=== PATIENT | male | born 1935 | race Caucasian/White ===

== ENCOUNTER 2023-06-15 05:50 | Outpatient (REF) | payer MEDICARE, SELFPAY ==
[2023-06-15 09:29] LABS: Estimated Average Glucose 220 mg/dL; Glycohemoglobin A1C 9.3 % (4.5-6.2)
[2023-06-15 10:01] LABS: Anion Gap 10.9; BUN Creatinine Ratio 14.6; Calcium 9.6 mg/dL (8.5-10.1); Carbon Dioxide 29.6 mmol/L (21.0-32.0); Chloride 103 mmol/L (98-107); Chol HDL Ratio 3.6; Cholesterol 137 mg/dL (<=200); Estimated GFR (African America 49 (>=60); Estimated GFR (Non-African Ame 40 (>=60); Glucose 263 mg/dL (74-106); HDL Cholesterol 38 mg/dL (40-60); Potassium 3.5 mmol/L (3.5-5.1); Sodium 140 mmol/L (136-145); Thyroid Stimulating Hormone 6.897 uIU/mL (0.358-3.740); Triglycerides 157 mg/dL (<=150); VLDL CHOLESTEROL 31.4 mg/dL
== END 2023-06-15 05:51 | disposition home or self-care (01) ==
LOC: LAB 05:50
DX: I50.32 Chronic diastolic (congestive) heart failure (principal); E11.22 Type 2 diabetes mellitus with diabetic chronic kidney disease; I48.20 Chronic atrial fibrillation, unspecified; N18.30 Chronic kidney disease, stage 3 unspecified; D50.0 Iron deficiency anemia secondary to blood loss (chronic)
CPT/HCPCS: 36415; 80048; 80061; 82306; 83036; 84443

== ENCOUNTER 2023-07-29 01:52 | Outpatient (REF) | payer MEDICARE, SELFPAY ==
--- OUTSIDE RECORDS SUMMARY | 2023-07-29 01:57 | XMS_ITS | CCD ---
Author Name Unknown Address [address] [employer] division of [employer] [facility] [address] [place] [address] Organization [facility] Care Team Providers Care Italian Tutor Name Role Phone Pastor, Talia Stipe Primary Care Provider SHARIFA MENON Referring Unavailable PASTOR, TALIA STIPE Primary Care Unavailable PASTOR, TALIA STIPE Referring Unavailable PASTOR, TALIA STIPE Primary Care Unavailable SHARIFA MENON Referring Unavailable PASTOR, TALIA STIPE Primary Care Unavailable ALLYSSAGUSHARIFA HALE Referring Unavailable PASTOR, TALIA STIPE Primary Care Unavailable PASTOR, TALIA STIPE Referring Unavailable PASTOR, TALIA STIPE Primary Care Unavailable ELIZABETH HERNANDEZ Referring Unavailable PASTOR, TALIA STIPE Primary Care Unavailable ERICAUSELIZABETH CHAPA Referring Unavailable PASTOR, TALIA STIPE Primary Care Unavailable ELIZABETH HERNANDEZ Referring Unavailable PASTOR, TALIA STIPE Primary Care Unavailable ERICAUSELIZABETH CHAPA K Referring Unavailable PASTOR, TALIA STIPE Primary Care Unavailable PASTOR, TALIA STIPE Referring Unavailable PASTOR, TALIA STIPE Primary Care Unavailable DA BAINSLEOBARDO KENDALL Referring Unavaila ble PASTOR, TALIA STIPE Primary Care Unavailable DA BAINS-LEOBARDO STEVENS Attending Unavaila ble DA BAINS-LEOBARDO STEVENS Referring Unavaila ble PASTOR, TALIA STIPE Primary Care Unavailable REBECA ORELLANA Attending Unavailable REBECA ORELLANA Referring Unavailable PASTOR, TALIA STIPE Primary Care Unavailable PASTOR, TALIA STIPE Primary Care Unavailable PASTOR, TALIA STIPE Consulting Unavailable PASTOR, TALIA STIPE Admitting Unavailable PASTOR, TALIA STIPE Attending Unavailable ELIZABETH HERNANDEZ Consulting Unavailable PASTOR, TALIA STIPE Primary Care Unavailable PASTOR, TALIA STIPE Consulting Unavailable PASTOR, TALIA STIPE Admitting Unavailable TALIA PASTOR Attending Unavailable ANDREW DUNCAN Consulting Unavailable GURU ARRIAGA Consulting Unavailable JAVIER DEVRIES Attending Unavailable TALIA PASTOR Primary Care Unavailable TALIA PASTOR Primary Care Unavailable JOSH HESS Attending Unavailable TALIA PASTOR Consulting Unavailable Allergies Allergy Classification Reported Allergen(s) Allergy Type Date of Onset Reaction(s) Facility (3 sources) diphenhydrAMINE Drug Allergy 04-19-2012 [place], [place] Medications Current Medications Medication Drug Class(es) Dates Sig (Normalized) Sig (Original) acetaminophen 325 mg oral tablet (4 sources) Start: 03-07-2019 650 mg, Oral, EVERY 4 HOURS PRN, Pain Mild (1-3), Fever, For temp greater than 100.5 F (38 C), Starting Tue03/07/19 at 2122 Maximum dose of acetaminophen is 4000 mg from all sources in 24 hours. take 2 tablets by [facility] every four hours as needed for fever acetaminophen (TYLENOL) 325 MG tablet Ta ke 650 mg by mouth every 4 hours as needed for Fever 0 Active albuterol 0.83 mg/ml inhalant solution (1 source) beta2-Adrenergic Agonist Start: 03-08-2019 2.5 mg, Nebulization, EVERY 4 HOURS WHILE AWAKE, First dose on Jenn 03/08/19 at 0800 atorvastatin 40 mg oral tablet (5 sources) HMG-CoA Reductase Inhibitor Start: 10-31-2017 End: 03-07-2019 take 40 mg by mouth once daily 40 mg, Oral, DAILY, First dose on Jenn 03/08/19 at 0900 ciprofloxacin 250 mg oral tablet (3 sources) Quinolone Antimicrobial Start: 03-10-2019 End: 03-17-2019 take 1 tablet by mouth every twelve hours ciprofloxacin (CIPRO) 250 MG tablet Take 1 tablet by mouth every 12 hours for 7 days 14 tablet 0 03/10/2019 03/17/2019 Active Start: 03-10-2019 ciprofloxacin (CIPRO) tablet 250 mg 24 hr dilTIAZem hydrochloride 240 mg extended release oral capsule (5 sources) Calcium Channel Gregg Start: 05-12-2015 End: 03-07-2019 take 240 mg by mouth once daily 240 mg, Oral, DAILY, First dose on Jenn 03/08/19 at 0900 Do not crush or break. take 1 tablet by mouth four time s daily diltiazem (CARDIZEM) 60 MG tablet Take 60 mg by mouth 4 times daily 0 Active doxazosin 2 mg oral tablet (3 sources) alpha-Adrenergic Gregg take 1 tablet by mouth once daily doxazosin (CARDURA) 2 MG tablet Take 2 mg by mouth nightly 0 Active finasteride 5 mg oral tablet (4 sources) 5-alpha Reductase Inhibitor Start: 10-20-19 take 1 tablet by mouth once daily finasteride (PROSCAR) 5 MG tablet Take 5 mg by mouth daily 10/19/2018 Active furosemide 40 mg oral tablet (5 sources) Loop Diuretic Start: 12-14-19 End: 03-07-20 take 40 mg by mouth once daily 40 mg, Oral, DAILY, First dose on Jenn 03/08/19 at 0900 take 1 tablet by mouth twice rica ly furosemide (LASIX) 40 MG tablet Take 40 mg by mouth 2 times daily 0 Active take 1 tablet by mouth three marcos es daily furosemide (LASIX) 40 MG tablet Take 40 mg by mouth 3 times daily 0 Active glucagon (rdna) 1 mg injection (1 source) Antihypoglycemic Agent Start: 03-07-2019 take 1 mL intravenous route every hour 1 mg, Intramuscular, PRN, Low blood sugar, Blood glucose less than 70 mg/dL and patient NOT ALERT or NPO and does not have IV access., Starting Tue03/07/19 at 2122 After administration, attempt intravenous access and start D5W at 100 mL/hr. Repeat blood glucose in 15 minutes x2 and notify provider. 150 ml glucose 50 mg/ml injection (3 sources) Start: 03-07-2019 15 g, Oral, PRN, Low blood sugar, Starting Tue03/07/19 at 2122 If blood glucose less than 50 mg/dL and patient ALERT and TOLERATING PO, give 2 tubes glucose gel. If blood glucose less than 70 mg/dL and patient ALERT and TOLERATING PO, give 1 tube glucose gel. Repeat blood glucose in 15 minutes. If blood glucose is less than 70 mg/dL, repeat treatment and recheck blood glucose in 15 minutes x2 and notify provider. Start: 03-07-2019 12.5 g, Intrav enous, PRN, Low blood sugar, Blood glucose less than 70 mg/dL and patient NOT ALERT or NPO., Starting Tue03/07/19 at 2122 If patient does not respond within 5 minutes, repeat dose x1. Start D5W at 100 mL/hour until ordering provider can be reached. Repeat blood glucose in 15 minutes. If blood glucose is less than 70 mg/dL, repeat treatment and recheck blood glucose in 15 minutes x2. If using Glucostabilizer, dose as instructed per system. Start: 03-07-2019 100 mL/hr, Int ravenous, at 100 mL/hr, PRN, Low blood sugar, Starting Tue03/07/19 at 2122 Start infusion following administration of dextrose 50% or glucagon. 12 hr guaiFENesin 600 mg extended release oral tablet (3 sources) take 1 tablet by mouth once daily guaiFENesin (MUCINEX) 600 MG extended release tablet Take 600 mg by mouth daily 0 Active insulin glargine 100 unt/ml injectable solution (9 sources) Insulin Analog Start: 9 inject 10 [IU] by subcutaneous injection once daily in the morning 10 Units, Subcutaneous, EVERY MORNING, First dose on Tue03/08/19 at 0900 Substituted for Insulin glargine U-300 (TOUJEO SOLOSTAR). Start: 03-07-2019 inject 8 [IU] by sub cutaneous injection once daily 8 Units, Subcutaneous, NIGHTLY, First dose on Tue03/07/19 at 2145 Start: 01-20-2018 End: 03-07-2019 insulin glargine (TOUJEO KB OSTAR) 300 UNIT/ML injection pen 10 units am, 8 units bedtime 3 pen 11 01/20/2018 03/07/2019 Discontinued (DOSE ADJUSTMENT) insulin glargine (TOUJEO MAX SOLOSTAR) 300 UNIT/ML injection pen Inject 13 Units into the skin nightly 0 Active insulin glargine (TOUJEO SOLOSTAR) 300 UNIT/ML injection pen Inject 18 Units into the skin every morning 0 Active insulin lispro 100 unt/ml injectable solution (2 sources) Insulin Analog Start: 03-08-2019 0-6 Units, Sub cutaneous, 3 TIMES DAILY WITH MEALS, First dose on Tue03/08/19 at 0800 Low Dose Correction Algorithm Glucose: Dose: 70-139 No Insulin 140-199 1 Unit 200-249 2 Units 250-299 3 Units 300-349 4 Units 350-399 5 Units 400 and above 6 Units Start: 03-07-2019 0-3 Units, Subcutaneous, NIG HTLY, First dose on Tue03/07/19 at 2145 If continuous tube feedings/TPN/NPO, give correction dose based on result, no reduction in dose. If eating or bolus tube feeding: Low Dose Bedtime Correction Algorithm Glucose: Dose: 70- 139 No Insulin 140-249 1 Unit 250-349 2 Units 350 and above 3 Units linagliptin 5 mg oral tablet (1 source) Dipeptidyl Peptidase 4 Inhibitor Start: 03-08-2019 take 5 mg by mouth once daily 5 mg, Oral, DAILY, First dose on Tue03/08/19 at 0900 Substituted for SITagliptin (JANUVIA). lisinopril 20 mg oral tablet (5 sources) Angiotensin Converting Enzyme Inhibitor Start: 03-08-2019 take 40 mg by mouth once daily 40 mg, Oral, DAILY, First dose on Tue03/08/19 at 0900 Start: 04-25-2017 End: 03-07-2019 take 1 tablet by mouth once daily lisinopril (PRINIVIL;ZESTRIL) 40 MG tablet TAKE 1 TABLET BY MOUTH DAILY 90 tablet 3 04/25/2017 03/07/2019 Discontinued (DOSE ADJUSTMENT) take 1 tablet by bette th once daily lisinopril (PRINIVIL;ZESTRIL) 30 MG tablet Indications: hold for SBP Take 30 mg by mouth daily Indications: hold for SBP 0 Active magnesium hydroxide 80 mg/ml oral suspension (1 source) Start: 03-07-2019 take 30 mL by mouth once daily as needed for constipation 30 mL, Oral, DAILY PRN, Constipation, Starting Tue03/07/19 at 2122 First line therapy for constipation. magnesium oxide 400 mg oral tablet (4 sources) Start: 03-08-2019 take 400 mg by mouth once daily 400 mg, Oral, DAILY, First dose on Jenn 03/08/19 at 0900 Start: 02-15-2018 take 1 tablet by bette th once daily MAGNESIUM-OXIDE 400 (241.3 Mg) MG TABS tablet Indications: Hypomagnesemia TAKE 1 TABLET BY MOUTH DAILY 30 tablet 11 02/15/2018 Active 24 hr metoprolol succinate 100 mg extended release oral tablet (4 sources) beta-Adrenergic Gregg Start: 07-27-2017 take 1 tablet by mouth once daily metoprolol succinate (TOPROL XL) 100 MG extended release tablet TAKE 1 TABLET BY MOUTH DAILY 90 tablet 3 07/27/2017 Active mirtazapine 30 mg oral tablet (3 sources) take 1 tablet by mouth once daily mirtazapine (REMERON) 30 MG tablet Take 30 mg by mouth nightly 0 Active 2 ml ondansetron 2 mg/ml injection (1 source) Serotonin-3 Receptor Antagonist Start: 03-07-2019 4 mg, Intravenous, EVERY 6 HOURS PRN, Nausea, Starting Tue03/07/19 at 2121 microencapsulated potassium chloride 20 meq extended release oral tablet (4 sources) take 1 tablet by mouth once daily, then take 1 tablet by mouth potassium chloride (KLOR-CON M) 20 MEQ extended release tablet Take 20 mEq by mouth daily 0 Active End: 03-27-2019 take 20 mEq by mouth once daily potassium chloride (KLOR-CON) 20 MEQ packet Take 20 mEq by mouth daily 0 03/27/2019 Discontinued (Alternate therapy) SITagliptin 50 mg oral tablet (3 sources) Dipeptidyl Peptidase 4 Inhibitor Start: 10-26-2018 take 1 tablet by mouth once daily SITagliptin (JANUVIA) 50 MG tablet Take 1 tablet by mouth daily 90 tablet 3 10/26/2018 Active 3 ml sodium chloride 9 mg/ml injection (2 sources) Start: 03-07-2019 10 mL, Intravenous, EVERY 12 HOURS SCHEDULED (2 times per day), First dose on Tue03/07/19 at 2145 Start: 03-07-2019 take 10 mL intraveno us route once as needed 10 mL, Intravenous, PRN, Line Care, After every IV line use, Starting Tue03/07/19 at 2 tamsulosin hydrochloride 0.4 mg oral capsule (5 sources) alpha-Adrenergic Gregg Start: 03-09-2019 take 2 capsules by mouth once daily tamsulosin (FLOMAX) 0.4 MG capsule Take 2 capsules by mouth daily 30 capsule 3 03/09/2019 Active Start: 03-08-2019 take 0.8 mg by mouth once andreea y 0.8 mg, Oral, DAILY, First dose on Jenn 03/08/19 at 0900 Do not crush or break. Start: 12-21-2018 End: 03-07-2019 take 2 capsules by mouth once daily tamsulosin (FLOMAX) 0.4 MG capsule TAKE 2 CAPSULES BY MOUTH DAILY 60 capsule 0 12/21/2018 03/07/2019 Discontinued (LIST CLEANUP) vitamin e d-alpha 400 unt oral capsule (4 sources) Start: 03-08-2019 take 400 [IU] by mouth once daily 400 Units, Oral, DAILY, First dose on Jenn 03/08/19 at 0900 ziprasidone 20 mg oral capsule (1 source) Atypical Antipsychotic Start: 03-08-2019 take 20 mg by mouth twice daily at mealtime 20 mg, Oral, 2 TIMES DAILY WITH MEALS, First dose on Jenn 03/08/19 at 0800 May cause prolongation of QT interval. &nb sp;Take with food. Completed/Discontinued Medications Medication Drug Class(es) Dates Sig (Normalized) Sig (Original) azithromycin (ZITHROMAX) 500 mg in D5W 250ml addavial (1 source) Start: 03-07-2019 End: 03-07-2019 azithromycin (ZITHROMAX) 500 mg in D5W 250ml addavial cefTRIAXone (ROCEPHIN) 1 g IVPB in 50 mL D5W minibag (1 source) Start: 03-07-2019 End: 03-07-2019 cefTRIAXone (ROCEPHIN) 1 g IVPB in 50 mL D5W minibag digoxin 0.125 mg oral tablet (2 sources) Cardiac Glycoside Start: 05-18-2015 End: 03-10-2019 take 125 ug by mouth once daily 125 mcg, Oral, DAILY, First dose on Jenn 03/08/19 at 0900 fenofibrate 145 mg oral tablet (6 sources) Peroxisome Proliferator Receptor alpha Agonist Start: 03-12-2019 End: 03-27-2019 take 1 tablet by mouth once daily fenofibrate (TRICOR) 145 MG tablet TAKE 1 TABLET BY MOUTH EVERY DAY 90 tablet 3 03/12/2019 03/27/2019 Discontinued (DOSE ADJUSTMENT) Start: 03-08-2019 take 160 mg by mouth once daily 160 mg, Oral, DAILY, First dose on Jenn 03/08/19 at 0900 Substituted for Fenofibrate (Non-Formulary Dose). Start: 06-22-2017 End: 03-07-2019 take 1 tablet by mouth once daily fenofibrate (TRICOR) 145 MG tablet TAKE 1 TABLET BY MOUTH EVERY DAY 90 tablet 3 06/22/2017 03/07/2019 Discontinued (LIST CLEANUP) 1 ml haloperidol 5 mg/ml injection (1 source) Typical Antipsychotic Start: 03-07-2019 End: 03-07-2019 take 5 mg intravenous route once as needed 5 mg, Intravenous, ONCE PRN, Agitation, agitation, Starting 03/07/19 at 2122, For 1 dose IM route of administration preferred. Because of the risk of TdP and QT prolongation, ECG monitoring is recommended if haloperidol is given IV. 3 ml insulin, aspart, human 100 unt/ml pen injector (10 sources) Insulin Analog Start: 01-20-2018 End: 03-07-2019 insulin aspart (NOVOLOG FLEXPEN) 100 UNIT/ML injection pen 5 units breakfast, 3 units dinner. 5 pen 3 01/20/2018 03/07/2019 Discontinued (DOSE ADJUSTMENT) insulin aspart ( NOVOLOG) 100 UNIT/ML injection vial Inject 6 Units into the skin daily (with breakfast) 0 Active insulin aspart ( NOVOLOG) 100 UNIT/ML injection vial Inject 8 Units into the skin Daily with lunch 0 Active insulin aspart ( NOVOLOG) 100 UNIT/ML injection vial Inject 4 Units into the skin Daily with supper 0 Active lidocaine hydrochloride 0.02 mg/mg topical gel (1 source) Antiarrhythmic, Amide Local Anesthetic Start: 03-16-2019 End: 03-16-2019 lidocaine (XYLOCAINE) 2 % jelly Problems Active Problems Problem Classification Problem Date Documented Date Episodic/Chronic Acute and unspecified renal failure (5 sources) Acute injury of kidney; Translations: [VANESA (acute kidney injury) (HCC)] Onset: 01-06-2015 03-11-2019 Cardiac dysrhythmias (8 sources) Supraventricular tachycardia; Translations: [Atrial fibrillation] Onset: 01-06-2015 03-08-2019 Chronic Chronic kidney disease (4 sources) Chronic kidney disease stage 3; Translations: [CKD (chronic kidney disease) stage 3, GFR 30-59 ml/min] Onset: 07-03-2018 03-08-2019 Chronic Congestive heart failure; nonhypertensive (11 sources) Chronic diastolic heart failure; Translations: [Congestive heart failure] Onset: 12-06-2018 03-08-2019 Chronic Deficiency and other anemia (4 sources) Anemia due to chronic blood loss; Translations: [Chronic blood loss anemia] Onset: 12-11-2018 03-08-2019 Chronic Diabetes mellitus without complication (4 sources) Type 2 diabetes mellitus without complication; Translations: [Uncontrolled type 2 diabetes mellitus without complication, with long-term current use of insulin] Onset: 01-06-2015 03-08-2019 Chronic Disorders of lipid metabolism (3 sources) Hypercholesterolemia; Translations: [Hypercholesteremia] Onset: 06-05-2018 12-11-2018 Chronic Diverticulosis and diverticulitis (3 sources) Diverticular disease; Translations: [Diverticulosis] Onset: 07-11-2018 07-11-2018 Chronic Essential hypertension (4 sources) Benign essential hypertension; Translations: [Benign essential hypertension] 03-08-2019 Chronic Heart valve disorders (3 sources) Tricuspid valve regurgitation; 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] Onset: 07-03-2018 12-11-2018 Chronic Other and ill-defined heart disease (3 sources) Bilateral enlargement of atria; 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] Onset: 07-03-2018 12-11-2018 Chronic Other diseases of kidney and ureters (3 sources) Cyst of kidney; Translations: [Renal cyst] Onset: 08-18-2012 08-18-2012 Other nutritional; endocrine; and metabolic disorders (3 sources) Hypomagnesemia; Translations: [Hypomagnesemia] Onset: 02-14-2017 02-14-2017 Chronic Pulmonary heart disease (4 sources) Pulmonary hypertension; Translations: [Mild pulmonary hypertension] Onset: 07-03-2018 03-08-2019 Chronic Residual codes; unclassified (4 sources) Device in situ; 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] Onset: 09-21-2018 03-08-2019 Unclassified (3 sources) Body mass index 20-24 - normal; Translations: [Body mass index (BMI) of 23.0-23.9 in adult] Onset: 02-21-2015 02-21-2015 Urinary tract infections (1 source) Acute cystitis; Translations: [Acute cystitis without hematuria] Episodic Past or Other Problems Problem Classification Problem Date Documented Date Episodic/Chronic Acute posthemorrhagic anemia (3 sources) Acute posthemorrhagic anemia; Translations: [Acute blood loss anemia] Onset: 07-21-2018 07-21-2018 Episodic Fluid and electrolyte disorders (3 sources) Hypokalemia; Translations: [Hypokalemia] Onset: 02-14-2017 Resolved: 12-11-2018 12-11-2018 Episodic Genitourinary symptoms and ill-defined conditions (8 sources) H/O: kidney disease; Translations: [Retention of urine] Onset: 01-08-2015 01-08-2015 Episodic Pneumonia (except that caused by tuberculosis or sexually transmitted disease) (5 sources) Pneumonia; Translations: [Infective pneumonia] Onset: 03-07-2019 03-08-2019 Episodic Results Test Name Value Interpretation Reference Range Facil [facility] Basic Metabolic Panelon 10-0 Anion gap [Moles/Vol] 13 mmol/L 9 - 17 mmol/L [place] Bun/Cre Ratio NOT REPORTED [place], [place] Calcium [Mass/Vol] 9.3 mg/dL 8.6 - 10. 4 mg/dL [place] Chloride [Moles/Vol] 99 mmol/L 98 - 107 mmol/L [place] CO2 [Moles/Vol] 24 mmol/L 20 - 31 mmol/L [place] Creatinine [Mass/Vol] 2.75 mg/dL High 0.7 - 1.2 mg/dL [place] GFR 27 mL/min Low >60 [place], [place] GFR Non- 22 mL/min Low >60 [place] GFR/1.73 sq M predicted among non-blacks MDRD (S/P/Bld) [Vol rate/Area] NOT REPORTED [place] GFR/1.73 sq M predicted among non-blacks MDRD (S/P/Bld) [Vol rate/Area] [place], [place] Comment on above: Average GFR for 70 o r more years old: 75 mL/min/1.73sq m Chronic Kidney Disease: <60 mL/min/1.73sq m Kidney failure: <15 mL/min/1.73sq m eGFR calculated using average adult body mass. Additional eGFR calculator available at: http://www.[employer]/multiple_crcl_2012.htm Glucose [Mass/Vol] 92 mg/dL 70 - 99 mg/dL [place], [place] Interpretation and review of laboratory results Abnormal [place] Potassium [Moles/Vol] 5.2 mmol/L 3.7 - 5.3 mmol/L [place] Sodium [Moles/Vol] 136 mmol/L 135 - 144 mmol/L [place] Urea nitrogen [Mass/Vol] 61 mg/dL High 8 - 23 mg/dL [place] Basic Metabolic Profon 03-27 (cont.) Normal [facility] Comment on above: Result Comment: Aver age GFR for 70 or more years old: 75 mL/min/1.73sq m Chronic Kidney Disease: <60 mL/min/1.73sq m Kidney failure: <15 mL/min/1.73sq m eGFR calculated using average adult body mass. Additional eGFR calculator available at: http://www.[employer]/multiple_crcl_2012.htm Performed By: #### H H, BMP #### [facility] [address] [facility] [facility]. [place], [place] [id number] Clinical Quality Assurance Specialist: Con Oseguera MD Anion gap [Moles/Vol] 13 mmol/L Normal 9-17 [facility] Comment on above: Performed By: #### H H, BMP #### [facility] [address] [facility] [place], [place] [id number] Clinical Quality Assurance Specialist: Con Oseguera MD Calcium [Mass/Vol] 9.3 mg/dL Normal 8.6-10.4 [facility] Comment on above: Performed By: #### H H, BMP #### [facility] [address] [facility] [place] [address] Clinical Quality Assurance Specialist: Con Oseguera MD Chloride [Moles/Vol] 99 mmol/L Normal 98-107 [facility] Comment on above: Performed By: #### H H, BMP #### [facility] [address] [place] [address] Clinical Quality Assurance Specialist: Con Oseguera MD CO2 [Moles/Vol] 24 mmol/L Normal 20-31 [facility] Comment on above: Performed By: #### H H, BMP #### [facility] [address] [place] [address] Clinical Quality Assurance Specialist: Con Oseguera MD Creatinine [Mass/Vol] 2.75 mg/dL High 0.70-1.20 [facility] Comment on above: Performed By: #### H H, BMP #### [facility] [address] [place] [address] Clinical Quality Assurance Specialist: Con Oseguera MD GFR, Amer 27 mL/min Low >60 [facility] Comment on above: Performed By: #### H H, BMP #### [facility] [address] [place] [address] Clinical Quality Assurance Specialist: Con Oseguera MD GFR,non Amer 22 mL/min Low >60 [facility] Comment on above: Performed By: #### H H, BMP #### [facility] [address] [place] [address] Clinical Quality Assurance Specialist: Con Oseguera MD Glucose [Mass/Vol] 92 mg/dL Normal 70-99 [facility] Comment on above: Performed By: #### H H, BMP #### [facility] [address] [place] [address] Clinical Quality Assurance Specialist: Con Oseguera MD Potassium [Moles/Vol] 5.2 mmol/L Normal 3.7-5.3 [facility] Comment on above: Performed By: #### H H, BMP #### [facility] [address] [place] [address] Clinical Quality Assurance Specialist: Con Oseguera MD Sodium [Moles/Vol] 136 mmol/L Normal 135-144 [facility] Comment on above: Performed By: #### H H, BMP #### [facility] [address] [place] [address] Clinical Quality Assurance Specialist: Con Oseguera MD Urea nitrogen [Mass/Vol] 61 mg/dL High 8-23 [facility] Comment on above: Performed By: #### H H, BMP #### [facility] [address] [place] [address] Clinical Quality Assurance Specialist: Con Oseguera MD BUN/CRE Ratio NOT REPORTED Normal 9-20 [facility] Comment on above: Performed By: #### H H, BMP #### [facility] [address] [place] [address] Clinical Quality Assurance Specialist: Con Oseguera MD Staging: NOT REPORTED Normal [facility] Comment on above: Performed By: #### H H, BMP #### [facility] [address] [place] [address] Clinical Quality Assurance Specialist: Con Oseguera MD CBC Auto Differentialon 10-0 Basophils (Bld) [#/Vol] 0.08 10*3/uL [facility] [place], [place] Basophils/100 WBC (Bld) 1 % 0 - 2 % [place] Differential Type NOT REPORTED [place] Eosinophils (Bld) [#/Vol] 0.39 10*3/uL [facility] [place], [place] Eosinophils/100 WBC (Bld) 5 % High 0 - 4 % [place] Erythrocyte distribution width (RBC) [Ratio] 28.8 % High 11.5 - 14.9 % [place] Hematocrit (Bld) [Volume fraction] 33.5 % Low 41 - 53 % [place] Hemoglobin (Bld) [Mass/Vol] 10.5 g/dL Low 13.5 - 17.5 g/dL [place] Interpretation and review of laboratory results Abnormal [place] Lymphocytes (Bld) [#/Vol] 2.00 10*3/uL [place] Lymphocytes/100 WBC (Bld) 26 % 24 - 44 % [place] MCH (RBC) [Entitic mass] 23.6 pg Low 26 - 34 pg [place] MCHC (RBC) [Mass/Vol] 31.3 g/dL 31 - 37 g/dL [place] MCV (RBC) [Entitic vol] 75.4 fL Low 80 - 100 fL [place] Monocytes (Bld) [#/Vol] 0.69 10*3/uL [place] Monocytes/100 WBC (Bld) 9 % High 1 - 7 % [place] Morphology Theo (Bld) [Interp] 1+ [place]IPTOCYTES [place] Morphology Theo (Bld) [Interp] 1+ ECHINOCYTES [place] Morphology Theo (Bld) [Interp] ANISOCYTOSIS PRESENT [place] Platelet mean volume (Bld) [Entitic vol] 8.9 fL 6 - 12 fL [place] Platelets (Bld) [#/Vol] NOT REPORTED [place] Platelets (Bld) [#/Vol] 305 10*3/uL [place] RBC (Bld) [#/Vol] 4.44 10*6/uL Low 4.5 - 5.9 m/uL [place] RBC morphology finding Nom (Bld) NOT REPORTED [place] Segmented neutrophils/100 WBC (Bld) 59 % 36 - 66 % [place] Segs Absolute 4.54 [place] WBC (Bld) [#/Vol] NOT REPORTED per 100 WBC [place] WBC (Bld) [#/Vol] 7.7 10*3/uL [place] WBC Morphology NOT REPORTED [facility] [place] CBC with Diffon 03-27-2019 Abs. Basophil 0.08 k/uL Normal 0.0-0.2 [facility] Comment on above: Performed By: #### H H, BMP #### [facility] [place] [address] Clinical Quality Assurance Specialist: Con Oseguera MD Abs.Neutrophil (Seg) 4.54 k/uL Normal 1.3-9.1 [facility] Comment on above: Performed By: #### H H, BMP #### [facility] [place] [address] Clinical Quality Assurance Specialist: Con Oseguera MD Basophils/100 WBC (Bld) 1 % Normal 0-2 [facility] Comment on above: Performed By: #### H H, BMP #### [facility] [place] [address] Clinical Quality Assurance Specialist: Con Oseguera MD Eosinophils (Bld) [#/Vol] 0.39 10*3/uL Normal 0.0-0.4 [facility] Comment on above: Performed By: #### H H, BMP #### [facility] [address] [place] [address]. [place] [address] Clinical Quality Assurance Specialist: Con Oseguera MD Eosinophils/100 WBC (Bld) 5 % High 0-4 [facility] Comment on above: Performed By: #### H H, BMP #### [facility] [place] [address] Clinical Quality Assurance Specialist: Con Oseguera MD Lymphocytes (Bld) [#/Vol] 2.00 10*3/uL Normal 1.0-4.8 [facility] Comment on above: Performed By: #### H H, BMP #### [facility] [address] [place] [address] Clinical Quality Assurance Specialist: Con Oseguera MD Lymphocytes/100 WBC (Bld) 26 % Normal 24-44 [facility] Comment on above: Performed By: #### H H, BMP #### [facility] [address] [place] [address] Clinical Quality Assurance Specialist: Con Oseguera MD Monocytes (Bld) [#/Vol] 0.69 10*3/uL Normal 0.1-1.3 [facility] Comment on above: Performed By: #### H H, BMP #### [facility] [place] [address] Clinical Quality Assurance Specialist: Con Oseguera MD Monocytes/100 WBC (Bld) 9 % High 1-7 [facility] Comment on above: Performed By: #### H H, BMP #### [facility] [address] [facility] [address] Clinical Quality Assurance Specialist: Con Oseguera MD Morphology Theo (Bld) [Interp] ANISOCYTOSIS PRESENT Normal [facility] Comment on above: Result Comment: 1+ ELLIPTOCYTES 1+ ECHINOCYTES Performed By: #### H H, BMP #### [facility] [place] [address] Clinical Quality Assurance Specialist: Con Oseguera MD Neutrophil (Seg) 59 % Normal 36-66 [facility] Comment on above: Performed By: #### H H, BMP #### [facility] [address] [facility] [address] Clinical Quality Assurance Specialist: Con Oseguera MD Erythrocyte distribution width (RBC) [Ratio] 28.8 % High 11.5-14.9 [facility] Comment on above: Performed By: #### H H, BMP #### [facility] [address] [facility] [address] Clinical Quality Assurance Specialist: Con Oseguera MD Hematocrit (Bld) [Volume fraction] 33.5 % Low 41-53 [facility] Comment on above: Performed By: #### H H, BMP #### [facility] [address] [place] [address] Clinical Quality Assurance Specialist: Con Oseguera MD Hemoglobin (Bld) [Mass/Vol] 10.5 g/dL Low 13.5-17.5 [facility] Comment on above: Performed By: #### H H, BMP #### [facility] [address] [facility] [place] [address] Clinical Quality Assurance Specialist: Con Oseguera MD MCH (RBC) [Entitic mass] 23.6 pg Low 26-34 [facility] Comment on above: Performed By: #### H H, BMP #### [facility] [address] [facility] [place] [address] Clinical Quality Assurance Specialist: Con Oseguera MD MCHC (RBC) [Mass/Vol] 31.3 g/dL Normal 31-37 [facility] Comment on above: Performed By: #### H H, BMP #### [facility] [address] [facility] [place] [address] Clinical Quality Assurance Specialist: Con Oseguera MD MCV (RBC) [Entitic vol] 75.4 fL Low 80-100 [facility] Comment on above: Performed By: #### H H, BMP #### [facility] [address] [facility] [place] [address] Clinical Quality Assurance Specialist: Con Oseguera MD Platelet mean volume (Bld) [Entitic vol] 8.9 fL Normal 6.0-12.0 [facility] Comment on above: Performed By: #### H H, BMP #### [facility] [address] [facility] [address] Clinical Quality Assurance Specialist: Con Oseguera MD Platelets (Bld) [#/Vol] 305 10*3/uL Normal 150-450 [facility] Comment on above: Performed By: #### H H, BMP #### [facility] [address] [facility] [place] [address] Clinical Quality Assurance Specialist: Con Oseguera MD RBC (Bld) [#/Vol] 4.44 10*6/uL Low 4.5-5.9 [facility] Comment on above: Performed By: #### H H, BMP #### [facility] [place] [address] Clinical Quality Assurance Specialist: Con Oseguera MD WBC (Bld) [#/Vol] 7.7 10*3/uL Normal 3.5-11.0 [facility] Comment on above: Performed By: #### H H, BMP #### [facility] [address] [place] [address]. [place] [address] Clinical Quality Assurance Specialist: Con Oseguera MD Abs.Imm.Granulocyte NOT REPORTED Normal 0.00-0.30 [facility] Comment on above: Performed By: #### H H, BMP #### [facility] [place] [address] Clinical Quality Assurance Specialist: Con Oseguera MD Auto Diff Performed NOT REPORTED Normal [facility] Comment on above: Performed By: #### H H, BMP #### [facility] [place] [address] Clinical Quality Assurance Specialist: Con Oseguera MD Immature granulocytes (Bld) [#/Vol] NOT REPORTED Normal 0 [facility] Comment on above: Performed By: #### H H, BMP #### [facility] [place] [address] Clinical Quality Assurance Specialist: Con Oseguera MD NRBC Automated NOT REPORTED Normal [facility] Comment on above: Performed By: #### H H, BMP #### [facility] [address] [facility] [place] [address] Clinical Quality Assurance Specialist: Con Oseguera MD Platelets (Bld) [#/Vol] NOT REPORTED Normal [facility] Comment on above: Performed By: #### H H, BMP #### [facility] [address] [facility] [place] [address] Clinical Quality Assurance Specialist: Con Oseguera MD RBC morphology finding Nom (Bld) NOT REPORTED Normal [facility] Comment on above: Performed By: #### H H, BMP #### [facility] [address] [facility] [place] [address] Clinical Quality Assurance Specialist: Con Oseguera MD WBC Morphology NOT REPORTED Normal [facility] Comment on above: Performed By: #### H H, BMP #### [facility] [address] [facility] [place] [address] Clinical Quality Assurance Specialist: Con Oseguera MD Otheron 03-27-2019 Immature granulocytes (Bld) [#/Vol] NOT REPORTED [facility] [place] Microscopic Urinalysison Amorphous, UA NOT REPORTED None [facility] [place] Bacteria, UA NOT REPORTED None [facility] [place] Crystals UA NOT REPORTED None /HPF [facility] [place] Epithelial Cells UA 0 TO 2 /HPF [facility] [place] Mucus, UA NOT REPORTED None [facility] [place] Other Observations UA NOT REPORTED NOT REQ. [facility] [place] RBC (U) [#/Vol] 20 TO 50 /HPF [facility] [place] Renal Epithelial, Urine NOT REPORTED 0 /HPF [facility] [place] Trichomonas, UA NOT REPORTED None [facility] [place] WBC, UA 0 TO 2 /HPF [facility] [place] Yeast, UA NOT REPORTED None [facility] [place] - [facility] [place] Otheron 09-20-2019 Casts UA /LPF [facility] [place] UA w/Reflex Cultureon 2018 Acetoacetic Acid,Ur Negative Normal NEG [facility] Comment on above: Performed By: #### H H, BMP #### [facility] [address] [place] [address] Clinical Quality Assurance Specialist: Con Oseguera MD Bilirubin, SemiQt,Ur Negative Normal NEG [facility] Comment on above: Performed By: #### H H, BMP #### [facility] [address] [place] [address] Clinical Quality Assurance Specialist: Con Oseguera MD Color (U) YELLOW Normal YEL [facility] Comment on above: Performed By: #### H H, BMP #### [facility] [address] [place] [address] Clinical Quality Assurance Specialist: Con Oseguera MD Glucose Ql (U) Negative Normal NEG [facility] Comment on above: Performed By: #### H H, BMP #### [facility] [address] [place] [address] Clinical Quality Assurance Specialist: Con Oseguera MD Hemoglobin, Ur SMALL Abnormal NEG [facility] Comment on above: Performed By: #### H H, BMP #### [facility] [address] [place] [address] Clinical Quality Assurance Specialist: Con Oseguera MD Leukocyte esterase Test strip Ql (U) Negative Normal NEG [facility] Comment on above: Performed By: #### H H, BMP #### [facility] [address] [place] [address] Clinical Quality Assurance Specialist: Con Oseguera MD Nitrite,Ur Negative Normal NEG [facility] Comment on above: Performed By: #### H H, BMP #### [facility] [address] [place] [address] Clinical Quality Assurance Specialist: Con Oseguera MD pH (U) 6.5 [pH] Normal 5.0-8.0 [facility] Comment on above: Performed By: #### H H, BMP #### [facility] [address] [place] [address] Clinical Quality Assurance Specialist: Con Oseguera MD Protein Ql (U) Negative Normal NEG [facility] Comment on above: Performed By: #### H H, BMP #### [facility] [address] [place] [address] Clinical Quality Assurance Specialist: Con Oseguera MD Specific gravity (U) [Rel density] 1.008 Normal 1.000-1.030 [facility] Comment on above: Performed By: #### H H, BMP #### [facility] [address] [place] [address] Clinical Quality Assurance Specialist: Con Oseguera MD Turbidity CLEAR Normal CLEAR [facility] Comment on above: Performed By: #### H H, BMP #### [facility] [address] [facility] [place] [address] Clinical Quality Assurance Specialist: Con Oseguera MD Urobilinogen,Ur Normal Normal NORM [facility] Comment on above: Performed By: #### H H, BMP #### [facility] [address] [place] [address]. [place] [address] Clinical Quality Assurance Specialist: Con Oseguera MD Comment NOT REPORTED Normal [facility] Comment on above: Performed By: #### H H, BMP #### [facility] [place] [address] Clinical Quality Assurance Specialist: Con Oseguera MD Urinalysis Reflex to Culture on 03-16-2019 Bilirubin Urine Negative NEGATIVE [facility] [place] Color, UA YELLOW YELLOW [facility] [place] Glucose, Ur Negative NEGATIVE [facility] [place] Interpretation and review of laboratory results Abnormal [place], [place] Ketones Ql (U) Negative NEGATIVE [place] Leukocyte esterase Test strip Ql (U) Negative NEGATIVE [place] Nitrite, Urine Negative NEGATIVE [facility], [place] pH, UA 6.5 [place] Protein (U) [Mass/Vol] Negative NEGATIVE [place] Specific [place], UA 1.008 [place], [place] Turbidity UA CLEAR CLEAR [place] Urinalysis Comments NOT REPORTED [place], [place] Urine Hgb SMALL Abnormal NEGATIVE [place] Urobilinogen, Urine Normal Normal [place] Urinalysis,Microon 9 ----- Normal [facility] Comment on above: Performed By: #### H H, BMP #### [facility] [address] [place] [address] Clinical Quality Assurance Specialist: Con Oseguera MD Epithelial cells LM.HPF (Urine sed) [#/Area] 0 TO 2 Normal [facility] Comment on above: Performed By: #### H H, BMP #### [facility] [address] [place] [address] Clinical Quality Assurance Specialist: Con Oseguera MD RBC (U) [#/Vol] 20 TO 50 Normal [facility] Comment on above: Performed By: #### H H, BMP #### [facility] [address] [place] [address] Clinical Quality Assurance Specialist: Con Oseguera MD WBC (U) [#/Vol] 0 TO 2 Normal [facility] Comment on above: Performed By: #### H H, BMP #### [facility] [address] [place] [address] Clinical Quality Assurance Specialist: Con Oseguera MD Amorphous sediment LM Ql (Urine sed) NOT REPORTED Normal NONE [facility] Comment on above: Performed By: #### H H, BMP #### [facility] [address] [facility] [address] Clinical Quality Assurance Specialist: Con Oseguera MD Bacteria LM.HPF (Urine sed) [#/Area] NOT REPORTED Normal NONE [facility] Comment on above: Performed By: #### H H, BMP #### [facility] [address] [facility] [place] [address] Clinical Quality Assurance Specialist: Con Oseguera MD Casts LM.LPF (Urine sed) [#/Area] NOT REPORTED Normal [facility] Comment on above: Performed By: #### H H, BMP #### [facility] [address] [facility] [place] [address] Clinical Quality Assurance Specialist: Con Oseguera MD Crystals LM Nom (Urine sed) NOT REPORTED Normal NONE [facility] Comment on above: Performed By: #### H H, BMP #### [facility] [address] [facility] [place] [address] Clinical Quality Assurance Specialist: Con Oseguera MD Epithelial, Renal NOT REPORTED Normal 0 [facility] Comment on above: Performed By: #### H H, BMP #### [facility] [address] [facility] [place] [address] Clinical Quality Assurance Specialist: Con Oseguera MD Mucus Strands NOT REPORTED Normal NONE [facility] Comment on above: Performed By: #### H H, BMP #### [facility] [address] [facility] [place] [address] Clinical Quality Assurance Specialist: Con Oseguera MD Other Observations NOT REPORTED Normal NREQ [facility] Comment on above: Performed By: #### H H, BMP #### [facility] [address] [facility] [place] [address] Clinical Quality Assurance Specialist: Con Oseguera MD Trichomonas NOT REPORTED Normal NONE [facility] Comment on above: Performed By: #### H H, BMP #### [facility] [address] [place] [address] Clinical Quality Assurance Specialist: Con Oseguera MD Yeast LM Ql (Urine sed) NOT REPORTED Normal NONE [facility] Comment on above: Performed By: #### H H, BMP #### [facility] [address] [place] [address] Clinical Quality Assurance Specialist: Con Oseguera MD Basic Metab w/rfx MGon 03-13 (cont.) Normal [facility] Comment on above: Result Comment: Aver age GFR for 70 or more years old: 75 mL/min/1.73sq m Chronic Kidney Disease: <60 mL/min/1.73sq m Kidney failure: <15 mL/min/1.73sq m eGFR calculated using average adult body mass. Additional eGFR calculator available at: http://www.[employer]ageSocial/multiple_crcl_2012.htm Performed By: #### H H, BMP #### [facility] [address] [place] [address] Clinical Quality Assurance Specialist: Con Oseguera MD Anion gap [Moles/Vol] 12 mmol/L Normal -17 [facility] Comment on above: Performed By: #### H H, BMP #### [facility] [address] [place] [address] Clinical Quality Assurance Specialist: Con Oseguera MD Calcium [Mass/Vol] 9.2 mg/dL Normal 8.6-10.4 [facility] Comment on above: Performed By: #### H H, BMP #### [facility] [address] [place] [address] Clinical Quality Assurance Specialist: Con Oseguera MD Chloride [Moles/Vol] 105 mmol/L Normal 98-107 [facility] Comment on above: Performed By: #### H H, BMP #### [facility] [address] [place] [address] Clinical Quality Assurance Specialist: Con Oseguera MD CO2 [Moles/Vol] 26 mmol/L Normal 20-31 [facility] Comment on above: Performed By: #### H H, BMP #### [facility] [address] [place] [address] Clinical Quality Assurance Specialist: Con Oseguera MD Creatinine [Mass/Vol] 1.41 mg/dL High 0.70-1.20 [facility] Comment on above: Performed By: #### H H, BMP #### [facility] [address] [place] [address] Clinical Quality Assurance Specialist: Con Oseguera MD GFR, Amer 58 mL/min Low >60 [facility] Comment on above: Performed By: #### H H, BMP #### [facility] [address] [place] [address] Clinical Quality Assurance Specialist: Con Oseguera MD GFR,non Amer 48 mL/min Low >60 [facility] Comment on above: Performed By: #### H H, BMP #### [facility] [address] [place] [address] Clinical Quality Assurance Specialist: Con Oseguera MD Glucose [Mass/Vol] 90 mg/dL Normal 70-99 [facility] Comment on above: Performed By: #### H H, BMP #### [facility] [address] [place] [address] Clinical Quality Assurance Specialist: Con Oseguera MD Potassium [Moles/Vol] 4.1 mmol/L Normal 3.7-5.3 [facility] Comment on above: Performed By: #### H H, BMP #### [facility] [address] [place] [address] Clinical Quality Assurance Specialist: Con Oseguera MD Sodium [Moles/Vol] 143 mmol/L Normal 135-144 [facility] Comment on above: Performed By: #### H H, BMP #### [facility] [address] [facility] [place] [address] Clinical Quality Assurance Specialist: Con Oseguera MD Urea nitrogen [Mass/Vol] 19 mg/dL Normal 8-23 [facility] Comment on above: Performed By: #### H H, BMP #### [facility] [address] [facility] [place] [address] Clinical Quality Assurance Specialist: Con Oseguera MD BUN/CRE Ratio NOT REPORTED Normal 9-20 [facility] Comment on above: Performed By: #### H H, BMP #### [facility] [address] [facility] [place] [address] Clinical Quality Assurance Specialist: Con Oseguera MD Staging: NOT REPORTED Normal [facility] Comment on above: Performed By: #### H H, BMP #### [facility] [address] [facility] [place] [address] Clinical Quality Assurance Specialist: Con Oseguera MD Basic Metabolic Panel w/ Ref milagros to MGon 03-13-2019 Anion gap [Moles/Vol] 12 mmol/L 9 - 17 mmol/L [place] Bun/Cre Ratio NOT REPORTED [place], [place] Calcium [Mass/Vol] 9.2 mg/dL 8.6 - 10. 4 mg/dL [place] Chloride [Moles/Vol] 105 mmol/L 98 - 107 mmol/L [place] CO2 [Moles/Vol] 26 mmol/L 20 - 31 mmol/L [place] Creatinine [Mass/Vol] 1.41 mg/dL High 0.7 - 1.2 mg/dL [facility], [place] GFR 58 mL/min Low >60 [facility], [place] GFR Non- 48 mL/min Low >60 [place] GFR/1.73 sq M predicted among non-blacks MDRD (S/P/Bld) [Vol rate/Area] [place] Comment on above: Average GFR for 70 o r more years old: 75 mL/min/1.73sq m Chronic Kidney Disease: <60 mL/min/1.73sq m Kidney failure: <15 mL/min/1.73sq m eGFR calculated using average adult body mass. Additional eGFR calculator available at: http://www.[employer]Social/[employer]_crcl_2011.htm GFR/1.73 sq M predicted among non-blacks MDRD (S/P/Bld) [Vol rate/Area] NOT REPORTED [place] Glucose [Mass/Vol] 90 mg/dL 70 - 99 mg/dL [place], [place] Interpretation and review of laboratory results Abnormal [place] Potassium [Moles/Vol] 4.1 mmol/L 3.7 - 5.3 mmol/L [place] Sodium [Moles/Vol] 143 mmol/L 135 - 144 mmol/L [place] Urea nitrogen [Mass/Vol] 19 mg/dL 8 - 23 mg/dL [place] POC Glucose Fingerstickon Glucose [Mass/Vol] 195 mg/dL High 75 - 110 mg/dL [place] Interpretation and review of laboratory results Abnormal [place] Glucose [Mass/Vol] 79 mg/dL 75 - 110 mg/dL [place] Basic Metab w/rfx MGon 03-12 (cont.) Normal [facility] Comment on above: Result Comment: Aver age GFR for 70 or more years old: 75 mL/min/1.73sq m Chronic Kidney Disease: <60 mL/min/1.73sq m Kidney failure: <15 mL/min/1.73sq m eGFR calculated using average adult body mass. Additional eGFR calculator available at: http://www.[employer]_crcl_2011.htm Performed By: #### H Howie, BMP #### [facility] [address] [place] [address] Clinical Quality Assurance Specialist: Con Oumar, MD Anion gap [Moles/Vol] 11 mmol/L Normal 9-17 [facility] Comment on above: Performed By: #### H H, BMP #### [facility] [address] [place] [address] Clinical Quality Assurance Specialist: Con Oseguera MD Calcium [Mass/Vol] 9.2 mg/dL Normal 8.6-10.4 [facility] Comment on above: Performed By: #### H H, BMP #### [facility] [address] [place] [address] Clinical Quality Assurance Specialist: Con Oseguera MD Chloride [Moles/Vol] 108 mmol/L High 98-107 [facility] Comment on above: Performed By: #### H H, BMP #### [facility] [place] [address] Clinical Quality Assurance Specialist: Con Oseguera MD CO2 [Moles/Vol] 26 mmol/L Normal 20-31 [facility] Comment on above: Performed By: #### H H, BMP #### [facility] [address] [place] [address] Clinical Quality Assurance Specialist: Con Oseguera MD Creatinine [Mass/Vol] 1.41 mg/dL High 0.70-1.20 [facility] Comment on above: Performed By: #### H H, BMP #### [facility] [address] [place] [address] Clinical Quality Assurance Specialist: Con Oseguera MD GFR, Amer 58 mL/min Low >60 [facility] Comment on above: Performed By: #### H H, BMP #### [facility] [address] [place] [address] Clinical Quality Assurance Specialist: Con Oseguera MD GFR,non Amer 48 mL/min Low >60 [facility] Comment on above: Performed By: #### H H, BMP #### [facility] [address] [place] [address] Clinical Quality Assurance Specialist: Con Oseguera MD Glucose [Mass/Vol] 81 mg/dL Normal 70-99 [facility] Comment on above: Performed By: #### H H, BMP #### [facility] [address] [place] [address] Clinical Quality Assurance Specialist: Con Oseguera MD Potassium [Moles/Vol] 4.1 mmol/L Normal 3.7-5.3 [facility] Comment on above: Performed By: #### H H, BMP #### [facility] [address] [place] [address] Clinical Quality Assurance Specialist: Con Oseguera MD Sodium [Moles/Vol] 145 mmol/L High 135-144 [facility] Comment on above: Performed By: #### H H, BMP #### [facility] [address] [place] [address] Clinical Quality Assurance Specialist: Con Oseguera MD Urea nitrogen [Mass/Vol] 20 mg/dL Normal 8-23 [facility] Comment on above: Performed By: #### H H, BMP #### [facility] [address] [place] [address] Clinical Quality Assurance Specialist: Con Oseguera MD BUN/CRE Ratio NOT REPORTED Normal 9-20 [facility] Comment on above: Performed By: #### H H, BMP #### [facility] [address] [place] [address] Clinical Quality Assurance Specialist: Con Oseguera MD Staging: NOT REPORTED Normal [facility] Comment on above: Performed By: #### H H, BMP #### [facility] [address] [place] [address] Clinical Quality Assurance Specialist: Con Oseguera MD Basic Metabolic Panel w/ Ref milagros to MGon 03-12-2019 Anion gap [Moles/Vol] 11 mmol/L 9 - 17 mmol/L [place] Bun/Cre Ratio NOT REPORTED [place], [place] Calcium [Mass/Vol] 9.2 mg/dL 8.6 - 10. 4 mg/dL [place] Chloride [Moles/Vol] 108 mmol/L High 98 - 107 mmol/L [place] CO2 [Moles/Vol] 26 mmol/L 20 - 31 mmol/L [place] Creatinine [Mass/Vol] 1.41 mg/dL High 0.7 - 1.2 mg/dL [place] GFR 58 mL/min Low >60 [place] GFR Non- 48 mL/min Low >60 [place] GFR/1.73 sq M predicted among non-blacks MDRD (S/P/Bld) [Vol rate/Area] NOT REPORTED [place] GFR/1.73 sq M predicted among non-blacks MDRD (S/P/Bld) [Vol rate/Area] [place] Comment on above: Average GFR for 70 o r more years old: 75 mL/min/1.73sq m Chronic Kidney Disease: <60 mL/min/1.73sq m Kidney failure: <15 mL/min/1.73sq m eGFR calculated using average adult body mass. Additional eGFR calculator available at: http://www.[employer]/multiple_crcl_2012.htm Glucose [Mass/Vol] 81 mg/dL 70 - 99 mg/dL [place] Interpretation and review of laboratory results Abnormal [place] Potassium [Moles/Vol] 4.1 mmol/L 3.7 - 5.3 mmol/L [place] Sodium [Moles/Vol] 145 mmol/L High 135 - 144 mmol/L [place] Urea nitrogen [Mass/Vol] 20 mg/dL 8 - 23 mg/dL [place] POC Glucose Fingerstickon Glucose [Mass/Vol] 285 mg/dL High 75 - 110 mg/dL [place] Interpretation and review of laboratory results Abnormal [place] Glucose [Mass/Vol] 286 mg/dL High 75 - 110 mg/dL [place] Interpretation and review of laboratory results Abnormal [place] Glucose [Mass/Vol] 264 mg/dL High 75 - 110 mg/dL [place] Interpretation and review of laboratory results Abnormal [place] Glucose [Mass/Vol] 72 mg/dL Low 75 - 110 mg/dL [place] Interpretation and review of laboratory results Abnormal [place] Basic Metab w/rfx MGon 03-11 (cont.) Normal [facility] Comment on above: Result Comment: Aver age GFR for 70 or more years old: 75 mL/min/1.73sq m Chronic Kidney Disease: <60 mL/min/1.73sq m Kidney failure: <15 mL/min/1.73sq m eGFR calculated using average adult body mass. Additional eGFR calculator available at: http://www.[employer]/multiple_crcl_2012.htm Performed By: #### H H, BMP #### [facility] [address] [facility]. [place], [place] [id number] Clinical Quality Assurance Specialist: Con Oseguera MD Anion gap [Moles/Vol] 10 mmol/L Normal 9-17 [facility] Comment on above: Performed By: #### H H, BMP #### [facility] [address] [facility] [place] [address] Clinical Quality Assurance Specialist: Con Oseguera MD Calcium [Mass/Vol] 9.3 mg/dL Normal 8.6-10.4 [facility] Comment on above: Performed By: #### H H, BMP #### [facility] [address] [facility] [place] [address] Clinical Quality Assurance Specialist: Con Oseguera MD Chloride [Moles/Vol] 104 mmol/L Normal 98-107 [facility] Comment on above: Performed By: #### H H, BMP #### [facility] [address] [place] [address] Clinical Quality Assurance Specialist: Con Oseguera MD CO2 [Moles/Vol] 26 mmol/L Normal 20-31 [facility] Comment on above: Performed By: #### H H, BMP #### [facility] [address] [place] [address] Clinical Quality Assurance Specialist: Con Oseguera MD Creatinine [Mass/Vol] 1.49 mg/dL High 0.70-1.20 [facility] Comment on above: Performed By: #### H H, BMP #### [facility] [address] [place] [address] Clinical Quality Assurance Specialist: Con Oseguera MD GFR, Amer 55 mL/min Low >60 [facility] Comment on above: Performed By: #### H H, BMP #### [facility] [address] [place] [address] Clinical Quality Assurance Specialist: Con Oseguera MD GFR,non Amer 45 mL/min Low >60 [facility] Comment on above: Performed By: #### H H, BMP #### [facility] [place] [address] Clinical Quality Assurance Specialist: Con Oseguera MD Glucose [Mass/Vol] 78 mg/dL Normal 70-99 [facility] Comment on above: Performed By: #### H H, BMP #### [facility] [address] [place] [address] Clinical Quality Assurance Specialist: Con Oseguera MD Potassium [Moles/Vol] 4.0 mmol/L Normal 3.7-5.3 [facility] Comment on above: Performed By: #### H H, BMP #### [facility] [address] [place] [address] Clinical Quality Assurance Specialist: Con Oseguera MD Sodium [Moles/Vol] 140 mmol/L Normal 135-144 [facility] Comment on above: Performed By: #### H H, BMP #### [facility] [address] [place] [address] Clinical Quality Assurance Specialist: Con Oseguera MD Urea nitrogen [Mass/Vol] 22 mg/dL Normal 8-23 [facility] Comment on above: Performed By: #### H H, BMP #### [facility] [address] [place] [address] Clinical Quality Assurance Specialist: Con Oseguera MD BUN/CRE Ratio NOT REPORTED Normal 9-20 [facility] Comment on above: Performed By: #### H H, BMP #### [facility] [address] [place] [address] Clinical Quality Assurance Specialist: Con Oseguera MD Staging: NOT REPORTED Normal [facility] Comment on above: Performed By: #### H H, BMP #### [facility] [address] [place] [address] Clinical Quality Assurance Specialist: Con Oseguera MD Basic Metabolic Panel w/ Ref milagros to MGon 03-11-2019 Anion gap [Moles/Vol] 10 mmol/L 9 - 17 mmol/L [place] Bun/Cre Ratio NOT REPORTED [place] Calcium [Mass/Vol] 9.3 mg/dL 8.6 - 10. 4 mg/dL [place] Chloride [Moles/Vol] 104 mmol/L 98 - 107 mmol/L [place] CO2 [Moles/Vol] 26 mmol/L 20 - 31 mmol/L [place] Creatinine [Mass/Vol] 1.49 mg/dL High 0.7 - 1.2 mg/dL [place] GFR 55 mL/min Low >60 [place] GFR Non- 45 mL/min Low >60 [place] GFR/1.73 sq M predicted among non-blacks MDRD (S/P/Bld) [Vol rate/Area] [place] Comment on above: Average GFR for 70 o r more years old: 75 mL/min/1.73sq m Chronic Kidney Disease: <60 mL/min/1.73sq m Kidney failure: <15 mL/min/1.73sq m eGFR calculated using average adult body mass. Additional eGFR calculator available at: http://www.[employer]/multiple_crcl_2012.htm GFR/1.73 sq M predicted among non-blacks MDRD (S/P/Bld) [Vol rate/Area] NOT REPORTED [place] Glucose [Mass/Vol] 78 mg/dL 70 - 99 mg/dL [place] Interpretation and review of laboratory results Abnormal [place] Potassium [Moles/Vol] 4.0 mmol/L 3.7 - 5.3 mmol/L [place] Sodium [Moles/Vol] 140 mmol/L 135 - 144 mmol/L [place] Urea nitrogen [Mass/Vol] 22 mg/dL 8 - 23 mg/dL [place] POC Glucose Fingerstickon Glucose [Mass/Vol] 213 mg/dL High 75 - 110 mg/dL [place] Interpretation and review of laboratory results Abnormal [place] Glucose [Mass/Vol] 139 mg/dL High 75 - 110 mg/dL [place] Interpretation and review of laboratory results Abnormal [place] Glucose [Mass/Vol] 195 mg/dL High 75 - 110 mg/dL [place] Interpretation and review of laboratory results Abnormal [place] Glucose [Mass/Vol] 73 mg/dL Low 75 - 110 mg/dL [place] Interpretation and review of laboratory results Abnormal [place] XR CHEST (2 VW)on 03-11-2019 XR CHEST (2 VW) EXAMINATION: TWO XRAY VIEWS OF THE CHEST 03/11/2019 11:06 am COMPARISON: None. HISTORY: ORDERING SYSTEM PROVIDED HISTORY: shortness of breath TECHNOLOGIST PROVIDED HISTORY: shortness of breath Reason for Exam: sob Acuity: Unknown Type of Exam: Unknown FINDINGS: Bibasilar consolidative opacities are not substantially changed. There is a small left pleural effusion. No pneumothorax or right pleural effusion is evident. Cardiac and mediastinal contours are stable. No acute osseous abnormality is seen. IMPRESSION: 1. Stable bibasilar pulmonary opacities that may reflect atelectasis or pneumonia. 2. Stable small left pleural effusion. Interpreted by: Maxwell Chaudhry MD Signed by: Maxwell Chaudhry MD 03/11/19 Final result Normal [facility] XR CHEST STANDARD (2 VW)on 0 03-11-2019 EXAMINATION: TWO XRA Y VIEWS OF THE CHEST 03/11/2019 11:06 am COMPARISON: None. HISTORY: ORDERING SYSTEM PROVIDED HISTORY: shortness of breath TECHNOLOGIST PROVIDED HISTORY: shortness of breath Reason for Exam: sob Acuity: Unknown Type of Exam: Unknown FINDINGS: Bibasilar consolidative opacities are not substantially changed. There is a small left pleural effusion. No pneumothorax or right pleural effusion is evident. Cardiac and mediastinal contours are stable. No acute osseous abnormality is seen. [facility] [place] 1. Stable bibasilar pulmonary opacities that may reflect atelectasis or pneumonia. 2. Stable small left pleural effusion. [facility] [place] Stan, Mhpn Incoming Radiant Results From [employer] - 03/11/2019 2:19 PM EDT EXAMINATION: TWO XRAY VIEWS OF THE CHEST 03/11/2019 11:06 am COMPARISON: None. HISTORY: ORDERING SYSTEM PROVIDED HISTORY: shortness of breath TECHNOLOGIST PROVIDED HISTORY: shortness of breath Reason for Exam: sob Acuity: Unknown Type of Exam: Unknown FINDINGS: Bibasilar consolidative opacities are not substantially changed. There is a small left pleural effusion. No pneumothorax or right pleural effusion is evident. Cardiac and mediastinal contours are stable. No acute osseous abnormality is seen. IMPRESSION: 1. Stable bibasilar pulmonary opacities that may reflect atelectasis or pneumonia. 2. Stable small left pleural effusion. [facility] [place] Basic Metab w/rfx MGon 03-10 (cont.) Normal [facility] Comment on above: Result Comment: Aver age GFR for 70 or more years old: 75 mL/min/1.73sq m Chronic Kidney Disease: <60 mL/min/1.73sq m Kidney failure: <15 mL/min/1.73sq m eGFR calculated using average adult body mass. Additional eGFR calculator available at: http://www.[employer]/multiple_crcl_2012.htm Performed By: #### B MP #### [facility] [address] [place] [address] Clinical Quality Assurance Specialist: Con Oseguera MD Anion gap [Moles/Vol] 12 mmol/L Normal 9-17 [facility] Comment on above: Performed By: #### B MP #### [facility] [place] [address] Clinical Quality Assurance Specialist: Con Oseguera MD Calcium [Mass/Vol] 9.3 mg/dL Normal 8.6-10.4 [facility] Comment on above: Performed By: #### B MP #### [facility] [address] [place] [address] Clinical Quality Assurance Specialist: Con Oseguera MD Chloride [Moles/Vol] 102 mmol/L Normal 98-107 [facility] Comment on above: Performed By: #### B MP #### [facility] [place] [address] Clinical Quality Assurance Specialist: Con Oseguera MD CO2 [Moles/Vol] 27 mmol/L Normal 20-31 [facility] Comment on above: Performed By: #### B MP #### [facility] [address] [place] [address] Clinical Quality Assurance Specialist: Con Oseguera MD Creatinine [Mass/Vol] 1.69 mg/dL High 0.70-1.20 [facility] Comment on above: Performed By: #### B MP #### [facility] [place] [address] Clinical Quality Assurance Specialist: Con Oseguear MD GFR, Amer 47 mL/min Low >60 [facility] Comment on above: Performed By: #### B MP #### [facility] [address] [place] [address] Clinical Quality Assurance Specialist: Con Oseguera MD GFR,non Amer 39 mL/min Low >60 [facility] Comment on above: Performed By: #### B MP #### [facility] [address] [place] [address] Clinical Quality Assurance Specialist: Con Oseguera MD Glucose [Mass/Vol] 87 mg/dL Normal 70-99 [facility] Comment on above: Performed By: #### B MP #### [facility] [address] [place] [address] Clinical Quality Assurance Specialist: Con Oseguera MD Potassium [Moles/Vol] 4.2 mmol/L Normal 3.7-5.3 [facility] Comment on above: Performed By: #### B MP #### [facility] [address] [place] [address] Clinical Quality Assurance Specialist: Con Oseguera MD Sodium [Moles/Vol] 141 mmol/L Normal 135-144 [facility] Comment on above: Performed By: #### B MP #### [facility] [address] [place] [address] Clinical Quality Assurance Specialist: Con Oseguera MD Urea nitrogen [Mass/Vol] 24 mg/dL High 8-23 [facility] Comment on above: Performed By: #### B MP #### [facility] [address] [place] [address] Clinical Quality Assurance Specialist: Con Oseguera MD BUN/CRE Ratio NOT REPORTED Normal 9-20 [facility] Comment on above: Performed By: #### B MP #### [facility] [address] [place] [address] Clinical Quality Assurance Specialist: Con Oseguera MD Staging: NOT REPORTED Normal [facility] Comment on above: Performed By: #### B MP #### [facility] [address] [place] [address] Clinical Quality Assurance Specialist: Con Oseguera MD Basic Metabolic Panel w/ Ref milagros to MGon 03-10-2019 Anion gap [Moles/Vol] 12 mmol/L 9 - 17 mmol/L [place] Bun/Cre Ratio NOT REPORTED [place] Calcium [Mass/Vol] 9.3 mg/dL 8.6 - 10. 4 mg/dL [place] Chloride [Moles/Vol] 102 mmol/L 98 - 107 mmol/L [place] CO2 [Moles/Vol] 27 mmol/L 20 - 31 mmol/L [place] Creatinine [Mass/Vol] 1.69 mg/dL High 0.7 - 1.2 mg/dL [place] GFR 47 mL/min Low >60 [place], [place] GFR Non- 39 mL/min Low >60 [place] GFR/1.73 sq M predicted among non-blacks MDRD (S/P/Bld) [Vol rate/Area] NOT REPORTED [place] GFR/1.73 sq M predicted among non-blacks MDRD (S/P/Bld) [Vol rate/Area] [place] Comment on above: Average GFR for 70 o r more years old: 75 mL/min/1.73sq m Chronic Kidney Disease: <60 mL/min/1.73sq m Kidney failure: <15 mL/min/1.73sq m eGFR calculated using average adult body mass. Additional eGFR calculator available at: http://www.[employer]/multiple_crcl_2012.htm Glucose [Mass/Vol] 87 mg/dL 70 - 99 mg/dL [place] Interpretation and review of laboratory results Abnormal [place] Potassium [Moles/Vol] 4.2 mmol/L 3.7 - 5.3 mmol/L [place] Sodium [Moles/Vol] 141 mmol/L 135 - 144 mmol/L [place] Urea nitrogen [Mass/Vol] 24 mg/dL High 8 - 23 mg/dL [place] Digoxinon 03-10-2019 Digoxin [Mass/Vol] 0.6 ng/mL Normal 0.5-2.0 [facility] Comment on above: Result Comment: Digoxin Reference Range: Heart Failure 0.5-0.9 Atrial Fibrillation 0.8-2.0 Performed By: #### B MP #### [facility] [address] [facility] [place] [address] Clinical Quality Assurance Specialist: Con Oseguera MD Digoxin [Mass/Vol] 915 ng/mL Normal [facility] Comment on above: Performed By: #### B MP #### [facility] [address] [facility] [place] [address] Clinical Quality Assurance Specialist: Con Oseguera MD Digoxin [Mass/Vol] [id number] ng/mL Normal [facility] Comment on above: Performed By: #### B MP #### [facility] [address] [facility] [place] [address] Clinical Quality Assurance Specialist: Con Oseguera MD Digoxin [Mass/Vol] 125mct Normal [facility] Comment on above: Performed By: #### B MP #### [facility] [address] [facility] [place] [address] Clinical Quality Assurance Specialist: Con Oseguera MD Digoxin Levelon 03-10-2019 Digoxin Date Last Dose [id number] [place] Digoxin Dose Amount 125mct [place] Digoxin Dose Time 915 [place], [place] INR Coag (Bld) [Relative time] 0.6 ng/mL 0.5 - 2 ng/mL [place] Comment on above: Digoxin Reference Range: Heart Failure 0.5-0.9 Atrial Fibrillation 0.8-2.0 Magnesiumon 03-10-2019 Magnesium [Mass/Vol] 2.1 mg/dL Normal 1.6-2.6 [facility] Comment on above: Performed By: #### B MP #### [facility] [address] [place] [address] Clinical Quality Assurance Specialist: Con Oseguera MD Magnesium [Mass/Vol] 2.1 mg/dL 1.6 - 2.6 mg/dL [place] POC Glucose Fingerstickon Glucose [Mass/Vol] 298 mg/dL High 75 - 110 mg/dL [place] Interpretation and review of laboratory results Abnormal [place] Glucose [Mass/Vol] 88 mg/dL 75 - 110 mg/dL [place] Glucose [Mass/Vol] 120 mg/dL High 75 - 110 mg/dL [place] Interpretation and review of laboratory results Abnormal [place] Glucose [Mass/Vol] 87 mg/dL 75 - 110 mg/dL [place] Basic Metab w/rfx MGon 03-09 (cont.) Normal [facility] Comment on above: Result Comment: Aver age GFR for 70 or more years old: 75 mL/min/1.73sq m Chronic Kidney Disease: <60 mL/min/1.73sq m Kidney failure: <15 mL/min/1.73sq m eGFR calculated using average adult body mass. Additional eGFR calculator available at: http://www.[employer]/multiple_crcl_2012.htm Performed By: #### B MP #### [facility] [address] [place] [address] Clinical Quality Assurance Specialist: Con Oseguera MD Anion gap [Moles/Vol] 15 mmol/L Normal 9-17 [facility] Comment on above: Performed By: #### B MP #### [facility] [address] [place] [address] Clinical Quality Assurance Specialist: Con Oseguera MD Calcium [Mass/Vol] 10.0 mg/dL Normal 8.6-10.4 [facility] Comment on above: Performed By: #### B MP #### [facility] [address] [place] [address] Clinical Quality Assurance Specialist: Con Oseguera MD Chloride [Moles/Vol] 98 mmol/L Normal 98-107 [facility] Comment on above: Performed By: #### B MP #### [facility] [address] [place] [address] Clinical Quality Assurance Specialist: Con Oseguera MD CO2 [Moles/Vol] 24 mmol/L Normal 20-31 [facility] Comment on above: Performed By: #### B MP #### [facility] [address] [place] [address] Clinical Quality Assurance Specialist: Con Oseguera MD Creatinine [Mass/Vol] 1.54 mg/dL High 0.70-1.20 [facility] Comment on above: Performed By: #### B MP #### [facility] [address] [place] [address] Clinical Quality Assurance Specialist: Con Oseguera MD GFR, Amer 53 mL/min Low >60 [facility] Comment on above: Performed By: #### B MP #### [facility] [address] [place] [address] Clinical Quality Assurance Specialist: Con Oseguera MD GFR,non Amer 44 mL/min Low >60 [facility] Comment on above: Performed By: #### B MP #### [facility] [address] [place] [address] Clinical Quality Assurance Specialist: Con Oseguera MD Glucose [Mass/Vol] 119 mg/dL High 70-99 [facility] Comment on above: Performed By: #### B MP #### [facility] [address] [place] [address] Clinical Quality Assurance Specialist: Con Oseguera MD Potassium [Moles/Vol] 4.4 mmol/L Normal 3.7-5.3 [facility] Comment on above: Performed By: #### B MP #### [facility] [address] [place] [address] Clinical Quality Assurance Specialist: Con Oseguera MD Sodium [Moles/Vol] 137 mmol/L Normal 135-144 [facility] Comment on above: Performed By: #### B MP #### [facility] [address] [place] [address] Clinical Quality Assurance Specialist: Con Oseguera MD Urea nitrogen [Mass/Vol] 22 mg/dL Normal 8-23 [facility] Comment on above: Performed By: #### B MP #### [facility] [address] [place] [address] Clinical Quality Assurance Specialist: Con Oseguera MD BUN/CRE Ratio NOT REPORTED Normal 9-20 [facility] Comment on above: Performed By: #### B MP #### [facility] [address] [place] [address] Clinical Quality Assurance Specialist: Con Oseguera MD Staging: NOT REPORTED Normal [facility] Comment on above: Performed By: #### B MP #### [facility] [address] [place] [address] Clinical Quality Assurance Specialist: Con Osgeuera MD Basic Metabolic Panel w/ Ref milagros to MGon 03-09-2019 Anion gap [Moles/Vol] 15 mmol/L 9 - 17 mmol/L [facility] [place], [place] Bun/Cre Ratio NOT REPORTED [facility], [place] Calcium [Mass/Vol] 10.0 mg/dL 8.6 - 10. 4 mg/dL [facility] [place], [place] Chloride [Moles/Vol] 98 mmol/L 98 - 107 mmol/L [place] CO2 [Moles/Vol] 24 mmol/L 20 - 31 mmol/L [place] Creatinine [Mass/Vol] 1.54 mg/dL High 0.7 - 1.2 mg/dL [place] GFR 53 mL/min Low >60 [place] GFR Non- 44 mL/min Low >60 [place] GFR/1.73 sq M predicted among non-blacks MDRD (S/P/Bld) [Vol rate/Area] [place] Comment on above: Average GFR for 70 o r more years old: 75 mL/min/1.73sq m Chronic Kidney Disease: <60 mL/min/1.73sq m Kidney failure: <15 mL/min/1.73sq m eGFR calculated using average adult body mass. Additional eGFR calculator available at: http://www.[employer]/multiple_crcl_2012.htm GFR/1.73 sq M predicted among non-blacks MDRD (S/P/Bld) [Vol rate/Area] NOT REPORTED [place] Glucose [Mass/Vol] 119 mg/dL High 70 - 99 mg/dL [place], [place] Interpretation and review of laboratory results Abnormal [place] Potassium [Moles/Vol] 4.4 mmol/L 3.7 - 5.3 mmol/L [place] Sodium [Moles/Vol] 137 mmol/L 135 - 144 mmol/L [place] Urea nitrogen [Mass/Vol] 22 mg/dL 8 - 23 mg/dL [place] Cult,Urine,Cathon 03-09-2019 Cult,Urine,Cath Specimen Description .CATHETERIZED URINE Special Requests NOT REPORTED Culture KLEBSIELLA PNEUMONIAE >[id number] CFU/ML Report Status FINAL 03/09/2019 SUSCEPTIBILITY Organism KLEBSIELLA PNEUMONIAE Method RAFAT Amikacin NOT REPORTED Ampicillin >=32 RESISTANT Ampicillin/Sulbactam NOT REPORTED Aztreonam <=1 SUSCEPTIBLE Cefazolin <=4 SUSCEPTIBLE Cefazolin sensitivity results can be used to predict the effectiveness of oral cephalosporins (eg. Cephalexin) in uncomplicated Urinary Tract Infections due to E. coli, K. pneumoniae, and P. mirabilis Cefepime NOT REPORTED Ceftriaxone <=1 SUSCEPTIBLE Ciprofloxacin <=0.25 SUSCEPTIBLE Ertapenem NOT REPORTED ESBL NEGATIVE Gentamicin <=1 SUSCEPTIBLE Meropenem NOT REPORTED Nitrofurantoin 64 INTERMEDIATE Tigecycline NOT REPORTED Tobramycin <=1 SUSCEPTIBLE Trimethoprim/Sulfa <=20 SUSCEPTIBLE Piperacillin/Tazobact am <=4 SUSCEPTIBLE Normal [facility] Comment on above: Performed By: #### B MP #### [facility] [address] [place] [address] Clinical Quality Assurance Specialist: Con Oseguera MD POC Glucose Fingerstickon Glucose [Mass/Vol] 199 mg/dL High 75 - 110 mg/dL [place] Interpretation and review of laboratory results Abnormal [place] Glucose [Mass/Vol] 296 mg/dL High 75 - 110 mg/dL [place] Interpretation and review of laboratory results Abnormal [place] Glucose [Mass/Vol] 299 mg/dL High 75 - 110 mg/dL [place] Interpretation and review of laboratory results Abnormal [place] Glucose [Mass/Vol] 124 mg/dL High 75 - 110 mg/dL [place] Interpretation and review of laboratory results Abnormal [place] Urine culture via catheteron 03-09-2019 Culture KLEBSIELLA PNEUMONIA E >[id number] CFU/ML Abnormal [place] Interpretation and review of laboratory results Abnormal [place] Special Requests NOT REPORTED [place] Specimen Description .CATHETERIZED URINE [place] Basic Metab w/rfx MGon 03-08 (cont.) Normal [facility] Comment on above: Result Comment: Aver age GFR for 70 or more years old: 75 mL/min/1.73sq m Chronic Kidney Disease: <60 mL/min/1.73sq m Kidney failure: <15 mL/min/1.73sq m eGFR calculated using average adult body mass. Additional eGFR calculator available at: http://www.[employer]/multiple_crcl_2012.htm Performed By: #### B MP #### [facility] [address] [place] [address] Clinical Quality Assurance Specialist: Con Oseguera MD Anion gap [Moles/Vol] 11 mmol/L Normal 9-17 [facility] Comment on above: Performed By: #### B MP #### [facility] [address] [place] [address] Clinical Quality Assurance Specialist: Con Oseguera MD Calcium [Mass/Vol] 9.3 mg/dL Normal 8.6-10.4 [facility] Comment on above: Performed By: #### B MP #### [facility] [address] [place] [address] Clinical Quality Assurance Specialist: Con Oseguera MD Chloride [Moles/Vol] 100 mmol/L Normal 98-107 [facility] Comment on above: Performed By: #### B MP #### [facility] [address] [place] [address] Clinical Quality Assurance Specialist: Con Oseguera MD CO2 [Moles/Vol] 28 mmol/L Normal 20-31 [facility] Comment on above: Performed By: #### B MP #### [facility] [address] [place] [address] Clinical Quality Assurance Specialist: Con Oseguera MD Creatinine [Mass/Vol] 1.57 mg/dL High 0.70-1.20 [facility] Comment on above: Performed By: #### B MP #### [facility] [address] [place] [address] Clinical Quality Assurance Specialist: Con Oseguera MD GFR, Amer 52 mL/min Low >60 [facility] Comment on above: Performed By: #### B MP #### [facility] [address] [place] [address] Clinical Quality Assurance Specialist: Con Oseguera MD GFR,non Amer 43 mL/min Low >60 [facility] Comment on above: Performed By: #### B MP #### [facility] [address] [place] [address] Clinical Quality Assurance Specialist: Con Oseguera MD Glucose [Mass/Vol] 75 mg/dL Normal 70-99 [facility] Comment on above: Performed By: #### B MP #### [facility] [address] [place] [address] Clinical Quality Assurance Specialist: Con Oseguera MD Potassium [Moles/Vol] 4.6 mmol/L Normal 3.7-5.3 [facility] Comment on above: Performed By: #### B MP #### [facility] [address] [place] [address] Clinical Quality Assurance Specialist: Con Oseguera MD Sodium [Moles/Vol] 139 mmol/L Normal 135-144 [facility] Comment on above: Performed By: #### B MP #### [facility] [address] [place] [address] Clinical Quality Assurance Specialist: Con Oseguera MD Urea nitrogen [Mass/Vol] 27 mg/dL High 8-23 [facility] Comment on above: Performed By: #### B MP #### [facility] [address] [place] [address] Clinical Quality Assurance Specialist: Con Oseguera MD BUN/CRE Ratio NOT REPORTED Normal 9-20 [facility] Comment on above: Performed By: #### B MP #### [facility] [address] [place] [address] Clinical Quality Assurance Specialist: Con Oseguera MD Staging: NOT REPORTED Normal [facility] Comment on above: Performed By: #### B MP #### [facility] [address] [place] [address] Clinical Quality Assurance Specialist: Con Oseguera MD Basic Metabolic Panel w/ Ref milagros to MGon 03-08-2019 Anion gap [Moles/Vol] 11 mmol/L 9 - 17 mmol/L [place] Bun/Cre Ratio NOT REPORTED [place] Calcium [Mass/Vol] 9.3 mg/dL 8.6 - 10. 4 mg/dL [place] Chloride [Moles/Vol] 100 mmol/L 98 - 107 mmol/L [place] CO2 [Moles/Vol] 28 mmol/L 20 - 31 mmol/L [place] Creatinine [Mass/Vol] 1.57 mg/dL High 0.7 - 1.2 mg/dL [place] GFR 52 mL/min Low >60 [place] GFR Non- 43 mL/min Low >60 [place] GFR/1.73 sq M predicted among non-blacks MDRD (S/P/Bld) [Vol rate/Area] [place] Comment on above: Average GFR for 70 o r more years old: 75 mL/min/1.73sq m Chronic Kidney Disease: <60 mL/min/1.73sq m Kidney failure: <15 mL/min/1.73sq m eGFR calculated using average adult body mass. Additional eGFR calculator available at: http://www.[employer]/multiple_crcl_2012.htm GFR/1.73 sq M predicted among non-blacks MDRD (S/P/Bld) [Vol rate/Area] NOT REPORTED [place] Glucose [Mass/Vol] 75 mg/dL 70 - 99 mg/dL [place] Interpretation and review of laboratory results Abnormal [place] Potassium [Moles/Vol] 4.6 mmol/L 3.7 - 5.3 mmol/L [place] Sodium [Moles/Vol] 139 mmol/L 135 - 144 mmol/L [place] Urea nitrogen [Mass/Vol] 27 mg/dL High 8 - 23 mg/dL [place] EKG 12 Leadon 03-08-2019 Atrial Rate 49 BPM [place] Q-T Interval 406 ms [place] QRS Duration 80 ms [place] QTc Calculation (Bazett) 465 ms [place] R [place] -13 degrees [place] T [place] 40 degrees [place] Ventricular Rate 79 BPM [place], [place] Stan, Mhpn Incoming Ekg Results From [facility] - 03/08/2019 10:18 AM EDT Atrial fibrillation Abnormal ECG When compared with ECG of 07-MAR-2019 17:56, (unconfirmed) No significant change was found [place] Atrial fibrillation Abnormal ECG When compared with ECG of 07-MAR-2019 17:56, (unconfirmed) No significant change was found [place] Hemoglobin A1Con 03-08-2019 HbA1c (Bld) [Mass fraction] 157 mg/dL Normal [facility] Comment on above: Result Comment: The ADA and AACC recommend providing the estimated average glucose result to permit better patient understanding of their HBA1c result. Performed By: #### B MP #### [facility] [address] [place], [place] [id number] Clinical Quality Assurance Specialist: Con Oseguera MD HbA1c (Bld) [Mass fraction] 7.1 % High 4.0-6.0 [facility] Comment on above: Performed By: #### B MP #### [facility] [address] [facility] [place] [address] Clinical Quality Assurance Specialist: Con Oseguera MD Glucose [Mass/Vol] 157 mg/dL [place] Comment on above: The ADA and AACC rec ommend providing the estimated average glucose result to permit better patient understanding of their HBA1c result. HbA1c (Bld) [Mass fraction] 7.1 % High 4 - 6 % [place] Interpretation and review of laboratory results Abnormal [place] POC Glucose Fingerstickon Glucose [Mass/Vol] 220 mg/dL High 75 - 110 mg/dL [place] Interpretation and review of laboratory results Abnormal [place] Glucose [Mass/Vol] 144 mg/dL High 75 - 110 mg/dL [place] Interpretation and review of laboratory results Abnormal [place] Glucose [Mass/Vol] 325 mg/dL High 75 - 110 mg/dL [place] Interpretation and review of laboratory results Abnormal [place] Glucose [Mass/Vol] 138 mg/dL High 75 - 110 mg/dL [place] Interpretation and review of laboratory results Abnormal [place] Glucose [Mass/Vol] 63 mg/dL Low 75 - 110 mg/dL [place] Interpretation and review of laboratory results Abnormal [place] Brain Natri. Peptideon 03-07 Natriuretic peptide B (Bld) [Mass/Vol] Pro-BNP Reference Range: Normal [facility] Comment on above: Result Comment: Rule Out: <300 Miranda Zone: Age <50 300-450 Age 50-75 300-900 Age >75 300-1800 Usually represents mild to moderate HF but other cardiopulmonary causes cannot be ruled out. Rule In: Age <50 >450 Age 50-75 >900 Age >75 >1800 Performed By: #### B MP #### [facility] [address] [facility] [place], [place] [id number] Clinical Quality Assurance Specialist: Con Oseguera MD Natriuretic peptide B (Bld) [Mass/Vol] 946 pg/mL High <300 [facility] Comment on above: Result Comment: Pro- BNP results cannot be compared to BNP results. Performed By: #### B MP #### [facility] [address] [facility] [place] [address] Clinical Quality Assurance Specialist: Con Oseguera MD Brain Natriuretic Peptideon 03-07-2019 Interpretation and review of laboratory results Abnormal [place] Natriuretic peptide B (Bld) [Mass/Vol] Pro-BNP Reference Range: [place] Comment on above: Rule Out: <300 Miranda Zone: Age <50 300-450 Age 50-75 300-900 Age >75 300-1800 Usually represents mild to moderate HF but other cardiopulmonary causes cannot be ruled out. Rule In: Age <50 >450 Age 50-75 >900 Age >75 >1800 Natriuretic peptide B (Bld) [Mass/Vol] 946 pg/mL High <300 [place] Comment on above: Pro-BNP results darrius ot be compared to BNP results. CBC Auto Differentialon 02-25 Basophils (Bld) [#/Vol] 0.10 10*3/uL [place] Basophils/100 WBC (Bld) 1 % 0 - 2 % [place] Differential Type NOT REPORTED [place] Eosinophils (Bld) [#/Vol] 0.10 10*3/uL [place] Eosinophils/100 WBC (Bld) 1 % 0 - 4 % [place] Erythrocyte distribution width (RBC) [Ratio] 29.0 % High 11.5 - 14.9 % [place] Hematocrit (Bld) [Volume fraction] 33.5 % Low 41 - 53 % [place] Hemoglobin (Bld) [Mass/Vol] 10.5 g/dL Low 13.5 - 17.5 g/dL [place] Interpretation and review of laboratory results Abnormal [place] Lymphocytes (Bld) [#/Vol] 0.72 10*3/uL Low [place] Lymphocytes/100 WBC (Bld) 7 % Low 24 - 44 % [place] MCH (RBC) [Entitic mass] 22.4 pg Low 26 - 34 pg [place] MCHC (RBC) [Mass/Vol] 31.2 g/dL 31 - 37 g/dL [place] MCV (RBC) [Entitic vol] 71.7 fL Low 80 - 100 fL [place] Monocytes (Bld) [#/Vol] 0.72 10*3/uL [place] Monocytes/100 WBC (Bld) 7 % 1 - 7 % [place] Morphology Theo (Bld) [Interp] ANISOCYTOSIS PRESENT [place] Morphology Theo (Bld) [Interp] HYPOCHROMIA PRESENT [place] Morphology Theo (Bld) [Interp] MICROCYTOSIS PRESENT [place] Platelet mean volume (Bld) [Entitic vol] 8.6 fL 6 - 12 fL [place] Platelets (Bld) [#/Vol] NOT REPORTED [place] Platelets (Bld) [#/Vol] 273 10*3/uL [place] RBC (Bld) [#/Vol] 4.68 10*6/uL 4.5 - 5.9 m/uL [place] RBC morphology finding Nom (Bld) NOT REPORTED [place] Segmented neutrophils/100 WBC (Bld) 84 % High 36 - 66 % [place] Segs Absolute 8.66 [place] WBC (Bld) [#/Vol] NOT REPORTED per 100 WBC [place] WBC (Bld) [#/Vol] 10.3 10*3/uL [place] WBC Morphology NOT REPORTED [place] CBC with Diffon 03-07-2019 Abs. Basophil 0.10 k/uL Normal 0.0-0.2 [facility] Comment on above: Performed By: #### B MP #### [facility] [place] [address] Clinical Quality Assurance Specialist: Con Oseguera MD Abs.Neutrophil (Seg) 8.66 k/uL Normal 1.3-9.1 [facility] Comment on above: Performed By: #### B MP #### [facility] [place] [address] Clinical Quality Assurance Specialist: Con Oseguera MD Basophils/100 WBC (Bld) 1 % Normal 0-2 [facility] Comment on above: Performed By: #### B MP #### [facility] [place] [address] Clinical Quality Assurance Specialist: Con Oseguera MD Eosinophils (Bld) [#/Vol] 0.10 10*3/uL Normal 0.0-0.4 [facility] Comment on above: Performed By: #### B MP #### [facility] [address] [place] [address] Clinical Quality Assurance Specialist: Con Oseguera MD Eosinophils/100 WBC (Bld) 1 % Normal 0-4 [facility] Comment on above: Performed By: #### B MP #### [facility] [address] [place] [address] Clinical Quality Assurance Specialist: Con Oseguera MD Lymphocytes (Bld) [#/Vol] 0.72 10*3/uL Low 1.0-4.8 [facility] Comment on above: Performed By: #### B MP #### [facility] [address] [facility] [address] Clinical Quality Assurance Specialist: Con Oseguera MD Lymphocytes/100 WBC (Bld) 7 % Low 24-44 [facility] Comment on above: Performed By: #### B MP #### [facility] [address] [facility] [address] Clinical Quality Assurance Specialist: Con Oseguera MD Monocytes (Bld) [#/Vol] 0.72 10*3/uL Normal 0.1-1.3 [facility] Comment on above: Performed By: #### B MP #### [facility] [address] [place] [address] Clinical Quality Assurance Specialist: Con Oseguera MD Monocytes/100 WBC (Bld) 7 % Normal 1-7 [facility] Comment on above: Performed By: #### B MP #### [facility] [address] [place] [address] Clinical Quality Assurance Specialist: Con Oseguera MD Morphology Theo (Bld) [Interp] ANISOCYTOSIS PRESENT Normal [facility] Comment on above: Result Comment: MICR OCYTOSIS PRESENT HYPOCHROMIA PRESENT Performed By: #### B MP #### [facility] [address] [facility] [place] [address] Clinical Quality Assurance Specialist: Con Oseguera MD Neutrophil (Seg) 84 % High 36-66 [facility] Comment on above: Performed By: #### B MP #### [facility] [address] [facility] [place] [address] Clinical Quality Assurance Specialist: Con Oseguera MD Erythrocyte distribution width (RBC) [Ratio] 29.0 % High 11.5-14.9 [facility] Comment on above: Performed By: #### B MP #### [facility] [place] [address] Clinical Quality Assurance Specialist: Con Oseguera MD Hematocrit (Bld) [Volume fraction] 33.5 % Low 41-53 [facility] Comment on above: Performed By: #### B MP #### [facility] [address] [facility] [place] [address] Clinical Quality Assurance Specialist: Con Oseguera MD Hemoglobin (Bld) [Mass/Vol] 10.5 g/dL Low 13.5-17.5 [facility] Comment on above: Performed By: #### B MP #### [facility] [place] [address] Clinical Quality Assurance Specialist: Con Oseguera MD MCH (RBC) [Entitic mass] 22.4 pg Low 26-34 [facility] Comment on above: Performed By: #### B MP #### [facility] [address] [facility] [place] [address] Clinical Quality Assurance Specialist: Con Oseguera MD MCHC (RBC) [Mass/Vol] 31.2 g/dL Normal 31-37 [facility] Comment on above: Performed By: #### B MP #### [facility] [place] [address] Clinical Quality Assurance Specialist: Con Oseguera MD MCV (RBC) [Entitic vol] 71.7 fL Low 80-100 [facility] Comment on above: Performed By: #### B MP #### [facility] [address] [place] [address] Clinical Quality Assurance Specialist: Con Oseguera MD Platelet mean volume (Bld) [Entitic vol] 8.6 fL Normal 6.0-12.0 [facility] Comment on above: Performed By: #### B MP #### [facility] [place] [address] Clinical Quality Assurance Specialist: Con Oseguera MD Platelets (Bld) [#/Vol] 273 10*3/uL Normal 150-450 [facility] Comment on above: Performed By: #### B MP #### [facility] [place] [address] Clinical Quality Assurance Specialist: Con Oseguera MD RBC (Bld) [#/Vol] 4.68 10*6/uL Normal 4.5-5.9 [facility] Comment on above: Performed By: #### B MP #### [facility] [place] [address] Clinical Quality Assurance Specialist: Con Oseguera MD WBC (Bld) [#/Vol] 10.3 10*3/uL Normal 3.5-11.0 [facility] Comment on above: Performed By: #### B MP #### [facility] [place] [address] Clinical Quality Assurance Specialist: Con Oseguera MD Abs.Imm.Granulocyte NOT REPORTED Normal 0.00-0.30 [facility] Comment on above: Performed By: #### B MP #### [facility] [place] [address] Clinical Quality Assurance Specialist: Con Oseguera MD Auto Diff Performed NOT REPORTED Normal [facility] Comment on above: Performed By: #### B MP #### [facility] [address] [place] [address] Clinical Quality Assurance Specialist: Con Oseguera MD Immature granulocytes (Bld) [#/Vol] NOT REPORTED Normal 0 [facility] Comment on above: Performed By: #### B MP #### [facility] [address] [place] [address] Clinical Quality Assurance Specialist: Con Oseguera MD NRBC Automated NOT REPORTED Normal [facility] Comment on above: Performed By: #### B MP #### [facility] [address] [place] [address] Clinical Quality Assurance Specialist: Con Oseguera MD Platelets (Bld) [#/Vol] NOT REPORTED Normal [facility] Comment on above: Performed By: #### B MP #### [facility] [address] [place] [address] Clinical Quality Assurance Specialist: Con Oseguera MD RBC morphology finding Nom (Bld) NOT REPORTED Normal [facility] Comment on above: Performed By: #### B MP #### [facility] [address] [place] [address] Clinical Quality Assurance Specialist: Con Oseguera MD WBC Morphology NOT REPORTED Normal [facility] Comment on above: Performed By: #### B MP #### [facility] [address] [place] [address] Clinical Quality Assurance Specialist: Con Oseguera MD CT ABDOMEN PELVIS WO CONTRAS Ton 03-07-2019 CT ABDOMEN PELVIS WO CONTRAST EXAMINATION: CT OF THE ABDOMEN AND PELVIS WITHOUT CONTRAST 03/07/2019 6:20 pm TECHNIQUE: CT of the abdomen and pelvis was performed without the administration of intravenous contrast. Multiplanar reformatted images are provided for review. Dose modulation, iterative reconstruction, and/or weight based adjustment of the mA/kV was utilized to reduce the radiation dose to as low as reasonably achievable. COMPARISON: 12/10/2017 HISTORY: ORDERING SYSTEM PROVIDED HISTORY: abdominal distention, PMH cholecystectomy, hernia repair TECHNOLOGIST PROVIDED HISTORY: Reason for Exam: abdominal distention, PMH cholecystectomy, hernia repair FINDINGS: Lower Chest: There are infiltrates in the right middle lobe and consolidative changes in both lung bases. There is also partial atelectasis of the left lower lobe and mild left pleural effusion. The heart size is top normal. Organs: The liver, pancreas, and spleen are grossly within normal limits for a noncontrast study. The gallbladder is absent. No adrenal masses are identified and there is no hydronephrosis. A large cyst is present within the left kidney. No renal stones are visualized and there is no hydronephrosis. GI/Bowel: There is no small bowel obstruction, free-air, or free-fluid. There is diverticulosis coli, without evidence of diverticulitis or colitis. The appendix is normal in caliber. Duodenal diverticula are present measuring up to 3.6 cm in diameter. Pelvis: There is moderate to severe prostatomegaly. Peritoneum/Retroperit oneum: Vascular calcifications are noted. No pathologically enlarged lymph nodes are visualized. Bones/Soft Tissues: Degenerative changes of the spine are present. IMPRESSION: Bibasilar consolidative changes and right middle lobe pulmonary infiltrates, consistent with pneumonia in the appropriate clinical setting. Mild left pleural effusion. Diverticulosis coli, without evidence of diverticulitis or colitis. Prostatomegaly. Interpreted by: Doug Del Angel MD Signed by: Doug Del Angel MD 03/07/19 Final result Normal [facility] EXAMINATION: CT OF THE ABDOMEN AND PELVIS WITHOUT CONTRAST 03/07/2019 6:20 pm TECHNIQUE: CT of the abdomen and pelvis was performed without the administration of intravenous contrast. Multiplanar reformatted images are provided for review. Dose modulation, iterative reconstruction, and/or weight based adjustment of the mA/kV was utilized to reduce the radiation dose to as low as reasonably achievable. COMPARISON: 12/10/2017 HISTORY: ORDERING SYSTEM PROVIDED HISTORY: abdominal distention, PMH cholecystectomy, hernia repair TECHNOLOGIST PROVIDED HISTORY: Reason for Exam: abdominal distention, PMH cholecystectomy, hernia repair FINDINGS: Lower Chest: There are infiltrates in the right middle lobe and consolidative changes in both lung bases. There is also partial atelectasis of the left lower lobe and mild left pleural effusion. The heart size is top normal. Organs: The liver, pancreas, and spleen are grossly within normal limits for a noncontrast study. The gallbladder is absent. No adrenal masses are identified and there is no hydronephrosis. A large cyst is present within the left kidney. No renal stones are visualized and there is no hydronephrosis. GI/Bowel: There is no small bowel obstruction, free-air, or free-fluid. There is diverticulosis coli, without evidence of diverticulitis or colitis. The appendix is normal in caliber. Duodenal diverticula are present measuring up to 3.6 cm in diameter. Pelvis: There is moderate to severe prostatomegaly. Peritoneum/Retroperit oneum: Vascular calcifications are noted. No pathologically enlarged lymph nodes are visualized. Bones/Soft Tissues: Degenerative changes of the spine are present. [place] Bibasilar consolidative changes and right middle lobe pulmonary infiltrates, consistent with pneumonia in the appropriate clinical setting. Mild left pleural effusion. Diverticulosis coli, without evidence of diverticulitis or colitis. Prostatomegaly. [place] [place], [employer] Incoming Radiant Results From [employer]/Front Row - 03/07/2019 7:00 PM EDT EXAMINATION: CT OF THE ABDOMEN AND PELVIS WITHOUT CONTRAST 03/07/2019 6:20 pm TECHNIQUE: CT of the abdomen and pelvis was performed without the administration of intravenous contrast. Multiplanar reformatted images are provided for review. Dose modulation, iterative reconstruction, and/or weight based adjustment of the mA/kV was utilized to reduce the radiation dose to as low as reasonably achievable. COMPARISON: 12/10/2017 HISTORY: ORDERING SYSTEM PROVIDED HISTORY: abdominal distention, PMH cholecystectomy, hernia repair TECHNOLOGIST PROVIDED HISTORY: Reason for Exam: abdominal distention, PMH cholecystectomy, hernia repair FINDINGS: Lower Chest: There are infiltrates in the right middle lobe and consolidative changes in both lung bases. There is also partial atelectasis of the left lower lobe and mild left pleural effusion. The heart size is top normal. Organs: The liver, pancreas, and spleen are grossly within normal limits for a noncontrast study. The gallbladder is absent. No adrenal masses are identified and there is no hydronephrosis. A large cyst is present within the left kidney. No renal stones are visualized and there is no hydronephrosis. GI/Bowel: There is no small bowel obstruction, free-air, or free-fluid. There is diverticulosis coli, without evidence of diverticulitis or colitis. The appendix is normal in caliber. Duodenal diverticula are present measuring up to 3.6 cm in diameter. Pelvis: There is moderate to severe prostatomegaly. Peritoneum/Retroperit oneum: Vascular calcifications are noted. No pathologically enlarged lymph nodes are visualized. Bones/Soft Tissues: Degenerative changes of the spine are present. IMPRESSION: Bibasilar consolidative changes and right middle lobe pulmonary infiltrates, consistent with pneumonia in the appropriate clinical setting. Mild left pleural effusion. Diverticulosis coli, without evidence of diverticulitis or colitis. Prostatomegaly. [place] Comp Metabolic Profon 2018 (cont.) Normal [facility] Comment on above: Result Comment: Aver age GFR for 70 or more years old: 75 mL/min/1.73sq m Chronic Kidney Disease: <60 mL/min/1.73sq m Kidney failure: <15 mL/min/1.73sq m eGFR calculated using average adult body mass. Additional eGFR calculator available at: http://www.[employer]/multiple_crcl_2012.htm Performed By: #### B MP #### [facility] [address] [facility] [place], [place] [id number] Clinical Quality Assurance Specialist: Con Oseguera MD Albumin [Mass/Vol] 3.8 g/dL Normal 3.5-5.2 [facility] Comment on above: Performed By: #### B MP #### [facility] [address] [facility] [place], [place] [id number] Clinical Quality Assurance Specialist: Con Oseguera MD Alkaline Phos 166 U/L High 40-129 [facility] Comment on above: Performed By: #### B MP #### [facility] [address] [facility] [place], [place] [id number] Clinical Quality Assurance Specialist: Con Oseguera MD ALT [Catalytic activity/Vol] 28 U/L Normal 5-41 [facility] Comment on above: Performed By: #### B MP #### [facility] [address] [place] [address] Clinical Quality Assurance Specialist: Con Oseguera MD Anion gap [Moles/Vol] 12 mmol/L Normal 9-17 [facility] Comment on above: Performed By: #### B MP #### [facility] [address] [place] [address] Clinical Quality Assurance Specialist: Con Oseguera MD AST [Catalytic activity/Vol] 26 U/L Normal <40 [facility] Comment on above: Performed By: #### B MP #### [facility] [place] [address] Clinical Quality Assurance Specialist: Con Oseguera MD Bilirubin Ql (U) 0.20 mg/dL Low 0.3-1.2 [facility] Comment on above: Performed By: #### B MP #### [facility] [address] [place] [address] Clinical Quality Assurance Specialist: Con Oseguera MD Calcium [Mass/Vol] 9.5 mg/dL Normal 8.6-10.4 [facility] Comment on above: Performed By: #### B MP #### [facility] [place] [address] Clinical Quality Assurance Specialist: Con Oseguera MD Chloride [Moles/Vol] 98 mmol/L Normal 98-107 [facility] Comment on above: Performed By: #### B MP #### [facility] [place] [address] Clinical Quality Assurance Specialist: Con Oseguera MD CO2 [Moles/Vol] 28 mmol/L Normal 20-31 [facility] Comment on above: Performed By: #### B MP #### [facility] [address] [place] [address] Clinical Quality Assurance Specialist: Con Oseguera MD Creatinine [Mass/Vol] 1.70 mg/dL High 0.70-1.20 [facility] Comment on above: Performed By: #### B MP #### [facility] [address] [place] [address] Clinical Quality Assurance Specialist: Con Oseguera MD GFR, Amer 47 mL/min Low >60 [facility] Comment on above: Performed By: #### B MP #### [facility] [address] [place] [address] Clinical Quality Assurance Specialist: Con Oseguera MD GFR,non Amer 39 mL/min Low >60 [facility] Comment on above: Performed By: #### B MP #### [facility] [address] [place] [address] Clinical Quality Assurance Specialist: Con Oseguera MD Glucose [Mass/Vol] 63 mg/dL Low 70-99 [facility] Comment on above: Performed By: #### B MP #### [facility] [address] [place] [address] Clinical Quality Assurance Specialist: Con Oseguera MD Potassium [Moles/Vol] 4.6 mmol/L Normal 3.7-5.3 [facility] Comment on above: Performed By: #### B MP #### [facility] [address] [place] [address] Clinical Quality Assurance Specialist: Con Oseguera MD Protein [Mass/Vol] 6.8 g/dL Normal 6.4-8.3 [facility] Comment on above: Performed By: #### B MP #### [facility] [address] [place] [address] Clinical Quality Assurance Specialist: Con Oseguera MD Sodium [Moles/Vol] 138 mmol/L Normal 135-144 [facility] Comment on above: Performed By: #### B MP #### [facility] [address] [place] [address] Clinical Quality Assurance Specialist: Con Oseguera MD Urea nitrogen [Mass/Vol] 30 mg/dL High 8-23 [facility] Comment on above: Performed By: #### B MP #### [facility] [address] [place] [address] Clinical Quality Assurance Specialist: Con Oseguera MD Albumin/Globulin [Mass ratio] NOT REPORTED Normal 1.0-2.5 [facility] Comment on above: Performed By: #### B MP #### [facility] [address] [place] [address] Clinical Quality Assurance Specialist: Con Oseguera MD BUN/CRE Ratio NOT REPORTED Normal 9-20 [facility] Comment on above: Performed By: #### B MP #### [facility] [address] [place] [address] Clinical Quality Assurance Specialist: Con Oseguera MD Staging: NOT REPORTED Normal [facility] Comment on above: Performed By: #### B MP #### [facility] [address] [place] [address] Clinical Quality Assurance Specialist: Con Oseguera MD Comprehensive Metabolic Pane [facility] 03-07-2019 Albumin [Mass/Vol] 3.8 g/dL 3.5 - 5.2 g/dL [place] Albumin/Globulin [Mass ratio] NOT REPORTED [place] ALP [Catalytic activity/Vol] 166 U/L High 40 - 129 U/L [place] ALT [Catalytic activity/Vol] 28 U/L 5 - 41 U/L [place] Anion gap [Moles/Vol] 12 mmol/L 9 - 17 mmol/L [place] AST [Catalytic activity/Vol] 26 U/L <40 [place] Bilirubin Ql (U) 0.20 mg/dL Low 0.3 - 1.2 mg/dL [place], [place] Bun/Cre Ratio NOT REPORTED [place], [place] Calcium [Mass/Vol] 9.5 mg/dL 8.6 - 10. 4 mg/dL [place] Chloride [Moles/Vol] 98 mmol/L 98 - 107 mmol/L [place] CO2 [Moles/Vol] 28 mmol/L 20 - 31 mmol/L [place] Creatinine [Mass/Vol] 1.7 mg/dL High 0.7 - 1.2 mg/dL [place] GFR 47 mL/min Low >60 [place], [place] GFR Non- 39 mL/min Low >60 [place] GFR/1.73 sq M predicted among non-blacks MDRD (S/P/Bld) [Vol rate/Area] NOT REPORTED [place] GFR/1.73 sq M predicted among non-blacks MDRD (S/P/Bld) [Vol rate/Area] [place] Comment on above: Average GFR for 70 o r more years old: 75 mL/min/1.73sq m Chronic Kidney Disease: <60 mL/min/1.73sq m Kidney failure: <15 mL/min/1.73sq m eGFR calculated using average adult body mass. Additional eGFR calculator available at: http://www.[employer]/multiple_crcl_2011.htm Glucose [Mass/Vol] 63 mg/dL Low 70 - 99 mg/dL [place], [place] Potassium [Moles/Vol] 4.6 mmol/L 3.7 - 5.3 mmol/L [place] Protein [Mass/Vol] 6.8 g/dL 6.4 - 8.3 g/dL [place] Sodium [Moles/Vol] 138 mmol/L 135 - 144 mmol/L [place] Urea nitrogen [Mass/Vol] 30 mg/dL High 8 - 23 mg/dL [place] Lipaseon 03-07-2019 Lipase [Catalytic activity/Vol] 83 U/L High 13-60 [facility] Comment on above: Performed By: #### B MP #### [facility] [address] [place] [address] Clinical Quality Assurance Specialist: Con Oseguera MD Lipase [Catalytic activity/Vol] 83 U/L High 13 - 60 U/L [place] Microscopic Urinalysison Amorphous, UA NOT REPORTED None [place], [place] Bacteria, UA MODERATE Abnormal None [place] Casts UA NOT REPORTED /LPF [place] Crystals UA NOT REPORTED None /HPF [place] Epithelial Cells UA 0 TO 2 /HPF [place] Interpretation and review of laboratory results Abnormal [place] Mucus, UA NOT REPORTED None [place] Other Observations UA NOT REPORTED NOT REQ. [place] RBC (U) [#/Vol] 10 TO 20 /HPF [place] Renal Epithelial, Urine NOT REPORTED 0 /HPF [place] Trichomonas, UA NOT REPORTED None [facility] [place] WBC, UA 20 TO 50 /HPF [place] Yeast, UA NOT REPORTED None [place], [place] - [place] Otheron 03-07-2019 Immature granulocytes (Bld) [#/Vol] NOT REPORTED [place] Interpretation and review of laboratory results Abnormal [place] POC Glucose Fingerstickon Glucose [Mass/Vol] 167 mg/dL High 75 - 110 mg/dL [place] Interpretation and review of laboratory results Abnormal [place] Glucose [Mass/Vol] 124 mg/dL High 75 - 110 mg/dL [place] Interpretation and review of laboratory results Abnormal [place] POCT Glucoseon 03-07-2019 Glucose [Mass/Vol] 124 mg/dL [place] Interpretation and review of laboratory results Normal [place] QC OK? y [place] Troponinon 03-07-2019 Troponin I.cardiac [Mass/Vol] 27 ng/L High 0-22 [facility] Comment on above: Result Comment: High Sensitivity Troponin values cannot be compared with other Troponin methodologies. Patients with high levels of Biotin oral intake (i.e >5mg/day) may have falsely decreased Troponin levels. Samples collected within 8 hours of biotin intake may require additional information for diagnosis. Performed By: #### B MP #### [facility] [address] [facility] [place] [address] Clinical Quality Assurance Specialist: Con Oseguera MD Troponin I.cardiac [Mass/Vol] 29 ng/L High 0-22 [facility] Comment on above: Result Comment: High Sensitivity Troponin values cannot be compared with other Troponin methodologies. Patients with high levels of Biotin oral intake (i.e >5mg/day) may have falsely decreased Troponin levels. Samples collected within 8 hours of biotin intake may require additional information for diagnosis. Performed By: #### B MP #### [facility] [address] [facility] [place], [place] [id number] Clinical Quality Assurance Specialist: Con Oseguera MD Interpretation and review of laboratory results Abnormal [place] Troponin I.cardiac [Mass/Vol] NOT REPORTED [place] Troponin T.cardiac [Mass/Vol] NOT REPORTED <0.03 ng/mL [place] Troponin, High Sensitivity 27 ng/L High 0 - 22 ng/L [place] Comment on above: High Sensitivity Troponin values cannot be compared with other Troponin methodologies. Patients with high levels of Biotin oral intake (i.e >5mg/day) may have falsely decreased Troponin levels. Samples collected within 8 hours of biotin intake may require additional information for diagnosis. Troponin I.cardiac [Mass/Vol] NOT REPORTED Normal [facility] Comment on above: Performed By: #### B MP #### [facility] [address] [facility] [place], [place] [id number] Clinical Quality Assurance Specialist: Con Oseguera MD Troponin I.cardiac [Mass/Vol] NOT REPORTED Normal <0.03 [place] Comment on above: Performed By: #### B MP #### [facility] [place] [address] Clinical Quality Assurance Specialist: Con Oseguera MD Interpretation and review of laboratory results Abnormal [place] Troponin T.cardiac [Mass/Vol] NOT REPORTED <0.03 ng/mL [place] Troponin, High Sensitivity 29 ng/L High 0 - 22 ng/L [place] Comment on above: High Sensitivity Troponin values cannot be compared with other Troponin methodologies. Patients with high levels of Biotin oral intake (i.e >5mg/day) may have falsely decreased Troponin levels. Samples collected within 8 hours of biotin intake may require additional information for diagnosis. UA w/Reflex Cultureon 2018 Acetoacetic Acid,Ur Negative Normal NEG [facility] Comment on above: Performed By: #### B MP #### [facility] [address] [place] [address]. [place] [address] Clinical Quality Assurance Specialist: Con Oseguera MD Bilirubin, SemiQt,Ur Negative Normal NEG [facility] Comment on above: Performed By: #### B MP #### [facility] [address] [place] [address]. [place] [address] Clinical Quality Assurance Specialist: Con Oseguera MD Color (U) YELLOW Normal YEL [facility] Comment on above: Performed By: #### B MP #### [facility] [address] [place] [address]. [place] [address] Clinical Quality Assurance Specialist: Con Oseguera MD Glucose Ql (U) Negative Normal NEG [facility] Comment on above: Performed By: #### B MP #### [facility] [address] [place] [address]. [place] [address] Clinical Quality Assurance Specialist: Con Oseguera MD Hemoglobin, Ur MOD Abnormal NEG [facility] Comment on above: Performed By: #### B MP #### [facility] [address] [place] [address]. [place] [address] Clinical Quality Assurance Specialist: Con Oseguera MD Leukocyte esterase Test strip Ql (U) LARGE Abnormal NEG [facility] Comment on above: Performed By: #### B MP #### [facility] [address] [place] [address] Clinical Quality Assurance Specialist: Con Oseguera MD Nitrite,Ur Negative Normal NEG [facility] Comment on above: Performed By: #### B MP #### [facility] [address] [facility] [address] Clinical Quality Assurance Specialist: Con Oseguera MD pH (U) 6.5 [pH] Normal 5.0-8.0 [facility] Comment on above: Performed By: #### B MP #### [facility] [place] [address] Clinical Quality Assurance Specialist: Con Oseguera MD Protein Ql (U) 2+ Abnormal NEG [facility] Comment on above: Performed By: #### B MP #### [facility] [place] [address] Clinical Quality Assurance Specialist: Con Oseguera MD Specific gravity (U) [Rel density] 1.017 Normal 1.000-1.030 [facility] Comment on above: Performed By: #### B MP #### [facility] [place] [address] Clinical Quality Assurance Specialist: Con Oseguera MD Turbidity CLOUDY Abnormal CLEAR [facility] Comment on above: Performed By: #### B MP #### [facility] [place] [address] Clinical Quality Assurance Specialist: Con Oseguera MD Urobilinogen,Ur Normal Normal NORM [facility] Comment on above: Performed By: #### B MP #### [facility] [address] [facility] [address] Clinical Quality Assurance Specialist: Con Oseguera MD Comment NOT REPORTED Normal [facility] Comment on above: Performed By: #### B MP #### [facility] [address] [place] [address] Clinical Quality Assurance Specialist: Con Oseguera MD Urinalysis Reflex to Culture on 03-07-2019 Bilirubin Urine Negative NEGATIVE [facility] Color, UA YELLOW YELLOW [facility] Glucose, Ur Negative NEGATIVE [facility] Interpretation and review of laboratory results Abnormal [facility] Ketones Ql (U) Negative NEGATIVE [facility] [place] Leukocyte esterase Test strip Ql (U) LARGE Abnormal NEGATIVE [facility] Nitrite, Urine Negative NEGATIVE [facility] [place] pH, UA 6.5 [facility] Protein (U) [Mass/Vol] 2+ Abnormal NEGATIVE [facility] [place] Specific [place], UA 1.017 [facility] Turbidity UA CLOUDY Abnormal CLEAR [facility] [place] Urinalysis Comments NOT REPORTED [facility] Urine Hgb MOD Abnormal NEGATIVE [facility] Urobilinogen, Urine Normal Normal [facility] Urinalysis,Microon 9 ----- Normal [facility] Comment on above: Performed By: #### B MP #### [facility] [address] [facility] [place] [address] Clinical Quality Assurance Specialist: Con Oseguera MD Bacteria LM.HPF (Urine sed) [#/Area] MODERATE Abnormal NONE [facility] Comment on above: Performed By: #### B MP #### [facility] [address] [place] [address]. [place] [address] Clinical Quality Assurance Specialist: Con Oseguera MD Epithelial cells LM.HPF (Urine sed) [#/Area] 0 TO 2 Normal [facility] Comment on above: Performed By: #### B MP #### [facility] [address] [place] [address] Clinical Quality Assurance Specialist: Con Oseguera MD RBC (U) [#/Vol] 10 TO 20 Normal [facility] Comment on above: Performed By: #### B MP #### [facility] [address] [place] [address] Clinical Quality Assurance Specialist: Con Oseguera MD WBC (U) [#/Vol] 20 TO 50 Normal [facility] Comment on above: Performed By: #### B MP #### [facility] [address] [place] [address] Clinical Quality Assurance Specialist: Con Oseguera MD Amorphous sediment LM Ql (Urine sed) NOT REPORTED Normal [facility] Comment on above: Performed By: #### B MP #### [facility] [address] [place] [address] Clinical Quality Assurance Specialist: Con Oseguera MD Casts LM.LPF (Urine sed) [#/Area] NOT REPORTED Normal [facility] Comment on above: Performed By: #### B MP #### [facility] [address] [place] [address] Clinical Quality Assurance Specialist: Con Oseguera MD Crystals LM Nom (Urine sed) NOT REPORTED Normal NONE [facility] Comment on above: Performed By: #### B MP #### [facility] [address] [place] [address] Clinical Quality Assurance Specialist: Con Oseguera MD Epithelial, Renal NOT REPORTED Normal 0 [facility] Comment on above: Performed By: #### B MP #### [facility] [address] [place] [address] Clinical Quality Assurance Specialist: Con Oseguera MD Mucus Strands NOT REPORTED Normal NONE [facility] Comment on above: Performed By: #### B MP #### [facility] [address] [place] [address] [place] [address] Clinical Quality Assurance Specialist: Con Oseguera MD Other Observations NOT REPORTED Normal NREQ [facility] Comment on above: Performed By: #### B MP #### [facility] [address] [facility] [place] [address] Clinical Quality Assurance Specialist: Con Oseguera MD Trichomonas NOT REPORTED Normal NONE [facility] Comment on above: Performed By: #### B MP #### [facility] [address] [facility] [place] [address] Clinical Quality Assurance Specialist: Con Oseguera MD Yeast LM Ql (Urine sed) NOT REPORTED Normal NONE [facility] Comment on above: Performed By: #### B MP #### [facility] [place] [address] Clinical Quality Assurance Specialist: Con Oseguera MD XR CHEST (2 VW)on 03-07-2019 XR CHEST (2 VW) EXAMINATION: TWO XRAY VIEWS OF THE CHEST 03/07/2019 4:28 pm COMPARISON: December 10 HISTORY: ORDERING SYSTEM PROVIDED HISTORY: history of pleural effusion TECHNOLOGIST PROVIDED HISTORY: history of pleural effusion Reason for Exam: history of pleural effusion Acuity: Unknown Type of Exam: Unknown FINDINGS: Left retrocardiac consolidation is noted. There is partial silhouetting of the hemidiaphragm. Ill-defined density along the right hemidiaphragm and in the lateral aspect of the right lower lobe is also noted. Apical pleural thickening is noted. Small effusions are suggested bilaterally IMPRESSION: Multifocal airspace disease bilaterally. Pneumonia is favored over atypical edema Interpreted by: Yoni Faye MD Signed by: Yoni Faye MD 03/07/19 Final result Normal [facility] XR CHEST STANDARD (2 VW)on 0 03-07-2019 Stan, [facility] Incoming Radiant Results From [employer]/Front Row - 03/07/2019 5:45 PM EDT EXAMINATION: TWO XRAY VIEWS OF THE CHEST 03/07/2019 4:28 pm COMPARISON: December 10 HISTORY: ORDERING SYSTEM PROVIDED HISTORY: history of pleural effusion TECHNOLOGIST PROVIDED HISTORY: history of pleural effusion Reason for Exam: history of pleural effusion Acuity: Unknown Type of Exam: Unknown FINDINGS: Left retrocardiac consolidation is noted. There is partial silhouetting of the hemidiaphragm. Ill-defined density along the right hemidiaphragm and in the lateral aspect of the right lower lobe is also noted. Apical pleural thickening is noted. Small effusions are suggested bilaterally IMPRESSION: Multifocal airspace disease bilaterally. Pneumonia is favored over atypical edema [place], [place] Multifocal airspace disease bilaterally. Pneumonia is favored over atypical edema [place] EXAMINATION: TWO XRA Y VIEWS OF THE CHEST 03/07/2019 4:28 pm COMPARISON: December 10 HISTORY: ORDERING SYSTEM PROVIDED HISTORY: history of pleural effusion TECHNOLOGIST PROVIDED HISTORY: history of pleural effusion Reason for Exam: history of pleural effusion Acuity: Unknown Type of Exam: Unknown FINDINGS: Left retrocardiac consolidation is noted. There is partial silhouetting of the hemidiaphragm. Ill-defined density along the right hemidiaphragm and in the lateral aspect of the right lower lobe is also noted. Apical pleural thickening is noted. Small effusions are suggested bilaterally [place], [place] Magnesiumon 12-13-2018 Magnesium [Mass/Vol] 2.1 mg/dL Normal 1.6-2.6 [facility] Comment on above: Performed By: #### B MP #### [facility] [address] [facility] [place], [place] [id number] Clinical Quality Assurance Specialist: Con Oseguera MD Basic Metabolic Profon 12-11 (cont.) Normal [facility] Comment on above: Result Comment: Aver age GFR for 70 or more years old: 75 mL/min/1.73sq m Chronic Kidney Disease: <60 mL/min/1.73sq m Kidney failure: <15 mL/min/1.73sq m eGFR calculated using average adult body mass. Additional eGFR calculator available at: http://www.[employer].com/multiple_crcl_2012.htm Performed By: #### B MP #### [facility] [address] [facility] [place], [place] [id number] Clinical Quality Assurance Specialist: Con Oseguera MD Anion gap [Moles/Vol] 13 mmol/L Normal 9-17 [facility] Comment on above: Performed By: #### B MP #### [facility] [address] [place] [address] Clinical Quality Assurance Specialist: Con Oseguera MD Calcium [Mass/Vol] 8.6 mg/dL Normal 8.6-10.4 [facility] Comment on above: Performed By: #### B MP #### [facility] [address] [place] [address] Clinical Quality Assurance Specialist: Con Oseguera MD Chloride [Moles/Vol] 100 mmol/L Normal 98-107 [facility] Comment on above: Performed By: #### B MP #### [facility] [address] [place] [address] Clinical Quality Assurance Specialist: Con Oseguera MD CO2 [Moles/Vol] 22 mmol/L Normal 20-31 [facility] Comment on above: Performed By: #### B MP #### [facility] [address] [place] [address] Clinical Quality Assurance Specialist: Con Oseguera MD Creatinine [Mass/Vol] 1.02 mg/dL Normal 0.70-1.20 [facility] Comment on above: Performed By: #### B MP #### [facility] [address] [place] [address] Clinical Quality Assurance Specialist: Con Oseguera MD GFR, Amer >60 Normal >60 [facility] Comment on above: Performed By: #### B MP #### [facility] [address] [place] [address] Clinical Quality Assurance Specialist: Con Oseguera MD GFR,non Amer >60 Normal >60 [facility] Comment on above: Performed By: #### B MP #### [facility] [address] [place] [address] Clinical Quality Assurance Specialist: Con Oseguera MD Glucose [Mass/Vol] 151 mg/dL High 70-99 [facility] Comment on above: Performed By: #### B MP #### [facility] [address] [place] [address] Clinical Quality Assurance Specialist: Con Oseguera MD Potassium [Moles/Vol] 4.0 mmol/L Normal 3.7-5.3 [facility] Comment on above: Performed By: #### B MP #### [facility] [address] [place] [address] Clinical Quality Assurance Specialist: Con Oseguera MD Sodium [Moles/Vol] 135 mmol/L Normal 135-144 [facility] Comment on above: Performed By: #### B MP #### [facility] [address] [facility] [address] Clinical Quality Assurance Specialist: Con Oseguera MD Urea nitrogen [Mass/Vol] 22 mg/dL Normal 8-23 [facility] Comment on above: Performed By: #### B MP #### [facility] [place] [address] Clinical Quality Assurance Specialist: Con Oseguera MD BUN/CRE Ratio NOT REPORTED Normal 9-20 [facility] Comment on above: Performed By: #### B MP #### [facility] [address] [facility] [address] Clinical Quality Assurance Specialist: Con Oseguera MD Staging: NOT REPORTED Normal [facility] Comment on above: Performed By: #### B MP #### [facility] [place] [address] Clinical Quality Assurance Specialist: Con Oseguera MD CBC with Diffon 12-11-2018 Abs. Basophil 0.00 k/uL Normal 0.0-0.2 [facility] Comment on above: Performed By: #### B MP #### [facility] [address] [place] [address] Clinical Quality Assurance Specialist: Con Oseguera MD Abs.Neutrophil (Seg) 9.27 k/uL High 1.3-9.1 [facility] Comment on above: Performed By: #### B MP #### [facility] [address] [place] [address] Clinical Quality Assurance Specialist: Con Oseguera MD Basophils/100 WBC (Bld) 0 % Normal 0-2 [facility] Comment on above: Performed By: #### B MP #### [facility] [place] [address] Clinical Quality Assurance Specialist: Con Oseguera MD Eosinophils (Bld) [#/Vol] 0.12 10*3/uL Normal 0.0-0.4 [facility] Comment on above: Performed By: #### B MP #### [facility] [address] [place] [address] Clinical Quality Assurance Specialist: Con Oseguera MD Eosinophils/100 WBC (Bld) 1 % Normal 0-4 [facility] Comment on above: Performed By: #### B MP #### [facility] [address] [place] [address] Clinical Quality Assurance Specialist: Con Oseguera MD Lymphocytes (Bld) [#/Vol] 1.22 10*3/uL Normal 1.0-4.8 [facility] Comment on above: Performed By: #### B MP #### [facility] [address] [place] [address] Clinical Quality Assurance Specialist: Con Oseguera MD Lymphocytes/100 WBC (Bld) 10 % Low 24-44 [facility] Comment on above: Performed By: #### B MP #### [facility] [address] [place] [address] Clinical Quality Assurance Specialist: Con Oseguera MD Monocytes (Bld) [#/Vol] 1.59 10*3/uL High 0.1-1.3 [facility] Comment on above: Performed By: #### B MP #### [facility] [address] [place] [address] Clinical Quality Assurance Specialist: Con Oseguera MD Monocytes/100 WBC (Bld) 13 % High 1-7 [facility] Comment on above: Performed By: #### B MP #### [facility] [address] [place] [address] Clinical Quality Assurance Specialist: Con Oseguera MD Morphology Theo (Bld) [Interp] ANISOCYTOSIS PRESENT Normal [facility] Comment on above: Result Comment: MICR OCYTOSIS PRESENT HYPOCHROMIA PRESENT 1+ POLYCHROMASIA 1+ ECHINOCYTES 1+ ELLIPTOCYTES Performed By: #### B MP #### [facility] [address] [place] [address] Clinical Quality Assurance Specialist: Con Oseguera MD Neutrophil (Seg) 76 % High 36-66 [facility] Comment on above: Performed By: #### B MP #### [facility] [address] [place] [address] Clinical Quality Assurance Specialist: Con Oseguera MD Erythrocyte distribution width (RBC) [Ratio] 18.7 % High 11.5-14.9 [facility] Comment on above: Performed By: #### B MP #### [facility] [address] [place] [address] Clinical Quality Assurance Specialist: Con Oseguera MD Hematocrit (Bld) [Volume fraction] 26.2 % Low 41-53 [facility] Comment on above: Performed By: #### B MP #### [facility] [address] [place] [address] Clinical Quality Assurance Specialist: Con Oseguera MD Hemoglobin (Bld) [Mass/Vol] 8.1 g/dL Low 13.5-17.5 [facility] Comment on above: Performed By: #### B MP #### [facility] [address] [place] [address] Clinical Quality Assurance Specialist: Con Oseguera MD MCH (RBC) [Entitic mass] 20.5 pg Low 26-34 [facility] Comment on above: Performed By: #### B MP #### [facility] [address] [place] [address] Clinical Quality Assurance Specialist: Con Oseguera MD MCHC (RBC) [Mass/Vol] 30.9 g/dL Low 31-37 [facility] Comment on above: Performed By: #### B MP #### [facility] [place] [address] Clinical Quality Assurance Specialist: Con Oseguera MD MCV (RBC) [Entitic vol] 66.4 fL Low 80-100 [facility] Comment on above: Performed By: #### B MP #### [facility] [place] [address] Clinical Quality Assurance Specialist: Con Oseguera MD Platelet mean volume (Bld) [Entitic vol] 9.3 fL Normal 6.0-12.0 [facility] Comment on above: Performed By: #### B MP #### [facility] [place] [address] Clinical Quality Assurance Specialist: Con Oseguera MD Platelets (Bld) [#/Vol] 234 10*3/uL Normal 150-450 [facility] Comment on above: Performed By: #### B MP #### [facility] [place] [address] Clinical Quality Assurance Specialist: Con Oseguera MD RBC (Bld) [#/Vol] 3.94 10*6/uL Low 4.5-5.9 [facility] Comment on above: Performed By: #### B MP #### [facility] [address] [facility] [address] Clinical Quality Assurance Specialist: Con Oseguera MD WBC (Bld) [#/Vol] 12.2 10*3/uL High 3.5-11.0 [facility] Comment on above: Performed By: #### B MP #### [facility] [address] [facility] [address] Clinical Quality Assurance Specialist: Con Oseguera MD Abs.Imm.Granulocyte NOT REPORTED Normal 0.00-0.30 [facility] Comment on above: Performed By: #### B MP #### [facility] [place] [address] Clinical Quality Assurance Specialist: Con Oseguera MD Auto Diff Performed NOT REPORTED Normal [facility] Comment on above: Performed By: #### B MP #### [facility] [place] [address] Clinical Quality Assurance Specialist: Con Oseguera MD Immature granulocytes (Bld) [#/Vol] NOT REPORTED Normal 0 [facility] Comment on above: Performed By: #### B MP #### [facility] [address] Clinical Quality Assurance Specialist: Con Oseguera MD NRBC Automated NOT REPORTED Normal [facility] Comment on above: Performed By: #### B MP #### [facility] [address] [facility] [address] Clinical Quality Assurance Specialist: Con Oseguera MD Platelets (Bld) [#/Vol] NOT REPORTED Normal [facility] Comment on above: Performed By: #### B MP #### [facility] [address] [facility] [address] Clinical Quality Assurance Specialist: Con Oseguera MD RBC morphology finding Nom (Bld) NOT REPORTED Normal [facility] Comment on above: Performed By: #### B MP #### [facility] [address] [facility] [place] [address] Clinical Quality Assurance Specialist: Con Oseguera MD WBC Morphology NOT REPORTED Normal [facility] Comment on above: Performed By: #### B MP #### [facility] [address] [facility] [place] [address] Clinical Quality Assurance Specialist: Con Oseguera MD Brain Natri. Peptideon 12-10 Natriuretic peptide B (Bld) [Mass/Vol] 1543 pg/mL High <300 [facility] Comment on above: Result Comment: Pro- BNP results cannot be compared to BNP results. Performed By: #### R EJEC, LIP, TROPI, CP, DIGC, BNP ####[facility] [address] [facility], [place] [phone] Director: Con Oseguera MD Natriuretic peptide B (Bld) [Mass/Vol] Pro-BNP Reference Range: Normal [facility] Comment on above: Result Comment: Rule Out: <300 Miranda Zone: Age <50 300-450 Age 50-75 300-900 Age >75 300-1800 Usually represents mild to moderate HF but other cardiopulmonary causes cannot be ruled out. Rule In: Age <50 >450 Age 50-75 >900 Age >75 >1800 Performed By: #### R EJEC, LIP, TROPI, CP, DIGC, BNP ####[facility] [id number] [facility] [place] [address] Lab Director: Con Oseguera MD CBC with Diffon 12-10-2018 Abs. Basophil 0.00 k/uL Normal 0.0-0.2 [facility] Comment on above: Performed By: #### P T, CDP ####[facility] [address] [facility] [place] [address] Lab Director: Con Oseguera MD Abs.Neutrophil (Seg) 10.73 k/uL High 1.3-9.1 [facility] Comment on above: Performed By: #### P T, CDP ####[facility] [address], [place] [phone] Director: Con Oseguera MD Basophils/100 WBC (Bld) 0 % Normal 0-2 [facility] Comment on above: Performed By: #### P T, CDP ####[facility] [address] [place] [address] Lab Director: Con Oseguera MD Eosinophils (Bld) [#/Vol] 0.13 10*3/uL Normal 0.0-0.4 [facility] Comment on above: Performed By: #### P T, CDP ####[facility] [address], [place] [phone] Director: Con Oseguera MD Eosinophils/100 WBC (Bld) 1 % Normal 0-4 [facility] Comment on above: Performed By: #### P T, CDP ####[facility] [address], [place] [phone] Director: Con Oseguera MD Lymphocytes (Bld) [#/Vol] 1.07 10*3/uL Normal 1.0-4.8 [facility] Comment on above: Performed By: #### P T, CDP ####[facility] [address], [place] [phone] Director: Con Oseguera MD Lymphocytes/100 WBC (Bld) 8 % Low 24-44 [facility] Comment on above: Performed By: #### P T, CDP ####[facility] [address], [place] [phone] Director: Con Oseguera MD Monocytes (Bld) [#/Vol] 1.47 10*3/uL High 0.1-1.3 [facility] Comment on above: Performed By: #### P T, CDP ####[facility] [address], [place] [phone] Director: Con Oseguera MD Monocytes/100 WBC (Bld) 11 % High 1-7 [facility] Comment on above: Performed By: #### P T, CDP ####[facility] [address], [place] [phone] Director: Con Oseguera MD Morphology Theo (Bld) [Interp] ANISOCYTOSIS PRESENT Normal [facility] Comment on above: Result Comment: HYPO CHROMIA PRESENT MICROCYTOSIS PRESENT 1+ ELLIPTOCYTES FEW ECHINOCYTES Performed By: #### P T, CDP ####[facility] [address], [place] [phone] Director: Con Oseguera MD Neutrophil (Seg) 80 % High 36-66 [facility] Comment on above: Performed By: #### P T, CDP ####[facility] [address], [place] [phone] Director: Con Oseguera MD Erythrocyte distribution width (RBC) [Ratio] 19.0 % High 11.5-14.9 [facility] Comment on above: Performed By: #### P T, CDP ####[facility] [address], [place] [phone] Director: Con Oseguera MD Hematocrit (Bld) [Volume fraction] 28.3 % Low 41-53 [facility] Comment on above: Performed By: #### P T, CDP ####[facility] [address], [place] [phone] Director: Con Oseguera MD Hemoglobin (Bld) [Mass/Vol] 8.7 g/dL Low 13.5-17.5 [facility] Comment on above: Performed By: #### P T, CDP ####[facility] [address] [facility], [place] [phone] Director: Con Oseguera MD MCH (RBC) [Entitic mass] 20.6 pg Low 26-34 [facility] Comment on above: Performed By: #### P T, CDP ####[facility] [address] [facility], [place] [phone] Director: Con Oseguera MD MCHC (RBC) [Mass/Vol] 30.7 g/dL Low 31-37 [facility] Comment on above: Performed By: #### P T, CDP ####[facility] [address] [facility], [place] [phone] Director: Con Oseguera MD MCV (RBC) [Entitic vol] 67.1 fL Low 80-100 [facility] Comment on above: Performed By: #### P T, CDP ####[facility] [address] [facility] [place] [address] Lab Director: Con Oseguera MD Platelet mean volume (Bld) [Entitic vol] 9.0 fL Normal 6.0-12.0 [facility] Comment on above: Performed By: #### P T, CDP ####[facility] [address] [facility], [place] [phone] Director: Con Oseguera MD Platelets (Bld) [#/Vol] 249 10*3/uL Normal 150-450 [facility] Comment on above: Performed By: #### P T, CDP ####[facility] [id number] [facility], [place] [phone] Director: Con Oseguera MD RBC (Bld) [#/Vol] 4.22 10*6/uL Low 4.5-5.9 [facility] Comment on above: Performed By: #### P T, CDP ####[facility] [address] [place] [address] Lab Director: Con Oseguera MD WBC (Bld) [#/Vol] 13.4 10*3/uL High 3.5-11.0 [facility] Comment on above: Performed By: #### P T, CDP ####[facility] [address], [place] [phone] Director: Con Oseguera MD Abs.Imm.Granulocyte NOT REPORTED Normal 0.00-0.30 [facility] Comment on above: Performed By: #### P T, CDP ####[facility] [id number] [facility], [place] [address])[phone] Director: Con Oseguera MD Auto Diff Performed NOT REPORTED Normal [facility] Comment on above: Performed By: #### P T, CDP ####[facility] [address] [facility], [place] [address])[phone] Director: Con Oseguera MD Immature granulocytes (Bld) [#/Vol] NOT REPORTED Normal 0 [facility] Comment on above: Performed By: #### P T, CDP ####[facility] [id number] [facility], [place] [address])[phone] Director: Con Oseguera MD NRBC Automated NOT REPORTED Normal [facility] Comment on above: Performed By: #### P T, CDP ####[facility] [facility] [id number] [facility].[place], [place] [address])[phone] Director: Con Oseguera MD Platelets (Bld) [#/Vol] NOT REPORTED Normal [facility] Comment on above: Performed By: #### P T, CDP ####[facility] [address] [facility] [place] [address] Lab Director: Con Oseguera MD RBC morphology finding Nom (Bld) NOT REPORTED Normal [facility] Comment on above: Performed By: #### P T, CDP ####[facility] [address] [place] [address] Lab Director: Con Oseguera MD WBC Morphology NOT REPORTED Normal [facility] Comment on above: Performed By: #### P T, CDP ####[facility] [id number] [place] [address] lab Director: Con Oseguera MD CT ABDOMEN PELVIS WO CONTRAS Ton 12-10-2018 CT ABDOMEN PELVIS WO CONTRAST EXAMINATION: CT OF THE ABDOMEN AND PELVIS WITHOUT CONTRAST 12/10/2018 4:29 pm TECHNIQUE: CT of the abdomen and pelvis was performed without the administration of intravenous contrast. Multiplanar reformatted images are provided for review. Dose modulation, iterative reconstruction, and/or weight based adjustment of the mA/kV was utilized to reduce the radiation dose to as low as reasonably achievable. COMPARISON: None. HISTORY: ORDERING SYSTEM PROVIDED HISTORY: abd pain TECHNOLOGIST PROVIDED HISTORY: Ordering Physician Provided Reason for Exam: Abdominal pain with diarrhea. Acuity: Acute Type of Exam: Initial Relevant Medical/Surgical History: Surgical hx - samantha, appy and hernia repair. Hx - VANESA, Diverticulosis, HBP, Diabetes (Type II) and renal cyst. FINDINGS: Lower Chest: Cardiomegaly with smooth septal thickening involving the lung bases with areas of atelectasis/scarring. Trace pleural effusions. No pericardial effusion. Organs: Suboptimal evaluation due to lack of IV contrast. Diffuse hepatic steatosis is noted. Gallbladder has been removed. Pancreas, spleen and adrenal glands all appear unremarkable. Large left renal cyst measuring 8.5 cm. No hydronephrosis or stone involving either kidney. Abdominal aorta demonstrates severe calcification without aneurysm. GI/Bowel: Small hiatal hernia. Distal stomach appears unremarkable. Duodenal diverticulum is noted involving the 2nd portion the duodenum. Small bowel appears nondilated. Appendix is normal. Sigmoid and descending colon diverticulosis. Pelvis: Prostatomegaly measuring 6 cm. There is pressure upon the inferior aspect the urinary bladder. Diverticulosis of the urinary bladder wall. Peritoneum/Retroperit oneum: No free air. No free fluid. No lymphadenopathy. Bones/Soft Tissues: Abdominal wall demonstrates no acute findings. Osseous structures demonstrate mild degenerative change. No aggressive bony lesions. IMPRESSION: *No acute intra-abdominal process. *Cardiomegaly with smooth septal thickening involving the lung bases and trace bilateral pleural effusions suggestive of CHF/pulmonary edema. *Hepatic steatosis. *Small hiatal hernia. *Duodenal diverticulum. *Prostatomegaly with impression upon inferior aspect the urinary bladder with urinary bladder diverticulosis. Findings suggest bladder outlet obstruction. Interpreted by: Hawk Sawyer Jr., DO Signed by: Hawk Sawyer Jr., DO 12/10/18 Final result Normal [facility] Comp Metabolic Profon 2018 (cont.) Normal [facility] Comment on above: Result Comment: Aver age GFR for 70 or more years old: 75 mL/min/1.73sq m Chronic Kidney Disease: <60 mL/min/1.73sq m Kidney failure: <15 mL/min/1.73sq m eGFR calculated using average adult body mass. Additional eGFR calculator available at: http://www.[employer]/multiple_crcl_2012.htm Performed By: #### R EJEC, LIP, TROPI, CP, DIGC, BNP ####[facility] [id number] [facility] [place] [address] Lab Director: Con Oseguera MD Alkaline Phos 125 U/L Normal 40-129 [facility] Comment on above: Result Comment: SPEC IMEN SLIGHTLY HEMOLYZED, RESULTS MAY BE ADVERSELY AFFECTED. Performed By: #### R EJEC, LIP, TROPI, CP, DIGC, BNP ####[facility] [id number] [facility] [place] [address] Lab Director: Con Oseguera MD ALT [Catalytic activity/Vol] 15 U/L Normal 5-41 [facility] Comment on above: Result Comment: SPEC IMEN SLIGHTLY HEMOLYZED, RESULTS MAY BE ADVERSELY AFFECTED. Performed By: #### R EJEC, LIP, TROPI, CP, DIGC, BNP ####[facility] [id number] [place] [address] Lab Director: Con Oseguera MD Anion gap [Moles/Vol] 17 mmol/L Normal 9-17 [facility] Comment on above: Performed By: #### R EJEC, LIP, TROPI, CP, DIGC, BNP ####[facility] [address] [place] [address] Lab Director: Con Oseguera MD AST [Catalytic activity/Vol] 28 U/L Normal <40 [facility] Comment on above: Result Comment: SPEC IMEN SLIGHTLY HEMOLYZED, RESULTS MAY BE ADVERSELY AFFECTED. Performed By: #### R EJEC, LIP, TROPI, CP, DIGC, BNP ####[facility] [id number] [facility] [place] [address] Lab Director: Con Oseguera MD Bilirubin Ql (U) 0.51 mg/dL Normal 0.3-1.2 [facility] Comment on above: Result Comment: SPEC IMEN SLIGHTLY HEMOLYZED, RESULTS MAY BE ADVERSELY AFFECTED. Performed By: #### R EJEC, LIP, TROPI, CP, DIGC, BNP ####[facility] [address] [facility] [address] Lab Director: Con Oseguera MD Calcium [Mass/Vol] 9.1 mg/dL Normal 8.6-10.4 [facility] Comment on above: Result Comment: SPEC IMEN SLIGHTLY HEMOLYZED, RESULTS MAY BE ADVERSELY AFFECTED. Performed By: #### R EJEC, LIP, TROPI, CP, DIGC, BNP ####[facility] [id number] [facility] [place] [address] Lab Director: Con Oseguera MD GFR, Amer >60 Normal >60 [facility] Comment on above: Performed By: #### R EJEC, LIP, TROPI, CP, DIGC, BNP ####[facility] [address] [place] [address] Lab Director: Con Oseguera MD GFR,non Amer >60 Normal >60 [facility] Comment on above: Performed By: #### R EJEC, LIP, TROPI, CP, DIGC, BNP ####[facility] [address] [place] [address] Lab Director: Con Oseguera MD Potassium [Moles/Vol] 4.8 mmol/L Normal 3.7-5.3 [facility] Comment on above: Result Comment: SPEC IMEN SLIGHTLY HEMOLYZED, RESULTS MAY BE ADVERSELY AFFECTED. Performed By: #### R EJEC, LIP, TROPI, CP, DIGC, BNP ####[facility] [address] [place] [address] Lab Director: Con Oseguera MD Protein [Mass/Vol] 6.9 g/dL Normal 6.4-8.3 [facility] Comment on above: Result Comment: SPEC IMEN SLIGHTLY HEMOLYZED, RESULTS MAY BE ADVERSELY AFFECTED. Performed By: #### R EJEC, LIP, TROPI, CP, DIGC, BNP ####[facility] [address] [place] [address] Lab Director: Con Oseguera MD Sodium [Moles/Vol] 134 mmol/L Low 135-144 [facility] Comment on above: Result Comment: SPEC IMEN SLIGHTLY HEMOLYZED, RESULTS MAY BE ADVERSELY AFFECTED. Performed By: #### R EJEC, LIP, TROPI, CP, DIGC, BNP ####[facility] [address] [place] [address] Lab Director: Con Oseguera MD Albumin [Mass/Vol] 4.1 g/dL Normal 3.5-5.2 [facility] Comment on above: Performed By: #### R EJEC, LIP, TROPI, CP, DIGC, BNP ####[facility] [address] [place] [address] Lab Director: Con Oseguera MD Chloride [Moles/Vol] 99 mmol/L Normal 98-107 [facility] Comment on above: Performed By: #### R EJEC, LIP, TROPI, CP, DIGC, BNP ####[facility] [address] [place] [address] Lab Director: Con Oseguera MD CO2 [Moles/Vol] 18 mmol/L Low 20-31 [facility] Comment on above: Performed By: #### R EJEC, LIP, TROPI, CP, DIGC, BNP ####[facility] [address] [place] [address] Lab Director: Con Oseguera MD Creatinine [Mass/Vol] 0.98 mg/dL Normal 0.70-1.20 [facility] Comment on above: Performed By: #### R EJEC, LIP, TROPI, CP, DIGC, BNP ####[facility] [address] [place] [address] Lab Director: Con Oseguera MD Glucose [Mass/Vol] 148 mg/dL High 70-99 [facility] Comment on above: Performed By: #### R EJEC, LIP, TROPI, CP, DIGC, BNP ####[facility] [address] [place] [address] Lab Director: Con Oseguera MD Urea nitrogen [Mass/Vol] 24 mg/dL High 8-23 [facility] Comment on above: Performed By: #### R EJEC, LIP, TROPI, CP, DIGC, BNP ####[facility] [address] [place] [address] Lab Director: Con Oseguera MD Albumin/Globulin [Mass ratio] NOT REPORTED Normal 1.0-2.5 [facility] Comment on above: Performed By: #### R EJEC, LIP, TROPI, CP, DIGC, BNP ####[facility] [address], [place] [phone] Director: Con Oseguera MD BUN/CRE Ratio NOT REPORTED Normal 9-20 [facility] Comment on above: Performed By: #### R EJEC, LIP, TROPI, CP, DIGC, BNP ####[facility] [address], [place] [phone] Director: Con Oseguear MD Staging: NOT REPORTED Normal [facility] Comment on above: Performed By: #### R EJEC, LIP, TROPI, CP, DIGC, BNP ####[facility] [id number] [facility], [place] [address])[phone] Director: Con Oseguera MD Digoxinon 12-10-2018 Digoxin [Mass/Vol] ng/mL Low 0.5-2.0 [facility] Comment on above: Result Comment: Digoxin Reference Range: Heart Failure 0.5-0.9 Atrial Fibrillation 0.8-2.0 Performed By: #### R EJEC, LIP, TROPI, CP, DIGC, BNP ####[facility] [address] [facility], [place] [address])[phone] Director: Con Oseguera MD Digoxin [Mass/Vol] UNKNOWN Normal [facility] Comment on above: Performed By: #### R EJEC, LIP, TROPI, CP, DIGC, BNP ####[facility] [address] [facility].[place], [place] [phone] Director: Con Oseguera MD Lipaseon 12-10-2018 Lipase [Catalytic activity/Vol] 48 U/L Normal 13-60 [facility] Comment on above: Result Comment: SPEC IMEN SLIGHTLY HEMOLYZED, RESULTS MAY BE ADVERSELY AFFECTED. Performed By: #### B MP #### [facility] [address] [place] [address] Clinical Quality Assurance Specialist: Con Oseguera MD PTon 12-10-2018 INR Coag (PPP) [Relative time] 1.3 {INR} Normal [facility] Comment on above: Result Comment: Non-therapeutic Range: INR = 0.9-1.2 Therapeutic Range: Moderate Anticoagulant Intensity: INR = 2.0-3.0 High Anticoagulant Intensity: INR = 2.5-3.5 Performed By: #### P T, CDP ####[facility] [address] [place] [address] Lab Director: Con Oseguera MD PT Coag (PPP) [Time] 16.5 s High 11.8-14.6 [facility] Comment on above: Performed By: #### P T, CDP ####[facility] [id number] [place] [address] Lab Director: Con Oseguera MD Specimen Rejectionon 019 Reason for rejection Unable to perform testing: Specimen clotted. Normal [facility] Comment on above: Performed By: #### B MP #### [facility] [address] [place] [address] Clinical Quality Assurance Specialist: Con Oseguera MD Source of sample .BLOOD Normal [facility] Comment on above: Performed By: #### B MP #### [facility] [address] [place] [address] Clinical Quality Assurance Specialist: Con Oseguera MD Test ordered CDP Normal [facility] Comment on above: Performed By: #### B MP #### [facility] [address] [place] [address] Clinical Quality Assurance Specialist: Con Oseguera MD ----- NOT REPORTED Normal [facility] Comment on above: Performed By: #### B MP #### [facility] [address] [facility] [address] Clinical Quality Assurance Specialist: Con Oseguera MD Troponinon 12-10-2018 Troponin I.cardiac [Mass/Vol] 28 ng/L High 0-22 [facility] Comment on above: Result Comment: High Sensitivity Troponin values cannot be compared with other Troponin methodologies. Patients with high levels of Biotin oral intake (i.e >5mg/day) may have falsely decreased Troponin levels. Samples collected within 8 hours of biotin intake may require additional information for diagnosis. Performed By: #### T TARAI ####[facility] [id number] [facility], [place] [phone] Director: Con Oseguera MD Troponin I.cardiac [Mass/Vol] NOT REPORTED Normal [facility] Comment on above: Performed By: #### T ROPI ####[facility] [id number] [facility], [place] [phone] Director: Con Oseguera MD Troponin I.cardiac [Mass/Vol] 30 ng/L [facility] 0-22 [facility] Comment on above: Result Comment: High Sensitivity Troponin values cannot be compared with other Troponin methodologies. Patients with high levels of Biotin oral intake (i.e >5mg/day) may have falsely decreased Troponin levels. Samples collected within 8 hours of biotin intake may require additional information for diagnosis. SPECIMEN SLIGHTLY HEMOLYZED, RESULTS MAY BE ADVERSELY AFFECTED. Performed By: #### R EJEC, LIP, TROPI, CP, DIGC, BNP ####[facility] [id number] [facility] [place] [address] Lab Director: Con Oseguera MD Troponin I.cardiac [Mass/Vol] NOT REPORTED Normal [facility] Comment on above: Performed By: #### R EJEC, LIP, TROPI, CP, DIGC, BNP ####[facility] [id number] [facility] [place] [address] Lab Director: Con Oseguera MD Urinalysis, Routineon 2018 Acetoacetic Acid,Ur Negative Normal NEG [facility] Comment on above: Performed By: #### U A ####[facility] [address] [place] [address] Lab Director: Con Oseguera MD Bilirubin, SemiQt,Ur Negative Normal NEG [facility] Comment on above: Performed By: #### U A ####[facility] [address] [place] [address] Lab Director: Con Oseguera MD Color (U) YELLOW Normal YEL [facility] Comment on above: Performed By: #### U A ####[facility] [address] [place] [address] Lab Director: Con Oseguera MD Comment Microscopic exam not performed based on chemical results unless requested in Normal [facility] Comment on above: Result Comment: orig inal order. Performed By: #### U A ####[facility] [address] [place] [address] Lab Director: Con Oseguera MD Glucose Ql (U) Negative Normal NEG [facility] Comment on above: Performed By: #### U A ####[facility] [address] [place] [address] Lab Director: Con Oseguera MD Hemoglobin, Ur Negative Normal NEG [facility] Comment on above: Performed By: #### U A ####[facility] [address] [address] Lab Director: Con Oseguera MD Leukocyte esterase Test strip Ql (U) Negative Normal NEG [facility] Comment on above: Performed By: #### U A ####[facility] [address] [place] [address] Lab Director: Con Oseguera MD Nitrite,Ur Negative Normal NEG [facility] Comment on above: Performed By: #### U A ####[facility] [address] [place] [address] lab Director: Con Oseguera MD pH (U) 5.0 [pH] Normal 5.0-8.0 [facility] Comment on above: Performed By: #### U A ####[facility] [address] [facility], [place] [phone] Director: Con Oseguera MD Protein Ql (U) Negative Normal NEG [facility] Comment on above: Performed By: #### U A ####[facility] [address] [facility] [address] lab Director: Con Oseguera MD Specific gravity (U) [Rel density] 1.013 Normal 1.000-1.030 [facility] Comment on above: Performed By: #### U A ####[facility] [address] [facility] [address] lab Director: Con Oseguera MD Turbidity CLEAR Normal CLEAR [facility] Comment on above: Performed By: #### U A ####[facility] [address] [facility] [place] [address] lab Director: Con Oseguera MD Urobilinogen,Ur Normal Normal NORM [facility] Comment on above: Performed By: #### U A ####[facility] [id number] [facility] [place] [address] lab Director: Con Oseguera MD XR CHEST (2 VW)on 12-10-2018 XR CHEST (2 VW) EXAMINATION: TWO XRAY VIEWS OF THE CHEST 12/10/2018 4:06 pm COMPARISON: Chest January 06, 2015. HISTORY: ORDERING SYSTEM PROVIDED HISTORY: cough, pneumonia TECHNOLOGIST PROVIDED HISTORY: cough, pneumonia Ordering Physician Provided Reason for Exam: cough, pneumonia Acuity: Unknown Type of Exam: Unknown FINDINGS: Cardiomegaly with mild vascular congestion. No focal consolidation, pneumothorax, pleural effusion or free air. Osseous structures appear grossly intact. IMPRESSION: Cardiomegaly with mild vascular congestion. Findings suggest CHF. No focal consolidation to suggest pneumonia Interpreted by: Hawk Sawyer Jr., DO Signed by: Hawk Sawyer Jr., DO 12/10/18 Final result Normal [facility] Basic Metabolic Profon 11-03 (cont.) Normal [facility] Comment on above: Result Comment: Aver age GFR for 70 or more years old: 75 mL/min/1.73sq m Chronic Kidney Disease: <60 mL/min/1.73sq m Kidney failure: <15 mL/min/1.73sq m eGFR calculated using average adult body mass. Additional eGFR calculator available at: http://www.[employer]/multiple_crcl_2012.htm Performed By: #### B MP #### [facility] [address] [facility] [place] [address] Clinical Quality Assurance Specialist: Con Oseguera MD Anion gap [Moles/Vol] 15 mmol/L Normal 9-17 [facility] Comment on above: Performed By: #### B MP #### [facility] [address] [facility] [place] [address] Clinical Quality Assurance Specialist: Con Oseguera MD Calcium [Mass/Vol] 8.9 mg/dL Normal 8.6-10.4 [facility] Comment on above: Performed By: #### B MP #### [facility] [address] [facility] [place] [address] Clinical Quality Assurance Specialist: Con Oseguera MD Chloride [Moles/Vol] 100 mmol/L Normal 98-107 [facility] Comment on above: Performed By: #### B MP #### [facility] [address] [facility] [place] [address] Clinical Quality Assurance Specialist: Con Oseguera MD CO2 [Moles/Vol] 21 mmol/L Normal 20-31 [facility] Comment on above: Performed By: #### B MP #### [facility] [address] [place] [address] Clinical Quality Assurance Specialist: Con Oseguera MD Creatinine [Mass/Vol] 1.17 mg/dL Normal 0.70-1.20 [facility] Comment on above: Performed By: #### B MP #### [facility] [address] [place] [address] Clinical Quality Assurance Specialist: Con Oseguera MD GFR, Amer >60 Normal >60 [facility] Comment on above: Performed By: #### B MP #### [facility] [address] [place] [address] Clinical Quality Assurance Specialist: Con Oseguera MD GFR,non Amer 60 mL/min Low >60 [facility] Comment on above: Performed By: #### B MP #### [facility] [address] [place] [address] Clinical Quality Assurance Specialist: Con Oseguera MD Glucose [Mass/Vol] 231 mg/dL High 70-99 [facility] Comment on above: Performed By: #### B MP #### [facility] [address] [place] [address] Clinical Quality Assurance Specialist: Con Oseguera MD Potassium [Moles/Vol] 4.0 mmol/L Normal 3.7-5.3 [facility] Comment on above: Performed By: #### B MP #### [facility] [address] [place] [address] Clinical Quality Assurance Specialist: Con Oseguera MD Sodium [Moles/Vol] 136 mmol/L Normal 135-144 [facility] Comment on above: Performed By: #### B MP #### [facility] [address] [place] [address] Clinical Quality Assurance Specialist: Con Oseguera MD Urea nitrogen [Mass/Vol] 27 mg/dL High 8-23 [facility] Comment on above: Performed By: #### B MP #### [facility] [address] [place] [address] Clinical Quality Assurance Specialist: Con Oseguera MD BUN/CRE Ratio NOT REPORTED Normal 9-20 [facility] Comment on above: Performed By: #### B MP #### [facility] [address] [place] [address] Clinical Quality Assurance Specialist: Con Oseguera MD Staging: NOT REPORTED Normal [facility] Comment on above: Performed By: #### B MP #### [facility] [address] [place] [address] Clinical Quality Assurance Specialist: Con Oseguera MD T3, Freeon 11-03-2018 Free T3 [Mass/Vol] 2.64 pg/mL Normal 2.02-4.43 [facility] Comment on above: Performed By: #### B MP #### [facility] Lab [facility] [place] [address] Clinical Quality Assurance Specialist: Con Oseguera MD Thyroid Stim. Horm.on 2018 TSH Qn 5.66 m[IU]/L High 0.30-5.00 [facility] Comment on above: Performed By: #### B MP #### [facility] [address] [place] [address] Clinical Quality Assurance Specialist: Con Oseguera MD Thyroxine, Freeon 11-03-2018 Thyroxine, Free 0.92 ng/dL Low 0.93-1.70 [facility] Comment on above: Performed By: #### B MP #### [facility] [address] [place] [address] Clinical Quality Assurance Specialist: Con Oseguera MD Basic Metabolic Profon 10-23 (cont.) Normal [facility] Comment on above: Result Comment: Aver age GFR for 70 or more years old: 75 mL/min/1.73sq m Chronic Kidney Disease: <60 mL/min/1.73sq m Kidney failure: <15 mL/min/1.73sq m eGFR calculated using average adult body mass. Additional eGFR calculator available at: http://www.[employer]/multiple_crcl_2011.htm Performed By: #### B MP #### [facility] [address] [place] [address] Clinical Quality Assurance Specialist: Con Oseguera MD Anion gap [Moles/Vol] 14 mmol/L Normal 9-17 [facility] Comment on above: Performed By: #### B MP #### [facility] [address] [place] [address] Clinical Quality Assurance Specialist: Con Oseguera MD Calcium [Mass/Vol] 9.3 mg/dL Normal 8.6-10.4 [facility] Comment on above: Performed By: #### B MP #### [facility] [address] [place] [address] Clinical Quality Assurance Specialist: Con Oseguera MD Chloride [Moles/Vol] 100 mmol/L Normal 98-107 [facility] Comment on above: Performed By: #### B MP #### [facility] [address] [place] [address] Clinical Quality Assurance Specialist: Con Oseguera MD CO2 [Moles/Vol] 22 mmol/L Normal 20-31 [facility] Comment on above: Performed By: #### B MP #### [facility] [place] [address] Clinical Quality Assurance Specialist: Con Oseguera MD Creatinine [Mass/Vol] 2.03 mg/dL High 0.70-1.20 [facility] Comment on above: Performed By: #### B MP #### [facility] [address] [place] [address] Clinical Quality Assurance Specialist: Con Oseguera MD GFR, Amer 38 mL/min Low >60 [facility] Comment on above: Performed By: #### B MP #### [facility] [address] [place] [address] Clinical Quality Assurance Specialist: Con Oseguera MD GFR,non Amer 32 mL/min Low >60 [facility] Comment on above: Performed By: #### B MP #### [facility] [address] [place] [address] Clinical Quality Assurance Specialist: Con Oseguera MD Glucose [Mass/Vol] 286 mg/dL High 70-99 [facility] Comment on above: Performed By: #### B MP #### [facility] [address] [place] [address] Clinical Quality Assurance Specialist: Con Oseguera MD Potassium [Moles/Vol] 5.2 mmol/L Normal 3.7-5.3 [facility] Comment on above: Performed By: #### B MP #### [facility] [address] [place] [address] Clinical Quality Assurance Specialist: Con Oseguera MD Sodium [Moles/Vol] 136 mmol/L Normal 135-144 [facility] Comment on above: Performed By: #### B MP #### [facility] [address] [place] [address] Clinical Quality Assurance Specialist: Con Oseguera MD Urea nitrogen [Mass/Vol] 51 mg/dL High 8-23 [facility] Comment on above: Performed By: #### B MP #### [facility] [address] [place] [address] Clinical Quality Assurance Specialist: Con Oseguera MD BUN/CRE Ratio NOT REPORTED Normal 9-20 [facility] Comment on above: Performed By: #### B MP #### [facility] [address] [facility] [address] Clinical Quality Assurance Specialist: Con Oseguera MD Staging: NOT REPORTED Normal [facility] Comment on above: Performed By: #### B MP #### [facility] [address] [facility] [place] [address] Clinical Quality Assurance Specialist: Con Oseguera MD CBC with Diffon 10-23-2018 Abs. Basophil 0.09 k/uL Normal 0.0-0.2 [facility] Comment on above: Performed By: #### B MP #### [facility] [place] [address] Clinical Quality Assurance Specialist: Con Oseguera MD Abs.Neutrophil (Seg) 6.45 k/uL Normal 1.3-9.1 [facility] Comment on above: Performed By: #### B MP #### [facility] [place] [address] Clinical Quality Assurance Specialist: Con Oseguera MD Basophils/100 WBC (Bld) 1 % Normal 0-2 [facility] Comment on above: Performed By: #### B MP #### [facility] [place] [address] Clinical Quality Assurance Specialist: Con Oseguera MD Eosinophils (Bld) [#/Vol] 0.17 10*3/uL Normal 0.0-0.4 [facility] Comment on above: Performed By: #### B MP #### [facility] [place] [address] Clinical Quality Assurance Specialist: Con Oseguera MD Eosinophils/100 WBC (Bld) 2 % Normal 0-4 [facility] Comment on above: Performed By: #### B MP #### [facility] [address] [facility] [place] [address] Clinical Quality Assurance Specialist: Con Oseguera MD Lymphocytes (Bld) [#/Vol] 1.19 10*3/uL Normal 1.0-4.8 [facility] Comment on above: Performed By: #### B MP #### [facility] [address] [place] [address] Clinical Quality Assurance Specialist: Con Oseguera MD Lymphocytes/100 WBC (Bld) 14 % Low 24-44 [facility] Comment on above: Performed By: #### B MP #### [facility] [address] [place] [address] Clinical Quality Assurance Specialist: Con Oseguera MD Monocytes (Bld) [#/Vol] 0.60 10*3/uL Normal 0.1-1.3 [facility] Comment on above: Performed By: #### B MP #### [facility] [address] [place] [address] Clinical Quality Assurance Specialist: Con Oseguera MD Monocytes/100 WBC (Bld) 7 % Normal 1-7 [facility] Comment on above: Performed By: #### B MP #### [facility] [place] [address] Clinical Quality Assurance Specialist: Con Oseguera MD Morphology Theo (Bld) [Interp] ANISOCYTOSIS PRESENT Normal [facility] Comment on above: Result Comment: HYPO CHROMIA PRESENT MICROCYTOSIS PRESENT 1+ ELLIPTOCYTES 1+ ECHINOCYTES Performed By: #### B MP #### [facility] [address] [place] [address] Clinical Quality Assurance Specialist: Con Oseguera MD Neutrophil (Seg) 76 % High 36-66 [facility] Comment on above: Performed By: #### B MP #### [facility] [address] [place] [address] Clinical Quality Assurance Specialist: Con Oseguera MD Erythrocyte distribution width (RBC) [Ratio] 21.6 % High 11.5-14.9 [facility] Comment on above: Performed By: #### B MP #### [facility] [address] [place] [address] Clinical Quality Assurance Specialist: Con Oseguera MD Hematocrit (Bld) [Volume fraction] 27.3 % Low 41-53 [facility] Comment on above: Performed By: #### B MP #### [facility] [address] [place] [address] Clinical Quality Assurance Specialist: Con Oseguera MD Hemoglobin (Bld) [Mass/Vol] 8.5 g/dL Low 13.5-17.5 [facility] Comment on above: Performed By: #### B MP #### [facility] [place] [address] Clinical Quality Assurance Specialist: Con Oseguera MD MCH (RBC) [Entitic mass] 21.1 pg Low 26-34 [facility] Comment on above: Performed By: #### B MP #### [facility] [facility] [address] Clinical Quality Assurance Specialist: Con Oseguera MD MCHC (RBC) [Mass/Vol] 30.9 g/dL Low 31-37 [facility] Comment on above: Performed By: #### B MP #### [facility] [place] [address] Clinical Quality Assurance Specialist: Con Oseguera MD MCV (RBC) [Entitic vol] 68.3 fL Low 80-100 [facility] Comment on above: Performed By: #### B MP #### [facility] [place] [address] Clinical Quality Assurance Specialist: Con Oseguera MD Platelet mean volume (Bld) [Entitic vol] 9.5 fL Normal 6.0-12.0 [facility] Comment on above: Performed By: #### B MP #### [facility] [place] [address] Clinical Quality Assurance Specialist: Con Oseguera MD Platelets (Bld) [#/Vol] 300 10*3/uL Normal 150-450 [facility] Comment on above: Performed By: #### B MP #### [facility] [address] [place] [address] Clinical Quality Assurance Specialist: Con Oseguera MD RBC (Bld) [#/Vol] 4.00 10*6/uL Low 4.5-5.9 [facility] Comment on above: Performed By: #### B MP #### [facility] [address] [place] [address] Clinical Quality Assurance Specialist: Con Oseguera MD WBC (Bld) [#/Vol] 8.5 10*3/uL Normal 3.5-11.0 [facility] Comment on above: Performed By: #### B MP #### [facility] [place] [address] Clinical Quality Assurance Specialist: Con Oseguera MD Abs.Imm.Granulocyte NOT REPORTED Normal 0.00-0.30 [facility] Comment on above: Performed By: #### B MP #### [facility] [place] [address] Clinical Quality Assurance Specialist: Con Oseguera MD Auto Diff Performed NOT REPORTED Normal [facility] Comment on above: Performed By: #### B MP #### [facility] [place] [address] Clinical Quality Assurance Specialist: Con Oseguera MD Immature granulocytes (Bld) [#/Vol] NOT REPORTED Normal 0 [facility] Comment on above: Performed By: #### B MP #### [facility] [address] [place] [address] Clinical Quality Assurance Specialist: Con Oseguera MD NRBC Automated NOT REPORTED Normal [facility] Comment on above: Performed By: #### B MP #### [facility] [address] [place] [address] Clinical Quality Assurance Specialist: Con Oseguera MD Platelets (Bld) [#/Vol] NOT REPORTED Normal [facility] Comment on above: Performed By: #### B MP #### [facility] [address] [place] [address] Clinical Quality Assurance Specialist: Con Oseguera MD RBC morphology finding Nom (Bld) NOT REPORTED Normal [facility] Comment on above: Performed By: #### B MP #### [facility] [address] [facility] [address] Clinical Quality Assurance Specialist: Con Oseguera MD WBC Morphology NOT REPORTED Normal [facility] Comment on above: Performed By: #### B MP #### [facility] [address] [facility] [address] Clinical Quality Assurance Specialist: Con Oseguera MD Comp Metabolic Profon 2018 (cont.) Normal [facility] Comment on above: Result Comment: Aver age GFR for 70 or more years old: 75 mL/min/1.73sq m Chronic Kidney Disease: <60 mL/min/1.73sq m Kidney failure: <15 mL/min/1.73sq m eGFR calculated using average adult body mass. Additional eGFR calculator available at: http://www.[employer].com/multiple_crcl_2012.htm Performed By: #### C P, MG, CB, CDP #### [facility] [address] [place] [address] Clinical Quality Assurance Specialist: Con Oseguera MD Albumin [Mass/Vol] 3.9 g/dL Normal 3.5-5.2 [facility] Comment on above: Performed By: #### C P, MG, CB, CDP #### [facility] [address] [place] [address] Clinical Quality Assurance Specialist: Con Oseguera MD Alkaline Phos 90 U/L Normal 40-129 [facility] Comment on above: Performed By: #### C P, MG, CB, CDP #### [facility] [address] [place] [address] Clinical Quality Assurance Specialist: Con Oseguera MD ALT [Catalytic activity/Vol] 18 U/L Normal 5-41 [facility] Comment on above: Performed By: #### C P, MG, CB, CDP #### [facility] [address] [place] [address] Clinical Quality Assurance Specialist: Con Oseguera MD Anion gap [Moles/Vol] 14 mmol/L Normal 9-17 [facility] Comment on above: Performed By: #### C P, MG, CB, CDP #### [facility] [address] [facility] [address] Clinical Quality Assurance Specialist: Con Oseguera MD AST [Catalytic activity/Vol] 21 U/L Normal <40 [facility] Comment on above: Performed By: #### C P, MG, CB, CDP #### [facility] [address] [facility] [address] Clinical Quality Assurance Specialist: Con Oseguera MD Bilirubin Ql (U) 0.34 mg/dL Normal 0.3-1.2 [facility] Comment on above: Performed By: #### C P, MG, CB, CDP #### [facility] [address] [place] [address] Clinical Quality Assurance Specialist: Con Oseguera MD Calcium [Mass/Vol] 9.3 mg/dL Normal 8.6-10.4 [facility] Comment on above: Performed By: #### C P, MG, CB, CDP #### [facility] [address] [place] [address] Clinical Quality Assurance Specialist: Con Oseguera MD Chloride [Moles/Vol] 100 mmol/L Normal 98-107 [facility] Comment on above: Performed By: #### C P, MG, CB, CDP #### [facility] [address] [facility] [address] Clinical Quality Assurance Specialist: Con Oseguera MD CO2 [Moles/Vol] 22 mmol/L Normal 20-31 [facility] Comment on above: Performed By: #### C P, MG, CB, CDP #### [facility] [address] [facility] [place] [address] Clinical Quality Assurance Specialist: Con Oseguera MD Creatinine [Mass/Vol] 2.03 mg/dL High 0.70-1.20 [facility] Comment on above: Performed By: #### C P, MG, CB, CDP #### [facility] [address] [facility] [address] Clinical Quality Assurance Specialist: Con Oseguera MD GFR, Amer 38 mL/min Low >60 [facility] Comment on above: Performed By: #### C P, MG, CB, CDP #### [facility] [address] [facility] [place] [address] Clinical Quality Assurance Specialist: Con Oseguera MD GFR,non Amer 32 mL/min Low >60 [facility] Comment on above: Performed By: #### C P, MG, CB, CDP #### [facility] [address] [place] [address] Clinical Quality Assurance Specialist: Con Oseguera MD Glucose [Mass/Vol] 286 mg/dL High 70-99 [facility] Comment on above: Performed By: #### C P, MG, CB, CDP #### [facility] [address] [place] [address] Clinical Quality Assurance Specialist: Con Oseguera MD Potassium [Moles/Vol] 5.2 mmol/L Normal 3.7-5.3 [facility] Comment on above: Performed By: #### C P, MG, CB, CDP #### [facility] [address] [facility] [address] Clinical Quality Assurance Specialist: Con Oseguera MD Protein [Mass/Vol] 6.6 g/dL Normal 6.4-8.3 [facility] Comment on above: Performed By: #### C P, MG, CB, CDP #### [facility] [address] [facility] [address] Clinical Quality Assurance Specialist: Con Oseguera MD Sodium [Moles/Vol] 136 mmol/L Normal 135-144 [facility] Comment on above: Performed By: #### C P, MG, CB, CDP #### [facility] [address] [facility] [place] [address] Clinical Quality Assurance Specialist: Con Oseguera MD Urea nitrogen [Mass/Vol] 51 mg/dL High 8-23 [facility] Comment on above: Performed By: #### C P, MG, CB, CDP #### [facility] [place] [address] Clinical Quality Assurance Specialist: Con Oseguera MD Albumin/Globulin [Mass ratio] NOT REPORTED Normal 1.0-2.5 [facility] Comment on above: Performed By: #### C P, MG, CB, CDP #### [facility] [address] [facility] [address] Clinical Quality Assurance Specialist: Con Oseguera MD BUN/CRE Ratio NOT REPORTED Normal 9-20 [facility] Comment on above: Performed By: #### C P, MG, CB, CDP #### [facility] [address] [place] [address] Clinical Quality Assurance Specialist: Con Oseguera MD Staging: NOT REPORTED Normal [facility] Comment on above: Performed By: #### C P, MG, CB, CDP #### [facility] [address] [place] [address] Clinical Quality Assurance Specialist: Con Oseguera MD Magnesiumon 10-23-2018 Magnesium [Mass/Vol] 2.3 mg/dL Normal 1.6-2.6 [facility] Comment on above: Performed By: #### B MP #### [facility] [address] [place] [address] Clinical Quality Assurance Specialist: Con Oseguera MD Phosphorus, Inorg.on 019 Phosphorus, Inorg. 4.8 mg/dL High 2.5-4.5 [facility] Comment on above: Performed By: #### B MP #### [facility] [address] [place] [address] Clinical Quality Assurance Specialist: Con Oseguera MD Basic Metabolic Profon 10-12 (cont.) Normal [facility] Comment on above: Result Comment: Aver age GFR for 70 or more years old: 75 mL/min/1.73sq m Chronic Kidney Disease: <60 mL/min/1.73sq m Kidney failure: <15 mL/min/1.73sq m eGFR calculated using average adult body mass. Additional eGFR calculator available at: http://www.[employer].com/multiple_crcl_2012.htm Performed By: #### B MP #### [facility] [address] [place] [address] Clinical Quality Assurance Specialist: Con Oseguera MD Anion gap [Moles/Vol] 14 mmol/L Normal 9-17 [facility] Comment on above: Performed By: #### B MP #### [facility] [address] [place] [address] Clinical Quality Assurance Specialist: Con Oseguera MD Calcium [Mass/Vol] 9.6 mg/dL Normal 8.6-10.4 [facility] Comment on above: Performed By: #### B MP #### [facility] [address] [place] [address] Clinical Quality Assurance Specialist: Con Oseguera MD Chloride [Moles/Vol] 103 mmol/L Normal 98-107 [facility] Comment on above: Performed By: #### B MP #### [facility] [address] [place] [address] Clinical Quality Assurance Specialist: Con Oseguera MD CO2 [Moles/Vol] 21 mmol/L Normal 20-31 [facility] Comment on above: Performed By: #### B MP #### [facility] [address] [place] [address] Clinical Quality Assurance Specialist: Con Oseguera MD Creatinine [Mass/Vol] 1.52 mg/dL High 0.70-1.20 [facility] Comment on above: Performed By: #### B MP #### [facility] [address] [place] [address] Clinical Quality Assurance Specialist: Con Oseguera MD GFR, Amer 54 mL/min Low >60 [facility] Comment on above: Performed By: #### B MP #### [facility] [address] [place] [address] Clinical Quality Assurance Specialist: Con Oseguera MD GFR,non Amer 44 mL/min Low >60 [facility] Comment on above: Performed By: #### B MP #### [facility] [address] [place] [address] Clinical Quality Assurance Specialist: Con Oseguera MD Glucose [Mass/Vol] 219 mg/dL High 70-99 [facility] Comment on above: Performed By: #### B MP #### [facility] [address] [place] [address] Clinical Quality Assurance Specialist: Con Oseguera MD Potassium [Moles/Vol] 4.8 mmol/L Normal 3.7-5.3 [facility] Comment on above: Performed By: #### B MP #### [facility] [address] [place] [address] Clinical Quality Assurance Specialist: Con Oseguera MD Sodium [Moles/Vol] 138 mmol/L Normal 135-144 [facility] Comment on above: Performed By: #### B MP #### [facility] [address] [place] [address] Clinical Quality Assurance Specialist: Con Oseguera MD Urea nitrogen [Mass/Vol] 48 mg/dL High 8-23 [facility] Comment on above: Performed By: #### B MP #### [facility] [address] [place] [address] Clinical Quality Assurance Specialist: Con Oseguera MD BUN/CRE Ratio NOT REPORTED Normal 9-20 [facility] Comment on above: Performed By: #### B MP #### [facility] [address] [place] [address] Clinical Quality Assurance Specialist: Con Oseguera MD Staging: NOT REPORTED Normal [facility] Comment on above: Performed By: #### B MP #### [facility] [address] [place] [address] Clinical Quality Assurance Specialist: Con Oseguera MD Basic Metabolic Profon 09-28 (cont.) Normal [facility] Comment on above: Result Comment: Aver age GFR for 70 or more years old: 75 mL/min/1.73sq m Chronic Kidney Disease: <60 mL/min/1.73sq m Kidney failure: <15 mL/min/1.73sq m eGFR calculated using average adult body mass. Additional eGFR calculator available at: http://www.[employer]/multiple_crcl_2012.htm Performed By: #### B MP #### [facility] [address] [place] [address] Clinical Quality Assurance Specialist: Con Oseguera MD Anion gap [Moles/Vol] 13 mmol/L Normal 9-17 [facility] Comment on above: Performed By: #### B MP #### [facility] [address] [place] [address] Clinical Quality Assurance Specialist: Con Oseguera MD Calcium [Mass/Vol] 9.2 mg/dL Normal 8.6-10.4 [facility] Comment on above: Performed By: #### B MP #### [facility] [place] [address] Clinical Quality Assurance Specialist: Con Oseguera MD Chloride [Moles/Vol] 100 mmol/L Normal 98-107 [facility] Comment on above: Performed By: #### B MP #### [facility] [place] [address] Clinical Quality Assurance Specialist: Con Oseguera MD CO2 [Moles/Vol] 24 mmol/L Normal 20-31 [facility] Comment on above: Performed By: #### B MP #### [facility] [address] [place] [address] Clinical Quality Assurance Specialist: Con Oseguera MD Creatinine [Mass/Vol] 1.46 mg/dL High 0.70-1.20 [facility] Comment on above: Performed By: #### B MP #### [facility] [address] [place] [address] Clinical Quality Assurance Specialist: Con Oseguera MD GFR, Amer 56 mL/min Low >60 [facility] Comment on above: Performed By: #### B MP #### [facility] [address] [place] [address] Clinical Quality Assurance Specialist: Con Oseguera MD GFR,non Amer 46 mL/min Low >60 [facility] Comment on above: Performed By: #### B MP #### [facility] [address] [place] [address] Clinical Quality Assurance Specialist: Con Oseguera MD Glucose [Mass/Vol] 269 mg/dL High 70-99 [facility] Comment on above: Performed By: #### B MP #### [facility] [address] [place] [address] Clinical Quality Assurance Specialist: Con Oseguera MD Potassium [Moles/Vol] 4.7 mmol/L Normal 3.7-5.3 [facility] Comment on above: Performed By: #### B MP #### [facility] [address] [place] [address] Clinical Quality Assurance Specialist: Con Oseguera MD Sodium [Moles/Vol] 137 mmol/L Normal 135-144 [facility] Comment on above: Performed By: #### B MP #### [facility] [address] [place] [address] Clinical Quality Assurance Specialist: Con Oseguera MD Urea nitrogen [Mass/Vol] 41 mg/dL High 8-23 [facility] Comment on above: Performed By: #### B MP #### [facility] [address] [place] [address] Clinical Quality Assurance Specialist: Con Oseguera MD BUN/CRE Ratio NOT REPORTED Normal 9-20 [facility] Comment on above: Performed By: #### B MP #### [facility] [address] [place] [address] Clinical Quality Assurance Specialist: Con Oseguera MD Staging: NOT REPORTED Normal [facility] Comment on above: Performed By: #### B MP #### [facility] [address] [place] [address] Clinical Quality Assurance Specialist: Con Oseguera MD Basic Metabolic Profon 09-20 (cont.) Normal [facility] Comment on above: Result Comment: Aver age GFR for 70 or more years old: 75 mL/min/1.73sq m Chronic Kidney Disease: <60 mL/min/1.73sq m Kidney failure: <15 mL/min/1.73sq m eGFR calculated using average adult body mass. Additional eGFR calculator available at: http://www.ManageSocial/multiple_crcl_2011.htm Performed By: #### H H, BMP #### [facility] [address] [facility] [address] Clinical Quality Assurance Specialist: Con Oseguera MD Anion gap [Moles/Vol] 14 mmol/L Normal 9-17 [facility] Comment on above: Performed By: #### H H, BMP #### [facility] [address] [facility] [place] [address] Clinical Quality Assurance Specialist: Con Oseguera MD Calcium [Mass/Vol] 9.1 mg/dL Normal 8.6-10.4 [facility] Comment on above: Performed By: #### H H, BMP #### [facility] [address] [facility] [place] [address] Clinical Quality Assurance Specialist: Con Oseguera MD Chloride [Moles/Vol] 98 mmol/L Normal 98-107 [facility] Comment on above: Performed By: #### H H, BMP #### [facility] [address] [facility] [address] Clinical Quality Assurance Specialist: Con Oseguera MD CO2 [Moles/Vol] 24 mmol/L Normal 20-31 [facility] Comment on above: Performed By: #### H H, BMP #### [facility] [address] [place] [address] Clinical Quality Assurance Specialist: Con Oseguera MD Creatinine [Mass/Vol] 1.48 mg/dL High 0.70-1.20 [facility] Comment on above: Performed By: #### H H, BMP #### [facility] [address] [place] [address] Clinical Quality Assurance Specialist: Con Oseguera MD GFR, Amer 55 mL/min Low >60 [facility] Comment on above: Performed By: #### H H, BMP #### [facility] [address] [place] [address] Clinical Quality Assurance Specialist: Con Oseguera MD GFR,non Amer 46 mL/min Low >60 [facility] Comment on above: Performed By: #### H H, BMP #### [facility] [address] [place] [address] Clinical Quality Assurance Specialist: Con Oseguera MD Glucose [Mass/Vol] 168 mg/dL High 70-99 [facility] Comment on above: Performed By: #### H H, BMP #### [facility] [address] [place] [address] Clinical Quality Assurance Specialist: Con Oseguera MD Potassium [Moles/Vol] 4.6 mmol/L Normal 3.7-5.3 [facility] Comment on above: Performed By: #### H H, BMP #### [facility] [address] [place] [address] Clinical Quality Assurance Specialist: Con Oseguera MD Sodium [Moles/Vol] 136 mmol/L Normal 135-144 [facility] Comment on above: Performed By: #### H H, BMP #### [facility] [address] [place] [address] Clinical Quality Assurance Specialist: Con Oseguera MD Urea nitrogen [Mass/Vol] 34 mg/dL High 8-23 [facility] Comment on above: Performed By: #### H H, BMP #### [facility] [address] [place] [address] Clinical Quality Assurance Specialist: Con Oseguera MD BUN/CRE Ratio NOT REPORTED Normal 9-20 [facility] Comment on above: Performed By: #### H H, BMP #### [facility] [address] [facility] [place] [address] Clinical Quality Assurance Specialist: Con Oseguera MD Staging: NOT REPORTED Normal [facility] Comment on above: Performed By: #### H H, BMP #### [facility] [address] [facility] [place] [address] Clinical Quality Assurance Specialist: Con Oseguera MD Hgb/Hcton 09-20-2018 Hematocrit (Bld) [Volume fraction] 26.8 % Low 41-53 [facility] Comment on above: Performed By: #### H H, BMP #### [facility] [address] [facility] [place] [address] Clinical Quality Assurance Specialist: Con Oseguera MD Hemoglobin (Bld) [Mass/Vol] 8.3 g/dL Low 13.5-17.5 [facility] Comment on above: Performed By: #### H H, BMP #### [facility] [address] [facility] [place] [address] Clinical Quality Assurance Specialist: Con Oseguera MD Basic Metabolic Profon 09-07 (cont.) Normal [facility] Comment on above: Result Comment: Aver age GFR for 70 or more years old: 75 mL/min/1.73sq m Chronic Kidney Disease: <60 mL/min/1.73sq m Kidney failure: <15 mL/min/1.73sq m eGFR calculated using average adult body mass. Additional eGFR calculator available at: http://www.[employer].com/multiple_crcl_2012.htm Performed By: #### B MP #### [facility] [address] [place] [address] Clinical Quality Assurance Specialist: Con Oseguera MD Anion gap [Moles/Vol] 10 mmol/L Normal 9-17 [facility] Comment on above: Performed By: #### B MP #### [facility] [address] [place] [address] Clinical Quality Assurance Specialist: Con Oseguera MD Calcium [Mass/Vol] 9.1 mg/dL Normal 8.6-10.4 [facility] Comment on above: Performed By: #### B MP #### [facility] [address] [place] [address] Clinical Quality Assurance Specialist: Con Oseguera MD Chloride [Moles/Vol] 103 mmol/L Normal 98-107 [facility] Comment on above: Performed By: #### B MP #### [facility] [address] [place] [address] Clinical Quality Assurance Specialist: Con Oseguera MD CO2 [Moles/Vol] 25 mmol/L Normal 20-31 [facility] Comment on above: Performed By: #### B MP #### [facility] [place] [address] Clinical Quality Assurance Specialist: oCn Oseguera MD Creatinine [Mass/Vol] 1.25 mg/dL High 0.70-1.20 [facility] Comment on above: Performed By: #### B MP #### [facility] [address] [place] [address] Clinical Quality Assurance Specialist: Con Oseguera MD GFR, Amer >60 Normal >60 [facility] Comment on above: Performed By: #### B MP #### [facility] [address] [place] [address] Clinical Quality Assurance Specialist: Con Oseguera MD GFR,non Amer 55 mL/min Low >60 [facility] Comment on above: Performed By: #### B MP #### [facility] [address] [place] [address] Clinical Quality Assurance Specialist: Con Oseguera MD Glucose [Mass/Vol] 123 mg/dL High 70-99 [facility] Comment on above: Performed By: #### B MP #### [facility] [address] [place] [address] Clinical Quality Assurance Specialist: Con Oseguera MD Potassium [Moles/Vol] 4.7 mmol/L Normal 3.7-5.3 [facility] Comment on above: Performed By: #### B MP #### [facility] [address] [place] [address] Clinical Quality Assurance Specialist: Con Oseguera MD Sodium [Moles/Vol] 138 mmol/L Normal 135-144 [facility] Comment on above: Performed By: #### B MP #### [facility] [address] [place] [address] Clinical Quality Assurance Specialist: Con Oseguera MD Urea nitrogen [Mass/Vol] 28 mg/dL High 8-23 [facility] Comment on above: Performed By: #### B MP #### [facility] [address] [place] [address] Clinical Quality Assurance Specialist: Con Oseguera MD BUN/CRE Ratio NOT REPORTED Normal 9-20 [facility] Comment on above: Performed By: #### B MP #### [facility] [address] [place] [address] Clinical Quality Assurance Specialist: Con Oseguera MD Staging: NOT REPORTED Normal [facility] Comment on above: Performed By: #### B MP #### [facility] [address] [place] [address] Clinical Quality Assurance Specialist: Con Oseguera MD Basic Metabolic Profon 08-31 (cont.) Normal [facility] Comment on above: Result Comment: Aver age GFR for 70 or more years old: 75 mL/min/1.73sq m Chronic Kidney Disease: <60 mL/min/1.73sq m Kidney failure: <15 mL/min/1.73sq m eGFR calculated using average adult body mass. Additional eGFR calculator available at: http://www.ManageSocial/multiple_crcl_2012.htm Performed By: #### B MP #### [facility] [place] [address] Clinical Quality Assurance Specialist: Con Oseguera MD Anion gap [Moles/Vol] 11 mmol/L Normal 9-17 [facility] Comment on above: Performed By: #### B MP #### [facility] [address] [place] [address] Clinical Quality Assurance Specialist: Con Oseguera MD Calcium [Mass/Vol] 9.4 mg/dL Normal 8.6-10.4 [facility] Comment on above: Performed By: #### B MP #### [facility] [address] [place] [address] Clinical Quality Assurance Specialist: Con Oseguera MD Chloride [Moles/Vol] 100 mmol/L Normal 98-107 [facility] Comment on above: Performed By: #### B MP #### [facility] [address] [place] [address] Clinical Quality Assurance Specialist: Con Oseguera MD CO2 [Moles/Vol] 24 mmol/L Normal 20-31 [facility] Comment on above: Performed By: #### B MP #### [facility] [address] [place] [address] Clinical Quality Assurance Specialist: Con Oseguera MD Creatinine [Mass/Vol] 1.35 mg/dL High 0.70-1.20 [facility] Comment on above: Performed By: #### B MP #### [facility] [address] [place] [address] Clinical Quality Assurance Specialist: Con Oseguera MD GFR, Amer >60 Normal >60 [facility] Comment on above: Performed By: #### B MP #### [facility] [address] [place] [address] Clinical Quality Assurance Specialist: Con Oseguera MD GFR,non Amer 51 mL/min Low >60 [facility] Comment on above: Performed By: #### B MP #### [facility] [address] [place] [address] Clinical Quality Assurance Specialist: Con Oseguera MD Glucose [Mass/Vol] 133 mg/dL High 70-99 [facility] Comment on above: Performed By: #### B MP #### [facility] [address] [place] [address] Clinical Quality Assurance Specialist: Con Oseguera MD Potassium [Moles/Vol] 4.8 mmol/L Normal 3.7-5.3 [facility] Comment on above: Performed By: #### B MP #### [facility] [address] [place] [address] Clinical Quality Assurance Specialist: Con Oseguera MD Sodium [Moles/Vol] 135 mmol/L Normal 135-144 [facility] Comment on above: Performed By: #### B MP #### [facility] [address] [place] [address] Clinical Quality Assurance Specialist: Con Oseguera MD Urea nitrogen [Mass/Vol] 35 mg/dL High 8-23 [facility] Comment on above: Performed By: #### B MP #### [facility] [address] [place] [address] Clinical Quality Assurance Specialist: Con Oseguera MD BUN/CRE Ratio NOT REPORTED Normal 03-16 [facility] Comment on above: Performed By: #### B MP #### [facility] [address] [place] [address] Clinical Quality Assurance Specialist: Con Oseguera MD Staging: NOT REPORTED Normal [facility] Comment on above: Performed By: #### B MP #### [facility] [address] [place] [address] Clinical Quality Assurance Specialist: Con Oseguera MD XR ABDOMEN (KUB) (SINGLE AP VIEW)on 08-21-2018 XR ABDOMEN (KUB) (SINGLE AP VIEW) EXAMINATION: SINGLE SUPINE XRAY VIEW(S) OF THE ABDOMEN 08/21/2018 9:52 am COMPARISON: None. HISTORY: ORDERING SYSTEM PROVIDED HISTORY: Acute blood loss anemia TECHNOLOGIST PROVIDED HISTORY: Return in 5 days, sits leeanne study check for retained capsule Ordering Physician Provided Reason for Exam: 5 day sitz marker study Acuity: Acute Type of Exam: Subsequent/Follow-up FINDINGS: Reason for study states Sitz marker study. No radiopaque bowel markers are identified. There is moderate stool in the ascending colon. Moderate stool in the transverse colon. And moderate stool in the descending colon. Small amount of stool in the rectosigmoid colon. No pathologic bowel dilatation. Cholecystectomy clips. Vascular calcifications of the splenic artery are present. Lumbar spondylosis. IMPRESSION: 1. No radiopaque markers are apparent on current study. 2. Stool volumes as above. Interpreted by: Crow Wright MD Signed by: Crow Wright MD 08/21/18 Final result Normal [facility] Basic Metabolic Profon 08-16 (cont.) Normal [facility] Comment on above: Result Comment: Aver age GFR for 70 or more years old: 75 mL/min/1.73sq m Chronic Kidney Disease: <60 mL/min/1.73sq m Kidney failure: <15 mL/min/1.73sq m eGFR calculated using average adult body mass. Additional eGFR calculator available at: http://www.globalrph.[employer]/multiple_crcl_2012.htm Performed By: #### B MP #### [facility] [address] [place] [address] Clinical Quality Assurance Specialist: Con Oseguera MD Anion gap [Moles/Vol] 11 mmol/L Normal 9-17 [facility] Comment on above: Performed By: #### B MP #### [facility] [address] [place] [address] Clinical Quality Assurance Specialist: Con Oseguera MD Calcium [Mass/Vol] 9.0 mg/dL Normal 8.6-10.4 [facility] Comment on above: Performed By: #### B MP #### [facility] [place] [address] Clinical Quality Assurance Specialist: Con Oseguera MD Chloride [Moles/Vol] 99 mmol/L Normal 98-107 [facility] Comment on above: Performed By: #### B MP #### [facility] [place] [address] Clinical Quality Assurance Specialist: Con Oseguera MD CO2 [Moles/Vol] 26 mmol/L Normal 20-31 [facility] Comment on above: Performed By: #### B MP #### [facility] [place] [address] Clinical Quality Assurance Specialist: Con Oseguera MD Creatinine [Mass/Vol] 1.46 mg/dL High 0.70-1.20 [facility] Comment on above: Performed By: #### B MP #### [facility] [place] [address] Clinical Quality Assurance Specialist: Con Oseguera MD GFR, Amer 56 mL/min Low >60 [facility] Comment on above: Performed By: #### B MP #### [facility] [address] [place] [address] Clinical Quality Assurance Specialist: Con Oseguera MD GFR,non Amer 46 mL/min Low >60 [facility] Comment on above: Performed By: #### B MP #### [facility] [address] [place] [address] Clinical Quality Assurance Specialist: Con Oseguera MD Glucose [Mass/Vol] 160 mg/dL High 70-99 [facility] Comment on above: Performed By: #### B MP #### [facility] [address] [place] [address] Clinical Quality Assurance Specialist: Con Oseguera MD Potassium [Moles/Vol] 4.4 mmol/L Normal 3.7-5.3 [facility] Comment on above: Performed By: #### B MP #### [facility] [address] [place] [address] Clinical Quality Assurance Specialist: Con Oseguera MD Sodium [Moles/Vol] 136 mmol/L Normal 135-144 [facility] Comment on above: Performed By: #### B MP #### [facility] [address] [place] [address] Clinical Quality Assurance Specialist: Con Oseguera MD Urea nitrogen [Mass/Vol] 42 mg/dL High 8-23 [facility] Comment on above: Performed By: #### B MP #### [facility] [address] [place] [address] Clinical Quality Assurance Specialist: Con Oseguera MD BUN/CRE Ratio NOT REPORTED Normal 9-20 [facility] Comment on above: Performed By: #### B MP #### [facility] [address] [place] [address] Clinical Quality Assurance Specialist: Con Oseguera MD Staging: NOT REPORTED Normal [facility] Comment on above: Performed By: #### B MP #### [facility] [address] [place] [address] Clinical Quality Assurance Specialist: Con Oseguera MD CBCon 07-11-2018 Erythrocyte distribution width (RBC) [Ratio] 18.8 % High 11.5-14.9 [facility] Comment on above: Performed By: #### C BC #### [facility] [address] [place] [address] Clinical Quality Assurance Specialist: Con Oseguera MD Hematocrit (Bld) [Volume fraction] 23.1 % Low 41-53 [facility] Comment on above: Performed By: #### C BC #### [facility] [place] [address] Clinical Quality Assurance Specialist: Con Oseguera MD Hemoglobin (Bld) [Mass/Vol] 7.0 g/dL Critically low 13.5-17.5 [facility] Comment on above: Performed By: #### C BC #### [facility] [address] [place] [address] Clinical Quality Assurance Specialist: Con Oseguera MD MCH (RBC) [Entitic mass] 21.3 pg Low 26-34 [facility] Comment on above: Performed By: #### C BC #### [facility] [facility] [address] Clinical Quality Assurance Specialist: Con Oseguera MD MCHC (RBC) [Mass/Vol] 30.1 g/dL Low 31-37 [facility] Comment on above: Performed By: #### C BC #### [facility] [address] [place] [address] Clinical Quality Assurance Specialist: Con Oseguera MD MCV (RBC) [Entitic vol] 70.8 fL Low 80-100 [facility] Comment on above: Performed By: #### C BC #### [facility] [place] [address] Clinical Quality Assurance Specialist: Con Oseguera MD Platelet mean volume (Bld) [Entitic vol] 8.8 fL Normal 6.0-12.0 [facility] Comment on above: Performed By: #### C BC #### [facility] [address] [place] [address] Clinical Quality Assurance Specialist: Con Oseguera MD Platelets (Bld) [#/Vol] 484 10*3/uL High 150-450 [facility] Comment on above: Performed By: #### C BC #### [facility] [address] [place] [address] Clinical Quality Assurance Specialist: Con Oseguera MD RBC (Bld) [#/Vol] 3.26 10*6/uL Low 4.5-5.9 [facility] Comment on above: Performed By: #### C BC #### [facility] [address] [place] [address] Clinical Quality Assurance Specialist: Con Oseguera MD WBC (Bld) [#/Vol] 10.6 10*3/uL Normal 3.5-11.0 [facility] Comment on above: Performed By: #### C BC #### [facility] [address] [place] [address] Clinical Quality Assurance Specialist: Con Oseguera MD NRBC Automated NOT REPORTED Normal [facility] Comment on above: Performed By: #### C BC #### [facility] [address] [place] [address] Clinical Quality Assurance Specialist: Con Oseguera MD Vital Signs Date Time Vital Sign Value Performing Clinician Megan chauhan 03-27-2019 17:01-0400 BMI (Body Mass Index) 27.46 kg/m2 Josh Hess [facility] [place], [place] 03-27-2019 17:01-0400 Body Temperature 97.7 [degF] Josh [facility], [place] 03-27-2019 17:01-0400 Body weight 72.58 kg Joshaye Hess [facility] , [place] 03-27-2019 17:01-0400 BP Diastolic 58 mm[Hg] [facility] , [place] 03-27-2019 17:01-0400 BP Systolic 142 mm[Hg] Josh [facility] , [place] 03-27-2019 17:01-0400 Height 162.6 cm [facility] , [place] 03-27-2019 17:01-0400 Pulse (Heart Rate) 51 /min [facility], [place] 03-27-2019 17:01-0400 Pulse Oximetry 100 % Josh [facility] , [place] 03-27-2019 17:01-0400 Respiratory Rate 14 /min [facility], [place] 03-16-2019 01:33-0400 BMI (Body Mass Index) 23.68 kg/m2 Javier [facility], [place] 03-16-2019 01:33-0400 Body Temperature 98.01 [degF] Javier [facility], [place] 03-16-2019 01:33-0400 Body weight 74.84 kg Javier [facility] , [place] 03-16-2019 01:33-0400 BP Diastolic 70 mm[Hg] J[facility] , [place] 03-16-2019 01:33-0400 BP Systolic 145 mm[Hg] [facility] , [place] 03-16-2019 01:33-0400 Height 177.8 cm [facility] [place] 03-16-2019 01:33-0400 Pulse (Heart Rate) 100 /min [facility] 03-16-2019 01:33-0400 Pulse Oximetry 97 % [facility] [place] 03-16-2019 01:33-0400 Respiratory Rate 16 /min Javier [facility], [place] 03-13-2019 15:00-0400 Pulse Oximetry 95 % Wolfgang [facility] [place], [place] 03-13-2019 15:00-0400 Respiratory Rate 16 /min [facility] [place] 03-13-2019 12:07-0400 Body Temperature 97.3 [degF] [facility] [place] 03-13-2019 12:07-0400 BP Diastolic 54 mm[place]Hg] [place] 03-13-2019 12:07-0400 BP Systolic 119 mm[facility]Hg[facility] [place] 03-[facility]-2019 12:07-0400 Pulse (Heart Rate) 73 /min [facility] [place] [place] 03-12-2019 06:00-0400 BMI (Body Mass Index) 22.24 kg/m2 [facility] [place] 03-12-2019 06:00-0400 Body weight 70.3 kg [place] 03-08-2019 07:02-0400 Height 177.8 cm [place], [place] Encounters Encounter Date Encounter Type Care Provider Facility Start: 03-27-2019 End: 03-27-2019 Emergency department patient visit [facility] Start: 03-27-2019 End: 03-27-2019 Emergency department patient visit Josh Hess Work Phone: [facility] ED Comment on above: Acute kidney injury (HCC) (Primary Dx) Start: 03-16-2019 End: 03-16-2019 Emergency department patient visit JAVIER DEVRIES [facility] Start: 03-16-2019 End: 03-16-2019 Emergency department patient visit Javier Devries Work Phone: [facility] ED Comment on above: Acute urinary retent ion (Primary Dx) Start: 03-07-2019 End: 03-13-2019 Evaluation and management of inpatient [facility] Start: 03-07-2019 End: 03-13-2019 Evaluation and management of [facility]: [facility] Med Surg Comment on above: VANESA (acute kidney in jury) (HCC) (Primary Dx); Pneumonia due to organism; Acute cystitis without hematuria Start: 12-10-2018 End: 12-13-2018 [facility] Start: 11-03-2018 End: 11-04-2018 Patient encounter procedure REBECA ORELLANA [facility] Start: 10-23-2018 End: 10-24-2018 Patient encounter procedure LEOBARDO BRADLEYAИринаHILDA [facility] Start: 10-12-2018 End: 10-13-2018 Patient encounter procedure ELIZABETH Alonso [facility] Start: 09-28-2018 End: 09-29-2018 Patient encounter procedure ELIZABETH Alonso [facility] Start: 09-20-2018 End: 09-21-2018 Patient encounter procedure ELIZABETH Alonso [facility] Start: 09-07-2018 End: 09-08-2018 Patient encounter procedure ELIZABETH Alonso [facility] Start: 08-31-2018 End: 09-01-2018 Patient encounter procedure TALIA MULLIGAN [facility] Start: 08-21-2018 End: 08-24-2018 Patient encounter procedure SHARIFA MEJÍALUR [facility] Start: 08-16-2018 End: 08-17-2018 [facility] Start: 07-11-2018 End: 07-12-2018 Patient encounter procedure SHARIFA Lianres PANGULUR [facility] Procedures Date Procedure Procedure Detail Performing Clinician Start: 03-27-2019 IP CONSULT TO FAMILY MEDICINE SHARIFA PANGULUR Start: 03-27-2019 Basic metabolic panel calcium total SHARIFA PANGULUR Start: 03-27-2019 Blood count complete auto&auto difrntl wbc SHARIFA PANGULUR Start: 03-27-2019 Basic metabolic panel calcium total Josh Hess Work Phone: Start: 03-27-2019 Blood count complete auto&auto difrntl wbc Josh Hess Work Phone: Start: 03-16-2019 Urinalysis microscopic only SHARIFA SPIVEY GULUR Start: 03-16-2019 Urnls dip stick/tablet rgnt auto w/o microscopy SHARIFA PANGULUR Start: 03-16-2019 CATHETER REMOVAL SHARIFA PANGULUR Start: 03-16-2019 INSERT PEDROZA CATHETER SHARIFA PANGULUR Start: 03-16-2019 Urinalysis microscopic only Javier jacobo Work Phone: Start: 03-16-2019 Urnls dip stick/tablet rgnt auto w/o microscopy Javier Devries Work Phone: Start: 03-13-2019 NEBULIZER TX INTERMITTENT SHARIFA PANGU LUR Start: 03-13-2019 Gluc bld gluc mntr dev cleared fda spec home use SHARIFA PANGULUR Start: 03-13-2019 NEBULIZER TX INTERMITTENT SHARIFA PANGU LUR Start: 03-13-2019 Glucose blood reagent strip SHARIFA SPIVEY GULUR Start: 03-13-2019 Glucose blood reagent strip Talia hansen Work Phone: Start: 03-13-2019 Gluc bld gluc mntr dev cleared fda spec home use SHARIFA PANGULUR Start: 03-13-2019 INITIATE OXYGEN THERAPY PROTOCOL SHARIFA PANGULUR Start: 03-13-2019 NEBULIZER TX INTERMITTENT SHARIFA PANGU LUR Start: 03-13-2019 Glucose blood reagent strip SHARIFA SPIVEY GULUR Start: 03-13-2019 Comprehensive metabolic panel SHARIFA PANGULUR Start: 03-13-2019 Glucose blood reagent strip Talia hansen Work Phone: Start: 03-13-2019 BASIC METABOLIC PANEL W/ REFLEX TO MG FOR LOW K Talia Pastor Work Phone: Start: 03-13-2019 Gluc bld gluc mntr dev cleared fda spec home use SHARIFA PANGULUR Start: 03-13-2019 INTAKE AND OUTPUT SHARIFA PANGULUR Start: 03-12-2019 Gluc bld gluc mntr dev cleared fda spec home use SHARIFA PANGULUR Start: 03-12-2019 NEBULIZER TX INTERMITTENT SHARIFA PANGU LUR Start: 03-12-2019 Glucose blood reagent strip SHARIFA SPIVEY GULUR Start: 03-12-2019 Glucose blood reagent strip Talia Stipe R obinson Work Phone: Start: 03-12-2019 NEBULIZER TX INTERMITTENT SHARIFA PANGU LUR Start: 03-12-2019 Glucose blood reagent strip SHARIFA SPIVEY GULUR Start: 03-12-2019 Glucose blood reagent strip Talia Koreye R obinson Work Phone: Start: 03-12-2019 Gluc bld gluc mntr dev cleared fda spec home use SHARIFA PANGULUR Start: 03-12-2019 NEBULIZER TX INTERMITTENT SHARIFA PANGU LUR Start: 03-12-2019 Glucose blood reagent strip SHARIFA SPIVEY GULUR Start: 03-12-2019 Glucose blood reagent strip Talia Stipe R obinson Work Phone: Start: 03-12-2019 DISCHARGE PATIENT SHARIFA PANGULUR Start: 03-12-2019 Gluc bld gluc mntr dev cleared fda spec home use SHARIFA PANGULUR Start: 03-12-2019 INITIATE OXYGEN THERAPY PROTOCOL SHARIFA PANGULUR Start: 03-12-2019 NEBULIZER TX INTERMITTENT SHARIFA PANGU LUR Start: 03-12-2019 Glucose blood reagent strip SHARIFA SPIVEY GULUR Start: 03-12-2019 Comprehensive metabolic panel SHARIFA PANGULUR Start: 03-12-2019 Glucose blood reagent strip Talia Stipe R obinson Work Phone: Start: 03-12-2019 Gluc bld gluc mntr dev cleared fda spec home use SHARIFA PANGULUR Start: 03-12-2019 BASIC METABOLIC PANEL W/ REFLEX TO MG FOR LOW K Talia Pastor Work Phone: Start: 03-12-2019 INTAKE AND OUTPUT SHARIFA PANGULUR Start: 03-11-2019 Gluc bld gluc mntr dev cleared fda spec home use SHARIFA PANGULUR Start: 03-11-2019 NEBULIZER TX INTERMITTENT SHARIFA PANGU LUR Start: 03-11-2019 Glucose blood reagent strip SHARIFA SPIVEY GULUR Start: 03-11-2019 Glucose blood reagent strip Talia Stipe R obinson Work Phone: Start: 03-11-2019 NEBULIZER TX INTERMITTENT SHARIFA PANGU LUR Start: 03-11-2019 Glucose blood reagent strip SHARIFA SPIVEY GULUR Start: 03-11-2019 Glucose blood reagent strip Talia Stipe R obinson Work Phone: Start: 03-11-2019 Gluc bld gluc mntr dev cleared fda spec home use SHARIFA PANGULUR Start: 03-11-2019 NEBULIZER TX INTERMITTENT SHARIFA PANGU LUR Start: 03-11-2019 Radiologic exam chest 2 views SHARIFA PANGULUR Start: 03-11-2019 Glucose blood reagent strip SHARIFA SPIVEY GULUR Start: 03-11-2019 Radiologic exam chest 2 views Abby Huerta Work Phone: Start: 03-11-2019 Glucose blood reagent strip Talia Stipe R obinson Work Phone: Start: 03-11-2019 Gluc bld gluc mntr dev cleared fda spec home use SHARIFA PANGULUR Start: 03-11-2019 INITIATE OXYGEN THERAPY PROTOCOL SHARIFA PANGULUR Start: 03-11-2019 NEBULIZER TX INTERMITTENT SHARIFA PANGU LUR Start: 03-11-2019 Comprehensive metabolic panel SHARIFA PANGULUR Start: 03-11-2019 Glucose blood reagent strip SHARIFA SPIVEY GULUR Start: 03-11-2019 BASIC METABOLIC PANEL W/ REFLEX TO MG FOR LOW K Talia Pastor Work Phone: Start: 03-11-2019 Gluc bld gluc mntr dev cleared fda spec home use SHARIFA PANGULUR Start: 03-11-2019 Glucose blood reagent strip Talia Stipe R obinson Work Phone: Start: 03-11-2019 INTAKE AND OUTPUT SHARIFA PANGULUR Start: 03-10-2019 Gluc bld gluc mntr dev cleared fda spec home use SHARIFA PANGULUR Start: 03-10-2019 NEBULIZER TX INTERMITTENT SHARIFA PANGU LUR Start: 03-10-2019 Glucose blood reagent strip SHARIFA SPIVEY GULUR Start: 03-10-2019 Glucose blood reagent strip Talia Stipe R obinson Work Phone: Start: 03-10-2019 Glucose blood reagent strip SHARIFA SPIVEY GULUR Start: 03-10-2019 NEBULIZER TX INTERMITTENT SHARIFA PANGU LUR Start: 03-10-2019 Glucose blood reagent strip Talia Jacobo obinson Work Phone: Start: 03-10-2019 Gluc bld gluc mntr dev cleared fda spec home use SHARIFA PANGULUR Start: 03-10-2019 NEBULIZER TX INTERMITTENT SHARIFA PANGU LUR Start: 03-10-2019 Glucose blood reagent strip SHARIFA SPIVEY GULUR Start: 03-10-2019 Glucose blood reagent strip Talia Jacobo obinson Work Phone: Start: 03-10-2019 Gluc bld gluc mntr dev cleared fda spec home use SHARIFA PANGULUR Start: 03-10-2019 INITIATE OXYGEN THERAPY PROTOCOL SHARIFA PANGULUR Start: 03-10-2019 NEBULIZER TX INTERMITTENT SHARIFA PANGU LUR Start: 03-10-2019 Assay of magnesium SHARIFA PANGULUR Start: 03-10-2019 Comprehensive metabolic panel SHARIFA PANGULUR Start: 03-10-2019 Drug screen quantitative digoxin total SHARIFA PANGULUR Start: 03-10-2019 Glucose blood reagent strip SHARIFA SPIVEY GULUR Start: 03-10-2019 Assay of magnesium Talia Rk Pastor Work Phone: Start: 03-10-2019 BASIC METABOLIC PANEL W/ REFLEX TO MG FOR LOW K Talia Koreye Pastor Work Phone: Start: 03-10-2019 Drug screen quantitative digoxin total Talia Stipe Pastor Work Phone: Start: 03-10-2019 Gluc bld gluc mntr dev cleared fda spec home use SHARIFA PANGULUR Start: 03-10-2019 Glucose blood reagent strip Talia Rk Jacobo obinson Work Phone: Start: 03-10-2019 INTAKE AND OUTPUT SHARIFA PANGULUR Start: 03-09-2019 Glucose blood reagent strip SHARIFA SPIVEY GULUR Start: 03-09-2019 Gluc bld gluc mntr dev cleared fda spec home use SHARIFA PANGULUR Start: 03-09-2019 NEBULIZER TX INTERMITTENT SHARIFA PANGU LUR Start: 03-09-2019 Glucose blood reagent strip Talia hansen Work Phone: Start: 03-09-2019 Glucose blood reagent strip SHARIFA SPIVEY GULUR Start: 03-09-2019 NEBULIZER TX INTERMITTENT SHARIFA PANGU LUR Start: 03-09-2019 Glucose blood reagent strip Taliasiddharth Jacobo oblucia Work Phone: Start: 03-09-2019 Gluc bld gluc mntr dev cleared fda spec home use SHARIFA PANGULUR Start: 03-09-2019 NEBULIZER TX INTERMITTENT SHARIFA PANGU LUR Start: 03-09-2019 Glucose blood reagent strip SHARIFA SPIVEY GULUR Start: 03-09-2019 Glucose blood reagent strip Talia Rk Jacobo oblucia Work Phone: Start: 03-09-2019 ELEVATE HEELS OFF OF BED SHARIFA MEJÍAL UR Start: 03-09-2019 HEAD OF BED 60 DEGREES OR LESS SHARIFA PANGULUR Start: 03-09-2019 NURSING COMMUNICATION SHARIFA PANGULUR Start: 03-09-2019 TURN PATIENT SHARIFA PANGULUR Start: 03-09-2019 Gluc bld gluc mntr dev cleared fda spec home use SHARIFA PANGULUR Start: 03-09-2019 INITIATE OXYGEN THERAPY PROTOCOL SHARIFA PANGULUR Start: 03-09-2019 NEBULIZER TX INTERMITTENT SHARIFA PANGU LUR Start: 03-09-2019 Comprehensive metabolic panel SHARIFA PANGULUR Start: 03-09-2019 Glucose blood reagent strip SHARIFA SPIVEY GULUR Start: 03-09-2019 BASIC METABOLIC PANEL W/ REFLEX TO MG FOR LOW K Talia Pastor Work Phone: Start: 03-09-2019 Glucose blood reagent strip Talia hansen Work Phone: Start: 03-09-2019 Gluc bld gluc mntr dev cleared fda spec home use SHARIFA PANGULUR Start: 03-09-2019 INTAKE AND OUTPUT SHARIFA PANGULUR Start: 03-08-2019 Glucose blood reagent strip SHARIFA SPIVEY GULUR Start: 03-08-2019 Gluc bld gluc mntr dev cleared fda spec home use SHARIFA PANGULUR Start: 03-08-2019 NEBULIZER TX INTERMITTENT SHARIFA PANGU LUR Start: 03-08-2019 Glucose blood reagent strip Talia Koreye R [employer] Work Phone: Start: 03-08-2019 TELEMETRY MONITORING SHARIFA PANGULUR Start: 03-08-2019 Glucose blood reagent strip SHARIFA SPIVEY GULUR Start: 03-08-2019 NEBULIZER TX INTERMITTENT SHARIAF PANGU LUR Start: 03-08-2019 Glucose blood reagent strip Talia Stipe R [employer] Work Phone: Start: 03-08-2019 Gluc bld gluc mntr dev cleared fda spec home use SHARIFA PANGULUR Start: 03-08-2019 NEBULIZER TX INTERMITTENT SHARIFA PANGU LUR Start: 03-08-2019 Glucose blood reagent strip SHARIFA SPIVEY GULUR Start: 03-08-2019 Glucose blood reagent strip Talia Koreye R [employer] Work Phone: Start: 03-08-2019 Gluc bld gluc mntr dev cleared fda spec home use SHARIFA PANGULUR Start: 03-08-2019 INITIATE OXYGEN THERAPY PROTOCOL SHARIFA PANGULUR Start: 03-08-2019 NEBULIZER TX INTERMITTENT SHARIFA PANGU LUR Start: 03-08-2019 Glucose blood reagent strip SHARIFA SPIVEY GULUR Start: 03-08-2019 Comprehensive metabolic panel SHARIFA PANGULUR Start: 03-08-2019 End: 03-08-2019 Glucose blood reagent strip Talia Koreye R [employer] Work Phone: Start: 03-08-2019 BASIC METABOLIC PANEL W/ REFLEX TO MG FOR LOW K Talia Pastor Work Phone: Start: 03-08-2019 Gluc bld gluc mntr dev cleared fda spec home use SHARIFA PANGULUR Start: 03-08-2019 DAILY WEIGHTS SHARIFA PANGULUR Start: 03-08-2019 INTAKE AND OUTPUT SHARIFA PANGULUR Start: 03-08-2019 Glucose blood reagent strip SHARIFA SPIVEY GULUR Start: 03-07-2019 DIET CARB CONTROL SHARIFA MEJÍALUR Start: 03-07-2019 DNR COMFORT CARE SHARIFA MEJÍALUR Start: 03-07-2019 INITIATE OXYGEN THERAPY PROTOCOL SHARIFA MEJÍALUR Start: 03-07-2019 INTAKE AND OUTPUT SHARIFA MEJÍALUR Start: 03-07-2019 IP CONSULT TO CARDIOLOGY SHARIFA MEJÍAL UR Start: 03-07-2019 IP CONSULT TO PULMONOLOGY SHARIFA MEJÍA LUR Start: 03-07-2019 NEBULIZER TX INTERMITTENT SHARIFA MEJÍA LUR Start: 03-07-2019 NOTIFY PHYSICIAN (SPECIFY) SHARIFA BEAN ULUR Start: 03-07-2019 OT EVAL AND TREAT SHARIFA MEJÍALUR Start: 03-07-2019 PLACE INTERMITTENT PNEUMATIC COMPRESSION DEVICE SHARIFA MEJÍALUR Start: 03-07-2019 PT EVAL AND TREAT SHARIFA MEJÍALUR Start: 03-07-2019 REASON FOR NO CHEMICAL VTE PROPHYLAXIS SHARIFA MEJÍALUR Start: 03-07-2019 REASON FOR NOT SELECTING BASAL INSULIN SHARIFA MEJÍALUR Start: 03-07-2019 TOBACCO CESSATION EDUCATION SHARIFA CHILDERSLUR Start: 03-07-2019 VITAL SIGNS SHARIFA ABURTOR Start: 03-07-2019 Glucose blood reagent strip Talia hansen Work Phone: Start: 03-07-2019 PATIENT STATUS (FROM ED OR OR/PROCEDURAL) SHARIFA MEJÍALUR Start: 03-07-2019 IP CONSULT TO FAMILY MEDICINE SHARIFA MEJÍALUR Start: 03-07-2019 Gluc bld gluc mntr dev cleared fda spec home use SHARIFA MEJÍALUR Start: 03-07-2019 Glucose blood reagent strip SHARIFA CHILDERSLUR Start: 03-07-2019 Culture bacterial quanttative colony count urine SHARIFA MEJÍALUR Start: 03-07-2019 Ct abdomen & pelvis w/o contrast material SHARIFA MEJÍALUR Start: 03-07-2019 Ecg routine ecg w/least 12 lds w/i&r SHARIFA MEJÍALUR Start: 03-07-2019 EKG REPORT SHARIFA ABURTOR Start: 03-07-2019 Radiologic exam chest 2 views SHARIFA MENON Start: 03-07-2019 Assay of lipase SHARIFA MENON Start: 03-07-2019 Assay of troponin quantitative SHARIFA MENON Start: 03-07-2019 Blood count complete auto&auto difrntl wbc SHARIFA MENON Start: 03-07-2019 BRAIN NATRIURETIC PEPTIDE SHARIFA MEJÍA LUR Start: 03-07-2019 Comprehensive metabolic panel SHARIFA MENON Start: 03-07-2019 Hemoglobin glycosylated a1c SHARIFA GALARZA Start: 03-07-2019 Gluc bld gluc mntr dev cleared fda spec home use Mikaela Pfeiffer Work Phone: Start: 03-07-2019 Glucose blood reagent strip Wolfgang Moe Snipdangella bubl Work Phone: Start: 03-07-2019 Culture bacterial quanttative colony count urine Wolfgang Moe [employer] Work Phone: Start: 03-07-2019 Ct abdomen & pelvis w/o contrast material Mikaela Pfeiffer Work Phone: Start: 03-07-2019 Urinalysis microscopic only SHARIFA GALARZA Start: 03-07-2019 Urnls dip stick/tablet rgnt auto w/o microscopy SHARIFA MENON Start: 03-07-2019 Ecg routine ecg w/least 12 lds i&r only Mikaela Pfeiffer Work Phone: Start: 03-07-2019 EKG REPORT Hpf Scanning Start: 03-07-2019 Radiologic exam chest 2 views Mikaela Pfeifefr Work Phone: Start: 03-07-2019 Assay of lipase Mikaela Pfeiffer Work Phone: Start: 03-07-2019 End: 03-07-2019 Assay of troponin quantitative Mikaela Pfeiffer Work Phone: Start: 03-07-2019 Blood count complete auto&auto difrntl wbc Mikaela Pfeiffer Work Phone: Start: 03-07-2019 Comprehensive metabolic panel Mikaela Pfeiffer Work Phone: Start: 03-07-2019 Hemoglobin glycosylated a1c Mikaela linares Work Phone: Start: 03-07-2019 Natriuretic peptide Mikaela Pfeiffer Work Phone: Start: 03-07-2019 Urinalysis microscopic only Mikaela linares Work Phone: Start: 03-07-2019 Urnls dip stick/tablet rgnt auto w/o microscopy Mikaela Pfeiffer Work Phone: Start: 12-13-2018 Gluc bld gluc mntr dev cleared fda spec home use SHARIFA PANGULUR Start: 12-13-2018 Assay of magnesium SHARIFA MEJÍALUR Start: 12-13-2018 Glucose blood reagent strip SHARIFA SPIVEY GULUR Start: 12-13-2018 DISCHARGE PATIENT SHARIFA MEJÍALUR Start: 12-13-2018 Gluc bld gluc mntr dev cleared fda spec home use SHARIFA PANGULUR Start: 12-13-2018 INITIATE OXYGEN THERAPY PROTOCOL SHARIFA MEJÍALUR Start: 12-13-2018 RESPIRATORY CARE EVALUATION AND TREAT SHARIFA MEJÍALUR Start: 12-13-2018 Glucose blood reagent strip SHARIFA SPIVEY GULUR Start: 12-13-2018 Gluc bld gluc mntr dev cleared fda spec home use SHARIFA PANGULUR Start: 12-12-2018 Gluc bld gluc mntr dev cleared fda spec home use SHARIFA PANGULUR Start: 12-12-2018 Glucose blood reagent strip SHARIFA SPIVEY GULUR Start: 12-12-2018 Glucose blood reagent strip SHARIFA SPIVEY GULUR Start: 12-12-2018 Gluc bld gluc mntr dev cleared fda spec home use SHARIFA PANGULUR Start: 12-12-2018 Glucose blood reagent strip SHARIFA SPIVEY GULUR Start: 12-12-2018 Gluc bld gluc mntr dev cleared fda spec home use SHARIFA PANGULUR Start: 12-12-2018 INITIATE OXYGEN THERAPY PROTOCOL SHARIFA SPIVEYGULUR Start: 12-12-2018 RESPIRATORY CARE EVALUATION AND TREAT SHARIFA MEJÍALUR Start: 12-12-2018 Glucose blood reagent strip SHARIFA SPIVEY GULUR Start: 12-12-2018 Gluc bld gluc mntr dev cleared fda spec home use SHARIFA PANGULUR Start: 12-11-2018 Glucose blood reagent strip SHARIFA SPIVEY GULUR Start: 12-11-2018 Gluc bld gluc mntr dev cleared fda spec home use SHARIFA PANGULUR Start: 12-11-2018 DIETARY NUTRITION SUPPLEMENTS SHARIFA MEJÍALUR Start: 12-11-2018 Gluc bld gluc mntr dev cleared fda spec home use SHARIFA PANGULUR Start: 12-11-2018 Glucose blood reagent strip SHARIFA SPIVEY GULUR Start: 12-11-2018 Gluc bld gluc mntr dev cleared fda spec home use SHARIFA PANGULUR Start: 12-11-2018 INITIATE OXYGEN THERAPY PROTOCOL SHARIFA MEJÍALUR Start: 12-11-2018 RESPIRATORY CARE EVALUATION AND TREAT SHARIFA MEJÍALUR Start: 12-11-2018 Glucose blood reagent strip SHARIFA CHILDERSLUR Start: 12-11-2018 PLACE INTERMITTENT PNEUMATIC COMPRESSION DEVICE SHARIFA MEJÍALUR Start: 12-11-2018 Gluc bld gluc mntr dev cleared fda spec home use SHARIFA MEJÍALUR Start: 12-11-2018 Basic metabolic panel calcium total SHARIFA MEJÍALUR Start: 12-11-2018 Blood count complete auto&auto difrntl wbc SHARIFA MEJÍALUR Start: 12-11-2018 RESPIRATORY CARE EVALUATION AND TREAT SHARIFA MEJÍALUR Start: 12-10-2018 Gluc bld gluc mntr dev cleared fda spec home use SHARIFA MEJÍALUR Start: 12-10-2018 Glucose blood reagent strip SHARIFA CHILDERSLUR Start: 12-10-2018 DIET LOW SODIUM 2 GM SHARIFA MEJÍALUR Start: 12-10-2018 FULL CODE SHARIFA MEJÍALUR Start: 12-10-2018 IP CONSULT TO CARDIOLOGY SHARIFASUSAN MEJÍARodrigo UR Start: 12-10-2018 NOTIFY PHYSICIAN (SPECIFY) SHARIFA IVY Start: 12-10-2018 REASON FOR NO MECHANICAL VTE PROPHYLAXIS SHARIFA MEJÍALUR Start: 12-10-2018 VITAL SIGNS SHARIFA MEJÍALUR Start: 12-10-2018 Urnls dip stick/tablet rgnt auto w/o microscopy SHARIFA MEJÍALUR Start: 12-10-2018 PATIENT STATUS (FROM ED OR OR/PROCEDURAL) SHARIFA MEJÍALUR Start: 12-10-2018 Assay of troponin quantitative SHARIFA PANGULUR Start: 12-10-2018 IP CONSULT TO FAMILY MEDICINE SHARIFA MEJÍALUR Start: 12-10-2018 INITIATE OXYGEN THERAPY PROTOCOL SHARIFA SPIVEYGULUR Start: 12-10-2018 Ct abdomen & pelvis w/o contrast material SHARIFA SPIVEYGULUR Start: 12-10-2018 Radiologic exam chest 2 views SHARIFA PANGULUR Start: 12-10-2018 Blood count complete auto&auto difrntl wbc SHARIFA PANGULUR Start: 12-10-2018 Prothrombin time SHARIFA PANGULUR Start: 12-10-2018 Assay of lipase SHARIFA PANGULUR Start: 12-10-2018 Assay of troponin quantitative SHARIFA PANGULUR Start: 12-10-2018 BRAIN NATRIURETIC PEPTIDE SHARIFA PANGU LUR Start: 12-10-2018 Comprehensive metabolic panel SHARIFA PANGULUR Start: 12-10-2018 Drug screen quantitative digoxin total SHARIFA PANGULUR Start: 12-10-2018 Drug tst prsmv instrmnt chem analyzers pr date SHARIFA PANGULUR Start: 12-10-2018 Ecg routine ecg w/least 12 lds w/i&r SHARIFA PANGULUR Start: 12-10-2018 EKG REPORT SHARIFA MEJÍALUR Start: 12-10-2018 TELEMETRY MONITORING SHARIFA PANGULUR Start: 12-10-2018 INSERT PERIPHERAL IV SHARIFA PANGULUR Start: 11-03-2018 Assay of free thyroxine SHARIFA PANGULU R Start: 11-03-2018 Assay of thyroid stimulating hormone tsh SHARIFA PANGULUR Start: 11-03-2018 Assay of triiodothyronine t3 free SHARIFA PANGULUR Start: 11-03-2018 Basic metabolic panel calcium total SHARIFA PANGULUR Start: 10-23-2018 Assay of magnesium SHARIFA PANGULUR Start: 10-23-2018 Assay of phosphorus inorganic SHARIFA PANGULUR Start: 10-23-2018 Blood count complete auto&auto difrntl wbc SHARIFA PANGULUR Start: 10-23-2018 Comprehensive metabolic panel SHARIFA PANGULUR Start: 10-23-2018 Basic metabolic panel calcium total SHARIFA PANGULUR Start: 10-12-2018 Basic metabolic panel calcium total SHARIFA PANGULUR Start: 09-28-2018 Basic metabolic panel calcium total SHARIFA PANGULUR Start: 09-20-2018 Basic metabolic panel calcium total SHARIFA PANGULUR Start: 09-20-2018 HEMOGLOBIN AND HEMATOCRIT, BLOOD SHARIFA PANGULUR Start: 09-07-2018 Basic metabolic panel calcium total SHARIFA PANGULUR Start: 08-31-2018 Basic metabolic panel calcium total SHARIFA PANGULUR Start: 08-21-2018 Radiologic exam abdomen 1 view SHARIFA PANGULUR Start: 08-16-2018 Basic metabolic panel calcium total SHARIFA PANGULUR Start: 07-11-2018 Blood count complete automated SHARIFA PANGULUR Plan of Treatment Date Care Activity Detail Author Start: 03-13-2020 Creatinine monitoring Creatinine mon itoring [place], [place] Start: 03-13-2020 Potassium monitoring Potassium monit [place]ing [place] Start: 09-05-2019 A1C test (Diabetic o r Prediabetic) A1C test (Diabetic or Prediabetic) [place], [place] Start: 06-27-2019 DTaP/Tdap/Td vaccine (1 - Tdap) DTaP/Tdap/Td vaccine (1 - Tdap) [place], [place] Comment on above: Postponed from 03/25 (Insurance / Financial) Start: 04-20-2019 End: 04-20-2019 Office Visit 04/20/2019 Office Visit Urology Bryant Eller MD [facility] [address] [place], [place] [id number] [facility] [place] Start: 02-25-2019 Influenza vaccination Flu vaccine (# 1) [place], [place] Start: 11-22-2018 Annual Wellness Visi t (AWV) Annual Wellness Visit (AWV) [place], [place] Start: 11-30-2017 [object Object] Diabetic foot exam [place], [place] Start: 05-28-2017 Lipid screen Lipid screen [place], [place] Start: 05-26-2016 Diabetic retinal exam Diabetic retin al exam [place], [place] Start: 03-22-2016 Shingles Vaccine (2 of 3) Shingles Vaccine (2 of 3) [place], [place] Basic Metabolic Pane l w/ Reflex to MG Basic Metabolic Panel w/ Reflex to MG Lab Routine Daily until discontinued starting 03/08/2019, 6 completed [place] Comment on above: Daily until disconti nued starting 03/08/2019, 6 completed HHN Treatment HHN Treatment Respiratory Care Routine Every 4hr while awake until discontinued starting 03/08/2019 [place], [place] Comment on above: Every 4hr while awak e until discontinued starting 03/08/2019 Initiate Oxygen Ther apy Protocol Initiate Oxygen Therapy Protocol Respiratory Care Routine Daily until discontinued starting 03/07/2019 [place], [place] Comment on above: Daily until disconti nued starting 03/07/2019 POCT glucose [place], [place] Comment on above: 4X Daily (AC & HS) u ntil discontinued starting 03/08/2019 As Needed until disc ontinued starting 03/07/2019 Immunizations Immunization Date Immunization Notes Care Provider Richar crawley 03-10-2018 influenza, injectabl e, quadrivalent, preservative free [facility] 02-22-2017 influenza, injectabl e, quadrivalent, contains preservative [facility] 10-01-2016 pneumococcal conjuga te vaccine, 13 valent [facility] 04-01-2016 influenza, injectabl e, quadrivalent, contains preservative [facility] 01-26-2016 zoster vaccine, live [facility] [place] 01-02-2016 zoster vaccine, live Wolf[facility], [place] 05-26-2015 influenza virus vacc ine, unspecified formulation [facility] , [place] 05-27-2014 pneumococcal polysaccharide vaccine, 23 valent [facility] 05-10-2013 influenza virus vacc ine, unspecified formulation [facility] [place] 05-11-2012 influenza virus vacc ine, unspecified formulation [facility] [place] 06-10-2011 influenza virus vacc ine, unspecified [facility] [place] 05-19-2010 influenza virus vacc ine, unspecified formulation Wolfgang [place], [place] Payers Date Payer Category Payer Medicare BCBS MEDICARE AN THEM MEDIBLUE ESSENTIAL/PLUS xxxxxxxxxxxx 2015-Present [address] [address] [place] [address] xxxxxxxxxxxx [id number] 2015 Medicare [id number] 1935 Unknown [id number] 1935 Unknown [id number] [id number] 1935 Unknown [id number] [id number] 1935 Unknown [id number] 2.16.840.1.333208.3.579.2.176 1935 Unknown [id number] 2.16.840.1.428490.3.579.2.176 1935 Unknown [id number] 2.16.840.1.739812.3.579.2.176 1935 Unknown [id number] 2.16.840.1.313592.3.579.2.176 1935 Unknown [id number] 2.16.840.1.825499.3.579.2.176 1935 Unknown [id number] 2.16.840.1.774727.3.579.2.176 1935 Unknown [id number] 2.16.840.1.469755.3.579.2.176 1935 Unknown [id number] 2.16.840.1.193526.3.579.2.176 1935 Unknown [id number] 2.16.840.1.380991.3.579.2.176 1935 Unknown [id number] 2.16.840.1.322717.3.579.2.176 1935 Unknown [id number] 2.16.840.1.895686.3.579.2.176 1935 Unknown [id number] 2.16.840.1.301560.3.579.2.176 1935 Unknown [id number] 2.16.840.1.542007.3.579.2.176 1935 Unknown [id number] Social History Date Type Detail Facility Start: 03-07-2019 End: 03-16-2019 Tobacco smoking status PRIS Former smoker [place], [place] End: 06-27-1967 History of tobacco use Current [place]oker [place] Start: 03-07-2019 End: 03-16-2019 Cigarettes smoked current (pack per day) - Reported [place] Start: 03-07-2019 End: 03-16-2019 Alcohol intake No [place] Start: 01-06-2015 Tobacco Comment quit over 50 y ears ago [place], [place] Sex Assigned At Not on file [place] Discharge Instructions * Discharge Instr - JEWELL* Renee Fernandez RN - 03/09/2019 12:34 PM EDT Continuity of Care Form Patient Name: Juan Ramon Neville : 1935 Admit date: 03/07/2019 Discharge date: 03/13/2019 Code Status Order: DNR-CC Advance Directives: Advance Care Flowsheet Documentation Date/Time Healthcare Directive Type of Healthcare Directive Copy in Chart Healthcare Agent Appointed Healthcare Agent's Name Healthcare Agent's Phone Number 03/07/196 Yes, patient has an advance directive for healthcare treatment Admitting Physician: Talia Pastor MD PCP: Talia Pastor MD Discharging Nurse: Anca HOFFMANN Discharging Hospital Unit/Room#: 2043/2043-01 Discharging Unit Emergency Contact: Extended Emergency Contact Information Primary Emergency Contact: Alvin Neville Relation: Child Secondary Emergency Contact: Aleksandra Neville [facility] Mobile Relation: None Past Surgical History: Past Surgical History: Procedure Laterality Date APPENDECTOMY CHOLECYSTECTOMY COLONOSCOPY 06/13/2018 diverticulosis, large amounts old blood and clots, may need repeat colon COLONOSCOPY 07/17/2018 HERNIA REPAIR TONSILLECTOMY Immunization History: Immunization History Administered Date(s) Administered Influenza Virus Vaccine 05/19/2010, 06/10/2011, 05/11/2012, 05/10/2013, 05/26/2015 Influenza, Quadv, IM, (6 mo and older Fluzone, Flulaval, Fluarix and 3 yrs and older Afluria) 04/01/2016, 02/22/2017 Influenza, Quadv, IM, PF (6 mo and older Fluzone, Flulaval, Fluarix, and 3 yrs and older Afluria) 03/10/2018 Pneumococcal Conjugate 13-valent ([id number]) 10/01/2016 Pneumococcal Polysaccharide ([id number]) 05/27/2014 Zoster Live (Zostavax) 01/02/2016, 01/26/2016 Active Problems: Patient Active Problem List Diagnosis Code Benign essential hypertension I10 Renal cyst N28.1 SVT (supraventricular tachycardia) (HCC) I47.1 Uncontrolled type 2 diabetes mellitus without complication, with long-term current use of insulin (HCC) E11.65, Z79.4 Atrial fibrillation (HCC) I48.91 Hx of simple renal cyst Z87.448 Body mass index (BMI) of 23.0-23.9 in adult Z68.23 Hypomagnesemia E83.42 Diverticulosis K57.90 Acute blood loss anemia D62 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, I42.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 Chronic diastolic heart failure, NYHA class 2 (HCC) I50.32 CKD (chronic kidney disease) stage 3, GFR 30-59 ml/min ([facility]) N18.3 Hypercholesteremia E78.00 Mild pulmonary hypertension ([facility]) I27.20 Moderate tricuspid regurgitation I07.1 Presence of Watchman left atrial appendage closure device Z95.818 Urinary retention due to benign prostatic hyperplasia N40.1, R33.8 Chronic blood loss anemia D50.0 Acute on chronic systolic congestive heart failure (HCC) I50.23 Pneumonia J18.9 Isolation/Infection: Isolation No Isolation Nurse Assessment: Last Vital Signs: BP (!) 142/68 Pulse 102 Comment: after seated ex; remained in 100s throughout tx. Temp 97.3 F (36.3 C) (Oral) Resp 16 Ht 5' 10 (1.778 m) Wt 150 lb 9.2 oz (68.3 kg) KkV780% BMI 21.61 kg/m Last documented pain score (0-10 scale): Pain Level: 3 Last Weight: Wt Readings from Last 1 Encounters: 03/09/19 150 lb 9.2 oz (68.3 kg) Mental Status: oriented and alert IV Access: - None Nursing Mobility/ADLs: Walking Assisted Transfer Assisted Bathing Assisted Dressing Assisted Toileting Assisted Feeding Assisted Labor Crew Supervisor Assisted Med Delivery whole Wound Care Documentation and Therapy: Elimination: Continence: Bowel: Yes Bladder: Yes Urinary Catheter: None Colostomy/Ileostomy/Ileal Conduit: No Date of Last BM: Intake/Output Summary (Last 24 hours) at 03/09/2019 1232 Last data filed at 03/09/2019 0800 Gross per 24 hour Intake 100 ml Output 2550 ml Net -2450 ml I/O last 3 completed shifts: In: 100 [I.V.:100] Out: 1675 [Urine:1675] Safety Concerns: At Risk for Falls Impairments/Disabilities: None Nutrition Therapy: Current Nutrition Therapy: - Oral Diet: General Routes of Feeding: Oral Liquids: No Restrictions Daily Fluid Restriction: no Last Modified Barium Swallow with Video (Video Swallowing Test): not done Treatments at the Time of Hospital Discharge: Respiratory Treatments: Oxygen Therapy: is not on home oxygen therapy. Ventilator: - No ventilator support Rehab Therapies: Physical Therapy and Occupational Therapy Weight Bearing Status/Restrictions: No weight bearing restirctions Other Medical Equipment (for information only, NOT a DME order): Other Treatments: senior care assessment, medication education and monitoring, resume previous orders Patient's personal belongings (please select all that are sent with patient): None RN SIGNATURE: MANAGEMENT/SOCIAL WORK SECTION Inpatient Status Date: 03/07/2019 Readmission Risk Assessment Score: Readmission Risk Risk of Unplanned Readmission: 19 Discharging to Facility/ Agency Name: [facility] ([facility] Address: [address] [facility] [address] network coordinator crystal [phone] Fax: Signalman/Project Associate signature: ICIAN SECTION Prognosis: Guarded Condition at Discharge: Stable Rehab Potential (if transferring to Rehab): Guarded Recommended Labs or Other Treatments After Discharge: Physician Certification: I certify the above information and transfer of Juan Ramon Neville is necessary for the continuing treatment of the diagnosis listed and that he requires Snf Facility for less 30 days. Update Admission H&P: No change in H&P PHYSICIAN SIGNATURE: documented in this encounter* Instructions* Josh Hess MD - 03/27/2019 Blood tests today showed that your creatinine is higher than normal, this can be a sign of injury to the kidney or dehydration. The medication Lasix can cause this as well. DO NOT ADMINISTER LASIX TOMORROW (March 28). Please have Dr Clark order a recheck of kidney function in the next day or 2. Please come back to the Emergency Department if you develop chest pain or difficulty breathing. documented in this encounter* Instructions* Javier Devries MD - 03/16/2019 --- --- Current Diagnosis -acute urinary retention --- Results -no urinary tract infection --- Treatment -follow-up with urology --- Return to ED for -worse or concerning symptoms --- Follow up - Your Primary Care Physician in 2 days if no better or worse, --- --- You have been seen, evaluated, treated, and reevaluated in the emergency department. Your test results and diagnoses have been explained to you . You have expressed understanding of the results, yourdiagnosis, and its implications. All of your questions have been answered. Please read your discharge instructions carefully and follow them as directed. You have been provided access to your imagingand lab results and had any abnormalities explained, please take them to your doctor as they may require follow up as we discussed. --- It is important to remember that your care does not end here and you must continue to monitor your condition closely. Please return to the emergency department for any worsening or concerning signs or symptoms as directed by our conversations and the discharge instructions. Otherwise please follow up with your doctor in 2 days if no better or worse. If you do not have a doctor please contact the hospital of your choice. Please contact any physician specialists provided in your discharge notes as it is very important to follow up with them regarding your condition. If you are unable to reach the physicians provided, please come back to the Emergency Department at any time. --- As always, please take medications as directed. If you have any questions at all regarding your medications, please contact the pharmacist, the emergency department, or your doctor. Before taking anymedication prescribed in the Emergency Department, please review the medication side effects and drug interactions (http://www.rxlist.com/script/main/hp.asp) as they may interact with your home medications. --- Having trouble affording medications? Try [facility]! (This is not a hospital endorsed website, merely a recommendation based on my own personal experiences with [facility]) --- Questions? Contact me anytime. Javier Devries MD, JAYSON --- --- * Attachments The following attachments cannot be sent through Care Everywhere. * Urinary Retention (Setswana) documented in this encounter History of Present Illness * Talia Pastor MD - 03/13/2019 8:19 AM EDT Awaiting disposition - SNF vs. Home care Talia Pastor MD 03/13/2019 0819 * Talia Pastor MD - 03/12/2019 12:17 PM EDT Called for Peer to Peer - physician is going to further review the case and fax result to Case management team. * Tra Donald OTA - 03/12/2019 10:40 AM EDT [facility] OCCUPATIONAL THERAPY MISSED TREATMENT NOTE INPATIENT Date: 03/12/19 Patient Name: Juan Ramon Neville Room: : 1935 (83 y.o.) Gender: male Referring Practitioner: Dr. Pastor Diagnosis: Pneumonia REASON FOR MISSED TREATMENT: Patient with another ancillary department - 10:40 respiratory in room with pt. will attempt again time permitting EDU Elliott * Guru Arriaga MD - 03/12/2019 9:53 AM EDT PULMONARY PROGRESS NOTE: Interval History: Pneumonia Shortness of Breath: denies Cough: no Sputum: no Hemoptysis: no Chest Pain: no Fever: no Swelling Feet: no Headache: no Nausea, Emesis, Abdominal Pain: no Diarrhea: no Constipation: no Events since last visit: none PAST MEDICAL HISTORY: Smoking: PHYSICAL EXAMINATION: afebrile General : Awake, alert and oriented with appropriate affect Neck supple, no lymphadenopathy, JVD not raised Heart regular rhythm, S1 and S2 normal; no additional sounds heard Lungs Air Entry- fair bilaterally; breath sounds : clear, 96% on RA Abdomen soft, no tenderness Upper Extremities - no cyanosis, mottling; edema : absent Lower Extremities: no cyanosis, mottling; edema : trace BLE edema Current Laboratory, Radiologic, Microbiologic, and Diagnostic studies reviewed ASSESSMENT / PLAN: CHF - stable - per cardiology Klebsiella UTI susceptible to current ABx therapy Hx pl effusion - thoracentesis x 2 in last 3 months Confusion / encephalopathy / dementia - close to baseline CXR reviewed that was ordered this morning - no significant pleural fluid Stable from pulmonary standpoint - okay for ECF Plan of care discussed with Dr Arriaga REASON FOR VISIT: pneumonia, UTI I examined the patient myself The assessment and Plan in the note per my discussion with CYTOTECHNOLOGIST SUPERVISOR * Talia Pastor MD - 03/11/2019 1:42 PM EDT Juan Ramon Neville is a 83 y.o. male patient. Current Facility-Administered Medications Medication Dose Route Frequency Provider Last Rate Last Dose ciprofloxacin (CIPRO) tablet 250 mg 250 mg Oral 2 times per day Talia Pastor MD 250 mg at 03/11/19 0939 atorvastatin (LIPITOR) tablet 40 mg 40 mg Oral Daily Talia Pastor MD 40 mg at 03/11/19 0938 diltiazem (CARDIZEM CD) extended release capsule 240 mg 240 mg Oral Daily Talia Pastor MD 240 mg at 03/11/19 0939 fenofibrate tablet 160 mg 160 mg Oral Daily Talia Pastor MD 160 mg at 03/11/19 0939 finasteride (PROSCAR) tablet 5 mg 5 mg Oral Daily Talia Pastor MD 5 mg at 03/11/19 0939 furosemide (LASIX) tablet 40 mg 40 mg Oral Daily Talia Pastor MD 40 mg at 03/11/19 0940 insulin glargine (LANTUS) injection vial 10 Units 10 Units Subcutaneous QAM Talia Pastor MD10 Units at 03/11/19 0900 lisinopril (PRINIVIL;ZESTRIL) tablet 40 mg 40 mg Oral Daily Talia Pastor MD 40 mg at 03/11/19 0941 magnesium oxide (MAG-OX) tablet 400 mg 400 mg Oral Daily Talia Pastor MD 400 mg at 942 metoprolol succinate (TOPROL XL) extended release tablet 100 mg 100 mg Oral Daily Talia Pastor MD 100 mg at 03/11/19 0942 linagliptin (TRADJENTA) tablet 5 mg 5 mg Oral Daily Talia Pastor MD 5 mg at 03/11/19 0941 tamsulosin (FLOMAX) capsule 0.8 mg 0.8 mg Oral Daily Talia Pastor MD 0.8 mg at 03/11/19 0943 vitamin E capsule 400 Units 400 Units Oral Daily Talia Pastor MD 400 Units at 03/11/19 0944 insulin glargine (LANTUS) injection vial 8 Units 8 Units Subcutaneous Nightly Talia Pastor MD 8 Units at 03/10/192004 glucose (GLUTOSE) 40 % oral gel 15 g 15 g Oral PRN Talia Pastor MD dextrose 50 % IV solution 12.5 g Intravenous PRN Talia Pastor MD glucagon (rDNA) injection 1 mg 1 mg Intramuscular PRN Talia Pastor MD dextrose 5 % solution 100 mL/hr Intravenous PRN Talia Pastor MD insulin lispro (HUMALOG) injection vial 0-6 Units 0-6 Units Subcutaneous TID Talia Pastor MD 1 Units at 03/11/19 1235 insulin lispro (HUMALOG) injection vial 0-3 Units 0-3 Units Subcutaneous Nightly Talia Pastor MD 2 Units at 03/10/192004 albuterol (PROVENTIL) nebulizer solution 2.5 mg 2.[address] Talia Pastor MD 2.5 mg at 03/11/19 1052 sodium chloride flush 0.9 % injection 10 mL 10 mL Intravenous 2 times per day Talia Pastor MD 10 mL at 03/11/19 0942 sodium chloride flush 0.9 % injection 10 mL 10 mL Intravenous PRN Talia Pastor MD magnesium hydroxide (MILK OF MAGNESIA) 400 MG/5ML suspension 30 mL 30 mL Oral Daily PRN Talia Pastor MD ondansetron (ZOFRAN) injection 4 mg 4 mg Intravenous Q6H PRN Talia Pastor MD 4 mg at 03/08/19 1338 acetaminophen (TYLENOL) tablet 650 mg 650 mg Oral Q4H PRN Talia Pastor MD 650 mg at 03/08/19 1227 ziprasidone (GEODON) capsule 20 mg 20 mg Oral BID Talia Pastor MD 20 mg at 03/11/19 0943 Allergies Allergen Reactions Diphenhydramine Hcl Principal Problem: Pneumonia Active Problems: SVT (supraventricular tachycardia) (HCC) Benign essential hypertension Uncontrolled type 2 diabetes mellitus without complication, with long-term current use of insulin (HCC) Atrial fibrillation (HCC) CHF with cardiomyopathy (HCC) Chronic diastolic heart failure, NYHA class 2 (HCC) CKD (chronic kidney disease) stage 3, GFR 30-59 ml/min (HCC) Mild pulmonary hypertension (HCC) Presence of Watchman left atrial appendage closure device Urinary retention due to benign prostatic hyperplasia Chronic blood loss anemia Resolved Problems: * No resolved hospital problems. * Blood pressure (!) 120/51, pulse 72, temperature 97.3 F (36.3 C), temperature source Oral, resp. rate 20, height 5' 10 (1.778 m), weight 151 lb 3.8 oz (68.6 kg), SpO2 100 %. Subjective: Symptoms: Stable. Diet: Adequate intake. Activity level: Impaired due to weakness. Pain: He reports no pain. Objective: General Appearance: Comfortable. Vital signs: (most recent): Blood pressure (!) 120/51, pulse 72, temperature 97.3 F (36.3 C), temperature source Oral, resp. rate 20, height 5' 10 (1.778 m), weight 151 lb 3.8 oz (68.6 kg), SpO2 100%. Vital signs are normal. Lungs: Normal effort and normal respiratory rate. There are decreased breath sounds. Heart: Normal rate. Irregular rhythm. S1 normal and S2 normal. Assessment & Plan UTI - Cipro D/c planning Late entry on patient seen 0600 Talia Pastor MD 03/11/2019 * Guru Arriaga MD - 03/11/2019 12:59 PM EDT PULMONARY PROGRESS NOTE: Interval History: Pneumonia Shortness of Breath: denies Cough: no Sputum: no Hemoptysis: no Chest Pain: no Fever: no Swelling Feet: no Headache: no Nausea, Emesis, Abdominal Pain: no Diarrhea: no Constipation: no Events since last visit: none PAST MEDICAL HISTORY: Smoking: PHYSICAL EXAMINATION: afebrile General : Awake, alert, oriented to time, place, and person Neck supple, no lymphadenopathy, JVD not raised Heart regular rhythm, S1 and S2 normal; no additional sounds heard Lungs Air Entry- fair bilaterally; breath sounds : decreased AE rt base, late inspiratory rales right base, 95% on RA Abdomen soft, no tenderness Upper Extremities - no cyanosis, mottling; edema : absent Lower Extremities: no cyanosis, mottling; edema : trace ankle edema Current Laboratory, Radiologic, Microbiologic, and Diagnostic studies reviewed ASSESSMENT / PLAN: CHF - stable - per cardiology Klebsiella UTI susceptible to current ABx therapy Hx pl effusion - thoracentesis x 2 in last 3 months Confusion / encephalopathy / dementia - close to baseline CXR reviewed that was ordered this morning - no significant pleural fluid Plan of care discussed with Dr Arriaga REASON FOR VISIT: pneumonia I examined the patient myself The assessment and Plan in the note per my discussion with CYTOTECHNOLOGIST SUPERVISOR * Andrew Duncan MD - 03/11/2019 11:25 AM EDT [facility] Progress Note 03/11/2019 11:25 AM Subjective: Mr. Neville has no chest pain, shortness of breath, or palpitations LABS: CBC: No results for input(s): WBC, HGB, HCT, MCV, PLT in the last 72 hours. BMP: Recent Labs 03/09/19 0741 03/10/19 0641 03/11/19 0657 NA 137 141 140 K 4.4 4.2 4.0 CL 98 102 104 CO2 24 27 26 BUN 22 24* 22 CREATININE 1.54* 1.69* 1.49* PT/INR: No results for input(s): PROTIME, INR in the last 72 hours. APTT: No results for input(s): APTT in the last 72 hours. MAG: Recent Labs 03/10/19 0641 MG 2.1 D Dimer: No results for input(s): DDIMER in the last 72 hours. Troponin: No results for input(s): TROPONINT, TROPONINI in the last 72 hours. PROBNP No results for input(s): PROBNP in the last 72 hours. Pulse Ox: SpO2 Av.4 % Min: 95 % Max: 100 % Supplemental O2: O2 Flow Rate (L/min): 3 L/min Current Meds: ciprofloxacin 250 mg Oral 2 times per day atorvastatin 40 mg Oral Daily diltiazem 240 mg Oral Daily fenofibrate 160 mg Oral Daily finasteride 5 mg Oral Daily furosemide 40 mg Oral Daily insulin glargine 10 Units Subcutaneous QAM lisinopril 40 mg Oral Daily magnesium oxide 400 mg Oral Daily metoprolol succinate 100 mg Oral Daily linagliptin 5 mg Oral Daily tamsulosin 0.8 mg Oral Daily vitamin E 400 Units Oral Daily insulin glargine 8 Units Subcutaneous Nightly insulin lispro 0-6 Units Subcutaneous TID WC insulin lispro 0-3 Units Subcutaneous Nightly albuterol 2.[address] sodium chloride flush 10 mL Intravenous 2 times per day ziprasidone 20 mg Oral BID WC Continuous Infusions: dextrose VITAL SIGNS: BP (!) 112/51 Pulse 53 Temp 97.6 F (36.4 C) (Oral) Resp 16 Ht 5' 10 (1.778 m) Wt 151 lb 3.8 oz (68.6 kg) SpO2 99% BMI 21.70 kg/m 3 L/min Admit Weight: 162 lb (73.5 kg) Last 3 weights: Wt Readings from Last 3 Encounters: 03/10/19 151 lb 3.8 oz (68.6 kg) 01/09/19 167 lb 4 oz (75.9 kg) 12/18/18 170 lb 2 oz (77.2 kg) BMI: Body mass index is 21.7 kg/m . INPUT/OUTPUT: Intake/Output Summary (Last 24 hours) at 03/11/2019 1125 Last data filed at 03/10/2019 1745 Gross per 24 hour Intake 250 ml Output 650 ml Net -400 ml EXAM: General appearance: awake and alert moves all ext Lungs: no rhonchi, no wheezes, no rales Heart: Irregularly irregular heart rhythm S1 and S2 no murmur Abdomen: positive bowel sounds, no bruits, no masses Extremities: warm and dry, no cyanosis, no clubbing Principal Problem: Pneumonia Active Problems: SVT (supraventricular tachycardia) (HCC) Benign essential hypertension Uncontrolled type 2 diabetes mellitus without complication, with long-term current use of insulin (HCC) Atrial fibrillation (HCC) CHF with cardiomyopathy (HCC) Chronic diastolic heart failure, NYHA class 2 (HCC) CKD (chronic kidney disease) stage 3, GFR 30-59 ml/min (HCC) Mild pulmonary hypertension (HCC) Presence of Watchman left atrial appendage closure device Urinary retention due to benign prostatic hyperplasia Chronic blood loss anemia Resolved Problems: * No resolved hospital problems. * Assessment: 1 atrial fibrillation with periods of slow ventricular response, patient status post watchman device. 2 mild lung congestion Recommendations: Digoxin was discontinued rate still bradycardic at times. Continue Cardizem and Lopressor This note was created with the assistance of a speech-recognition program. Although the intention is to generate a document that actually reflects the content of the visit, no guarantees can be provided that every mistake has been identified and corrected by editing. ANDREW DUNCAN MD FACC * Candy Johnston, SHUN - 03/10/2019 9:00 PM EDT Patient states the waffle mattress is making him more uncomfortable. Offered to de-inflate it for awhile, patient refused and wanted it removed from his bed. Waffle mattress removed per patient request. Offered pillow support to offload pressure from coccyx, patient refused this also. Encouraged frequent shifting of weight to prevent further redness on coccyx. Will continue to monitor. * Davonte Paz PT - 03/10/2019 11:46 AM EDT Physical Therapy Facility/Department: [facility] MED SURG Daily Treatment Note NAME: Juan Ramon Neville : 1935 Date of Service: 03/10/2019 Discharge Recommendations: ECF with PT PT Equipment Recommendations Equipment Needed: No Assessment Assessment: progressing well in Gait REQUIRES PT FOLLOW UP: Yes Activity Tolerance Activity Tolerance: Patient Tolerated treatment well Patient Diagnosis(es): The primary encounter diagnosis was VANESA (acute kidney injury) (HCC). Diagnoses of Pneumonia due to organism and Acute cystitis without hematuria were also pertinent to this visit. has a past medical history of Benign essential hypertension, Body mass index (BMI) 23 or greater, Diabetes mellitus type II, uncontrolled (HCC), Gallbladder disease, Hearing loss, Hyperlipidemia, Hypertension, Liver disease, Otitis externa, Renal insufficiency, and Type II or unspecified type diabetes mellitus without mention of complication, not stated as uncontrolled. has a past surgical history that includes Appendectomy; Cholecystectomy; hernia repair; Tonsillectomy; Colonoscopy (06/13/2018); and Colonoscopy (07/17/2018). Restrictions Restrictions/Precautions Restrictions/Precautions: Fall Risk Required Braces or Orthoses?: No Subjective Subjective Subjective: no complains of pain today Pain Screening Patient Currently in Pain: No Vital Signs Patient Currently in Pain: No Orientation Orientation Overall Orientation Status: Within Functional Limits Cognition WFL Objective Bed mobility Rolling to Left: Contact guard assistance Rolling to Right: Contact guard assistance Supine to Sit: Contact guard assistance Sit to Supine: Contact guard assistance Transfers Sit to Stand: Contact guard assistance Stand to sit: Contact guard assistance Bed to Chair: Contact guard assistance Stand Pivot Transfers: Contact guard assistance Ambulation 1 Surface: level tile Device: Rolling Walker Assistance: Contact guard assistance Gait Deviations: None Distance: 160ft Stairs/Curb Stairs?: No Exercises Hip Flexion: BLE sitting 10x Knee Long Arc Quad: BLE 10x Goals Short term goals Time Frame for Short term goals: 3-5 treatments/ week- REVISED GOALS Short term goal 1: pt to tolerate 1/2 hour of therapuetic exercise and activity Short term goal 2: pt to complete LE ROM and strengthening exercises w/ cuing Short term goal 3: pt to follow directions accurately 50% to complete exercises and treatment Short term goal 4: pt to demonstrate rolling in bed w/ rail MOD I for position change Short term goal 5: pt to demonstrate transfers supine <> sit, sit <> stand and bed <> chair w/ SBA x 1 Short term goal 6: pt to demonstrate standing balance using w walker to fair + or better using w walker w/ SBA x 1 Short term goal 7: pt to demonstrate gait w/ w walker 50-80' w/ CGA x 1 Patient Goals Patient goals : return home Plan Plan Times per week: 3-5 treatments/ week Times per day: (3-5 treatments/ week) Specific instructions for Next Treatment: 03-08-19 ECF w/ PT- rolling either direction w/ supervision using rail, nurse Cavazos deferred OOB due to confusion & yelling, further assess mobility when ready Current Treatment Recommendations: Strengthening, Transfer Training, Gait Training Plan Comment: to continue PT per POC Safety Devices Type of devices: Left in chair, Call light within reach Restraints Initially in place: No Therapy Time Individual Concurrent Group Co-treatment Time In 1030 Time Out 1100 Minutes 30 Timed Code Treatment Minutes: 30 Minutes * Andrew Duncan MD - 03/10/2019 10:48 AM EDT [facility] Progress Note 03/10/2019 10:48 AM Subjective: Mr. Neville has no chest pain, shortness of breath, or palpitations Asked to see patient again for periods of bradycardia while sleeping LABS: CBC: Recent Labs 03/07/19 1705 WBC 10.3 HGB 10.5* HCT 33.5* MCV 71.7* PLT 273 BMP: Recent Labs 03/08/19 0626 03/09/19 0741 03/10/19 0641 NA 139 137 141 K 4.6 4.4 4.2 CL 100 98 102 CO2 28 24 27 BUN 27* 22 24* CREATININE 1.57* 1.54* 1.69* PT/INR: No results for input(s): PROTIME, INR in the last 72 hours. APTT: No results for input(s): APTT in the last 72 hours. MAG: Recent Labs 03/10/19 0641 MG 2.1 D Dimer: No results for input(s): DDIMER in the last 72 hours. Troponin: Recent Labs 03/07/19 1705 03/07/19 1900 TROPONINT NOT REPORTED NOT REPORTED PROBNP Recent Labs 03/07/19 1705 PROBNP 946* Pulse Ox: SpO2 Av.6 % Min: 96 % Max: 100 % Supplemental O2: O2 Flow Rate (L/min): 3 L/min Current Meds: ciprofloxacin 250 mg Oral 2 times per day atorvastatin 40 mg Oral Daily diltiazem 240 mg Oral Daily fenofibrate 160 mg Oral Daily finasteride 5 mg Oral Daily furosemide 40 mg Oral Daily insulin glargine 10 Units Subcutaneous QAM lisinopril 40 mg Oral Daily magnesium oxide 400 mg Oral Daily metoprolol succinate 100 mg Oral Daily linagliptin 5 mg Oral Daily tamsulosin 0.8 mg Oral Daily vitamin E 400 Units Oral Daily insulin glargine 8 Units Subcutaneous Nightly insulin lispro 0-6 Units Subcutaneous TID WC insulin lispro 0-3 Units Subcutaneous Nightly albuterol 2.[address] sodium chloride flush 10 mL Intravenous 2 times per day ziprasidone 20 mg Oral BID WC Continuous Infusions: dextrose VITAL SIGNS: BP 123/69 Pulse 73 Temp 97.2 F (36.2 C) (Oral) Resp 16 Ht 5' 10 (1.778 m) Wt 151 lb 3.8 oz (68.6 kg) SpO2 96% BMI 21.70 kg/m 3 L/min Admit Weight: 162 lb (73.5 kg) Last 3 weights: Wt Readings from Last 3 Encounters: 03/10/19 151 lb 3.8 oz (68.6 kg) 01/09/19 167 lb 4 oz (75.9 kg) 12/18/18 170 lb 2 oz (77.2 kg) BMI: Body mass index is 21.7 kg/m . INPUT/OUTPUT: Intake/Output Summary (Last 24 hours) at 03/10/2019 1048 Last data filed at 03/10/2019 0539 Gross per 24 hour Intake 360 ml Output 650 ml Net -290 ml TELEMETRY Atrial fib EXAM: General appearance: awake and alert moves all ext Lungs: no rhonchi, no wheezes, no rales Heart: S1 and S2 no murmur Abdomen: positive bowel sounds, no bruits, no masses Extremities: warm and dry, no cyanosis, no clubbing Principal Problem: Pneumonia Active Problems: SVT (supraventricular tachycardia) (HCC) Benign essential hypertension Uncontrolled type 2 diabetes mellitus without complication, with long-term current use of insulin (HCC) Atrial fibrillation (HCC) CHF with cardiomyopathy (HCC) Chronic diastolic heart failure, NYHA class 2 (HCC) CKD (chronic kidney disease) stage 3, GFR 30-59 ml/min (HCC) Mild pulmonary hypertension (HCC) Presence of Watchman left atrial appendage closure device Urinary retention due to benign prostatic hyperplasia Chronic blood loss anemia Resolved Problems: * No resolved hospital problems. * Assessment: 1. Atrial fibrillation, status post watchman device not on anticoagulation. periods of bradycardia, while he is sleeping with pauses 2. Admitted with confusion, was found to have pneumonia possible UTI Recommendations: Will check digoxin level and will D/C digoxin Continue Cardizem and Lopressor This note was created with the assistance of a speech-recognition program. Although the intention is to generate a document that actually reflects the content of the visit, no guarantees can be provided that every mistake has been identified and corrected by editing. ANDREW DUNCAN MD [facility] * Talia Pastor MD - 03/10/2019 10:31 AM EDT Juan Ramon Neville is a 83 y.o. male patient. Current Facility-Administered Medications Medication Dose Route Frequency Provider Last Rate Last Dose ciprofloxacin (CIPRO) tablet 250 mg 250 mg Oral 2 times per day Talia Pastor MD atorvastatin (LIPITOR) tablet 40 mg 40 mg Oral Daily Talia Pastor MD 40 mg at 03/09/19914 diltiazem (CARDIZEM CD) extended release capsule 240 mg 240 mg Oral Daily Talia Pastor MD 240 mg at 03/09/19914 fenofibrate tablet 160 mg 160 mg Oral Daily Talia Pastor MD 160 mg at 03/09/19914 finasteride (PROSCAR) tablet 5 mg 5 mg Oral Daily Talia Pastor MD 5 mg at 03/09/19914 furosemide (LASIX) tablet 40 mg 40 mg Oral Daily Talia Pastor MD 40 mg at 03/09/19914 insulin glargine (LANTUS) injection vial 10 Units 10 Units Subcutaneous QAM Talia Pastor MD10 Units at 03/09/19916 lisinopril (PRINIVIL;ZESTRIL) tablet 40 mg 40 mg Oral Daily Talia Pastor MD 40 mg at 03/09/19914 magnesium oxide (MAG-OX) tablet 400 mg 400 mg Oral Daily Talia Pastor MD 400 mg at metoprolol succinate (TOPROL XL) extended release tablet 100 mg 100 mg Oral Daily Talia Pastor MD 100 mg at 03/09/19914 linagliptin (TRADJENTA) tablet 5 mg 5 mg Oral Daily Talia Pastor MD 5 mg at 03/09/19914 tamsulosin (FLOMAX) capsule 0.8 mg 0.8 mg Oral Daily Talia Pastor MD 0.8 mg at 03/09/19914 vitamin E capsule 400 Units 400 Units Oral Daily Talia Pastor MD 400 Units at 03/09/19918 insulin glargine (LANTUS) injection vial 8 Units 8 Units Subcutaneous Nightly Talia Pastor MD 8 Units at 03/09/192114 glucose (GLUTOSE) 40 % oral gel 15 g 15 g Oral PRN Talia Pastor MD dextrose 50 % IV solution 12.5 g Intravenous PRN Talia Pastor MD glucagon (rDNA) injection 1 mg 1 mg Intramuscular PRN Talia Pastor MD dextrose 5 % solution 100 mL/hr Intravenous PRN Talia Pastor MD insulin lispro (HUMALOG) injection vial 0-6 Units 0-6 Units Subcutaneous TID Talia Pastor MD 3 Units at 03/09/19 170 insulin lispro (HUMALOG) injection vial 0-3 Units 0-3 Units Subcutaneous Nightly Talia Pastor MD 1 Units at 03/09/192113 albuterol (PROVENTIL) nebulizer solution 2.5 mg 2.[address] Talia Pastor MD 2.5 mg at 03/10/19 0657 sodium chloride flush 0.9 % injection 10 mL 10 mL Intravenous 2 times per day Talia Pastor MD 10 mL at 03/09/192117 sodium chloride flush 0.9 % injection 10 mL 10 mL Intravenous PRN Talia Pastor MD magnesium hydroxide (MILK OF MAGNESIA) 400 MG/5ML suspension 30 mL 30 mL Oral Daily PRN Talia Pastor MD ondansetron (ZOFRAN) injection 4 mg 4 mg Intravenous Q6H PRN Talia Pastor MD 4 mg at 03/08/19 1338 acetaminophen (TYLENOL) tablet 650 mg 650 mg Oral Q4H PRN Talia Pastor MD 650 mg at 03/08/19 1227 ziprasidone (GEODON) capsule 20 mg 20 mg Oral BID Talia Pastor MD 20 mg at 03/09/19 1659 Allergies Allergen Reactions Diphenhydramine Hcl Principal Problem: Pneumonia Active Problems: SVT (supraventricular tachycardia) (HCC) Benign essential hypertension Uncontrolled type 2 diabetes mellitus without complication, with long-term current use of insulin (HCC) Atrial fibrillation (HCC) CHF with cardiomyopathy (HCC) Chronic diastolic heart failure, NYHA class 2 (HCC) CKD (chronic kidney disease) stage 3, GFR 30-59 ml/min (HCC) Mild pulmonary hypertension (HCC) Presence of Watchman left atrial appendage closure device Urinary retention due to benign prostatic hyperplasia Chronic blood loss anemia Resolved Problems: * No resolved hospital problems. * Blood pressure 123/69, pulse 73, temperature 97.2 F (36.2 C), temperature source Oral, resp. rate 16, height 5' 10 (1.778 m), weight 151 lb 3.8 oz (68.6 kg), SpO2 96 %. Subjective: Symptoms: Resolved. Diet: Adequate intake. Activity level: Impaired due to weakness. Pain: He reports no pain. Objective: General Appearance: Comfortable. Vital signs: (most recent): Blood pressure 123/69, pulse 73, temperature 97.2 F (36.2 C), temperature source Oral, resp. rate 16, height 5' 10 (1.778 m), weight 151 lb 3.8 oz (68.6 kg), SpO2 96 %. Vital signs are normal. Assessment & Plan Klebsiella uti - change to PO Cipro, d/c to SNF when Precert obtained. Associated with indwelling pedroza No pneumonia Dementia with delirium d/t UTI - resolved. Talia Pastor MD 03/10/2019 1033 Talia Pastor MD 03/10/2019 * Guru Arriaga MD - 03/10/2019 9:11 AM EDT PULMONARY PROGRESS NOTE: Interval History: Pneumonia Shortness of Breath: denies Cough: no Sputum: no Hemoptysis: no Chest Pain: no Fever: no Swelling Feet: no Headache: no Nausea, Emesis, Abdominal Pain: no Diarrhea: no Constipation: no Events since last visit: none PAST MEDICAL HISTORY: Smoking: PHYSICAL EXAMINATION: afebrile General : Awake, alert, oriented to time, place, and person Neck supple, no lymphadenopathy, JVD not raised Heart regular rhythm, S1 and S2 normal; no additional sounds heard Lungs Air Entry- fair bilaterally; breath sounds : vesicular, 96% on RA Abdomen soft, no tenderness Upper Extremities - no cyanosis, mottling; edema : absent Lower Extremities: no cyanosis, mottling; edema : absent Current Laboratory, Radiologic, Microbiologic, and Diagnostic studies reviewed ASSESSMENT / PLAN: CHF - stable - per cardiology Klebsiella UTI susceptible to current ABx therapy ? Pneumonia - atelectasis on CXR Hx pl effusion - thoracentesis x 2 in last 3 months Confusion / encephalopathy / dementia - close to baseline Plan of care discussed with Dr Bart HUERTA, SOFTBALL PLAYER - [employer]ASS PRESSER REASON FOR VISIT: Pl effusion, dyspnea I examined the patient myself The assessment and Plan in the note per my discussion with CYTOTECHNOLOGIST SUPERVISOR * Andrew Duncan MD - 03/09/2019 5:32 PM EDT [facility] Progress Note 03/09/2019 5:32 PM Subjective: Mr. Neville has no chest pain, shortness of breath, or palpitations LABS: CBC: Recent Labs 03/07/19 1705 WBC 10.3 HGB 10.5* HCT 33.5* MCV 71.7* PLT 273 BMP: Recent Labs 03/07/19 1705 03/08/19 0626 03/09/19 0741 NA 138 139 137 K 4.6 4.6 4.4 CL 98 100 98 CO2 28 28 24 BUN 30* 27* 22 CREATININE 1.70* 1.57* 1.54* PT/INR: No results for input(s): PROTIME, INR in the last 72 hours. APTT: No results for input(s): APTT in the last 72 hours. MAG: No results for input(s): MG in the last 72 hours. D Dimer: No results for input(s): DDIMER in the last 72 hours. Troponin: Recent Labs 03/07/19 1705 03/07/19 1900 TROPONINT NOT REPORTED NOT REPORTED PROBNP Recent Labs 03/07/19 170 PROBNP 946* Pulse Ox: SpO2 Av.3 % Min: 96 % Max: 100 % Supplemental O2: O2 Flow Rate (L/min): 3 L/min Current Meds: atorvastatin 40 mg Oral Daily diltiazem 240 mg Oral Daily digoxin 125 mcg Oral Daily fenofibrate 160 mg Oral Daily finasteride 5 mg Oral Daily furosemide 40 mg Oral Daily insulin glargine 10 Units Subcutaneous QAM lisinopril 40 mg Oral Daily magnesium oxide 400 mg Oral Daily metoprolol succinate 100 mg Oral Daily linagliptin 5 mg Oral Daily tamsulosin 0.8 mg Oral Daily vitamin E 400 Units Oral Daily insulin glargine 8 Units Subcutaneous Nightly insulin lispro 0-6 Units Subcutaneous TID WC insulin lispro 0-3 Units Subcutaneous Nightly albuterol 2.5 mg Nebulization Q4H [place] sodium chloride flush 10 mL Intravenous 2 times per day ziprasidone 20 mg Oral BID WC levofloxacin 750 mg Intravenous Q48H And piperacillin-tazobactam 3.375 g Intravenous Q8H Continuous Infusions: dextrose VITAL SIGNS: BP (!) 107/58 Pulse 77 Temp 97.9 F (36.6 C) (Oral) Resp 20 Ht 5' 10 (1.778 m) Wt 150 lb 9.2 oz (68.3 kg) SpO2 97% BMI 21.61 kg/m 3 L/min Admit Weight: 162 lb (73.5 kg) Last 3 weights: Wt Readings from Last 3 Encounters: 03/09/19 150 lb 9.2 oz (68.3 kg) 01/09/19 167 lb 4 oz (75.9 kg) 12/18/18 170 lb 2 oz (77.2 kg) BMI: Body mass index is 21.61 kg/m . INPUT/OUTPUT: Intake/Output Summary (Last 24 hours) at 03/09/2019 1732 Last data filed at 03/09/2019 1723 Gross per 24 hour Intake 100 ml Output 2100 ml Net -2000 ml EXAM: General appearance: awake and alert moves all ext Lungs: Wheezing Heart: S1 and S2 no murmur Abdomen: positive bowel sounds, no bruits, no masses Extremities: warm and dry, no cyanosis, no clubbing Principal Problem: Pneumonia Active Problems: SVT (supraventricular tachycardia) (HCC) Benign essential hypertension Uncontrolled type 2 diabetes mellitus without complication, with long-term current use of insulin (HCC) Atrial fibrillation (HCC) CHF with cardiomyopathy (HCC) Chronic diastolic heart failure, NYHA class 2 (HCC) CKD (chronic kidney disease) stage 3, GFR 30-59 ml/min (HCC) Mild pulmonary hypertension (HCC) Presence of Watchman left atrial appendage closure device Urinary retention due to benign prostatic hyperplasia Chronic blood loss anemia Resolved Problems: * No resolved hospital problems. * Assessment: 1. Atrial fibrillation, status post watchman device not on anticoagulation. 2. Admitted with confusion, was found to have pneumonia possible UTI Recommendations: Continue present therapy no need for antibiotic coagulation because of watchman device. I will sign off patient can be discharged from cardiac point of view This note was created with the assistance of a speech-recognition program. Although the intention is to generate a document that actually reflects the content of the visit, no guarantees can be provided that every mistake has been identified and corrected by editing. ANDREW DUNCAN MD [facility] * Dayan Ledbetter, PT - 03/09/2019 3:33 PM EDT Physical Therapy REVISED GOALS [facility] Date: 03/09/19 Patient Name: Juan Ramon Neville Room: Account: [id number] : 1935 (83 y.o.) Gender: male 03/09/19 1530 Short term goals Time Frame for Short term goals 3-5 treatments/ week- REVISED GOALS Short term goal 1 pt to tolerate 1/2 hour of therapuetic exercise and activity Short term goal 2 pt to complete LE ROM and strengthening exercises w/ cuing Short term goal 3 pt to follow directions accurately 50% to complete exercises and treatment Short term goal 4 pt to demonstrate rolling in bed w/ rail MOD I for position change Short term goal 5 pt to demonstrate transfers supine <> sit, sit <> stand and bed <> chair w/ SBA x 1 Short term goal 6 pt to demonstrate standing balance using w walker to fair + or better using w walker w/ SBA x 1 Short term goal 7 pt to demonstrate gait w/ w walker 50-80' w/ CGA x 1 * Megan Jackson, LUNCHROOM MOTHER - 03/09/2019 12:31 PM EDT Physical Therapy [facility] Physical Therapy Progress Note Date: 03/09/19 Patient Name: Juan Ramon Neville Room: Account: [id number] : 1935 (83 y.o.) Gender: male Discharge Recommendations ECF with PT Equipment Needed: (TBD? ) Referring Practitioner: Dr. Pastor Diagnosis: Pneumonia Restrictions/Precautions: Fall Risk(peripheral IV left wrist) Past Medical History: has a past medical history of Benign essential hypertension, Body mass index (BMI) 23 or greater, Diabetes mellitus type II, uncontrolled (HCC), Gallbladder disease, Hearing loss, Hyperlipidemia, Hypertension, Liver disease, Otitis externa, Renal insufficiency, and Type II or unspecified type diabetes mellitus without mention of complication, not stated as uncontrolled. Past Surgical History: has a past surgical history that includes Appendectomy; Cholecystectomy; hernia repair; Tonsillectomy; Colonoscopy (06/13/2018); and Colonoscopy (07/17/2018). Restrictions/Precautions Restrictions/Precautions: Fall Risk(peripheral IV left wrist) Required Braces or Orthoses?: No Subjective: Pt agreeable to PT at this time, denies pain, states he slept well and ate (ordered) too much for breakfast. Daughter states pt had been using O2 at [facility], walking with RW (had Rollator at home for 1 wk before pt developed PNA, admitted to [facility]); CHF is at point where fluid around lungs is normal/expected, better controlled since admission, with Lasix; blood sugars have been running high. Daughter states pt was Dx'd with UTI, which exacerbated his dementia. Pt states everything was (felt) screwed up yesterday. Comments: RN Anca OK'd tx, reports pt is more oriented today. O2, HR remained WNL throughout tx. Treated w/ LANA Knowles. Vital Signs Pulse: 102(after seated ex; remained in 100s throughout tx. ) Heart Rate Source: Monitor Patient Currently in Pain: Denies Oxygen Therapy SpO2: 98 % O2 Device: None (Room air) Patient Observation Observations: Pt sitting in bedside chair on entry, asked to remain there after for lunch. Pedroza, IV L forearm Bed Mobility: Bed Mobility Comment: Did not assess today; pt in bedside chair. Transfers: Sit to Stand: Contact guard assistance(RW; VCs/pt demo's good hand placement) Stand to sit: Contact guard assistance(RW; pt demo's good hand placement without cues) Stand Pivot transfer: CGA w/ RW Ambulation 1 Surface: level tile Device: Rolling Walker Other Apparatus: (IV) Assistance: Contact guard assistance Quality of Gait: Straight path, no LOB, steady. Moderate LONNY, good posture. Absent heel strike. Gait Deviations: Slow Tiffanie;Decreased step length Distance: 30' Comments: SpO2, HR WNL before, after amb. Stairs/Curb Stairs?: No Posture: Good Sitting - Static: Fair(EOC, UE support, no back support) Sitting - Dynamic: Fair(EOC, UE support, no back support) Standing - Static: Good(standing without UE support) Standing - Dynamic: Good;-;Fair;+(Able to withstand purturbations without UEs; single UE OOBOS) Exercises Comments: completed AROM bilateral LEs w/ cuing for technique Other exercises?: Yes Other exercises 1: Seated B LE ther ex, AROM/[place] resistance band, 15x each Other exercises 2: Standing tolerance, 3 min. w/RW Assessment Activity Tolerance: Patient Tolerated treatment well Body structures, Functions, Activity limitations: Decreased functional mobility ;Decreased endurance;Decreased cognition;Decreased safe awareness Discharge Recommendations: ECF with PT Type of devices: All fall risk precautions in place;Call light within reach;Patient at risk for falls;Nurse notified;Left in chair(SHUN March; daughter present on exit) Plan Times per week: 3-5 treatments/ week Times per day: (3-5 treatments/ week) Current Treatment Recommendations: Strengthening, Gait Training, Patient/Caregiver Education & Training, ROM, Balance Training, Functional Mobility Training, Transfer Training, Safety Education & Training Goals Short term goals Time Frame for Short term goals: 3-5 treatments/ week Short term goal 1: pt to tolerate 1/2 hour of therapuetic exercise and activity Short term goal 2: pt to complete LE ROM and strengthening exercises w/ cuing Short term goal 3: pt to follow directions accurately 50% to complete exercises and bed mobility Short term goal 4: pt to demonstrate rolling in bed w/ rail MOD I for position change Short term goal 5: pt to advance to transfers supine <> sit, sit <> stand and bed <> chair w/ min x 1- further assess mobility when ready Short term goal 6: pt to advance to standing balance using w walker to fair + or better using w walker w/ min x 1- further assess mobility when ready Short term goal 7: pt to advance to gait w/ w walker 20-30' w/ min x 1- further assess mobility when ready PT Individual Minutes Time In: 1059 Time Out: 1130 Minutes: 31 * Stephany Lagunas, OT - 03/09/2019 10:56 AM EDT [facility] Occupational Therapy Evaluation Date: 03/09/19 Patient Name: Juan Ramon Neville Room: Account: [id number] : 1935 (83 y.o.) Gender: male Discharge Recommendations: ECF with OT Referring Practitioner: Dr. Pastor Diagnosis: Pneumonia Treatment Diagnosis: Impaired self-care status. Past Medical History: has a past medical history of Benign essential hypertension, Body mass index (BMI) 23 or greater, Diabetes mellitus type II, uncontrolled (HCC), Gallbladder disease, Hearing loss, Hyperlipidemia, Hypertension, Liver disease, Otitis externa, Renal insufficiency, and Type II or unspecified type diabetes mellitus without mention of complication, not stated as uncontrolled. Past Surgical History: has a past surgical history that includes Appendectomy; Cholecystectomy; hernia repair; Tonsillectomy; Colonoscopy (06/13/2018); and Colonoscopy (07/17/2018). Restrictions Restrictions/Precautions: Fall Risk Required Braces or Orthoses?: No Vitals Temp: 97.3 F (36.3 C) Pulse: 91 Resp: 16 BP: (!) 142/68 Height: 5' 10 (177.8 cm) Weight: 150 lb 9.2 oz (68.3 kg) BMI (Calculated): 21.7 Oxygen Therapy SpO2: 97 % Pulse Oximeter Device Mode: Continuous O2 Device: None (Room air) O2 Flow Rate (L/min): 3 L/min Level of Consciousness: Alert Subjective Subjective: That's when it all went down Pt reports in mid-December he was admitted to SNF for therapy. Overall Orientation Status: Within Functional Limits Vision Vision: Impaired Vision Exceptions: Wears glasses for reading Hearing Hearing: Exceptions to WFL Hearing Exceptions: Hard of hearing/hearing concerns, Bilateral hearing aid(Pt's daughter brought in hearing aids) Social/Functional History Lives With: Family(states son and dtr) Type of Home: House Home Layout: One level Home Access: Ramped entrance Home Equipment: Rolling walker, Quad cane, Wheelchair-manual Receives Help From: Family ADL Assistance: Needs assistance(pt & dtr report SBA/SUP) Homemaking Assistance: Needs assistance(daughter is primary) Homemaking Responsibilities: Yes(states dtr is primary) Ambulation Assistance: Independent(uses RW) Transfer Assistance: Independent Active Manufacturing Helper: Yes Mode of Transportation: Car Occupation: Retired Additional Comments: Pt and Pt's daughter report that he has been at [facility] since Mid-December. Pt has been receiving PT/OT with emphasis on Pt's endurance. Pt's daughter reports the plan is to return to SNF for continued therapy. Objective Vision - Basic Assessment Prior Vision: Wears glasses only for reading Cognition Overall Cognitive Status: Impaired Following Directions: Follows one step commands Attention Span: Attends with cues to redirect Memory: Decreased short term memory, Decreased recall of recent events Following Commands: Follows one step commands with repetition Safety Judgement: Decreased awareness of need for assistance Awareness of Errors: Assistance required to identify errors made Insights: Decreased awareness of deficits Sequencing and Organization: Assistance required to identify errors made Perception Overall Perceptual Status: WFL Sensation Overall Sensation Status: WFL ADL Feeding: Setup Grooming: Supervision, Setup, Increased time to complete UE Bathing: Setup, Increased time to complete, Verbal cueing LE Bathing: Contact guard assistance, Setup, Verbal cueing, Increased time to complete UE Dressing: Supervision, Setup, Verbal cueing, Increased time to complete LE Dressing: Contact guard assistance, Setup, Verbal cueing, Increased time to complete Toileting: Contact guard assistance, Setup, Increased time to complete Additional Comments: VCs required due to Pt's cognition. CGA for all dynamic standing balance tasks. ADL scores based on skilled observations and clinical reasoning unless otherwise noted. UE Function LUE Strength Gross LUE Strength: WF L Hand General: 4+/5 LUE Strength Comment: Shoulder 4+/5, elbow 4+/5 LUE Tone: Normotonic LUE AROM (degrees) LUE AROM : WFL Left Hand AROM (degrees) Left Hand AROM: WFL RUE Strength Gross RUE Strength: WF R Hand General: 4+/5 RUE Strength Comment: Shoulder 4+/5, elbow 4+/5 RUE Tone: Normotonic RUE AROM (degrees) RUE AROM : WFL Right Hand AROM (degrees) Right Hand AROM: WFL Fine Motor Skills Coordination Movements Are Fluid And Coordinated: No Coordination and Movement description: Left UE, Right UE, Decreased speed, Decreased accuracy, Finemotor impairments Mobility Supine to Sit: Supervision Balance Sitting Balance: Supervision Standing Balance: Contact guard assistance Standing Balance Time: 2-3 minutes Activity: mobility in room and hallway Comment: no LOB noted; VCs for safety Functional Mobility Functional - Mobility Device: Rolling Walker Activity: Other(short distance in room) Assist Level: Contact guard assistance Functional Mobility Comments: VCs for pacing and safety w/ line management Bed mobility Rolling to Left: Supervision Rolling to Right: Supervision Supine to Sit: Supervision Scooting: Supervision Comment: Pt seated in chair at end of session. RN notified and Pt's daughter present. Transfers Sit to stand: Contact guard assistance Stand to sit: Contact guard assistance Functional Activity Tolerance Functional Activity Tolerance: Tolerates 10 - 20 min exercise with multiple rests Assessment Performance deficits / Impairments: Decreased functional mobility , Decreased ADL status, Decreasedsafe awareness, Decreased cognition, Decreased endurance, Decreased balance Treatment Diagnosis: Impaired self-care status. Prognosis: Good Decision Making: Medium Complexity History: moderate chart review Exam: 6 performance deficits Assistance / Modification: min assist REQUIRES OT FOLLOW UP: Yes Discharge Recommendations: ECF with OT Activity Tolerance: Patient Tolerated treatment well Functional Outcome Measures AM-PAC Daily Activity Inpatient How much help for putting on and taking off regular lower body clothing?: A Little How much help for Bathing?: A Little How much help for Toileting?: A Little How much help for putting on and taking off regular upper body clothing?: A Little How much help for taking care of personal grooming?: A Little How much help for eating meals?: A Little AM-PAC Inpatient Daily Activity Raw Score: 18 AM-PAC Inpatient ADL T-Scale Score : 38.66 ADL Inpatient CMS 0-100% Score: 46.65 ADL Inpatient [facility] G-Code Modifier : CK Goals Patient Goals Patient goals : To d/c to SNF for continued therapy Short term goals Time Frame for Short term goals: By discharge Short term goal 1: Pt will actively participate in 15+ minutes of self-care with 1-2 VCs for initiation, pacing, and safety. Short term goal 2: Pt will actively participate in 15-20 minutes of therapeutic exercise/functionalactivities to promote increased IND with self-care and mobility. Short term goal 3: Pt will stand for 4+ minutes with 0-1 UE support, CGA, and no LOB while engagingfunctional activity of choice. Short term goal 4: Pt will V/D Good understanding of AE/DME/modified techniques for increased IND with self-care and mobility. Plan Safety Devices Safety Devices in place: Yes Type of devices: Call light within reach, Gait belt, Patient at risk for falls, Left in chair, Nurse notified(daughter present in room) Plan Times per week: 3-5 Times per day: Daily Current Treatment Recommendations: Self-Care / ADL, Strengthening, Balance Training, Functional Mobility Training, Safety Education & Training, Patient/Caregiver Education & Training, Equipment Evaluation, Education, & procurement, Positioning OT Individual Minutes Time In: 1007 Time Out: 1026 Minutes: 19 * Guru Arriaga MD - 03/09/2019 8:54 AM EDT PULMONARY PROGRESS NOTE: REASON FOR VISIT: pneumonia Interval History: Shortness of Breath: no Cough: no Sputum: no Hemoptysis: no Chest Pain: no Fever: no Swelling Feet: no Headache: no Nausea, Emesis, Abdominal Pain: no Diarrhea: no Constipation: no Events since last visit: none PAST MEDICAL HISTORY: Scheduled Meds: atorvastatin 40 mg Oral Daily diltiazem 240 mg Oral Daily digoxin 125 mcg Oral Daily fenofibrate 160 mg Oral Daily finasteride 5 mg Oral Daily furosemide 40 mg Oral Daily insulin glargine 10 Units Subcutaneous QAM lisinopril 40 mg Oral Daily magnesium oxide 400 mg Oral Daily metoprolol succinate 100 mg Oral Daily linagliptin 5 mg Oral Daily tamsulosin 0.8 mg Oral Daily vitamin E 400 Units Oral Daily insulin glargine 8 Units Subcutaneous Nightly insulin lispro 0-6 Units Subcutaneous TID insulin lispro 0-3 Units Subcutaneous Nightly albuterol 2.[address] sodium chloride flush 10 mL Intravenous 2 times per day ziprasidone 20 mg Oral BID WC levofloxacin 750 mg Intravenous Q48H And piperacillin-tazobactam 3.375 g Intravenous Q8H Continuous Infusions: dextrose PRN Meds:glucose, dextrose, glucagon (rDNA), dextrose, sodium chloride flush, magnesium hydroxide, ondansetron, acetaminophen PHYSICAL EXAMINATION: BP (!) 142/68 Pulse 91 Temp 97.3 F (36.3 C) (Oral) Resp 16 Ht 5' 10 (1.778 m) Wt 150 lb 9.2 oz (68.3 kg) SpO2 97% BMI 21.61 kg/m General : Awake, alert, Neck supple, no lymphadenopathy, JVD not raised Heart regular rhythm, S1 and S2 normal; no additional sounds heard Lungs Air Entry- fair bilaterally; breath sounds : vesicular; rales/crackles - absent Abdomen soft, no tenderness Upper Extremities - no cyanosis, mottling; edema : absent Lower Extremities: no cyanosis, mottling; edema : absent Current Laboratory, Radiologic, Microbiologic, and Diagnostic studies reviewed Data ReviewCBC: Recent Labs 03/07/19 1705 WBC 10.3 RBC 4.68 HGB 10.5* HCT 33.5* PLT 273 BMP: Recent Labs 03/07/19 1705 03/07/19 1851 03/08/19 0626 03/09/19 0741 GLUCOSE 63* 124 75 119* NA 138 -- 139 137 K 4.6 -- 4.6 4.4 BUN 30* -- 27* 22 CREATININE 1.70* -- 1.57* 1.54* CALCIUM 9.5 -- 9.3 10.0 ABGs: No results for input(s): PHART, PO2ART, OPE8IAT, KLU0NJW, BEART, T5MKLECD, TMJ7QGL in the last 72 hours. PT/INR: No results found for: PTINR ASSESSMENT / PLAN: CHF - stable - per cardiology Suspected UTI - ABx - GM - rods; ID/susceptibility pending ? Pneumonia - atelectasis on CXR Hx pl effusion - thoracentesis x 2 in last 3 months Confusion/ encephalopathy/ dementia - close to baseline * Talia Pastor MD - 03/09/2019 8:27 AM EDT Juan Ramon Neville is a 83 y.o. male patient. Current Facility-Administered Medications Medication Dose Route Frequency Provider Last Rate Last Dose atorvastatin (LIPITOR) tablet 40 mg 40 mg Oral Daily Talia Pastor MD 40 mg at 03/08/19 0825 diltiazem (CARDIZEM CD) extended release capsule 240 mg 240 mg Oral Daily Talia Pastor MD 240 mg at 03/08/19 08 digoxin (LANOXIN) tablet 125 mcg 125 mcg Oral Daily Talia Pastor MD 125 mcg at 03/08/19 0825 fenofibrate tablet 160 mg 160 mg Oral Daily Talia Pastor MD 160 mg at 03/08/19 0825 finasteride (PROSCAR) tablet 5 mg 5 mg Oral Daily Talia Pastor MD 5 mg at 03/08/19 08 furosemide (LASIX) tablet 40 mg 40 mg Oral Daily Talia Pastor MD 40 mg at 03/08/19 0825 insulin glargine (LANTUS) injection vial 10 Units 10 Units Subcutaneous QAM Talia Pastor MD10 Units at 03/08/19 08 lisinopril (PRINIVIL;ZESTRIL) tablet 40 mg 40 mg Oral Daily Talia Patsor MD 40 mg at 03/08/19 0825 magnesium oxide (MAG-OX) tablet 400 mg 400 mg Oral Daily Talia Pastor MD 400 mg at 825 metoprolol succinate (TOPROL XL) extended release tablet 100 mg 100 mg Oral Daily Talia Pastor MD 100 mg at 03/08/19 1126 linagliptin (TRADJENTA) tablet 5 mg 5 mg Oral Daily Talia Pastor MD 5 mg at 03/08/19 0825 tamsulosin (FLOMAX) capsule 0.8 mg 0.8 mg Oral Daily Talia Pastor MD 0.8 mg at 03/08/19 0825 vitamin E capsule 400 Units 400 Units Oral Daily Talia Pastor MD 400 Units at 03/08/19 1126 insulin glargine (LANTUS) injection vial 8 Units 8 Units Subcutaneous Nightly Talia Pastor MD 8 Units at 03/08/19 2144 glucose (GLUTOSE) 40 % oral gel 15 g 15 g Oral PRN Talia Pastor MD dextrose 50 % IV solution 12.5 g Intravenous PRN Talia Pastor MD glucagon (rDNA) injection 1 mg 1 mg Intramuscular PRN Talia Pastor MD dextrose 5 % solution 100 mL/hr Intravenous PRN Talia Pastor MD insulin lispro (HUMALOG) injection vial 0-6 Units 0-6 Units Subcutaneous TID Talia Pastor MD 4 Units at 03/08/19 1128 insulin lispro (HUMALOG) injection vial 0-3 Units 0-3 Units Subcutaneous Nightly Talia Pastor MD 1 Units at 03/08/19 2145 albuterol (PROVENTIL) nebulizer solution 2.5 mg 2.[address] Talia Pastor MD 2.5 mg at 03/09/19 0713 sodium chloride flush 0.9 % injection 10 mL 10 mL Intravenous 2 times per day Talia Pastor MD sodium chloride flush 0.9 % injection 10 mL 10 mL Intravenous PRN Talia Pastor MD magnesium hydroxide (MILK OF MAGNESIA) 400 MG/5ML suspension 30 mL 30 mL Oral Daily PRN Talia Pastor MD ondansetron (ZOFRAN) injection 4 mg 4 mg Intravenous Q6H PRN Talia Pastor MD 4 mg at 03/08/19 1338 acetaminophen (TYLENOL) tablet 650 mg 650 mg Oral Q4H PRN Talia Pastor MD 650 mg at 03/08/19 1227 ziprasidone (GEODON) capsule 20 mg 20 mg Oral BID Talia Pastor MD 20 mg at 03/08/19 1822 levofloxacin (LEVAQUIN) 750 MG/150ML infusion 750 mg 750 mg Intravenous Q48H Talia Pastor MD Stopped at 03/08/19 0059 And piperacillin-tazobactam (ZOSYN) 3.375 g in dextrose 5 % 50 mL IVPB extended infusion (mini-bag) 3.375 g Intravenous Q8H Talia Pastor MD 12.5 mL/hr at 03/09/19 0556 3.375 g at 03/09/19 0556 Allergies Allergen Reactions Diphenhydramine Hcl Principal Problem: Pneumonia Active Problems: SVT (supraventricular tachycardia) (HCC) Benign essential hypertension Uncontrolled type 2 diabetes mellitus without complication, with long-term current use of insulin (HCC) Atrial fibrillation (HCC) CHF with cardiomyopathy (HCC) Chronic diastolic heart failure, NYHA class 2 (HCC) CKD (chronic kidney disease) stage 3, GFR 30-59 ml/min (HCC) Mild pulmonary hypertension (HCC) Presence of Watchman left atrial appendage closure device Urinary retention due to benign prostatic hyperplasia Chronic blood loss anemia Resolved Problems: * No resolved hospital problems. * Blood pressure (!) 142/68, pulse 91, temperature 97.3 F (36.3 C), temperature source Oral, resp. rate 16, height 5' 10 (1.778 m), weight 150 lb 9.2 oz (68.3 kg), SpO2 97 %. Subjective: Symptoms: (Urinary retention pain this morning; pedroza flushed and manipulated and return obtained. Mental status at baseline. ). Diet: Adequate intake. Activity level: Impaired due to weakness. Pain: He reports no pain. Objective: General Appearance: Comfortable. Vital signs: (most recent): Blood pressure (!) 142/68, pulse 91, temperature 97.3 F (36.3 C), temperature source Oral, resp. rate 16, height 5' 10 (1.778 m), weight 150 lb 9.2 oz (68.3 kg), SpO2 97 %. Vital signs are normal. Lungs: Normal effort and normal respiratory rate. Breath sounds clear to auscultation. Heart: Normal rate. Regular rhythm. S1 normal and S2 normal. Assessment & Plan UTI - Zosyn/Levaquin ?Pnemonia - per pulmonology Change abx per urine culture results D/c tomorrow if other services agree. Talia Pastor MD 03/09/2019 * Chelsy El LSW - 03/08/2019 2:48 PM EDT SW spoke to Crystal from [facility] She will start the pre-cert for pt's return to facility. * Dayan Ledbetter, PT - 03/08/2019 9:39 AM EDT Physical Therapy Facility/Department: [facility] MED SURG Initial Assessment NAME: Juan Ramon Neville : 1935 Date of Service: 03/08/2019 Discharge Recommendations: ECF with PT PT Equipment Recommendations Equipment Needed: (TBD? ) Assessment Body structures, Functions, Activity limitations: Decreased functional mobility ;Decreased endurance;Decreased cognition;Decreased safe awareness Assessment: continue per POC to maxmize potential, will need transfers and gait assessed when pt ismore cooperative- currently confused and agitated Treatment Diagnosis: impaired mobility Specific instructions for Next Treatment: 03-08-19 ECF w/ PT- rolling either direction w/ supervision using rail, nurse Cavazos deferred OOB due to confusion & yelling, further assess mobility when ready Prognosis: Fair Decision Making: Medium Complexity History: admitted due abdominal bloating, distention and confusion Exam: ROM, MMT, bed mobility Clinical Presentation: rolling either direction w/ supervision using rail, nurse Cavazos deferred OOB due to confusion & yelling, further assess mobility when ready PT Education: Goals;PT Role;Plan of Care Barriers to Learning: confusion REQUIRES PT FOLLOW UP: Yes Activity Tolerance Activity Tolerance: Patient limited by cognitive status;Treatment limited secondary to agitation Patient Diagnosis(es): The primary encounter diagnosis was VANESA (acute kidney injury) (HCC). Diagnoses of Pneumonia due to organism and Acute cystitis without hematuria were also pertinent to this visit. has a past medical history of Benign essential hypertension, Body mass index (BMI) 23 or greater, Diabetes mellitus type II, uncontrolled (HCC), Gallbladder disease, Hearing loss, Hyperlipidemia, Hypertension, Liver disease, Otitis externa, Renal insufficiency, and Type II or unspecified type diabetes mellitus without mention of complication, not stated as uncontrolled. has a past surgical history that includes Appendectomy; Cholecystectomy; hernia repair; Tonsillectomy; Colonoscopy (06/13/2018); and Colonoscopy (07/17/2018). Restrictions Restrictions/Precautions Restrictions/Precautions: Fall Risk(O2 at 3 L, peripheral IV right wrist, troponins 29 on 03-07-19) Required Braces or Orthoses?: No Vision/Hearing Vision: Impaired Vision Exceptions: Wears glasses for reading Hearing: Exceptions to WFL Hearing Exceptions: Hard of hearing/hearing concerns;Bilateral hearing aid(hearing aid batteries are - dtr to bring in more) Subjective General Patient assessed for rehabilitation services?: Yes Response To Previous Treatment: Not applicable Family / Caregiver Present: No Referring Practitioner: Dr. Keith Pastor Referral Date : 03/07/19 Diagnosis: pneumonia, VANESA, acute cystitis w/o hematuria Follows Commands: Impaired(hx dementia) Other (Comment): OK per nurse Cavazos for bedside evaluation only- pt is very confused this a.m. General Comment Comments: per chart, pt was admitted due to C/O abdominal distention, SOB and increased confusion. Subjective Subjective: Pt very anxious, screaming and focused on asking if dtr was called and if she is bringing hearing aid batteries- asked this question to therapist at least 20 times throughout PT evaluation. Therapist spoke to nurse Cavazos who has notified dtr who will bring hearing aid batteries. Pain Screening Patient Currently in Pain: Denies Vital Signs Patient Currently in Pain: Denies Orientation Orientation Overall Orientation Status: Impaired(hx dementia) Orientation Level: Disoriented to person;Disoriented to situation;Disoriented to time;Disoriented to place Social/Functional History Social/Functional History Lives With: Family(states son and dtr) Type of Home: House Home Layout: One level Home Access: Ramped entrance Home Equipment: Rolling walker, Quad cane, Wheelchair-manual ADL Assistance: Needs assistance(needs assist dressing) Homemaking Assistance: Needs assistance(states dtr is primary) Homemaking Responsibilities: Yes(states dtr is primary) Ambulation Assistance: Independent(states he uses w walker- up independently) Transfer Assistance: Independent Active Manufacturing Helper: Yes Mode of Transportation: Car Occupation: Retired Additional Comments: pt is a poor historian- ? reliability of above information- no family present to verify information, nurse Cavazos reports that the patient is from a facility Cognition Objective Observation/Palpation Observation: O2 at 3 L, peripheral IV right wrist AROM RLE (degrees) RLE AROM: WFL AROM LLE (degrees) LLE AROM : WFL AROM RUE (degrees) RUE General AROM: see OT for UE assessment AROM LUE (degrees) LUE General AROM: see OT for UE assessment Strength RLE Comment: grossly 3+/5 Strength LLE Comment: grossly 3+/5 Strength RUE Comment: see OT for UE assessment Strength LUE Comment: see OT for UE assessment Sensation Overall Sensation Status: WFL(denies) Bed mobility Bridging: Supervision Rolling to Left: Supervision(used rail, HOB slightly elevated) Rolling to Right: Supervision(used rail, HOB slightly elevated) Comment: deferred dangling at the EOB due to confusion, OK for bedside evaluation only Transfers Comment: deferred dangling at the OOB due to confusion, OK for bedside evaluation only Ambulation Ambulation?: No(deferred dangling at the OOB due to confusion, OK for bedside evaluation only) Stairs/Curb Stairs?: No Exercises Comments: completed AROM bilateral LEs w/ cuing for technique Plan Plan Times per week: 3-5 treatments/ week Times per day: (3-5 treatments/ week) Specific instructions for Next Treatment: 03-08-19 ECF w/ PT- rolling either direction w/ supervision using rail, nurse Cavazos deferred OOB due to confusion & yelling, further assess mobility when ready Current Treatment Recommendations: Strengthening, Gait Training, Patient/Caregiver Education & Training, ROM, Balance Training, Functional Mobility Training, Transfer Training, Safety Education & Training Safety Devices Type of devices: All fall risk precautions in place, Bed alarm in place, Call light within reach, Patient at risk for falls, Left in bed, Nurse notified(nurse Cavazos) G-Code OutComes Score AM-PAC Score AM-PAC Inpatient Mobility Raw Score : 8 (03/08/19849) AM-PAC Inpatient T-Scale Score : 28.52 (03/08/19849) Mobility Inpatient CMS 0-100% Score: 86.62 (03/08/19849) Mobility Inpatient [facility] G-Code Modifier : CM (03/08/19849) Goals Short term goals Time Frame for Short term goals: 3-5 treatments/ week Short term goal 1: pt to tolerate 1/2 hour of therapuetic exercise and activity Short term goal 2: pt to complete LE ROM and strengthening exercises w/ cuing Short term goal 3: pt to follow directions accurately 50% to complete exercises and bed mobility Short term goal 4: pt to demonstrate rolling in bed w/ rail MOD I for position change Short term goal 5: pt to advance to transfers supine <> sit, sit <> stand and bed <> chair w/ min x 1- further assess mobility when ready Short term goal 6: pt to advance to standing balance using w walker to fair + or better using w walker w/ min x 1- further assess mobility when ready Short term goal 7: pt to advance to gait w/ w walker 20-30' w/ min x 1- further assess mobility when ready Patient Goals Patient goals : return home Therapy Time Individual Concurrent Group Co-treatment Time In 0850 Time Out 09 Minutes 32 Timed Code Treatment Minutes: 12 Minutes Dayan Ledbetter, PT * Xu Grimes RCP - 03/08/2019 7:17 AM EDT Found patient on Room Air. Pulse Ox reading of 98% Patient complained of SOB. Placed on Cannula at 3.0 lpm RN informed. * Bradford Lagunas RN - 03/07/2019 11:35 PM EDT Spoke with Dr. Rosado, plan to see in the morning no new orders at this time. * Bradford Lagunas, SHUN - 03/07/2019 9:25 PM EDT Patient arived to room 3 from ER, bed left in lowest, locked positing with call light with in reach, no distress noted at this time * [facility] - 03/07/2019 8:49 PM EDT Medication History completed: New medications: acetaminophen, doxazosin, guaifenesin Er, potassium chloride packets Medications discontinued: digoxin, fenofibrate, tamsulosin Changes to dosing: Atorvastatin changed to nightly Diltiazem changed to 60 mg 4 times daily Furosemide changed to 40 mg 3 times daily Novolog changed to 6 units with breakfast, 8 units with lunch, and 4 units with dinner Toujeo changed to 18 units in the morning and 13 units at night Lisinopril changed to 30 mg daily - hold for SBP <110 Stated allergies: As listed Other pertinent information: Medications confirmed with facility list. Thank you, Michelle Mei PharmD, [facility] [phone] documented in this encounter* Michelle Mei RPH - 03/27/2019 6:32 PM EDT Medication History completed: New medications: none Medications discontinued: none Changes to dosing: Fenofibrate changed to nightly Furosemide changed to twice daily Potassium chloride changed to ER tablet formulation Stated allergies: As listed Other pertinent information: Medications confirmed with facility list. Thank you, Michelle Mei PharmD, [facility] [phone] documented in this encounter Assessments Diagnosis Pneumonia- Primary Pneumonia, organism unspecified VANESA (acute kidney injury) ([facility]) Acute kidney failure, unspecified Pneumonia due to organism Pneumonia due to other specified organism Acute cystitis without hematuria Acute cystitis Atrial fibrillation (HCC) Atrial fibrillation Benign essential hypertension Essential hypertension, benign Chronic diastolic heart failure, NYHA class 2 (HCC) Chronic diastolic heart failure CKD (chronic kidney disease) stage 3, GFR 30-59 ml/min ([facility]) Chronic kidney disease, Stage III (moderate) CHF with cardiomyopathy (HCC) Congestive heart failure, unspecified 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 Mild pulmonary hypertension (HCC) Other chronic pulmonary heart diseases SVT (supraventricular tachycardia) (HCC) Other specified cardiac dysrhythmias Uncontrolled type 2 diabetes mellitus without complication, with long-term current use of insulin (HCC) Urinary retention due to benign prostatic hyperplasia Diagnosis Acute kidney injury (HCC)- Primary Acute kidney failure, unspecified Diagnosis Acute urinary retention- Primary Other specified retention of urine Advance Directives Documents on File Type Date Recorded Patient Communication Analyst Expl anation Advance Directives and Livin g Will 03/07/2018 9:31 AM [facility] Advance Directives and Livin g Will 01/09/2015 10:42 AM Power of A/C Tech Power of A/C Tech 01/09/2015 10:42 AM Latest Code Status on File Code Status Date Activated Date Inactivated Comments DNR-CC 03/07/2019 9:22 PM DNR-CC 03/07/2019 8:19 PM 03/07/2019 9:22 PM Full Code 12/10/2018 6:54 PM 12/13/2018 3:28 PM Full Code 01/06/2015 4:30 PM 01/08/2015 6:57 PM Latest Code Status on File Code Status Date Activated Date Inactivated Comments DNR-CC 03/07/2019 9:22 PM 03/13/2019 6:42 PM Summary Purpose Family History No Family History Records Found Additional Source Comments Reason for Visit (unrecogniz ed section and content) Reason Comments Bloated Status Reason Specialty Diagnoses / Procedures Referre d By Contact Referred To Contact Diagnoses Pneumonia Talia Pastor MD [address] [phone] [facility] Reason Comments Abnormal Lab Creatinine: 2.83 Reason Comments Urinary Retention (unrecognized sect ion and content) No Status Records Found INFORMATION SOURCE (unrecogn ized section and content) DATE CREATED AUTHOR 03/28/2019 [facility] FOR RECORDS PERTAINING TO PATIENTS WHO ARE OR HAVE BEEN ENROLLED IN A CHEMICAL DEPENDENCY/SUBSTANCEABUSE PROGRAM, SOME INFORMATION MAY BE OMITTED. This clinical summary was aggregated from multiple sources. Caution should be exercised in using it in the provision of clinical care. This summary normalizes information from multiple sources, and as a consequence, information in this document may materially change the coding, format and clinical context of patient data. In addition, data may be omitted in some cases. CLINICAL DECISIONS SHOULD BE BASED ON THE PRIMARY CLINICAL RECORDS. [facility] [employer] [facility]. provides no warranty or guarantee of the accuracy or completeness of information in this document.
== END 2023-07-29 01:53 | disposition home or self-care (01) ==
LOC: LAB 01:52
PROVIDERS: Visit Provider Family Medicine
DX: I50.32 Chronic diastolic (congestive) heart failure (principal)
CPT/HCPCS: 36415; 83880

== ENCOUNTER 2023-08-01 01:51 | Outpatient (REF) | payer MEDICARE, SELFPAY ==
--- OUTSIDE RECORDS SUMMARY | 2023-08-01 01:56 | XMS_ITS | CCD ---
Author Name Unknown Address [address] [place] [address] Organization [facility] Care Team Providers Care Supervisor [facility] Name Role Phone Dawit Talia Stipe Primary Care Provider SHARIFA MENON [...] STIPE Primary Care Unavailable DA BAINS-LEOBARDO STEVENS Referring Unavaila ble PASTOR, TALIA STIPE Primary Care Unavailable DA HERSON-LEOBARDO STEVENS Attending Unavaila ble DA BAINS-LEOBARDO STEVENS [...] Care Unavailable PASTOR, TALIA STIPE Consulting Unavailable TALIA PASTOR Admitting Unavailable TALIA PASTOR Attending Unavailable ANDREW DUNCAN Consulting Unavailable GURU ARRIAGA Consulting Unavailable JAVIER DEVRIES Attending Unavailable TALIA PASTOR Primary Care Unavailable TALIA PASTOR Primary Care Unavailable JOSH HESS Attending Unavailable TALIA PASTOR Consulting Unavailable Allergies Allergy Classification Reported Allergen(s) Allergy Type Date of Onset Reaction(s) Facility (3 sources) diphenhydrAMINE Drug Allergy 04-19-2012 [facility], [place] Medications Current Medications Medication Drug Class(es) Dates Sig (Normalized) Sig (Original) acetaminophen 325 mg oral tablet (4 sources) Start: 03-07-2019 650 mg, Oral, EVERY 4 HOURS PRN, Pain Mild (1-3), Fever, For temp greater than 100.5 F (38 C), Starting 03/07/19 at 2122 Maximum dose of acetaminophen is 4000 mg from all sources in 24 hours. take [address] [facility] every four hours as needed for fever [...] mg, Oral, DAILY, First dose on Jenn 19 at 0900 Do not crush or break. [...] units am, 8 units bedtime 3 pen 01/20/2018 03/07/2019 Discontinued (DOSE ADJUSTMENT) insulin glargine [...] Care, After every IV line use, Starting 9/11/19 at 2122 tamsulosin hydrochloride 0.4 mg oral capsule (5 [...] Results Test Name Value Interpretation Reference Range [facility] Basic Metabolic Panelon 10-0 Anion gap [Moles/Vol] 13 mmol/L 9 - 17 mmol/L [place] Bun/Cre Ratio NOT REPORTED [place] Calcium [Mass/Vol] 9.3 mg/dL 8.6 - 10. 4 mg/dL [place] Chloride [Moles/Vol] 99 mmol/L 98 - 107 mmol/L [place] CO2 [Moles/Vol] 24 mmol/L 20 - 31 mmol/L [place] Creatinine [Mass/Vol] 2.75 mg/dL High 0.7 - 1.2 mg/dL [place] GFR 27 mL/min Low >60 [place] GFR Non- 22 mL/min Low >60 [place] GFR/1.73 sq M predicted among non-blacks MDRD (S/P/Bld) [Vol rate/Area] NOT REPORTED [place] GFR/1.73 sq M predicted among non-blacks MDRD (S/P/Bld) [Vol rate/Area] [place] Comment on above: Average GFR for 70 o r more years old: 75 mL/min/1.73sq m Chronic Kidney Disease: <60 mL/min/1.73sq m Kidney failure: <15 mL/min/1.73sq m eGFR calculated using average adult body mass. Additional eGFR calculator available at: http://www.Limeade/multiple_crcl_2012.htm Glucose [Mass/Vol] 92 mg/dL 70 - 99 mg/dL [place] Interpretation and review of laboratory results Abnormal [place] Potassium [Moles/Vol] 5.2 mmol/L 3.7 - 5.3 mmol/L [place] Sodium [Moles/Vol] 136 mmol/L 135 - 144 mmol/L [place] Urea nitrogen [Mass/Vol] 61 mg/dL High 8 - 23 mg/dL [place] Basic Metabolic Profon 03-27 (cont.) Normal [facility] Comment on above: Result Comment: Aver age GFR for 70 or more years old: 75 mL/min/1.73sq m Chronic Kidney Disease: <60 mL/min/1.73sq m Kidney failure: <15 mL/min/1.73sq m eGFR calculated using average adult body mass. Additional eGFR calculator available at: http://www.Limeade/multiple_crcl_2012.htm Performed By: #### H H, BMP #### [facility] [address] [place] [address] Seam Checker: Con Oseguera MD Anion gap [Moles/Vol] 13 mmol/L Normal 9-17 [facility] Comment on above: Performed By: #### H H, BMP #### [facility] [address] [place] [address] Seam Checker: Con Oseguera MD Calcium [Mass/Vol] 9.3 mg/dL Normal 8.6-10.4 [facility] Comment on above: Performed By: #### H H, BMP #### [facility] [address] [place] [address] Seam Checker: Con Oseguera MD Chloride [Moles/Vol] 99 mmol/L Normal 98-107 [facility] Comment on above: Performed By: #### H H, BMP #### [facility] [address] [place] [address] Seam Checker: Con Oseguera MD CO2 [Moles/Vol] 24 mmol/L Normal 20-31 [facility] Comment on above: Performed By: #### H H, BMP #### [facility] [address] [place] [address] Seam Checker: Con Oseguera MD Creatinine [Mass/Vol] 2.75 mg/dL High 0.70-1.20 [facility] Comment on above: Performed By: #### H H, BMP #### [facility] [address] [place] [address] Seam Checker: Con Oseguera MD GFR, Amer 27 mL/min Low >60 [facility] Comment on above: Performed By: #### H H, BMP #### [facility] [address] [place] [address] Seam Checker: Con Oseguera MD GFR,non Amer 22 mL/min Low >60 [facility] Comment on above: Performed By: #### H H, BMP #### [facility] [address] [place] [address] Seam Checker: Con Oseguera MD Glucose [Mass/Vol] 92 mg/dL Normal 70-99 [facility] Comment on above: Performed By: #### H H, BMP #### [facility] [address] [place] [address] Seam Checker: Con Oseguera MD Potassium [Moles/Vol] 5.2 mmol/L Normal 3.7-5.3 [facility] Comment on above: Performed By: #### H H, BMP #### [facility] [address] [place] [address] Seam Checker: Con Oseguera MD Sodium [Moles/Vol] 136 mmol/L Normal 135-144 [facility] Comment on above: Performed By: #### H H, BMP #### [facility] [address] [place] [address] Seam Checker: Con Oseguera MD Urea nitrogen [Mass/Vol] 61 mg/dL High 8-23 [facility] Comment on above: Performed By: #### H H, BMP #### [facility] [address] [place] [address] Seam Checker: Con Oseguera MD BUN/CRE Ratio NOT REPORTED Normal 9-20 [facility] Comment on above: Performed By: #### H H, BMP #### [facility] [address] [place] [address] Seam Checker: Con Oseguera MD Staging: NOT REPORTED Normal [facility] Comment on above: Performed By: #### H H, BMP #### [facility] [address] [place] [address] Seam Checker: Con Oseguera MD CBC Auto Differentialon 10-0 Basophils (Bld) [#/Vol] 0.08 10*3/uL [facility], [place] Basophils/100 WBC (Bld) 1 % 0 - 2 % [facility], [place] Differential Type NOT REPORTED [facility] Eosinophils (Bld) [#/Vol] 0.39 10*3/uL [facility], [place] Eosinophils/100 WBC (Bld) 5 % High 0 - 4 % [facility] [place], [place] Erythrocyte distribution width (RBC) [Ratio] 28.8 % High 11.5 - 14.9 % [place] Hematocrit (Bld) [Volume fraction] 33.5 % Low 41 - 53 % [place] Hemoglobin (Bld) [Mass/Vol] 10.5 g/dL Low 13.5 - 17.5 g/dL [place] Interpretation and review of laboratory results Abnormal [place] Lymphocytes (Bld) [#/Vol] 2.00 10*3/uL [place] Lymphocytes/100 WBC (Bld) 26 % 24 - 44 % [place] MCH (RBC) [Entitic mass] 23.6 pg Low 26 - 34 pg [place] MCHC (RBC) [Mass/Vol] 31.3 g/dL 31 - 37 g/dL [place] MCV (RBC) [Entitic vol] 75.4 fL Low 80 - 100 fL [place] Monocytes (Bld) [#/Vol] 0.69 10*3/uL [place] Monocytes/100 WBC (Bld) 9 % High 1 - 7 % [place] Morphology Theo (Bld) [Interp] 1+ ELLIPTOCYTES [place] Morphology Theo (Bld) [Interp] 1+ ECHINOCYTES [place] Morphology Theo (Bld) [Interp] ANISOCYTOSIS PRESENT [place] Platelet mean volume (Bld) [Entitic vol] 8.9 fL 6 - 12 fL [place] Platelets (Bld) [#/Vol] NOT REPORTED [place] Platelets (Bld) [#/Vol] 305 10*3/uL [place] RBC (Bld) [#/Vol] 4.44 10*6/uL Low 4.5 - 5.9 m/uL [place] RBC morphology finding Nom (Bld) NOT REPORTED [place] Segmented neutrophils/100 WBC (Bld) 59 % 36 - 66 % [place] Segs Absolute 4.54 [place] WBC (Bld) [#/Vol] NOT REPORTED per 100 WBC [place] WBC (Bld) [#/Vol] 7.7 10*3/uL [place] WBC Morphology NOT REPORTED [place], [place] CBC with Diffon 03-27-2019 Abs. Basophil 0.08 k/uL Normal 0.0-0.2 [facility] Comment on above: Performed By: #### H H, BMP #### [facility] [address] [place] [address] Seam Checker: Con Oseguera MD Abs.Neutrophil (Seg) 4.54 k/uL Normal 1.3-9.1 [facility] Comment on above: Performed By: #### H H, BMP #### [facility] [address] [place] [address] Seam Checker: Con Oseguera MD Basophils/100 WBC (Bld) 1 % Normal 0-2 [facility] Comment on above: Performed By: #### H H, BMP #### [facility] [address] [place] [address] Seam Checker: Con Oseguera MD Eosinophils (Bld) [#/Vol] 0.39 10*3/uL Normal 0.0-0.4 [facility] Comment on above: Performed By: #### H H, BMP #### [facility] [place] [address] Seam Checker: oCn Oseguera MD Eosinophils/100 WBC (Bld) 5 % High 0-4 [facility] Comment on above: Performed By: #### H H, BMP #### [facility] [place] [address] Seam Checker: Con Oseguera MD Lymphocytes (Bld) [#/Vol] 2.00 10*3/uL Normal 1.0-4.8 [facility] Comment on above: Performed By: #### H H, BMP #### [facility] [address] [place] [address] Seam Checker: Con Oseguera MD Lymphocytes/100 WBC (Bld) 26 % Normal 24-44 [facility] Comment on above: Performed By: #### H H, BMP #### [facility] [address] [place] [address] Seam Checker: Con Oseguera MD Monocytes (Bld) [#/Vol] 0.69 10*3/uL Normal 0.1-1.3 [facility] Comment on above: Performed By: #### H H, BMP #### [facility] [place] [address] Seam Checker: Con Oseguera MD Monocytes/100 WBC (Bld) 9 % High 1-7 [facility] Comment on above: Performed By: #### H H, BMP #### [facility] [address] [place] [address] Seam Checker: Con Oseguera MD Morphology Theo (Bld) [Interp] ANISOCYTOSIS PRESENT Normal [facility] Comment on above: Result Comment: 1+ ELLIPTOCYTES 1+ ECHINOCYTES Performed By: #### H H, BMP #### [facility] [place] [address] Seam Checker: Con Oseguera MD Neutrophil (Seg) 59 % Normal 36-66 [facility] Comment on above: Performed By: #### H H, BMP #### [facility] [place] [address] Seam Checker: Con Oseguera MD Erythrocyte distribution width (RBC) [Ratio] 28.8 % High 11.5-14.9 [facility] Comment on above: Performed By: #### H H, BMP #### [facility] [address] [place] [address] Seam Checker: Con Oseguera MD Hematocrit (Bld) [Volume fraction] 33.5 % Low 41-53 [facility] Comment on above: Performed By: #### H H, BMP #### [facility] [place] [address] Seam Checker: Con Oseguera MD Hemoglobin (Bld) [Mass/Vol] 10.5 g/dL Low 13.5-17.5 [facility] Comment on above: Performed By: #### H H, BMP #### [facility] [address] [place] [address]. [place] [address] Seam Checker: Con Oseguera MD MCH (RBC) [Entitic mass] 23.6 pg Low 26-34 [facility] Comment on above: Performed By: #### H H, BMP #### [facility] [address] [place] [address]. [place] [address] Seam Checker: Con Oseguera MD MCHC (RBC) [Mass/Vol] 31.3 g/dL Normal 31-37 [facility] Comment on above: Performed By: #### H H, BMP #### [facility] [address] [place] [address]. [place] [address] Seam Checker: Con Oseguera MD MCV (RBC) [Entitic vol] 75.4 fL Low 80-100 [facility] Comment on above: Performed By: #### H H, BMP #### [facility] [place] [address] Seam Checker: Con Oseguera MD Platelet mean volume (Bld) [Entitic vol] 8.9 fL Normal 6.0-12.0 [facility] Comment on above: Performed By: #### H H, BMP #### [facility] [place] [address] Seam Checker: Con Oseguera MD Platelets (Bld) [#/Vol] 305 10*3/uL Normal 150-450 [facility] Comment on above: Performed By: #### H H, BMP #### [facility] [address] [place] [address] Seam Checker: Con Oseguera MD RBC (Bld) [#/Vol] 4.44 10*6/uL Low 4.5-5.9 [facility] Comment on above: Performed By: #### H H, BMP #### [facility] [place] [address] Seam Checker: Con Oseguera MD WBC (Bld) [#/Vol] 7.7 10*3/uL Normal 3.5-11.0 [facility] Comment on above: Performed By: #### H H, BMP #### [facility] [address] [place] [address] Seam Checker: Con Oseguera MD Abs.Imm.Granulocyte NOT REPORTED Normal 0.00-0.30 [facility] Comment on above: Performed By: #### H H, BMP #### [facility] [address] [place] [address] Seam Checker: Con Oseguera MD Auto Diff Performed NOT REPORTED Normal [facility] Comment on above: Performed By: #### H H, BMP #### [facility] [address] [place] [address] Seam Checker: Con Oseguera MD Immature granulocytes (Bld) [#/Vol] NOT REPORTED Normal 0 [facility] Comment on above: Performed By: #### H H, BMP #### [facility] [address] [place] [address] Seam Checker: Con Oseguera MD NRBC Automated NOT REPORTED Normal [facility] Comment on above: Performed By: #### H H, BMP #### [facility] [address] [place] [address] Seam Checker: Con Oseguera MD Platelets (Bld) [#/Vol] NOT REPORTED Normal [facility] Comment on above: Performed By: #### H H, BMP #### [facility] [address] [place] [address] Seam Checker: Con Oseguera MD RBC morphology finding Nom (Bld) NOT REPORTED Normal [facility] Comment on above: Performed By: #### H H, BMP #### [facility] [address] [place] [address] Seam Checker: Con Oseguera MD WBC Morphology NOT REPORTED Normal [facility] Comment on above: Performed By: #### H H, BMP #### [facility] [address] [place] [address] Seam Checker: Con Oseguera MD Otheron 03-27-2019 Immature granulocytes (Bld) [#/Vol] NOT REPORTED [facility] [place] Microscopic Urinalysison Amorphous, UA NOT REPORTED None [facility] [place] Bacteria, UA NOT REPORTED None [facility] [place] Crystals UA NOT REPORTED None /HPF [facility] [place] Epithelial Cells UA 0 TO 2 /HPF [facility] [place] Mucus, UA NOT REPORTED None [facility] [place] Other Observations UA NOT REPORTED NOT REQ. [facility] [place] RBC (U) [#/Vol] 20 TO 50 /HPF [facility] [place] Renal Epithelial, Urine NOT REPORTED 0 /HPF [facility] [place] Trichomonas, UA NOT REPORTED None [facility] [place] WBC, UA 0 TO 2 /HPF [facility] [place] Yeast, UA NOT REPORTED None [facility] [place] - [facility] [place] Otheron 03-16-2019 Casts UA /LPF [facility], [place] UA w/Reflex Cultureon 2018 Acetoacetic Acid,Ur Negative Normal NEG [facility] Comment on above: Performed By: #### H H, BMP #### [facility] [address] [place] [address] Seam Checker: Con Oseguera MD Bilirubin, SemiQt,Ur Negative Normal NEG [facility] Comment on above: Performed By: #### H H, BMP #### [facility] [address] [place] [address] Seam Checker: Con Oseguera MD Color (U) YELLOW Normal YEL [facility] Comment on above: Performed By: #### H H, BMP #### [facility] [address] [place] [address] Seam Checker: Con Oseguera MD Glucose Ql (U) Negative Normal NEG [facility] Comment on above: Performed By: #### H H, BMP #### [facility] [address] [place] [address] Seam Checker: Con Oseguera MD Hemoglobin, Ur SMALL Abnormal NEG [facility] Comment on above: Performed By: #### H H, BMP #### [facility] [address] [place] [address] Seam Checker: Con Oseguera MD Leukocyte esterase Test strip Ql (U) Negative Normal NEG [facility] Comment on above: Performed By: #### H H, BMP #### [facility] [address] [place] [address] Seam Checker: Con Oseguera MD Nitrite,Ur Negative Normal NEG [facility] Comment on above: Performed By: #### H H, BMP #### [facility] [address] [place] [address] Seam Checker: Con Oseguera MD pH (U) 6.5 [pH] Normal 5.0-8.0 [facility] Comment on above: Performed By: #### H H, BMP #### [facility] [place] [address] Seam Checker: Con Oseguera MD Protein Ql (U) Negative Normal NEG [facility] Comment on above: Performed By: #### H H, BMP #### [facility] [address] [place] [address] Seam Checker: Con Oseguera MD Specific gravity (U) [Rel density] 1.008 Normal 1.000-1.030 [facility] Comment on above: Performed By: #### H H, BMP #### [facility] [address] [place] [address] Seam Checker: Con Oseguera MD Turbidity CLEAR Normal CLEAR [facility] Comment on above: Performed By: #### H H, BMP #### [facility] [address] [place] [address] Seam Checker: Con Oseguera MD Urobilinogen,Ur Normal Normal NORM [facility] Comment on above: Performed By: #### H H, BMP #### [facility] [address] [place] [address] Seam Checker: Con Oseguera MD Comment NOT REPORTED Normal [facility] Comment on above: Performed By: #### H H, BMP #### [facility] [address] [place] [address] Seam Checker: Con Oseguera MD Urinalysis Reflex to Culture on 03-16-2019 Bilirubin Urine Negative NEGATIVE [facility] Color, UA YELLOW YELLOW [facility] [place], [place] Glucose, Ur Negative NEGATIVE [facility], [place] Interpretation and review of laboratory results Abnormal [place], [place] Ketones Ql (U) Negative NEGATIVE [facility], [place] Leukocyte esterase Test strip Ql (U) Negative NEGATIVE [facility], [place] Nitrite, Urine Negative NEGATIVE [facility], [place] pH, UA 6.5 [place], [place] Protein (U) [Mass/Vol] Negative NEGATIVE [facility], [place] Specific [place], UA 1.008 [facility], [place] Turbidity UA CLEAR CLEAR [place], [place] Urinalysis Comments NOT REPORTED [place], [place] Urine Hgb SMALL Abnormal NEGATIVE [place] Urobilinogen, Urine Normal Normal [place] Urinalysis,Microon 9 ----- Normal [facility] Comment on above: Performed By: #### H H, BMP #### [facility] [address] [place] [address] Seam Checker: Con Oseguera MD Epithelial cells LM.HPF (Urine sed) [#/Area] 0 TO 2 Normal [facility] Comment on above: Performed By: #### H H, BMP #### [facility] [address] [place] [address] Seam Checker: Con Oseguera MD RBC (U) [#/Vol] 20 TO 50 Normal [facility] Comment on above: Performed By: #### H H, BMP #### [facility] [address] [place] [address] Seam Checker: Con Oseguera MD WBC (U) [#/Vol] 0 TO 2 Normal [facility] Comment on above: Performed By: #### H H, BMP #### [facility] [address] [place] [address] Seam Checker: Con Oseguera MD Amorphous sediment LM Ql (Urine sed) NOT REPORTED Normal NONE [facility] Comment on above: Performed By: #### H H, BMP #### [facility] [address] [place] [address] Seam Checker: Con Oseguera MD Bacteria LM.HPF (Urine sed) [#/Area] NOT REPORTED Normal NONE [facility] Comment on above: Performed By: #### H H, BMP #### [facility] [address] [place] [address] Seam Checker: Con Oseguera MD Casts LM.LPF (Urine sed) [#/Area] NOT REPORTED Normal [facility] Comment on above: Performed By: #### H H, BMP #### [facility] [address] [place] [address] Seam Checker: Con Oseguera MD Crystals LM Nom (Urine sed) NOT REPORTED Normal NONE [facility] Comment on above: Performed By: #### H H, BMP #### [facility] [address] [place] [address] Seam Checker: Con Oseguera MD Epithelial, Renal NOT REPORTED Normal 0 [facility] Comment on above: Performed By: #### H H, BMP #### [facility] [address] [place] [address] Seam Checker: Con Oseguera MD Mucus Strands NOT REPORTED Normal NONE [facility] Comment on above: Performed By: #### H H, BMP #### [facility] [facility] [address] [place] [address] Seam Checker: Con Oseguera MD Other Observations NOT REPORTED Normal NREQ [facility] Comment on above: Performed By: #### H H, BMP #### [facility] [address] [place] [address] Seam Checker: Con Oseguera MD Trichomonas NOT REPORTED Normal NONE [facility] Comment on above: Performed By: #### H H, BMP #### [facility] [address] [place] [address] Seam Checker: Con Oseguera MD Yeast LM Ql (Urine sed) NOT REPORTED Normal NONE [facility] Comment on above: Performed By: #### H H, BMP #### [facility] [place] [address] Seam Checker: Con Oseguera MD Basic Metab w/rfx MGon 03-13 (cont.) Normal [facility] Comment on above: Result Comment: Aver age GFR for 70 or more years old: 75 mL/min/1.73sq m Chronic Kidney Disease: <60 mL/min/1.73sq m Kidney failure: <15 mL/min/1.73sq m eGFR calculated using average adult body mass. Additional eGFR calculator available at: http://www.[employer]/multiple_crcl_2012.htm Performed By: #### H H, BMP #### [facility] [place] [address] Seam Checker: Con Oseguera MD Anion gap [Moles/Vol] 12 mmol/L Normal 9-17 [facility] Comment on above: Performed By: #### H H, BMP #### [facility] [place] [address] Seam Checker: Con Oseguera MD Calcium [Mass/Vol] 9.2 mg/dL Normal 8.6-10.4 [facility] Comment on above: Performed By: #### H H, BMP #### [facility] [address] [place] [address] Seam Checker: Con Oseguera MD Chloride [Moles/Vol] 105 mmol/L Normal 98-107 [facility] Comment on above: Performed By: #### H H, BMP #### [facility] [address] [place] [address] Seam Checker: Con Oseguera MD CO2 [Moles/Vol] 26 mmol/L Normal 20-31 [facility] Comment on above: Performed By: #### H H, BMP #### [facility] [address] [place] [address] Seam Checker: Con Oseguera MD Creatinine [Mass/Vol] 1.41 mg/dL High 0.70-1.20 [facility] Comment on above: Performed By: #### H H, BMP #### [facility] [address] [place] [address] Seam Checker: Con Oseguera MD GFR, Amer 58 mL/min Low >60 [facility] Comment on above: Performed By: #### H H, BMP #### [facility] [address] [place] [address] Seam Checker: Con Oseguera MD GFR,non Amer 48 mL/min Low >60 [facility] Comment on above: Performed By: #### H H, BMP #### [facility] [address] [place] [address] Seam Checker: Con Oseguera MD Glucose [Mass/Vol] 90 mg/dL Normal 70-99 [facility] Comment on above: Performed By: #### H H, BMP #### [facility] [address] [place] [address] Seam Checker: Con Oseguera MD Potassium [Moles/Vol] 4.1 mmol/L Normal 3.7-5.3 [facility] Comment on above: Performed By: #### H H, BMP #### [facility] [address] [place] [address] Seam Checker: Con Oseguera MD Sodium [Moles/Vol] 143 mmol/L Normal 135-144 [facility] Comment on above: Performed By: #### H H, BMP #### [facility] [address] [place] [address] Seam Checker: oCn Oseugera MD Urea nitrogen [Mass/Vol] 19 mg/dL Normal 8-23 [facility] Comment on above: Performed By: #### H H, BMP #### [facility] [address] [place] [address] Seam Checker: Cno Oseguera MD BUN/CRE Ratio NOT REPORTED Normal 9-20 [facility] Comment on above: Performed By: #### H H, BMP #### [facility] [address] [place] [address] Seam Checker: Con Oseguera MD Staging: NOT REPORTED Normal [facility] Comment on above: Performed By: #### H H, BMP #### [facility] [address] [place] [address] Seam Checker: Con Oseguera MD Basic Metabolic Panel w/ Ref milagros to MGon 03-13-2019 Anion gap [Moles/Vol] 12 mmol/L 9 - 17 mmol/L [place] Bun/Cre Ratio NOT REPORTED [place] Calcium [Mass/Vol] 9.2 mg/dL 8.6 - 10. 4 mg/dL [place] Chloride [Moles/Vol] 105 mmol/L 98 - 107 mmol/L [place] CO2 [Moles/Vol] 26 mmol/L 20 - 31 mmol/L [place] Creatinine [Mass/Vol] 1.41 mg/dL High 0.7 - 1.2 mg/dL [place] GFR 58 mL/min Low >60 [place] GFR Non- 48 mL/min Low >60 [place] GFR/1.73 sq M predicted among non-blacks MDRD (S/P/Bld) [Vol rate/Area] [place] Comment on above: Average GFR for 70 o r more years old: 75 mL/min/1.73sq m Chronic Kidney Disease: <60 mL/min/1.73sq m Kidney failure: <15 mL/min/1.73sq m eGFR calculated using average adult body mass. Additional eGFR calculator available at: http://www.[employer]Minder_crcl_2011.htm GFR/1.73 sq M predicted among non-blacks MDRD (S/P/Bld) [Vol rate/Area] NOT REPORTED [place] Glucose [Mass/Vol] 90 mg/dL 70 - 99 mg/dL [place], [place] Interpretation and review of laboratory results Abnormal [place] Potassium [Moles/Vol] 4.1 mmol/L 3.7 - 5.3 mmol/L [place] Sodium [Moles/Vol] 143 mmol/L 135 - 144 mmol/L [place] Urea nitrogen [Mass/Vol] 19 mg/dL 8 - 23 mg/dL [place] POC Glucose Fingerstick[place] Glucose [Mass/Vol] 195 mg/dL High 75 - 110 mg/dL [place] Interpretation and review of laboratory results Abnormal [place] Glucose [Mass/Vol] 79 mg/dL 75 - 110 mg/dL [place] Basic Metab w/rfx MGon 03-12 (cont.) Normal [facility] Comment on above: Result Comment: Aver age GFR for 70 or more years old: 75 mL/min/1.73sq m Chronic Kidney Disease: <60 mL/min/1.73sq m Kidney failure: <15 mL/min/1.73sq m eGFR calculated using average adult body mass. Additional eGFR calculator available at: http://www.[employer]/multiple_crcl_2011.htm Performed By: #### H Howie, BMP #### [facility] [address] [place] [address] Seam Checker: Con Oseguera MD Anion gap [Moles/Vol] 11 mmol/L Normal 9-17 [facility] Comment on above: Performed By: #### H H, BMP #### [facility] [address] [place] [address] Seam Checker: Con Oseguera MD Calcium [Mass/Vol] 9.2 mg/dL Normal 8.6-10.4 [facility] Comment on above: Performed By: #### H H, BMP #### [facility] [address] [place] [address] Seam Checker: Con Oseguera MD Chloride [Moles/Vol] 108 mmol/L High 98-107 [facility] Comment on above: Performed By: #### H H, BMP #### [facility] [address] [place] [address] Seam Checker: Con Oseguera MD CO2 [Moles/Vol] 26 mmol/L Normal 20-31 [facility] Comment on above: Performed By: #### H H, BMP #### [facility] [address] [place] [address] Seam Checker: Con Oseguera MD Creatinine [Mass/Vol] 1.41 mg/dL High 0.70-1.20 [facility] Comment on above: Performed By: #### H H, BMP #### [facility] [address] [place] [address] Seam Checker: Con Oseguera MD GFR, Amer 58 mL/min Low >60 [facility] Comment on above: Performed By: #### H H, BMP #### [facility] [address] [place] [address] Seam Checker: Con Oseguera MD GFR,non Amer 48 mL/min Low >60 [facility] Comment on above: Performed By: #### H H, BMP #### [facility] [address] [place] [address] Seam Checker: Con Oseguera MD Glucose [Mass/Vol] 81 mg/dL Normal 70-99 [facility] Comment on above: Performed By: #### H H, BMP #### [facility] [address] [place] [address] Seam Checker: Con Oseguera MD Potassium [Moles/Vol] 4.1 mmol/L Normal 3.7-5.3 [facility] Comment on above: Performed By: #### H H, BMP #### [facility] [address] [place] [address] Seam Checker: Con Oseguera MD Sodium [Moles/Vol] 145 mmol/L High 135-144 [facility] Comment on above: Performed By: #### H H, BMP #### [facility] [address] [place] [address] Seam Checker: Con Oseguera MD Urea nitrogen [Mass/Vol] 20 mg/dL Normal 8-23 [facility] Comment on above: Performed By: #### H H, BMP #### [facility] [address] [place] [address] Seam Checker: Con Oseguera MD BUN/CRE Ratio NOT REPORTED Normal 9-20 [facility] Comment on above: Performed By: #### H H, BMP #### [facility] [address] [place] [address] Seam Checker: Con Oseguera MD Staging: NOT REPORTED Normal [facility] Comment on above: Performed By: #### H H, BMP #### [facility] [address] [place] [address] Seam Checker: Con Oseguera MD Basic Metabolic Panel w/ Ref milagros to MGon 03-12-2019 Anion gap [Moles/Vol] 11 mmol/L 9 - 17 mmol/L [place] Bun/Cre Ratio NOT REPORTED [place] Calcium [Mass/Vol] 9.2 mg/dL 8.6 - 10. 4 mg/dL [place] Chloride [Moles/Vol] 108 mmol/L High 98 - 107 mmol/L [place] CO2 [Moles/Vol] 26 mmol/L 20 - 31 mmol/L [place] Creatinine [Mass/Vol] 1.41 mg/dL High 0.7 - 1.2 mg/dL [place] GFR 58 mL/min Low >60 [place] GFR Non- 48 mL/min Low >60 [place] GFR/1.73 sq M predicted among non-blacks MDRD (S/P/Bld) [Vol rate/Area] NOT REPORTED [place] GFR/1.73 sq M predicted among non-blacks MDRD (S/P/Bld) [Vol rate/Area] [place] Comment on above: Average GFR for 70 o r more years old: 75 mL/min/1.73sq m Chronic Kidney Disease: <60 mL/min/1.73sq m Kidney failure: <15 mL/min/1.73sq m eGFR calculated using average adult body mass. Additional eGFR calculator available at: http://www.[employer]/multiple_crcl_2012.htm Glucose [Mass/Vol] 81 mg/dL 70 - 99 mg/dL [place] Interpretation and review of laboratory results Abnormal [place] Potassium [Moles/Vol] 4.1 mmol/L 3.7 - 5.3 mmol/L [place] Sodium [Moles/Vol] 145 mmol/L High 135 - 144 mmol/L [place] Urea nitrogen [Mass/Vol] 20 mg/dL 8 - 23 mg/dL [place] POC Glucose [place] Glucose [Mass/Vol] 285 mg/dL High 75 - 110 mg/dL [place] Interpretation and review of laboratory results Abnormal [place] Glucose [Mass/Vol] 286 mg/dL High 75 - 110 mg/dL [place] Interpretation and review of laboratory results Abnormal [place] Glucose [Mass/Vol] 264 mg/dL High 75 - 110 mg/dL [place] Interpretation and review of laboratory results Abnormal [place] Glucose [Mass/Vol] 72 mg/dL Low 75 - 110 mg/dL [place] Interpretation and review of laboratory results Abnormal [place] Basic Metab w/rfx MGon 03-11 (cont.) Normal [facility] Comment on above: Result Comment: Aver age GFR for 70 or more years old: 75 mL/min/1.73sq m Chronic Kidney Disease: <60 mL/min/1.73sq m Kidney failure: <15 mL/min/1.73sq m eGFR calculated using average adult body mass. Additional eGFR calculator available at: http://www.[employer]/multiple_crcl_2012.htm Performed By: #### H H, BMP #### [facility] [address] [facility]. [place], [place] [id number] Seam Checker: Con Oseguera MD Anion gap [Moles/Vol] 10 mmol/L Normal 9-17 [facility] Comment on above: Performed By: #### H H, BMP #### [facility] [address] [facility]. [place], [place] [address] Seam Checker: Con Oseguera MD Calcium [Mass/Vol] 9.3 mg/dL Normal 8.6-10.4 [facility] Comment on above: Performed By: #### H H, BMP #### [facility] [address] [place] [address] Seam Checker: Con Oseguera MD Chloride [Moles/Vol] 104 mmol/L Normal 98-107 [facility] Comment on above: Performed By: #### H H, BMP #### [facility] [address] [place] [address] Seam Checker: Con Oseguera MD CO2 [Moles/Vol] 26 mmol/L Normal 20-31 [facility] Comment on above: Performed By: #### H H, BMP #### [facility] [address] [place] [address] Seam Checker: Con Oseguera MD Creatinine [Mass/Vol] 1.49 mg/dL High 0.70-1.20 [facility] Comment on above: Performed By: #### H H, BMP #### [facility] [place] [address] Seam Checker: Con Oseguera MD GFR, Amer 55 mL/min Low >60 [facility] Comment on above: Performed By: #### H H, BMP #### [facility] [place] [address] Seam Checker: Con Oseguera MD GFR,non Amer 45 mL/min Low >60 [facility] Comment on above: Performed By: #### H H, BMP #### [facility] [place] [address] Seam Checker: Con Oseguera MD Glucose [Mass/Vol] 78 mg/dL Normal 70-99 [facility] Comment on above: Performed By: #### H H, BMP #### [facility] [place] [address] Seam Checker: Con Oseguera MD Potassium [Moles/Vol] 4.0 mmol/L Normal 3.7-5.3 [facility] Comment on above: Performed By: #### H H, BMP #### [facility] [address] [place] [address] Seam Checker: Con Oseguera MD Sodium [Moles/Vol] 140 mmol/L Normal 135-144 [facility] Comment on above: Performed By: #### H H, BMP #### [facility] [address] [place] [address] Seam Checker: Con Oseguera MD Urea nitrogen [Mass/Vol] 22 mg/dL Normal 8-23 [facility] Comment on above: Performed By: #### H H, BMP #### [facility] [address] [place] [address] Seam Checker: Con Oseguera MD BUN/CRE Ratio NOT REPORTED Normal 9-20 [facility] Comment on above: Performed By: #### H H, BMP #### [facility] [address] [place] [address] Seam Checker: Con Oseguera MD Staging: NOT REPORTED Normal [facility] Comment on above: Performed By: #### H H, BMP #### [facility] [address] [place] [address] Seam Checker: Con Oseguera MD Basic Metabolic Panel w/ Ref milagros to MGon 03-11-2019 Anion gap [Moles/Vol] 10 mmol/L 9 - 17 mmol/L [facility], [place] Bun/Cre Ratio NOT REPORTED [facility], [place] Calcium [Mass/Vol] 9.3 mg/dL 8.6 - 10. 4 mg/dL [facility], [place] Chloride [Moles/Vol] 104 mmol/L 98 - 107 mmol/L [facility] CO2 [Moles/Vol] 26 mmol/L 20 - 31 mmol/L [facility] [place] Creatinine [Mass/Vol] 1.49 mg/dL High 0.7 - 1.2 mg/dL [facility], [place] GFR 55 mL/min Low >60 [place] GFR Non- 45 mL/min Low >60 [place] GFR/1.73 sq M predicted among non-blacks MDRD (S/P/Bld) [Vol rate/Area] [place] Comment on above: Average GFR for 70 o r more years old: 75 mL/min/1.73sq m Chronic Kidney Disease: <60 mL/min/1.73sq m Kidney failure: <15 mL/min/1.73sq m eGFR calculated using average adult body mass. Additional eGFR calculator available at: http://www.[employer]/multiple_crcl_2012.htm GFR/1.73 sq M predicted among non-blacks MDRD (S/P/Bld) [Vol rate/Area] NOT REPORTED [place] Glucose [Mass/Vol] 78 mg/dL 70 - 99 mg/dL [place] Interpretation and review of laboratory results Abnormal [place] Potassium [Moles/Vol] 4.0 mmol/L 3.7 - 5.3 mmol/L [place] Sodium [Moles/Vol] 140 mmol/L 135 - 144 mmol/L [place] Urea nitrogen [Mass/Vol] 22 mg/dL 8 - 23 mg/dL [place] POC Glucose Fingerstick[place] Glucose [Mass/Vol] 213 mg/dL High 75 - 110 mg/dL [place] Interpretation and review of laboratory results Abnormal [place] Glucose [Mass/Vol] 139 mg/dL High 75 - 110 mg/dL [place] Interpretation and review of laboratory results Abnormal [place] Glucose [Mass/Vol] 195 mg/dL High 75 - 110 mg/dL [place] Interpretation and review of laboratory results Abnormal [place] Glucose [Mass/Vol] 73 mg/dL Low 75 - 110 mg/dL [place] Interpretation and review of laboratory results Abnormal [place] XR CHEST (2 VW)on 03-11-2019 XR [...] Maxwell Chaudhry MD 03/11/19 Final result Normal [facility] XR CHEST STANDARD (2 VW)on 0 03-11-2019 [...] stable. No acute osseous abnormality is seen. [place] 1. Stable bibasilar pulmonary opacities that may reflect atelectasis or pneumonia. 2. Stable small left pleural effusion. [place], [place] Stan, [facility] Incoming Radiant Results From [employer] - 03/11/2019 2:19 PM EDT EXAMINATION: TWO [...] pneumonia. 2. Stable small left pleural effusion. [place] Basic Metab w/rfx MGon 03-10 (cont.) Normal [facility] Comment on above: Result Comment: Aver age GFR for 70 or more years old: 75 mL/min/1.73sq m Chronic Kidney Disease: <60 mL/min/1.73sq m Kidney failure: <15 mL/min/1.73sq m eGFR calculated using average adult body mass. Additional eGFR calculator available at: http://www.[employer]/multiple_crcl_2012.htm Performed By: #### B MP #### [facility] [address] [place] [address] Seam Checker: Con Oseguera MD Anion gap [Moles/Vol] 12 mmol/L Normal 9-17 [facility] Comment on above: Performed By: #### B MP #### [facility] [address] [place] [address] Seam Checker: Con Oseguera MD Calcium [Mass/Vol] 9.3 mg/dL Normal 8.6-10.4 [facility] Comment on above: Performed By: #### B MP #### [facility] [address] [place] [address] Seam Checker: Con Oseguera MD Chloride [Moles/Vol] 102 mmol/L Normal 98-107 [facility] Comment on above: Performed By: #### B MP #### [facility] [address] [place] [address] Seam Checker: Con Oseguera MD CO2 [Moles/Vol] 27 mmol/L Normal 20-31 [facility] Comment on above: Performed By: #### B MP #### [facility] [address] [place] [address] Seam Checker: Con Oseguera MD Creatinine [Mass/Vol] 1.69 mg/dL High 0.70-1.20 [facility] Comment on above: Performed By: #### B MP #### [facility] [address] [place] [address] Seam Checker: Con Oseguera MD GFR, Amer 47 mL/min Low >60 [facility] Comment on above: Performed By: #### B MP #### [facility] [address] [place] [address] Seam Checker: Con Oseguera MD GFR,non Amer 39 mL/min Low >60 [facility] Comment on above: Performed By: #### B MP #### [facility] [address] [place] [address] Seam Checker: Con Oseguera MD Glucose [Mass/Vol] 87 mg/dL Normal 70-99 [facility] Comment on above: Performed By: #### B MP #### [facility] [address] [place] [address] Seam Checker: Con Oseguera MD Potassium [Moles/Vol] 4.2 mmol/L Normal 3.7-5.3 [facility] Comment on above: Performed By: #### B MP #### [facility] [address] [place] [address] Seam Checker: Con Oseguera MD Sodium [Moles/Vol] 141 mmol/L Normal 135-144 [facility] Comment on above: Performed By: #### B MP #### [facility] [address] [place] [address] Seam Checker: Con Oseguera MD Urea nitrogen [Mass/Vol] 24 mg/dL High 8-23 [facility] Comment on above: Performed By: #### B MP #### [facility] [address] [place] [address] Seam Checker: Con Oseguera MD BUN/CRE Ratio NOT REPORTED Normal 9-20 [facility] Comment on above: Performed By: #### B MP #### [facility] [address] [place] [address] Seam Checker: Con Oseguera MD Staging: NOT REPORTED Normal [facility] Comment on above: Performed By: #### B MP #### [facility] [address] [place], [place] [id number] Seam Checker: Con Oseguera MD Basic Metabolic Panel w/ Ref milagros to MGon 03-10-2019 Anion gap [Moles/Vol] 12 mmol/L 9 - 17 mmol/L [place] Bun/Cre Ratio NOT REPORTED [place] Calcium [Mass/Vol] 9.3 mg/dL 8.6 - 10. 4 mg/dL [place] Chloride [Moles/Vol] 102 mmol/L 98 - 107 mmol/L [place] CO2 [Moles/Vol] 27 mmol/L 20 - 31 mmol/L [place] Creatinine [Mass/Vol] 1.69 mg/dL High 0.7 - 1.2 mg/dL [place] GFR 47 mL/min Low >60 [place] GFR Non- 39 mL/min Low >60 [place] GFR/1.73 sq M predicted among non-blacks MDRD (S/P/Bld) [Vol rate/Area] NOT REPORTED [place] GFR/1.73 sq M predicted among non-blacks MDRD (S/P/Bld) [Vol rate/Area] [place] Comment on above: Average GFR for 70 o r more years old: 75 mL/min/1.73sq m Chronic Kidney Disease: <60 mL/min/1.73sq m Kidney failure: <15 mL/min/1.73sq m eGFR calculated using average adult body mass. Additional eGFR calculator available at: http://www.[employer]/multiple_crcl_2012.htm Glucose [Mass/Vol] 87 mg/dL 70 - 99 mg/dL [place] Interpretation and review of laboratory results Abnormal [place] Potassium [Moles/Vol] 4.2 mmol/L 3.7 - 5.3 mmol/L [place] Sodium [Moles/Vol] 141 mmol/L 135 - 144 mmol/L [place] Urea nitrogen [Mass/Vol] 24 mg/dL High 8 - 23 mg/dL [place] Digoxinon 03-10-2019 Digoxin [Mass/Vol] 0.6 ng/mL Normal 0.5-2.0 [facility] Comment on above: Result Comment: Digoxin Reference Range: Heart Failure 0.5-0.9 Atrial Fibrillation 0.8-2.0 Performed By: #### B MP #### [facility] [address] [place] [address] Seam Checker: Con Oseguera MD Digoxin [Mass/Vol] 915 ng/mL Normal [facility] Comment on above: Performed By: #### B MP #### [facility] [address] [facility]. [place], [place] [id number] Seam Checker: Con Oseguera MD Digoxin [Mass/Vol] 6857832 ng/mL Normal [facility] Comment on above: Performed By: #### B MP #### [facility] [address] [place] [address] Seam Checker: Con Oseguera MD Digoxin [Mass/Vol] 125mct Normal [facility] Comment on above: Performed By: #### B MP #### [facility] [address] [place] [address] Seam Checker: Con Oseguera MD Digoxin Levelon 03-10-2019 Digoxin Date Last Dose [id number] [place], [place] Digoxin Dose Amount 125mct [place] Digoxin Dose Time 915 [place], [place] INR Coag (Bld) [Relative time] 0.6 ng/mL 0.5 - 2 ng/mL [place] Comment on above: Digoxin Reference Range: Heart Failure 0.5-0.9 Atrial Fibrillation 0.8-2.0 Magnesiumon 03-10-2019 Magnesium [Mass/Vol] 2.1 mg/dL Normal 1.6-2.6 [facility] Comment on above: Performed By: #### B MP #### [facility] [address] [place] [address] Seam Checker: Con Oseguera MD Magnesium [Mass/Vol] 2.1 mg/dL 1.6 - 2.6 mg/dL [place] POC Glucose Fingerstickon Glucose [Mass/Vol] 298 mg/dL High 75 - 110 mg/dL [place], [place] Interpretation and review of laboratory results Abnormal [place] Glucose [Mass/Vol] 88 mg/dL 75 - 110 mg/dL [place] Glucose [Mass/Vol] 120 mg/dL High 75 - 110 mg/dL [place] Interpretation and review of laboratory results Abnormal [place] Glucose [Mass/Vol] 87 mg/dL 75 - 110 mg/dL [place] Basic Metab w/rfx MGon 03-09 (cont.) Normal [facility] Comment on above: Result Comment: Aver age GFR for 70 or more years old: 75 mL/min/1.73sq m Chronic Kidney Disease: <60 mL/min/1.73sq m Kidney failure: <15 mL/min/1.73sq m eGFR calculated using average adult body mass. Additional eGFR calculator available at: http://www.[employer]/multiple_crcl_2012.htm Performed By: #### B MP #### [facility] [address] [facility]. [place], [place] [id number] Seam Checker: Con Oseguera MD Anion gap [Moles/Vol] 15 mmol/L Normal 9-17 [facility] Comment on above: Performed By: #### B MP #### [facility] [address] [place] [address] Seam Checker: Con Oseguera MD Calcium [Mass/Vol] 10.0 mg/dL Normal 8.6-10.4 [facility] Comment on above: Performed By: #### B MP #### [facility] [address] [place] [address] Seam Checker: Con Oseguera MD Chloride [Moles/Vol] 98 mmol/L Normal 98-107 [facility] Comment on above: Performed By: #### B MP #### [facility] [address] [place] [address] Seam Checker: Con Oseguera MD CO2 [Moles/Vol] 24 mmol/L Normal 20-31 [facility] Comment on above: Performed By: #### B MP #### [facility] [address] [place] [address] Seam Checker: Con Oseguera MD Creatinine [Mass/Vol] 1.54 mg/dL High 0.70-1.20 [facility] Comment on above: Performed By: #### B MP #### [facility] [address] [place] [address] Seam Checker: Con Oseguera MD GFR, Amer 53 mL/min Low >60 [facility] Comment on above: Performed By: #### B MP #### [facility] [address] [place] [address] Seam Checker: Con Oseguera MD GFR,non Amer 44 mL/min Low >60 [facility] Comment on above: Performed By: #### B MP #### [facility] [address] [place] [address] Seam Checker: Con Oseguera MD Glucose [Mass/Vol] 119 mg/dL High 70-99 [facility] Comment on above: Performed By: #### B MP #### [facility] [address] [place] [address] Seam Checker: Con Oseguera MD Potassium [Moles/Vol] 4.4 mmol/L Normal 3.7-5.3 [facility] Comment on above: Performed By: #### B MP #### [facility] [address] [place] [address] Seam Checker: Con Oseguera MD Sodium [Moles/Vol] 137 mmol/L Normal 135-144 [facility] Comment on above: Performed By: #### B MP #### [facility] [address] [place] [address] Seam Checker: Con Oseguera MD Urea nitrogen [Mass/Vol] 22 mg/dL Normal 8-23 [facility] Comment on above: Performed By: #### B MP #### [facility] [address] [place] [address] Seam Checker: Con Oseguera MD BUN/CRE Ratio NOT REPORTED Normal 9-20 [facility] Comment on above: Performed By: #### B MP #### [facility] [address] [place] [address] Seam Checker: Con Oseguera MD Staging: NOT REPORTED Normal [facility] Comment on above: Performed By: #### B MP #### [facility] [address] [place] [address] Seam Checker: Con Oseguera MD Basic Metabolic Panel w/ Ref milagros to MGon 03-09-2019 Anion gap [Moles/Vol] 15 mmol/L 9 - 17 mmol/L [facility], [place] Bun/Cre Ratio NOT REPORTED [facility], [place] Calcium [Mass/Vol] 10.0 mg/dL 8.6 - 10. 4 mg/dL [place] Chloride [Moles/Vol] 98 mmol/L 98 - 107 mmol/L [place] CO2 [Moles/Vol] 24 mmol/L 20 - 31 mmol/L [place] Creatinine [Mass/Vol] 1.54 mg/dL High 0.7 - 1.2 mg/dL [place] GFR 53 mL/min Low >60 [place] GFR Non- 44 mL/min Low >60 [place] GFR/1.73 sq M predicted among non-blacks MDRD (S/P/Bld) [Vol rate/Area] [place] Comment on above: Average GFR for 70 o r more years old: 75 mL/min/1.73sq m Chronic Kidney Disease: <60 mL/min/1.73sq m Kidney failure: <15 mL/min/1.73sq m eGFR calculated using average adult body mass. Additional eGFR calculator available at: http://www.[employer]/multiple_crcl_2012.htm GFR/1.73 sq M predicted among non-blacks MDRD (S/P/Bld) [Vol rate/Area] NOT REPORTED [place] Glucose [Mass/Vol] 119 mg/dL High 70 - 99 mg/dL [place], [place] Interpretation and review of laboratory results Abnormal [place] Potassium [Moles/Vol] 4.4 mmol/L 3.7 - 5.3 mmol/L [place] Sodium [Moles/Vol] 137 mmol/L 135 - 144 mmol/L [place] Urea nitrogen [Mass/Vol] 22 mg/dL 8 - 23 mg/dL [place] Cult,Urine,Cathon 03-09-2019 Cult,Urine,Cath Specimen Description .CATHETERIZED URINE Special Requests NOT REPORTED Culture KLEBSIELLA PNEUMONIAE >[id number] CFU/ML Report Status FINAL 03/09/2019 SUSCEPTIBILITY Organism [...] <=20 SUSCEPTIBLE Piperacillin/Tazobact am <=4 SUSCEPTIBLE Normal [facility] Comment on above: Performed By: #### B MP #### [facility] [address] [place] [address] Seam Checker: Con Oseguera MD POC Glucose Fingerstickon Glucose [Mass/Vol] 199 mg/dL High 75 - 110 mg/dL [place] Interpretation and review of laboratory results Abnormal [place] Glucose [Mass/Vol] 296 mg/dL High 75 - 110 mg/dL [place] Interpretation and review of laboratory results Abnormal [place] Glucose [Mass/Vol] 299 mg/dL High 75 - 110 mg/dL [place] Interpretation and review of laboratory results Abnormal [place] Glucose [Mass/Vol] 124 mg/dL High 75 - 110 mg/dL [place] Interpretation and review of laboratory results Abnormal [place] Urine culture via catheteron 03-09-2019 Culture KLEBSIELLA PNEUMONIA E >[id number] CFU/ML Abnormal [place] Interpretation and review of laboratory results Abnormal [place] Special Requests NOT REPORTED [place] Specimen Description .CATHETERIZED URINE [place] Basic Metab w/rfx MGon 03-08 (cont.) Normal [facility] Comment on above: Result Comment: Aver age GFR for 70 or more years old: 75 mL/min/1.73sq m Chronic Kidney Disease: <60 mL/min/1.73sq m Kidney failure: <15 mL/min/1.73sq m eGFR calculated using average adult body mass. Additional eGFR calculator available at: http://www.[employer]/multiple_crcl_2012.htm Performed By: #### B MP #### [facility] [address] [place] [address] Seam Checker: Con Oseguera MD Anion gap [Moles/Vol] 11 mmol/L Normal 9-17 [facility] Comment on above: Performed By: #### B MP #### [facility] [address] [place] [address] Seam Checker: Con Oseguera MD Calcium [Mass/Vol] 9.3 mg/dL Normal 8.6-10.4 [facility] Comment on above: Performed By: #### B MP #### [facility] [place] [address] Seam Checker: Con Oseguera MD Chloride [Moles/Vol] 100 mmol/L Normal 98-107 [facility] Comment on above: Performed By: #### B MP #### [facility] [address] [place] [address] Seam Checker: Con Oseguera MD CO2 [Moles/Vol] 28 mmol/L Normal 20-31 [facility] Comment on above: Performed By: #### B MP #### [facility] [place] [address] Seam Checker: Con Oseguera MD Creatinine [Mass/Vol] 1.57 mg/dL High 0.70-1.20 [facility] Comment on above: Performed By: #### B MP #### [facility] [place] [address] Seam Checker: Con Oseguera MD GFR, Amer 52 mL/min Low >60 [facility] Comment on above: Performed By: #### B MP #### [facility] [address] [place] [address] Seam Checker: Con Oseguera MD GFR,non Amer 43 mL/min Low >60 [facility] Comment on above: Performed By: #### B MP #### [facility] [address] [place] [address] Seam Checker: Con Oseguera MD Glucose [Mass/Vol] 75 mg/dL Normal 70-99 [facility] Comment on above: Performed By: #### B MP #### [facility] [address] [place] [address] Seam Checker: Con Oseguera MD Potassium [Moles/Vol] 4.6 mmol/L Normal 3.7-5.3 [facility] Comment on above: Performed By: #### B MP #### [facility] [address] [place] [address] Seam Checker: Con Oseguera MD Sodium [Moles/Vol] 139 mmol/L Normal 135-144 [facility] Comment on above: Performed By: #### B MP #### [facility] [address] [place] [address] Seam Checker: Con Oseguera MD Urea nitrogen [Mass/Vol] 27 mg/dL High 8-23 [facility] Comment on above: Performed By: #### B MP #### [facility] [address] [place] [address] Seam Checker: Con Oseguera MD BUN/CRE Ratio NOT REPORTED Normal 9-20 [facility] Comment on above: Performed By: #### B MP #### [facility] [address] [place] [address] Seam Checker: Con Oseguera MD Staging: NOT REPORTED Normal [facility] Comment on above: Performed By: #### B MP #### [facility] [address] [place] [address] Seam Checker: Con Oseguera MD Basic Metabolic Panel w/ Ref milagros to MGon 03-08-2019 Anion gap [Moles/Vol] 11 mmol/L 9 - 17 mmol/L [place] Bun/Cre Ratio NOT REPORTED [place] Calcium [Mass/Vol] 9.3 mg/dL 8.6 - 10. 4 mg/dL [place] Chloride [Moles/Vol] 100 mmol/L 98 - 107 mmol/L [place] CO2 [Moles/Vol] 28 mmol/L 20 - 31 mmol/L [place] Creatinine [Mass/Vol] 1.57 mg/dL High 0.7 - 1.2 mg/dL [place] GFR 52 mL/min Low >60 [place] GFR Non- 43 mL/min Low >60 [place] GFR/1.73 sq M predicted among non-blacks MDRD (S/P/Bld) [Vol rate/Area] [place] Comment on above: Average GFR for 70 o r more years old: 75 mL/min/1.73sq m Chronic Kidney Disease: <60 mL/min/1.73sq m Kidney failure: <15 mL/min/1.73sq m eGFR calculated using average adult body mass. Additional eGFR calculator available at: http://www.[employer]/multiple_crcl_2012.htm GFR/1.73 sq M predicted among non-blacks MDRD (S/P/Bld) [Vol rate/Area] NOT REPORTED [place] Glucose [Mass/Vol] 75 mg/dL 70 - 99 mg/dL [place] Interpretation and review of laboratory results Abnormal [place] Potassium [Moles/Vol] 4.6 mmol/L 3.7 - 5.3 mmol/L [place] Sodium [Moles/Vol] 139 mmol/L 135 - 144 mmol/L [place] Urea nitrogen [Mass/Vol] 27 mg/dL High 8 - 23 mg/dL [place] EKG 12 [place] 03-08-2019 Atrial Rate 49 BPM [place] Q-T Interval 406 ms [place] QRS Duration 80 ms [place] QTc Calculation (Bazett) 465 ms [place] R [place] -13 degrees [place], [place] T [place] 40 degrees [place] Ventricular Rate 79 BPM [place], [place] Stan, Mhpn Incoming Ekg Results From [facility] [place] [place] - 03/08/2019 10:18 AM EDT Atrial fibrillation Abnormal ECG When compared with ECG of 07-MAR-2019 17:56, (unconfirmed) No significant change was found [place] Atrial fibrillation Abnormal ECG When compared with ECG of 07-MAR-2019 17:56, (unconfirmed) No significant change was found [place] Hemoglobin A1Con 03-08-2019 HbA1c (Bld) [Mass fraction] 157 mg/dL Normal [facility] Comment on above: Result Comment: The ADA and AACC recommend providing the estimated average glucose result to permit better patient understanding of their HBA1c result. Performed By: #### B MP #### [facility] [address] [place], [place] [id number] Seam Checker: Con Oseguera MD HbA1c (Bld) [Mass fraction] 7.1 % High 4.0-6.0 [facility] Comment on above: Performed By: #### B MP #### [facility] [address] [place] [address] Seam Checker: Con Oseguera MD Glucose [Mass/Vol] 157 mg/dL [place] Comment on above: The ADA and AACC rec ommend providing the estimated average glucose result to permit better patient understanding of their HBA1c result. HbA1c (Bld) [Mass fraction] 7.1 % High 4 - 6 % [place] Interpretation and review of laboratory results Abnormal [place] POC Glucose Fingerstickon Glucose [Mass/Vol] 220 mg/dL High 75 - 110 mg/dL [place] Interpretation and review of laboratory results Abnormal [place] Glucose [Mass/Vol] 144 mg/dL High 75 - 110 mg/dL [place] Interpretation and review of laboratory results Abnormal [place] Glucose [Mass/Vol] 325 mg/dL High 75 - 110 mg/dL [place] Interpretation and review of laboratory results Abnormal [place] Glucose [Mass/Vol] 138 mg/dL High 75 - 110 mg/dL [place] Interpretation and review of laboratory results Abnormal [place] Glucose [Mass/Vol] 63 mg/dL Low 75 - 110 mg/dL [place] Interpretation and review of laboratory results Abnormal [place] Brain Natri. Peptideon 03-07 Natriuretic peptide B (Bld) [Mass/Vol] Pro-BNP Reference Range: Normal [facility] Comment on above: Result Comment: Rule Out: <300 Miranda Zone: Age <50 300-450 Age 50-75 300-900 Age >75 300-1800 Usually represents mild to moderate HF but other cardiopulmonary causes cannot be ruled out. Rule In: Age <50 >450 Age 50-75 >900 Age >75 >1800 Performed By: #### B MP #### [facility] [address] [place] [address] Seam Checker: Con Oseguera MD Natriuretic peptide B (Bld) [Mass/Vol] 946 pg/mL High <300 [facility] Comment on above: Result Comment: Pro- BNP results cannot be compared to BNP results. Performed By: #### B MP #### [facility] [address] [place] [address] Seam Checker: Con Oseguera MD Brain Natriuretic Peptideon 03-07-2019 Interpretation and review of laboratory results Abnormal [place] Natriuretic peptide B (Bld) [Mass/Vol] Pro-BNP Reference Range: [place] Comment on above: Rule Out: <300 Miranda Zone: Age <50 300-450 Age 50-75 300-900 Age >75 300-1800 Usually represents mild to moderate HF but other cardiopulmonary causes cannot be ruled out. Rule In: Age <50 >450 Age 50-75 >900 Age >75 >1800 Natriuretic peptide B (Bld) [Mass/Vol] 946 pg/mL High <300 [place] Comment on above: Pro-BNP results darrius ot be compared to BNP results. CBC Auto Differentialon 02-25 Basophils (Bld) [#/Vol] 0.10 10*3/uL [place] Basophils/100 WBC (Bld) 1 % 0 - 2 % [place] Differential Type NOT REPORTED [place] Eosinophils (Bld) [#/Vol] 0.10 10*3/uL [place] Eosinophils/100 WBC (Bld) 1 % 0 - 4 % [place] Erythrocyte distribution width (RBC) [Ratio] 29.0 % High 11.5 - 14.9 % [place] Hematocrit (Bld) [Volume fraction] 33.5 % Low 41 - 53 % [place] Hemoglobin (Bld) [Mass/Vol] 10.5 g/dL Low 13.5 - 17.5 g/dL [place] Interpretation and review of laboratory results Abnormal [place] Lymphocytes (Bld) [#/Vol] 0.72 10*3/uL Low [place], [place] Lymphocytes/100 WBC (Bld) 7 % Low 24 - 44 % [place] MCH (RBC) [Entitic mass] 22.4 pg Low 26 - 34 pg [place] MCHC (RBC) [Mass/Vol] 31.2 g/dL 31 - 37 g/dL [place] MCV (RBC) [Entitic vol] 71.7 fL Low 80 - 100 fL [place] Monocytes (Bld) [#/Vol] 0.72 10*3/uL [place] Monocytes/100 WBC (Bld) 7 % 1 - 7 % [place] Morphology Theo (Bld) [Interp] ANISOCYTOSIS PRESENT [place] Morphology Theo (Bld) [Interp] HYPOCHROMIA PRESENT [place], [place] Morphology Theo (Bld) [Interp] MICROCYTOSIS PRESENT [place] Platelet mean volume (Bld) [Entitic vol] 8.6 fL 6 - 12 fL [place], [place] Platelets (Bld) [#/Vol] NOT REPORTED [place] Platelets (Bld) [#/Vol] 273 10*3/uL [place] RBC (Bld) [#/Vol] 4.68 10*6/uL 4.5 - 5.9 m/uL [place] RBC morphology finding Nom (Bld) NOT REPORTED [place] Segmented neutrophils/100 WBC (Bld) 84 % High 36 - 66 % [place] Segs Absolute 8.66 [place], [place] WBC (Bld) [#/Vol] NOT REPORTED per 100 WBC [place] WBC (Bld) [#/Vol] 10.3 10*3/uL [place] WBC Morphology NOT REPORTED [place], [place] CBC with Diffon 03-07-2019 Abs. Basophil 0.10 k/uL Normal 0.0-0.2 [facility] Comment on above: Performed By: #### B MP #### [facility] [address] [place] [address] Seam Checker: Con Oseguera MD Abs.Neutrophil (Seg) 8.66 k/uL Normal 1.3-9.1 [facility] Comment on above: Performed By: #### B MP #### [facility] [address] [place] [address] Seam Checker: Con Oseguera MD Basophils/100 WBC (Bld) 1 % Normal 0-2 [facility] Comment on above: Performed By: #### B MP #### [facility] [address] [place] [address] Seam Checker: Con Oseguera MD Eosinophils (Bld) [#/Vol] 0.10 10*3/uL Normal 0.0-0.4 [facility] Comment on above: Performed By: #### B MP #### [facility] [address] [place] [address] Seam Checker: Con Oseguera MD Eosinophils/100 WBC (Bld) 1 % Normal 0-4 [facility] Comment on above: Performed By: #### B MP #### [facility] [address] [place] [address] Seam Checker: oCn Oseguera MD Lymphocytes (Bld) [#/Vol] 0.72 10*3/uL Low 1.0-4.8 [facility] Comment on above: Performed By: #### B MP #### [facility] [address] [place] [address] Seam Checker: Con Oseguera MD Lymphocytes/100 WBC (Bld) 7 % Low 24-44 [facility] Comment on above: Performed By: #### B MP #### [facility] [place] [address] Seam Checker: Con Oseguera MD Monocytes (Bld) [#/Vol] 0.72 10*3/uL Normal 0.1-1.3 [facility] Comment on above: Performed By: #### B MP #### [facility] [address] [place] [address] Seam Checker: Con Oseguera MD Monocytes/100 WBC (Bld) 7 % Normal 1-7 [facility] Comment on above: Performed By: #### B MP #### [facility] [address] [place] [address] Seam Checker: Con Oseguera MD Morphology Theo (Bld) [Interp] ANISOCYTOSIS PRESENT Normal [facility] Comment on above: Result Comment: MICR OCYTOSIS PRESENT HYPOCHROMIA PRESENT Performed By: #### B MP #### [facility] [address] [place] [address] Seam Checker: Con Oseguera MD Neutrophil (Seg) 84 % High 36-66 [facility] Comment on above: Performed By: #### B MP #### [facility] [address] [place] [address] Seam Checker: Con Oseguera MD Erythrocyte distribution width (RBC) [Ratio] 29.0 % High 11.5-14.9 [facility] Comment on above: Performed By: #### B MP #### [facility] [address] [place] [address] Seam Checker: Con Oseguera MD Hematocrit (Bld) [Volume fraction] 33.5 % Low 41-53 [facility] Comment on above: Performed By: #### B MP #### [facility] [address] [place] [address] Seam Checker: Con Oesguera MD Hemoglobin (Bld) [Mass/Vol] 10.5 g/dL Low 13.5-17.5 [facility] Comment on above: Performed By: #### B MP #### [facility] [place] [address] Seam Checker: Con Oseguera MD MCH (RBC) [Entitic mass] 22.4 pg Low 26-34 [facility] Comment on above: Performed By: #### B MP #### [facility] [address] [place] [address] Seam Checker: Con Oseguera MD MCHC (RBC) [Mass/Vol] 31.2 g/dL Normal 31-37 [facility] Comment on above: Performed By: #### B MP #### [facility] [address] [place] [address] Seam Checker: Con Oseguera MD MCV (RBC) [Entitic vol] 71.7 fL Low 80-100 [facility] Comment on above: Performed By: #### B MP #### [facility] [address] [place] [address] Seam Checker: Con Oseguera MD Platelet mean volume (Bld) [Entitic vol] 8.6 fL Normal 6.0-12.0 [facility] Comment on above: Performed By: #### B MP #### [facility] [place] [address] Seam Checker: Con Oseguera MD Platelets (Bld) [#/Vol] 273 10*3/uL Normal 150-450 [facility] Comment on above: Performed By: #### B MP #### [facility] [place] [address] Seam Checker: Con Oseguera MD RBC (Bld) [#/Vol] 4.68 10*6/uL Normal 4.5-5.9 [facility] Comment on above: Performed By: #### B MP #### [facility] [place] [address] Seam Checker: Con Oseguera MD WBC (Bld) [#/Vol] 10.3 10*3/uL Normal 3.5-11.0 [facility] Comment on above: Performed By: #### B MP #### [facility] [place] [address] Seam Checker: Con Oseguera MD Abs.Imm.Granulocyte NOT REPORTED Normal 0.00-0.30 [facility] Comment on above: Performed By: #### B MP #### [facility] [place] [address] Seam Checker: Con Oseguera MD Auto Diff Performed NOT REPORTED Normal [facility] Comment on above: Performed By: #### B MP #### [facility] [address] [place] [address] Seam Checker: Con Oseguera MD Immature granulocytes (Bld) [#/Vol] NOT REPORTED Normal 0 [facility] Comment on above: Performed By: #### B MP #### [facility] [address] [place] [address] Seam Checker: Con Oseguera MD NRBC Automated NOT REPORTED Normal [facility] Comment on above: Performed By: #### B MP #### [facility] [address] [place] [address] Seam Checker: Con Oseguera MD Platelets (Bld) [#/Vol] NOT REPORTED Normal [facility] Comment on above: Performed By: #### B MP #### [facility] [address] [place] [address] Seam Checker: Con Oseguera MD RBC morphology finding Nom (Bld) NOT REPORTED Normal [facility] Comment on above: Performed By: #### B MP #### [facility] [address] [place] [address] Seam Checker: Con Oseguera MD WBC Morphology NOT REPORTED Normal [facility] Comment on above: Performed By: #### B MP #### [facility] [address] [place] [address] Seam Checker: Con Oseguera MD CT ABDOMEN PELVIS WO [...] Del Angel MD 03/07/19 Final result Normal [facility] EXAMINATION: CT OF THE ABDOMEN AND PELVIS [...] Degenerative changes of the spine are present. [place], [place] Bibasilar consolidative changes and right middle lobe pulmonary infiltrates, consistent with pneumonia in the appropriate clinical setting. Mild left pleural effusion. Diverticulosis coli, without evidence of diverticulitis or colitis. Prostatomegaly. [employer] [place], [place], pn Incoming Radiant Results From [employer] - 03/07/2019 7:00 PM EDT EXAMINATION: CT [...] without evidence of diverticulitis or colitis. Prostatomegaly. [place], [place] Comp Metabolic Profon 2018 (cont.) Normal [facility] Comment on above: Result Comment: Aver age GFR for 70 or more years old: 75 mL/min/1.73sq m Chronic Kidney Disease: <60 mL/min/1.73sq m Kidney failure: <15 mL/min/1.73sq m eGFR calculated using average adult body mass. Additional eGFR calculator available at: http://www.[employer]/multiple_crcl_2012.htm Performed By: #### B MP #### [facility] [address] [facility] [place], [place] [id number] Seam Checker: Con Oseguera MD Albumin [Mass/Vol] 3.8 g/dL Normal 3.5-5.2 [facility] Comment on above: Performed By: #### B MP #### [facility] [address] [facility] [place], [place] [id number] Seam Checker: Con Oseguera MD Alkaline Phos 166 U/L High 40-129 [facility] Comment on above: Performed By: #### B MP #### [facility] [address] [facility] [place], [place] [id number] Seam Checker: Con Oseguera MD ALT [Catalytic activity/Vol] 28 U/L Normal 5-41 [facility] Comment on above: Performed By: #### B MP #### [facility] [address] [place] [address] Seam Checker: Con Oseguera MD Anion gap [Moles/Vol] 12 mmol/L Normal 9-17 [facility] Comment on above: Performed By: #### B MP #### [facility] [address] [place] [address] Seam Checker: Con Oseguera MD AST [Catalytic activity/Vol] 26 U/L Normal <40 [facility] Comment on above: Performed By: #### B MP #### [facility] [address] [place] [address] Seam Checker: Con Oseguera MD Bilirubin Ql (U) 0.20 mg/dL Low 0.3-1.2 [facility] Comment on above: Performed By: #### B MP #### [facility] [address] [place] [address] Seam Checker: Con Oseguera MD Calcium [Mass/Vol] 9.5 mg/dL Normal 8.6-10.4 [facility] Comment on above: Performed By: #### B MP #### [facility] [address] [place] [address] Seam Checker: Con Oseguera MD Chloride [Moles/Vol] 98 mmol/L Normal 98-107 [facility] Comment on above: Performed By: #### B MP #### [facility] [address] [place] [address] Seam Checker: Con Oseguera MD CO2 [Moles/Vol] 28 mmol/L Normal 20-31 [facility] Comment on above: Performed By: #### B MP #### [facility] [address] [place] [address] Seam Checker: Con Oseguera MD Creatinine [Mass/Vol] 1.70 mg/dL High 0.70-1.20 [facility] Comment on above: Performed By: #### B MP #### [facility] [address] [place] [address] Seam Checker: Con Oseguera MD GFR, Amer 47 mL/min Low >60 [facility] Comment on above: Performed By: #### B MP #### [facility] [address] [place] [address] Seam Checker: Con Oseguera MD GFR,non Amer 39 mL/min Low >60 [facility] Comment on above: Performed By: #### B MP #### [facility] [address] [place] [address] Seam Checker: Con Oseguera MD Glucose [Mass/Vol] 63 mg/dL Low 70-99 [facility] Comment on above: Performed By: #### B MP #### [facility] [address] [place] [address] Seam Checker: Con Oseguera MD Potassium [Moles/Vol] 4.6 mmol/L Normal 3.7-5.3 [facility] Comment on above: Performed By: #### B MP #### [facility] [address] [place] [address] Seam Checker: Con Oseguera MD Protein [Mass/Vol] 6.8 g/dL Normal 6.4-8.3 [facility] Comment on above: Performed By: #### B MP #### [facility] [address] [place] [address] Seam Checker: Con Oseguera MD Sodium [Moles/Vol] 138 mmol/L Normal 135-144 [facility] Comment on above: Performed By: #### B MP #### [facility] [address] [place] [address] Seam Checker: Con Oseguera MD Urea nitrogen [Mass/Vol] 30 mg/dL High 8-23 [facility] Comment on above: Performed By: #### B MP #### [facility] [address] [place] [address] Seam Checker: Con Oseguera MD Albumin/Globulin [Mass ratio] NOT REPORTED Normal 1.0-2.5 [facility] Comment on above: Performed By: #### B MP #### [facility] [address] [place] [address] Seam Checker: Con Oseguera MD BUN/CRE Ratio NOT REPORTED Normal 9-20 [facility] Comment on above: Performed By: #### B MP #### [facility] [address] [place] [address] Seam Checker: Con Oseguera MD Staging: NOT REPORTED Normal [facility] Comment on above: Performed By: #### B MP #### [facility] [address] [place] [address] Seam Checker: Con Oseguera MD Comprehensive Metabolic Pane [facility] 03-07-2019 Albumin [Mass/Vol] 3.8 g/dL 3.5 - 5.2 g/dL [place], [place] Albumin/Globulin [Mass ratio] NOT REPORTED [place] ALP [Catalytic activity/Vol] 166 U/L High 40 - 129 U/L [place] ALT [Catalytic activity/Vol] 28 U/L 5 - 41 U/L [place] Anion gap [Moles/Vol] 12 mmol/L 9 - 17 mmol/L [place] AST [Catalytic activity/Vol] 26 U/L <40 [place] Bilirubin Ql (U) 0.20 mg/dL Low 0.3 - 1.2 mg/dL [place], [place] Bun/Cre Ratio NOT REPORTED [place], [place] Calcium [Mass/Vol] 9.5 mg/dL 8.6 - 10. 4 mg/dL [place] Chloride [Moles/Vol] 98 mmol/L 98 - 107 mmol/L [place] CO2 [Moles/Vol] 28 mmol/L 20 - 31 mmol/L [place] Creatinine [Mass/Vol] 1.7 mg/dL High 0.7 - 1.2 mg/dL [place] GFR 47 mL/min Low >60 [place] GFR Non- 39 mL/min Low >60 [place] GFR/1.73 sq M predicted among non-blacks MDRD (S/P/Bld) [Vol rate/Area] NOT REPORTED [place] GFR/1.73 sq M predicted among non-blacks MDRD (S/P/Bld) [Vol rate/Area] [place] Comment on above: Average GFR for 70 o r more years old: 75 mL/min/1.73sq m Chronic Kidney Disease: <60 mL/min/1.73sq m Kidney failure: <15 mL/min/1.73sq m eGFR calculated using average adult body mass. Additional eGFR calculator available at: http://www.[employer]/multiple_crcl_2011.htm Glucose [Mass/Vol] 63 mg/dL Low 70 - 99 mg/dL [place] Potassium [Moles/Vol] 4.6 mmol/L 3.7 - 5.3 mmol/L [place] Protein [Mass/Vol] 6.8 g/dL 6.4 - 8.3 g/dL [place] Sodium [Moles/Vol] 138 mmol/L 135 - 144 mmol/L [place] Urea nitrogen [Mass/Vol] 30 mg/dL High 8 - 23 mg/dL [place] Lipaseon 03-07-2019 Lipase [Catalytic activity/Vol] 83 U/L High 13-60 [facility] Comment on above: Performed By: #### B MP #### [facility] [address] [place] [address] Seam Checker: Con Oseguera MD Lipase [Catalytic activity/Vol] 83 U/L High 13 - 60 U/L [place] Microscopic Urinalysison Amorphous, UA NOT REPORTED None [place] Bacteria, UA MODERATE Abnormal None [place] Casts UA NOT REPORTED /LPF [place] Crystals UA NOT REPORTED None /HPF [place] Epithelial Cells UA 0 TO 2 /HPF [place] Interpretation and review of laboratory results Abnormal [place] Mucus, UA NOT REPORTED None [place] Other Observations UA NOT REPORTED NOT REQ. [place] RBC (U) [#/Vol] 10 TO 20 /HPF [place] Renal Epithelial, Urine NOT REPORTED 0 /HPF [place] Trichomonas, UA NOT REPORTED None [place], [place] WBC, UA 20 TO 50 /HPF [place] Yeast, UA NOT REPORTED None [place], [place] - [place] Otheron 03-07-2019 Immature granulocytes (Bld) [#/Vol] NOT REPORTED [place] Interpretation and review of laboratory results Abnormal [place] POC Glucose Fingerstickon Glucose [Mass/Vol] 167 mg/dL High 75 - 110 mg/dL [place] Interpretation and review of laboratory results Abnormal [place] Glucose [Mass/Vol] 124 mg/dL High 75 - 110 mg/dL [place] Interpretation and review of laboratory results Abnormal [place] POCT Glucoseon 03-07-2019 Glucose [Mass/Vol] 124 mg/dL [place] Interpretation and review of laboratory results Normal [place] QC OK? y [place] Troponinon 03-07-2019 Troponin I.cardiac [Mass/Vol] 27 ng/L High 0-22 [facility] Comment on above: Result Comment: High Sensitivity Troponin values cannot be compared with other Troponin methodologies. Patients with high levels of Biotin oral intake (i.e >5mg/day) may have falsely decreased Troponin levels. Samples collected within 8 hours of biotin intake may require additional information for diagnosis. Performed By: #### B MP #### [facility] [address] [place] [address] Seam Checker: Con Oseguera MD Troponin I.cardiac [Mass/Vol] 29 ng/L High 0-22 [facility] Comment on above: Result Comment: High Sensitivity Troponin values cannot be compared with other Troponin methodologies. Patients with high levels of Biotin oral intake (i.e >5mg/day) may have falsely decreased Troponin levels. Samples collected within 8 hours of biotin intake may require additional information for diagnosis. Performed By: #### B MP #### [facility] [address] [facility] [place], [place] [id number] Seam Checker: Con Oseguera MD Interpretation and review of laboratory results Abnormal [place] Troponin I.cardiac [Mass/Vol] NOT REPORTED [place] Troponin T.cardiac [Mass/Vol] NOT REPORTED <0.03 ng/mL [place] Troponin, High Sensitivity 27 ng/L High 0 - 22 ng/L [place] Comment on above: High Sensitivity Troponin values cannot be compared with other Troponin methodologies. Patients with high levels of Biotin oral intake (i.e >5mg/day) may have falsely decreased Troponin levels. Samples collected within 8 hours of biotin intake may require additional information for diagnosis. Troponin I.cardiac [Mass/Vol] NOT REPORTED Normal [facility] Comment on above: Performed By: #### B MP #### [facility] [address] [place] [address] Seam Checker: Con Oseguera MD Troponin I.cardiac [Mass/Vol] NOT REPORTED Normal <0.03 [place] Comment on above: Performed By: #### B MP #### [facility] [address] [place] [address] Seam Checker: Con Oseguera MD Interpretation and review of laboratory results Abnormal [place] Troponin T.cardiac [Mass/Vol] NOT REPORTED <0.03 ng/mL [place] Troponin, High Sensitivity 29 ng/L High 0 - 22 ng/L [place] Comment on above: High Sensitivity Troponin values cannot be compared with other Troponin methodologies. Patients with high levels of Biotin oral intake (i.e >5mg/day) may have falsely decreased Troponin levels. Samples collected within 8 hours of biotin intake may require additional information for diagnosis. UA w/Reflex Cultureon 2018 Acetoacetic Acid,Ur Negative Normal NEG [facility] Comment on above: Performed By: #### B MP #### [facility] [address] [place] [address] Seam Checker: Con Oseguera MD Bilirubin, SemiQt,Ur Negative Normal NEG [facility] Comment on above: Performed By: #### B MP #### [facility] [address] [place] [address] Seam Checker: Con Oseguera MD Color (U) YELLOW Normal YEL [facility] Comment on above: Performed By: #### B MP #### [facility] [address] [place] [address] Seam Checker: Con Oseguera MD Glucose Ql (U) Negative Normal NEG [facility] Comment on above: Performed By: #### B MP #### [facility] [address] [place] [address] Seam Checker: Con Oseguera MD Hemoglobin, Ur MOD Abnormal NEG [facility] Comment on above: Performed By: #### B MP #### [facility] [address] [place] [address] Seam Checker: Con Oseguera MD Leukocyte esterase Test strip Ql (U) LARGE Abnormal NEG [facility] Comment on above: Performed By: #### B MP #### [facility] [address] [place] [address] Seam Checker: Con Oseguera MD Nitrite,Ur Negative Normal NEG [facility] Comment on above: Performed By: #### B MP #### [facility] [address] [place] [address] Seam Checker: Con Oseguera MD pH (U) 6.5 [pH] Normal 5.0-8.0 [facility] Comment on above: Performed By: #### B MP #### [facility] [place] [address] Seam Checker: Con Oseguera MD Protein Ql (U) 2+ Abnormal NEG [facility] Comment on above: Performed By: #### B MP #### [facility] [address] [place] [address] Seam Checker: Con Oseguera MD Specific gravity (U) [Rel density] 1.017 Normal 1.000-1.030 [facility] Comment on above: Performed By: #### B MP #### [facility] [address] [place] [address] Seam Checker: Con Oseguera MD Turbidity CLOUDY Abnormal CLEAR [facility] Comment on above: Performed By: #### B MP #### [facility] [address] [place] [address] Seam Checker: Con Oseguera MD Urobilinogen,Ur Normal Normal NORM [facility] Comment on above: Performed By: #### B MP #### [facility] [address] [place] [address] Seam Checker: Con Oseguera MD Comment NOT REPORTED Normal [facility] Comment on above: Performed By: #### B MP #### [facility] [address] [place] [address] Seam Checker: oCn Oseguera MD Urinalysis Reflex to Culture on 03-07-2019 Bilirubin Urine Negative NEGATIVE [facility] [place] Color, UA YELLOW YELLOW [facility] [place] Glucose, Ur Negative NEGATIVE [facility] [place] Interpretation and review of laboratory results Abnormal [facility] [place] Ketones Ql (U) Negative NEGATIVE [facility] [place] Leukocyte esterase Test strip Ql (U) LARGE Abnormal NEGATIVE [facility] [place] Nitrite, Urine Negative NEGATIVE [facility] [place] pH, UA 6.5 [facility] [place], [place] Protein (U) [Mass/Vol] 2+ Abnormal NEGATIVE [facility] [place] Specific [place], UA 1.017 [facility] [place] Turbidity UA CLOUDY Abnormal CLEAR [facility] [place] Urinalysis Comments NOT REPORTED [facility] Urine Hgb MOD Abnormal NEGATIVE [facility] [place] Urobilinogen, Urine Normal Normal [facility] [place] Urinalysis,Microon 9 ----- Normal [facility] Comment on above: Performed By: #### B MP #### [facility] [address] [place] [address] Seam Checker: Con Oseguera MD Bacteria LM.HPF (Urine sed) [#/Area] MODERATE Abnormal NONE [facility] Comment on above: Performed By: #### B MP #### [facility] [address] [place] [address] Seam Checker: Con Oseguera MD Epithelial cells LM.HPF (Urine sed) [#/Area] 0 TO 2 Normal [facility] Comment on above: Performed By: #### B MP #### [facility] [address] [place] [address] Seam Checker: Con Oseguera MD RBC (U) [#/Vol] 10 TO 20 Normal [facility] Comment on above: Performed By: #### B MP #### [facility] [address] [place] [address] Seam Checker: Con Oseguera MD WBC (U) [#/Vol] 20 TO 50 Normal [facility] Comment on above: Performed By: #### B MP #### [facility] [address] [place] [address] Seam Checker: Con Oseguera MD Amorphous sediment LM Ql (Urine sed) NOT REPORTED Normal NONE [facility] Comment on above: Performed By: #### B MP #### [facility] [place] [address] Seam Checker: Con Oseguera MD Casts LM.LPF (Urine sed) [#/Area] NOT REPORTED Normal [facility] Comment on above: Performed By: #### B MP #### [facility] [address] [place] [address] Seam Checker: Con Oseguera MD Crystals LM Nom (Urine sed) NOT REPORTED Normal NONE [facility] Comment on above: Performed By: #### B MP #### [facility] [address] [place] [address] Seam Checker: Con Oseguera MD Epithelial, Renal NOT REPORTED Normal 0 [facility] Comment on above: Performed By: #### B MP #### [facility] [address] [place] [address] Seam Checker: Con Oseguera MD Mucus Strands NOT REPORTED Normal NONE [facility] Comment on above: Performed By: #### B MP #### [facility] [address] [place] [address] Seam Checker: Con Oseguera MD Other Observations NOT REPORTED Normal NREQ [facility] Comment on above: Performed By: #### B MP #### [facility] [address] [place] [address] Seam Checker: Con Oseguera MD Trichomonas NOT REPORTED Normal NONE [facility] Comment on above: Performed By: #### B MP #### [facility] [address] [place] [address] Seam Checker: Con Oseguera MD Yeast LM Ql (Urine sed) NOT REPORTED Normal [facility] Comment on above: Performed By: #### B MP #### [facility] [address] [place] [address] Seam Checker: Con Oseguera MD XR CHEST (2 VW)on [...] Yoni Faye MD 03/07/19 Final result Normal [facility] XR CHEST STANDARD (2 VW)on 0 03-07-2019 Stan, [facility] Incoming Radiant Results From [employer] - 03/07/2019 5:45 PM EDT EXAMINATION: TWO [...] bilaterally. Pneumonia is favored over atypical edema [place] Multifocal airspace disease bilaterally. Pneumonia is favored over atypical edema [place] EXAMINATION: TWO XRA Y VIEWS OF [...] is noted. Small effusions are suggested bilaterally [place] Magnesiumon 12-13-2018 Magnesium [Mass/Vol] 2.1 mg/dL Normal 1.6-2.6 [facility] Comment on above: Performed By: #### B MP #### [facility] [address] [place] [address] Seam Checker: Con Oseguera MD Basic Metabolic Profon 12-11 (cont.) Normal [facility] Comment on above: Result Comment: Aver age GFR for 70 or more years old: 75 mL/min/1.73sq m Chronic Kidney Disease: <60 mL/min/1.73sq m Kidney failure: <15 mL/min/1.73sq m eGFR calculated using average adult body mass. Additional eGFR calculator available at: http://www.[employer]/multiple_crcl_2012.htm Performed By: #### B MP #### [facility] [address] [facility] [place], [place] [id number] Seam Checker: Con Oseguera MD Anion gap [Moles/Vol] 13 mmol/L Normal 9-17 [facility] Comment on above: Performed By: #### B MP #### [facility] [address] [place] [address] Seam Checker: Con Oseguera MD Calcium [Mass/Vol] 8.6 mg/dL Normal 8.6-10.4 [facility] Comment on above: Performed By: #### B MP #### [facility] [address] [place] [address] Seam Checker: Con Oseguera MD Chloride [Moles/Vol] 100 mmol/L Normal 98-107 [facility] Comment on above: Performed By: #### B MP #### [facility] Lab [address] [place] [address] Seam Checker: Con Oseguera MD CO2 [Moles/Vol] 22 mmol/L Normal 20-31 [facility] Comment on above: Performed By: #### B MP #### [facility] Lab [address] [place] [address] Seam Checker: Con Oseguera MD Creatinine [Mass/Vol] 1.02 mg/dL Normal 0.70-1.20 [facility] Comment on above: Performed By: #### B MP #### [facility] Lab [address] [place] [address] Seam Checker: Con Oseguera MD GFR, Amer >60 Normal >60 [facility] Comment on above: Performed By: #### B MP #### [facility] Lab [address] [place] [address] Seam Checker: Con Oseguera MD GFR,non Amer >60 Normal >60 [facility] Comment on above: Performed By: #### B MP #### [facility] Lab [address] [place] [address] Seam Checker: Con Oseguera MD Glucose [Mass/Vol] 151 mg/dL High 70-99 [facility] Comment on above: Performed By: #### B MP #### [facility] Lab [address] [place] [address] Seam Checker: Con Oseguera MD Potassium [Moles/Vol] 4.0 mmol/L Normal 3.7-5.3 [facility] Comment on above: Performed By: #### B MP #### [facility] Lab [address] [place] [address] Seam Checker: Con Oseguera MD Sodium [Moles/Vol] 135 mmol/L Normal 135-144 [facility] Comment on above: Performed By: #### B MP #### [facility] Lab [address] [place] [address] Seam Checker: Con Oseguera MD Urea nitrogen [Mass/Vol] 22 mg/dL Normal 8-23 [facility] Comment on above: Performed By: #### B MP #### [facility] Lab [address] [place] [address] Seam Checker: Con Oseguera MD BUN/CRE Ratio NOT REPORTED Normal 9-20 [facility] Comment on above: Performed By: #### B MP #### [facility] Lab [address] [place] [address] Seam Checker: Con Oseguera MD Staging: NOT REPORTED Normal [facility] Comment on above: Performed By: #### B MP #### [facility] Lab [address] [place] [address] Seam Checker: Con Oseguera MD CBC with Diffon 12-11-2018 Abs. Basophil 0.00 k/uL Normal 0.0-0.2 [facility] Comment on above: Performed By: #### B MP #### [facility] Lab [address] [place] [address] Seam Checker: Con Oseguera MD Abs.Neutrophil (Seg) 9.27 k/uL High 1.3-9.1 [facility] Comment on above: Performed By: #### B MP #### [facility] Lab [facility] [place] [address] Seam Checker: Con Oseguera MD Basophils/100 WBC (Bld) 0 % Normal 0-2 [facility] Comment on above: Performed By: #### B MP #### [facility] Lab [address] [facility] [place] [address] Seam Checker: Con Oseguera MD Eosinophils (Bld) [#/Vol] 0.12 10*3/uL Normal 0.0-0.4 [facility] Comment on above: Performed By: #### B MP #### [facility] Lab [address] [place] [address] Seam Checker: Con Oseguera MD Eosinophils/100 WBC (Bld) 1 % Normal 0-4 [facility] Comment on above: Performed By: #### B MP #### [facility] Lab [facility] [place] [address] Seam Checker: Con Oseguera MD Lymphocytes (Bld) [#/Vol] 1.22 10*3/uL Normal 1.0-4.8 [facility] Comment on above: Performed By: #### B MP #### [facility] Lab [facility] [place] [address] Seam Checker: Con Oseguera MD Lymphocytes/100 WBC (Bld) 10 % Low 24-44 [facility] Comment on above: Performed By: #### B MP #### [facility] Lab [address] [place] [address] Seam Checker: Con Oseguera MD Monocytes (Bld) [#/Vol] 1.59 10*3/uL High 0.1-1.3 [facility] Comment on above: Performed By: #### B MP #### [facility] Lab [address] [place] [address] Seam Checker: Con Oseguera MD Monocytes/100 WBC (Bld) 13 % High 1-7 [facility] Comment on above: Performed By: #### B MP #### [facility] Lab [address] [place] [address] Seam Checker: Con Oseguera MD Morphology Theo (Bld) [Interp] ANISOCYTOSIS PRESENT Normal [facility] Comment on above: Result Comment: MICR OCYTOSIS PRESENT HYPOCHROMIA PRESENT 1+ POLYCHROMASIA 1+ ECHINOCYTES 1+ ELLIPTOCYTES Performed By: #### B MP #### [facility] Lab [address] [place] [address] Seam Checker: Con Oseguera MD Neutrophil (Seg) 76 % High 36-66 [facility] Comment on above: Performed By: #### B MP #### [facility] Lab [facility] [place] [address] Seam Checker: Con Oseguera MD Erythrocyte distribution width (RBC) [Ratio] 18.7 % High 11.5-14.9 [facility] Comment on above: Performed By: #### B MP #### [facility] Lab [address] [place] [address] Seam Checker: Con Oseguera MD Hematocrit (Bld) [Volume fraction] 26.2 % Low 41-53 [facility] Comment on above: Performed By: #### B MP #### [facility] Lab [facility] [place] [address] Seam Checker: Con Oseguera MD Hemoglobin (Bld) [Mass/Vol] 8.1 g/dL Low 13.5-17.5 [facility] Comment on above: Performed By: #### B MP #### [facility] Lab [address] [place] [address] Seam Checker: Con Oseguera MD MCH (RBC) [Entitic mass] 20.5 pg Low 26-34 [facility] Comment on above: Performed By: #### B MP #### [facility] [place] [address] Seam Checker: Con Oseguera MD MCHC (RBC) [Mass/Vol] 30.9 g/dL Low 31-37 [facility] Comment on above: Performed By: #### B MP #### [facility] Lab [facility] [place] [address] Seam Checker: Con Oseguera MD MCV (RBC) [Entitic vol] 66.4 fL Low 80-100 [facility] Comment on above: Performed By: #### B MP #### [facility] [place] [address] Seam Checker: Con Oseguera MD Platelet mean volume (Bld) [Entitic vol] 9.3 fL Normal 6.0-12.0 [facility] Comment on above: Performed By: #### B MP #### [facility] Lab [address] [place] [address] Seam Checker: Con Oseguera MD Platelets (Bld) [#/Vol] 234 10*3/uL Normal 150-450 [facility] Comment on above: Performed By: #### B MP #### [facility] Lab [facility] [place] [address] Seam Checker: Con Oseguera MD RBC (Bld) [#/Vol] 3.94 10*6/uL Low 4.5-5.9 [facility] Comment on above: Performed By: #### B MP #### [facility] [place] [address] Seam Checker: Con Oseguera MD WBC (Bld) [#/Vol] 12.2 10*3/uL High 3.5-11.0 [facility] Comment on above: Performed By: #### B MP #### [facility] Lab [address] [place] [address] Seam Checker: Con Oseguera MD Abs.Imm.Granulocyte NOT REPORTED Normal 0.00-0.30 [facility] Comment on above: Performed By: #### B MP #### [facility] Lab [address] [place] [address] Seam Checker: Con Oseguera MD Auto Diff Performed NOT REPORTED Normal [facility] Comment on above: Performed By: #### B MP #### [facility] Lab [address] [place] [address] Seam Checker: Con Oseguera MD Immature granulocytes (Bld) [#/Vol] NOT REPORTED Normal 0 [facility] Comment on above: Performed By: #### B MP #### [facility] Lab [address] [place] [address] Seam Checker: Con Oseguera MD NRBC Automated NOT REPORTED Normal [facility] Comment on above: Performed By: #### B MP #### [facility] Lab [address] [place] [address] Seam Checker: Con Oseguera MD Platelets (Bld) [#/Vol] NOT REPORTED Normal [facility] Comment on above: Performed By: #### B MP #### [facility] Lab [address] [place] [address] Seam Checker: Con Oseguera MD RBC morphology finding Nom (Bld) NOT REPORTED Normal [facility] Comment on above: Performed By: #### B MP #### [facility] Lab [address] [place] [address] Seam Checker: Con Oseguera MD WBC Morphology NOT REPORTED Normal [facility] Comment on above: Performed By: #### B MP #### [facility] Lab [address] [place] [address] Seam Checker: Con Oseguera MD Brain Natri. Peptideon 12-10 Natriuretic peptide B (Bld) [Mass/Vol] 1543 pg/mL High <300 [facility] Comment on above: Result Comment: Pro- BNP results cannot be compared to BNP results. Performed By: #### R EJEC, LIP, TROPI, CP, DIGC, BNP ####[facility] [address] [place] [address] Lab Director: Con Oseguera MD Natriuretic peptide B (Bld) [Mass/Vol] Pro-BNP Reference Range: Normal [facility] Comment on above: Result Comment: Rule Out: <300 Miranda Zone: Age <50 300-450 Age 50-75 300-900 Age >75 300-1800 Usually represents mild to moderate HF but other cardiopulmonary causes cannot be ruled out. Rule In: Age <50 >450 Age 50-75 >900 Age >75 >1800 Performed By: #### R EJEC, LIP, TROPI, CP, DIGC, BNP ####[facility] [address] [place] [address] Lab Director: Con Oseguera MD CBC with Diffon 12-10-2018 Abs. Basophil 0.00 k/uL Normal 0.0-0.2 [facility] Comment on above: Performed By: #### P T, CDP ####[facility] [address] [place] [address] Lab Director: Con Oseguera MD Abs.Neutrophil (Seg) 10.73 k/uL High 1.3-9.1 [facility] Comment on above: Performed By: #### P T, CDP ####[facility] [address], [place] [phone] Director: Con Oseguera MD Basophils/100 WBC (Bld) 0 % Normal 0-2 [facility] Comment on above: Performed By: #### P T, CDP ####[facility] [address], [place] [phone] Director: Con Oseguera MD Eosinophils (Bld) [#/Vol] 0.13 10*3/uL Normal 0.0-0.4 [facility] Comment on above: Performed By: #### P T, CDP ####[facility] [address], [place] [phone] Director: Con Oseguera MD Eosinophils/100 WBC (Bld) 1 % Normal 0-4 [facility] Comment on above: Performed By: #### P T, CDP ####[facility] [address], [place] [phone] Director: Con Oseguera MD Lymphocytes (Bld) [#/Vol] 1.07 10*3/uL Normal 1.0-4.8 [facility] Comment on above: Performed By: #### P T, CDP ####[facility] [address], [place] [phone] Director: Con Oseguera MD Lymphocytes/100 WBC (Bld) 8 % Low 24-44 [facility] Comment on above: Performed By: #### P T, CDP ####[facility] [address] [place] [address] Lab Director: Con Oseguera MD Monocytes (Bld) [#/Vol] 1.47 10*3/uL High 0.1-1.3 [facility] Comment on above: Performed By: #### P T, CDP ####[facility] [address], [place] [phone] Director: Con Oseguera MD Monocytes/100 WBC (Bld) 11 % High 1-7 [facility] Comment on above: Performed By: #### P T, CDP ####[facility] [address], [place] [phone] Director: Con Oseguera MD Morphology Theo (Bld) [Interp] ANISOCYTOSIS PRESENT Normal [facility] Comment on above: Result Comment: HYPO CHROMIA PRESENT MICROCYTOSIS PRESENT 1+ ELLIPTOCYTES FEW ECHINOCYTES Performed By: #### P T, CDP ####[facility] [address], [place] [phone] Director: Con Oseguera MD Neutrophil (Seg) 80 % High 36-66 [facility] Comment on above: Performed By: #### P T, CDP ####[facility] [address], [place] [phone] Director: Con Oseguera MD Erythrocyte distribution width (RBC) [Ratio] 19.0 % High 11.5-14.9 [facility] Comment on above: Performed By: #### P T, CDP ####[facility] [address], [place] [phone] Director: Con Oseguera MD Hematocrit (Bld) [Volume fraction] 28.3 % Low 41-53 [facility] Comment on above: Performed By: #### P T, CDP ####[facility] [address], [place] [phone] Director: Con Oseguera MD Hemoglobin (Bld) [Mass/Vol] 8.7 g/dL Low 13.5-17.5 [facility] Comment on above: Performed By: #### P T, CDP ####[facility] [address] [place] [address] Lab Director: Con Oseguera MD MCH (RBC) [Entitic mass] 20.6 pg Low 26-34 [facility] Comment on above: Performed By: #### P T, CDP ####[facility] [address], [place] [phone] Director: Con Oseguera MD MCHC (RBC) [Mass/Vol] 30.7 g/dL Low 31-37 [facility] Comment on above: Performed By: #### P T, CDP ####[facility] [address], [place] [phone] Director: Con Oseguera MD MCV (RBC) [Entitic vol] 67.1 fL Low 80-100 [facility] Comment on above: Performed By: #### P T, CDP ####[facility] [address] [facility], [place] [phone] Director: Con Oseguera MD Platelet mean volume (Bld) [Entitic vol] 9.0 fL Normal 6.0-12.0 [facility] Comment on above: Performed By: #### P T, CDP ####[facility] [address], [place] [phone] Director: Con Oseguera MD Platelets (Bld) [#/Vol] 249 10*3/uL Normal 150-450 [facility] Comment on above: Performed By: #### P T, CDP ####[facility] [address] [place] [address] Lab Director: Con Oseguera MD RBC (Bld) [#/Vol] 4.22 10*6/uL Low 4.5-5.9 [facility] Comment on above: Performed By: #### P T, CDP ####[facility] [address] [place] [address] Lab Director: Con Oseguera MD WBC (Bld) [#/Vol] 13.4 10*3/uL High 3.5-11.0 [facility] Comment on above: Performed By: #### P T, CDP ####[facility] [address] [place] [address] Lab Director: Con Oseguera MD Abs.Imm.Granulocyte NOT REPORTED Normal 0.00-0.30 [facility] Comment on above: Performed By: #### P T, CDP ####[facility] [address] [place] [address].[place], [place] [address])[phone] Director: Con Oseguera MD Auto Diff Performed NOT REPORTED Normal [facility] Comment on above: Performed By: #### P T, CDP ####[facility] [address] [place] [address] Lab Director: Con Oseguera MD Immature granulocytes (Bld) [#/Vol] NOT REPORTED Normal 0 [facility] Comment on above: Performed By: #### P T, CDP ####[facility] [address] [place] [address].[place] [address] Lab Director: Con Oseguera MD NRBC Automated NOT REPORTED Normal [facility] Comment on above: Performed By: #### P T, CDP ####[facility] [address] [place] [address].[place] [address] Lab Director: Con Oseguera MD Platelets (Bld) [#/Vol] NOT REPORTED Normal [facility] Comment on above: Performed By: #### P T, CDP ####[facility] [address] [place] [address] Lab Director: Con Oseguera MD RBC morphology finding Nom (Bld) NOT REPORTED Normal [facility] Comment on above: Performed By: #### P T, CDP ####[facility] [address] [place] [address] Lab Director: Con Oseguera MD WBC Morphology NOT REPORTED Normal [facility] Comment on above: Performed By: #### P T, CDP ####[facility] [address] [place] [address] lab Director: Con Oseguera MD CT ABDOMEN [...] Sawyer Jr., DO 12/10/18 Final result Normal [facility] Comp Metabolic Profon 2018 (cont.) Normal [facility] Comment on above: Result Comment: Aver age GFR for 70 or more years old: 75 mL/min/1.73sq m Chronic Kidney Disease: <60 mL/min/1.73sq m Kidney failure: <15 mL/min/1.73sq m eGFR calculated using average adult body mass. Additional eGFR calculator available at: http://www.[employer]/multiple_crcl_2012.htm Performed By: #### R EJEC, LIP, TROPI, CP, DIGC, BNP ####[facility] [address] [place] [address] [facility] Director: Con Oseguera MD Alkaline Phos 125 U/L Normal 40-129 [facility] Comment on above: Result Comment: SPEC IMEN SLIGHTLY HEMOLYZED, RESULTS MAY BE ADVERSELY AFFECTED. Performed By: #### R EJEC, LIP, TROPI, CP, DIGC, BNP ####[facility] [address] [place] [address] lab Director: Con Oseguera MD ALT [Catalytic activity/Vol] 15 U/L Normal 5-41 [facility] Comment on above: Result Comment: SPEC IMEN SLIGHTLY HEMOLYZED, RESULTS MAY BE ADVERSELY AFFECTED. Performed By: #### R EJEC, LIP, TROPI, CP, DIGC, BNP ####[facility] [address] [place] [address] Lab Director: Con Oseguera MD Anion gap [Moles/Vol] 17 mmol/L Normal 9-17 [facility] Comment on above: Performed By: #### R EJEC, LIP, TROPI, CP, DIGC, BNP ####[facility] [address] [place] [address] Lab Director: Con Oseguera MD AST [Catalytic activity/Vol] 28 U/L Normal <40 [facility] Comment on above: Result Comment: SPEC IMEN SLIGHTLY HEMOLYZED, RESULTS MAY BE ADVERSELY AFFECTED. Performed By: #### R EJEC, LIP, TROPI, CP, DIGC, BNP ####[facility] [address] [place] [address] Lab Director: Con Oseguera MD Bilirubin Ql (U) 0.51 mg/dL Normal 0.3-1.2 [facility] Comment on above: Result Comment: SPEC IMEN SLIGHTLY HEMOLYZED, RESULTS MAY BE ADVERSELY AFFECTED. Performed By: #### R EJEC, LIP, TROPI, CP, DIGC, BNP ####[facility] [address] [place] [address] Lab Director: Con Oseguera MD Calcium [Mass/Vol] 9.1 mg/dL Normal 8.6-10.4 [facility] Comment on above: Result Comment: SPEC IMEN SLIGHTLY HEMOLYZED, RESULTS MAY BE ADVERSELY AFFECTED. Performed By: #### R EJEC, LIP, TROPI, CP, DIGC, BNP ####[facility] [address] [place] [address] Lab Director: Con Oseguera MD GFR, Amer >60 Normal >60 [facility] Comment on above: Performed By: #### R EJEC, LIP, TROPI, CP, DIGC, BNP ####[facility] [address] [place] [address] Lab Director: Con Oseguera MD GFR,non Amer >60 Normal >60 [facility] Comment on above: Performed By: #### R EJEC, LIP, TROPI, CP, DIGC, BNP ####[facility] [address] [place] [address] Lab Director: Con Oseguera MD Potassium [Moles/Vol] 4.8 mmol/L Normal 3.7-5.3 [facility] Comment on above: Result Comment: SPEC IMEN SLIGHTLY HEMOLYZED, RESULTS MAY BE ADVERSELY AFFECTED. Performed By: #### R EJEC, LIP, TROPI, CP, DIGC, BNP ####[facility] [address] [place] [address] Lab Director: Con Oseguera MD Protein [Mass/Vol] 6.9 g/dL Normal 6.4-8.3 [facility] Comment on above: Result Comment: SPEC IMEN SLIGHTLY HEMOLYZED, RESULTS MAY BE ADVERSELY AFFECTED. Performed By: #### R EJEC, LIP, TROPI, CP, DIGC, BNP ####[facility] [address] [place] [address] Lab Director: Con Oseguera MD Sodium [Moles/Vol] 134 mmol/L Low 135-144 [facility] Comment on above: Result Comment: SPEC IMEN SLIGHTLY HEMOLYZED, RESULTS MAY BE ADVERSELY AFFECTED. Performed By: #### R EJEC, LIP, TROPI, CP, DIGC, BNP ####[facility] [address] [place] [address] Lab Director: Con Oseguera MD Albumin [Mass/Vol] 4.1 g/dL Normal 3.5-5.2 [facility] Comment on above: Performed By: #### R EJEC, LIP, TROPI, CP, DIGC, BNP ####[facility] [address] [place] [address] Lab Director: Con Oseguera MD Chloride [Moles/Vol] 99 mmol/L Normal 98-107 [facility] Comment on above: Performed By: #### R EJEC, LIP, TROPI, CP, DIGC, BNP ####[facility] [address] [place] [address] lab Director: Con Oseguera MD CO2 [Moles/Vol] 18 mmol/L Low 20-31 [facility] Comment on above: Performed By: #### R EJEC, LIP, TROPI, CP, DIGC, BNP ####[facility] [id number] [place] [address] lab Director: Con Oseguera MD Creatinine [Mass/Vol] 0.98 mg/dL Normal 0.70-1.20 [facility] Comment on above: Performed By: #### R EJEC, LIP, TROPI, CP, DIGC, BNP ####[facility] [address] [place] [address] lab Director: Con Oseguera MD Glucose [Mass/Vol] 148 mg/dL High 70-99 [facility] Comment on above: Performed By: #### R EJEC, LIP, TROPI, CP, DIGC, BNP ####[facility] [address] [place] [address] lab Director: Con Oseguera MD Urea nitrogen [Mass/Vol] 24 mg/dL High 8-23 [facility] Comment on above: Performed By: #### R EJEC, LIP, TROPI, CP, DIGC, BNP ####[facility] [address] [place] [address] lab Director: Con Oseguera MD Albumin/Globulin [Mass ratio] NOT REPORTED Normal 1.0-2.5 [facility] Comment on above: Performed By: #### R EJEC, LIP, TROPI, CP, DIGC, BNP ####[facility] [address] [place] [address] Lab Director: Con Oseguera MD BUN/CRE Ratio NOT REPORTED Normal 9-20 [facility] Comment on above: Performed By: #### R EJEC, LIP, TROPI, CP, DIGC, BNP ####[facility] [address] [place] [address] Lab Director: Con Oseguera MD Staging: NOT REPORTED Normal [facility] Comment on above: Performed By: #### R EJEC, LIP, TROPI, CP, DIGC, BNP ####[facility] [id number] [place] [address] Lab Director: Con Oseguera MD Digoxinon 12-10-2018 Digoxin [Mass/Vol] ng/mL Low 0.5-2.0 [facility] Comment on above: Result Comment: Digoxin Reference Range: Heart Failure 0.5-0.9 Atrial Fibrillation 0.8-2.0 Performed By: #### R EJEC, LIP, TROPI, CP, DIGC, BNP ####[facility] [id number] [place] [address] Lab Director: Con Oseguera MD Digoxin [Mass/Vol] UNKNOWN Normal [facility] Comment on above: Performed By: #### R EJEC, LIP, TROPI, CP, DIGC, BNP ####[facility] [address] [place] [address] Lab Director: Con Oseguera MD Lipaseon 12-10-2018 Lipase [Catalytic activity/Vol] 48 U/L Normal 13-60 [facility] Comment on above: Result Comment: SPEC IMEN SLIGHTLY HEMOLYZED, RESULTS MAY BE ADVERSELY AFFECTED. Performed By: #### B MP #### [facility] Lab [address] [place] [address] Seam Checker: Con Oseguera MD PTon 12-10-2018 INR Coag (PPP) [Relative time] 1.3 {INR} Normal [facility] Comment on above: Result Comment: Non-therapeutic Range: INR = 0.9-1.2 Therapeutic Range: Moderate Anticoagulant Intensity: INR = 2.0-3.0 High Anticoagulant Intensity: INR = 2.5-3.5 Performed By: #### P T, CDP ####[facility] [id number] [place] [address] Lab Director: Con Oseguera MD PT Coag (PPP) [Time] 16.5 s High 11.8-14.6 [facility] Comment on above: Performed By: #### P T, CDP ####[facility] [id number] [place] [address] Lab Director: Con Oseguera MD Specimen Rejectionon 019 Reason for rejection Unable to perform testing: Specimen clotted. Normal [facility] Comment on above: Performed By: #### B MP #### [facility] Lab [address] [place] [address] Seam Checker: Con Oseguera MD Source of sample .BLOOD Normal [facility] Comment on above: Performed By: #### B MP #### [facility] Lab [address] [place] [address] Seam Checker: Con Oseguera MD Test ordered CDP Normal [facility] Comment on above: Performed By: #### B MP #### [facility] Lab [address] [place] [address] Seam Checker: Con Oseguera MD ----- NOT REPORTED Normal [facility] Comment on above: Performed By: #### B MP #### [facility] Lab [address] [place] [address] Seam Checker: Con Oseguera MD Troponinon 12-10-2018 Troponin I.cardiac [Mass/Vol] 28 ng/L High 0-22 [facility] Comment on above: Result Comment: High Sensitivity Troponin values cannot be compared with other Troponin methodologies. Patients with high levels of Biotin oral intake (i.e >5mg/day) may have falsely decreased Troponin levels. Samples collected within 8 hours of biotin intake may require additional information for diagnosis. Performed By: #### T ROPI ####[facility] [address] [place] [address] Lab Director: Con Oseguera MD Troponin I.cardiac [Mass/Vol] NOT REPORTED Normal [facility] Comment on above: Performed By: #### T ROPI ####[facility] [address] [place] [address] Lab Director: Con Oseguera MD Troponin I.cardiac [Mass/Vol] 30 ng/L [facility] 0-22 [facility] Comment on above: Result Comment: High Sensitivity [...] R EJEC, LIP, TROPI, CP, DIGC, BNP ####[facility] [id number] [place] [address] Lab Director: Con Oseguera MD Troponin I.cardiac [Mass/Vol] NOT REPORTED Normal [facility] Comment on above: Performed By: #### R EJEC, LIP, TROPI, CP, DIGC, BNP ####[facility] [address] [place] [address] Lab Director: Con Oseguera MD Urinalysis, Routineon 2018 Acetoacetic Acid,Ur Negative Normal NEG [facility] Comment on above: Performed By: #### U A ####[facility] [address] [place] [address] Lab Director: Con Oseguera MD Bilirubin, SemiQt,Ur Negative Normal NEG [facility] Comment on above: Performed By: #### U A ####[facility] [address], [place] [phone] Director: Con Oseguera MD Color (U) YELLOW Normal YEL [facility] Comment on above: Performed By: #### U A ####[facility] [id number] [facility], [place] [phone] Director: Con Oseguera MD Comment Microscopic exam not performed based on chemical results unless requested in Normal [facility] Comment on above: Result Comment: orig inal order. Performed By: #### U A ####[facility] [id number] [facility], [place] [phone] Director: Con Oseguera MD Glucose Ql (U) Negative Normal NEG [facility] Comment on above: Performed By: #### U A ####[facility] [address] [facility] [place] [phone] Director: Con Oseguera MD Hemoglobin, Ur Negative Normal NEG [facility] Comment on above: Performed By: #### U A ####[facility] [address] [place] [address] Lab Director: Con Oseguera MD Leukocyte esterase Test strip Ql (U) Negative Normal NEG [facility] Comment on above: Performed By: #### U A ####[facility] [address] [place] [address] lab Director: Con Oseguera MD Nitrite,Ur Negative Normal NEG [facility] Comment on above: Performed By: #### U A ####[facility] [address] [place] [address] lab Director: Con Oseguera MD pH (U) 5.0 [pH] Normal 5.0-8.0 [facility] Comment on above: Performed By: #### U A ####[facility] [address] [place] [address] lab Director: Con Oseguera MD Protein Ql (U) Negative Normal NEG [facility] Comment on above: Performed By: #### U A ####[facility] [address] [facility], [place] [address])[phone] Director: Con Oseguera MD Specific gravity (U) [Rel density] 1.013 Normal 1.000-1.030 [facility] Comment on above: Performed By: #### U A ####[facility] [address] [place] [address] lab Director: Con Oseguera MD Turbidity CLEAR Normal CLEAR [facility] Comment on above: Performed By: #### U A ####[facility] [address] [place] [address] lab Director: Con Oseguera MD Urobilinogen,Ur Normal Normal NORM [facility] Comment on above: Performed By: #### U A ####[facility] [address] [facility], [place] [address])[phone] Director: Con Oseguera MD XR CHEST (2 [...] Sawyer Jr., DO 12/10/18 Final result Normal [facility] Basic Metabolic Profon 11-03 (cont.) Normal [facility] Comment on above: Result Comment: Aver age GFR for 70 or more years old: 75 mL/min/1.73sq m Chronic Kidney Disease: <60 mL/min/1.73sq m Kidney failure: <15 mL/min/1.73sq m eGFR calculated using average adult body mass. Additional eGFR calculator available at: http://www.Limeade/multiple_crcl_2012.htm Performed By: #### B MP #### [facility] [address] [place] [address] Seam Checker: Con Oseguera MD Anion gap [Moles/Vol] 15 mmol/L Normal 9-17 [facility] Comment on above: Performed By: #### B MP #### [facility] Lab [address] [place] [address] Seam Checker: Con Oseguera MD Calcium [Mass/Vol] 8.9 mg/dL Normal 8.6-10.4 [facility] Comment on above: Performed By: #### B MP #### [facility] Lab [address] [place] [address] Seam Checker: Cno Oseguera MD Chloride [Moles/Vol] 100 mmol/L Normal 98-107 [facility] Comment on above: Performed By: #### B MP #### [facility] Lab [address] [place] [address] Seam Checker: Con Oseguera MD CO2 [Moles/Vol] 21 mmol/L Normal 20-31 [facility] Comment on above: Performed By: #### B MP #### [facility] Lab [address] [place] [address] Seam Checker: Con Oseguera MD Creatinine [Mass/Vol] 1.17 mg/dL Normal 0.70-1.20 [facility] Comment on above: Performed By: #### B MP #### [facility] Lab [address] [place] [address] Seam Checker: Con Oseguera MD GFR, Amer >60 Normal >60 [facility] Comment on above: Performed By: #### B MP #### [facility] Lab [address] [place] [address] Seam Checker: Con Oseguera MD GFR,non Amer 60 mL/min Low >60 [facility] Comment on above: Performed By: #### B MP #### [facility] Lab [address] [place] [address] Seam Checker: Con Oseguera MD Glucose [Mass/Vol] 231 mg/dL High 70-99 [facility] Comment on above: Performed By: #### B MP #### [facility] Lab [address] [place] [address] Seam Checker: Con Oseguera MD Potassium [Moles/Vol] 4.0 mmol/L Normal 3.7-5.3 [facility] Comment on above: Performed By: #### B MP #### [facility] Lab [address] [place] [address] Seam Checker: Con Oseguera MD Sodium [Moles/Vol] 136 mmol/L Normal 135-144 [facility] Comment on above: Performed By: #### B MP #### [facility] Lab [address] [place] [address] Seam Checker: Con Oseguera MD Urea nitrogen [Mass/Vol] 27 mg/dL High 8-23 [facility] Comment on above: Performed By: #### B MP #### [facility] Lab [address] [place] [address] Seam Checker: Con Oseguera MD BUN/CRE Ratio NOT REPORTED Normal 9- [facility] Comment on above: Performed By: #### B MP #### [facility] Lab [address] [place] [address] Seam Checker: Con Oseguera MD Staging: NOT REPORTED Normal [facility] Comment on above: Performed By: #### B MP #### [facility] Lab [address] [place] [address] Seam Checker: Con Oseguera MD T3, Freeon 11-03-2018 Free T3 [Mass/Vol] 2.64 pg/mL Normal 2.02-4.43 [facility] Comment on above: Performed By: #### B MP #### [facility] Lab [address] [place] [address] Seam Checker: Con Oseguera MD Thyroid Stim. Horm.on 2018 TSH Qn 5.66 m[IU]/L High 0.30-5.00 [facility] Comment on above: Performed By: #### B MP #### [facility] Lab [address] [place] [address] Seam Checker: Con Oseguera MD Thyroxine, Freeon 11-03-2018 Thyroxine, Free 0.92 ng/dL Low 0.93-1.70 [facility] Comment on above: Performed By: #### B MP #### [facility] Lab [address] [place] [address] Seam Checker: Con Oseguera MD Basic Metabolic Profon 10-23 (cont.) Normal [facility] Comment on above: Result Comment: Aver age GFR for 70 or more years old: 75 mL/min/1.73sq m Chronic Kidney Disease: <60 mL/min/1.73sq m Kidney failure: <15 mL/min/1.73sq m eGFR calculated using average adult body mass. Additional eGFR calculator available at: http://www.Limeade/multiple_crcl_2012.htm Performed By: #### B MP #### [facility] Lab [address] [place] [address] Seam Checker: Con Oseguera MD Anion gap [Moles/Vol] 14 mmol/L Normal 9-17 [facility] Comment on above: Performed By: #### B MP #### [facility] Lab [address] [place] [address] Seam Checker: Con Oseguera MD Calcium [Mass/Vol] 9.3 mg/dL Normal 8.6-10.4 [facility] Comment on above: Performed By: #### B MP #### [facility] Lab [address] [place] [address] Seam Checker: Con Oseguera MD Chloride [Moles/Vol] 100 mmol/L Normal 98-107 [facility] Comment on above: Performed By: #### B MP #### [facility] Lab [address] [place] [address] Seam Checker: Con Oseguera MD CO2 [Moles/Vol] 22 mmol/L Normal 20-31 [facility] Comment on above: Performed By: #### B MP #### [facility] Lab [address] [place] [address] Seam Checker: Con Oseguera MD Creatinine [Mass/Vol] 2.03 mg/dL High 0.70-1.20 [facility] Comment on above: Performed By: #### B MP #### [facility] Lab [address] [place] [address] Seam Checker: Con Oseguera MD GFR, Amer 38 mL/min Low >60 [facility] Comment on above: Performed By: #### B MP #### [facility] Lab [address] [place] [address] Seam Checker: Con Oseguera MD GFR,non Amer 32 mL/min Low >60 [facility] Comment on above: Performed By: #### B MP #### [facility] Lab [address] [place] [address] Seam Checker: Con Oseguera MD Glucose [Mass/Vol] 286 mg/dL High 70-99 [facility] Comment on above: Performed By: #### B MP #### [facility] [address] [place] [address] Seam Checker: Con Oseguera MD Potassium [Moles/Vol] 5.2 mmol/L Normal 3.7-5.3 [facility] Comment on above: Performed By: #### B MP #### [facility] Lab [address] [place] [address] Seam Checker: Con Oseguera MD Sodium [Moles/Vol] 136 mmol/L Normal 135-144 [facility] Comment on above: Performed By: #### B MP #### [facility] Lab [address] [place] [address] Seam Checker: Con Oseguera MD Urea nitrogen [Mass/Vol] 51 mg/dL High 8-23 [facility] Comment on above: Performed By: #### B MP #### [facility] Lab [address] [place] [address] Seam Checker: Con Oseguera MD BUN/CRE Ratio NOT REPORTED Normal 9-20 [facility] Comment on above: Performed By: #### B MP #### [facility] Lab [facility] [place] [address] Seam Checker: Con Oseguera MD Staging: NOT REPORTED Normal [facility] Comment on above: Performed By: #### B MP #### [facility] Lab [facility] [place] [address] Seam Checker: Con Oseguera MD CBC with Diffon 10-23-2018 Abs. Basophil 0.09 k/uL Normal 0.0-0.2 [facility] Comment on above: Performed By: #### B MP #### [facility] Lab [address] [place] [address] Seam Checker: Con Oseguera MD Abs.Neutrophil (Seg) 6.45 k/uL Normal 1.3-9.1 [facility] Comment on above: Performed By: #### B MP #### [facility] Lab [facility] [place] [address] Seam Checker: Con Oseguera MD Basophils/100 WBC (Bld) 1 % Normal 0-2 [facility] Comment on above: Performed By: #### B MP #### [facility] Lab [address] [place] [address]. [place] [address] Seam Checker: Con Oseguera MD Eosinophils (Bld) [#/Vol] 0.17 10*3/uL Normal 0.0-0.4 [facility] Comment on above: Performed By: #### B MP #### [facility] Lab [facility] [place] [address] Seam Checker: Con Oseguera MD Eosinophils/100 WBC (Bld) 2 % Normal 0-4 [facility] Comment on above: Performed By: #### B MP #### [facility] Lab [address] [place] [address] Seam Checker: Con Oseguera MD Lymphocytes (Bld) [#/Vol] 1.19 10*3/uL Normal 1.0-4.8 [facility] Comment on above: Performed By: #### B MP #### [facility] Lab [address] [place] [address] Seam Checker: Con Oseguera MD Lymphocytes/100 WBC (Bld) 14 % Low 24-44 [facility] Comment on above: Performed By: #### B MP #### [facility] Lab [facility] [place] [address] Seam Checker: Con Oseguera MD Monocytes (Bld) [#/Vol] 0.60 10*3/uL Normal 0.1-1.3 [facility] Comment on above: Performed By: #### B MP #### [facility] Lab [address] [place] [address] Seam Checker: Con Oseguera MD Monocytes/100 WBC (Bld) 7 % Normal 1-7 [facility] Comment on above: Performed By: #### B MP #### [facility] Lab [facility] [place] [address] Seam Checker: Con Oseguera MD Morphology Theo (Bld) [Interp] ANISOCYTOSIS PRESENT Normal [facility] Comment on above: Result Comment: HYPO CHROMIA PRESENT MICROCYTOSIS PRESENT 1+ ELLIPTOCYTES 1+ ECHINOCYTES Performed By: #### B MP #### [facility] Lab [facility] [place] [address] Seam Checker: Con Oseguera MD Neutrophil (Seg) 76 % High 36-66 [facility] Comment on above: Performed By: #### B MP #### [facility] Lab [address] [place] [address] Seam Checker: Con Oseguera MD Erythrocyte distribution width (RBC) [Ratio] 21.6 % High 11.5-14.9 [facility] Comment on above: Performed By: #### B MP #### [facility] Lab [address] [place] [address] Seam Checker: Con Oseguera MD Hematocrit (Bld) [Volume fraction] 27.3 % Low 41-53 [facility] Comment on above: Performed By: #### B MP #### [facility] Lab [facility] [place] [address] Seam Checker: Con Oseguera MD Hemoglobin (Bld) [Mass/Vol] 8.5 g/dL Low 13.5-17.5 [facility] Comment on above: Performed By: #### B MP #### [facility] Lab [address] [place] [address] Seam Checker: Con Oseguera MD MCH (RBC) [Entitic mass] 21.1 pg Low 26-34 [facility] Comment on above: Performed By: #### B MP #### [facility] Lab [facility] [place] [address] Seam Checker: Con Oseguera MD MCHC (RBC) [Mass/Vol] 30.9 g/dL Low 31-37 [facility] Comment on above: Performed By: #### B MP #### [facility] Lab [address] [place] [address] Seam Checker: Con Oseguera MD MCV (RBC) [Entitic vol] 68.3 fL Low 80-100 [facility] Comment on above: Performed By: #### B MP #### [facility] Lab [facility] [place] [address] Seam Checker: Con Oseguera MD Platelet mean volume (Bld) [Entitic vol] 9.5 fL Normal 6.0-12.0 [facility] Comment on above: Performed By: #### B MP #### [facility] Lab [address] [place] [address] Seam Checker: Con Oseguera MD Platelets (Bld) [#/Vol] 300 10*3/uL Normal 150-450 [facility] Comment on above: Performed By: #### B MP #### [facility] [address] [place] [address] Seam Checker: Con Oseguera MD RBC (Bld) [#/Vol] 4.00 10*6/uL Low 4.5-5.9 [facility] Comment on above: Performed By: #### B MP #### [facility] Lab [facility] [place] [address] Seam Checker: Con Oseguera MD WBC (Bld) [#/Vol] 8.5 10*3/uL Normal 3.5-11.0 [facility] Comment on above: Performed By: #### B MP #### [facility] Lab [facility] [place] [address] Seam Checker: Con Oseguera MD Abs.Imm.Granulocyte NOT REPORTED Normal 0.00-0.30 [facility] [facility] Comment on above: Performed By: #### B MP #### [facility] [place] [address] Seam Checker: Con Oseguera MD Auto Diff Performed NOT REPORTED Normal [facility] Comment on above: Performed By: #### B MP #### [facility] [place] [address] Seam Checker: Con Oseguera MD Immature granulocytes (Bld) [#/Vol] NOT REPORTED Normal 0 [facility] Comment on above: Performed By: #### B MP #### [facility] [address] [place] [address] Seam Checker: Con Oseguera MD NRBC Automated NOT REPORTED Normal [facility] Comment on above: Performed By: #### B MP #### [facility] [address] [place] [address] Seam Checker: Con Oseguera MD Platelets (Bld) [#/Vol] NOT REPORTED Normal [facility] Comment on above: Performed By: #### B MP #### [facility] [address] [place] [address] Seam Checker: Con Oseguera MD RBC morphology finding Nom (Bld) NOT REPORTED Normal [facility] Comment on above: Performed By: #### B MP #### [facility] [address] [place] [address] Seam Checker: Con Oseguera MD WBC Morphology NOT REPORTED Normal [facility] Comment on above: Performed By: #### B MP #### [facility] [address] [place] [address] Seam Checker: Con Oseguera MD Comp Metabolic Profon 2018 (cont.) Normal [facility] Comment on above: Result Comment: Aver age GFR for 70 or more years old: 75 mL/min/1.73sq m Chronic Kidney Disease: <60 mL/min/1.73sq m Kidney failure: <15 mL/min/1.73sq m eGFR calculated using average adult body mass. Additional eGFR calculator available at: http://www.[employer].com/multiple_crcl_2012.htm Performed By: #### C P, MG, CB, CDP #### [facility] [address] [place] [address] Seam Checker: Con Oseguera MD Albumin [Mass/Vol] 3.9 g/dL Normal 3.5-5.2 [facility] Comment on above: Performed By: #### C P, MG, CB, CDP #### [facility] [address] [place] [address] Seam Checker: Con Oseguera MD Alkaline Phos 90 U/L Normal 40-129 [facility] Comment on above: Performed By: #### C P, MG, CB, CDP #### [facility] [address] [place] [address] Seam Checker: Con Oseguera MD ALT [Catalytic activity/Vol] 18 U/L Normal 5-41 [facility] Comment on above: Performed By: #### C P, MG, CB, CDP #### [facility] [address] [address] Seam Checker: Con Oseguera MD Anion gap [Moles/Vol] 14 mmol/L Normal 9-17 [facility] Comment on above: Performed By: #### C P, MG, CB, CDP #### [facility] [address] [place] [place] [address] Seam Checker: Con Oseguera MD AST [Catalytic activity/Vol] 21 U/L Normal <40 [facility] Comment on above: Performed By: #### C P, MG, CB, CDP #### [facility] [address] [place] [address] Seam Checker: Con Oseguera MD Bilirubin Ql (U) 0.34 mg/dL Normal 0.3-1.2 [facility] Comment on above: Performed By: #### C P, MG, CB, CDP #### [facility] [address] [place] [address] Seam Checker: Con Oseguera MD Calcium [Mass/Vol] 9.3 mg/dL Normal 8.6-10.4 [facility] Comment on above: Performed By: #### C P, MG, CB, CDP #### [facility] [address] [place] [address] Seam Checker: Con Oseguera MD Chloride [Moles/Vol] 100 mmol/L Normal 98-107 [facility] Comment on above: Performed By: #### C P, MG, CB, CDP #### [facility] [address] [place] [address] Seam Checker: Con Oseguera MD CO2 [Moles/Vol] 22 mmol/L Normal 20-31 [facility] Comment on above: Performed By: #### C P, MG, CB, CDP #### [facility] [place] [address] Seam Checker: Con Oseguera MD Creatinine [Mass/Vol] 2.03 mg/dL High 0.70-1.20 [facility] Comment on above: Performed By: #### C P, MG, CB, CDP #### [facility] [place] [address] Seam Checker: Con Oseguera MD GFR, Amer 38 mL/min Low >60 [facility] Comment on above: Performed By: #### C P, MG, CB, CDP #### [facility] [address] [place] [address] Seam Checker: Con Oseguera MD GFR,non Amer 32 mL/min Low >60 [facility] Comment on above: Performed By: #### C P, MG, CB, CDP #### [facility] [address] [place] [address] Seam Checker: Con Oseguera MD Glucose [Mass/Vol] 286 mg/dL High 70-99 [facility] Comment on above: Performed By: #### C P, MG, CB, CDP #### [facility] [address] [place] [address] Seam Checker: Con Oseguera MD Potassium [Moles/Vol] 5.2 mmol/L Normal 3.7-5.3 [facility] Comment on above: Performed By: #### C P, MG, CB, CDP #### [facility] [address] [place] [address] Seam Checker: Con Oseguera MD Protein [Mass/Vol] 6.6 g/dL Normal 6.4-8.3 [facility] Comment on above: Performed By: #### C P, MG, CB, CDP #### [facility] [place] [address] Seam Checker: Con Oseguera MD Sodium [Moles/Vol] 136 mmol/L Normal 135-144 [facility] Comment on above: Performed By: #### C P, MG, CB, CDP #### [facility] [place] [address] Seam Checker: Con Oseguera MD Urea nitrogen [Mass/Vol] 51 mg/dL High 8-23 [facility] Comment on above: Performed By: #### C P, MG, CB, CDP #### [facility] [address] [place] [address] Seam Checker: Con Oseguera MD Albumin/Globulin [Mass ratio] NOT REPORTED Normal 1.0-2.5 [facility] Comment on above: Performed By: #### C P, MG, CB, CDP #### [facility] [address] [place] [address] Seam Checker: Con Oseguera MD BUN/CRE Ratio NOT REPORTED Normal 9-20 [facility] Comment on above: Performed By: #### C P, MG, CB, CDP #### [facility] [address] [place] [address] Seam Checker: Con Oseguera MD Staging: NOT REPORTED Normal [facility] Comment on above: Performed By: #### C P, MG, CB, CDP #### [facility] [address] [place] [address] Seam Checker: Con Oseguera MD Magnesiumon 10-23-2018 Magnesium [Mass/Vol] 2.3 mg/dL Normal 1.6-2.6 [facility] Comment on above: Performed By: #### B MP #### [facility] [address] [place] [address] Seam Checker: Con Oseguera MD Phosphorus, Inorg.on 019 Phosphorus, Inorg. 4.8 mg/dL High 2.5-4.5 [facility] Comment on above: Performed By: #### B MP #### [facility] [address] [place] [address] Seam Checker: Con Oseguera MD Basic Metabolic Profon 10-12 (cont.) Normal [facility] Comment on above: Result Comment: Aver age GFR for 70 or more years old: 75 mL/min/1.73sq m Chronic Kidney Disease: <60 mL/min/1.73sq m Kidney failure: <15 mL/min/1.73sq m eGFR calculated using average adult body mass. Additional eGFR calculator available at: http://www.[employer].com/multiple_crcl_2012.htm Performed By: #### B MP #### [facility] [address] [place] [address] Seam Checker: Con Oseguera MD Anion gap [Moles/Vol] 14 mmol/L Normal 9-17 [facility] Comment on above: Performed By: #### B MP #### [facility] [address] [place] [address] Seam Checker: Con Oseguera MD Calcium [Mass/Vol] 9.6 mg/dL Normal 8.6-10.4 [facility] Comment on above: Performed By: #### B MP #### [facility] [address] [place] [address] Seam Checker: Con Oseguera MD Chloride [Moles/Vol] 103 mmol/L Normal 98-107 [facility] Comment on above: Performed By: #### B MP #### [facility] [address] [place] [address] Seam Checker: Con Oseguera MD CO2 [Moles/Vol] 21 mmol/L Normal 20-31 [facility] Comment on above: Performed By: #### B MP #### [facility] [address] [place] [address] Seam Checker: Con Oseguera MD Creatinine [Mass/Vol] 1.52 mg/dL High 0.70-1.20 [facility] Comment on above: Performed By: #### B MP #### [facility] [address] [place] [address] Seam Checker: Con Oseguera MD GFR, Amer 54 mL/min Low >60 [facility] Comment on above: Performed By: #### B MP #### [facility] [address] [place] [address] Seam Checker: Con Oseguera MD GFR,non Amer 44 mL/min Low >60 [facility] Comment on above: Performed By: #### B MP #### [facility] [address] [place] [address] Seam Checker: Con Oseguera MD Glucose [Mass/Vol] 219 mg/dL High 70-99 [facility] Comment on above: Performed By: #### B MP #### [facility] [address] [place] [address] Seam Checker: Con Oseguera MD Potassium [Moles/Vol] 4.8 mmol/L Normal 3.7-5.3 [facility] Comment on above: Performed By: #### B MP #### [facility] [address] [place] [address] Seam Checker: Con Oseguera MD Sodium [Moles/Vol] 138 mmol/L Normal 135-144 [facility] Comment on above: Performed By: #### B MP #### [facility] [address] [place] [address] Seam Checker: Con Oseguera MD Urea nitrogen [Mass/Vol] 48 mg/dL High 8-23 [facility] Comment on above: Performed By: #### B MP #### [facility] [address] [place] [address] Seam Checker: Con Oseguera MD BUN/CRE Ratio NOT REPORTED Normal 9-20 [facility] Comment on above: Performed By: #### B MP #### [facility] [address] [place] [address] Seam Checker: Con Oseguera MD Staging: NOT REPORTED Normal [facility] Comment on above: Performed By: #### B MP #### [facility] [address] [place] [address] Seam Checker: Con Oseguera MD Basic Metabolic Profon 09-28 (cont.) Normal [facility] Comment on above: Result Comment: Aver age GFR for 70 or more years old: 75 mL/min/1.73sq m Chronic Kidney Disease: <60 mL/min/1.73sq m Kidney failure: <15 mL/min/1.73sq m eGFR calculated using average adult body mass. Additional eGFR calculator available at: http://www.[employer]/multiple_crcl_2012.htm Performed By: #### B MP #### [facility] [address] [place] [address] Seam Checker: Con Oseguera MD Anion gap [Moles/Vol] 13 mmol/L Normal 9-17 [facility] Comment on above: Performed By: #### B MP #### [facility] [address] [place] [address] Seam Checker: Con Oseugera MD Calcium [Mass/Vol] 9.2 mg/dL Normal 8.6-10.4 [facility] Comment on above: Performed By: #### B MP #### [facility] [address] [place] [address] Seam Checker: Con Oseguera MD Chloride [Moles/Vol] 100 mmol/L Normal 98-107 [facility] Comment on above: Performed By: #### B MP #### [facility] [address] [place] [address] Seam Checker: Con Oseguera MD CO2 [Moles/Vol] 24 mmol/L Normal 20-31 [facility] Comment on above: Performed By: #### B MP #### [facility] [address] [place] [address] Seam Checker: Con Oseguera MD Creatinine [Mass/Vol] 1.46 mg/dL High 0.70-1.20 [facility] Comment on above: Performed By: #### B MP #### [facility] [address] [place] [address] Seam Checker: Con Oseguera MD GFR, Amer 56 mL/min Low >60 [facility] Comment on above: Performed By: #### B MP #### [facility] [address] [place] [address] Seam Checker: Con Oseguera MD GFR,non Amer 46 mL/min Low >60 [facility] Comment on above: Performed By: #### B MP #### [facility] [address] [place] [address] Seam Checker: Con Oseguera MD Glucose [Mass/Vol] 269 mg/dL High 70-99 [facility] Comment on above: Performed By: #### B MP #### [facility] [address] [place] [address] Seam Checker: Con Oseguera MD Potassium [Moles/Vol] 4.7 mmol/L Normal 3.7-5.3 [facility] Comment on above: Performed By: #### B MP #### [facility] [address] [place] [address] Seam Checker: Con Oseguera MD Sodium [Moles/Vol] 137 mmol/L Normal 135-144 [facility] Comment on above: Performed By: #### B MP #### [facility] [address] [place] [address] Seam Checker: Con Oseguera MD Urea nitrogen [Mass/Vol] 41 mg/dL High 8-23 [facility] Comment on above: Performed By: #### B MP #### [facility] [address] [place] [address] Seam Checker: Con Oseguera MD BUN/CRE Ratio NOT REPORTED Normal 9-20 [facility] Comment on above: Performed By: #### B MP #### [facility] [address] [place] [address] Seam Checker: Con Oseguera MD Staging: NOT REPORTED Normal [facility] Comment on above: Performed By: #### B MP #### [facility] [address] [place] [address] Seam Checker: Con Oseguera MD Basic Metabolic Profon 09-20 (cont.) Normal [facility] Comment on above: Result Comment: Aver age GFR for 70 or more years old: 75 mL/min/1.73sq m Chronic Kidney Disease: <60 mL/min/1.73sq m Kidney failure: <15 mL/min/1.73sq m eGFR calculated using average adult body mass. Additional eGFR calculator available at: http://www.[employer]/multiple_crcl_2011.htm Performed By: #### H H, BMP #### [facility] [address] [place] [address] Seam Checker: Con Oseguera MD Anion gap [Moles/Vol] 14 mmol/L Normal 9-17 [facility] Comment on above: Performed By: #### H H, BMP #### [facility] [address] [place] [address] Seam Checker: Con Oseguera MD Calcium [Mass/Vol] 9.1 mg/dL Normal 8.6-10.4 [facility] Comment on above: Performed By: #### H H, BMP #### [facility] [address] [place] [address] Seam Checker: Con Oseguera MD Chloride [Moles/Vol] 98 mmol/L Normal 98-107 [facility] Comment on above: Performed By: #### H H, BMP #### [facility] [address] [place] [address] Seam Checker: Con Oseguera MD CO2 [Moles/Vol] 24 mmol/L Normal 20-31 [facility] Comment on above: Performed By: #### H H, BMP #### [facility] [address] [place] [address] Seam Checker: Con Oseguera MD Creatinine [Mass/Vol] 1.48 mg/dL High 0.70-1.20 [facility] Comment on above: Performed By: #### H H, BMP #### [facility] [address] [place] [address] Seam Checker: Con Oseguera MD GFR, Amer 55 mL/min Low >60 [facility] Comment on above: Performed By: #### H H, BMP #### [facility] [address] [place] [address] Seam Checker: Con Oseguera MD GFR,non Amer 46 mL/min Low >60 [facility] Comment on above: Performed By: #### H H, BMP #### [facility] [address] [place] [address] Seam Checker: Con Oseguera MD Glucose [Mass/Vol] 168 mg/dL High 70-99 [facility] Comment on above: Performed By: #### H H, BMP #### [facility] [address] [place] [address] Seam Checker: Con Oseguera MD Potassium [Moles/Vol] 4.6 mmol/L Normal 3.7-5.3 [facility] Comment on above: Performed By: #### H H, BMP #### [facility] [address] [place] [address] Seam Checker: Con Oseguera MD Sodium [Moles/Vol] 136 mmol/L Normal 135-144 [facility] Comment on above: Performed By: #### H H, BMP #### [facility] [address] [place] [address] Seam Checker: Con Oseguera MD Urea nitrogen [Mass/Vol] 34 mg/dL High 8-23 [facility] Comment on above: Performed By: #### H H, BMP #### [facility] [address] [place] [address] Seam Checker: Con Oseguera MD BUN/CRE Ratio NOT REPORTED Normal 9-20 [facility] Comment on above: Performed By: #### H H, BMP #### [facility] [address] [place] [address] Seam Checker: Con Oseguera MD Staging: NOT REPORTED Normal [facility] Comment on above: Performed By: #### H H, BMP #### [facility] [address] [place] [address] Seam Checker: Con Oseguera MD Hgb/Hcton 09-20-2018 Hematocrit (Bld) [Volume fraction] 26.8 % Low 41-53 [facility] Comment on above: Performed By: #### H H, BMP #### [facility] [address] [place] [address] Seam Checker: Con Oseguera MD Hemoglobin (Bld) [Mass/Vol] 8.3 g/dL Low 13.5-17.5 [facility] Comment on above: Performed By: #### H H, BMP #### [facility] [address] [place] [address] Seam Checker: Con Oseguera MD Basic Metabolic Profon 09-07 (cont.) Normal [facility] Comment on above: Result Comment: Aver age GFR for 70 or more years old: 75 mL/min/1.73sq m Chronic Kidney Disease: <60 mL/min/1.73sq m Kidney failure: <15 mL/min/1.73sq m eGFR calculated using average adult body mass. Additional eGFR calculator available at: http://www.[employer].com/multiple_crcl_2012.htm Performed By: #### B MP #### [facility] [address] [place] [address] Seam Checker: Con Oseguera MD Anion gap [Moles/Vol] 10 mmol/L Normal 9-17 [facility] Comment on above: Performed By: #### B MP #### [facility] [address] [place] [address] Seam Checker: Con Oseguera MD Calcium [Mass/Vol] 9.1 mg/dL Normal 8.6-10.4 [facility] Comment on above: Performed By: #### B MP #### [facility] [address] [place] [address] Seam Checker: Con Oseguera MD Chloride [Moles/Vol] 103 mmol/L Normal 98-107 [facility] Comment on above: Performed By: #### B MP #### [facility] [address] [place] [address] Seam Checker: Con Oseguera MD CO2 [Moles/Vol] 25 mmol/L Normal 20-31 [facility] Comment on above: Performed By: #### B MP #### [facility] [address] [place] [address] Seam Checker: Con Oseguera MD Creatinine [Mass/Vol] 1.25 mg/dL High 0.70-1.20 [facility] Comment on above: Performed By: #### B MP #### [facility] [address] [place] [address] Seam Checker: Con Oseguera MD GFR, Amer >60 Normal >60 [facility] Comment on above: Performed By: #### B MP #### [facility] [address] [place] [address] Seam Checker: Con Oseguera MD GFR,non Amer 55 mL/min Low >60 [facility] Comment on above: Performed By: #### B MP #### [facility] [address] [place] [address] Seam Checker: Con Oseguera MD Glucose [Mass/Vol] 123 mg/dL High 70-99 [facility] Comment on above: Performed By: #### B MP #### [facility] [address] [place] [address] Seam Checker: Con Oseguera MD Potassium [Moles/Vol] 4.7 mmol/L Normal 3.7-5.3 [facility] Comment on above: Performed By: #### B MP #### [facility] [address] [place] [address] Seam Checker: Con Oseguera MD Sodium [Moles/Vol] 138 mmol/L Normal 135-144 [facility] Comment on above: Performed By: #### B MP #### [facility] [address] [place] [address] Seam Checker: Con Oseguera MD Urea nitrogen [Mass/Vol] 28 mg/dL High 8-23 [facility] Comment on above: Performed By: #### B MP #### [facility] [address] [place] [address] Seam Checker: Con Oseguera MD BUN/CRE Ratio NOT REPORTED Normal 9-20 [facility] Comment on above: Performed By: #### B MP #### [facility] [address] [place] [address] Seam Checker: Con Oseguera MD Staging: NOT REPORTED Normal [facility] Comment on above: Performed By: #### B MP #### [facility] [address] [place] [address] Seam Checker: Con Oseguera MD Basic Metabolic Profon 08-31 (cont.) Normal [facility] Comment on above: Result Comment: Aver age GFR for 70 or more years old: 75 mL/min/1.73sq m Chronic Kidney Disease: <60 mL/min/1.73sq m Kidney failure: <15 mL/min/1.73sq m eGFR calculated using average adult body mass. Additional eGFR calculator available at: http://www.[employer]/multiple_crcl_2012.htm Performed By: #### B MP #### [facility] [address] [place] [address] Seam Checker: Con Oseguera MD Anion gap [Moles/Vol] 11 mmol/L Normal 9-17 [facility] Comment on above: Performed By: #### B MP #### [facility] [address] [place] [address] Seam Checker: Con Oseguera MD Calcium [Mass/Vol] 9.4 mg/dL Normal 8.6-10.4 [facility] Comment on above: Performed By: #### B MP #### [facility] [address] [place] [address] Seam Checker: Con Oseguera MD Chloride [Moles/Vol] 100 mmol/L Normal 98-107 [facility] Comment on above: Performed By: #### B MP #### [facility] [address] [place] [address] Seam Checker: Con Oseguera MD CO2 [Moles/Vol] 24 mmol/L Normal 20-31 [facility] Comment on above: Performed By: #### B MP #### [facility] [address] [place] [address] Seam Checker: Con Oseguera MD Creatinine [Mass/Vol] 1.35 mg/dL High 0.70-1.20 [facility] Comment on above: Performed By: #### B MP #### [facility] [address] [place] [address] Seam Checker: Con Oseguera MD GFR, Amer >60 Normal >60 [facility] Comment on above: Performed By: #### B MP #### [facility] [address] [place] [address] Seam Checker: Con Oseguera MD GFR,non Amer 51 mL/min Low >60 [facility] Comment on above: Performed By: #### B MP #### [facility] [address] [place] [address] Seam Checker: Con Oseguera MD Glucose [Mass/Vol] 133 mg/dL High 70-99 [facility] Comment on above: Performed By: #### B MP #### [facility] [address] [place] [address] Seam Checker: Con Oseguera MD Potassium [Moles/Vol] 4.8 mmol/L Normal 3.7-5.3 [facility] Comment on above: Performed By: #### B MP #### [facility] [address] [place] [address] Seam Checker: Con Oseguera MD Sodium [Moles/Vol] 135 mmol/L Normal 135-144 [facility] Comment on above: Performed By: #### B MP #### [facility] [address] [place] [address] Seam Checker: Con Oseguera MD Urea nitrogen [Mass/Vol] 35 mg/dL High 8-23 [facility] Comment on above: Performed By: #### B MP #### [facility] [address] [place] [address] Seam Checker: Con Oseguera MD BUN/CRE Ratio NOT REPORTED Normal 03-16 [facility] Comment on above: Performed By: #### B MP #### [facility] [address] [place] [address] Seam Checker: Con Oseguera MD Staging: NOT REPORTED Normal [facility] Comment on above: Performed By: #### B MP #### [facility] [address] [place] [address] Seam Checker: Con Oseguera MD XR ABDOMEN (KUB) (SINGLE [...] Crow Wright MD 08/21/18 Final result Normal [facility] Basic Metabolic Profon 08-16 (cont.) Normal [facility] Comment on above: Result Comment: Aver age GFR for 70 or more years old: 75 mL/min/1.73sq m Chronic Kidney Disease: <60 mL/min/1.73sq m Kidney failure: <15 mL/min/1.73sq m eGFR calculated using average adult body mass. Additional eGFR calculator available at: http://www.[employer].com/multiple_crcl_2012.htm Performed By: #### B MP #### [facility] [address] [place] [address] Seam Checker: Con Oseguera MD Anion gap [Moles/Vol] 11 mmol/L Normal 9-17 [facility] Comment on above: Performed By: #### B MP #### [facility] [address] [place] [address] Seam Checker: Con Oseguera MD Calcium [Mass/Vol] 9.0 mg/dL Normal 8.6-10.4 [facility] Comment on above: Performed By: #### B MP #### [facility] [place] [address] Seam Checker: Con Oseguera MD Chloride [Moles/Vol] 99 mmol/L Normal 98-107 [facility] Comment on above: Performed By: #### B MP #### [facility] [place] [address] Seam Checker: Con Oseguera MD CO2 [Moles/Vol] 26 mmol/L Normal 20-31 [facility] Comment on above: Performed By: #### B MP #### [facility] [place] [address] Seam Checker: Con Oseguera MD Creatinine [Mass/Vol] 1.46 mg/dL High 0.70-1.20 [facility] Comment on above: Performed By: #### B MP #### [facility] [place] [address] Seam Checker: Con Oseguera MD GFR, Amer 56 mL/min Low >60 [facility] Comment on above: Performed By: #### B MP #### [facility] [address] [place] [address] Seam Checker: Con Oseguera MD GFR,non Amer 46 mL/min Low >60 [facility] Comment on above: Performed By: #### B MP #### [facility] [address] [place] [address] Seam Checker: Con Oseguera MD Glucose [Mass/Vol] 160 mg/dL High 70-99 [facility] Comment on above: Performed By: #### B MP #### [facility] [address] [place] [address] Seam Checker: Con Oseguera MD Potassium [Moles/Vol] 4.4 mmol/L Normal 3.7-5.3 [facility] Comment on above: Performed By: #### B MP #### [facility] [address] [place] [address] Seam Checker: Con Oseguera MD Sodium [Moles/Vol] 136 mmol/L Normal 135-144 [facility] Comment on above: Performed By: #### B MP #### [facility] [address] [place] [address] Seam Checker: Con Oseguera MD Urea nitrogen [Mass/Vol] 42 mg/dL High 8-23 [facility] Comment on above: Performed By: #### B MP #### [facility] [address] [place] [address] Seam Checker: Con Oseguera MD BUN/CRE Ratio NOT REPORTED Normal 9-20 [facility] Comment on above: Performed By: #### B MP #### [facility] [address] [place] [address] Seam Checker: Con Oseguera MD Staging: NOT REPORTED Normal [facility] Comment on above: Performed By: #### B MP #### [facility] [address] [place] [address] Seam Checker: Con Oseguera MD CBCon 07-11-2018 Erythrocyte distribution width (RBC) [Ratio] 18.8 % High 11.5-14.9 [facility] Comment on above: Performed By: #### C BC #### [facility] [address] [place] [address] Seam Checker: Con Oseguera MD Hematocrit (Bld) [Volume fraction] 23.1 % Low 41-53 [facility] Comment on above: Performed By: #### C BC #### [facility] [address] [place] [address] Seam Checker: Con Oseguera MD Hemoglobin (Bld) [Mass/Vol] 7.0 g/dL Critically low 13.5-17.5 [facility] Comment on above: Performed By: #### C BC #### [facility] [place] [address] Seam Checker: Con Oseguera MD MCH (RBC) [Entitic mass] 21.3 pg Low 26-34 [facility] Comment on above: Performed By: #### C BC #### [facility] [place] [address] Seam Checker: Con Oseguera MD MCHC (RBC) [Mass/Vol] 30.1 g/dL Low 31-37 [facility] Comment on above: Performed By: #### C BC #### [facility] [place] [address] Seam Checker: Con Oseguera MD MCV (RBC) [Entitic vol] 70.8 fL Low 80-100 [facility] Comment on above: Performed By: #### C BC #### [facility] [address] [place] [address] Seam Checker: Con Oseguera MD Platelet mean volume (Bld) [Entitic vol] 8.8 fL Normal 6.0-12.0 [facility] Comment on above: Performed By: #### C BC #### [facility] [address] [place] [address] Seam Checker: Con Oseguera MD Platelets (Bld) [#/Vol] 484 10*3/uL High 150-450 [facility] Comment on above: Performed By: #### C BC #### [facility] [address] [place] [address] Seam Checker: Con Oseguera MD RBC (Bld) [#/Vol] 3.26 10*6/uL Low 4.5-5.9 [facility] Comment on above: Performed By: #### C BC #### [facility] [address] [place] [address] Seam Checker: Con Oseguera MD WBC (Bld) [#/Vol] 10.6 10*3/uL Normal 3.5-11.0 [facility] Comment on above: Performed By: #### C BC #### [facility] [address] [place] [address] Seam Checker: Con Oseguera MD NRBC Automated NOT REPORTED Normal [facility] Comment on above: Performed By: #### C BC #### [facility] [address] [place] [address] Seam Checker: Con Oseguera MD Vital Signs Date Time Vital Sign Value Performing Clinician Megan chauhan 03-27-2019 17:01-0400 BMI (Body Mass Index) 27.46 kg/m2 Josh Hess [facility], [place] 03-27-2019 17:01-0400 Body Temperature 97.7 [degF] Josh Krebs [facility], [place] 03-27-2019 17:01-0400 Body weight 72.58 kg Joshaye Hess [facility] , [place] 03-27-2019 17:01-0400 BP Diastolic 58 mm[Hg] Josh [facility] , [place] 03-27-2019 17:01-0400 BP Systolic 142 mm[Hg] [facility] , [place] 03-27-2019 17:01-0400 Height 162.6 cm [facility] , [place] 03-27-2019 17:01-0400 Pulse (Heart Rate) 51 /min [facility], [place] 03-27-2019 17:01-0400 Pulse Oximetry 100 % [facility] , [place] 03-27-2019 17:01-0400 Respiratory Rate 14 /min [facility], [place] 03-16-2019 01:33-0400 BMI (Body Mass Index) 23.68 kg/m2 Javier [facility], [place] 03-16-2019 01:33-0400 Body Temperature 98.01 [degF] Javier [facility], [place] 03-16-2019 01:33-0400 Body weight 74.84 kg Javier [facility] , [place] 03-16-2019 01:33-0400 BP Diastolic 70 mm[Hg] [facility] , [place] 03-16-2019 01:33-0400 BP Systolic 145 mm[Hg] Javier [facility] , [place] 03-16-2019 01:33-0400 Height 177.8 cm Javier [facility] , [place] 03-16-2019 01:33-0400 Pulse (Heart Rate) 100 /min [facility], [place] 03-16-2019 01:33-0400 Pulse Oximetry 97 % [facility] , [place] 03-16-2019 01:33-0400 Respiratory Rate 16 /min [facility], [place] 03-13-2019 15:00-0400 Pulse Oximetry 95 % Wolfgang Ruiz [facility], [place] 03-13-2019 15:00-0400 Respiratory Rate 16 /min [facility] [place] 03-13-2019 12:07-0400 Body Temperature 97.3 [degF] [facility] [place] 03-13-2019 12:07-0400 BP Diastolic 54 mm[Hg] [place] 03-13-2019 12:07-0400 BP Systolic 119 mm[Hg] [facility] [place] 03-13-2019 12:07-0400 Pulse (Heart Rate) 73 /min [facility] [place] 03-12-2019 06:00-0400 BMI (Body Mass Index) 22.24 kg/m2 [facility] [place] 03-12-2019 06:00-0400 Body weight 70.3 kg [facility] [place] 03-08-2019 07:02-0400 Height 177.8 cm [place], [place] Encounters Encounter Date Encounter Type Care Provider Facility Start: 03-27-2019 End: 03-27-2019 Emergency department patient visit [facility] Start: 03-27-2019 End: 03-27-2019 Emergency department patient visit Josh Hess Work Phone: [facility] Comment on above: Acute kidney injury (HCC) (Primary Dx) Start: 03-16-2019 End: 03-16-2019 Emergency department patient visit JAVIER Abhi DEVRIES [facility] Start: 03-16-2019 End: 03-16-2019 Emergency department patient visit Javier Devries Work Phone: [facility] Comment on above: Acute urinary retent ion (Primary Dx) Start: 03-07-2019 End: 03-13-2019 Evaluation and management of inpatient [facility] Start: 03-07-2019 End: 03-13-2019 Evaluation and management of inpatient Wolfgang Moe Floresleydahalina Work Phone: [facility] Med Surg Comment on above: VANESA (acute kidney in jury) (HCC) (Primary Dx); Pneumonia due to organism; Acute cystitis without hematuria Start: 12-10-2018 End: 12-13-2018 Evaluation and management of inpatient TALIA MULLIGAN [facility] Start: 11-03-2018 End: 11-04-2018 Patient encounter procedure REBECA ORELLANA [facility] Start: 10-23-2018 End: 10-24-2018 Patient encounter procedure LEOBARDO Maurer ELENO ABBASIAИринаLOIDAYsabel [facility] Start: 10-12-2018 End: 10-13-2018 Patient encounter procedure [facility] Start: 09-28-2018 End: 09-29-2018 Patient encounter procedure [facility]ETH [facility] Start: 09-20-2018 End: 09-21-2018 Patient encounter procedure [facility]ABETH [facility] Start: 09-07-2018 End: 09-08-2018 Patient encounter procedure [facility]ABETH [facility] Start: 08-31-2018 End: 09-01-2018 Patient encounter procedure TALIA MULLIGAN [facility] Start: 08-21-2018 End: 08-24-2018 [facility] Start: 08-16-2018 End: 08-17-2018 [facility] Start: 07-11-2018 End: 07-12-2018 Patient encounter procedure SHARIFA N ALLYSSALISETHLUR [facility] Procedures Date Procedure Procedure Detail Performing Clinician Start: 03-27-2019 IP CONSULT TO FAMILY MEDICINE SHARIFA PANGULUR Start: 03-27-2019 Basic metabolic panel calcium total SHARIFA PANGULUR Start: 03-27-2019 Blood count complete auto&auto difrntl wbc SHARIFA PANGULUR Start: 03-27-2019 Basic metabolic panel calcium total Josh Faith Work Phone: Start: 03-27-2019 Blood count complete auto&auto difrntl wbc Josh Hess Work Phone: Start: 03-16-2019 Urinalysis microscopic only SHARIFA SPIVEY GULUR Start: 03-16-2019 Urnls dip stick/tablet rgnt auto w/o microscopy SHARIFA PANGULUR Start: 03-16-2019 CATHETER REMOVAL SHARIFA PANGULUR Start: 03-16-2019 INSERT PEDROZA CATHETER SHARIFA PANGULUR Start: 03-16-2019 Urinalysis microscopic only Javier Abhi Zuñigasusy vik Work Phone: Start: 03-16-2019 Urnls dip stick/tablet rgnt auto w/o microscopy Javier Moe Dewayne Work Phone: Start: 03-13-2019 NEBULIZER TX INTERMITTENT [...] Start: 03-12-2019 Glucose blood reagent strip Talia Rk Jacobo [employer] Work Phone: Start: 03-12-2019 NEBULIZER TX INTERMITTENT SHARIFA PANGU LUR Start: 03-12-2019 Glucose blood reagent strip SHARIFA SPIVEY GULUR Start: 03-12-2019 Glucose blood reagent strip Talia Rk Jacobo [employer] Work Phone: Start: 03-12-2019 Gluc bld gluc mntr dev cleared fda spec home use SHARIFA PANGULUR Start: 03-12-2019 NEBULIZER TX INTERMITTENT SHARIFA PANGU LUR Start: 03-12-2019 Glucose blood reagent strip SHARIFA SPIVEY GULUR Start: 03-12-2019 Glucose blood reagent strip Talia Rk hansen Work Phone: Start: 03-12-2019 DISCHARGE PATIENT SHARIFA MEJÍALUR Start: 03-12-2019 Gluc bld gluc mntr dev cleared fda spec home use SHARIFA PANGULUR Start: 03-12-2019 INITIATE OXYGEN THERAPY PROTOCOL SHARIFA PANGULUR Start: 03-12-2019 NEBULIZER TX INTERMITTENT SHARIFA PANGU LUR Start: 03-12-2019 Glucose blood reagent strip SHARIFA SPIVEY GULUR Start: 03-12-2019 Comprehensive metabolic panel SHARIFA PANGULUR Start: 03-12-2019 Glucose blood reagent strip Talia hansen Work Phone: Start: 03-12-2019 Gluc bld gluc [...] Start: 03-11-2019 Glucose blood reagent strip Talia Naire R obinson Work Phone: Start: 03-11-2019 Gluc [...] Stipe R obinson Work Phone: Start: 03-10-2019 Gluc bld gluc mntr dev cleared fda spec home use SHARIFA PANGULUR Start: 03-10-2019 NEBULIZER TX INTERMITTENT SHARIFA PANGU LUR Start: 03-10-2019 Glucose blood reagent strip SHARIFA SPIVEY GULUR Start: 03-10-2019 Glucose blood reagent strip Talia Stipe R obinson Work Phone: Start: 03-10-2019 Gluc bld [...] GULUR Start: 03-10-2019 Assay of magnesium Talia Stipe Pastor Work Phone: Start: 03-10-2019 BASIC METABOLIC PANEL W/ REFLEX TO MG FOR LOW K Talia Stipe Pastor Work Phone: Start: 03-10-2019 Drug screen quantitative digoxin total Talia Stipe Pastor Work Phone: Start: 03-10-2019 Gluc bld gluc mntr dev cleared fda spec home use SHARIFA PANGULUR Start: 03-10-2019 Glucose blood reagent strip Talia Stipe R obinson Work Phone: Start: 03-10-2019 INTAKE AND [...] Start: 03-09-2019 Glucose blood reagent strip Talia Jacobo [employer] Work Phone: Start: 03-09-2019 Gluc bld gluc mntr dev cleared fda spec home use SHARIFA PANGULUR Start: 03-09-2019 NEBULIZER TX INTERMITTENT SHARIFA PANGU LUR Start: 03-09-2019 Glucose blood reagent strip SHARIFA SPIVEY GULUR Start: 03-09-2019 Glucose blood reagent strip Talia Jacobo [employer] Work Phone: Start: 03-09-2019 ELEVATE HEELS OFF OF BED SHARIFA PANGUL UR Start: 03-09-2019 HEAD OF BED 60 DEGREES OR LESS SHARIFA PANGULUR Start: 03-09-2019 NURSING COMMUNICATION SHARIFA PANLISETHLUR Start: 03-09-2019 TURN PATIENT SHARIFA MEJÍALUR Start: 03-09-2019 Gluc bld gluc mntr dev [...] Glucose blood reagent strip Talia Stipe R [employer] Work Phone: Start: 03-08-2019 TELEMETRY MONITORING SHARIFA PANGULUR Start: 03-08-2019 Glucose blood reagent strip SHARIFA SPIVEY GULUR Start: 03-08-2019 NEBULIZER TX INTERMITTENT SHARIFA PANGU LUR Start: 03-08-2019 Glucose blood reagent strip Talia Stipe R [employer] Work Phone: Start: 03-08-2019 Gluc bld gluc mntr dev cleared fda spec home use SHARIFA PANGULUR Start: 03-08-2019 NEBULIZER TX INTERMITTENT SHARIFA PANGU LUR Start: 03-08-2019 Glucose blood reagent strip SHARIFA SPIVEY GULUR Start: 03-08-2019 Glucose blood reagent strip Talia Stipe R obinson Work Phone: Start: 03-08-2019 Gluc bld gluc mntr dev cleared fda spec home use SHARIFA PANGULUR Start: 03-08-2019 INITIATE OXYGEN THERAPY PROTOCOL SHARIFA MEJÍALUR Start: 03-08-2019 NEBULIZER TX INTERMITTENT SHARIFA PANGU LUR Start: 03-08-2019 Glucose blood reagent strip SHARIFA SPIVEY GULUR Start: 03-08-2019 Comprehensive metabolic panel SHARIFA PANGULUR Start: 03-08-2019 End: 03-08-2019 Glucose blood reagent strip Talia Stipe R obinson Work Phone: Start: 03-08-2019 BASIC METABOLIC PANEL W/ REFLEX TO MG FOR LOW K Talia Pastor Work Phone: Start: 03-08-2019 Gluc bld gluc mntr dev cleared fda spec home use SHARIFA PANGULUR Start: 03-08-2019 DAILY WEIGHTS SHARIFA MEJÍALUR Start: 03-08-2019 INTAKE AND OUTPUT SHARIFA PANGULUR Start: 03-08-2019 Glucose blood reagent strip SHARIFA CHILDERSLUR Start: 03-07-2019 DIET CARB CONTROL SHARIFA MEJÍALUR Start: 03-07-2019 DNR COMFORT CARE SHARIFA MEJÍALUR Start: 03-07-2019 INITIATE OXYGEN THERAPY PROTOCOL SHARIFA MEJÍALUR Start: 03-07-2019 INTAKE AND OUTPUT SHARIFA MEJÍALUR Start: 03-07-2019 IP CONSULT TO CARDIOLOGY SHARIFA MEJÍAL UR Start: 03-07-2019 IP CONSULT TO PULMONOLOGY SHARIFA MEJÍA LUR Start: 03-07-2019 NEBULIZER TX INTERMITTENT SHARIFA MEJÍA LUR Start: 03-07-2019 NOTIFY PHYSICIAN (SPECIFY) SHARIFA GENEVA ULNEETA Start: 03-07-2019 OT EVAL AND TREAT SHARIFA MEJÍALUR Start: 03-07-2019 PLACE INTERMITTENT PNEUMATIC COMPRESSION DEVICE SHARIFA MEJÍALUR Start: 03-07-2019 PT EVAL AND TREAT SHARIFA MEJÍALUR Start: 03-07-2019 REASON FOR NO CHEMICAL VTE PROPHYLAXIS SHARIFA MEJÍALUR Start: 03-07-2019 REASON FOR NOT SELECTING BASAL INSULIN SHARIFA MEJÍALUR Start: 03-07-2019 TOBACCO CESSATION EDUCATION SHARIFA MARTINEZR Start: 03-07-2019 VITAL SIGNS SHARIFA ABURTOR Start: [...] Culture bacterial quanttative colony count urine SHARIFA ABURTOR Start: 03-07-2019 Ct abdomen & pelvis w/o contrast material SHARIFA MEJÍALUR Start: 03-07-2019 Ecg routine ecg w/least 12 lds w/i&r SHARIFA MEJÍALUR Start: 03-07-2019 EKG REPORT SHARIFA MENON Start: 03-07-2019 Radiologic exam chest 2 views SHARIFA MENON Start: 03-07-2019 Assay of lipase SHARIFA MENON Start: 03-07-2019 Assay of troponin quantitative SHARIFA MENON Start: 03-07-2019 Blood count complete auto&auto difrntl wbc SHARIFA MENON Start: 03-07-2019 BRAIN NATRIURETIC PEPTIDE SHARIFA HALE Start: 03-07-2019 Comprehensive metabolic panel SHARIFA MENON Start: 03-07-2019 Hemoglobin glycosylated a1c SHARIFA GALARZA Start: 03-07-2019 Gluc bld gluc mntr dev cleared fda spec home use Mikaela Pfeiffer Work Phone: Start: 03-07-2019 Glucose blood reagent strip Wolfgang Abhi [employer] Work Phone: Start: 03-07-2019 Culture bacterial quanttative colony count urine Wolfgang Abhi [employer] Work Phone: Start: 03-07-2019 Ct abdomen & pelvis w/o contrast material Mikaela Pfeiffer Work Phone: Start: 03-07-2019 Urinalysis microscopic only SHARIFA GALARZA Start: 03-07-2019 Urnls dip stick/tablet rgnt auto w/o microscopy SHARIFA MENON Start: 03-07-2019 Ecg routine ecg w/least 12 lds i&r only Mikaela Pfeiffer Work Phone: Start: 03-07-2019 EKG REPORT Hpf Scanning Start: 03-07-2019 Radiologic exam chest 2 views Mikaela [place] Work Phone: Start: 03-07-2019 Assay of lipase Mikaela [place] Work Phone: Start: 03-07-2019 End: 03-07-2019 Assay of troponin quantitative Mikaela Pfeiffer Work Phone: Start: 03-07-2019 Blood count complete auto&auto difrntl wbc Mikaela [place] Work Phone: Start: 03-07-2019 Comprehensive metabolic panel Mikaela [place] Work Phone: Start: 03-07-2019 Hemoglobin glycosylated a1c [...] Start: 12-13-2018 INITIATE OXYGEN THERAPY PROTOCOL SHARIFA PANGULUR Start: 12-13-2018 RESPIRATORY CARE EVALUATION AND TREAT [...] mntr dev cleared fda spec home use SHAIRFA PANGULUR Start: 12-12-2018 INITIATE OXYGEN THERAPY PROTOCOL SHARIFA PANGULUR Start: 12-12-2018 RESPIRATORY CARE EVALUATION AND TREAT SHARIFA SPIVEYGULUR Start: 12-12-2018 Glucose blood reagent strip SHARIFA [...] dev cleared fda spec home use SHARIFA PANLISETHLUR Start: 12-11-2018 Glucose blood reagent strip SHARIFA SPIVEY GULUR Start: 12-11-2018 Gluc bld gluc mntr dev cleared fda spec home use SHARIFA PANLISETHLUR Start: 12-11-2018 INITIATE OXYGEN THERAPY PROTOCOL SHARIFA MEJÍALUR Start: 12-11-2018 RESPIRATORY CARE EVALUATION AND TREAT SHARIFA MEJÍALUR Start: 12-11-2018 Glucose blood reagent strip SHARIFA CHILDERSLUR Start: 12-11-2018 PLACE INTERMITTENT PNEUMATIC COMPRESSION DEVICE SHARIFA MEJÍALUR Start: 12-11-2018 Gluc bld gluc mntr dev cleared fda spec home use SHARIFA MEJÍALUR Start: 12-11-2018 Basic metabolic panel calcium total SHARIFA ABURTOR Start: 12-11-2018 Blood count complete auto&auto difrntl wbc SHARIFA MEJÍALUR Start: 12-11-2018 RESPIRATORY CARE EVALUATION AND TREAT SHARIFA MEJÍALUR Start: 12-10-2018 Gluc bld gluc mntr dev cleared fda spec home use SHARIFA MEJÍALUR Start: 12-10-2018 Glucose blood reagent strip SHARIFA CHILDERSLUR Start: 12-10-2018 DIET LOW SODIUM 2 GM SHARIFA MEJÍALUR Start: 12-10-2018 FULL CODE SHARIFA MEJÍALUR Start: 12-10-2018 IP CONSULT TO CARDIOLOGY SHARIFA DAVIS UR Start: 12-10-2018 NOTIFY PHYSICIAN (SPECIFY) SHARIFA IVY Start: 12-10-2018 REASON FOR NO MECHANICAL VTE PROPHYLAXIS SHARIFA MEJÍALUR Start: 12-10-2018 VITAL SIGNS SHARIFA MEJÍALUR Start: 12-10-2018 Urnls dip stick/tablet rgnt auto w/o microscopy SHARIFA ABURTOR Start: 12-10-2018 PATIENT STATUS (FROM ED OR OR/PROCEDURAL) SHARIFA PANGULUR Start: 12-10-2018 Assay of troponin quantitative SHARIFA PANGULUR Start: 12-10-2018 IP CONSULT TO FAMILY MEDICINE SHARIFA SPIVEYGULUR Start: 12-10-2018 INITIATE OXYGEN THERAPY PROTOCOL SHARIFA PANGULUR Start: 12-10-2018 Ct abdomen & pelvis w/o contrast material SHARIFA SPIVEYGULUR Start: 12-10-2018 Radiologic exam chest 2 views SHARIFA PANGULUR Start: 12-10-2018 Blood count complete auto&auto difrntl wbc SHARIFA PANGULUR Start: 12-10-2018 Prothrombin time SHARIFA PANGULUR Start: 12-10-2018 Assay of lipase SHARIFA PANGULUR Start: 12-10-2018 Assay of troponin quantitative SHARIFA PANGULUR Start: 12-10-2018 BRAIN NATRIURETIC PEPTIDE SHARIFA SPIVEYGU LUR Start: 12-10-2018 Comprehensive metabolic panel SHARIFA PANGULUR Start: 12-10-2018 Drug screen quantitative digoxin total SHARIFA PANGULUR Start: 12-10-2018 Drug tst prsmv instrmnt chem analyzers pr date SHARIFA PANGULUR Start: 12-10-2018 Ecg routine ecg w/least 12 lds w/i&r SHARIFA SPIVEYGULUR Start: 12-10-2018 EKG REPORT SHARIFA MEJÍALUR Start: 12-10-2018 TELEMETRY MONITORING SHARIFA MEJÍALUR Start: 12-10-2018 INSERT PERIPHERAL IV SHARIFA PANGULUR [...] Author Start: 03-13-2020 [facility] [place] [place] Start: 03-13-2020 Potassium monitoring Potassium monit [place]ing [place] Start: 09-05-2019 A1C test (Diabetic o r Prediabetic) A1C test (Diabetic or Prediabetic) [place], [place] Start: 06-27-2019 DTaP/Tdap/Td vaccine (1 - Tdap) DTaP/Tdap/Td vaccine (1 - Tdap) [place] Comment on above: Postponed from 03/25 (Insurance / Financial) Start: 04-20-2019 End: 04-20-2019 Office Visit 04/20/2019 Office Visit Urology Bryant Eller MD [facility] [facility] [address] [place] [address] [phone] [facility] [place] Start: 02-25-2019 Influenza vaccination Flu vaccine (# 1) [place], [place] Start: 11-22-2018 Annual Wellness Visi t (AWV) Annual Wellness Visit (AWV) [place] Start: 11-30-2017 [object Object] Diabetic foot exam M [place], [place] Start: 05-28-2017 Lipid screen Lipid screen [place], [place] Start: 05-26-2016 Diabetic retinal exam Diabetic retin al exam [place] Start: 03-22-2016 Shingles Vaccine (2 of 3) Shingles Vaccine (2 of 3) [place], [place] Basic Metabolic Pane l w/ Reflex to MG Basic Metabolic Panel w/ Reflex to MG Lab Routine Daily until discontinued starting 03/08/2019, 6 completed [place] Comment on above: Daily until disconti nued starting 03/08/2019, 6 completed HHN Treatment HHN Treatment Respiratory Care Routine Every 4hr while awake until discontinued starting 03/08/2019 [place] Comment on above: Every 4hr while awak e until discontinued starting 03/08/2019 Initiate Oxygen Ther apy Protocol Initiate Oxygen Therapy Protocol Respiratory Care Routine Daily until discontinued starting 03/07/2019 [place] Comment on above: Daily until disconti nued starting 03/07/2019 POCT glucose [place], [place] Comment on above: 4X Daily (AC & HS) u ntil discontinued starting 03/08/2019 As Needed until disc ontinued starting 03/07/2019 Immunizations Immunization Date Immunization Notes Care Provider Fa misbah 03-10-2018 influenza, injectabl e, quadrivalent, preservative free [facility], [place] 02-22-2017 influenza, injectabl e, quadrivalent, contains preservative [facility] 10-01-2016 pneumococcal conjuga te vaccine, 13 valent [facility] 04-01-2016 influenza, injectabl e, quadrivalent, contains preservative [facility] 01-26-2016 zoster vaccine, [facility] [place] 01-02-2016 zoster vaccine, live [facility], [place] 05-26-2015 influenza virus vacc ine, unspecified formulation [place], [place] 05-27-2014 pneumococcal polysaccharide vaccine, 23 valent [facility], [place] 05-10-2013 influenza virus vacc ine, unspecified formulation [facility] , [place] 05-11-2012 influenza virus vacc ine, unspecified formulation [facility] [place] 06-10-2011 influenza virus vacc ine, unspecified formulation [facility] [place] 05-19-2010 influenza virus vacc ine, unspecified formulation Wolfgang [place] Payers Date Payer Category Payer Medicare BCBS MEDICARE AN THEM MEDIBLUE ESSENTIAL/PLUS xxxxxxxxxxxx 2015-Present [address] [address] [place] [address] xxxxxxxxxxxx [id number] 2015 Medicare [id number] 1935 Unknown [id number] 1935 Unknown [id number] [id number] 1935 Unknown [id number] [id number] 1935 Unknown [id number] 2.16.840.1.289246.3.579.2.176 1935 Unknown [id number] 2.16.840.1.106240.3.579.2.176 1935 Unknown [id number] 2.16.840.1.417518.3.579.2.176 1935 Unknown [id number] 2.16.840.1.066378.3.579.2.176 1935 Unknown [id number] 2.16.840.1.912240.3.579.2.176 1937 Unknown [id number] 2.16.840.1.398440.3.579.2.176 1937 Unknown [id number] 2.16.840.1.371087.3.579.2.176 1937 Unknown [id number] 2.16.840.1.384892.3.579.2.176 1937 Unknown [id number] 2.16.840.1.005519.3.579.2.176 1935 Unknown [id number] 2.16.840.1.117774.3.579.2.176 1937 Unknown [id number] 2.16.840.1.552828.3.579.2.176 1937 Unknown [id number] 2.16.840.1.556244.3.579.2.176 1935 Unknown [id number] 2.16.840.1.876807.3.579.2.176 1935 Unknown [id number] [id number] Social History Date Type Detail Facility Start: 03-07-2019 End: 03-16-2019 Tobacco smoking status NHIS Former sm[place], [place] End: 06-27-1967 History of tobacco use Current [place] Start: 03-07-2019 End: 03-16-2019 Cigarettes smoked current (pack per day) - Reported [place] Start: 03-07-2019 End: 03-16-2019 Alcohol intake No [place] Start: 01-06-2015 Tobacco Comment quit over 50 y ears ago [place], [place] Sex Assigned At Not on file [place] Discharge Instructions * Discharge Instr - JEWELL* Renee Fernandez RN - 03/09/2019 12:34 PM EDT Continuity of Care Form Patient Name: Juan Ramon Neville : 1935 Admit date: 03/07/2019 Discharge date: 03/13/2019 Code Status Order: DNR-CC Advance Directives: Advance Care Flowsheet Documentation Date/Time Healthcare Directive Type of Healthcare Directive Copy in Chart Healthcare Agent Appointed Healthcare Agent's Name Healthcare Agent's Phone Number 03/07/192126 Yes, patient has an advance directive for healthcare treatment Admitting Physician: Talia Pastor MD PCP: Talia Pastor MD Discharging Nurse: Anca HOFFMANN Discharging Hospital Unit/Room#: 2043/2043-01 Discharging Unit Emergency Contact: Extended Emergency Contact Information Primary Emergency Contact: Alvin Neville Relation: Child Secondary Emergency Contact: Aleksandra Neville [facility] Mobile Relation: None Past Surgical History: Past [...] and older Afluria) 03/10/2018 Pneumococcal Conjugate 13-valent (Iolrkeo28) 10/01/2016 Pneumococcal Polysaccharide (Vobsmpysz68) 05/27/2014 Zoster Live (Zostavax) 01/02/2016, 01/26/2016 Active [...] kidney disease) stage 3, GFR 30-59 ml/min ([facility]) N18.3 Hypercholesteremia E78.00 Mild pulmonary hypertension ([facility]) I27.20 Moderate tricuspid regurgitation I07.1 Presence of Watchman left atrial appendage closure device Z95.818 Urinary retention due to benign prostatic hyperplasia N40.1, R33.8 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 Temp 97.3 F (36.3 C) (Oral) Resp 16 Ht 5' 10 (1.778 m) Wt 150 lb 9.2 oz (68.3 kg) PoZ650% BMI 21.61 kg/m Last documented pain score (0-10 scale): Pain Level: 3 Last Weight: Wt Readings from Last 1 Encounters: 03/09/19 150 lb 9.2 oz (68.3 kg) Mental Status: oriented and alert IV Access: - None Nursing Mobility/ADLs: Walking Assisted Transfer Assisted Bathing Assisted Dressing Assisted Toileting Assisted Feeding Assisted Leadership Development Consultant Assisted Med Delivery whole Wound Care Documentation [...] only, NOT a DME order): Other Treatments: retirement assessment, medication education and monitoring, resume previous orders Patient's personal belongings (please select all that are sent with patient): None RN SIGNATURE: MANAGEMENT/SOCIAL WORK SECTION Inpatient Status Date: 03/07/2019 Readmission Risk Assessment Score: Readmission Risk Risk of Unplanned Readmission: 19 Discharging to Facility/ Agency Name: [facility] (formerly [facility]) Address: [address] [facility] [address] rn clinical coordinator crystal [phone] Fax: Gre Tutor/Auto Body Shop Manager signature: ICIAN SECTION Prognosis: Guarded Condition at Discharge: Stable Rehab Potential (if transferring to Rehab): Guarded Recommended Labs or Other Treatments After Discharge: Physician Certification: I certify the above information and transfer of Juan Ramon Neville is necessary for the continuing treatment of the diagnosis listed and that he requires Penitentiary Facility for less 30 days. Update Admission [...] medications. --- Having trouble affording medications? Try [facility]! (This is not a hospital endorsed website, merely a recommendation based on my own personal experiences with [facility]) --- Questions? Contact me anytime. Javier Devries MD, JAYSON --- --- * Attachments The following attachments cannot be sent through Care Everywhere. * Urinary Retention (Kinyarwanda) documented in this encounter History of Present [...] Donald OTA - 03/12/2019 10:40 AM EDT [facility] OCCUPATIONAL THERAPY MISSED TREATMENT NOTE INPATIENT Date: 03/12/19 Patient Name: Juan Ramon Neivlle Room: : 1935 (83 y.o.) Gender: male [...] in the note per my discussion with MANAGER RELATIONSHIP * Talia Pastor MD - 03/11/2019 1:42 [...] Daily Talia Pastor MD 240 mg at 03/11/1939 fenofibrate tablet 160 mg 160 mg Oral Daily Talia Pastor MD 160 mg at 03/11/1939 finasteride (PROSCAR) tablet 5 mg 5 mg Oral Daily Talia Pastor MD 5 mg at 03/11/1939 furosemide (LASIX) tablet 40 mg 40 mg Oral Daily Talia Pastor MD 40 mg at 03/11/19 0940 insulin glargine (LANTUS) injection vial 10 Units 10 Units Subcutaneous QAM Talia Pastor MD10 Units at 03/11/19 0900 lisinopril (PRINIVIL;ZESTRIL) tablet 40 mg 40 mg Oral Daily Talia Pastor MD 40 mg at 03/11/1941 magnesium oxide (MAG-OX) tablet 400 mg 400 mg Oral Daily Talia Pastor MD 400 mg at 2 metoprolol succinate (TOPROL XL) extended release tablet 100 mg 100 mg Oral Daily Talia Pastor MD 100 mg at 03/11/19 0942 linagliptin (TRADJENTA) tablet 5 mg 5 mg Oral Daily Talia Pastor MD 5 mg at 03/11/1941 tamsulosin (FLOMAX) capsule 0.8 mg 0.8 mg [...] solution 2.5 mg 2.5 mg Nebulization Q4H VT Talia Pastor MD 2.5 mg at 03/11/19 [...] in the note per my discussion with MANAGER RELATIONSHIP * Andrew Duncan MD - 03/11/2019 11:25 AM EDT [facility] Note 03/11/2019 11:25 [...] Subcutaneous Nightly albuterol 2.5 mg Nebulization Q4H VT sodium chloride flush 10 mL Intravenous 2 [...] and corrected by editing. ANDREW DUNCAN MD FAC * Candy Johnston, SHUN - 03/10/2019 9:00 [...] coccyx. Will continue to monitor. * Davonte Paz, PT - 03/10/2019 11:46 AM EDT Physical Therapy Facility/Department: [facility] Daily Treatment Note NAME: Juan Ramon Neville : 1935 Date of Service: 03/10/2019 Discharge Recommendations: ECF with PT PT Equipment Recommendations Equipment Needed: No Assessment Assessment: progressing well in Gait REQUIRES PT FOLLOW UP: Yes Activity Tolerance Activity Tolerance: Patient Tolerated treatment well Patient Diagnosis(es): The primary encounter diagnosis was VAENSA (acute kidney injury) (HCC). Diagnoses of Pneumonia [...] either direction w/ supervision using rail, nurse Macy deferred OOB due to confusion & yelling, [...] Duncan MD - 03/10/2019 10:48 AM EDT [facility] Progress Note 03/10/2019 10:48 [...] Subcutaneous Nightly albuterol 2.5 mg Nebulization Q4H VT sodium chloride flush 10 mL Intravenous 2 [...] and corrected by editing. ANDREW DUNCAN MD [facility] * Talia Pastor MD - [...] Daily Talia Pastor MD 5 mg at 03/09/19 0915 tamsulosin (FLOMAX) capsule 0.8 mg 0.8 mg Oral Daily Talia Pastor MD 0.8 mg at 03/09/19 09 vitamin E capsule 400 Units 400 Units [...] Talia Pastor MD 3 Units at 03/09/19 1703 insulin lispro (HUMALOG) injection vial 0-3 Units 0-3 Units Subcutaneous Nightly Talia Pastor MD 1 Units at 03/09/192113 albuterol (PROVENTIL) nebulizer solution 2.5 mg 2.5 mg Nebulization Q4H VT Talia Pastor MD 2.5 mg at 03/10/19 0657 sodium chloride flush 0.9 % injection 10 mL 10 mL Intravenous 2 times per day Talia Pastor MD 10 mL at 03/09/19 211 sodium chloride flush 0.9 % injection 10 [...] of care discussed with Dr Bart HUERTA, SOLDERER BARREL RIBS - CORPORATE BOND TRADER REASON FOR VISIT: Pl effusion, dyspnea I examined the patient myself The assessment and Plan in the note per my discussion with MANAGER RELATIONSHIP * Andrew Duncan MD - 03/09/2019 5:32 PM EDT [facility] Progress Note 03/09/2019 5:32 [...] 03/07/19 1705 PROBNP 946* Pulse Ox: SpO2 Av.3 % [...] 3:33 PM EDT Physical Therapy REVISED GOALS [facility] Date: 03/09/19 Patient Name: Juan Ramon Neville Room: Account: [id number] : 1935 (83 y.o.) Gender: male 03/09/19 5386 Short term goals Time Frame for Short [...] w/ CGA x 1 * Megan Jackson, TRENCH DIGGER HELPER - 03/09/2019 12:31 PM EDT Physical Therapy [facility] Physical Therapy Progress Note Date: 03/09/19 Patient Name: Juan Ramon Neville Room: Account: [id number] : 1935 (83 y.o.) Gender: male Discharge [...] states pt had been using O2 at [facility], walking with RW (had Rollator at home for 1 wk before pt developed PNA, admitted to [facility]); CHF is at point where fluid around lungs is normal/expected, better controlled since admission, with Lasix; blood sugars have been running high. Daughter states pt was Dx'd with UTI, which exacerbated his dementia. Pt states everything was (felt) screwed up yesterday. Comments: HSUN March OK'd tx, reports pt is more oriented [...] exercises 1: Seated B LE ther ex, AROM/council resistance band, 15x each Other exercises 2: [...] Lagunas, OT - 03/09/2019 10:56 AM EDT [facility] Occupational Therapy Evaluation Date: 03/09/19 Patient Name: Juan Ramon Neville Room: Account: [id number] : 1935 (83 y.o.) Gender: male Discharge [...] Assistance: Independent(uses RW) Transfer Assistance: Independent Active Cradle Placer: Yes Mode of Transportation: Car Occupation: Retired Additional Comments: Pt and Pt's daughter report that he has been at [facility] since Mid-December. Pt has been receiving PT/OT [...] UE Function LUE Strength Gross LUE Strength: WFL L Hand General: 4+/5 LUE Strength Comment: Shoulder 4+/5, elbow 4+/5 LUE Tone: Normotonic LUE AROM (degrees) LUE AROM : WFL Left Hand AROM (degrees) Left Hand AROM: WFL RUE Strength Gross RUE Strength: WFL R Hand General: 4+/5 RUE Strength Comment: [...] AM-PAC Inpatient Daily Activity Raw Score: 18 AM-[facility] Inpatient ADL T-Scale Score : 38.66 ADL Inpatient CMS 0-100% Score: 46.65 ADL Inpatient CMS G-Code Modifier : CK Goals Patient Goals [...] Subcutaneous Nightly albuterol 2.5 mg Nebulization Q4H VT sodium chloride flush 10 mL Intravenous 2 [...] ABGs: No results for input(s): PHART, PO2ART, XPG8HDD, NBD0OES, BEART, C9MURWEM, QKF4ZCB in the last 72 hours. PT/INR: No [...] Daily Talia Pastor MD 240 mg at 03/08/19824 digoxin (LANOXIN) tablet 125 mcg 125 mcg Oral Daily Talia Pastor MD 125 mcg at 03/08/19 0825 fenofibrate tablet 160 mg 160 mg Oral Daily Talia Pastor MD 160 mg at 03/08/19 08 finasteride (PROSCAR) tablet 5 mg 5 mg Oral Daily Talia Pastor MD 5 mg at 03/08/19 08 furosemide (LASIX) tablet 40 mg 40 mg Oral Daily Talia Pastor MD 40 mg at 03/08/19824 insulin glargine (LANTUS) injection vial 10 Units 10 Units Subcutaneous QAM Talia Pastor MD10 Units at 03/08/19 08 lisinopril (PRINIVIL;ZESTRIL) tablet 40 mg 40 mg Oral Daily Talia Pastor MD 40 mg at 03/08/19 08 magnesium oxide (MAG-OX) tablet 400 mg 400 mg Oral Daily Talia Pastor MD 400 mg at 825 metoprolol succinate (TOPROL XL) extended release tablet 100 mg 100 mg Oral Daily Talia Pastor MD 100 mg at 03/08/19 112 linagliptin (TRADJENTA) tablet 5 mg 5 mg [...] vial 0-6 Units 0-6 Units Subcutaneous TID WC Talia Pastor MD 4 Units at 03/08/19 1128 insulin lispro (HUMALOG) injection vial 0-3 Units 0-3 Units Subcutaneous Nightly Talia Pastor MD 1 Units at 03/08/19 2145 albuterol (PROVENTIL) nebulizer solution 2.5 mg 2.5 mg Nebulization Q4H WA Talia Pastor MD 2.5 mg at 03/09/19 [...] capsule 20 mg 20 mg Oral BID WC Talia Pastor MD 20 mg at 03/08/19 [...] agree. Talia Pastor MD 03/09/2019 * Chelsy El, PLATING INSPECTOR - 03/08/2019 2:48 PM EDT SW spoke to Crystal from [facility]. She will start the pre-cert for pt's return to facility. * Dayan Ledbetter, PT - 03/08/2019 9:39 AM EDT Physical Therapy Facility/Department: [facility] Initial Assessment NAME: Juan [...] walker- up independently) Transfer Assistance: Independent Active Cradle Placer: Yes Mode of Transportation: Car Occupation: Retired [...] CMS 0-100% Score: 86.62 (03/08/19849) Mobility Inpatient CMS G-Code Modifier : CM (03/08/19849) Goals Short [...] Group Co-treatment Time In 0850 Time Out 0922 Minutes 32 Timed Code Treatment Minutes: 12 Minutes Dayan Ledbetter PT * Xu Grimes RCP - 03/08/2019 7:17 AM EDT Found patient on Room Air. Pulse Ox reading of 98% Patient complained of SOB. Placed on Cannula at 3.0 lpm RN informed. * Bradford Lagunas, SHUN - 03/07/2019 11:35 PM EDT Spoke with Dr. Rosado, plan to see in the morning no new orders at this time. * Bradford Lagunas, SHUN - 03/07/2019 9:25 PM EDT Patient arived to room 2043 from ER, bed left in lowest, locked positing with call light with in reach, no distress noted at this time * Michelle Mei [facility] - 03/07/2019 8:49 PM EDT Medication History [...] facility list. Thank you, Michelle Mei PharmD, [facility] [phone] documented in this encounter* Michelle Mei RPH - 03/27/2019 6:32 PM EDT Medication History completed: New medications: none Medications discontinued: none Changes to dosing: Fenofibrate changed to nightly Furosemide changed to twice daily Potassium chloride changed to ER tablet formulation Stated allergies: As listed Other pertinent information: Medications confirmed with facility list. Thank you, Michelle Mei PharmD, [facility] [phone] documented in this encounter Assessments Diagnosis Pneumonia- Primary Pneumonia, organism unspecified VANESA (acute kidney injury) ([facility]) Acute kidney failure, unspecified Pneumonia due to organism Pneumonia due to other specified organism Acute cystitis without hematuria Acute cystitis Atrial fibrillation (HCC) Atrial fibrillation Benign essential hypertension Essential hypertension, benign Chronic diastolic heart failure, NYHA class 2 (HCC) Chronic diastolic heart failure CKD (chronic kidney disease) stage 3, GFR 30-59 ml/min ([facility]) Chronic kidney disease, Stage III (moderate) CHF with cardiomyopathy ([facility]) Congestive heart failure, unspecified 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 Mild pulmonary hypertension (HCC) Other chronic pulmonary heart diseases SVT (supraventricular tachycardia) ([facility]) Other specified cardiac dysrhythmias Uncontrolled type 2 diabetes mellitus without complication, with long-term current use of insulin (HCC) Urinary retention due to benign prostatic hyperplasia Diagnosis Acute kidney injury (HCC)- Primary Acute kidney failure, unspecified Diagnosis Acute urinary retention- Primary Other specified retention of urine Advance Directives Documents on File Type Date Recorded Patient Calender Feeder Expl anation Advance Directives and Livin g Will 03/07/2018 9:31 AM MBFP Advance Directives and Livin g Will 01/09/2015 10:42 AM Power of Convex Grinder Operator Power of Convex Grinder Operator 01/09/2015 10:42 AM Latest Code Status on [...] To Contact Diagnoses Pneumonia Talia Pastor MD [address] [address] [facility] Reason Comments Abnormal Lab Creatinine: 2.83 Reason Comments Urinary Retention (unrecognized sect ion and content) No Status Records Found INFORMATION SOURCE (unrecogn ized section and content) DATE CREATED AUTHOR 03/28/2019 [facility] FOR RECORDS PERTAINING TO PATIENTS WHO [...] BE BASED ON THE PRIMARY CLINICAL RECORDS. [facility]. provides no warranty or guarantee of the accuracy or completeness of information in this document.
[2023-08-01 08:46] LABS: Ammonia 35 umol/L (11-32)
[2023-08-01 08:55] LABS: Alanine Aminotransferase 21 U/L (16-63); Albumin Globulin Ratio 0.6; Albumin Level 2.6 g/dL (3.4-5.0); Alkaline Phosphatase 76 U/L (46-116); Aspartate Amino Transferase 26 U/L (15-37); BUN Creatinine Ratio 15.2; Bilirubin Total 0.5 mg/dL (0.2-1.0); Carbon Dioxide 30.2 mmol/L (21.0-32.0); Chloride 102 mmol/L (98-107); Estimated GFR (African America 39 (>=60); Estimated GFR (Non-African Ame 32 (>=60); Globulin 4.1 g/dL; Glucose 171 mg/dL (74-106); Potassium 4.2 mmol/L (3.5-5.1); Sodium 139 mmol/L (136-145); Total Protein 6.7 g/dL (6.4-8.2)
== END 2023-08-01 01:52 | disposition home or self-care (01) ==
LOC: LAB 01:51
PROVIDERS: Visit Provider Family Medicine
DX: K74.60 Unspecified cirrhosis of liver (principal); I50.32 Chronic diastolic (congestive) heart failure
CPT/HCPCS: 36415; 80053; 82140

== ENCOUNTER 2023-08-05 02:25 | Outpatient (REF) | payer MEDICARE, SELFPAY ==
--- OUTSIDE RECORDS SUMMARY | 2023-08-05 02:30 | XMS_ITS | CCD ---
Author Name Unknown Address [address] [place] [address] Organization [facility] Care Team Providers Care Vulnerability Assessment Analyst Name Role Phone Pastor, Talia Stipe Primary Care Provider ALLYSSAGUIKE HALEHAKAR N Referring Unavailable PASTOR, TALIA STIPE Primary Care Unavailable PASTOR, TALIA STIPE Referring Unavailable PASTOR, TALIA STIPE Primary Care Unavailable PANGULUR SHARIFA N Referring Unavailable PASTOR, TALIA STIPE Primary Care Unavailable PANGUMICR SHARIFA N Referring Unavailable PASTOR, TALIA STIPE Primary Care Unavailable PASTOR, TALIA STIPE Referring Unavailable PASTOR, TALIA STIPE Primary Care Unavailable ADUSELIZABETH CHAPA Referring Unavailable PASTOR, TALIA STIPE Primary Care Unavailable ADUSEDUARD ELIZABETH K Referring Unavailable PASTOR, TALIA STIPE Primary Care Unavailable ADUSUMIKYRAI ELIZABETH K Referring Unavailable PASTOR, TALIA STIPE Primary Care Unavailable ADUSUMILLI ELIZABETH K Referring Unavailable PASTOR, TALIA STIPE Primary [...] Admitting Unavailable TALIA PASTOR Attending Unavailable ANDREW KNOTT Consulting Unavailable GURU REBOLLEDO Consulting Unavailable JAVIER BUCHANAN Attending Unavailable TALIA PASTOR Primary Care Unavailable TALIA PASTOR Primary Care Unavailable JOSH CUEVAS Attending Unavailable TALIA PASTOR Consulting Unavailable Unavailable Primary Care Provider Unavailabl e Allergies Allergy Classification Reported Allergen(s) Allergy Type Date of Onset Reaction(s) Facility (3 sources) diphenhydrAMINE Drug Allergy 04-19-2012 [facility], [place] Medications Current Medications Medication Drug Class(es) Dates Sig (Normalized) Sig (Original) acetaminophen 325 mg oral tablet (4 sources) Start: 03-07-2019 650 mg, Oral, EVERY 4 HOURS PRN, Pain Mild (1-3), Fever, For temp greater than 100.5 F (38 C), Starting Tue03/07/19 at 2122 Maximum dose of acetaminophen is 4000 mg from all sources in 24 hours. take 2 tablets by mo [facility] every four hours as needed for [...] NOT ALERT or NPO., Starting Tue03/07/19 at 2 If patient does not respond within 5 [...] 6 HOURS PRN, Nausea, Starting Tue03/07/19 at 2 microencapsulated potassium chloride 20 meq extended release [...] every IV line use, Starting Tue03/07/19 at 2121 tamsulosin hydrochloride 0.4 mg oral capsule (5 [...] mg, Intravenous, ONCE PRN, Agitation, agitation, Starting Tue03/07/19 at 2122, For 1 dose IM route [...] Results Test Name Value Interpretation Reference Range Facility ALL AMMONIAon 08-01-2023 Ammonia (P) [Moles/Vol] 35 umol/L High 11 - 32 umol/L [facility] Interpretation and review of laboratory results Abnormal [facility] e Basic Metabolic Panelon 100 Anion gap [Moles/Vol] 13 mmol/L 9 - 17 mmol/L [place] Bun/Cre Ratio NOT REPORTED [place], [place] Calcium [Mass/Vol] 9.3 mg/dL 8.6 - 10. 4 mg/dL [place] Chloride [Moles/Vol] 99 mmol/L 98 - 10 7 mmol/L [place] CO2 [Moles/Vol] 24 mmol/L 20 - 31 mmol/L [place] Creatinine [Mass/Vol] 2.75 mg/dL High 0.7 - 1.2 mg/dL [place] GFR 27 mL/min Low >60 [place] GFR Non- 22 mL/min Low >60 [place] GFR/1.73 sq M predicted among non-blacks MDRD (S/P/Bld) [Vol rate/Area] NOT REPORTED [place] GFR/1.73 sq M predicted among non-blacks MDRD (S/P/Bld) [Vol rate/Area] [place] Comment on above: Average GFR for 70 o r more years old: 75 mL/min/1.73sq m Chronic Kidney Disease: <60 mL/min/1.73sq m Kidney failure: <15 mL/min/1.73sq m eGFR calculated using average adult body mass. Additional eGFR calculator available at: http://www.TrunqShow/multiple_crcl_2012.htm Glucose [Mass/Vol] 92 mg/dL 70 - 99 mg/dL [place], [place] Interpretation and review of laboratory results Abnormal [place] Potassium [Moles/Vol] 5.2 mmol/L 3.7 - 5.3 mmol/L [place] Sodium [Moles/Vol] 136 mmol/L 135 - 144 mmol/L [place] Urea nitrogen [Mass/Vol] 61 mg/dL High 8 - 23 mg/dL [place] Basic Metabolic Profon 03-27 (cont.) Normal [facility] Comment on above: Result Comment: Aver age GFR for 70 or more years old: 75 mL/min/1.73sq m Chronic Kidney Disease: <60 mL/min/1.73sq m Kidney failure: <15 mL/min/1.73sq m eGFR calculated using average adult body mass. Additional eGFR calculator available at: http://www.TrunqShow/multiple_crcl_2012.htm Performed By: #### H H, BMP #### [facility] [address] [place], [place] [id number] Telephone Clerk Telegraph Office: Con Oseguera MD Anion gap [Moles/Vol] 13 mmol/L Normal - [facility] Comment on above: Performed By: #### H H, BMP #### [facility] [address] [place], [place] [id number] Telephone Clerk Telegraph Office: Con Oseguera MD Calcium [Mass/Vol] 9.3 mg/dL Normal 8.6-10.4 [facility] Comment on above: Performed By: #### H H, BMP #### [facility] [address] [place] [address] Telephone Clerk Telegraph Office: Con Oseguera MD Chloride [Moles/Vol] 99 mmol/L Normal 98-107 [facility] Comment on above: Performed By: #### H H, BMP #### [facility] [address] [place] [address] Telephone Clerk Telegraph Office: Con Oseguera MD CO2 [Moles/Vol] 24 mmol/L Normal 20-31 [facility] Comment on above: Performed By: #### H H, BMP #### [facility] [address] [place] [address] Telephone Clerk Telegraph Office: Con Oseguera MD Creatinine [Mass/Vol] 2.75 mg/dL High 0.70-1.20 [facility] Comment on above: Performed By: #### H H, BMP #### [facility] [address] [place] [address] Telephone Clerk Telegraph Office: Con Oseguera MD GFR, Amer 27 mL/min Low >60 [facility] Comment on above: Performed By: #### H H, BMP #### [facility] [address] [place] [address] Telephone Clerk Telegraph Office: Con Oseguera MD GFR,non Amer 22 mL/min Low >60 [facility] Comment on above: Performed By: #### H H, BMP #### [facility] [address] [place] [address] Telephone Clerk Telegraph Office: Con Oseguera MD Glucose [Mass/Vol] 92 mg/dL Normal 70-99 [facility] Comment on above: Performed By: #### H H, BMP #### [facility] [address] [place] [address] Telephone Clerk Telegraph Office: Con Oseguera MD Potassium [Moles/Vol] 5.2 mmol/L Normal 3.7-5.3 [facility] Comment on above: Performed By: #### H H, BMP #### [facility] [address] [place] [address] Telephone Clerk Telegraph Office: Con Oseguera MD Sodium [Moles/Vol] 136 mmol/L Normal 135-144 [facility] Comment on above: Performed By: #### H H, BMP #### [facility] [address] [place] [address] Telephone Clerk Telegraph Office: Con Oseguera MD Urea nitrogen [Mass/Vol] 61 mg/dL High 8-23 [facility] Comment on above: Performed By: #### H H, BMP #### [facility] [address] [place] [address] Telephone Clerk Telegraph Office: Con Oseguera MD BUN/CRE Ratio NOT REPORTED Normal 9-20 [facility] Comment on above: Performed By: #### H H, BMP #### [facility] [address] [place] [address] Telephone Clerk Telegraph Office: Con Oseguera MD Staging: NOT REPORTED Normal [facility] Comment on above: Performed By: #### H H, BMP #### [facility] [address] [place] [address] Telephone Clerk Telegraph Office: Con Oseguera MD CBC Auto Differentialon 10-0 Basophils (Bld) [#/Vol] 0.08 10*3/uL [facility], [place] Basophils/100 WBC (Bld) 1 % 0 - 2 % [facility] Differential Type NOT REPORTED [facility] Eosinophils (Bld) [#/Vol] 0.39 10*3/uL [place] Eosinophils/100 WBC (Bld) 5 % High 0 - 4 % [place] Erythrocyte distribution width (RBC) [Ratio] 28.8 % High 11.5 - 14.9 % [place] Hematocrit (Bld) [Volume fraction] 33.5 % Low 41 - 53 % [place] Hemoglobin (Bld) [Mass/Vol] 10.5 g/dL Low 13.5 - 17.5 g/dL [place] Interpretation and review of laboratory results Abnormal [place] Lymphocytes (Bld) [#/Vol] 2.00 10*3/uL [place] Lymphocytes/100 WBC (Bld) 26 % 24 - 44 % [place] MCH (RBC) [Entitic mass] 23.6 pg Low 26 - 34 pg [place] MCHC (RBC) [Mass/Vol] 31.3 g/dL 31 - 37 g/dL [place] MCV (RBC) [Entitic vol] 75.4 fL Low 80 - 100 fL [place] Monocytes (Bld) [#/Vol] 0.69 10*3/uL [place] Monocytes/100 WBC (Bld) 9 % High 1 - 7 % [place] Morphology Theo (Bld) [Interp] 1+ ELLIPTOCYTES [place] Morphology Theo (Bld) [Interp] 1+ ECHINOCYTES [place] Morphology Theo (Bld) [Interp] ANISOCYTOSIS PRESENT [place] Platelet mean volume (Bld) [Entitic vol] 8.9 fL 6 - 12 fL [place], [place] Platelets (Bld) [#/Vol] NOT REPORTED [place] Platelets (Bld) [#/Vol] 305 10*3/uL [place] RBC (Bld) [#/Vol] 4.44 10*6/uL Low 4.5 - 5.9 m/uL [place], [place] RBC morphology finding Nom (Bld) NOT REPORTED [place] Segmented neutrophils/100 WBC (Bld) 59 % 36 - 66 % [place] Segs Absolute 4.54 [place] WBC (Bld) [#/Vol] NOT REPORTED per 100 WBC [place] WBC (Bld) [#/Vol] 7.7 10*3/uL [place] WBC Morphology NOT REPORTED [place], [place] CBC with Diffon 03-27-2019 Abs. Basophil 0.08 k/uL Normal 0.0-0.2 [facility] Comment on above: Performed By: #### H H, BMP #### [facility] [address] [facility] [place] [address] Telephone Clerk Telegraph Office: Con Oseguera MD Abs.Neutrophil (Seg) 4.54 k/uL Normal 1.3-9.1 [facility] Comment on above: Performed By: #### H H, BMP #### [facility] [address] [facility] [place] [address] Telephone Clerk Telegraph Office: Con Oseguera MD Basophils/100 WBC (Bld) 1 % Normal 0-2 [facility] Comment on above: Performed By: #### H H, BMP #### [facility] [address] [facility] [place] [address] Telephone Clerk Telegraph Office: Con Oseguera MD Eosinophils (Bld) [#/Vol] 0.39 10*3/uL Normal 0.0-0.4 [facility] Comment on above: Performed By: #### H H, BMP #### [facility] [address] [facility] [place] [address] Telephone Clerk Telegraph Office: Con Oseguera MD Eosinophils/100 WBC (Bld) 5 % High 0-4 [facility] Comment on above: Performed By: #### H H, BMP #### [facility] [address] [facility] [place] [address] Telephone Clerk Telegraph Office: Con Oseguera MD Lymphocytes (Bld) [#/Vol] 2.00 10*3/uL Normal 1.0-4.8 [facility] Comment on above: Performed By: #### H H, BMP #### [facility] [address] [place] [address] Telephone Clerk Telegraph Office: Con Oseguera MD Lymphocytes/100 WBC (Bld) 26 % Normal 24-44 [facility] Comment on above: Performed By: #### H H, BMP #### [facility] [address] [place] [address] Telephone Clerk Telegraph Office: Con Oseguera MD Monocytes (Bld) [#/Vol] 0.69 10*3/uL Normal 0.1-1.3 [facility] Comment on above: Performed By: #### H H, BMP #### [facility] [place] [address] Telephone Clerk Telegraph Office: Con Oseguera MD Monocytes/100 WBC (Bld) 9 % High 1-7 [facility] Comment on above: Performed By: #### H H, BMP #### [facility] [place] [address] Telephone Clerk Telegraph Office: Con Oseguera MD Morphology Theo (Bld) [Interp] ANISOCYTOSIS PRESENT Normal [facility] Comment on above: Result Comment: 1+ ELLIPTOCYTES 1+ ECHINOCYTES Performed By: #### H H, BMP #### [facility] [address] [place] [address] Telephone Clerk Telegraph Office: Con Oseguera MD Neutrophil (Seg) 59 % Normal 36-66 [facility] Comment on above: Performed By: #### H H, BMP #### [facility] [address] [place] [address] Telephone Clerk Telegraph Office: Con Oseguera MD Erythrocyte distribution width (RBC) [Ratio] 28.8 % High 11.5-14.9 [facility] Comment on above: Performed By: #### H H, BMP #### [facility] [place] [address] Telephone Clerk Telegraph Office: Con Oseguera MD Hematocrit (Bld) [Volume fraction] 33.5 % Low 41-53 [facility] Comment on above: Performed By: #### H H, BMP #### [facility] [address] [place] [address] Telephone Clerk Telegraph Office: Con Oseguera MD Hemoglobin (Bld) [Mass/Vol] 10.5 g/dL Low 13.5-17.5 [facility] Comment on above: Performed By: #### H H, BMP #### [facility] [address] [place] [address] Telephone Clerk Telegraph Office: Con Oseguera MD MCH (RBC) [Entitic mass] 23.6 pg Low 26-34 [facility] Comment on above: Performed By: #### H H, BMP #### [facility] [address] [place] [address] Telephone Clerk Telegraph Office: Con Oseguera MD MCHC (RBC) [Mass/Vol] 31.3 g/dL Normal 31-37 [facility] Comment on above: Performed By: #### H H, BMP #### [facility] [address] [place] [address] Telephone Clerk Telegraph Office: Con Oseguera MD MCV (RBC) [Entitic vol] 75.4 fL Low 80-100 [facility] Comment on above: Performed By: #### H H, BMP #### [facility] [place] [address] Telephone Clerk Telegraph Office: Con Oseguera MD Platelet mean volume (Bld) [Entitic vol] 8.9 fL Normal 6.0-12.0 [facility] Comment on above: Performed By: #### H H, BMP #### [facility] [facility] [place] [address] Telephone Clerk Telegraph Office: Con Oseguera MD Platelets (Bld) [#/Vol] 305 10*3/uL Normal 150-450 [facility] Comment on above: Performed By: #### H H, BMP #### [facility] [place] [address] Telephone Clerk Telegraph Office: Con Oseguera MD RBC (Bld) [#/Vol] 4.44 10*6/uL Low 4.5-5.9 [facility] Comment on above: Performed By: #### H H, BMP #### [facility] [address] [place] [address] Telephone Clerk Telegraph Office: Con Oseguera MD WBC (Bld) [#/Vol] 7.7 10*3/uL Normal 3.5-11.0 [facility] Comment on above: Performed By: #### H H, BMP #### [facility] [address] [place] [address]. [place] [address] Telephone Clerk Telegraph Office: Con Oseguera MD Abs.Imm.Granulocyte NOT REPORTED Normal 0.00-0.30 [facility] [place] Comment on above: Performed By: #### H H, BMP #### [facility] [address] [place] [address] Telephone Clerk Telegraph Office: Con Oseguera MD Auto Diff Performed NOT REPORTED Normal [facility] Comment on above: Performed By: #### H H, BMP #### [facility] [address] [place] [address] Telephone Clerk Telegraph Office: Con Oseguera MD Immature granulocytes (Bld) [#/Vol] NOT REPORTED Normal 0 [facility] Comment on above: Performed By: #### H H, BMP #### [facility] [address] [facility] [place] [address] Telephone Clerk Telegraph Office: Con Oseguera MD NRBC Automated NOT REPORTED Normal [facility] Comment on above: Performed By: #### H H, BMP #### [facility] [address] [facility] [place] [address] Telephone Clerk Telegraph Office: Con Oseguera MD Platelets (Bld) [#/Vol] NOT REPORTED Normal [facility] Comment on above: Performed By: #### H H, BMP #### [facility] [address] [facility] [place] [address] Telephone Clerk Telegraph Office: Con Oseguera MD RBC morphology finding Nom (Bld) NOT REPORTED Normal [facility] Comment on above: Performed By: #### H H, BMP #### [facility] [address] [facility] [place] [address] Telephone Clerk Telegraph Office: Con Oseguera MD WBC Morphology NOT REPORTED Normal [facility] Comment on above: Performed By: #### H H, BMP #### [facility] [address] [facility] [place] [address] Telephone Clerk Telegraph Office: Con Oseguera MD Otheron 03-27-2019 Immature granulocytes (Bld) [#/Vol] NOT REPORTED [facility] [place] Microscopic Urinalysison Amorphous, UA NOT REPORTED None [facility] [place] Bacteria, UA NOT REPORTED None [facility] [place] Crystals UA NOT [...] Trichomonas, UA NOT REPORTED [facility] [place] [place] WBC, UA 0 TO 2 /HPF [facility], [place] Yeast, UA NOT REPORTED None [facility], [place] - [facility], [place] Otheron 03-16-2019 Casts UA /LPF [facility], [place] UA w/Reflex Cultureon 2018 Acetoacetic Acid,Ur Negative Normal NEG [facility] Comment on above: Performed By: #### H H, BMP #### [facility] [address] [place] [address] Telephone Clerk Telegraph Office: Con Oseguera MD Bilirubin, SemiQt,Ur Negative Normal NEG [facility] Comment on above: Performed By: #### H H, BMP #### [facility] [address] [place] [address] Telephone Clerk Telegraph Office: Con Oseguera MD Color (U) YELLOW Normal YEL [facility] Comment on above: Performed By: #### H H, BMP #### [facility] [address] [place] [address] Telephone Clerk Telegraph Office: Con Oseguera MD Glucose Ql (U) Negative Normal NEG [facility] Comment on above: Performed By: #### H H, BMP #### [facility] [address] [place] [address] Telephone Clerk Telegraph Office: Con Oseugera MD Hemoglobin, Ur SMALL Abnormal NEG [facility] Comment on above: Performed By: #### H H, BMP #### [facility] [address] [place] [address] Telephone Clerk Telegraph Office: Con Oseguera MD Leukocyte esterase Test strip Ql (U) Negative Normal NEG [facility] Comment on above: Performed By: #### H H, BMP #### [facility] [address] [place] [address] Telephone Clerk Telegraph Office: Con Oseguera MD Nitrite,Ur Negative Normal NEG [facility] Comment on above: Performed By: #### H H, BMP #### [facility] [address] [place] [address] Telephone Clerk Telegraph Office: Con Oseguera MD pH (U) 6.5 [pH] Normal 5.0-8.0 [facility] Comment on above: Performed By: #### H H, BMP #### [facility] [address] [place] [address] Telephone Clerk Telegraph Office: Con Oseguera MD Protein Ql (U) Negative Normal NEG [facility] Comment on above: Performed By: #### H H, BMP #### [facility] [place] [address] Telephone Clerk Telegraph Office: Con Oseguera MD Specific gravity (U) [Rel density] 1.008 Normal 1.000-1.030 [facility] Comment on above: Performed By: #### H H, BMP #### [facility] [facility] [address] Telephone Clerk Telegraph Office: Con Oseguera MD Turbidity CLEAR Normal CLEAR [facility] Comment on above: Performed By: #### H H, BMP #### [facility] [address] [facility] [address] Telephone Clerk Telegraph Office: Con Oseguera MD Urobilinogen,Ur Normal Normal NORM [facility] Comment on above: Performed By: #### H H, BMP #### [facility] [address] [place] [address] Telephone Clerk Telegraph Office: Con Oseguera MD Comment NOT REPORTED Normal [facility] Comment on above: Performed By: #### H H, BMP #### [facility] [address] [facility] [place] [address] Telephone Clerk Telegraph Office: Con Oseguera MD Urinalysis Reflex to Culture on 03-16-2019 Bilirubin Urine Negative NEGATIVE [facility] Color, UA YELLOW YELLOW [place], [place] Glucose, Ur Negative NEGATIVE [facility], [place] Interpretation and review of laboratory results Abnormal [place] Ketones Ql (U) Negative NEGATIVE [facility], [place] Leukocyte esterase Test strip Ql (U) Negative NEGATIVE [facility], [place] Nitrite, Urine Negative NEGATIVE [facility], [place] pH, UA 6.5 [facility], [place] Protein (U) [Mass/Vol] Negative NEGATIVE [facility], [place] Specific [place], UA 1.008 [facility], [place] Turbidity UA CLEAR CLEAR [facility], [place] Urinalysis Comments NOT REPORTED [facility], [place] Urine Hgb SMALL Abnormal NEGATIVE [facility], [place] Urobilinogen, Urine Normal Normal [place] Urinalysis,Microon 9 ----- Normal [facility] Comment on above: Performed By: #### H H, BMP #### [facility]. [place], [place] [id number] Telephone Clerk Telegraph Office: Con Oseguera MD Epithelial cells LM.HPF (Urine sed) [#/Area] 0 TO 2 Normal [facility] Comment on above: Performed By: #### H H, BMP #### [facility] [place] [address] Telephone Clerk Telegraph Office: Con Oseguera MD RBC (U) [#/Vol] 20 TO 50 Normal [facility] Comment on above: Performed By: #### H H, BMP #### [facility] [address] [place] [address]. [place] [address] Telephone Clerk Telegraph Office: Con Oseguera MD WBC (U) [#/Vol] 0 TO 2 Normal [facility] Comment on above: Performed By: #### H H, BMP #### [facility] [address] [place] [address] Telephone Clerk Telegraph Office: Con Oseguera MD Amorphous sediment LM Ql (Urine sed) NOT REPORTED Normal NONE [facility] Comment on above: Performed By: #### H H, BMP #### [facility] [address] [facility] [place] [address] Telephone Clerk Telegraph Office: Con Oseguera MD Bacteria LM.HPF (Urine sed) [#/Area] NOT REPORTED Normal NONE [facility] Comment on above: Performed By: #### H H, BMP #### [facility] [place] [address] Telephone Clerk Telegraph Office: Con Oseguera MD Casts LM.LPF (Urine sed) [#/Area] NOT REPORTED Normal [facility] Comment on above: Performed By: #### H H, BMP #### [facility] [address] [place] [address]. [place] [address] Telephone Clerk Telegraph Office: Con Oseguera MD Crystals LM Nom (Urine sed) NOT REPORTED Normal [facility] Comment on above: Performed By: #### H H, BMP #### [facility] [address] [place] [address]. [place] [address] Telephone Clerk Telegraph Office: Con Oseguera MD Epithelial, Renal NOT REPORTED Normal 0 [facility] Comment on above: Performed By: #### H H, BMP #### [facility] [facility] [address] [place] [address]. [place] [address] Telephone Clerk Telegraph Office: Con Oseguera MD Mucus Strands NOT REPORTED Normal [facility] Comment on above: Performed By: #### H H, BMP #### [facility] [address] [place] [address]. [place] [address] Telephone Clerk Telegraph Office: Con Oseguera MD Other Observations NOT REPORTED Normal NREQ [facility] Comment on above: Performed By: #### H H, BMP #### [facility] [address] [place] [address] Telephone Clerk Telegraph Office: Con Oseguera MD Trichomonas NOT REPORTED Normal NONE [facility] Comment on above: Performed By: #### H H, BMP #### [facility] [address] [place] [address] Telephone Clerk Telegraph Office: Con Oseguera MD Yeast LM Ql (Urine sed) NOT REPORTED Normal NONE [facility] Comment on above: Performed By: #### H H, BMP #### [facility] [address] [place] [address] Telephone Clerk Telegraph Office: Con Oseguera MD Basic Metab w/rfx MGon 03-13 (cont.) Normal [facility] Comment on above: Result Comment: Aver age GFR for 70 or more years old: 75 mL/min/1.73sq m Chronic Kidney Disease: <60 mL/min/1.73sq m Kidney failure: <15 mL/min/1.73sq m eGFR calculated using average adult body mass. Additional eGFR calculator available at: http://www.Voltea.Prieto Battery/multiple_crcl_2012.htm Performed By: #### H H, BMP #### [facility] [address] [place] [address] Telephone Clerk Telegraph Office: Con Oseguera MD Anion gap [Moles/Vol] 12 mmol/L Normal - [facility] Comment on above: Performed By: #### H H, BMP #### [facility] [address] [place] [address] Telephone Clerk Telegraph Office: Con Oseguera MD Calcium [Mass/Vol] 9.2 mg/dL Normal 8.6-10.4 [facility] Comment on above: Performed By: #### H H, BMP #### [facility] [address] [place] [address] Telephone Clerk Telegraph Office: Con Oseguera MD Chloride [Moles/Vol] 105 mmol/L Normal 98-107 [facility] Comment on above: Performed By: #### H H, BMP #### [facility] [address] [place] [address] Telephone Clerk Telegraph Office: Con Oseguera MD CO2 [Moles/Vol] 26 mmol/L Normal 20-31 [facility] Comment on above: Performed By: #### H H, BMP #### [facility] [address] [place] [address] Telephone Clerk Telegraph Office: Con Oseguera MD Creatinine [Mass/Vol] 1.41 mg/dL High 0.70-1.20 [facility] Comment on above: Performed By: #### H H, BMP #### [facility] [place] [address] Telephone Clerk Telegraph Office: Con Oseguera MD GFR, Amer 58 mL/min Low >60 [facility] Comment on above: Performed By: #### H H, BMP #### [facility] [address] [place] [address] Telephone Clerk Telegraph Office: Con Oseguera MD GFR,non Amer 48 mL/min Low >60 [facility] Comment on above: Performed By: #### H H, BMP #### [facility] [address] [facility] [address] Telephone Clerk Telegraph Office: Con Oseguera MD Glucose [Mass/Vol] 90 mg/dL Normal 70-99 [facility] Comment on above: Performed By: #### H H, BMP #### [facility] [address] [facility] [address] Telephone Clerk Telegraph Office: Con Oseguera MD Potassium [Moles/Vol] 4.1 mmol/L Normal 3.7-5.3 [facility] Comment on above: Performed By: #### H H, BMP #### [facility] [address] [facility] [address] Telephone Clerk Telegraph Office: Con Oseguera MD Sodium [Moles/Vol] 143 mmol/L Normal 135-144 [facility] Comment on above: Performed By: #### H H, BMP #### [facility] [address] [facility] [place] [address] Telephone Clerk Telegraph Office: Con Oseguera MD Urea nitrogen [Mass/Vol] 19 mg/dL Normal 8-23 [facility] Comment on above: Performed By: #### H H, BMP #### [facility] [address] [facility] [place] [address] Telephone Clerk Telegraph Office: Con Oseguera MD BUN/CRE Ratio NOT REPORTED Normal 9-20 [facility] Comment on above: Performed By: #### H H, BMP #### [facility] [address] [facility] [address] Telephone Clerk Telegraph Office: Con Oseguera MD Staging: NOT REPORTED Normal [facility] Comment on above: Performed By: #### H H, BMP #### [facility] [address] [facility] [place] [address] Telephone Clerk Telegraph Office: Con Oseguera MD Basic Metabolic Panel w/ Ref milagros to MGon 03-13-2019 Anion gap [Moles/Vol] 12 mmol/L 9 - 17 mmol/L [facility], [place] Bun/Cre Ratio NOT REPORTED [facility] [place], [place] Calcium [Mass/Vol] 9.2 mg/dL 8.6 - 10. 4 mg/dL [facility] Chloride [Moles/Vol] 105 mmol/L 98 - 10 7 mmol/L [facility] CO2 [Moles/Vol] 26 mmol/L 20 - 31 mmol/L [facility] Creatinine [Mass/Vol] 1.41 mg/dL High 0.7 - 1.2 mg/dL [place] GFR 58 mL/min Low >60 [place] GFR Non- 48 mL/min Low >60 [place] GFR/1.73 sq M predicted among non-blacks MDRD (S/P/Bld) [Vol rate/Area] [place] Comment on above: Average GFR for 70 o r more years old: 75 mL/min/1.73sq m Chronic Kidney Disease: <60 mL/min/1.73sq m Kidney failure: <15 mL/min/1.73sq m eGFR calculated using average adult body mass. Additional eGFR calculator available at: http://www.TrunqShow/multiple_crcl_2012.htm GFR/1.73 sq M predicted among non-blacks MDRD (S/P/Bld) [Vol rate/Area] NOT REPORTED [place], [place] Glucose [Mass/Vol] 90 mg/dL 70 - 99 mg/dL [place], [place] Interpretation and review of laboratory results Abnormal [place] Potassium [Moles/Vol] 4.1 mmol/L 3.7 - 5.3 mmol/L [place] Sodium [Moles/Vol] 143 mmol/L 135 - 144 mmol/L [place] Urea nitrogen [Mass/Vol] 19 mg/dL 8 - 23 mg/dL [place] POC Glucose Fingerstickon Glucose [Mass/Vol] 195 mg/dL High 75 - 110 mg/dL [place], [place] Interpretation and review of laboratory results Abnormal [place] Glucose [Mass/Vol] 79 mg/dL 75 - 110 mg/dL [place] Basic Metab w/rfx MGon 03-12 (cont.) Normal [facility] Comment on above: Result Comment: Aver age GFR for 70 or more years old: 75 mL/min/1.73sq m Chronic Kidney Disease: <60 mL/min/1.73sq m Kidney failure: <15 mL/min/1.73sq m eGFR calculated using average adult body mass. Additional eGFR calculator available at: http://www.globalrph.com/multiple_crcl_2012.htm Performed By: #### H H, BMP #### [facility] [address] [place] [address] Telephone Clerk Telegraph Office: Con Oseguera MD Anion gap [Moles/Vol] 11 mmol/L Normal 9-17 [facility] Comment on above: Performed By: #### H H, BMP #### [facility] [address] [place] [address] Telephone Clerk Telegraph Office: Con Oseguera MD Calcium [Mass/Vol] 9.2 mg/dL Normal 8.6-10.4 [facility] Comment on above: Performed By: #### H H, BMP #### [facility] [address] [facility] [address] Telephone Clerk Telegraph Office: Con Oseguera MD Chloride [Moles/Vol] 108 mmol/L High 98-107 [facility] Comment on above: Performed By: #### H H, BMP #### [facility] [address] [place] [address] Telephone Clerk Telegraph Office: Con Oseguera MD CO2 [Moles/Vol] 26 mmol/L Normal 20-31 [facility] Comment on above: Performed By: #### H H, BMP #### [facility] [place] [address] Telephone Clerk Telegraph Office: Con Oseguera MD Creatinine [Mass/Vol] 1.41 mg/dL High 0.70-1.20 [facility] Comment on above: Performed By: #### H H, BMP #### [facility] [address] [facility] [address] Telephone Clerk Telegraph Office: Con Oseguera MD GFR, Amer 58 mL/min Low >60 [facility] Comment on above: Performed By: #### H H, BMP #### [facility] [address] [place] [address] Telephone Clerk Telegraph Office: Con Oseguera MD GFR,non Amer 48 mL/min Low >60 [facility] Comment on above: Performed By: #### H H, BMP #### [facility] [address] [place] [address] Telephone Clerk Telegraph Office: Con Oseguera MD Glucose [Mass/Vol] 81 mg/dL Normal 70-99 [facility] Comment on above: Performed By: #### H H, BMP #### [facility] [address] [place] [address] Telephone Clerk Telegraph Office: Con Oseguera MD Potassium [Moles/Vol] 4.1 mmol/L Normal 3.7-5.3 [facility] Comment on above: Performed By: #### H H, BMP #### [facility] [address] [place] [address] Telephone Clerk Telegraph Office: Con Oseguera MD Sodium [Moles/Vol] 145 mmol/L High 135-144 [facility] Comment on above: Performed By: #### H H, BMP #### [facility] [address] [place] [address] Telephone Clerk Telegraph Office: Con Oseguera MD Urea nitrogen [Mass/Vol] 20 mg/dL Normal 8-23 [facility] Comment on above: Performed By: #### H H, BMP #### [facility] [address] [place] [address] Telephone Clerk Telegraph Office: Con Oseguera MD BUN/CRE Ratio NOT REPORTED Normal 9-20 [facility] Comment on above: Performed By: #### H H, BMP #### [facility] [address] [place] [address] Telephone Clerk Telegraph Office: Con Oseguera MD Staging: NOT REPORTED Normal [facility] Comment on above: Performed By: #### H H, [facility] #### [facility] [address] [place] [address] Telephone Clerk Telegraph Office: Con Oseguera MD Basic Metabolic Panel w/ Ref milagros to MGon 03-12-2019 Anion gap [Moles/Vol] 11 mmol/L 9 - 17 mmol/L [place] Bun/Cre Ratio NOT REPORTED [place] Calcium [Mass/Vol] 9.2 mg/dL 8.6 - 10. 4 mg/dL [place] Chloride [Moles/Vol] 108 mmol/L High 98 - 10 7 mmol/L [place] CO2 [Moles/Vol] 26 mmol/L 20 - 31 mmol/L [place] Creatinine [Mass/Vol] 1.41 mg/dL High 0.7 - 1.2 mg/dL [place] GFR 58 mL/min Low >60 [place] GFR Non- 48 mL/min Low >60 [place] GFR/1.73 sq M predicted among non-blacks MDRD (S/P/Bld) [Vol rate/Area] NOT REPORTED [place] GFR/1.73 sq M predicted among non-blacks MDRD (S/P/Bld) [Vol rate/Area] [place] Comment on above: Average GFR for 70 o r more years old: 75 mL/min/1.73sq m Chronic Kidney Disease: <60 mL/min/1.73sq m Kidney failure: <15 mL/min/1.73sq m eGFR calculated using average adult body mass. Additional eGFR calculator available at: http://www.Voltea.Prieto Battery/multiple_crcl_2012.htm Glucose [Mass/Vol] 81 mg/dL 70 - 99 mg/dL [place] Interpretation and review of laboratory results Abnormal [place] Potassium [Moles/Vol] 4.1 mmol/L 3.7 - 5.3 mmol/L [place] Sodium [Moles/Vol] 145 mmol/L High 135 - 144 mmol/L [place] Urea nitrogen [Mass/Vol] 20 mg/dL 8 - 23 mg/dL [place] POC Glucose Fingerstickon Glucose [Mass/Vol] 285 mg/dL High 75 - 110 mg/dL [place], [place] Interpretation and review of laboratory results Abnormal [place] Glucose [Mass/Vol] 286 mg/dL High 75 - 110 mg/dL [place] Interpretation and review of laboratory results Abnormal [place] Glucose [Mass/Vol] 264 mg/dL High 75 - 110 mg/dL [place] Interpretation and review of laboratory results Abnormal [place] Glucose [Mass/Vol] 72 mg/dL Low 75 - 110 mg/dL [place] Interpretation and review of laboratory results Abnormal [place] Basic Metab w/rfx MGon 03-11 (cont.) Normal [facility] Comment on above: Result Comment: Aver age GFR for 70 or more years old: 75 mL/min/1.73sq m Chronic Kidney Disease: <60 mL/min/1.73sq m Kidney failure: <15 mL/min/1.73sq m eGFR calculated using average adult body mass. Additional eGFR calculator available at: http://www.Voltea.Prieto Battery/multiple_crcl_2012.htm Performed By: #### H H, BMP #### [facility] [address] [facility]. [place], [place] [address] Telephone Clerk Telegraph Office: Con Oseguera MD Anion gap [Moles/Vol] 10 mmol/L Normal 9-17 [facility] Comment on above: Performed By: #### H H, BMP #### [facility] [address] [facility]. [place], [place] [address] Telephone Clerk Telegraph Office: Con Oseguera MD Calcium [Mass/Vol] 9.3 mg/dL Normal 8.6-10.4 [facility] Comment on above: Performed By: #### H H, BMP #### [facility] [address] [place] [address] Telephone Clerk Telegraph Office: Con Oseguera MD Chloride [Moles/Vol] 104 mmol/L Normal 98-107 [facility] Comment on above: Performed By: #### H H, BMP #### [facility] [address] [place] [address] Telephone Clerk Telegraph Office: Con Oseguera MD CO2 [Moles/Vol] 26 mmol/L Normal 20-31 [facility] Comment on above: Performed By: #### H H, BMP #### [facility] [address] [place] [address] Telephone Clerk Telegraph Office: Con Oseguera MD Creatinine [Mass/Vol] 1.49 mg/dL High 0.70-1.20 [facility] Comment on above: Performed By: #### H H, BMP #### [facility] [address] [place] [address] Telephone Clerk Telegraph Office: Con Oseguera MD GFR, Amer 55 mL/min Low >60 [facility] Comment on above: Performed By: #### H H, BMP #### [facility] [address] [place] [address] Telephone Clerk Telegraph Office: Con Oseguera MD GFR,non Amer 45 mL/min Low >60 [facility] Comment on above: Performed By: #### H H, BMP #### [facility] [address] [place] [address] Telephone Clerk Telegraph Office: Con Oseguera MD Glucose [Mass/Vol] 78 mg/dL Normal 70-99 [facility] Comment on above: Performed By: #### H H, BMP #### [facility] [address] [place] [address] Telephone Clerk Telegraph Office: Con Oseguera MD Potassium [Moles/Vol] 4.0 mmol/L Normal 3.7-5.3 [facility] Comment on above: Performed By: #### H H, BMP #### [facility] [address] [place] [address] Telephone Clerk Telegraph Office: Con Oseguera MD Sodium [Moles/Vol] 140 mmol/L Normal 135-144 [facility] Comment on above: Performed By: #### H H, BMP #### [facility] [address] [place] [address] Telephone Clerk Telegraph Office: Con Oseguera MD Urea nitrogen [Mass/Vol] 22 mg/dL Normal 8-23 [facility] Comment on above: Performed By: #### H H, BMP #### [facility] [address] [facility] [place] [address] Telephone Clerk Telegraph Office: Con Oseguera MD BUN/CRE Ratio NOT REPORTED Normal 9-20 [facility] Comment on above: Performed By: #### H H, BMP #### [facility] [address] [facility] [address] Telephone Clerk Telegraph Office: Con Oseguera MD Staging: NOT REPORTED Normal [facility] Comment on above: Performed By: #### H H, BMP #### [facility] [address] [place] [address] Telephone Clerk Telegraph Office: Con Oseguera MD Basic Metabolic Panel w/ Ref milagros to MGon 03-11-2019 Anion gap [Moles/Vol] 10 mmol/L 9 - 17 mmol/L [facility], [place] Bun/Cre Ratio NOT REPORTED [facility], [place] Calcium [Mass/Vol] 9.3 mg/dL 8.6 - 10. 4 mg/dL [facility], [place] Chloride [Moles/Vol] 104 mmol/L 98 - 10 7 mmol/L [facility], [place] CO2 [Moles/Vol] 26 mmol/L 20 - 31 mmol/L [place] Creatinine [Mass/Vol] 1.49 mg/dL High 0.7 - 1.2 mg/dL [place] GFR 55 mL/min Low >60 [place] GFR Non- 45 mL/min Low >60 [place] GFR/1.73 sq M predicted among non-blacks MDRD (S/P/Bld) [Vol rate/Area] [place] Comment on above: Average GFR for 70 o r more years old: 75 mL/min/1.73sq m Chronic Kidney Disease: <60 mL/min/1.73sq m Kidney failure: <15 mL/min/1.73sq m eGFR calculated using average adult body mass. Additional eGFR calculator available at: http://www.TrunqShow/multiple_crcl_2012.htm GFR/1.73 sq M predicted among non-blacks MDRD (S/P/Bld) [Vol rate/Area] NOT REPORTED [place], [place] Glucose [Mass/Vol] 78 mg/dL 70 - 99 mg/dL [place] Interpretation and review of laboratory results Abnormal [place] Potassium [Moles/Vol] 4.0 mmol/L 3.7 - 5.3 mmol/L [place] Sodium [Moles/Vol] 140 mmol/L 135 - 144 mmol/L [place] Urea nitrogen [Mass/Vol] 22 mg/dL 8 - 23 mg/dL [place] POC Glucose Fingerstickon Glucose [Mass/Vol] 213 mg/dL High 75 - 110 mg/dL [place], [place] Interpretation and review of laboratory results Abnormal [place] Glucose [Mass/Vol] 139 mg/dL High 75 - 110 mg/dL [place] Interpretation and review of laboratory results Abnormal [place] Glucose [Mass/Vol] 195 mg/dL High 75 - 110 mg/dL [place] Interpretation and review of laboratory results Abnormal [place] Glucose [Mass/Vol] 73 mg/dL Low 75 - 110 mg/dL [place] Interpretation and review of laboratory results Abnormal [place] XR CHEST (2 VW)on 03-11-2019 XR [...] Maxwell Chaudhry MD 03/11/19 Final result Normal [facility] XR CHEST STANDARD (2 VW)on 0 [...] stable. No acute osseous abnormality is seen. [place] 1. Stable bibasilar pulmonary opacities that may reflect atelectasis or pneumonia. 2. Stable small left pleural effusion. [place], [place] Stan, [facility] Incoming Radiant Results From [employer] - 03/11/2019 2:19 PM EDT EXAMINATION: TWO [...] pneumonia. 2. Stable small left pleural effusion. [facility] Basic Metab w/rfx MGon 03-10 (cont.) Normal [facility] Comment on above: Result Comment: Aver age GFR for 70 or more years old: 75 mL/min/1.73sq m Chronic Kidney Disease: <60 mL/min/1.73sq m Kidney failure: <15 mL/min/1.73sq m eGFR calculated using average adult body mass. Additional eGFR calculator available at: http://www.TrunqShow/multiple_crcl_2012.htm Performed By: #### B MP #### [facility] [address] [facility] [address] Telephone Clerk Telegraph Office: Con Oseguera MD Anion gap [Moles/Vol] 12 mmol/L Normal 9-17 [facility] Comment on above: Performed By: #### B MP #### [facility] [address] [place] [address] Telephone Clerk Telegraph Office: Con Oseguera MD Calcium [Mass/Vol] 9.3 mg/dL Normal 8.6-10.4 [facility] Comment on above: Performed By: #### B MP #### [facility] [address] [place] [address] Telephone Clerk Telegraph Office: Con Oseguera MD Chloride [Moles/Vol] 102 mmol/L Normal 98-107 [facility] Comment on above: Performed By: #### B MP #### [facility] [address] [place] [address] Telephone Clerk Telegraph Office: Con Oseguera MD CO2 [Moles/Vol] 27 mmol/L Normal 20-31 [facility] Comment on above: Performed By: #### B MP #### [facility] [address] [place] [address] Telephone Clerk Telegraph Office: Con Oseguera MD Creatinine [Mass/Vol] 1.69 mg/dL High 0.70-1.20 [facility] Comment on above: Performed By: #### B MP #### [facility] [address] [place] [address] Telephone Clerk Telegraph Office: Con Oseguera MD GFR, Amer 47 mL/min Low >60 [facility] Comment on above: Performed By: #### B MP #### [facility] [address] [place] [address] Telephone Clerk Telegraph Office: Con Oseguera MD GFR,non Amer 39 mL/min Low >60 [facility] Comment on above: Performed By: #### B MP #### [facility] [address] [place] [address] Telephone Clerk Telegraph Office: Con Oseguera MD Glucose [Mass/Vol] 87 mg/dL Normal 70-99 [facility] Comment on above: Performed By: #### B MP #### [facility] [address] [place] [address] Telephone Clerk Telegraph Office: Con Oseguera MD Potassium [Moles/Vol] 4.2 mmol/L Normal 3.7-5.3 [facility] Comment on above: Performed By: #### B MP #### [facility] [address] [place] [address] Telephone Clerk Telegraph Office: Con Oseguera MD Sodium [Moles/Vol] 141 mmol/L Normal 135-144 [facility] Comment on above: Performed By: #### B MP #### [facility] [address] [place] [address] Telephone Clerk Telegraph Office: Con Oseguera MD Urea nitrogen [Mass/Vol] 24 mg/dL High 8-23 [facility] Comment on above: Performed By: #### B MP #### [facility] [address] [place] [address] Telephone Clerk Telegraph Office: Con Oseguera MD BUN/CRE Ratio NOT REPORTED Normal 9-20 [facility] Comment on above: Performed By: #### B MP #### [facility] [address] [place] [address] Telephone Clerk Telegraph Office: Con Oseguera MD Staging: NOT REPORTED Normal [facility] Comment on above: Performed By: #### B MP #### [facility] [address] [place] [address] Telephone Clerk Telegraph Office: Con Oseguera MD Basic Metabolic Panel w/ Ref milagros to MGon 03-10-2019 Anion gap [Moles/Vol] 12 mmol/L 9 - 17 mmol/L [place] Bun/Cre Ratio NOT REPORTED [place] Calcium [Mass/Vol] 9.3 mg/dL 8.6 - 10. 4 mg/dL [place] Chloride [Moles/Vol] 102 mmol/L 98 - 10 7 mmol/L [place] CO2 [Moles/Vol] 27 mmol/L 20 - 31 mmol/L [place] Creatinine [Mass/Vol] 1.69 mg/dL High 0.7 - 1.2 mg/dL [place] GFR 47 mL/min Low >60 [place] GFR Non- 39 mL/min Low >60 [place] GFR/1.73 sq M predicted among non-blacks MDRD (S/P/Bld) [Vol rate/Area] NOT REPORTED [place] GFR/1.73 sq M predicted among non-blacks MDRD (S/P/Bld) [Vol rate/Area] [place] Comment on above: Average GFR for 70 o r more years old: 75 mL/min/1.73sq m Chronic Kidney Disease: <60 mL/min/1.73sq m Kidney failure: <15 mL/min/1.73sq m eGFR calculated using average adult body mass. Additional eGFR calculator available at: http://www.Voltea.com/multiple_crcl_2012.htm Glucose [Mass/Vol] 87 mg/dL 70 - 99 mg/dL [place] Interpretation and review of laboratory results Abnormal [place] Potassium [Moles/Vol] 4.2 mmol/L 3.7 - 5.3 mmol/L [place] Sodium [Moles/Vol] 141 mmol/L 135 - 144 mmol/L [place] Urea nitrogen [Mass/Vol] 24 mg/dL High 8 - 23 mg/dL [place] Digoxinon 03-10-2019 Digoxin [Mass/Vol] 0.6 ng/mL Normal 0.5-2.0 [facility] Comment on above: Result Comment: Digoxin Reference Range: Heart Failure 0.5-0.9 Atrial Fibrillation 0.8-2.0 Performed By: #### B MP #### [facility] [address] [facility]. [place] [address] Telephone Clerk Telegraph Office: Con Oseguera MD Digoxin [Mass/Vol] 915 ng/mL Normal [facility] Comment on above: Performed By: #### B MP #### [facility] [address] [facility] [place] [address] Telephone Clerk Telegraph Office: Con Oseguera MD Digoxin [Mass/Vol] 4229680 ng/mL Normal [facility] [place] Comment on above: Performed By: #### B MP #### [facility] [address] [place] [address] Telephone Clerk Telegraph Office: Con Oseguera MD Digoxin [Mass/Vol] 125mct Normal [facility] Comment on above: Performed By: #### B MP #### [facility] [address] [place] [address] Telephone Clerk Telegraph Office: Con Oseguera MD Digoxin Levelon 03-10-2019 Digoxin Date Last Dose [id number] [place], [place] Digoxin Dose Amount 125mct [place] Digoxin Dose Time 915 [facility] [place] INR Coag (Bld) [Relative time] 0.6 ng/mL 0.5 - 2 ng/mL [place] Comment on above: Digoxin Reference Range: Heart Failure 0.5-0.9 Atrial Fibrillation 0.8-2.0 Magnesiumon 03-10-2019 Magnesium [Mass/Vol] 2.1 mg/dL Normal 1.6-2.6 [facility] Comment on above: Performed By: #### B MP #### [facility] [address] [place] [address] Telephone Clerk Telegraph Office: Con Oseguera MD Magnesium [Mass/Vol] 2.1 mg/dL 1.6 - 2 .6 mg/dL [place], [place] POC Glucose Fingerstickon Glucose [Mass/Vol] 298 mg/dL High 75 - 110 mg/dL [place], [place] Interpretation and review of laboratory results Abnormal [place] Glucose [Mass/Vol] 88 mg/dL 75 - 110 mg/dL [place] Glucose [Mass/Vol] 120 mg/dL High 75 - 110 mg/dL [place] Interpretation and review of laboratory results Abnormal [place] Glucose [Mass/Vol] 87 mg/dL 75 - 110 mg/dL [place] Basic Metab w/rfx MGon 03-09 (cont.) Normal [facility] Comment on above: Result Comment: Aver age GFR for 70 or more years old: 75 mL/min/1.73sq m Chronic Kidney Disease: <60 mL/min/1.73sq m Kidney failure: <15 mL/min/1.73sq m eGFR calculated using average adult body mass. Additional eGFR calculator available at: http://www.Voltea.Prieto Battery/multiple_crcl_2012.htm Performed By: #### B MP #### [facility] [address] [place] [address] Telephone Clerk Telegraph Office: Con Oseguera MD Anion gap [Moles/Vol] 15 mmol/L Normal 9-17 [facility] Comment on above: Performed By: #### B MP #### [facility] [address] [place] [address] Telephone Clerk Telegraph Office: Con Oseguera MD Calcium [Mass/Vol] 10.0 mg/dL Normal 8.6-10.4 [facility] Comment on above: Performed By: #### B MP #### [facility] [address] [place] [address] Telephone Clerk Telegraph Office: Con Oseguera MD Chloride [Moles/Vol] 98 mmol/L Normal 98-107 [facility] Comment on above: Performed By: #### B MP #### [facility] [address] [place] [address] Telephone Clerk Telegraph Office: Con Oseguera MD CO2 [Moles/Vol] 24 mmol/L Normal 20-31 [facility] Comment on above: Performed By: #### B MP #### [facility] [address] [place] [address] Telephone Clerk Telegraph Office: Con Oseguera MD Creatinine [Mass/Vol] 1.54 mg/dL High 0.70-1.20 [facility] Comment on above: Performed By: #### B MP #### [facility] [address] [place] [address] Telephone Clerk Telegraph Office: Con Oseguera MD GFR, Amer 53 mL/min Low >60 [facility] Comment on above: Performed By: #### B MP #### [facility] [address] [place] [address] Telephone Clerk Telegraph Office: Con Oseguera MD GFR,non Amer 44 mL/min Low >60 [facility] Comment on above: Performed By: #### B MP #### [facility] [address] [place] [address] Telephone Clerk Telegraph Office: Con Oseguera MD Glucose [Mass/Vol] 119 mg/dL High 70-99 [facility] Comment on above: Performed By: #### B MP #### [facility] [address] [place] [address] Telephone Clerk Telegraph Office: Con Oseguera MD Potassium [Moles/Vol] 4.4 mmol/L Normal 3.7-5.3 [facility] Comment on above: Performed By: #### B MP #### [facility] [address] [place] [address] Telephone Clerk Telegraph Office: Con Oseguera MD Sodium [Moles/Vol] 137 mmol/L Normal 135-144 [facility] Comment on above: Performed By: #### B MP #### [facility] [address] [place] [address] Telephone Clerk Telegraph Office: Con Oseguera MD Urea nitrogen [Mass/Vol] 22 mg/dL Normal 8-23 [facility] Comment on above: Performed By: #### B MP #### [facility] [address] [place] [address] Telephone Clerk Telegraph Office: Con Oseguera MD BUN/CRE Ratio NOT REPORTED Normal 9-20 [facility] Comment on above: Performed By: #### B MP #### [facility] [address] [place] [address] Telephone Clerk Telegraph Office: Con Oseguera MD Staging: NOT REPORTED Normal [facility] Comment on above: Performed By: #### B MP #### [facility] [address] [place] [address] Telephone Clerk Telegraph Office: Con Oseguera MD Basic Metabolic Panel w/ Ref milagros to MGon 03-09-2019 Anion gap [Moles/Vol] 15 mmol/L 9 - 17 mmol/L [place] Bun/Cre Ratio NOT REPORTED [place] Calcium [Mass/Vol] 10.0 mg/dL 8.6 - 10. 4 mg/dL [place] Chloride [Moles/Vol] 98 mmol/L 98 - 10 7 mmol/L [place] CO2 [Moles/Vol] 24 mmol/L 20 - 31 mmol/L [place] Creatinine [Mass/Vol] 1.54 mg/dL High 0.7 - 1.2 mg/dL [place] GFR 53 mL/min Low >60 [place] GFR Non- 44 mL/min Low >60 [place] GFR/1.73 sq M predicted among non-blacks MDRD (S/P/Bld) [Vol rate/Area] [place] Comment on above: Average GFR for 70 o r more years old: 75 mL/min/1.73sq m Chronic Kidney Disease: <60 mL/min/1.73sq m Kidney failure: <15 mL/min/1.73sq m eGFR calculated using average adult body mass. Additional eGFR calculator available at: http://www.TrunqShow/multiple_crcl_2012.htm GFR/1.73 sq M predicted among non-blacks MDRD (S/P/Bld) [Vol rate/Area] NOT REPORTED [place] Glucose [Mass/Vol] 119 mg/dL High 70 - 99 mg/dL [place] Interpretation and review of laboratory results Abnormal [place] Potassium [Moles/Vol] 4.4 mmol/L 3.7 - 5.3 mmol/L [place] Sodium [Moles/Vol] 137 mmol/L 135 - 144 mmol/L [place] Urea nitrogen [Mass/Vol] 22 mg/dL 8 - 23 mg/dL [place] Cult,Urine,Cathon 03-09-2019 Cult,Urine,Cath Specimen Description .CATHETERIZED URINE Special Requests NOT REPORTED Culture KLEBSIELLA PNEUMONIAE >[id number] CFU/ML Report Status FINAL 03/09/2019 SUSCEPTIBILITY Organism [...] <=20 SUSCEPTIBLE Piperacillin/Tazobact am <=4 SUSCEPTIBLE Normal [facility] Comment on above: Performed By: #### B MP #### [facility] [address] [place] [address] Telephone Clerk Telegraph Office: Con Oseguera MD POC Glucose Fingerstickon Glucose [Mass/Vol] 199 mg/dL High 75 - 110 mg/dL [place] Interpretation and review of laboratory results Abnormal [place] Glucose [Mass/Vol] 296 mg/dL High 75 - 110 mg/dL [place] Interpretation and review of laboratory results Abnormal [place] Glucose [Mass/Vol] 299 mg/dL High 75 - 110 mg/dL [place] Interpretation and review of laboratory results Abnormal [place] Glucose [Mass/Vol] 124 mg/dL High 75 - 110 mg/dL [place] Interpretation and review of laboratory results Abnormal [place] Urine culture via catheteron 03-09-2019 Culture KLEBSIELLA PNEUMONIA E >[id number] CFU/ML Abnormal [place] Interpretation and review of laboratory results Abnormal [place] Special Requests NOT REPORTED [place] Specimen Description .CATHETERIZED URINE [place] Basic Metab w/rfx MGon 03-08 (cont.) Normal [facility] Comment on above: Result Comment: Aver age GFR for 70 or more years old: 75 mL/min/1.73sq m Chronic Kidney Disease: <60 mL/min/1.73sq m Kidney failure: <15 mL/min/1.73sq m eGFR calculated using average adult body mass. Additional eGFR calculator available at: http://www.Voltea.Prieto Battery/multiple_crcl_2012.htm Performed By: #### B MP #### [facility] [address] [place] [address] Telephone Clerk Telegraph Office: Con Oseguera MD Anion gap [Moles/Vol] 11 mmol/L Normal 9-17 [facility] Comment on above: Performed By: #### B MP #### [facility] [address] [place] [address] Telephone Clerk Telegraph Office: Con Oseguera MD Calcium [Mass/Vol] 9.3 mg/dL Normal 8.6-10.4 [facility] Comment on above: Performed By: #### B MP #### [facility] [address] [place] [address] Telephone Clerk Telegraph Office: Con Oseguera MD Chloride [Moles/Vol] 100 mmol/L Normal 98-107 [facility] Comment on above: Performed By: #### B MP #### [facility] [address] [place] [address] Telephone Clerk Telegraph Office: Con Oseguera MD CO2 [Moles/Vol] 28 mmol/L Normal 20-31 [facility] Comment on above: Performed By: #### B MP #### [facility] [address] [place] [address] Telephone Clerk Telegraph Office: Con Oseguera MD Creatinine [Mass/Vol] 1.57 mg/dL High 0.70-1.20 [facility] Comment on above: Performed By: #### B MP #### [facility] [address] [place] [address] Telephone Clerk Telegraph Office: Con Oseguera MD GFR, Amer 52 mL/min Low >60 [facility] Comment on above: Performed By: #### B MP #### [facility] [address] [place] [address] Telephone Clerk Telegraph Office: Con Oseguera MD GFR,non Amer 43 mL/min Low >60 [facility] Comment on above: Performed By: #### B MP #### [facility] [address] [place] [address] Telephone Clerk Telegraph Office: Con Oseguera MD Glucose [Mass/Vol] 75 mg/dL Normal 70-99 [facility] Comment on above: Performed By: #### B MP #### [facility] [address] [place] [address] Telephone Clerk Telegraph Office: Con Oseguera MD Potassium [Moles/Vol] 4.6 mmol/L Normal 3.7-5.3 [facility] Comment on above: Performed By: #### B MP #### [facility] [address] [place] [address] Telephone Clerk Telegraph Office: Con Oseguera MD Sodium [Moles/Vol] 139 mmol/L Normal 135-144 [facility] Comment on above: Performed By: #### B MP #### [facility] [address] [place] [address] Telephone Clerk Telegraph Office: Con Oseguera MD Urea nitrogen [Mass/Vol] 27 mg/dL High 8-23 [facility] Comment on above: Performed By: #### B MP #### [facility] [address] [place] [address] Telephone Clerk Telegraph Office: Con Oseguera MD BUN/CRE Ratio NOT REPORTED Normal 9-20 [facility] Comment on above: Performed By: #### B MP #### [facility] [address] [place] [address] Telephone Clerk Telegraph Office: Con Oseguera MD Staging: NOT REPORTED Normal [facility] Comment on above: Performed By: #### B MP #### [facility] [address] [place] [address] Telephone Clerk Telegraph Office: Con Oseguera MD Basic Metabolic Panel w/ Ref milagros to MGon 03-08-2019 Anion gap [Moles/Vol] 11 mmol/L 9 - 17 mmol/L [place] Bun/Cre Ratio NOT REPORTED [place] Calcium [Mass/Vol] 9.3 mg/dL 8.6 - 10. 4 mg/dL [place] Chloride [Moles/Vol] 100 mmol/L 98 - 10 7 mmol/L [place] CO2 [Moles/Vol] 28 mmol/L 20 - 31 mmol/L [place] Creatinine [Mass/Vol] 1.57 mg/dL High 0.7 - 1.2 mg/dL [place] GFR 52 mL/min Low >60 [place] GFR Non- 43 mL/min Low >60 [place] GFR/1.73 sq M predicted among non-blacks MDRD (S/P/Bld) [Vol rate/Area] [place] Comment on above: Average GFR for 70 o r more years old: 75 mL/min/1.73sq m Chronic Kidney Disease: <60 mL/min/1.73sq m Kidney failure: <15 mL/min/1.73sq m eGFR calculated using average adult body mass. Additional eGFR calculator available at: http://www.Voltea.Prieto Battery/multiple_crcl_2012.htm GFR/1.73 sq M predicted among non-blacks MDRD (S/P/Bld) [Vol rate/Area] NOT REPORTED [place] Glucose [Mass/Vol] 75 mg/dL 70 - 99 mg/dL [place] Interpretation and review of laboratory results Abnormal [place] Potassium [Moles/Vol] 4.6 mmol/L 3.7 - 5.3 mmol/L [place] Sodium [Moles/Vol] 139 mmol/L 135 - 144 mmol/L [place] Urea nitrogen [Mass/Vol] 27 mg/dL High 8 - 23 mg/dL [place] EKG 12 Leadon 03-08-2019 Atrial Rate 49 BPM [place] Q-T Interval 406 ms [place], [place] QRS Duration 80 ms [place] QTc Calculation (Bazett) 465 ms [place], [place] R Romayor -13 degrees [place], [place] T Romayor 40 degrees [place] Ventricular Rate 79 BPM [place], [place] Stan, Mhpn Incoming Ekg Results From [facility] - 03/08/2019 10:18 AM EDT Atrial fibrillation Abnormal ECG When compared with ECG of 07-MAR-2019 17:56, (unconfirmed) No significant change was found [place] Atrial fibrillation Abnormal ECG When compared with ECG of 07-MAR-2019 17:56, (unconfirmed) No significant change was found [place] Hemoglobin A1Con 03-08-2019 HbA1c (Bld) [Mass fraction] 157 mg/dL Normal [facility] Comment on above: Result Comment: The ADA and AACC recommend providing the estimated average glucose result to permit better patient understanding of their HBA1c result. Performed By: #### B MP #### [facility] [address] [place], [place] [id number] Telephone Clerk Telegraph Office: Con Oseguera MD HbA1c (Bld) [Mass fraction] 7.1 % High 4.0-6.0 [facility] Comment on above: Performed By: #### B MP #### [facility] [address] [place] [address] Telephone Clerk Telegraph Office: Con Oseguera MD Glucose [Mass/Vol] 157 mg/dL [place] Comment on above: The ADA and AACC rec ommend providing the estimated average glucose result to permit better patient understanding of their HBA1c result. HbA1c (Bld) [Mass fraction] 7.1 % High 4 - 6 % [place] Interpretation and review of laboratory results Abnormal [place] POC Glucose Fingerstickon Glucose [Mass/Vol] 220 mg/dL High 75 - 110 mg/dL [place] Interpretation and review of laboratory results Abnormal [place] Glucose [Mass/Vol] 144 mg/dL High 75 - 110 mg/dL [place] Interpretation and review of laboratory results Abnormal [place] Glucose [Mass/Vol] 325 mg/dL High 75 - 110 mg/dL [place] Interpretation and review of laboratory results Abnormal [place] Glucose [Mass/Vol] 138 mg/dL High 75 - 110 mg/dL [place] Interpretation and review of laboratory results Abnormal [place] Glucose [Mass/Vol] 63 mg/dL Low 75 - 110 mg/dL [place] Interpretation and review of laboratory results Abnormal [place] Brain Natri. Peptideon 03-07 Natriuretic peptide B (Bld) [Mass/Vol] Pro-BNP Reference Range: Normal [facility] Comment on above: Result Comment: Rule Out: <300 Miranda Zone: Age <50 300-450 Age 50-75 300-900 Age >75 300-1800 Usually represents mild to moderate HF but other cardiopulmonary causes cannot be ruled out. Rule In: Age <50 >450 Age 50-75 >900 Age >75 >1800 Performed By: #### B MP #### [facility] [address] [facility] [place], [place] [id number] Telephone Clerk Telegraph Office: Con Oseguera MD Natriuretic peptide B (Bld) [Mass/Vol] 946 pg/mL High <300 [facility] Comment on above: Result Comment: Pro- BNP results cannot be compared to BNP results. Performed By: #### B MP #### [facility] [address] [place], [place] [id number] Telephone Clerk Telegraph Office: Con Oseguera MD Brain Natriuretic Peptideon 03-07-2019 Interpretation and review of laboratory results Abnormal [place] Natriuretic peptide B (Bld) [Mass/Vol] Pro-BNP Reference Range: [place] Comment on above: Rule Out: <300 Miranda Zone: Age <50 300-450 Age 50-75 300-900 Age >75 300-1800 Usually represents mild to moderate HF but other cardiopulmonary causes cannot be ruled out. Rule In: Age <50 >450 Age 50-75 >900 Age >75 >1800 Natriuretic peptide B (Bld) [Mass/Vol] 946 pg/mL High <300 [place] Comment on above: Pro-BNP results darrius ot be compared to BNP results. CBC Auto Differentialon 02-25 Basophils (Bld) [#/Vol] 0.10 10*3/uL [place] Basophils/100 WBC (Bld) 1 % 0 - 2 % [place] Differential Type NOT REPORTED [place] Eosinophils (Bld) [#/Vol] 0.10 10*3/uL [place] Eosinophils/100 WBC (Bld) 1 % 0 - 4 % [place] Erythrocyte distribution width (RBC) [Ratio] 29.0 % High 11.5 - 14.9 % [place] Hematocrit (Bld) [Volume fraction] 33.5 % Low 41 - 53 % [place] Hemoglobin (Bld) [Mass/Vol] 10.5 g/dL Low 13.5 - 17.5 g/dL [place] Interpretation and review of laboratory results Abnormal [place] Lymphocytes (Bld) [#/Vol] 0.72 10*3/uL Low [place] Lymphocytes/100 WBC (Bld) 7 % Low 24 - 44 % [place] MCH (RBC) [Entitic mass] 22.4 pg Low 26 - 34 pg [place] MCHC (RBC) [Mass/Vol] 31.2 g/dL 31 - 37 g/dL [place] MCV (RBC) [Entitic vol] 71.7 fL Low 80 - 100 fL [place] Monocytes (Bld) [#/Vol] 0.72 10*3/uL [place] Monocytes/100 WBC (Bld) 7 % 1 - 7 % [place] Morphology Theo (Bld) [Interp] ANISOCYTOSIS PRESENT [place], [place] Morphology Theo (Bld) [Interp] HYPOCHROMIA PRESENT [place], [place] Morphology Theo (Bld) [Interp] MICROCYTOSIS PRESENT [place] Platelet mean volume (Bld) [Entitic vol] 8.6 fL 6 - 12 fL [place] Platelets (Bld) [#/Vol] NOT REPORTED [place] Platelets (Bld) [#/Vol] 273 10*3/uL [place] RBC (Bld) [#/Vol] 4.68 10*6/uL 4.5 - 5.9 m/uL [place], [place] RBC morphology finding Nom (Bld) NOT REPORTED [place] Segmented neutrophils/100 WBC (Bld) 84 % High 36 - 66 % [place] Segs Absolute 8.66 [place] WBC (Bld) [#/Vol] NOT REPORTED per 100 WBC [place] WBC (Bld) [#/Vol] 10.3 10*3/uL [place] WBC Morphology NOT REPORTED [place] CBC with Diffon 03-07-2019 Abs. Basophil 0.10 k/uL Normal 0.0-0.2 [facility] Comment on above: Performed By: #### B MP #### [facility] [address] [place] [address] Telephone Clerk Telegraph Office: Con Oseguera MD Abs.Neutrophil (Seg) 8.66 k/uL Normal 1.3-9.1 [facility] Comment on above: Performed By: #### B MP #### [facility] [address] [place] [address] Telephone Clerk Telegraph Office: Con Oseguera MD Basophils/100 WBC (Bld) 1 % Normal 0-2 [facility] Comment on above: Performed By: #### B MP #### [facility] [address] [place] [address] Telephone Clerk Telegraph Office: Con Oseguera MD Eosinophils (Bld) [#/Vol] 0.10 10*3/uL Normal 0.0-0.4 [facility] Comment on above: Performed By: #### B MP #### [facility] [address] [place] [address] Telephone Clerk Telegraph Office: Con Oseguera MD Eosinophils/100 WBC (Bld) 1 % Normal 0-4 [facility] Comment on above: Performed By: #### B MP #### [facility] [address] [place] [address] Telephone Clerk Telegraph Office: Con Oseguera MD Lymphocytes (Bld) [#/Vol] 0.72 10*3/uL Low 1.0-4.8 [facility] Comment on above: Performed By: #### B MP #### [facility] [address] [place] [address] Telephone Clerk Telegraph Office: Con Oseguera MD Lymphocytes/100 WBC (Bld) 7 % Low 24-44 [facility] Comment on above: Performed By: #### B MP #### [facility] [facility] [place] [address] Telephone Clerk Telegraph Office: Con Oseguera MD Monocytes (Bld) [#/Vol] 0.72 10*3/uL Normal 0.1-1.3 [facility] Comment on above: Performed By: #### B MP #### [facility] [address] [facility] [address] Telephone Clerk Telegraph Office: Con Oseguera MD Monocytes/100 WBC (Bld) 7 % Normal 1-7 [facility] Comment on above: Performed By: #### B MP #### [facility] [address] [place] [address] Telephone Clerk Telegraph Office: Con Oseguera MD Morphology Theo (Bld) [Interp] ANISOCYTOSIS PRESENT Normal [facility] Comment on above: Result Comment: MICR OCYTOSIS PRESENT HYPOCHROMIA PRESENT Performed By: #### B MP #### [facility] [address] [place] [address] Telephone Clerk Telegraph Office: Con Oseguera MD Neutrophil (Seg) 84 % High 36-66 [facility] Comment on above: Performed By: #### B MP #### [facility] [place] [address] Telephone Clerk Telegraph Office: Con Oseguera MD Erythrocyte distribution width (RBC) [Ratio] 29.0 % High 11.5-14.9 [facility] Comment on above: Performed By: #### B MP #### [facility] [place] [address] Telephone Clerk Telegraph Office: Con Oseguera MD Hematocrit (Bld) [Volume fraction] 33.5 % Low 41-53 [facility] Comment on above: Performed By: #### B MP #### [facility] [place] [address] Telephone Clerk Telegraph Office: Con Oseguera MD Hemoglobin (Bld) [Mass/Vol] 10.5 g/dL Low 13.5-17.5 [facility] Comment on above: Performed By: #### B MP #### [facility] [place] [address] Telephone Clerk Telegraph Office: Con Oseguera MD MCH (RBC) [Entitic mass] 22.4 pg Low 26-34 [facility] Comment on above: Performed By: #### B MP #### [facility] [place] [address] Telephone Clerk Telegraph Office: Con Oseguera MD MCHC (RBC) [Mass/Vol] 31.2 g/dL Normal 31-37 [facility] Comment on above: Performed By: #### B MP #### [facility] [address] [place] [address] Telephone Clerk Telegraph Office: Con Oseguera MD MCV (RBC) [Entitic vol] 71.7 fL Low 80-100 [facility] Comment on above: Performed By: #### B MP #### [facility] [address] [place] [address] Telephone Clerk Telegraph Office: Con Oseguera MD Platelet mean volume (Bld) [Entitic vol] 8.6 fL Normal 6.0-12.0 [facility] Comment on above: Performed By: #### B MP #### [facility] [place] [address] Telephone Clerk Telegraph Office: Con Oseguera MD Platelets (Bld) [#/Vol] 273 10*3/uL Normal 150-450 [facility] Comment on above: Performed By: #### B MP #### [facility] [place] [address] Telephone Clerk Telegraph Office: Con Oseguera MD RBC (Bld) [#/Vol] 4.68 10*6/uL Normal 4.5-5.9 [facility] Comment on above: Performed By: #### B MP #### [facility] [address] [place] [address] Telephone Clerk Telegraph Office: Con Oseguera MD WBC (Bld) [#/Vol] 10.3 10*3/uL Normal 3.5-11.0 [facility] Comment on above: Performed By: #### B MP #### [facility] [place] [address] Telephone Clerk Telegraph Office: Con Oseguera MD Abs.Imm.Granulocyte NOT REPORTED Normal 0.00-0.30 [facility] [place] Comment on above: Performed By: #### B MP #### [facility] [address] [address] Telephone Clerk Telegraph Office: Con Oseguera MD Auto Diff Performed NOT REPORTED Normal [facility] [place] Comment on above: Performed By: #### B MP #### [facility] [address] [facility] [place] [address] Telephone Clerk Telegraph Office: Con Oseguera MD Immature granulocytes (Bld) [#/Vol] NOT REPORTED Normal 0 [facility] Comment on above: Performed By: #### B MP #### [facility] [address] [facility] [address] Telephone Clerk Telegraph Office: Con Oseguera MD NRBC Automated NOT REPORTED Normal [facility] Comment on above: Performed By: #### B MP #### [facility] [address] [facility] [place] [address] Telephone Clerk Telegraph Office: Con Oseguera MD Platelets (Bld) [#/Vol] NOT REPORTED Normal [facility] Comment on above: Performed By: #### B MP #### [facility] [address] [facility] [place] [address] Telephone Clerk Telegraph Office: Con Oseguera MD RBC morphology finding Nom (Bld) NOT REPORTED Normal [facility] Comment on above: Performed By: #### B MP #### [facility] [address] [facility] [address] Telephone Clerk Telegraph Office: Con Oseguera MD WBC Morphology NOT REPORTED Normal [facility] Comment on above: Performed By: #### B MP #### [facility] [address] [place] [address] Telephone Clerk Telegraph Office: Con Oseguera MD CT ABDOMEN PELVIS WO [...] Del Angel MD 03/07/19 Final result Normal [facility] EXAMINATION: CT OF THE ABDOMEN AND [...] Degenerative changes of the spine are present. [employer] [facility] [place], [place] Bibasilar consolidative changes and right middle lobe pulmonary infiltrates, consistent with pneumonia in the appropriate clinical setting. Mild left pleural effusion. Diverticulosis coli, without evidence of diverticulitis or colitis. Prostatomegaly. [facility], [place] Stan, Mhpn Incoming Radiant Results From [facility] - 03/07/2019 7:00 PM EDT EXAMINATION: CT [...] without evidence of diverticulitis or colitis. Prostatomegaly. [facility], [place] Comp Metabolic Profon 2018 (cont.) Normal [facility] Comment on above: Result Comment: Aver age GFR for 70 or more years old: 75 mL/min/1.73sq m Chronic Kidney Disease: <60 mL/min/1.73sq m Kidney failure: <15 mL/min/1.73sq m eGFR calculated using average adult body mass. Additional eGFR calculator available at: http://www.Voltea.Prieto Battery/multiple_crcl_2012.htm Performed By: #### B MP #### [facility] [address] [facility]. [place], [place] [id number] Telephone Clerk Telegraph Office: Con Oseguera MD Albumin [Mass/Vol] 3.8 g/dL Normal 3.5-5.2 [facility] Comment on above: Performed By: #### B MP #### [facility] [address] [facility] [place] [address] Telephone Clerk Telegraph Office: Con Oseguera MD Alkaline Phos 166 U/L High 40-129 [facility] Comment on above: Performed By: #### B MP #### [facility] [address] [place] [address] Telephone Clerk Telegraph Office: Con Oseguera MD ALT [Catalytic activity/Vol] 28 U/L Normal 5-41 [facility] Comment on above: Performed By: #### B MP #### [facility] [address] [place] [address] Telephone Clerk Telegraph Office: Con Oseguera MD Anion gap [Moles/Vol] 12 mmol/L Normal 9-17 [facility] Comment on above: Performed By: #### B MP #### [facility] [address] [place] [address] Telephone Clerk Telegraph Office: Con Oseguera MD AST [Catalytic activity/Vol] 26 U/L Normal <40 [facility] Comment on above: Performed By: #### B MP #### [facility] [address] [place] [address] Telephone Clerk Telegraph Office: Con Oseguera MD Bilirubin Ql (U) 0.20 mg/dL Low 0.3-1.2 [facility] Comment on above: Performed By: #### B MP #### [facility] [address] [place] [address] Telephone Clerk Telegraph Office: Con Oseguera MD Calcium [Mass/Vol] 9.5 mg/dL Normal 8.6-10.4 [facility] Comment on above: Performed By: #### B MP #### [facility] [address] [place] [address] Telephone Clerk Telegraph Office: Con Oseguera MD Chloride [Moles/Vol] 98 mmol/L Normal 98-107 [facility] Comment on above: Performed By: #### B MP #### [facility] [address] [place] [address] Telephone Clerk Telegraph Office: Con Oseguera MD CO2 [Moles/Vol] 28 mmol/L Normal 20-31 [facility] Comment on above: Performed By: #### B MP #### [facility] [address] [place] [address] Telephone Clerk Telegraph Office: Con Oseguera MD Creatinine [Mass/Vol] 1.70 mg/dL High 0.70-1.20 [facility] Comment on above: Performed By: #### B MP #### [facility] [address] [place] [address] Telephone Clerk Telegraph Office: Con Oseguera MD GFR, Amer 47 mL/min Low >60 [facility] Comment on above: Performed By: #### B MP #### [facility] [address] [place] [address] Telephone Clerk Telegraph Office: Con Oseguera MD GFR,non Amer 39 mL/min Low >60 [facility] Comment on above: Performed By: #### B MP #### [facility] [address] [place] [address] Telephone Clerk Telegraph Office: Con Oseguera MD Glucose [Mass/Vol] 63 mg/dL Low 70-99 [facility] Comment on above: Performed By: #### B MP #### [facility] [address] [place] [address] Telephone Clerk Telegraph Office: Con Oseguera MD Potassium [Moles/Vol] 4.6 mmol/L Normal 3.7-5.3 [facility] Comment on above: Performed By: #### B MP #### [facility] [address] [place] [address] Telephone Clerk Telegraph Office: Con Oseguera MD Protein [Mass/Vol] 6.8 g/dL Normal 6.4-8.3 [facility] Comment on above: Performed By: #### B MP #### [facility] [address] [place] [address] Telephone Clerk Telegraph Office: Con Oseguera MD Sodium [Moles/Vol] 138 mmol/L Normal 135-144 [facility] Comment on above: Performed By: #### B MP #### [facility] [address] [place] [address] Telephone Clerk Telegraph Office: Con Oseguera MD Urea nitrogen [Mass/Vol] 30 mg/dL High 8-23 [facility] Comment on above: Performed By: #### B MP #### [facility] [address] [place] [address] Telephone Clerk Telegraph Office: Con Oseguera MD Albumin/Globulin [Mass ratio] NOT REPORTED Normal 1.0-2.5 [facility] Comment on above: Performed By: #### B MP #### [facility] [address] [place] [address] Telephone Clerk Telegraph Office: Con Oseguera MD BUN/CRE Ratio NOT REPORTED Normal 9-20 [facility] Comment on above: Performed By: #### B MP #### [facility] [address] [place] [address] Telephone Clerk Telegraph Office: Con Oseguera MD Staging: NOT REPORTED Normal [facility] Comment on above: Performed By: #### B MP #### [facility] [address] [place] [address] Telephone Clerk Telegraph Office: Con Oseguera MD Comprehensive Metabolic Pane blanca 03-07-2019 Albumin [Mass/Vol] 3.8 g/dL 3.5 - 5.2 g/dL [facility] [place], [place] Albumin/Globulin [Mass ratio] NOT REPORTED [facility], [place] ALP [Catalytic activity/Vol] 166 U/L High 40 - 129 U/L [place] ALT [Catalytic activity/Vol] 28 U/L 5 - 41 U/L [place] Anion gap [Moles/Vol] 12 mmol/L 9 - 17 mmol/L [place] AST [Catalytic activity/Vol] 26 U/L <40 [place] Bilirubin Ql (U) 0.20 mg/dL Low 0.3 - 1.2 mg/dL [place] Bun/Cre Ratio NOT REPORTED [place] Calcium [Mass/Vol] 9.5 mg/dL 8.6 - 10. 4 mg/dL [place] Chloride [Moles/Vol] 98 mmol/L 98 - 10 7 mmol/L [place] CO2 [Moles/Vol] 28 mmol/L 20 - 31 mmol/L [place] Creatinine [Mass/Vol] 1.7 mg/dL High 0.7 - 1.2 mg/dL [place] GFR 47 mL/min Low >60 [place] GFR Non- 39 mL/min Low >60 [place] GFR/1.73 sq M predicted among non-blacks MDRD (S/P/Bld) [Vol rate/Area] NOT REPORTED [place] GFR/1.73 sq M predicted among non-blacks MDRD (S/P/Bld) [Vol rate/Area] [place] Comment on above: Average GFR for 70 o r more years old: 75 mL/min/1.73sq m Chronic Kidney Disease: <60 mL/min/1.73sq m Kidney failure: <15 mL/min/1.73sq m eGFR calculated using average adult body mass. Additional eGFR calculator available at: http://www.[employer].Prieto Battery/multiple_crcl_2011.htm Glucose [Mass/Vol] 63 mg/dL Low 70 - 99 mg/dL [place] Potassium [Moles/Vol] 4.6 mmol/L 3.7 - 5.3 mmol/L [place] Protein [Mass/Vol] 6.8 g/dL 6.4 - 8.3 g/dL [place] Sodium [Moles/Vol] 138 mmol/L 135 - 144 mmol/L [place] Urea nitrogen [Mass/Vol] 30 mg/dL High 8 - 23 mg/dL [place] Lipaseon 03-07-2019 Lipase [Catalytic activity/Vol] 83 U/L High 13-60 [facility] Comment on above: Performed By: #### B MP #### [facility] [address] [place] [address] Telephone Clerk Telegraph Office: Con Oseguera MD Lipase [Catalytic activity/Vol] 83 U/L High 13 - 60 U/L [place] Microscopic Urinalysison Amorphous, UA NOT REPORTED None [place] Bacteria, UA MODERATE Abnormal None [place] Casts UA NOT REPORTED /LPF [place] Crystals UA NOT REPORTED None /HPF [place] Epithelial Cells UA 0 TO 2 /HPF [place] Interpretation and review of laboratory results Abnormal [place] Mucus, UA NOT REPORTED None [place] Other Observations UA NOT REPORTED NOT REQ. [place] RBC (U) [#/Vol] 10 TO 20 /HPF [place] Renal Epithelial, Urine NOT REPORTED 0 /HPF [place] Trichomonas, UA NOT REPORTED None [place], [place] WBC, UA 20 TO 50 /HPF [place] Yeast, UA NOT REPORTED None [place], [place] - [place] Otheron 03-07-2019 Immature granulocytes (Bld) [#/Vol] NOT REPORTED [place] Interpretation and review of laboratory results Abnormal [place] POC Glucose Fingerstickon Glucose [Mass/Vol] 167 mg/dL High 75 - 110 mg/dL [place] Interpretation and review of laboratory results Abnormal [place] Glucose [Mass/Vol] 124 mg/dL High 75 - 110 mg/dL [place] Interpretation and review of laboratory results Abnormal [place] POCT Glucoseon 03-07-2019 Glucose [Mass/Vol] 124 mg/dL [place] Interpretation and review of laboratory results Normal [place] QC OK? y [place] Troponinon 03-07-2019 Troponin I.cardiac [Mass/Vol] 27 ng/L High 0-22 [facility] Comment on above: Result Comment: High Sensitivity Troponin values cannot be compared with other Troponin methodologies. Patients with high levels of Biotin oral intake (i.e >5mg/day) may have falsely decreased Troponin levels. Samples collected within 8 hours of biotin intake may require additional information for diagnosis. Performed By: #### B MP #### [facility] [address] [facility] [place] [address] Telephone Clerk Telegraph Office: Con Oseguera MD Troponin I.cardiac [Mass/Vol] 29 ng/L High 0-22 [facility] Comment on above: Result Comment: High Sensitivity Troponin values cannot be compared with other Troponin methodologies. Patients with high levels of Biotin oral intake (i.e >5mg/day) may have falsely decreased Troponin levels. Samples collected within 8 hours of biotin intake may require additional information for diagnosis. Performed By: #### B MP #### [facility] [address] [facility] [place], [place] [id number] Telephone Clerk Telegraph Office: Con Oseguera MD Interpretation and review of laboratory results Abnormal [place] Troponin I.cardiac [Mass/Vol] NOT REPORTED [place] Troponin T.cardiac [Mass/Vol] NOT REPORTED <0.03 ng/mL [place] Troponin, High Sensitivity 27 ng/L High 0 - 22 ng/L [place] Comment on above: High Sensitivity Troponin values cannot be compared with other Troponin methodologies. Patients with high levels of Biotin oral intake (i.e >5mg/day) may have falsely decreased Troponin levels. Samples collected within 8 hours of biotin intake may require additional information for diagnosis. Troponin I.cardiac [Mass/Vol] NOT REPORTED Normal [facility] Comment on above: Performed By: #### B MP #### [facility] [address] [facility] [place] [address] Telephone Clerk Telegraph Office: Con Oseguera MD Troponin I.cardiac [Mass/Vol] NOT REPORTED Normal <0.03 [place] Comment on above: Performed By: #### B MP #### [facility] [address] [facility] [place] [address] Telephone Clerk Telegraph Office: Con Oseguera MD Interpretation and review of laboratory results Abnormal [place] Troponin T.cardiac [Mass/Vol] NOT REPORTED <0.03 ng/mL [place] Troponin, High Sensitivity 29 ng/L High 0 - 22 ng/L [place] Comment on above: High Sensitivity Troponin values cannot be compared with other Troponin methodologies. Patients with high levels of Biotin oral intake (i.e >5mg/day) may have falsely decreased Troponin levels. Samples collected within 8 hours of biotin intake may require additional information for diagnosis. UA w/Reflex Cultureon 2018 Acetoacetic Acid,Ur Negative Normal NEG [facility] Comment on above: Performed By: #### B MP #### [facility] [address] [facility] [place] [address] Telephone Clerk Telegraph Office: Con Oseguera MD Bilirubin, SemiQt,Ur Negative Normal NEG [facility] Comment on above: Performed By: #### B MP #### [facility] [place] [address] Telephone Clerk Telegraph Office: Con Oseguera MD Color (U) YELLOW Normal YEL [facility] Comment on above: Performed By: #### B MP #### [facility] [address] [place] [address] Telephone Clerk Telegraph Office: Con Oseguera MD Glucose Ql (U) Negative Normal NEG [facility] Comment on above: Performed By: #### B MP #### [facility] [address] [place] [address] Telephone Clerk Telegraph Office: Con Oseguera MD Hemoglobin, Ur MOD Abnormal NEG [facility] Comment on above: Performed By: #### B MP #### [facility] [address] [place] [address] Telephone Clerk Telegraph Office: Con Oseguera MD Leukocyte esterase Test strip Ql (U) LARGE Abnormal NEG [facility] Comment on above: Performed By: #### B MP #### [facility] [address] [place] [address] Telephone Clerk Telegraph Office: Con Oseguera MD Nitrite,Ur Negative Normal NEG [facility] Comment on above: Performed By: #### B MP #### [facility] [address] [address] Telephone Clerk Telegraph Office: Con Oseguera MD pH (U) 6.5 [pH] Normal 5.0-8.0 [facility] Comment on above: Performed By: #### B MP #### [facility] [address] [facility] [place] [address] Telephone Clerk Telegraph Office: Con Oseguera MD Protein Ql (U) 2+ Abnormal NEG [facility] Comment on above: Performed By: #### B MP #### [facility] [place] [address] Telephone Clerk Telegraph Office: Con Oseguera MD Specific gravity (U) [Rel density] 1.017 Normal 1.000-1.030 [facility] Comment on above: Performed By: #### B MP #### [facility] [place] [address] Telephone Clerk Telegraph Office: Con Oseguera MD Turbidity CLOUDY Abnormal CLEAR [facility] Comment on above: Performed By: #### B MP #### [facility] [place] [address] Telephone Clerk Telegraph Office: Con Oseguera MD Urobilinogen,Ur Normal Normal NORM [facility] Comment on above: Performed By: #### B MP #### [facility] [address] [place] [address] Telephone Clerk Telegraph Office: Con Oseguera MD Comment NOT REPORTED Normal [facility] Comment on above: Performed By: #### B MP #### [facility] [address] [place] [address] Telephone Clerk Telegraph Office: Con Oseguera MD Urinalysis Reflex to Culture on 03-07-2019 Bilirubin Urine Negative NEGATIVE [facility] [place] Color, UA YELLOW YELLOW [facility] Glucose, Ur Negative NEGATIVE [facility] Interpretation and review of laboratory results Abnormal [facility] Ketones Ql (U) Negative NEGATIVE [facility] [place] Leukocyte esterase Test strip Ql (U) LARGE Abnormal NEGATIVE [facility] Nitrite, Urine Negative NEGATIVE [facility] [place] pH, UA 6.5 [facility] Protein (U) [Mass/Vol] 2+ Abnormal NEGATIVE [facility] Specific [place], UA 1.017 [facility] Turbidity UA CLOUDY Abnormal CLEAR [facility] [place] Urinalysis Comments NOT REPORTED [facility] Urine Hgb MOD Abnormal NEGATIVE [facility] Urobilinogen, Urine Normal Normal [facility] Urinalysis,Microon 9 ----- Normal [facility] Comment on above: Performed By: #### B MP #### [facility] [address] [facility] [place] [address] Telephone Clerk Telegraph Office: Con Oseguera MD Bacteria LM.HPF (Urine sed) [#/Area] MODERATE Abnormal NONE [facility] Comment on above: Performed By: #### B MP #### [facility] [address] [place] [address] Telephone Clerk Telegraph Office: Con Oseguera MD Epithelial cells LM.HPF (Urine sed) [#/Area] 0 TO 2 Normal [facility] Comment on above: Performed By: #### B MP #### [facility] [place] [address] Telephone Clerk Telegraph Office: Con Oseguera MD RBC (U) [#/Vol] 10 TO 20 Normal [facility] Comment on above: Performed By: #### B MP #### [facility] [place] [address] Telephone Clerk Telegraph Office: Con Oseguera MD WBC (U) [#/Vol] 20 TO 50 Normal [facility] Comment on above: Performed By: #### B MP #### [facility] [address] [place] [address]. [place] [address] Telephone Clerk Telegraph Office: Con Oseguera MD Amorphous sediment LM Ql (Urine sed) NOT REPORTED Normal NONE [facility] Comment on above: Performed By: #### B MP #### [facility] [address] [place] [address]. [place] [address] Telephone Clerk Telegraph Office: Con Oseguera MD Casts LM.LPF (Urine sed) [#/Area] NOT REPORTED Normal [facility] Comment on above: Performed By: #### B MP #### [facility] [address] [place] [address]. [place] [address] Telephone Clerk Telegraph Office: Con Oseguera MD Crystals LM Nom (Urine sed) NOT REPORTED Normal NONE [facility] Comment on above: Performed By: #### B MP #### [facility] [address] [place] [address]. [place] [address] Telephone Clerk Telegraph Office: Con Oseguera MD Epithelial, Renal NOT REPORTED Normal 0 [facility] Comment on above: Performed By: #### B MP #### [facility] [address] [place], [place] [address]. [place] [address] Telephone Clerk Telegraph Office: Con Oseguera MD Mucus Strands NOT REPORTED Normal NONE [facility] Comment on above: Performed By: #### B MP #### [facility] [address] [facility] [place] [address] Telephone Clerk Telegraph Office: Con Oseguera MD Other Observations NOT REPORTED Normal NREQ [facility] Comment on above: Performed By: #### B MP #### [facility] [address] [facility] [place] [address] Telephone Clerk Telegraph Office: Con Oseguera MD Trichomonas NOT REPORTED Normal NONE [facility] Comment on above: Performed By: #### B MP #### [facility] [place] [address] Telephone Clerk Telegraph Office: Con Oseguera MD Yeast LM Ql (Urine sed) NOT REPORTED Normal [facility] Comment on above: Performed By: #### B MP #### [facility] [place] [address] Telephone Clerk Telegraph Office: Con Oseguera MD XR CHEST (2 VW)on [...] Yoni Faye MD 03/07/19 Final result Normal [facility] XR CHEST STANDARD (2 VW)on 0 03-07-2019 Stan[facility]uzanne ba Incoming Radiant Results From [facility] - 03/07/2019 5:45 PM EDT EXAMINATION: TWO [...] bilaterally. Pneumonia is favored over atypical edema [place] Multifocal airspace disease bilaterally. Pneumonia is favored over atypical edema [place] EXAMINATION: TWO XRA Y VIEWS OF [...] is noted. Small effusions are suggested bilaterally [place] Magnesiumon 12-13-2018 Magnesium [Mass/Vol] 2.1 mg/dL Normal 1.6-2.6 [facility] Comment on above: Performed By: #### B MP #### [facility] [address] [place] [address] Telephone Clerk Telegraph Office: Con Oseguera MD Basic Metabolic Profon 12-11 (cont.) Normal [facility] Comment on above: Result Comment: Aver age GFR for 70 or more years old: 75 mL/min/1.73sq m Chronic Kidney Disease: <60 mL/min/1.73sq m Kidney failure: <15 mL/min/1.73sq m eGFR calculated using average adult body mass. Additional eGFR calculator available at: http://www.Voltea.com/multiple_crcl_2011.htm Performed By: #### B MP #### [facility] [address] [place] [address] Telephone Clerk Telegraph Office: Con Oseguera MD Anion gap [Moles/Vol] 13 mmol/L Normal 9-17 [facility] Comment on above: Performed By: #### B MP #### [facility] [address] [place] [address] Telephone Clerk Telegraph Office: Con Oseguera MD Calcium [Mass/Vol] 8.6 mg/dL Normal 8.6-10.4 [facility] Comment on above: Performed By: #### B MP #### [facility] [address] [place] [address] Telephone Clerk Telegraph Office: Con Oseguera MD Chloride [Moles/Vol] 100 mmol/L Normal 98-107 [facility] Comment on above: Performed By: #### B MP #### [facility] [address] [place] [address] Telephone Clerk Telegraph Office: Con Oseguera MD CO2 [Moles/Vol] 22 mmol/L Normal 20-31 [facility] Comment on above: Performed By: #### B MP #### [facility] [address] [place] [address] Telephone Clerk Telegraph Office: Con Oseguera MD Creatinine [Mass/Vol] 1.02 mg/dL Normal 0.70-1.20 [facility] Comment on above: Performed By: #### B MP #### [facility] [address] [place] [address] Telephone Clerk Telegraph Office: Con Oseguera MD GFR, Amer >60 Normal >60 [facility] Comment on above: Performed By: #### B MP #### [facility] [address] [place] [address] Telephone Clerk Telegraph Office: Con Oseguera MD GFR,non Amer >60 Normal >60 [facility] Comment on above: Performed By: #### B MP #### [facility] [address] [place] [address] Telephone Clerk Telegraph Office: Con Oseguera MD Glucose [Mass/Vol] 151 mg/dL High 70-99 [facility] Comment on above: Performed By: #### B MP #### [facility] [address] [place] [address] Telephone Clerk Telegraph Office: Con Oseguera MD Potassium [Moles/Vol] 4.0 mmol/L Normal 3.7-5.3 [facility] Comment on above: Performed By: #### B MP #### [facility] [address] [place] [address] Telephone Clerk Telegraph Office: Con Oseguera MD Sodium [Moles/Vol] 135 mmol/L Normal 135-144 [facility] Comment on above: Performed By: #### B MP #### [facility] [address] [place] [address] Telephone Clerk Telegraph Office: Con Oseguera MD Urea nitrogen [Mass/Vol] 22 mg/dL Normal 8-23 [facility] Comment on above: Performed By: #### B MP #### [facility] [address] [place] [address] Telephone Clerk Telegraph Office: Con Oseguera MD BUN/CRE Ratio NOT REPORTED Normal 9-20 [facility] Comment on above: Performed By: #### B MP #### [facility] [address] [place] [address] Telephone Clerk Telegraph Office: Con Oseguera MD Staging: NOT REPORTED Normal [facility] Comment on above: Performed By: #### B MP #### [facility] [address] [place] [address] Telephone Clerk Telegraph Office: Con Oseguera MD CBC with Diffon 12-11-2018 Abs. Basophil 0.00 k/uL Normal 0.0-0.2 [facility] Comment on above: Performed By: #### B MP #### [facility] [place] [address] Telephone Clerk Telegraph Office: Con Oseguera MD Abs.Neutrophil (Seg) 9.27 k/uL High 1.3-9.1 [facility] Comment on above: Performed By: #### B MP #### [facility] [address] [place] [address]. [place] [address] Telephone Clerk Telegraph Office: Con Oseguera MD Basophils/100 WBC (Bld) 0 % Normal 0-2 [facility] Comment on above: Performed By: #### B MP #### [facility] [place] [address] Telephone Clerk Telegraph Office: Con Oseguera MD Eosinophils (Bld) [#/Vol] 0.12 10*3/uL Normal 0.0-0.4 [facility] Comment on above: Performed By: #### B MP #### [facility] [place] [address] Telephone Clerk Telegraph Office: Con Oseguera MD Eosinophils/100 WBC (Bld) 1 % Normal 0-4 [facility] Comment on above: Performed By: #### B MP #### [facility] [place] [address] Telephone Clerk Telegraph Office: Con Oseguera MD Lymphocytes (Bld) [#/Vol] 1.22 10*3/uL Normal 1.0-4.8 [facility] Comment on above: Performed By: #### B MP #### [facility] [place] [address] Telephone Clerk Telegraph Office: Con Oseguera MD Lymphocytes/100 WBC (Bld) 10 % Low 24-44 [facility] Comment on above: Performed By: #### B MP #### [facility] [address] [place] [address] Telephone Clerk Telegraph Office: Con Oseguera MD Monocytes (Bld) [#/Vol] 1.59 10*3/uL High 0.1-1.3 [facility] Comment on above: Performed By: #### B MP #### [facility] [address] [place] [address] Telephone Clerk Telegraph Office: Con Oseguera MD Monocytes/100 WBC (Bld) 13 % High 1-7 [facility] Comment on above: Performed By: #### B MP #### [facility] [address] [place] [address] Telephone Clerk Telegraph Office: Con Oseguera MD Morphology Theo (Bld) [Interp] ANISOCYTOSIS PRESENT Normal [facility] Comment on above: Result Comment: MICR OCYTOSIS PRESENT HYPOCHROMIA PRESENT 1+ POLYCHROMASIA 1+ ECHINOCYTES 1+ ELLIPTOCYTES Performed By: #### B MP #### [facility] [address] [place] [address] Telephone Clerk Telegraph Office: Con Oseguera MD Neutrophil (Seg) 76 % High 36-66 [facility] Comment on above: Performed By: #### B MP #### [facility] [address] [place] [address] Telephone Clerk Telegraph Office: Con Oseguera MD Erythrocyte distribution width (RBC) [Ratio] 18.7 % High 11.5-14.9 [facility] Comment on above: Performed By: #### B MP #### [facility] [address] [place] [address] Telephone Clerk Telegraph Office: Con Oseguera MD Hematocrit (Bld) [Volume fraction] 26.2 % Low 41-53 [facility] Comment on above: Performed By: #### B MP #### [facility] [place] [address] Telephone Clerk Telegraph Office: Con Oseguera MD Hemoglobin (Bld) [Mass/Vol] 8.1 g/dL Low 13.5-17.5 [facility] Comment on above: Performed By: #### B MP #### [facility] [place] [address] Telephone Clerk Telegraph Office: Con Oseguera MD MCH (RBC) [Entitic mass] 20.5 pg Low 26-34 [facility] Comment on above: Performed By: #### B MP #### [facility] [place] [address] Telephone Clerk Telegraph Office: Con Oseguera MD MCHC (RBC) [Mass/Vol] 30.9 g/dL Low 31-37 [facility] Comment on above: Performed By: #### B MP #### [facility] [place] [address] Telephone Clerk Telegraph Office: Con Oseguera MD MCV (RBC) [Entitic vol] 66.4 fL Low 80-100 [facility] Comment on above: Performed By: #### B MP #### [facility] [place] [address] Telephone Clerk Telegraph Office: Con Oseguera MD Platelet mean volume (Bld) [Entitic vol] 9.3 fL Normal 6.0-12.0 [facility] Comment on above: Performed By: #### B MP #### [facility] [place] [address] Telephone Clerk Telegraph Office: Con Oseguera MD Platelets (Bld) [#/Vol] 234 10*3/uL Normal 150-450 [facility] Comment on above: Performed By: #### B MP #### [facility] [address] [facility] [place] [address] Telephone Clerk Telegraph Office: Con Oseguera MD RBC (Bld) [#/Vol] 3.94 10*6/uL Low 4.5-5.9 [facility] Comment on above: Performed By: #### B MP #### [facility] [address] [facility] [place] [address] Telephone Clerk Telegraph Office: Con Oseguera MD WBC (Bld) [#/Vol] 12.2 10*3/uL High 3.5-11.0 [facility] Comment on above: Performed By: #### B MP #### [facility] [place] [address] Telephone Clerk Telegraph Office: Con Oseguera MD Abs.Imm.Granulocyte NOT REPORTED Normal 0.00-0.30 [facility] Comment on above: Performed By: #### B MP #### [facility] [place] [address] Telephone Clerk Telegraph Office: Con Oseguera MD Auto Diff Performed NOT REPORTED Normal [facility] [place] Comment on above: Performed By: #### B MP #### [facility] [place] [address] Telephone Clerk Telegraph Office: Con Oseguera MD Immature granulocytes (Bld) [#/Vol] NOT REPORTED Normal 0 [facility] Comment on above: Performed By: #### B MP #### [facility] [place] [address] Telephone Clerk Telegraph Office: Con Oseguera MD NRBC Automated NOT REPORTED Normal [facility] Comment on above: Performed By: #### B MP #### [facility] [address] [facility] [place] [address] Telephone Clerk Telegraph Office: Con Oseguera MD Platelets (Bld) [#/Vol] NOT REPORTED Normal [facility] Comment on above: Performed By: #### B MP #### [facility] [address] [facility] [place] [address] Telephone Clerk Telegraph Office: Con Oseguera MD RBC morphology finding Nom (Bld) NOT REPORTED Normal [facility] Comment on above: Performed By: #### B MP #### [facility] [address] [facility] [place] [address] Telephone Clerk Telegraph Office: Con Oseguera MD WBC Morphology NOT REPORTED Normal [facility] Comment on above: Performed By: #### B MP #### [facility] [address] [facility] [place] [address] Telephone Clerk Telegraph Office: Con Oseguera MD Brain Natri. Peptideon 12-10 Natriuretic peptide B (Bld) [Mass/Vol] 1543 pg/mL High <300 [facility] Comment on above: Result Comment: Pro- BNP results cannot be compared to BNP results. Performed By: #### R EJEC, LIP, TROPI, CP, DIGC, BNP ####[facility] [address] [place] [address] Lab Director: Con Oseguera MD Natriuretic peptide B (Bld) [Mass/Vol] Pro-BNP Reference Range: Normal [facility] Comment on above: Result Comment: Rule Out: <300 Miranda Zone: Age <50 300-450 Age 50-75 300-900 Age >75 300-1800 Usually represents mild to moderate HF but other cardiopulmonary causes cannot be ruled out. Rule In: Age <50 >450 Age 50-75 >900 Age >75 >1800 Performed By: #### R EJEC, LIP, TROPI, CP, DIGC, BNP ####[facility] [address] [facility] [place] [address] Lab Director: Con Oseguera MD CBC with Diffon 12-10-2018 Abs. Basophil 0.00 k/uL Normal 0.0-0.2 [facility] Comment on above: Performed By: #### P T, CDP ####[facility] [address], [place] [id number])[phone] Director: Con Oseguera MD Abs.Neutrophil (Seg) 10.73 k/uL High 1.3-9.1 [facility] Comment on above: Performed By: #### P T, CDP ####[facility] [address], [place] [phone] Director: Con Oseguera MD Basophils/100 WBC (Bld) 0 % Normal 0-2 [facility] Comment on above: Performed By: #### P T, CDP ####[facility] [address], [place] [address])[phone] Director: Con Oseguera MD Eosinophils (Bld) [#/Vol] 0.13 10*3/uL Normal 0.0-0.4 [facility] Comment on above: Performed By: #### P T, CDP ####[facility] [address], [place] [phone] Director: Con Oseguera MD Eosinophils/100 WBC (Bld) 1 % Normal 0-4 [facility] Comment on above: Performed By: #### P T, CDP ####[facility] [address], [place] [id number])[phone] Director: Con Oseguera MD Lymphocytes (Bld) [#/Vol] 1.07 10*3/uL Normal 1.0-4.8 [facility] Comment on above: Performed By: #### P T, CDP ####[facility] [address], [place] [phone] Director: Con Oseguera MD Lymphocytes/100 WBC (Bld) 8 % Low 24-44 [facility] Comment on above: Performed By: #### P T, CDP ####[facility] [address] [place] [address] Lab Director: Con Oseguera MD Monocytes (Bld) [#/Vol] 1.47 10*3/uL High 0.1-1.3 [facility] Comment on above: Performed By: #### P T, CDP ####[facility] [address] [place] [address] Lab Director: Con Oseguera MD Monocytes/100 WBC (Bld) 11 % High 1-7 [facility] Comment on above: Performed By: #### P T, CDP ####[facility] [address] [place] [address] Lab Director: Con Oseguera MD Morphology Theo (Bld) [Interp] ANISOCYTOSIS PRESENT Normal [facility] Comment on above: Result Comment: HYPO CHROMIA PRESENT MICROCYTOSIS PRESENT 1+ ELLIPTOCYTES FEW ECHINOCYTES Performed By: #### P T, CDP ####[facility] [address] [place] [address] Lab Director: Con Oseguera MD Neutrophil (Seg) 80 % High 36-66 [facility] Comment on above: Performed By: #### P T, CDP ####[facility] [address] [facility] [address] Lab Director: Con Oseguera MD Erythrocyte distribution width (RBC) [Ratio] 19.0 % High 11.5-14.9 [facility] Comment on above: Performed By: #### P T, CDP ####[facility] [address] [place] [address] Lab Director: Con Oseguera MD Hematocrit (Bld) [Volume fraction] 28.3 % Low 41-53 [facility] Comment on above: Performed By: #### P T, CDP ####[facility] [address] [place] [address] Lab Director: Con Oseguera MD Hemoglobin (Bld) [Mass/Vol] 8.7 g/dL Low 13.5-17.5 [facility] Comment on above: Performed By: #### P T, CDP ####[facility] [address] [place] [address] Lab Director: Con Oseguera MD MCH (RBC) [Entitic mass] 20.6 pg Low 26-34 [facility] Comment on above: Performed By: #### P T, CDP ####[facility] [address] [facility], [place] [phone] Director: Con Oseguera MD MCHC (RBC) [Mass/Vol] 30.7 g/dL Low 31-37 [facility] Comment on above: Performed By: #### P T, CDP ####[facility] [address] [facility], [place] [phone] Director: Con Oseguera MD MCV (RBC) [Entitic vol] 67.1 fL Low 80-100 [facility] Comment on above: Performed By: #### P T, CDP ####[facility] [address] [facility] [place] [address] Lab Director: Con Oseguera MD Platelet mean volume (Bld) [Entitic vol] 9.0 fL Normal 6.0-12.0 [facility] Comment on above: Performed By: #### P T, CDP ####[facility] [address] [place] [address] Lab Director: Con Oseguera MD Platelets (Bld) [#/Vol] 249 10*3/uL Normal 150-450 [facility] Comment on above: Performed By: #### P T, CDP ####[facility] [address], [place] [address])[phone] Director: Con Oseguera MD RBC (Bld) [#/Vol] 4.22 10*6/uL Low 4.5-5.9 [facility] Comment on above: Performed By: #### P T, CDP ####[facility] [address], [place] [phone] Director: Con Oseguera MD WBC (Bld) [#/Vol] 13.4 10*3/uL High 3.5-11.0 [facility] Comment on above: Performed By: #### P T, CDP ####[facility] [address] [facility], [place] [address])[phone] Director: Con Oseguera MD Abs.Imm.Granulocyte NOT REPORTED Normal 0.00-0.30 [facility] [place] Comment on above: Performed By: #### P T, CDP ####[facility] [address] [facility], [place] [address])[phone] Director: Con Oseguera MD Auto Diff Performed NOT REPORTED Normal [facility] Comment on above: Performed By: #### P T, CDP ####[facility] [address] [facility], [place] [address])[phone] Director: Con Oseguera MD Immature granulocytes (Bld) [#/Vol] NOT REPORTED Normal 0 [facility] Comment on above: Performed By: #### P T, CDP ####[facility] [address] [facility], [place] [phone] Director: Con Oseguera MD NRBC Automated NOT REPORTED Normal [facility] Comment on above: Performed By: #### P T, CDP ####[facility] [address] [place] [address] Lab Director: Con Oseguera MD Platelets (Bld) [#/Vol] NOT REPORTED Normal [facility] Comment on above: Performed By: #### P T, CDP ####[facility] [address], [place] [phone] Director: Con Oseguera MD RBC morphology finding Nom (Bld) NOT REPORTED Normal [facility] Comment on above: Performed By: #### P T, CDP ####[facility] [address], [place] [phone] Director: Con Oseguera MD WBC Morphology NOT REPORTED Normal [facility] Comment on above: Performed By: #### P T, CDP ####[facility] [address] [place] [address] Lab Director: Con Oseguera MD CT ABDOMEN PELVIS [...] Sawyer Jr., DO 12/10/18 Final result Normal [facility] Comp Metabolic Profon 2018 (cont.) Normal [facility] Comment on above: Result Comment: Aver age GFR for 70 or more years old: 75 mL/min/1.73sq m Chronic Kidney Disease: <60 mL/min/1.73sq m Kidney failure: <15 mL/min/1.73sq m eGFR calculated using average adult body mass. Additional eGFR calculator available at: http://www.[employer]/multiple_crcl_2012.htm Performed By: #### R EJEC, LIP, TROPI, CP, DIGC, BNP ####[facility] [address] [facility] [place] [address] [facility] Director: Con Oseguera MD Alkaline Phos 125 U/L Normal 40-129 [facility] Comment on above: Result Comment: SPEC IMEN SLIGHTLY HEMOLYZED, RESULTS MAY BE ADVERSELY AFFECTED. Performed By: #### R EJEC, LIP, TROPI, CP, DIGC, BNP ####[facility] [address] [facility] [place] [address] lab Director: Con Oseguera MD ALT [Catalytic activity/Vol] 15 U/L Normal 5-41 [facility] Comment on above: Result Comment: SPEC IMEN SLIGHTLY HEMOLYZED, RESULTS MAY BE ADVERSELY AFFECTED. Performed By: #### R EJEC, LIP, TROPI, CP, DIGC, BNP ####[facility] [address] [place] [address] Lab Director: Con Oseguera MD Anion gap [Moles/Vol] 17 mmol/L Normal 9-17 [facility] Comment on above: Performed By: #### R EJEC, LIP, TROPI, CP, DIGC, BNP ####[facility] [address] [place] [address] Lab Director: Con Osgeuera MD AST [Catalytic activity/Vol] 28 U/L Normal <40 [facility] Comment on above: Result Comment: SPEC IMEN SLIGHTLY HEMOLYZED, RESULTS MAY BE ADVERSELY AFFECTED. Performed By: #### R EJEC, LIP, TROPI, CP, DIGC, BNP ####[facility] [address] [place] [address] Lab Director: Con Oseguera MD Bilirubin Ql (U) 0.51 mg/dL Normal 0.3-1.2 [facility] Comment on above: Result Comment: SPEC IMEN SLIGHTLY HEMOLYZED, RESULTS MAY BE ADVERSELY AFFECTED. Performed By: #### R EJEC, LIP, TROPI, CP, DIGC, BNP ####[facility] [address] [place] [address] Lab Director: Con Oseguera MD Calcium [Mass/Vol] 9.1 mg/dL Normal 8.6-10.4 [facility] Comment on above: Result Comment: SPEC IMEN SLIGHTLY HEMOLYZED, RESULTS MAY BE ADVERSELY AFFECTED. Performed By: #### R EJEC, LIP, TROPI, CP, DIGC, BNP ####[facility] [address] [place] [address] Lab Director: Con Oseguera MD GFR, Amer >60 Normal >60 [facility] Comment on above: Performed By: #### R EJEC, LIP, TROPI, CP, DIGC, BNP ####[facility] [address] [place] [address] Lab Director: Con Oseguera MD GFR,non Amer >60 Normal >60 [facility] Comment on above: Performed By: #### R EJEC, LIP, TROPI, CP, DIGC, BNP ####[facility] [address] [place] [address] Lab Director: Con Oseguera MD Potassium [Moles/Vol] 4.8 mmol/L Normal 3.7-5.3 [facility] Comment on above: Result Comment: SPEC IMEN SLIGHTLY HEMOLYZED, RESULTS MAY BE ADVERSELY AFFECTED. Performed By: #### R EJEC, LIP, TROPI, CP, DIGC, BNP ####[facility] [address] [place] [address] Lab Director: Con Oseguera MD Protein [Mass/Vol] 6.9 g/dL Normal 6.4-8.3 [facility] Comment on above: Result Comment: SPEC IMEN SLIGHTLY HEMOLYZED, RESULTS MAY BE ADVERSELY AFFECTED. Performed By: #### R EJEC, LIP, TROPI, CP, DIGC, BNP ####[facility] [address] [place] [address] Lab Director: Con Oseguera MD Sodium [Moles/Vol] 134 mmol/L Low 135-144 [facility] Comment on above: Result Comment: SPEC IMEN SLIGHTLY HEMOLYZED, RESULTS MAY BE ADVERSELY AFFECTED. Performed By: #### R EJEC, LIP, TROPI, CP, DIGC, BNP ####[facility] [address] [place] [address] Lab Director: Con Oseguera MD Albumin [Mass/Vol] 4.1 g/dL Normal 3.5-5.2 [facility] Comment on above: Performed By: #### R EJEC, LIP, TROPI, CP, DIGC, BNP ####[facility] [address] [place] [address] Lab Director: Con Oseguera MD Chloride [Moles/Vol] 99 mmol/L Normal 98-107 [facility] Comment on above: Performed By: #### R EJEC, LIP, TROPI, CP, DIGC, BNP ####[facility] [address] [place] [address] Lab Director: Con Oseguera MD CO2 [Moles/Vol] 18 mmol/L Low 20-31 [facility] Comment on above: Performed By: #### R EJEC, LIP, TROPI, CP, DIGC, BNP ####[facility] [address] [place] [address] Lab Director: Con Oseguera MD Creatinine [Mass/Vol] 0.98 mg/dL Normal 0.70-1.20 [facility] Comment on above: Performed By: #### R EJEC, LIP, TROPI, CP, DIGC, BNP ####[facility] [address] [place] [address] Lab Director: Con Oseguera MD Glucose [Mass/Vol] 148 mg/dL High 70-99 [facility] Comment on above: Performed By: #### R EJEC, LIP, TROPI, CP, DIGC, BNP ####[facility] [address] [place] [address] Lab Director: Con Oseguera MD Urea nitrogen [Mass/Vol] 24 mg/dL High 8-23 [facility] Comment on above: Performed By: #### R EJEC, LIP, TROPI, CP, DIGC, BNP ####[facility] [address] [place] [address] Lab Director: Con Oseguera MD Albumin/Globulin [Mass ratio] NOT REPORTED Normal 1.0-2.5 [facility] Comment on above: Performed By: #### R EJEC, LIP, TROPI, CP, DIGC, BNP ####[facility] [address], [place] [id number])[phone] Director: Con Oseguera MD BUN/CRE Ratio NOT REPORTED Normal 9-20 [facility] Comment on above: Performed By: #### R EJEC, LIP, TROPI, CP, DIGC, BNP ####[facility] [address] [facility], [place] [address])[phone] Director: Con Oseguera MD Staging: NOT REPORTED Normal [facility] Comment on above: Performed By: #### R EJEC, LIP, TROPI, CP, DIGC, BNP ####[facility] [address] [facility], [place] [address] [phone] Director: Con Oseguera MD Digoxinon 12-10-2018 Digoxin [Mass/Vol] ng/mL Low 0.5-2.0 [facility] Comment on above: Result Comment: Digoxin Reference Range: Heart Failure 0.5-0.9 Atrial Fibrillation 0.8-2.0 Performed By: #### R EJEC, LIP, TROPI, CP, DIGC, BNP ####[facility] [id number] [place] [address] Lab Director: Con Oseguera MD Digoxin [Mass/Vol] UNKNOWN Normal [facility] Comment on above: Performed By: #### R EJEC, LIP, TROPI, CP, DIGC, BNP ####[facility] [address] [place] [address] Lab Director: Con Oseguera MD Lipaseon 12-10-2018 Lipase [Catalytic activity/Vol] 48 U/L Normal 13-60 [facility] Comment on above: Result Comment: SPEC IMEN SLIGHTLY HEMOLYZED, RESULTS MAY BE ADVERSELY AFFECTED. Performed By: #### B MP #### [facility] [address] [place] [address] Telephone Clerk Telegraph Office: Con Oseguera MD PTon 12-10-2018 INR Coag (PPP) [Relative time] 1.3 {INR} Normal [facility] Comment on above: Result Comment: Non-therapeutic Range: INR = 0.9-1.2 Therapeutic Range: Moderate Anticoagulant Intensity: INR = 2.0-3.0 High Anticoagulant Intensity: INR = 2.5-3.5 Performed By: #### P T, CDP ####[facility] [id number] [place] [address] Lab Director: Con Oseguera MD PT Coag (PPP) [Time] 16.5 s High 11.8-14.6 [facility] Comment on above: Performed By: #### P T, CDP ####[facility] [id number] [place] [address] Lab Director: Con Oseguera MD Specimen Rejectionon 019 Reason for rejection Unable to perform testing: Specimen clotted. Normal [facility] Comment on above: Performed By: #### B MP #### [facility] [address] [place] [address] Telephone Clerk Telegraph Office: Con Oseguera MD Source of sample .BLOOD Normal [facility] Comment on above: Performed By: #### B MP #### [facility] [address] [place] [address] Telephone Clerk Telegraph Office: Con Oseguera MD Test ordered CDP Normal [facility] Comment on above: Performed By: #### B MP #### [facility] [address] [facility] [place] [address] Telephone Clerk Telegraph Office: Con Oseguera MD ----- NOT REPORTED Normal [facility] Comment on above: Performed By: #### B MP #### [facility] [address] [facility] [place] [address] Telephone Clerk Telegraph Office: Con Oseguera MD Troponinon 12-10-2018 Troponin I.cardiac [Mass/Vol] 28 ng/L High 0-22 [facility] Comment on above: Result Comment: High Sensitivity Troponin values cannot be compared with other Troponin methodologies. Patients with high levels of Biotin oral intake (i.e >5mg/day) may have falsely decreased Troponin levels. Samples collected within 8 hours of biotin intake may require additional information for diagnosis. Performed By: #### T ROPI ####[facility] [id number] [facility], [place] [phone] Director: Con Oseguera MD Troponin I.cardiac [Mass/Vol] NOT REPORTED Normal [facility] Comment on above: Performed By: #### T ROPI ####[facility] [id number] [facility] [place] [address] Lab Director: Con Oseguera MD Troponin I.cardiac [Mass/Vol] 30 ng/L High 0-22 [facility] Comment on above: Result Comment: High [...] R EJEC, LIP, TROPI, CP, DIGC, BNP ####[facility] [id number] [facility] [place] [address] Lab Director: Con Oseguera MD Troponin I.cardiac [Mass/Vol] NOT REPORTED Normal [facility] Comment on above: Performed By: #### R EJEC, LIP, TROPI, CP, DIGC, BNP ####[facility] [id number] [facility] [address] Lab Director: Con Oseguera MD Urinalysis, Routineon 2018 Acetoacetic Acid,Ur Negative Normal NEG [facility] Comment on above: Performed By: #### U A ####[facility] [id number] [facility], [place] [phone] Director: Con Oseguera MD Bilirubin, SemiQt,Ur Negative Normal NEG [facility] Comment on above: Performed By: #### U A ####[facility] [id number] [facility], [place] [phone] Director: Con Oseguera MD Color (U) YELLOW Normal YEL [facility] Comment on above: Performed By: #### U A ####[facility] [id number] [facility] [place] [address] Lab Director: Con Oseguera MD Comment Microscopic exam not performed based on chemical results unless requested in Normal [facility] Comment on above: Result Comment: orig inal order. Performed By: #### U A ####[facility] [id number] [place] [address] Lab Director: Con Oseguera MD Glucose Ql (U) Negative Normal NEG [facility] Comment on above: Performed By: #### U A ####[facility] [address] [place] [address] Lab Director: Con Oseguera MD Hemoglobin, Ur Negative Normal NEG [facility] Comment on above: Performed By: #### U A ####[facility] [address] [place] [address] Lab Director: Con Oseguera MD Leukocyte esterase Test strip Ql (U) Negative Normal NEG [facility] Comment on above: Performed By: #### U A ####[facility] [id number] [place] [address] Lab Director: Con Oseguera MD Nitrite,Ur Negative Normal NEG [facility] Comment on above: Performed By: #### U A ####[facility] [id number] [facility] [place] [address] [facility] Director: Con Oseguera MD pH (U) 5.0 [pH] Normal 5.0-8.0 [facility] Comment on above: Performed By: #### U A ####[facility] [id number] [facility], [place] [phone] Director: Con Oseguera MD Protein Ql (U) Negative Normal NEG [facility] Comment on above: Performed By: #### U A ####[facility] [id number] [place] [address] [facility] Director: Con Oseguera MD Specific gravity (U) [Rel density] 1.013 Normal 1.000-1.030 [facility] Comment on above: Performed By: #### U A ####[facility] [id number] [facility] [place] [address] Lab Director: Con Oseguera MD Turbidity CLEAR Normal CLEAR [facility] Comment on above: Performed By: #### U A ####[facility] [address] [place] [address] Lab Director: Con Oseguera MD Urobilinogen,Ur Normal Normal NORM [facility] Comment on above: Performed By: #### U A ####[facility] [address] [facility] [place] [address] Lab Director: Con Oseguera MD XR CHEST (2 [...] Hawk Sawyer Jr., DO Signed by: Hawk Swayer Jr., DO 12/10/18 Final result Normal [facility] Basic Metabolic Profon 11-03 (cont.) Normal [facility] Comment on above: Result Comment: Aver age GFR for 70 or more years old: 75 mL/min/1.73sq m Chronic Kidney Disease: <60 mL/min/1.73sq m Kidney failure: <15 mL/min/1.73sq m eGFR calculated using average adult body mass. Additional eGFR calculator available at: http://www.Voltea.P[employer] Battery/multiple_crcl_2012.htm Performed By: #### B MP #### [facility] [address] [facility] [place], [place] [id number] Telephone Clerk Telegraph Office: Con Oseguera MD Anion gap [Moles/Vol] 15 mmol/L Normal 9-17 [facility] Comment on above: Performed By: #### B MP #### [facility] [address] [facility] [place], [place] [phone] Telephone Clerk Telegraph Office: Con Oseguera MD Calcium [Mass/Vol] 8.9 mg/dL Normal 8.6-10.4 [facility] Comment on above: Performed By: #### B MP #### [facility]. [place], [place] [phone] Telephone Clerk Telegraph Office: Con Oseguera MD Chloride [Moles/Vol] 100 mmol/L Normal 98-107 [facility] Comment on above: Performed By: #### B MP #### [facility] [address] [place] [address] Telephone Clerk Telegraph Office: Con Oseguera MD CO2 [Moles/Vol] 21 mmol/L Normal 20-31 [facility] Comment on above: Performed By: #### B MP #### [facility] [address] [place] [address] Telephone Clerk Telegraph Office: Con Oseguera MD Creatinine [Mass/Vol] 1.17 mg/dL Normal 0.70-1.20 [facility] Comment on above: Performed By: #### B MP #### [facility] [address] [place] [address] Telephone Clerk Telegraph Office: Con Oseguera MD GFR, Amer >60 Normal >60 [facility] Comment on above: Performed By: #### B MP #### [facility] [address] [place] [address] Telephone Clerk Telegraph Office: Con Oseguera MD GFR,non Amer 60 mL/min Low >60 [facility] Comment on above: Performed By: #### B MP #### [facility] [address] [place] [address] Telephone Clerk Telegraph Office: Con Oseguera MD Glucose [Mass/Vol] 231 mg/dL High 70-99 [facility] Comment on above: Performed By: #### B MP #### [facility] [address] [place] [address] Telephone Clerk Telegraph Office: Con Oseguera MD Potassium [Moles/Vol] 4.0 mmol/L Normal 3.7-5.3 [facility] Comment on above: Performed By: #### B MP #### [facility] [address] [place] [address] Telephone Clerk Telegraph Office: Con Oseguera MD Sodium [Moles/Vol] 136 mmol/L Normal 135-144 [facility] Comment on above: Performed By: #### B MP #### [facility] [address] [place] [address] Telephone Clerk Telegraph Office: Con Oseguera MD Urea nitrogen [Mass/Vol] 27 mg/dL High 8- [facility] Comment on above: Performed By: #### B MP #### [facility] [address] [place] [address] Telephone Clerk Telegraph Office: Con Oseguera MD BUN/CRE Ratio NOT REPORTED Normal - [facility] Comment on above: Performed By: #### B MP #### [facility] [address] [place] [address] Telephone Clerk Telegraph Office: Con Oseguera MD Staging: NOT REPORTED Normal [facility] Comment on above: Performed By: #### B MP #### [facility] [address] [place] [address] Telephone Clerk Telegraph Office: Con Oseguera MD T3, Freeon 11-03-2018 Free T3 [Mass/Vol] 2.64 pg/mL Normal 2.02-4.43 [facility] Comment on above: Performed By: #### B MP #### [facility] [place] [address] Telephone Clerk Telegraph Office: Con Oseguera MD Thyroid Stim. Horm.on 2018 TSH Qn 5.66 m[IU]/L High 0.30-5.00 [facility] Comment on above: Performed By: #### B MP #### [facility] [address] [place] [address] Telephone Clerk Telegraph Office: Con Oseguera MD Thyroxine, Freeon 11-03-2018 Thyroxine, Free 0.92 ng/dL Low 0.93-1.70 [facility] Comment on above: Performed By: #### B MP #### [facility] [address] [place] [address] Telephone Clerk Telegraph Office: Con Oseguera MD Basic Metabolic Profon 10-23 (cont.) Normal [facility] Comment on above: Result Comment: Aver age GFR for 70 or more years old: 75 mL/min/1.73sq m Chronic Kidney Disease: <60 mL/min/1.73sq m Kidney failure: <15 mL/min/1.73sq m eGFR calculated using average adult body mass. Additional eGFR calculator available at: http://www.Trun[employer]Show/multiple_crcl_2012.htm Performed By: #### B MP #### [facility] [address] [place] [address] Telephone Clerk Telegraph Office: Con Oseguera MD Anion gap [Moles/Vol] 14 mmol/L Normal 9-17 [facility] Comment on above: Performed By: #### B MP #### [facility] [address] [place] [address] Telephone Clerk Telegraph Office: Con Oseguera MD Calcium [Mass/Vol] 9.3 mg/dL Normal 8.6-10.4 [facility] Comment on above: Performed By: #### B MP #### [facility] [address] [place] [address] Telephone Clerk Telegraph Office: Con Oseguera MD Chloride [Moles/Vol] 100 mmol/L Normal 98-107 [facility] Comment on above: Performed By: #### B MP #### [facility] [address] [place] [address] Telephone Clerk Telegraph Office: Con Oseguera MD CO2 [Moles/Vol] 22 mmol/L Normal 20-31 [facility] Comment on above: Performed By: #### B MP #### [facility] [address] [place] [address] Telephone Clerk Telegraph Office: Con Oseguera MD Creatinine [Mass/Vol] 2.03 mg/dL High 0.70-1.20 [facility] Comment on above: Performed By: #### B MP #### [facility] [address] [place] [address] Telephone Clerk Telegraph Office: Con Oseguera MD GFR, Amer 38 mL/min Low >60 [facility] Comment on above: Performed By: #### B MP #### [facility] [address] [place] [address] Telephone Clerk Telegraph Office: Con Oseguera MD GFR,non Amer 32 mL/min Low >60 [facility] Comment on above: Performed By: #### B MP #### [facility] [address] [place] [address] Telephone Clerk Telegraph Office: Con Oseguera MD Glucose [Mass/Vol] 286 mg/dL High 70-99 [facility] Comment on above: Performed By: #### B MP #### [facility] [address] [place] [address] Telephone Clerk Telegraph Office: Con Oseguera MD Potassium [Moles/Vol] 5.2 mmol/L Normal 3.7-5.3 [facility] Comment on above: Performed By: #### B MP #### [facility] [address] [place] [address] Telephone Clerk Telegraph Office: Con Oseguera MD Sodium [Moles/Vol] 136 mmol/L Normal 135-144 [facility] Comment on above: Performed By: #### B MP #### [facility] [address] [place] [address] Telephone Clerk Telegraph Office: Con Oseguera MD Urea nitrogen [Mass/Vol] 51 mg/dL High 8-23 [facility] Comment on above: Performed By: #### B MP #### [facility] [address] [place] [address] Telephone Clerk Telegraph Office: Con Oseguera MD BUN/CRE Ratio NOT REPORTED Normal 03-16 [facility] Comment on above: Performed By: #### B MP #### [facility] [address] [facility] [place] [address] Telephone Clerk Telegraph Office: Con Oseguera MD Staging: NOT REPORTED Normal [facility] Comment on above: Performed By: #### B MP #### [facility] [place] [address] Telephone Clerk Telegraph Office: Con Oseguera MD CBC with Diffon 10-23-2018 Abs. Basophil 0.09 k/uL Normal 0.0-0.2 [facility] Comment on above: Performed By: #### B MP #### [facility] [place] [address] Telephone Clerk Telegraph Office: Con Oseguera MD Abs.Neutrophil (Seg) 6.45 k/uL Normal 1.3-9.1 [facility] Comment on above: Performed By: #### B MP #### [facility] [place] [address] Telephone Clerk Telegraph Office: Con Oseguera MD Basophils/100 WBC (Bld) 1 % Normal 0-2 [facility] Comment on above: Performed By: #### B MP #### [facility] [place] [address] Telephone Clerk Telegraph Office: Con Oseguera MD Eosinophils (Bld) [#/Vol] 0.17 10*3/uL Normal 0.0-0.4 [facility] Comment on above: Performed By: #### B MP #### [facility] [place] [address] Telephone Clerk Telegraph Office: Con Oseguera MD Eosinophils/100 WBC (Bld) 2 % Normal 0-4 [facility] Comment on above: Performed By: #### B MP #### [facility] [address] [place] [address] Telephone Clerk Telegraph Office: Con Oseguera MD Lymphocytes (Bld) [#/Vol] 1.19 10*3/uL Normal 1.0-4.8 [facility] Comment on above: Performed By: #### B MP #### [facility] [address] [place] [address] Telephone Clerk Telegraph Office: Con Oseguera MD Lymphocytes/100 WBC (Bld) 14 % Low 24-44 [facility] Comment on above: Performed By: #### B MP #### [facility] [address] [place] [address] Telephone Clerk Telegraph Office: Con Oseguera MD Monocytes (Bld) [#/Vol] 0.60 10*3/uL Normal 0.1-1.3 [facility] Comment on above: Performed By: #### B MP #### [facility] [address] [place] [address] Telephone Clerk Telegraph Office: Con Oseguera MD Monocytes/100 WBC (Bld) 7 % Normal 1-7 [facility] Comment on above: Performed By: #### B MP #### [facility] [address] [place] [address] Telephone Clerk Telegraph Office: Con Oseguera MD Morphology Theo (Bld) [Interp] ANISOCYTOSIS PRESENT Normal [facility] Comment on above: Result Comment: HYPO CHROMIA PRESENT MICROCYTOSIS PRESENT 1+ ELLIPTOCYTES 1+ ECHINOCYTES Performed By: #### B MP #### [facility] [address] [place] [address] Telephone Clerk Telegraph Office: Con Oseguera MD Neutrophil (Seg) 76 % High 36-66 [facility] Comment on above: Performed By: #### B MP #### [facility] [place] [address] Telephone Clerk Telegraph Office: Con Oseguera MD Erythrocyte distribution width (RBC) [Ratio] 21.6 % High 11.5-14.9 [facility] Comment on above: Performed By: #### B MP #### [facility] [place] [address] Telephone Clerk Telegraph Office: Con Oseguera MD Hematocrit (Bld) [Volume fraction] 27.3 % Low 41-53 [facility] Comment on above: Performed By: #### B MP #### [facility] [address] [place] [address] Telephone Clerk Telegraph Office: Con Oseguera MD Hemoglobin (Bld) [Mass/Vol] 8.5 g/dL Low 13.5-17.5 [facility] Comment on above: Performed By: #### B MP #### [facility] [address] [place] [address] Telephone Clerk Telegraph Office: Con Oseguera MD MCH (RBC) [Entitic mass] 21.1 pg Low 26-34 [facility] Comment on above: Performed By: #### B MP #### [facility] [address] [place] [address] Telephone Clerk Telegraph Office: Con Oseguera MD MCHC (RBC) [Mass/Vol] 30.9 g/dL Low 31-37 [facility] Comment on above: Performed By: #### B MP #### [facility] [address] [place] [address] Telephone Clerk Telegraph Office: Con Oseguera MD MCV (RBC) [Entitic vol] 68.3 fL Low 80-100 [facility] Comment on above: Performed By: #### B MP #### [facility] [place] [address] Telephone Clerk Telegraph Office: Con Oseguera MD Platelet mean volume (Bld) [Entitic vol] 9.5 fL Normal 6.0-12.0 [facility] Comment on above: Performed By: #### B MP #### [facility] [place] [address] Telephone Clerk Telegraph Office: Con Oseguera MD Platelets (Bld) [#/Vol] 300 10*3/uL Normal 150-450 [facility] Comment on above: Performed By: #### B MP #### [facility] [address] [place] [address] Telephone Clerk Telegraph Office: Con Oseguera MD RBC (Bld) [#/Vol] 4.00 10*6/uL Low 4.5-5.9 [facility] Comment on above: Performed By: #### B MP #### [facility] [place] [address] Telephone Clerk Telegraph Office: Con Oseguera MD WBC (Bld) [#/Vol] 8.5 10*3/uL Normal 3.5-11.0 [facility] Comment on above: Performed By: #### B MP #### [facility] [place] [address] Telephone Clerk Telegraph Office: Con Oseguera MD Abs.Imm.Granulocyte NOT REPORTED Normal 0.00-0.30 [facility] Comment on above: Performed By: #### B MP #### [facility] [place] [address] Telephone Clerk Telegraph Office: Con Oseguera MD Auto Diff Performed NOT REPORTED Normal [facility] Comment on above: Performed By: #### B MP #### [facility] [address] [facility] [place] [address] Telephone Clerk Telegraph Office: Con Oseguera MD Immature granulocytes (Bld) [#/Vol] NOT REPORTED Normal 0 [facility] Comment on above: Performed By: #### B MP #### [facility] [address] [facility] [place] [address] Telephone Clerk Telegraph Office: Con Oseguera MD NRBC Automated NOT REPORTED Normal [facility] Comment on above: Performed By: #### B MP #### [facility] [address] [facility] [place] [address] Telephone Clerk Telegraph Office: Con Oseguera MD Platelets (Bld) [#/Vol] NOT REPORTED Normal [facility] Comment on above: Performed By: #### B MP #### [facility] [address] [facility] [place] [address] Telephone Clerk Telegraph Office: Con Oseguera MD RBC morphology finding Nom (Bld) NOT REPORTED Normal [facility] Comment on above: Performed By: #### B MP #### [facility] [address] [facility] [place] [address] Telephone Clerk Telegraph Office: Con Oseguera MD WBC Morphology NOT REPORTED Normal [facility] Comment on above: Performed By: #### B MP #### [facility] [place] [address] Telephone Clerk Telegraph Office: Con Oseguera MD Comp Metabolic Profon 2018 (cont.) Normal [facility] Comment on above: Result Comment: Aver age GFR for 70 or more years old: 75 mL/min/1.73sq m Chronic Kidney Disease: <60 mL/min/1.73sq m Kidney failure: <15 mL/min/1.73sq m eGFR calculated using average adult body mass. Additional eGFR calculator available at: http://www.Voltea.Prieto Battery/multiple_crcl_2011.htm Performed By: #### C P, MG, CB, CDP #### [facility] [address] [place] [address] Telephone Clerk Telegraph Office: Con Oseguera MD Albumin [Mass/Vol] 3.9 g/dL Normal 3.5-5.2 [facility] Comment on above: Performed By: #### C P, MG, CB, CDP #### [facility] [address] [place] [address] Telephone Clerk Telegraph Office: Con Oseguera MD Alkaline Phos 90 U/L Normal 40-129 [facility] Comment on above: Performed By: #### C P, MG, CB, CDP #### [facility] [address] [place] [address] Telephone Clerk Telegraph Office: Con Oseguera MD ALT [Catalytic activity/Vol] 18 U/L Normal 5-41 [facility] Comment on above: Performed By: #### C P, MG, CB, CDP #### [facility] [address] [place] [address] Telephone Clerk Telegraph Office: Con Oseguera MD Anion gap [Moles/Vol] 14 mmol/L Normal 9-17 [facility] Comment on above: Performed By: #### C P, MG, CB, CDP #### [facility] [facility] [facility] [place] [address] Telephone Clerk Telegraph Office: Con Oseguera MD AST [Catalytic activity/Vol] 21 U/L Normal <40 [facility] Comment on above: Performed By: #### C P, MG, CB, CDP #### [facility] [address] [facility] [place] [address] Telephone Clerk Telegraph Office: Con Oseguera MD Bilirubin Ql (U) 0.34 mg/dL Normal 0.3-1.2 [facility] Comment on above: Performed By: #### C P, MG, CB, CDP #### [facility] [address] [place] [address] Telephone Clerk Telegraph Office: Con Oseguera MD Calcium [Mass/Vol] 9.3 mg/dL Normal 8.6-10.4 [facility] Comment on above: Performed By: #### C P, MG, CB, CDP #### [facility] [address] [place] [address] Telephone Clerk Telegraph Office: Con Oseguera MD Chloride [Moles/Vol] 100 mmol/L Normal 98-107 [facility] Comment on above: Performed By: #### C P, MG, CB, CDP #### [facility] [address] [place] [address] Telephone Clerk Telegraph Office: Con Oseguera MD CO2 [Moles/Vol] 22 mmol/L Normal 20-31 [facility] Comment on above: Performed By: #### C P, MG, CB, CDP #### [facility] [address] [place] [address] Telephone Clerk Telegraph Office: Con Oseguera MD Creatinine [Mass/Vol] 2.03 mg/dL High 0.70-1.20 [facility] Comment on above: Performed By: #### C P, MG, CB, CDP #### [facility] [address] [place] [address] Telephone Clerk Telegraph Office: Con Oseguera MD GFR, Amer 38 mL/min Low >60 [facility] Comment on above: Performed By: #### C P, MG, CB, CDP #### [facility] [address] [place] [address] Telephone Clerk Telegraph Office: Con Oseguera MD GFR,non Amer 32 mL/min Low >60 [facility] Comment on above: Performed By: #### C P, MG, CB, CDP #### [facility] [address] [place] [address] Telephone Clerk Telegraph Office: Con Oseguera MD Glucose [Mass/Vol] 286 mg/dL High 70-99 [facility] Comment on above: Performed By: #### C P, MG, CB, CDP #### [facility] [address] [place] [address] Telephone Clerk Telegraph Office: Con Oseguera MD Potassium [Moles/Vol] 5.2 mmol/L Normal 3.7-5.3 [facility] Comment on above: Performed By: #### C P, MG, CB, CDP #### [facility] [address] [place] [address] Telephone Clerk Telegraph Office: Con Oseguera MD Protein [Mass/Vol] 6.6 g/dL Normal 6.4-8.3 [facility] Comment on above: Performed By: #### C P, MG, CB, CDP #### [facility] [address] [place] [address] Telephone Clerk Telegraph Office: Con Oseguera MD Sodium [Moles/Vol] 136 mmol/L Normal 135-144 [facility] Comment on above: Performed By: #### C P, MG, CB, CDP #### [facility] [place] [address] Telephone Clerk Telegraph Office: Con Oseguera MD Urea nitrogen [Mass/Vol] 51 mg/dL High 8-23 [facility] Comment on above: Performed By: #### C P, MG, CB, CDP #### [facility] [address] [facility] [address] Telephone Clerk Telegraph Office: Con Oseguera MD Albumin/Globulin [Mass ratio] NOT REPORTED Normal 1.0-2.5 [facility] Comment on above: Performed By: #### C P, MG, CB, CDP #### [facility] [address] [place] [address] Telephone Clerk Telegraph Office: Con Oseguera MD BUN/CRE Ratio NOT REPORTED Normal 9-20 [facility] Comment on above: Performed By: #### C P, MG, CB, CDP #### [facility] [address] [place] [address] Telephone Clerk Telegraph Office: Con Oseguera MD Staging: NOT REPORTED Normal [facility] Comment on above: Performed By: #### C P, MG, CB, CDP #### [facility] [address] [place] [address] Telephone Clerk Telegraph Office: Con Oseguera MD Magnesiumon 10-23-2018 Magnesium [Mass/Vol] 2.3 mg/dL Normal 1.6-2.6 [facility] Comment on above: Performed By: #### B MP #### [facility] [address] [facility] [place] [address] Telephone Clerk Telegraph Office: Con Oseguera MD Phosphorus, Inorg.on 019 Phosphorus, Inorg. 4.8 mg/dL High 2.5-4.5 [facility] Comment on above: Performed By: #### B MP #### [facility] [address] [facility] [place] [address] Telephone Clerk Telegraph Office: Con Oseguera MD Basic Metabolic Profon 10-12 (cont.) Normal [facility] Comment on above: Result Comment: Aver age GFR for 70 or more years old: 75 mL/min/1.73sq m Chronic Kidney Disease: <60 mL/min/1.73sq m Kidney failure: <15 mL/min/1.73sq m eGFR calculated using average adult body mass. Additional eGFR calculator available at: http://www.Voltea.Prieto Battery/multiple_crcl_2012.htm Performed By: #### B MP #### [facility] [address] [place] [place] [address] Telephone Clerk Telegraph Office: Con Oseguera MD Anion gap [Moles/Vol] 14 mmol/L Normal 9-17 [facility] Comment on above: Performed By: #### B MP #### [facility] [address] [place] [address] Telephone Clerk Telegraph Office: Con Oseguera MD Calcium [Mass/Vol] 9.6 mg/dL Normal 8.6-10.4 [facility] Comment on above: Performed By: #### B MP #### [facility] [address] [place] [address] Telephone Clerk Telegraph Office: Con Oseguera MD Chloride [Moles/Vol] 103 mmol/L Normal 98-107 [facility] Comment on above: Performed By: #### B MP #### [facility] [address] [place] [address] Telephone Clerk Telegraph Office: Con Oseguera MD CO2 [Moles/Vol] 21 mmol/L Normal 20-31 [facility] Comment on above: Performed By: #### B MP #### [facility] [address] [place] [address] Telephone Clerk Telegraph Office: Con Oseguera MD Creatinine [Mass/Vol] 1.52 mg/dL High 0.70-1.20 [facility] Comment on above: Performed By: #### B MP #### [facility] [address] [place] [address] Telephone Clerk Telegraph Office: Con Oseguera MD GFR, Amer 54 mL/min Low >60 [facility] Comment on above: Performed By: #### B MP #### [facility] [address] [place] [address] Telephone Clerk Telegraph Office: Con Oseguera MD GFR,non Amer 44 mL/min Low >60 [facility] Comment on above: Performed By: #### B MP #### [facility] [address] [place] [address] Telephone Clerk Telegraph Office: Con Oseguera MD Glucose [Mass/Vol] 219 mg/dL High 70-99 [facility] Comment on above: Performed By: #### B MP #### [facility] [address] [place] [address] Telephone Clerk Telegraph Office: Con Oseguera MD Potassium [Moles/Vol] 4.8 mmol/L Normal 3.7-5.3 [facility] Comment on above: Performed By: #### B MP #### [facility] [address] [place] [address] Telephone Clerk Telegraph Office: Con Oseguera MD Sodium [Moles/Vol] 138 mmol/L Normal 135-144 [facility] Comment on above: Performed By: #### B MP #### [facility] [address] [place] [address] Telephone Clerk Telegraph Office: Con Oseguera MD Urea nitrogen [Mass/Vol] 48 mg/dL High 8-23 [facility] Comment on above: Performed By: #### B MP #### [facility] [address] [place] [address] Telephone Clerk Telegraph Office: Con Oseguera MD BUN/CRE Ratio NOT REPORTED Normal 9-20 [facility] Comment on above: Performed By: #### B MP #### [facility] [address] [place] [address] Telephone Clerk Telegraph Office: Con Oseguera MD Staging: NOT REPORTED Normal [facility] Comment on above: Performed By: #### B MP #### [facility] [address] [place] [address] Telephone Clerk Telegraph Office: Con Oseguera MD Basic Metabolic Profon 09-28 (cont.) Normal [facility] Comment on above: Result Comment: Aver age GFR for 70 or more years old: 75 mL/min/1.73sq m Chronic Kidney Disease: <60 mL/min/1.73sq m Kidney failure: <15 mL/min/1.73sq m eGFR calculated using average adult body mass. Additional eGFR calculator available at: http://www.TrunqShow/multiple_crcl_2012.htm Performed By: #### B MP #### [facility] [address] [place] [address] Telephone Clerk Telegraph Office: Con Oseguera MD Anion gap [Moles/Vol] 13 mmol/L Normal 9-17 [facility] Comment on above: Performed By: #### B MP #### [facility] [address] [place] [address] Telephone Clerk Telegraph Office: Con Oseguera MD Calcium [Mass/Vol] 9.2 mg/dL Normal 8.6-10.4 [facility] Comment on above: Performed By: #### B MP #### [facility] [address] [place] [address] Telephone Clerk Telegraph Office: Con Oseguera MD Chloride [Moles/Vol] 100 mmol/L Normal 98-107 [facility] Comment on above: Performed By: #### B MP #### [facility] [address] [place] [address] Telephone Clerk Telegraph Office: Con Oseguera MD CO2 [Moles/Vol] 24 mmol/L Normal 20-31 [facility] Comment on above: Performed By: #### B MP #### [facility] [address] [place] [address] Telephone Clerk Telegraph Office: Con Oseguera MD Creatinine [Mass/Vol] 1.46 mg/dL High 0.70-1.20 [facility] Comment on above: Performed By: #### B MP #### [facility] [address] [place] [address] Telephone Clerk Telegraph Office: Con Oseguera MD GFR, Amer 56 mL/min Low >60 [facility] Comment on above: Performed By: #### B MP #### [facility] [address] [place] [address] Telephone Clerk Telegraph Office: Con Oseguera MD GFR,non Amer 46 mL/min Low >60 [facility] Comment on above: Performed By: #### B MP #### [facility] [address] [place] [address] Telephone Clerk Telegraph Office: Con Oseguera MD Glucose [Mass/Vol] 269 mg/dL High 70-99 [facility] Comment on above: Performed By: #### B MP #### [facility] [address] [place] [address] Telephone Clerk Telegraph Office: Con Oseguera MD Potassium [Moles/Vol] 4.7 mmol/L Normal 3.7-5.3 [facility] Comment on above: Performed By: #### B MP #### [facility] [address] [place] [address] Telephone Clerk Telegraph Office: Con Oseguera MD Sodium [Moles/Vol] 137 mmol/L Normal 135-144 [facility] Comment on above: Performed By: #### B MP #### [facility] [address] [place] [address] Telephone Clerk Telegraph Office: Con Oseguera MD Urea nitrogen [Mass/Vol] 41 mg/dL High 8-23 [facility] Comment on above: Performed By: #### B MP #### [facility] [address] [place] [address] Telephone Clerk Telegraph Office: Con Oseguera MD BUN/CRE Ratio NOT REPORTED Normal 9-20 [facility] Comment on above: Performed By: #### B MP #### [facility] [address] [place] [address] Telephone Clerk Telegraph Office: Con Oseguera MD Staging: NOT REPORTED Normal [facility] Comment on above: Performed By: #### B MP #### [facility] [address] [facility] [address] Telephone Clerk Telegraph Office: Con Oseguera MD Basic Metabolic Profon 09-20 (cont.) Normal [facility] Comment on above: Result Comment: Aver age GFR for 70 or more years old: 75 mL/min/1.73sq m Chronic Kidney Disease: <60 mL/min/1.73sq m Kidney failure: <15 mL/min/1.73sq m eGFR calculated using average adult body mass. Additional eGFR calculator available at: http://www.TrunqShow/multiple_crcl_2012.htm Performed By: #### H H, BMP #### [facility] [address] [facility] [place] [address] Telephone Clerk Telegraph Office: Con Oseguera MD Anion gap [Moles/Vol] 14 mmol/L Normal -17 [facility] Comment on above: Performed By: #### H H, BMP #### [facility] [address] [facility] [place] [address] Telephone Clerk Telegraph Office: Con Oseguera MD Calcium [Mass/Vol] 9.1 mg/dL Normal 8.6-10.4 [facility] Comment on above: Performed By: #### H H, BMP #### [facility] [address] [facility] [place] [address] Telephone Clerk Telegraph Office: Con Oseguera MD Chloride [Moles/Vol] 98 mmol/L Normal 98-107 [facility] Comment on above: Performed By: #### H H, BMP #### [facility] [address] [place] [address] Telephone Clerk Telegraph Office: Con Oseguera MD CO2 [Moles/Vol] 24 mmol/L Normal 20-31 [facility] Comment on above: Performed By: #### H H, BMP #### [facility] [address] [place] [address] Telephone Clerk Telegraph Office: Con Oseguera MD Creatinine [Mass/Vol] 1.48 mg/dL High 0.70-1.20 [facility] Comment on above: Performed By: #### H H, BMP #### [facility] [address] [place] [address] Telephone Clerk Telegraph Office: Con Oseguera MD GFR, Amer 55 mL/min Low >60 [facility] Comment on above: Performed By: #### H H, BMP #### [facility] [address] [place] [address] Telephone Clerk Telegraph Office: Con Oseguera MD GFR,non Amer 46 mL/min Low >60 [facility] Comment on above: Performed By: #### H H, BMP #### [facility] [address] [place] [address] Telephone Clerk Telegraph Office: Con Oseguera MD Glucose [Mass/Vol] 168 mg/dL High 70-99 [facility] Comment on above: Performed By: #### H H, BMP #### [facility] [address] [place] [address] Telephone Clerk Telegraph Office: Con Oseguera MD Potassium [Moles/Vol] 4.6 mmol/L Normal 3.7-5.3 [facility] Comment on above: Performed By: #### H H, BMP #### [facility] [address] [place] [address] Telephone Clerk Telegraph Office: Con Oseguera MD Sodium [Moles/Vol] 136 mmol/L Normal 135-144 [facility] Comment on above: Performed By: #### H H, BMP #### [facility] [address] [place] [address] Telephone Clerk Telegraph Office: Con Oseguera MD Urea nitrogen [Mass/Vol] 34 mg/dL High 8- [facility] Comment on above: Performed By: #### H H, BMP #### [facility] [address] [place] [address] Telephone Clerk Telegraph Office: Con Oseguera MD BUN/CRE Ratio NOT REPORTED Normal - [facility] Comment on above: Performed By: #### H H, BMP #### [facility] [address] [place] [address] Telephone Clerk Telegraph Office: Con Oseguera MD Staging: NOT REPORTED Normal [facility] Comment on above: Performed By: #### H H, BMP #### [facility] [address] [place] [address] Telephone Clerk Telegraph Office: Con Oseguera MD Hgb/Hcton 09-20-2018 Hematocrit (Bld) [Volume fraction] 26.8 % Low 41-53 [facility] Comment on above: Performed By: #### H H, BMP #### [facility] [place] [address] Telephone Clerk Telegraph Office: Con Oseguera MD Hemoglobin (Bld) [Mass/Vol] 8.3 g/dL Low 13.5-17.5 [facility] Comment on above: Performed By: #### H H, BMP #### [facility] [address] [place] [address] Telephone Clerk Telegraph Office: Con Oseguera MD Basic Metabolic Profon 09-07 (cont.) Normal [facility] Comment on above: Result Comment: Aver age GFR for 70 or more years old: 75 mL/min/1.73sq m Chronic Kidney Disease: <60 mL/min/1.73sq m Kidney failure: <15 mL/min/1.73sq m eGFR calculated using average adult body mass. Additional eGFR calculator available at: http://www.Voltea.Prieto Battery/multiple_crcl_2012.htm Performed By: #### B MP #### [facility] [address] [place] [address] Telephone Clerk Telegraph Office: Con Oseguera MD Anion gap [Moles/Vol] 10 mmol/L Normal 9-17 [facility] Comment on above: Performed By: #### B MP #### [facility] [place] [address] Telephone Clerk Telegraph Office: Con Oseguera MD Calcium [Mass/Vol] 9.1 mg/dL Normal 8.6-10.4 [facility] Comment on above: Performed By: #### B MP #### [facility] [address] [place] [address] Telephone Clerk Telegraph Office: Con Oseguera MD Chloride [Moles/Vol] 103 mmol/L Normal 98-107 [facility] Comment on above: Performed By: #### B MP #### [facility] [place] [address] Telephone Clerk Telegraph Office: Con Oseguera MD CO2 [Moles/Vol] 25 mmol/L Normal 20-31 [facility] Comment on above: Performed By: #### B MP #### [facility] [place] [address] Telephone Clerk Telegraph Office: Con Oseguera MD Creatinine [Mass/Vol] 1.25 mg/dL High 0.70-1.20 [facility] Comment on above: Performed By: #### B MP #### [facility] [place] [address] Telephone Clerk Telegraph Office: Con Oseguera MD GFR, Amer >60 Normal >60 [facility] Comment on above: Performed By: #### B MP #### [facility] [address] [place] [address] Telephone Clerk Telegraph Office: Con Oseguera MD GFR,non Amer 55 mL/min Low >60 [facility] Comment on above: Performed By: #### B MP #### [facility] [address] [place] [address] Telephone Clerk Telegraph Office: Con Oseguera MD Glucose [Mass/Vol] 123 mg/dL High 70-99 [facility] Comment on above: Performed By: #### B MP #### [facility] [address] [facility] [address] Telephone Clerk Telegraph Office: Con Oseguera MD Potassium [Moles/Vol] 4.7 mmol/L Normal 3.7-5.3 [facility] Comment on above: Performed By: #### B MP #### [facility] [address] [place] [address] Telephone Clerk Telegraph Office: Con Oseguera MD Sodium [Moles/Vol] 138 mmol/L Normal 135-144 [facility] Comment on above: Performed By: #### B MP #### [facility] [address] [place] [address] Telephone Clerk Telegraph Office: Con Oseguera MD Urea nitrogen [Mass/Vol] 28 mg/dL High 8-23 [facility] Comment on above: Performed By: #### B MP #### [facility] [address] [place] [address] Telephone Clerk Telegraph Office: Con Osgeuera MD BUN/CRE Ratio NOT REPORTED Normal 9-20 [facility] Comment on above: Performed By: #### B MP #### [facility] [address] [place] [address] Telephone Clerk Telegraph Office: Con Oseguera MD Staging: NOT REPORTED Normal [facility] Comment on above: Performed By: #### B MP #### [facility] [address] [place] [address] Telephone Clerk Telegraph Office: Con Oseguera MD Basic Metabolic Profon 08-31 (cont.) Normal [facility] Comment on above: Result Comment: Aver age GFR for 70 or more years old: 75 mL/min/1.73sq m Chronic Kidney Disease: <60 mL/min/1.73sq m Kidney failure: <15 mL/min/1.73sq m eGFR calculated using average adult body mass. Additional eGFR calculator available at: http://www.TrunqShow/multiple_crcl_2012.htm Performed By: #### B MP #### [facility] [address] [place] [address] Telephone Clerk Telegraph Office: Con Oseguera MD Anion gap [Moles/Vol] 11 mmol/L Normal 9-17 [facility] Comment on above: Performed By: #### B MP #### [facility] [address] [place] [address] Telephone Clerk Telegraph Office: Con Oseguera MD Calcium [Mass/Vol] 9.4 mg/dL Normal 8.6-10.4 [facility] Comment on above: Performed By: #### B MP #### [facility] [address] [place] [address] Telephone Clerk Telegraph Office: Con Oseguera MD Chloride [Moles/Vol] 100 mmol/L Normal 98-107 [facility] Comment on above: Performed By: #### B MP #### [facility] [address] [place] [address] Telephone Clerk Telegraph Office: Con Oseguera MD CO2 [Moles/Vol] 24 mmol/L Normal 20-31 [facility] Comment on above: Performed By: #### B MP #### [facility] [address] [place] [address] Telephone Clerk Telegraph Office: Con Oseguera MD Creatinine [Mass/Vol] 1.35 mg/dL High 0.70-1.20 [facility] Comment on above: Performed By: #### B MP #### [facility] [address] [place] [address] Telephone Clerk Telegraph Office: Con Oseguera MD GFR, Amer >60 Normal >60 [facility] Comment on above: Performed By: #### B MP #### [facility] [address] [place] [address] Telephone Clerk Telegraph Office: Con Oseguera MD GFR,non Amer 51 mL/min Low >60 [facility] Comment on above: Performed By: #### B MP #### [facility] [address] [place] [address] Telephone Clerk Telegraph Office: Con Oseguera MD Glucose [Mass/Vol] 133 mg/dL High 70-99 [facility] Comment on above: Performed By: #### B MP #### [facility] [address] [place] [address] Telephone Clerk Telegraph Office: Con Oseguera MD Potassium [Moles/Vol] 4.8 mmol/L Normal 3.7-5.3 [facility] Comment on above: Performed By: #### B MP #### [facility] [address] [place] [address] Telephone Clerk Telegraph Office: Con Oseguera MD Sodium [Moles/Vol] 135 mmol/L Normal 135-144 [facility] Comment on above: Performed By: #### B MP #### [facility] [address] [place] [address] Telephone Clerk Telegraph Office: Con Oseguera MD Urea nitrogen [Mass/Vol] 35 mg/dL High 8 [facility] Comment on above: Performed By: #### B MP #### [facility] [address] [place] [address] Telephone Clerk Telegraph Office: Con Oseguera MD BUN/CRE Ratio NOT REPORTED Normal 03-16 [facility] Comment on above: Performed By: #### B MP #### [facility] [address] [place] [address] Telephone Clerk Telegraph Office: Con Oseguera MD Staging: NOT REPORTED Normal [facility] Comment on above: Performed By: #### B MP #### [facility] [address] [place] [address] Telephone Clerk Telegraph Office: Con Oseguera MD XR ABDOMEN (KUB) (SINGLE [...] Crow Wright MD 08/21/18 Final result Normal [facility] Basic Metabolic Profon 08-16 (cont.) Normal [facility] Comment on above: Result Comment: Aver age GFR for 70 or more years old: 75 mL/min/1.73sq m Chronic Kidney Disease: <60 mL/min/1.73sq m Kidney failure: <15 mL/min/1.73sq m eGFR calculated using average adult body mass. Additional eGFR calculator available at: http://www.TrunqShow/multiple_crcl_2012.htm Performed By: #### B MP #### [facility] [address] [place] [address] Telephone Clerk Telegraph Office: Con Oseguera MD Anion gap [Moles/Vol] 11 mmol/L Normal 9-17 [facility] Comment on above: Performed By: #### B MP #### [facility] [address] [place] [address] Telephone Clerk Telegraph Office: Con Oseguera MD Calcium [Mass/Vol] 9.0 mg/dL Normal 8.6-10.4 [facility] Comment on above: Performed By: #### B MP #### [facility] [address] [place] [address] Telephone Clerk Telegraph Office: Con Oseguera MD Chloride [Moles/Vol] 99 mmol/L Normal 98-107 [facility] Comment on above: Performed By: #### B MP #### [facility] [place] [address] Telephone Clerk Telegraph Office: Con Oseguera MD CO2 [Moles/Vol] 26 mmol/L Normal 20-31 [facility] Comment on above: Performed By: #### B MP #### [facility] [place] [address] Telephone Clerk Telegraph Office: Con Oseguera MD Creatinine [Mass/Vol] 1.46 mg/dL High 0.70-1.20 [facility] Comment on above: Performed By: #### B MP #### [facility] [place] [address] Telephone Clerk Telegraph Office: Con Oseguera MD GFR, Amer 56 mL/min Low >60 [facility] Comment on above: Performed By: #### B MP #### [facility] [address] [place] [address] Telephone Clerk Telegraph Office: Con Oseguera MD GFR,non Amer 46 mL/min Low >60 [facility] Comment on above: Performed By: #### B MP #### [facility] [address] [place] [address] Telephone Clerk Telegraph Office: Con Oseguera MD Glucose [Mass/Vol] 160 mg/dL High 70-99 [facility] Comment on above: Performed By: #### B MP #### [facility] [address] [place] [address] Telephone Clerk Telegraph Office: Con Oseguera MD Potassium [Moles/Vol] 4.4 mmol/L Normal 3.7-5.3 [facility] Comment on above: Performed By: #### B MP #### [facility] [address] [place] [address] Telephone Clerk Telegraph Office: Con Oseguera MD Sodium [Moles/Vol] 136 mmol/L Normal 135-144 [facility] Comment on above: Performed By: #### B MP #### [facility] [address] [place] [address] Telephone Clerk Telegraph Office: Con Oseguera MD Urea nitrogen [Mass/Vol] 42 mg/dL High 8-23 [facility] Comment on above: Performed By: #### B MP #### [facility] [address] [place] [address] Telephone Clerk Telegraph Office: Con Oseguera MD BUN/CRE Ratio NOT REPORTED Normal 9-20 [facility] Comment on above: Performed By: #### B MP #### [facility] [address] [place] [address] Telephone Clerk Telegraph Office: Con Oseguera MD Staging: NOT REPORTED Normal [facility] Comment on above: Performed By: #### B MP #### [facility] [address] [place] [address] Telephone Clerk Telegraph Office: Con Oseguera MD CBCon 07-11-2018 Erythrocyte distribution width (RBC) [Ratio] 18.8 % High 11.5-14.9 [facility] Comment on above: Performed By: #### C BC #### [facility] [address] [place] [address] Telephone Clerk Telegraph Office: Con Oseguera MD Hematocrit (Bld) [Volume fraction] 23.1 % Low 41-53 [facility] Comment on above: Performed By: #### C BC #### [facility] [address] [place] [address] Telephone Clerk Telegraph Office: Con Oseguera MD Hemoglobin (Bld) [Mass/Vol] 7.0 g/dL Critically low 13.5-17.5 [facility] Comment on above: Performed By: #### C BC #### [facility] [address] [place] [address] Telephone Clerk Telegraph Office: Con Oseguera MD MCH (RBC) [Entitic mass] 21.3 pg Low 26-34 [facility] Comment on above: Performed By: #### C BC #### [facility] [address] [place] [address] Telephone Clerk Telegraph Office: Con Oseguera MD MCHC (RBC) [Mass/Vol] 30.1 g/dL Low 31-37 [facility] Comment on above: Performed By: #### C BC #### [facility] [address] [place] [address] Telephone Clerk Telegraph Office: Con Oseguera MD MCV (RBC) [Entitic vol] 70.8 fL Low 80-100 [facility] Comment on above: Performed By: #### C BC #### [facility] [address] [place] [address] Telephone Clerk Telegraph Office: Con Oseguera MD Platelet mean volume (Bld) [Entitic vol] 8.8 fL Normal 6.0-12.0 [facility] Comment on above: Performed By: #### C BC #### [facility] [address] [place] [address] Telephone Clerk Telegraph Office: Con Oseguera MD Platelets (Bld) [#/Vol] 484 10*3/uL High 150-450 [facility] Comment on above: Performed By: #### C BC #### [facility] [address] [place] [address] Telephone Clerk Telegraph Office: Con Oseguera MD RBC (Bld) [#/Vol] 3.26 10*6/uL Low 4.5-5.9 [facility] Comment on above: Performed By: #### C BC #### [facility] [address] [place] [address] Telephone Clerk Telegraph Office: Con Oseguera MD WBC (Bld) [#/Vol] 10.6 10*3/uL Normal 3.5-11.0 [facility] Comment on above: Performed By: #### C BC #### [facility] [address] [place] [address] Telephone Clerk Telegraph Office: Con Oseguera MD NRBC Automated NOT REPORTED Normal [facility] Comment on above: Performed By: #### C BC #### [facility] [address] [place] [address] Telephone Clerk Telegraph Office: Con Oseguera MD Vital Signs Date Time Vital Sign Value Performing Clinician Megan chauhan 03-27-2019 17:01-0400 BMI (Body Mass Index) 27.46 kg/m2 Josh Faith [facility], [place] 03-27-2019 17:01-0400 Body Temperature 97.7 [degF] Josh Faith [facility], [place] 03-27-2019 17:01-0400 Body weight 72.58 kg Hilo [place] [facility] , [place] 03-27-2019 17:01-0400 BP Diastolic 58 mm[Hg] [facility] , [place] 03-27-2019 17:01-0400 BP Systolic 142 mm[Hg] [facility] , [place] 03-27-2019 17:01-0400 Height 162.6 cm [facility] , [place] 03-27-2019 17:01-0400 Pulse (Heart Rate) 51 /min [facility], [place] 03-27-2019 17:01-0400 Pulse Oximetry 100 % [facility] , [place] 03-27-2019 17:01-0400 Respiratory Rate 14 /min Hilo Faith [facility], [place] 03-16-2019 01:33-0400 BMI (Body Mass Index) 23.68 kg/m2 [facility] 03-16-2019 01:33-0400 Body Temperature 98.01 [degF] Javier [facility], [place] 03-16-2019 01:33-0400 Body weight 74.84 kg Javier [facility] , [place] 03-16-2019 01:33-0400 BP Diastolic 70 mm[Hg] [facility] , [place] 03-16-2019 01:33-0400 BP Systolic 145 mm[Hg] Javier [facility] , [place] 03-16-2019 01:33-0400 Height 177.8 cm [facility] , [place] 03-16-2019 01:33-0400 Pulse (Heart Rate) 100 /min Javier [facility], [place] 03-16-2019 01:33-0400 Pulse Oximetry 97 % [facility] , [place] 03-16-2019 01:33-0400 Respiratory Rate 16 /min Javier Buchanan [facility], [place] 03-13-2019 15:00-0400 Pulse Oximetry 95 % [facility] [place] [place] 03-13-2019 15:00-0400 Respiratory Rate 16 /min [facility] [place] 03-13-2019 12:07-0400 Body Temperature 97.3 [degF] [facility] [place] 03-13-2019 12:07-0400 BP Diastolic 54 mm[facility]Hg[facility] [place] 03-13-2019 12:07-0400 BP Systolic 119 mm[Hg] Wolfgang [facility], [place] 03-13-2019 12:07-0400 Pulse (Heart Rate) 73 /min [facility] [place] [place] 03-12-2019 06:00-0400 BMI (Body Mass Index) 22.24 kg/m2 Wolfgang [facility], [place] 03-12-2019 06:00-0400 Body weight 70.3 kg [facility], [place] 03-08-2019 07:02-0400 Height 177.8 cm [place], [place] Encounters Encounter Date Encounter Type Care Provider Facility Start: 08-01-2023 Clinisync Result Encounter Chasidy Helton MD Work Phone: [facility] External [facility] Unsolicited Start: 08-01-2023 Clinisync Result Encounter Chasidy Helton MD Work Phone: [facility] External [facility] Unsolicited Start: 03-27-2019 End: 03-27-2019 Emergency department patient visit TALIA KOREYSusy DAWIT [facility] Start: 03-27-2019 End: 03-27-2019 Emergency department patient visit Josh Faith Work Phone: [facility] ED Comment on above: Acute kidney injury (HCC) (Primary Dx) Start: 03-16-2019 End: 03-16-2019 Emergency department patient visit JAVIER BUCHANAN [facility] Start: 03-16-2019 End: 03-16-2019 Emergency department patient visit Javier Buchanan Work Phone: [facility] ED Comment on above: Acute urinary retent ion (Primary Dx) Start: 03-07-2019 End: 03-13-2019 Evaluation and management of inpatient TALIA PASTOR [facility] Start: 03-07-2019 End: 03-13-2019 Evaluation and management of inpatient Wolfgang Moe Sara Work Phone: [facility] Med Surg Comment on above: VANESA (acute kidney in jury) (HCC) (Primary Dx); Pneumonia due to organism; Acute cystitis without hematuria Start: 12-10-2018 End: 12-13-2018 Evaluation and management of inpatient TALIA BECKMAN [facility] Start: 11-03-2018 End: 11-04-2018 Patient encounter procedure REBECA ORELLANA [facility] Start: 10-23-2018 End: 10-24-2018 Patient encounter procedure LEOBARDO HOGUE-HILDA [facility] Start: 10-12-2018 End: 10-13-2018 Patient encounter procedure [facility] Start: 09-28-2018 End: 09-29-2018 [facility] Start: 09-20-2018 End: 09-21-2018 Patient encounter procedure ELIZABETH Alonso [facility] Start: 09-07-2018 End: 09-08-2018 Patient encounter procedure ELIZABETH Alonso [facility] Start: 08-31-2018 End: 09-01-2018 Patient encounter procedure TALIA PASTOR [facility] Start: 08-21-2018 End: 08-24-2018 Patient encounter procedure SHARIFA Linares [facility] Start: 08-16-2018 End: 08-17-2018 Patient encounter procedure TALIA PASTOR [facility] Start: 07-11-2018 End: 07-12-2018 Patient encounter procedure SHARIFA [facility] Procedures Date Procedure Procedure Detail Performing Clinician Start: 08-01-2023 ALL AMMONIA Chasidy Helton MD Work Phone: Start: 03-27-2019 IP CONSULT TO FAMILY MEDICINE SHARIFA PANGULUR Start: 03-27-2019 Basic metabolic panel calcium total SHARIFA PANGULUR Start: 03-27-2019 Blood count complete auto&auto difrntl wbc SHARIFA PANGULUR Start: 03-27-2019 Basic metabolic panel calcium total Josh [place] Work Phone: Start: 03-27-2019 Blood count complete auto&auto difrntl wbc Josh Faith Work Phone: Start: 03-16-2019 Urinalysis microscopic only SHARIFA SPIVEY GULUR Start: 03-16-2019 Urnls dip stick/tablet rgnt auto w/o microscopy SHARIFA PANGULUR Start: 03-16-2019 CATHETER REMOVAL SHARIFA PANGULUR Start: 03-16-2019 INSERT CONNOLLY CATHETER SHARIFA PANGULUR Start: 03-16-2019 Urinalysis microscopic only Javier chery Work Phone: Start: 03-16-2019 Urnls dip stick/tablet rgnt auto w/o microscopy Javier Buchanan Work Phone: Start: 03-13-2019 NEBULIZER TX INTERMITTENT [...] Start: 03-13-2019 Glucose blood reagent strip Talia Koreye R obinson Work Phone: Start: 03-13-2019 BASIC METABOLIC PANEL [...] Koreye R obinson Work Phone: Start: 03-12-2019 DISCHARGE [...] K Talia Stipe Pastor Work Phone: Start: 03-12-2019 INTAKE AND OUTPUT SHARIFA PANGULUR Start: 03-11-2019 Gluc bld gluc mntr dev cleared fda spec home use SHARIFA PANGULUR Start: 03-11-2019 NEBULIZER TX INTERMITTENT SHARIFA PANGU LUR Start: 03-11-2019 Glucose blood reagent strip SHARIFA SPIVEY GULUR Start: 03-11-2019 Glucose blood reagent strip Talia Stipe R [employer] Work Phone: Start: 03-11-2019 NEBULIZER TX INTERMITTENT SHARIFA PANGU LUR Start: 03-11-2019 Glucose blood reagent strip SHARIFA SPIVEY GULUR Start: 03-11-2019 Glucose blood reagent strip Talia Stipe R [employer] Work Phone: Start: 03-11-2019 Gluc bld gluc mntr dev cleared fda spec home use SHARIFA PANGULUR Start: 03-11-2019 NEBULIZER TX INTERMITTENT SHARIFA PANGU LUR Start: 03-11-2019 Radiologic exam chest 2 views SHARIFA PANGULUR Start: 03-11-2019 Glucose blood reagent strip SHARIFA SPIVEY GULUR Start: 03-11-2019 Radiologic exam chest 2 views Abby Deanna Work Phone: Start: 03-11-2019 Glucose blood reagent [...] K Talia Stipe Pastor Work Phone: Start: 03-11-2019 Gluc bld gluc mntr dev cleared fda spec home use SHARIFA PANGULUR Start: 03-11-2019 Glucose blood reagent strip Talia Koreysusy R [employer] Work Phone: Start: 03-11-2019 INTAKE AND OUTPUT SHARIFA PANGULUR Start: 03-10-2019 Gluc bld gluc mntr dev cleared fda spec home use SHARIFA PANGULUR Start: 03-10-2019 NEBULIZER TX INTERMITTENT SHARIFA PANGU LUR Start: 03-10-2019 Glucose blood reagent strip SHARIFA SPIVEY GULUR Start: 03-10-2019 Glucose blood reagent strip Talia Beckman [employer] Work Phone: Start: 03-10-2019 Glucose blood reagent strip SHARIFA SPIVEY GULUR Start: 03-10-2019 NEBULIZER TX INTERMITTENT SHARIFA PANGU LUR Start: 03-10-2019 Glucose blood reagent strip Talia Koreysusy [employer] Work Phone: Start: 03-10-2019 Gluc bld gluc mntr dev cleared fda spec home use HSARIFA PANGULUR Start: 03-10-2019 NEBULIZER TX INTERMITTENT SHARIFA PANGU LUR Start: 03-10-2019 Glucose blood reagent strip SHARIFA SPIVEY GULUR Start: 03-10-2019 Glucose blood reagent strip Talia Beckman [employer] Work Phone: Start: 03-10-2019 Gluc bld gluc [...] GULUR Start: 03-10-2019 Assay of magnesium Talia Pastor Work Phone: Start: 03-10-2019 BASIC METABOLIC PANEL W/ REFLEX TO MG FOR LOW K Talia Beckman Dawit Work Phone: Start: 03-10-2019 Drug screen quantitative digoxin total Talia Beckman Pastor Work Phone: Start: 03-10-2019 Gluc bld gluc mntr dev cleared fda spec home use SHARIFA PANGULUR Start: 03-10-2019 Glucose blood reagent strip Talia Beckman [employer] Work Phone: Start: 03-10-2019 INTAKE AND OUTPUT SHARIFA PANGULUR Start: 03-09-2019 Glucose blood reagent strip SHARIFA SPIVEY GULUR Start: 03-09-2019 Gluc bld gluc mntr dev cleared fda spec home use SHARIFA PANGULUR Start: 03-09-2019 NEBULIZER TX INTERMITTENT SHARIFA PANGU LUR Start: 03-09-2019 Glucose blood reagent strip Talia Beckman [employer] Work Phone: Start: 03-09-2019 Glucose blood reagent strip SHARIFA SPIVEY GULUR Start: 03-09-2019 NEBULIZER TX INTERMITTENT SHARIFA PANGU LUR Start: 03-09-2019 Glucose blood reagent strip Taliasiddharth Beckman [employer] Work Phone: Start: 03-09-2019 Gluc bld gluc mntr dev cleared fda spec home use SHARIFA PANGULUR Start: 03-09-2019 NEBULIZER TX INTERMITTENT SHARIFA PANGU LUR Start: 03-09-2019 Glucose blood reagent strip SHARIFA SPIVEY GULUR Start: 03-09-2019 Glucose blood reagent strip Talia Rk [employer] Work Phone: Start: 03-09-2019 ELEVATE HEELS OFF [...] Start: 03-09-2019 Glucose blood reagent strip Talia Koreye R obinson Work Phone: Start: 03-09-2019 Gluc bld gluc [...] Koreye R obinson Work Phone: Start: 03-08-2019 TELEMETRY MONITORING SHARIFA [...] End: 03-08-2019 Glucose blood reagent strip Talia hansen Work Phone: Start: 03-08-2019 BASIC METABOLIC PANEL W/ REFLEX TO MG FOR LOW K Talia Koreysusy Dawit Work Phone: Start: 03-08-2019 Gluc bld gluc mntr dev cleared fda spec home use SHARIFA PANGULUR Start: 03-08-2019 DAILY WEIGHTS SHARIFA PANGULUR Start: 03-08-2019 INTAKE AND OUTPUT SHARIFA PANGULUR Start: 03-08-2019 Glucose blood reagent strip SHARIFA SPIVEY GULUR Start: 03-07-2019 DIET CARB CONTROL SHARIFA PANGULUR Start: 03-07-2019 DNR COMFORT CARE SHARIFA PANGULUR Start: 03-07-2019 INITIATE OXYGEN THERAPY PROTOCOL SHARIFA PANGULUR Start: 03-07-2019 INTAKE AND OUTPUT SHARIFA PANGULUR Start: 03-07-2019 IP CONSULT TO CARDIOLOGY SHARIFA SPIVEYGUL UR Start: 03-07-2019 IP CONSULT TO PULMONOLOGY SHARIFA PANGU LUR Start: 03-07-2019 NEBULIZER TX INTERMITTENT SHARIFA PANGU LUR Start: 03-07-2019 NOTIFY PHYSICIAN (SPECIFY) SHARIFA GENEVA BIJU Start: 03-07-2019 OT EVAL AND TREAT SHARIFA PANGULUR Start: 03-07-2019 PLACE INTERMITTENT PNEUMATIC COMPRESSION DEVICE SHARIFA PANGULUR Start: 03-07-2019 PT EVAL AND TREAT SHARIFA PANGULUR Start: 03-07-2019 REASON FOR NO CHEMICAL VTE PROPHYLAXIS SHARIFA PANGULUR Start: 03-07-2019 REASON FOR NOT SELECTING BASAL INSULIN SHARIFA PANGULUR Start: 03-07-2019 TOBACCO CESSATION EDUCATION SHARIFA SPIVEY GULUR Start: 03-07-2019 VITAL SIGNS SHARIFA PANGULUR Start: 03-07-2019 Glucose blood reagent strip Talia [...] routine ecg w/least 12 lds w/i&r SHARIFA MJEÍALUR Start: 03-07-2019 EKG REPORT SHARIFA ABURTOR Start: 03-07-2019 Radiologic exam chest 2 views SHARIFA ABURTOR Start: 03-07-2019 Assay of lipase SHARIFA MEJÍALUR Start: 03-07-2019 Assay of troponin quantitative SHARIFA MEJÍALUR Start: 03-07-2019 Blood count complete auto&auto difrntl wbc SHARIFA MEJÍALUR Start: 03-07-2019 BRAIN NATRIURETIC PEPTIDE SHARIFA MEJÍA LUR Start: 03-07-2019 Comprehensive metabolic panel SHARIFA MEJÍALUR Start: 03-07-2019 Hemoglobin glycosylated a1c SHARIFA CHILDERSLUR Start: 03-07-2019 Gluc bld gluc mntr dev cleared fda spec home use Mikaela [place] Work Phone: Start: 03-07-2019 Glucose blood reagent strip [facility] Work Phone: Start: 03-07-2019 Culture bacterial quanttative colony count urine Wolfgang Abhi [facility] Work Phone: Start: 03-07-2019 Ct abdomen & pelvis w/o contrast material Mikaela [place] Work Phone: Start: 03-07-2019 Urinalysis microscopic only SHARIFA CHILDERSLUR Start: 03-07-2019 Urnls dip stick/tablet rgnt auto w/o microscopy SHARIFA MEJÍALUR Start: 03-07-2019 Ecg routine ecg w/least 12 lds i&r only Mikaela [place] Work Phone: Start: 03-07-2019 EKG REPORT Hpf Scanning Start: 03-07-2019 Radiologic exam chest 2 views Mikaela Pfeiffer Work Phone: Start: 03-07-2019 Assay of lipase Mikaela Pfeiffer Work Phone: Start: 03-07-2019 End: 03-07-2019 Assay of troponin quantitative Mikaela Pfeiffer Work Phone: Start: 03-07-2019 Blood count complete auto&auto difrntl wbc Mikaela Pfeiffer Work Phone: Start: 03-07-2019 Comprehensive metabolic panel Mikaela Pfeiffer Work Phone: Start: 03-07-2019 Hemoglobin glycosylated a1c Mikaela Lozano n Work Phone: Start: 03-07-2019 Natriuretic peptide Mikaela Pfeiffer Work Phone: Start: 03-07-2019 Urinalysis microscopic only Mikaela linares Work Phone: Start: 03-07-2019 Urnls dip stick/tablet rgnt auto w/o microscopy Mikaela Pfeiffer Work Phone: Start: 12-13-2018 Gluc bld gluc mntr dev cleared fda spec home use SHARIFA PANGULUR Start: 12-13-2018 Assay of magnesium SHARIFA PANLISETHLUR Start: 12-13-2018 Glucose blood reagent strip SHARIFA SPIVEY GULUR Start: 12-13-2018 DISCHARGE PATIENT SHARIFA ALLYSSALISETHLUR Start: 12-13-2018 Gluc bld gluc mntr dev cleared fda spec home use SHARIFA PANGULUR Start: 12-13-2018 INITIATE OXYGEN THERAPY PROTOCOL SHARIFA SPIVEYGULUR Start: 12-13-2018 RESPIRATORY CARE EVALUATION AND TREAT SHAIRFA MEJÍALUOdalis Start: 12-13-2018 Glucose blood reagent strip SHARIFA PAN GULUR Start: 12-13-2018 Gluc bld gluc mntr dev cleared fda spec home use SHARIFA PANGULUR Start: 12-12-2018 Gluc bld gluc mntr dev cleared fda spec home use SHARIFA PANGULUR Start: 12-12-2018 Glucose blood reagent strip SHARIFA PAN GULUR Start: 12-12-2018 Glucose blood reagent strip [...] blood reagent strip SHARIFA CHILDERSLUR Start: 12-11-2018 Gluc bld gluc mntr dev cleared fda spec home use SHARIFA MEJÍALUR Start: 12-11-2018 INITIATE OXYGEN THERAPY PROTOCOL SHARIFA MEJÍALUR Start: 12-11-2018 RESPIRATORY CARE EVALUATION AND TREAT SHARIFA MEJÍALUR Start: 12-11-2018 Glucose blood reagent strip SHARIFA SPIVEY GULUR Start: 12-11-2018 PLACE INTERMITTENT PNEUMATIC COMPRESSION DEVICE SHARIFA MEJÍALUR Start: 12-11-2018 Gluc bld gluc mntr dev cleared fda spec home use SHARIFA PANGULUR Start: 12-11-2018 Basic metabolic panel calcium total SHARIFA MEJÍALUR Start: 12-11-2018 Blood count complete auto&auto difrntl wbc SHARIFA SPIVEYGULUR Start: 12-11-2018 RESPIRATORY CARE EVALUATION AND TREAT SHARIFA MEJÍALUR Start: 12-10-2018 Gluc bld gluc mntr dev cleared fda spec home use SHARIFA MEJÍALUR Start: 12-10-2018 Glucose blood reagent strip SHARIFA SPIVEY GULUR Start: 12-10-2018 DIET LOW SODIUM 2 GM SHARIFA SPIVEYGULUR Start: 12-10-2018 FULL CODE SHARIFA SPIVEYGULUR Start: 12-10-2018 IP CONSULT TO CARDIOLOGY SHARIFA DAVIS UR Start: 12-10-2018 NOTIFY PHYSICIAN (SPECIFY) SHARIFA GENEVA LECHUGANEETA Start: 12-10-2018 REASON FOR NO MECHANICAL VTE PROPHYLAXIS SHARIFA SPIVEYGULUR Start: 12-10-2018 VITAL SIGNS SHARIFA MEJÍALUR Start: 12-10-2018 Urnls dip stick/tablet rgnt auto w/o microscopy SHARIFA SPIVEYGULUR Start: 12-10-2018 PATIENT STATUS (FROM ED OR OR/PROCEDURAL) SHARIFA MEJÍALUR Start: 12-10-2018 Assay of troponin quantitative SHARIFA MEJÍALUR Start: 12-10-2018 IP CONSULT TO FAMILY MEDICINE SHARIFA MEJÍALUR Start: 12-10-2018 INITIATE OXYGEN THERAPY PROTOCOL SHARIFA MEJÍALUR Start: 12-10-2018 Ct abdomen & pelvis w/o contrast material SHARIFA MEJÍALUR Start: 12-10-2018 Radiologic exam chest 2 views SHARIFA MEJÍALUR Start: 12-10-2018 Blood count complete auto&auto difrntl wbc SHARIFA MEJÍALUR Start: 12-10-2018 Prothrombin time SHARIFA MEJÍALUR Start: 12-10-2018 Assay of lipase SHARIFA MEJÍALUR Start: 12-10-2018 Assay of troponin quantitative SHARIFA MEJÍALUR Start: 12-10-2018 BRAIN NATRIURETIC PEPTIDE SHARIFA MEJÍA LUR Start: 12-10-2018 Comprehensive metabolic panel SHARIFASUSAN MEJÍALUR Start: 12-10-2018 Drug screen quantitative digoxin total SHARIFA MEJÍALUR Start: 12-10-2018 Drug tst prsmv instrmnt chem analyzers pr date SHARIFA MEJÍALUR Start: 12-10-2018 Ecg routine ecg w/least 12 lds w/i&r SHARIFA MEJÍALUR Start: 12-10-2018 EKG REPORT SHARIFA MEJÍALUR Start: 12-10-2018 TELEMETRY MONITORING SHARIFA MEJÍALUR Start: 12-10-2018 INSERT PERIPHERAL IV SHARIFA MEJÍALUR Start: 11-03-2018 Assay of free thyroxine SHARIFA MEJÍALU R Start: 11-03-2018 Assay of thyroid stimulating hormone tsh SHARIFA PANLISETHLUR Start: 11-03-2018 Assay of triiodothyronine t3 free SHARIFA PANGULUR Start: 11-03-2018 Basic metabolic panel calcium total SHARIFA PANGULUR Start: 10-23-2018 Assay of magnesium SHARIFA PANGULUR Start: 10-23-2018 Assay of phosphorus inorganic SHARIFA PANLISETHLUR Start: 10-23-2018 Blood count complete auto&auto difrntl [...] 08-21-2018 Radiologic exam abdomen 1 view SHARIFA MEJÍALUR Start: 08-16-2018 Basic metabolic panel calcium total SHARIFA PANGULUR Start: 07-11-2018 Blood count complete automated SHARIFA MEJÍALUR Plan of Treatment Date Care Activity Detail Author Start: 03-13-2020 Creatinine monitoring Creatinine mon itoring [place], [place] Start: 03-13-2020 Potassium monitoring Potassium monit oring [place] Start: 09-05-2019 A1C test (Diabetic o r Prediabetic) A1C test (Diabetic or Prediabetic) [place], [place] Start: 06-27-2019 DTaP/Tdap/Td vaccine (1 - Tdap) DTaP/Tdap/Td vaccine (1 - Tdap) [place], [place] Comment on above: Postponed from 03/25 (Insurance / Financial) Start: 04-20-2019 End: 04-20-2019 Office Visit 04/20/2019 Office Visit Urology Bryant Eller MD [address] [place], [place] [id number] [facility] [place] Start: 02-25-2019 Influenza vaccination Flu vaccine (# 1) [place], [place] Start: 11-22-2018 Annual Wellness Visi t (AWV) Annual Wellness Visit (AWV) [place], [place] Start: 11-30-2017 [object Object] Diabetic foot exam [place], [place] Start: 05-28-2017 Lipid screen Lipid screen [place], [place] Start: 05-26-2016 Diabetic retinal exam Diabetic retin al exam [place], [place] Start: 03-22-2016 Shingles Vaccine (2 of 3) Shingles Vaccine (2 of 3) [place] Basic Metabolic Pane l w/ Reflex to MG Basic Metabolic Panel w/ Reflex to MG Lab Routine Daily until discontinued starting 03/08/2019, 6 completed [place] Comment on above: Daily until disconti nued starting 03/08/2019, 6 completed HHN Treatment HHN Treatment Respiratory Care Routine Every 4hr while awake until discontinued starting 03/08/2019 [place] Comment on above: Every 4hr while awak e until discontinued starting 03/08/2019 Initiate Oxygen Ther apy Protocol Initiate Oxygen Therapy Protocol Respiratory Care Routine Daily until discontinued starting 03/07/2019 [place] Comment on above: Daily until disconti nued starting 03/07/2019 POCT glucose [place] Comment on above: 4X Daily (AC & HS) u ntil discontinued starting 03/08/2019 As Needed until disc ontinued starting 03/07/2019 Immunizations Immunization Date Immunization Notes Care Provider Fa cility 03-10-2018 influenza, injectabl e, quadrivalent, preservative free [place] 02-22-2017 influenza, injectabl e, quadrivalent, contains preservative [place] 10-01-2016 pneumococcal conjuga te vaccine, 13 valent [place] 04-01-2016 influenza, injectabl e, quadrivalent, contains preservative [facility], [place] 01-26-2016 zoster vaccine, live Wolfgang [facility], [place] 01-02-2016 zoster vaccine, live [facility], [place] 05-26-2015 influenza virus vacc ine, unspecified formulation [facility] , [place] 05-27-2014 pneumococcal polysaccharide vaccine, 23 valent [facility] 05-10-2013 influenza virus vacc ine, unspecified formulation [facility] [place] 05-11-2012 influenza virus vacc ine, unspecified formulation [facility] [place] 06-10-2011 influenza virus vacc ine, unspecified formulation [facility] [place] 05-19-2010 influenza virus vacc ine, unspecified formulation [facility] [place] Payers Date Payer Category Payer Unknown [facility] xxxxxx [id number] 2022-Present [phone] [address] [place] [address] [id number] 2015 Medicare BCBS MEDICARE AN THEM MEDIBLUE ESSENTIAL/PLUS xxxxxxxxxxxx 2015-Present [address] [address] [place] [address] xxxxxxxxxxxx [id number] 2015 Medicare [id number] 1935 Unknown [id number] 1935 Unknown [id number] 1935 Unknown [id number] [id number] 1937 Unknown [id number] [id number] 1937 Unknown [id number] 2.16.840.1.445780.3.579.2.176 1937 Unknown [id number] 2.16.840.1.674291.3.579.2.176 1937 Unknown [id number] 2.16.840.1.248120.3.579.2.176 1937 Unknown [id number] 2.16.840.1.892440.3.579.2.176 1937 Unknown [id number] 2.16.840.1.043002.3.579.2.176 1937 Unknown [id number] 2.16.840.1.513000.3.579.2.176 1937 Unknown [id number] 2.16.840.1.678732.3.579.2.176 1937 Unknown [id number] 2.16.840.1.799471.3.579.2.176 1937 Unknown [id number] 2.16.840.1.724740.3.579.2.176 1937 Unknown [id number] 2.16.840.1.599609.3.579.2.176 1937 Unknown [id number] 2.16.840.1.425694.3.579.2.176 1937 Unknown [id number] 2.16.840.1.425238.3.579.2.176 1935 Unknown [id number] [id number] Social History Date Type Detail Facility Start: 03-07-2019 End: 03-16-2019 Tobacco smoking status NHIS Former smoker [place], [place] End: 06-27-1967 History of tobacco use Current smoker [place] Start: 03-07-2019 End: 03-16-2019 Cigarettes smoked current (pack per day) [facility] Start: 03-07-2019 End: 03-16-2019 [facility] intake [facility] Start: 01-06-2015 Tobacco Comment quit over 50 years a [facility] Start: 1935 Sex Assigned At Not on file [facility] [place] [facility] Discharge Instructions * Discharge Instr - JEWELL* Renee Fernandez RN - 03/09/2019 12:34 PM EDT Continuity of Care Form Patient Name: Miguel Neville : 1935 Admit date: 03/07/2019 Discharge date: 03/13/2019 Code Status Order: DNR-CC Advance Directives: Advance Care Flowsheet Documentation Date/Time Healthcare Directive Type of Healthcare Directive Copy in Chart Healthcare Agent Appointed Healthcare Agent's Name Healthcare Agent's Phone Number 03/07/197 Yes, patient has an advance directive for healthcare treatment Admitting Physician: Talia Pastor MD PCP: Talia Pastor MD Discharging Nurse: Anca HOFFMANN Discharging Hospital Unit/Room#: 2043/2043-01 Discharging Unit Emergency Contact: Extended Emergency Contact Information Primary Emergency Contact: JocelynncookieAlvin Relation: Child Secondary Emergency Contact: Aleksandra Neville [facility] Mobile Relation: None Past Surgical History: Past [...] and older Afluria) 03/10/2018 Pneumococcal Conjugate 13-valent ([id number]) 10/01/2016 Pneumococcal Polysaccharide ([id number]) 05/27/2014 Zoster Live (Zostavax) 01/02/2016, 01/26/2016 Active Problems: Patient Active Problem List Diagnosis Code Benign essential hypertension I10 Renal cyst N28.1 SVT (supraventricular tachycardia) ([facility]) I47.1 Uncontrolled type 2 diabetes mellitus without complication, with long-term current use of insulin (HCC) E11.65, Z79.4 Atrial fibrillation (HCC) I48.91 Hx of simple renal cyst Z87.448 Body mass index (BMI) of 23.0-23.9 in adult Z68.23 Hypomagnesemia E83.42 Diverticulosis K57.90 Acute blood loss anemia D62 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, I42.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 Chronic diastolic heart failure, NYHA class 2 ([facility]) I50.32 CKD (chronic kidney disease) stage 3, GFR 30-59 ml/min ([facility]) N18.3 Hypercholesteremia E78.00 Mild pulmonary hypertension (HCC) I27.20 Moderate tricuspid regurgitation I07.1 Presence of [...] Wt 150 lb 9.2 oz (68.3 kg) [id number]% BMI 21.61 kg/m Last documented pain score (0-10 scale): Pain Level: 3 Last Weight: Wt Readings from Last 1 Encounters: 03/09/19 150 lb 9.2 oz (68.3 kg) Mental Status: oriented and alert IV Access: - None Nursing Mobility/ADLs: Walking Assisted Transfer Assisted Bathing Assisted Dressing Assisted Toileting Assisted Feeding Assisted Trial Management Associate Assisted Med Delivery whole Wound Care Documentation [...] only, NOT a DME order): Other Treatments: jail assessment, medication education and monitoring, resume previous orders Patient's personal belongings (please select all that are sent with patient): None RN SIGNATURE: MANAGEMENT/SOCIAL WORK SECTION Inpatient Status Date: 03/07/2019 Readmission Risk Assessment Score: Readmission Risk Risk of Unplanned Readmission: 19 Discharging to Facility/ Agency Name: [facility] ([facility]) Address[place] [address] federal aid coordinator crystal [phone] Fax: Concrete Laborer/Costume Seamstress signature: ICIAN SECTION Prognosis: Guarded Condition at Discharge: Stable Rehab Potential (if transferring to Rehab): Guarded Recommended Labs or Other Treatments After Discharge: Physician Certification: I certify the above information and transfer of Miguel Neville is necessary for the continuing treatment of the diagnosis listed and that he requires Penitentiary Facility for less 30 days. Update Admission H&P: No change in H&P PHYSICIAN SIGNATURE: documented in this encounter* Instructions* Josh Cuevas MD - 03/27/2019 Blood tests today showed [...] breathing. documented in this encounter* Instructions* Javier Buchanan MD - 03/16/2019 --- --- Current Diagnosis [...] medications. --- Having trouble affording medications? Try [employer]! (This is not a hospital endorsed website, merely a recommendation based on my own personal experiences with [facility]) --- Questions? Contact me anytime. Javier Buchanan MD, JAYSON --- --- * Attachments The following attachments cannot be sent through Care Everywhere. * Urinary Retention (Yi) documented in this encounter History of Present [...] Donald OTA - 03/12/2019 10:40 AM EDT [facility] OCCUPATIONAL THERAPY MISSED TREATMENT NOTE INPATIENT Date: 03/12/19 Patient Name: Miguel Neville Room: : 1935 (83 y.o.) Gender: male Referring Practitioner: Dr. Pastor Diagnosis: Pneumonia REASON FOR MISSED TREATMENT: Patient with another ancillary department - 10:40 respiratory in room with pt. will attempt again time permitting EDU Elliott * Guru Rebolledo MD - 03/12/2019 9:53 AM EDT PULMONARY [...] ECF Plan of care discussed with Dr Rebolledo REASON FOR VISIT: pneumonia, UTI I examined the patient myself The assessment and Plan in the note per my discussion with ROAD SUPERVISOR * Talia Pastor MD - 03/11/2019 1:42 PM EDT Miguel Neville is a 83 y.o. male patient. Current Facility-Administered Medications Medication Dose Route Frequency Provider Last Rate Last Dose ciprofloxacin (CIPRO) tablet 250 mg 250 mg Oral 2 times per day Talia Pastor MD 250 mg at 03/11/1939 atorvastatin (LIPITOR) tablet 40 mg 40 mg Oral Daily Talia Pastor MD 40 mg at 03/11/19 0938 diltiazem (CARDIZEM CD) extended release capsule 240 mg 240 mg Oral Daily Talia Pastor MD 240 mg at 03/11/19938 fenofibrate tablet 160 mg 160 mg Oral Daily Talia Pastor MD 160 mg at 03/11/19938 finasteride (PROSCAR) tablet 5 mg 5 mg Oral Daily Talia Pastor MD 5 mg at 09/15/19 0939 furosemide (LASIX) tablet 40 mg 40 [...] Daily Talia Pastor MD 0.8 mg at 03/11/1943 vitamin E capsule 400 Units 400 Units [...] Units Subcutaneous TID WC Talia Pastor MD 1 Units at 03/11/19 1235 insulin lispro (HUMALOG) injection vial 0-3 Units 0-3 Units Subcutaneous Nightly Talia Pastor MD 2 Units at 03/10/192004 albuterol (PROVENTIL) nebulizer solution 2.5 mg 2.5 mg Nebulization Q4H WA aTlia Pastor MD 2.5 mg at 03/11/19 1052 sodium chloride flush 0.9 % injection 10 mL 10 mL Intravenous 2 times per day Talia Pastor MD 10 mL at 03/11/19 0942 sodium chloride flush 0.9 % injection 10 mL 10 mL Intravenous PRN Tlaia Pastor MD magnesium hydroxide (MILK OF MAGNESIA) [...] WC Talia Pastor MD 20 mg at 03/11/19 [...] 0600 Talia Pastor MD 03/11/2019 * Guru Rebolledo MD - 03/11/2019 12:59 PM EDT PULMONARY [...] fluid Plan of care discussed with Dr Rebolledo REASON FOR VISIT: pneumonia I examined the patient myself The assessment and Plan in the note per my discussion with ROAD SUPERVISOR * Andrew Knott MD - 03/11/2019 11:25 AM EDT [facility] Progress Note 03/11/2019 11:25 [...] Subcutaneous Nightly albuterol 2.5 mg Nebulization Q4H KS sodium chloride flush 10 mL Intravenous 2 [...] Problem: Pneumonia Active Problems: SVT (supraventricular tachycardia) ([facility]) Benign essential hypertension Uncontrolled type 2 diabetes mellitus without complication, with long-term current use of insulin ([facility]) Atrial fibrillation ([facility]) CHF with cardiomyopathy ([facility]) Chronic diastolic heart failure, NYHA class 2 ([facility]) CKD (chronic kidney disease) stage 3, GFR 30-59 ml/min ([facility]) Mild pulmonary hypertension ([facility]) 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 ANDREW KNOTT MD [facility] * Candy Johnston RN - 03/10/2019 9:00 PM EDT Patient states [...] 03/10/2019 11:46 AM EDT Physical Therapy Facility/Department: [facility] MED SURG Daily Treatment Note NAME: Miguel Neville : 1935 Date of Service: 03/10/2019 [...] Code Treatment Minutes: 30 Minutes * Andrew Knott MD - 03/10/2019 10:48 AM EDT [facility] Progress Note 03/10/2019 10:48 [...] Problem: Pneumonia Active Problems: SVT (supraventricular tachycardia) ([facility]) Benign essential hypertension Uncontrolled type 2 diabetes mellitus without complication, with long-term current use of insulin (HCC) Atrial fibrillation (HCC) CHF with cardiomyopathy (HCC) Chronic diastolic heart failure, NYHA class 2 (HCC) CKD (chronic kidney disease) stage 3, GFR 30-59 ml/min ([facility]) Mild pulmonary hypertension ([facility]) 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 ANDREW KNOTT MD [facility] * Talia Pastor MD - 03/10/2019 10:31 AM EDT Miguel Neville is a 83 y.o. male patient. Current Facility-Administered Medications Medication Dose Route Frequency Provider Last Rate Last Dose ciprofloxacin (CIPRO) tablet 250 mg 250 mg Oral 2 times per day Talia Pastor MD atorvastatin (LIPITOR) tablet 40 mg 40 mg Oral Daily Talia Pastor MD 40 mg at 03/09/19 0915 diltiazem (CARDIZEM CD) extended release capsule 240 mg 240 mg Oral Daily Talia Pastor MD 240 mg at 09/13/19 0915 fenofibrate tablet 160 mg 160 mg Oral [...] Units Subcutaneous TID WC Talia Pastor MD 3 Units at 03/09/19 170 insulin lispro (HUMALOG) injection vial 0-3 Units 0-3 Units Subcutaneous Nightly Talia Pastor MD 1 Units at 03/09/192113 albuterol (PROVENTIL) nebulizer solution 2.5 mg 2.5 mg Nebulization Q4H WA Talia Pastor MD 2.5 mg at 03/10/19 [...] WC Talia Pastor MD 20 mg at 03/09/19 [...] SNF when Precert obtained. Associated with indwelling connolly No pneumonia Dementia with delirium d/t UTI - resolved. Talia Pastor MD 03/10/2019 1033 Talia Pastor MD 03/10/2019 * Guru Rebolledo MD - 03/10/2019 9:11 AM EDT PULMONARY [...] Plan of care discussed with Dr Bart ARSHAD, SALES AND OPERATIONS TRAINEE - MEDICAL BILLING ASSOCIATE REASON FOR VISIT: Pl effusion, dyspnea I examined the patient myself The assessment and Plan in the note per my discussion with ROAD SUPERVISOR * Andrew Knott MD - 03/09/2019 5:32 PM EDT [facility] Progress Note 03/09/2019 5:32 PM Subjective: Mr. Neville has no chest pain, shortness of breath, or palpitations LABS: CBC: Recent Labs 03/07/19 170 WBC 10.3 HGB 10.5* HCT 33.5* MCV [...] last 72 hours. Troponin: Recent Labs 03/07/19 17003/07/19 1900 TROPONINT NOT REPORTED NOT REPORTED PROBNP Recent Labs 03/07/191704 PROBNP 946* Pulse Ox: SpO2 Av.3 % [...] been identified and corrected by editing. ANDREW KNOTT MD [facility] * Dayan Ledbetter, PT - 03/09/2019 3:33 PM EDT Physical Therapy REVISED GOALS [facility] Date: 03/09/19 Patient Name: Miguel Neville Room: Account: [id number] : 1935 (83 y.o.) Gender: male 03/09/19 [...] w/ CGA x 1 * Megan Jackson, LEATHER COATER - 03/09/2019 12:31 PM EDT Physical Therapy [facility] Physical Therapy Progress Note Date: 03/09/19 Patient Name: Miguel Neville Room: Account: [id number] : 1935 (83 y.o.) Gender: male Discharge [...] states pt had been using O2 at [facility], walking with RW (had Rollator at home for 1 wk before pt developed PNA, admitted to [facility]); CHF is at point where fluid around lungs is normal/expected, better controlled since admission, with Lasix; blood sugars have been running high. Daughter states pt was Dx'd with UTI, which exacerbated his dementia. Pt states everything was (felt) screwed up yesterday. Comments: RN Anca OK'd tx, reports pt is more oriented today. O2, HR remained WNL throughout tx. Treated w/ SPTA Rossy Knowles. Vital Signs Pulse: 102(after seated ex; remained in 100s throughout tx. ) Heart Rate Source: Monitor Patient Currently in Pain: Denies Oxygen Therapy SpO2: 98 % O2 Device: None (Room air) Patient Observation Observations: Pt sitting in bedside chair on entry, asked to remain there after for lunch. Yovany, IV L forearm Bed Mobility: Bed Mobility [...] exercises 1: Seated B LE ther ex, AROM/[place] [employer] [place] resistance band, 15x each Other exercises 2: Standing tolerance, 3 min. w/RW Assessment Activity Tolerance: Patient Tolerated treatment well Body structures, Functions, Activity limitations: Decreased functional mobility ;Decreased endurance;Decreased cognition;Decreased safe awareness Discharge Recommendations: ECF with PT Type of devices: All fall risk precautions in place;Call light within reach;Patient at risk for falls;Nurse notified;Left in chair(RN Anca; daughter present on exit) Plan Times per [...] Lagunas, OT - 03/09/2019 10:56 AM EDT [facility] Occupational Therapy Evaluation Date: 03/09/19 Patient Name: Miguel Neville Room: Account: [id number] : 1935 (83 y.o.) Gender: male Discharge [...] Assistance: Independent(uses RW) Transfer Assistance: Independent Active Photographic Process Worker: Yes Mode of Transportation: Car Occupation: Retired Additional Comments: Pt and Pt's daughter report that he has been at [facility] since Mid-December. Pt has been [...] identify errors made Perception Overall Perceptual Status: WF Sensation Overall Sensation Status: WF ADL Feeding: Setup Grooming: Supervision, Setup, Increased [...] UE Function LUE Strength Gross LUE Strength: [facility] L Hand General: 4+/5 LUE Strength Comment: Shoulder 4+/5, elbow 4+/5 LUE Tone: Normotonic LUE AROM (degrees) LUE AROM : WFL Left Hand AROM (degrees) Left Hand AROM: WFL RUE Strength Gross RUE Strength: [facility] R Hand General: 4+/5 RUE Strength Comment: [...] Patient Tolerated treatment well Functional Outcome Measures [facility] Daily Activity Inpatient How much help for [...] much help for eating meals?: A Little [facility] Inpatient Daily Activity Raw [facility]: [facility] ADL T-Scale Score : 38.66 ADL Inpatient CMS 0-100% Score: 46.65 ADL Inpatient [facility] G-Code Modifier : CK Goals Patient Goals [...] Time Out: 1026 Minutes: 19 * Guru Rebolledo MD - 03/09/2019 8:54 AM EDT PULMONARY [...] Subcutaneous Nightly albuterol 2.5 mg Nebulization Q4H KS sodium chloride flush 10 mL Intravenous 2 times per day ziprasidone 20 mg Oral BID levofloxacin 750 mg Intravenous Q48H And piperacillin-tazobactam [...] ABGs: No results for input(s): PHART, PO2ART, RBT1YGI, HWW2IMK, BEART, E4GJWAOC, JFN9CIH in the last 72 hours. PT/INR: No results found for: PTINR ASSESSMENT / PLAN: CHF - stable - per cardiology Suspected UTI - ABx - GM - rods; ID/susceptibility pending ? Pneumonia - atelectasis on CXR Hx pl effusion - thoracentesis x 2 in last 3 months Confusion/ encephalopathy/ dementia - close to baseline * Talia Pastor MD - 03/09/2019 8:27 AM EDT Miguel Neville is a 83 y.o. male patient. Current Facility-Administered Medications Medication Dose Route Frequency Provider Last Rate Last Dose atorvastatin (LIPITOR) tablet 40 mg 40 mg Oral Daily Talia Pastor MD 40 mg at 03/08/19 0825 diltiazem (CARDIZEM CD) extended release capsule 240 mg 240 mg Oral Daily Talia Pastor MD 240 mg at 03/08/19 0825 digoxin (LANOXIN) tablet 125 mcg 125 mcg Oral Daily Talia Pastor MD 125 mcg at 03/08/19 0825 fenofibrate tablet 160 mg 160 mg Oral Daily Talia Pastor MD 160 mg at 03/08/19 08 finasteride (PROSCAR) tablet 5 mg 5 mg Oral Daily Talia Pastor MD 5 mg at 03/08/19824 furosemide (LASIX) tablet 40 mg 40 mg Oral Daily Talia Pastor MD 40 mg at 03/08/19824 insulin glargine (LANTUS) injection vial 10 Units 10 Units Subcutaneous QAM Talia Pastor MD10 Units at 03/08/19825 lisinopril (PRINIVIL;ZESTRIL) tablet 40 mg 40 mg Oral Daily Talia Pastor MD 40 mg at 03/08/19 08 magnesium oxide (MAG-OX) tablet 400 mg 400 mg Oral Daily Talia Pastor MD 400 mg at 825 metoprolol succinate (TOPROL XL) extended release tablet 100 mg 100 mg Oral Daily Talia Pastor MD 100 mg at 03/08/191125 linagliptin (TRADJENTA) tablet 5 mg 5 mg Oral Daily Talia Pastor MD 5 mg at 03/08/19824 tamsulosin (FLOMAX) capsule 0.8 mg 0.8 mg Oral Daily Talia Pastor MD 0.8 mg at 03/08/19824 vitamin E capsule 400 Units 400 Units Oral Daily Talia Pastor MD 400 Units at 03/08/191125 insulin glargine (LANTUS) injection vial 8 Units 8 Units Subcutaneous Nightly Talia Pastor MD 8 Units at 03/08/192143 glucose (GLUTOSE) 40 % oral gel 15 [...] WC Talia Pastor MD 4 Units at 03/08/198 insulin lispro (HUMALOG) injection vial 0-3 Units 0-3 Units Subcutaneous Nightly Talia Pastor MD 1 Units at 09/12/19 2145 albuterol (PROVENTIL) nebulizer solution 2.5 mg [...] Subjective: Symptoms: (Urinary retention pain this morning; connolly flushed and manipulated and return obtained. Mental [...] PM EDT SW spoke to Crystal from [facility]. She will start the pre-cert for pt's return to facility. * Dayan Ledbetter, PT - 03/08/2019 9:39 AM EDT Physical Therapy Facility/Department: [facility] Initial Assessment NAME: Miguel Neville : 1935 Date of Service: 03/08/2019 [...] walker- up independently) Transfer Assistance: Independent Active Photographic Process Worker: Yes Mode of Transportation: Car Occupation: Retired [...] notified(nurse Cavazos) G-Code OutComes Score AM-PAC Score [facility] Inpatient Mobility Raw Score : 8 (03/08/19849) [facility] Inpatient T-Scale Score : 28.52 (03/08/19849) Mobility [...] Time Individual Concurrent Group Co-treatment Time In 849 Time Out 921 Minutes 32 Timed Code Treatment Minutes: 12 Minutes Dayan Ledbetter PT * Xu Grimes, [facility] - 03/08/2019 7:17 AM EDT Found patient on Room Air. Pulse Ox reading of 98% Patient complained of SOB. Placed on Cannula at 3.0 lpm RN informed. * Bradford Lagunas, SHUN - 03/07/2019 11:35 PM EDT Spoke with Dr. Rosado, plan to see in the morning no new orders at this time. * Bradford Lagunas RN - 03/07/2019 9:25 PM EDT Patient arived to room 2043 from ER, bed left in lowest, locked positing with call light with in reach, no distress noted at this time * Michelle Mei RPH - 03/07/2019 8:49 PM EDT Medication History [...] facility list. Thank you, Michelle Mei PharmD, [facility] [phone] documented in this encounter* Michelle eMi RPH - 03/27/2019 6:32 PM EDT Medication History completed: New medications: none Medications discontinued: none Changes to dosing: Fenofibrate changed to nightly Furosemide changed to twice daily Potassium chloride changed to ER tablet formulation Stated allergies: As listed Other pertinent information: Medications confirmed with facility list. Thank you, Michelle Mei PharmD, [facility] [phone] documented in this encounter Assessments Diagnosis Pneumonia- Primary Pneumonia, organism unspecified VANESA (acute kidney injury) (HCC) Acute kidney failure, unspecified Pneumonia due to organism Pneumonia due to other specified organism Acute cystitis without hematuria Acute cystitis Atrial fibrillation (HCC) Atrial fibrillation Benign essential hypertension Essential hypertension, benign Chronic diastolic heart failure, NYHA class 2 (HCC) Chronic diastolic heart failure CKD (chronic kidney disease) stage 3, GFR 30-59 ml/min (HCC) Chronic kidney disease, Stage III (moderate) CHF [...] Documents on File Type Date Recorded Patient Jockey'S Agent Expl anation Advance Directives and Livin g Will 03/07/2018 9:31 AM MBFP Advance Directives and Livin g Will 01/09/2015 10:42 AM Power of Grain Combine Driver Power of Grain Combine Driver 01/09/2015 10:42 AM Latest Code Status on [...] To Contact Diagnoses Pneumonia Talia Pastor MD [address] [id number] [facility] Reason Comments Abnormal Lab Creatinine: 2.83 Reason Comments Urinary Retention (unrecognized sect ion and content) No Status Records Found INFORMATION SOURCE (unrecogn ized section and content) DATE CREATED AUTHOR 03/28/2019 [facility] FOR RECORDS PERTAINING TO PATIENTS WHO [...] BE BASED ON THE PRIMARY CLINICAL RECORDS. [employer] provides no warranty or guarantee of the accuracy or completeness of information in this document.
[2023-08-05 10:27] LABS: Anion Gap 9.4; BUN Creatinine Ratio 20.9; Carbon Dioxide 29.8 mmol/L (21.0-32.0); Chloride 104 mmol/L (98-107); Estimated GFR (African America 41 (>=60); Estimated GFR (Non-African Ame 34 (>=60); Glucose 89 mg/dL (74-106); Potassium 4.2 mmol/L (3.5-5.1); Sodium 139 mmol/L (136-145)
== END 2023-08-05 02:26 | disposition home or self-care (01) ==
LOC: LAB 02:25
PROVIDERS: Visit Provider Family Medicine
DX: I50.32 Chronic diastolic (congestive) heart failure (principal)
CPT/HCPCS: 36415; 80048; 83880

== ENCOUNTER 2023-08-24 02:26 | Outpatient (REF) | payer MEDICARE, SELFPAY ==
--- OUTSIDE RECORDS SUMMARY | 2023-08-24 02:32 | XMS_ITS | CCD ---
Author Name Unknown Address [address] [place] [address] Organization [facility] Care Team Providers Care Government Clerk Name Role Phone Pastor, Talia Stipe Primary Care Provider [phone] ALLYSSAGUIKE HALEHAKAR N Referring Unavailable PASTOR, TALIA [...] PASTOR, TALIA STIPE Primary Care Unavailable DA BAINS-LEOBAROD STEVENS Attending Unavaila ble DA BAINS-LEOBARDO STEVENS [...] Facility (3 sources) diphenhydrAMINE Drug Allergy 04-19-2012 [facility], [place] Medications Current Medications Medication Drug Class(es) Dates Sig (Normalized) Sig (Original) acetaminophen 325 mg oral tablet (4 sources) Start: 03-07-2019 650 mg, Oral, EVERY 4 HOURS PRN, Pain Mild (1-3), Fever, For temp greater than 100.5 F (38 C), Starting Tue03/07/19 at 2122 Maximum dose of acetaminophen is 4000 mg from all sources in 24 hours. take 2 tablets by mo [facility] every four hours as needed for fever [...] 35 umol/L High 11 - 32 umol/L [facility] Interpretation and review of laboratory results Abnormal [facility] e Basic Metabolic Panelon 100 Anion gap [Moles/Vol] 13 mmol/L 9 - 17 mmol/L [place] Bun/Cre Ratio NOT REPORTED [place], [place] Calcium [Mass/Vol] 9.3 mg/dL 8.6 - 10. 4 mg/dL [place] Chloride [Moles/Vol] 99 mmol/L 98 - 10 7 mmol/L [place] CO2 [Moles/Vol] 24 mmol/L 20 - 31 mmol/L [place] Creatinine [Mass/Vol] 2.75 mg/dL High 0.7 - 1.2 mg/dL [place] GFR 27 mL/min Low >60 [place] GFR Non- 22 mL/min Low >60 [place] GFR/1.73 sq M predicted among non-blacks MDRD (S/P/Bld) [Vol rate/Area] NOT REPORTED [place] GFR/1.73 sq M predicted among non-blacks MDRD (S/P/Bld) [Vol rate/Area] [place] Comment on above: Average GFR for 70 o r more years old: 75 mL/min/1.73sq m Chronic Kidney Disease: <60 mL/min/1.73sq m Kidney failure: <15 mL/min/1.73sq m eGFR calculated using average adult body mass. Additional eGFR calculator available at: http://www.Amartus/multiple_crcl_2012.htm Glucose [Mass/Vol] 92 mg/dL 70 - 99 mg/dL [place], [place] Interpretation and review of laboratory results Abnormal [place] Potassium [Moles/Vol] 5.2 mmol/L 3.7 - 5.3 mmol/L [place] Sodium [Moles/Vol] 136 mmol/L 135 - 144 mmol/L [place] Urea nitrogen [Mass/Vol] 61 mg/dL High 8 - 23 mg/dL [place] Basic Metabolic Profon 03-27 (cont.) Normal [facility] Comment on above: Result Comment: Aver age GFR for 70 or more years old: 75 mL/min/1.73sq m Chronic Kidney Disease: <60 mL/min/1.73sq m Kidney failure: <15 mL/min/1.73sq m eGFR calculated using average adult body mass. Additional eGFR calculator available at: http://www.Amartus/multiple_crcl_2012.htm Performed By: #### H H, BMP #### [facility] [address] [place], [place] [id number] Circuit Board Drafter: Con Oseguera MD Anion gap [Moles/Vol] 13 mmol/L Normal - [facility] Comment on above: Performed By: #### H H, BMP #### [facility] [address] [place], [place] [id number] [employer] Drafter: Con Oseguera MD Calcium [Mass/Vol] 9.3 mg/dL Normal 8.6-10.4 [facility] Comment on above: Performed By: #### H H, BMP #### [facility] [address] [place] [address] [employer] Drafter: Con Oseguera MD Chloride [Moles/Vol] 99 mmol/L Normal 98-107 [facility] Comment on above: Performed By: #### H H, BMP #### [facility] [address] [place] [address] [employer] Drafter: Con Oseguera MD CO2 [Moles/Vol] 24 mmol/L Normal 20-31 [facility] Comment on above: Performed By: #### H H, BMP #### [facility] [address] [place] [address] [employer] Drafter: Con Oseguera MD Creatinine [Mass/Vol] 2.75 mg/dL High 0.70-1.20 [facility] Comment on above: Performed By: #### H H, BMP #### [facility] [address] [place] [address] [employer] Drafter: Con Oseguera MD GFR, Amer 27 mL/min Low >60 [facility] Comment on above: Performed By: #### H H, BMP #### [facility] [address] [place] [address] [employer] Drafter: Con Oseguera MD GFR,non Amer 22 mL/min Low >60 [facility] Comment on above: Performed By: #### H H, BMP #### [facility] [address] [place] [address] [employer] Board Drafter: Con Oseguera MD Glucose [Mass/Vol] 92 mg/dL Normal 70-99 [facility] Comment on above: Performed By: #### H H, BMP #### [facility] [address] [place] [address] [employer] Drafter: Con Oseguera MD Potassium [Moles/Vol] 5.2 mmol/L Normal 3.7-5.3 [facility] Comment on above: Performed By: #### H H, BMP #### [facility] [address] [place] [address] [employer] Drafter: Con Oseguera MD Sodium [Moles/Vol] 136 mmol/L Normal 135-144 [facility] Comment on above: Performed By: #### H H, BMP #### [facility] [address] [place] [address] [employer] Drafter: Con Oseguera MD Urea nitrogen [Mass/Vol] 61 mg/dL High 8-23 [facility] Comment on above: Performed By: #### H H, BMP #### [facility] [address] [place] [address] [employer] Board Drafter: Con Oseguera MD BUN/CRE Ratio NOT REPORTED Normal 9-20 [facility] Comment on above: Performed By: #### H H, BMP #### [facility] [address] [place] [address] [employer] Drafter: Con Oseguera MD Staging: NOT REPORTED Normal [facility] Comment on above: Performed By: #### H H, BMP #### [facility] [address] [place] [address] [employer] Drafter: Con Oseguera MD CBC Auto Differentialon 10-0 Basophils (Bld) [#/Vol] 0.08 10*3/uL [facility] Basophils/100 WBC (Bld) 1 % 0 - 2 % [facility] [place] Differential Type NOT REPORTED [facility] Eosinophils (Bld) [#/Vol] 0.39 10*3/uL [place] Eosinophils/100 WBC (Bld) 5 % High 0 - 4 % [place] Erythrocyte distribution width (RBC) [Ratio] 28.8 % High 11.5 - 14.9 % [place] Hematocrit (Bld) [Volume fraction] 33.5 % Low 41 - 53 % [place] Hemoglobin (Bld) [Mass/Vol] 10.5 g/dL Low 13.5 - 17.5 g/dL [place] Interpretation and review of laboratory results Abnormal [place] Lymphocytes (Bld) [#/Vol] 2.00 10*3/uL [place] Lymphocytes/100 WBC (Bld) 26 % 24 - 44 % [place] MCH (RBC) [Entitic mass] 23.6 pg Low 26 - 34 pg [place] MCHC (RBC) [Mass/Vol] 31.3 g/dL 31 - 37 g/dL [place] MCV (RBC) [Entitic vol] 75.4 fL Low 80 - 100 fL [place] Monocytes (Bld) [#/Vol] 0.69 10*3/uL [place] Monocytes/100 WBC (Bld) 9 % High 1 - 7 % [place] Morphology Theo (Bld) [Interp] 1+ ELLIPTOCYTES [place] Morphology Theo (Bld) [Interp] 1+ ECHINOCYTES [place] Morphology Theo (Bld) [Interp] ANISOCYTOSIS PRESENT [place] Platelet mean volume (Bld) [Entitic vol] 8.9 fL 6 - 12 fL [place], [place] Platelets (Bld) [#/Vol] NOT REPORTED [place] Platelets (Bld) [#/Vol] 305 10*3/uL [place] RBC (Bld) [#/Vol] 4.44 10*6/uL Low 4.5 - 5.9 m/uL M [place], [place] RBC morphology finding Nom (Bld) NOT REPORTED [place] Segmented neutrophils/100 WBC (Bld) 59 % 36 - 66 % [place] Segs Absolute 4.54 [place] WBC (Bld) [#/Vol] NOT REPORTED per 100 WBC [place] WBC (Bld) [#/Vol] 7.7 10*3/uL [place] WBC Morphology NOT REPORTED [place], [place] CBC with Diffon 03-27-2019 Abs. Basophil 0.08 k/uL Normal 0.0-0.2 [facility] Comment on above: Performed By: #### H H, BMP #### [facility] [address] [facility] [place] [address] [employer] Drafter: Con Oseguera MD Abs.Neutrophil (Seg) 4.54 k/uL Normal 1.3-9.1 [facility] Comment on above: Performed By: #### H H, BMP #### [facility] [address] [facility] [place] [address] [employer] Board Drafter: Con Oseguera MD Basophils/100 WBC (Bld) 1 % Normal 0-2 [facility] Comment on above: Performed By: #### H H, BMP #### [facility] [address] [facility] [place] [address] [employer] Drafter: Con Oseguera MD Eosinophils (Bld) [#/Vol] 0.39 10*3/uL Normal 0.0-0.4 [facility] Comment on above: Performed By: #### H H, BMP #### [facility] [address] [facility] [place] [address] [employer] Drafter: Con Oseguera MD Eosinophils/100 WBC (Bld) 5 % High 0-4 [facility] Comment on above: Performed By: #### H H, BMP #### [facility] [address] [facility] [place] [address] [employer] Drafter: Con Oseguera MD Lymphocytes (Bld) [#/Vol] 2.00 10*3/uL Normal 1.0-4.8 [facility] Comment on above: Performed By: #### H H, BMP #### [facility] [address] [place] [address] [employer] Drafter: Con Oseguera MD Lymphocytes/100 WBC (Bld) 26 % Normal 24-44 [facility] Comment on above: Performed By: #### H H, BMP #### [facility] [address] [place] [address] [employer] Drafter: Con Oseguera MD Monocytes (Bld) [#/Vol] 0.69 10*3/uL Normal 0.1-1.3 [facility] Comment on above: Performed By: #### H H, BMP #### [facility] [place] [address] [employer] Drafter: Con Oseguera MD Monocytes/100 WBC (Bld) 9 % High 1-7 [facility] Comment on above: Performed By: #### H H, BMP #### [facility] [place] [address] [employer] Drafter: Con Oseguera MD Morphology Theo (Bld) [Interp] ANISOCYTOSIS PRESENT Normal [facility] Comment on above: Result Comment: 1+ ELLIPTOCYTES 1+ ECHINOCYTES Performed By: #### H H, BMP #### [facility] [address] [place] [address] [employer] Drafter: Con Oseguera MD Neutrophil (Seg) 59 % Normal 36-66 [facility] Comment on above: Performed By: #### H H, BMP #### [facility] [address] [place] [address] [employer] Drafter: Con Oseguera MD Erythrocyte distribution width (RBC) [Ratio] 28.8 % High 11.5-14.9 [facility] Comment on above: Performed By: #### H H, BMP #### [facility] [place] [address] [employer] Drafter: Con Oseguera MD Hematocrit (Bld) [Volume fraction] 33.5 % Low 41-53 [facility] Comment on above: Performed By: #### H H, BMP #### [facility] [address] [place] [address] [employer] Drafter: Con Oseguera MD Hemoglobin (Bld) [Mass/Vol] 10.5 g/dL Low 13.5-17.5 [facility] Comment on above: Performed By: #### H H, BMP #### [facility] [address] [place] [address] [employer] Drafter: Con Oseguera MD MCH (RBC) [Entitic mass] 23.6 pg Low 26-34 [facility] Comment on above: Performed By: #### H H, BMP #### [facility] [address] [place] [address] [employer] Drafter: Con Oseguera MD MCHC (RBC) [Mass/Vol] 31.3 g/dL Normal 31-37 [facility] Comment on above: Performed By: #### H H, BMP #### [facility] [address] [place] [address] [employer] Drafter: Con Oseguera MD MCV (RBC) [Entitic vol] 75.4 fL Low 80-100 [facility] Comment on above: Performed By: #### H H, BMP #### [facility] [place] [address] [employer] Board Drafter: Con Oseguera MD Platelet mean volume (Bld) [Entitic vol] 8.9 fL Normal 6.0-12.0 [facility] Comment on above: Performed By: #### H H, BMP #### [facility] [place] [address] [employer] Board Drafter: Con Oseguera MD Platelets (Bld) [#/Vol] 305 10*3/uL Normal 150-450 [facility] Comment on above: Performed By: #### H H, BMP #### [facility] [place] [address] [employer] Drafter: Con Osegurea MD RBC (Bld) [#/Vol] 4.44 10*6/uL Low 4.5-5.9 [facility] Comment on above: Performed By: #### H H, BMP #### [facility] [address] [place] [address] [employer] Drafter: Con Oseguera MD WBC (Bld) [#/Vol] 7.7 10*3/uL Normal 3.5-11.0 [facility] Comment on above: Performed By: #### H H, BMP #### [facility] [address] [place] [address]. [place] [address] [employer] Board Drafter: Con Oseguera MD Abs.Imm.Granulocyte NOT REPORTED Normal 0.00-0.30 [facility] Comment on above: Performed By: #### H H, BMP #### [facility] [address] [place] [address] [employer] Drafter: Con Oseguera MD Auto Diff Performed NOT REPORTED Normal [facility] Comment on above: Performed By: #### H H, BMP #### [facility] [address] [place] [address] [employer] Drafter: Con Oseguera MD Immature granulocytes (Bld) [#/Vol] NOT REPORTED Normal 0 [facility] Comment on above: Performed By: #### H H, BMP #### [facility] [address] [facility] [place] [address] [employer] Drafter: Con Oseguera MD NRBC Automated NOT REPORTED Normal [facility] Comment on above: Performed By: #### H H, BMP #### [facility] [address] [facility] [place] [address] [employer] Drafter: Con Oseguera MD Platelets (Bld) [#/Vol] NOT REPORTED Normal [facility] Comment on above: Performed By: #### H H, BMP #### [facility] [address] [facility] [place] [address] [employer] Drafter: Con Oseguera MD RBC morphology finding Nom (Bld) NOT REPORTED Normal [facility] Comment on above: Performed By: #### H H, BMP #### [facility] [address] [facility] [place] [address] [employer] Drafter: Con Oseguera MD WBC Morphology NOT REPORTED Normal [facility] Comment on above: Performed By: #### H H, BMP #### [facility] [address] [facility] [place] [address] [employer] Drafter: Con Oseguera MD Otheron 03-27-2019 Immature granulocytes [...] Trichomonas, UA NOT REPORTED None [facility] [place] [place] WBC, UA 0 TO 2 /HPF [facility], [place] Yeast, UA NOT REPORTED None [facility], [place] - [facility] Otheron 03-16-2019 Casts UA /LPF [facility] [place] UA w/Reflex Cultureon 2018 Acetoacetic Acid,Ur Negative Normal NEG [facility] Comment on above: Performed By: #### H H, BMP #### [facility] [address] [place] [address] [employer] Drafter: Con Oseguera MD Bilirubin, SemiQt,Ur Negative Normal NEG [facility] Comment on above: Performed By: #### H H, BMP #### [facility] [address] [place] [address] [employer] Drafter: Con Oseguera MD Color (U) YELLOW Normal YEL [facility] Comment on above: Performed By: #### H H, BMP #### [facility] [address] [place] [address] [employer] Drafter: Con Oseguera MD Glucose Ql (U) Negative Normal NEG [facility] Comment on above: Performed By: #### H H, BMP #### [facility] [address] [place] [address] [employer] Drafter: Con Oseguera MD Hemoglobin, Ur SMALL Abnormal NEG [facility] Comment on above: Performed By: #### H H, BMP #### [facility] [address] [place] [address] [employer] Drafter: Con Oseguera MD Leukocyte esterase Test strip Ql (U) Negative Normal NEG [facility] Comment on above: Performed By: #### H H, BMP #### [facility] [address] [place] [address] [employer] Drafter: Con Oseguera MD Nitrite,Ur Negative Normal NEG [facility] Comment on above: Performed By: #### H H, BMP #### [facility] [address] [place] [address] [employer] Drafter: Con Oseguera MD pH (U) 6.5 [pH] Normal 5.0-8.0 [facility] Comment on above: Performed By: #### H H, BMP #### [facility] [address] [place] [address] [employer] Drafter: Con Oseguera MD Protein Ql (U) Negative Normal NEG [facility] Comment on above: Performed By: #### H H, BMP #### [facility] [place] [address] [employer] Drafter: Con Oseguera MD Specific gravity (U) [Rel density] 1.008 Normal 1.000-1.030 [facility] Comment on above: Performed By: #### H H, BMP #### [facility] [facility] [place] [address] [employer] Drafter: Con Oseguera MD Turbidity CLEAR Normal CLEAR [facility] Comment on above: Performed By: #### H H, BMP #### [facility] [address] [facility] [place] [address] [employer] Drafter: Con Oseguera MD Urobilinogen,Ur Normal Normal NORM [facility] Comment on above: Performed By: #### H H, BMP #### [facility] [address] [place] [address] [employer] Drafter: Con Oseguera MD Comment NOT REPORTED Normal [facility] Comment on above: Performed By: #### H H, BMP #### [facility] [address] [facility] [place] [address] [employer] Drafter: Con Oseguera MD Urinalysis Reflex to Culture on 03-16-2019 Bilirubin Urine Negative NEGATIVE [facility] [place] [place] Color, UA YELLOW YELLOW [place], [place] Glucose, Ur Negative NEGATIVE [facility] [place] Interpretation and review of laboratory results Abnormal [place] Ketones Ql (U) Negative NEGATIVE [facility], [place] Leukocyte esterase Test strip Ql (U) Negative NEGATIVE [facility] Nitrite, Urine Negative NEGATIVE [facility], [place] pH, UA 6.5 [facility] Protein (U) [Mass/Vol] Negative NEGATIVE [facility], [place] Specific [place], UA 1.008 [facility], [place] Turbidity UA CLEAR CLEAR [facility], [place] Urinalysis Comments NOT REPORTED [facility], [place] Urine Hgb SMALL Abnormal NEGATIVE [facility] Urobilinogen, Urine Normal Normal [place], [place] Urinalysis,Microon 9 ----- Normal [facility] Comment on above: Performed By: #### H H, BMP #### [facility] [place], [place] [id number] [employer] Drafter: Con Oseguera MD Epithelial cells LM.HPF (Urine sed) [#/Area] 0 TO 2 Normal [facility] Comment on above: Performed By: #### H H, BMP #### [facility] [place] [address] [employer] Drafter: Con Oseguera MD RBC (U) [#/Vol] 20 TO 50 Normal [facility] Comment on above: Performed By: #### H H, BMP #### [facility] [address] [place] [address]. [place] [address] [employer] Drafter: Con Oseguera MD WBC (U) [#/Vol] 0 TO 2 Normal [facility] Comment on above: Performed By: #### H H, BMP #### [facility] [address] [place] [address] [employer] Drafter: Con Oseguera MD Amorphous sediment LM Ql (Urine sed) NOT REPORTED Normal NONE [facility] Comment on above: Performed By: #### H H, BMP #### [facility] [address] [facility] [place] [address] [employer] Drafter: Con Oseguera MD Bacteria LM.HPF (Urine sed) [#/Area] NOT REPORTED Normal NONE [facility] Comment on above: Performed By: #### H H, BMP #### [facility] [place] [address] [employer] Drafter: Con Oseguera MD Casts LM.LPF (Urine sed) [#/Area] NOT REPORTED Normal [facility] Comment on above: Performed By: #### H H, BMP #### [facility] [address] [place] [address]. [place] [address] [employer] Drafter: Con Oseguera MD Crystals LM Nom (Urine sed) NOT REPORTED Normal [facility] Comment on above: Performed By: #### H H, BMP #### [facility] [address] [place] [address]. [place] [address] [employer] Drafter: Con Oseguera MD Epithelial, Renal NOT REPORTED Normal 0 [facility] Comment on above: Performed By: #### H H, BMP #### [facility] [address] [place] [address]. [place] [address] [employer] Drafter: Con Oseguera MD Mucus Strands NOT REPORTED Normal [facility] Comment on above: Performed By: #### H H, BMP #### [facility] [address] [place] [address]. [place] [address] [employer] Drafter: Con Oseguera MD Other Observations NOT REPORTED Normal NREQ [facility] Comment on above: Performed By: #### H H, BMP #### [facility] [address] [place] [address] [employer] Drafter: Con Oseguera MD Trichomonas NOT REPORTED Normal NONE [facility] Comment on above: Performed By: #### H H, BMP #### [facility] [address] [place] [address] [employer] Drafter: Con Oseguera MD Yeast LM Ql (Urine sed) NOT REPORTED Normal NONE [facility] Comment on above: Performed By: #### H H, BMP #### [facility] [address] [place] [address] Circuit Board Drafter: Con Oseguera MD Basic Metab w/rfx MGon 03-13 (cont.) Normal [facility] Comment on above: Result Comment: Aver age GFR for 70 or more years old: 75 mL/min/1.73sq m Chronic Kidney Disease: <60 mL/min/1.73sq m Kidney failure: <15 mL/min/1.73sq m eGFR calculated using average adult body mass. Additional eGFR calculator available at: http://www.Bocada.QM Power/multiple_crcl_2012.htm Performed By: #### H H, BMP #### [facility] [address] [place] [address] [employer] Board Drafter: Con Oseguera MD Anion gap [Moles/Vol] 12 mmol/L Normal - [facility] Comment on above: Performed By: #### H H, BMP #### [facility] [address] [place] [address] [employer] Board Drafter: Con Oseguera MD Calcium [Mass/Vol] 9.2 mg/dL Normal 8.6-10.4 [facility] Comment on above: Performed By: #### H H, BMP #### [facility] [address] [place] [address] [employer] Board Drafter: Con Oseguera MD Chloride [Moles/Vol] 105 mmol/L Normal 98-107 [facility] Comment on above: Performed By: #### H H, BMP #### [facility] [address] [place] [address] [employer] Board Drafter: Con Oseguera MD CO2 [Moles/Vol] 26 mmol/L Normal 20-31 [facility] Comment on above: Performed By: #### H H, BMP #### [facility] [address] [place] [address] [employer] Board Drafter: Con Oseguera MD Creatinine [Mass/Vol] 1.41 mg/dL High 0.70-1.20 [facility] Comment on above: Performed By: #### H H, BMP #### [facility] [place] [address] [employer] Board Drafter: Con Oseguera MD GFR, Amer 58 mL/min Low >60 [facility] Comment on above: Performed By: #### H H, BMP #### [facility] [address] [facility] [address] [employer] Board Drafter: Con Oseguera MD GFR,non Amer 48 mL/min Low >60 [facility] Comment on above: Performed By: #### H H, BMP #### [facility] [address] [facility] [address] [employer] Board Drafter: Con Oseguera MD Glucose [Mass/Vol] 90 mg/dL Normal 70-99 [facility] Comment on above: Performed By: #### H H, BMP #### [facility] [address] [facility] [address] [employer] Board Drafter: Con Oseguera MD Potassium [Moles/Vol] 4.1 mmol/L Normal 3.7-5.3 [facility] Comment on above: Performed By: #### H H, BMP #### [facility] [address] [facility] [place] [address] [employer] Drafter: Con Oseguera MD Sodium [Moles/Vol] 143 mmol/L Normal 135-144 [facility] Comment on above: Performed By: #### H H, BMP #### [facility] [address] [facility] [place] [address] [employer] Board Drafter: Con Oseguera MD Urea nitrogen [Mass/Vol] 19 mg/dL Normal 8-23 [facility] Comment on above: Performed By: #### H H, BMP #### [facility] [address] [facility] [place] [address] [employer] Board Drafter: Con Oseguera MD BUN/CRE Ratio NOT REPORTED Normal 9-20 [facility] Comment on above: Performed By: #### H H, BMP #### [facility] [address] [facility] [place] [address] [employer] Board Drafter: Con Oseguera MD Staging: NOT REPORTED Normal [facility] Comment on above: Performed By: #### H H, BMP #### [facility] [address] [facility] [place] [address] [employer] Drafter: Con Oseguera MD Basic Metabolic Panel w/ Ref milagros to MGon 03-13-2019 Anion gap [Moles/Vol] 12 mmol/L 9 - 17 mmol/L [facility], [place] Bun/Cre Ratio NOT REPORTED [facility] [place], [place] Calcium [Mass/Vol] 9.2 mg/dL 8.6 - 10. 4 mg/dL [facility] [place] Chloride [Moles/Vol] 105 mmol/L 98 - 10 7 mmol/L [facility] CO2 [Moles/Vol] 26 mmol/L 20 - 31 mmol/L [facility] Creatinine [Mass/Vol] 1.41 mg/dL High 0.7 - 1.2 mg/dL [place], [place] GFR 58 mL/min Low >60 [place] GFR Non- 48 mL/min Low >60 [place] GFR/1.73 sq M predicted among non-blacks MDRD (S/P/Bld) [Vol rate/Area] [place] Comment on above: Average GFR for 70 o r more years old: 75 mL/min/1.73sq m Chronic Kidney Disease: <60 mL/min/1.73sq m Kidney failure: <15 mL/min/1.73sq m eGFR calculated using average adult body mass. Additional eGFR calculator available at: http://www.Amartus/multiple_crcl_2012.htm GFR/1.73 sq M predicted among non-blacks MDRD (S/P/Bld) [Vol rate/Area] NOT REPORTED [place] Glucose [Mass/Vol] 90 mg/dL 70 - 99 mg/dL [place], [place] Interpretation and review of laboratory results Abnormal [place] Potassium [Moles/Vol] 4.1 mmol/L 3.7 - 5.3 mmol/L [place] Sodium [Moles/Vol] 143 mmol/L 135 - 144 mmol/L [place] Urea nitrogen [Mass/Vol] 19 mg/dL 8 - 23 mg/dL [place] POC Glucose Fingerstickon Glucose [Mass/Vol] 195 mg/dL High 75 - 110 mg/dL [place], [place] Interpretation and review of laboratory results Abnormal [place] Glucose [Mass/Vol] 79 mg/dL 75 - 110 mg/dL [place] Basic Metab w/rfx MGon 03-12 (cont.) Normal [facility] Comment on above: Result Comment: Aver age GFR for 70 or more years old: 75 mL/min/1.73sq m Chronic Kidney Disease: <60 mL/min/1.73sq m Kidney failure: <15 mL/min/1.73sq m eGFR calculated using average adult body mass. Additional eGFR calculator available at: http://www.globalrph.com/multiple_crcl_2012.htm Performed By: #### H H, BMP #### [facility] [address] [place] [address] [employer] Drafter: Con Oseguera MD Anion gap [Moles/Vol] 11 mmol/L Normal 9-17 [facility] Comment on above: Performed By: #### H H, BMP #### [facility] [address] [place] [address] [employer] Drafter: Con Oseguera MD Calcium [Mass/Vol] 9.2 mg/dL Normal 8.6-10.4 [facility] Comment on above: Performed By: #### H H, BMP #### [facility] [address] [facility] [place] [address] [employer] Board Drafter: Con Oseguera MD Chloride [Moles/Vol] 108 mmol/L High 98-107 [facility] Comment on above: Performed By: #### H H, BMP #### [facility] [address] [facility] [place] [address] [employer] Drafter: Con Oseguera MD CO2 [Moles/Vol] 26 mmol/L Normal 20-31 [facility] Comment on above: Performed By: #### H H, BMP #### [facility] [place] [address] [employer] Drafter: Con Oseguera MD Creatinine [Mass/Vol] 1.41 mg/dL High 0.70-1.20 [facility] Comment on above: Performed By: #### H H, BMP #### [facility] [address] [facility] [address] [employer] Drafter: Con Oseguera MD GFR, Amer 58 mL/min Low >60 [facility] Comment on above: Performed By: #### H H, BMP #### [facility] [address] [place] [address] [employer] Board Drafter: Con Oseguera MD GFR,non Amer 48 mL/min Low >60 [facility] Comment on above: Performed By: #### H H, BMP #### [facility] [address] [place] [address] [employer] Board Drafter: Con Oseguera MD Glucose [Mass/Vol] 81 mg/dL Normal 70-99 [facility] Comment on above: Performed By: #### H H, BMP #### [facility] [address] [place] [address] Circuit Board Drafter: Con Oseguera MD Potassium [Moles/Vol] 4.1 mmol/L Normal 3.7-5.3 [facility] Comment on above: Performed By: #### H H, BMP #### [facility] [address] [place] [address] [employer] Board Drafter: Con Oseguera MD Sodium [Moles/Vol] 145 mmol/L High 135-144 [facility] Comment on above: Performed By: #### H H, BMP #### [facility] [address] [place] [address] [employer] Drafter: Con Oseguera MD Urea nitrogen [Mass/Vol] 20 mg/dL Normal 8-23 [facility] Comment on above: Performed By: #### H H, BMP #### [facility] [address] [place] [address] [employer] Board Drafter: Con Oseguera MD BUN/CRE Ratio NOT REPORTED Normal 9-20 [facility] Comment on above: Performed By: #### H H, BMP #### [facility] [address] [place] [address] [employer] Board Drafter: Con Oseguera MD Staging: NOT REPORTED Normal [facility] Comment on above: Performed By: #### H H, [facility] #### [facility] [address] [place] [address] Circuit Board Drafter: Con Oseguera MD Basic Metabolic Panel w/ Ref milagros to MGon 03-12-2019 Anion gap [Moles/Vol] 11 mmol/L 9 - 17 mmol/L [place] Bun/Cre Ratio NOT REPORTED [place], [place] Calcium [Mass/Vol] 9.2 mg/dL 8.6 - 10. 4 mg/dL [place] Chloride [Moles/Vol] 108 mmol/L High 98 - 10 7 mmol/L [place] CO2 [Moles/Vol] 26 mmol/L 20 - 31 mmol/L [place] Creatinine [Mass/Vol] 1.41 mg/dL High 0.7 - 1.2 mg/dL [place] GFR 58 mL/min Low >60 [place] GFR Non- 48 mL/min Low >60 [place] GFR/1.73 sq M predicted among non-blacks MDRD (S/P/Bld) [Vol rate/Area] NOT REPORTED [place] GFR/1.73 sq M predicted among non-blacks MDRD (S/P/Bld) [Vol rate/Area] [place] Comment on above: Average GFR for 70 o r more years old: 75 mL/min/1.73sq m Chronic Kidney Disease: <60 mL/min/1.73sq m Kidney failure: <15 mL/min/1.73sq m eGFR calculated using average adult body mass. Additional eGFR calculator available at: http://www.Bocada.QM Power/multiple_crcl_2012.htm Glucose [Mass/Vol] 81 mg/dL 70 - 99 mg/dL [place] Interpretation and review of laboratory results Abnormal [place] Potassium [Moles/Vol] 4.1 mmol/L 3.7 - 5.3 mmol/L [place] Sodium [Moles/Vol] 145 mmol/L High 135 - 144 mmol/L [place] Urea nitrogen [Mass/Vol] 20 mg/dL 8 - 23 mg/dL [place] POC Glucose Fingerstickon Glucose [Mass/Vol] 285 mg/dL High 75 - 110 mg/dL [place] Interpretation and review of laboratory results Abnormal [place] Glucose [Mass/Vol] 286 mg/dL High 75 - 110 mg/dL [place] Interpretation and review of laboratory results Abnormal [place] Glucose [Mass/Vol] 264 mg/dL High 75 - 110 mg/dL [place] Interpretation and review of laboratory results Abnormal [place] Glucose [Mass/Vol] 72 mg/dL Low 75 - 110 mg/dL [place] Interpretation and review of laboratory results Abnormal [place] Basic Metab w/rfx MGon 03-11 (cont.) Normal [facility] Comment on above: Result Comment: Aver age GFR for 70 or more years old: 75 mL/min/1.73sq m Chronic Kidney Disease: <60 mL/min/1.73sq m Kidney failure: <15 mL/min/1.73sq m eGFR calculated using average adult body mass. Additional eGFR calculator available at: http://www.Bocada.QM Power/multiple_crcl_2012.htm Performed By: #### H H, BMP #### [facility] [address] [facility]. [place], [place] [id number] Circuit Board Drafter: Con Oseguera MD Anion gap [Moles/Vol] 10 mmol/L Normal 9-17 [facility] Comment on above: Performed By: #### H H, BMP #### [facility] [address] [facility]. [place], [place] [id number] Circuit Board Drafter: Con Oseguera MD Calcium [Mass/Vol] 9.3 mg/dL Normal 8.6-10.4 [facility] Comment on above: Performed By: #### H H, BMP #### [facility] [address] [place] [address] Circuit Board Drafter: Con Oseguera MD Chloride [Moles/Vol] 104 mmol/L Normal 98-107 [facility] Comment on above: Performed By: #### H H, BMP #### [facility] [address] [place] [address] Circuit Board Drafter: Con Oseguera MD CO2 [Moles/Vol] 26 mmol/L Normal 20-31 [facility] Comment on above: Performed By: #### H H, BMP #### [facility] [address] [place] [address] Circuit Board Drafter: Con Oseguera MD Creatinine [Mass/Vol] 1.49 mg/dL High 0.70-1.20 [facility] Comment on above: Performed By: #### H H, BMP #### [facility] [address] [place] [address] Circuit Board Drafter: Con Oseguera MD GFR, Amer 55 mL/min Low >60 [facility] Comment on above: Performed By: #### H H, BMP #### [facility] [address] [place] [address] Circuit Board Drafter: Con Oseguera MD GFR,non Amer 45 mL/min Low >60 [facility] Comment on above: Performed By: #### H H, BMP #### [facility] [address] [place] [address] Circuit Board Drafter: Con Oseguera MD Glucose [Mass/Vol] 78 mg/dL Normal 70-99 [facility] Comment on above: Performed By: #### H H, BMP #### [facility] [address] [place] [address] Circuit Board Drafter: Con Oseguera MD Potassium [Moles/Vol] 4.0 mmol/L Normal 3.7-5.3 [facility] Comment on above: Performed By: #### H H, BMP #### [facility] [address] [place] [address] Circuit Board Drafter: Con Oseguera MD Sodium [Moles/Vol] 140 mmol/L Normal 135-144 [facility] Comment on above: Performed By: #### H H, BMP #### [facility] [address] [place] [address] Circuit Board Drafter: Con Oseguera MD Urea nitrogen [Mass/Vol] 22 mg/dL Normal 8-23 [facility] Comment on above: Performed By: #### H H, BMP #### [facility] [address] [facility] [place] [address] Circuit Board Drafter: Con Oseguera MD BUN/CRE Ratio NOT REPORTED Normal 9-20 [facility] Comment on above: Performed By: #### H H, BMP #### [facility] [address] [facility] [place] [address] Circuit Board Drafter: Con Oseguera MD Staging: NOT REPORTED Normal [facility] Comment on above: Performed By: #### H H, BMP #### [facility] [address] [facility] [place] [address] Circuit Board Drafter: Con Oseguera MD Basic Metabolic Panel w/ Ref milagros to MGon 03-11-2019 Anion gap [Moles/Vol] 10 mmol/L 9 - 17 mmol/L [facility], [place] Bun/Cre Ratio NOT REPORTED [facility], [place] Calcium [Mass/Vol] 9.3 mg/dL 8.6 - 10. 4 mg/dL [facility], [place] Chloride [Moles/Vol] 104 mmol/L 98 - 10 7 mmol/L [facility] CO2 [Moles/Vol] 26 mmol/L 20 - 31 mmol/L [place] Creatinine [Mass/Vol] 1.49 mg/dL High 0.7 - 1.2 mg/dL [place] GFR 55 mL/min Low >60 [place] GFR Non- 45 mL/min Low >60 [place] GFR/1.73 sq M predicted among non-blacks MDRD (S/P/Bld) [Vol rate/Area] [place] Comment on above: Average GFR for 70 o r more years old: 75 mL/min/1.73sq m Chronic Kidney Disease: <60 mL/min/1.73sq m Kidney failure: <15 mL/min/1.73sq m eGFR calculated using average adult body mass. Additional eGFR calculator available at: http://www.Amartus/multiple_crcl_2012.htm GFR/1.73 sq M predicted among non-blacks MDRD (S/P/Bld) [Vol rate/Area] NOT REPORTED [place] Glucose [Mass/Vol] 78 mg/dL 70 - 99 mg/dL [place] Interpretation and review of laboratory results Abnormal [place] Potassium [Moles/Vol] 4.0 mmol/L 3.7 - 5.3 mmol/L [place] Sodium [Moles/Vol] 140 mmol/L 135 - 144 mmol/L [place] Urea nitrogen [Mass/Vol] 22 mg/dL 8 - 23 mg/dL [place] POC Glucose Fingerstickon Glucose [Mass/Vol] 213 mg/dL High 75 - 110 mg/dL [place] Interpretation and review of laboratory results Abnormal [place] Glucose [Mass/Vol] 139 mg/dL High 75 - 110 mg/dL [place] Interpretation and review of laboratory results Abnormal [place] Glucose [Mass/Vol] 195 mg/dL High 75 - 110 mg/dL [place] Interpretation and review of laboratory results Abnormal [place] Glucose [Mass/Vol] 73 mg/dL Low 75 - 110 mg/dL [place] Interpretation and review of laboratory results Abnormal [place] XR CHEST (2 VW)on 03-11-2019 XR [...] Maxwell Chaudhry MD 03/11/19 Final result Normal [facility] XR CHEST STANDARD (2 VW)on 0 03-11-2019 [...] stable. No acute osseous abnormality is seen. [place], [place] 1. Stable bibasilar pulmonary opacities that may reflect atelectasis or pneumonia. 2. Stable small left pleural effusion. [place], [place] Stan, [facility] Incoming Radiant Results From [employer] - 03/11/2019 2:19 PM EDT EXAMINATION: TWO [...] pneumonia. 2. Stable small left pleural effusion. [facility] [place] [place] Basic Metab w/rfx MGon 03-10 (cont.) Normal [facility] Comment on above: Result Comment: Aver age GFR for 70 or more years old: 75 mL/min/1.73sq m Chronic Kidney Disease: <60 mL/min/1.73sq m Kidney failure: <15 mL/min/1.73sq m eGFR calculated using average adult body mass. Additional eGFR calculator available at: http://www.Amartus/multiple_crcl_2012.htm Performed By: #### B MP #### [facility] [address] [facility] [address] Circuit Board Drafter: Con Oseguera MD Anion gap [Moles/Vol] 12 mmol/L Normal 9-17 [facility] Comment on above: Performed By: #### B MP #### [facility] [address] [place] [address] Circuit Board Drafter: Con Oseguera MD Calcium [Mass/Vol] 9.3 mg/dL Normal 8.6-10.4 [facility] Comment on above: Performed By: #### B MP #### [facility] [address] [place] [address] Circuit Board Drafter: Con Oseguera MD Chloride [Moles/Vol] 102 mmol/L Normal 98-107 [facility] Comment on above: Performed By: #### B MP #### [facility] [address] [place] [address] Circuit Board Drafter: Con Oseguera MD CO2 [Moles/Vol] 27 mmol/L Normal 20-31 [facility] Comment on above: Performed By: #### B MP #### [facility] [address] [place] [address] Circuit Board Drafter: Con Oseguera MD Creatinine [Mass/Vol] 1.69 mg/dL High 0.70-1.20 [facility] Comment on above: Performed By: #### B MP #### [facility] [address] [place] [address] Circuit Board Drafter: Con Oseguera MD GFR, Amer 47 mL/min Low >60 [facility] Comment on above: Performed By: #### B MP #### [facility] [address] [place] [address] Circuit Board Drafter: Con Oseguera MD GFR,non Amer 39 mL/min Low >60 [facility] Comment on above: Performed By: #### B MP #### [facility] [address] [place] [address] [employer] Board Drafter: Con Oseguera MD Glucose [Mass/Vol] 87 mg/dL Normal 70-99 [facility] Comment on above: Performed By: #### B MP #### [facility] [address] [place] [address] Circuit Board Drafter: Con Oseguera MD Potassium [Moles/Vol] 4.2 mmol/L Normal 3.7-5.3 [facility] Comment on above: Performed By: #### B MP #### [facility] [address] [place] [address] Circuit Board Drafter: Con Oseguera MD Sodium [Moles/Vol] 141 mmol/L Normal 135-144 [facility] Comment on above: Performed By: #### B MP #### [facility] [address] [place] [address] Circuit Board Drafter: Con Oseguera MD Urea nitrogen [Mass/Vol] 24 mg/dL High 8-23 [facility] Comment on above: Performed By: #### B MP #### [facility] [address] [place] [address] Circuit Board Drafter: Con Oseguera MD BUN/CRE Ratio NOT REPORTED Normal 9-20 [facility] Comment on above: Performed By: #### B MP #### [facility] [address] [place] [address] Circuit Board Drafter: Con Oseguera MD Staging: NOT REPORTED Normal [facility] Comment on above: Performed By: #### B MP #### [facility] [address] [place] [address] Circuit Board Drafter: Con Oseguera MD Basic Metabolic Panel w/ Ref milagros to MGon 03-10-2019 Anion gap [Moles/Vol] 12 mmol/L 9 - 17 mmol/L [place] Bun/Cre Ratio NOT REPORTED [place] Calcium [Mass/Vol] 9.3 mg/dL 8.6 - 10. 4 mg/dL [place] Chloride [Moles/Vol] 102 mmol/L 98 - 10 7 mmol/L [place] CO2 [Moles/Vol] 27 mmol/L 20 - 31 mmol/L [place] Creatinine [Mass/Vol] 1.69 mg/dL High 0.7 - 1.2 mg/dL [place] GFR 47 mL/min Low >60 [place] GFR Non- 39 mL/min Low >60 [place] GFR/1.73 sq M predicted among non-blacks MDRD (S/P/Bld) [Vol rate/Area] NOT REPORTED [place] GFR/1.73 sq M predicted among non-blacks MDRD (S/P/Bld) [Vol rate/Area] [place] Comment on above: Average GFR for 70 o r more years old: 75 mL/min/1.73sq m Chronic Kidney Disease: <60 mL/min/1.73sq m Kidney failure: <15 mL/min/1.73sq m eGFR calculated using average adult body mass. Additional eGFR calculator available at: http://www.Bocada.com/multiple_crcl_2012.htm Glucose [Mass/Vol] 87 mg/dL 70 - 99 mg/dL [place] Interpretation and review of laboratory results Abnormal [place] Potassium [Moles/Vol] 4.2 mmol/L 3.7 - 5.3 mmol/L [place] Sodium [Moles/Vol] 141 mmol/L 135 - 144 mmol/L [place] Urea nitrogen [Mass/Vol] 24 mg/dL High 8 - 23 mg/dL [place] Digoxinon 03-10-2019 Digoxin [Mass/Vol] 0.6 ng/mL Normal 0.5-2.0 [facility] Comment on above: Result Comment: Digoxin Reference Range: Heart Failure 0.5-0.9 Atrial Fibrillation 0.8-2.0 Performed By: #### B MP #### [facility] [address] [facility] [place] [address] Circuit Board Drafter: Con Oseguera MD Digoxin [Mass/Vol] 915 ng/mL Normal [facility] Comment on above: Performed By: #### B MP #### [facility] [address] [facility] [place] [address] Circuit Board Drafter: Con Oseguera MD Digoxin [Mass/Vol] 3908753 ng/mL Normal [facility] Comment on above: Performed By: #### B MP #### [facility] [address] [facility] [place] [address] Circuit Board Drafter: Con Oseguera MD Digoxin [Mass/Vol] 125mct Normal [facility] Comment on above: Performed By: #### B MP #### [facility] [address] [place] [address] Circuit Board Drafter: Con Oseguera MD Digoxin Levelon 03-10-2019 Digoxin Date Last Dose [id number] [place], [place] Digoxin Dose Amount 125mct [place] Digoxin Dose Time [address] [facility] [place] INR Coag (Bld) [Relative time] 0.6 ng/mL 0.5 - 2 ng/mL [place] Comment on above: Digoxin Reference Range: Heart Failure 0.5-0.9 Atrial Fibrillation 0.8-2.0 Magnesiumon 03-10-2019 Magnesium [Mass/Vol] 2.1 mg/dL Normal 1.6-2.6 [facility] Comment on above: Performed By: #### B MP #### [facility] [address] [place] [address] Circuit Board Drafter: Con Oseguera MD Magnesium [Mass/Vol] 2.1 mg/dL 1.6 - 2 .6 mg/dL [place], [place] POC Glucose Fingerstickon Glucose [Mass/Vol] 298 mg/dL High 75 - 110 mg/dL [place], [place] Interpretation and review of laboratory results Abnormal [place] Glucose [Mass/Vol] 88 mg/dL 75 - 110 mg/dL [place] Glucose [Mass/Vol] 120 mg/dL High 75 - 110 mg/dL [place] Interpretation and review of laboratory results Abnormal [place] Glucose [Mass/Vol] 87 mg/dL 75 - 110 mg/dL [place] Basic Metab w/rfx MGon 03-09 (cont.) Normal [facility] Comment on above: Result Comment: Aver age GFR for 70 or more years old: 75 mL/min/1.73sq m Chronic Kidney Disease: <60 mL/min/1.73sq m Kidney failure: <15 mL/min/1.73sq m eGFR calculated using average adult body mass. Additional eGFR calculator available at: http://www.Bocada.QM Power/multiple_crcl_2012.htm Performed By: #### B MP #### [facility] [address] [place] [address] Circuit Board Drafter: Con Oseguera MD Anion gap [Moles/Vol] 15 mmol/L Normal 9-17 [facility] Comment on above: Performed By: #### B MP #### [facility] [address] [place] [address] Circuit Board Drafter: Con Oseguera MD Calcium [Mass/Vol] 10.0 mg/dL Normal 8.6-10.4 [facility] Comment on above: Performed By: #### B MP #### [facility] [address] [place] [address] Circuit Board Drafter: Con Oseguera MD Chloride [Moles/Vol] 98 mmol/L Normal 98-107 [facility] Comment on above: Performed By: #### B MP #### [facility] [address] [place] [address] Circuit Board Drafter: Con Oseguera MD CO2 [Moles/Vol] 24 mmol/L Normal 20-31 [facility] Comment on above: Performed By: #### B MP #### [facility] [address] [place] [address] Circuit Board Drafter: Con Oseguera MD Creatinine [Mass/Vol] 1.54 mg/dL High 0.70-1.20 [facility] Comment on above: Performed By: #### B MP #### [facility] [address] [place] [address] Circuit Board Drafter: Con Oseguera MD GFR, Amer 53 mL/min Low >60 [facility] Comment on above: Performed By: #### B MP #### [facility] [address] [place] [address] Circuit Board Drafter: Con Oseguera MD GFR,non Amer 44 mL/min Low >60 [facility] Comment on above: Performed By: #### B MP #### [facility] [address] [place] [address] Circuit Board Drafter: Con Oseguera MD Glucose [Mass/Vol] 119 mg/dL High 70-99 [facility] Comment on above: Performed By: #### B MP #### [facility] [address] [place] [address] Circuit Board Drafter: Con Oseguera MD Potassium [Moles/Vol] 4.4 mmol/L Normal 3.7-5.3 [facility] Comment on above: Performed By: #### B MP #### [facility] [address] [place] [address] Circuit Board Drafter: Con Oseguera MD Sodium [Moles/Vol] 137 mmol/L Normal 135-144 [facility] Comment on above: Performed By: #### B MP #### [facility] [address] [place] [address] Circuit Board Drafter: Con Oseguera MD Urea nitrogen [Mass/Vol] 22 mg/dL Normal 8-23 [facility] Comment on above: Performed By: #### B MP #### [facility] [address] [place] [address] Circuit Board Drafter: Con Oseguera MD BUN/CRE Ratio NOT REPORTED Normal 9-20 [facility] Comment on above: Performed By: #### B MP #### [facility] [address] [place] [address] Circuit Board Drafter: Con Oseguera MD Staging: NOT REPORTED Normal [facility] Comment on above: Performed By: #### B MP #### [facility] [address] [place] [address] Circuit Board Drafter: Con Oseguera MD Basic Metabolic Panel w/ Ref milagros to MGon 03-09-2019 Anion gap [Moles/Vol] 15 mmol/L 9 - 17 mmol/L [place] Bun/Cre Ratio NOT REPORTED [place], [place] Calcium [Mass/Vol] 10.0 mg/dL 8.6 - 10. 4 mg/dL [place] Chloride [Moles/Vol] 98 mmol/L 98 - 10 7 mmol/L [place] CO2 [Moles/Vol] 24 mmol/L 20 - 31 mmol/L [place] Creatinine [Mass/Vol] 1.54 mg/dL High 0.7 - 1.2 mg/dL [place] GFR 53 mL/min Low >60 [place] GFR Non- 44 mL/min Low >60 [place] GFR/1.73 sq M predicted among non-blacks MDRD (S/P/Bld) [Vol rate/Area] [place] Comment on above: Average GFR for 70 o r more years old: 75 mL/min/1.73sq m Chronic Kidney Disease: <60 mL/min/1.73sq m Kidney failure: <15 mL/min/1.73sq m eGFR calculated using average adult body mass. Additional eGFR calculator available at: http://www.Amartus/multiple_crcl_2012.htm GFR/1.73 sq M predicted among non-blacks MDRD (S/P/Bld) [Vol rate/Area] NOT REPORTED [place], [place] Glucose [Mass/Vol] 119 mg/dL High 70 - 99 mg/dL [place], [place] Interpretation and review of laboratory results Abnormal [place] Potassium [Moles/Vol] 4.4 mmol/L 3.7 - 5.3 mmol/L [place] Sodium [Moles/Vol] 137 mmol/L 135 - 144 mmol/L [place] Urea nitrogen [Mass/Vol] 22 mg/dL 8 - 23 mg/dL [place] Cult,Urine,Cathon 03-09-2019 Cult,Urine,Cath Specimen Description .CATHETERIZED URINE Special Requests NOT REPORTED Culture KLEBSIELLA PNEUMONIAE >[id number] CFU/ML Report Status FINAL 03/09/2019 SUSCEPTIBILITY Organism [...] <=20 SUSCEPTIBLE Piperacillin/Tazobact am <=4 SUSCEPTIBLE Normal [facility] Comment on above: Performed By: #### B MP #### [facility] [address] [place] [address] Circuit Board Drafter: Con Oseguera MD POC Glucose Fingerstickon Glucose [Mass/Vol] 199 mg/dL High 75 - 110 mg/dL [place] Interpretation and review of laboratory results Abnormal [place] Glucose [Mass/Vol] 296 mg/dL High 75 - 110 mg/dL [place] Interpretation and review of laboratory results Abnormal [place] Glucose [Mass/Vol] 299 mg/dL High 75 - 110 mg/dL [place] Interpretation and review of laboratory results Abnormal [place] Glucose [Mass/Vol] 124 mg/dL High 75 - 110 mg/dL [place] Interpretation and review of laboratory results Abnormal [place] Urine culture via catheteron 03-09-2019 Culture KLEBSIELLA PNEUMONIA E >[id number] CFU/ML Abnormal [place] Interpretation and review of laboratory results Abnormal [place] Special Requests NOT REPORTED [place] Specimen Description .CATHETERIZED URINE [place] Basic Metab w/rfx MGon 03-08 (cont.) Normal [facility] Comment on above: Result Comment: Aver age GFR for 70 or more years old: 75 mL/min/1.73sq m Chronic Kidney Disease: <60 mL/min/1.73sq m Kidney failure: <15 mL/min/1.73sq m eGFR calculated using average adult body mass. Additional eGFR calculator available at: http://www.Bocada.QM Power/multiple_crcl_2012.htm Performed By: #### B MP #### [facility] [address] [place] [address] Circuit Board Drafter: Con Oseguera MD Anion gap [Moles/Vol] 11 mmol/L Normal 9-17 [facility] Comment on above: Performed By: #### B MP #### [facility] [address] [place] [address] Circuit Board Drafter: Con Oseguera MD Calcium [Mass/Vol] 9.3 mg/dL Normal 8.6-10.4 [facility] Comment on above: Performed By: #### B MP #### [facility] [address] [place] [address] Circuit Board Drafter: Con Oseguera MD Chloride [Moles/Vol] 100 mmol/L Normal 98-107 [facility] Comment on above: Performed By: #### B MP #### [facility] [address] [place] [address] Circuit Board Drafter: Con Oseguera MD CO2 [Moles/Vol] 28 mmol/L Normal 20-31 [facility] Comment on above: Performed By: #### B MP #### [facility] [address] [place] [address] Circuit Board Drafter: Con Oseguera MD Creatinine [Mass/Vol] 1.57 mg/dL High 0.70-1.20 [facility] Comment on above: Performed By: #### B MP #### [facility] [address] [place] [address] Circuit Board Drafter: Con Oseguera MD GFR, Amer 52 mL/min Low >60 [facility] Comment on above: Performed By: #### B MP #### [facility] [address] [place] [address] Circuit Board Drafter: Con Oseguera MD GFR,non Amer 43 mL/min Low >60 [facility] Comment on above: Performed By: #### B MP #### [facility] [address] [place] [address] Circuit Board Drafter: Con Oseguera MD Glucose [Mass/Vol] 75 mg/dL Normal 70-99 [facility] Comment on above: Performed By: #### B MP #### [facility] [address] [place] [address] Circuit Board Drafter: Con Oseguera MD Potassium [Moles/Vol] 4.6 mmol/L Normal 3.7-5.3 [facility] Comment on above: Performed By: #### B MP #### [facility] [address] [place] [address] Circuit Board Drafter: Con Oseguera MD Sodium [Moles/Vol] 139 mmol/L Normal 135-144 [facility] Comment on above: Performed By: #### B MP #### [facility] [address] [place] [address] Circuit Board Drafter: Con Oseguera MD Urea nitrogen [Mass/Vol] 27 mg/dL High 8-23 [facility] Comment on above: Performed By: #### B MP #### [facility] [address] [place] [address] Circuit Board Drafter: Con Oseguera MD BUN/CRE Ratio NOT REPORTED Normal 9-20 [facility] Comment on above: Performed By: #### B MP #### [facility] [address] [place] [address] Circuit Board Drafter: Con Oseguera MD Staging: NOT REPORTED Normal [facility] Comment on above: Performed By: #### B MP #### [facility] [address] [place] [address] Circuit Board Drafter: Con Oseguera MD Basic Metabolic Panel w/ Ref milagros to MGon 03-08-2019 Anion gap [Moles/Vol] 11 mmol/L 9 - 17 mmol/L [place] Bun/Cre Ratio NOT REPORTED [place] Calcium [Mass/Vol] 9.3 mg/dL 8.6 - 10. 4 mg/dL [place] Chloride [Moles/Vol] 100 mmol/L 98 - 10 7 mmol/L [place] CO2 [Moles/Vol] 28 mmol/L 20 - 31 mmol/L [place] Creatinine [Mass/Vol] 1.57 mg/dL High 0.7 - 1.2 mg/dL [place] GFR 52 mL/min Low >60 [place] GFR Non- 43 mL/min Low >60 [place] GFR/1.73 sq M predicted among non-blacks MDRD (S/P/Bld) [Vol rate/Area] [place] Comment on above: Average GFR for 70 o r more years old: 75 mL/min/1.73sq m Chronic Kidney Disease: <60 mL/min/1.73sq m Kidney failure: <15 mL/min/1.73sq m eGFR calculated using average adult body mass. Additional eGFR calculator available at: http://www.Bocada.QM Power/multiple_crcl_2012.htm GFR/1.73 sq M predicted among non-blacks MDRD (S/P/Bld) [Vol rate/Area] NOT REPORTED [place] Glucose [Mass/Vol] 75 mg/dL 70 - 99 mg/dL [place] Interpretation and review of laboratory results Abnormal [place] Potassium [Moles/Vol] 4.6 mmol/L 3.7 - 5.3 mmol/L [place] Sodium [Moles/Vol] 139 mmol/L 135 - 144 mmol/L [place] Urea nitrogen [Mass/Vol] 27 mg/dL High 8 - 23 mg/dL [place] EKG 12 Leadon 03-08-2019 Atrial Rate 49 BPM [place] Q-T Interval 406 ms [place] QRS Duration 80 ms [place] QTc Calculation (Bazett) 465 ms [place] R [place] -13 degrees [place], [place] T [place] 40 degrees [place] Ventricular Rate 79 BPM [place], [place] Stan, Mhpn Incoming Ekg Results From [facility] - 03/08/2019 10:18 AM EDT Atrial fibrillation Abnormal ECG When compared with ECG of 07-MAR-2019 17:56, (unconfirmed) No significant change was found [place] Atrial fibrillation Abnormal ECG When compared with ECG of 07-MAR-2019 17:56, (unconfirmed) No significant change was found [place] Hemoglobin A1Con 03-08-2019 HbA1c (Bld) [Mass fraction] 157 mg/dL Normal [facility] Comment on above: Result Comment: The ADA and AACC recommend providing the estimated average glucose result to permit better patient understanding of their HBA1c result. Performed By: #### B MP #### [facility] [address] [place], [place] [id number] Circuit Board Drafter: Con Oseguera MD HbA1c (Bld) [Mass fraction] 7.1 % High 4.0-6.0 [facility] Comment on above: Performed By: #### B MP #### [facility] [address] [place] [address] Circuit Board Drafter: Con Oseguera MD Glucose [Mass/Vol] 157 mg/dL [place] Comment on above: The ADA and AACC rec ommend providing the estimated average glucose result to permit better patient understanding of their HBA1c result. HbA1c (Bld) [Mass fraction] 7.1 % High 4 - 6 % [place] Interpretation and review of laboratory results Abnormal [place] POC Glucose Fingerstickon Glucose [Mass/Vol] 220 mg/dL High 75 - 110 mg/dL [place] Interpretation and review of laboratory results Abnormal [place] Glucose [Mass/Vol] 144 mg/dL High 75 - 110 mg/dL [place] Interpretation and review of laboratory results Abnormal [place] Glucose [Mass/Vol] 325 mg/dL High 75 - 110 mg/dL [place] Interpretation and review of laboratory results Abnormal [place] Glucose [Mass/Vol] 138 mg/dL High 75 - 110 mg/dL [place] Interpretation and review of laboratory results Abnormal [place] Glucose [Mass/Vol] 63 mg/dL Low 75 - 110 mg/dL [place] Interpretation and review of laboratory results Abnormal [place] Brain Natri. Peptideon 03-07 Natriuretic peptide B (Bld) [Mass/Vol] Pro-BNP Reference Range: Normal [facility] Comment on above: Result Comment: Rule Out: <300 Miranda Zone: Age <50 300-450 Age 50-75 300-900 Age >75 300-1800 Usually represents mild to moderate HF but other cardiopulmonary causes cannot be ruled out. Rule In: Age <50 >450 Age 50-75 >900 Age >75 >1800 Performed By: #### B MP #### [facility] [address] [facility] [place], [place] [id number] Circuit Board Drafter: Con Oseguera MD Natriuretic peptide B (Bld) [Mass/Vol] 946 pg/mL High <300 [facility] Comment on above: Result Comment: Pro- BNP results cannot be compared to BNP results. Performed By: #### B MP #### [facility] [address] [place], [place] [id number] Circuit Board Drafter: Con Oseguera MD Brain Natriuretic Peptideon 03-07-2019 Interpretation and review of laboratory results Abnormal [place] Natriuretic peptide B (Bld) [Mass/Vol] Pro-BNP Reference Range: [place] Comment on above: Rule Out: <300 Miranda Zone: Age <50 300-450 Age 50-75 300-900 Age >75 300-1800 Usually represents mild to moderate HF but other cardiopulmonary causes cannot be ruled out. Rule In: Age <50 >450 Age 50-75 >900 Age >75 >1800 Natriuretic peptide B (Bld) [Mass/Vol] 946 pg/mL High <300 [place] Comment on above: Pro-BNP results darrius ot be compared to BNP results. CBC Auto Differentialon 02-25 Basophils (Bld) [#/Vol] 0.10 10*3/uL [place] Basophils/100 WBC (Bld) 1 % 0 - 2 % [place] Differential Type NOT REPORTED [place] Eosinophils (Bld) [#/Vol] 0.10 10*3/uL [place] Eosinophils/100 WBC (Bld) 1 % 0 - 4 % [place] Erythrocyte distribution width (RBC) [Ratio] 29.0 % High 11.5 - 14.9 % [place] Hematocrit (Bld) [Volume fraction] 33.5 % Low 41 - 53 % [place] Hemoglobin (Bld) [Mass/Vol] 10.5 g/dL Low 13.5 - 17.5 g/dL [place] Interpretation and review of laboratory results Abnormal [place] Lymphocytes (Bld) [#/Vol] 0.72 10*3/uL Low [place] Lymphocytes/100 WBC (Bld) 7 % Low 24 - 44 % [place] MCH (RBC) [Entitic mass] 22.4 pg Low 26 - 34 pg [place] MCHC (RBC) [Mass/Vol] 31.2 g/dL 31 - 37 g/dL [place] MCV (RBC) [Entitic vol] 71.7 fL Low 80 - 100 fL [place] Monocytes (Bld) [#/Vol] 0.72 10*3/uL [place] Monocytes/100 WBC (Bld) 7 % 1 - 7 % [place] Morphology Theo (Bld) [Interp] ANISOCYTOSIS PRESENT [place] Morphology Theo (Bld) [Interp] HYPOCHROMIA PRESENT [place] Morphology Theo (Bld) [Interp] MICROCYTOSIS PRESENT [place] Platelet mean volume (Bld) [Entitic vol] 8.6 fL 6 - 12 fL [place] Platelets (Bld) [#/Vol] NOT REPORTED [place] Platelets (Bld) [#/Vol] 273 10*3/uL [place] RBC (Bld) [#/Vol] 4.68 10*6/uL 4.5 - 5.9 m/uL M [place], [place] RBC morphology finding Nom (Bld) NOT REPORTED [place] Segmented neutrophils/100 WBC (Bld) 84 % High 36 - 66 % [place] Segs Absolute 8.66 [place] WBC (Bld) [#/Vol] NOT REPORTED per 100 WBC [place] WBC (Bld) [#/Vol] 10.3 10*3/uL [place] WBC Morphology NOT REPORTED [place] CBC with Diffon 03-07-2019 Abs. Basophil 0.10 k/uL Normal 0.0-0.2 [facility] Comment on above: Performed By: #### B MP #### [facility] [address] [place] [address] Circuit Board Drafter: Con Oseguera MD Abs.Neutrophil (Seg) 8.66 k/uL Normal 1.3-9.1 [facility] Comment on above: Performed By: #### B MP #### [facility] [address] [place] [address] Circuit Board Drafter: Con Oseguera MD Basophils/100 WBC (Bld) 1 % Normal 0-2 [facility] Comment on above: Performed By: #### B MP #### [facility] [address] [place] [address] Circuit Board Drafter: Con Oseguera MD Eosinophils (Bld) [#/Vol] 0.10 10*3/uL Normal 0.0-0.4 [facility] Comment on above: Performed By: #### B MP #### [facility] [address] [place] [address] Circuit Board Drafter: Con Oseguera MD Eosinophils/100 WBC (Bld) 1 % Normal 0-4 [facility] Comment on above: Performed By: #### B MP #### [facility] [address] [place] [address] Circuit Board Drafter: Con Oseguera MD Lymphocytes (Bld) [#/Vol] 0.72 10*3/uL Low 1.0-4.8 [facility] Comment on above: Performed By: #### B MP #### [facility] [address] [facility] [place] [address] Circuit Board Drafter: Con Oseguera MD Lymphocytes/100 WBC (Bld) 7 % Low 24-44 [facility] Comment on above: Performed By: #### B MP #### [facility] [place] [address] Circuit Board Drafter: Con Oseguera MD Monocytes (Bld) [#/Vol] 0.72 10*3/uL Normal 0.1-1.3 [facility] Comment on above: Performed By: #### B MP #### [facility] [address] [facility] [place] [address] Circuit Board Drafter: Con Oseguera MD Monocytes/100 WBC (Bld) 7 % Normal 1-7 [facility] Comment on above: Performed By: #### B MP #### [facility] [address] [facility] [place] [address] Circuit Board Drafter: Con Oseguera MD Morphology Theo (Bld) [Interp] ANISOCYTOSIS PRESENT Normal [facility] Comment on above: Result Comment: MICR OCYTOSIS PRESENT HYPOCHROMIA PRESENT Performed By: #### B MP #### [facility] [address] [place] [address] Circuit Board Drafter: Con Oseguear MD Neutrophil (Seg) 84 % High 36-66 [facility] Comment on above: Performed By: #### B MP #### [facility] [place] [address] Circuit Board Drafter: Con Oseguera MD Erythrocyte distribution width (RBC) [Ratio] 29.0 % High 11.5-14.9 [facility] Comment on above: Performed By: #### B MP #### [facility] [place] [address] Circuit Board Drafter: Con Oseguera MD Hematocrit (Bld) [Volume fraction] 33.5 % Low 41-53 [facility] Comment on above: Performed By: #### B MP #### [facility] [place] [address] Circuit Board Drafter: Con Oseguera MD Hemoglobin (Bld) [Mass/Vol] 10.5 g/dL Low 13.5-17.5 [facility] Comment on above: Performed By: #### B MP #### [facility] [place] [address] Circuit Board Drafter: Con Oseguera MD MCH (RBC) [Entitic mass] 22.4 pg Low 26-34 [facility] Comment on above: Performed By: #### B MP #### [facility] [place] [address] Circuit Board Drafter: Con Oseguera MD MCHC (RBC) [Mass/Vol] 31.2 g/dL Normal 31-37 [facility] Comment on above: Performed By: #### B MP #### [facility] [address] [place] [address] Circuit Board Drafter: Con Oseguera MD MCV (RBC) [Entitic vol] 71.7 fL Low 80-100 [facility] Comment on above: Performed By: #### B MP #### [facility] [address] [place] [address] Circuit Board Drafter: Con Oseguera MD Platelet mean volume (Bld) [Entitic vol] 8.6 fL Normal 6.0-12.0 [facility] Comment on above: Performed By: #### B MP #### [facility] [place] [address] Circuit Board Drafter: Con Oseguera MD Platelets (Bld) [#/Vol] 273 10*3/uL Normal 150-450 [facility] [place] Comment on above: Performed By: #### B MP #### [facility] [place] [address] Circuit Board Drafter: Con Oseguera MD RBC (Bld) [#/Vol] 4.68 10*6/uL Normal 4.5-5.9 [facility] [place] Comment on above: Performed By: #### B MP #### [facility] [address] [place] [address] [employer] Board Drafter: Con Oseguera MD WBC (Bld) [#/Vol] 10.3 10*3/uL Normal 3.5-11.0 [facility] Comment on above: Performed By: #### B MP #### [facility] [place] [address] Circuit Board Drafter: Con Oseguera MD Abs.Imm.Granulocyte NOT REPORTED Normal 0.00-0.30 [facility] Comment on above: Performed By: #### B MP #### [facility] [address] [facility] [place] [address] Circuit Board Drafter: Con Oseguera MD Auto Diff Performed NOT REPORTED Normal [facility] Comment on above: Performed By: #### B MP #### [facility] [address] [facility] [place] [address] [employer] Board Drafter: Con Oseguera MD Immature granulocytes (Bld) [#/Vol] NOT REPORTED Normal 0 [facility] Comment on above: Performed By: #### B MP #### [facility] [address] [facility] [place] [address] [employer] Board Drafter: Con Oseguera MD NRBC Automated NOT REPORTED Normal [facility] Comment on above: Performed By: #### B MP #### [facility] [address] [facility] [place] [address] [employer] Board Drafter: Con Oseguera MD Platelets (Bld) [#/Vol] NOT REPORTED Normal [facility] Comment on above: Performed By: #### B MP #### [facility] [address] [facility] [place] [address] [employer] Board Drafter: Con Oseguera MD RBC morphology finding Nom (Bld) NOT REPORTED Normal [facility] Comment on above: Performed By: #### B MP #### [facility] [address] [facility] [place] [address] Circuit Board Drafter: Con Oseguera MD WBC Morphology NOT REPORTED Normal [facility] Comment on above: Performed By: #### B MP #### [facility] [address] [place] [address] Circuit Board Drafter: Con Oseguera MD CT ABDOMEN PELVIS WO [...] Del Angel MD 03/07/19 Final result Normal [facility] EXAMINATION: CT OF THE ABDOMEN AND PELVIS [...] Degenerative changes of the spine are present. [employer] [facility], [place] Bibasilar consolidative changes and right middle lobe pulmonary infiltrates, consistent with pneumonia in the appropriate clinical setting. Mild left pleural effusion. Diverticulosis coli, without evidence of diverticulitis or colitis. Prostatomegaly. [facility], [place] Stan, M[facility] Incoming Radiant Results From Mineralist/Zakaz.[facility] - 03/07/2019 7:00 PM EDT EXAMINATION: CT [...] without evidence of diverticulitis or colitis. Prostatomegaly. [facility], [place] Comp Metabolic Profon 2018 (cont.) Normal [facility] Comment on above: Result Comment: Aver age GFR for 70 or more years old: 75 mL/min/1.73sq m Chronic Kidney Disease: <60 mL/min/1.73sq m Kidney failure: <15 mL/min/1.73sq m eGFR calculated using average adult body mass. Additional eGFR calculator available at: http://www.Bocada.QM Power/multiple_crcl_2012.htm Performed By: #### B MP #### [facility] [address] [facility]. [place], [place] [id number] Circuit Board Drafter: Con Oseguera MD Albumin [Mass/Vol] 3.8 g/dL Normal 3.5-5.2 [facility] Comment on above: Performed By: #### B MP #### [facility] [address] [facility] [place] [address] Circuit Board Drafter: Con Oseguera MD Alkaline Phos 166 U/L High 40-129 [facility] Comment on above: Performed By: #### B MP #### [facility] [address] [place] [address] Circuit Board Drafter: Con Oseguera MD ALT [Catalytic activity/Vol] 28 U/L Normal 5-41 [facility] Comment on above: Performed By: #### B MP #### [facility] [address] [place] [address] [employer] Board Drafter: Con Oseguera MD Anion gap [Moles/Vol] 12 mmol/L Normal 9-17 [facility] Comment on above: Performed By: #### B MP #### [facility] [address] [place] [address] [employer] Board Drafter: Con Oseguera MD AST [Catalytic activity/Vol] 26 U/L Normal <40 [facility] Comment on above: Performed By: #### B MP #### [facility] [address] [place] [address] Circuit Board Drafter: Con Oseguera MD Bilirubin Ql (U) 0.20 mg/dL Low 0.3-1.2 [facility] Comment on above: Performed By: #### B MP #### [facility] [address] [place] [address] Circuit Board Drafter: Con Oseguera MD Calcium [Mass/Vol] 9.5 mg/dL Normal 8.6-10.4 [facility] Comment on above: Performed By: #### B MP #### [facility] [address] [place] [address] Circuit Board Drafter: Con Oseguera MD Chloride [Moles/Vol] 98 mmol/L Normal 98-107 [facility] Comment on above: Performed By: #### B MP #### [facility] [address] [place] [address] Circuit Board Drafter: Con Oseguera MD CO2 [Moles/Vol] 28 mmol/L Normal 20-31 [facility] Comment on above: Performed By: #### B MP #### [facility] [address] [place] [address] Circuit [employer] Drafter: Con Oseguera MD Creatinine [Mass/Vol] 1.70 mg/dL High 0.70-1.20 [facility] Comment on above: Performed By: #### B MP #### [facility] [address] [place] [address] Circuit Board Drafter: Con Oseguera MD GFR, Amer 47 mL/min Low >60 [facility] Comment on above: Performed By: #### B MP #### [facility] [address] [place] [address] [employer] Board Drafter: Con Oseguera MD GFR,non Amer 39 mL/min Low >60 [facility] Comment on above: Performed By: #### B MP #### [facility] [address] [place] [address] Circuit Board Drafter: Con Oseguera MD Glucose [Mass/Vol] 63 mg/dL Low 70-99 [facility] Comment on above: Performed By: #### B MP #### [facility] [address] [place] [address] Circuit Board Drafter: Con Oseguera MD Potassium [Moles/Vol] 4.6 mmol/L Normal 3.7-5.3 [facility] Comment on above: Performed By: #### B MP #### [facility] [address] [place] [address] Circuit Board Drafter: Con Oseguera MD Protein [Mass/Vol] 6.8 g/dL Normal 6.4-8.3 [facility] Comment on above: Performed By: #### B MP #### [facility] [address] [place] [address] Circuit Board Drafter: Con Oseguera MD Sodium [Moles/Vol] 138 mmol/L Normal 135-144 [facility] Comment on above: Performed By: #### B MP #### [facility] [address] [place] [address] Circuit Board Drafter: Con Oseguera MD Urea nitrogen [Mass/Vol] 30 mg/dL High 8-23 [facility] Comment on above: Performed By: #### B MP #### [facility] [address] [place] [address] [employer] Drafter: Con Oseguera MD Albumin/Globulin [Mass ratio] NOT REPORTED Normal 1.0-2.5 [facility] Comment on above: Performed By: #### B MP #### [facility] [address] [place] [address] Circuit Board Drafter: Con Oseguera MD BUN/CRE Ratio NOT REPORTED Normal 9-20 [facility] Comment on above: Performed By: #### B MP #### [facility] [address] [place] [address] Circuit Board Drafter: Con Oseguera MD Staging: NOT REPORTED Normal [facility] Comment on above: Performed By: #### B MP #### [facility] [address] [place] [address] Circuit Board Drafter: Con Oseguera MD Comprehensive Metabolic Pane blanca 03-07-2019 Albumin [Mass/Vol] 3.8 g/dL 3.5 - 5.2 g/dL [facility], [place] Albumin/Globulin [Mass ratio] NOT REPORTED [facility], [place] ALP [Catalytic activity/Vol] 166 U/L High 40 - 129 U/L [place] ALT [Catalytic activity/Vol] 28 U/L 5 - 41 U/L [place] Anion gap [Moles/Vol] 12 mmol/L 9 - 17 mmol/L [place] AST [Catalytic activity/Vol] 26 U/L <40 [place] Bilirubin Ql (U) 0.20 mg/dL Low 0.3 - 1.2 mg/dL [place] Bun/Cre Ratio NOT REPORTED [place], [place] Calcium [Mass/Vol] 9.5 mg/dL 8.6 - 10. 4 mg/dL [place] Chloride [Moles/Vol] 98 mmol/L 98 - 10 7 mmol/L [place] CO2 [Moles/Vol] 28 mmol/L 20 - 31 mmol/L [place] Creatinine [Mass/Vol] 1.7 mg/dL High 0.7 - 1.2 mg/dL [place] GFR 47 mL/min Low >60 [place] GFR Non- 39 mL/min Low >60 [place] GFR/1.73 sq M predicted among non-blacks MDRD (S/P/Bld) [Vol rate/Area] NOT REPORTED [place] GFR/1.73 sq M predicted among non-blacks MDRD (S/P/Bld) [Vol rate/Area] [place] Comment on above: Average GFR for 70 o r more years old: 75 mL/min/1.73sq m Chronic Kidney Disease: <60 mL/min/1.73sq m Kidney failure: <15 mL/min/1.73sq m eGFR calculated using average adult body mass. Additional eGFR calculator available at: http://www.Bocada.QM Power/multiple_crcl_2011.htm Glucose [Mass/Vol] 63 mg/dL Low 70 - 99 mg/dL [place] Potassium [Moles/Vol] 4.6 mmol/L 3.7 - 5.3 mmol/L [place] Protein [Mass/Vol] 6.8 g/dL 6.4 - 8.3 g/dL [place], [place] Sodium [Moles/Vol] 138 mmol/L 135 - 144 mmol/L [place] Urea nitrogen [Mass/Vol] 30 mg/dL High 8 - 23 mg/dL [place] Lipaseon 03-07-2019 Lipase [Catalytic activity/Vol] 83 U/L High 13-60 [facility] Comment on above: Performed By: #### B MP #### [facility] [address] [place] [address] Circuit Board Drafter: Con Oseguera MD Lipase [Catalytic activity/Vol] 83 U/L High 13 - 60 U/L [place] Microscopic Urinalysison Amorphous, UA NOT REPORTED None [place], [place] Bacteria, UA MODERATE Abnormal None [place] Casts UA NOT REPORTED /LPF [place] Crystals UA NOT REPORTED None /HPF [place] Epithelial Cells UA 0 TO 2 /HPF [place] Interpretation and review of laboratory results Abnormal [place] Mucus, UA NOT REPORTED None [place] Other Observations UA NOT REPORTED NOT REQ. [place] RBC (U) [#/Vol] 10 TO 20 /HPF [place], [place] Renal Epithelial, Urine NOT REPORTED 0 /HPF [place] Trichomonas, UA NOT REPORTED None [place] WBC, UA 20 TO 50 /HPF [place] Yeast, UA NOT REPORTED None [place] - [place] Otheron 03-07-2019 Immature granulocytes (Bld) [#/Vol] NOT REPORTED [place] Interpretation and review of laboratory results Abnormal [place] POC Glucose Fingerstickon Glucose [Mass/Vol] 167 mg/dL High 75 - 110 mg/dL [place] Interpretation and review of laboratory results Abnormal [place] Glucose [Mass/Vol] 124 mg/dL High 75 - 110 mg/dL [place] Interpretation and review of laboratory results Abnormal [place] POCT Glucoseon 03-07-2019 Glucose [Mass/Vol] 124 mg/dL [place] Interpretation and review of laboratory results Normal [place] QC OK? y [place] Troponinon 03-07-2019 Troponin I.cardiac [Mass/Vol] 27 ng/L High 0-22 [facility] Comment on above: Result Comment: High Sensitivity Troponin values cannot be compared with other Troponin methodologies. Patients with high levels of Biotin oral intake (i.e >5mg/day) may have falsely decreased Troponin levels. Samples collected within 8 hours of biotin intake may require additional information for diagnosis. Performed By: #### B MP #### [facility] [address] [facility] [place] [address] Circuit Board Drafter: Con Oseguera MD Troponin I.cardiac [Mass/Vol] 29 ng/L High 0-22 [facility] Comment on above: Result Comment: High Sensitivity Troponin values cannot be compared with other Troponin methodologies. Patients with high levels of Biotin oral intake (i.e >5mg/day) may have falsely decreased Troponin levels. Samples collected within 8 hours of biotin intake may require additional information for diagnosis. Performed By: #### B MP #### [facility] [address] [facility]. [place], [place] [id number] Circuit Board Drafter: Con Oseguera MD Interpretation and review of laboratory results Abnormal [place] Troponin I.cardiac [Mass/Vol] NOT REPORTED [place] Troponin T.cardiac [Mass/Vol] NOT REPORTED <0.03 ng/mL [place] Troponin, High Sensitivity 27 ng/L High 0 - 22 ng/L [place] Comment on above: High Sensitivity Troponin values cannot be compared with other Troponin methodologies. Patients with high levels of Biotin oral intake (i.e >5mg/day) may have falsely decreased Troponin levels. Samples collected within 8 hours of biotin intake may require additional information for diagnosis. Troponin I.cardiac [Mass/Vol] NOT REPORTED Normal [facility] Comment on above: Performed By: #### B MP #### [facility] [address] [facility] [place] [address] Circuit Board Drafter: Con Oseguera MD Troponin I.cardiac [Mass/Vol] NOT REPORTED Normal <0.03 [place] Comment on above: Performed By: #### B MP #### [facility] [address] [facility] [place] [address] Circuit Board Drafter: Con Oseguera MD Interpretation and review of laboratory results Abnormal [place] Troponin T.cardiac [Mass/Vol] NOT REPORTED <0.03 ng/mL [place] Troponin, High Sensitivity 29 ng/L High 0 - 22 ng/L [place] Comment on above: High Sensitivity Troponin values cannot be compared with other Troponin methodologies. Patients with high levels of Biotin oral intake (i.e >5mg/day) may have falsely decreased Troponin levels. Samples collected within 8 hours of biotin intake may require additional information for diagnosis. UA w/Reflex Cultureon 2018 Acetoacetic Acid,Ur Negative Normal NEG [facility] Comment on above: Performed By: #### B MP #### [facility] [address] [facility] [place] [address] Circuit Board Drafter: Con Oseguera MD Bilirubin, SemiQt,Ur Negative Normal NEG [facility] Comment on above: Performed By: #### B MP #### [facility] [place] [address] Circuit Board Drafter: Con Oseguera MD Color (U) YELLOW Normal YEL [facility] Comment on above: Performed By: #### B MP #### [facility] [address] [place] [address] Circuit Board Drafter: Con Oseguera MD Glucose Ql (U) Negative Normal NEG [facility] Comment on above: Performed By: #### B MP #### [facility] [address] [place] [address] [employer] Board Drafter: Con Oseguera MD Hemoglobin, Ur MOD Abnormal NEG [facility] Comment on above: Performed By: #### B MP #### [facility] [address] [place] [address] Circuit Board Drafter: Con Oseguera MD Leukocyte esterase Test strip Ql (U) LARGE Abnormal NEG [facility] Comment on above: Performed By: #### B MP #### [facility] [address] [place] [address] Circuit Board Drafter: Con Oseguera MD Nitrite,Ur Negative Normal NEG [facility] Comment on above: Performed By: #### B MP #### [facility] [address] [facility] [place] [address] Circuit Board Drafter: Con Oseguera MD pH (U) 6.5 [pH] Normal 5.0-8.0 [facility] Comment on above: Performed By: #### B MP #### [facility] [address] [facility] [place] [address] Circuit Board Drafter: Con Oseguera MD Protein Ql (U) 2+ Abnormal NEG [facility] Comment on above: Performed By: #### B MP #### [facility] [place] [address] Circuit Board Drafter: Con Oseguera MD Specific gravity (U) [Rel density] 1.017 Normal 1.000-1.030 [facility] Comment on above: Performed By: #### B MP #### [facility] [place] [address] Circuit Board Drafter: Con Oseguera MD Turbidity CLOUDY Abnormal CLEAR [facility] Comment on above: Performed By: #### B MP #### [facility] [place] [address] Circuit Board Drafter: Con Oseguera MD Urobilinogen,Ur Normal Normal NORM [facility] Comment on above: Performed By: #### B MP #### [facility] [address] [place] [address] Circuit Board Drafter: Con Oseguera MD Comment NOT REPORTED Normal [facility] Comment on above: Performed By: #### B MP #### [facility] [address] [place] [address] Circuit Board Drafter: Con Oseguera MD Urinalysis Reflex to Culture on 03-07-2019 Bilirubin Urine Negative NEGATIVE [facility] [place], [place] Color, UA YELLOW YELLOW [facility] [place] Glucose, Ur Negative NEGATIVE [facility] [place] Interpretation and review of laboratory results Abnormal [facility] [place] Ketones Ql (U) Negative NEGATIVE [facility] [place] Leukocyte esterase Test strip Ql (U) LARGE Abnormal NEGATIVE [facility] [place] Nitrite, Urine Negative NEGATIVE [facility] [place] pH, UA 6.5 [facility] [place] Protein (U) [Mass/Vol] 2+ Abnormal NEGATIVE [facility] [place] Specific [place], UA 1.017 [facility] Turbidity UA CLOUDY Abnormal CLEAR [facility] [place] Urinalysis Comments NOT REPORTED [facility] Urine Hgb MOD Abnormal NEGATIVE [facility] [place] Urobilinogen, Urine Normal Normal [facility] [place] Urinalysis,Microon 9 ----- Normal [facility] Comment on above: Performed By: #### B MP #### [facility] [address] [facility] [place] [address] Circuit Board Drafter: Con Oseguera MD Bacteria LM.HPF (Urine sed) [#/Area] MODERATE Abnormal NONE [facility] Comment on above: Performed By: #### B MP #### [facility] [address] [place] [address] Circuit Board Drafter: Con Oseguera MD Epithelial cells LM.HPF (Urine sed) [#/Area] 0 TO 2 Normal [facility] Comment on above: Performed By: #### B MP #### [facility] [place] [address] Circuit Board Drafter: Con Oseguera MD RBC (U) [#/Vol] 10 TO 20 Normal [facility] Comment on above: Performed By: #### B MP #### [facility] [place] [address] Circuit Board Drafter: Con Oseguera MD WBC (U) [#/Vol] 20 TO 50 Normal [facility] Comment on above: Performed By: #### B MP #### [facility] [address] [place] [address]. [place] [address] Circuit Board Drafter: Con Oseguera MD Amorphous sediment LM Ql (Urine sed) NOT REPORTED Normal NONE [facility] Comment on above: Performed By: #### B MP #### [facility] [address] [place] [address]. [place] [address] Circuit Board Drafter: Con Oseguera MD Casts LM.LPF (Urine sed) [#/Area] NOT REPORTED Normal [facility] Comment on above: Performed By: #### B MP #### [facility] [address] [place] [address]. [place] [address] Circuit Board Drafter: Con Oseguera MD Crystals LM Nom (Urine sed) NOT REPORTED Normal NONE [facility] Comment on above: Performed By: #### B MP #### [facility] [address] [place] [address]. [place] [address] Circuit Board Drafter: Con Oseguera MD Epithelial, Renal NOT REPORTED Normal 0 [facility] Comment on above: Performed By: #### B MP #### [facility] [address] [place], [place] [address]. [place] [address] Circuit Board Drafter: Con Oseguera MD Mucus Strands NOT REPORTED Normal NONE [facility] Comment on above: Performed By: #### B MP #### [facility] [address] [facility] [place] [address] Circuit Board Drafter: Con Oseguera MD Other Observations NOT REPORTED Normal NREQ [facility] Comment on above: Performed By: #### B MP #### [facility] [address] [facility] [place] [address] Circuit Board Drafter: Con Oseguera MD Trichomonas NOT REPORTED Normal NONE [facility] Comment on above: Performed By: #### B MP #### [facility] [place] [address] Circuit Board Drafter: Con Oseguera MD Yeast LM Ql (Urine sed) NOT REPORTED Normal [facility] Comment on above: Performed By: #### B MP #### [facility] [place] [address] Circuit Board Drafter: Con Oseguera MD XR CHEST (2 VW)on [...] Yoni Faye MD 03/07/19 Final result Normal [facility] XR CHEST STANDARD (2 VW)on 0 03-07-2019 StanSuzanne ba Incoming Radiant Results From Mineralist/[facility] - 03/07/2019 5:45 PM EDT EXAMINATION: TWO [...] bilaterally. Pneumonia is favored over atypical edema [place] Multifocal airspace disease bilaterally. Pneumonia is favored over atypical edema [place] EXAMINATION: TWO XRA Y VIEWS OF [...] is noted. Small effusions are suggested bilaterally [place], [place] Magnesiumon 12-13-2018 Magnesium [Mass/Vol] 2.1 mg/dL Normal 1.6-2.6 [facility] Comment on above: Performed By: #### B MP #### [facility] [address] [place] [address] [employer] Board Drafter: Con Oseguera MD Basic Metabolic Profon 12-11 (cont.) Normal [facility] Comment on above: Result Comment: Aver age GFR for 70 or more years old: 75 mL/min/1.73sq m Chronic Kidney Disease: <60 mL/min/1.73sq m Kidney failure: <15 mL/min/1.73sq m eGFR calculated using average adult body mass. Additional eGFR calculator available at: http://www.Bocada.com/multiple_crcl_2011.htm Performed By: #### B MP #### [facility] [address] [place] [address] [employer] Board Drafter: Con Oseguera MD Anion gap [Moles/Vol] 13 mmol/L Normal 9-17 [facility] Comment on above: Performed By: #### B MP #### [facility] [address] [place] [address] [employer] Board Drafter: Con Oseguera MD Calcium [Mass/Vol] 8.6 mg/dL Normal 8.6-10.4 [facility] Comment on above: Performed By: #### B MP #### [facility] [address] [place] [address] [employer] Board Drafter: Con Oseguera MD Chloride [Moles/Vol] 100 mmol/L Normal 98-107 [facility] Comment on above: Performed By: #### B MP #### [facility] [address] [place] [address] [employer] Board Drafter: Con Oseguera MD CO2 [Moles/Vol] 22 mmol/L Normal 20-31 [facility] Comment on above: Performed By: #### B MP #### [facility] [address] [place] [address] [employer] Board Drafter: Con Oseguera MD Creatinine [Mass/Vol] 1.02 mg/dL Normal 0.70-1.20 [facility] Comment on above: Performed By: #### B MP #### [facility] [address] [place] [address] [employer] Board Drafter: Con Oseguera MD GFR, Amer >60 Normal >60 [facility] Comment on above: Performed By: #### B MP #### [facility] [address] [place] [address] [employer] Drafter: Con Oseguera MD GFR,non Amer >60 Normal >60 [facility] Comment on above: Performed By: #### B MP #### [facility] [address] [place] [address] [employer] Board Drafter: Con Oseguera MD Glucose [Mass/Vol] 151 mg/dL High 70-99 [facility] Comment on above: Performed By: #### B MP #### [facility] [address] [place] [address] [employer] Drafter: Con Oseguera MD Potassium [Moles/Vol] 4.0 mmol/L Normal 3.7-5.3 [facility] Comment on above: Performed By: #### B MP #### [facility] [address] [place] [address] [employer] Drafter: Con Oseguera MD Sodium [Moles/Vol] 135 mmol/L Normal 135-144 [facility] Comment on above: Performed By: #### B MP #### [facility] [address] [place] [address] [employer] Board Drafter: Con Oseguera MD Urea nitrogen [Mass/Vol] 22 mg/dL Normal 8-23 [facility] Comment on above: Performed By: #### B MP #### [facility] [address] [place] [address] [employer] Board Drafter: Con Oseguera MD BUN/CRE Ratio NOT REPORTED Normal 9-20 [facility] Comment on above: Performed By: #### B MP #### [facility] [address] [place] [address] [employer] Board Drafter: Con Oseguera MD Staging: NOT REPORTED Normal [facility] Comment on above: Performed By: #### B MP #### [facility] [address] [place] [address] [employer] Board Drafter: Con Oseguera MD CBC with Diffon 12-11-2018 Abs. Basophil 0.00 k/uL Normal 0.0-0.2 [facility] Comment on above: Performed By: #### B MP #### [facility] [place] [address] [employer] Board Drafter: Con Oseguera MD Abs.Neutrophil (Seg) 9.27 k/uL High 1.3-9.1 [facility] Comment on above: Performed By: #### B MP #### [facility] [address] [place] [address]. [place] [address] [employer] Drafter: Con Oseguera MD Basophils/100 WBC (Bld) 0 % Normal 0-2 [facility] Comment on above: Performed By: #### B MP #### [facility] [place] [address] [employer] Board Drafter: Con Oseguera MD Eosinophils (Bld) [#/Vol] 0.12 10*3/uL Normal 0.0-0.4 [facility] Comment on above: Performed By: #### B MP #### [facility] [place] [address] [employer] Drafter: Con Oseguera MD Eosinophils/100 WBC (Bld) 1 % Normal 0-4 [facility] Comment on above: Performed By: #### B MP #### [facility] [place] [address] [employer] Drafter: Con Oseguera MD Lymphocytes (Bld) [#/Vol] 1.22 10*3/uL Normal 1.0-4.8 [facility] Comment on above: Performed By: #### B MP #### [facility] [place] [address] [employer] Drafter: Con Oseguera MD Lymphocytes/100 WBC (Bld) 10 % Low 24-44 [facility] Comment on above: Performed By: #### B MP #### [facility] [address] [place] [address] [employer] Drafter: Con Oseguera MD Monocytes (Bld) [#/Vol] 1.59 10*3/uL High 0.1-1.3 [facility] Comment on above: Performed By: #### B MP #### [facility] [address] [place] [address] [employer] Drafter: Con Oseguera MD Monocytes/100 WBC (Bld) 13 % High 1-7 [facility] Comment on above: Performed By: #### B MP #### [facility] [address] [place] [address] [employer] Drafter: Con Oseguera MD Morphology Theo (Bld) [Interp] ANISOCYTOSIS PRESENT Normal [facility] Comment on above: Result Comment: MICR OCYTOSIS PRESENT HYPOCHROMIA PRESENT 1+ POLYCHROMASIA 1+ ECHINOCYTES 1+ ELLIPTOCYTES Performed By: #### B MP #### [facility] [address] [place] [address] [employer] Drafter: Con Oseguera MD Neutrophil (Seg) 76 % High 36-66 [facility] Comment on above: Performed By: #### B MP #### [facility] [address] [place] [address] [employer] Board Drafter: Con Oseguera MD Erythrocyte distribution width (RBC) [Ratio] 18.7 % High 11.5-14.9 [facility] Comment on above: Performed By: #### B MP #### [facility] [address] [place] [address] [employer] Drafter: Con Oseguera MD Hematocrit (Bld) [Volume fraction] 26.2 % Low 41-53 [facility] Comment on above: Performed By: #### B MP #### [facility] [place] [address] [employer] Drafter: Con Oseguera MD Hemoglobin (Bld) [Mass/Vol] 8.1 g/dL Low 13.5-17.5 [facility] Comment on above: Performed By: #### B MP #### [facility] [place] [address] [employer] Board Drafter: Con Oseguera MD MCH (RBC) [Entitic mass] 20.5 pg Low 26-34 [facility] Comment on above: Performed By: #### B MP #### [facility] [place] [address] [employer] Drafter: Con Oseguera MD MCHC (RBC) [Mass/Vol] 30.9 g/dL Low 31-37 [facility] Comment on above: Performed By: #### B MP #### [facility] [place] [address] [employer] Drafter: Con Oseguera MD MCV (RBC) [Entitic vol] 66.4 fL Low 80-100 [facility] Comment on above: Performed By: #### B MP #### [facility] [place] [address] [employer] Board Drafter: Con Oseguera MD Platelet mean volume (Bld) [Entitic vol] 9.3 fL Normal 6.0-12.0 [facility] Comment on above: Performed By: #### B MP #### [facility] [place] [address] [employer] Drafter: Con Oseguera MD Platelets (Bld) [#/Vol] 234 10*3/uL Normal 150-450 [facility] Comment on above: Performed By: #### B MP #### [facility] [address] [facility] [place] [address] [employer] Drafter: Con Oseguera MD RBC (Bld) [#/Vol] 3.94 10*6/uL Low 4.5-5.9 [facility] Comment on above: Performed By: #### B MP #### [facility] [address] [facility] [place] [address] [employer] Drafter: Con Oseguera MD WBC (Bld) [#/Vol] 12.2 10*3/uL High 3.5-11.0 [facility] Comment on above: Performed By: #### B MP #### [facility] [place] [address] [employer] Board Drafter: Con Oseguera MD Abs.Imm.Granulocyte NOT REPORTED Normal 0.00-0.30 [facility] Comment on above: Performed By: #### B MP #### [facility] [place] [address] [employer] Drafter: Con Oseguera MD Auto Diff Performed NOT REPORTED Normal [facility] Comment on above: Performed By: #### B MP #### [facility] [place] [address] [employer] Board Drafter: Con Oseguera MD Immature granulocytes (Bld) [#/Vol] NOT REPORTED Normal 0 [facility] Comment on above: Performed By: #### B MP #### [facility] [place] [address] [employer] Board Drafter: Con Oseguera MD NRBC Automated NOT REPORTED Normal [facility] Comment on above: Performed By: #### B MP #### [facility] [address] [facility] [place] [address] [employer] Drafter: Con Oseguera MD Platelets (Bld) [#/Vol] NOT REPORTED Normal [facility] Comment on above: Performed By: #### B MP #### [facility] [address] [facility] [place] [address] [employer] Drafter: Con Oseguera MD RBC morphology finding Nom (Bld) NOT REPORTED Normal [facility] Comment on above: Performed By: #### B MP #### [facility] [address] [facility] [place] [address] [employer] Drafter: Con Oseguera MD WBC Morphology NOT REPORTED Normal [facility] Comment on above: Performed By: #### B MP #### [facility] [address] [facility] [place] [address] [employer] Board Drafter: Con Oseguera MD Brain Natri. Peptideon 12-10 Natriuretic peptide B (Bld) [Mass/Vol] 1543 pg/mL High <300 [facility] Comment on above: Result Comment: Pro- BNP results cannot be compared to BNP results. Performed By: #### R EJEC, LIP, TROPI, CP, DIGC, BNP ####[facility] [address] [place] [address] Lab Director: Con Oseguera MD Natriuretic peptide B (Bld) [Mass/Vol] Pro-BNP Reference Range: Normal [facility] Comment on above: Result Comment: Rule Out: <300 Miranda Zone: Age <50 300-450 Age 50-75 300-900 Age >75 300-1800 Usually represents mild to moderate HF but other cardiopulmonary causes cannot be ruled out. Rule In: Age <50 >450 Age 50-75 >900 Age >75 >1800 Performed By: #### R EJEC, LIP, TROPI, CP, DIGC, BNP ####[facility] [address] [facility] [place] [address] Lab Director: Con Oseguera MD CBC with Diffon 12-10-2018 Abs. Basophil 0.00 k/uL Normal 0.0-0.2 [facility] Comment on above: Performed By: #### P T, CDP ####[facility] [address], [place] [phone] Director: Con Oseguera MD Abs.Neutrophil (Seg) 10.73 k/uL High 1.3-9.1 [facility] Comment on above: Performed By: #### P T, CDP ####[facility] [address], [place] [phone])[phone] Director: Con Oseguera MD Basophils/100 WBC (Bld) 0 % Normal 0-2 [facility] Comment on above: Performed By: #### P T, CDP ####[facility] [address], [place] [address])[phone] Director: Con Oseguera MD Eosinophils (Bld) [#/Vol] 0.13 10*3/uL Normal 0.0-0.4 [facility] Comment on above: Performed By: #### P T, CDP ####[facility] [address], [place] [phone] Director: Con Oseguera MD Eosinophils/100 WBC (Bld) 1 % Normal 0-4 [facility] Comment on above: Performed By: #### P T, CDP ####[facility] [address], [place] [phone] Director: Con Oseguera MD Lymphocytes (Bld) [#/Vol] 1.07 10*3/uL Normal 1.0-4.8 [facility] Comment on above: Performed By: #### P T, CDP ####[facility] [address], [place] [phone] Director: Con Oseguera MD Lymphocytes/100 WBC (Bld) 8 % Low 24-44 [facility] Comment on above: Performed By: #### P T, CDP ####[facility] [address] [place] [address] Lab Director: Con Oseguera MD Monocytes (Bld) [#/Vol] 1.47 10*3/uL High 0.1-1.3 [facility] Comment on above: Performed By: #### P T, CDP ####[facility] [address] [place] [address] Lab Director: Con Oseguera MD Monocytes/100 WBC (Bld) 11 % High 1-7 [facility] Comment on above: Performed By: #### P T, CDP ####[facility] [address] [place] [address] Lab Director: Con Oseguera MD Morphology Theo (Bld) [Interp] ANISOCYTOSIS PRESENT Normal [facility] Comment on above: Result Comment: HYPO CHROMIA PRESENT MICROCYTOSIS PRESENT 1+ ELLIPTOCYTES FEW ECHINOCYTES Performed By: #### P T, CDP ####[facility] [address] [place] [address] Lab Director: Con Oseguera MD Neutrophil (Seg) 80 % High 36-66 [facility] Comment on above: Performed By: #### P T, CDP ####[facility] [address] [facility] [place] [address] Lab Director: Con Oseguera MD Erythrocyte distribution width (RBC) [Ratio] 19.0 % High 11.5-14.9 [facility] Comment on above: Performed By: #### P T, CDP ####[facility] [address] [place] [address] Lab Director: Con Oseguera MD Hematocrit (Bld) [Volume fraction] 28.3 % Low 41-53 [facility] Comment on above: Performed By: #### P T, CDP ####[facility] [address] [facility] [place] [address] Lab Director: Con Oseguera MD Hemoglobin (Bld) [Mass/Vol] 8.7 g/dL Low 13.5-17.5 [facility] Comment on above: Performed By: #### P T, CDP ####[facility] [address] [place] [address] Lab Director: Con Oseguera MD MCH (RBC) [Entitic mass] 20.6 pg Low 26-34 [facility] Comment on above: Performed By: #### P T, CDP ####[facility] [address] [facility], [place] [phone] Director: Con Oseguera MD MCHC (RBC) [Mass/Vol] 30.7 g/dL Low 31-37 [facility] Comment on above: Performed By: #### P T, CDP ####[facility] [address] [facility], [place] [phone] Director: Con Oseguera MD MCV (RBC) [Entitic vol] 67.1 fL Low 80-100 [facility] Comment on above: Performed By: #### P T, CDP ####[facility] [address] [facility] [place] [address] Lab Director: Con Oseguera MD Platelet mean volume (Bld) [Entitic vol] 9.0 fL Normal 6.0-12.0 [facility] Comment on above: Performed By: #### P T, CDP ####[facility] [address] [place] [address] Lab Director: Con Oseguera MD Platelets (Bld) [#/Vol] 249 10*3/uL Normal 150-450 [facility] Comment on above: Performed By: #### P T, CDP ####[facility] [address], [place] [address])[phone] Director: Con Oseguera MD RBC (Bld) [#/Vol] 4.22 10*6/uL Low 4.5-5.9 [facility] Comment on above: Performed By: #### P T, CDP ####[facility] [address], [place] [phone] Director: Con Oseguera MD WBC (Bld) [#/Vol] 13.4 10*3/uL High 3.5-11.0 [facility] Comment on above: Performed By: #### P T, CDP ####[facility] [address] [facility].[place], [place] [address])[phone] Director: Con Oseguera MD Abs.Imm.Granulocyte NOT REPORTED Normal 0.00-0.30 [facility] Comment on above: Performed By: #### P T, CDP ####[facility] [address] [facility], [place] [address])[phone] Director: Con Oseguera MD Auto Diff Performed NOT REPORTED Normal [facility] Comment on above: Performed By: #### P T, CDP ####[facility] [address] [facility], [place] [address])[phone] Director: Con Oseguera MD Immature granulocytes (Bld) [#/Vol] NOT REPORTED Normal 0 [facility] Comment on above: Performed By: #### P T, CDP ####[facility] [address] [facility], [place] [phone] Director: Con Oseguera MD NRBC Automated NOT REPORTED Normal [facility] Comment on above: Performed By: #### P T, CDP ####[facility] [address] [place] [address] Lab Director: Con Oseguera MD Platelets (Bld) [#/Vol] NOT REPORTED Normal [facility] Comment on above: Performed By: #### P T, CDP ####[facility] [address], [place] [phone] Director: Con Oseguera MD RBC morphology finding Nom (Bld) NOT REPORTED Normal [facility] Comment on above: Performed By: #### P T, CDP ####[facility] [address], [place] [phone] Director: Con Oseguera MD WBC Morphology NOT REPORTED Normal [facility] Comment on above: Performed By: #### P T, CDP ####[facility] [address] [place] [address] Lab Director: Con Oseguera MD CT ABDOMEN [...] Sawyer Jr., DO 12/10/18 Final result Normal [facility] Comp Metabolic Profon 2018 (cont.) Normal [facility] Comment on above: Result Comment: Aver age GFR for 70 or more years old: 75 mL/min/1.73sq m Chronic Kidney Disease: <60 mL/min/1.73sq m Kidney failure: <15 mL/min/1.73sq m eGFR calculated using average adult body mass. Additional eGFR calculator available at: http://www.Bocada.[employer]M Power/multiple_crcl_2012.htm Performed By: #### R EJEC, LIP, TROPI, CP, DIGC, BNP ####[facility] [address] [facility] [place] [address] [facility] Director: Con Oseguera MD Alkaline Phos 125 U/L Normal 40-129 [facility] Comment on above: Result Comment: SPEC IMEN SLIGHTLY HEMOLYZED, RESULTS MAY BE ADVERSELY AFFECTED. Performed By: #### R EJEC, LIP, TROPI, CP, DIGC, BNP ####[facility] [address] [facility] [place] [address] lab Director: Con Oseguera MD ALT [Catalytic activity/Vol] 15 U/L Normal 5-41 [facility] Comment on above: Result Comment: SPEC IMEN SLIGHTLY HEMOLYZED, RESULTS MAY BE ADVERSELY AFFECTED. Performed By: #### R EJEC, LIP, TROPI, CP, DIGC, BNP ####[facility] [address] [place] [address] Lab Director: Con Oseguera MD Anion gap [Moles/Vol] 17 mmol/L Normal 9-17 [facility] Comment on above: Performed By: #### R EJEC, LIP, TROPI, CP, DIGC, BNP ####[facility] [address] [place] [address] Lab Director: Con Oseguera MD AST [Catalytic activity/Vol] 28 U/L Normal <40 [facility] Comment on above: Result Comment: SPEC IMEN SLIGHTLY HEMOLYZED, RESULTS MAY BE ADVERSELY AFFECTED. Performed By: #### R EJEC, LIP, TROPI, CP, DIGC, BNP ####[facility] [address] [place] [address] Lab Director: Con Oseguera MD Bilirubin Ql (U) 0.51 mg/dL Normal 0.3-1.2 [facility] Comment on above: Result Comment: SPEC IMEN SLIGHTLY HEMOLYZED, RESULTS MAY BE ADVERSELY AFFECTED. Performed By: #### R EJEC, LIP, TROPI, CP, DIGC, BNP ####[facility] [address] [place] [address] Lab Director: Con Oseguera MD Calcium [Mass/Vol] 9.1 mg/dL Normal 8.6-10.4 [facility] Comment on above: Result Comment: SPEC IMEN SLIGHTLY HEMOLYZED, RESULTS MAY BE ADVERSELY AFFECTED. Performed By: #### R EJEC, LIP, TROPI, CP, DIGC, BNP ####[facility] [address] [place] [address] Lab Director: Con Oseguera MD GFR, Amer >60 Normal >60 [facility] Comment on above: Performed By: #### R EJEC, LIP, TROPI, CP, DIGC, BNP ####[facility] [address] [place] [address] Lab Director: Con Oseguera MD GFR,non Amer >60 Normal >60 [facility] Comment on above: Performed By: #### R EJEC, LIP, TROPI, CP, DIGC, BNP ####[facility] [address] [place] [address] Lab Director: Con Oseguera MD Potassium [Moles/Vol] 4.8 mmol/L Normal 3.7-5.3 [facility] Comment on above: Result Comment: SPEC IMEN SLIGHTLY HEMOLYZED, RESULTS MAY BE ADVERSELY AFFECTED. Performed By: #### R EJEC, LIP, TROPI, CP, DIGC, BNP ####[facility] [address] [facility] [place] [address] Lab Director: Con Oseguera MD Protein [Mass/Vol] 6.9 g/dL Normal 6.4-8.3 [facility] Comment on above: Result Comment: SPEC IMEN SLIGHTLY HEMOLYZED, RESULTS MAY BE ADVERSELY AFFECTED. Performed By: #### R EJEC, LIP, TROPI, CP, DIGC, BNP ####[facility] [address] [place] [address] Lab Director: Con Oseguera MD Sodium [Moles/Vol] 134 mmol/L Low 135-144 [facility] Comment on above: Result Comment: SPEC IMEN SLIGHTLY HEMOLYZED, RESULTS MAY BE ADVERSELY AFFECTED. Performed By: #### R EJEC, LIP, TROPI, CP, DIGC, BNP ####[facility] [address] [place] [address] Lab Director: Con Oseguera MD Albumin [Mass/Vol] 4.1 g/dL Normal 3.5-5.2 [facility] Comment on above: Performed By: #### R EJEC, LIP, TROPI, CP, DIGC, BNP ####[facility] [address] [place] [address] Lab Director: Con Oseguera MD Chloride [Moles/Vol] 99 mmol/L Normal 98-107 [facility] Comment on above: Performed By: #### R EJEC, LIP, TROPI, CP, DIGC, BNP ####[facility] [address] [place] [address] Lab Director: Con Oseguera MD CO2 [Moles/Vol] 18 mmol/L Low 20-31 [facility] Comment on above: Performed By: #### R EJEC, LIP, TROPI, CP, DIGC, BNP ####[facility] [address] [place] [address] Lab Director: Con Oseguera MD Creatinine [Mass/Vol] 0.98 mg/dL Normal 0.70-1.20 [facility] Comment on above: Performed By: #### R EJEC, LIP, TROPI, CP, DIGC, BNP ####[facility] [address] [place] [address] Lab Director: Con Oseguera MD Glucose [Mass/Vol] 148 mg/dL High 70-99 [facility] Comment on above: Performed By: #### R EJEC, LIP, TROPI, CP, DIGC, BNP ####[facility] [address] [place] [address] Lab Director: Con Oseguera MD Urea nitrogen [Mass/Vol] 24 mg/dL High 8-23 [facility] Comment on above: Performed By: #### R EJEC, LIP, TROPI, CP, DIGC, BNP ####[facility] [address] [place] [address] Lab Director: Con Oseguera MD Albumin/Globulin [Mass ratio] NOT REPORTED Normal 1.0-2.5 [facility] Comment on above: Performed By: #### R EJEC, LIP, TROPI, CP, DIGC, BNP ####[facility] [address], [place] [phone] Director: Con Oseguera MD BUN/CRE Ratio NOT REPORTED Normal 9-20 [facility] Comment on above: Performed By: #### R EJEC, LIP, TROPI, CP, DIGC, BNP ####[facility] [address] [facility], [place] [address])[phone] Director: Con Oseguera MD Staging: NOT REPORTED Normal [facility] Comment on above: Performed By: #### R EJEC, LIP, TROPI, CP, DIGC, BNP ####[facility] [address] [facility], [place] [address])[phone] Director: Con Oseguera MD Digoxinon 12-10-2018 Digoxin [Mass/Vol] ng/mL Low 0.5-2.0 [facility] Comment on above: Result Comment: Digoxin Reference Range: Heart Failure 0.5-0.9 Atrial Fibrillation 0.8-2.0 Performed By: #### R EJEC, LIP, TROPI, CP, DIGC, BNP ####[facility] [address] [place] [address] Lab Director: Con Oseguera MD Digoxin [Mass/Vol] UNKNOWN Normal [facility] Comment on above: Performed By: #### R EJEC, LIP, TROPI, CP, DIGC, BNP ####[facility] [address] [place] [address] Lab Director: Con Oseguera MD Lipaseon 12-10-2018 Lipase [Catalytic activity/Vol] 48 U/L Normal 13-60 [facility] Comment on above: Result Comment: SPEC IMEN SLIGHTLY HEMOLYZED, RESULTS MAY BE ADVERSELY AFFECTED. Performed By: #### B MP #### [facility] [address] [place] [address] [employer] Drafter: Con Oseguera MD PTon 12-10-2018 INR Coag (PPP) [Relative time] 1.3 {INR} Normal [facility] Comment on above: Result Comment: Non-therapeutic Range: INR = 0.9-1.2 Therapeutic Range: Moderate Anticoagulant Intensity: INR = 2.0-3.0 High Anticoagulant Intensity: INR = 2.5-3.5 Performed By: #### P T, CDP ####[facility] [address] [place] [address] Lab Director: Con Oseguera MD PT Coag (PPP) [Time] 16.5 s High 11.8-14.6 [facility] Comment on above: Performed By: #### P T, CDP ####[facility] [address] [place] [address] Lab Director: Con Oseguera MD Specimen Rejectionon 019 Reason for rejection Unable to perform testing: Specimen clotted. Normal [facility] Comment on above: Performed By: #### B MP #### [facility] [address] [place] [address] [employer]fter: Con Oseguera MD Source of sample .BLOOD Normal [facility] Comment on above: Performed By: #### B MP #### [facility] [address] [place] [address] [employer]: Con Oseguera MD Test ordered CDP Normal [facility] Comment on above: Performed By: #### B MP #### [facility] [address] [facility] [place] [address] [employer]fter: Con Oseguera MD ----- NOT REPORTED Normal [facility] Comment on above: Performed By: #### B MP #### [facility] [address] [facility] [place] [address] [employer]: Con Oseguera MD Troponinon 12-10-2018 Troponin I.cardiac [Mass/Vol] 28 ng/L High 0-22 [facility] Comment on above: Result Comment: High Sensitivity Troponin values cannot be compared with other Troponin methodologies. Patients with high levels of Biotin oral intake (i.e >5mg/day) may have falsely decreased Troponin levels. Samples collected within 8 hours of biotin intake may require additional information for diagnosis. Performed By: #### T ROPI ####[facility] [address] [facility], [place] [phone] Director: Con Oseguera MD Troponin I.cardiac [Mass/Vol] NOT REPORTED Normal [facility] Comment on above: Performed By: #### T ROPI ####[facility] [address] [facility] [place] [address] Lab Director: Con Oseguera MD Troponin I.cardiac [Mass/Vol] 30 ng/L High 0-22 [facility] Comment on above: Result Comment: High Sensitivity [...] R EJEC, LIP, TROPI, CP, DIGC, BNP ####[facility] [address] [facility] [place] [address] Lab Director: Con Oseguera MD Troponin I.cardiac [Mass/Vol] NOT REPORTED Normal [facility] Comment on above: Performed By: #### R EJEC, LIP, TROPI, CP, DIGC, BNP ####[facility] [address] [facility] [place] [address] Lab Director: Con Oseguera MD Urinalysis, Routineon 2018 Acetoacetic Acid,Ur Negative Normal NEG [facility] Comment on above: Performed By: #### U A ####[facility] [address] [facility], [place] [phone] Director: Con Oseguera MD Bilirubin, SemiQt,Ur Negative Normal NEG [facility] Comment on above: Performed By: #### U A ####[facility] [address] [facility], [place] [phone] Director: Con Oseguera MD Color (U) YELLOW Normal YEL [facility] Comment on above: Performed By: #### U A ####[facility] [address] [facility] [place] [address] Lab Director: Con Oseguera MD Comment Microscopic exam not performed based on chemical results unless requested in Normal [facility] Comment on above: Result Comment: orig inal order. Performed By: #### U A ####[facility] [address] [facility] [place] [address] Lab Director: Con Oseguera MD Glucose Ql (U) Negative Normal NEG [facility] Comment on above: Performed By: #### U A ####[facility] [address] [place] [address] Lab Director: Con Oseguera MD Hemoglobin, Ur Negative Normal NEG [facility] Comment on above: Performed By: #### U A ####[facility] [address] [place] [address] Lab Director: Con Oseguera MD Leukocyte esterase Test strip Ql (U) Negative Normal NEG [facility] Comment on above: Performed By: #### U A ####[facility] [address] [place] [address] Lab Director: Con Oseguera MD Nitrite,Ur Negative Normal NEG [facility] Comment on above: Performed By: #### U A ####[facility] [address] [facility] [place] [address] [facility] Director: Con Oseguera MD pH (U) 5.0 [pH] Normal 5.0-8.0 [facility] Comment on above: Performed By: #### U A ####[facility] [address] [facility], [place] [phone] Director: Con Oseguera MD Protein Ql (U) Negative Normal NEG [facility] Comment on above: Performed By: #### U A ####[facility] [address] [place] [address] [facility] Director: Con Oseguera MD Specific gravity (U) [Rel density] 1.013 Normal 1.000-1.030 [facility] Comment on above: Performed By: #### U A ####[facility] [address] [facility] [place] [address] Lab Director: Con Oseguera MD Turbidity CLEAR Normal CLEAR [facility] Comment on above: Performed By: #### U A ####[facility] [address] [place] [address] Lab Director: Con Oseguera MD Urobilinogen,Ur Normal Normal NORM [facility] Comment on above: Performed By: #### U A ####[facility] [address] [facility] [place] [address] Lab Director: Con Oseguera MD XR CHEST [...] Sawyer Jr., DO 12/10/18 Final result Normal [facility] Basic Metabolic Profon 11-03 (cont.) Normal [facility] Comment on above: Result Comment: Aver age GFR for 70 or more years old: 75 mL/min/1.73sq m Chronic Kidney Disease: <60 mL/min/1.73sq m Kidney failure: <15 mL/min/1.73sq m eGFR calculated using average adult body mass. Additional eGFR calculator available at: http://www.[employer]/multiple_crcl_2012.htm Performed By: #### B MP #### [facility] [address] [facility]. [place], [place] [id number] [employer]fter: Con Oseguera MD Anion gap [Moles/Vol] 15 mmol/L Normal 9-17 [facility] Comment on above: Performed By: #### B MP #### [facility] [address] [facility]. [place], [place] [id number] [employer]: Con Oseguera MD Calcium [Mass/Vol] 8.9 mg/dL Normal 8.6-10.4 [facility] Comment on above: Performed By: #### B MP #### [facility] [facility]. [place], [place] [phone] [employer]: Con Oseguera MD Chloride [Moles/Vol] 100 mmol/L Normal 98-107 [facility] Comment on above: Performed By: #### B MP #### [facility] [address] [place] [address] [employer]: Con Oseguera MD CO2 [Moles/Vol] 21 mmol/L Normal 20-31 [facility] Comment on above: Performed By: #### B MP #### [facility] [address] [place] [address] [employer]: Con Oseguera MD Creatinine [Mass/Vol] 1.17 mg/dL Normal 0.70-1.20 [facility] Comment on above: Performed By: #### B MP #### [facility] [address] [place] [address] [employer]: Con Oseguera MD GFR, Amer >60 Normal >60 [facility] Comment on above: Performed By: #### B MP #### [facility] [address] [place] [address] [employer]fter: Con Oseguera MD GFR,non Amer 60 mL/min Low >60 [facility] Comment on above: Performed By: #### B MP #### [facility] [address] [place] [address] [employer]fter: Con Oseguera MD Glucose [Mass/Vol] 231 mg/dL High 70-99 [facility] Comment on above: Performed By: #### B MP #### [facility] [address] [place] [address] [employer]fter: Con Oseguera MD Potassium [Moles/Vol] 4.0 mmol/L Normal 3.7-5.3 [facility] Comment on above: Performed By: #### B MP #### [facility] [address] [place] [address] [employer]fter: Con Oseguera MD Sodium [Moles/Vol] 136 mmol/L Normal 135-144 [facility] Comment on above: Performed By: #### B MP #### [facility] [address] [place] [address] [employer]fter: Con Oseguera MD Urea nitrogen [Mass/Vol] 27 mg/dL High 8- [facility] Comment on above: Performed By: #### B MP #### [facility] [address] [place] [address] [employer]fter: Con Oseguera MD BUN/CRE Ratio NOT REPORTED Normal - [facility] Comment on above: Performed By: #### B MP #### [facility] [address] [place] [address] [employer]fter: Con Oseguera MD Staging: NOT REPORTED Normal [facility] Comment on above: Performed By: #### B MP #### [facility] [address] [place] [address] [employer] Drafter: Con Oseguera MD T3, Freeon 11-03-2018 Free T3 [Mass/Vol] 2.64 pg/mL Normal 2.02-4.43 [facility] Comment on above: Performed By: #### B MP #### [facility] [place] [address] [employer]fter: Con Oseguera MD Thyroid Stim. Horm.on 2018 TSH Qn 5.66 m[IU]/L High 0.30-5.00 [facility] Comment on above: Performed By: #### B MP #### [facility] [address] [place] [address] [employer]fter: Con Oseguera MD Thyroxine, Freeon 11-03-2018 Thyroxine, Free 0.92 ng/dL Low 0.93-1.70 [facility] Comment on above: Performed By: #### B MP #### [facility] [address] [place] [address] [employer] Drafter: Con Oseguera MD Basic Metabolic Profon 10-23 (cont.) Normal [facility] Comment on above: Result Comment: Aver age GFR for 70 or more years old: 75 mL/min/1.73sq m Chronic Kidney Disease: <60 mL/min/1.73sq m Kidney failure: <15 mL/min/1.73sq m eGFR calculated using average adult body mass. Additional eGFR calculator available at: http://www.[employer]/multiple_crcl_2012.htm Performed By: #### B MP #### [facility] [address] [place] [address] [employer] Drafter: Con Oseguera MD Anion gap [Moles/Vol] 14 mmol/L Normal 9-17 [facility] Comment on above: Performed By: #### B MP #### [facility] [address] [place] [address] [employer]fter: Con Oseguera MD Calcium [Mass/Vol] 9.3 mg/dL Normal 8.6-10.4 [facility] Comment on above: Performed By: #### B MP #### [facility] [address] [place] [address] [employer]fter: Con Oseguera MD Chloride [Moles/Vol] 100 mmol/L Normal 98-107 [facility] Comment on above: Performed By: #### B MP #### [facility] [address] [place] [address] [employer] Drafter: Con Oseguera MD CO2 [Moles/Vol] 22 mmol/L Normal 20-31 [facility] Comment on above: Performed By: #### B MP #### [facility] [address] [place] [address] [employer] Drafter: Con Oseguera MD Creatinine [Mass/Vol] 2.03 mg/dL High 0.70-1.20 [facility] Comment on above: Performed By: #### B MP #### [facility] [address] [place] [address] [employer] Drafter: Con Oseguera MD GFR, Amer 38 mL/min Low >60 [facility] Comment on above: Performed By: #### B MP #### [facility] [address] [place] [address] [employer] Drafter: Con Oseguera MD GFR,non Amer 32 mL/min Low >60 [facility] Comment on above: Performed By: #### B MP #### [facility] [address] [place] [address] [employer] Drafter: Con Oseguera MD Glucose [Mass/Vol] 286 mg/dL High 70-99 [facility] Comment on above: Performed By: #### B MP #### [facility] [address] [place] [address] [employer] Drafter: Con Oseguera MD Potassium [Moles/Vol] 5.2 mmol/L Normal 3.7-5.3 [facility] Comment on above: Performed By: #### B MP #### [facility] [address] [place] [address] [employer] Drafter: Con Oseguera MD Sodium [Moles/Vol] 136 mmol/L Normal 135-144 [facility] Comment on above: Performed By: #### B MP #### [facility] [address] [place] [address] [employer]fter: Con Oseguera MD Urea nitrogen [Mass/Vol] 51 mg/dL High 8-23 [facility] Comment on above: Performed By: #### B MP #### [facility] [address] [place] [address] [employer] Drafter: Con Oseguera MD BUN/CRE Ratio NOT REPORTED Normal 03-16 [facility] Comment on above: Performed By: #### B MP #### [facility] [address] [facility] [place] [address] [employer] Drafter: Con Oseguera MD Staging: NOT REPORTED Normal [facility] Comment on above: Performed By: #### B MP #### [facility] [place] [address] [employer] Drafter: Con Oseguera MD CBC with Diffon 10-23-2018 Abs. Basophil 0.09 k/uL Normal 0.0-0.2 [facility] Comment on above: Performed By: #### B MP #### [facility] [facility] [place] [address] [employer] Drafter: Con Oseguera MD Abs.Neutrophil (Seg) 6.45 k/uL Normal 1.3-9.1 [facility] Comment on above: Performed By: #### B MP #### [facility] [place] [address] [employer] Drafter: Con Oseguera MD Basophils/100 WBC (Bld) 1 % Normal 0-2 [facility] Comment on above: Performed By: #### B MP #### [facility] [place] [address] [employer] Drafter: Con Oseguera MD Eosinophils (Bld) [#/Vol] 0.17 10*3/uL Normal 0.0-0.4 [facility] Comment on above: Performed By: #### B MP #### [facility] [facility] [place] [address] [employer] Drafter: Con Oseguera MD Eosinophils/100 WBC (Bld) 2 % Normal 0-4 [facility] Comment on above: Performed By: #### B MP #### [facility] [address] [place] [address] [employer] Drafter: Con Oseguera MD Lymphocytes (Bld) [#/Vol] 1.19 10*3/uL Normal 1.0-4.8 [facility] Comment on above: Performed By: #### B MP #### [facility] [address] [place] [address] [employer] Drafter: Con Oseguera MD Lymphocytes/100 WBC (Bld) 14 % Low 24-44 [facility] Comment on above: Performed By: #### B MP #### [facility] [address] [place] [address] [employer] Drafter: Con Oseguera MD Monocytes (Bld) [#/Vol] 0.60 10*3/uL Normal 0.1-1.3 [facility] Comment on above: Performed By: #### B MP #### [facility] [address] [place] [address] [employer] Drafter: Con Oseguera MD Monocytes/100 WBC (Bld) 7 % Normal 1-7 [facility] Comment on above: Performed By: #### B MP #### [facility] [address] [place] [address] [employer] Drafter: Con Oseguera MD Morphology Theo (Bld) [Interp] ANISOCYTOSIS PRESENT Normal [facility] Comment on above: Result Comment: HYPO CHROMIA PRESENT MICROCYTOSIS PRESENT 1+ ELLIPTOCYTES 1+ ECHINOCYTES Performed By: #### B MP #### [facility] [address] [place] [address] [employer] Drafter: Con Oseguera MD Neutrophil (Seg) 76 % High 36-66 [facility] Comment on above: Performed By: #### B MP #### [facility] [place] [address] [employer] Drafter: Con Oseguera MD Erythrocyte distribution width (RBC) [Ratio] 21.6 % High 11.5-14.9 [facility] Comment on above: Performed By: #### B MP #### [facility] [place] [address] [employer] Drafter: Con Oseguera MD Hematocrit (Bld) [Volume fraction] 27.3 % Low 41-53 [facility] Comment on above: Performed By: #### B MP #### [facility] [address] [place] [address] [employer] Drafter: Con Oseguera MD Hemoglobin (Bld) [Mass/Vol] 8.5 g/dL Low 13.5-17.5 [facility] [facility] Comment on above: Performed By: #### B MP #### [facility] [address] [place] [address] [employer] Drafter: Con Oseguera MD MCH (RBC) [Entitic mass] 21.1 pg Low 26-34 [facility] Comment on above: Performed By: #### B MP #### [facility] [address] [place] [address] [employer] Drafter: Con Oseguera MD MCHC (RBC) [Mass/Vol] 30.9 g/dL Low 31-37 [facility] Comment on above: Performed By: #### B MP #### [facility] [address] [place] [address] [employer] Drafter: Con Oseguera MD MCV (RBC) [Entitic vol] 68.3 fL Low 80-100 [facility] Comment on above: Performed By: #### B MP #### [facility] [place] [address] [employer] Board Drafter: Con Oseguera MD Platelet mean volume (Bld) [Entitic vol] 9.5 fL Normal 6.0-12.0 [facility] Comment on above: Performed By: #### B MP #### [facility] [place] [address] [employer] Board Drafter: Con Oseguera MD Platelets (Bld) [#/Vol] 300 10*3/uL Normal 150-450 [facility] Comment on above: Performed By: #### B MP #### [facility] [address] [place] [address] [employer] Drafter: Con Oseguera MD RBC (Bld) [#/Vol] 4.00 10*6/uL Low 4.5-5.9 [facility] Comment on above: Performed By: #### B MP #### [facility] [place] [address] [employer] Board Drafter: Con Oseguera MD WBC (Bld) [#/Vol] 8.5 10*3/uL Normal 3.5-11.0 [facility] Comment on above: Performed By: #### B MP #### [facility] [place] [address] [employer] Drafter: Con Oseguera MD Abs.Imm.Granulocyte NOT REPORTED Normal 0.00-0.30 [facility] Comment on above: Performed By: #### B MP #### [facility] [place] [address] [employer] Drafter: Con Oseguera MD Auto Diff Performed NOT REPORTED Normal [facility] Comment on above: Performed By: #### B MP #### [facility] [address] [facility] [place] [address] [employer] Drafter: Con Oseguera MD Immature granulocytes (Bld) [#/Vol] NOT REPORTED Normal 0 [facility] Comment on above: Performed By: #### B MP #### [facility] [address] [facility] [place] [address] [employer] Board Drafter: Con Oseguera MD NRBC Automated NOT REPORTED Normal [facility] Comment on above: Performed By: #### B MP #### [facility] [address] [facility] [place] [address] [employer] Board Drafter: Con Oseguera MD Platelets (Bld) [#/Vol] NOT REPORTED Normal [facility] Comment on above: Performed By: #### B MP #### [facility] [address] [facility] [place] [address] [employer] Drafter: Con Oseguera MD RBC morphology finding Nom (Bld) NOT REPORTED Normal [facility] Comment on above: Performed By: #### B MP #### [facility] [address] [facility] [place] [address] [employer] Drafter: Con Oseguera MD WBC Morphology NOT REPORTED Normal [facility] Comment on above: Performed By: #### B MP #### [facility] [place] [address] [employer] Drafter: Con Oseguera MD Comp Metabolic Profon 2018 (cont.) Normal [facility] Comment on above: Result Comment: Aver age GFR for 70 or more years old: 75 mL/min/1.73sq m Chronic Kidney Disease: <60 mL/min/1.73sq m Kidney failure: <15 mL/min/1.73sq m eGFR calculated using average adult body mass. Additional eGFR calculator available at: http://www.Bocada.QM Power/multiple_crcl_2011.htm Performed By: #### C P, MG, CB, CDP #### [facility] [address] [place] [address] [employer] Drafter: Con Oseguera MD Albumin [Mass/Vol] 3.9 g/dL Normal 3.5-5.2 [facility] Comment on above: Performed By: #### C P, MG, CB, CDP #### [facility] [address] [place] [address] [employer] Drafter: Con Oseguera MD Alkaline Phos 90 U/L Normal 40-129 [facility] Comment on above: Performed By: #### C P, MG, CB, CDP #### [facility] [address] [place] [address] [employer] Drafter: Con Oseguera MD ALT [Catalytic activity/Vol] 18 U/L Normal 5-41 [facility] Comment on above: Performed By: #### C P, MG, CB, CDP #### [facility] [address] [facility] [place] [address] [employer] Drafter: Con Oseguera MD Anion gap [Moles/Vol] 14 mmol/L Normal 9-17 [facility] Comment on above: Performed By: #### C P, MG, CB, CDP #### [facility] [facility] [place] [address] [employer] Drafter: Con Oseguera MD AST [Catalytic activity/Vol] 21 U/L Normal <40 [facility] Comment on above: Performed By: #### C P, MG, CB, CDP #### [facility] [address] [facility] [address] [employer] Drafter: Con Oseguera MD Bilirubin Ql (U) 0.34 mg/dL Normal 0.3-1.2 [facility] Comment on above: Performed By: #### C P, MG, CB, CDP #### [facility] [address] [place] [address] [employer] Drafter: Con Oseguera MD Calcium [Mass/Vol] 9.3 mg/dL Normal 8.6-10.4 [facility] Comment on above: Performed By: #### C P, MG, CB, CDP #### [facility] [address] [place] [address] [employer]fter: Con Oseguera MD Chloride [Moles/Vol] 100 mmol/L Normal 98-107 [facility] Comment on above: Performed By: #### C P, MG, CB, CDP #### [facility] [address] [place] [address] [employer] Drafter: Con Oseguera MD CO2 [Moles/Vol] 22 mmol/L Normal 20-31 [facility] Comment on above: Performed By: #### C P, MG, CB, CDP #### [facility] [address] [place] [address] [employer] Drafter: Con Oseguera MD Creatinine [Mass/Vol] 2.03 mg/dL High 0.70-1.20 [facility] Comment on above: Performed By: #### C P, MG, CB, CDP #### [facility] [address] [place] [address] [employer] Drafter: Con Oseguera MD GFR, Amer 38 mL/min Low >60 [facility] Comment on above: Performed By: #### C P, MG, CB, CDP #### [facility] [address] [place] [address] [employer] Drafter: Con Oseguera MD GFR,non Amer 32 mL/min Low >60 [facility] Comment on above: Performed By: #### C P, MG, CB, CDP #### [facility] [address] [place] [address] [employer] Drafter: Con Oseguera MD Glucose [Mass/Vol] 286 mg/dL High 70-99 [facility] Comment on above: Performed By: #### C P, MG, CB, CDP #### [facility] [address] [place] [address] [employer] Drafter: Con Oseguera MD Potassium [Moles/Vol] 5.2 mmol/L Normal 3.7-5.3 [facility] Comment on above: Performed By: #### C P, MG, CB, CDP #### [facility] [address] [place] [address] [employer] Drafter: Con Oseguera MD Protein [Mass/Vol] 6.6 g/dL Normal 6.4-8.3 [facility] Comment on above: Performed By: #### C P, MG, CB, CDP #### [facility] [address] [place] [address] [employer] Drafter: Con Oseguera MD Sodium [Moles/Vol] 136 mmol/L Normal 135-144 [facility] Comment on above: Performed By: #### C P, MG, CB, CDP #### [facility] [place] [address] [employer] Drafter: Con Oseguera MD Urea nitrogen [Mass/Vol] 51 mg/dL High 8-23 [facility] Comment on above: Performed By: #### C P, MG, CB, CDP #### [facility] [address] [facility] [place] [address] [employer] Drafter: Con Oseguera MD Albumin/Globulin [Mass ratio] NOT REPORTED Normal 1.0-2.5 [facility] Comment on above: Performed By: #### C P, MG, CB, CDP #### [facility] [address] [place] [address] [employer] Drafter: Con Oseguera MD BUN/CRE Ratio NOT REPORTED Normal 9-20 [facility] Comment on above: Performed By: #### C P, MG, CB, CDP #### [facility] [address] [place] [address] [employer] Drafter: Con Oseguera MD Staging: NOT REPORTED Normal [facility] Comment on above: Performed By: #### C P, MG, CB, CDP #### [facility] [address] [place] [address] [employer] Drafter: Con Oseguera MD Magnesiumon 10-23-2018 Magnesium [Mass/Vol] 2.3 mg/dL Normal 1.6-2.6 [facility] Comment on above: Performed By: #### B MP #### [facility] [address] [facility] [place] [address] [employer] Drafter: Con Oseguera MD Phosphorus, Inorg.on 019 Phosphorus, Inorg. 4.8 mg/dL High 2.5-4.5 [facility] Comment on above: Performed By: #### B MP #### [facility] [address] [facility] [place] [address] [employer] Drafter: Con Oseguera MD Basic Metabolic Profon 10-12 (cont.) Normal [facility] Comment on above: Result Comment: Aver age GFR for 70 or more years old: 75 mL/min/1.73sq m Chronic Kidney Disease: <60 mL/min/1.73sq m Kidney failure: <15 mL/min/1.73sq m eGFR calculated using average adult body mass. Additional eGFR calculator available at: http://www.Bocada.QM Power/multiple_crcl_2012.htm Performed By: #### B MP #### [facility] [address] [place] [address] [employer] Drafter: Con Oseguera MD Anion gap [Moles/Vol] 14 mmol/L Normal 9-17 [facility] Comment on above: Performed By: #### B MP #### [facility] [address] [place] [address] [employer] Board Drafter: Con Oseguera MD Calcium [Mass/Vol] 9.6 mg/dL Normal 8.6-10.4 [facility] Comment on above: Performed By: #### B MP #### [facility] [address] [place] [address] [employer] Drafter: Con Oseguera MD Chloride [Moles/Vol] 103 mmol/L Normal 98-107 [facility] Comment on above: Performed By: #### B MP #### [facility] [address] [place] [address] [employer] Drafter: Con Oseguera MD CO2 [Moles/Vol] 21 mmol/L Normal 20-31 [facility] Comment on above: Performed By: #### B MP #### [facility] [address] [place] [address] [employer] Drafter: Con Oseguera MD Creatinine [Mass/Vol] 1.52 mg/dL High 0.70-1.20 [facility] Comment on above: Performed By: #### B MP #### [facility] [address] [place] [address] [employer] Drafter: Con Oseguera MD GFR, Amer 54 mL/min Low >60 [facility] Comment on above: Performed By: #### B MP #### [facility] [address] [place] [address] [employer] Drafter: Con Oseguera MD GFR,non Amer 44 mL/min Low >60 [facility] Comment on above: Performed By: #### B MP #### [facility] [address] [place] [address] [employer] Board Drafter: Con Oseguera MD Glucose [Mass/Vol] 219 mg/dL High 70-99 [facility] Comment on above: Performed By: #### B MP #### [facility] [address] [place] [address] [employer] Drafter: Con Oseguera MD Potassium [Moles/Vol] 4.8 mmol/L Normal 3.7-5.3 [facility] Comment on above: Performed By: #### B MP #### [facility] [address] [place] [address] [employer] Drafter: Con Oseguera MD Sodium [Moles/Vol] 138 mmol/L Normal 135-144 [facility] Comment on above: Performed By: #### B MP #### [facility] [address] [place] [address] [employer] Drafter: Con Oseguera MD Urea nitrogen [Mass/Vol] 48 mg/dL High 8-23 [facility] Comment on above: Performed By: #### B MP #### [facility] [address] [place] [address] [employer] Drafter: Con Oseguera MD BUN/CRE Ratio NOT REPORTED Normal 9-20 [facility] Comment on above: Performed By: #### B MP #### [facility] [address] [place] [address] [employer] Drafter: Con Oseguera MD Staging: NOT REPORTED Normal [facility] Comment on above: Performed By: #### B MP #### [facility] [address] [place] [address] [employer] Board Drafter: Con Oseguera MD Basic Metabolic Profon 09-28 (cont.) Normal [facility] Comment on above: Result Comment: Aver age GFR for 70 or more years old: 75 mL/min/1.73sq m Chronic Kidney Disease: <60 mL/min/1.73sq m Kidney failure: <15 mL/min/1.73sq m eGFR calculated using average adult body mass. Additional eGFR calculator available at: http://www.Amartus/multiple_crcl_2012.htm Performed By: #### B MP #### [facility] [address] [place] [address] [employer] Drafter: Con Oseguera MD Anion gap [Moles/Vol] 13 mmol/L Normal 9-17 [facility] Comment on above: Performed By: #### B MP #### [facility] [address] [facility] [place] [address] [employer] Drafter: Con Oseguera MD Calcium [Mass/Vol] 9.2 mg/dL Normal 8.6-10.4 [facility] Comment on above: Performed By: #### B MP #### [facility] [address] [place] [address] [employer] Board Drafter: Con Oseguera MD Chloride [Moles/Vol] 100 mmol/L Normal 98-107 [facility] Comment on above: Performed By: #### B MP #### [facility] [address] [place] [address] [employer] Board Drafter: Con Oseguera MD CO2 [Moles/Vol] 24 mmol/L Normal 20-31 [facility] Comment on above: Performed By: #### B MP #### [facility] [address] [place] [address] [employer] Board Drafter: Con Oseguera MD Creatinine [Mass/Vol] 1.46 mg/dL High 0.70-1.20 [facility] Comment on above: Performed By: #### B MP #### [facility] [address] [place] [address] [employer] Drafter: Con Oseguera MD GFR, Amer 56 mL/min Low >60 [facility] Comment on above: Performed By: #### B MP #### [facility] [address] [place] [address] [employer] Drafter: Con Oseguera MD GFR,non Amer 46 mL/min Low >60 [facility] Comment on above: Performed By: #### B MP #### [facility] [address] [place] [address] [employer] Board Drafter: Con Oseguera MD Glucose [Mass/Vol] 269 mg/dL High 70-99 [facility] Comment on above: Performed By: #### B MP #### [facility] [address] [place] [address] [employer] Drafter: Con Oseguera MD Potassium [Moles/Vol] 4.7 mmol/L Normal 3.7-5.3 [facility] Comment on above: Performed By: #### B MP #### [facility] [address] [place] [address] [employer] Drafter: Con Oseguera MD Sodium [Moles/Vol] 137 mmol/L Normal 135-144 [facility] Comment on above: Performed By: #### B MP #### [facility] [address] [place] [address] [employer] Board Drafter: Con Oseguera MD Urea nitrogen [Mass/Vol] 41 mg/dL High 8-23 [facility] Comment on above: Performed By: #### B MP #### [facility] [address] [place] [address] [employer] Drafter: Con Oseguera MD BUN/CRE Ratio NOT REPORTED Normal 9-20 [facility] Comment on above: Performed By: #### B MP #### [facility] [address] [place] [address] [employer] Board Drafter: Con Oseguera MD Staging: NOT REPORTED Normal [facility] Comment on above: Performed By: #### B MP #### [facility] [address] [facility] [place] [address] Circuit Board Drafter: Con Oseguera MD Basic Metabolic Profon 09-20 (cont.) Normal [facility] Comment on above: Result Comment: Aver age GFR for 70 or more years old: 75 mL/min/1.73sq m Chronic Kidney Disease: <60 mL/min/1.73sq m Kidney failure: <15 mL/min/1.73sq m eGFR calculated using average adult body mass. Additional eGFR calculator available at: http://www.Amartus/multiple_crcl_2012.htm Performed By: #### H H, BMP #### [facility] [address] [facility] [place] [address] Circuit Board Drafter: Con Oseguera MD Anion gap [Moles/Vol] 14 mmol/L Normal -17 [facility] Comment on above: Performed By: #### H H, BMP #### [facility] [address] [facility] [place] [address] Circuit Board Drafter: Con Oseguera MD Calcium [Mass/Vol] 9.1 mg/dL Normal 8.6-10.4 [facility] Comment on above: Performed By: #### H H, BMP #### [facility] [address] [facility] [place] [address] [employer] Board Drafter: Con Oseguera MD Chloride [Moles/Vol] 98 mmol/L Normal 98-107 [facility] Comment on above: Performed By: #### H H, BMP #### [facility] [address] [place] [address] Circuit Board Drafter: Con Oseguera MD CO2 [Moles/Vol] 24 mmol/L Normal 20-31 [facility] Comment on above: Performed By: #### H H, BMP #### [facility] [address] [place] [address] Circuit Board Drafter: Con Oseguera MD Creatinine [Mass/Vol] 1.48 mg/dL High 0.70-1.20 [facility] Comment on above: Performed By: #### H H, BMP #### [facility] [address] [place] [address] [employer] Drafter: Con Oseguera MD GFR, Amer 55 mL/min Low >60 [facility] Comment on above: Performed By: #### H H, BMP #### [facility] [address] [place] [address] Circuit Board Drafter: Con Oseguera MD GFR,non Amer 46 mL/min Low >60 [facility] Comment on above: Performed By: #### H H, BMP #### [facility] [address] [place] [address] [employer] Drafter: Con Oseguera MD Glucose [Mass/Vol] 168 mg/dL High 70-99 [facility] Comment on above: Performed By: #### H H, BMP #### [facility] [address] [place] [address] Circuit Board Drafter: Con Oseguera MD Potassium [Moles/Vol] 4.6 mmol/L Normal 3.7-5.3 [facility] Comment on above: Performed By: #### H H, BMP #### [facility] [address] [place] [address] [employer] Drafter: Con Oseguera MD Sodium [Moles/Vol] 136 mmol/L Normal 135-144 [facility] Comment on above: Performed By: #### H H, BMP #### [facility] [address] [place] [address] [employer] Board Drafter: Con Oseguera MD Urea nitrogen [Mass/Vol] 34 mg/dL High 8- [facility] Comment on above: Performed By: #### H H, BMP #### [facility] [address] [place] [address] [employer] Board Drafter: Con Oseguera MD BUN/CRE Ratio NOT REPORTED Normal - [facility] Comment on above: Performed By: #### H H, BMP #### [facility] [address] [place] [address] [employer] Board Drafter: Con Oseguera MD Staging: NOT REPORTED Normal [facility] Comment on above: Performed By: #### H H, BMP #### [facility] [address] [place] [address] [employer] Board Drafter: Con Oseguera MD Hgb/Hcton 09-20-2018 Hematocrit (Bld) [Volume fraction] 26.8 % Low 41-53 [facility] Comment on above: Performed By: #### H H, BMP #### [facility] [place] [address] [employer] Board Drafter: Con Oseguera MD Hemoglobin (Bld) [Mass/Vol] 8.3 g/dL Low 13.5-17.5 [facility] Comment on above: Performed By: #### H H, BMP #### [facility] [address] [place] [address] Circuit Board Drafter: Con Oseguera MD Basic Metabolic Profon 09-07 (cont.) Normal [facility] Comment on above: Result Comment: Aver age GFR for 70 or more years old: 75 mL/min/1.73sq m Chronic Kidney Disease: <60 mL/min/1.73sq m Kidney failure: <15 mL/min/1.73sq m eGFR calculated using average adult body mass. Additional eGFR calculator available at: http://www.Bocada.QM Power/multiple_crcl_2012.htm Performed By: #### B MP #### [facility] [address] [place] [address] Circuit Board Drafter: Con Oseguera MD Anion gap [Moles/Vol] 10 mmol/L Normal 9-17 [facility] Comment on above: Performed By: #### B MP #### [facility] [place] [address] [employer] Board Drafter: Con Oseguera MD Calcium [Mass/Vol] 9.1 mg/dL Normal 8.6-10.4 [facility] Comment on above: Performed By: #### B MP #### [facility] [address] [place] [address] [employer] Drafter: Con Oseguera MD Chloride [Moles/Vol] 103 mmol/L Normal 98-107 [facility] Comment on above: Performed By: #### B MP #### [facility] [place] [address] Circuit Board Drafter: Con Oseguera MD CO2 [Moles/Vol] 25 mmol/L Normal 20-31 [facility] Comment on above: Performed By: #### B MP #### [facility] [place] [address] [employer] Board Drafter: Con Oseguera MD Creatinine [Mass/Vol] 1.25 mg/dL High 0.70-1.20 [facility] Comment on above: Performed By: #### B MP #### [facility] [place] [address] [employer] Board Drafter: Con Oseguera MD GFR, Amer >60 Normal >60 [facility] Comment on above: Performed By: #### B MP #### [facility] [address] [place] [address] [employer] Board Drafter: Con Oseguera MD GFR,non Amer 55 mL/min Low >60 [facility] Comment on above: Performed By: #### B MP #### [facility] [address] [place] [address] [employer] Board Drafter: Con Oseguera MD Glucose [Mass/Vol] 123 mg/dL High 70-99 [facility] Comment on above: Performed By: #### B MP #### [facility] [address] [facility] [address] [employer] Drafter: Con Oseguera MD Potassium [Moles/Vol] 4.7 mmol/L Normal 3.7-5.3 [facility] Comment on above: Performed By: #### B MP #### [facility] [address] [place] [address] [employer] Board Drafter: Con Oseguera MD Sodium [Moles/Vol] 138 mmol/L Normal 135-144 [facility] Comment on above: Performed By: #### B MP #### [facility] [address] [place] [address] [employer] Drafter: Con Oseguera MD Urea nitrogen [Mass/Vol] 28 mg/dL High 8-23 [facility] Comment on above: Performed By: #### B MP #### [facility] [address] [place] [address] [employer] Board Drafter: Con Oseguera MD BUN/CRE Ratio NOT REPORTED Normal 9-20 [facility] Comment on above: Performed By: #### B MP #### [facility] [address] [place] [address] [employer] Drafter: Con Oseguera MD Staging: NOT REPORTED Normal [facility] Comment on above: Performed By: #### B MP #### [facility] [address] [place] [address] [employer] Board Drafter: Con Oseguera MD Basic Metabolic Profon 08-31 (cont.) Normal [facility] Comment on above: Result Comment: Aver age GFR for 70 or more years old: 75 mL/min/1.73sq m Chronic Kidney Disease: <60 mL/min/1.73sq m Kidney failure: <15 mL/min/1.73sq m eGFR calculated using average adult body mass. Additional eGFR calculator available at: http://www.Amartus/multiple_crcl_2012.htm Performed By: #### B MP #### [facility] [address] [place] [address] [employer] Board Drafter: Con Oseguera MD Anion gap [Moles/Vol] 11 mmol/L Normal 9-17 [facility] Comment on above: Performed By: #### B MP #### [facility] [address] [place] [address] [employer] Board Drafter: Con Oseguera MD Calcium [Mass/Vol] 9.4 mg/dL Normal 8.6-10.4 [facility] Comment on above: Performed By: #### B MP #### [facility] [address] [place] [address] [employer] Board Drafter: Con Oseguera MD Chloride [Moles/Vol] 100 mmol/L Normal 98-107 [facility] Comment on above: Performed By: #### B MP #### [facility] [address] [place] [address] [employer] Board Drafter: Con Oseguera MD CO2 [Moles/Vol] 24 mmol/L Normal 20-31 [facility] Comment on above: Performed By: #### B MP #### [facility] [address] [place] [address] Circuit Board Drafter: Con Oseguera MD Creatinine [Mass/Vol] 1.35 mg/dL High 0.70-1.20 [facility] Comment on above: Performed By: #### B MP #### [facility] [address] [place] [address] [employer] Board Drafter: Con Oseguera MD GFR, Amer >60 Normal >60 [facility] Comment on above: Performed By: #### B MP #### [facility] [address] [place] [address] [employer] Board Drafter: Con Oseguera MD GFR,non Amer 51 mL/min Low >60 [facility] Comment on above: Performed By: #### B MP #### [facility] [address] [place] [address] [employer] Board Drafter: Con Oseguera MD Glucose [Mass/Vol] 133 mg/dL High 70-99 [facility] Comment on above: Performed By: #### B MP #### [facility] [address] [place] [address] [employer] Board Drafter: Con Oseguera MD Potassium [Moles/Vol] 4.8 mmol/L Normal 3.7-5.3 [facility] Comment on above: Performed By: #### B MP #### [facility] [address] [place] [address] [employer] Board Drafter: Con Oseguera MD Sodium [Moles/Vol] 135 mmol/L Normal 135-144 [facility] Comment on above: Performed By: #### B MP #### [facility] [address] [place] [address] [employer] Drafter: Con Oseguera MD Urea nitrogen [Mass/Vol] 35 mg/dL High 8 [facility] Comment on above: Performed By: #### B MP #### [facility] [address] [place] [address] [employer] Board Drafter: Con Oseguera MD BUN/CRE Ratio NOT REPORTED Normal 03-16 [facility] Comment on above: Performed By: #### B MP #### [facility] [address] [place] [address] [employer] Drafter: Con Oseguera MD Staging: NOT REPORTED Normal [facility] Comment on above: Performed By: #### B MP #### [facility] [address] [place] [address] Circuit Board Drafter: Con Oseguera MD XR ABDOMEN (KUB) (SINGLE [...] Crow Wright MD 08/21/18 Final result Normal [facility] Basic Metabolic Profon 08-16 (cont.) Normal [facility] Comment on above: Result Comment: Aver age GFR for 70 or more years old: 75 mL/min/1.73sq m Chronic Kidney Disease: <60 mL/min/1.73sq m Kidney failure: <15 mL/min/1.73sq m eGFR calculated using average adult body mass. Additional eGFR calculator available at: http://www.Amartus/multiple_crcl_2012.htm Performed By: #### B MP #### [facility] [address] [place] [address] [employer] Drafter: Con Oseguera MD Anion gap [Moles/Vol] 11 mmol/L Normal 9-17 [facility] Comment on above: Performed By: #### B MP #### [facility] [address] [place] [address] Circuit Board Drafter: Con Oseguera MD Calcium [Mass/Vol] 9.0 mg/dL Normal 8.6-10.4 [facility] Comment on above: Performed By: #### B MP #### [facility] [address] [place] [address] Circuit Board Drafter: Con Oseguera MD Chloride [Moles/Vol] 99 mmol/L Normal 98-107 [facility] Comment on above: Performed By: #### B MP #### [facility] [place] [address] [employer] Drafter: Con Oseguera MD CO2 [Moles/Vol] 26 mmol/L Normal 20-31 [facility] Comment on above: Performed By: #### B MP #### [facility] [place] [address] Circuit Board Drafter: Con Oseguera MD Creatinine [Mass/Vol] 1.46 mg/dL High 0.70-1.20 [facility] Comment on above: Performed By: #### B MP #### [facility] [place] [address] [employer] Board Drafter: Con Oseguera MD GFR, Amer 56 mL/min Low >60 [facility] Comment on above: Performed By: #### B MP #### [facility] [address] [place] [address] [employer] Board Drafter: Con Oseguera MD GFR,non Amer 46 mL/min Low >60 [facility] Comment on above: Performed By: #### B MP #### [facility] [address] [place] [address] Circuit Board Drafter: Con Oseguera MD Glucose [Mass/Vol] 160 mg/dL High 70-99 [facility] Comment on above: Performed By: #### B MP #### [facility] [address] [place] [address] Circuit Board Drafter: Con Oseguera MD Potassium [Moles/Vol] 4.4 mmol/L Normal 3.7-5.3 [facility] Comment on above: Performed By: #### B MP #### [facility] [address] [place] [address] Circuit Board Drafter: Con Oseguera MD Sodium [Moles/Vol] 136 mmol/L Normal 135-144 [facility] Comment on above: Performed By: #### B MP #### [facility] [address] [place] [address] Circuit Board Drafter: Con Oseguera MD Urea nitrogen [Mass/Vol] 42 mg/dL High 8-23 [facility] Comment on above: Performed By: #### B MP #### [facility] [address] [place] [address] Circuit Board Drafter: Con Oseguera MD BUN/CRE Ratio NOT REPORTED Normal 9-20 [facility] Comment on above: Performed By: #### B MP #### [facility] [address] [place] [address] Circuit Board Drafter: Cno Oseguera MD Staging: NOT REPORTED Normal [facility] Comment on above: Performed By: #### B MP #### [facility] [address] [place] [address] Circuit Board Drafter: Con Oseguera MD CBCon 07-11-2018 Erythrocyte distribution width (RBC) [Ratio] 18.8 % High 11.5-14.9 [facility] Comment on above: Performed By: #### C BC #### [facility] [address] [place] [address] Circuit Board Drafter: Con Oseguera MD Hematocrit (Bld) [Volume fraction] 23.1 % Low 41-53 [facility] Comment on above: Performed By: #### C BC #### [facility] [address] [place] [address] Circuit Board Drafter: Con Oseguera MD Hemoglobin (Bld) [Mass/Vol] 7.0 g/dL Critically low 13.5-17.5 [facility] Comment on above: Performed By: #### C BC #### [facility] [address] [place] [address] Circuit Board Drafter: Con Oseguera MD MCH (RBC) [Entitic mass] 21.3 pg Low 26-34 [facility] Comment on above: Performed By: #### C BC #### [facility] [address] [place] [address] Circuit Board Drafter: Con Oseguera MD MCHC (RBC) [Mass/Vol] 30.1 g/dL Low 31-37 [facility] Comment on above: Performed By: #### C BC #### [facility] [address] [place] [address] Circuit Board Drafter: Con Oseguera MD MCV (RBC) [Entitic vol] 70.8 fL Low 80-100 [facility] Comment on above: Performed By: #### C BC #### [facility] [address] [place] [address] Circuit Board Drafter: Con Oseguera MD Platelet mean volume (Bld) [Entitic vol] 8.8 fL Normal 6.0-12.0 [facility] Comment on above: Performed By: #### C BC #### [facility] [address] [place] [address] Circuit Board Drafter: Con Oseguera MD Platelets (Bld) [#/Vol] 484 10*3/uL High 150-450 [facility] Comment on above: Performed By: #### C BC #### [facility] [address] [place] [address] Circuit Board Drafter: Con Oseguera MD RBC (Bld) [#/Vol] 3.26 10*6/uL Low 4.5-5.9 [facility] Comment on above: Performed By: #### C BC #### [facility] [address] [place] [address] Circuit Board Drafter: Con Oseguera MD WBC (Bld) [#/Vol] 10.6 10*3/uL Normal 3.5-11.0 [facility] Comment on above: Performed By: #### C BC #### [facility] [address] [place] [address] Circuit Board Drafter: Con Oseguera MD NRBC Automated NOT REPORTED Normal [facility] Comment on above: Performed By: #### C BC #### [facility] [address] [place] [address] Circuit Board Drafter: Con Oseguera MD Vital Signs Date Time Vital Sign Value Performing Clinician Megan chauhan 03-27-2019 17:01-0400 BMI (Body Mass Index) 27.46 kg/m2 [facility] 03-27-2019 17:01-0400 Body Temperature 97.7 [degF] Josh Faith [facility], [place] 03-27-2019 17:01-0400 Body weight 72.58 [address] [facility] [place] 03-27-2019 17:01-0400 BP Diastolic 58 mm[Hg] [facility] , [place] 03-27-2019 17:01-0400 BP Systolic 142 mm[Hg] [facility] , [place] 03-27-2019 17:01-0400 Height 162.6 cm [facility] , [place] 03-27-2019 17:01-0400 Pulse (Heart Rate) 51 /min [facility], [place] 03-27-2019 17:01-0400 Pulse Oximetry 100 % [facility] , [place] 03-27-2019 17:01-0400 Respiratory Rate 14 /min [facility] [place] [facility] 03-16-2019 01:33-0400 BMI (Body Mass Index) 23.68 kg/m2 [facility] 03-16-2019 01:33-0400 Body Temperature 98.01 [degF] Javier [facility], [place] 03-16-2019 01:33-0400 Body weight 74.84 kg Javier [facility] , [place] 03-16-2019 01:33-0400 BP Diastolic 70 mm[Hg] [facility] , [place] 03-16-2019 01:33-0400 BP Systolic 145 mm[Hg] Javier [facility] , [place] 03-16-2019 01:33-0400 Height 177.8 cm [facility] , [place] 03-16-2019 01:33-0400 Pulse (Heart Rate) 100 /min Javier [facility], [place] 03-16-2019 01:33-0400 Pulse Oximetry 97 % [facility] , [place] 03-16-2019 01:33-0400 Respiratory Rate 16 /min Javier [facility], [place] 03-13-2019 15:00-0400 Pulse Oximetry 95 % [facility] [place] 03-13-2019 15:00-0400 Respiratory Rate 16 /min [facility] [place] 03-13-2019 12:07-0400 Body Temperature 97.3 [degF] [facility] [place] 03-13-2019 12:07-0400 BP Diastolic 54 mm[facility]Hg[facility] [place] 03-13-2019 12:07-0400 BP Systolic 119 mm[Hg] Wolfgang [facility], [place] 03-13-2019 12:07-0400 Pulse (Heart Rate) 73 /min [facility] [place] 03-12-2019 06:00-0400 BMI (Body Mass Index) 22.24 kg/m2 Wolfgang [facility], [place] 03-12-2019 06:00-0400 Body weight 70.3 kg [facility], [place] 03-08-2019 07:02-0400 Height 177.8 cm [place], [place] Encounters Encounter Date Encounter Type Care Provider Facility Start: 08-01-2023 Clinisync Result Encounter Chasidy Helton MD Work Phone: [facility] External Department Unsolicited Start: 08-01-2023 Clinisync Result Encounter Chasidy Helton MD Work Phone: [facility] External [facility] Unsolicited Start: 03-27-2019 End: 03-27-2019 Emergency department patient visit TALIA KOREYSusy DAWIT [facility] Start: 03-27-2019 End: 03-27-2019 Emergency department patient visit Josh Faith Work Phone: [facility] ED Comment on above: Acute kidney injury (HCC) (Primary Dx) Start: 03-16-2019 End: 03-16-2019 Emergency department patient visit JAVIER BUCHANAN [facility] Start: 03-16-2019 End: 03-16-2019 Emergency department patient visit Javier Buchanan Work Phone: [facility] ED Comment on above: Acute urinary retent ion (Primary Dx) Start: 03-07-2019 End: 03-13-2019 Evaluation and management of inpatient TALIA PASTOR [facility] Start: 03-07-2019 End: 03-13-2019 Evaluation and management of inpatient Wolfgang Moe Sara Work Phone: [facility] Med Surg Comment on above: VANESA (acute kidney in jury) (HCC) (Primary Dx); Pneumonia due to organism; Acute cystitis without hematuria Start: 12-10-2018 End: 12-13-2018 Evaluation and management of inpatient TALIA BECKMAN [facility] Start: 11-03-2018 End: 11-04-2018 Patient encounter procedure REBECA ORELLANA [facility] Start: 10-23-2018 End: 10-24-2018 Patient encounter procedure LEOBARDO HOGUE-HILDA [facility] Start: 10-12-2018 End: 10-13-2018 Patient encounter procedure [facility] Start: 09-28-2018 End: 09-29-2018 [facility] Start: 09-20-2018 End: 09-21-2018 Patient encounter procedure ELIZABETH Alonso [facility] Start: 09-07-2018 End: 09-08-2018 Patient encounter procedure ELIZABETH Alonso [facility] Start: 08-31-2018 End: 09-01-2018 Patient encounter procedure TALIA PASTOR [facility] Start: 08-21-2018 End: 08-24-2018 Patient encounter procedure SHARIFA Linares [facility] Start: 08-16-2018 End: 08-17-2018 Patient encounter procedure TALIA PASTOR [facility] Start: 07-11-2018 End: 07-12-2018 Patient encounter procedure SHARIFA [facility] Procedures Date Procedure Procedure Detail Performing Clinician [...] Glucose blood reagent strip Talia Stipe R [email or web address] Work Phone: Start: 03-11-2019 NEBULIZER TX INTERMITTENT SHARIFA PANGU LUR Start: 03-11-2019 Glucose blood reagent strip SHARIFA SPIVEY GULUR Start: 03-11-2019 Glucose blood reagent strip Talia Stipe R [employer] Work Phone: Start: 03-11-2019 Gluc bld gluc [...] Glucose blood reagent strip Talia Koreysusy R [employer] Work Phone: Start: 03-11-2019 INTAKE AND OUTPUT SHARIFA PANGULUR Start: 03-10-2019 Gluc bld gluc mntr dev cleared fda spec home use SHARIFA PANGULUR Start: 03-10-2019 NEBULIZER TX INTERMITTENT SHARIFA PANGU LUR Start: 03-10-2019 Glucose blood reagent strip SHARIFA SPIVEY GULUR Start: 03-10-2019 Glucose blood reagent strip Talia Beckman R [employer] Work Phone: Start: 03-10-2019 Glucose blood reagent strip SHARIFA SPIVEY GULUR Start: 03-10-2019 NEBULIZER TX INTERMITTENT SHARIFA PANGU LUR Start: 03-10-2019 Glucose blood reagent strip Talia Koreysusy R [employer] Work Phone: Start: 03-10-2019 Gluc bld gluc mntr dev cleared fda spec home use SHARIFA PANGULUR Start: 03-10-2019 NEBULIZER TX INTERMITTENT SHARIFA PANGU LUR Start: 03-10-2019 Glucose blood reagent strip SHARIFA SPIVEY GULUR Start: 03-10-2019 Glucose blood reagent strip Talia Beckman [employer] Work Phone: Start: 03-10-2019 Gluc bld gluc [...] Glucose blood reagent strip Talia Beckman [employer] Work Phone: Start: 03-10-2019 INTAKE AND OUTPUT SHARIFA PANGULUR Start: 03-09-2019 Glucose blood reagent strip SHARIFA SPIVEY GULUR Start: 03-09-2019 Gluc bld gluc mntr dev cleared fda spec home use SHARIFA PANGULUR Start: 03-09-2019 NEBULIZER TX INTERMITTENT SHARIFA PANGU LUR Start: 03-09-2019 Glucose blood reagent strip Talia Beckman [employer] Work Phone: Start: 03-09-2019 Glucose blood reagent strip SHARIFA SPIVEY GULUR Start: 03-09-2019 NEBULIZER TX INTERMITTENT SHARIFA PANGU LUR Start: 03-09-2019 Glucose blood reagent strip Taliasiddharth Beckman R [employer] Work Phone: Start: 03-09-2019 Gluc bld gluc mntr dev cleared fda spec home use SHARIFA PANGULUR Start: 03-09-2019 NEBULIZER TX INTERMITTENT SHARIFA PANGU LUR Start: 03-09-2019 Glucose blood reagent strip SHARIFA SPIVEY GULUR Start: 03-09-2019 Glucose blood reagent strip Talia Rk [employer] Work Phone: Start: 03-09-2019 ELEVATE HEELS OFF [...] mntr dev cleared fda spec home use SHRAIFA PANGULUR Start: 03-08-2019 NEBULIZER TX INTERMITTENT SHARIFA [...] dev cleared fda spec home use Mikaela [place] Work Phone: Start: 03-07-2019 Glucose blood reagent strip Wolfgang Moe Kwan [facility] Work Phone: Start: 03-07-2019 Culture bacterial quanttative colony count urine Wolfgang Abhi [facility] Work Phone: Start: 03-07-2019 Ct abdomen & pelvis w/o contrast material Mikaela [place] Work Phone: Start: 03-07-2019 Urinalysis microscopic only SHARIFA CHILDERSLUR Start: 03-07-2019 Urnls dip stick/tablet rgnt auto w/o microscopy SHARIFA MEJÍALUR Start: 03-07-2019 Ecg routine ecg w/least 12 lds i&r only Mikaela [place] Work Phone: Start: 03-07-2019 EKG REPORT Hpf [...] 12-13-2018 RESPIRATORY CARE EVALUATION AND TREAT SHARIFA MEJÍALUOdalis Start: 12-13-2018 Glucose blood reagent strip [...] Start: 03-13-2020 Creatinine monitoring Creatinine mon itoring [place], [place] Start: 03-13-2020 Potassium monitoring Potassium monit oring [place], [place] Start: 09-05-2019 A1C test (Diabetic o r Prediabetic) A1C test (Diabetic or Prediabetic) [place], [place] Start: 06-27-2019 DTaP/Tdap/Td vaccine (1 - Tdap) DTaP/Tdap/Td vaccine (1 - Tdap) [place], [place] Comment on above: Postponed from 03/25 (Insurance / Financial) Start: 04-20-2019 End: 04-20-2019 Office Visit 04/20/2019 Office Visit Urology Bryant Eller MD [address] [place], [place] [id number] [facility] [place] Start: 02-25-2019 Influenza vaccination Flu vaccine (# 1) [place], [place] Start: 11-22-2018 Annual Wellness Visi t (AWV) Annual Wellness Visit (AWV) [place], [place] Start: 11-30-2017 [object Object] Diabetic foot exam M [place], [place] Start: 05-28-2017 Lipid screen Lipid screen [place], [place] Start: 05-26-2016 Diabetic retinal exam Diabetic retin al exam [place], [place] Start: 03-22-2016 Shingles Vaccine (2 of 3) Shingles Vaccine (2 of 3) [place], [place] Basic Metabolic Pane l w/ Reflex to MG Basic Metabolic Panel w/ Reflex to MG Lab Routine Daily until discontinued starting 03/08/2019, 6 completed [place], [place] Comment on above: Daily until disconti nued starting 03/08/2019, 6 completed HHN Treatment HHN Treatment Respiratory Care Routine Every 4hr while awake until discontinued starting 03/08/2019 [place], [place] Comment on above: Every 4hr while awak e until discontinued starting 03/08/2019 Initiate Oxygen Ther apy Protocol Initiate Oxygen Therapy Protocol Respiratory Care Routine Daily until discontinued starting 03/07/2019 [place], [place] Comment on above: Daily until disconti nued starting 03/07/2019 POCT glucose [place], [place] Comment on above: 4X Daily (AC & HS) u ntil discontinued starting 03/08/2019 As Needed until disc ontinued starting 03/07/2019 Immunizations Immunization Date Immunization Notes Care Provider Fa cility 03-10-2018 influenza, injectabl e, quadrivalent, preservative free Wolfgang [place] 02-22-2017 influenza, injectabl e, quadrivalent, contains preservative Wolfgang [place], [place] 10-01-2016 pneumococcal conjuga te vaccine, 13 valent [facility] [place], [place] 04-01-2016 influenza, injectabl e, quadrivalent, contains preservative [facility], [place] 01-26-2016 zoster vaccine, live [facility], [place] 01-02-2016 zoster vaccine, live [facility], [place] 05-26-2015 influenza virus vacc ine, unspecified formulation [facility] , [place] 05-27-2014 pneumococcal polysaccharide vaccine, 23 valent [facility] 05-10-2013 influenza virus vacc ine, unspecified formulation [facility] [place] 05-11-2012 influenza virus vacc ine, unspecified formulation [facility] [place] 06-10-2011 influenza virus vacc ine, unspecified formulation [facility] [place] 05-19-2010 influenza virus vacc ine, unspecified formulation [facility] [place] Payers Date Payer Category Payer Unknown [facility] xxxxxx [id number] 2022-Present [phone] [address] [place] [address] [id number] 2015 Medicare BCBS MEDICARE AN THEM MEDIBLUE ESSENTIAL/PLUS xxxxxxxxxxxx 2015-Present [address] [address] [place] [address] xxxxxxxxxxxx [id number] 2015 Medicare [id number] 1935 Unknown [id number] 2.16.840.1.691972.3.579.2.176 1935 Unknown [id number] 2.16.840.1.661828.3.579.2.176 1937 Unknown [id number] 2.16.840.1.188295.3.579.2.176 1937 Unknown [id number] 2.16.840.1.377198.3.579.2.176 1937 Unknown [id number] 2.16.840.1.379333.3.579.2.176 1937 Unknown [id number] 2.16.840.1.796912.3.579.2.176 1937 Unknown [id number] 2.16.840.1.280478.3.579.2.176 1937 Unknown [id number] 2.16.840.1.752592.3.579.2.176 1937 Unknown [id number] 2.16.840.1.813969.3.579.2.176 1937 Unknown [id number] 2.16.840.1.725419.3.579.2.176 1937 Unknown [id number] 2.16.840.1.397724.3.579.2.176 1937 Unknown [id number] 2.16.840.1.746809.3.579.2.176 1937 Unknown [id number] 2.16.840.1.468690.3.579.2.176 1937 Unknown [id number] 2.16.840.1.758591.3.579.2.176 1937 Unknown [id number] 2.16.840.1.770571.3.579.2.176 1937 Unknown [id number] 2.16.840.1.063045.3.579.2.176 1937 Unknown [id number] 2.16.840.1.620259.3.579.2.176 Social History Date Type Detail Facility Start: 03-07-2019 End: 03-16-2019 Tobacco smoking status NHIS Former smoker [place], [place] End: 06-27-1967 History of tobacco use Current smoker [place], [place] Start: 03-07-2019 End: 03-16-2019 Cigarettes smoked current (pack per day[facility] Start: 03-07-2019 End: 03-16-2019 [facility] Start: 01-06-2015 Tobacco Comment quit over [facility] years a [facility] Start: 1935 [facility] [place] [facility] [...] Relation: Child Secondary Emergency Contact: Aleksandra Neville [facility] Mobile Relation: None Past Surgical [...] and older Afluria) 03/10/2018 Pneumococcal Conjugate 13-valent (Ligzvbz64) 10/01/2016 Pneumococcal Polysaccharide (Qkympabyi21) 05/27/2014 Zoster Live (Zostavax) 01/02/2016, 01/26/2016 Active Problems: Patient Active Problem List Diagnosis Code Benign essential hypertension I10 Renal cyst N28.1 SVT (supraventricular tachycardia) ([facility]) I47.1 Uncontrolled type 2 diabetes mellitus without complication, with long-term current use of insulin (HCC) E11.65, Z79.4 Atrial fibrillation (HCC) I48.91 Hx of simple renal cyst Z87.448 Body mass index (BMI) of 23.0-23.9 in adult Z68.23 Hypomagnesemia E83.42 Diverticulosis K57.90 Acute blood loss anemia D62 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, I42.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 Chronic diastolic heart failure, NYHA class 2 ([facility]) I50.32 CKD (chronic kidney disease) stage 3, GFR 30-59 ml/min ([facility]) N18.3 Hypercholesteremia E78.00 Mild pulmonary hypertension (HCC) [...] Wt 150 lb 9.2 oz (68.3 kg) HhW655% BMI 21.61 kg/m Last documented pain score (0-10 scale): Pain Level: 3 Last Weight: Wt Readings from Last 1 Encounters: 03/09/19 150 lb 9.2 oz (68.3 kg) Mental Status: oriented and alert IV Access: - None Nursing Mobility/ADLs: Walking Assisted Transfer Assisted Bathing Assisted Dressing Assisted Toileting Assisted Feeding Assisted Victim Witness Administrator Assisted Med Delivery whole Wound Care Documentation [...] Readmission: 19 Discharging to Facility/ Agency Name: [facility] (formerly called [facility]) Address: [place] [address] account coordinator crystal [phone] Fax: Putty Mixer And Applier/Line Up Machine Operator signature: ICIAN SECTION Prognosis: Guarded Condition at Discharge: Stable Rehab Potential (if transferring to Rehab): Guarded Recommended Labs or Other Treatments After Discharge: Physician Certification: I certify the above information and transfer of Miguel Neville is necessary for the continuing treatment of the diagnosis listed and that he requires Jail Facility for less 30 days. Update Admission [...] medications. --- Having trouble affording medications? Try [employer]! (This is not a hospital endorsed website, merely a recommendation based on my own personal experiences with [employer]) --- Questions? Contact me anytime. Javier Buchanan MD, JAYSON --- --- * Attachments The following attachments cannot be sent through Care Everywhere. * Urinary Retention (Malay) documented in this encounter History of Present [...] Donald OTA - 03/12/2019 10:40 AM EDT [facility] OCCUPATIONAL THERAPY MISSED TREATMENT NOTE INPATIENT Date: [...] in the note per my discussion with LICENSED GUIDE * Talia Pastor MD - 03/11/2019 1:42 PM EDT Miguel Neville is a 83 y.o. male patient. Current Facility-Administered Medications Medication Dose Route Frequency Provider Last Rate Last Dose ciprofloxacin (CIPRO) tablet 250 mg 250 mg Oral 2 times per day Talai Pastor MD 250 mg at 03/11/1939 atorvastatin [...] [place] Talia Pastor MD 2.5 mg at 03/11/19 [...] 650 mg 650 mg Oral Q4H PRN Tlaia Pastor MD 650 mg at 03/08/19 1227 [...] planning Late entry on patient seen 0600 Tlaia Pastor MD 03/11/2019 * Guru Rebolledo MD [...] in the note per my discussion with LICENSED GUIDE * Andrew Knott MD - 03/11/2019 11:25 [...] Subcutaneous Nightly albuterol 2.5 mg Nebulization Q4H MD sodium chloride flush 10 mL Intravenous 2 [...] Problem: Pneumonia Active Problems: SVT (supraventricular tachycardia) ([facility]) Benign essential hypertension Uncontrolled type 2 diabetes mellitus without complication, with long-term current use of insulin ([facility]) Atrial fibrillation ([facility]) CHF with cardiomyopathy ([facility]) Chronic diastolic heart failure, NYHA class 2 ([facility]) CKD (chronic kidney disease) stage 3, GFR 30-59 ml/min ([facility]) Mild pulmonary hypertension ([facility]) 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 ANDREW KNOTT MD [facility] * Candy Johnston RN - 03/10/2019 9:00 [...] 03/10/2019 11:46 AM EDT Physical Therapy Facility/Department: [facility] Daily Treatment Note NAME: Miguel [...] Problem: Pneumonia Active Problems: SVT (supraventricular tachycardia) ([facility]) Benign essential hypertension Uncontrolled type 2 diabetes mellitus without complication, with long-term current use of insulin (HCC) Atrial fibrillation (HCC) CHF with cardiomyopathy (HCC) Chronic diastolic heart failure, NYHA class 2 (HCC) CKD (chronic kidney disease) stage 3, GFR 30-59 ml/min ([facility]) Mild pulmonary hypertension ([facility]) 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 ANDREW KNOTT MD [facility] * Talia Pastor MD - 03/10/2019 10:31 AM EDT Migule Neville is a 83 y.o. male patient. [...] of care discussed with Dr Bart ARSHAD, SCIENTIFIC MANAGER - GLASS WASHER REASON FOR VISIT: Pl effusion, dyspnea I examined the patient myself The assessment and Plan in the note per my discussion with LICENSED GUIDE * Andrew Kontt MD - 03/09/2019 5:32 PM EDT [facility] [...] and corrected by editing. ANDREW KNOTT MD [facility] * Dayan Ledbetter, PT - 03/09/2019 3:33 PM EDT Physical Therapy REVISED GOALS [facility] Date: 03/09/19 Patient Name: Miguel Neville Room: Account: [id number] : 1935 (83 y.o.) Gender: male 03/09/19 [...] w/ CGA x 1 * Megan Jackson, OPERATING ROOM TECHNICIAN - 03/09/2019 12:31 PM EDT Physical Therapy [facility] Physical Therapy Progress Note Date: 03/09/19 Patient Name: Miguel Neville Room: Account: [id number] : 1935 (83 y.o.) Gender: male Discharge [...] states pt had been using O2 at [facility], walking with RW (had Rollator at home for 1 wk before pt developed PNA, admitted to [facility]); CHF is at point where fluid [...] exercises 1: Seated B LE ther ex, AROM/[place] resistance band, 15x each Other exercises 2: [...] Lagunas, OT - 03/09/2019 10:56 AM EDT [facility] Occupational Therapy Evaluation Date: 03/09/19 Patient Name: Miguel Neville Room: Account: [id number] : 1935 (83 y.o.) Gender: male Discharge [...] Assistance: Independent(uses RW) Transfer Assistance: Independent Active Swimming Pool Attendant: Yes Mode of Transportation: Car Occupation: Retired Additional Comments: Pt and Pt's daughter report that he has been at [facility] since Mid-December. Pt has been receiving PT/OT [...] UE Function LUE Strength Gross LUE Strength: [facility] L Hand General: 4+/5 LUE Strength Comment: Shoulder 4+/5, elbow 4+/5 LUE Tone: Normotonic LUE AROM (degrees) LUE AROM : WFL Left Hand AROM (degrees) Left Hand AROM: WFL RUE Strength Gross RUE Strength: [facility] R Hand General: 4+/5 RUE Strength [...] Patient Tolerated treatment well Functional Outcome Measures [facility] Daily Activity Inpatient How much help [...] much help for eating meals?: A Little [facility] In[facility] T-Scale Score : 38.66 ADL Inpatient CMS 0-100% Score: 46.65 ADL Inpatient [facility] G-Code Modifier : CK Goals Patient Goals [...] Subcutaneous Nightly albuterol 2.5 mg Nebulization Q4H MD sodium chloride flush 10 mL Intravenous 2 [...] ABGs: No results for input(s): PHART, PO2ART, TTK0HIK, YMD8QUH, BEART, F7MJYJBS, MNS2ZZK in the last 72 hours. PT/INR: No [...] PM EDT SW spoke to Crystal from [facility]. She will start the pre-cert for pt's [...] walker- up independently) Transfer Assistance: Independent Active Swimming Pool Attendant: Yes Mode of Transportation: Car Occupation: Retired [...] notified(nurse Cavazos) G-Code OutComes Score AM-PAC Score [facility] Inpatient Mobility Raw Score : 8 (03/08/19849) [facility] Inpatient T-Scale Score : 28.52 (03/08/19849) Mobility [...] Minutes Dayan Ledbetter PT * Xu Grimes, [facility] - 03/08/2019 7:17 AM EDT Found [...] facility list. Thank you, Michelle Mei PharmD, [facility] [phone] documented in this encounter* Michelle Mei RPH - 03/27/2019 6:32 PM EDT Medication History completed: New medications: none Medications discontinued: none Changes to dosing: Fenofibrate changed to nightly Furosemide changed to twice daily Potassium chloride changed to ER tablet formulation Stated allergies: As listed Other pertinent information: Medications confirmed with facility list. Thank you, Michelle Mei PharmD, [facility] [phone] documented in this encounter Assessments Diagnosis Pneumonia- [...] Documents on File Type Date Recorded Patient Rollway Worker Expl anation Advance Directives and Livin g Will 03/07/2018 9:31 AM [facility] Advance Directives and Livin g Will 01/09/2015 10:42 AM Power of Watch Crystal Grinder Power of Watch Crystal Grinder 01/09/2015 10:42 AM Latest Code Status on [...] To Contact Diagnoses Pneumonia Talia Pastor MD [address] [address] [facility] Reason Comments Abnormal Lab Creatinine: 2.83 Reason Comments Urinary Retention (unrecognized sect ion and content) No Status Records Found INFORMATION SOURCE (unrecogn ized section and content) DATE CREATED AUTHOR 03/28/2019 [facility] FOR RECORDS PERTAINING TO PATIENTS WHO ARE [...] BE BASED ON THE PRIMARY CLINICAL RECORDS. [employer] provides no warranty or guarantee of the accuracy or completeness of information in this document.
[2023-08-24 08:47] LABS: Bilirubin Urine NEGATIVE (NEGATIVE); Blood Urine TRACE-I (NEGATIVE); Clarity Urine SL CLOUDY (CLEAR); Color Urine LT. YELLOW (YELLOW); Glucose Urine UA NEGATIVE (NEGATIVE); Ketones Urine NEGATIVE (NEGATIVE); Leukocyte Esterase Urine LARGE (NEGATIVE); Nitrite Urine POSITIVE (NEGATIVE); Protein Urine NEGATIVE (NEG/TRACE); Specific Gravity Urine 1.015 (1.005-1.025); Urine Microscopic Indicated YES; Urobilinogen Urine 0.2 EU/dL (0.2-1.0); pH Urine 5.5 (5.0-9.0)
[2023-08-24 08:54] LABS: Bacteria Urine MODERATE #/HPF (NONE SEEN); Cast Seen? NONE SEEN #/LPF (NONE SEEN); Crystals Seen? None Seen #/HPF (None Seen); Mucus Urine NONE SEEN (NONE SEEN); Squamous Epithelial Cell Urine NONE SEEN #/LPF (NONE/RARE); Urine Culture Indicated YES; WBC Urine >100 #/HPF (NONE SEEN)
== END 2023-08-24 02:27 | disposition home or self-care (01) ==
LOC: LAB 02:26
PROVIDERS: Visit Provider Family Medicine
DX: N40.1 Benign prostatic hyperplasia with lower urinary tract symptoms (principal)
CPT/HCPCS: 81001; 87086; 87150; 87186

== ENCOUNTER 2023-09-19 02:06 | Outpatient (REF) | payer MEDICARE, SELFPAY ==
--- OUTSIDE RECORDS SUMMARY | 2023-09-19 02:11 | XMS_ITS | CCD ---
Author Organization [facility] Care Team Providers Care Pipe Jeeper Name Role Phone Dawit Talia Stipe Primary Care Provider [phone] SHARIFA MENON Referring Unavailable PASTOR, TALIA STIPE [...] Admitting Unavailable PASTOR, TALIA STIPE Attending Unavailable ANDREW DUNCAN Consulting Unavailable GURU ARRIAGA Consulting Unavailable JAVIER DEVRIES Attending Unavailable PASTOR, TALIA STIPE Primary Care Unavailable PASTOR, TALIA STIPE Primary Care Unavailable JOSH HESS Attending Unavailable PASTOR, TALIA STIPE Consulting Unavailable Unavailable Primary Care Provider UnavailWALDEMAR Chanel Primary Care Physician [phone] SANDY CESAR Attending Unavailable SANDY CESAR Attending Unavailable SANDY CESAR Attending Unavailable SANDY CESAR Attending Unavailable Allergies Allergy Classification Reported Allergen(s) Allergy Type Date of Onset Reaction(s) Facility (3 sources) diphenhydrAMINE Drug Allergy [address] [place] [address] (2 sources) diphenhydrAMINE; Translations: [diphenhydramine] Drug Allergy [facility] (1 source) No Known Medication Allergies; Translations: [No Known Medication Allergies] Propensity to adverse reactions (disorder) [facility] Repository Medications Current Medications Medication Drug Class(es) Dates Sig (Normalized) Sig (Original) acetaminophen 325 mg oral tablet (4 sources) Start: 03-07-2019 650 mg, Oral, EVERY 4 HOURS PRN, Pain Mild (1-3), Fever, For temp greater than 100.5 F (38 C), Starting 03/07/19 at 2122 Maximum dose of acetaminophen is 4000 mg from all sources in 24 hours. take 2 tablets by [facility] every four hours as needed for fever acetaminophen (TYLENOL) 325 MG tablet Ta ke 650 mg by mouth every 4 hours as needed for Fever 0 Active albuterol 0.83 mg/ml inhalant solution (1 source) beta2-Adrenergic Agonist Start: 03-08-2019 2.5 m g, Nebulization, EVERY 4 HOURS WHILE AWAKE, First dose on Jenn 03/08/19 at 0800 ALPRAZolam 0.25 mg oral tablet (2 sources) Benzodiazepine Start: 09-06-2023 alprazolam 0.2 5 mg Tab 30 tab(s), 0 Refill(s), Refills(s) 0 Start Date: 09/06/23 Status: Ordered atorvastatin 40 mg oral tablet (7 sources) HMG-CoA Reductase Inhibitor Start: 09-06-2023 atorvastatin 40 mg Tab 30 tab(s), 0 Refill(s), Refills(s) 0 Start Date: 09/06/23 Status: Ordered Start: 10-31-2017 End: 03-07-2019 take 40 mg by mouth once daily 40 mg, Oral, DAILY, Fir st dose on Jenn 03/08/19 at 0900 ciprofloxacin 500 mg oral tablet (4 sources) Quinolone Antimicrobial Start: 09-06-2023 ciprofloxacin 500 mg Tab 14 tab(s), 0 Refill(s), Refills(s) 0 Start Date: 09/06/23 Status: Ordered Start: 03-10-2019 End: 03-17-2019 take 1 tablet by mouth every twelve hours ciprofloxacin (CIPRO) 250 MG tablet Take 1 tablet by mouth every 12 hours for 7 days 14 tablet 0 03/10/2019 03/17/2019 Active Start: 03-10-2019 ciprofloxacin (CIPRO) tablet 250 mg dextromethorphan hydrobromide 20 mg / quiNIDine sulfate 10 mg oral capsule (1 source) Antiarrhythmic, Uncompetitive V-civbbw-L-aspartate Receptor Antagonist, Cytochrome P450 2D6 Inhibitor, Sigma-1 Agonist Start: 09-13-2023 Nuedexta oral capsule Refill(s) 0 Start Date: 09/13/23 Status: Ordered dilTIAZem hydrochloride 60 mg oral tablet (7 sources) Calcium Channel Gregg Start: 09-06-2023 diltia zem 60 mg Tab 120 tab(s), 0 Refill(s), Refills(s) 0 Start Date: 09/06/23 Status: Ordered Start: 05-12-2015 End: 03-07-2019 take 240 mg by mouth once daily 240 mg, Oral, DAILY, F irst dose on Jenn 03/08/19 at 0900 Do not crush or break. take 1 tablet by bette th four times daily diltiazem (CARDIZEM) 60 MG tablet Take 60 mg by mouth 4 times daily 0 Active docusate sodium 100 mg oral capsule (1 source) Start: 09-13-2023 take 1 capsule by mouth twice daily as needed for constipation Colace 100 mg Cap 100 mg = 1 cap(s), Oral, BID, PRN for constipation, # 20 cap(s), Refills(s) 0 Start Date: 09/13/23 Status: Ordered doxazosin 2 mg oral tablet (3 sources) alpha-Adrenergic Gregg take 1 tablet by mouth once daily doxazosin (CARDURA) 2 MG tablet Take 2 mg by mouth nightly 0 Active fenofibrate 145 mg oral tablet (8 sources) Peroxisome Proliferator Receptor alpha Agonist Start: 09-06-2023 fenofibrate 145 mg Tab 30 tab(s), 0 Refill(s), Refills(s) 0 Start Date: 09/06/23 Status: Ordered Start: 03-12-2019 End: 03-27-2019 take 1 tablet by mouth once daily fenofibrate (TRICOR) 145 MG tablet TAKE 1 TABLET BY MOUTH EVERY DAY 90 tablet 3 03/12/2019 03/27/2019 Discontinued (DOSE ADJUSTMENT) Start: 03-08-2019 take 160 mg by mouth once andreea y 160 mg, Oral, DAILY, First dose on Jenn 03/08/19 at 0900 Substituted for Fenofibrate (Non-Formulary Dose). Start: 06-22-2017 End: 03-07-2019 take 1 tablet by mouth once daily fenofibrate (TRICOR) 145 MG tablet TAKE 1 TABLET BY MOUTH EVERY DAY 90 tablet 3 06/22/2017 03/07/2019 Discontinued (LIST CLEANUP) finasteride 5 mg oral tablet (5 sources) 5-alpha Reductase Inhibitor Start: 09-13-2023 finasteride 5 mg Tab Refills(s) 0 Start Date: 09/13/23 Status: Ordered Start: 10-19-2018 take 1 tablet by bette th once daily finasteride (PROSCAR) 5 MG tablet Take 5 mg by mouth daily 11 10/19/2018 Active furosemide 40 mg oral tablet (6 sources) Loop Diuretic Start: 09-13-2023 furosemide 40 mg Tab Refills(s) 0 Start Date: 09/13/23 Status: Ordered Start: 12-13-2018 End: 03-07-2019 take 40 mg by mouth once daily 40 mg, Oral, DAILY, Fir st dose on Jenn 03/08/19 at 0900 take 1 tablet by bette th twice daily furosemide (LASIX) 40 MG tablet Take 40 mg by mouth 2 times daily 0 Active take 1 tablet by bette th three times daily furosemide (LASIX) 40 MG tablet Take 40 mg by mouth 3 times daily 0 Active glucagon (rdna) 1 mg injection (2 sources) Antihypoglycemic Agent Start: 09-13-2023 glucago n Injection 1 mg Refills(s) 0 Start Date: 09/13/23 Status: Ordered Start: 03-07-2019 take 1 mL intravenou s route every hour 1 mg, Intramuscular, PRN, Low blood sugar, Blood glucose less than 70 mg/dL and patient NOT ALERT or NPO and does not have IV access., Starting Tue03/07/19 at 2121 After administration, attempt intravenous access and start D5W at 100 mL/hr. Repeat blood glucose in 15 minutes x2 and notify provider. 150 ml glucose 50 mg/ml injection (3 sources) Start: 03-07-2019 15 g, Oral, OR N, Low blood sugar, Starting Tue03/07/19 at 2121 If blood glucose less than 50 mg/dL [...] NOT ALERT or NPO., Starting Tue03/07/19 at 2121 If patient does not respond within 5 [...] PRN, Low blood sugar, Starting Tue03/07/19 at 2121 Start infusion following administration of dextrose 50% or glucagon. 12 hr guaiFENesin 600 mg extended release oral tablet (3 sources) take 1 tablet by mouth once daily guaiFENesin (MUCINEX) 600 MG extended release tablet Take 600 mg by mouth daily 0 Active 1.5 ml insulin glargine 300 unt/ml pen injector (11 sources) Insulin Analog Start: 09-06-2023 Toujeo SoloStar 300 units/mL subcutaneous solution 1 mL, 0 Refill(s), Refills(s) 0 Start Date: 09/06/23 Status: Ordered Start: 03-08-2019 inject 10 [IU] by benson bcutaneous injection once daily in the morning 10 [...] 2 Units 350 and above 3 Units 3 ml insulin aspart, human 100 unt/ml pen injector (11 sources) Insulin Analog Start: 09-13-2023 NovoLOG FlexPe n 100 units/mL injectable solution Refills(s) 0 Start Date: 09/13/23 Status: Ordered Start: 01-20-2018 End: 03-07-2019 insulin aspart (NOVOLOG FLEX PEN) 100 UNIT/ML injection pen 5 units breakfast, [...] the skin Daily with supper 0 Active levothyroxine sodium 0.075 mg oral tablet (1 source) l-Thyroxine Start: 09-13-2023 levothyroxine 75 mcg (0.075 mg) Tab Refills(s) 0 Start Date: 09/13/23 Status: Ordered linagliptin 5 mg oral tablet (1 source) [...] constipation. magnesium oxide 400 mg oral tablet (5 sources) Start: 09-13-2023 magnesium oxid e 400 mg Tab Refills(s) 0 Start Date: 09/13/23 Status: Ordered Start: 03-08-2019 take 400 mg by mouth once daily 400 mg, Oral, DAILY, First dose on Jenn 03/08/19 at 0900 Start: 02-15-2018 take 1 tablet by bette th once daily MAGNESIUM-OXIDE 400 (241.3 Mg) MG TABS tablet Indications: Hypomagnesemia TAKE 1 TABLET BY MOUTH DAILY 30 tablet 11 02/15/2018 Active Meclizine (2 sources) Antiemetic Start: 09-06-2023 meclizine 25 m g Tab 30 tab(s), 0 Refill(s), Refills(s) 0 Start Date: 09/06/23 Status: Ordered 24 hr metoprolol succinate 100 mg extended release oral tablet (5 sources) beta-Adrenergic Gregg Start: 09-13-2023 metoprolol 100 mg ER Tab Refills(s) 0 Start Date: 09/13/23 Status: Ordered Start: 07-27-2017 take 1 tablet by bette th once daily metoprolol succinate (TOPROL XL) 100 MG extended release tablet TAKE 1 TABLET BY MOUTH DAILY 90 tablet 3 07/27/2017 Active mirtazapine 30 mg oral table t (5 sources) Start: 09-06-2023 mirtazapine 30 mg Tab 30 tab(s), 0 Refill(s), Refills(s) 0 Start Date: 09/06/23 Status: Ordered take 1 tablet by mouth once andreea y mirtazapine (REMERON) 30 MG tablet Take 30 mg by mouth nightly 0 Active 2 ml ondansetron 2 mg/ml injection (1 source) Serotonin-3 Receptor Antagonist Start: 03-07-2019 4 mg, Intravenous, EVERY 6 HOURS PRN, Nausea, Starting Tue03/07/19 at 2122 Potassium Chloride (5 sources) Start: 09-13-2023 Potassium Chlo ride (Lsm-Bzeo-Ear M20) 20 mEq oral tablet, extended release Refills(s) 0 Start Date: 09/13/23 Status: Ordered take 1 tablet by bette th once daily, then take 1 tablet by mouth potassium chloride (KLOR-CON M) 20 MEQ extended release tablet Take 20 mEq by mouth daily 0 Active End: 03-27-2019 take 20 mEq by mouth once daily potassium chloride (KL OR-CON) 20 MEQ packet Take 20 mEq by mouth daily 0 03/27/2019 Discontinued (Alternate therapy) SITagliptin 100 mg oral tablet (4 sources) Dipeptidyl Peptidase 4 Inhibitor Start: 09-13-2023 Januvia 100 mg Tab Refills(s) 0 Start Date: 09/13/23 Status: Ordered Start: 10-26-2018 take 1 tablet by bette th once daily SITagliptin (JANUVIA) 50 MG tablet Take 1 tablet by mouth daily 90 tablet 3 10/26/2018 Active 3 ml sodium chloride 9 mg/ml injection (2 sources) Start: 03-07-2019 10 mL, Intrave nous, EVERY 12 HOURS SCHEDULED (2 times per day), First dose on Tue03/07/19 at 2145 Start: 03-07-2019 take 10 mL intraveno us route once as needed 10 mL, Intravenous, PRN, Line Care, After every IV line use, Starting Tue03/07/19 at 2 Sodium Phosphate, Dibasic / Sodium Phosphate, Monobasic (1 source) Start: 09-13-2023 Fleet Enema Re fill(s) 0 Start Date: 09/13/23 Status: Ordered spironolactone 25 mg oral tablet (1 source) Aldosterone Antagonist Start: 09-13-2023 spironolactone 25 mg Tab Refills(s) 0 Start Date: 09/13/23 Status: Ordered tamsulosin hydrochloride 0.4 mg oral capsule (6 sources) alpha-Adrenergic Gregg Start: 09-13-2023 tamsulosin 0.4 mg Ca p Refills(s) 0 Start Date: 09/13/23 Status: Ordered Start: 03-09-2019 take 2 capsules by m out once daily tamsulosin (FLOMAX) 0.4 MG capsule [...] capsule 0 12/21/2018 03/07/2019 Discontinued (LIST CLEANUP) traZODone hydrochloride 50 mg oral tablet (2 sources) Serotonin Reuptake Inhibitor Start: 09-13-2023 traZODONE 50 mg Tab Refills(s) 0 Start Date: 09/13/23 Status: Ordered Start: 09-06-2023 traZODONE 50 m g Tab 90 tab(s), 0 Refill(s), Refills(s) 0 Start Date: 09/06/23 Status: Ordered Vitamin E (5 sources) Start: 09-13-2023 vitamin E Refi lls(s) 0 Start Date: 09/13/23 Status: Ordered Start: 03-08-2019 take 400 [IU] by mouth once da conor 400 Units, Oral, DAILY, First dose on Jenn 03/08/19 at 0900 ziprasidone 20 mg oral capsule (1 source) Atypical Antipsychotic Start: 03-08-2019 take 20 mg by mouth twice daily at mealtime 20 mg, Oral, 2 TIMES DAILY WITH MEALS, First dose on Jenn 03/08/19 at 0800 May cause prolongation of QT interval. Take with food. Completed/Discontinued Medications Medication Drug Class(es) [...] First dose on Jenn 03/08/19 at 0900 1 ml haloperidol 5 mg/ml injection (1 source) Typical Antipsychotic Start: 03-07-2019 End: 03-07-2019 take 5 mg intravenous route once as needed 5 mg, Intravenous, ONCE PRN, Agitation, agitation, Starting 03/07/19 at 2122, For 1 dose IM route of administration preferred. Because of the risk of TdP and QT prolongation, ECG monitoring is recommended if haloperidol is given IV. lidocaine hydrochloride 0.02 mg/mg topical gel (1 source) Antiarrhythmic, Amide Local Anesthetic Start: 03-16-2019 End: 03-16-2019 lidocaine (XYLOCAINE) 2 % jelly Problems Active Problems Problem Classification Problem Date Documented Date Episodic/Chronic Acute and unspecified renal failure (5 sources) Acute injury of kidney; Translations: [VANESA (acute kidney injury) (HCC)] Onset: 01-06-2015 03-11-2019 Biliary tract disease (1 source) Disorder of gallbladder 09-09-2023 Episodic Cardiac dysrhythmias (8 sources) Supraventricular tachycardia; Translations: [Atrial fibrillation] Onset: 01-06-2015 03-08-2019 Chronic Chronic kidney disease (7 sources) Chronic kidney disease stage 3; Translations: [Chronic kidney disease, stage 3 unspecified] Onset: 07-03-2018 03-08-2019 Chronic Congestive heart failure; nonhypertensive (11 sources) Chronic diastolic heart failure; Translations: [Congestive heart failure] Onset: 12-06-2018 03-08-2019 Chronic Deficiency and other anemia (4 sources) Anemia due to chronic blood loss; Translations: [Chronic blood loss anemia] Onset: 12-11-2018 03-08-2019 Chronic Delirium, dementia, and amnestic and other cognitive disorders (3 sources) Dementia; Translations: [Unspecified dementia without behavioral disturbance] Onset: 09-06-2023 Chronic Diabetes mellitus without complication (5 sources) Type 2 diabetes mellitus without complication; Translations: [Diabetes mellitus] Onset: 01-06-2015 03-08-2019 Chronic Disorders of lipid metabolism (4 sources) Hypercholesterolemia; Translations: [Hyperlipidemia] Onset: 06-05-2018 12-11-2018 Chronic Diverticulosis and diverticulitis (3 sources) Diverticular disease; Translations: [Diverticulosis] Onset: 07-11-2018 07-11-2018 Chronic Essential hypertension (5 sources) Benign essential hypertension; Translations: [Hypertensive disorder] 03-08-2019 Chronic Genitourinary symptoms and ill-defined conditions (14 sources) H/O: kidney disease; Translations: [Retention of urine] Onset: 01-08-2015 01-08-2015 Episodic Heart valve disorders (3 sources) Tricuspid valve regurgitation; 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] Onset: 07-03-2018 12-11-2018 Chronic Hyperplasia of prostate (3 sources) Benign prostatic hypertrophy with outflow obstruction; Translations: [Benign prostatic hyperplasia with lower urinary tract symptoms] Onset: 09-06-2023 Chronic Other and ill-defined heart disease (3 sources) Bilateral enlargement of atria; 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] Onset: 07-03-2018 12-11-2018 Chronic Other diseases of kidney and ureters (1 source) Urinary tract obstruction; Translations: [Other obstructive and reflux uropathy] Onset: 09-06-2023 Episodic Other diseases of kidney and ureters (1 source) Acquired renal cyst 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; Translations: [Cyst of kidney, acquired] Onset: 09-13-2023 Episodic Other diseases of kidney and ureters (1 source) Cyst of kidney 09-13-2023 Episodic Other diseases of kidney and ureters (3 sources) Cyst of kidney; Translations: [Renal cyst] Onset: 08-18-2012 08-18-2012 Other ear and sense organ disorders (1 source) Hearing loss 09-09-2023 Chronic Other infections; including parasitic (1 source) H/O: infectious disease; Translations: [Personal history of other infectious and parasitic diseases] Onset: 09-06-2023 Episodic Other infections; including parasitic (2 sources) History of bacterial infection 09-06-2023 Episodic Other male genital disorders (2 sources) Disorder of penis; Translations: [Other specified disorders of penis] Onset: 09-13-2023 Chronic Other male genital disorders (2 sources) Paraphimosis; Translations: [Paraphimosis] Onset: 09-13-2023 Episodic Other nutritional; endocrine; and metabolic disorders (3 [...] of 23.0-23.9 in adult] Onset: 02-21-2015 02-21-2015 Unclassified (1 source) Non-alcoholic fatty liver disease 09-09-2023 Urinary tract infections (4 sources) Acute cystitis; Translations: [Urinary tract infectious disease] Onset: 09-06-2023 Episodic Past or Other Problems Problem Classification Problem Date Documented Date Episodic/Chronic Acute posthemorrhagic anemia (3 sources) Acute posthemorrhagic anemia; Translations: [Acute blood loss anemia] Onset: 07-21-2018 07-21-2018 Episodic Fluid and electrolyte disorders (3 sources) Hypokalemia; Translations: [Hypokalemia] Onset: 02-14-2017 Resolved: 12-11-2018 12-11-2018 Episodic Pneumonia (except that caused by tuberculosis or sexually transmitted disease) (5 sources) Pneumonia; Translations: [Infective pneumonia] Onset: 03-07-2019 03-08-2019 Episodic Results Test Name Value Interpretation Reference Range Facility [facility] 09-14-2023 Lab Reports [id number] #1.00TIFF Normal [facility] Ambulatory Visit Summaryon 0 09-13-2023 Ambulatory Visit Summary JUAN RAMON NEVILLE :1935 Visit Date:09/13/2023 Ambulatory Visit Instructions Your Diagnosis Urinary retention Your Care Team Attending Physician - SANDY CESAR PA-C Primary Care Physician - MARIVEL RUELAS, WALDEMAR Umaña This Is Your Medications List alprazolam (alprazolam 0.25 mg Tab) atorvastatin (atorvastatin 40 mg Tab) dextromethorphan-karl nidine (Nuedexta oral capsule) diltiazem (diltiazem 60 mg Tab) docusate (Colace 100 mg Cap) fenofibrate (fenofibrate 145 mg Tab) finasteride (finasteride 5 mg Tab) furosemide (furosemide 40 mg Tab) glucagon (glucagon Injection 1 mg) insulin aspart (NovoLOG FlexPen 100 units/mL injectable solution) insulin glargine (Toujeo SoloStar 300 units/mL subcutaneous solution) levothyroxine (levothyroxine 75 mcg (0.075 mg) Tab) magnesium oxide (magnesium oxide 400 mg Tab) meclizine (meclizine 25 mg Tab) metoprolol (metoprolol 100 mg ER Tab) mirtazapine (mirtazapine 30 mg Tab) potassium chloride (Potassium Chloride (Kks-Ikri-Ehu M20) 20 mEq oral tablet, extended release) sitagliptin (Januvia 100 mg Tab) sodium biphosphate-sodium phosphate (Fleet Enema) spironolactone (spironolactone 25 mg Tab) tamsulosin (tamsulosin 0.4 mg Cap) trazodone (traZODONE 50 mg Tab) vitamin E Procedures Performed Cystoscopy (03/27/2019), Colonoscopy (07/17/2018), Endoscopy (06/16/2018), Colonoscopy (06/13/2018), Appendectomy;, Cholecystectomy, Hernia, Tonsillectomy. Discharge Vitals Temperature (Temporal Artery) 36.9 ?C Heart Rate (Peripheral) 72 Respiratory Rate 16 Blood Pressure 111/52 Height 155 cm Height 61 in Weight 74.8 kg Weight 164.56 lb BMI 31.13 Medications What How Much When Instructions Unchanged alprazolam (alprazolam 0.25 mg Tab) 30 tab(s), 0 Refill(s) Unchanged atorvastatin (atorvastatin 40 mg Tab) 30 tab(s), 0 Refill(s) Unchanged dextromethorphan-karl nidine (Nuedexta oral capsule) Unchanged diltiazem (diltiazem 60 mg Tab) 120 tab(s), 0 Refill(s) Unchanged docusate (Colace 100 mg Cap) 1 Capsules By Mouth 2 times a day as needed for for constipation Unchanged fenofibrate (fenofibrate 145 mg Tab) 30 tab(s), 0 Refill(s) Unchanged finasteride (finasteride 5 mg Tab) Unchanged furosemide (furosemide 40 mg Tab) Unchanged glucagon (glucagon Injection 1 mg) Unchanged insulin aspart (NovoLOG FlexPen 100 units/ mL injectable solution) Unchanged insulin glargine (Toujeo SoloStar 300 units/ mL subcutaneous solution) 1 mL, 0 Refill(s) Unchanged levothyroxine (levothyroxine 75 mcg (0.075 mg) Tab) Unchanged magnesium oxide (magnesium oxide 400 mg Tab) Unchanged meclizine (meclizine 25 mg Tab) 30 tab(s), 0 Refill(s) Unchanged metoprolol (metoprolol 100 mg ER Tab) Unchanged mirtazapine (mirtazapine 30 mg Tab) 30 tab(s), 0 Refill(s) Unchanged potassium chloride (Potassium Chloride (Idy-Fxft-Rzf M20) 20 mEq oral tablet, extended release) Unchanged sitagliptin (Januvia 100 mg Tab) Unchanged sodium biphosphate-sodium phosphate (Fleet Enema) Unchanged spironolactone (spironolactone 25 mg Tab) Unchanged tamsulosin (tamsulosin 0.4 mg Cap) Unchanged trazodone (traZODONE 50 mg Tab) Unchanged vitamin E Allergies diphenhydrAMINE Problems Ongoing - Any problem that you are currently receiving treatment for. BPH with urinary obstruction CKD (chronic kidney disease) stage 3, GFR 30-59 ml/min Dementia Diabetes mellitus Frequent UTI Gallbladder disease Hearing loss History of Clostridium difficile infection Hyperlipidemia Hypertension Non-alcoholic fatty liver disease Urinary retention Patient Survey You may receive a survey via text or e-mail asking about your office visit. Please share your experience with us by completing your survey. We appreciate your feedback and thank you for choosing us for your care. Normal [facility] 09-13-2023 Lab Reports [id number] #[id number] Normal [facility] 09-12 [facility] [id number] #1.00TIFF [facility] Patient Educationon 09-13-19 Patient Education Urology Hematuria, Adult Hematuria is blood in the urine. Blood may be visible in the urine, or it may be identified with a test. This condition can be caused by infections of the bladder, urethra, kidney, or prostate. Other possible causes include: ? Kidney stones. ? Cancer of the urinary tract. ? Too much calcium in the urine. ? Conditions that are passed from parent to child (inherited conditions). ? Exercise that requires a lot of energy. Infections can usually be treated with medicine, and a kidney stone usually will pass through your urine. If neither of these is the cause of your hematuria, more tests may be needed to identify the cause of your symptoms. It is very important to tell your health care provider about any blood in your urine, even if it is painless or the blood stops without treatment. Blood in the urine, when it happens and then stops and then happens again, can be a symptom of a very serious condition, including cancer. There is no pain in the initial stages of many urinary cancers. Follow these instructions at home: Medicines ? Take [id number] and prescription medicines only as told by your health care provider. ? If you were prescribed an antibiotic medicine, take it as told by your health care provider. Do not stop taking the antibiotic even if you start to feel better. Eating and drinking ? Drink enough fluid to keep your urine pale yellow. It is recommended that you drink 3?4 quarts (2.8?3.8 L) a day. If you have been diagnosed with an infection, drinking cranberry juice in addition to large amounts of water is recommended. ? Avoid caffeine, tea, and carbonated beverages. These tend to irritate the bladder. ? Avoid alcohol because it may irritate the prostate (in males). General instructions ? If you have been diagnosed with a kidney stone, follow your health care provider's instructions about straining your urine to catch the stone. ? Empty your bladder often. Avoid holding urine for long periods of time. ? If you are female: ? After a bowel movement, wipe from front to back and use each piece of toilet paper only once. ? Empty your bladder before and after sex. ? Pay attention to any changes in your symptoms. Tell your health care provider about any changes or any new symptoms. ? It is up to you to get the results of any tests. Ask your health care provider, or the department that is doing the test, when your results will be ready. ? Keep all follow-up visits. This is important. Contact a health care provider if: ? You develop back pain. ? You have a fever or chills. ? You have nausea or vomiting. ? Your symptoms do not improve after 3 days. ? Your symptoms get worse. Get help right away if: ? You develop severe vomiting and are unable to take medicine without vomiting. ? You develop severe pain in your back or abdomen even though you are taking medicine. ? You pass a large amount of blood in your urine. ? You pass blood clots in your urine. ? You feel very weak or like you might faint. ? You faint. Summary ? Hematuria is blood in the urine. It has many possible causes. ? It is very important that you tell your health care provider about any blood in your urine, even if it is painless or the blood stops without treatment. ? Take verk-fhj-[id number] and prescription medicines only as told by your health care provider. ? Drink enough fluid to keep your urine pale yellow. This information is not intended to replace advice given to you by your health care provider. Make sure you discuss any questions you have with your health care provider. Document Revised: 02/11/2021 Document Reviewed: 02/11/2021 [employer] Patient Education ? 2022 [employer]. [facility] Transfer Inon 09-13-2023 Transfer In [id number] #1.00TIFF [facility] Urology Office/Clinic Noteon 09-13-2023 Urology Office/Clinic Note Chief Complaint Pt here today for cath change HPI Staff Dementia pt is here today for a catheter change. Resident @ [facility]. *Finasteride 5mg and Flomax 2 caps/day per MAR Retention dx'd in ER August 2022. pedroza placed. enlarged prostate noted on multiple CTs. uro discussed void trial/prostate procedure. family declined. has been having q1mo pedroza changes since then. Did have 1 episode of paraphimosis 9cm [employer] exophytic cyst noted on CTs Spring 2022, stable compared to CT Summer 2021 Last documented cath change per Urology in [place] notes was 04/15/23 (16fr coude) Review of Systems PHQ Score Initial Depression Screen Score: 0 SCORE unable to obtain, pt has severe dementia Physical Exam Vitals & Measurements T: 36.9 ?C(Temporal Artery) HR: 72(Peripheral) RR: 16 BP: 111/52 HT: 61 in HT: 155 cm WT: 74.8 kg WT: 164.56 lb BMI: 31.13 Lungs: normal respiratory effort Cardio: regular rate, good distal perfusion Abdomen: nondistended Procedure The Pedroza was changed in the office today with significant difficulties - pt was unable to get onto exam table due to limited mobility, we then attempted to change pedroza with him seated in wheelchair but he was expressing discomfort and this was not working, so we had him stand while I changed it. this required 2 staff members to hold him in standing position (still unsteady). removal of existing pedroza was difficult, balloon deflated, pedroza removed - showed a lot of encrustation and immediate return of bright red blood. penis cleaned w betadine and 16fr coude cath inserted. this required extra time as pt was expressing discomfort, moving, crying. once in bladder and inserted fully to hub, balloon was inflated w 12cc fluid and pedroza connected to overnight bag. pink urine noted in tubing without clots. stat lock applied and ensures no tension to pedroza. Assessment/Plan 1. Urinary retention (R33.9: Retention of urine, unspecified) review of external records: retention dx'd in ER August 2022. pedroza placed. enlarged prostate noted on multiple CTs. uro discussed void trial/prostate procedure. family declined. has been having q1mo pedroza changes since then. Ordered: Body Mass Index (BMI) documented 3008F Current tobacco non-user 1036F Depression Screening Negative 3352F Discharge medications reconciled with current medications in outpatient record 1111F E&M of Est. Patient Low 20-29 Min 36799 Influenza immunization status assessed 1030F Insertion of temp indwelling bladder cath, fractured cath, altered anatomy, complicated 81691 Medication list documented in medical record 1159F Most recent diastolic blood pressure <80 mm Hg 3078F Patient screen for fall risk: no falls in last year or 1 fall with no injury in last year 1101F Review of all meds by a prescribing practitioner or clinical pharmacist documented in EHR 1160F Systolic BP <130 mm Hg (Most Recent) 3074F 2. 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 instructions to keep tension off pedroza written on orders to ECF. Ordered: E&M of Est. Patient Low 20-29 Min 67278 Insertion of temp indwelling bladder cath, fractured cath, altered anatomy, complicated 91017 3. Gross hematuria (R31.0: Gross hematuria) with removal of previous pedroza. likely due to encrustation as this pedroza has been in place >3 mos. advised ECF may see hematuria in pedroza for next few days. increase fluids. ok as long as it's draining. Ordered: E&M of Est. Patient Low 20-29 Min 90020 Insertion of temp indwelling bladder cath, fractured cath, altered anatomy, complicated 77971 4. 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 Patient Low 20-29 Min 50044 5. Paraphimosis (N47.2: Paraphimosis) review of external records: did have 1 episode of paraphimosis previously foreskin pulled back for procedure and replaced appropriately after pedroza inserted. Ordered: E&M of Est. Patient Low 20-29 Min 89615 Follow-up With When Contact Information [address] [place] location for pedroza change w LIDA Additional Instructions: Patient Education Hematuria, Adult Problem List/Past Medical History Ongoing BPH with urinary obstruction CKD (chronic kidney disease) stage 3, GFR 30-59 ml/min Dementia Diabetes mellitus Frequent UTI Gallbladder disease Gross hematuria Hearing loss History of Clostridium difficile infection Hyperlipidemia Hypertension Non-alcoholic fatty liver disease Paraphimosis Penile erosion Renal cyst Urinary retention Historical No qualifying data Procedure/Surgical History Cystoscopy (03/27/2019), Colonoscopy (07/17/2018), Endoscopy (06/16/2018), Colonoscopy (06/13/2018), Appendectomy;, Cholecystectomy, Hernia, Tonsillectomy. Medications alprazolam 0.25 mg Tab atorvastatin 40 mg (more content not included)... Normal [facility] Comment on above: Result Comment: Elec tronically Signed By: SANDY CESAR PA-C\.br\Date and Time Signed: 09/13/23 10:17 EDT Transfer Inon 09-08-2023 Transfer In [id number] #1.00TIFF Normal [facility] Transfer In [id number] #1.00TIFF Rojelio Ballesteros [facility] Ambulatory Visit Summaryon 0 09-06-2023 Ambulatory Visit Summary JUAN RAMON NEVILLE :1935 Visit Date:09/06/2023 Ambulatory Visit Instructions Your Diagnosis Urinary retention BPH with urinary obstruction Frequent UTI History of Clostridium difficile infection Dementia CKD (chronic kidney disease) stage 3, GFR 30-59 ml/min Other obstructive and reflux uropathy Your Care Team Attending Physician - SANDY CESAR PA-C Primary Care Physician - WALDEMAR ORTA MD This Is Your Medications List Contact prescribing physician if questions or concerns alprazolam (alprazolam 0.25 mg Tab) atorvastatin (atorvastatin 40 mg Tab) ciprofloxacin (ciprofloxacin 500 mg Tab) diltiazem (diltiazem 60 mg Tab) fenofibrate (fenofibrate 145 mg Tab) insulin glargine (Toujeo SoloStar 300 units/mL subcutaneous solution) meclizine (meclizine 25 mg Tab) mirtazapine (mirtazapine 30 mg Tab) trazodone (traZODONE 50 mg Tab) Discharge Vitals Temperature (Temporal Artery) 37.0 ?C Heart Rate (Peripheral) 84 Blood Pressure 124/78 Height 180 cm Height 71 in Weight 92 kg Weight 202.4 lb BMI 28.4 What to do next You Need to Schedule the Following Appointments Follow Up with SANDY CESAR PA-C, URL When: Where: [address] [facility] [place] [address] Medications What When Instructions Unchanged alprazolam (alprazolam 0.25 mg Tab) 30 tab(s), 0 Refill(s) Contact prescribing physician if questions or concerns Unchanged atorvastatin (atorvastatin 40 mg Tab) 30 tab(s), 0 Refill(s) Contact prescribing physician if questions or concerns Unchanged ciprofloxacin (ciprofloxacin 500 mg Tab) 14 tab(s), 0 Refill(s) Contact prescribing physician if questions or concerns Unchanged diltiazem (diltiazem 60 mg Tab) 120 tab(s), 0 Refill(s) Contact prescribing physician if questions or concerns Unchanged fenofibrate (fenofibrate 145 mg Tab) 30 tab(s), 0 Refill(s) Contact prescribing physician if questions or concerns Unchanged insulin glargine (Toujeo SoloStar 300 units/ mL subcutaneous solution) 1 mL, 0 Refill(s) Contact prescribing physician if questions or concerns Unchanged meclizine (meclizine 25 mg Tab) 30 tab(s), 0 Refill(s) Contact prescribing physician if questions or concerns Unchanged mirtazapine (mirtazapine 30 mg Tab) 30 tab(s), 0 Refill(s) Contact prescribing physician if questions or concerns Unchanged trazodone (traZODONE 50 mg Tab) 90 tab(s), 0 Refill(s) Contact prescribing physician if questions or concerns Allergies No Known Medication Allergies Problems Ongoing - Any problem that you are currently receiving treatment for. BPH with urinary obstruction CKD (chronic kidney disease) stage 3, GFR 30-59 ml/min Dementia Frequent UTI History of Clostridium difficile infection Urinary retention Patient Survey You may receive a survey via text or e-mail asking about your office visit. Please share your experience with us by completing your survey. We appreciate your feedback and thank you for choosing us for your care. [facility] Auth for Release of Medical Recordson 09-06-2023 Auth for Release of Medical Records [id number] #1.00TIFF [facility] Insurance Correspondence Off iceon 09-06-2023 Insurance Correspondence Office [id number] #1.00TIFF [facility] Fci Recordson 09-05 [facility] Records [id number] #1.00TIFF [facility] Patient Correspondenceon Patient Correspondence [id number] #1.00TIFF [facility] Patient Educationon 09-06-19 Patient Education Nephrology Chronic Kidney Disease, Adult Chronic kidney disease (CKD) occurs when the kidneys are slowly and permanently damaged over a long period of time. The kidneys are a pair of organs that do many important jobs in the body, including: ? Removing waste and extra fluid from the blood to make urine. ? Making hormones that maintain the amount of fluid in tissues and blood vessels. ? Maintaining the right amount of fluids and chemicals in the body. A small amount of kidney damage may not cause problems, but a large amount of damage may make it hard or impossible for the kidneys to work right. Steps must be taken to slow kidney damage or to stop it from getting worse. If steps are not taken, the kidneys may stop working permanently (end-stage renal disease, or ESRD). Most of the time, CKD does not go away, but it can often be controlled. People who have CKD are usually able to live full lives. What are the causes? The most common causes of this condition are diabetes and high blood pressure (hypertension). Other causes include: ? Cardiovascular diseases. These affect the heart and blood vessels. ? Kidney diseases. These include: ? Glomerulonephritis, or inflammation of the tiny filters in the kidneys. ? Interstitial nephritis. This is swelling of the small tubes of the kidneys and of the surrounding structures. ? Polycystic kidney disease, in which clusters of fluid-filled sacs form within the kidneys. ? Renal vascular disease. This includes disorders that affect the arteries and veins of the kidneys. ? Diseases that affect the body's defense system (immune system). ? A problem with urine flow. This may be caused by: ? Kidney stones. ? Cancer. ? An enlarged prostate, in males. ? A kidney infection or urinary tract infection (UTI) that keeps coming back. ? Vasculitis. This is swelling or inflammation of the blood vessels. What increases the risk? Your chances of having kidney disease increase with age. The following factors may make you more likely to develop this condition: ? A family history of kidney disease or kidney failure. Kidney failure means the kidneys can no longer work right. ? Certain genetic diseases. ? Taking medicines often that are damaging to the kidneys. ? Being around or being in contact with toxic substances. ? Obesity. ? A history of tobacco use. What are the signs or symptoms? Symptoms of this condition include: ? Feeling very tired (lethargic) and having less energy. ? Swelling, or edema, of the face, legs, ankles, or feet. ? Nausea or vomiting, or loss of appetite. ? Confusion or trouble concentrating. ? Muscle twitches and cramps, especially in the legs. ? Dry, itchy skin. ? A metallic taste in the mouth. ? Producing less urine, or producing more urine (especially at night). ? Shortness of breath. ? Trouble sleeping. CKD may also result in not having enough red blood cells or hemoglobin in the blood (anemia) or having weak bones (bone disease). Symptoms develop slowly and may not be obvious until the kidney damage becomes severe. It is possible to have kidney disease for years without having symptoms. How is this diagnosed? This condition may be diagnosed based on: ? Blood tests. ? Urine tests. ? Imaging tests, such as an ultrasound or a CT scan. ? A kidney biopsy. This involves removing a sample of kidney tissue to be looked at under a microscope. Results from these tests will help to determine how serious the CKD is. How is this treated? There is no cure for most cases of this condition, but treatment usually relieves symptoms and prevents or slows the worsening of the disease. Treatment may include: ? Diet changes, which may require you to avoid alcohol and foods that are high in salt, potassium, phosphorous, and protein. ? Medicines. These may: ? Lower blood pressure. ? Control blood sugar (glucose). ? Relieve anemia. ? Relieve swelling. ? Protect your bones. ? Improve the balance of salts and minerals in your blood (electrolytes). ? Dialysis, which is a type of treatment that removes toxic waste from the body. It may be needed if you have kidney failure. ? Managing any other conditions that are causing your CKD or making it worse. Follow these instructions at home: Medicines ? Take jjrn-ops-apzemjp and prescription medicines only as told by your health care provider. The amount of some medicines that you take may need to be changed. ? Do not take any new medicines unless approved by your health care provider. Many medicines can make kidney damage worse. ? Do not take any vitamin and mineral supplements unless approved by your health care provider. Many nutritional supplements can make kidney damage worse. Lifestyle ? Do not use any products that contain nicotine or tobacco, such as cigarettes, e-cigarettes, and chewing tobacco. If you need help quitting, ask your (more content not included)... Normal [facility] Urology Office/Clinic Noteon 09-06-2023 Urology Office/Clinic Note Chief Complaint ENOLOGIST for indwelling Catheter [facility] Staff Reference Librarian with indwelling Catheter- Resides at [facility] Staff C&S- 08/24/23- 100k E-Coli A!C 06/15/23- 9.3 CMP 08/05/23 BUN( 40.0) CREAT( 1.91) Not sure if he has any pain or burning, he is not verbal NO blood in bag is ever seen Staff is with him but she never works with him Review of Systems PHQ Score Initial Depression Screen Score: 0 SCORE unable to obtain - dementia Physical Exam Vitals & Measurements T: 37.0 ?C(Temporal Artery) HR: 84(Peripheral) BP: 124/78 HT: 71 in HT: 180 cm WT: 92 kg WT: 202.4 lb BMI: 28.4 General: nontoxic, NAD Mouth: moist mucosa Lungs: normal respiratory effort Cardio: regular rate, good distal perfusion Abdomen: nondistended, no suprapubic distention or tenderness, no CVA tenderness Skin: No rashes or suspicious lesions Assessment/Plan kidney cyst listed in PMH A1c 9.3 on 06/15/23 HCPOA - Alvin Neville previous urology notes requested - form sent today 1. Urinary retention (R33.9: Retention of urine, unspecified) spoke to [facility] nurse - states pt has had pedroza since arrival at facility a few months ago. denies issues w pedroza leaking or blood in bag. does not think it's ever been ripped out by pt. they have been unable to change it at all as family would not allow them to change in house, stated previous urologist changed in their office. we did attempt to contact DON from [facility] today to confirm this but she is unavailable (vacation) and attempt to speak to her replacement went straight to voicemail. [facility]/to confirm the plan but went straight to voicemail. did leave message w [facility] phone # requesting he call. once we can confirm consent we will need to r/s pt for ov for pedroza change. may be difficult due to encrustation since current pedroza seems to have been in at least a few months. per PCP note - daughter was flushing cath once weekly w 10ml syringes provided by urology office. [facility] staff state they have been flushing it in house. Ordered: E&M of New Patient High 60-74 Min 56872 2. BPH with urinary obstruction (N40.1: Benign prostatic hyperplasia with lower urinary tract symptoms) on finasteride 5mg and flomax 2 caps/day per AUG Ordered: E&M of New Patient High 60-74 Min 03167 3. Frequent UTI (N39.0: Urinary tract infection, site not specified) on Augmentin x7d Apr 2023 (no cx for review) cx 08/24/23 - serratia 100k, e coli 100kon Cipro x7d 08/26-09/02 per ECF staff gets UTIs all the time Ordered: E&M of New Patient High 60-74 Min 95234 4. History of Clostridium difficile infection (Z86.19: Personal history of other infectious and parasitic diseases) October 2022 per former PCP notes. PCP gave 5d oral vanco for c.diff prophylaxis w acute UTI tx in Apr 2023. Ordered: E&M of New Patient High 60-74 Min 38026 5. Dementia (F03.90: Unspecified dementia, unspecified severity, without behavioral disturbance, psychotic disturbance, mood disturbance, and anxiety) per PMH. pt is poor historian, minimal responses. Ordered: E&M of New Patient High 60-74 Min 41932 6. CKD (chronic kidney disease) stage 3, GFR 30-59 ml/min (N18.30: Chronic kidney disease, stage 3 unspecified) CKD stage 3 listed in PMH. CrCl 27 per PCP note 05/17/23. labs 08/05/23 - BUN 40, Fire Management Specialist 1.91, GFR 34 - CrCl 25 (without adjustment for height - unavailable) wt 146# per ECF vitals Ordered: E&M of New Patient High 60-74 Min 17953 Other obstructive and reflux uropathy (N13.8: Other obstructive and reflux uropathy) Total time spent reviewing previous notes/results/parole hearing officer al documents, preparing the chart, conducting the encounter with the patient and family, ordering tests/medications, and documenting the encounter was 60 minutes. Follow-up With When Contact Information ARSENIO GUIDO, SANDY Jain, URL [address] [place] [address] Additional Instructions: schedule cath change once we have consent Patient Education Chronic Kidney Disease, Adult Problem List/Past Medical History Ongoing BPH with urinary obstruction CKD (chronic kidney disease) stage 3, GFR 30-59 ml/min Dementia Frequent UTI History of Clostridium difficile infection Urinary retention Historical No qualifying data Medications alprazolam 0.25 mg Tab atorvastatin 40 mg Tab ciprofloxacin 500 mg Tab diltiazem 60 mg Tab fenofibrate 145 mg Tab meclizine 25 mg Tab mirtazapine 30 mg Tab Toujeo SoloStar 300 units/mL subcutaneous solution traZODONE 50 mg Tab Allergies No Known Medication Allergies Social History Tobacco Former smoker, quit more than 30 days ago Tobacco Use:. Cigarettes, 0.5 per day. 30 year(s). Total pack years: 15., 09/06/2023 Family History Family history is unknown Normal [facility] Comment on above: Result Comment: Elec tronically Signed By: ARSENIO GUIDO, SANDY Jain\.br\Date and Time Signed: 09/06/23 12:18 EDT ALL AMMONIAon 08-01-2023 Ammonia (P) [Moles/Vol] 35 umol/L High 11 - 32 umol/L [facility] Interpretation and review of laboratory results Abnormal [facility] e Basic Metabolic Panelon 10-0 Anion gap [Moles/Vol] 13 mmol/L 9 - 17 mmol/L [place], [place] Bun/Cre Ratio NOT REPORTED [place], [place] Calcium [Mass/Vol] 9.3 mg/dL 8.6 - 10. 4 mg/dL [place] Chloride [Moles/Vol] 99 mmol/L 98 - 10 7 mmol/L [place] CO2 [Moles/Vol] 24 mmol/L 20 - 31 mmol/L [place] Creatinine [Mass/Vol] 2.75 mg/dL High 0.7 - 1.2 mg/dL [place] GFR 27 mL/min Low >60 [place], [place] GFR Non- 22 mL/min Low >60 [place] GFR/1.73 sq M predicted among non-blacks MDRD (S/P/Bld) [Vol rate/Area] NOT REPORTED [place] GFR/1.73 sq M predicted among non-blacks MDRD (S/P/Bld) [Vol rate/Area] [place], [place] Comment on above: Average GFR for 70 o r more years old: 75 mL/min/1.73sq m Chronic Kidney Disease: <60 mL/min/1.73sq m Kidney failure: <15 mL/min/1.73sq m eGFR calculated using average adult body mass. Additional eGFR calculator available at: http://www.[employer]/multiple_crcl_2012.htm Glucose [Mass/Vol] 92 mg/dL 70 - 99 mg/dL [place], [place] Interpretation and review of laboratory results Abnormal [place], [place] Potassium [Moles/Vol] 5.2 mmol/L 3.7 - 5.3 mmol/L [place] Sodium [Moles/Vol] 136 mmol/L 135 - 144 mmol/L [place] Urea nitrogen [Mass/Vol] 61 mg/dL High 8 - 23 mg/dL [place] Basic Metabolic Profon 03-27 (cont.) Normal [facility] Comment on above: Result Comment: Aver age GFR for 70 or more years old: 75 mL/min/1.73sq m Chronic Kidney Disease: <60 mL/min/1.73sq m Kidney failure: <15 mL/min/1.73sq m eGFR calculated using average adult body mass. Additional eGFR calculator available at: http://www.[employer]/multiple_crcl_2012.htm Performed By: #### H H, BMP #### [facility] [address] [place] [address] Loans Consultant: Con Oseguera MD Anion gap [Moles/Vol] 13 mmol/L Normal 9-17 [facility] Comment on above: Performed By: #### H H, BMP #### [facility] [address] [place] [address] Loans Consultant: Con Oseguera MD Calcium [Mass/Vol] 9.3 mg/dL Normal 8.6-10.4 [facility] Comment on above: Performed By: #### H H, BMP #### [facility] [address] [place] [address] Loans Consultant: Con Oseguera MD Chloride [Moles/Vol] 99 mmol/L Normal 98-107 [facility] Comment on above: Performed By: #### H H, BMP #### [facility] [address] [place] [address] Loans Consultant: Con Oseguera MD CO2 [Moles/Vol] 24 mmol/L Normal 20-31 [facility] Comment on above: Performed By: #### H H, BMP #### [facility] [place] [address] Loans Consultant: Con Oseguera MD Creatinine [Mass/Vol] 2.75 mg/dL High 0.70-1.20 [facility] Comment on above: Performed By: #### H H, BMP #### [facility] [address] [place] [address] Loans Consultant: Con Oseguera MD GFR, Amer 27 mL/min Low >60 [facility] Comment on above: Performed By: #### H H, BMP #### [facility] [place] [address] Loans Consultant: Con Oseguera MD GFR,non Amer 22 mL/min Low >60 [facility] Comment on above: Performed By: #### H H, BMP #### [facility] [address] [place] [address] Loans Consultant: Con Oseguera MD Glucose [Mass/Vol] 92 mg/dL Normal 70-99 [facility] Comment on above: Performed By: #### H H, BMP #### [facility] [place] [address] Loans Consultant: Con Oseguera MD Potassium [Moles/Vol] 5.2 mmol/L Normal 3.7-5.3 [facility] Comment on above: Performed By: #### H H, BMP #### [facility] [address] [place] [address] Loans Consultant: Con Oseguera MD Sodium [Moles/Vol] 136 mmol/L Normal 135-144 [facility] Comment on above: Performed By: #### H H, BMP #### [facility] [address] [place] [address] Loans Consultant: Con Oseguera MD Urea nitrogen [Mass/Vol] 61 mg/dL High 8-23 [facility] Comment on above: Performed By: #### H H, BMP #### [facility] [address] [place] [address] Loans Consultant: Con Oseguera MD BUN/CRE Ratio NOT REPORTED Normal 9-20 [facility] Comment on above: Performed By: #### H H, BMP #### [facility] [address], [place] [address] Loans Consultant: Con Oseguera MD Staging: NOT REPORTED Normal [facility] Comment on above: Performed By: #### H H, BMP #### [facility] [address], [place] [address] Loans Consultant: Con Oseguera MD CBC Auto Differentialon 10-0 Basophils (Bld) [#/Vol] 0.08 10*3/uL [facility] Basophils/100 WBC (Bld) 1 % 0 - 2 % [facility] Differential Type NOT REPORTED [place], [place] Eosinophils (Bld) [#/Vol] 0.39 10*3/uL [facility] Eosinophils/100 WBC (Bld) 5 % High 0 - 4 % [place] Erythrocyte distribution width (RBC) [Ratio] 28.8 % High 11.5 - 14.9 % [place] Hematocrit (Bld) [Volume fraction] 33.5 % Low 41 - 53 % [place] Hemoglobin (Bld) [Mass/Vol] 10.5 g/dL Low 13.5 - 17.5 g/dL [place] Interpretation and review of laboratory results Abnormal [place] Lymphocytes (Bld) [#/Vol] 2.00 10*3/uL [place] Lymphocytes/100 WBC (Bld) 26 % 24 - 44 % [place] MCH (RBC) [Entitic mass] 23.6 pg Low 26 - 34 pg [place] MCHC (RBC) [Mass/Vol] 31.3 g/dL 31 - 37 g/dL M [place] MCV (RBC) [Entitic vol] 75.4 fL Low 80 - 100 fL [place] Monocytes (Bld) [#/Vol] 0.69 10*3/uL [place] Monocytes/100 WBC (Bld) 9 % High 1 - 7 % [place] Morphology Theo (Bld) [Interp] 1+ ELLIPTOCYTES [place] Morphology Theo (Bld) [Interp] 1+ ECHINOCYTES [place] Morphology Theo (Bld) [Interp] ANISOCYTOSIS PRESENT [place] Platelet mean volume (Bld) [Entitic vol] 8.9 fL 6 - 12 fL [place] Platelets (Bld) [#/Vol] NOT REPORTED [place] Platelets (Bld) [#/Vol] 305 10*3/uL [place] RBC (Bld) [#/Vol] 4.44 10*6/uL Low 4.5 - 5.9 m/uL [place] RBC morphology finding Nom (Bld) NOT REPORTED [place] Segmented neutrophils/100 WBC (Bld) 59 % 36 - 66 % [place] Segs Absolute 4.54 [place] WBC (Bld) [#/Vol] NOT REPORTED per 100 WBC [place] WBC (Bld) [#/Vol] 7.7 10*3/uL [place] WBC Morphology NOT REPORTED [place], [place] CBC with Diffon 03-27-2019 Abs. Basophil 0.08 k/uL Normal 0.0-0.2 [facility] Comment on above: Performed By: #### H H, BMP #### [facility] [address] [facility] [place] [address] Loans Consultant: Con Oseguera MD Abs.Neutrophil (Seg) 4.54 k/uL Normal 1.3-9.1 [facility] Comment on above: Performed By: #### H H, BMP #### [facility] [address] [facility] [place] [address] Loans Consultant: Con Oseguera MD Basophils/100 WBC (Bld) 1 % Normal 0-2 [facility] Comment on above: Performed By: #### H H, BMP #### [facility] [place] [address] Loans Consultant: Con Oseguera MD Eosinophils (Bld) [#/Vol] 0.39 10*3/uL Normal 0.0-0.4 [facility] Comment on above: Performed By: #### H H, BMP #### [facility] [place] [address] Loans Consultant: Con Oseguera MD Eosinophils/100 WBC (Bld) 5 % High 0-4 [facility] Comment on above: Performed By: #### H H, BMP #### [facility] [place] [address] Loans Consultant: Con Oseguera MD Lymphocytes (Bld) [#/Vol] 2.00 10*3/uL Normal 1.0-4.8 [facility] Comment on above: Performed By: #### H H, BMP #### [facility] [address] [place] [address] Loans Consultant: Con Oseguera MD Lymphocytes/100 WBC (Bld) 26 % Normal 24-44 [facility] Comment on above: Performed By: #### H H, BMP #### [facility] [address] [place] [address] Loans Consultant: Con Oseguera MD Monocytes (Bld) [#/Vol] 0.69 10*3/uL Normal 0.1-1.3 [facility] Comment on above: Performed By: #### H H, BMP #### [facility] [address] [place] [address] Loans Consultant: Con Oseguera MD Monocytes/100 WBC (Bld) 9 % High 1-7 [facility] Comment on above: Performed By: #### H H, BMP #### [facility] [address] [place] [address] Loans Consultant: Con Oseguera MD Morphology Theo (Bld) [Interp] ANISOCYTOSIS PRESENT Normal [facility] Comment on above: Result Comment: 1+ ELLIPTOCYTES 1+ ECHINOCYTES Performed By: #### H H, BMP #### [facility] [place] [address] Loans Consultant: Con Oseguera MD Neutrophil (Seg) 59 % Normal 36-66 [facility] Comment on above: Performed By: #### H H, BMP #### [facility] [place] [address] Loans Consultant: Con Oseguera MD Erythrocyte distribution width (RBC) [Ratio] 28.8 % High 11.5-14.9 [facility] Comment on above: Performed By: #### H H, BMP #### [facility] [address] [facility] [place] [address] Loans Consultant: Con Oseguera MD Hematocrit (Bld) [Volume fraction] 33.5 % Low 41-53 [facility] Comment on above: Performed By: #### H H, BMP #### [facility] [place] [address] Loans Consultant: Con Oseguera MD Hemoglobin (Bld) [Mass/Vol] 10.5 g/dL Low 13.5-17.5 [facility] Comment on above: Performed By: #### H H, BMP #### [facility] [address] [place] [address]. [place] [address] Loans Consultant: Con Oseguera MD MCH (RBC) [Entitic mass] 23.6 pg Low 26-34 [facility] Comment on above: Performed By: #### H H, BMP #### [facility] [place] [address] Loans Consultant: Con Oseguera MD MCHC (RBC) [Mass/Vol] 31.3 g/dL Normal 31-37 [facility] Comment on above: Performed By: #### H H, BMP #### [facility] [address] [place] [address]. [place] [address] Loans Consultant: Con Oseguera MD MCV (RBC) [Entitic vol] 75.4 fL Low 80-100 [facility] Comment on above: Performed By: #### H H, BMP #### [facility] [place] [address] Loans Consultant: Con Oseguera MD Platelet mean volume (Bld) [Entitic vol] 8.9 fL Normal 6.0-12.0 [facility] Comment on above: Performed By: #### H H, BMP #### [facility] [address] [place], [place] [address] [place] [address] Loans Consultant: Con Oseguera MD Platelets (Bld) [#/Vol] 305 10*3/uL Normal 150-450 [facility] Comment on above: Performed By: #### H H, BMP #### [facility] [address] [place] [address] Loans Consultant: Con Oseguera MD RBC (Bld) [#/Vol] 4.44 10*6/uL Low 4.5-5.9 [facility] Comment on above: Performed By: #### H H, BMP #### [facility] [place] [address] Loans Consultant: Con Oseguera MD WBC (Bld) [#/Vol] 7.7 10*3/uL Normal 3.5-11.0 [facility] Comment on above: Performed By: #### H H, BMP #### [facility] [place] [address] Loans Consultant: Con Oseguera MD Abs.Imm.Granulocyte NOT REPORTED Normal 0.00-0.30 [facility] Comment on above: Performed By: #### H H, BMP #### [facility] [place] [address] Loans Consultant: Con Oseguera MD Auto Diff Performed NOT REPORTED Normal [facility] Comment on above: Performed By: #### H H, BMP #### [facility] [place] [address] Loans Consultant: Con Oseguera MD Immature granulocytes (Bld) [#/Vol] NOT REPORTED Normal 0 [facility] Comment on above: Performed By: #### H H, BMP #### [facility] [place] [address] Loans Consultant: Con Oseguera MD NRBC Automated NOT REPORTED Normal [facility] Comment on above: Performed By: #### H H, BMP #### [facility] [address] [facility] [place] [address] Loans Consultant: Con Oseguera MD Platelets (Bld) [#/Vol] NOT REPORTED Normal [facility] Comment on above: Performed By: #### H H, BMP #### [facility] [address] [facility] [place] [address] Loans Consultant: Con Oseguera MD RBC morphology finding Nom (Bld) NOT REPORTED Normal [facility] Comment on above: Performed By: #### H H, BMP #### [facility] [address] [facility] [place] [address] Loans Consultant: Con Oseguera MD WBC Morphology NOT REPORTED Normal [facility] Comment on above: Performed By: #### H H, BMP #### [facility] [address] [facility] [place] [address] Loans Consultant: Con Oseguera MD Otheron 03-27-2019 Immature granulocytes [...] Other Observations UA NOT REPORTED NOT REQ. [facility] [place] RBC (U) [#/Vol] 20 TO 50 /HPF [facility] [place] Renal Epithelial, Urine NOT REPORTED 0 /HPF [facility] [place] Trichomonas, UA NOT REPORTED None [facility] [place] WBC, UA 0 TO 2 /HPF [facility] [place] Yeast, UA NOT REPORTED None [facility] [place] - [facility] Otheron 03-16-2019 Casts UA /LPF [facility], [place] UA w/Reflex Cultureon 2018 Acetoacetic Acid,Ur Negative Normal NEG [facility] Comment on above: Performed By: #### H H, BMP #### [facility] [address] [facility] [place] [address] Loans Consultant: Con Oseguera MD Bilirubin, SemiQt,Ur Negative Normal NEG [facility] Comment on above: Performed By: #### H H, BMP #### [facility] [address] [facility] [place] [address] Loans Consultant: Con Oseguera MD Color (U) YELLOW Normal YEL [facility] Comment on above: Performed By: #### H H, BMP #### [facility] [address] [place] [address] Loans Consultant: Con Oseguera MD Glucose Ql (U) Negative Normal NEG [facility] Comment on above: Performed By: #### H H, BMP #### [facility] [address] [facility] [place] [address] Loans Consultant: Con Oseguera MD Hemoglobin, Ur SMALL Abnormal NEG [facility] Comment on above: Performed By: #### H H, BMP #### [facility] [address] [facility] [place] [address] Loans Consultant: Con Oseguera MD Leukocyte esterase Test strip Ql (U) Negative Normal NEG [facility] Comment on above: Performed By: #### H H, BMP #### [facility] [address] [place] [address] Loans Consultant: Con Oseguera MD Nitrite,Ur Negative Normal NEG [facility] Comment on above: Performed By: #### H H, BMP #### [facility] [address] [place] [address] Loans Consultant: Con Oseguera MD pH (U) 6.5 [pH] Normal 5.0-8.0 [facility] Comment on above: Performed By: #### H H, BMP #### [facility] [address] [facility] [place] [address] Loans Consultant: Con Oseguera MD Protein Ql (U) Negative Normal NEG [facility] Comment on above: Performed By: #### H H, BMP #### [facility] [place] [address] Loans Consultant: Con Oseguera MD Specific gravity (U) [Rel density] 1.008 Normal 1.000-1.030 [facility] Comment on above: Performed By: #### H H, BMP #### [facility] [place] [address] Loans Consultant: Con Oseguera MD Turbidity CLEAR Normal CLEAR [facility] Comment on above: Performed By: #### H H, BMP #### [facility] [address] [facility] [place] [address] Loans Consultant: Con Oseguera MD Urobilinogen,Ur Normal Normal NORM [facility] Comment on above: Performed By: #### H H, BMP #### [facility] [place] [address] Loans Consultant: Con Oseguera MD Comment NOT REPORTED Normal [facility] Comment on above: Performed By: #### H H, BMP #### [facility] [place] [address] Loans Consultant: Con Oseguera MD Urinalysis Reflex to Culture on 03-16-2019 Bilirubin Urine Negative NEGATIVE [facility] Color, UA YELLOW YELLOW [facility], [place] Glucose, Ur Negative NEGATIVE [facility], [place] Interpretation and review of laboratory results Abnormal [facility], [place] Ketones Ql (U) Negative NEGATIVE [facility] [place], [place] Leukocyte esterase Test strip Ql (U) Negative NEGATIVE [facility], [place] Nitrite, Urine Negative NEGATIVE [facility], [place] pH, UA 6.5 [facility], [place] Protein (U) [Mass/Vol] Negative NEGATIVE [facility], [place] Specific [place], UA 1.008 [facility], [place] Turbidity UA CLEAR CLEAR [facility], [place] Urinalysis Comments NOT REPORTED [facility], [place] Urine Hgb SMALL Abnormal NEGATIVE [facility], [place] Urobilinogen, Urine Normal Normal [place], [place] Urinalysis,Microon 9 ----- Normal [facility] Comment on above: Performed By: #### H H, BMP #### [facility] [address] [place] [address] Loans Consultant: Con Oseguera MD Epithelial cells LM.HPF (Urine sed) [#/Area] 0 TO 2 Normal [facility] Comment on above: Performed By: #### H H, BMP #### [facility] [address] [place] [address] Loans Consultant: Con Oseguera MD RBC (U) [#/Vol] 20 TO 50 Normal [facility] Comment on above: Performed By: #### H H, BMP #### [facility] [address] [place] [address] Loans Consultant: Con sOeguera MD WBC (U) [#/Vol] 0 TO 2 Normal [facility] Comment on above: Performed By: #### H H, BMP #### [facility] [address] [place] [address] Loans Consultant: Con Oseguera MD Amorphous sediment LM Ql (Urine sed) NOT REPORTED Normal NONE [facility] Comment on above: Performed By: #### H H, BMP #### [facility] [address] [place] [address] Loans Consultant: Con Oseguera MD Bacteria LM.HPF (Urine sed) [#/Area] NOT REPORTED Normal NONE [facility] Comment on above: Performed By: #### H H, BMP #### [facility] [address] [place] [address] Loans Consultant: Con Oseguera MD Casts LM.LPF (Urine sed) [#/Area] NOT REPORTED Normal [facility] Comment on above: Performed By: #### H H, BMP #### [facility] [address] [place] [address] Loans Consultant: Con Oseguera MD Crystals LM Nom (Urine sed) NOT REPORTED Normal NONE [facility] Comment on above: Performed By: #### H H, BMP #### [facility] [address] [place] [address] Loans Consultant: Con Oseguera MD Epithelial, Renal NOT REPORTED Normal 0 [facility] Comment on above: Performed By: #### H H, BMP #### [facility] [address] [place] [address] Loans Consultant: Con Oseguera MD Mucus Strands NOT REPORTED Normal NONE [facility] Comment on above: Performed By: #### H H, BMP #### [facility] [address] [place] [address] Loans Consultant: Con Oseguera MD Other Observations NOT REPORTED Normal NREQ [facility] Comment on above: Performed By: #### H H, BMP #### [facility] [address] [place] [address] Loans Consultant: Con Oseguera MD Trichomonas NOT REPORTED Normal NONE [facility] Comment on above: Performed By: #### H H, BMP #### [facility] [place] [address] Loans Consultant: Con Oseguera MD Yeast LM Ql (Urine sed) NOT REPORTED Normal NONE [facility] Comment on above: Performed By: #### H H, BMP #### [facility] [address] [place] [address] Loans Consultant: Con Oseguera MD Basic Metab w/rfx MGon 03-13 (cont.) Normal [facility] Comment on above: Result Comment: Aver age GFR for 70 or more years old: 75 mL/min/1.73sq m Chronic Kidney Disease: <60 mL/min/1.73sq m Kidney failure: <15 mL/min/1.73sq m eGFR calculated using average adult body mass. Additional eGFR calculator available at: http://www.StyleShare/multiple_crcl_2012.htm Performed By: #### H H, BMP #### [facility] [address] [place] [address] Loans Consultant: Con Oseguera MD Anion gap [Moles/Vol] 12 mmol/L Normal 9-17 [facility] Comment on above: Performed By: #### H H, BMP #### [facility] [address] [place] [address] Loans Consultant: Con Oseguera MD Calcium [Mass/Vol] 9.2 mg/dL Normal 8.6-10.4 [facility] Comment on above: Performed By: #### H H, BMP #### [facility] [address] [place] [address] Loans Consultant: Con Oseguera MD Chloride [Moles/Vol] 105 mmol/L Normal 98-107 [facility] Comment on above: Performed By: #### H H, BMP #### [facility] [address] [place] [address] Loans Consultant: Con Oseguera MD CO2 [Moles/Vol] 26 mmol/L Normal 20-31 [facility] Comment on above: Performed By: #### H H, BMP #### [facility] [address] [place] [address] Loans Consultant: Con Oseguera MD Creatinine [Mass/Vol] 1.41 mg/dL High 0.70-1.20 [facility] Comment on above: Performed By: #### H H, BMP #### [facility] [place] [address] Loans Consultant: Con Oseguera MD GFR, Amer 58 mL/min Low >60 [facility] Comment on above: Performed By: #### H H, BMP #### [facility] [place] [address] Loans Consultant: Con Oseguera MD GFR,non Amer 48 mL/min Low >60 [facility] Comment on above: Performed By: #### H H, BMP #### [facility] [place] [address] Loans Consultant: Con Oseguera MD Glucose [Mass/Vol] 90 mg/dL Normal 70-99 [facility] Comment on above: Performed By: #### H H, BMP #### [facility] [place] [address] Loans Consultant: Con Oseguera MD Potassium [Moles/Vol] 4.1 mmol/L Normal 3.7-5.3 [facility] Comment on above: Performed By: #### H H, BMP #### [facility] [place] [address] Loans Consultant: Con Oseguera MD Sodium [Moles/Vol] 143 mmol/L Normal 135-144 [facility] Comment on above: Performed By: #### H H, BMP #### [facility] [address] [place] [address] Loans Consultant: Con Oseguera MD Urea nitrogen [Mass/Vol] 19 mg/dL Normal 8- [facility] Comment on above: Performed By: #### H H, BMP #### [facility] [address] [place] [address] Loans Consultant: Con Oseguera MD BUN/CRE Ratio NOT REPORTED Normal - [facility] Comment on above: Performed By: #### H H, BMP #### [facility] [address] [place] [address] Loans Consultant: oCn Oseguera MD Staging: NOT REPORTED Normal [facility] Comment on above: Performed By: #### H H, BMP #### [facility] [address] [place] [address] Loans Consultant: Con Oseguera MD Basic Metabolic Panel w/ Ref milagros to MGon 03-13-2019 Anion gap [Moles/Vol] 12 mmol/L 9 - 17 mmol/L [place], [place] Bun/Cre Ratio NOT REPORTED [facility], [place] Calcium [Mass/Vol] 9.2 mg/dL 8.6 - 10. 4 mg/dL [place] Chloride [Moles/Vol] 105 mmol/L 98 - 10 7 mmol/L [place] CO2 [Moles/Vol] 26 mmol/L 20 - 31 mmol/L [place] Creatinine [Mass/Vol] 1.41 mg/dL High 0.7 - 1.2 mg/dL [place] GFR 58 mL/min Low >60 [place], [place] GFR Non- 48 mL/min Low >60 [place] GFR/1.73 sq M predicted among non-blacks MDRD (S/P/Bld) [Vol rate/Area] [place] Comment on above: Average GFR for 70 o r more years old: 75 mL/min/1.73sq m Chronic Kidney Disease: <60 mL/min/1.73sq m Kidney failure: <15 mL/min/1.73sq m eGFR calculated using average adult body mass. Additional eGFR calculator available at: http://www.StyleShare/multiple_crcl_2011.htm GFR/1.73 sq M predicted among non-blacks MDRD (S/P/Bld) [Vol rate/Area] NOT REPORTED [place], [place] Glucose [Mass/Vol] 90 mg/dL 70 - 99 mg/dL [place], [place] Interpretation and review of laboratory results Abnormal [place] Potassium [Moles/Vol] 4.1 mmol/L 3.7 - 5.3 mmol/L [place] Sodium [Moles/Vol] 143 mmol/L 135 - 144 mmol/L [place] Urea nitrogen [Mass/Vol] 19 mg/dL 8 - 23 mg/dL [place], [place] POC Glucose Fingerstickon Glucose [Mass/Vol] 195 mg/dL High 75 - 110 mg/dL [place] Interpretation and review of laboratory results Abnormal [place], [place] Glucose [Mass/Vol] 79 mg/dL 75 - 110 mg/dL [place] Basic Metab w/rfx MGon 03-12 (cont.) Normal [facility] Comment on above: Result Comment: Aver age GFR for 70 or more years old: 75 mL/min/1.73sq m Chronic Kidney Disease: <60 mL/min/1.73sq m Kidney failure: <15 mL/min/1.73sq m eGFR calculated using average adult body mass. Additional eGFR calculator available at: http://www.StyleShare/multiple_crcl_2011.htm Performed By: #### H H, BMP #### [facility] [address] [place] [address] Loans Consultant: Con Oseguera MD Anion gap [Moles/Vol] 11 mmol/L Normal 9-17 [facility] Comment on above: Performed By: #### H H, BMP #### [facility] [address] [place] [address] Loans Consultant: Con Oseguera MD Calcium [Mass/Vol] 9.2 mg/dL Normal 8.6-10.4 [facility] Comment on above: Performed By: #### H H, BMP #### [facility] [address] [place] [address] Loans Consultant: Con Oseguera MD Chloride [Moles/Vol] 108 mmol/L High 98-107 [facility] Comment on above: Performed By: #### H H, BMP #### [facility] [address] [place] [address] Loans Consultant: Con Oseguera MD CO2 [Moles/Vol] 26 mmol/L Normal 20-31 [facility] Comment on above: Performed By: #### H H, BMP #### [facility] [address] [place] [address] Loans Consultant: Con Oseguera MD Creatinine [Mass/Vol] 1.41 mg/dL High 0.70-1.20 [facility] Comment on above: Performed By: #### H H, BMP #### [facility] [address] [place] [address] Loans Consultant: Con Oseguera MD GFR, Amer 58 mL/min Low >60 [facility] Comment on above: Performed By: #### H H, BMP #### [facility] [address] [place] [address] Loans Consultant: Con Oseguera MD GFR,non Amer 48 mL/min Low >60 [facility] Comment on above: Performed By: #### H H, BMP #### [facility] [address] [place] [address] Loans Consultant: Con Oseguera MD Glucose [Mass/Vol] 81 mg/dL Normal 70-99 [facility] Comment on above: Performed By: #### H H, BMP #### [facility] [address] [place] [address] Loans Consultant: Con Oseguera MD Potassium [Moles/Vol] 4.1 mmol/L Normal 3.7-5.3 [facility] Comment on above: Performed By: #### H H, BMP #### [facility] [place] [address] Loans Consultant: Con Oseguera MD Sodium [Moles/Vol] 145 mmol/L High 135-144 [facility] Comment on above: Performed By: #### H H, BMP #### [facility] [address] [place] [address] Loans Consultant: Con Oseguera MD Urea nitrogen [Mass/Vol] 20 mg/dL Normal 8-23 [facility] Comment on above: Performed By: #### H H, BMP #### [facility] [place] [address] Loans Consultant: Con Oseguera MD BUN/CRE Ratio NOT REPORTED Normal 9-20 [facility] Comment on above: Performed By: #### H H, BMP #### [facility] [address] [place] [address] Loans Consultant: Con Oseguera MD Staging: NOT REPORTED Normal [facility] Comment on above: Performed By: #### H H, BMP #### [facility] [address] [place] [address] Loans Consultant: Con Oseguera MD Basic Metabolic Panel w/ Ref milagros to MGon 03-12-2019 Anion gap [Moles/Vol] 11 mmol/L 9 - 17 mmol/L [place], [place] Bun/Cre Ratio NOT REPORTED [place] Calcium [Mass/Vol] 9.2 mg/dL 8.6 - 10. 4 mg/dL [place] Chloride [Moles/Vol] 108 mmol/L High 98 - 10 7 mmol/L [place] CO2 [Moles/Vol] 26 mmol/L 20 - 31 mmol/L [place] Creatinine [Mass/Vol] 1.41 mg/dL High 0.7 - 1.2 mg/dL [place] GFR 58 mL/min Low >60 [place] GFR Non- 48 mL/min Low >60 [place] GFR/1.73 sq M predicted among non-blacks MDRD (S/P/Bld) [Vol rate/Area] NOT REPORTED [place] GFR/1.73 sq M predicted among non-blacks MDRD (S/P/Bld) [Vol rate/Area] [place] Comment on above: Average GFR for 70 o r more years old: 75 mL/min/1.73sq m Chronic Kidney Disease: <60 mL/min/1.73sq m Kidney failure: <15 mL/min/1.73sq m eGFR calculated using average adult body mass. Additional eGFR calculator available at: http://www.CloudPay.net.Re5ult/multiple_crcl_2012.htm Glucose [Mass/Vol] 81 mg/dL 70 - 99 mg/dL [place], [place] Interpretation and review of laboratory results Abnormal [place] Potassium [Moles/Vol] 4.1 mmol/L 3.7 - 5.3 mmol/L [place] Sodium [Moles/Vol] 145 mmol/L High 135 - 144 mmol/L [place] Urea nitrogen [Mass/Vol] 20 mg/dL 8 - 23 mg/dL [place] POC Glucose Fingerstickon Glucose [Mass/Vol] 285 mg/dL High 75 - 110 mg/dL [place] Interpretation and review of laboratory results Abnormal [place] Glucose [Mass/Vol] 286 mg/dL High 75 - 110 mg/dL [place] Interpretation and review of laboratory results Abnormal [place] Glucose [Mass/Vol] 264 mg/dL High 75 - 110 mg/dL [place] Interpretation and review of laboratory results Abnormal [place] Glucose [Mass/Vol] 72 mg/dL Low 75 - 110 mg/dL [place] Interpretation and review of laboratory results Abnormal [place] Basic Metab w/rfx MGon 03-11 (cont.) Normal [facility] Comment on above: Result Comment: Aver age GFR for 70 or more years old: 75 mL/min/1.73sq m Chronic Kidney Disease: <60 mL/min/1.73sq m Kidney failure: <15 mL/min/1.73sq m eGFR calculated using average adult body mass. Additional eGFR calculator available at: http://www.CloudPay.net.Re5ult/multiple_crcl_2012.htm Performed By: #### H H, BMP #### [facility] [address] [facility] [address] [place], [place] [id number] Loans Consultant: Con Oseguera MD Anion gap [Moles/Vol] 10 mmol/L Normal 9-17 [facility] Comment on above: Performed By: #### H H, BMP #### [facility] [address] [facility] [address] [place], [place] [id number] Loans Consultant: Con Oseguera MD Calcium [Mass/Vol] 9.3 mg/dL Normal 8.6-10.4 [facility] Comment on above: Performed By: #### H H, BMP #### [facility] [address] [facility] [place] [address] Loans Consultant: Con Oseguera MD Chloride [Moles/Vol] 104 mmol/L Normal 98-107 [facility] Comment on above: Performed By: #### H H, BMP #### [facility] [address] [place] [address] Loans Consultant: Con Oseguera MD CO2 [Moles/Vol] 26 mmol/L Normal 20-31 [facility] Comment on above: Performed By: #### H H, BMP #### [facility] [place] [address] Loans Consultant: Con Oseguera MD Creatinine [Mass/Vol] 1.49 mg/dL High 0.70-1.20 [facility] Comment on above: Performed By: #### H H, BMP #### [facility] [address] [place] [address]. [place] [address] Loans Consultant: Con Oseguera MD GFR, Amer 55 mL/min Low >60 [facility] Comment on above: Performed By: #### H H, BMP #### [facility] [place] [address] Loans Consultant: Con Oseguera MD GFR,non Amer 45 mL/min Low >60 [facility] Comment on above: Performed By: #### H H, BMP #### [facility] [place] [address] Loans Consultant: Con Oseguera MD Glucose [Mass/Vol] 78 mg/dL Normal 70-99 [facility] Comment on above: Performed By: #### H H, BMP #### [facility] [place] [address] Loans Consultant: Con Oseguera MD Potassium [Moles/Vol] 4.0 mmol/L Normal 3.7-5.3 [facility] Comment on above: Performed By: #### H H, BMP #### [facility] [address] [facility] [place] [address] Loans Consultant: Con Oseguera MD Sodium [Moles/Vol] 140 mmol/L Normal 135-144 [facility] Comment on above: Performed By: #### H H, BMP #### [facility] [address] [facility] [place] [address] Loans Consultant: Con Oseguera MD Urea nitrogen [Mass/Vol] 22 mg/dL Normal 8-23 [facility] Comment on above: Performed By: #### H H, BMP #### [facility] [address] [facility] [place] [address] Loans Consultant: Con Oseguera MD BUN/CRE Ratio NOT REPORTED Normal 9-20 [facility] Comment on above: Performed By: #### H H, BMP #### [facility] [address] [facility] [place] [address] Loans Consultant: Con Oseguera MD Staging: NOT REPORTED Normal [facility] Comment on above: Performed By: #### H H, BMP #### [facility] [address] [facility] [place] [address] Loans Consultant: Con Oseguera MD Basic Metabolic Panel w/ Ref milagros to MGon 03-11-2019 Anion gap [Moles/Vol] 10 mmol/L 9 - 17 mmol/L [facility] Bun/Cre Ratio NOT REPORTED [facility], [place] Calcium [Mass/Vol] 9.3 mg/dL 8.6 - 10. 4 mg/dL [facility] Chloride [Moles/Vol] 104 mmol/L 98 - 10 7 mmol/L [facility] CO2 [Moles/Vol] 26 mmol/L 20 - 31 mmol/L [facility] Creatinine [Mass/Vol] 1.49 mg/dL High 0.7 - 1.2 mg/dL [place] GFR 55 mL/min Low >60 [place] GFR Non- 45 mL/min Low >60 [place] GFR/1.73 sq M predicted among non-blacks MDRD (S/P/Bld) [Vol rate/Area] [place] Comment on above: Average GFR for 70 o r more years old: 75 mL/min/1.73sq m Chronic Kidney Disease: <60 mL/min/1.73sq m Kidney failure: <15 mL/min/1.73sq m eGFR calculated using average adult body mass. Additional eGFR calculator available at: http://www.StyleShare/multiple_crcl_2011.htm GFR/1.73 sq M predicted among non-blacks MDRD (S/P/Bld) [Vol rate/Area] NOT REPORTED [place] Glucose [Mass/Vol] 78 mg/dL 70 - 99 mg/dL [place] Interpretation and review of laboratory results Abnormal [place] Potassium [Moles/Vol] 4.0 mmol/L 3.7 - 5.3 mmol/L [place] Sodium [Moles/Vol] 140 mmol/L 135 - 144 mmol/L [place] Urea nitrogen [Mass/Vol] 22 mg/dL 8 - 23 mg/dL [place] POC Glucose Fingerstickon Glucose [Mass/Vol] 213 mg/dL High 75 - 110 mg/dL [place] Interpretation and review of laboratory results Abnormal [place] Glucose [Mass/Vol] 139 mg/dL High 75 - 110 mg/dL [place] Interpretation and review of laboratory results Abnormal [place] Glucose [Mass/Vol] 195 mg/dL High 75 - 110 mg/dL [place] Interpretation and review of laboratory results Abnormal [place] Glucose [Mass/Vol] 73 mg/dL Low 75 - 110 mg/dL [place] Interpretation and review of laboratory results Abnormal [place] XR CHEST (2 VW)on 03-11-2019 XR [...] Maxwell Chaudhry MD 03/11/19 Final result Normal [facility] XR CHEST STANDARD (2 VW)on 0 03-11-2019 EXAMINATION: TWO XRAY VIEWS OF THE CHEST [...] stable. No acute osseous abnormality is seen. [facility] [place] 1. Stable bibasilar pulmonary opacities that may reflect atelectasis or pneumonia. 2. Stable small left pleural effusion. [place], [place], [facility] Incoming Radiant Results From [employer] - 03/11/2019 2:19 PM EDT EXAMINATION: TWO [...] pneumonia. 2. Stable small left pleural effusion. [place] Basic Metab w/rfx MGon 03-10 (cont.) Normal [facility] Comment on above: Result Comment: Aver age GFR for 70 or more years old: 75 mL/min/1.73sq m Chronic Kidney Disease: <60 mL/min/1.73sq m Kidney failure: <15 mL/min/1.73sq m eGFR calculated using average adult body mass. Additional eGFR calculator available at: http://www.CloudPay.net.Re5ult/multiple_crcl_2011.htm Performed By: #### B MP #### [facility] [address] [place] [address] Loans Consultant: Con Oseguera MD Anion gap [Moles/Vol] 12 mmol/L Normal 9-17 [facility] Comment on above: Performed By: #### B MP #### [facility] [place] [address] Loans Consultant: Con Oseguera MD Calcium [Mass/Vol] 9.3 mg/dL Normal 8.6-10.4 [facility] Comment on above: Performed By: #### B MP #### [facility] [place] [address] Loans Consultant: Con Oseguera MD Chloride [Moles/Vol] 102 mmol/L Normal 98-107 [facility] Comment on above: Performed By: #### B MP #### [facility] [address] [facility] [place] [address] Loans Consultant: Con Oseguera MD CO2 [Moles/Vol] 27 mmol/L Normal 20-31 [facility] Comment on above: Performed By: #### B MP #### [facility] [place] [address] Loans Consultant: Con Oseguera MD Creatinine [Mass/Vol] 1.69 mg/dL High 0.70-1.20 [facility] Comment on above: Performed By: #### B MP #### [facility] [address] [place] [address] Loans Consultant: Con Oseguera MD GFR, Amer 47 mL/min Low >60 [facility] Comment on above: Performed By: #### B MP #### [facility] [address] [place] [address] Loans Consultant: Con Oseguera MD GFR,non Amer 39 mL/min Low >60 [facility] Comment on above: Performed By: #### B MP #### [facility] [address] [place] [address] Loans Consultant: Con Oseguera MD Glucose [Mass/Vol] 87 mg/dL Normal 70-99 [facility] Comment on above: Performed By: #### B MP #### [facility] [address] [place] [address] Loans Consultant: Con Oseguera MD Potassium [Moles/Vol] 4.2 mmol/L Normal 3.7-5.3 [facility] Comment on above: Performed By: #### B MP #### [facility] [address] [place] [address] Loans Consultant: Con Oseguera MD Sodium [Moles/Vol] 141 mmol/L Normal 135-144 [facility] Comment on above: Performed By: #### B MP #### [facility] [address] [place] [address] Loans Consultant: Con Oseguera MD Urea nitrogen [Mass/Vol] 24 mg/dL High 8-23 [facility] Comment on above: Performed By: #### B MP #### [facility] [address] [place] [address] Loans Consultant: Con Oseguera MD BUN/CRE Ratio NOT REPORTED Normal 9-20 [facility] Comment on above: Performed By: #### B MP #### [facility] [address] [place] [address] Loans Consultant: Con Oseguera MD Staging: NOT REPORTED Normal [facility] Comment on above: Performed By: #### B MP #### [facility] [address] [place] [address] Loans Consultant: Con Oseguera MD Basic Metabolic Panel w/ Ref milagros to MGon 03-10-2019 Anion gap [Moles/Vol] 12 mmol/L 9 - 17 mmol/L [place] Bun/Cre Ratio NOT REPORTED [place] Calcium [Mass/Vol] 9.3 mg/dL 8.6 - 10. 4 mg/dL [place] Chloride [Moles/Vol] 102 mmol/L 98 - 10 7 mmol/L [place] CO2 [Moles/Vol] 27 mmol/L 20 - 31 mmol/L [place] Creatinine [Mass/Vol] 1.69 mg/dL High 0.7 - 1.2 mg/dL [place] GFR 47 mL/min Low >60 [place] GFR Non- 39 mL/min Low >60 [place] GFR/1.73 sq M predicted among non-blacks MDRD (S/P/Bld) [Vol rate/Area] NOT REPORTED [place] GFR/1.73 sq M predicted among non-blacks MDRD (S/P/Bld) [Vol rate/Area] [place] Comment on above: Average GFR for 70 o r more years old: 75 mL/min/1.73sq m Chronic Kidney Disease: <60 mL/min/1.73sq m Kidney failure: <15 mL/min/1.73sq m eGFR calculated using average adult body mass. Additional eGFR calculator available at: http://www.CloudPay.net.Re5ult/multiple_crcl_2012.htm Glucose [Mass/Vol] 87 mg/dL 70 - 99 mg/dL [place] Interpretation and review of laboratory results Abnormal [place] Potassium [Moles/Vol] 4.2 mmol/L 3.7 - 5.3 mmol/L [place] Sodium [Moles/Vol] 141 mmol/L 135 - 144 mmol/L [place] Urea nitrogen [Mass/Vol] 24 mg/dL High 8 - 23 mg/dL [place] Digoxinon 03-10-2019 Digoxin [Mass/Vol] 0.6 ng/mL Normal 0.5-2.0 [facility] Comment on above: Result Comment: Digoxin Reference Range: Heart Failure 0.5-0.9 Atrial Fibrillation 0.8-2.0 Performed By: #### B MP #### [facility] [address] [facility] [place] [address] Loans Consultant: Con Oseguera MD Digoxin [Mass/Vol] 915 ng/mL Normal [facility] Comment on above: Performed By: #### B MP #### [facility] [address] [facility] [address] [place], [place] [id number] Loans Consultant: Con Oseguera MD Digoxin [Mass/Vol] [id number] ng/mL Normal [facility] Comment on above: Performed By: #### B MP #### [facility] [address] [facility] [place] [address] Loans Consultant: Con Oseguera MD Digoxin [Mass/Vol] 125mct Normal [facility] Comment on above: Performed By: #### B MP #### [facility] [address] [facility] [place] [address] Loans Consultant: Con Oseguera MD Digoxin Levelon 03-10-2019 Digoxin Date Last Dose [id number] [place] Digoxin Dose Amount 125mct [place] Digoxin Dose Time 915 [place], [place] INR Coag (Bld) [Relative time] 0.6 ng/mL 0.5 - 2 ng/mL [place] Comment on above: Digoxin Reference Range: Heart Failure 0.5-0.9 Atrial Fibrillation 0.8-2.0 Magnesiumon 03-10-2019 Magnesium [Mass/Vol] 2.1 mg/dL Normal 1.6-2.6 [facility] Comment on above: Performed By: #### B MP #### [facility] [address] [facility] [address] [place], [place] [id number] Loans Consultant: Con Oseguera MD Magnesium [Mass/Vol] 2.1 mg/dL 1.6 - 2 .6 mg/dL [place] POC Glucose Fingerstickon Glucose [Mass/Vol] 298 mg/dL High 75 - 110 mg/dL [place] Interpretation and review of laboratory results Abnormal [place] Glucose [Mass/Vol] 88 mg/dL 75 - 110 mg/dL [place] Glucose [Mass/Vol] 120 mg/dL High 75 - 110 mg/dL [place] Interpretation and review of laboratory results Abnormal [place] Glucose [Mass/Vol] 87 mg/dL 75 - 110 mg/dL [place] Basic Metab w/rfx MGon 03-09 (cont.) Normal [facility] Comment on above: Result Comment: Aver age GFR for 70 or more years old: 75 mL/min/1.73sq m Chronic Kidney Disease: <60 mL/min/1.73sq m Kidney failure: <15 mL/min/1.73sq m eGFR calculated using average adult body mass. Additional eGFR calculator available at: http://www.CloudPay.net.com/multiple_crcl_2012.htm Performed By: #### B MP #### [facility] [address] [place], [place] [id number] Loans Consultant: Con Oseguera MD Anion gap [Moles/Vol] 15 mmol/L Normal 9-17 [facility] Comment on above: Performed By: #### B MP #### [facility] [address] [place] [address] Loans Consultant: Con Oseguera MD Calcium [Mass/Vol] 10.0 mg/dL Normal 8.6-10.4 [facility] Comment on above: Performed By: #### B MP #### [facility] [address] [place] [address] Loans Consultant: Con Oseguera MD Chloride [Moles/Vol] 98 mmol/L Normal 98-107 [facility] Comment on above: Performed By: #### B MP #### [facility] [address] [place] [address] Loans Consultant: Con Oseguera MD CO2 [Moles/Vol] 24 mmol/L Normal 20-31 [facility] Comment on above: Performed By: #### B MP #### [facility] [address] [place] [address] Loans Consultant: Con Oseguera MD Creatinine [Mass/Vol] 1.54 mg/dL High 0.70-1.20 [facility] Comment on above: Performed By: #### B MP #### [facility] [address] [place] [address] Loans Consultant: Con Oseguera MD GFR, Amer 53 mL/min Low >60 [facility] Comment on above: Performed By: #### B MP #### [facility] [address] [place] [address] Loans Consultant: Con Oseguera MD GFR,non Amer 44 mL/min Low >60 [facility] Comment on above: Performed By: #### B MP #### [facility] [address] [place] [address] Loans Consultant: Con Oseguera MD Glucose [Mass/Vol] 119 mg/dL High 70-99 [facility] Comment on above: Performed By: #### B MP #### [facility] [address] [place] [address] Loans Consultant: Con Oseguera MD Potassium [Moles/Vol] 4.4 mmol/L Normal 3.7-5.3 [facility] Comment on above: Performed By: #### B MP #### [facility] [address] [place] [address] Loans Consultant: Con Oseguera MD Sodium [Moles/Vol] 137 mmol/L Normal 135-144 [facility] Comment on above: Performed By: #### B MP #### [facility] [address] [place] [address] Loans Consultant: Con Oseguera MD Urea nitrogen [Mass/Vol] 22 mg/dL Normal 8-23 [facility] Comment on above: Performed By: #### B MP #### [facility] [address] [place] [address] Loans Consultant: Con Oseguera MD BUN/CRE Ratio NOT REPORTED Normal 9-20 [facility] Comment on above: Performed By: #### B MP #### [facility] [address] [place] [address] Loans Consultant: Con Oseguera MD Staging: NOT REPORTED Normal [facility] Comment on above: Performed By: #### B MP #### [facility] [address] [place] [address] Loans Consultant: Con Oseguera MD Basic Metabolic Panel w/ Ref milagros to MGon 03-09-2019 Anion gap [Moles/Vol] 15 mmol/L 9 - 17 mmol/L [facility], [place] Bun/Cre Ratio NOT REPORTED [facility] [place], [place] Calcium [Mass/Vol] 10.0 mg/dL 8.6 - 10. 4 mg/dL [place] Chloride [Moles/Vol] 98 mmol/L 98 - 10 7 mmol/L [place] CO2 [Moles/Vol] 24 mmol/L 20 - 31 mmol/L [place] Creatinine [Mass/Vol] 1.54 mg/dL High 0.7 - 1.2 mg/dL [place] GFR 53 mL/min Low >60 [place] GFR Non- 44 mL/min Low >60 [place] GFR/1.73 sq M predicted among non-blacks MDRD (S/P/Bld) [Vol rate/Area] [place] Comment on above: Average GFR for 70 o r more years old: 75 mL/min/1.73sq m Chronic Kidney Disease: <60 mL/min/1.73sq m Kidney failure: <15 mL/min/1.73sq m eGFR calculated using average adult body mass. Additional eGFR calculator available at: http://www.StyleShare/multiple_crcl_2012.htm GFR/1.73 sq M predicted among non-blacks MDRD (S/P/Bld) [Vol rate/Area] NOT REPORTED [place], [place] Glucose [Mass/Vol] 119 mg/dL High 70 - 99 mg/dL [place] Interpretation and review of laboratory results Abnormal [place] Potassium [Moles/Vol] 4.4 mmol/L 3.7 - 5.3 mmol/L [place] Sodium [Moles/Vol] 137 mmol/L 135 - 144 mmol/L [place] Urea nitrogen [Mass/Vol] 22 mg/dL 8 - 23 mg/dL [place] Cult,Urine,Cathon 03-09-2019 Cult,Urine,Cath Specimen Description .CATHETERIZED URINE Special Requests NOT REPORTED Culture KLEBSIELLA PNEUMONIAE >[id number] CFU/ML Report Status FINAL 03/09/2019 SUSCEPTIBILITY Organism [...] REPORTED Tobramycin <=1 SUSCEPTIBLE Trimethoprim/Sulfa <=20 SUSCEPTIBLE Piperacillin/Tazobac sanabria <=4 SUSCEPTIBLE Normal [facility] Comment on above: Performed By: #### B MP #### [facility] [address] [place] [address] Loans Consultant: Con Oseguera MD POC Glucose Fingerstickon Glucose [Mass/Vol] 199 mg/dL High 75 - 110 mg/dL [place] Interpretation and review of laboratory results Abnormal [place] Glucose [Mass/Vol] 296 mg/dL High 75 - 110 mg/dL [place] Interpretation and review of laboratory results Abnormal [place] Glucose [Mass/Vol] 299 mg/dL High 75 - 110 mg/dL [place] Interpretation and review of laboratory results Abnormal [place] Glucose [Mass/Vol] 124 mg/dL High 75 - 110 mg/dL [place] Interpretation and review of laboratory results Abnormal [place] Urine culture via catheteron 03-09-2019 Culture KLEBSIELLA PNEUMONIAE >[id number] CFU/ML Abnormal [place] Interpretation and review of laboratory results Abnormal [place] Special Requests NOT REPORTED [place] Specimen Description .CATHETERIZED URINE [place] Basic Metab w/rfx MGon 03-08 (cont.) Normal [facility] Comment on above: Result Comment: Aver age GFR for 70 or more years old: 75 mL/min/1.73sq m Chronic Kidney Disease: <60 mL/min/1.73sq m Kidney failure: <15 mL/min/1.73sq m eGFR calculated using average adult body mass. Additional eGFR calculator available at: http://www.CloudPay.net.Re5ult/multiple_crcl_2012.htm Performed By: #### B MP #### [facility] [address] [place] [address] Loans Consultant: Con Oseguera MD Anion gap [Moles/Vol] 11 mmol/L Normal 9-17 [facility] Comment on above: Performed By: #### B MP #### [facility] [address] [place] [address] Loans Consultant: Con Oseguera MD Calcium [Mass/Vol] 9.3 mg/dL Normal 8.6-10.4 [facility] Comment on above: Performed By: #### B MP #### [facility] [place] [address] Loans Consultant: Con Oseguera MD Chloride [Moles/Vol] 100 mmol/L Normal 98-107 [facility] Comment on above: Performed By: #### B MP #### [facility] [place] [address] Loans Consultant: Con Oseguera MD CO2 [Moles/Vol] 28 mmol/L Normal 20-31 [facility] Comment on above: Performed By: #### B MP #### [facility] [place] [address] Loans Consultant: Con Oseguera MD Creatinine [Mass/Vol] 1.57 mg/dL High 0.70-1.20 [facility] Comment on above: Performed By: #### B MP #### [facility] [address] [place] [address] Loans Consultant: Con Oseguera MD GFR, Amer 52 mL/min Low >60 [facility] Comment on above: Performed By: #### B MP #### [facility] [address] [place] [address] Loans Consultant: Con Oseguera MD GFR,non Amer 43 mL/min Low >60 [facility] Comment on above: Performed By: #### B MP #### [facility] [address] [place] [address] Loans Consultant: Con Oseguera MD Glucose [Mass/Vol] 75 mg/dL Normal 70-99 [facility] Comment on above: Performed By: #### B MP #### [facility] [address] [place] [address] Loans Consultant: Con Oseguera MD Potassium [Moles/Vol] 4.6 mmol/L Normal 3.7-5.3 [facility] Comment on above: Performed By: #### B MP #### [facility] [address] [place] [address] Loans Consultant: Con Oseguera MD Sodium [Moles/Vol] 139 mmol/L Normal 135-144 [facility] Comment on above: Performed By: #### B MP #### [facility] [address] [place] [address] Loans Consultant: Con Oseguera MD Urea nitrogen [Mass/Vol] 27 mg/dL High 8-23 [facility] Comment on above: Performed By: #### B MP #### [facility] [address] [place] [address] Loans Consultant: Con Oseguera MD BUN/CRE Ratio NOT REPORTED Normal 9-20 [facility] Comment on above: Performed By: #### B MP #### [facility] [address] [place] [address] Loans Consultant: Con Oseguera MD Staging: NOT REPORTED Normal [facility] Comment on above: Performed By: #### B MP #### [facility] [address] [place] [address] Loans Consultant: Con Oseguera MD Basic Metabolic Panel w/ Ref milagros to MGon 03-08-2019 Anion gap [Moles/Vol] 11 mmol/L 9 - 17 mmol/L [place], [place] Bun/Cre Ratio NOT REPORTED [place] Calcium [Mass/Vol] 9.3 mg/dL 8.6 - 10. 4 mg/dL [place] Chloride [Moles/Vol] 100 mmol/L 98 - 10 7 mmol/L [place] CO2 [Moles/Vol] 28 mmol/L 20 - 31 mmol/L [place] Creatinine [Mass/Vol] 1.57 mg/dL High 0.7 - 1.2 mg/dL [place] GFR 52 mL/min Low >60 [place] GFR Non- 43 mL/min Low >60 [place] GFR/1.73 sq M predicted among non-blacks MDRD (S/P/Bld) [Vol rate/Area] [place] Comment on above: Average GFR for 70 o r more years old: 75 mL/min/1.73sq m Chronic Kidney Disease: <60 mL/min/1.73sq m Kidney failure: <15 mL/min/1.73sq m eGFR calculated using average adult body mass. Additional eGFR calculator available at: http://www.CloudPay.net.Re5ult/multiple_crcl_2012.htm GFR/1.73 sq M predicted among non-blacks MDRD (S/P/Bld) [Vol rate/Area] NOT REPORTED [place] Glucose [Mass/Vol] 75 mg/dL 70 - 99 mg/dL [place] Interpretation and review of laboratory results Abnormal [place] Potassium [Moles/Vol] 4.6 mmol/L 3.7 - 5.3 mmol/L [place] Sodium [Moles/Vol] 139 mmol/L 135 - 144 mmol/L [place] Urea nitrogen [Mass/Vol] 27 mg/dL High 8 - 23 mg/dL [place] EKG 12 Leadon 03-08-2019 Atrial Rate 49 BPM [place] Q-T Interval 406 ms [place] QRS Duration 80 ms [place] QTc Calculation (Bazett) 465 ms [place] R Stirum -13 degrees [place] T Stirum 40 degrees [place] Ventricular Rate 79 BPM [place], [place] Stan, Mhpn Incoming Ekg Results From [facility] [place] - 03/08/2019 10:18 AM EDT Atrial fibrillation Abnormal ECG When compared with ECG of 07-MAR-2019 17:56, (unconfirmed) No significant change was found [place] Atrial fibrillation Abnormal ECG When compared with ECG of 07-MAR-2019 17:56, (unconfirmed) No significant change was found [place] Hemoglobin A1Con 03-08-2019 HbA1c (Bld) [Mass fraction] 157 mg/dL Normal [facility] Comment on above: Result Comment: The ADA and AACC recommend providing the estimated average glucose result to permit better patient understanding of their HBA1c result. Performed By: #### B MP #### [facility] [address] [place] [address] Loans Consultant: Con Oseguera MD HbA1c (Bld) [Mass fraction] 7.1 % High 4.0-6.0 [facility] Comment on above: Performed By: #### B MP #### [facility] [address] [place], [place] [id number] Loans Consultant: Con Oseguera MD Glucose [Mass/Vol] 157 mg/dL [place] Comment on above: The ADA and AACC rec ommend providing the estimated average glucose result to permit better patient understanding of their HBA1c result. HbA1c (Bld) [Mass fraction] 7.1 % High 4 - 6 % [place] Interpretation and review of laboratory results Abnormal [place] POC Glucose Fingerstickon Glucose [Mass/Vol] 220 mg/dL High 75 - 110 mg/dL [place] Interpretation and review of laboratory results Abnormal [place] Glucose [Mass/Vol] 144 mg/dL High 75 - 110 mg/dL [place] Interpretation and review of laboratory results Abnormal [place] Glucose [Mass/Vol] 325 mg/dL High 75 - 110 mg/dL [place] Interpretation and review of laboratory results Abnormal [place] Glucose [Mass/Vol] 138 mg/dL High 75 - 110 mg/dL [place] Interpretation and review of laboratory results Abnormal [place] Glucose [Mass/Vol] 63 mg/dL Low 75 - 110 mg/dL [place] Interpretation and review of laboratory results Abnormal [place] Brain Natri. Peptideon 03-07 Natriuretic peptide B (Bld) [Mass/Vol] Pro-BNP Reference Range: Normal [facility] Comment on above: Result Comment: Rule Out: <300 Miranda Zone: Age <50 300-450 Age 50-75 300-900 Age >75 300-1800 Usually represents mild to moderate HF but other cardiopulmonary causes cannot be ruled out. Rule In: Age <50 >450 Age 50-75 >900 Age >75 >1800 Performed By: #### B MP #### [facility] [address] [facility] [address] [place], [place] [id number] Loans Consultant: Con Oseguera MD Natriuretic peptide B (Bld) [Mass/Vol] 946 pg/mL High <300 [facility] Comment on above: Result Comment: Pro- BNP results cannot be compared to BNP results. Performed By: #### B MP #### [facility] [address] [place] [address] Loans Consultant: Con Oseguera MD Brain Natriuretic Peptideon 03-07-2019 Interpretation and review of laboratory results Abnormal [place] Natriuretic peptide B (Bld) [Mass/Vol] Pro-BNP Reference Range: [place], [place] Comment on above: Rule Out: <300 Miranda Zone: Age <50 300-450 Age 50-75 300-900 Age >75 300-1800 Usually represents mild to moderate HF but other cardiopulmonary causes cannot be ruled out. Rule In: Age <50 >450 Age 50-75 >900 Age >75 >1800 Natriuretic peptide B (Bld) [Mass/Vol] 946 pg/mL High <300 [place], [place] Comment on above: Pro-BNP results darrius ot be compared to BNP results. CBC Auto Differentialon 02-25 Basophils (Bld) [#/Vol] 0.10 10*3/uL [place] Basophils/100 WBC (Bld) 1 % 0 - 2 % [place] Differential Type NOT REPORTED [place] Eosinophils (Bld) [#/Vol] 0.10 10*3/uL [place] Eosinophils/100 WBC (Bld) 1 % 0 - 4 % [place] Erythrocyte distribution width (RBC) [Ratio] 29.0 % High 11.5 - 14.9 % [place] Hematocrit (Bld) [Volume fraction] 33.5 % Low 41 - 53 % [place] Hemoglobin (Bld) [Mass/Vol] 10.5 g/dL Low 13.5 - 17.5 g/dL [place], [place] Interpretation and review of laboratory results Abnormal [place] Lymphocytes (Bld) [#/Vol] 0.72 10*3/uL [place], [place] Lymphocytes/100 WBC (Bld) 7 % Low 24 - 44 % [place] MCH (RBC) [Entitic mass] 22.4 pg Low 26 - 34 pg [place] MCHC (RBC) [Mass/Vol] 31.2 g/dL 31 - 37 g/dL [place] MCV (RBC) [Entitic vol] 71.7 fL Low 80 - 100 fL [place], [place] Monocytes (Bld) [#/Vol] 0.72 10*3/uL [place] Monocytes/100 WBC (Bld) 7 % 1 - 7 % [place] Morphology Theo (Bld) [Interp] ANISOCYTOSIS PRESENT [place], [place] Morphology Theo (Bld) [Interp] HYPOCHROMIA PRESENT [place], [place] Morphology Theo (Bld) [Interp] MICROCYTOSIS PRESENT [place] Platelet mean volume (Bld) [Entitic vol] 8.6 fL 6 - 12 fL [place] Platelets (Bld) [#/Vol] NOT REPORTED [place], [place] Platelets (Bld) [#/Vol] 273 10*3/uL [place] RBC (Bld) [#/Vol] 4.68 10*6/uL 4.5 - 5.9 m/uL [place] RBC morphology finding Nom (Bld) NOT REPORTED [place] Segmented neutrophils/100 WBC (Bld) 84 % High 36 - 66 % [place] Segs Absolute 8.66 [place], [place] WBC (Bld) [#/Vol] NOT REPORTED per 100 WBC [place] WBC (Bld) [#/Vol] 10.3 10*3/uL [place] WBC Morphology NOT REPORTED [place], [place] CBC with Diffon 03-07-2019 Abs. Basophil 0.10 k/uL Normal 0.0-0.2 [facility] Comment on above: Performed By: #### B MP #### [facility] [address] [place] [address] Loans Consultant: Con Oseguera MD Abs.Neutrophil (Seg) 8.66 k/uL Normal 1.3-9.1 [facility] Comment on above: Performed By: #### B MP #### [facility] [address] [place] [address] Loans Consultant: Con Oseguera MD Basophils/100 WBC (Bld) 1 % Normal 0-2 [facility] Comment on above: Performed By: #### B MP #### [facility] [address] [place] [address] Loans Consultant: Con Oseguera MD Eosinophils (Bld) [#/Vol] 0.10 10*3/uL Normal 0.0-0.4 [facility] Comment on above: Performed By: #### B MP #### [facility] [address] [place] [address] Loans Consultant: Con Oseguera MD Eosinophils/100 WBC (Bld) 1 % Normal 0-4 [facility] Comment on above: Performed By: #### B MP #### [facility] [address] [place] [address] Loans Consultant: Con Oseguera MD Lymphocytes (Bld) [#/Vol] 0.72 10*3/uL Low 1.0-4.8 [facility] Comment on above: Performed By: #### B MP #### [facility] [address] [place] [address] Loans Consultant: Con Oseguera MD Lymphocytes/100 WBC (Bld) 7 % Low 24-44 [facility] Comment on above: Performed By: #### B MP #### [facility] [address] [place] [address] Loans Consultant: Con Oseguera MD Monocytes (Bld) [#/Vol] 0.72 10*3/uL Normal 0.1-1.3 [facility] Comment on above: Performed By: #### B MP #### [facility] [address] [place] [address] Loans Consultant: Con Oseguera MD Monocytes/100 WBC (Bld) 7 % Normal 1-7 [facility] Comment on above: Performed By: #### B MP #### [facility] [address] [place] [address] Loans Consultant: Con Oseguera MD Morphology Theo (Bld) [Interp] ANISOCYTOSIS PRESENT Normal [facility] Comment on above: Result Comment: MICR OCYTOSIS PRESENT HYPOCHROMIA PRESENT Performed By: #### B MP #### [facility] [place] [address] Loans Consultant: Con Oseguera MD Neutrophil (Seg) 84 % High 36-66 [facility] Comment on above: Performed By: #### B MP #### [facility] [place] [address] Loans Consultant: Con Oseguera MD Erythrocyte distribution width (RBC) [Ratio] 29.0 % High 11.5-14.9 [facility] Comment on above: Performed By: #### B MP #### [facility] [address] [place] [address] Loans Consultant: Con Oseguera MD Hematocrit (Bld) [Volume fraction] 33.5 % Low 41-53 [facility] Comment on above: Performed By: #### B MP #### [facility] [address] [place] [address] Loans Consultant: Con Oseguera MD Hemoglobin (Bld) [Mass/Vol] 10.5 g/dL Low 13.5-17.5 [facility] Comment on above: Performed By: #### B MP #### [facility] [address] [place] [address] Loans Consultant: Con Oseguera MD MCH (RBC) [Entitic mass] 22.4 pg Low 26-34 [facility] Comment on above: Performed By: #### B MP #### [facility] [address] [place] [address] Loans Consultant: Con Oseguera MD MCHC (RBC) [Mass/Vol] 31.2 g/dL Normal 31-37 [facility] Comment on above: Performed By: #### B MP #### [facility] [address] [facility] [place] [address] Loans Consultant: Con Oseguera MD MCV (RBC) [Entitic vol] 71.7 fL Low 80-100 [facility] Comment on above: Performed By: #### B MP #### [facility] [place] [address] Loans Consultant: Con Oseguera MD Platelet mean volume (Bld) [Entitic vol] 8.6 fL Normal 6.0-12.0 [facility] Comment on above: Performed By: #### B MP #### [facility] [address] [place] [address]. [place] [address] Loans Consultant: Con Oseguera MD Platelets (Bld) [#/Vol] 273 10*3/uL Normal 150-450 [facility] Comment on above: Performed By: #### B MP #### [facility] [address] [place] [address]. [place] [address] Loans Consultant: Con Oseguera MD RBC (Bld) [#/Vol] 4.68 10*6/uL Normal 4.5-5.9 [facility] Comment on above: Performed By: #### B MP #### [facility] [address] [place] [address]. [place] [address] Loans Consultant: Con Oseguera MD WBC (Bld) [#/Vol] 10.3 10*3/uL Normal 3.5-11.0 [facility] Comment on above: Performed By: #### B MP #### [facility] [address] [place] [address] Loans Consultant: Con Oseguera MD Abs.Imm.Granulocyte NOT REPORTED Normal 0.00-0.30 [facility] Comment on above: Performed By: #### B MP #### [facility] [address] [place] [address] Loans Consultant: Con Oseguera MD Auto Diff Performed NOT REPORTED Normal [facility] Comment on above: Performed By: #### B MP #### [facility] [address] [place] [address] Loans Consultant: Con Oseguera MD Immature granulocytes (Bld) [#/Vol] NOT REPORTED Normal 0 [facility] Comment on above: Performed By: #### B MP #### [facility] [address] [place] [address] Loans Consultant: Con Oseguera MD NRBC Automated NOT REPORTED Normal [facility] Comment on above: Performed By: #### B MP #### [facility] [place] [address] Loans Consultant: Con Oseguera MD Platelets (Bld) [#/Vol] NOT REPORTED Normal [facility] Comment on above: Performed By: #### B MP #### [facility] [address] [place] [address] Loans Consultant: Con Oseguera MD RBC morphology finding Nom (Bld) NOT REPORTED Normal [facility] Comment on above: Performed By: #### B MP #### [facility] [address] [facility] [place] [address] Loans Consultant: Con Oseguera MD WBC Morphology NOT REPORTED Normal [facility] Comment on above: Performed By: #### B MP #### [facility] [place] [address] Loans Consultant: Con Oseguera MD CT ABDOMEN PELVIS WO [...] Pelvis: There is moderate to severe prostatomegaly. Peritoneum/Retroperi toneum: Vascular calcifications are noted. No pathologically enlarged [...] Del Angel MD 03/07/19 Final result Normal [facility] EXAMINATION: CT OF THE ABDOMEN [...] Pelvis: There is moderate to severe prostatomegaly. Peritoneum/Retroperi toneum: Vascular calcifications are noted. No pathologically enlarged lymph nodes are visualized. Bones/Soft Tissues: Degenerative changes of the spine are present. DoseMe [facility], [place] Bibasilar consolidative changes and right middle lobe pulmonary infiltrates, consistent with pneumonia in the appropriate clinical setting. Mild left pleural effusion. Diverticulosis coli, without evidence of diverticulitis or colitis. Prostatomegaly. [place], [place] Stan, Mhpn Incoming Radiant Results From [employer] - 03/07/2019 7:00 PM EDT EXAMINATION: CT [...] Pelvis: There is moderate to severe prostatomegaly. Peritoneum/Retroperi toneum: Vascular calcifications are noted. No pathologically enlarged lymph nodes are visualized. Bones/Soft Tissues: Degenerative changes of the spine are present. IMPRESSION: Bibasilar consolidative changes and right middle lobe pulmonary infiltrates, consistent with pneumonia in the appropriate clinical setting. Mild left pleural effusion. Diverticulosis coli, without evidence of diverticulitis or colitis. Prostatomegaly. [place], [place] Comp Metabolic Profon 2018 (cont.) Normal [facility] Comment on above: Result Comment: Aver age GFR for 70 or more years old: 75 mL/min/1.73sq m Chronic Kidney Disease: <60 mL/min/1.73sq m Kidney failure: <15 mL/min/1.73sq m eGFR calculated using average adult body mass. Additional eGFR calculator available at: http://www.CloudPay.net.Re5ult/multiple_crcl_2012.htm Performed By: #### B MP #### [facility] [address] [facility] [place] [address] Loans Consultant: Con Oseguera MD Albumin [Mass/Vol] 3.8 g/dL Normal 3.5-5.2 [facility] Comment on above: Performed By: #### B MP #### [facility] [place] [address] Loans Consultant: Con Oseguera MD Alkaline Phos 166 U/L High 40-129 [facility] Comment on above: Performed By: #### B MP #### [facility] [address] [place] [address]. [place] [address] Loans Consultant: Con Oseguera MD ALT [Catalytic activity/Vol] 28 U/L Normal 5-41 [facility] Comment on above: Performed By: #### B MP #### [facility] [address] [place] [address] Loans Consultant: Con Oseguera MD Anion gap [Moles/Vol] 12 mmol/L Normal 9-17 [facility] Comment on above: Performed By: #### B MP #### [facility] [address] [place] [address] Loans Consultant: Con Oseguera MD AST [Catalytic activity/Vol] 26 U/L Normal <40 [facility] Comment on above: Performed By: #### B MP #### [facility] [place] [address] Loans Consultant: Con Oseguera MD Bilirubin Ql (U) 0.20 mg/dL Low 0.3-1.2 [facility] Comment on above: Performed By: #### B MP #### [facility] [address] [place] [address] Loans Consultant: Con Oseguera MD Calcium [Mass/Vol] 9.5 mg/dL Normal 8.6-10.4 [facility] Comment on above: Performed By: #### B MP #### [facility] [address] [place] [address] Loans Consultant: Con Oseguera MD Chloride [Moles/Vol] 98 mmol/L Normal 98-107 [facility] Comment on above: Performed By: #### B MP #### [facility] [address] [place] [address] Loans Consultant: Con Oseguera MD CO2 [Moles/Vol] 28 mmol/L Normal 20-31 [facility] Comment on above: Performed By: #### B MP #### [facility] [address] [place] [address] Loans Consultant: Con Oseguera MD Creatinine [Mass/Vol] 1.70 mg/dL High 0.70-1.20 [facility] Comment on above: Performed By: #### B MP #### [facility] [address] [place] [address] Loans Consultant: Con Oseguera MD GFR, Amer 47 mL/min Low >60 [facility] Comment on above: Performed By: #### B MP #### [facility] [address] [place] [address] Loans Consultant: Con Oseguera MD GFR,non Amer 39 mL/min Low >60 [facility] Comment on above: Performed By: #### B MP #### [facility] [address] [place] [address] Loans Consultant: Con Oseguera MD Glucose [Mass/Vol] 63 mg/dL Low 70-99 [facility] Comment on above: Performed By: #### B MP #### [facility] [address] [place] [address] Loans Consultant: Con Oseguera MD Potassium [Moles/Vol] 4.6 mmol/L Normal 3.7-5.3 [facility] Comment on above: Performed By: #### B MP #### [facility] [address] [place] [address] Loans Consultant: Con Oseguera MD Protein [Mass/Vol] 6.8 g/dL Normal 6.4-8.3 [facility] Comment on above: Performed By: #### B MP #### [facility] [address] [place] [address] Loans Consultant: Con Oseguera MD Sodium [Moles/Vol] 138 mmol/L Normal 135-144 [facility] Comment on above: Performed By: #### B MP #### [facility] [address] [place] [address] Loans Consultant: Con Oseguera MD Urea nitrogen [Mass/Vol] 30 mg/dL High 8-23 [facility] Comment on above: Performed By: #### B MP #### [facility] [address] [place] [address] Loans Consultant: Con Oseguera MD Albumin/Globulin [Mass ratio] NOT REPORTED Normal 1.0-2.5 [facility] Comment on above: Performed By: #### B MP #### [facility] [address] [place] [address] Loans Consultant: Con Oseguera MD BUN/CRE Ratio NOT REPORTED Normal 9-20 [facility] Comment on above: Performed By: #### B MP #### [facility] [address] [place] [address] Loans Consultant: Con Oseguera MD Staging: NOT REPORTED Normal [facility] Comment on above: Performed By: #### B MP #### [facility] [address] [place] [address] Loans Consultant: Con Oseguera MD Comprehensive Metabolic Pane blanca 03-07-2019 Albumin [Mass/Vol] 3.8 g/dL 3.5 - 5.2 g/dL [place] Albumin/Globulin [Mass ratio] NOT REPORTED [place] ALP [Catalytic activity/Vol] 166 U/L High 40 - 129 U/L [place] ALT [Catalytic activity/Vol] 28 U/L 5 - 41 U/L [place] Anion gap [Moles/Vol] 12 mmol/L 9 - 17 mmol/L [place] AST [Catalytic activity/Vol] 26 U/L <40 [place] Bilirubin Ql (U) 0.20 mg/dL Low 0.3 - 1.2 mg/dL [place] Bun/Cre Ratio NOT REPORTED [place] Calcium [Mass/Vol] 9.5 mg/dL 8.6 - 10. 4 mg/dL [place] Chloride [Moles/Vol] 98 mmol/L 98 - 10 7 mmol/L [place] CO2 [Moles/Vol] 28 mmol/L 20 - 31 mmol/L [place] Creatinine [Mass/Vol] 1.7 mg/dL High 0.7 - 1.2 mg/dL [place] GFR 47 mL/min Low >60 [place], [place] GFR Non- 39 mL/min Low >60 [place] GFR/1.73 sq M predicted among non-blacks MDRD (S/P/Bld) [Vol rate/Area] NOT REPORTED [place] GFR/1.73 sq M predicted among non-blacks MDRD (S/P/Bld) [Vol rate/Area] [place], [place] Comment on above: Average GFR for 70 o r more years old: 75 mL/min/1.73sq m Chronic Kidney Disease: <60 mL/min/1.73sq m Kidney failure: <15 mL/min/1.73sq m eGFR calculated using average adult body mass. Additional eGFR calculator available at: http://www.CloudPay.net.Re5ult/multiple_crcl_2012.htm Glucose [Mass/Vol] 63 mg/dL Low 70 - 99 mg/dL [place] Potassium [Moles/Vol] 4.6 mmol/L 3.7 - 5.3 mmol/L [place] Protein [Mass/Vol] 6.8 g/dL 6.4 - 8.3 g/dL [place] Sodium [Moles/Vol] 138 mmol/L 135 - 144 mmol/L [place] Urea nitrogen [Mass/Vol] 30 mg/dL High 8 - 23 mg/dL [place] Lipaseon 03-07-2019 Lipase [Catalytic activity/Vol] 83 U/L High 13-60 [facility] Comment on above: Performed By: #### B MP #### [facility] [address] [place] [address] Loans Consultant: Con Oseguera MD Lipase [Catalytic activity/Vol] 83 U/L High 13 - 60 U/L [place] Microscopic Urinalysison Amorphous, UA NOT REPORTED None [place] Bacteria, UA MODERATE Abnormal None [place], [place] Casts UA NOT REPORTED /LPF [place] Crystals UA NOT REPORTED None /HPF [place] Epithelial Cells UA 0 TO 2 /HPF [place] Interpretation and review of laboratory results Abnormal [place] Mucus, UA NOT REPORTED None [place] Other Observations UA NOT REPORTED NOT REQ. [place] RBC (U) [#/Vol] 10 TO 20 /HPF [place] Renal Epithelial, Urine NOT REPORTED 0 /HPF [place], [place] Trichomonas, UA NOT REPORTED None [place], [place] WBC, UA 20 TO 50 /HPF [place], [place] Yeast, UA NOT REPORTED None [place], [place] - [place], [place] Otheron 03-07-2019 Immature granulocytes (Bld) [#/Vol] NOT REPORTED [place] Interpretation and review of laboratory results Abnormal [place] POC Glucose Fingerstickon Glucose [Mass/Vol] 167 mg/dL High 75 - 110 mg/dL [place] Interpretation and review of laboratory results Abnormal [place], [place] Glucose [Mass/Vol] 124 mg/dL High 75 - 110 mg/dL [place] Interpretation and review of laboratory results Abnormal [place] POCT Glucoseon 03-07-2019 Glucose [Mass/Vol] 124 mg/dL [place], [place] Interpretation and review of laboratory results Normal [place], [place] QC OK? y [place] Troponinon 03-07-2019 Troponin I.cardiac [Mass/Vol] 27 ng/L High 0-22 [facility] Comment on above: Result Comment: High Sensitivity Troponin values cannot be compared with other Troponin methodologies. Patients with high levels of Biotin oral intake (i.e >5mg/day) may have falsely decreased Troponin levels. Samples collected within 8 hours of biotin intake may require additional information for diagnosis. Performed By: #### B MP #### [facility] [address] [place] [address] Loans Consultant: Con Oseguera MD Troponin I.cardiac [Mass/Vol] 29 ng/L High 0-22 [facility] Comment on above: Result Comment: High Sensitivity Troponin values cannot be compared with other Troponin methodologies. Patients with high levels of Biotin oral intake (i.e >5mg/day) may have falsely decreased Troponin levels. Samples collected within 8 hours of biotin intake may require additional information for diagnosis. Performed By: #### B MP #### [facility] [address]. [place], [place] [id number] Loans Consultant: Con Oseguera MD Interpretation and review of laboratory results Abnormal [place] Troponin I.cardiac [Mass/Vol] NOT REPORTED [place] Troponin T.cardiac [Mass/Vol] NOT REPORTED <0.03 ng/mL [place] Troponin, High Sensitivity 27 ng/L High 0 - 22 ng/L [place] Comment on above: High Sensitivity Troponin values cannot be compared with other Troponin methodologies. Patients with high levels of Biotin oral intake (i.e >5mg/day) may have falsely decreased Troponin levels. Samples collected within 8 hours of biotin intake may require additional information for diagnosis. Troponin I.cardiac [Mass/Vol] NOT REPORTED Normal [facility] Comment on above: Performed By: #### B MP #### [facility] [address] [place] [address] Loans Consultant: Con Oseguera MD Troponin I.cardiac [Mass/Vol] NOT REPORTED Normal <0.03 [place] Comment on above: Performed By: #### B MP #### [facility] [address] [facility] [place] [address] Loans Consultant: Con Oseguera MD Interpretation and review of laboratory results Abnormal [place] Troponin T.cardiac [Mass/Vol] NOT REPORTED <0.03 ng/mL [place] Troponin, High Sensitivity 29 ng/L High 0 - 22 ng/L [place] Comment on above: High Sensitivity Troponin values cannot be compared with other Troponin methodologies. Patients with high levels of Biotin oral intake (i.e >5mg/day) may have falsely decreased Troponin levels. Samples collected within 8 hours of biotin intake may require additional information for diagnosis. UA w/Reflex Cultureon 2018 Acetoacetic Acid,Ur Negative Normal NEG [facility] Comment on above: Performed By: #### B MP #### [facility] [address] [facility] [place] [address] Loans Consultant: Con Oseguera MD Bilirubin, SemiQt,Ur Negative Normal NEG [facility] Comment on above: Performed By: #### B MP #### [facility] [address] [facility] [place] [address] Loans Consultant: Con Oseguera MD Color (U) YELLOW Normal YEL [facility] Comment on above: Performed By: #### B MP #### [facility] [address] [facility] [place] [address] Loans Consultant: Con Oseguera MD Glucose Ql (U) Negative Normal NEG [facility] Comment on above: Performed By: #### B MP #### [facility] [address] [place] [address] Loans Consultant: Con Oseguera MD Hemoglobin, Ur MOD Abnormal NEG [facility] Comment on above: Performed By: #### B MP #### [facility] [address] [place] [address] Loans Consultant: Con Oseguera MD Leukocyte esterase Test strip Ql (U) LARGE Abnormal NEG [facility] Comment on above: Performed By: #### B MP #### [facility] [address] [place] [address] Loans Consultant: Con Oseguera MD Nitrite,Ur Negative Normal NEG [facility] Comment on above: Performed By: #### B MP #### [facility] [address] [place] [address] Loans Consultant: Con Oseguera MD pH (U) 6.5 [pH] Normal 5.0-8.0 [facility] Comment on above: Performed By: #### B MP #### [facility] [address] [facility] [place] [address] Loans Consultant: Con Oseguera MD Protein Ql (U) 2+ Abnormal NEG [facility] Comment on above: Performed By: #### B MP #### [facility] [address] [place] [address] Loans Consultant: Con Oseguera MD Specific gravity (U) [Rel density] 1.017 Normal 1.000-1.030 [facility] Comment on above: Performed By: #### B MP #### [facility] [address] [place] [address] Loans Consultant: Con Oseguera MD Turbidity CLOUDY Abnormal CLEAR [facility] Comment on above: Performed By: #### B MP #### [facility] [address] [place] [address] Loans Consultant: Con Oseguera MD Urobilinogen,Ur Normal Normal NORM [facility] Comment on above: Performed By: #### B MP #### [facility] [address] [facility] [place] [address] Loans Consultant: Con Oseguera MD Comment NOT REPORTED Normal [facility] Comment on above: Performed By: #### B MP #### [facility] [address] [facility] [place] [address] Loans Consultant: Con Oseguera MD Urinalysis Reflex to Culture on 03-07-2019 Bilirubin Urine Negative [facility]IVE [facility] [place] Color, UA YELLOW YELLOW [facility] [place] Glucose, Ur Negative NEGATIVE [facility] Interpretation and review of laboratory results Abnormal [facility] [place] Ketones Ql (U) Negative NEGATIVE [facility] Leukocyte esterase Test strip Ql (U) LARGE Abnormal NEGATIVE [facility] [place] Nitrite, Urine Negative NEGATIVE [facility] pH, UA 6.5 [facility] Protein (U) [Mass/Vol] 2+ Abnormal NEGATIVE [facility] [place] Specific [place], UA 1.017 [facility] Turbidity UA CLOUDY Abnormal CLEAR [facility] [place] Urinalysis Comments NOT REPORTED [facility] Urine Hgb MOD Abnormal NEGATIVE [facility] [place] Urobilinogen, Urine Normal Normal [facility] [place] Urinalysis,Microon 9 ----- Normal [facility] Comment on above: Performed By: #### B MP #### [facility] [address] [facility] [place] [address] Loans Consultant: Con Oseguera MD Bacteria LM.HPF (Urine sed) [#/Area] MODERATE Abnormal NONE [facility] Comment on above: Performed By: #### B MP #### [facility] [address] [facility] [place] [address] Loans Consultant: Con Oseguera MD Epithelial cells LM.HPF (Urine sed) [#/Area] 0 TO 2 Normal [facility] Comment on above: Performed By: #### B MP #### [facility] [address] [facility] [place] [address] Loans Consultant: Con Oseguera MD RBC (U) [#/Vol] 10 TO 20 Normal [facility] Comment on above: Performed By: #### B MP #### [facility] [place] [address] Loans Consultant: Con Oseguera MD WBC (U) [#/Vol] 20 TO 50 Normal [facility] Comment on above: Performed By: #### B MP #### [facility] [address] [place] [address] Loans Consultant: Con Oseguera MD Amorphous sediment LM Ql (Urine sed) NOT REPORTED Normal [facility] Comment on above: Performed By: #### B MP #### [facility] [place] [address] Loans Consultant: Con Oseguera MD Casts LM.LPF (Urine sed) [#/Area] NOT REPORTED Normal [facility] Comment on above: Performed By: #### B MP #### [facility] [place] [address] Loans Consultant: Con Oseguera MD Crystals LM Nom (Urine sed) NOT REPORTED Normal [facility] Comment on above: Performed By: #### B MP #### [facility] [place] [address] Loans Consultant: Con Oseguera MD Epithelial, Renal NOT REPORTED Normal 0 [facility] Comment on above: Performed By: #### B MP #### [facility] [place] [address] Loans Consultant: Con Oseguera MD Mucus Strands NOT REPORTED Normal NONE [facility] Comment on above: Performed By: #### B MP #### [facility] [address] [facility] [place] [address] Loans Consultant: Con Oseguera MD Other Observations NOT REPORTED Normal NREQ [facility] Comment on above: Performed By: #### B MP #### [facility] [address] [facility] [place] [address] Loans Consultant: Con Oseguera MD Trichomonas NOT REPORTED Normal NONE [facility] Comment on above: Performed By: #### B MP #### [facility] [address] [facility] [place] [address] Loans Consultant: Con Oseguera MD Yeast LM Ql (Urine sed) NOT REPORTED Normal [facility] Comment on above: Performed By: #### B MP #### [facility] [address] [facility] [place] [address] Loans Consultant: Con Oseguera MD XR CHEST (2 VW)on [...] Yoni Faye MD 03/07/19 Final result Normal [facility] XR CHEST STANDARD (2 VW)on 0 03-07-2019 Stan, [facility] Incoming Radiant Results From [employer] - 03/07/2019 5:45 PM EDT EXAMINATION: TWO [...] bilaterally. Pneumonia is favored over atypical edema [place] Multifocal airspace disease bilaterally. Pneumonia is favored over atypical edema [place] EXAMINATION: TWO XRAY VIEWS OF THE CHEST [...] is noted. Small effusions are suggested bilaterally [place], [place] Magnesiumon 12-13-2018 Magnesium [Mass/Vol] 2.1 mg/dL Normal 1.6-2.6 [facility] Comment on above: Performed By: #### B MP #### [facility] [address] [facility] [address] [place], [place] [id number] Loans Consultant: Con Oseguera MD Basic Metabolic Profon 12-11 (cont.) Normal [facility] Comment on above: Result Comment: Aver age GFR for 70 or more years old: 75 mL/min/1.73sq m Chronic Kidney Disease: <60 mL/min/1.73sq m Kidney failure: <15 mL/min/1.73sq m eGFR calculated using average adult body mass. Additional eGFR calculator available at: http://www.[employer].net.Re5ult/multiple_crcl_2012.htm Performed By: #### B MP #### [facility] [address] [facility] [place] [address] Loans Consultant: Con Oseguera MD Anion gap [Moles/Vol] 13 mmol/L Normal 9-17 [facility] Comment on above: Performed By: #### B MP #### [facility] [address] [place] [address] Loans Consultant: Con Oseguera MD Calcium [Mass/Vol] 8.6 mg/dL Normal 8.6-10.4 [facility] Comment on above: Performed By: #### B MP #### [facility] [address] [place] [address] Loans Consultant: Con Oseguera MD Chloride [Moles/Vol] 100 mmol/L Normal 98-107 [facility] Comment on above: Performed By: #### B MP #### [facility] [place] [address] Loans Consultant: Con Oseguera MD CO2 [Moles/Vol] 22 mmol/L Normal 20-31 [facility] Comment on above: Performed By: #### B MP #### [facility] [place] [address] Loans Consultant: Con Oseguera MD Creatinine [Mass/Vol] 1.02 mg/dL Normal 0.70-1.20 [facility] Comment on above: Performed By: #### B MP #### [facility] [address] [place] [address] Loans Consultant: Con Oseguera MD GFR, Amer >60 Normal >60 [facility] Comment on above: Performed By: #### B MP #### [facility] [address] [place] [address] Loans Consultant: Con Oseguera MD GFR,non Amer >60 Normal >60 [facility] Comment on above: Performed By: #### B MP #### [facility] [address] [place] [address] Loans Consultant: Con Oseguera MD Glucose [Mass/Vol] 151 mg/dL High 70-99 [facility] Comment on above: Performed By: #### B MP #### [facility] [address] [place] [address] Loans Consultant: Con Oseguera MD Potassium [Moles/Vol] 4.0 mmol/L Normal 3.7-5.3 [facility] Comment on above: Performed By: #### B MP #### [facility] [address] [place] [address] Loans Consultant: Con Oseguera MD Sodium [Moles/Vol] 135 mmol/L Normal 135-144 [facility] Comment on above: Performed By: #### B MP #### [facility] [address] [place] [address] Loans Consultant: Con Oseguera MD Urea nitrogen [Mass/Vol] 22 mg/dL Normal 8-23 [facility] Comment on above: Performed By: #### B MP #### [facility] [address] [place] [address] Loans Consultant: Con Oseguera MD BUN/CRE Ratio NOT REPORTED Normal 9-20 [facility] Comment on above: Performed By: #### B MP #### [facility] [address] [place] [address] Loans Consultant: Con Oseguera MD Staging: NOT REPORTED Normal [facility] Comment on above: Performed By: #### B MP #### [facility] [address] [place] [address] Loans Consultant: Con Oseguera MD CBC with Diffon 12-11-2018 Abs. Basophil 0.00 k/uL Normal 0.0-0.2 [facility] Comment on above: Performed By: #### B MP #### [facility] [address] [place] [address] Loans Consultant: Con Oseguera MD Abs.Neutrophil (Seg) 9.27 k/uL High 1.3-9.1 [facility] Comment on above: Performed By: #### B MP #### [facility] [address] [place] [address] Loans Consultant: Con Oseguera MD Basophils/100 WBC (Bld) 0 % Normal 0-2 [facility] Comment on above: Performed By: #### B MP #### [facility] [address] [place] [address] Loans Consultant: Con Oseguera MD Eosinophils (Bld) [#/Vol] 0.12 10*3/uL Normal 0.0-0.4 [facility] Comment on above: Performed By: #### B MP #### [facility] [address] [place] [address] Loans Consultant: Con Oseguera MD Eosinophils/100 WBC (Bld) 1 % Normal 0-4 [facility] Comment on above: Performed By: #### B MP #### [facility] [address] [place] [address] Loans Consultant: Con Oseguera MD Lymphocytes (Bld) [#/Vol] 1.22 10*3/uL Normal 1.0-4.8 [facility] Comment on above: Performed By: #### B MP #### [facility] [address] [place] [address] Loans Consultant: Con Oseguera MD Lymphocytes/100 WBC (Bld) 10 % Low 24-44 [facility] Comment on above: Performed By: #### B MP #### [facility] [address] [place] [address] Loans Consultant: Con Oseguera MD Monocytes (Bld) [#/Vol] 1.59 10*3/uL High 0.1-1.3 [facility] Comment on above: Performed By: #### B MP #### [facility] [place] [address] Loans Consultant: Con Oseguera MD Monocytes/100 WBC (Bld) 13 % High 1-7 [facility] Comment on above: Performed By: #### B MP #### [facility] [place] [address] Loans Consultant: Con Oseguera MD Morphology Theo (Bld) [Interp] ANISOCYTOSIS PRESENT Normal [facility] Comment on above: Result Comment: MICR OCYTOSIS PRESENT HYPOCHROMIA PRESENT 1+ POLYCHROMASIA 1+ ECHINOCYTES 1+ ELLIPTOCYTES Performed By: #### B MP #### [facility] [place] [address] Loans Consultant: Con Oseguera MD Neutrophil (Seg) 76 % High 36-66 [facility] Comment on above: Performed By: #### B MP #### [facility] [place] [address] Loans Consultant: Con Oseguera MD Erythrocyte distribution width (RBC) [Ratio] 18.7 % High 11.5-14.9 [facility] Comment on above: Performed By: #### B MP #### [facility] [place] [address] Loans Consultant: Con Oseguera MD Hematocrit (Bld) [Volume fraction] 26.2 % Low 41-53 [facility] Comment on above: Performed By: #### B MP #### [facility] [address] [place] [address] Loans Consultant: Con Oseguera MD Hemoglobin (Bld) [Mass/Vol] 8.1 g/dL Low 13.5-17.5 [facility] Comment on above: Performed By: #### B MP #### [facility] [place] [address] Loans Consultant: Con Oseguera MD MCH (RBC) [Entitic mass] 20.5 pg Low 26-34 [facility] Comment on above: Performed By: #### B MP #### [facility] [address] [place] [address]. [place] [address] Loans Consultant: Con Oseguera MD MCHC (RBC) [Mass/Vol] 30.9 g/dL Low 31-37 [facility] Comment on above: Performed By: #### B MP #### [facility] [place] [address] Loans Consultant: Con Oseguera MD MCV (RBC) [Entitic vol] 66.4 fL Low 80-100 [facility] Comment on above: Performed By: #### B MP #### [facility] [address] [place] [address]. [place] [address] Loans Consultant: Con Oseguera MD Platelet mean volume (Bld) [Entitic vol] 9.3 fL Normal 6.0-12.0 [facility] Comment on above: Performed By: #### B MP #### [facility] [place] [address] Loans Consultant: Cno Oseguera MD Platelets (Bld) [#/Vol] 234 10*3/uL Normal 150-450 [facility] Comment on above: Performed By: #### B MP #### [facility] [place] [address] Loans Consultant: Con Oseguera MD RBC (Bld) [#/Vol] 3.94 10*6/uL Low 4.5-5.9 [facility] Comment on above: Performed By: #### B MP #### [facility] [address] [place] [address] Loans Consultant: Con Oseguera MD WBC (Bld) [#/Vol] 12.2 10*3/uL High 3.5-11.0 [facility] Comment on above: Performed By: #### B MP #### [facility] [place] [address] Loans Consultant: Con Oseguera MD Abs.Imm.Granulocyte NOT REPORTED Normal 0.00-0.30 [facility] Comment on above: Performed By: #### B MP #### [facility] [place] [address] Loans Consultant: Con Oseguera MD Auto Diff Performed NOT REPORTED Normal [facility] Comment on above: Performed By: #### B MP #### [facility] [place] [address] Loans Consultant: Con Oseguera MD Immature granulocytes (Bld) [#/Vol] NOT REPORTED Normal 0 [facility] Comment on above: Performed By: #### B MP #### [facility] [place] [address] Loans Consultant: Con Oseguera MD NRBC Automated NOT REPORTED Normal [facility] Comment on above: Performed By: #### B MP #### [facility] [place] [address] Loans Consultant: Con Oseguera MD Platelets (Bld) [#/Vol] NOT REPORTED Normal [facility] Comment on above: Performed By: #### B MP #### [facility] [address] [facility] [place] [address] Loans Consultant: Con Oseguera MD RBC morphology finding Nom (Bld) NOT REPORTED Normal [facility] Comment on above: Performed By: #### B MP #### [facility] [address] [facility] [place] [address] Loans Consultant: Con Oseguera MD WBC Morphology NOT REPORTED Normal [facility] Comment on above: Performed By: #### B MP #### [facility] [address] [facility] [place] [address] Loans Consultant: Con Oseguera MD Brain Natri. Peptideon 12-10 Natriuretic peptide B (Bld) [Mass/Vol] 1543 pg/mL High <300 [facility] Comment on above: Result Comment: Pro- BNP results cannot be compared to BNP results. Performed By: #### R EJEC, LIP, TROPI, CP, DIGC, BNP ####[facility] [address] [facility] [place] [address] [facility] Director: Con Oseguera MD Natriuretic peptide B (Bld) [Mass/Vol] Pro-BNP Reference Range: Normal [facility] Comment on above: Result Comment: Rule Out: <300 Miranda Zone: Age <50 300-450 Age 50-75 300-900 Age >75 300-1800 Usually represents mild to moderate HF but other cardiopulmonary causes cannot be ruled out. Rule In: Age <50 >450 Age 50-75 >900 Age >75 >1800 Performed By: #### R EJEC, LIP, TROPI, CP, DIGC, BNP ####[facility] [address] [facility] [place] [address] Lab Director: Con Oseguera MD CBC with Diffon 12-10-2018 Abs. Basophil 0.00 k/uL Normal 0.0-0.2 [facility] Comment on above: Performed By: #### P T, CDP ####[facility] [address] [place] [address] Lab Director: Con Oseguera MD Abs.Neutrophil (Seg) 10.73 k/uL High 1.3-9.1 [facility] Comment on above: Performed By: #### P T, CDP ####[facility] [address], [place] [phone] Director: Con Oseguera MD Basophils/100 WBC (Bld) 0 % Normal 0-2 [facility] Comment on above: Performed By: #### P T, CDP ####[facility] [address], [place] [phone] Director: Con Oseguera MD Eosinophils (Bld) [#/Vol] 0.13 10*3/uL Normal 0.0-0.4 [facility] Comment on above: Performed By: #### P T, CDP ####[facility] [address], [place] [phone] Director: Con Oseguera MD Eosinophils/100 WBC (Bld) 1 % Normal 0-4 [facility] Comment on above: Performed By: #### P T, CDP ####[facility] [address], [place] [address])[phone] Director: Con Oseguera MD Lymphocytes (Bld) [#/Vol] 1.07 10*3/uL Normal 1.0-4.8 [facility] Comment on above: Performed By: #### P T, CDP ####[facility] [address], [place] [phone] Director: Con Oseguera MD Lymphocytes/100 WBC (Bld) 8 % Low 24-44 [facility] Comment on above: Performed By: #### P T, CDP ####[facility] [address] [place] [address] Lab Director: Con Oseguera MD Monocytes (Bld) [#/Vol] 1.47 10*3/uL High 0.1-1.3 [facility] Comment on above: Performed By: #### P T, CDP ####[facility] [address], [place] [phone] Director: Con Oseguera MD Monocytes/100 WBC (Bld) 11 % High 1-7 [facility] Comment on above: Performed By: #### P T, CDP ####[facility] [address] [place] [address] Lab Director: Con Oseguera MD Morphology Theo (Bld) [Interp] ANISOCYTOSIS PRESENT Normal [facility] Comment on above: Result Comment: HYPO CHROMIA PRESENT MICROCYTOSIS PRESENT 1+ ELLIPTOCYTES FEW ECHINOCYTES Performed By: #### P T, CDP ####[facility] [address], [place] [phone] Director: Con Oseguera MD Neutrophil (Seg) 80 % High 36-66 [facility] Comment on above: Performed By: #### P T, CDP ####[facility] [address] [place] [address] Lab Director: Con Oseguera MD Erythrocyte distribution width (RBC) [Ratio] 19.0 % High 11.5-14.9 [facility] Comment on above: Performed By: #### P T, CDP ####[facility] [address], [place] [phone] Director: Con Oseguera MD Hematocrit (Bld) [Volume fraction] 28.3 % Low 41-53 [facility] Comment on above: Performed By: #### P T, CDP ####[facility] [address] [place] [address] Lab Director: Con Oseguera MD Hemoglobin (Bld) [Mass/Vol] 8.7 g/dL Low 13.5-17.5 [facility] Comment on above: Performed By: #### P T, CDP ####[facility] [address] [facility] [place] [address] Lab Director: Con Oseguera MD MCH (RBC) [Entitic mass] 20.6 pg Low 26-34 [facility] Comment on above: Performed By: #### P T, CDP ####[facility] [address] [facility] [address], [place] [phone] Director: Con Oseguera MD MCHC (RBC) [Mass/Vol] 30.7 g/dL Low 31-37 [facility] Comment on above: Performed By: #### P T, CDP ####[facility] [address] [facility] [place] [address] Lab Director: Con Oseguera MD MCV (RBC) [Entitic vol] 67.1 fL Low 80-100 [facility] Comment on above: Performed By: #### P T, CDP ####[facility] [facility] [id number] [facility] [address], [place] [phone] Director: Con Oseguera MD Platelet mean volume (Bld) [Entitic vol] 9.0 fL Normal 6.0-12.0 [facility] Comment on above: Performed By: #### P T, CDP ####[facility] Rge[address] [facility] [address], [place] [phone] Director: Con Oseguera MD Platelets (Bld) [#/Vol] 249 10*3/uL Normal 150-450 [facility] Comment on above: Performed By: #### P T, CDP ####[facility] Mzw[address] [facility] [place] [address] Lab Director: Con Oseguera MD RBC (Bld) [#/Vol] 4.22 10*6/uL Low 4.5-5.9 [facility] Comment on above: Performed By: #### P T, CDP ####[facility] [address] [place] [address] Lab Director: Con Oseguera MD WBC (Bld) [#/Vol] 13.4 10*3/uL High 3.5-11.0 [facility] Comment on above: Performed By: #### P T, CDP ####[facility] Nrf[address] [facility] [address], [place] [phone] Director: Con Oseguera MD Abs.Imm.Granulocyte NOT REPORTED Normal 0.00-0.30 [facility] Comment on above: Performed By: #### P T, CDP ####[facility] [address], [place], [place] [phone] Director: Con Oseguera MD Auto Diff Performed NOT REPORTED Normal [facility] Comment on above: Performed By: #### P T, CDP ####[facility] [address], [place] [address] Lab Director: Con Oseguera MD Immature granulocytes (Bld) [#/Vol] NOT REPORTED Normal 0 [facility] Comment on above: Performed By: #### P T, CDP ####[facility] [address], [place] [address] Lab Director: Con Oseguera MD NRBC Automated NOT REPORTED Normal [facility] Comment on above: Performed By: #### P T, CDP ####[facility] [address], [place], [place] [phone] Director: Con Oseguera MD Platelets (Bld) [#/Vol] NOT REPORTED Normal [facility] Comment on above: Performed By: #### P T, CDP ####[facility] [address] [place] [address] Lab Director: Con Oseguera MD RBC morphology finding Nom (Bld) NOT REPORTED Normal [facility] Comment on above: Performed By: #### P T, CDP ####[facility] [address] [place] [address] Lab Director: Con Oseguera MD WBC Morphology NOT REPORTED Normal [facility] Comment on above: Performed By: #### P T, CDP ####[facility] [address] [place] [address] lab Director: Con Oseguera MD CT ABDOMEN [...] involving the lung bases with areas of atelectasis/scarring . Trace pleural effusions. No pericardial effusion. Organs: [...] bladder. Diverticulosis of the urinary bladder wall. Peritoneum/Retroperi toneum: No free air. No free fluid. No [...] Sawyer Jr., DO 12/10/18 Final result Normal [facility] Comp Metabolic Profon 2018 (cont.) Normal [facility] Comment on above: Result Comment: Aver age GFR for 70 or more years old: 75 mL/min/1.73sq m Chronic Kidney Disease: <60 mL/min/1.73sq m Kidney failure: <15 mL/min/1.73sq m eGFR calculated using average adult body mass. Additional eGFR calculator available at: http://www.CloudPay.net.Re5ult/multiple_crcl_2012.htm Performed By: #### R EJEC, LIP, TROPI, CP, DIGC, BNP ####[facility] Urb[address] [facility] [place] [address] Lab Director: Con Oseguera MD Alkaline Phos 125 U/L Normal 40-129 [facility] Comment on above: Result Comment: SPEC IMEN SLIGHTLY HEMOLYZED, RESULTS MAY BE ADVERSELY AFFECTED. Performed By: #### R EJEC, LIP, TROPI, CP, DIGC, BNP ####[facility] [address], [place] [address] lab Director: Con Oseguera MD ALT [Catalytic activity/Vol] 15 U/L Normal 5-41 [facility] Comment on above: Result Comment: SPEC IMEN SLIGHTLY HEMOLYZED, RESULTS MAY BE ADVERSELY AFFECTED. Performed By: #### R EJEC, LIP, TROPI, CP, DIGC, BNP ####[facility] [address], [place] [address] Lab Director: Con Oseguera MD Anion gap [Moles/Vol] 17 mmol/L Normal 9-17 [facility] Comment on above: Performed By: #### R EJEC, LIP, TROPI, CP, DIGC, BNP ####[facility] [address] [facility] [place] [address] Lab Director: Con Oseguera MD AST [Catalytic activity/Vol] 28 U/L Normal <40 [facility] Comment on above: Result Comment: SPEC IMEN SLIGHTLY HEMOLYZED, RESULTS MAY BE ADVERSELY AFFECTED. Performed By: #### R EJEC, LIP, TROPI, CP, DIGC, BNP ####[facility] Jyp[address] [facility] [place] [address] Lab Director: Con Oseguera MD Bilirubin Ql (U) 0.51 mg/dL Normal 0.3-1.2 [facility] Comment on above: Result Comment: SPEC IMEN SLIGHTLY HEMOLYZED, RESULTS MAY BE ADVERSELY AFFECTED. Performed By: #### R EJEC, LIP, TROPI, CP, DIGC, BNP ####[facility] [address] [facility] [place] [address] Lab Director: Con Oseguera MD Calcium [Mass/Vol] 9.1 mg/dL Normal 8.6-10.4 [facility] Comment on above: Result Comment: SPEC IMEN SLIGHTLY HEMOLYZED, RESULTS MAY BE ADVERSELY AFFECTED. Performed By: #### R EJEC, LIP, TROPI, CP, DIGC, BNP ####[facility] [address], [place] [address] Lab Director: Con Oseguera MD GFR, Amer >60 Normal >60 [facility] Comment on above: Performed By: #### R EJEC, LIP, TROPI, CP, DIGC, BNP ####[facility] [address] [place] [address] Lab Director: Con Oseguera MD GFR,non Amer >60 Normal >60 [facility] Comment on above: Performed By: #### R EJEC, LIP, TROPI, CP, DIGC, BNP ####[facility] [address] [place] [address] Lab Director: Con Oseguera MD Potassium [Moles/Vol] 4.8 mmol/L Normal 3.7-5.3 [facility] Comment on above: Result Comment: SPEC IMEN SLIGHTLY HEMOLYZED, RESULTS MAY BE ADVERSELY AFFECTED. Performed By: #### R EJEC, LIP, TROPI, CP, DIGC, BNP ####[facility] [address], [place] [address] Lab Director: Con Oseguera MD Protein [Mass/Vol] 6.9 g/dL Normal 6.4-8.3 [facility] Comment on above: Result Comment: SPEC IMEN SLIGHTLY HEMOLYZED, RESULTS MAY BE ADVERSELY AFFECTED. Performed By: #### R EJEC, LIP, TROPI, CP, DIGC, BNP ####[facility] [address], [place] [address] Lab Director: Con Oseguera MD Sodium [Moles/Vol] 134 mmol/L Low 135-144 [facility] Comment on above: Result Comment: SPEC IMEN SLIGHTLY HEMOLYZED, RESULTS MAY BE ADVERSELY AFFECTED. Performed By: #### R EJEC, LIP, TROPI, CP, DIGC, BNP ####[facility] [address] [place] [address] Lab Director: Con Oseguera MD Albumin [Mass/Vol] 4.1 g/dL Normal 3.5-5.2 [facility] Comment on above: Performed By: #### R EJEC, LIP, TROPI, CP, DIGC, BNP ####[facility] [address] [place] [address] lab Director: Con Oseguera MD Chloride [Moles/Vol] 99 mmol/L Normal 98-107 [facility] Comment on above: Performed By: #### R EJEC, LIP, TROPI, CP, DIGC, BNP ####[facility] [address] [place] [address] lab Director: Con Oseguera MD CO2 [Moles/Vol] 18 mmol/L Low 20-31 [facility] Comment on above: Performed By: #### R EJEC, LIP, TROPI, CP, DIGC, BNP ####[facility] [address] [place] [address] Lab Director: Con Oseguera MD Creatinine [Mass/Vol] 0.98 mg/dL Normal 0.70-1.20 [facility] Comment on above: Performed By: #### R EJEC, LIP, TROPI, CP, DIGC, BNP ####[facility] [address] [place] [address] lab Director: Con Oseguera MD Glucose [Mass/Vol] 148 mg/dL High 70-99 [facility] Comment on above: Performed By: #### R EJEC, LIP, TROPI, CP, DIGC, BNP ####[facility] [address] [place] [address] lab Director: Con Oseguera MD Urea nitrogen [Mass/Vol] 24 mg/dL High 8-23 [facility] Comment on above: Performed By: #### R EJEC, LIP, TROPI, CP, DIGC, BNP ####[facility] [address] [place] [address] Lab Director: Con Oseguera MD Albumin/Globulin [Mass ratio] NOT REPORTED Normal 1.0-2.5 [facility] Comment on above: Performed By: #### R EJEC, LIP, TROPI, CP, DIGC, BNP ####[facility] [address] [place] [address] lab Director: Con Oseguera MD BUN/CRE Ratio NOT REPORTED Normal 9-20 [facility] Comment on above: Performed By: #### R EJEC, LIP, TROPI, CP, DIGC, BNP ####[facility] [address], [place] [address] lab Director: Con Oseguera MD Staging: NOT REPORTED Normal [facility] Comment on above: Performed By: #### R EJEC, LIP, TROPI, CP, DIGC, BNP ####[facility] [address] [place] [address] lab Director: Con Oseguera MD Digoxinon 12-10-2018 Digoxin [Mass/Vol] ng/mL Low 0.5-2.0 [facility] Comment on above: Result Comment: Digoxin Reference Range: Heart Failure 0.5-0.9 Atrial Fibrillation 0.8-2.0 Performed By: #### R EJEC, LIP, TROPI, CP, DIGC, BNP ####[facility] [address] [place] [address] Lab Director: Con Oseguera MD Digoxin [Mass/Vol] UNKNOWN Normal [facility] Comment on above: Performed By: #### R EJEC, LIP, TROPI, CP, DIGC, BNP ####[facility] [address] [place] [address] lab Director: Con Oseguera MD Lipaseon 12-10-2018 Lipase [Catalytic activity/Vol] 48 U/L Normal 13-60 [facility] Comment on above: Result Comment: SPEC IMEN SLIGHTLY HEMOLYZED, RESULTS MAY BE ADVERSELY AFFECTED. Performed By: #### B MP #### [facility] [address] [place] [address] Loans Consultant: Con Oseguera MD PTon 12-10-2018 INR Coag (PPP) [Relative time] 1.3 {INR} Normal [facility] Comment on above: Result Comment: Non-therapeutic Range: INR = 0.9-1.2 Therapeutic Range: Moderate Anticoagulant Intensity: INR = 2.0-3.0 High Anticoagulant Intensity: INR = 2.5-3.5 Performed By: #### P T, CDP ####[facility] [address] [place] [address] Lab Director: Con Oseguera MD PT Coag (PPP) [Time] 16.5 s High 11.8-14.6 [facility] Comment on above: Performed By: #### P T, CDP ####[facility] [address] [place] [address] Lab Director: Con Oseguera MD Specimen Rejectionon 019 Reason for rejection Unable to perform testing: Specimen clotted. Normal [facility] Comment on above: Performed By: #### B MP #### [facility] [address] [place] [address] Loans Consultant: Con Oseguera MD Source of sample .BLOOD Normal [facility] Comment on above: Performed By: #### B MP #### [facility] [address] [place] [address] Loans Consultant: Con Oseguera MD Test ordered CDP Normal [facility] Comment on above: Performed By: #### B MP #### [facility] [address] [place] [address] Loans Consultant: Con Oseguera MD ----- NOT REPORTED Normal [facility] Comment on above: Performed By: #### B MP #### [facility] [address] [facility] [place] [address] Loans Consultant: Con Oseguera MD Troponinon 12-10-2018 Troponin I.cardiac [Mass/Vol] 28 ng/L High 0-22 [facility] Comment on above: Result Comment: High Sensitivity Troponin values cannot be compared with other Troponin methodologies. Patients with high levels of Biotin oral intake (i.e >5mg/day) may have falsely decreased Troponin levels. Samples collected within 8 hours of biotin intake may require additional information for diagnosis. Performed By: #### T ROPI ####[facility] [address] [facility] [place] [address] Lab Director: Con Oseguera MD Troponin I.cardiac [Mass/Vol] NOT REPORTED Normal [facility] Comment on above: Performed By: #### T ROPI ####[facility] K[address] [facility] [place] [address] Lab Director: Con Oseguera MD Troponin I.cardiac [Mass/Vol] 30 ng/L High 0-22 [facility] Comment on above: Result Comment: [...] R EJEC, LIP, TROPI, CP, DIGC, BNP ####[facility] Eym[address] [facility] [place] [address] Lab Director: Con Oseguera MD Troponin I.cardiac [Mass/Vol] NOT REPORTED Normal [facility] Comment on above: Performed By: #### R EJEC, LIP, TROPI, CP, DIGC, BNP ####[facility] S[address] [place] [address] Lab Director: Con Oseguera MD Urinalysis, Routineon 2018 Acetoacetic Acid,Ur Negative Normal NEG [facility] Comment on above: Performed By: #### U A ####[facility] Ztk[address] [place] [address] Lab Director: Con Oseguera MD Bilirubin, SemiQt,Ur Negative Normal NEG [facility] Comment on above: Performed By: #### U A ####[facility] [address] [place] [address] Lab Director: Con Oseguera MD Color (U) YELLOW Normal YEL [facility] Comment on above: Performed By: #### U A ####[facility] [address] [place] [address] Lab Director: Con Oseguera MD Comment Microscopic exam not performed based on chemical results unless requested in Normal [facility] Comment on above: Result Comment: orig inal order. Performed By: #### U A ####[facility] [address] [place] [address] [phone] Director: Con Oseguera MD Glucose Ql (U) Negative Normal NEG [facility] Comment on above: Performed By: #### U A ####[facility] [address] [place] [address] Lab Director: Con Oseguera MD Hemoglobin, Ur Negative Normal NEG [facility] Comment on above: Performed By: #### U A ####[facility] [address] [place] [address] Lab Director: Con Oseguera MD Leukocyte esterase Test strip Ql (U) Negative Normal NEG [facility] Comment on above: Performed By: #### U A ####[facility] [address] [place] [address] [place] [address] [facility] Director: Con Oseguera MD Nitrite,Ur Negative Normal NEG [facility] Comment on above: Performed By: #### U A ####[facility] [address] [place] [address] [facility] Director: Con Oseguera MD pH (U) 5.0 [pH] Normal 5.0-8.0 [facility] Comment on above: Performed By: #### U A ####[facility] [address] [facility] [place] [address] lab Director: Con Oseguera MD Protein Ql (U) Negative Normal NEG [facility] Comment on above: Performed By: #### U A ####[address] [address] [facility] Director: Con Oseguera MD Specific gravity (U) [Rel density] 1.013 Normal 1.000-1.030 [facility] Comment on above: Performed By: #### U A ####[facility] Nng[address] [facility] [place] [address] lab Director: Con Oseguera MD Turbidity CLEAR Normal CLEAR [facility] Comment on above: Performed By: #### U A ####[facility] [address] [place] [address].[place] [address] [facility] Director: Con Oseguera MD Urobilinogen,Ur Normal Normal NORM [facility] Comment on above: Performed By: #### U A ####[address] [address] [facility] Director: Con Oseguera MD XR CHEST (2 [...] Sawyer Jr., DO 12/10/18 Final result Normal [facility] Basic Metabolic Profon 11-03 (cont.) Normal [facility] Comment on above: Result Comment: Aver age GFR for 70 or more years old: 75 mL/min/1.73sq m Chronic Kidney Disease: <60 mL/min/1.73sq m Kidney failure: <15 mL/min/1.73sq m eGFR calculated using average adult body mass. Additional eGFR calculator available at: http://www.StyleShare/multiple_crcl_2012.htm Performed By: #### B MP #### [facility] [address], [place] [address] Loans Consultant: Con Oseguera MD Anion gap [Moles/Vol] 15 mmol/L Normal 9-17 [facility] Comment on above: Performed By: #### B MP #### [facility] [address] [facility] [place] [address] Loans Consultant: Con Oseguera MD Calcium [Mass/Vol] 8.9 mg/dL Normal 8.6-10.4 [facility] Comment on above: Performed By: #### B MP #### [facility] [address], [place] [address] Loans Consultant: Con Oseguera MD Chloride [Moles/Vol] 100 mmol/L Normal 98-107 [facility] Comment on above: Performed By: #### B MP #### [facility] [address], [place] [address] Loans Consultant: Con Oseguera MD CO2 [Moles/Vol] 21 mmol/L Normal 20-31 [facility] Comment on above: Performed By: #### B MP #### [facility] [address] [place] [address] Loans Consultant: Con Oseguera MD Creatinine [Mass/Vol] 1.17 mg/dL Normal 0.70-1.20 [facility] Comment on above: Performed By: #### B MP #### [facility] [address] [place] [address] Loans Consultant: Con Oseguera MD GFR, Amer >60 Normal >60 [facility] Comment on above: Performed By: #### B MP #### [facility] [address] [place] [address] Loans Consultant: Con Oseguera MD GFR,non Amer 60 mL/min Low >60 [facility] Comment on above: Performed By: #### B MP #### [facility] [address] [place] [address] Loans Consultant: Con Oseguera MD Glucose [Mass/Vol] 231 mg/dL High 70-99 [facility] Comment on above: Performed By: #### B MP #### [facility] [address] [place] [address] Loans Consultant: Con Oseguera MD Potassium [Moles/Vol] 4.0 mmol/L Normal 3.7-5.3 [facility] Comment on above: Performed By: #### B MP #### [facility] [address] [place] [address] Loans Consultant: Con Oseguera MD Sodium [Moles/Vol] 136 mmol/L Normal 135-144 [facility] Comment on above: Performed By: #### B MP #### [facility] [address] [place] [address] Loans Consultant: Con Oseguera MD Urea nitrogen [Mass/Vol] 27 mg/dL High - [facility] Comment on above: Performed By: #### B MP #### [facility] [address] [place] [address] Loans Consultant: Con Oseguera MD BUN/CRE Ratio NOT REPORTED Normal - [facility] Comment on above: Performed By: #### B MP #### [facility] [address] [place] [address] Loans Consultant: Con Oseguera MD Staging: NOT REPORTED Normal [facility] Comment on above: Performed By: #### B MP #### [facility] [address] [place] [address] Loans Consultant: Con Oseguera MD T3, Freeon 11-03-2018 Free T3 [Mass/Vol] 2.64 pg/mL Normal 2.02-4.43 [facility] Comment on above: Performed By: #### B MP #### [facility] [place] [address] Loans Consultant: Con Oseguera MD Thyroid Stim. Horm.on 2018 TSH Qn 5.66 m[IU]/L High 0.30-5.00 [facility] Comment on above: Performed By: #### B MP #### [facility] [address] [place] [address] Loans Consultant: Con Oseguera MD Thyroxine, Freeon 11-03-2018 Thyroxine, Free 0.92 ng/dL Low 0.93-1.70 [facility] Comment on above: Performed By: #### B MP #### [facility] [address] [place] [address] Loans Consultant: Con Oseguera MD Basic Metabolic Profon 10-23 (cont.) Normal [facility] Comment on above: Result Comment: Aver age GFR for 70 or more years old: 75 mL/min/1.73sq m Chronic Kidney Disease: <60 mL/min/1.73sq m Kidney failure: <15 mL/min/1.73sq m eGFR calculated using average adult body mass. Additional eGFR calculator available at: http://www.StyleShare/multiple_crcl_2012.htm Performed By: #### B MP #### [facility] [address] [place] [address] Loans Consultant: Con Oseguera MD Anion gap [Moles/Vol] 14 mmol/L Normal 9-17 [facility] Comment on above: Performed By: #### B MP #### [facility] [place] [address] Loans Consultant: Con Oseguera MD Calcium [Mass/Vol] 9.3 mg/dL Normal 8.6-10.4 [facility] Comment on above: Performed By: #### B MP #### [facility] [place] [address] Loans Consultant: Con Oseguera MD Chloride [Moles/Vol] 100 mmol/L Normal 98-107 [facility] Comment on above: Performed By: #### B MP #### [facility] [address] [place] [address] Loans Consultant: Con Oseguera MD CO2 [Moles/Vol] 22 mmol/L Normal 20-31 [facility] Comment on above: Performed By: #### B MP #### [facility] [address] [place] [address] Loans Consultant: Con Oseguera MD Creatinine [Mass/Vol] 2.03 mg/dL High 0.70-1.20 [facility] Comment on above: Performed By: #### B MP #### [facility] [address] [place] [address] Loans Consultant: Con Oseguera MD GFR, Amer 38 mL/min Low >60 [facility] Comment on above: Performed By: #### B MP #### [facility] [address] [place] [address] Loans Consultant: Con Oseguera MD GFR,non Amer 32 mL/min Low >60 [facility] Comment on above: Performed By: #### B MP #### [facility] [address] [place] [address] Loans Consultant: Con Oseguera MD Glucose [Mass/Vol] 286 mg/dL High 70-99 [facility] Comment on above: Performed By: #### B MP #### [facility] [address] [place] [address] Loans Consultant: Con Oseguera MD Potassium [Moles/Vol] 5.2 mmol/L Normal 3.7-5.3 [facility] Comment on above: Performed By: #### B MP #### [facility] [address] [place] [address] Loans Consultant: Con Oseguera MD Sodium [Moles/Vol] 136 mmol/L Normal 135-144 [facility] Comment on above: Performed By: #### B MP #### [facility] [place] [address] Loans Consultant: Con Oseguera MD Urea nitrogen [Mass/Vol] 51 mg/dL High 8-23 [facility] Comment on above: Performed By: #### B MP #### [facility] [address] [place] [address] Loans Consultant: Con Oseguera MD BUN/CRE Ratio NOT REPORTED Normal 9-20 [facility] Comment on above: Performed By: #### B MP #### [facility] [address] [place] [address] Loans Consultant: Con Oseguera MD Staging: NOT REPORTED Normal [facility] Comment on above: Performed By: #### B MP #### [facility] [place] [address] Loans Consultant: Con Oseguera MD CBC with Diffon 10-23-2018 Abs. Basophil 0.09 k/uL Normal 0.0-0.2 [facility] Comment on above: Performed By: #### B MP #### [facility] [place] [address] Loans Consultant: Con Oseguera MD Abs.Neutrophil (Seg) 6.45 k/uL Normal 1.3-9.1 [facility] Comment on above: Performed By: #### B MP #### [facility] [place] [address] Loans Consultant: Con Oseguera MD Basophils/100 WBC (Bld) 1 % Normal 0-2 [facility] Comment on above: Performed By: #### B MP #### [facility], [place] [address] Loans Consultant: Con Oseguera MD Eosinophils (Bld) [#/Vol] 0.17 10*3/uL Normal 0.0-0.4 [facility] Comment on above: Performed By: #### B MP #### [facility] [place] [address] Loans Consultant: Con Oseguera MD Eosinophils/100 WBC (Bld) 2 % Normal 0-4 [facility] Comment on above: Performed By: #### B MP #### [facility] [address] [place] [id number] Loans Consultant: Con Oseguera MD Lymphocytes (Bld) [#/Vol] 1.19 10*3/uL Normal 1.0-4.8 [facility] Comment on above: Performed By: #### B MP #### [facility] [address] [place] [address] Loans Consultant: Con Oseguera MD Lymphocytes/100 WBC (Bld) 14 % Low 24-44 [facility] Comment on above: Performed By: #### B MP #### [facility] [address] [place] [address] Loans Consultant: Con Oseguera MD Monocytes (Bld) [#/Vol] 0.60 10*3/uL Normal 0.1-1.3 [facility] Comment on above: Performed By: #### B MP #### [facility] [address] [place] [address] Loans Consultant: Con Oseguera MD Monocytes/100 WBC (Bld) 7 % Normal 1-7 [facility] Comment on above: Performed By: #### B MP #### [facility] [place] [address] Loans Consultant: Con Oseguera MD Morphology Theo (Bld) [Interp] ANISOCYTOSIS PRESENT Normal [facility] Comment on above: Result Comment: HYPO CHROMIA PRESENT MICROCYTOSIS PRESENT 1+ ELLIPTOCYTES 1+ ECHINOCYTES Performed By: #### B MP #### [facility] [address] [place] [address] Loans Consultant: Con Oseguera MD Neutrophil (Seg) 76 % High 36-66 [facility] Comment on above: Performed By: #### B MP #### [facility] [address] [place] [address] Loans Consultant: Con Oseguera MD Erythrocyte distribution width (RBC) [Ratio] 21.6 % High 11.5-14.9 [facility] Comment on above: Performed By: #### B MP #### [facility] [place] [address] Loans Consultant: Con Oseguera MD Hematocrit (Bld) [Volume fraction] 27.3 % Low 41-53 [facility] Comment on above: Performed By: #### B MP #### [facility] [place] [address] Loans Consultant: Con Oseguera MD Hemoglobin (Bld) [Mass/Vol] 8.5 g/dL Low 13.5-17.5 [facility] Comment on above: Performed By: #### B MP #### [facility] [place] [address] Loans Consultant: Con Oseguera MD MCH (RBC) [Entitic mass] 21.1 pg Low 26-34 [facility] Comment on above: Performed By: #### B MP #### [facility] [place] [address] Loans Consultant: Con Oseguera MD MCHC (RBC) [Mass/Vol] 30.9 g/dL Low 31-37 [facility] Comment on above: Performed By: #### B MP #### [facility] [address] [place] [address] Loans Consultant: Con Oseguera MD MCV (RBC) [Entitic vol] 68.3 fL Low 80-100 [facility] Comment on above: Performed By: #### B MP #### [facility] [place] [address] Loans Consultant: Con Oseguera MD Platelet mean volume (Bld) [Entitic vol] 9.5 fL Normal 6.0-12.0 [facility] Comment on above: Performed By: #### B MP #### [facility] [address] [place] [address] Loans Consultant: Con Oseguera MD Platelets (Bld) [#/Vol] 300 10*3/uL Normal 150-450 [facility] Comment on above: Performed By: #### B MP #### [facility] [address] [place] [address] Loans Consultant: Con Oseguera MD RBC (Bld) [#/Vol] 4.00 10*6/uL Low 4.5-5.9 [facility] Comment on above: Performed By: #### B MP #### [facility] [address] [place] [address] Loans Consultant: Con Oseguera MD WBC (Bld) [#/Vol] 8.5 10*3/uL Normal 3.5-11.0 [facility] Comment on above: Performed By: #### B MP #### [facility] [address] [place] [address] Loans Consultant: Con Oseguera MD Abs.Imm.Granulocyte NOT REPORTED Normal 0.00-0.30 [facility] Comment on above: Performed By: #### B MP #### [facility] [address] [place] [address] Loans Consultant: Con Oseguera MD Auto Diff Performed NOT REPORTED Normal [facility] Comment on above: Performed By: #### B MP #### [facility] [address] [place] [address] Loans Consultant: Con Oseguera MD Immature granulocytes (Bld) [#/Vol] NOT REPORTED Normal 0 [facility] Comment on above: Performed By: #### B MP #### [facility] [address] [facility] [place] [address] Loans Consultant: Con Oseguera MD NRBC Automated NOT REPORTED Normal [facility] Comment on above: Performed By: #### B MP #### [facility] [address] [facility] [place] [address] Loans Consultant: Con Oseguera MD Platelets (Bld) [#/Vol] NOT REPORTED Normal [facility] Comment on above: Performed By: #### B MP #### [facility] [address] [facility] [place] [address] Loans Consultant: Con Oseguera MD RBC morphology finding Nom (Bld) NOT REPORTED Normal [facility] Comment on above: Performed By: #### B MP #### [facility] [address] [facility] [place] [address] Loans Consultant: Con Oseguera MD WBC Morphology NOT REPORTED Normal [facility] Comment on above: Performed By: #### B MP #### [facility] [address] [facility] [place] [address] Loans Consultant: Con Oseguera MD Comp Metabolic Profon 2018 (cont.) Normal [facility] Comment on above: Result Comment: Aver age GFR for 70 or more years old: 75 mL/min/1.73sq m Chronic Kidney Disease: <60 mL/min/1.73sq m Kidney failure: <15 mL/min/1.73sq m eGFR calculated using average adult body mass. Additional eGFR calculator available at: http://www.CloudPay.net.Re5ult/multiple_crcl_2012.htm Performed By: #### C P, MG, CB, CDP #### [facility] [address] [facility] [place] [address] Loans Consultant: Con Oseguera MD Albumin [Mass/Vol] 3.9 g/dL Normal 3.5-5.2 [facility] Comment on above: Performed By: #### C P, MG, CB, CDP #### [facility] [address] [place] [address] Loans Consultant: Con Oseguera MD Alkaline Phos 90 U/L Normal 40-129 [facility] Comment on above: Performed By: #### C P, MG, CB, CDP #### [facility] [address] [place] [address] Loans Consultant: Cno Oseguera MD ALT [Catalytic activity/Vol] 18 U/L Normal 5-41 [facility] Comment on above: Performed By: #### C P, MG, CB, CDP #### [facility] [address] [place] [address] Loans Consultant: Con Oseguera MD Anion gap [Moles/Vol] 14 mmol/L Normal 9-17 [facility] Comment on above: Performed By: #### C P, MG, CB, CDP #### [facility] [address] [place] [address] Loans Consultant: Con Oseguera MD AST [Catalytic activity/Vol] 21 U/L Normal <40 [facility] Comment on above: Performed By: #### C P, MG, CB, CDP #### [facility] [address] [place] [address] Loans Consultant: Con Oseguera MD Bilirubin Ql (U) 0.34 mg/dL Normal 0.3-1.2 [facility] Comment on above: Performed By: #### C P, MG, CB, CDP #### [facility] [address] [place] [address] Loans Consultant: Con Oseguera MD Calcium [Mass/Vol] 9.3 mg/dL Normal 8.6-10.4 [facility] Comment on above: Performed By: #### C P, MG, CB, CDP #### [facility] [address] [place] [address] Loans Consultant: Con Oseguera MD Chloride [Moles/Vol] 100 mmol/L Normal 98-107 [facility] Comment on above: Performed By: #### C P, MG, CB, CDP #### [facility] [address] [place] [address] Loans Consultant: Con Oseguera MD CO2 [Moles/Vol] 22 mmol/L Normal 20-31 [facility] Comment on above: Performed By: #### C P, MG, CB, CDP #### [facility] [place] [address] Loans Consultant: Con Oseguera MD Creatinine [Mass/Vol] 2.03 mg/dL High 0.70-1.20 [facility] Comment on above: Performed By: #### C P, MG, CB, CDP #### [facility] [address] [place] [address] Loans Consultant: Con Oseguera MD GFR, Amer 38 mL/min Low >60 [facility] Comment on above: Performed By: #### C P, MG, CB, CDP #### [facility] [address] [place] [address] Loans Consultant: Con Oseguera MD GFR,non Amer 32 mL/min Low >60 [facility] Comment on above: Performed By: #### C P, MG, CB, CDP #### [facility] [address] [place] [address] Loans Consultant: Con Oseguera MD Glucose [Mass/Vol] 286 mg/dL High 70-99 [facility] Comment on above: Performed By: #### C P, MG, CB, CDP #### [facility] [address] [place] [address] Loans Consultant: Con Oseguera MD Potassium [Moles/Vol] 5.2 mmol/L Normal 3.7-5.3 [facility] Comment on above: Performed By: #### C P, MG, CB, CDP #### [facility] [address] [place] [address] Loans Consultant: Con Oseguera MD Protein [Mass/Vol] 6.6 g/dL Normal 6.4-8.3 [facility] Comment on above: Performed By: #### C P, MG, CB, CDP #### [facility] [place] [address] Loans Consultant: Con Oseguera MD Sodium [Moles/Vol] 136 mmol/L Normal 135-144 [facility] Comment on above: Performed By: #### C P, MG, CB, CDP #### [facility] [place] [address] Loans Consultant: Con Oseguera MD Urea nitrogen [Mass/Vol] 51 mg/dL High 8-23 [facility] Comment on above: Performed By: #### C P, MG, CB, CDP #### [facility] [place] [address] Loans Consultant: Cno Oseguera MD Albumin/Globulin [Mass ratio] NOT REPORTED Normal 1.0-2.5 [facility] Comment on above: Performed By: #### C P, MG, CB, CDP #### [facility] [place] [address] Loans Consultant: Con Oseguera MD BUN/CRE Ratio NOT REPORTED Normal 9-20 [facility] Comment on above: Performed By: #### C P, MG, CB, CDP #### [facility] [address] [place] [address] Loans Consultant: Con Oseguera MD Staging: NOT REPORTED Normal [facility] Comment on above: Performed By: #### C P, MG, CB, CDP #### [facility] [address] [place] [address] Loans Consultant: Con Oseguera MD Magnesiumon 10-23-2018 Magnesium [Mass/Vol] 2.3 mg/dL Normal 1.6-2.6 [facility] Comment on above: Performed By: #### B MP #### [facility] [address] [place] [address] Loans Consultant: Con Oseguera MD Phosphorus, Inorg.on 019 Phosphorus, Inorg. 4.8 mg/dL High 2.5-4.5 [facility] Comment on above: Performed By: #### B MP #### [facility] [place] [address] Loans Consultant: Con Oseguera MD Basic Metabolic Profon 10-12 (cont.) Normal [facility] Comment on above: Result Comment: Aver age GFR for 70 or more years old: 75 mL/min/1.73sq m Chronic Kidney Disease: <60 mL/min/1.73sq m Kidney failure: <15 mL/min/1.73sq m eGFR calculated using average adult body mass. Additional eGFR calculator available at: http://www.CloudPay.net.com/multiple_crcl_2012.htm Performed By: #### B MP #### [facility] [address] [place] [address] Loans Consultant: Con Oseguera MD Anion gap [Moles/Vol] 14 mmol/L Normal 9-17 [facility] Comment on above: Performed By: #### B MP #### [facility] [address] [place] [address] Loans Consultant: Con Oseguera MD Calcium [Mass/Vol] 9.6 mg/dL Normal 8.6-10.4 [facility] Comment on above: Performed By: #### B MP #### [facility] [address] [place] [address] Loans Consultant: Con Oseguera MD Chloride [Moles/Vol] 103 mmol/L Normal 98-107 [facility] Comment on above: Performed By: #### B MP #### [facility] [address] [place] [address] Loans Consultant: Con Oseguera MD CO2 [Moles/Vol] 21 mmol/L Normal 20-31 [facility] Comment on above: Performed By: #### B MP #### [facility] [address] [place] [address] Loans Consultant: Con Oseguera MD Creatinine [Mass/Vol] 1.52 mg/dL High 0.70-1.20 [facility] Comment on above: Performed By: #### B MP #### [facility] [address] [place] [address] Loans Consultant: Con Oseguera MD GFR, Amer 54 mL/min Low >60 [facility] Comment on above: Performed By: #### B MP #### [facility] [address] [place] [address] Loans Consultant: Con Oseguera MD GFR,non Amer 44 mL/min Low >60 [facility] Comment on above: Performed By: #### B MP #### [facility] [address] [place] [address] Loans Consultant: Con Oseguera MD Glucose [Mass/Vol] 219 mg/dL High 70-99 [facility] Comment on above: Performed By: #### B MP #### [facility] [address] [place] [address] Loans Consultant: Con Oseguera MD Potassium [Moles/Vol] 4.8 mmol/L Normal 3.7-5.3 [facility] Comment on above: Performed By: #### B MP #### [facility] [address] [place] [address] Loans Consultant: Con Oseguera MD Sodium [Moles/Vol] 138 mmol/L Normal 135-144 [facility] Comment on above: Performed By: #### B MP #### [facility] [place] [address] Loans Consultant: Con Oseguera MD Urea nitrogen [Mass/Vol] 48 mg/dL High 8-23 [facility] Comment on above: Performed By: #### B MP #### [facility] [place] [address] Loans Consultant: Con Oseguera MD BUN/CRE Ratio NOT REPORTED Normal 9-20 [facility] Comment on above: Performed By: #### B MP #### [facility] [place] [address] Loans Consultant: Con Oseguera MD Staging: NOT REPORTED Normal [facility] Comment on above: Performed By: #### B MP #### [facility] [place] [address] Loans Consultant: Con Oseguera MD Basic Metabolic Profon 09-28 (cont.) Normal [facility] Comment on above: Result Comment: Aver age GFR for 70 or more years old: 75 mL/min/1.73sq m Chronic Kidney Disease: <60 mL/min/1.73sq m Kidney failure: <15 mL/min/1.73sq m eGFR calculated using average adult body mass. Additional eGFR calculator available at: http://www.CloudPay.net.com/multiple_crcl_2012.htm Performed By: #### B MP #### [facility] [address] [place] [address] Loans Consultant: Con Oseguera MD Anion gap [Moles/Vol] 13 mmol/L Normal 9-17 [facility] Comment on above: Performed By: #### B MP #### [facility] [place] [address] Loans Consultant: Con Oseguera MD Calcium [Mass/Vol] 9.2 mg/dL Normal 8.6-10.4 [facility] Comment on above: Performed By: #### B MP #### [facility] [address] [place] [address] Loans Consultant: Con Oseguera MD Chloride [Moles/Vol] 100 mmol/L Normal 98-107 [facility] Comment on above: Performed By: #### B MP #### [facility] [place] [address] Loans Consultant: Con Oseguera MD CO2 [Moles/Vol] 24 mmol/L Normal 20-31 [facility] Comment on above: Performed By: #### B MP #### [facility] [place] [address] Loans Consultant: Con Oseguera MD Creatinine [Mass/Vol] 1.46 mg/dL High 0.70-1.20 [facility] Comment on above: Performed By: #### B MP #### [facility] [place] [address] Loans Consultant: Con Oseguera MD GFR, Amer 56 mL/min Low >60 [facility] Comment on above: Performed By: #### B MP #### [facility] [address] [place] [address] Loans Consultant: Con Oseguera MD GFR,non Amer 46 mL/min Low >60 [facility] Comment on above: Performed By: #### B MP #### [facility] [address] [place] [address] Loans Consultant: Con Oseguera MD Glucose [Mass/Vol] 269 mg/dL High 70-99 [facility] Comment on above: Performed By: #### B MP #### [facility] [place] [address] Loans Consultant: Con Oseguera MD Potassium [Moles/Vol] 4.7 mmol/L Normal 3.7-5.3 [facility] Comment on above: Performed By: #### B MP #### [facility] [place] [address] Loans Consultant: Con Oseguera MD Sodium [Moles/Vol] 137 mmol/L Normal 135-144 [facility] Comment on above: Performed By: #### B MP #### [facility] [place] [address] Loans Consultant: Con Oseguera MD Urea nitrogen [Mass/Vol] 41 mg/dL High 8-23 [facility] Comment on above: Performed By: #### B MP #### [facility] [place] [address] Loans Consultant: Con Oseguera MD BUN/CRE Ratio NOT REPORTED Normal 9-20 [facility] Comment on above: Performed By: #### B MP #### [facility] [address] [facility] [address] Loans Consultant: Con Oseguera MD Staging: NOT REPORTED Normal [facility] Comment on above: Performed By: #### B MP #### [facility] [address] [place] [address] Loans Consultant: Con Oseguera MD Basic Metabolic Profon 09-20 (cont.) Normal [facility] Comment on above: Result Comment: Aver age GFR for 70 or more years old: 75 mL/min/1.73sq m Chronic Kidney Disease: <60 mL/min/1.73sq m Kidney failure: <15 mL/min/1.73sq m eGFR calculated using average adult body mass. Additional eGFR calculator available at: http://www.StyleShare/multiple_crcl_2012.htm Performed By: #### H H, BMP #### [facility] [place] [address] Loans Consultant: Con Oseguera MD Anion gap [Moles/Vol] 14 mmol/L Normal 9-17 [facility] Comment on above: Performed By: #### H H, BMP #### [facility] [place] [address] Loans Consultant: Con Oseguera MD Calcium [Mass/Vol] 9.1 mg/dL Normal 8.6-10.4 [facility] Comment on above: Performed By: #### H H, BMP #### [facility] [address] [place] [address] Loans Consultant: Con Oseguera MD Chloride [Moles/Vol] 98 mmol/L Normal 98-107 [facility] Comment on above: Performed By: #### H H, BMP #### [facility] [address] [place] [address] Loans Consultant: Con Oseguera MD CO2 [Moles/Vol] 24 mmol/L Normal 20-31 [facility] Comment on above: Performed By: #### H H, BMP #### [facility] [address] [place] [address] Loans Consultant: Con Oseguera MD Creatinine [Mass/Vol] 1.48 mg/dL High 0.70-1.20 [facility] Comment on above: Performed By: #### H H, BMP #### [facility] [address] [place] [address] Loans Consultant: Con Oseguera MD GFR, Amer 55 mL/min Low >60 [facility] Comment on above: Performed By: #### H H, BMP #### [facility] [address] [place] [address] Loans Consultant: Con Oseguera MD GFR,non Amer 46 mL/min Low >60 [facility] Comment on above: Performed By: #### H H, BMP #### [facility] [address] [place] [address] Loans Consultant: Con Oseguera MD Glucose [Mass/Vol] 168 mg/dL High 70-99 [facility] Comment on above: Performed By: #### H H, BMP #### [facility] [place] [address] Loans Consultant: Con Oseguera MD Potassium [Moles/Vol] 4.6 mmol/L Normal 3.7-5.3 [facility] Comment on above: Performed By: #### H H, BMP #### [facility] [address] [place] [address] Loans Consultant: Con Oseguera MD Sodium [Moles/Vol] 136 mmol/L Normal 135-144 [facility] Comment on above: Performed By: #### H H, BMP #### [facility] [address] [place] [address] Loans Consultant: Con Oseguera MD Urea nitrogen [Mass/Vol] 34 mg/dL High 8- [facility] Comment on above: Performed By: #### H H, BMP #### [facility] [address] [place] [address] Loans Consultant: Con Oseguera MD BUN/CRE Ratio NOT REPORTED Normal - [facility] Comment on above: Performed By: #### H H, BMP #### [facility] [address] [place] [address] Loans Consultant: Con Oseguera MD Staging: NOT REPORTED Normal [facility] Comment on above: Performed By: #### H H, BMP #### [facility] [address] [place] [address] Loans Consultant: Con Oseguera MD Hgb/Hcton 09-20-2018 Hematocrit (Bld) [Volume fraction] 26.8 % Low 41-53 [facility] Comment on above: Performed By: #### H H, BMP #### [facility] [address] [place] [address] Loans Consultant: Con Oseguera MD Hemoglobin (Bld) [Mass/Vol] 8.3 g/dL Low 13.5-17.5 [facility] Comment on above: Performed By: #### H H, BMP #### [facility] [address] [place] [address] Loans Consultant: Con Oseguera MD Basic Metabolic Profon 09-07 (cont.) Normal [facility] Comment on above: Result Comment: Aver age GFR for 70 or more years old: 75 mL/min/1.73sq m Chronic Kidney Disease: <60 mL/min/1.73sq m Kidney failure: <15 mL/min/1.73sq m eGFR calculated using average adult body mass. Additional eGFR calculator available at: http://www.CloudPay.net.Re5ult/multiple_crcl_2012.htm Performed By: #### B MP #### [facility] [address] [place] [address] Loans Consultant: Con Oseguera MD Anion gap [Moles/Vol] 10 mmol/L Normal 9-17 [facility] Comment on above: Performed By: #### B MP #### [facility] [address] [place] [address] Loans Consultant: Con Oseguera MD Calcium [Mass/Vol] 9.1 mg/dL Normal 8.6-10.4 [facility] Comment on above: Performed By: #### B MP #### [facility] [place] [address] Loans Consultant: Con Oseguera MD Chloride [Moles/Vol] 103 mmol/L Normal 98-107 [facility] Comment on above: Performed By: #### B MP #### [facility] [place] [address] Loans Consultant: Con Oseguera MD CO2 [Moles/Vol] 25 mmol/L Normal 20-31 [facility] Comment on above: Performed By: #### B MP #### [facility] [place] [address] Loans Consultant: Con Oseguera MD Creatinine [Mass/Vol] 1.25 mg/dL High 0.70-1.20 [facility] Comment on above: Performed By: #### B MP #### [facility] [place] [address] Loans Consultant: Con Oseguera MD GFR, Amer >60 Normal >60 [facility] [facility] Comment on above: Performed By: #### B MP #### [facility] [address] [place] [address] Loans Consultant: Con Oseguera MD GFR,non Amer 55 mL/min Low >60 [facility] Comment on above: Performed By: #### B MP #### [facility] [address] [place] [address] Loans Consultant: Con Oseguera MD Glucose [Mass/Vol] 123 mg/dL High 70-99 [facility] Comment on above: Performed By: #### B MP #### [facility] [address] [place] [address] Loans Consultant: Con Oseguera MD Potassium [Moles/Vol] 4.7 mmol/L Normal 3.7-5.3 [facility] Comment on above: Performed By: #### B MP #### [facility] [address] [place] [address] Loans Consultant: Con Oseguera MD Sodium [Moles/Vol] 138 mmol/L Normal 135-144 [facility] Comment on above: Performed By: #### B MP #### [facility] [address] [place] [address] Loans Consultant: Con Oseguera MD Urea nitrogen [Mass/Vol] 28 mg/dL High 8-23 [facility] Comment on above: Performed By: #### B MP #### [facility] [address] [place] [address] Loans Consultant: Con Oseguera MD BUN/CRE Ratio NOT REPORTED Normal 9-20 [facility] Comment on above: Performed By: #### B MP #### [facility] [address] [place] [address] Loans Consultant: Con Oseguera MD Staging: NOT REPORTED Normal [facility] Comment on above: Performed By: #### B MP #### [facility] [address] [place] [address] Loans Consultant: Con Oseguera MD Basic Metabolic Profon 08-31 (cont.) Normal [facility] Comment on above: Result Comment: Aver age GFR for 70 or more years old: 75 mL/min/1.73sq m Chronic Kidney Disease: <60 mL/min/1.73sq m Kidney failure: <15 mL/min/1.73sq m eGFR calculated using average adult body mass. Additional eGFR calculator available at: http://www.StyleShare/multiple_crcl_2011.htm Performed By: #### B MP #### [facility] [address] [facility] [place] [address] Loans Consultant: Con Oseguera MD Anion gap [Moles/Vol] 11 mmol/L Normal 9-17 [facility] Comment on above: Performed By: #### B MP #### [facility] [address] [facility] [place] [address] Loans Consultant: Con Oseguera MD Calcium [Mass/Vol] 9.4 mg/dL Normal 8.6-10.4 [facility] Comment on above: Performed By: #### B MP #### [facility] [address] [facility] [place] [address] Loans Consultant: Con Oseguera MD Chloride [Moles/Vol] 100 mmol/L Normal 98-107 [facility] Comment on above: Performed By: #### B MP #### [facility] [facility] [place] [address] Loans Consultant: Con Oseguera MD CO2 [Moles/Vol] 24 mmol/L Normal 20-31 [facility] Comment on above: Performed By: #### B MP #### [facility] [address] [place] [address] Loans Consultant: Con Oseguera MD Creatinine [Mass/Vol] 1.35 mg/dL High 0.70-1.20 [facility] Comment on above: Performed By: #### B MP #### [facility] [address] [place] [address] Loans Consultant: Con Oseguera MD GFR, Amer >60 Normal >60 [facility] Comment on above: Performed By: #### B MP #### [facility] [address] [place] [address] Loans Consultant: Con Oseguera MD GFR,non Amer 51 mL/min Low >60 [facility] Comment on above: Performed By: #### B MP #### [facility] [address] [place] [address] Loans Consultant: Con Oseguera MD Glucose [Mass/Vol] 133 mg/dL High 70-99 [facility] Comment on above: Performed By: #### B MP #### [facility] [address] [place] [address] Loans Consultant: Con Oseguera MD Potassium [Moles/Vol] 4.8 mmol/L Normal 3.7-5.3 [facility] Comment on above: Performed By: #### B MP #### [facility] [address] [place] [address] Loans Consultant: Con Oseguera MD Sodium [Moles/Vol] 135 mmol/L Normal 135-144 [facility] Comment on above: Performed By: #### B MP #### [facility] [address] [place] [address] Loans Consultant: Con Oseguera MD Urea nitrogen [Mass/Vol] 35 mg/dL High 8-23 [facility] Comment on above: Performed By: #### B MP #### [facility] [address] [place] [address] Loans Consultant: Con Oseguera MD BUN/CRE Ratio NOT REPORTED Normal 03-16 [facility] Comment on above: Performed By: #### B MP #### [facility] [address] [place] [address] Loans Consultant: Con Oseguera MD Staging: NOT REPORTED Normal [facility] Comment on above: Performed By: #### B MP #### [facility] [address] [place] [address] Loans Consultant: Con Oseguera MD XR ABDOMEN (KUB) (SINGLE [...] Crow Wright MD 08/21/18 Final result Normal [facility] Basic Metabolic Profon 08-16 (cont.) Normal [facility] Comment on above: Result Comment: Aver age GFR for 70 or more years old: 75 mL/min/1.73sq m Chronic Kidney Disease: <60 mL/min/1.73sq m Kidney failure: <15 mL/min/1.73sq m eGFR calculated using average adult body mass. Additional eGFR calculator available at: http://www.CloudPay.net.Re5ult/multiple_crcl_2012.htm Performed By: #### B MP #### [facility] [address] [place] [address] Loans Consultant: Con Oseguera MD Anion gap [Moles/Vol] 11 mmol/L Normal 9-17 [facility] Comment on above: Performed By: #### B MP #### [facility] [address] [place] [address] Loans Consultant: Con Oseguera MD Calcium [Mass/Vol] 9.0 mg/dL Normal 8.6-10.4 [facility] Comment on above: Performed By: #### B MP #### [facility] [place] [address] Loans Consultant: Con Oseguera MD Chloride [Moles/Vol] 99 mmol/L Normal 98-107 [facility] Comment on above: Performed By: #### B MP #### [facility] [place] [address] Loans Consultant: Con Oseguera MD CO2 [Moles/Vol] 26 mmol/L Normal 20-31 [facility] Comment on above: Performed By: #### B MP #### [facility] [place] [address] Loans Consultant: Con Oseguera MD Creatinine [Mass/Vol] 1.46 mg/dL High 0.70-1.20 [facility] Comment on above: Performed By: #### B MP #### [facility] [place] [address] Loans Consultant: Con Oseguera MD GFR, Amer 56 mL/min Low >60 [facility] Comment on above: Performed By: #### B MP #### [facility] [address] [place] [address] Loans Consultant: Con Oseguera MD GFR,non Amer 46 mL/min Low >60 [facility] Comment on above: Performed By: #### B MP #### [facility] [address] [place] [address] Loans Consultant: Con Oseguera MD Glucose [Mass/Vol] 160 mg/dL High 70-99 [facility] Comment on above: Performed By: #### B MP #### [facility] [address] [place] [address] Loans Consultant: Con Oseguera MD Potassium [Moles/Vol] 4.4 mmol/L Normal 3.7-5.3 [facility] Comment on above: Performed By: #### B MP #### [facility] [address] [place] [address] Loans Consultant: Con Oseguera MD Sodium [Moles/Vol] 136 mmol/L Normal 135-144 [facility] Comment on above: Performed By: #### B MP #### [facility] [address] [place] [address] Loans Consultant: Con Oseguera MD Urea nitrogen [Mass/Vol] 42 mg/dL High 8-23 [facility] Comment on above: Performed By: #### B MP #### [facility] [address] [place] [address] Loans Consultant: Con Oseguera MD BUN/CRE Ratio NOT REPORTED Normal 9-20 [facility] Comment on above: Performed By: #### B MP #### [facility] [address] [place] [address] Loans Consultant: Con Osegurea MD Staging: NOT REPORTED Normal [facility] Comment on above: Performed By: #### B MP #### [facility] [place] [address] Loans Consultant: Con Oseguera MD CBCon 07-11-2018 Erythrocyte distribution width (RBC) [Ratio] 18.8 % High 11.5-14.9 [facility] Comment on above: Performed By: #### C BC #### [facility] [place] [address] Loans Consultant: Con Oseguera MD Hematocrit (Bld) [Volume fraction] 23.1 % Low 41-53 [facility] Comment on above: Performed By: #### C BC #### [facility] [address] [place] [address] Loans Consultant: Con Oseguera MD Hemoglobin (Bld) [Mass/Vol] 7.0 g/dL Critically low 13.5-17.5 [facility] Comment on above: Performed By: #### C BC #### [facility] [address] [place] [address] Loans Consultant: Con Oseguera MD MCH (RBC) [Entitic mass] 21.3 pg Low 26-34 [facility] Comment on above: Performed By: #### C BC #### [facility] [address] [place] [address] Loans Consultant: Con Oseguera MD MCHC (RBC) [Mass/Vol] 30.1 g/dL Low 31-37 [facility] Comment on above: Performed By: #### C BC #### [facility] [address] [place] [address] Loans Consultant: Con Oseguera MD MCV (RBC) [Entitic vol] 70.8 fL Low 80-100 [facility] Comment on above: Performed By: #### C BC #### [facility] [address] [place] [address] Loans Consultant: Con Oseguera MD Platelet mean volume (Bld) [Entitic vol] 8.8 fL Normal 6.0-12.0 [facility] Comment on above: Performed By: #### C BC #### [facility] [address] [facility] [place] [address] Loans Consultant: Con Oseguera MD Platelets (Bld) [#/Vol] 484 10*3/uL High 150-450 [facility] Comment on above: Performed By: #### C BC #### [facility] [address] [place] [address] Loans Consultant: Con Oseguera MD RBC (Bld) [#/Vol] 3.26 10*6/uL Low 4.5-5.9 [facility] Comment on above: Performed By: #### C BC #### [facility] [address] [facility] [place] [address] Loans Consultant: Con Oseguera MD WBC (Bld) [#/Vol] 10.6 10*3/uL Normal 3.5-11.0 [facility] Comment on above: Performed By: #### C BC #### [facility] [address] [facility] [place] [address] Loans Consultant: Con Oseguera MD NRBC Automated NOT REPORTED Normal [facility] Comment on above: Performed By: #### C BC #### [facility] [address] [facility] [place] [address] Loans Consultant: Con Oseguera MD Vital Signs Date Time Vital Sign Value Performing Clinician Megan chauhan 09-13-2023 09:22-0400 Blood Pressure Location SANDYJESSICA CESAR [facility] 09-13-2023 09:22-0400 Body temperature 98.42 [degF] SANDY ARSENIO [facility] 09-13-2023 09:22-0400 Diastolic blood pressure 52 mm[Hg] SANDY ARSENIO [facility] 09-13-2023 09:22-0400 Heart rate 72 /min SANDY ARSENIO [facility] 09-13-2023 09:22-0400 Respiratory rate 16 /min SANDY ARSENIO [facility] 09-13-2023 09:22-0400 Systolic blood pressure 111 mm[Hg] SANDY ARSENIO [facility] 09-06-2023 10:24-0400 Blood Pressure Location SANDY ARSENIO [facility] 09-06-2023 10:24-0400 Body temperature 98.6 [degF] SANDY ARSENIO [facility] 09-06-2023 10:24-0400 Diastolic blood pressure 78 mm[Hg] SANDY ARSENIO [facility] 09-06-2023 10:24-0400 Heart rate 84 /min SANDY ARSENIO [facility] 09-06-2023 10:24-0400 Systolic blood pressure 124 mm[Hg] SANDY ARSENIO [facility] 03-27-2019 17:01-0400 BMI (Body Mass Index) 27.46 kg/m2 Josh Faith [facility], [place] 03-27-2019 17:01-0400 Body Temperature 97.7 [degF] Josh Killeen [facility], [place] 03-27-2019 17:01-0400 Body weight 72.58 kg [facility] [place] 03-27-2019 17:01-0400 BP Diastolic 58 mm[Hg] [facility] [place] 03-27-2019 17:01-0400 BP Systolic 142 mm[Hg] [facility] [place] 03-27-2019 17:01-0400 Height 162.6 cm [facility] [place] 03-27-2019 17:01-0400 Pulse (Heart Rate) 51 /min [facility] 03-27-2019 17:01-0400 Pulse Oximetry 100 % [facility] [place] 03-27-2019 17:01-0400 Respiratory Rate 14 /min [facility], [place] 03-16-2019 01:33-0400 BMI (Body Mass Index) 23.68 kg/m2 [facility], [place] 03-16-2019 01:33-0400 Body Temperature 98.01 [degF] Javier [facility], [place] 03-16-2019 01:33-0400 Body weight 74.84 kg [facility] , [place] 03-16-2019 01:33-0400 BP Diastolic 70 mm[Hg] [facility] , [place] 03-16-2019 01:33-0400 BP Systolic 145 mm[Hg] [facility] , [place] 03-16-2019 01:33-0400 Height 177.8 cm [facility] , [place] 03-16-2019 01:33-0400 Pulse (Heart Rate) 100 /min [facility], [place] 03-16-2019 01:33-0400 Pulse Oximetry 97 % [facility] , [place] 03-16-2019 01:33-0400 Respiratory Rate 16 /min [facility], [place] 03-13-2019 15:00-0400 Pulse [facility]ximetry 95 % [facility] [place] 03-13-2019 15:00-0400 Respiratory Rate 16 /min [facility] [place] 03-13-2019 12:07-0400 Body Temperature 97.3 [degF] [facility] [place] 03-13-2019 12:07-0400 BP Diastolic 54 mm[Hg] [facility] [place] 03-13-2019 12:07-0400 BP Systolic 119 mm[Hg] [facility] [place] 03-13-2019 12:07-0400 Pulse (Heart Rate) 73 /min [facility] [place] 03-12-2019 06:00-0400 BMI (Body Mass Index) 22.24 kg/m2 [facility] [place] 03-12-2019 06:00-0400 Body weight 70.3 kg [facility] [place] 03-08-2019 07:02-0400 Height 177.8 cm Wolfgang [facility], [place] Encounters Encounter Date Encounter Type Care Provider Facility Start: 10-10-2023 ambulatory SANDY E ARSENIO Facili ty:[facility] Start: 09-15-2023 ambulatory SANDY E ARSENIO Facili ty:[facility] Start: 09-13-2023 End: 09-14-2023 ambulatory SANDY E ARSENIO Facility:[facility] Start: 09-13-2023 End: 09-13-2023 Patient encounter procedure SANDY Susy ARSENIO [facility] Start: 09-06-2023 End: 09-07-2023 ambulatory SANDY E ARSENIO Facility: [facility] Start: 09-06-2023 End: 09-06-2023 Patient encounter procedure SANDY E ARSENIO [facility] Start: 08-01-2023 Clinisync Result Encounter Waldemar Orta MD Work Phone: [facility] External Department Unsolicited Start: 08-01-2023 Clinisync Result Encounter Waldemar Orta MD Work Phone: [facility] External [facility] Unsolicited Start: 06-23-2023 ambulatory SANDY ARSENIO Facility : [facility] Start: 03-27-2019 End: 03-27-2019 Emergency department patient visit [facility] Start: 03-27-2019 End: 03-27-2019 Emergency department patient visit Josh Hess Work Phone: [facility] ED Comment on above: Acute kidney injury (HCC) (Primary Dx) Start: 03-16-2019 End: 03-16-2019 Emergency department patient visit JAVIER DEVRIES [facility] Start: 03-16-2019 End: 03-16-2019 Emergency department patient visit Javier Devries Work Phone: [facility] ED Comment on above: Acute urinary retent ion (Primary Dx) Start: 03-07-2019 End: 03-13-2019 Evaluation and management of inpatient [facility] Start: 03-07-2019 End: 03-13-2019 Evaluation and management of inpatient Wolfgang Abhi Ruiz Work Phone: [facility] Med Surg Comment on above: VANESA (acute kidney in jury) (HCC) (Primary Dx); Pneumonia due to organism; Acute cystitis without hematuria Start: 12-10-2018 End: 12-13-2018 Evaluation and management of inpatient [facility] Start: 11-03-2018 End: 11-04-2018 Patient encounter procedure REBECA ORELLANA [facility] Start: 10-23-2018 End: 10-24-2018 Patient encounter procedure LEOBARDO JUAREZ [facility] Start: 10-12-2018 End: 10-13-2018 Patient encounter procedure ELIZABETH K [facility] Start: 09-28-2018 End: 09-29-2018 Patient encounter procedure ELIZABETH Alonso [facility] Start: 09-20-2018 End: 09-21-2018 Patient encounter procedure ELIZABETH Alonso [facility] Start: 09-07-2018 End: 09-08-2018 Patient encounter procedure ELIZABETH Alonso [facility] Start: 08-31-2018 End: 09-01-2018 [facility] Start: 08-21-2018 End: 08-24-2018 Patient encounter procedure SHARIFA N PANGULUR [facility] Start: 08-16-2018 End: 08-17-2018 Patient encounter procedure [facility] Start: 07-11-2018 End: 07-12-2018 Patient encounter procedure SHARIFA N PANGULUR [facility] Procedures Date Procedure Procedure Detail Performing Clinician Start: 08-01-2023 ALL AMMONIA Waldemar Orta MD Work Phone: Start: 03-27-2019 IP CONSULT TO FAMILY MEDICINE SHARIFA PANGULUR Start: 03-27-2019 Basic metabolic panel calcium total SHARIFA PANGULUR Start: 03-27-2019 Blood count complete auto&auto difrntl wbc SHARIFA PANGULUR Start: 03-27-2019 Basic metabolic panel calcium total Johs Hess Work Phone: Start: 03-27-2019 Blood count complete auto&auto difrntl wbc Josh Hess Work Phone: Start: 03-27-2019 Transurethral cystoscopy SANDY CESAR Start: 03-16-2019 Urinalysis microscopic only SHARIFA SPIVEY [...] Talia Rk hansen Work Phone: Start: 03-12-2019 NEBULIZER TX INTERMITTENT SHARIFA PANGU LUR Start: 03-12-2019 Glucose blood reagent strip SHARIFA SPIVEY GULUR Start: 03-12-2019 Glucose blood reagent strip Talia Rk zavalainson Work Phone: Start: 03-12-2019 Gluc bld gluc [...] Talia Rk hansen Work Phone: Start: 03-12-2019 Gluc bld [...] GULUR Start: 03-11-2019 Glucose blood reagent strip Taliasiddharth hansen Work Phone: Start: 03-11-2019 NEBULIZER TX INTERMITTENT SHARIFA PANGU LUR Start: 03-11-2019 Glucose blood reagent strip SHARIFA SPIVEY GULUR Start: 03-11-2019 Glucose blood reagent strip Talia hansen Work Phone: Start: 03-11-2019 Gluc bld gluc [...] Start: 03-11-2019 Glucose blood reagent strip Talia Koreye R obinson Work Phone: Start: 03-11-2019 INTAKE AND OUTPUT SHARIFA PANGULUR Start: 03-10-2019 Gluc bld gluc mntr dev cleared fda spec home use SHARIFA PANGULUR Start: 03-10-2019 NEBULIZER TX INTERMITTENT SHARIFA PANGU LUR Start: 03-10-2019 Glucose blood reagent strip SHARIFA SPIVEY GULUR Start: 03-10-2019 Glucose blood reagent strip Talia Koreye R obinson Work Phone: Start: 03-10-2019 Glucose blood reagent strip SHARIFA SPIVEY GULUR Start: 03-10-2019 NEBULIZER TX INTERMITTENT SHARIFA PANGU LUR Start: 03-10-2019 Glucose blood reagent strip Talia Koreye R obinson Work Phone: Start: 03-10-2019 Gluc bld gluc mntr dev cleared fda spec home use SHARIFA PANGULUR Start: 03-10-2019 NEBULIZER TX INTERMITTENT SHARIFA PANGU LUR Start: 03-10-2019 Glucose blood reagent strip SHARIFA SPIVEY GULUR Start: 03-10-2019 Glucose blood reagent strip Talia Rk zavalainson Work Phone: Start: 03-10-2019 Gluc bld gluc [...] Start: 03-10-2019 Glucose blood reagent strip Talia Koreye R obinson Work Phone: Start: 03-10-2019 INTAKE AND OUTPUT SHARIFA PANGULUR Start: 03-09-2019 Glucose blood reagent strip SHARIFA SPIVEY GULUR Start: 03-09-2019 Gluc bld gluc mntr dev cleared fda spec home use SHARIFA PANGULUR Start: 03-09-2019 NEBULIZER TX INTERMITTENT SHARIFA PANGU LUR Start: 03-09-2019 Glucose blood reagent strip Talia Koreye R obinson Work Phone: Start: 03-09-2019 Glucose blood reagent [...] GULUR Start: 03-09-2019 Glucose blood reagent strip Taliasiddharth hansen Work Phone: Start: 03-09-2019 ELEVATE HEELS OFF [...] Start: 03-08-2019 Glucose blood reagent strip Talia hansen Work Phone: Start: 03-08-2019 TELEMETRY MONITORING SHARIFA PANGULUR Start: 03-08-2019 Glucose blood reagent strip SHARIFA SPIVEY GULUR Start: 03-08-2019 NEBULIZER TX INTERMITTENT SHARIFA PANGU LUR Start: 03-08-2019 Glucose blood reagent strip Talia Rk Jacobo oblucia Work Phone: Start: 03-08-2019 Gluc bld gluc mntr dev cleared fda spec home use SHARIFA PANGULUR Start: 03-08-2019 NEBULIZER TX INTERMITTENT SHARIFA PANGU LUR Start: 03-08-2019 Glucose blood reagent strip SHARIFA SPIVEY GULUR Start: 03-08-2019 Glucose blood reagent strip Talia hansen Work Phone: Start: 03-08-2019 Gluc bld gluc [...] Start: 03-07-2019 IP CONSULT TO PULMONOLOGY SHARIFA SPIVEYGU LUR Start: 03-07-2019 NEBULIZER TX INTERMITTENT SHARIFA PANLISETH LUR Start: 03-07-2019 NOTIFY PHYSICIAN (SPECIFY) SHARIFA GENEVA LECHUGANEETA Start: 03-07-2019 OT EVAL AND TREAT SHARIFA PANGULUR Start: 03-07-2019 PLACE INTERMITTENT PNEUMATIC COMPRESSION DEVICE SHARIFA MEJÍALUR Start: 03-07-2019 PT EVAL AND TREAT SHARIFA PANGULUR Start: 03-07-2019 REASON FOR NO CHEMICAL VTE PROPHYLAXIS SHARIFA PANGULUR Start: 03-07-2019 REASON FOR NOT SELECTING BASAL INSULIN SHARIFA MEJÍALUR Start: 03-07-2019 TOBACCO CESSATION EDUCATION SHARIFA CHILDERSLUR Start: 03-07-2019 VITAL SIGNS SHARIFA MEJÍALUR Start: 03-07-2019 Glucose blood reagent strip Talia hansen Work Phone: Start: 03-07-2019 PATIENT STATUS (FROM ED OR OR/PROCEDURAL) SHARIFA SPIVEYGULUR Start: 03-07-2019 IP CONSULT TO FAMILY MEDICINE SHARIFA MEJÍALUR Start: 03-07-2019 Gluc bld gluc mntr dev cleared fda spec home use SHARIFA SPIVEYGULUR Start: 03-07-2019 Glucose blood reagent strip SHARIFA CHILDERSLUR Start: 03-07-2019 Culture bacterial quanttative colony count urine SHARIFA MEJÍALUR Start: 03-07-2019 Ct abdomen & pelvis w/o contrast material SHARIFA SPIVEYGULUR Start: 03-07-2019 Ecg routine ecg w/least 12 lds w/i&r SHARIFA PANGULUR Start: 03-07-2019 EKG REPORT SHARIFA MEJÍALUR Start: 03-07-2019 Radiologic exam chest 2 views SHARIFA MEJÍALUR Start: 03-07-2019 Assay of lipase SHARIFA PANGULUR Start: 03-07-2019 Assay of troponin quantitative SHARIFA MEJÍALUR Start: 03-07-2019 Blood count complete auto&auto difrntl wbc SHARIFA SPIVEYGULUR Start: 03-07-2019 BRAIN NATRIURETIC PEPTIDE SHARIFA HALE Start: 03-07-2019 Comprehensive metabolic panel SHARIFA MENON Start: 03-07-2019 Hemoglobin glycosylated a1c SHARIFA GALARZA Start: 03-07-2019 Gluc bld gluc mntr dev cleared fda spec home use Mikaela Pfeiffer Work Phone: Start: 03-07-2019 Glucose blood reagent strip Wolfgang Moe [employer] Work Phone: Start: 03-07-2019 Culture bacterial quanttative colony count urine Wolfgang Moe [employer] Work Phone: Start: 03-07-2019 Ct abdomen & [...] Phone: Start: 03-07-2019 Urinalysis microscopic only Mikaela Lozano n Work Phone: Start: 03-07-2019 Urnls dip stick/tablet rgnt auto w/o microscopy Mikaela Pfeiffer Work Phone: Start: 12-13-2018 Gluc bld gluc mntr dev cleared fda spec home use SHARIFA MEJÍALUR Start: 12-13-2018 Assay of magnesium SHARIFA MEJÍALUR [...] fda spec home use SHARIFA MEJÍALUR Start: 12-12-2018 Glucose blood reagent strip SHARIFA ALLYSSA CHILDERSLUR Start: 12-12-2018 Glucose blood reagent strip SHARIFA SPIVEY GULUR Start: 12-12-2018 Gluc bld gluc mntr dev cleared fda spec home use SHARIFA MEJÍALUR Start: 12-12-2018 Glucose blood reagent strip SHARIFA SPIVEY GULUR Start: 12-12-2018 Gluc bld gluc mntr dev cleared fda spec home use SHARIFA PANGULUR Start: 12-12-2018 INITIATE OXYGEN THERAPY PROTOCOL SHARIFA MEJÍALUR Start: 12-12-2018 RESPIRATORY CARE EVALUATION AND TREAT [...] Start: 12-11-2018 INITIATE OXYGEN THERAPY PROTOCOL SHARIFA SPIVEYGULUR Start: 12-11-2018 RESPIRATORY CARE EVALUATION AND TREAT SHARIFA PANGULUR Start: 12-11-2018 Glucose blood reagent strip SHARIFA SPIVEY GULUR Start: 12-11-2018 PLACE INTERMITTENT PNEUMATIC COMPRESSION DEVICE SHARIFA PANGULUR Start: 12-11-2018 Gluc bld gluc mntr dev cleared fda spec home use SHARIFA PANGULUR Start: 12-11-2018 Basic metabolic panel calcium total SHARIFA MEJÍALUR Start: 12-11-2018 Blood count complete auto&auto difrntl wbc SHARIFA MEJÍALUR Start: 12-11-2018 RESPIRATORY CARE EVALUATION AND TREAT SHARIFA MEJÍALUR Start: 12-10-2018 Gluc bld gluc mntr dev cleared fda spec home use SHARIFA PANLISETHLUR Start: 12-10-2018 Glucose blood reagent strip SHARIFA CHILDERSLUR Start: 12-10-2018 DIET LOW SODIUM 2 GM SHARIFA MEJÍALUR Start: 12-10-2018 FULL CODE SHARIFA MEJÍALUR Start: 12-10-2018 IP CONSULT TO CARDIOLOGY SHARIFA ALFONZORodrigo UR Start: 12-10-2018 NOTIFY PHYSICIAN (SPECIFY) SHARIFA IVY Start: 12-10-2018 REASON FOR NO MECHANICAL VTE PROPHYLAXIS SHARIFA MEJÍALUR Start: 12-10-2018 VITAL SIGNS SHARIFA MJEÍALUR Start: 12-10-2018 Urnls dip stick/tablet rgnt auto w/o microscopy SHARIFA MEJÍALUR Start: 12-10-2018 PATIENT STATUS (FROM ED OR OR/PROCEDURAL) SHARIFA MEJÍALUR Start: 12-10-2018 Assay of troponin quantitative SHARIFA MEJÍALUR Start: 12-10-2018 IP CONSULT TO FAMILY MEDICINE SHARIFA SPIVEYLISETHLUR Start: 12-10-2018 INITIATE OXYGEN THERAPY PROTOCOL SHARIFASUSAN MEJÍALUR Start: 12-10-2018 Ct abdomen & pelvis w/o contrast material SHARIFA PANGULUR Start: 12-10-2018 Radiologic exam chest 2 views [...] SHARIFA PANGULUR Start: 12-10-2018 EKG REPORT SHARIFA PANGULUR Start: 12-10-2018 TELEMETRY MONITORING SHARIFA PANGULUR Start: [...] metabolic panel calcium total SHARIFA PANGULUR Start: 07-17-2018 Colonoscopy SANDY CESAR Start: 07-11-2018 Blood count complete automated SHARIFA PANGULUR Start: 06-16-2018 Endoscopy SANDY CESAR Start: 06-13-2018 Colonoscopy SANDY CESAR Appendectomy SANDY CESAR Cholecystectomy SANDY GONZALES Herniated structure (morphologic abnormality) SANDY CESAR Tonsillectomy SANDY CESAR Plan of Treatment Date Care Activity Detail Author Start: 03-13-2020 Creatinine monitoring Creatinine mon itoring [place], [place] Start: 03-13-2020 Potassium monitoring Potassium monit [place]ing [place] Start: 09-05-2019 A1C test (Diabetic o r Prediabetic) A1C test (Diabetic or Prediabetic) [place] Start: 06-27-2019 DTaP/Tdap/Td vaccine (1 - Tdap) DTaP/Tdap/Td vaccine (1 - Tdap) [place] Comment on above: Postponed from 03/25 (Insurance / Financial) Start: 04-20-2019 End: 04-20-2019 Office Visit 04/20/2019 Office Visit Urology Bryant Eller MD [address] [place] [address] [phone] [facility] [place] Start: 02-25-2019 Influenza vaccination Flu vaccine (# 1) [place], [place] Start: 11-22-2018 Annual Wellness Visi t (AWV) [facility] Start: 11-30-2017 [object Object] [facility] Start: 05-28-2017 [facility] Start: 05-26-2016 Diabetic retinal exam [facility] retin [facility] Start: 03-22-2016 Shingles Vaccine (2 of 3) Shingles Vaccine (2 of 3) [place], [place] Basic Metabolic Pane l w/ Reflex to MG Basic Metabolic Panel w/ Reflex to MG Lab Routine Daily until discontinued starting 03/08/2019, 6 completed [place] Comment on above: Daily until disconti nued starting 03/08/2019, 6 completed HHN Treatment HHN Treatment Respiratory Care Routine Every 4hr while awake until discontinued starting 03/08/2019 [place] Comment on above: Every 4hr while awak e until discontinued starting 03/08/2019 Initiate Oxygen Ther apy Protocol Initiate Oxygen Therapy Protocol Respiratory Care Routine Daily until discontinued starting 03/07/2019 [place] Comment on above: Daily until disconti nued starting 03/07/2019 POCT glucose [place], [place] Comment on above: 4X Daily (AC & HS) u ntil discontinued starting 03/08/2019 As Needed until disc ontinued starting 03/07/2019 Immunizations Immunization Date Immunization Notes Care Provider Richar crawley 03-10-2020 influenza virus vaccine, unspecified formulation SANDY CESAR [facility] Comment on above: Result Comment: 2023: VIS DATE: 02/08/2019 04-27-2019 influenza, unspecifi ed formulation SANDY CESAR [facility] Comment on above: Result Comment: 2023: EXTERNAL ADMIN: PT RPT 03-10-2018 influenza virus vaccine, unspecified formulation SANDY CESAR [facility] Comment on above: Result Comment: 2023: VIS DATE: 01/31/2015 03-10-2018 influenza, injectabl e, quadrivalent, preservative free [facility] 02-22-2017 influenza virus vaccine, unspecified formulation SANDY CESAR [facility] Comment on above: Result Comment: 2023: VIS DATE: 01/31/2015 02-22-2017 influenza, injectabl e, quadrivalent, contains preservative [facility] 10-01-2016 pneumococcal conjuga te vaccine, 13 valent [facility] 04-01-2016 influenza, injectabl e, quadrivalent, contains preservative [facility] 01-26-2016 zoster vaccine, live [facility] [place] 01-02-2016 zoster vaccine, live [facility] 05-26-2015 influenza virus vaccine, unspecified formulation [facility], [place] 05-27-2014 pneumococcal polysaccharide vaccine, 23 valent [facility] 05-10-2013 influenza virus vaccine, unspecified formulation [facility] 05-11-2012 influenza virus vaccine, unspecified formulation [facility] 06-10-2011 influenza virus vaccine, unspecified formulation [facility] 05-19-2010 influenza virus vaccine, unspecified formulation [facility] 04-17-2004 influenza virus vaccine, unspecified formulation SANDY CESAR [facility] 06-24-2003 pneumococcal polysaccharide vaccine, 23 valent SANDY CESAR [facility] 04-24-2003 pneumococcal polysaccharide vaccine, 23 valent SANDY CESAR [facility] 12-21-2000 hepatitis B vaccine, adult dosage SANDY CESAR [facility] 07-06-2000 hepatitis B vaccine, adult dosage SANDY CESAR [facility] 06-03-2000 hepatitis B vaccine, adult dosage SANDY CESAR [facility] Payers Date Payer Category Payer Unknown BC BCBS xxxxxx [id number] 2022-Present [phone] [address] [place] [address] [id number] 2015 Medicare BCBS MEDICARE AN THEM MEDIBLUE ESSENTIAL/PLUS xxxxxxxxxxxx 2015-Present [address] [address] [place] [address] xxxxxxxxxxxx [id number] 2015 Medicare [id number] 1935 Unknown [id number] [id number]. 1935 Unknown [id number] 2.16.840.1.954383.3.579.2. 1935 Unknown [id number] 2.16.840.1.067553.3.579.2. 1935 Unknown [id number] 2.16.840.1.867276.3.579.2.176 1935 Unknown [id number] 2.16.840.1.021055.3.579.2.176 1935 Unknown [id number] 2.16.840.1.478705.3.579.2.176 1937 Unknown [id number] 2.16.840.1.630761.3.579.2.176 1937 Unknown [id number] 2.16.840.1.309934.3.579.2.176 1935 Unknown [id number] 2.16.840.1.028231.3.579.2.176 1937 Unknown [id number] 2.16.840.1.555525.3.579.2.176 1937 Unknown [id number] 2.16.840.1.475381.3.579.2.176 1935 Unknown [id number] 2.16.840.1.509585.3.579.2.176 1935 Unknown [id number] 2.16.840.1.054773.3.579.2.176 1937 Unknown [id number] 2.16.840.1.096093.3.579.2.176 1937 Unknown [id number] 2.16.840.1.906526.3.579.2.176 1937 Unknown [id number] 2.16.840.1.840083.3.579.2.176 1937 Unknown [id number] 2.16.840.1.326586.3.579.2.176 1937 Unknown [id number] 2.16.840.1.612889.3.579.2.727 1935 Unknown [id number] 2.16.840.1.912835.3.579.2.727 1935 Unknown [id number] 2.16.840.1.600368.3.579.2.727 Social History Date Type Detail Facility Start: 03-07-2019 End: 09-13-2023 Tobacco smoking status NHIS Former smoker [facility] End: 06-27-1967 History of tobacco use Current smoker [place], [place] Start: 03-07-2019 End: 03-16-2019 Cigarettes smoked current (pack per day) - Reported [place] Start: 03-07-2019 End: 03-16-2019 Alcohol intake No [facility] Start: 01-06-2015 Tobacco Comment quit over 50 years a go [place], [place] Start: 1935 Sex Assigned At Not on file M [place] [facility] Functional Status Date Assessment Result Facility 09-13-2023 Functional Status N/A [facility] 09-06-2023 Functional Status N/A [facility] Discharge instructions 09-13-2023 Note Date & Type Note Facility 09-13-2023 Hospital Discharg e instructions Patient Education 09/13/2023 10:11:48 Hematuria, Adult Hematuria, Adult Hematuria is blood in the urine. Blood may be visible in the urine, or it may be identified with a test. This condition can be caused by infections of the bladder, urethra, kidney, or prostate. Other possible causes include: Kidney stones. Cancer of the urinary tract. Too much calcium in the urine. Conditions that are passed from parent to child (inherited conditions). Exercise that requires a lot of energy. Infections can usually be treated with medicine, and a kidney stone usually will pass through your urine. If neither of these is the cause of your hematuria, more tests may be needed to identify the cause of your symptoms. It is very important to tell your health care provider about any blood in your urine, even if it is painless or the blood stops without treatment. Blood in the urine, when it happens and then stops and then happens again, can be a symptom of a very serious condition, including cancer. There is no pain in the initial stages of many urinary cancers. Follow these instructions at home: Medicines Take unmg-ais-oxanbgq and prescription medicines only as told by your health care provider. If you were prescribed an antibiotic medicine, take it as told by your health care provider. Do not stop taking the antibiotic even if you start to feel better. Eating and drinking Drink enough fluid to keep your urine pale yellow. It is recommended that you drink 3 4 quarts (2.8 3.8 L) a day. If you have been diagnosed with an infection, drinking cranberry juice in addition to large amounts of water is recommended. Avoid caffeine, tea, and carbonated beverages. These tend to irritate the bladder. Avoid alcohol because it may irritate the prostate (in males). General instructions If you have been diagnosed with a kidney stone, follow your health care provider's instructions about straining your urine to catch the stone. Empty your bladder often. Avoid holding urine for long periods of time. If you are female: ?After a bowel movement, wipe from front to back and use each piece of toilet paper only once. ?Empty your bladder before and after sex. Pay attention to any changes in your symptoms. Tell your health care provider about any changes or any new symptoms. It is up to you to get the results of any tests. Ask your health care provider, or the department that is doing the test, when your results will be ready. Keep all follow-up visits. This is important. Contact a health care provider if: You develop back pain. You have a fever or chills. You have nausea or vomiting. Your symptoms do not improve after 3 days. Your symptoms get worse. Get help right away if: You develop severe vomiting and are unable to take medicine without vomiting. You develop severe pain in your back or abdomen even though you are taking medicine. You pass a large amount of blood in your urine. You pass blood clots in your urine. You feel very weak or like you might faint. You faint. Summary Hematuria is blood in the urine. It has many possible causes. It is very important that you tell your health care provider about any blood in your urine, even if it is painless or the blood stops without treatment. Take jtla-xqv-dfijmtn and prescription medicines only as told by your health care provider. Drink enough fluid to keep your urine pale yellow. This information is not intended to replace advice given to you by your health care provider. Make sure you discuss any questions you have with your health care provider. Document Revised: 02/11/2021 Document Reviewed: 02/11/2021 [employer] Patient Education 2022 [employer]. Follow Up Care 09/07/2023 09:39:22 With:4 weeks [facility] location for so [facility]ick [facility] Address:Unknown When: Unknown [facility] Discharge instructions 09-06-2023 Note Date & Type Note Facility 09-06-2023 Hospital Discharg e instructions Patient Education 09/06/2023 12:17:09 Chronic Kidney Disease, Adult Chronic Kidney Disease, Adult Chronic kidney disease (CKD) occurs when the kidneys are slowly and permanently damaged over a long period of time. The kidneys are a pair of organs that do many important jobs in the body, including: Removing waste and extra fluid from the blood to make urine. Making hormones that maintain the amount of fluid in tissues and blood vessels. Maintaining the right amount of fluids and chemicals in the body. A small amount of kidney damage may not cause problems, but a large amount of damage may make it hard or impossible for the kidneys to work right. Steps must be taken to slow kidney damage or to stop it from getting worse. If steps are not taken, the kidneys may stop working permanently (end-stage renal disease, or ESRD). Most of the time, CKD does not go away, but it can often be controlled. People who have CKD are usually able to live full lives. What are the causes? The most common causes of this condition are diabetes and high blood pressure (hypertension). Other causes include: Cardiovascular diseases. These affect the heart and blood vessels. Kidney diseases. These include: ?Glomerulonephritis, or inflammation of the tiny filters in the kidneys. ?Interstitial nephritis. This is swelling of the small tubes of the kidneys and of the surrounding structures. ?Polycystic kidney disease, in which clusters of fluid-filled sacs form within the kidneys. ?Renal vascular disease. This includes disorders that affect the arteries and veins of the kidneys. Diseases that affect the body's defense system (immune system). A problem with urine flow. This may be caused by: ?Kidney stones. ?Cancer. ?An enlarged prostate, in males. A kidney infection or urinary tract infection (UTI) that keeps coming back. Vasculitis. This is swelling or inflammation of the blood vessels. What increases the risk? Your chances of having kidney disease increase with age. The following factors may make you more likely to develop this condition: A family history of kidney disease or kidney failure. Kidney failure means the kidneys can no longer work right. Certain genetic diseases. Taking medicines often that are damaging to the kidneys. Being around or being in contact with toxic substances. Obesity. A history of tobacco use. What are the signs or symptoms? Symptoms of this condition include: Feeling very tired (lethargic) and having less energy. Swelling, or edema, of the face, legs, ankles, or feet. Nausea or vomiting, or loss of appetite. Confusion or trouble concentrating. Muscle twitches and cramps, especially in the legs. Dry, itchy skin. A metallic taste in the mouth. Producing less urine, or producing more urine (especially at night). Shortness of breath. Trouble sleeping. CKD may also result in not having enough red blood cells or hemoglobin in the blood (anemia) or having weak bones (bone disease). Symptoms develop slowly and may not be obvious until the kidney damage becomes severe. It is possible to have kidney disease for years without having symptoms. How is this diagnosed? This condition may be diagnosed based on: Blood tests. Urine tests. Imaging tests, such as an ultrasound or a CT scan. A kidney biopsy. This involves removing a sample of kidney tissue to be looked at under a microscope. Results from these tests will help to determine how serious the CKD is. How is this treated? There is no cure for most cases of this condition, but treatment usually relieves symptoms and prevents or slows the worsening of the disease. Treatment may include: Diet changes, which may require you to avoid alcohol and foods that are high in salt, potassium, phosphorous, and protein. Medicines. These may: ?Lower blood pressure. ?Control blood sugar (glucose). ?Relieve anemia. ?Relieve swelling. ?Protect your bones. ?Improve the balance of salts and minerals in your blood (electrolytes). Dialysis, which is a type of treatment that removes toxic waste from the body. It may be needed if you have kidney failure. Managing any other conditions that are causing your CKD or making it worse. Follow these instructions at home: Medicines Take swac-qbm-rxmptun and prescription medicines only as told by your health care provider. The amount of some medicines that you take may need to be changed. Do not take any new medicines unless approved by your health care provider. Many medicines can make kidney damage worse. Do not take any vitamin and mineral supplements unless approved by your health care provider. Many nutritional supplements can make kidney damage worse. Lifestyle Do not use any products that contain nicotine or tobacco, such as cigarettes, e-cigarettes, and chewing tobacco. If you need help quitting, ask your health care provider. If you drink alcohol: ?Limit how much you use to: ?0 1 drink a day for women who are not . ?0 2 drinks a day for men. ?Know how much alcohol is in your drink. In the [place] one drink equals one 12 oz bottle of beer (355 mL), one 5 oz glass of wine (148 mL), or one 1 oz glass of hard liquor (44 mL). Maintain a healthy weight. If you need help, ask your health care provider. General instructions Follow instructions from your health care provider about eating or drinking restrictions, including any prescribed diet. Track your blood pressure at home. Report changes in your blood pressure as told. If you are being treated for diabetes, track your blood glucose levels as told. Start or continue an exercise plan. Exercise at least 30 minutes a day, 5 days a week. Keep your immunizations up to date as told. Keep all follow-up visits. This is important. Where to find more information [place] [employer]: www.aakp.org National Kidney Foundation: www.kidney.org [employer] [employer]: www.akfinc.org Life Options: www.lifeoptions.org Kidney School: www.kidneyschool.org Contact a health care provider if: Your symptoms get worse. You develop new symptoms. Get help right away if: You develop symptoms of ESRD. These include: ?Headaches. ?Numbness in your hands or feet. ?Easy bruising. ?Frequent hiccups. ?Chest pain. ?Shortness of breath. ?Lack of menstrual periods, in women. You have a fever. You are producing less urine than usual. You have pain or bleeding when you urinate or when you have a bowel movement. These symptoms may represent a serious problem that is an emergency. Do not wait to see if the symptoms will go away. Get medical help right away. Call your local emergency services (911 in the [place] Do not drive yourself to the hospital. Summary Chronic kidney disease (CKD) occurs when the kidneys become damaged slowly over a long period of time. The most common causes of this condition are diabetes and high blood pressure (hypertension). There is no cure for most cases of CKD, but treatment usually relieves symptoms and prevents or slows the worsening of the disease. Treatment may include a combination of lifestyle changes, medicines, and dialysis. This information is not intended to replace advice given to you by your health care provider. Make sure you discuss any questions you have with your health care provider. Document Revised: 09/17/2020 Document Reviewed: 09/17/2020 [employer] Patient Education 2022 [employer]. Follow Up Care 09/06/2023 08:19:47 With:SANDY CESAR PA-C, URL Address: [address] [facility] [place] [address] When: Unknown Comments:schedule cath change once we have consent [facility] Evaluation + Plan note Note Date & Type Note Facility Evaluation + Plan note No data available for this section [facility] Evaluation + Plan note Note Date & Type Note Facility Evaluation + Plan note Future Appointments Appointment Date:10/10/2023 01:40:00 PM Scheduled Provider:SANDY CESAR PA-C Location:[facility] Appointment Type:URO Office Visit [facility] Progress note Note Date & Type Note Facility Progress note No data available for this section [facility] Discharge Instructions * Discharge Instr - JEWELL* Renee Fernandez RN - 03/09/2019 12:34 PM EDT Continuity of Care Form Patient Name: Juan Ramon Neville : 1935 Admit date: 03/07/2019 Discharge date: 03/13/2019 Code Status Order: DNR-CC Advance Directives: Advance Care Flowsheet Documentation Date/Time Healthcare Directive Type of Healthcare Directive Copy in Chart Healthcare Agent Appointed Healthcare Agent's Name Healthcare Agent's Phone Number 03/07/19 [phone] Yes, patient has an advance directive for healthcare treatment Admitting Physician: Talia Pastor MD PCP: Talia Pastor MD Discharging Nurse: Anca HOFFMANN Discharging Hospital Unit/Room#: 2043/2043-01 Discharging Unit Emergency Contact: Extended Emergency Contact Information Primary Emergency Contact: Alvin Neville Relation: Child Secondary Emergency Contact: Aleksandra Neville [facility] Mobile Relation: None Past Surgical History: [...] and older Afluria) 03/10/2018 Pneumococcal Conjugate 13-valent ([id number]) 10/01/2016 Pneumococcal Polysaccharide ([id number]) 05/27/2014 Zoster Live (Zostavax) 01/02/2016, 01/26/2016 Active Problems: Patient Active Problem List Diagnosis Code Benign essential hypertension I10 Renal cyst N28.1 SVT (supraventricular tachycardia) ([facility]) I47.1 Uncontrolled type 2 diabetes mellitus without complication, with long-term current use of insulin ([facility]) E11.65, Z79.4 Atrial fibrillation ([facility]) I48.91 Hx of simple renal cyst Z87.448 Body mass index (BMI) of 23.0-23.9 in adult Z68.23 Hypomagnesemia E83.42 Diverticulosis K57.90 Acute blood loss anemia D62 CHF with cardiomyopathy ([facility]) I50.9, I42.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 Chronic diastolic heart failure, NYHA class 2 ([facility]) I50.32 CKD (chronic kidney disease) stage 3, GFR 30-59 ml/min ([facility]) N18.3 Hypercholesteremia E78.00 Mild pulmonary hypertension (HCC) [...] Wt 150 lb 9.2 oz (68.3 kg) QhO729% BMI 21.61 kg/m Last documented pain score (0-10 scale): Pain Level: 3 Last Weight: Wt Readings from Last 1 Encounters: 03/09/19 150 lb 9.2 oz (68.3 kg) Mental Status: oriented and alert IV Access: - None Nursing Mobility/ADLs: Walking Assisted Transfer Assisted Bathing Assisted Dressing Assisted Toileting Assisted Feeding Assisted Chucking Machine Set Up Operator Tool Assisted Med Delivery whole Wound Care Documentation [...] Readmission: 19 Discharging to Facility/ Agency Name: [facility] (formerly called [facility]) Address: [facility] [address] client coordinator crystal [phone] Fax: Coffee Grower/Battery Parts Assembler signature: ICIAN SECTION Prognosis: Guarded Condition at Discharge: Stable Rehab Potential (if transferring to Rehab): Guarded Recommended Labs or Other Treatments After Discharge: Physician Certification: I certify the above information and transfer of Juan Ramon Neville is necessary for the continuing treatment of the diagnosis listed and that he requires Custodial Facility for less 30 days. Update Admission [...] medications. --- Having trouble affording medications? Try [employer]! (This is not a hospital endorsed website, merely a recommendation based on my own personal experiences with [employer]) --- Questions? Contact me anytime. Javier Devries MD, AJYSON --- --- * Attachments The following attachments cannot be sent through Care Everywhere. * Urinary Retention (Turkish) documented in this encounter History of Present [...] Donald OTA - 03/12/2019 10:40 AM EDT [facility] OCCUPATIONAL THERAPY MISSED TREATMENT NOTE INPATIENT [...] in the note per my discussion with ENOLOGIST * Talia Pastor MD - 03/11/2019 1:42 [...] Daily Talia Pastor MD 400 Units at 03/11/1944 insulin glargine (LANTUS) injection vial 8 Units [...] solution 2.5 mg 2.5 mg Nebulization Q4H CO Talia Pastor MD 2.5 mg at 03/11/19 [...] in the note per my discussion with ENOLOGIST * Andrew Duncan MD - 03/11/2019 11:25 AM EDT [facility] Physicians Cardiology (PPC) Progress Note 03/11/2019 11:25 [...] Subcutaneous Nightly albuterol 2.5 mg Nebulization Q4H CO sodium chloride flush 10 mL Intravenous 2 [...] 11:46 AM EDT Physical Therapy Facility/Department: [facility] MED SURG Daily Treatment Note NAME: Juan [...] direction w/ supervision using rail, nurse Macy torresred OOB due to confusion & yelling, further [...] Duncan MD - 03/10/2019 10:48 AM EDT [facility] Cardiology ([facility]) Progress Note 03/10/2019 10:48 [...] and corrected by editing. ANDREW DUNCAN MD [facility] * Talia Pastor MD - 03/10/2019 10:31 [...] Daily Talia Pastor MD 0.8 mg at 03/09/1915 vitamin E capsule 400 Units 400 Units [...] TID Talia Pastor MD 3 Units at 03/09/191702 insulin lispro (HUMALOG) injection vial 0-3 Units 0-3 Units Subcutaneous Nightly Talia Pastor MD 1 Units at 03/09/192113 albuterol (PROVENTIL) nebulizer solution 2.5 mg 2.5 mg Nebulization Q4H CO Talia Pastor MD 2.5 mg at 03/10/19 [...] Problem: Pneumonia Active Problems: SVT (supraventricular tachycardia) ([facility]) Benign essential hypertension Uncontrolled type 2 diabetes [...] of care discussed with Dr Bart HUERTA, HIGHWAY MAINTENANCE WORKER - STEAM GIGGER REASON FOR VISIT: Pl effusion, dyspnea I examined the patient myself The assessment and Plan in the note per my discussion with ENOLOGIST * Andrew Duncan MD - 03/09/2019 5:32 PM EDT [facility] Progress Note 03/09/2019 [...] and corrected by editing. ANDREW DUNCAN MD [facility] * Dayan Ledbetter, PT - 03/09/2019 3:33 PM EDT Physical Therapy REVISED GOALS [facility] Date: 03/09/19 Patient Name: Juan Ramon Neville Room: Account: [id number] : 1935 (83 y.o.) Gender: male 03/09/19 [...] w/ CGA x 1 * Megan Jackson, SALVAGE ENGINEER - 03/09/2019 12:31 PM EDT Physical Therapy [facility] Physical Therapy Progress Note Date: 03/09/19 Patient Name: Juan Ramon Neville Room: Account: [id number] : 1935 (83 y.o.) Gender: male Discharge [...] states pt had been using O2 at [facility], walking with RW (had Rollator at home for 1 wk before pt developed PNA, admitted to [facility]); CHF is at point where fluid around lungs is normal/expected, better controlled since admission, with Lasix; blood sugars have been running high. Daughter states pt was Dx'd with UTI, which exacerbated his dementia. Pt states everything was (felt) screwed up yesterday. Comments: SHUN March OK'd tx, reports pt is more [...] asked to remain there after for lunch. GENET Pedroza L forearm Bed Mobility: Bed Mobility Comment: [...] exercises 1: Seated B LE ther ex, AROM/pokagon resistance band, 15x each Other exercises 2: [...] Lagunas, OT - 03/09/2019 10:56 AM EDT [facility] Occupational Therapy Evaluation Date: 03/09/19 Patient Name: Juan Ramon Neville Room: Account: [id number] : 1935 (83 y.o.) Gender: male Discharge [...] Assistance: Independent(uses RW) Transfer Assistance: Independent Active Logistics Analyst: Yes Mode of Transportation: Car Occupation: Retired Additional Comments: Pt and Pt's daughter report that he has been at [facility] since Mid-December. Pt has been [...] Patient Tolerated treatment well Functional Outcome Measures [facility] Daily Activity Inpatient How much help for [...] much help for eating meals?: A Little [facility] Inpatient Daily Activity Raw Score: 18 [facility] Inpatient ADL T-Scale Score : 38.66 ADL Inpatient CMS 0-100% Score: 46.65 ADL Inpatient [facility] G-Code Modifier : CK Goals Patient Goals [...] Subcutaneous Nightly albuterol 2.5 mg Nebulization Q4H CO sodium chloride flush 10 mL Intravenous 2 [...] ABGs: No results for input(s): PHART, PO2ART, JOE3EOG, EPR1JAC, BEART, [id number], [id number] in the last 72 hours. PT/INR: No [...] Pastor MD 5 mg at 03/08/19 0825 furosemide (LASIX) tablet 40 mg 40 mg Oral Daily Talia Pastor MD 40 mg at 03/08/19 0825 insulin glargine (LANTUS) injection vial 10 Units 10 Units Subcutaneous QAM Talia Pastor MD10 Units at 03/08/19 08 lisinopril (PRINIVIL;ZESTRIL) tablet 40 mg 40 mg Oral Daily Talia Pastor MD 40 mg at 03/08/19824 magnesium oxide (MAG-OX) tablet 400 mg 400 [...] Nightly Talia Pastor MD 1 Units at 03/08/195 albuterol (PROVENTIL) nebulizer solution 2.5 mg 2.5 mg Nebulization Q4H CO Talia Pastor MD 2.5 mg at 03/09/19 [...] PM EDT SW spoke to Crystal from [facility]. She will start the pre-cert for pt's return to facility. * Dayan Ledbetter, PT - 03/08/2019 9:39 AM EDT Physical Therapy Facility/Department: [facility] MED SURG Initial Assessment NAME: Juan Ramon [...] / Caregiver Present: No Referring Practitioner: Dr. Ketih Pastor Referral Date : 03/07/19 Diagnosis: pneumonia, [...] walker- up independently) Transfer Assistance: Independent Active Logistics Analyst: Yes Mode of Transportation: Car Occupation: Retired [...] bed, Nurse notified(nurse Cavazos) G-Code OutComes Score [facility] Score [facility] Inpatient Mobility Raw Score : 8 (03/08/19849) [facility] Inpatient T-Scale Score : 28.52 (03/08/19849) Mobility Inpatient [facility] 0-100% Score: 86.62 (03/08/19849) Mobility Inpatient [facility] G-Code Modifier : CM (03/08/19849) Goals Short [...] noted at this time * Michelle Mei [facility] - 03/07/2019 8:49 PM EDT Medication History [...] facility list. Thank you, Michelle Mei PharmD, [facility] [phone] documented in this encounter* Michelle Mei RPH - 03/27/2019 6:32 PM EDT Medication History completed: New medications: none Medications discontinued: none Changes to dosing: Fenofibrate changed to nightly Furosemide changed to twice daily Potassium chloride changed to ER tablet formulation Stated allergies: As listed Other pertinent information: Medications confirmed with facility list. Thank you, Michelle Mei PharmD, [facility] [phone] documented in this encounter Assessments Diagnosis Pneumonia- Primary Pneumonia, organism unspecified VANESA (acute kidney injury) ([facility]) Acute kidney failure, unspecified Pneumonia due to organism Pneumonia due to other specified organism Acute cystitis without hematuria Acute cystitis Atrial fibrillation ([facility]) Atrial fibrillation Benign essential hypertension Essential hypertension, benign Chronic diastolic heart failure, NYHA class 2 ([facility]) Chronic diastolic heart failure CKD (chronic kidney disease) stage 3, GFR 30-59 ml/min ([facility]) Chronic kidney disease, Stage III (moderate) CHF with cardiomyopathy ([facility]) Congestive heart failure, unspecified 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 Mild pulmonary hypertension (HCC) Other chronic pulmonary heart diseases SVT (supraventricular tachycardia) ([facility]) Other specified cardiac dysrhythmias Uncontrolled type 2 diabetes mellitus without complication, with long-term current use of insulin (HCC) Urinary retention due to benign prostatic hyperplasia Diagnosis Acute kidney injury (HCC)- Primary Acute kidney failure, unspecified Diagnosis Acute urinary retention- Primary Other specified retention of urine Advance Directives No Advanced Directives Records FoundDocuments on File Type Date Recorded 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 Advance Directives and Livin g Will 03/07/2018 9:31 AM [facility] Advance Directives and Livin g Will 01/09/2015 10:42 AM Power of Fiscal Manager Power of Fiscal Manager 01/09/2015 10:42 AM Latest Code Status on [...] Family History No Family History Records Found No data available for this section No data available for this section No Family History Records Found Additional Source Comments Reason for Visit (unrecogniz ed section and content) Reason Comments Bloated Status Reason Specialty Diagnoses / Procedures Referre d By Contact Referred To Contact Diagnoses Pneumonia Talia Pastor MD [address] [id number] [facility] Reason Comments Abnormal Lab Creatinine: 2.83 Reason Comments Urinary Retention (unrecognized sect ion and content) No Status Records FoundNo Status Records Found INFORMATION SOURCE (unrecogn ized section and content) DATE CREATED AUTHOR 03/28/2019 [facility] DATE CREATED AUTHOR AUTHOR'S ORGANIZ ATION 09/15/2023 [facility] Patient Care team informatio n (unrecognized section and content) Personnel Name: WALDEMAR ORTA MD Address: Address: [address] [place] [address] Personnel Name: WALDEMAR ORTA MD Address: Address: [address] [place] [address] FOR RECORDS PERTAINING TO PATIENTS WHO ARE [...] BE BASED ON THE PRIMARY CLINICAL RECORDS. [facility] [employer] [facility]. provides no warranty or guarantee of the accuracy or completeness of information in this document.
[2023-09-19 08:48] LABS: Estimated Average Glucose 166 mg/dL; Glycohemoglobin A1C 7.4 % (4.5-6.2)
[2023-09-19 10:18] LABS: Thyroid Stimulating Hormone 2.262 uIU/mL (0.358-3.740)
== END 2023-09-19 02:07 | disposition home or self-care (01) ==
LOC: LAB 02:06
PROVIDERS: Visit Provider Family Medicine
DX: Z51.81 Encounter for therapeutic drug level monitoring (principal)
CPT/HCPCS: 36415; 83036; 84443

== ENCOUNTER 2023-10-05 06:13 | Outpatient (REF) | payer MEDICARE, SELFPAY ==
--- OUTSIDE RECORDS SUMMARY | 2023-10-05 06:21 | XMS_ITS | CCD ---
Author Organization [facility] Care Team Providers Care Stenciler Name Role Phone Dawit Talia Stipe Primary [...] Care Provider UnavailWALDEMAR Chanel Primary Care Physician [phone] SANDY CESAR Attending Unavailable SANDY CESAR Attending Unavailable SANDY CESAR Attending Unavailable SANDY CESAR Attending Unavailable Allergies Allergy Classification Reported Allergen(s) Allergy Type Date of Onset Reaction(s) Facility (3 sources) diphenhydrAMINE Drug Allergy [address] [place] [address] (2 sources) diphenhydrAMINE; Translations: [diphenhydramine] Drug Allergy [facility] (1 source) No Known Medication Allergies; Translations: [No Known Medication Allergies] Propensity to adverse reactions (disorder) [facility] Repository Medications Current Medications Medication Drug Class(es) Dates Sig (Normalized) Sig (Original) acetaminophen 325 mg oral tablet (4 sources) Start: 03-07-2019 650 mg, Oral, EVERY 4 HOURS PRN, Pain Mild (1-3), Fever, For temp greater than 100.5 F (38 C), Starting 03/07/19 at 2122 Maximum dose of acetaminophen is 4000 mg from all sources in 24 hours. take 2 tablets by [facility] every four hours as needed [...] mg oral capsule (1 source) Antiarrhythmic, Uncompetitive R-lraojh-E-aspartate Receptor Antagonist, Cytochrome P450 2D6 Inhibitor, Sigma-1 [...] (3 sources) Start: 03-07-2019 15 g, Oral, HI N, Low blood sugar, Starting Tue03/07/19 at [...] (5 sources) Start: 09-13-2023 Potassium Chlo ride (Iak-Qdcb-Pgl M20) 20 mEq oral tablet, extended release [...] Range Facility Lab Reportson 09-14-2023 Lab Reports [id number] #1.00TIFF Normal [facility] Ambulatory Visit Summaryon 0 09-13-2023 Ambulatory [...] 30 mg Tab) potassium chloride (Potassium Chloride (Yfk-Hlqb-Juf M20) 20 mEq oral tablet, extended release) [...] 0 Refill(s) Unchanged potassium chloride (Potassium Chloride (Vnk-Fhgs-Tsd M20) 20 mEq oral tablet, extended release) [...] for choosing us for your care. Normal [facility] Lab Reportson 09-13-2023 Lab Reports [id number] #1.00TIFF Normal [facility] Mcc Recordson 09-12 Mcc Records [id number] #1.00TIFF [facility] Patient Educationon 09-13-19 Patient Education Urology [...] these instructions at home: Medicines ? Take xgwn-xwf-tvcqsje and prescription medicines only as told by [...] the blood stops without treatment. ? Take jlva-elz-pigosfo and prescription medicines only as told by your health care provider. ? Drink enough fluid to keep your urine pale yellow. This information is not intended to replace advice given to you by your health care provider. Make sure you discuss any questions you have with your health care provider. Document Revised: 02/11/2021 Document Reviewed: 02/11/2021 Resident Research Patient Education ? 2022 [employer]. [facility] Transfer Inon 09-13-2023 Transfer In [id number] #1.00TIFF [facility] Urology Office/Clinic Noteon 09-13-2023 Urology Office/Clinic Note Chief Complaint Pt here today for cath change HPI Staff Dementia pt is here today for a catheter change. Resident @ [facility]. *Finasteride 5mg and Flomax 2 [...] Last documented cath change per [facility] in [place] notes was 04/15/23 (16fr coude) Review of [...] E&M of Est. Patient Low 20-29 Min 67706 Influenza immunization status assessed 1030F Insertion of temp indwelling bladder cath, fractured cath, altered anatomy, complicated 88905 Medication list documented in medical record [id number] [...] E&M of Est. Patient Low 20-29 Min 82299 Insertion of temp indwelling bladder cath, fractured cath, altered anatomy, complicated 78400 3. Gross hematuria (R31.0: Gross hematuria) with removal of previous pedroza. likely due to encrustation as this pedroza has been in place >3 mos. advised ECF may see hematuria in pedroza for next few days. increase fluids. ok as long as it's draining. Ordered: E&M of Est. Patient Low 20-29 Min 60436 Insertion of temp indwelling bladder cath, fractured cath, altered anatomy, complicated 14243 4. 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 Patient Low 20-29 Min 56364 5. Paraphimosis (N47.2: Paraphimosis) review of external records: did have 1 episode of paraphimosis previously foreskin pulled back for procedure and replaced appropriately after pedroza inserted. Ordered: E&M of Est. Patient Low 20-29 Min 54805 Follow-up With When Contact Information 4 weeks [place] location for pedroza change w LIDA Additional [...] 40 mg (more content not included)... Normal [facility] Comment on above: Result Comment: Elec tronically Signed By: SANDY CESAR PA-C\.br\Date and Time Signed: 09/13/23 10:17 EDT Transfer Inon 09-08-2023 Transfer In [id number] #1.00TIFF Normal [facility] Transfer In [id number] #1.00TIFF [facility] Ambulatory Visit Summaryon 0 09-06-2023 Ambulatory [...] SANDY CESAR PA-C, URL When: Where: [address] [facility] [place] [address] Medications What When Instructions Unchanged alprazolam (alprazolam [...] you for choosing us for your care. [facility] Auth for Release of Medical Recordson 09-06-2023 Auth for Release of Medical Records [id number] #1.00TIFF [facility] Insurance Correspondence Off iceon 09-06-2023 Insurance Correspondence Office [id number] #1.00TIFF [facility] Mcc Recordson 09-05 Mcc Records [id number] #1.00TIFF [facility] Patient Correspondenceon Patient Correspondence [id number] #1.00TIFF [facility] Patient Educationon 09-06-19 Patient Education Nephrology [...] these instructions at home: Medicines ? Take kwln-vyr-rszjrad and prescription medicines only as told by [...] ask your (more content not included)... 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 did attempt to speak w [facility] for consent/to confirm the plan but went straight to voicemail. did leave message w [facility] phone # requesting he call. once we can confirm consent we will need to r/s pt for ov for pedroza change. may be difficult due to encrustation since current pedroza seems to have been in at least a few months. per PCP note - daughter was flushing cath once weekly w 10ml syringes provided by urology office. [facility] staff state they have been flushing it in house. Ordered: E&M of New Patient High 60-74 Min 94813 2. BPH with urinary obstruction (N40.1: Benign prostatic hyperplasia with lower urinary tract symptoms) on finasteride 5mg and flomax 2 caps/day per AUG Ordered: E&M of New Patient High 60-74 Min 13388 3. Frequent UTI (N39.0: Urinary tract infection, site not specified) on Augmentin x7d Apr 2023 (no cx for review) cx 08/24/23 - serratia 100k, e coli 100kon Cipro x7d 08/26-09/02 per ECF staff gets UTIs all the time Ordered: E&M of New Patient High 60-74 Min 40148 4. History of Clostridium difficile infection (Z86.19: Personal history of other infectious and parasitic diseases) October 2022 per former PCP notes. PCP gave 5d oral vanco for c.diff prophylaxis w acute UTI tx in Apr 2023. Ordered: E&M of New Patient High 60-74 Min 06537 5. Dementia (F03.90: Unspecified dementia, unspecified severity, without behavioral disturbance, psychotic disturbance, mood disturbance, and anxiety) per PMH. pt is poor historian, minimal responses. Ordered: E&M of New Patient High 60-74 Min 28503 6. CKD (chronic kidney disease) stage 3, GFR 30-59 ml/min (N18.30: Chronic kidney disease, stage 3 unspecified) CKD stage 3 listed in PMH. CrCl 27 per PCP note 05/17/23. 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 Follow-up With When Contact Information RASENIO GUIDO, SANDY Jain, URL [address] [place] [address] Additional Instructions: schedule cath change once we [...] Family History Family history is unknown Normal [facility] Comment on above: Result Comment: Elec tronically Signed By: ARSENIO GUIDO, SANDY Jain\.br\Date and Time Signed: 09/06/23 12:18 EDT ALL AMMONIAon 08-01-2023 Ammonia (P) [Moles/Vol] 35 umol/L High 11 - 32 umol/L [facility] Interpretation and review of laboratory results Abnormal [facility] Healthcar e Basic Metabolic Panelon 10-0 Anion gap [Moles/Vol] 13 mmol/L 9 - 17 mmol/L [place] Bun/Cre Ratio NOT REPORTED [place] Calcium [Mass/Vol] 9.3 mg/dL 8.6 - 10. 4 mg/dL [place] Chloride [Moles/Vol] 99 mmol/L 98 - 10 7 mmol/L [place] CO2 [Moles/Vol] 24 mmol/L 20 - 31 mmol/L [place] Creatinine [Mass/Vol] 2.75 mg/dL High 0.7 - 1.2 mg/dL [place] GFR 27 mL/min Low >60 [place] GFR Non- 22 mL/min Low >60 [place] GFR/1.73 sq M predicted among non-blacks MDRD (S/P/Bld) [Vol rate/Area] NOT REPORTED [place] GFR/1.73 sq M predicted among non-blacks MDRD (S/P/Bld) [Vol rate/Area] [place] Comment on above: Average GFR for 70 o r more years old: 75 mL/min/1.73sq m Chronic Kidney Disease: <60 mL/min/1.73sq m Kidney failure: <15 mL/min/1.73sq m eGFR calculated using average adult body mass. Additional eGFR calculator available at: http://www.[employer]asharJobs/multiple_crcl_2012.htm Glucose [Mass/Vol] 92 mg/dL 70 - 99 mg/dL [place], [place] Interpretation and review of laboratory results Abnormal [place] Potassium [Moles/Vol] 5.2 mmol/L 3.7 - 5.3 mmol/L [place] Sodium [Moles/Vol] 136 mmol/L 135 - 144 mmol/L [place] Urea nitrogen [Mass/Vol] 61 mg/dL High 8 - 23 mg/dL [place] Basic Metabolic Profon 03-27 (cont.) Normal [facility] Comment on above: Result Comment: Aver age GFR for 70 or more years old: 75 mL/min/1.73sq m Chronic Kidney Disease: <60 mL/min/1.73sq m Kidney failure: <15 mL/min/1.73sq m eGFR calculated using average adult body mass. Additional eGFR calculator available at: http://www.[employer]/multiple_crcl_2012.htm Performed By: #### H H, BMP #### [facility] [address] [facility] [place] [address] Vocational Aide: Con Oseguera MD Anion gap [Moles/Vol] 13 mmol/L Normal 9-17 [facility] Comment on above: Performed By: #### H H, BMP #### [facility] [address] [facility] [place] [address] Vocational Aide: Con Oseguera MD Calcium [Mass/Vol] 9.3 mg/dL Normal 8.6-10.4 [facility] Comment on above: Performed By: #### H H, BMP #### [facility] [address] [place] [address] Vocational Aide: Con Oseguera MD Chloride [Moles/Vol] 99 mmol/L Normal 98-107 [facility] Comment on above: Performed By: #### H H, BMP #### [facility] [address] [place] [address] Vocational Aide: Con Oseguera MD CO2 [Moles/Vol] 24 mmol/L Normal 20-31 [facility] Comment on above: Performed By: #### H H, BMP #### [facility] [place] [address] Vocational Aide: Con Oseguera MD Creatinine [Mass/Vol] 2.75 mg/dL High 0.70-1.20 [facility] Comment on above: Performed By: #### H H, BMP #### [facility] [address] [place] [address] Vocational Aide: Con Oseguera MD GFR, Amer 27 mL/min Low >60 [facility] Comment on above: Performed By: #### H H, BMP #### [facility] [place] [address] Vocational Aide: Con Oseguera MD GFR,non Amer 22 mL/min Low >60 [facility] Comment on above: Performed By: #### H H, BMP #### [facility] [address] [place] [address] Vocational Aide: Con Oseguera MD Glucose [Mass/Vol] 92 mg/dL Normal 70-99 [facility] Comment on above: Performed By: #### H H, BMP #### [facility] [place] [address] Vocational Aide: Con Oseguera MD Potassium [Moles/Vol] 5.2 mmol/L Normal 3.7-5.3 [facility] Comment on above: Performed By: #### H H, BMP #### [facility] [address] [place] [address] Vocational Aide: Con Oseguera MD Sodium [Moles/Vol] 136 mmol/L Normal 135-144 [facility] Comment on above: Performed By: #### H H, BMP #### [facility] [address] [place] [address] Vocational Aide: Con Oseguera MD Urea nitrogen [Mass/Vol] 61 mg/dL High 8-23 [facility] Comment on above: Performed By: #### H H, BMP #### [facility] [address] [facility] [place] [address] Vocational Aide: Con Oseguera MD BUN/CRE Ratio NOT REPORTED Normal 9-20 [facility] Comment on above: Performed By: #### H H, BMP #### [facility] [address] [facility] [place] [address] Vocational Aide: Con Oseguera MD Staging: NOT REPORTED Normal [facility] Comment on above: Performed By: #### H H, BMP #### [facility] [address] [facility] [place] [address] Vocational Aide: Con Oseguera MD CBC Auto Differentialon 10-0 Basophils (Bld) [#/Vol] 0.08 10*3/uL [facility], [place] Basophils/100 WBC (Bld) 1 % 0 - 2 % [facility] Differential Type NOT REPORTED [place] Eosinophils (Bld) [#/Vol] 0.39 10*3/uL [facility], [place] Eosinophils/100 WBC (Bld) 5 % High 0 - 4 % [place] Erythrocyte distribution width (RBC) [Ratio] 28.8 % High 11.5 - 14.9 % [place] Hematocrit (Bld) [Volume fraction] 33.5 % Low 41 - 53 % [place] Hemoglobin (Bld) [Mass/Vol] 10.5 g/dL Low 13.5 - 17.5 g/dL [place] Interpretation and review of laboratory results Abnormal [place] Lymphocytes (Bld) [#/Vol] 2.00 10*3/uL [place] Lymphocytes/100 WBC (Bld) 26 % 24 - 44 % [place] MCH (RBC) [Entitic mass] 23.6 pg Low 26 - 34 pg [place] MCHC (RBC) [Mass/Vol] 31.3 g/dL 31 - 37 g/dL [place] MCV (RBC) [Entitic vol] 75.4 fL Low 80 - 100 fL [place] Monocytes (Bld) [#/Vol] 0.69 10*3/uL [place] Monocytes/100 WBC (Bld) 9 % High 1 - 7 % [place] Morphology Theo (Bld) [Interp] 1+ ELLIPTOCYTES [place] Morphology Theo (Bld) [Interp] 1+ ECHINOCYTES [place] Morphology Theo (Bld) [Interp] ANISOCYTOSIS PRESENT [place] Platelet mean volume (Bld) [Entitic vol] 8.9 fL 6 - 12 fL [place] Platelets (Bld) [#/Vol] NOT REPORTED [place] Platelets (Bld) [#/Vol] 305 10*3/uL [place] RBC (Bld) [#/Vol] 4.44 10*6/uL Low 4.5 - 5.9 m/uL [place] RBC morphology finding Nom (Bld) NOT REPORTED [place] Segmented neutrophils/100 WBC (Bld) 59 % 36 - 66 % [place] Segs Absolute 4.54 [place] WBC (Bld) [#/Vol] NOT REPORTED per 100 WBC [place] WBC (Bld) [#/Vol] 7.7 10*3/uL [place] WBC Morphology NOT REPORTED [place] CBC with Diffon 03-27-2019 Abs. Basophil 0.08 k/uL Normal 0.0-0.2 [facility] Comment on above: Performed By: #### H H, BMP #### [facility] [address] [facility] [place] [address] Vocational Aide: Con Oseguera MD Abs.Neutrophil (Seg) 4.54 k/uL Normal 1.3-9.1 [facility] Comment on above: Performed By: #### H H, BMP #### [facility] [address] [facility] [place] [address] Vocational Aide: Con Oseguera MD Basophils/100 WBC (Bld) 1 % Normal 0-2 [facility] Comment on above: Performed By: #### H H, BMP #### [facility] [facility] [place] [address] Vocational Aide: Con Oseguera MD Eosinophils (Bld) [#/Vol] 0.39 10*3/uL Normal 0.0-0.4 [facility] Comment on above: Performed By: #### H H, BMP #### [facility] [facility] [place] [address] Vocational Aide: Con Oseguera MD Eosinophils/100 WBC (Bld) 5 % High 0-4 [facility] Comment on above: Performed By: #### H H, BMP #### [facility] [facility] [place] [address] Vocational Aide: Con Oseguera MD Lymphocytes (Bld) [#/Vol] 2.00 10*3/uL Normal 1.0-4.8 [facility] Comment on above: Performed By: #### H H, BMP #### [facility] [address] [place] [address] Vocational Aide: Con Oseguera MD Lymphocytes/100 WBC (Bld) 26 % Normal 24-44 [facility] Comment on above: Performed By: #### H H, BMP #### [facility] [address] [place] [address] Vocational Aide: Con Oseguera MD Monocytes (Bld) [#/Vol] 0.69 10*3/uL Normal 0.1-1.3 [facility] Comment on above: Performed By: #### H H, BMP #### [facility] [address] [place] [address] Vocational Aide: Con Oseguera MD Monocytes/100 WBC (Bld) 9 % High 1-7 [facility] Comment on above: Performed By: #### H H, BMP #### [facility] [address] [place] [address] Vocational Aide: Con Oseguera MD Morphology Theo (Bld) [Interp] ANISOCYTOSIS PRESENT Normal [facility] Comment on above: Result Comment: 1+ ELLIPTOCYTES 1+ ECHINOCYTES Performed By: #### H H, BMP #### [facility] [facility] [place] [address] Vocational Aide: Con Oseguera MD Neutrophil (Seg) 59 % Normal 36-66 [facility] Comment on above: Performed By: #### H H, BMP #### [facility] [facility] [place] [address] Vocational Aide: Con Oseguera MD Erythrocyte distribution width (RBC) [Ratio] 28.8 % High 11.5-14.9 [facility] Comment on above: Performed By: #### H H, BMP #### [facility] [address] [facility] [place] [address] Vocational Aide: Con Oseguera MD Hematocrit (Bld) [Volume fraction] 33.5 % Low 41-53 [facility] Comment on above: Performed By: #### H H, BMP #### [facility] [facility] [place] [address] Vocational Aide: Con Oseguera MD Hemoglobin (Bld) [Mass/Vol] 10.5 g/dL Low 13.5-17.5 [facility] Comment on above: Performed By: #### H H, BMP #### [facility] [address] [place] [address]. [place] [address] Vocational Aide: Con Oseguera MD MCH (RBC) [Entitic mass] 23.6 pg Low 26-34 [facility] Comment on above: Performed By: #### H H, BMP #### [facility] [facility] [place] [address] Vocational Aide: Con Oseguera MD MCHC (RBC) [Mass/Vol] 31.3 g/dL Normal 31-37 [facility] Comment on above: Performed By: #### H H, BMP #### [facility] [address] [place] [address]. [place] [address] Vocational Aide: Con Oseguera MD MCV (RBC) [Entitic vol] 75.4 fL Low 80-100 [facility] Comment on above: Performed By: #### H H, BMP #### [facility] [facility] [place] [address] Vocational Aide: Con Oseguera MD Platelet mean volume (Bld) [Entitic vol] 8.9 fL Normal 6.0-12.0 [facility] Comment on above: Performed By: #### H H, BMP #### [facility] [address] [place], [place] [address] [place] [address] Vocational Aide: Con Oseguera MD Platelets (Bld) [#/Vol] 305 10*3/uL Normal 150-450 [facility] Comment on above: Performed By: #### H H, BMP #### [facility] [address] [place] [address] Vocational Aide: Con Oseguera MD RBC (Bld) [#/Vol] 4.44 10*6/uL Low 4.5-5.9 [facility] Comment on above: Performed By: #### H H, BMP #### [facility] [facility] [place] [address] Vocational Aide: Con Oseguera MD WBC (Bld) [#/Vol] 7.7 10*3/uL Normal 3.5-11.0 [facility] Comment on above: Performed By: #### H H, BMP #### [facility] [facility] [place] [address] Vocational Aide: Con Oseguera MD Abs.Imm.Granulocyte NOT REPORTED Normal 0.00-0.30 [facility] Comment on above: Performed By: #### H H, BMP #### [facility] [facility] [place] [address] Vocational Aide: Con Oseguera MD Auto Diff Performed NOT REPORTED Normal [facility] Comment on above: Performed By: #### H H, BMP #### [facility] [facility] [place] [address] Vocational Aide: Con Oseguera MD Immature granulocytes (Bld) [#/Vol] NOT REPORTED Normal 0 [facility] Comment on above: Performed By: #### H H, BMP #### [facility] [facility] [place] [address] Vocational Aide: Con Oseguera MD NRBC Automated NOT REPORTED Normal [facility] Comment on above: Performed By: #### H H, BMP #### [facility] [address] [facility] [place] [address] Vocational Aide: Con Oseguera MD Platelets (Bld) [#/Vol] NOT REPORTED Normal [facility] Comment on above: Performed By: #### H H, BMP #### [facility] [address] [facility] [place] [address] Vocational Aide: Con Oseguera MD RBC morphology finding Nom (Bld) NOT REPORTED Normal [facility] Comment on above: Performed By: #### H H, BMP #### [facility] [address] [facility] [place] [address] Vocational Aide: Con Oseguera MD WBC Morphology NOT REPORTED Normal [facility] Comment on above: Performed By: #### H H, BMP #### [facility] [address] [facility] [place] [address] Vocational Aide: Con Oseguera MD Otheron 03-27-2019 Immature granulocytes [...] Observations UA NOT REPORTED NOT REQ. [facility] [place] [place] RBC (U) [#/Vol] 20 TO 50 /HPF [facility] [place] Renal Epithelial, Urine NOT REPORTED 0 /HPF [facility] [place] Trichomonas, UA NOT REPORTED None [facility] [place] WBC, UA 0 TO 2 /HPF [facility] [place] Yeast, UA NOT REPORTED None [facility] [place] - [facility], [place] Otheron 03-16-2019 Casts UA /LPF [facility], [place] UA w/Reflex Cultureon 2018 Acetoacetic Acid,Ur Negative Normal NEG [facility] Comment on above: Performed By: #### H H, BMP #### [facility] [address] [facility] [place] [address] Vocational Aide: Con Oseguera MD Bilirubin, SemiQt,Ur Negative Normal NEG [facility] Comment on above: Performed By: #### H H, BMP #### [facility] [address] [facility] [place] [address] Vocational Aide: Con Oseguera MD Color (U) YELLOW Normal YEL [facility] Comment on above: Performed By: #### H H, BMP #### [facility] [address] [place] [address] Vocational Aide: Con Oseguera MD Glucose Ql (U) Negative Normal NEG [facility] Comment on above: Performed By: #### H H, BMP #### [facility] [address] [facility] [place] [address] Vocational Aide: Con Oseguera MD Hemoglobin, Ur SMALL Abnormal NEG [facility] Comment on above: Performed By: #### H H, BMP #### [facility] [address] [facility] [place] [address] Vocational Aide: Con Oseguera MD Leukocyte esterase Test strip Ql (U) Negative Normal NEG [facility] Comment on above: Performed By: #### H H, BMP #### [facility] [address] [place] [address] Vocational Aide: Con Oseguera MD Nitrite,Ur Negative Normal NEG [facility] Comment on above: Performed By: #### H H, BMP #### [facility] [address] [place] [address] Vocational Aide: Con Oseguera MD pH (U) 6.5 [pH] Normal 5.0-8.0 [facility] Comment on above: Performed By: #### H H, BMP #### [facility] [address] [facility] [place] [address] Vocational Aide: Con Oseguera MD Protein Ql (U) Negative Normal NEG [facility] Comment on above: Performed By: #### H H, BMP #### [facility] [place] [address] Vocational Aide: Con Oseguera MD Specific gravity (U) [Rel density] 1.008 Normal 1.000-1.030 [facility] Comment on above: Performed By: #### H H, BMP #### [facility] [place] [address] Vocational Aide: Con Oseguera MD Turbidity CLEAR Normal CLEAR [facility] Comment on above: Performed By: #### H H, BMP #### [facility] [address] [facility] [place] [address] Vocational Aide: Con Oseguera MD Urobilinogen,Ur Normal Normal NORM [facility] Comment on above: Performed By: #### H H, BMP #### [facility] [place] [address] Vocational Aide: Con Oseguera MD Comment NOT REPORTED Normal [facility] Comment on above: Performed By: #### H H, BMP #### [facility] [place] [address] Vocational Aide: Con Oseguera MD Urinalysis Reflex to Culture on 03-16-2019 Bilirubin Urine Negative NEGATIVE [facility] [place] Color, UA YELLOW YELLOW [facility], [place] Glucose, Ur Negative NEGATIVE [facility], [place] Interpretation and review of laboratory results Abnormal [facility], [place] Ketones Ql (U) Negative NEGATIVE [facility] [place], [place] Leukocyte esterase Test strip Ql (U) Negative NEGATIVE [facility], [place] Nitrite, Urine Negative NEGATIVE [facility], [place] pH, UA 6.5 [facility], [place] Protein (U) [Mass/Vol] Negative NEGATIVE [facility], [place] Specific [place], UA 1.008 [facility], [place] Turbidity UA CLEAR CLEAR [facility], [place] Urinalysis Comments NOT REPORTED [facility], [place] Urine Hgb SMALL Abnormal NEGATIVE [facility], [place] Urobilinogen, Urine Normal Normal [place], [place] Urinalysis,Microon 9 ----- Normal [facility] Comment on above: Performed By: #### H H, BMP #### [facility] [address] [place] [address] Vocational Aide: Con Oseguera MD Epithelial cells LM.HPF (Urine sed) [#/Area] 0 TO 2 Normal [facility] Comment on above: Performed By: #### H H, BMP #### [facility] [address] [place] [address] Vocational Aide: Con Oseguera MD RBC (U) [#/Vol] 20 TO 50 Normal [facility] Comment on above: Performed By: #### H H, BMP #### [facility] [address] [place] [address] Vocational Aide: Con Oseguera MD WBC (U) [#/Vol] 0 TO 2 Normal [facility] Comment on above: Performed By: #### H H, BMP #### [facility] [address] [place] [address] Vocational Aide: Con Oseguera MD Amorphous sediment LM Ql (Urine sed) NOT REPORTED Normal NONE [facility] Comment on above: Performed By: #### H H, BMP #### [facility] [address] [place] [address] Vocational Aide: Con Oseguera MD Bacteria LM.HPF (Urine sed) [#/Area] NOT REPORTED Normal NONE [facility] Comment on above: Performed By: #### H H, BMP #### [facility] [address] [place] [address] Vocational Aide: Con Oseguera MD Casts LM.LPF (Urine sed) [#/Area] NOT REPORTED Normal [facility] Comment on above: Performed By: #### H H, BMP #### [facility] [address] [place] [address] Vocational Aide: Con Oseguera MD Crystals LM Nom (Urine sed) NOT REPORTED Normal NONE [facility] Comment on above: Performed By: #### H H, BMP #### [facility] [address] [place] [address] Vocational Aide: Con Oseguera MD Epithelial, Renal NOT REPORTED Normal 0 [facility] Comment on above: Performed By: #### H H, BMP #### [facility] [address] [place] [address] Vocational Aide: Con Oseguera MD Mucus Strands NOT REPORTED Normal NONE [facility] Comment on above: Performed By: #### H H, BMP #### [facility] [address] [place] [address] Vocational Aide: Con Oseguera MD Other Observations NOT REPORTED Normal NREQ [facility] Comment on above: Performed By: #### H H, BMP #### [facility] [address] [place] [address] Vocational Aide: Con Oseguera MD Trichomonas NOT REPORTED Normal NONE [facility] Comment on above: Performed By: #### H H, BMP #### [facility] [place] [address] Vocational Aide: Con Oseguera MD Yeast LM Ql (Urine sed) NOT REPORTED Normal NONE [facility] Comment on above: Performed By: #### H H, BMP #### [facility] [address] [place] [address] Vocational Aide: Con Oseguera MD Basic Metab w/rfx MGon 03-13 (cont.) Normal [facility] Comment on above: Result Comment: Aver age GFR for 70 or more years old: 75 mL/min/1.73sq m Chronic Kidney Disease: <60 mL/min/1.73sq m Kidney failure: <15 mL/min/1.73sq m eGFR calculated using average adult body mass. Additional eGFR calculator available at: http://www.BasharJobs/multiple_crcl_2012.htm Performed By: #### H H, BMP #### [facility] [address] [place] [address] Vocational Aide: Con Oseguera MD Anion gap [Moles/Vol] 12 mmol/L Normal 9-17 [facility] Comment on above: Performed By: #### H H, BMP #### [facility] [address] [place] [address] Vocational Aide: Con Oseguera MD Calcium [Mass/Vol] 9.2 mg/dL Normal 8.6-10.4 [facility] Comment on above: Performed By: #### H H, BMP #### [facility] [address] [place] [address] Vocational Aide: Con Oseguera MD Chloride [Moles/Vol] 105 mmol/L Normal 98-107 [facility] Comment on above: Performed By: #### H H, BMP #### [facility] [address] [place] [address] Vocational Aide: Con Oseguera MD CO2 [Moles/Vol] 26 mmol/L Normal 20-31 [facility] Comment on above: Performed By: #### H H, BMP #### [facility] [address] [place] [address] Vocational Aide: Con Oseguera MD Creatinine [Mass/Vol] 1.41 mg/dL High 0.70-1.20 [facility] Comment on above: Performed By: #### H H, BMP #### [facility] [place] [address] Vocational Aide: Con Oseguera MD GFR, Amer 58 mL/min Low >60 [facility] Comment on above: Performed By: #### H H, BMP #### [facility] [place] [address] Vocational Aide: Con Oseguera MD GFR,non Amer 48 mL/min Low >60 [facility] Comment on above: Performed By: #### H H, BMP #### [facility] [facility] [place] [address] Vocational Aide: Con Oseguera MD Glucose [Mass/Vol] 90 mg/dL Normal 70-99 [facility] Comment on above: Performed By: #### H H, BMP #### [facility] [facility] [place] [address] Vocational Aide: Con Oseguera MD Potassium [Moles/Vol] 4.1 mmol/L Normal 3.7-5.3 [facility] Comment on above: Performed By: #### H H, BMP #### [facility] [facility] [place] [address] Vocational Aide: Con Oseguera MD Sodium [Moles/Vol] 143 mmol/L Normal 135-144 [facility] Comment on above: Performed By: #### H H, BMP #### [facility] [address] [place] [address] Vocational Aide: Con Oseguera MD Urea nitrogen [Mass/Vol] 19 mg/dL Normal 8- [facility] Comment on above: Performed By: #### H H, BMP #### [facility] [address] [place] [address] Vocational Aide: Con Oseguera MD BUN/CRE Ratio NOT REPORTED Normal - [facility] Comment on above: Performed By: #### H H, BMP #### [facility] [address] [place] [address] Vocational Aide: Con Oseguera MD Staging: NOT REPORTED Normal [facility] Comment on above: Performed By: #### H H, BMP #### [facility] [address] [place] [address] Vocational Aide: Con Oseguera MD Basic Metabolic Panel w/ Ref milagros to MGon 03-13-2019 Anion gap [Moles/Vol] 12 mmol/L 9 - 17 mmol/L [place] Bun/Cre Ratio NOT REPORTED [facility], [place] Calcium [Mass/Vol] 9.2 mg/dL 8.6 - 10. 4 mg/dL [place] Chloride [Moles/Vol] 105 mmol/L 98 - 10 7 mmol/L [place] CO2 [Moles/Vol] 26 mmol/L 20 - 31 mmol/L [place] Creatinine [Mass/Vol] 1.41 mg/dL High 0.7 - 1.2 mg/dL [place] GFR 58 mL/min Low >60 [place], [place] GFR Non- 48 mL/min Low >60 [place] GFR/1.73 sq M predicted among non-blacks MDRD (S/P/Bld) [Vol rate/Area] [place], [place] Comment on above: Average GFR for 70 o r more years old: 75 mL/min/1.73sq m Chronic Kidney Disease: <60 mL/min/1.73sq m Kidney failure: <15 mL/min/1.73sq m eGFR calculated using average adult body mass. Additional eGFR calculator available at: http://www.BasharJobs/multiple_crcl_2011.htm GFR/1.73 sq M predicted among non-blacks MDRD (S/P/Bld) [Vol rate/Area] NOT REPORTED [place] Glucose [Mass/Vol] 90 mg/dL 70 - 99 mg/dL [place], [place] Interpretation and review of laboratory results Abnormal [place] Potassium [Moles/Vol] 4.1 mmol/L 3.7 - 5.3 mmol/L [place] Sodium [Moles/Vol] 143 mmol/L 135 - 144 mmol/L [place] Urea nitrogen [Mass/Vol] 19 mg/dL 8 - 23 mg/dL [place] POC Glucose Fingerstickon Glucose [Mass/Vol] 195 mg/dL High 75 - 110 mg/dL [place], [place] Interpretation and review of laboratory results Abnormal [place] Glucose [Mass/Vol] 79 mg/dL 75 - 110 mg/dL [place] Basic Metab w/rfx MGon 03-12 (cont.) Normal [facility] Comment on above: Result Comment: Aver age GFR for 70 or more years old: 75 mL/min/1.73sq m Chronic Kidney Disease: <60 mL/min/1.73sq m Kidney failure: <15 mL/min/1.73sq m eGFR calculated using average adult body mass. Additional eGFR calculator available at: http://www.BasharJobs/multiple_crcl_2011.htm Performed By: #### H H, BMP #### [facility] [address] [place] [address] Vocational Aide: Con Oseguera MD Anion gap [Moles/Vol] 11 mmol/L Normal 9-17 [facility] Comment on above: Performed By: #### H H, BMP #### [facility] [address] [place] [address] Vocational Aide: Con Oseguera MD Calcium [Mass/Vol] 9.2 mg/dL Normal 8.6-10.4 [facility] Comment on above: Performed By: #### H H, BMP #### [facility] [address] [place] [address] Vocational Aide: Con Oseguera MD Chloride [Moles/Vol] 108 mmol/L High 98-107 [facility] Comment on above: Performed By: #### H H, BMP #### [facility] [address] [place] [address] Vocational Aide: Con Oseguera MD CO2 [Moles/Vol] 26 mmol/L Normal 20-31 [facility] Comment on above: Performed By: #### H H, BMP #### [facility] [address] [place] [address] Vocational Aide: Con Oseguera MD Creatinine [Mass/Vol] 1.41 mg/dL High 0.70-1.20 [facility] Comment on above: Performed By: #### H H, BMP #### [facility] [address] [place] [address] Vocational Aide: Con Oseguera MD GFR, Amer 58 mL/min Low >60 [facility] Comment on above: Performed By: #### H H, BMP #### [facility] [address] [place] [address] Vocational Aide: Con Oseguera MD GFR,non Amer 48 mL/min Low >60 [facility] Comment on above: Performed By: #### H H, BMP #### [facility] [address] [place] [address] Vocational Aide: Cno Oseguera MD Glucose [Mass/Vol] 81 mg/dL Normal 70-99 [facility] Comment on above: Performed By: #### H H, BMP #### [facility] [address] [place] [address] Vocational Aide: Con Oseguera MD Potassium [Moles/Vol] 4.1 mmol/L Normal 3.7-5.3 [facility] Comment on above: Performed By: #### H H, BMP #### [facility] [place] [address] Vocational Aide: Con Oseguera MD Sodium [Moles/Vol] 145 mmol/L High 135-144 [facility] Comment on above: Performed By: #### H H, BMP #### [facility] [address] [place] [address] Vocational Aide: Con Oseguera MD Urea nitrogen [Mass/Vol] 20 mg/dL Normal 8-23 [facility] Comment on above: Performed By: #### H H, BMP #### [facility] [facility] [place] [address] Vocational Aide: Con Oseguera MD BUN/CRE Ratio NOT REPORTED Normal 9-20 [facility] Comment on above: Performed By: #### H H, BMP #### [facility] [address] [place] [address] Vocational Aide: Con Oseguera MD Staging: NOT REPORTED Normal [facility] Comment on above: Performed By: #### H H, BMP #### [facility] [address] [place] [address] Vocational Aide: Con Oseguera MD Basic Metabolic Panel w/ Ref milagros to MGon 03-12-2019 Anion gap [Moles/Vol] 11 mmol/L 9 - 17 mmol/L [place] Bun/Cre Ratio NOT REPORTED [place] Calcium [Mass/Vol] 9.2 mg/dL 8.6 - 10. 4 mg/dL [place] Chloride [Moles/Vol] 108 mmol/L High 98 - 10 7 mmol/L [place] CO2 [Moles/Vol] 26 mmol/L 20 - 31 mmol/L [place] Creatinine [Mass/Vol] 1.41 mg/dL High 0.7 - 1.2 mg/dL [place] GFR 58 mL/min Low >60 [place], [place] GFR Non- 48 mL/min Low >60 [place] GFR/1.73 sq M predicted among non-blacks MDRD (S/P/Bld) [Vol rate/Area] NOT REPORTED [place] GFR/1.73 sq M predicted among non-blacks MDRD (S/P/Bld) [Vol rate/Area] [place] Comment on above: Average GFR for 70 o r more years old: 75 mL/min/1.73sq m Chronic Kidney Disease: <60 mL/min/1.73sq m Kidney failure: <15 mL/min/1.73sq m eGFR calculated using average adult body mass. Additional eGFR calculator available at: http://www.Tynt.Anita Margarita/multiple_crcl_2012.htm Glucose [Mass/Vol] 81 mg/dL 70 - 99 mg/dL [place] Interpretation and review of laboratory results Abnormal [place] Potassium [Moles/Vol] 4.1 mmol/L 3.7 - 5.3 mmol/L [place] Sodium [Moles/Vol] 145 mmol/L High 135 - 144 mmol/L [place] Urea nitrogen [Mass/Vol] 20 mg/dL 8 - 23 mg/dL [place] POC Glucose Fingerstickon Glucose [Mass/Vol] 285 mg/dL High 75 - 110 mg/dL [place] Interpretation and review of laboratory results Abnormal [place] Glucose [Mass/Vol] 286 mg/dL High 75 - 110 mg/dL [place], [place] Interpretation and review of laboratory results Abnormal [place] Glucose [Mass/Vol] 264 mg/dL High 75 - 110 mg/dL [place] Interpretation and review of laboratory results Abnormal [place] Glucose [Mass/Vol] 72 mg/dL Low 75 - 110 mg/dL [place] Interpretation and review of laboratory results Abnormal [place] Basic Metab w/rfx MGon 03-11 (cont.) Normal [facility] Comment on above: Result Comment: Aver age GFR for 70 or more years old: 75 mL/min/1.73sq m Chronic Kidney Disease: <60 mL/min/1.73sq m Kidney failure: <15 mL/min/1.73sq m eGFR calculated using average adult body mass. Additional eGFR calculator available at: http://www.Tynt.Anita Margarita/multiple_crcl_2012.htm Performed By: #### H H, BMP #### [facility] [address] [facility] [place], [place] [id number] Vocational Aide: Con Oseguera MD Anion gap [Moles/Vol] 10 mmol/L Normal 9-17 [facility] Comment on above: Performed By: #### H H, BMP #### [facility] [address] [facility] [place], [place] [id number] Vocational Aide: Con Oseguera MD Calcium [Mass/Vol] 9.3 mg/dL Normal 8.6-10.4 [facility] Comment on above: Performed By: #### H H, BMP #### [facility] [address] [facility] [place] [address] Vocational Aide: Con Oseguera MD Chloride [Moles/Vol] 104 mmol/L Normal 98-107 [facility] Comment on above: Performed By: #### H H, BMP #### [facility] [address] [place] [address] Vocational Aide: Con Oseguera MD CO2 [Moles/Vol] 26 mmol/L Normal 20-31 [facility] Comment on above: Performed By: #### H H, BMP #### [facility] [place] [address] Vocational Aide: Con Oseguera MD Creatinine [Mass/Vol] 1.49 mg/dL High 0.70-1.20 [facility] Comment on above: Performed By: #### H H, BMP #### [facility] [address] [place] [address]. [place] [address] Vocational Aide: Con Oseguera MD GFR, Amer 55 mL/min Low >60 [facility] Comment on above: Performed By: #### H H, BMP #### [facility] [place] [address] Vocational Aide: Con Oseguera MD GFR,non Amer 45 mL/min Low >60 [facility] Comment on above: Performed By: #### H H, BMP #### [facility] [place] [address] Vocational Aide: Con Oseguera MD Glucose [Mass/Vol] 78 mg/dL Normal 70-99 [facility] Comment on above: Performed By: #### H H, BMP #### [facility] [place] [address] Vocational Aide: Con Oseguera MD Potassium [Moles/Vol] 4.0 mmol/L Normal 3.7-5.3 [facility] Comment on above: Performed By: #### H H, BMP #### [facility] [address] [facility] [place] [address] Vocational Aide: Con Oseguera MD Sodium [Moles/Vol] 140 mmol/L Normal 135-144 [facility] Comment on above: Performed By: #### H H, BMP #### [facility] [address] [facility] [place] [address] Vocational Aide: Con Oseguera MD Urea nitrogen [Mass/Vol] 22 mg/dL Normal 8-23 [facility] Comment on above: Performed By: #### H H, BMP #### [facility] [address] [facility] [place] [address] Vocational Aide: Con Oseguera MD BUN/CRE Ratio NOT REPORTED Normal 9-20 [facility] Comment on above: Performed By: #### H H, BMP #### [facility] [address] [facility] [place] [address] Vocational Aide: Con Oseguera MD Staging: NOT REPORTED Normal [facility] Comment on above: Performed By: #### H H, BMP #### [facility] [address] [facility] [place] [address] Vocational Aide: Con Oseguera MD Basic Metabolic Panel w/ Ref milagros to MGon 03-11-2019 Anion gap [Moles/Vol] 10 mmol/L 9 - 17 mmol/L [facility], [place] Bun/Cre Ratio NOT REPORTED [facility], [place] Calcium [Mass/Vol] 9.3 mg/dL 8.6 - 10. 4 mg/dL [facility], [place] Chloride [Moles/Vol] 104 mmol/L 98 - 10 7 mmol/L [facility], [place] CO2 [Moles/Vol] 26 mmol/L 20 - 31 mmol/L [facility], [place] Creatinine [Mass/Vol] 1.49 mg/dL High 0.7 - 1.2 mg/dL [place] GFR 55 mL/min Low >60 [place] GFR Non- 45 mL/min Low >60 [place] GFR/1.73 sq M predicted among non-blacks MDRD (S/P/Bld) [Vol rate/Area] [place] Comment on above: Average GFR for 70 o r more years old: 75 mL/min/1.73sq m Chronic Kidney Disease: <60 mL/min/1.73sq m Kidney failure: <15 mL/min/1.73sq m eGFR calculated using average adult body mass. Additional eGFR calculator available at: http://www.BasharJobs/multiple_crcl_2011.htm GFR/1.73 sq M predicted among non-blacks MDRD (S/P/Bld) [Vol rate/Area] NOT REPORTED [place] Glucose [Mass/Vol] 78 mg/dL 70 - 99 mg/dL [place], [place] Interpretation and review of laboratory results Abnormal [place] Potassium [Moles/Vol] 4.0 mmol/L 3.7 - 5.3 mmol/L [place] Sodium [Moles/Vol] 140 mmol/L 135 - 144 mmol/L [place] Urea nitrogen [Mass/Vol] 22 mg/dL 8 - 23 mg/dL [place] POC Glucose Fingerstickon Glucose [Mass/Vol] 213 mg/dL High 75 - 110 mg/dL [place] Interpretation and review of laboratory results Abnormal [place] Glucose [Mass/Vol] 139 mg/dL High 75 - 110 mg/dL [place] Interpretation and review of laboratory results Abnormal [place] Glucose [Mass/Vol] 195 mg/dL High 75 - 110 mg/dL [place] Interpretation and review of laboratory results Abnormal [place] Glucose [Mass/Vol] 73 mg/dL Low 75 - 110 mg/dL [place] Interpretation and review of laboratory results Abnormal [place] XR CHEST (2 VW)on 03-11-2019 XR [...] Maxwell Chaudhry MD 03/11/19 Final result Normal [facility] XR CHEST STANDARD (2 VW)on 0 03-11-2019 [...] stable. No acute osseous abnormality is seen. [facility] [place] 1. Stable bibasilar pulmonary opacities that may reflect atelectasis or pneumonia. 2. Stable small left pleural effusion. [place], [place] Stan, Mhpn Incoming Radiant Results From [facility] - 03/11/2019 2:19 PM EDT EXAMINATION: TWO [...] pneumonia. 2. Stable small left pleural effusion. [place] Basic Metab w/rfx MGon 03-10 (cont.) Normal [facility] Comment on above: Result Comment: Aver age GFR for 70 or more years old: 75 mL/min/1.73sq m Chronic Kidney Disease: <60 mL/min/1.73sq m Kidney failure: <15 mL/min/1.73sq m eGFR calculated using average adult body mass. Additional eGFR calculator available at: http://www.Tynt.Anita Margarita/multiple_crcl_2011.htm Performed By: #### B MP #### [facility] [address] [facility] [place] [address] Vocational Aide: Con Oseguera MD Anion gap [Moles/Vol] 12 mmol/L Normal 9-17 [facility] Comment on above: Performed By: #### B MP #### [facility] [place] [address] Vocational Aide: Con Oseguera MD Calcium [Mass/Vol] 9.3 mg/dL Normal 8.6-10.4 [facility] Comment on above: Performed By: #### B MP #### [facility] [place] [address] Vocational Aide: Con Oseguera MD Chloride [Moles/Vol] 102 mmol/L Normal 98-107 [facility] Comment on above: Performed By: #### B MP #### [facility] [address] [facility] [place] [address] Vocational Aide: Con Oseguera MD CO2 [Moles/Vol] 27 mmol/L Normal 20-31 [facility] Comment on above: Performed By: #### B MP #### [facility] [place] [address] Vocational Aide: Con Oseguera MD Creatinine [Mass/Vol] 1.69 mg/dL High 0.70-1.20 [facility] Comment on above: Performed By: #### B MP #### [facility] [address] [place] [address] Vocational Aide: Con Oseguera MD GFR, Amer 47 mL/min Low >60 [facility] Comment on above: Performed By: #### B MP #### [facility] [address] [place] [address] Vocational Aide: Con Oseguera MD GFR,non Amer 39 mL/min Low >60 [facility] Comment on above: Performed By: #### B MP #### [facility] [address] [place] [address] Vocational Aide: Con Oseguera MD Glucose [Mass/Vol] 87 mg/dL Normal 70-99 [facility] Comment on above: Performed By: #### B MP #### [facility] [address] [place] [address] Vocational Aide: Con Oseguera MD Potassium [Moles/Vol] 4.2 mmol/L Normal 3.7-5.3 [facility] Comment on above: Performed By: #### B MP #### [facility] [address] [place] [address] Vocational Aide: Con Oseguera MD Sodium [Moles/Vol] 141 mmol/L Normal 135-144 [facility] Comment on above: Performed By: #### B MP #### [facility] [address] [place] [address] Vocational Aide: Con Oseguera MD Urea nitrogen [Mass/Vol] 24 mg/dL High 8-23 [facility] Comment on above: Performed By: #### B MP #### [facility] [address] [place] [address] Vocational Aide: Con Oseguera MD BUN/CRE Ratio NOT REPORTED Normal 9-20 [facility] Comment on above: Performed By: #### B MP #### [facility] [address] [place] [address] Vocational Aide: Con Oseguera MD Staging: NOT REPORTED Normal [facility] Comment on above: Performed By: #### B MP #### [facility] [address] [place] [address] Vocational Aide: Con Oseguera MD Basic Metabolic Panel w/ Ref milagros to MGon 03-10-2019 Anion gap [Moles/Vol] 12 mmol/L 9 - 17 mmol/L [place] Bun/Cre Ratio NOT REPORTED [place] Calcium [Mass/Vol] 9.3 mg/dL 8.6 - 10. 4 mg/dL [place] Chloride [Moles/Vol] 102 mmol/L 98 - 10 7 mmol/L [place] CO2 [Moles/Vol] 27 mmol/L 20 - 31 mmol/L [place] Creatinine [Mass/Vol] 1.69 mg/dL High 0.7 - 1.2 mg/dL [place] GFR 47 mL/min Low >60 [place], [place] GFR Non- 39 mL/min Low >60 [place] GFR/1.73 sq M predicted among non-blacks MDRD (S/P/Bld) [Vol rate/Area] NOT REPORTED [place] GFR/1.73 sq M predicted among non-blacks MDRD (S/P/Bld) [Vol rate/Area] [place] Comment on above: Average GFR for 70 o r more years old: 75 mL/min/1.73sq m Chronic Kidney Disease: <60 mL/min/1.73sq m Kidney failure: <15 mL/min/1.73sq m eGFR calculated using average adult body mass. Additional eGFR calculator available at: http://www.Tynt.Anita Margarita/multiple_crcl_2012.htm Glucose [Mass/Vol] 87 mg/dL 70 - 99 mg/dL [place] Interpretation and review of laboratory results Abnormal [place] Potassium [Moles/Vol] 4.2 mmol/L 3.7 - 5.3 mmol/L [place] Sodium [Moles/Vol] 141 mmol/L 135 - 144 mmol/L [place] Urea nitrogen [Mass/Vol] 24 mg/dL High 8 - 23 mg/dL [place] Digoxinon 03-10-2019 Digoxin [Mass/Vol] 0.6 ng/mL Normal 0.5-2.0 [facility] Comment on above: Result Comment: Digoxin Reference Range: Heart Failure 0.5-0.9 Atrial Fibrillation 0.8-2.0 Performed By: #### B MP #### [facility] [address] [facility] [place] [address] Vocational Aide: Con Oseguera MD Digoxin [Mass/Vol] 915 ng/mL Normal [facility] Comment on above: Performed By: #### B MP #### [facility] [address] [facility] [place], [place] [id number] Vocational Aide: Con Oseguera MD Digoxin [Mass/Vol] [id number] ng/mL Normal [facility] Comment on above: Performed By: #### B MP #### [facility] [address] [facility] [place] [address] Vocational Aide: Con Oseguera MD Digoxin [Mass/Vol] 125mct Normal [facility] Comment on above: Performed By: #### B MP #### [facility] [address] [facility] [place] [address] Vocational Aide: Con Oseguera MD Digoxin Levelon 03-10-2019 Digoxin Date Last Dose [id number] [place] Digoxin Dose Amount 125mct [place] Digoxin Dose Time 915 [place], [place] INR Coag (Bld) [Relative time] 0.6 ng/mL 0.5 - 2 ng/mL [place] Comment on above: Digoxin Reference Range: Heart Failure 0.5-0.9 Atrial Fibrillation 0.8-2.0 Magnesiumon 03-10-2019 Magnesium [Mass/Vol] 2.1 mg/dL Normal 1.6-2.6 [facility] Comment on above: Performed By: #### B MP #### [facility] [address] [facility] [place], [place] [id number] Vocational Aide: Con Oseguera MD Magnesium [Mass/Vol] 2.1 mg/dL 1.6 - 2 .6 mg/dL [place] POC Glucose Fingerstickon Glucose [Mass/Vol] 298 mg/dL High 75 - 110 mg/dL [place] Interpretation and review of laboratory results Abnormal [place] Glucose [Mass/Vol] 88 mg/dL 75 - 110 mg/dL [place] Glucose [Mass/Vol] 120 mg/dL High 75 - 110 mg/dL [place] Interpretation and review of laboratory results Abnormal [place] Glucose [Mass/Vol] 87 mg/dL 75 - 110 mg/dL [place] Basic Metab w/rfx MGon 03-09 (cont.) Normal [facility] Comment on above: Result Comment: Aver age GFR for 70 or more years old: 75 mL/min/1.73sq m Chronic Kidney Disease: <60 mL/min/1.73sq m Kidney failure: <15 mL/min/1.73sq m eGFR calculated using average adult body mass. Additional eGFR calculator available at: http://www.Tynt.com/multiple_crcl_2012.htm Performed By: #### B MP #### [facility] [address] [place], [place] [id number] Vocational Aide: Con Oseguera MD Anion gap [Moles/Vol] 15 mmol/L Normal 9-17 [facility] Comment on above: Performed By: #### B MP #### [facility] [address] [place] [address] Vocational Aide: Con Oseguera MD Calcium [Mass/Vol] 10.0 mg/dL Normal 8.6-10.4 [facility] Comment on above: Performed By: #### B MP #### [facility] [address] [place] [address] Vocational Aide: Con Oseguera MD Chloride [Moles/Vol] 98 mmol/L Normal 98-107 [facility] Comment on above: Performed By: #### B MP #### [facility] [address] [place] [address] Vocational Aide: Con Oseguera MD CO2 [Moles/Vol] 24 mmol/L Normal 20-31 [facility] Comment on above: Performed By: #### B MP #### [facility] [address] [place] [address] Vocational Aide: Con Oseguera MD Creatinine [Mass/Vol] 1.54 mg/dL High 0.70-1.20 [facility] Comment on above: Performed By: #### B MP #### [facility] [address] [place] [address] Vocational Aide: Con Oseguera MD GFR, Amer 53 mL/min Low >60 [facility] Comment on above: Performed By: #### B MP #### [facility] [address] [place] [address] Vocational Aide: Con Oseguera MD GFR,non Amer 44 mL/min Low >60 [facility] Comment on above: Performed By: #### B MP #### [facility] [address] [place] [address] Vocational Aide: Con Oseguera MD Glucose [Mass/Vol] 119 mg/dL High 70-99 [facility] Comment on above: Performed By: #### B MP #### [facility] [address] [place] [address] Vocational Aide: Con Oseguera MD Potassium [Moles/Vol] 4.4 mmol/L Normal 3.7-5.3 [facility] Comment on above: Performed By: #### B MP #### [facility] [address] [place] [address] Vocational Aide: Con Oseguera MD Sodium [Moles/Vol] 137 mmol/L Normal 135-144 [facility] Comment on above: Performed By: #### B MP #### [facility] [address] [place] [address] Vocational Aide: Con Oseguera MD Urea nitrogen [Mass/Vol] 22 mg/dL Normal 8-23 [facility] Comment on above: Performed By: #### B MP #### [facility] [address] [place] [address] Vocational Aide: Con Oseguera MD BUN/CRE Ratio NOT REPORTED Normal 9-20 [facility] Comment on above: Performed By: #### B MP #### [facility] [address] [place] [address] Vocational Aide: Con Oseguera MD Staging: NOT REPORTED Normal [facility] Comment on above: Performed By: #### B MP #### [facility] [address] [place] [address] Vocational Aide: Con Oseguera MD Basic Metabolic Panel w/ Ref milagros to MGon 03-09-2019 Anion gap [Moles/Vol] 15 mmol/L 9 - 17 mmol/L [facility], [place] Bun/Cre Ratio NOT REPORTED [facility] [place], [place] Calcium [Mass/Vol] 10.0 mg/dL 8.6 - 10. 4 mg/dL [place] Chloride [Moles/Vol] 98 mmol/L 98 - 10 7 mmol/L [place] CO2 [Moles/Vol] 24 mmol/L 20 - 31 mmol/L [place] Creatinine [Mass/Vol] 1.54 mg/dL High 0.7 - 1.2 mg/dL [place] GFR 53 mL/min Low >60 [place], [place] GFR Non- 44 mL/min Low >60 [place] GFR/1.73 sq M predicted among non-blacks MDRD (S/P/Bld) [Vol rate/Area] [place] Comment on above: Average GFR for 70 o r more years old: 75 mL/min/1.73sq m Chronic Kidney Disease: <60 mL/min/1.73sq m Kidney failure: <15 mL/min/1.73sq m eGFR calculated using average adult body mass. Additional eGFR calculator available at: http://www.BasharJobs/multiple_crcl_2012.htm GFR/1.73 sq M predicted among non-blacks MDRD (S/P/Bld) [Vol rate/Area] NOT REPORTED [place] Glucose [Mass/Vol] 119 mg/dL High 70 - 99 mg/dL [place] Interpretation and review of laboratory results Abnormal [place] Potassium [Moles/Vol] 4.4 mmol/L 3.7 - 5.3 mmol/L [place] Sodium [Moles/Vol] 137 mmol/L 135 - 144 mmol/L [place] Urea nitrogen [Mass/Vol] 22 mg/dL 8 - 23 mg/dL [place] Cult,Urine,Cathon 03-09-2019 Cult,Urine,Cath Specimen Description .CATHETERIZED URINE Special Requests NOT REPORTED Culture KLEBSIELLA PNEUMONIAE >[id number] CFU/ML Report Status FINAL 03/09/2019 SUSCEPTIBILITY Organism [...] <=20 SUSCEPTIBLE Piperacillin/Tazobac sanabria <=4 SUSCEPTIBLE Normal [facility] Comment on above: Performed By: #### B MP #### [facility] [address] [place] [address] Vocational Aide: Con Oseguera MD POC Glucose Fingerstickon Glucose [Mass/Vol] 199 mg/dL High 75 - 110 mg/dL [place] Interpretation and review of laboratory results Abnormal [place] Glucose [Mass/Vol] 296 mg/dL High 75 - 110 mg/dL [place] Interpretation and review of laboratory results Abnormal [place] Glucose [Mass/Vol] 299 mg/dL High 75 - 110 mg/dL [place] Interpretation and review of laboratory results Abnormal [place] Glucose [Mass/Vol] 124 mg/dL High 75 - 110 mg/dL [place] Interpretation and review of laboratory results Abnormal [place] Urine culture via catheteron 03-09-2019 Culture KLEBSIELLA PNEUMONIAE >[id number] CFU/ML Abnormal [place] Interpretation and review of laboratory results Abnormal [place] Special Requests NOT REPORTED [place] Specimen Description .CATHETERIZED URINE [place] Basic Metab w/rfx MGon 03-08 (cont.) Normal [facility] Comment on above: Result Comment: Aver age GFR for 70 or more years old: 75 mL/min/1.73sq m Chronic Kidney Disease: <60 mL/min/1.73sq m Kidney failure: <15 mL/min/1.73sq m eGFR calculated using average adult body mass. Additional eGFR calculator available at: http://www.[email or web address] Margarita/multiple_crcl_2012.htm Performed By: #### B MP #### [facility] [address] [place] [address] Vocational Aide: Con Oseguera MD Anion gap [Moles/Vol] 11 mmol/L Normal 9-17 [facility] Comment on above: Performed By: #### B MP #### [facility] [address] [place] [address] Vocational Aide: Con Oseguera MD Calcium [Mass/Vol] 9.3 mg/dL Normal 8.6-10.4 [facility] Comment on above: Performed By: #### B MP #### [facility] [place] [address] Vocational Aide: Con Oseguera MD Chloride [Moles/Vol] 100 mmol/L Normal 98-107 [facility] Comment on above: Performed By: #### B MP #### [facility] [place] [address] Vocational Aide: Con Oseguera MD CO2 [Moles/Vol] 28 mmol/L Normal 20-31 [facility] Comment on above: Performed By: #### B MP #### [facility] [place] [address] Vocational Aide: Con Oseguera MD Creatinine [Mass/Vol] 1.57 mg/dL High 0.70-1.20 [facility] Comment on above: Performed By: #### B MP #### [facility] [address] [facility] [place] [address] Vocational Aide: Con Oseguera MD GFR, Amer 52 mL/min Low >60 [facility] Comment on above: Performed By: #### B MP #### [facility] [address] [place] [address] Vocational Aide: Con Oseguera MD GFR,non Amer 43 mL/min Low >60 [facility] Comment on above: Performed By: #### B MP #### [facility] [address] [place] [address] Vocational Aide: Con Oseguera MD Glucose [Mass/Vol] 75 mg/dL Normal 70-99 [facility] Comment on above: Performed By: #### B MP #### [facility] [address] [place] [address] Vocational Aide: Con Oseguera MD Potassium [Moles/Vol] 4.6 mmol/L Normal 3.7-5.3 [facility] Comment on above: Performed By: #### B MP #### [facility] [address] [place] [address] Vocational Aide: Con Oseguera MD Sodium [Moles/Vol] 139 mmol/L Normal 135-144 [facility] Comment on above: Performed By: #### B MP #### [facility] [address] [place] [address] Vocational Aide: Con Oseguera MD Urea nitrogen [Mass/Vol] 27 mg/dL High 8-23 [facility] Comment on above: Performed By: #### B MP #### [facility] [address] [place] [address] Vocational Aide: Con Oseguera MD BUN/CRE Ratio NOT REPORTED Normal 9-20 [facility] Comment on above: Performed By: #### B MP #### [facility] [address] [place] [address] Vocational Aide: Con Oseguera MD Staging: NOT REPORTED Normal [facility] Comment on above: Performed By: #### B MP #### [facility] [address] [place] [address] Vocational Aide: Con Oseguera MD Basic Metabolic Panel w/ Ref milagros to MGon 03-08-2019 Anion gap [Moles/Vol] 11 mmol/L 9 - 17 mmol/L [place] Bun/Cre Ratio NOT REPORTED [place] Calcium [Mass/Vol] 9.3 mg/dL 8.6 - 10. 4 mg/dL [place] Chloride [Moles/Vol] 100 mmol/L 98 - 10 7 mmol/L [place] CO2 [Moles/Vol] 28 mmol/L 20 - 31 mmol/L [place] Creatinine [Mass/Vol] 1.57 mg/dL High 0.7 - 1.2 mg/dL [place] GFR 52 mL/min Low >60 [place], [place] GFR Non- 43 mL/min Low >60 [place] GFR/1.73 sq M predicted among non-blacks MDRD (S/P/Bld) [Vol rate/Area] [place] Comment on above: Average GFR for 70 o r more years old: 75 mL/min/1.73sq m Chronic Kidney Disease: <60 mL/min/1.73sq m Kidney failure: <15 mL/min/1.73sq m eGFR calculated using average adult body mass. Additional eGFR calculator available at: http://www.Tynt.Anita Margarita/multiple_crcl_2012.htm GFR/1.73 sq M predicted among non-blacks MDRD (S/P/Bld) [Vol rate/Area] NOT REPORTED [place] Glucose [Mass/Vol] 75 mg/dL 70 - 99 mg/dL [place] Interpretation and review of laboratory results Abnormal [place] Potassium [Moles/Vol] 4.6 mmol/L 3.7 - 5.3 mmol/L [place] Sodium [Moles/Vol] 139 mmol/L 135 - 144 mmol/L [place] Urea nitrogen [Mass/Vol] 27 mg/dL High 8 - 23 mg/dL [place] EKG 12 Leadon 03-08-2019 Atrial Rate 49 BPM [place] Q-T Interval 406 ms [place], [place] QRS Duration 80 ms [place] QTc Calculation (Bazett) 465 ms [place] R Letona -13 degrees [place], [place] T [place] 40 degrees [place] Ventricular Rate 79 BPM [place], [place] Stan, Mhpn Incoming Ekg Results From [facility] - 03/08/2019 10:18 AM EDT Atrial fibrillation Abnormal ECG When compared with ECG of 07-MAR-2019 17:56, (unconfirmed) No significant change was found [place] Atrial fibrillation Abnormal ECG When compared with ECG of 07-MAR-2019 17:56, (unconfirmed) No significant change was found [place] Hemoglobin A1Con 03-08-2019 HbA1c (Bld) [Mass fraction] 157 mg/dL Normal [facility] Comment on above: Result Comment: The ADA and AACC recommend providing the estimated average glucose result to permit better patient understanding of their HBA1c result. Performed By: #### B MP #### [facility] [address] [place] [address] Vocational Aide: Con Oseguera MD HbA1c (Bld) [Mass fraction] 7.1 % High 4.0-6.0 [facility] Comment on above: Performed By: #### B MP #### [facility] [address] [place], [place] [id number] Vocational Aide: Con Oseguera MD Glucose [Mass/Vol] 157 mg/dL [place] Comment on above: The ADA and AACC rec ommend providing the estimated average glucose result to permit better patient understanding of their HBA1c result. HbA1c (Bld) [Mass fraction] 7.1 % High 4 - 6 % [place] Interpretation and review of laboratory results Abnormal [place] POC Glucose Fingerstickon Glucose [Mass/Vol] 220 mg/dL High 75 - 110 mg/dL [place] Interpretation and review of laboratory results Abnormal [place] Glucose [Mass/Vol] 144 mg/dL High 75 - 110 mg/dL [place] Interpretation and review of laboratory results Abnormal [place] Glucose [Mass/Vol] 325 mg/dL High 75 - 110 mg/dL [place] Interpretation and review of laboratory results Abnormal [place] Glucose [Mass/Vol] 138 mg/dL High 75 - 110 mg/dL [place] Interpretation and review of laboratory results Abnormal [place] Glucose [Mass/Vol] 63 mg/dL Low 75 - 110 mg/dL [place] Interpretation and review of laboratory results Abnormal [place] Brain Natri. Peptideon 03-07 Natriuretic peptide B (Bld) [Mass/Vol] Pro-BNP Reference Range: Normal [facility] Comment on above: Result Comment: Rule Out: <300 Miranda Zone: Age <50 300-450 Age 50-75 300-900 Age >75 300-1800 Usually represents mild to moderate HF but other cardiopulmonary causes cannot be ruled out. Rule In: Age <50 >450 Age 50-75 >900 Age >75 >1800 Performed By: #### B MP #### [facility] [address] [facility] [place], [place] [id number] Vocational Aide: Con Oseguera MD Natriuretic peptide B (Bld) [Mass/Vol] 946 pg/mL High <300 [facility] Comment on above: Result Comment: Pro- BNP results cannot be compared to BNP results. Performed By: #### B MP #### [facility] [address] [place] [address] Vocational Aide: Con Oseguera MD Brain Natriuretic Peptideon 03-07-2019 Interpretation and review of laboratory results Abnormal [place] Natriuretic peptide B (Bld) [Mass/Vol] Pro-BNP Reference Range: [place] Comment on above: Rule Out: <300 Miranda Zone: Age <50 300-450 Age 50-75 300-900 Age >75 300-1800 Usually represents mild to moderate HF but other cardiopulmonary causes cannot be ruled out. Rule In: Age <50 >450 Age 50-75 >900 Age >75 >1800 Natriuretic peptide B (Bld) [Mass/Vol] 946 pg/mL High <300 [place] Comment on above: Pro-BNP results darrius ot be compared to BNP results. CBC Auto Differentialon 02-25 Basophils (Bld) [#/Vol] 0.10 10*3/uL [place] Basophils/100 WBC (Bld) 1 % 0 - 2 % [place] Differential Type NOT REPORTED [place] Eosinophils (Bld) [#/Vol] 0.10 10*3/uL [place] Eosinophils/100 WBC (Bld) 1 % 0 - 4 % [place] Erythrocyte distribution width (RBC) [Ratio] 29.0 % High 11.5 - 14.9 % [place] Hematocrit (Bld) [Volume fraction] 33.5 % Low 41 - 53 % [place] Hemoglobin (Bld) [Mass/Vol] 10.5 g/dL Low 13.5 - 17.5 g/dL [place] Interpretation and review of laboratory results Abnormal [place] Lymphocytes (Bld) [#/Vol] 0.72 10*3/uL Low [place] Lymphocytes/100 WBC (Bld) 7 % Low 24 - 44 % [place] MCH (RBC) [Entitic mass] 22.4 pg Low 26 - 34 pg [place] MCHC (RBC) [Mass/Vol] 31.2 g/dL 31 - 37 g/dL [place] MCV (RBC) [Entitic vol] 71.7 fL Low 80 - 100 fL [place] Monocytes (Bld) [#/Vol] 0.72 10*3/uL [place] Monocytes/100 WBC (Bld) 7 % 1 - 7 % [place] Morphology Theo (Bld) [Interp] ANISOCYTOSIS PRESENT [place] Morphology Theo (Bld) [Interp] HYPOCHROMIA PRESENT [place] Morphology Theo (Bld) [Interp] MICROCYTOSIS PRESENT [place] Platelet mean volume (Bld) [Entitic vol] 8.6 fL 6 - 12 fL [place] Platelets (Bld) [#/Vol] NOT REPORTED [place] Platelets (Bld) [#/Vol] 273 10*3/uL [place] RBC (Bld) [#/Vol] 4.68 10*6/uL 4.5 - 5.9 m/uL [place] RBC morphology finding Nom (Bld) NOT REPORTED [place] Segmented neutrophils/100 WBC (Bld) 84 % High 36 - 66 % [place] Segs Absolute 8.66 [place] WBC (Bld) [#/Vol] NOT REPORTED per 100 WBC [place] WBC (Bld) [#/Vol] 10.3 10*3/uL [place] WBC Morphology NOT REPORTED [place] CBC with Diffon 03-07-2019 Abs. Basophil 0.10 k/uL Normal 0.0-0.2 [facility] Comment on above: Performed By: #### B MP #### [facility] [address] [place] [address] Vocational Aide: Con Oseguera MD Abs.Neutrophil (Seg) 8.66 k/uL Normal 1.3-9.1 [facility] Comment on above: Performed By: #### B MP #### [facility] [address] [place] [address] Vocational Aide: Con Oseguera MD Basophils/100 WBC (Bld) 1 % Normal 0-2 [facility] Comment on above: Performed By: #### B MP #### [facility] [address] [place] [address] Vocational Aide: Cno Oseguera MD Eosinophils (Bld) [#/Vol] 0.10 10*3/uL Normal 0.0-0.4 [facility] Comment on above: Performed By: #### B MP #### [facility] [address] [place] [address] Vocational Aide: Con Oseguera MD Eosinophils/100 WBC (Bld) 1 % Normal 0-4 [facility] Comment on above: Performed By: #### B MP #### [facility] [address] [place] [address] Vocational Aide: Con Oseguera MD Lymphocytes (Bld) [#/Vol] 0.72 10*3/uL Low 1.0-4.8 [facility] Comment on above: Performed By: #### B MP #### [facility] [address] [facility] [place] [address] Vocational Aide: Con Oseguera MD Lymphocytes/100 WBC (Bld) 7 % Low 24-44 [facility] Comment on above: Performed By: #### B MP #### [facility] [address] [facility] [place] [address] Vocational Aide: Con Oseguera MD Monocytes (Bld) [#/Vol] 0.72 10*3/uL Normal 0.1-1.3 [facility] Comment on above: Performed By: #### B MP #### [facility] [address] [place] [address] Vocational Aide: Con Oseguera MD Monocytes/100 WBC (Bld) 7 % Normal 1-7 [facility] Comment on above: Performed By: #### B MP #### [facility] [address] [place] [address] Vocational Aide: Con Oseguera MD Morphology Theo (Bld) [Interp] ANISOCYTOSIS PRESENT Normal [facility] Comment on above: Result Comment: MICR OCYTOSIS PRESENT HYPOCHROMIA PRESENT Performed By: #### B MP #### [facility] [place] [address] Vocational Aide: Con Oseguera MD Neutrophil (Seg) 84 % High 36-66 [facility] Comment on above: Performed By: #### B MP #### [facility] [place] [address] Vocational Aide: Con Oseguera MD Erythrocyte distribution width (RBC) [Ratio] 29.0 % High 11.5-14.9 [facility] Comment on above: Performed By: #### B MP #### [facility] [address] [place] [address] Vocational Aide: Con Oseguera MD Hematocrit (Bld) [Volume fraction] 33.5 % Low 41-53 [facility] Comment on above: Performed By: #### B MP #### [facility] [address] [place] [address] Vocational Aide: Con Oseguera MD Hemoglobin (Bld) [Mass/Vol] 10.5 g/dL Low 13.5-17.5 [facility] Comment on above: Performed By: #### B MP #### [facility] [address] [place] [address] Vocational Aide: Con Oseguera MD MCH (RBC) [Entitic mass] 22.4 pg Low 26-34 [facility] Comment on above: Performed By: #### B MP #### [facility] [address] [place] [address] Vocational Aide: Con Oseguera MD MCHC (RBC) [Mass/Vol] 31.2 g/dL Normal 31-37 [facility] Comment on above: Performed By: #### B MP #### [facility] [address] [facility] [place] [address] Vocational Aide: Con Oseguera MD MCV (RBC) [Entitic vol] 71.7 fL Low 80-100 [facility] Comment on above: Performed By: #### B MP #### [facility] [place] [address] Vocational Aide: Con Oseguera MD Platelet mean volume (Bld) [Entitic vol] 8.6 fL Normal 6.0-12.0 [facility] Comment on above: Performed By: #### B MP #### [facility] [address] [place] [address]. [place] [address] Vocational Aide: Con Oseguera MD Platelets (Bld) [#/Vol] 273 10*3/uL Normal 150-450 [facility] Comment on above: Performed By: #### B MP #### [facility] [address] [place] [address]. [place] [address] Vocational Aide: Con Oseguera MD RBC (Bld) [#/Vol] 4.68 10*6/uL Normal 4.5-5.9 [facility] Comment on above: Performed By: #### B MP #### [facility] [address] [place] [address]. [place] [address] Vocational Aide: Con Oseguera MD WBC (Bld) [#/Vol] 10.3 10*3/uL Normal 3.5-11.0 [facility] Comment on above: Performed By: #### B MP #### [facility] [address] [place] [address] Vocational Aide: Con Oseguera MD Abs.Imm.Granulocyte NOT REPORTED Normal 0.00-0.30 [facility] Comment on above: Performed By: #### B MP #### [facility] [address] [place] [address] Vocational Aide: Con Oseguera MD Auto Diff Performed NOT REPORTED Normal [facility] Comment on above: Performed By: #### B MP #### [facility] [address] [place] [address] Vocational Aide: oCn Oseguera MD Immature granulocytes (Bld) [#/Vol] NOT REPORTED Normal 0 [facility] Comment on above: Performed By: #### B MP #### [facility] [address] [place] [address] Vocational Aide: Con Oseguera MD NRBC Automated NOT REPORTED Normal [facility] Comment on above: Performed By: #### B MP #### [facility] [place] [address] Vocational Aide: Con Oseguera MD Platelets (Bld) [#/Vol] NOT REPORTED Normal [facility] Comment on above: Performed By: #### B MP #### [facility] [address] [facility] [place] [address] Vocational Aide: Con Oseguera MD RBC morphology finding Nom (Bld) NOT REPORTED Normal [facility] Comment on above: Performed By: #### B MP #### [facility] [address] [facility] [place] [address] Vocational Aide: Con Oseguera MD WBC Morphology NOT REPORTED Normal [facility] Comment on above: Performed By: #### B MP #### [facility] [place] [address] Vocational Aide: Con Oseguera MD CT ABDOMEN PELVIS WO [...] Del Angel MD 03/07/19 Final result Normal [facility] EXAMINATION: CT OF THE ABDOMEN AND PELVIS [...] Degenerative changes of the spine are present. [facility], [place] Bibasilar consolidative changes and right middle lobe pulmonary infiltrates, consistent with pneumonia in the appropriate clinical setting. Mild left pleural effusion. Diverticulosis coli, without evidence of diverticulitis or colitis. Prostatomegaly. [place], [place] Stan, M[facility]pn Incoming Radiant Results From [employer] - 03/07/2019 7:00 PM EDT EXAMINATION: CT [...] without evidence of diverticulitis or colitis. Prostatomegaly. [place] Comp Metabolic Profon 2018 (cont.) Normal [facility] Comment on above: Result Comment: Aver age GFR for 70 or more years old: 75 mL/min/1.73sq m Chronic Kidney Disease: <60 mL/min/1.73sq m Kidney failure: <15 mL/min/1.73sq m eGFR calculated using average adult body mass. Additional eGFR calculator available at: http://www.Tynt.Anita Margarita/multiple_crcl_2012.htm Performed By: #### B MP #### [facility] [address] [facility] [place] [address] Vocational Aide: Con Oseguera MD Albumin [Mass/Vol] 3.8 g/dL Normal 3.5-5.2 [facility] Comment on above: Performed By: #### B MP #### [facility] [place] [address] Vocational Aide: Con Oseguera MD Alkaline Phos 166 U/L High 40-129 [facility] Comment on above: Performed By: #### B MP #### [facility] [address] [place] [address]. [place] [address] Vocational Aide: Con Oseguera MD ALT [Catalytic activity/Vol] 28 U/L Normal 5-41 [facility] Comment on above: Performed By: #### B MP #### [facility] [address] [place] [address] Vocational Aide: Con Oseguera MD Anion gap [Moles/Vol] 12 mmol/L Normal 9-17 [facility] Comment on above: Performed By: #### B MP #### [facility] [address] [place] [address] Vocational Aide: Con Oseguera MD AST [Catalytic activity/Vol] 26 U/L Normal <40 [facility] Comment on above: Performed By: #### B MP #### [facility] [place] [address] Vocational Aide: Con Oseguera MD Bilirubin Ql (U) 0.20 mg/dL Low 0.3-1.2 [facility] Comment on above: Performed By: #### B MP #### [facility] [address] [place] [address] Vocational Aide: Con Oseguera MD Calcium [Mass/Vol] 9.5 mg/dL Normal 8.6-10.4 [facility] Comment on above: Performed By: #### B MP #### [facility] [address] [place] [address] Vocational Aide: Con Oseguera MD Chloride [Moles/Vol] 98 mmol/L Normal 98-107 [facility] Comment on above: Performed By: #### B MP #### [facility] [address] [place] [address] Vocational Aide: Con Oseguera MD CO2 [Moles/Vol] 28 mmol/L Normal 20-31 [facility] Comment on above: Performed By: #### B MP #### [facility] [address] [place] [address] Vocational Aide: Con Oseguera MD Creatinine [Mass/Vol] 1.70 mg/dL High 0.70-1.20 [facility] Comment on above: Performed By: #### B MP #### [facility] [address] [place] [address] Vocational Aide: Con Oseguera MD GFR, Amer 47 mL/min Low >60 [facility] Comment on above: Performed By: #### B MP #### [facility] [address] [place] [address] Vocational Aide: Con Oseguera MD GFR,non Amer 39 mL/min Low >60 [facility] Comment on above: Performed By: #### B MP #### [facility] [address] [place] [address] Vocational Aide: Con Oseguera MD Glucose [Mass/Vol] 63 mg/dL Low 70-99 [facility] Comment on above: Performed By: #### B MP #### [facility] [address] [place] [address] Vocational Aide: Con Oseguera MD Potassium [Moles/Vol] 4.6 mmol/L Normal 3.7-5.3 [facility] Comment on above: Performed By: #### B MP #### [facility] [address] [place] [address] Vocational Aide: Con Oseguera MD Protein [Mass/Vol] 6.8 g/dL Normal 6.4-8.3 [facility] Comment on above: Performed By: #### B MP #### [facility] [address] [place] [address] Vocational Aide: Con Oseguera MD Sodium [Moles/Vol] 138 mmol/L Normal 135-144 [facility] Comment on above: Performed By: #### B MP #### [facility] [address] [place] [address] Vocational Aide: Con Oseguera MD Urea nitrogen [Mass/Vol] 30 mg/dL High 8-23 [facility] Comment on above: Performed By: #### B MP #### [facility] [address] [place] [address] Vocational Aide: Con Oseguera MD Albumin/Globulin [Mass ratio] NOT REPORTED Normal 1.0-2.5 [facility] Comment on above: Performed By: #### B MP #### [facility] [address] [place] [address] Vocational Aide: Con Oseguera MD BUN/CRE Ratio NOT REPORTED Normal 9-20 [facility] Comment on above: Performed By: #### B MP #### [facility] [address] [place] [address] Vocational Aide: Con Oseguera MD Staging: NOT REPORTED Normal [facility] Comment on above: Performed By: #### B MP #### [facility] [address] [place] [address] Vocational Aide: oCn Oseguera MD Comprehensive Metabolic Pane blanca 03-07-2019 Albumin [Mass/Vol] 3.8 g/dL 3.5 - 5.2 g/dL [place] Albumin/Globulin [Mass ratio] NOT REPORTED [place] ALP [Catalytic activity/Vol] 166 U/L High 40 - 129 U/L [place] ALT [Catalytic activity/Vol] 28 U/L 5 - 41 U/L [place] Anion gap [Moles/Vol] 12 mmol/L 9 - 17 mmol/L [place] AST [Catalytic activity/Vol] 26 U/L <40 [place] Bilirubin Ql (U) 0.20 mg/dL Low 0.3 - 1.2 mg/dL [place] Bun/Cre Ratio NOT REPORTED [place] Calcium [Mass/Vol] 9.5 mg/dL 8.6 - 10. 4 mg/dL [place] Chloride [Moles/Vol] 98 mmol/L 98 - 10 7 mmol/L [place] CO2 [Moles/Vol] 28 mmol/L 20 - 31 mmol/L [place] Creatinine [Mass/Vol] 1.7 mg/dL High 0.7 - 1.2 mg/dL [place] GFR 47 mL/min Low >60 [place], [place] GFR Non- 39 mL/min Low >60 [place] GFR/1.73 sq M predicted among non-blacks MDRD (S/P/Bld) [Vol rate/Area] NOT REPORTED [place] GFR/1.73 sq M predicted among non-blacks MDRD (S/P/Bld) [Vol rate/Area] [place] Comment on above: Average GFR for 70 o r more years old: 75 mL/min/1.73sq m Chronic Kidney Disease: <60 mL/min/1.73sq m Kidney failure: <15 mL/min/1.73sq m eGFR calculated using average adult body mass. Additional eGFR calculator available at: http://www.Tynt.Anita Margarita/multiple_crcl_2012.htm Glucose [Mass/Vol] 63 mg/dL Low 70 - 99 mg/dL [place] Potassium [Moles/Vol] 4.6 mmol/L 3.7 - 5.3 mmol/L [place] Protein [Mass/Vol] 6.8 g/dL 6.4 - 8.3 g/dL [place] Sodium [Moles/Vol] 138 mmol/L 135 - 144 mmol/L [place] Urea nitrogen [Mass/Vol] 30 mg/dL High 8 - 23 mg/dL [place] Lipaseon 03-07-2019 Lipase [Catalytic activity/Vol] 83 U/L High 13-60 [facility] Comment on above: Performed By: #### B MP #### [facility] [address] [place] [address] Vocational Aide: Con Oseguera MD Lipase [Catalytic activity/Vol] 83 U/L High 13 - 60 U/L [place] Microscopic Urinalysison Amorphous, UA NOT REPORTED None [place], [place] Bacteria, UA MODERATE Abnormal None [place], [place] Casts UA NOT REPORTED /LPF [place] Crystals UA NOT REPORTED None /HPF [place] Epithelial Cells UA 0 TO 2 /HPF [place] Interpretation and review of laboratory results Abnormal [place] Mucus, UA NOT REPORTED None [place] Other Observations UA NOT REPORTED NOT REQ. [place] RBC (U) [#/Vol] 10 TO 20 /HPF [place] Renal Epithelial, Urine NOT REPORTED 0 /HPF [place] Trichomonas, UA NOT REPORTED None [place], [place] WBC, UA 20 TO 50 /HPF [place] Yeast, UA NOT REPORTED None [place], [place] - [place] Otheron 03-07-2019 Immature granulocytes (Bld) [#/Vol] NOT REPORTED [place] Interpretation and review of laboratory results Abnormal [place] POC Glucose Fingerstickon Glucose [Mass/Vol] 167 mg/dL High 75 - 110 mg/dL [place] Interpretation and review of laboratory results Abnormal [place] Glucose [Mass/Vol] 124 mg/dL High 75 - 110 mg/dL [place] Interpretation and review of laboratory results Abnormal [place] POCT Glucoseon 03-07-2019 Glucose [Mass/Vol] 124 mg/dL [place] Interpretation and review of laboratory results Normal [place] QC OK? y [place] Troponinon 03-07-2019 Troponin I.cardiac [Mass/Vol] 27 ng/L High 0-22 [facility] Comment on above: Result Comment: High Sensitivity Troponin values cannot be compared with other Troponin methodologies. Patients with high levels of Biotin oral intake (i.e >5mg/day) may have falsely decreased Troponin levels. Samples collected within 8 hours of biotin intake may require additional information for diagnosis. Performed By: #### B MP #### [facility] [address] [place] [address] Vocational Aide: Con Oseguera MD Troponin I.cardiac [Mass/Vol] 29 ng/L High 0-22 [facility] Comment on above: Result Comment: High Sensitivity Troponin values cannot be compared with other Troponin methodologies. Patients with high levels of Biotin oral intake (i.e >5mg/day) may have falsely decreased Troponin levels. Samples collected within 8 hours of biotin intake may require additional information for diagnosis. Performed By: #### B MP #### [facility] [address] [facility] [place], [place] [id number] Vocational Aide: Con Oseguera MD Interpretation and review of laboratory results Abnormal [place] Troponin I.cardiac [Mass/Vol] NOT REPORTED [place] Troponin T.cardiac [Mass/Vol] NOT REPORTED <0.03 ng/mL [place] Troponin, High Sensitivity 27 ng/L High 0 - 22 ng/L [place] Comment on above: High Sensitivity Troponin values cannot be compared with other Troponin methodologies. Patients with high levels of Biotin oral intake (i.e >5mg/day) may have falsely decreased Troponin levels. Samples collected within 8 hours of biotin intake may require additional information for diagnosis. Troponin I.cardiac [Mass/Vol] NOT REPORTED Normal [facility] Comment on above: Performed By: #### B MP #### [facility] [address] [place] [address] Vocational Aide: Con Oseguera MD Troponin I.cardiac [Mass/Vol] NOT REPORTED Normal <0.03 [place] Comment on above: Performed By: #### B MP #### [facility] [address] [facility] [place] [address] Vocational Aide: Con Oseguera MD Interpretation and review of laboratory results Abnormal [place] Troponin T.cardiac [Mass/Vol] NOT REPORTED <0.03 ng/mL [place] Troponin, High Sensitivity 29 ng/L High 0 - 22 ng/L [place] Comment on above: High Sensitivity Troponin values cannot be compared with other Troponin methodologies. Patients with high levels of Biotin oral intake (i.e >5mg/day) may have falsely decreased Troponin levels. Samples collected within 8 hours of biotin intake may require additional information for diagnosis. UA w/Reflex Cultureon 2018 Acetoacetic Acid,Ur Negative Normal NEG [facility] Comment on above: Performed By: #### B MP #### [facility] [address] [facility] [place] [address] Vocational Aide: Con Oseguera MD Bilirubin, SemiQt,Ur Negative Normal NEG [facility] Comment on above: Performed By: #### B MP #### [facility] [address] [facility] [place] [address] Vocational Aide: Con Oseguera MD Color (U) YELLOW Normal YEL [facility] Comment on above: Performed By: #### B MP #### [facility] [address] [facility] [place] [address] Vocational Aide: Con Oseguera MD Glucose Ql (U) Negative Normal NEG [facility] Comment on above: Performed By: #### B MP #### [facility] [address] [place] [address] Vocational Aide: Con Oseguera MD Hemoglobin, Ur MOD Abnormal NEG [facility] Comment on above: Performed By: #### B MP #### [facility] [address] [place] [address] Vocational Aide: Con Oseguera MD Leukocyte esterase Test strip Ql (U) LARGE Abnormal NEG [facility] Comment on above: Performed By: #### B MP #### [facility] [address] [place] [address] Vocational Aide: Con Oseguera MD Nitrite,Ur Negative Normal NEG [facility] Comment on above: Performed By: #### B MP #### [facility] [address] [facility] [place] [address] Vocational Aide: Con Oseguera MD pH (U) 6.5 [pH] Normal 5.0-8.0 [facility] Comment on above: Performed By: #### B MP #### [facility] [address] [facility] [place] [address] Vocational Aide: Con Oseguera MD Protein Ql (U) 2+ Abnormal NEG [facility] Comment on above: Performed By: #### B MP #### [facility] [address] [place] [address] Vocational Aide: Con Oseguera MD Specific gravity (U) [Rel density] 1.017 Normal 1.000-1.030 [facility] Comment on above: Performed By: #### B MP #### [facility] [address] [facility] [place] [address] Vocational Aide: Con Oseguera MD Turbidity CLOUDY Abnormal CLEAR [facility] Comment on above: Performed By: #### B MP #### [facility] [address] [place] [address] Vocational Aide: Con Oseguera MD Urobilinogen,Ur Normal Normal NORM [facility] Comment on above: Performed By: #### B MP #### [facility] [address] [facility] [place] [address] Vocational Aide: Con Oseguera MD Comment NOT REPORTED Normal [facility] Comment on above: Performed By: #### B MP #### [facility] [address] [facility] [place] [address] Vocational Aide: Con Oseguera MD Urinalysis Reflex to Culture on 03-07-2019 Bilirubin Urine Negative NEGATIVE [facility] [place] Color, UA YELLOW YELLOW [facility] Glucose, Ur Negative NEGATIVE [facility] [place] Interpretation and review of laboratory results Abnormal [facility] [place] Ketones Ql (U) Negative NEGATIVE [facility] Leukocyte esterase Test strip Ql (U) LARGE Abnormal NEGATIVE [facility] [place] Nitrite, Urine Negative NEGATIVE [facility] pH, UA 6.5 [facility] Protein (U) [Mass/Vol] 2+ Abnormal NEGATIVE [facility] Specific [place], UA 1.017 [facility] [employer] Turbidity UA CLOUDY Abnormal CLEAR [facility] [place] Urinalysis Comments NOT REPORTED [facility] Urine Hgb MOD Abnormal NEGATIVE [facility] Urobilinogen, Urine Normal Normal [facility]- [place], [place] Urinalysis,Microon 9 ----- Normal [facility] Comment on above: Performed By: #### B MP #### [facility] [address] [facility] [place] [address] Vocational Aide: Con Oseguera MD Bacteria LM.HPF (Urine sed) [#/Area] MODERATE Abnormal NONE [facility] Comment on above: Performed By: #### B MP #### [facility] [address] [facility] [place] [address] Vocational Aide: Con Oseguera MD Epithelial cells LM.HPF (Urine sed) [#/Area] 0 TO 2 Normal [facility] Comment on above: Performed By: #### B MP #### [facility] [address] [facility] [place] [address] Vocational Aide: Con Oseguera MD RBC (U) [#/Vol] 10 TO 20 Normal [facility] Comment on above: Performed By: #### B MP #### [facility] [facility] [place] [address] Vocational Aide: Con Oseguera MD WBC (U) [#/Vol] 20 TO 50 Normal [facility] Comment on above: Performed By: #### B MP #### [facility] [address] [place] [address] Vocational Aide: Con Oseguera MD Amorphous sediment LM Ql (Urine sed) NOT REPORTED Normal [facility] Comment on above: Performed By: #### B MP #### [facility] [place] [address] Vocational Aide: Con Oseguera MD Casts LM.LPF (Urine sed) [#/Area] NOT REPORTED Normal [facility] Comment on above: Performed By: #### B MP #### [facility] [place] [address] Vocational Aide: Con Oseguera MD Crystals LM Nom (Urine sed) NOT REPORTED Normal [facility] Comment on above: Performed By: #### B MP #### [facility] [place] [address] Vocational Aide: Con Oseguera MD Epithelial, Renal NOT REPORTED Normal 0 [facility] Comment on above: Performed By: #### B MP #### [facility] [place] [address] Vocational Aide: Con Oseguera MD Mucus Strands NOT REPORTED Normal NONE [facility] Comment on above: Performed By: #### B MP #### [facility] [address] [facility] [place] [address] Vocational Aide: Con Oseguera MD Other Observations NOT REPORTED Normal NREQ [facility] Comment on above: Performed By: #### B MP #### [facility] [address] [facility] [place] [address] Vocational Aide: Con Oseguera MD Trichomonas NOT REPORTED Normal NONE [facility] Comment on above: Performed By: #### B MP #### [facility] [address] [facility] [place] [address] Vocational Aide: Con Oseguera MD Yeast LM Ql (Urine sed) NOT REPORTED Normal [facility] Comment on above: Performed By: #### B MP #### [facility] [address] [facility] [place] [address] Vocational Aide: Con Oseguera MD XR CHEST (2 VW)on [...] Yoni Faye MD 03/07/19 Final result Normal [facility] XR CHEST STANDARD (2 VW)on 0 03-07-2019 Stan, [facility] Incoming Radiant Results From [employer] - 03/07/2019 5:45 PM EDT EXAMINATION: TWO [...] bilaterally. Pneumonia is favored over atypical edema [place], [place] Multifocal airspace disease bilaterally. Pneumonia is favored over atypical edema [place], [place] EXAMINATION: TWO XRAY VIEWS OF THE [...] is noted. Small effusions are suggested bilaterally [place], [place] Magnesiumon 12-13-2018 Magnesium [Mass/Vol] 2.1 mg/dL Normal 1.6-2.6 [facility] Comment on above: Performed By: #### B MP #### [facility] [address] [facility] [place], [place] [id number] Vocational Aide: Con Oseguera MD Basic Metabolic Profon 12-11 (cont.) Normal [facility] Comment on above: Result Comment: Aver age GFR for 70 or more years old: 75 mL/min/1.73sq m Chronic Kidney Disease: <60 mL/min/1.73sq m Kidney failure: <15 mL/min/1.73sq m eGFR calculated using average adult body mass. Additional eGFR calculator available at: http://www.Tynt.Anita Margarita/multiple_crcl_2012.htm Performed By: #### B MP #### [facility] [address] [facility] [place] [address] Vocational Aide: Con Oseguera MD Anion gap [Moles/Vol] 13 mmol/L Normal 9-17 [facility] Comment on above: Performed By: #### B MP #### [facility] [address] [place] [address] Vocational Aide: Con Oseguera MD Calcium [Mass/Vol] 8.6 mg/dL Normal 8.6-10.4 [facility] Comment on above: Performed By: #### B MP #### [facility] [address] [place] [address] Vocational Aide: Con Oseguera MD Chloride [Moles/Vol] 100 mmol/L Normal 98-107 [facility] Comment on above: Performed By: #### B MP #### [facility] [place] [address] Vocational Aide: Con Oseguera MD CO2 [Moles/Vol] 22 mmol/L Normal 20-31 [facility] Comment on above: Performed By: #### B MP #### [facility] [place] [address] Vocational Aide: Con Oseguera MD Creatinine [Mass/Vol] 1.02 mg/dL Normal 0.70-1.20 [facility] Comment on above: Performed By: #### B MP #### [facility] [address] [place] [address] Vocational Aide: Con Oseguera MD GFR, Amer >60 Normal >60 [facility] Comment on above: Performed By: #### B MP #### [facility] [address] [place] [address] Vocational Aide: Con Oseguera MD GFR,non Amer >60 Normal >60 [facility] Comment on above: Performed By: #### B MP #### [facility] [address] [place] [address] Vocational Aide: Con Oseguera MD Glucose [Mass/Vol] 151 mg/dL High 70-99 [facility] Comment on above: Performed By: #### B MP #### [facility] [address] [place] [address] Vocational Aide: Con Oseguera MD Potassium [Moles/Vol] 4.0 mmol/L Normal 3.7-5.3 [facility] Comment on above: Performed By: #### B MP #### [facility] [address] [place] [address] Vocational Aide: Con Oseguera MD Sodium [Moles/Vol] 135 mmol/L Normal 135-144 [facility] Comment on above: Performed By: #### B MP #### [facility] [address] [place] [address] Vocational Aide: Con Oseguera MD Urea nitrogen [Mass/Vol] 22 mg/dL Normal 8-23 [facility] Comment on above: Performed By: #### B MP #### [facility] [address] [place] [address] Vocational Aide: Con Oseguera MD BUN/CRE Ratio NOT REPORTED Normal 9-20 [facility] Comment on above: Performed By: #### B MP #### [facility] [address] [place] [address] Vocational Aide: Con Oseguera MD Staging: NOT REPORTED Normal [facility] Comment on above: Performed By: #### B MP #### [facility] [address] [place] [address] Vocational Aide: Con Oseguera MD CBC with Diffon 12-11-2018 Abs. Basophil 0.00 k/uL Normal 0.0-0.2 [facility] Comment on above: Performed By: #### B MP #### [facility] [address] [place] [address] Vocational Aide: Con Oseguera MD Abs.Neutrophil (Seg) 9.27 k/uL High 1.3-9.1 [facility] Comment on above: Performed By: #### B MP #### [facility] [address] [place] [address] Vocational Aide: Con Oseguera MD Basophils/100 WBC (Bld) 0 % Normal 0-2 [facility] Comment on above: Performed By: #### B MP #### [facility] [address] [facility] [place] [address] Vocational Aide: Con Oseguera MD Eosinophils (Bld) [#/Vol] 0.12 10*3/uL Normal 0.0-0.4 [facility] Comment on above: Performed By: #### B MP #### [facility] [address] [facility] [place] [address] Vocational Aide: Con Oseguera MD Eosinophils/100 WBC (Bld) 1 % Normal 0-4 [facility] Comment on above: Performed By: #### B MP #### [facility] [place] [address] Vocational Aide: Con Oseguera MD Lymphocytes (Bld) [#/Vol] 1.22 10*3/uL Normal 1.0-4.8 [facility] Comment on above: Performed By: #### B MP #### [facility] [address] [place] [address] Vocational Aide: Con Oseguera MD Lymphocytes/100 WBC (Bld) 10 % Low 24-44 [facility] Comment on above: Performed By: #### B MP #### [facility] [address] [facility] [place] [address] Vocational Aide: Con Oseguera MD Monocytes (Bld) [#/Vol] 1.59 10*3/uL High 0.1-1.3 [facility] Comment on above: Performed By: #### B MP #### [facility] [place] [address] Vocational Aide: Con Oseguera MD Monocytes/100 WBC (Bld) 13 % High 1-7 [facility] Comment on above: Performed By: #### B MP #### [facility] [place] [address] Vocational Aide: Con Oseguera MD Morphology Theo (Bld) [Interp] ANISOCYTOSIS PRESENT Normal [facility] Comment on above: Result Comment: MICR OCYTOSIS PRESENT HYPOCHROMIA PRESENT 1+ POLYCHROMASIA 1+ ECHINOCYTES 1+ ELLIPTOCYTES Performed By: #### B MP #### [facility] [facility] [place] [address] Vocational Aide: Con Oseguera MD Neutrophil (Seg) 76 % High 36-66 [facility] Comment on above: Performed By: #### B MP #### [facility] [place] [address] Vocational Aide: Con Oseguera MD Erythrocyte distribution width (RBC) [Ratio] 18.7 % High 11.5-14.9 [facility] Comment on above: Performed By: #### B MP #### [facility] [place] [address] Vocational Aide: Con Oseguera MD Hematocrit (Bld) [Volume fraction] 26.2 % Low 41-53 [facility] Comment on above: Performed By: #### B MP #### [facility] [address] [place] [address] Vocational Aide: Con Oseguera MD Hemoglobin (Bld) [Mass/Vol] 8.1 g/dL Low 13.5-17.5 [facility] Comment on above: Performed By: #### B MP #### [facility] [place] [address] Vocational Aide: Con Oseguera MD MCH (RBC) [Entitic mass] 20.5 pg Low 26-34 [facility] Comment on above: Performed By: #### B MP #### [facility] [address] [place] [address]. [place] [address] Vocational Aide: Con Oseguera MD MCHC (RBC) [Mass/Vol] 30.9 g/dL Low 31-37 [facility] Comment on above: Performed By: #### B MP #### [facility] [place] [address] Vocational Aide: Con Oseguera MD MCV (RBC) [Entitic vol] 66.4 fL Low 80-100 [facility] Comment on above: Performed By: #### B MP #### [facility] [address] [place] [address]. [place] [address] Vocational Aide: Con Oseguera MD Platelet mean volume (Bld) [Entitic vol] 9.3 fL Normal 6.0-12.0 [facility] Comment on above: Performed By: #### B MP #### [facility] [place] [address] Vocational Aide: Con Oseguera MD Platelets (Bld) [#/Vol] 234 10*3/uL Normal 150-450 [facility] Comment on above: Performed By: #### B MP #### [facility] [facility] [place] [address] Vocational Aide: Con Oseguera MD RBC (Bld) [#/Vol] 3.94 10*6/uL Low 4.5-5.9 [facility] Comment on above: Performed By: #### B MP #### [facility] [address] [facility] [place] [address] Vocational Aide: Con Oseguera MD WBC (Bld) [#/Vol] 12.2 10*3/uL High 3.5-11.0 [facility] Comment on above: Performed By: #### B MP #### [facility] [place] [address] Vocational Aide: Con Oseguera MD Abs.Imm.Granulocyte NOT REPORTED Normal 0.00-0.30 [facility] Comment on above: Performed By: #### B MP #### [facility] [place] [address] Vocational Aide: Con Oseguera MD Auto Diff Performed NOT REPORTED Normal [facility] Comment on above: Performed By: #### B MP #### [facility] [place] [address] Vocational Aide: Con Oseguera MD Immature granulocytes (Bld) [#/Vol] NOT REPORTED Normal 0 [facility] Comment on above: Performed By: #### B MP #### [facility] [place] [address] Vocational Aide: Con Oseguera MD NRBC Automated NOT REPORTED Normal [facility] Comment on above: Performed By: #### B MP #### [facility] [place] [address] Vocational Aide: Con Oseguera MD Platelets (Bld) [#/Vol] NOT REPORTED Normal [facility] Comment on above: Performed By: #### B MP #### [facility] [address] [facility] [place] [address] Vocational Aide: Con Oseguera MD RBC morphology finding Nom (Bld) NOT REPORTED Normal [facility] Comment on above: Performed By: #### B MP #### [facility] [address] [facility] [place] [address] Vocational Aide: Con Oseguera MD WBC Morphology NOT REPORTED Normal [facility] Comment on above: Performed By: #### B MP #### [facility] [address] [facility] [place] [address] Vocational Aide: Con Oseguera MD Brain Natri. Peptideon 12-10 Natriuretic peptide B (Bld) [Mass/Vol] 1543 pg/mL High <300 [facility] Comment on above: Result Comment: Pro- BNP results cannot be compared to BNP results. Performed By: #### R EJEC, LIP, TROPI, CP, DIGC, BNP ####[facility] [id number] [facility] [place] [address] [facility] Director: Con Oseguera MD Natriuretic peptide B (Bld) [Mass/Vol] Pro-BNP Reference Range: Normal [facility] Comment on above: Result Comment: Rule Out: <300 Miranda Zone: Age <50 300-450 Age 50-75 300-900 Age >75 300-1800 Usually represents mild to moderate HF but other cardiopulmonary causes cannot be ruled out. Rule In: Age <50 >450 Age 50-75 >900 Age >75 >1800 Performed By: #### R EJEC, LIP, TROPI, CP, DIGC, BNP ####[facility] [id number] [facility] [place] [address] Lab Director: Con Oseguera MD CBC with Diffon 12-10-2018 Abs. Basophil 0.00 k/uL Normal 0.0-0.2 [facility] Comment on above: Performed By: #### P T, CDP ####[facility] [address] [place] [address] Lab Director: Con Oseguera MD Abs.Neutrophil (Seg) 10.73 k/uL High 1.3-9.1 [facility] Comment on above: Performed By: #### P T, CDP ####[facility] [address], [place] [phone] Director: Con Oseguera MD Basophils/100 WBC (Bld) 0 % Normal 0-2 [facility] Comment on above: Performed By: #### P T, CDP ####[facility] [address], [place] [phone] Director: Con Oseguera MD Eosinophils (Bld) [#/Vol] 0.13 10*3/uL Normal 0.0-0.4 [facility] Comment on above: Performed By: #### P T, CDP ####[facility] [address], [place] [phone] Director: Con Oseguera MD Eosinophils/100 WBC (Bld) 1 % Normal 0-4 [facility] Comment on above: Performed By: #### P T, CDP ####[facility] [address], [place] [address])[phone] Director: Con Oseguera MD Lymphocytes (Bld) [#/Vol] 1.07 10*3/uL Normal 1.0-4.8 [facility] Comment on above: Performed By: #### P T, CDP ####[facility] [address], [place] [phone] Director: Con Oseguera MD Lymphocytes/100 WBC (Bld) 8 % Low 24-44 [facility] Comment on above: Performed By: #### P T, CDP ####[facility] [address] [place] [address] Lab Director: Con Oseguera MD Monocytes (Bld) [#/Vol] 1.47 10*3/uL High 0.1-1.3 [facility] Comment on above: Performed By: #### P T, CDP ####[facility] [address], [place] [phone] Director: Con Oseguera MD Monocytes/100 WBC (Bld) 11 % High 1-7 [facility] Comment on above: Performed By: #### P T, CDP ####[facility] [address] [place] [address] Lab Director: Con Oseguera MD Morphology Theo (Bld) [Interp] ANISOCYTOSIS PRESENT Normal [facility] Comment on above: Result Comment: HYPO CHROMIA PRESENT MICROCYTOSIS PRESENT 1+ ELLIPTOCYTES FEW ECHINOCYTES Performed By: #### P T, CDP ####[facility] [address], [place] [phone] Director: Con Oseguera MD Neutrophil (Seg) 80 % High 36-66 [facility] Comment on above: Performed By: #### P T, CDP ####[facility] [address] [place] [address] Lab Director: Con Oseguera MD Erythrocyte distribution width (RBC) [Ratio] 19.0 % High 11.5-14.9 [facility] Comment on above: Performed By: #### P T, CDP ####[facility] [address], [place] [phone] Director: Con Oseguera MD Hematocrit (Bld) [Volume fraction] 28.3 % Low 41-53 [facility] Comment on above: Performed By: #### P T, CDP ####[facility] [address] [place] [address] Lab Director: Con Oseguera MD Hemoglobin (Bld) [Mass/Vol] 8.7 g/dL Low 13.5-17.5 [facility] Comment on above: Performed By: #### P T, CDP ####[facility] [id number] [facility] [place] [address] Lab Director: Con Oseguera MD MCH (RBC) [Entitic mass] 20.6 pg Low 26-34 [facility] Comment on above: Performed By: #### P T, CDP ####[facility] [id number] [facility], [place] [phone] Director: Con Oseguera MD MCHC (RBC) [Mass/Vol] 30.7 g/dL Low 31-37 [facility] Comment on above: Performed By: #### P T, CDP ####[facility] [address] [facility] [place] [address] Lab Director: Con Oseguera MD MCV (RBC) [Entitic vol] 67.1 fL Low 80-100 [facility] Comment on above: Performed By: #### P T, CDP ####[facility] [id number] [facility], [place] [phone] Director: Con Oseguera MD Platelet mean volume (Bld) [Entitic vol] 9.0 fL Normal 6.0-12.0 [facility] Comment on above: Performed By: #### P T, CDP ####[facility] [id number] [facility], [place] [phone] Director: Con Oseguera MD Platelets (Bld) [#/Vol] 249 10*3/uL Normal 150-450 [facility] Comment on above: Performed By: #### P T, CDP ####[facility] [id number] [facility] [place] [address] Lab Director: Con Oseguera MD RBC (Bld) [#/Vol] 4.22 10*6/uL Low 4.5-5.9 [facility] Comment on above: Performed By: #### P T, CDP ####[facility] [address] [place] [address] Lab Director: Con Oseguera MD WBC (Bld) [#/Vol] 13.4 10*3/uL High 3.5-11.0 [facility] Comment on above: Performed By: #### P T, CDP ####[facility] [id number] [facility], [place] [phone] Director: Con Oseguera MD Abs.Imm.Granulocyte NOT REPORTED Normal 0.00-0.30 [facility] Comment on above: Performed By: #### P T, CDP ####[facility] [id number] [facility], [place] [phone] Director: Con Oseguera MD Auto Diff Performed NOT REPORTED Normal [facility] Comment on above: Performed By: #### P T, CDP ####[facility] [address] [facility] [place] [address] Lab Director: Con Oseguera MD Immature granulocytes (Bld) [#/Vol] NOT REPORTED Normal 0 [facility] Comment on above: Performed By: #### P T, CDP ####[facility] [address] [facility] [place] [address] Lab Director: Con Oseguera MD NRBC Automated NOT REPORTED Normal [facility] Comment on above: Performed By: #### P T, CDP ####[facility] [address] [facility], [place] [phone] Director: Con Oseguera MD Platelets (Bld) [#/Vol] NOT REPORTED Normal [facility] Comment on above: Performed By: #### P T, CDP ####[facility] [address] [place] [address] Lab Director: Con Oseguera MD RBC morphology finding Nom (Bld) NOT REPORTED Normal [facility] Comment on above: Performed By: #### P T, CDP ####[facility] [address] [place] [address] Lab Director: Con Oseguera MD WBC Morphology NOT REPORTED Normal [facility] Comment on above: Performed By: #### P T, CDP ####[facility] [address] [place] [address] lab Director: Con Oseguera MD CT ABDOMEN [...] Sawyer Jr., DO 12/10/18 Final result Normal [facility] Comp Metabolic Profon 2018 (cont.) Normal [facility] Comment on above: Result Comment: Aver age GFR for 70 or more years old: 75 mL/min/1.73sq m Chronic Kidney Disease: <60 mL/min/1.73sq m Kidney failure: <15 mL/min/1.73sq m eGFR calculated using average adult body mass. Additional eGFR calculator available at: http://www.[email or web address] Margarita/multiple_crcl_2012.htm Performed By: #### R EJEC, LIP, TROPI, CP, DIGC, BNP ####[facility] [id number] [facility] [address] Lab Director: Con Oseguera MD Alkaline Phos 125 U/L Normal 40-129 [facility] Comment on above: Result Comment: SPEC IMEN SLIGHTLY HEMOLYZED, RESULTS MAY BE ADVERSELY AFFECTED. Performed By: #### R EJEC, LIP, TROPI, CP, DIGC, BNP ####[facility] [id number] [facility] [place] [address] lab Director: Con Oseguera MD ALT [Catalytic activity/Vol] 15 U/L Normal 5-41 [facility] Comment on above: Result Comment: SPEC IMEN SLIGHTLY HEMOLYZED, RESULTS MAY BE ADVERSELY AFFECTED. Performed By: #### R EJEC, LIP, TROPI, CP, DIGC, BNP ####[facility] [id number] [facility] [place] [address] Lab Director: Con Oseguera MD Anion gap [Moles/Vol] 17 mmol/L Normal 9-17 [facility] Comment on above: Performed By: #### R EJEC, LIP, TROPI, CP, DIGC, BNP ####[facility] [id number] [facility] [place] [address] Lab Director: Con Oseguera MD AST [Catalytic activity/Vol] 28 U/L Normal <40 [facility] Comment on above: Result Comment: SPEC IMEN SLIGHTLY HEMOLYZED, RESULTS MAY BE ADVERSELY AFFECTED. Performed By: #### R EJEC, LIP, TROPI, CP, DIGC, BNP ####[facility] [id number] [facility] [place] [address] Lab Director: Con Oseguera MD Bilirubin Ql (U) 0.51 mg/dL Normal 0.3-1.2 [facility] Comment on above: Result Comment: SPEC IMEN SLIGHTLY HEMOLYZED, RESULTS MAY BE ADVERSELY AFFECTED. Performed By: #### R EJEC, LIP, TROPI, CP, DIGC, BNP ####[facility] [id number] [facility] [place] [address] Lab Director: Con Oseguera MD Calcium [Mass/Vol] 9.1 mg/dL Normal 8.6-10.4 [facility] Comment on above: Result Comment: SPEC IMEN SLIGHTLY HEMOLYZED, RESULTS MAY BE ADVERSELY AFFECTED. Performed By: #### R EJEC, LIP, TROPI, CP, DIGC, BNP ####[facility] [id number] [facility] [place] [address] Lab Director: Con Oseguera MD GFR, Amer >60 Normal >60 [facility] Comment on above: Performed By: #### R EJEC, LIP, TROPI, CP, DIGC, BNP ####[facility] [id number] [place] [address] Lab Director: Con Oseguera MD GFR,non Amer >60 Normal >60 [facility] Comment on above: Performed By: #### R EJEC, LIP, TROPI, CP, DIGC, BNP ####[facility] [id number] [place] [address] Lab Director: Con Oseguera MD Potassium [Moles/Vol] 4.8 mmol/L Normal 3.7-5.3 [facility] Comment on above: Result Comment: SPEC IMEN SLIGHTLY HEMOLYZED, RESULTS MAY BE ADVERSELY AFFECTED. Performed By: #### R EJEC, LIP, TROPI, CP, DIGC, BNP ####[facility] [id number] [facility] [place] [address] Lab Director: Con Oseguera MD Protein [Mass/Vol] 6.9 g/dL Normal 6.4-8.3 [facility] Comment on above: Result Comment: SPEC IMEN SLIGHTLY HEMOLYZED, RESULTS MAY BE ADVERSELY AFFECTED. Performed By: #### R EJEC, LIP, TROPI, CP, DIGC, BNP ####[facility] [id number] [facility] [place] [address] Lab Director: Con Oseguera MD Sodium [Moles/Vol] 134 mmol/L Low 135-144 [facility] Comment on above: Result Comment: SPEC IMEN SLIGHTLY HEMOLYZED, RESULTS MAY BE ADVERSELY AFFECTED. Performed By: #### R EJEC, LIP, TROPI, CP, DIGC, BNP ####[facility] [id number] [place] [address] Lab Director: Con Oseguera MD Albumin [Mass/Vol] 4.1 g/dL Normal 3.5-5.2 [facility] Comment on above: Performed By: #### R EJEC, LIP, TROPI, CP, DIGC, BNP ####[facility] [id number] [place] [address] lab Director: Con Oseguera MD Chloride [Moles/Vol] 99 mmol/L Normal 98-107 [facility] Comment on above: Performed By: #### R EJEC, LIP, TROPI, CP, DIGC, BNP ####[facility] [id number] [place] [address] lab Director: Con Oseguera MD CO2 [Moles/Vol] 18 mmol/L Low 20-31 [facility] Comment on above: Performed By: #### R EJEC, LIP, TROPI, CP, DIGC, BNP ####[facility] [id number] [place] [address] Lab Director: Con Oseguera MD Creatinine [Mass/Vol] 0.98 mg/dL Normal 0.70-1.20 [facility] Comment on above: Performed By: #### R EJEC, LIP, TROPI, CP, DIGC, BNP ####[facility] [id number] [place] [address] lab Director: Con Oseguera MD Glucose [Mass/Vol] 148 mg/dL High 70-99 [facility] Comment on above: Performed By: #### R EJEC, LIP, TROPI, CP, DIGC, BNP ####[facility] [id number] [place] [address] lab Director: Con Oseguera MD Urea nitrogen [Mass/Vol] 24 mg/dL High 8-23 [facility] Comment on above: Performed By: #### R EJEC, LIP, TROPI, CP, DIGC, BNP ####[facility] [id number] [place] [address] Lab Director: Con Oseguera MD Albumin/Globulin [Mass ratio] NOT REPORTED Normal 1.0-2.5 [facility] Comment on above: Performed By: #### R EJEC, LIP, TROPI, CP, DIGC, BNP ####[facility] [id number] [place] [address] lab Director: Con Oseguera MD BUN/CRE Ratio NOT REPORTED Normal 9-20 [facility] Comment on above: Performed By: #### R EJEC, LIP, TROPI, CP, DIGC, BNP ####[facility] [id number] [facility] [place] [address] lab Director: Con Oseguera MD Staging: NOT REPORTED Normal [facility] Comment on above: Performed By: #### R EJEC, LIP, TROPI, CP, DIGC, BNP ####[facility] [address] [place] [address] lab Director: Con Oseguera MD Digoxinon 12-10-2018 Digoxin [Mass/Vol] ng/mL Low 0.5-2.0 [facility] Comment on above: Result Comment: Digoxin Reference Range: Heart Failure 0.5-0.9 Atrial Fibrillation 0.8-2.0 Performed By: #### R EJEC, LIP, TROPI, CP, DIGC, BNP ####[facility] [id number] [place] [address] Lab Director: Con Oseguera MD Digoxin [Mass/Vol] UNKNOWN Normal [facility] Comment on above: Performed By: #### R EJEC, LIP, TROPI, CP, DIGC, BNP ####[facility] [id number] [place] [address] lab Director: Con Oseguera MD Lipaseon 12-10-2018 Lipase [Catalytic activity/Vol] 48 U/L Normal 13-60 [facility] Comment on above: Result Comment: SPEC IMEN SLIGHTLY HEMOLYZED, RESULTS MAY BE ADVERSELY AFFECTED. Performed By: #### B MP #### [facility] Lab [address] [place] [address] Vocational Aide: Con Oseguera MD PTon 12-10-2018 INR Coag (PPP) [Relative time] 1.3 {INR} Normal [facility] Comment on above: Result Comment: Non-therapeutic Range: INR = 0.9-1.2 Therapeutic Range: Moderate Anticoagulant Intensity: INR = 2.0-3.0 High Anticoagulant Intensity: INR = 2.5-3.5 Performed By: #### P T, CDP ####[facility] [id number] [place] [address] Lab Director: Con Oseguera MD PT Coag (PPP) [Time] 16.5 s High 11.8-14.6 [facility] Comment on above: Performed By: #### P T, CDP ####[facility] [id number] [place] [address] Lab Director: Con Oseguera MD Specimen Rejectionon 019 Reason for rejection Unable to perform testing: Specimen clotted. Normal [facility] Comment on above: Performed By: #### B MP #### [facility] Lab [address] [place] [address] Vocational Aide: Con Oseguera MD Source of sample .BLOOD Normal [facility] Comment on above: Performed By: #### B MP #### [facility] Lab [address] [place] [address] Vocational Aide: Con Oseguera MD Test ordered CDP Normal [facility] Comment on above: Performed By: #### B MP #### [facility] Lab [address] [place] [address] Vocational Aide: Con Oseguera MD ----- NOT REPORTED Normal [facility] Comment on above: Performed By: #### B MP #### [facility] Lab [address] [facility] [place] [address] Vocational Aide: Con Oseguera MD Troponinon 12-10-2018 Troponin I.cardiac [Mass/Vol] 28 ng/L High 0-22 [facility] Comment on above: Result Comment: High Sensitivity Troponin values cannot be compared with other Troponin methodologies. Patients with high levels of Biotin oral intake (i.e >5mg/day) may have falsely decreased Troponin levels. Samples collected within 8 hours of biotin intake may require additional information for diagnosis. Performed By: #### T ROPI ####[facility] [id number] [facility] [place] [address] Lab Director: Con Oseguera MD Troponin I.cardiac [Mass/Vol] NOT REPORTED Normal [facility] Comment on above: Performed By: #### T ROPI ####[facility] [id number] [facility] [place] [address] Lab Director: Con Oseguera MD Troponin I.cardiac [Mass/Vol] 30 ng/L High 0-22 [facility] Comment on above: Result Comment: High Sensitivity [...] R EJEC, LIP, TROPI, CP, DIGC, BNP ####[facility] [id number] [facility] [place] [address] Lab Director: Con Oseguera MD Troponin I.cardiac [Mass/Vol] NOT REPORTED Normal [facility] Comment on above: Performed By: #### R EJEC, LIP, TROPI, CP, DIGC, BNP ####[facility] [id number] [place] [address] Lab Director: Con Oseguera MD Urinalysis, Routineon 2018 Acetoacetic Acid,Ur Negative Normal NEG [facility] Comment on above: Performed By: #### U A ####[facility] [id number] [place] [address] Lab Director: Con Oseguera MD Bilirubin, SemiQt,Ur Negative Normal NEG [facility] Comment on above: Performed By: #### U A ####[facility] [id number] [place] [address] Lab Director: Con Oseguera MD Color (U) YELLOW Normal YEL [facility] Comment on above: Performed By: #### U A ####[facility] [id number] [place] [address] Lab Director: Con Oseguera MD Comment Microscopic exam not performed based on chemical results unless requested in Normal [facility] Comment on above: Result Comment: orig inal order. Performed By: #### U A ####[facility] [id number] [place] [address] [phone] Director: Con Oseguera MD Glucose Ql (U) Negative Normal NEG [facility] Comment on above: Performed By: #### U A ####[facility] [id number] [place] [address] Lab Director: Con Oseguera MD Hemoglobin, Ur Negative Normal NEG [facility] Comment on above: Performed By: #### U A ####[facility] [address] [place] [address] Lab Director: Con Oseguera MD Leukocyte esterase Test strip Ql (U) Negative Normal NEG [facility] Comment on above: Performed By: #### U A ####[facility] [id number] [place] [address] [place] [address] [facility] Director: Con Oseguera MD Nitrite,Ur Negative Normal NEG [facility] Comment on above: Performed By: #### U A ####[facility] All[address] [place] [address] [facility] Director: Con Oseguera MD pH (U) 5.0 [pH] Normal 5.0-8.0 [facility] Comment on above: Performed By: #### U A ####[facility] [id number] [facility] [place] [address] lab Director: Con Oseguera MD Protein Ql (U) Negative Normal NEG [facility] Comment on above: Performed By: #### U A ####[address] [address] [facility] Director: Con Oseguera MD Specific gravity (U) [Rel density] 1.013 Normal 1.000-1.030 [facility] Comment on above: Performed By: #### U A ####[facility] [id number] [facility] [place] [address] lab Director: Con Oseguera MD Turbidity CLEAR Normal CLEAR [facility] Comment on above: Performed By: #### U A ####[facility] [id number] [place] [address].[place] [address] [facility] Director: Con Oseguera MD Urobilinogen,Ur Normal Normal NORM [facility] Comment on above: Performed By: #### U A ####[address] [address] [facility] Director: Con Oseguera MD XR CHEST [...] Sawyer Jr., DO 12/10/18 Final result Normal [facility] Basic Metabolic Profon 11-03 (cont.) Normal [facility] Comment on above: Result Comment: Aver age GFR for 70 or more years old: 75 mL/min/1.73sq m Chronic Kidney Disease: <60 mL/min/1.73sq m Kidney failure: <15 mL/min/1.73sq m eGFR calculated using average adult body mass. Additional eGFR calculator available at: http://www.[employer]/multiple_crcl_2012.htm Performed By: #### B MP #### [facility] Lab [address] [facility] [place] [address] Vocational Aide: Con Oseguera MD Anion gap [Moles/Vol] 15 mmol/L Normal 9-17 [facility] Comment on above: Performed By: #### B MP #### [facility] Lab [address] [facility] [place] [address] Vocational Aide: Con Oseguera MD Calcium [Mass/Vol] 8.9 mg/dL Normal 8.6-10.4 [facility] Comment on above: Performed By: #### B MP #### [facility] Lab [address] [facility] [place] [address] Vocational Aide: Con Oseguera MD Chloride [Moles/Vol] 100 mmol/L Normal 98-107 [facility] Comment on above: Performed By: #### B MP #### [facility] Lab [address] [facility] [place] [address] Vocational Aide: Con Oseguera MD CO2 [Moles/Vol] 21 mmol/L Normal 20-31 [facility] Comment on above: Performed By: #### B MP #### [facility] Lab [address] [place] [address] Vocational Aide: Con Oseguera MD Creatinine [Mass/Vol] 1.17 mg/dL Normal 0.70-1.20 [facility] Comment on above: Performed By: #### B MP #### [facility] Lab [address] [place] [address] Vocational Aide: Con Oseguera MD GFR, Amer >60 Normal >60 [facility] Comment on above: Performed By: #### B MP #### [facility] Lab [address] [place] [address] Vocational Aide: Con Oseguera MD GFR,non Amer 60 mL/min Low >60 [facility] Comment on above: Performed By: #### B MP #### [facility] Lab [address] [place] [address] Vocational Aide: Con Oseguera MD Glucose [Mass/Vol] 231 mg/dL High 70-99 [facility] Comment on above: Performed By: #### B MP #### [facility] Lab [address] [place] [address] Vocational Aide: Con Oseguera MD Potassium [Moles/Vol] 4.0 mmol/L Normal 3.7-5.3 [facility] Comment on above: Performed By: #### B MP #### [facility] Lab [address] [place] [address] Vocational Aide: Con Oseguera MD Sodium [Moles/Vol] 136 mmol/L Normal 135-144 [facility] Comment on above: Performed By: #### B MP #### [facility] Lab [address] [place] [address] Vocational Aide: Con Oseguera MD Urea nitrogen [Mass/Vol] 27 mg/dL High - [facility] Comment on above: Performed By: #### B MP #### [facility] Lab [address] [place] [address] Vocational Aide: Con Oseguera MD BUN/CRE Ratio NOT REPORTED Normal - [facility] Comment on above: Performed By: #### B MP #### [facility] Lab [address] [place] [address] Vocational Aide: Con Oseguera MD Staging: NOT REPORTED Normal [facility] Comment on above: Performed By: #### B MP #### [facility] Lab [address] [place] [address] Vocational Aide: Con Oseguera MD T3, Freeon 11-03-2018 Free T3 [Mass/Vol] 2.64 pg/mL Normal 2.02-4.43 [facility] Comment on above: Performed By: #### B MP #### [facility] Lab [facility] [place] [address] Vocational Aide: Con Oseguera MD Thyroid Stim. Horm.on 2018 TSH Qn 5.66 m[IU]/L High 0.30-5.00 [facility] Comment on above: Performed By: #### B MP #### [facility] Lab [address] [place] [address] Vocational Aide: Con Oseguera MD Thyroxine, Freeon 11-03-2018 Thyroxine, Free 0.92 ng/dL Low 0.93-1.70 [facility] Comment on above: Performed By: #### B MP #### [facility] Lab [address] [place] [address] Vocational Aide: Con Oseguera MD Basic Metabolic Profon 10-23 (cont.) Normal [facility] Comment on above: Result Comment: Aver age GFR for 70 or more years old: 75 mL/min/1.73sq m Chronic Kidney Disease: <60 mL/min/1.73sq m Kidney failure: <15 mL/min/1.73sq m eGFR calculated using average adult body mass. Additional eGFR calculator available at: http://www.[employer]ashar[employer]obs/multiple_crcl_2012.htm Performed By: #### B MP #### [facility] Lab [address] [place] [address] Vocational Aide: Con Oseguera MD Anion gap [Moles/Vol] 14 mmol/L Normal 9-17 [facility] Comment on above: Performed By: #### B MP #### [facility] Lab [facility] [place] [address] Vocational Aide: Con Oseguera MD Calcium [Mass/Vol] 9.3 mg/dL Normal 8.6-10.4 [facility] Comment on above: Performed By: #### B MP #### [facility] Lab [facility] [place] [address] Vocational Aide: Con Oseguera MD Chloride [Moles/Vol] 100 mmol/L Normal 98-107 [facility] Comment on above: Performed By: #### B MP #### [facility] Lab [address] [place] [address] Vocational Aide: Con Oseguera MD CO2 [Moles/Vol] 22 mmol/L Normal 20-31 [facility] Comment on above: Performed By: #### B MP #### [facility] Lab [address] [place] [address] Vocational Aide: Con Oseguera MD Creatinine [Mass/Vol] 2.03 mg/dL High 0.70-1.20 [facility] Comment on above: Performed By: #### B MP #### [facility] Lab [address] [place] [address] Vocational Aide: Con Oseguera MD GFR, Amer 38 mL/min Low >60 [facility] Comment on above: Performed By: #### B MP #### [facility] Lab [address] [place] [address] Vocational Aide: Con Oseguera MD GFR,non Amer 32 mL/min Low >60 [facility] Comment on above: Performed By: #### B MP #### [facility] Lab [address] [place] [address] Vocational Aide: Con Oseguera MD Glucose [Mass/Vol] 286 mg/dL High 70-99 [facility] Comment on above: Performed By: #### B MP #### [facility] Lab [address] [place] [address] Vocational Aide: Con Oseguera MD Potassium [Moles/Vol] 5.2 mmol/L Normal 3.7-5.3 [facility] Comment on above: Performed By: #### B MP #### [facility] Lab [address] [place] [address] Vocational Aide: Con Oseguera MD Sodium [Moles/Vol] 136 mmol/L Normal 135-144 [facility] Comment on above: Performed By: #### B MP #### [facility] Lab [facility] [place] [address] Vocational Aide: Con Oseguera MD Urea nitrogen [Mass/Vol] 51 mg/dL High 8-23 [facility] Comment on above: Performed By: #### B MP #### [facility] Lab [address] [place] [address] Vocational Aide: Con Oseguera MD BUN/CRE Ratio NOT REPORTED Normal 9-20 [facility] Comment on above: Performed By: #### B MP #### [facility] Lab [address] [place] [address] Vocational Aide: Con Oseguera MD Staging: NOT REPORTED Normal [facility] Comment on above: Performed By: #### B MP #### [facility] Lab [facility] [place] [address] Vocational Aide: Con Oseguera MD CBC with Diffon 10-23-2018 Abs. Basophil 0.09 k/uL Normal 0.0-0.2 [facility] Comment on above: Performed By: #### B MP #### [facility] Lab [facility] [place] [address] Vocational Aide: Con Oseguera MD Abs.Neutrophil (Seg) 6.45 k/uL Normal 1.3-9.1 [facility] Comment on above: Performed By: #### B MP #### [facility] Lab [facility] [place] [address] Vocational Aide: Con Oseguera MD Basophils/100 WBC (Bld) 1 % Normal 0-2 [facility] Comment on above: Performed By: #### B MP #### [facility] Lab [facility] [facility] [place] [address] Vocational Aide: Con Oseguera MD Eosinophils (Bld) [#/Vol] 0.17 10*3/uL Normal 0.0-0.4 [facility] Comment on above: Performed By: #### B MP #### [facility] Lab [facility] [facility] [place] [address] Vocational Aide: Con Oseguera MD Eosinophils/100 WBC (Bld) 2 % Normal 0-4 [facility] Comment on above: Performed By: #### B MP #### [facility] Lab [address] [place] [address] Vocational Aide: Con Oseguera MD Lymphocytes (Bld) [#/Vol] 1.19 10*3/uL Normal 1.0-4.8 [facility] Comment on above: Performed By: #### B MP #### [facility] Lab [address] [place] [address] Vocational Aide: Con Oseguera MD Lymphocytes/100 WBC (Bld) 14 % Low 24-44 [facility] Comment on above: Performed By: #### B MP #### [facility] Lab [address] [place] [address] Vocational Aide: Con Oseguera MD Monocytes (Bld) [#/Vol] 0.60 10*3/uL Normal 0.1-1.3 [facility] Comment on above: Performed By: #### B MP #### [facility] Lab [address] [facility] [place] [address] Vocational Aide: Con Oseguera MD Monocytes/100 WBC (Bld) 7 % Normal 1-7 [facility] Comment on above: Performed By: #### B MP #### [facility] Lab [facility] [facility] [place] [address] Vocational Aide: Con Oseguera MD Morphology Theo (Bld) [Interp] ANISOCYTOSIS PRESENT Normal [facility] Comment on above: Result Comment: HYPO CHROMIA PRESENT MICROCYTOSIS PRESENT 1+ ELLIPTOCYTES 1+ ECHINOCYTES Performed By: #### B MP #### [facility] Lab [address] [place] [address] Vocational Aide: Con Oseguera MD Neutrophil (Seg) 76 % High 36-66 [facility] Comment on above: Performed By: #### B MP #### [facility] Lab [address] [place] [address] Vocational Aide: Con Oseguera MD Erythrocyte distribution width (RBC) [Ratio] 21.6 % High 11.5-14.9 [facility] Comment on above: Performed By: #### B MP #### [facility] [place] [address] Vocational Aide: Con Oseguera MD Hematocrit (Bld) [Volume fraction] 27.3 % Low 41-53 [facility] Comment on above: Performed By: #### B MP #### [facility] [place] [address] Vocational Aide: Con Oseguera MD Hemoglobin (Bld) [Mass/Vol] 8.5 g/dL Low 13.5-17.5 [facility] Comment on above: Performed By: #### B MP #### [facility] [place] [address] Vocational Aide: Con Oseguera MD MCH (RBC) [Entitic mass] 21.1 pg Low 26-34 [facility] Comment on above: Performed By: #### B MP #### [facility] [place] [address] Vocational Aide: Con Oseguera MD MCHC (RBC) [Mass/Vol] 30.9 g/dL Low 31-37 [facility] Comment on above: Performed By: #### B MP #### [facility]0 [facility] [place] [address] Vocational Aide: Con Oseguera MD MCV (RBC) [Entitic vol] 68.3 fL Low 80-100 [facility] Comment on above: Performed By: #### B MP #### [facility] [place] [address] Vocational Aide: Con Oseguera MD Platelet mean volume (Bld) [Entitic vol] 9.5 fL Normal 6.0-12.0 [facility] Comment on above: Performed By: #### B MP #### [facility] [address] [place] [address] Vocational Aide: Con Oseguera MD Platelets (Bld) [#/Vol] 300 10*3/uL Normal 150-450 [facility] Comment on above: Performed By: #### B MP #### [facility] [address] [place] [address] Vocational Aide: Con Oseguera MD RBC (Bld) [#/Vol] 4.00 10*6/uL Low 4.5-5.9 [facility] Comment on above: Performed By: #### B MP #### [facility] [address] [facility] [place] [address] Vocational Aide: Con Oseguera MD WBC (Bld) [#/Vol] 8.5 10*3/uL Normal 3.5-11.0 [facility] Comment on above: Performed By: #### B MP #### [facility] [address] [place] [address] Vocational Aide: Con Oseguera MD Abs.Imm.Granulocyte NOT REPORTED Normal 0.00-0.30 [facility] Comment on above: Performed By: #### B MP #### [facility] [address] [place] [address] Vocational Aide: Con Oseguera MD Auto Diff Performed NOT REPORTED Normal [facility] Comment on above: Performed By: #### B MP #### [facility] [address] [facility] [place] [address] Vocational Aide: Con Oseguera MD Immature granulocytes (Bld) [#/Vol] NOT REPORTED Normal 0 [facility] Comment on above: Performed By: #### B MP #### [facility] [address] [facility] [place] [address] Vocational Aide: Con Oseguera MD NRBC Automated NOT REPORTED Normal [facility] Comment on above: Performed By: #### B MP #### [facility] [address] [facility] [place] [address] Vocational Aide: Con Oseguera MD Platelets (Bld) [#/Vol] NOT REPORTED Normal [facility] Comment on above: Performed By: #### B MP #### [facility] [address] [facility] [place] [address] Vocational Aide: Con Oseguera MD RBC morphology finding Nom (Bld) NOT REPORTED Normal [facility] Comment on above: Performed By: #### B MP #### [facility] [address] [facility] [place] [address] Vocational Aide: Con Oseguera MD WBC Morphology NOT REPORTED Normal [facility] Comment on above: Performed By: #### B MP #### [facility] [address] [facility] [place] [address] Vocational Aide: Con Oseguera MD Comp Metabolic Profon 2018 (cont.) Normal [facility] Comment on above: Result Comment: Aver age GFR for 70 or more years old: 75 mL/min/1.73sq m Chronic Kidney Disease: <60 mL/min/1.73sq m Kidney failure: <15 mL/min/1.73sq m eGFR calculated using average adult body mass. Additional eGFR calculator available at: http://[email or web address] [email or web address]/multiple_crcl_2012.htm Performed By: #### C P, MG, CB, CDP #### [facility] [address] [facility] [place] [address] Vocational Aide: Cno Oseguera MD Albumin [Mass/Vol] 3.9 g/dL Normal 3.5-5.2 [facility] Comment on above: Performed By: #### C P, MG, CB, CDP #### [facility] [address] [place] [address] Vocational Aide: Con Oseguera MD Alkaline Phos 90 U/L Normal 40-129 [facility] Comment on above: Performed By: #### C P, MG, CB, CDP #### [facility] [address] [place] [address] Vocational Aide: Con Oseguera MD ALT [Catalytic activity/Vol] 18 U/L Normal 5-41 [facility] Comment on above: Performed By: #### C P, MG, CB, CDP #### [facility] [address] [place] [address] Vocational Aide: Con Oseguera MD Anion gap [Moles/Vol] 14 mmol/L Normal 9-17 [facility] Comment on above: Performed By: #### C P, MG, CB, CDP #### [facility] [address] [place] [address] Vocational Aide: Con Oseguera MD AST [Catalytic activity/Vol] 21 U/L Normal <40 [facility] Comment on above: Performed By: #### C P, MG, CB, CDP #### [facility] [address] [place] [address] Vocational Aide: Con Oseguera MD Bilirubin Ql (U) 0.34 mg/dL Normal 0.3-1.2 [facility] Comment on above: Performed By: #### C P, MG, CB, CDP #### [facility] [address] [place] [address] Vocational Aide: Con Oseguera MD Calcium [Mass/Vol] 9.3 mg/dL Normal 8.6-10.4 [facility] Comment on above: Performed By: #### C P, MG, CB, CDP #### [facility] [address] [place] [address] Vocational Aide: Con Oseguera MD Chloride [Moles/Vol] 100 mmol/L Normal 98-107 [facility] Comment on above: Performed By: #### C P, MG, CB, CDP #### [facility] [address] [place] [address] Vocational Aide: Con Oseguera MD CO2 [Moles/Vol] 22 mmol/L Normal 20-31 [facility] Comment on above: Performed By: #### C P, MG, CB, CDP #### [facility] [place] [address] Vocational Aide: Con Oseguera MD Creatinine [Mass/Vol] 2.03 mg/dL High 0.70-1.20 [facility] Comment on above: Performed By: #### C P, MG, CB, CDP #### [facility] [address] [place] [address] Vocational Aide: Con Oseguera MD GFR, Amer 38 mL/min Low >60 [facility] Comment on above: Performed By: #### C P, MG, CB, CDP #### [facility] [address] [place] [address] Vocational Aide: Con Oseguera MD GFR,non Amer 32 mL/min Low >60 [facility] Comment on above: Performed By: #### C P, MG, CB, CDP #### [facility] [address] [place] [address] Vocational Aide: Con Oseguera MD Glucose [Mass/Vol] 286 mg/dL High 70-99 [facility] Comment on above: Performed By: #### C P, MG, CB, CDP #### [facility] [address] [place] [address] Vocational Aide: Con Oseguera MD Potassium [Moles/Vol] 5.2 mmol/L Normal 3.7-5.3 [facility] Comment on above: Performed By: #### C P, MG, CB, CDP #### [facility] [address] [place] [address] Vocational Aide: Con Oseguera MD Protein [Mass/Vol] 6.6 g/dL Normal 6.4-8.3 [facility] Comment on above: Performed By: #### C P, MG, CB, CDP #### [facility] [place] [address] Vocational Aide: Con Oseguera MD Sodium [Moles/Vol] 136 mmol/L Normal 135-144 [facility] Comment on above: Performed By: #### C P, MG, CB, CDP #### [facility] [place] [address] Vocational Aide: Con Oseguera MD Urea nitrogen [Mass/Vol] 51 mg/dL High 8-23 [facility] Comment on above: Performed By: #### C P, MG, CB, CDP #### [facility] [facility] [place] [address] Vocational Aide: Con Oseguera MD Albumin/Globulin [Mass ratio] NOT REPORTED Normal 1.0-2.5 [facility] Comment on above: Performed By: #### C P, MG, CB, CDP #### [facility] [place] [address] Vocational Aide: Con Oseguera MD BUN/CRE Ratio NOT REPORTED Normal 9-20 [facility] Comment on above: Performed By: #### C P, MG, CB, CDP #### [facility] [address] [place] [address] Vocational Aide: Con Oseguera MD Staging: NOT REPORTED Normal [facility] Comment on above: Performed By: #### C P, MG, CB, CDP #### [facility] [address] [place] [address] Vocational Aide: Con Oseguera MD Magnesiumon 10-23-2018 Magnesium [Mass/Vol] 2.3 mg/dL Normal 1.6-2.6 [facility] Comment on above: Performed By: #### B MP #### [facility] [address] [place] [address] Vocational Aide: Con Oseguera MD Phosphorus, Inorg.on 019 Phosphorus, Inorg. 4.8 mg/dL High 2.5-4.5 [facility] Comment on above: Performed By: #### B MP #### [facility] [place] [address] Vocational Aide: Con Oseguera MD Basic Metabolic Profon 10-12 (cont.) Normal [facility] Comment on above: Result Comment: Aver age GFR for 70 or more years old: 75 mL/min/1.73sq m Chronic Kidney Disease: <60 mL/min/1.73sq m Kidney failure: <15 mL/min/1.73sq m eGFR calculated using average adult body mass. Additional eGFR calculator available at: http://www.Tynt.com/multiple_crcl_2012.htm Performed By: #### B MP #### [facility] [address] [place] [address] Vocational Aide: Con Oseguera MD Anion gap [Moles/Vol] 14 mmol/L Normal 9-17 [facility] Comment on above: Performed By: #### B MP #### [facility] [address] [place] [address] Vocational Aide: Con Oseguera MD Calcium [Mass/Vol] 9.6 mg/dL Normal 8.6-10.4 [facility] Comment on above: Performed By: #### B MP #### [facility] [address] [place] [address] Vocational Aide: Con Oseguera MD Chloride [Moles/Vol] 103 mmol/L Normal 98-107 [facility] Comment on above: Performed By: #### B MP #### [facility] [address] [place] [address] Vocational Aide: Con Oseguera MD CO2 [Moles/Vol] 21 mmol/L Normal 20-31 [facility] Comment on above: Performed By: #### B MP #### [facility] [address] [place] [address] Vocational Aide: Con Oseguera MD Creatinine [Mass/Vol] 1.52 mg/dL High 0.70-1.20 [facility] Comment on above: Performed By: #### B MP #### [facility] [address] [place] [address] Vocational Aide: Con Oseguera MD GFR, Amer 54 mL/min Low >60 [facility] Comment on above: Performed By: #### B MP #### [facility] [address] [place] [address] Vocational Aide: Con Oseguera MD GFR,non Amer 44 mL/min Low >60 [facility] Comment on above: Performed By: #### B MP #### [facility] [address] [place] [address] Vocational Aide: Con Oseguera MD Glucose [Mass/Vol] 219 mg/dL High 70-99 [facility] Comment on above: Performed By: #### B MP #### [facility] [address] [place] [address] Vocational Aide: Con Oesguera MD Potassium [Moles/Vol] 4.8 mmol/L Normal 3.7-5.3 [facility] Comment on above: Performed By: #### B MP #### [facility] [address] [place] [address] Vocational Aide: Con Oseguera MD Sodium [Moles/Vol] 138 mmol/L Normal 135-144 [facility] Comment on above: Performed By: #### B MP #### [facility] [place] [address] Vocational Aide: Con Oseguera MD Urea nitrogen [Mass/Vol] 48 mg/dL High 8-23 [facility] Comment on above: Performed By: #### B MP #### [facility] [place] [address] Vocational Aide: Con Oseguera MD BUN/CRE Ratio NOT REPORTED Normal 9-20 [facility] Comment on above: Performed By: #### B MP #### [facility] [place] [address] Vocational Aide: Con Oseguera MD Staging: NOT REPORTED Normal [facility] Comment on above: Performed By: #### B MP #### [facility] [place] [address] Vocational Aide: Con Oseguera MD Basic Metabolic Profon 09-28 (cont.) Normal [facility] Comment on above: Result Comment: Aver age GFR for 70 or more years old: 75 mL/min/1.73sq m Chronic Kidney Disease: <60 mL/min/1.73sq m Kidney failure: <15 mL/min/1.73sq m eGFR calculated using average adult body mass. Additional eGFR calculator available at: http://www.Tynt.com/multiple_crcl_2012.htm Performed By: #### B MP #### [facility] [address] [place] [address] Vocational Aide: Con Oseguera MD Anion gap [Moles/Vol] 13 mmol/L Normal 9-17 [facility] Comment on above: Performed By: #### B MP #### [facility] [place] [address] Vocational Aide: Con Oseguera MD Calcium [Mass/Vol] 9.2 mg/dL Normal 8.6-10.4 [facility] Comment on above: Performed By: #### B MP #### [facility] [address] [place] [address] Vocational Aide: Con Oseguera MD Chloride [Moles/Vol] 100 mmol/L Normal 98-107 [facility] Comment on above: Performed By: #### B MP #### [facility] [place] [address] Vocational Aide: Con Oseguera MD CO2 [Moles/Vol] 24 mmol/L Normal 20-31 [facility] Comment on above: Performed By: #### B MP #### [facility] [place] [address] Vocational Aide: Con Oseguera MD Creatinine [Mass/Vol] 1.46 mg/dL High 0.70-1.20 [facility] Comment on above: Performed By: #### B MP #### [facility] [place] [address] Vocational Aide: Con Oseguera MD GFR, Amer 56 mL/min Low >60 [facility] Comment on above: Performed By: #### B MP #### [facility] [address] [place] [address] Vocational Aide: Con Oseguera MD GFR,non Amer 46 mL/min Low >60 [facility] Comment on above: Performed By: #### B MP #### [facility] [address] [place] [address] Vocational Aide: Con Oseguera MD Glucose [Mass/Vol] 269 mg/dL High 70-99 [facility] Comment on above: Performed By: #### B MP #### [facility] [place] [address] Vocational Aide: Con Oseguera MD Potassium [Moles/Vol] 4.7 mmol/L Normal 3.7-5.3 [facility] Comment on above: Performed By: #### B MP #### [facility] [place] [address] Vocational Aide: Con Oseguera MD Sodium [Moles/Vol] 137 mmol/L Normal 135-144 [facility] Comment on above: Performed By: #### B MP #### [facility] [facility] [place] [address] Vocational Aide: Con Oseguera MD Urea nitrogen [Mass/Vol] 41 mg/dL High 8-23 [facility] Comment on above: Performed By: #### B MP #### [facility] [place] [address] Vocational Aide: Con Oseguera MD BUN/CRE Ratio NOT REPORTED Normal 9-20 [facility] Comment on above: Performed By: #### B MP #### [facility] [address] [facility] [place] [address] Vocational Aide: Con Oseguera MD Staging: NOT REPORTED Normal [facility] Comment on above: Performed By: #### B MP #### [facility] [address] [place] [address] Vocational Aide: Con Oseguera MD Basic Metabolic Profon 09-20 (cont.) Normal [facility] Comment on above: Result Comment: Aver age GFR for 70 or more years old: 75 mL/min/1.73sq m Chronic Kidney Disease: <60 mL/min/1.73sq m Kidney failure: <15 mL/min/1.73sq m eGFR calculated using average adult body mass. Additional eGFR calculator available at: http://www.BasharJobs/multiple_crcl_2012.htm Performed By: #### H H, BMP #### [facility] [facility] [place] [address] Vocational Aide: Con Oseguera MD Anion gap [Moles/Vol] 14 mmol/L Normal 9-17 [facility] Comment on above: Performed By: #### H H, BMP #### [facility] [place] [address] Vocational Aide: Con Oseguera MD Calcium [Mass/Vol] 9.1 mg/dL Normal 8.6-10.4 [facility] Comment on above: Performed By: #### H H, BMP #### [facility] [address] [facility] [place] [address] Vocational Aide: Con Oseguera MD Chloride [Moles/Vol] 98 mmol/L Normal 98-107 [facility] Comment on above: Performed By: #### H H, BMP #### [facility] [address] [place] [address] Vocational Aide: Con Oseguera MD CO2 [Moles/Vol] 24 mmol/L Normal 20-31 [facility] Comment on above: Performed By: #### H H, BMP #### [facility] [address] [place] [address] Vocational Aide: Con Oseguera MD Creatinine [Mass/Vol] 1.48 mg/dL High 0.70-1.20 [facility] Comment on above: Performed By: #### H H, BMP #### [facility] [address] [place] [address] Vocational Aide: Con Oseguera MD GFR, Amer 55 mL/min Low >60 [facility] Comment on above: Performed By: #### H H, BMP #### [facility] [address] [place] [address] Vocational Aide: Con Oseguera MD GFR,non Amer 46 mL/min Low >60 [facility] Comment on above: Performed By: #### H H, BMP #### [facility] [address] [place] [address] Vocational Aide: Con Oseguera MD Glucose [Mass/Vol] 168 mg/dL High 70-99 [facility] Comment on above: Performed By: #### H H, BMP #### [facility] [place] [address] Vocational Aide: Con Oseguera MD Potassium [Moles/Vol] 4.6 mmol/L Normal 3.7-5.3 [facility] Comment on above: Performed By: #### H H, BMP #### [facility] [address] [place] [address] Vocational Aide: Con Oseguera MD Sodium [Moles/Vol] 136 mmol/L Normal 135-144 [facility] Comment on above: Performed By: #### H H, BMP #### [facility] [address] [place] [address] Vocational Aide: Con Oseguera MD Urea nitrogen [Mass/Vol] 34 mg/dL High 8- [facility] Comment on above: Performed By: #### H H, BMP #### [facility] [address] [place] [address] Vocational Aide: Con Oseguera MD BUN/CRE Ratio NOT REPORTED Normal - [facility] Comment on above: Performed By: #### H H, BMP #### [facility] [address] [place] [address] Vocational Aide: Con Oseguera MD Staging: NOT REPORTED Normal [facility] Comment on above: Performed By: #### H H, BMP #### [facility] [address] [place] [address] Vocational Aide: Con Oseguera MD Hgb/Hcton 09-20-2018 Hematocrit (Bld) [Volume fraction] 26.8 % Low 41-53 [facility] Comment on above: Performed By: #### H H, BMP #### [facility] [address] [place] [address] Vocational Aide: Con Oseguera MD Hemoglobin (Bld) [Mass/Vol] 8.3 g/dL Low 13.5-17.5 [facility] Comment on above: Performed By: #### H H, BMP #### [facility] [address] [place] [address] Vocational Aide: Con Oseguera MD Basic Metabolic Profon 09-07 (cont.) Normal [facility] Comment on above: Result Comment: Aver age GFR for 70 or more years old: 75 mL/min/1.73sq m Chronic Kidney Disease: <60 mL/min/1.73sq m Kidney failure: <15 mL/min/1.73sq m eGFR calculated using average adult body mass. Additional eGFR calculator available at: http://www.Tynt.Anita Margarita/multiple_crcl_2012.htm Performed By: #### B MP #### [facility] [address] [place] [address] Vocational Aide: Con Oseguera MD Anion gap [Moles/Vol] 10 mmol/L Normal 9-17 [facility] Comment on above: Performed By: #### B MP #### [facility] [address] [place] [address] Vocational Aide: Con Oseguera MD Calcium [Mass/Vol] 9.1 mg/dL Normal 8.6-10.4 [facility] Comment on above: Performed By: #### B MP #### [facility] [place] [address] Vocational Aide: Con Oseguera MD Chloride [Moles/Vol] 103 mmol/L Normal 98-107 [facility] Comment on above: Performed By: #### B MP #### [facility] [place] [address] Vocational Aide: Con Oseguera MD CO2 [Moles/Vol] 25 mmol/L Normal 20-31 [facility] Comment on above: Performed By: #### B MP #### [facility] [address] [facility] [place] [address] Vocational Aide: Con Oseguera MD Creatinine [Mass/Vol] 1.25 mg/dL High 0.70-1.20 [facility] [place] Comment on above: Performed By: #### B MP #### [facility] [place] [address] Vocational Aide: Con Oseguera MD GFR, Amer >60 Normal >60 [facility] Comment on above: Performed By: #### B MP #### [facility] [address] [place] [address] Vocational Aide: Con Oseguera MD GFR,non Amer 55 mL/min Low >60 [facility] Comment on above: Performed By: #### B MP #### [facility] [address] [place] [address] Vocational Aide: Con Oseguera MD Glucose [Mass/Vol] 123 mg/dL High 70-99 [facility] Comment on above: Performed By: #### B MP #### [facility] [address] [place] [address] Vocational Aide: Con Oseguera MD Potassium [Moles/Vol] 4.7 mmol/L Normal 3.7-5.3 [facility] Comment on above: Performed By: #### B MP #### [facility] [address] [place] [address] Vocational Aide: Con Oseguera MD Sodium [Moles/Vol] 138 mmol/L Normal 135-144 [facility] Comment on above: Performed By: #### B MP #### [facility] [address] [place] [address] Vocational Aide: Con Oseguera MD Urea nitrogen [Mass/Vol] 28 mg/dL High 8-23 [facility] Comment on above: Performed By: #### B MP #### [facility] [address] [place] [address] Vocational Aide: Con Oseguera MD BUN/CRE Ratio NOT REPORTED Normal 9-20 [facility] Comment on above: Performed By: #### B MP #### [facility] [address] [place] [address] Vocational Aide: Con Oseguera MD Staging: NOT REPORTED Normal [facility] Comment on above: Performed By: #### B MP #### [facility] [address] [place] [address] Vocational Aide: Con Oseguera MD Basic Metabolic Profon 08-31 (cont.) Normal [facility] Comment on above: Result Comment: Aver age GFR for 70 or more years old: 75 mL/min/1.73sq m Chronic Kidney Disease: <60 mL/min/1.73sq m Kidney failure: <15 mL/min/1.73sq m eGFR calculated using average adult body mass. Additional eGFR calculator available at: http://www.BasharJobs/multiple_crcl_2011.htm Performed By: #### B MP #### [facility] [address] [facility] [place] [address] Vocational Aide: Con Oseguera MD Anion gap [Moles/Vol] 11 mmol/L Normal 9-17 [facility] Comment on above: Performed By: #### B MP #### [facility] [address] [facility] [place] [address] Vocational Aide: Con Oseguera MD Calcium [Mass/Vol] 9.4 mg/dL Normal 8.6-10.4 [facility] Comment on above: Performed By: #### B MP #### [facility] [address] [facility] [place] [address] Vocational Aide: Con Oseguera MD Chloride [Moles/Vol] 100 mmol/L Normal 98-107 [facility] Comment on above: Performed By: #### B MP #### [facility] [place] [address] Vocational Aide: Con Oseguera MD CO2 [Moles/Vol] 24 mmol/L Normal 20-31 [facility] Comment on above: Performed By: #### B MP #### [facility] [address] [place] [address] Vocational Aide: Con Oseguera MD Creatinine [Mass/Vol] 1.35 mg/dL High 0.70-1.20 [facility] Comment on above: Performed By: #### B MP #### [facility] [address] [place] [address] Vocational Aide: Con Oseguera MD GFR, Amer >60 Normal >60 [facility] Comment on above: Performed By: #### B MP #### [facility] [address] [place] [address] Vocational Aide: Con Oseguera MD GFR,non Amer 51 mL/min Low >60 [facility] Comment on above: Performed By: #### B MP #### [facility] [address] [place] [address] Vocational Aide: Con Oseguera MD Glucose [Mass/Vol] 133 mg/dL High 70-99 [facility] Comment on above: Performed By: #### B MP #### [facility] [address] [place] [address] Vocational Aide: Con Oseguera MD Potassium [Moles/Vol] 4.8 mmol/L Normal 3.7-5.3 [facility] Comment on above: Performed By: #### B MP #### [facility] [address] [place] [address] Vocational Aide: Con Oseguera MD Sodium [Moles/Vol] 135 mmol/L Normal 135-144 [facility] Comment on above: Performed By: #### B MP #### [facility] [address] [place] [address] Vocational Aide: Con Oseguera MD Urea nitrogen [Mass/Vol] 35 mg/dL High 8-23 [facility] Comment on above: Performed By: #### B MP #### [facility] [address] [place] [address] Vocational Aide: Con Oseguera MD BUN/CRE Ratio NOT REPORTED Normal 03-16 [facility] Comment on above: Performed By: #### B MP #### [facility] [address] [place] [address] Vocational Aide: Cno Oseguera MD Staging: NOT REPORTED Normal [facility] Comment on above: Performed By: #### B MP #### [facility] [address] [place] [address] Vocational Aide: Con Oseguera MD XR ABDOMEN (KUB) (SINGLE [...] Crow Wright MD 08/21/18 Final result Normal [facility] Basic Metabolic Profon 08-16 (cont.) Normal [facility] Comment on above: Result Comment: Aver age GFR for 70 or more years old: 75 mL/min/1.73sq m Chronic Kidney Disease: <60 mL/min/1.73sq m Kidney failure: <15 mL/min/1.73sq m eGFR calculated using average adult body mass. Additional eGFR calculator available at: http://www.Tynt.Anita Margarita/multiple_crcl_2012.htm Performed By: #### B MP #### [facility] [address] [place] [address] Vocational Aide: Con Oseguera MD Anion gap [Moles/Vol] 11 mmol/L Normal 9-17 [facility] Comment on above: Performed By: #### B MP #### [facility] [address] [place] [address] Vocational Aide: Con Oseguera MD Calcium [Mass/Vol] 9.0 mg/dL Normal 8.6-10.4 [facility] Comment on above: Performed By: #### B MP #### [facility] [facility] [place] [address] Vocational Aide: Con Oseguera MD Chloride [Moles/Vol] 99 mmol/L Normal 98-107 [facility] Comment on above: Performed By: #### B MP #### [facility] [place] [address] Vocational Aide: Con Oseguera MD CO2 [Moles/Vol] 26 mmol/L Normal 20-31 [facility] Comment on above: Performed By: #### B MP #### [facility] [place] [address] Vocational Aide: Con Oseguera MD Creatinine [Mass/Vol] 1.46 mg/dL High 0.70-1.20 [facility] Comment on above: Performed By: #### B MP #### [facility] [place] [address] Vocational Aide: Con Oseguera MD GFR, Amer 56 mL/min Low >60 [facility] Comment on above: Performed By: #### B MP #### [facility] [address] [place] [address] Vocational Aide: Con Oseguera MD GFR,non Amer 46 mL/min Low >60 [facility] Comment on above: Performed By: #### B MP #### [facility] [address] [place] [address] Vocational Aide: Con Oseguera MD Glucose [Mass/Vol] 160 mg/dL High 70-99 [facility] Comment on above: Performed By: #### B MP #### [facility] [address] [place] [address] Vocational Aide: Con Oseguera MD Potassium [Moles/Vol] 4.4 mmol/L Normal 3.7-5.3 [facility] Comment on above: Performed By: #### B MP #### [facility] [address] [place] [address] Vocational Aide: Con Oseguera MD Sodium [Moles/Vol] 136 mmol/L Normal 135-144 [facility] Comment on above: Performed By: #### B MP #### [facility] [address] [place] [address] Vocational Aide: Con Oseguera MD Urea nitrogen [Mass/Vol] 42 mg/dL High 8-23 [facility] Comment on above: Performed By: #### B MP #### [facility] [address] [place] [address] Vocational Aide: Con Oseguera MD BUN/CRE Ratio NOT REPORTED Normal 9-20 [facility] Comment on above: Performed By: #### B MP #### [facility] [address] [place] [address] Vocational Aide: Con Oseguera MD Staging: NOT REPORTED Normal [facility] Comment on above: Performed By: #### B MP #### [facility] [place] [address] Vocational Aide: Con Oseguera MD CBCon 07-11-2018 Erythrocyte distribution width (RBC) [Ratio] 18.8 % High 11.5-14.9 [facility] Comment on above: Performed By: #### C BC #### [facility] [place] [address] Vocational Aide: Con Oseguera MD Hematocrit (Bld) [Volume fraction] 23.1 % Low 41-53 [facility] Comment on above: Performed By: #### C BC #### [facility] [address] [place] [address] Vocational Aide: Con Oseguera MD Hemoglobin (Bld) [Mass/Vol] 7.0 g/dL Critically low 13.5-17.5 [facility] Comment on above: Performed By: #### C BC #### [facility] [address] [place] [address] Vocational Aide: Con Oseguera MD MCH (RBC) [Entitic mass] 21.3 pg Low 26-34 [facility] Comment on above: Performed By: #### C BC #### [facility] [address] [place] [address] Vocational Aide: Con Oseguera MD MCHC (RBC) [Mass/Vol] 30.1 g/dL Low 31-37 [facility] Comment on above: Performed By: #### C BC #### [facility] [address] [place] [address] Vocational Aide: Con Oseguera MD MCV (RBC) [Entitic vol] 70.8 fL Low 80-100 [facility] Comment on above: Performed By: #### C BC #### [facility] [address] [place] [address] Vocational Aide: Con Oseguera MD Platelet mean volume (Bld) [Entitic vol] 8.8 fL Normal 6.0-12.0 [facility] Comment on above: Performed By: #### C BC #### [facility] [address] [facility] [place] [address] Vocational Aide: Con Oseguera MD Platelets (Bld) [#/Vol] 484 10*3/uL High 150-450 [facility] Comment on above: Performed By: #### C BC #### [facility] [address] [facility] [place] [address] Vocational Aide: Con Oseguera MD RBC (Bld) [#/Vol] 3.26 10*6/uL Low 4.5-5.9 [facility] Comment on above: Performed By: #### C BC #### [facility] [address] [facility] [place] [address] Vocational Aide: Con Oseguera MD WBC (Bld) [#/Vol] 10.6 10*3/uL Normal 3.5-11.0 [facility] Comment on above: Performed By: #### C BC #### [facility] [address] [facility] [place] [address] Vocational Aide: Con Oseguera MD NRBC Automated NOT REPORTED Normal [facility] Comment on above: Performed By: #### C BC #### [facility] [address] [facility] [place] [address] Vocational Aide: Con Oseguera MD Vital Signs Date Time Vital Sign Value Performing Clinician Megan chauhan 09-13-2023 09:22-0400 Blood Pressure Location SANDYJESSICA CESAR [facility] 09-13-2023 09:22-0400 Body temperature 98.42 [degF] SANDY ARSENIO [facility] 09-13-2023 09:22-0400 Diastolic blood pressure 52 mm[Hg] SANDY ARSENIO [facility] 09-13-2023 09:22-0400 Heart rate 72 /min SANDY ARSENIO [facility] 09-13-2023 09:22-0400 Respiratory rate 16 /min SANDY ARSENIO [facility] 09-13-2023 09:22-0400 Systolic blood pressure 111 mm[Hg] SANDY ARSENIO [facility] 09-06-2023 10:24-0400 Blood Pressure Location SANDY ARSENIO [facility] 09-06-2023 10:24-0400 Body temperature 98.6 [degF] SANDY ARSENIO [facility] 09-06-2023 10:24-0400 Diastolic blood pressure 78 mm[Hg] SANDY ARSENIO [facility] 09-06-2023 10:24-0400 Heart rate 84 /min SANDY ARSENIO [facility] 09-06-2023 10:24-0400 Systolic blood pressure 124 mm[Hg] SANDY ARSENIO [facility] 03-27-2019 17:01-0400 BMI (Body Mass Index) 27.46 kg/m2 Josh Faith [facility], [place] 03-27-2019 17:01-0400 Body Temperature 97.7 [degF] Josh Augusta [facility], [place] 03-27-2019 17:01-0400 Body weight 72.58 kg [facility] , [place] 03-27-2019 17:01-0400 BP Diastolic 58 mm[Hg] [facility] [place] 03-27-2019 17:01-0400 BP Systolic 142 mm[Hg] [facility] [place] 03-27-2019 17:01-0400 Height 162.6 cm [facility] [place] 03-27-2019 17:01-0400 Pulse (Heart Rate) 51 /min [facility], [place] 03-27-2019 17:01-0400 Pulse Oximetry 100 % [facility] [place] 03-27-2019 17:01-0400 Respiratory Rate 14 /min [facility], [place] 03-16-2019 01:33-0400 BMI (Body Mass Index) 23.68 kg/m2 [facility], [place] 03-16-2019 01:33-0400 Body Temperature 98.01 [degF] Javier [facility], [place] 03-16-2019 01:33-0400 Body weight 74.84 kg [facility] [place] 03-16-2019 01:33-0400 BP Diastolic 70 mm[Hg] [facility] [place] 03-16-2019 01:33-0400 BP Systolic 145 mm[Hg] [facility] [place] 03-16-2019 01:33-0400 Height 177.8 cm [facility] [place] 03-16-2019 01:33-0400 Pulse (Heart Rate) 100 /min [facility], [place] 03-16-2019 01:33-0400 Pulse Oximetry 97 % [facility] , [place] 03-16-2019 01:33-0400 Respiratory Rate 16 /min [facility] [place] 03-13-2019 15:00-0400 Pulse Oximetry 95 % [facility] [place] 03-13-2019 15:00-0400 Respiratory Rate 16 /[facility] [place] 03-13-2019 12:07-0400 Body Temperature 97.3 [degF] [facility] [place] 03-13-2019 12:07-0400 BP Diastolic 54 mm[Hg] [facility] [place] 03-13-2019 12:07-0400 BP Systolic 119 mm[Hg] [facility] [place] 03-13-2019 12:07-0400 Pulse (Heart Rate) 73 /min [facility] [place] 03-12-2019 06:00-0400 BMI (Body Mass Index) 22.24 kg/m2 [facility] [place] 03-12-2019 06:00-0400 Body weight 70.3 kg [facility] [place] 03-08-2019 07:02-0400 Height 177.8 cm Wolfgang [facility], [place] Encounters Encounter Date Encounter Type Care Provider Facility Start: 10-10-2023 ambulatory SANDY E ARSENIO Facili ty:[facility] Start: 09-15-2023 ambulatory SANDY E ARSENIO Facili ty:[facility] Start: 09-13-2023 End: 09-14-2023 ambulatory SANDY E ARSENIO Facility:[facility] Start: 09-13-2023 End: 09-13-2023 Patient encounter procedure SANDY Susy ARSENIO [facility] Start: 09-06-2023 End: 09-07-2023 ambulatory SANDY E ARSENIO Facility: [facility] Start: 09-06-2023 End: 09-06-2023 Patient encounter procedure SANDY E ARSENIO [facility] Start: 08-01-2023 Clinisync Result Encounter Waldemar Orta MD Work Phone: [facility] Unsolicited Start: 08-01-2023 Clinisync Result Encounter Waldemar Orta MD Work Phone: [facility] External [facility] Unsolicited Start: 06-23-2023 ambulatory SANDY ARSENIO Facility : [facility] Start: 03-27-2019 End: 03-27-2019 Emergency department patient visit [facility] Start: 03-27-2019 End: 03-27-2019 Emergency department patient visit Josh Hess Work Phone: [facility] ED Comment on above: Acute kidney injury (HCC) (Primary Dx) Start: 03-16-2019 End: 03-16-2019 Emergency department patient visit JAVIER DEVRIES [facility] Start: 03-16-2019 End: 03-16-2019 Emergency department patient visit Javier Devries Work Phone: [facility] ED Comment on above: Acute urinary retent ion (Primary Dx) Start: 03-07-2019 End: 03-13-2019 Evaluation and management of inpatient [facility] Start: 03-07-2019 End: 03-13-2019 Evaluation and management of inpatient Wolfgang Abhi Ruiz Work Phone: [facility] Med Surg Comment on above: VANESA (acute kidney in jury) (HCC) (Primary Dx); Pneumonia due to organism; Acute cystitis without hematuria Start: 12-10-2018 End: 12-13-2018 Evaluation and management of inpatient [facility] Start: 11-03-2018 End: 11-04-2018 Patient encounter procedure REBECA ORELLANA [facility] Start: 10-23-2018 End: 10-24-2018 Patient encounter procedure LEOBARDO JUAREZ [facility] Start: 10-12-2018 End: 10-13-2018 Patient encounter procedure ELIZABETH K [facility] Start: 09-28-2018 End: 09-29-2018 Patient encounter procedure ELIZABETH Alonso [facility] Start: 09-20-2018 End: 09-21-2018 Patient encounter procedure ELIZABETH Alonso [facility] Start: 09-07-2018 End: 09-08-2018 Patient encounter procedure ELIZABETH Aolnso [facility] Start: 08-31-2018 End: 09-01-2018 [facility] Start: 08-21-2018 End: 08-24-2018 Patient encounter procedure SHARIFA N PANGULUR [facility] Start: 08-16-2018 End: 08-17-2018 Patient encounter procedure [facility] Start: 07-11-2018 End: 07-12-2018 Patient encounter procedure SHARIFA N PANGULUR [facility] Procedures Date Procedure Procedure Detail Performing [...] microscopy SHARIFA PANGULUR Start: 03-16-2019 CATHETER REMOVAL SHRAIFA PANGULUR Start: 03-16-2019 INSERT PEDROZA CATHETER SHARIFA [...] 03-07-2019 Glucose blood reagent strip Wolfgang Moe [facility] Work Phone: Start: 03-07-2019 Culture bacterial quanttative colony count urine Wolfgang [facility] Work Phone: Start: 03-07-2019 Ct abdomen & [...] Start: 03-13-2020 Creatinine monitoring Creatinine mon itoring [place], [place] Start: 03-13-2020 Potassium monitoring Potassium monit [place]ing [place], [place] Start: 09-05-2019 A1C test (Diabetic o r Prediabetic) A1C test (Diabetic or Prediabetic) [place], [place] Start: 06-27-2019 DTaP/Tdap/Td vaccine (1 - Tdap) DTaP/Tdap/Td vaccine (1 - Tdap) [place], [place] Comment on above: Postponed from 03/25 (Insurance / Financial) Start: 04-20-2019 End: 04-20-2019 Office Visit 04/20/2019 Office Visit Urology Bryant Eller MD [address] [address] [phone] [facility] [place] Start: 02-25-2019 Influenza vaccination Flu vaccine (# 1) [place], [place] Start: 11-22-2018 Annual Wellness Visi t (AWV) [facility] Start: 11-30-2017 [object Object] [facility] Start: 05-28-2017 Lipid screen [facility] Start: 05-26-2016 Diabetic retinal exam [facility] retin [facility] Start: 03-22-2016 Shingles Vaccine (2 of 3) Shingles Vaccine (2 of 3) [place], [place] Basic Metabolic Pane l w/ Reflex to MG Basic Metabolic Panel w/ Reflex to MG Lab Routine Daily until discontinued starting 03/08/2019, 6 completed [place] Comment on above: Daily until disconti nued starting 03/08/2019, 6 completed HHN Treatment HHN Treatment Respiratory Care Routine Every 4hr while awake until discontinued starting 03/08/2019 [place] Comment on above: Every 4hr while awak e until discontinued starting 03/08/2019 Initiate Oxygen Ther apy Protocol Initiate Oxygen Therapy Protocol Respiratory Care Routine Daily until discontinued starting 03/07/2019 [place] Comment on above: Daily until disconti nued starting 03/07/2019 POCT glucose [place], [place] Comment on above: 4X Daily (AC & HS) u ntil discontinued starting 03/08/2019 As Needed until disc ontinued starting 03/07/2019 Immunizations Immunization Date Immunization Notes Care Provider Richar crawley 03-10-2020 influenza virus vaccine, unspecified formulation SANDY CESAR [facility] Comment on above: Result Comment: 2023: VIS DATE: 02/08/2019 04-27-2019 influenza, unspecifi ed formulation SANDY CESAR [facility] Comment on above: Result Comment: 2023: EXTERNAL ADMIN: PT RPT 03-10-2018 influenza virus vaccine, unspecified formulation SANDY CESAR [facility] Comment on above: Result Comment: 2023: VIS DATE: 01/31/2015 03-10-2018 influenza, injectabl e, quadrivalent, preservative free [facility] [place] 02-22-2017 influenza virus vaccine, unspecified formulation SANDY CESAR [facility] Comment on above: Result Comment: 2023: VIS DATE: 01/31/2015 02-22-2017 influenza, injectabl e, quadrivalent, contains preservative [facility] 10-01-2016 pneumococcal conjuga te vaccine, 13 valent [facility] 04-01-2016 influenza, injectabl e, quadrivalent, contains preservative [facility] 01-26-2016 zoster vaccine, live [facility], [place] 01-02-2016 zoster vaccine, live [facility] 05-26-2015 influenza virus vaccine, unspecified formulation [facility] 05-27-2014 pneumococcal polysaccharide vaccine, 23 valent [facility] 05-10-2013 influenza virus vaccine, unspecified formulation [facility] 05-11-2012 influenza virus vaccine, unspecified formulation [facility] [place] 06-10-2011 influenza virus vaccine, unspecified formulation [facility] 05-19-2010 influenza virus vaccine, unspecified formulation [facility] 04-17-2004 influenza virus vaccine, unspecified formulation SANDY CESAR [facility] 06-24-2003 pneumococcal polysaccharide vaccine, 23 valent SANDY CESAR [facility] 04-24-2003 pneumococcal polysaccharide vaccine, 23 valent SANDY CESAR [facility] 12-21-2000 hepatitis B vaccine, adult dosage SANDY CESAR [facility] 07-06-2000 hepatitis B vaccine, adult dosage SANDY CESAR [facility] 06-03-2000 hepatitis B vaccine, adult dosage SANDY CESAR [facility] Payers Date Payer Category Payer Unknown BC BCBS [id number] [id number] 2022-Present [phone] [address] [place] [address] [id number] 2015 Medicare BCBS MEDICARE AN THEM MEDIBLUE ESSENTIAL/PLUS xxxxxxxxxxxx 2015-Present [address] [address] [place] [address] xxxxxxxxxxxx [id number] 2015 Medicare [id number] 1935 Unknown [id number] 2.16.840.1.096815.3.579.2. 1935 Unknown [id number] 2.16.840.1.305864.3.579.2. 1937 Unknown [id number] 2.16.840.1.052434.3.579.2. 1937 Unknown [id number] 2.16.840.1.560966.3.579.2.176 1937 Unknown [id number] 2.16.840.1.240071.3.579.2.176 1937 Unknown [id number] 2.16.840.1.563859.3.579.2.176 1937 Unknown [id number] 2.16.840.1.407050.3.579.2.176 1937 Unknown [id number] 2.16.840.1.332301.3.579.2.176 1937 Unknown [id number] 2.16.840.1.768329.3.579.2.176 1937 Unknown [id number] 2.16.840.1.334695.3.579.2.176 1937 Unknown [id number] 2.16.840.1.433010.3.579.2.176 1937 Unknown [id number] 2.16.840.1.347305.3.579.2.176 1937 Unknown [id number] 2.16.840.1.061552.3.579.2.176 1937 Unknown [id number] 2.16.840.1.826431.3.579.2.176 1937 Unknown [id number] 2.16.840.1.177046.3.579.2.176 1937 Unknown [id number] 2.16.840.1.116459.3.579.2.176 1937 Unknown [id number] 2.16.840.1.744226.3.579.2.176 1937 Unknown [id number] 2.16.840.1.155335.3.579.2.727 1937 Unknown [id number] 2.16.840.1.786434.3.579.2.727 1937 Unknown [id number] 2.16.840.1.112122.3.579.2.727 Social History Date Type Detail Facility Start: 03-07-2019 End: 09-13-2023 Tobacco smoking status NHIS Former smoker [facility] End: 06-27-1967 History of tobacco use Current smoker [place], [place] Start: 03-07-2019 End: 03-16-2019 Cigarettes smoked current (pack per day) - Reported [place], [place] Start: 03-07-2019 End: 03-16-2019 Alcohol intake No [facility] Start: 01-06-2015 Tobacco Comment quit over 50 years a go [place], [place] Start: 1935 Sex Assigned At Not on file [place] [facility] Functional Status Date Assessment Result Facility 09-13-2023 Functional Status N/A [facility] 09-06-2023 Functional Status N/A [facility] Discharge instructions 09-13-2023 Note Date & Type [...] Follow these instructions at home: Medicines Take csgd-fxr-krcxkju and prescription medicines only as told by [...] or the blood stops without treatment. Take rdfy-bwn-whshcrd and prescription medicines only as told by your health care provider. Drink enough fluid to keep your urine pale yellow. This information is not intended to replace advice given to you by your health care provider. Make sure you discuss any questions you have with your health care provider. Document Revised: 02/11/2021 Document Reviewed: 02/11/2021 [employer]ident [employer] Patient Education 2022 [employer]. Follow Up Care 09/07/2023 09:39:22 With:4 weeks [place] location for so wick [facility] Address:Unknown When: Unknown [facility] Discharge instructions 09-06-2023 Note [...] Follow these instructions at home: Medicines Take nsih-xnl-wavznkd and prescription medicines only as told by [...] is important. Where to find more information [employer]: www.aakp.org National Kidney Foundation: www.kidney.org [employer]: www.akfinc.org Life Options: www.lifeoptions.org Kidney [...] provider. Document Revised: 09/17/2020 Document Reviewed: 09/17/2020 [employer]ident [employer] Patient Education 2022 [employer]. Follow Up Care 09/06/2023 08:19:47 With:SANDY CESAR PA-C, URL Address: [address] [facility] [place] [address] When: Unknown Comments:schedule cath change once we have consent [facility] Evaluation + Plan note Note Date & Type Note Facility Evaluation + Plan note No data available for this section [facility] Evaluation + Plan note Note Date & Type Note Facility Evaluation + Plan note Future Appointments Appointment Date:10/10/2023 01:40:00 PM Scheduled Provider:SANDY CESAR PA-C Location:[facility] [place] Appointment Type:URO Office Visit [facility] Progress note Note Date & Type Note Facility Progress note No data available for this section [facility] Discharge Instructions * Discharge Instr - JEWELL* Renee Fernandez RN - 03/09/2019 12:34 PM EDT Continuity of Care Form Patient Name: Juan Ramon Neville : 1935 Admit date: 03/07/2019 Discharge date: 03/13/2019 Code Status Order: DNR-CC Advance Directives: Advance Care Flowsheet Documentation Date/Time Healthcare Directive Type of Healthcare Directive Copy in Chart Healthcare Agent Appointed Healthcare Agent's Name Healthcare Agent's Phone Number 03/07/19 [phone] Yes, patient has an advance directive for healthcare treatment Admitting Physician: Talia Pastor MD PCP: Talia Pastor MD Discharging Nurse: Anca HOFFMANN Discharging Hospital Unit/Room#: 2043/2043-01 Discharging Unit Emergency Contact: Extended Emergency Contact Information Primary Emergency Contact: Alvin Neville Relation: Child Secondary Emergency Contact: Aleksandra Neville [facility] Mobile Relation: None Past Surgical [...] and older Afluria) 03/10/2018 Pneumococcal Conjugate 13-valent (Qbumejv46) 10/01/2016 Pneumococcal Polysaccharide (Oapopbize61) 05/27/2014 Zoster Live (Zostavax) 01/02/2016, 01/26/2016 Active Problems: Patient Active Problem List Diagnosis Code Benign essential hypertension I10 Renal cyst N28.1 SVT (supraventricular tachycardia) ([facility]) I47.1 Uncontrolled type 2 diabetes mellitus without complication, with long-term current use of insulin ([facility]) E11.65, Z79.4 Atrial fibrillation ([facility]) I48.91 Hx of simple renal cyst Z87.448 Body mass index (BMI) of 23.0-23.9 in adult Z68.23 Hypomagnesemia E83.42 Diverticulosis K57.90 Acute blood loss anemia D62 CHF with cardiomyopathy ([facility]) I50.9, I42.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 Chronic diastolic heart failure, NYHA class 2 ([facility]) I50.32 CKD (chronic kidney disease) stage 3, GFR 30-59 ml/min ([facility]) N18.3 Hypercholesteremia E78.00 Mild pulmonary hypertension [...] Wt 150 lb 9.2 oz (68.3 kg) VqB036% BMI 21.61 kg/m Last documented pain score (0-10 scale): Pain Level: 3 Last Weight: Wt Readings from Last 1 Encounters: 03/09/19 150 lb 9.2 oz (68.3 kg) Mental Status: oriented and alert IV Access: - None Nursing Mobility/ADLs: Walking Assisted Transfer Assisted Bathing Assisted Dressing Assisted Toileting Assisted Feeding Assisted Reliner Assisted Med Delivery whole Wound Care Documentation [...] only, NOT a DME order): Other Treatments: alf assessment, medication education and monitoring, resume previous orders Patient's personal belongings (please select all that are sent with patient): None RN SIGNATURE: MANAGEMENT/SOCIAL WORK SECTION Inpatient Status Date: 03/07/2019 Readmission Risk Assessment Score: Readmission Risk Risk of Unplanned Readmission: 19 Discharging to Facility/ Agency Name: [facility] (formerly called [facility]) Address: [address] [facility] [address] sample coordinator crystal [phone] Fax: Electrical Prospecting Supervisor/Wood Science Professor signature: ICIAN SECTION Prognosis: Guarded Condition at Discharge: Stable Rehab Potential (if transferring to Rehab): Guarded Recommended Labs or Other Treatments After Discharge: Physician Certification: I certify the above information and transfer of Juan Ramon Neville is necessary for the continuing treatment of the diagnosis listed and that he requires Long Term Facility for less 30 days. Update Admission [...] medications. --- Having trouble affording medications? Try [employer]! (This is not a hospital endorsed website, merely a recommendation based on my own personal experiences with [employer]) --- Questions? Contact me anytime. Javier Devries MD, JAYSON --- --- * Attachments The following attachments cannot be sent through Care Everywhere. * Urinary Retention (Amharic) documented in this encounter History of Present [...] OTA - 03/12/2019 10:40 AM EDT [facility] OCCUPATIONAL THERAPY MISSED TREATMENT NOTE INPATIENT [...] in the note per my discussion with ROUSTABOUT HAND * Talia Pastor MD - 03/11/2019 1:42 [...] tablet 5 mg 5 mg Oral Daily aTlia Pastor MD 5 mg at 03/11/1941 tamsulosin [...] solution 2.5 mg 2.5 mg Nebulization Q4H WI Talia Pastor MD 2.5 mg at 03/11/19 [...] in the note per my discussion with ROUSTABOUT HAND * Andrew Duncan MD - 03/11/2019 11:25 AM EDT [facility] Physicians Cardiology ([facility]) Progress Note 03/11/2019 11:25 [...] Subcutaneous Nightly albuterol 2.5 mg Nebulization Q4H WI sodium chloride flush 10 mL Intravenous 2 [...] 03/10/2019 11:46 AM EDT Physical Therapy Facility/Department: [facility] MED SURG Daily Treatment Note NAME: Juan [...] and corrected by editing. ANDREW DUNCAN MD [facility] * Talia Pastor MD - 03/10/2019 [...] solution 2.5 mg 2.5 mg Nebulization Q4H WI Talia Pastor MD 2.5 mg at 03/10/19 [...] Problem: Pneumonia Active Problems: SVT (supraventricular tachycardia) ([facility]) Benign essential hypertension Uncontrolled type 2 [...] of care discussed with Dr Bart HUERTA, LETTER OF CREDIT DOCUMENT EXAMINER - WEAVING LOOM OPERATOR REASON FOR VISIT: Pl effusion, dyspnea I examined the patient myself The assessment and Plan in the note per my discussion with ROUSTABOUT HAND * Andrew Duncan MD - 03/09/2019 5:32 PM EDT [facility] Progress Note 03/09/2019 5:32 [...] and corrected by editing. ANDREW DUNCAN MD [facility] * Dayan Ledbetter, PT - 03/09/2019 3:33 PM EDT Physical Therapy REVISED GOALS [facility] Date: 03/09/19 Patient Name: Juan Ramon Neville Room: Account: [id number] : 1935 (83 y.o.) Gender: male 03/09/19 [...] w/ CGA x 1 * Megan Jackson, QUALITY FACILITATOR - 03/09/2019 12:31 PM EDT Physical Therapy [facility] Physical Therapy Progress Note Date: 03/09/19 Patient Name: Juan Ramon Neville Room: Account: [id number] : 1935 (83 y.o.) Gender: male Discharge [...] states pt had been using O2 at [facility], walking with RW (had Rollator at home for 1 wk before pt developed PNA, admitted to [facility]); CHF is at point where fluid [...] exercises 1: Seated B LE ther ex, AROM/[place] resistance band, 15x each Other exercises 2: [...] Lagunas, OT - 03/09/2019 10:56 AM EDT [facility] Occupational Therapy Evaluation Date: 03/09/19 Patient Name: Juan Ramon Neville Room: Account: [id number] : 1935 (83 y.o.) Gender: male Discharge [...] Assistance: Independent(uses RW) Transfer Assistance: Independent Active Behavior Therapist: Yes Mode of Transportation: Car Occupation: Retired Additional Comments: Pt and Pt's daughter report that he has been at [facility] since Mid-December. Pt has been receiving [...] Patient Tolerated treatment well Functional Outcome Measures [facility] Daily Activity Inpatient How much [...] much help for eating meals?: A Little [facility] Inpatient Daily Activity Raw Score: 18 [facility] Inpatient ADL T-Scale Score : 38.66 ADL Inpatient CMS 0-100% Score: 46.65 ADL Inpatient [facility] G-Code Modifier : CK Goals Patient [...] Subcutaneous Nightly albuterol 2.5 mg Nebulization Q4H WI sodium chloride flush 10 mL Intravenous 2 [...] ABGs: No results for input(s): PHART, PO2ART, QMT8AKZ, BEW1DLK, BEART, T5JXEIBR, FZS6DIW in the last 72 hours. PT/INR: No [...] tablet 160 mg 160 mg Oral Daily Tlaia Pastor MD 160 mg at 03/08/19 0825 [...] solution 2.5 mg 2.5 mg Nebulization Q4H WI Talia Pastor MD 2.5 mg at 03/09/19 [...] PM EDT SW spoke to Crystal from [facility]. She will start the pre-cert for pt's return to facility. * Dayan Ledbetter, PT - 03/08/2019 9:39 AM EDT Physical Therapy Facility/Department: [facility] SUR[facility] Initial Assessment NAME: Juan Ramon [...] walker- up independently) Transfer Assistance: Independent Active Behavior Therapist: Yes Mode of Transportation: Car Occupation: Retired [...] bed, Nurse notified(nurse Cavazos) G-Code OutComes Score [facility] Score [facility] Inpatient Mobility Raw Score : 8 (03/08/19849) [facility] Inpatient T-Scale Score : 28.52 (03/08/19849) Mobility Inpatient [facility] 0-100% Score: 86.62 (03/08/19849) Mobility Inpatient [facility] G-Code Modifier : CM (03/08/19849) Goals Short [...] noted at this time * Michelle Mei [facility] - 03/07/2019 8:49 PM EDT [...] facility list. Thank you, Michelle Mei PharmD, [facility] [phone] documented in this encounter* Michelle Mei RPH - 03/27/2019 6:32 PM EDT Medication History completed: New medications: none Medications discontinued: none Changes to dosing: Fenofibrate changed to nightly Furosemide changed to twice daily Potassium chloride changed to ER tablet formulation Stated allergies: As listed Other pertinent information: Medications confirmed with facility list. Thank you, Michelle Mei PharmD, [facility] [phone] documented in this encounter Assessments Diagnosis Pneumonia- Primary Pneumonia, organism unspecified VANESA (acute kidney injury) ([facility]) Acute kidney failure, unspecified Pneumonia due to organism Pneumonia due to other specified organism Acute cystitis without hematuria Acute cystitis Atrial fibrillation ([facility]) Atrial fibrillation Benign essential hypertension Essential hypertension, benign Chronic diastolic heart failure, NYHA class 2 ([facility]) Chronic diastolic heart failure CKD (chronic kidney disease) stage 3, GFR 30-59 ml/min ([facility]) Chronic kidney disease, Stage III (moderate) CHF with cardiomyopathy ([facility]) Congestive heart failure, unspecified 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 Mild pulmonary hypertension ([facility]) Other chronic pulmonary heart diseases SVT (supraventricular tachycardia) ([facility]) Other specified cardiac dysrhythmias Uncontrolled type 2 diabetes mellitus without complication, with long-term current use of insulin ([facility]) Urinary retention due to benign prostatic hyperplasia Diagnosis Acute kidney injury (HCC)- Primary Acute kidney failure, unspecified Diagnosis Acute urinary retention- Primary Other specified retention of urine Advance Directives No Advanced Directives Records FoundDocuments on File Type Date Recorded Patient Career And Guidance Counselor Expl anation Advance Directives and Livin g Will 03/07/2018 9:31 AM [facility] Advance Directives and Livin g Will 01/09/2015 10:42 AM Power of Supervisor Forming Department Power of Supervisor Forming Department 01/09/2015 10:42 AM Latest Code Status on [...] To Contact Diagnoses Pneumonia Talia Pastor MD [address] [address] [facility] Reason Comments Abnormal Lab Creatinine: 2.83 Reason Comments Urinary Retention (unrecognized sect ion and content) No Status Records FoundNo Status Records Found INFORMATION SOURCE (unrecogn ized section and content) DATE CREATED AUTHOR 03/28/2019 [facility] DATE CREATED AUTHOR AUTHOR'S ORGANIZ ATION 09/15/2023 [facility] Patient Care team informatio n (unrecognized section and content) Personnel Name: WALDEMAR ORTA MD Address: Address: [address] [place] [address] Personnel Name: WALDEMAR ORTA MD Address: Address: [address] [place] [address] FOR RECORDS PERTAINING TO PATIENTS WHO ARE [...] BE BASED ON THE PRIMARY CLINICAL RECORDS. [facility] [employer] [facility]. provides no warranty or guarantee of the accuracy or completeness of information in this document.
[2023-10-05 09:49] LABS: Alanine Aminotransferase 38 U/L (16-63); Albumin Globulin Ratio 0.7; Alkaline Phosphatase 53 U/L (46-116); Anion Gap 18.1; Aspartate Amino Transferase 48 U/L (15-37); BUN Creatinine Ratio 26.6; Bilirubin Total 0.7 mg/dL (0.2-1.0); Calcium 10.1 mg/dL (8.5-10.1); Carbon Dioxide 23.4 mmol/L (21.0-32.0); Chloride 106 mmol/L (98-107); Estimated GFR (African America 18 (>=60); Estimated GFR (Non-African Ame 15 (>=60); Globulin 4.2 g/dL; Glucose 92 mg/dL (74-106); Potassium 5.5 mmol/L (3.5-5.1); Sodium 142 mmol/L (136-145); Total Protein 7.2 g/dL (6.4-8.2)
== END 2023-10-05 06:14 | disposition home or self-care (01) ==
LOC: LAB 06:13
PROVIDERS: Visit Provider Nurse Practitioner Family
DX: K74.60 Unspecified cirrhosis of liver (principal)
CPT/HCPCS: 36415; 80053

== ENCOUNTER 2023-10-07 02:57 | Outpatient (REF) | payer MEDICARE, SELFPAY ==
--- OUTSIDE RECORDS SUMMARY | 2023-10-07 03:04 | XMS_ITS | CCD ---
Author Organization [facility] Care Team Providers Care Intake Clerk Name Role Phone Dawit Talia Stipe Primary Care Provider [phone] SHARIFA MENON Referring Unavailable PASTOR, TALIA STIPE [...] Care Provider UnavailWALDEMAR Chanel Primary Care Physician SANDY CESAR Attending Unavailable SANDY CESAR Attending Unavailable SANDY CESAR Attending Unavailable SANDY CESAR Attending Unavailable Allergies Allergy Classification Reported Allergen(s) Allergy Type Date of Onset Reaction(s) Facility (3 sources) diphenhydrAMINE Drug Allergy [address] [place] [address] (2 sources) diphenhydrAMINE; Translations: [diphenhydramine] Drug Allergy [facility] (1 source) No Known Medication Allergies; Translations: [No Known Medication Allergies] Propensity to adverse reactions (disorder) [facility] Repository Medications Current Medications Medication Drug Class(es) Dates Sig (Normalized) Sig (Original) acetaminophen 325 mg oral tablet (4 sources) Start: 03-07-2019 650 mg, Oral, EVERY 4 HOURS PRN, Pain Mild (1-3), Fever, For temp greater than 100.5 F (38 C), Starting 03/07/19 at 2122 Maximum dose of acetaminophen is 4000 mg from all sources in 24 hours. take 2 tablets by [facility] every four hours as needed for fever [...] mg oral capsule (1 source) Antiarrhythmic, Uncompetitive E-hbvylm-H-aspartate Receptor Antagonist, Cytochrome P450 2D6 Inhibitor, Sigma-1 [...] (3 sources) Start: 03-07-2019 15 g, Oral, [place] N, Low blood sugar, Starting Tue03/07/19 at [...] (5 sources) Start: 09-13-2023 Potassium Chlo ride (Pty-Nbdk-Fzj M20) 20 mEq oral tablet, extended release [...] Range Facility Lab Reportson 09-14-2023 Lab Reports [id number] #1.00TIFF Normal [facility] Ambulatory Visit Summaryon 0 09-13-2023 Ambulatory [...] 30 mg Tab) potassium chloride (Potassium Chloride (Fhp-Dgoz-Jxi M20) 20 mEq oral tablet, extended release) [...] 0 Refill(s) Unchanged potassium chloride (Potassium Chloride (Kiy-Ucof-Vqg M20) 20 mEq oral tablet, extended release) [...] for choosing us for your care. Normal [facility] Lab Reportson 09-13-2023 Lab Reports [id number] #1.00TIFF Normal [facility] Alf Recordson 09-12 Alf Records [id number] #1.00TIFF [facility] Patient Educationon 09-13-19 Patient Education Urology Hematuria, [...] these instructions at home: Medicines ? Take tqdd-ynj-clmvtqe and prescription medicines only as told by [...] the blood stops without treatment. ? Take ukza-cxw-mslqwsp and prescription medicines only as told by your health care provider. ? Drink enough fluid to keep your urine pale yellow. This information is not intended to replace advice given to you by your health care provider. Make sure you discuss any questions you have with your health care provider. Document Revised: 02/11/2021 Document Reviewed: 02/11/2021 [employer] Patient Education ? 2022 [place]. [facility] Transfer Inon 09-13-2023 Transfer In [id number] #1.00TIFF [facility] Urology Office/Clinic Noteon 09-13-2023 Urology Office/Clinic Note Chief Complaint Pt here today for cath change HPI Staff Dementia pt is here today for a catheter change. Resident @ [facility]. *Finasteride 5mg and Flomax 2 caps/day [...] E&M of Est. Patient Low 20-29 Min 24518 Influenza immunization status assessed 1030F Insertion of temp indwelling bladder cath, fractured cath, altered anatomy, complicated 59444 Medication list documented in medical record [id number] [...] E&M of Est. Patient Low 20-29 Min 49422 Insertion of temp indwelling bladder cath, fractured cath, altered anatomy, complicated 95299 3. Gross hematuria (R31.0: Gross hematuria) with removal of previous pedroza. likely due to encrustation as this pedroza has been in place >3 mos. advised ECF may see hematuria in pedroza for next few days. increase fluids. ok as long as it's draining. Ordered: E&M of Est. Patient Low 20-29 Min 36142 Insertion of temp indwelling bladder cath, fractured cath, altered anatomy, complicated 72440 4. 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 Patient Low 20-29 Min 05664 5. Paraphimosis (N47.2: Paraphimosis) review of external records: did have 1 episode of paraphimosis previously foreskin pulled back for procedure and replaced appropriately after pedroza inserted. Ordered: E&M of Est. Patient Low 20-29 Min 82046 Follow-up With When Contact Information 4 weeks [place] location for pedroza change w LIDA Additional [...] 40 mg (more content not included)... Normal [facility] Comment on above: Result Comment: Elec tronically Signed By: SANDY CESAR PA-C\.br\Date and Time Signed: 09/13/23 10:17 EDT Transfer Inon 09-08-2023 Transfer In [id number] #1.00TIFF Normal [facility] Transfer In [id number] #1.00TIFF Rojelio Ballesteros [facility] Ambulatory Visit Summaryon 0 09-06-2023 Ambulatory [...] SANDY CESAR PA-C, URL When: Where: [address] [facility] [place] [address] Medications What When Instructions Unchanged alprazolam (alprazolam [...] you for choosing us for your care. [facility] Auth for Release of Medical Recordson 09-06-2023 Auth for Release of Medical Records [id number] #1.00TIFF [facility] Insurance Correspondence Off iceon 09-06-2023 Insurance Correspondence Office [id number] #1.00TIFF [facility] Alf Recordson 09-05 Alf Records [id number] #1.00TIFF [facility] Patient Correspondenceon Patient Correspondence [id number] #1.00TIFF [facility] Patient Educationon 09-06-19 Patient Education Nephrology Chronic [...] these instructions at home: Medicines ? Take abcd-uwm-vjxpwqd and prescription medicines only as told by [...] ask your (more content not included)... 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 did [facility] for [facility]to confirm the plan but went straight to voicemail. did leave message w [place] phone # requesting he call. once we can confirm consent we will need to r/s pt for ov for pedroza change. may be difficult due to encrustation since current pedroza seems to have been in at least a few months. per PCP note - daughter was flushing cath once weekly w 10ml syringes provided by urology office. [facility] staff state they have been flushing it in house. Ordered: E&M of New Patient High 60-74 Min 48854 2. BPH with urinary obstruction (N40.1: Benign prostatic hyperplasia with lower urinary tract symptoms) on finasteride 5mg and flomax 2 caps/day per AUG Ordered: E&M of New Patient High 60-74 Min 30570 3. Frequent UTI (N39.0: Urinary tract infection, site not specified) on Augmentin x7d Apr 2023 (no cx for review) cx 08/24/23 - serratia 100k, e coli 100kon Cipro x7d 08/26-09/02 per ECF staff gets UTIs all the time Ordered: E&M of New Patient High 60-74 Min 60892 4. History of Clostridium difficile infection (Z86.19: Personal history of other infectious and parasitic diseases) October 2022 per former PCP notes. PCP gave 5d oral vanco for c.diff prophylaxis w acute UTI tx in Apr 2023. Ordered: E&M of New Patient High 60-74 Min 02481 5. Dementia (F03.90: Unspecified dementia, unspecified severity, without behavioral disturbance, psychotic disturbance, mood disturbance, and anxiety) per PMH. pt is poor historian, minimal responses. Ordered: E&M of New Patient High 60-74 Min 40312 6. CKD (chronic kidney disease) stage 3, GFR 30-59 ml/min (N18.30: Chronic kidney disease, stage 3 unspecified) CKD stage 3 listed in PMH. CrCl 27 per PCP note 05/17/23. labs 08/05/23 - BUN 40, Lower In Supervisor 1.91, GFR 34 - CrCl 25 (without adjustment for height - unavailable) wt 146# per ECF vitals Ordered: E&M of New Patient High 60-74 Min 75970 Other obstructive and reflux uropathy (N13.8: Other obstructive and reflux uropathy) Total time spent reviewing previous notes/results/supervisor liquefaction al documents, preparing the chart, conducting the encounter with the patient and family, ordering tests/medications, and documenting the encounter was 60 minutes. Follow-up With When Contact Information ARSENIO GUIDO, SANDY Jain, URL [address] [place] [address] Additional Instructions: schedule cath change once we [...] Family History Family history is unknown Normal [facility] Comment on above: Result Comment: Elec tronically Signed By: ARSENIO GUIDO, SANDY Jain\.br\Date and Time Signed: 09/06/23 12:18 EDT ALL AMMONIAon 08-01-2023 Ammonia (P) [Moles/Vol] 35 umol/L High 11 - 32 umol/L [facility] Interpretation and review of laboratory results Abnormal [facility] Healthcar e Basic Metabolic Panelon 10-0 Anion gap [Moles/Vol] 13 mmol/L 9 - 17 mmol/L [place] Bun/Cre Ratio NOT REPORTED [place], [place] Calcium [Mass/Vol] 9.3 mg/dL 8.6 - 10. 4 mg/dL [place] Chloride [Moles/Vol] 99 mmol/L 98 - 10 7 mmol/L [place] CO2 [Moles/Vol] 24 mmol/L 20 - 31 mmol/L [place] Creatinine [Mass/Vol] 2.75 mg/dL High 0.7 - 1.2 mg/dL [place] GFR 27 mL/min Low >60 [place] GFR Non- 22 mL/min Low >60 [place] GFR/1.73 sq M predicted among non-blacks MDRD (S/P/Bld) [Vol rate/Area] NOT REPORTED [place] GFR/1.73 sq M predicted among non-blacks MDRD (S/P/Bld) [Vol rate/Area] [place] Comment on above: Average GFR for 70 o r more years old: 75 mL/min/1.73sq m Chronic Kidney Disease: <60 mL/min/1.73sq m Kidney failure: <15 mL/min/1.73sq m eGFR calculated using average adult body mass. Additional eGFR calculator available at: http://www.[employer]/multiple_crcl_2012.htm Glucose [Mass/Vol] 92 mg/dL 70 - 99 mg/dL [place] Interpretation and review of laboratory results Abnormal [place] Potassium [Moles/Vol] 5.2 mmol/L 3.7 - 5.3 mmol/L [place] Sodium [Moles/Vol] 136 mmol/L 135 - 144 mmol/L [place] Urea nitrogen [Mass/Vol] 61 mg/dL High 8 - 23 mg/dL [place] Basic Metabolic Profon 03-27 (cont.) Normal [facility] Comment on above: Result Comment: Aver age GFR for 70 or more years old: 75 mL/min/1.73sq m Chronic Kidney Disease: <60 mL/min/1.73sq m Kidney failure: <15 mL/min/1.73sq m eGFR calculated using average adult body mass. Additional eGFR calculator available at: http://www.Can[employer]/multiple_crcl_2012.htm Performed By: #### H H, BMP #### [facility] [address] [place] [address] [employer] Supervisor: Con Oseguera MD Anion gap [Moles/Vol] 13 mmol/L Normal 9-17 [facility] Comment on above: Performed By: #### H H, BMP #### [facility] [address] [place] [address] [employer] Supervisor: Con Oseguera MD Calcium [Mass/Vol] 9.3 mg/dL Normal 8.6-10.4 [facility] Comment on above: Performed By: #### H H, BMP #### [facility] [address] [place] [address] [employer] Supervisor: Con Oseguera MD Chloride [Moles/Vol] 99 mmol/L Normal 98-107 [facility] Comment on above: Performed By: #### H H, BMP #### [facility] [address] [place] [address] [employer] Supervisor: Con Oseguera MD CO2 [Moles/Vol] 24 mmol/L Normal 20-31 [facility] Comment on above: Performed By: #### H H, BMP #### [facility] [place] [address] [employer] Supervisor: Con Oseguera MD Creatinine [Mass/Vol] 2.75 mg/dL High 0.70-1.20 [facility] Comment on above: Performed By: #### H H, BMP #### [facility] [address] [place] [address] [employer] Supervisor: Con Oseguera MD GFR, Amer 27 mL/min Low >60 [facility] Comment on above: Performed By: #### H H, BMP #### [facility] [place] [address] [employer] Supervisor: Con Oseguera MD GFR,non Amer 22 mL/min Low >60 [facility] Comment on above: Performed By: #### H H, BMP #### [facility] [address] [place] [address] [employer] Supervisor: Con Oseguera MD Glucose [Mass/Vol] 92 mg/dL Normal 70-99 [facility] Comment on above: Performed By: #### H H, BMP #### [facility] [place] [address] [employer] Supervisor: Con Oseguera MD Potassium [Moles/Vol] 5.2 mmol/L Normal 3.7-5.3 [facility] Comment on above: Performed By: #### H H, BMP #### [facility] [address] [place] [address] [employer] Supervisor: Con Oseguera MD Sodium [Moles/Vol] 136 mmol/L Normal 135-144 [facility] Comment on above: Performed By: #### H H, BMP #### [facility] [address] [place] [address] [employer] Supervisor: Con Oseguera MD Urea nitrogen [Mass/Vol] 61 mg/dL High 8-23 [facility] Comment on above: Performed By: #### H H, BMP #### [facility] [address] [place] [address] [employer] Supervisor: Con Oseguera MD BUN/CRE Ratio NOT REPORTED Normal 9-20 [facility] Comment on above: Performed By: #### H H, BMP #### [facility] [address] [facility] [place] [address] [employer] Supervisor: Con Oseguera MD Staging: NOT REPORTED Normal [facility] Comment on above: Performed By: #### H H, BMP #### [facility] [address] [place] [address] [employer] Supervisor: Con Oseguera MD CBC Auto Differentialon 10-0 Basophils (Bld) [#/Vol] 0.08 10*3/uL [facility] Basophils/100 WBC (Bld) 1 % 0 - 2 % [facility] Differential Type NOT REPORTED [place] Eosinophils (Bld) [#/Vol] 0.39 10*3/uL [facility] Eosinophils/100 WBC (Bld) 5 % High 0 - 4 % [place] Erythrocyte distribution width (RBC) [Ratio] 28.8 % High 11.5 - 14.9 % [place] Hematocrit (Bld) [Volume fraction] 33.5 % Low 41 - 53 % [place] Hemoglobin (Bld) [Mass/Vol] 10.5 g/dL Low 13.5 - 17.5 g/dL [place] Interpretation and review of laboratory results Abnormal [place] Lymphocytes (Bld) [#/Vol] 2.00 10*3/uL [place] Lymphocytes/100 WBC (Bld) 26 % 24 - 44 % [place] MCH (RBC) [Entitic mass] 23.6 pg Low 26 - 34 pg [place] MCHC (RBC) [Mass/Vol] 31.3 g/dL 31 - 37 g/dL [place] MCV (RBC) [Entitic vol] 75.4 fL Low 80 - 100 fL [place] Monocytes (Bld) [#/Vol] 0.69 10*3/uL [place] Monocytes/100 WBC (Bld) 9 % High 1 - 7 % [place] Morphology Theo (Bld) [Interp] 1+ ELLIPTOCYTES [place] Morphology Theo (Bld) [Interp] 1+ ECHINOCYTES [place] Morphology Theo (Bld) [Interp] ANISOCYTOSIS PRESENT [place], [place] Platelet mean volume (Bld) [Entitic vol] 8.9 fL 6 - 12 fL [place], [place] Platelets (Bld) [#/Vol] NOT REPORTED [place] Platelets (Bld) [#/Vol] 305 10*3/uL [place] RBC (Bld) [#/Vol] 4.44 10*6/uL Low 4.5 - 5.9 m/uL [place] RBC morphology finding Nom (Bld) NOT REPORTED [place] Segmented neutrophils/100 WBC (Bld) 59 % 36 - 66 % [place] Segs Absolute 4.54 [place] WBC (Bld) [#/Vol] NOT REPORTED per 100 WBC [place] WBC (Bld) [#/Vol] 7.7 10*3/uL [place] WBC Morphology NOT REPORTED [place], [place] CBC with Diffon 03-27-2019 Abs. Basophil 0.08 k/uL Normal 0.0-0.2 [facility] Comment on above: Performed By: #### H H, BMP #### [facility] [address] [place] [address] [employer] Supervisor: Con Oseguera MD Abs.Neutrophil (Seg) 4.54 k/uL Normal 1.3-9.1 [facility] Comment on above: Performed By: #### H H, BMP #### [facility] [address] [facility] [place] [address] [employer] Supervisor: Con Oseguera MD Basophils/100 WBC (Bld) 1 % Normal 0-2 [facility] Comment on above: Performed By: #### H H, BMP #### [facility] [facility] [place] [address] [employer] Supervisor: Con Oseguera MD Eosinophils (Bld) [#/Vol] 0.39 10*3/uL Normal 0.0-0.4 [facility] Comment on above: Performed By: #### H H, BMP #### [facility] [facility] [place] [address] [employer] Supervisor: Con Oseguera MD Eosinophils/100 WBC (Bld) 5 % High 0-4 [facility] Comment on above: Performed By: #### H H, BMP #### [facility] [facility] [place] [address] [employer] Supervisor: Con Oseguera MD Lymphocytes (Bld) [#/Vol] 2.00 10*3/uL Normal 1.0-4.8 [facility] Comment on above: Performed By: #### H H, BMP #### [facility] [address] [place] [address] [employer] Supervisor: Con Oseguera MD Lymphocytes/100 WBC (Bld) 26 % Normal 24-44 [facility] Comment on above: Performed By: #### H H, BMP #### [facility] [address] [place] [address] [employer] Supervisor: Con Oseguera MD Monocytes (Bld) [#/Vol] 0.69 10*3/uL Normal 0.1-1.3 [facility] Comment on above: Performed By: #### H H, BMP #### [facility] [address] [place] [address] [employer] Supervisor: Con Oseguera MD Monocytes/100 WBC (Bld) 9 % High 1-7 [facility] Comment on above: Performed By: #### H H, BMP #### [facility] [address] [place] [address] [employer] Supervisor: Con Oseguera MD Morphology Theo (Bld) [Interp] ANISOCYTOSIS PRESENT Normal [facility] Comment on above: Result Comment: 1+ ELLIPTOCYTES 1+ ECHINOCYTES Performed By: #### H H, BMP #### [facility] [facility] [place] [address] [employer] Supervisor: Con Osegeura MD Neutrophil (Seg) 59 % Normal 36-66 [facility] Comment on above: Performed By: #### H H, BMP #### [facility] [place] [address] [employer] Supervisor: Con Oseguera MD Erythrocyte distribution width (RBC) [Ratio] 28.8 % High 11.5-14.9 [facility] Comment on above: Performed By: #### H H, BMP #### [facility] [address] [place] [address] [employer] Supervisor: Con Oseguera MD Hematocrit (Bld) [Volume fraction] 33.5 % Low 41-53 [facility] Comment on above: Performed By: #### H H, BMP #### [facility] [facility] [place] [address] [employer] Supervisor: Con Oseguera MD Hemoglobin (Bld) [Mass/Vol] 10.5 g/dL Low 13.5-17.5 [facility] Comment on above: Performed By: #### H H, BMP #### [facility] [address] [place] [address]. [place] [address] [employer] Supervisor: Con Oseguera MD MCH (RBC) [Entitic mass] 23.6 pg Low 26-34 [facility] Comment on above: Performed By: #### H H, BMP #### [facility] [facility] [place] [address] [employer] Supervisor: oCn Oseguera MD MCHC (RBC) [Mass/Vol] 31.3 g/dL Normal 31-37 [facility] Comment on above: Performed By: #### H H, BMP #### [facility] [address] [place] [address]. [place] [address] [employer] Supervisor: Con Oseguera MD MCV (RBC) [Entitic vol] 75.4 fL Low 80-100 [facility] Comment on above: Performed By: #### H H, BMP #### [facility] [facility] [place] [address] [employer] Supervisor: Con Oseguera MD Platelet mean volume (Bld) [Entitic vol] 8.9 fL Normal 6.0-12.0 [facility] Comment on above: Performed By: #### H H, BMP #### [facility] [address] [place], [place] [address] [place] [address] [employer] Supervisor: Con Oseguera MD Platelets (Bld) [#/Vol] 305 10*3/uL Normal 150-450 [facility] Comment on above: Performed By: #### H H, BMP #### [facility] [address] [place] [address] [employer] Supervisor: Con Oseguera MD RBC (Bld) [#/Vol] 4.44 10*6/uL Low 4.5-5.9 [facility] Comment on above: Performed By: #### H H, BMP #### [facility] [facility] [place] [address] [employer] Supervisor: Con Oseguera MD WBC (Bld) [#/Vol] 7.7 10*3/uL Normal 3.5-11.0 [facility] Comment on above: Performed By: #### H H, BMP #### [facility] [facility] [place] [address] [employer] Supervisor: Con Osgeuera MD Abs.Imm.Granulocyte NOT REPORTED Normal 0.00-0.30 [facility] Comment on above: Performed By: #### H H, BMP #### [facility] [facility] [place] [address] [employer] Supervisor: Con Oseguera MD Auto Diff Performed NOT REPORTED Normal [facility] Comment on above: Performed By: #### H H, BMP #### [facility] [place] [address] [employer] Supervisor: Con Oseguera MD Immature granulocytes (Bld) [#/Vol] NOT REPORTED Normal 0 [facility] Comment on above: Performed By: #### H H, BMP #### [facility] [place] [address] [employer] Supervisor: Con Oseguera MD NRBC Automated NOT REPORTED Normal [facility] Comment on above: Performed By: #### H H, BMP #### [facility] [address] [place] [address] [employer] Supervisor: Con Oseguera MD Platelets (Bld) [#/Vol] NOT REPORTED Normal [facility] Comment on above: Performed By: #### H H, BMP #### [facility] [address] [facility] [place] [address] [employer] Supervisor: Con Oseguera MD RBC morphology finding Nom (Bld) NOT REPORTED Normal [facility] Comment on above: Performed By: #### H H, BMP #### [facility] [address] [place] [address] [employer] Supervisor: Con Oseguera MD WBC Morphology NOT REPORTED Normal [facility] Comment on above: Performed By: #### H H, BMP #### [facility] [address] [place] [address] [employer] Supervisor: Con Oseguera MD Otheron 03-27-2019 Immature granulocytes [...] Observations UA NOT REPORTED NOT REQ. [facility] [place] RBC (U) [#/Vol] 20 TO 50 /HPF [facility] [place] Renal Epithelial, Urine NOT REPORTED 0 /HPF [facility] [place] Trichomonas, UA NOT REPORTED None [facility] [place] WBC, UA 0 TO 2 /HPF [facility] [place] Yeast, UA NOT REPORTED None [facility] [place] - [facility], [place] Otheron 03-16-2019 Casts UA /LPF [facility], [place] UA w/Reflex Cultureon 2018 Acetoacetic Acid,Ur Negative Normal NEG [facility] Comment on above: Performed By: #### H H, BMP #### [facility] [address] [place] [place] [address] [employer] Supervisor: Con Oseguera MD Bilirubin, SemiQt,Ur Negative Normal NEG [facility] Comment on above: Performed By: #### H H, BMP #### [facility] [address] [place] [place] [address] [employer] Supervisor: Con Oseguera MD Color (U) YELLOW Normal YEL [facility] Comment on above: Performed By: #### H H, BMP #### [facility] [address] [place] [address] [employer] Supervisor: Con Oseguera MD Glucose Ql (U) Negative Normal NEG [facility] Comment on above: Performed By: #### H H, BMP #### [facility] [address] [place] [place] [address] [employer] Supervisor: Con Oseguera MD Hemoglobin, Ur SMALL Abnormal NEG [facility] Comment on above: Performed By: #### H H, BMP #### [facility] [address] [place] [address] [employer] Supervisor: Con Oseguera MD Leukocyte esterase Test strip Ql (U) Negative Normal NEG [facility] Comment on above: Performed By: #### H H, BMP #### [facility] [address] [place] [address] [employer] Supervisor: Con Oseguera MD Nitrite,Ur Negative Normal NEG [facility] Comment on above: Performed By: #### H H, BMP #### [facility] [address] [place] [address] [employer] Supervisor: Con Oseguera MD pH (U) 6.5 [pH] Normal 5.0-8.0 [facility] Comment on above: Performed By: #### H H, BMP #### [facility] [address] [place] [address] [employer] Supervisor: Con Oseguera MD Protein Ql (U) Negative Normal NEG [facility] Comment on above: Performed By: #### H H, BMP #### [facility] [place] [address] [employer] Supervisor: Con Oseguera MD Specific gravity (U) [Rel density] 1.008 Normal 1.000-1.030 [facility] Comment on above: Performed By: #### H H, BMP #### [facility] [place] [address] [employer] Supervisor: Con Oseguera MD Turbidity CLEAR Normal CLEAR [facility] Comment on above: Performed By: #### H H, BMP #### [facility] [address] [place] [address] [employer] Supervisor: Con Oseguera MD Urobilinogen,Ur Normal Normal NORM [facility] Comment on above: Performed By: #### H H, BMP #### [facility] [place] [address] [employer] Supervisor: Con Oseguera MD Comment NOT REPORTED Normal [facility] Comment on above: Performed By: #### H H, BMP #### [facility] [place] [address] [employer] Supervisor: Con Oseguera MD Urinalysis Reflex to Culture on 03-16-2019 Bilirubin Urine Negative NEGATIVE [facility] Color, UA YELLOW YELLOW [facility], [place] Glucose, Ur Negative NEGATIVE [facility], [place] Interpretation and review of laboratory results Abnormal [facility], [place] Ketones Ql (U) Negative NEGATIVE [facility] [place], [place] Leukocyte esterase Test strip Ql (U) Negative NEGATIVE [facility], [place] Nitrite, Urine Negative NEGATIVE [facility], [place] pH, UA 6.5 [facility], [place] Protein (U) [Mass/Vol] Negative NEGATIVE [facility], [place] Specific [place], UA 1.008 [facility], [place] Turbidity UA CLEAR CLEAR [facility], [place] Urinalysis Comments NOT REPORTED [facility], [place] Urine Hgb SMALL Abnormal NEGATIVE [facility], [place] Urobilinogen, Urine Normal Normal [place], [place] Urinalysis,Microon 9 ----- Normal [facility] Comment on above: Performed By: #### H H, BMP #### [facility] [address] [place] [address] [employer] Supervisor: Con Oseguera MD Epithelial cells LM.HPF (Urine sed) [#/Area] 0 TO 2 Normal [facility] Comment on above: Performed By: #### H H, BMP #### [facility] [address] [place] [address] [employer] Supervisor: Con Oseguera MD RBC (U) [#/Vol] 20 TO 50 Normal [facility] Comment on above: Performed By: #### H H, BMP #### [facility] [address] [place] [address] [employer] Supervisor: Con Oseguera MD WBC (U) [#/Vol] 0 TO 2 Normal [facility] Comment on above: Performed By: #### H H, BMP #### [facility] [address] [place] [address] [employer] Supervisor: Con Oseguera MD Amorphous sediment LM Ql (Urine sed) NOT REPORTED Normal NONE [facility] Comment on above: Performed By: #### H H, BMP #### [facility] [address] [place] [address] [employer] Supervisor: Con Oseguera MD Bacteria LM.HPF (Urine sed) [#/Area] NOT REPORTED Normal NONE [facility] Comment on above: Performed By: #### H H, BMP #### [facility] [address] [place] [address] [employer] Supervisor: Con Oseguera MD Casts LM.LPF (Urine sed) [#/Area] NOT REPORTED Normal [facility] Comment on above: Performed By: #### H H, BMP #### [facility] [address] [place] [address] [employer] Supervisor: Con Oseguera MD Crystals LM Nom (Urine sed) NOT REPORTED Normal NONE [facility] Comment on above: Performed By: #### H H, BMP #### [facility] [address] [place] [address] [employer] Supervisor: Con Oseguera MD Epithelial, Renal NOT REPORTED Normal 0 [facility] Comment on above: Performed By: #### H H, BMP #### [facility] [address] [place] [address] [employer] Supervisor: Con Oseguera MD Mucus Strands NOT REPORTED Normal NONE [facility] Comment on above: Performed By: #### H H, BMP #### [facility] [address] [place] [address] [employer] Supervisor: Con Oseguera MD Other Observations NOT REPORTED Normal NREQ [facility] Comment on above: Performed By: #### H H, BMP #### [facility] [address] [place] [address] [employer] Supervisor: Con Oseguera MD Trichomonas NOT REPORTED Normal NONE [facility] Comment on above: Performed By: #### H H, BMP #### [facility] [place] [address] [employer] Supervisor: Con Oseguera MD Yeast LM Ql (Urine sed) NOT REPORTED Normal NONE [facility] Comment on above: Performed By: #### H H, BMP #### [facility] [address] [place] [address] [employer] Supervisor: Con Oseguera MD Basic Metab w/rfx MGon 03-13 (cont.) Normal [facility] Comment on above: Result Comment: Aver age GFR for 70 or more years old: 75 mL/min/1.73sq m Chronic Kidney Disease: <60 mL/min/1.73sq m Kidney failure: <15 mL/min/1.73sq m eGFR calculated using average adult body mass. Additional eGFR calculator available at: http://www.Canary Calendar/multiple_crcl_2012.htm Performed By: #### H H, BMP #### [facility] [address] [place] [address] [employer] Supervisor: Con Oseguera MD Anion gap [Moles/Vol] 12 mmol/L Normal 9-17 [facility] Comment on above: Performed By: #### H H, BMP #### [facility] [address] [place] [address] [employer] Supervisor: Con Oseguera MD Calcium [Mass/Vol] 9.2 mg/dL Normal 8.6-10.4 [facility] Comment on above: Performed By: #### H H, BMP #### [facility] [address] [place] [address] [employer] Supervisor: Con Oseguera MD Chloride [Moles/Vol] 105 mmol/L Normal 98-107 [facility] Comment on above: Performed By: #### H H, BMP #### [facility] [address] [place] [address] [employer] Supervisor: Con Oseguera MD CO2 [Moles/Vol] 26 mmol/L Normal 20-31 [facility] Comment on above: Performed By: #### H H, BMP #### [facility] [address] [place] [address] [employer] Supervisor: Con Oseguera MD Creatinine [Mass/Vol] 1.41 mg/dL High 0.70-1.20 [facility] Comment on above: Performed By: #### H H, BMP #### [facility] [place] [address] [employer] Supervisor: Con Oseguera MD GFR, Amer 58 mL/min Low >60 [facility] Comment on above: Performed By: #### H H, BMP #### [facility] [place] [address] [employer] Supervisor: Con Oseguera MD GFR,non Amer 48 mL/min Low >60 [facility] Comment on above: Performed By: #### H H, BMP #### [facility] [place] [address] [employer] Supervisor: Con Oseguera MD Glucose [Mass/Vol] 90 mg/dL Normal 70-99 [facility] Comment on above: Performed By: #### H H, BMP #### [facility] [place] [address] [employer] Supervisor: Con Oseguera MD Potassium [Moles/Vol] 4.1 mmol/L Normal 3.7-5.3 [facility] Comment on above: Performed By: #### H H, BMP #### [facility] [place] [address] [employer] Supervisor: Con Oseguera MD Sodium [Moles/Vol] 143 mmol/L Normal 135-144 [facility] Comment on above: Performed By: #### H H, BMP #### [facility] [address] [place] [address] [employer] Supervisor: Con Oseguera MD Urea nitrogen [Mass/Vol] 19 mg/dL Normal 8- [facility] Comment on above: Performed By: #### H H, BMP #### [facility] [address] [place] [address] [employer] Supervisor: Con Oseguera MD BUN/CRE Ratio NOT REPORTED Normal - [facility] Comment on above: Performed By: #### H H, BMP #### [facility] [address] [place] [address] [employer] Supervisor: Con Oseguera MD Staging: NOT REPORTED Normal [facility] Comment on above: Performed By: #### H H, BMP #### [facility] [address] [place] [address] [employer] Supervisor: Con Oseguera MD Basic Metabolic Panel w/ Ref milagros to MGon 03-13-2019 Anion gap [Moles/Vol] 12 mmol/L 9 - 17 mmol/L [place], [place] Bun/Cre Ratio NOT REPORTED [facility], [place] Calcium [Mass/Vol] 9.2 mg/dL 8.6 - 10. 4 mg/dL [place] Chloride [Moles/Vol] 105 mmol/L 98 - 10 7 mmol/L [place] CO2 [Moles/Vol] 26 mmol/L 20 - 31 mmol/L [place] Creatinine [Mass/Vol] 1.41 mg/dL High 0.7 - 1.2 mg/dL [place] GFR 58 mL/min Low >60 [place] GFR Non- 48 mL/min Low >60 [place], [place] GFR/1.73 sq M predicted among non-blacks MDRD (S/P/Bld) [Vol rate/Area] [place], [place] Comment on above: Average GFR for 70 o r more years old: 75 mL/min/1.73sq m Chronic Kidney Disease: <60 mL/min/1.73sq m Kidney failure: <15 mL/min/1.73sq m eGFR calculated using average adult body mass. Additional eGFR calculator available at: http://www.Canary Calendar/multiple_crcl_2011.htm GFR/1.73 sq M predicted among non-blacks MDRD (S/P/Bld) [Vol rate/Area] NOT REPORTED [place], [place] Glucose [Mass/Vol] 90 mg/dL 70 - 99 mg/dL [place], [place] Interpretation and review of laboratory results Abnormal [place] Potassium [Moles/Vol] 4.1 mmol/L 3.7 - 5.3 mmol/L [place] Sodium [Moles/Vol] 143 mmol/L 135 - 144 mmol/L [place] Urea nitrogen [Mass/Vol] 19 mg/dL 8 - 23 mg/dL [place] POC Glucose Fingerstickon Glucose [Mass/Vol] 195 mg/dL High 75 - 110 mg/dL [place], [place] Interpretation and review of laboratory results Abnormal [place], [place] Glucose [Mass/Vol] 79 mg/dL 75 - 110 mg/dL [place] Basic Metab w/rfx MGon 03-12 (cont.) Normal [facility] Comment on above: Result Comment: Aver age GFR for 70 or more years old: 75 mL/min/1.73sq m Chronic Kidney Disease: <60 mL/min/1.73sq m Kidney failure: <15 mL/min/1.73sq m eGFR calculated using average adult body mass. Additional eGFR calculator available at: http://www.Canary Calendar/multiple_crcl_2011.htm Performed By: #### H H, BMP #### [facility] [address] [place] [address] [employer] Supervisor: Con Oseguera MD Anion gap [Moles/Vol] 11 mmol/L Normal 9-17 [facility] Comment on above: Performed By: #### H H, BMP #### [facility] [address] [place] [address] [employer] Supervisor: Con Oseguera MD Calcium [Mass/Vol] 9.2 mg/dL Normal 8.6-10.4 [facility] Comment on above: Performed By: #### H H, BMP #### [facility] [address] [place] [address] [employer] Supervisor: Con Oseguera MD Chloride [Moles/Vol] 108 mmol/L High 98-107 [facility] Comment on above: Performed By: #### H H, BMP #### [facility] [address] [place] [address] [employer] Supervisor: Con Oseguera MD CO2 [Moles/Vol] 26 mmol/L Normal 20-31 [facility] Comment on above: Performed By: #### H H, BMP #### [facility] [address] [place] [address] [employer] Supervisor: Con Oseguera MD Creatinine [Mass/Vol] 1.41 mg/dL High 0.70-1.20 [facility] Comment on above: Performed By: #### H H, BMP #### [facility] [address] [place] [address] [employer] Supervisor: Con Oseguera MD GFR, Amer 58 mL/min Low >60 [facility] Comment on above: Performed By: #### H H, BMP #### [facility] [address] [place] [address] [employer] Supervisor: Con Oseguera MD GFR,non Amer 48 mL/min Low >60 [facility] Comment on above: Performed By: #### H H, BMP #### [facility] [address] [place] [address] [employer] Supervisor: Con Oseguera MD Glucose [Mass/Vol] 81 mg/dL Normal 70-99 [facility] Comment on above: Performed By: #### H H, BMP #### [facility] [address] [place] [address] [employer] Supervisor: Con Oseguera MD Potassium [Moles/Vol] 4.1 mmol/L Normal 3.7-5.3 [facility] Comment on above: Performed By: #### H H, BMP #### [facility] [place] [address] [employer] Supervisor: Con Oseguera MD Sodium [Moles/Vol] 145 mmol/L High 135-144 [facility] Comment on above: Performed By: #### H H, BMP #### [facility] [address] [place] [address] [employer] Supervisor: Con Oseguera MD Urea nitrogen [Mass/Vol] 20 mg/dL Normal 8-23 [facility] Comment on above: Performed By: #### H H, BMP #### [facility] [place] [address] [employer] Supervisor: Con Oseguera MD BUN/CRE Ratio NOT REPORTED Normal 9-20 [facility] Comment on above: Performed By: #### H H, BMP #### [facility] [address] [place] [address] [employer] Supervisor: Con Oseguera MD Staging: NOT REPORTED Normal [facility] Comment on above: Performed By: #### H H, BMP #### [facility] [address] [place] [address] [employer] Supervisor: Con Oseguera MD Basic Metabolic Panel w/ Ref milagros to MGon 03-12-2019 Anion gap [Moles/Vol] 11 mmol/L 9 - 17 mmol/L [place] Bun/Cre Ratio NOT REPORTED [place], [place] Calcium [Mass/Vol] 9.2 mg/dL 8.6 - 10. 4 mg/dL [place] Chloride [Moles/Vol] 108 mmol/L High 98 - 10 7 mmol/L [place] CO2 [Moles/Vol] 26 mmol/L 20 - 31 mmol/L [place] Creatinine [Mass/Vol] 1.41 mg/dL High 0.7 - 1.2 mg/dL [place], [place] GFR 58 mL/min Low >60 [place] GFR Non- 48 mL/min Low >60 [place] GFR/1.73 sq M predicted among non-blacks MDRD (S/P/Bld) [Vol rate/Area] NOT REPORTED [place], [place] GFR/1.73 sq M predicted among non-blacks MDRD (S/P/Bld) [Vol rate/Area] [place], [place] Comment on above: Average GFR for 70 o r more years old: 75 mL/min/1.73sq m Chronic Kidney Disease: <60 mL/min/1.73sq m Kidney failure: <15 mL/min/1.73sq m eGFR calculated using average adult body mass. Additional eGFR calculator available at: http://www.[employer]/multiple_crcl_2012.htm Glucose [Mass/Vol] 81 mg/dL 70 - 99 mg/dL [place] Interpretation and review of laboratory results Abnormal [place], [place] Potassium [Moles/Vol] 4.1 mmol/L 3.7 - 5.3 mmol/L [place] Sodium [Moles/Vol] 145 mmol/L High 135 - 144 mmol/L [place], [place] Urea nitrogen [Mass/Vol] 20 mg/dL 8 - 23 mg/dL [place], [place] POC Glucose Fingerstickon Glucose [Mass/Vol] 285 mg/dL High 75 - 110 mg/dL [place] Interpretation and review of laboratory results Abnormal [place], [place] Glucose [Mass/Vol] 286 mg/dL High 75 - 110 mg/dL [place], [place] Interpretation and review of laboratory results Abnormal [place] Glucose [Mass/Vol] 264 mg/dL High 75 - 110 mg/dL [place] Interpretation and review of laboratory results Abnormal [place] Glucose [Mass/Vol] 72 mg/dL Low 75 - 110 mg/dL [place] Interpretation and review of laboratory results Abnormal [place] Basic Metab w/rfx MGon 03-11 (cont.) Normal [facility] Comment on above: Result Comment: Aver age GFR for 70 or more years old: 75 mL/min/1.73sq m Chronic Kidney Disease: <60 mL/min/1.73sq m Kidney failure: <15 mL/min/1.73sq m eGFR calculated using average adult body mass. Additional eGFR calculator available at: http://www.[employer]/multiple_crcl_2012.htm Performed By: #### H H, BMP #### [facility] [address] [facility] [place], [place] [id number] [employer] Supervisor: Con Oseguera MD Anion gap [Moles/Vol] 10 mmol/L Normal 9-17 [facility] Comment on above: Performed By: #### H H, BMP #### [facility] [address] [facility] [place], [place] [id number] [employer] Supervisor: Con Oseguera MD Calcium [Mass/Vol] 9.3 mg/dL Normal 8.6-10.4 [facility] Comment on above: Performed By: #### H H, BMP #### [facility] [address] [facility] [place] [address] [employer] Supervisor: Con Oseguera MD Chloride [Moles/Vol] 104 mmol/L Normal 98-107 [facility] Comment on above: Performed By: #### H H, BMP #### [facility] [address] [place] [address] [employer] Supervisor: Con Oseguera MD CO2 [Moles/Vol] 26 mmol/L Normal 20-31 [facility] Comment on above: Performed By: #### H H, BMP #### [facility] [place] [address] [employer] Supervisor: Con Oseguera MD Creatinine [Mass/Vol] 1.49 mg/dL High 0.70-1.20 [facility] Comment on above: Performed By: #### H H, BMP #### [facility] [address] [place] [address]. [place] [address] [employer] Supervisor: Con Oseguera MD GFR, Amer 55 mL/min Low >60 [facility] Comment on above: Performed By: #### H H, BMP #### [facility] [facility] [place] [address] [employer] Supervisor: Con Oseguera MD GFR,non Amer 45 mL/min Low >60 [facility] Comment on above: Performed By: #### H H, BMP #### [facility] [facility] [place] [address] [employer] Supervisor: Con Oseguera MD Glucose [Mass/Vol] 78 mg/dL Normal 70-99 [facility] Comment on above: Performed By: #### H H, BMP #### [facility] [facility] [place] [address] [employer] Supervisor: Con Oseguera MD Potassium [Moles/Vol] 4.0 mmol/L Normal 3.7-5.3 [facility] Comment on above: Performed By: #### H H, BMP #### [facility] [address] [place] [address] [employer] Supervisor: Con Oseguera MD Sodium [Moles/Vol] 140 mmol/L Normal 135-144 [facility] Comment on above: Performed By: #### H H, BMP #### [facility] [address] [facility] [place] [address] [employer] Supervisor: Con Oseguera MD Urea nitrogen [Mass/Vol] 22 mg/dL Normal 8-23 [facility] Comment on above: Performed By: #### H H, BMP #### [facility] [address] [facility] [place] [address] [employer] Supervisor: Con Oseguera MD BUN/CRE Ratio NOT REPORTED Normal 9-20 [facility] Comment on above: Performed By: #### H H, BMP #### [facility] [address] [facility] [place] [address] [employer] Supervisor: Con Oseguera MD Staging: NOT REPORTED Normal [facility] Comment on above: Performed By: #### H H, BMP #### [facility] [address] [facility] [place] [address] [employer] Supervisor: Con Oseguera MD Basic Metabolic Panel w/ Ref milagros to MGon 03-11-2019 Anion gap [Moles/Vol] 10 mmol/L 9 - 17 mmol/L [facility] Bun/Cre Ratio NOT REPORTED [facility], [place] Calcium [Mass/Vol] 9.3 mg/dL 8.6 - 10. 4 mg/dL [facility] Chloride [Moles/Vol] 104 mmol/L 98 - 10 7 mmol/L [facility] CO2 [Moles/Vol] 26 mmol/L 20 - 31 mmol/L [facility] Creatinine [Mass/Vol] 1.49 mg/dL High 0.7 - 1.2 mg/dL [place] GFR 55 mL/min Low >60 [place] GFR Non- 45 mL/min Low >60 [place] GFR/1.73 sq M predicted among non-blacks MDRD (S/P/Bld) [Vol rate/Area] [place], [place] Comment on above: Average GFR for 70 o r more years old: 75 mL/min/1.73sq m Chronic Kidney Disease: <60 mL/min/1.73sq m Kidney failure: <15 mL/min/1.73sq m eGFR calculated using average adult body mass. Additional eGFR calculator available at: http://www.Canary Calendar/multiple_crcl_2011.htm GFR/1.73 sq M predicted among non-blacks MDRD (S/P/Bld) [Vol rate/Area] NOT REPORTED [place], [place] Glucose [Mass/Vol] 78 mg/dL 70 - 99 mg/dL [place], [place] Interpretation and review of laboratory results Abnormal [place] Potassium [Moles/Vol] 4.0 mmol/L 3.7 - 5.3 mmol/L [place] Sodium [Moles/Vol] 140 mmol/L 135 - 144 mmol/L [place] Urea nitrogen [Mass/Vol] 22 mg/dL 8 - 23 mg/dL [place] POC Glucose Fingerstickon Glucose [Mass/Vol] 213 mg/dL High 75 - 110 mg/dL [place] Interpretation and review of laboratory results Abnormal [place] Glucose [Mass/Vol] 139 mg/dL High 75 - 110 mg/dL [place] Interpretation and review of laboratory results Abnormal [place] Glucose [Mass/Vol] 195 mg/dL High 75 - 110 mg/dL [place] Interpretation and review of laboratory results Abnormal [place] Glucose [Mass/Vol] 73 mg/dL Low 75 - 110 mg/dL [place] Interpretation and review of laboratory results Abnormal [place] XR CHEST (2 VW)on 03-11-2019 XR [...] Maxwell Chaudhry MD 03/11/19 Final result Normal [facility] XR CHEST STANDARD (2 VW)on 0 [...] stable. No acute osseous abnormality is seen. [facility] [place] 1. Stable bibasilar pulmonary opacities that may reflect atelectasis or pneumonia. 2. Stable small left pleural effusion. [place], [place] Stan, Mhpn Incoming Radiant Results From [facility] - 03/11/2019 2:19 PM EDT EXAMINATION: TWO [...] pneumonia. 2. Stable small left pleural effusion. [place] Basic Metab w/rfx MGon 03-10 (cont.) Normal [facility] Comment on above: Result Comment: Aver age GFR for 70 or more years old: 75 mL/min/1.73sq m Chronic Kidney Disease: <60 mL/min/1.73sq m Kidney failure: <15 mL/min/1.73sq m eGFR calculated using average adult body mass. Additional eGFR calculator available at: http://www.Smartpay.G[employer] Services/multiple_crcl_2011.htm Performed By: #### B MP #### [facility] [address] [place] [address] [employer] Supervisor: Con Oseguera MD Anion gap [Moles/Vol] 12 mmol/L Normal 9-17 [facility] Comment on above: Performed By: #### B MP #### [facility] [place] [address] [employer] Supervisor: Con Oseguera MD Calcium [Mass/Vol] 9.3 mg/dL Normal 8.6-10.4 [facility] Comment on above: Performed By: #### B MP #### [facility] [place] [address] [employer] Supervisor: Con Oseguera MD Chloride [Moles/Vol] 102 mmol/L Normal 98-107 [facility] Comment on above: Performed By: #### B MP #### [facility] [address] [facility] [place] [address] [employer] Supervisor: Con Oseguera MD CO2 [Moles/Vol] 27 mmol/L Normal 20-31 [facility] Comment on above: Performed By: #### B MP #### [facility] [place] [address] [employer] Supervisor: Con Oseguera MD Creatinine [Mass/Vol] 1.69 mg/dL High 0.70-1.20 [facility] Comment on above: Performed By: #### B MP #### [facility] [address] [place] [address] [employer] Supervisor: Con Oseguera MD GFR, Amer 47 mL/min Low >60 [facility] Comment on above: Performed By: #### B MP #### [facility] [address] [place] [address] [employer] Supervisor: Con Oseguera MD GFR,non Amer 39 mL/min Low >60 [facility] Comment on above: Performed By: #### B MP #### [facility] [address] [place] [address] [employer] Supervisor: Con Oseguera MD Glucose [Mass/Vol] 87 mg/dL Normal 70-99 [facility] Comment on above: Performed By: #### B MP #### [facility] [address] [place] [address] [employer] Supervisor: Con Oseguera MD Potassium [Moles/Vol] 4.2 mmol/L Normal 3.7-5.3 [facility] Comment on above: Performed By: #### B MP #### [facility] [address] [place] [address] [employer] Supervisor: Con Oseguera MD Sodium [Moles/Vol] 141 mmol/L Normal 135-144 [facility] Comment on above: Performed By: #### B MP #### [facility] [address] [place] [address] [employer] Supervisor: Con Oseguera MD Urea nitrogen [Mass/Vol] 24 mg/dL High 8-23 [facility] Comment on above: Performed By: #### B MP #### [facility] [address] [place] [address] [employer] Supervisor: Con Oseguera MD BUN/CRE Ratio NOT REPORTED Normal 9-20 [facility] Comment on above: Performed By: #### B MP #### [facility] [address] [place] [address] [employer] Supervisor: Con Oseguera MD Staging: NOT REPORTED Normal [facility] Comment on above: Performed By: #### B MP #### [facility] [address] [place] [address] [employer] Supervisor: Con Oseguera MD Basic Metabolic Panel w/ Ref milagros to MGon 03-10-2019 Anion gap [Moles/Vol] 12 mmol/L 9 - 17 mmol/L [place] Bun/Cre Ratio NOT REPORTED [place], [place] Calcium [Mass/Vol] 9.3 mg/dL 8.6 - 10. 4 mg/dL [place] Chloride [Moles/Vol] 102 mmol/L 98 - 10 7 mmol/L [place] CO2 [Moles/Vol] 27 mmol/L 20 - 31 mmol/L [place] Creatinine [Mass/Vol] 1.69 mg/dL High 0.7 - 1.2 mg/dL [place] GFR 47 mL/min Low >60 [place], [place] GFR Non- 39 mL/min Low >60 [place] GFR/1.73 sq M predicted among non-blacks MDRD (S/P/Bld) [Vol rate/Area] NOT REPORTED [place] GFR/1.73 sq M predicted among non-blacks MDRD (S/P/Bld) [Vol rate/Area] [place] Comment on above: Average GFR for 70 o r more years old: 75 mL/min/1.73sq m Chronic Kidney Disease: <60 mL/min/1.73sq m Kidney failure: <15 mL/min/1.73sq m eGFR calculated using average adult body mass. Additional eGFR calculator available at: http://www.Smartpay.G2 Web Services/multiple_crcl_2012.htm Glucose [Mass/Vol] 87 mg/dL 70 - 99 mg/dL [place] Interpretation and review of laboratory results Abnormal [place] Potassium [Moles/Vol] 4.2 mmol/L 3.7 - 5.3 mmol/L [place] Sodium [Moles/Vol] 141 mmol/L 135 - 144 mmol/L [place] Urea nitrogen [Mass/Vol] 24 mg/dL High 8 - 23 mg/dL [place] Digoxinon 03-10-2019 Digoxin [Mass/Vol] 0.6 ng/mL Normal 0.5-2.0 [facility] Comment on above: Result Comment: Digoxin Reference Range: Heart Failure 0.5-0.9 Atrial Fibrillation 0.8-2.0 Performed By: #### B MP #### [facility] [address] [facility] [place] [address] [employer] Supervisor: Con Oseguera MD Digoxin [Mass/Vol] 915 ng/mL Normal [facility] Comment on above: Performed By: #### B MP #### [facility] [address] [facility] [place], [place] [id number] [employer] Supervisor: Con Oseguera MD Digoxin [Mass/Vol] 6010041 ng/mL Normal [facility] Comment on above: Performed By: #### B MP #### [facility] [address] [facility] [place] [address] [employer] Supervisor: Con Oseguera MD Digoxin [Mass/Vol] 125mct Normal [facility] Comment on above: Performed By: #### B MP #### [facility] [address] [facility] [place] [address] [employer] Supervisor: Con Oseguera MD Digoxin Levelon 03-10-2019 Digoxin Date Last Dose [id number] [place] Digoxin Dose Amount 125mct [place] Digoxin Dose Time 915 [place], [place] INR Coag (Bld) [Relative time] 0.6 ng/mL 0.5 - 2 ng/mL [place] Comment on above: Digoxin Reference Range: Heart Failure 0.5-0.9 Atrial Fibrillation 0.8-2.0 Magnesiumon 03-10-2019 Magnesium [Mass/Vol] 2.1 mg/dL Normal 1.6-2.6 [facility] Comment on above: Performed By: #### B MP #### [facility] [address] [facility] [place], [place] [id number] [employer] Supervisor: Con Oseguera MD Magnesium [Mass/Vol] 2.1 mg/dL 1.6 - 2 .6 mg/dL [place], [place] POC Glucose Fingerstickon Glucose [Mass/Vol] 298 mg/dL High 75 - 110 mg/dL [place] Interpretation and review of laboratory results Abnormal [place] Glucose [Mass/Vol] 88 mg/dL 75 - 110 mg/dL [place] Glucose [Mass/Vol] 120 mg/dL High 75 - 110 mg/dL [place] Interpretation and review of laboratory results Abnormal [place] Glucose [Mass/Vol] 87 mg/dL 75 - 110 mg/dL [place] Basic Metab w/rfx MGon 03-09 (cont.) Normal [facility] Comment on above: Result Comment: Aver age GFR for 70 or more years old: 75 mL/min/1.73sq m Chronic Kidney Disease: <60 mL/min/1.73sq m Kidney failure: <15 mL/min/1.73sq m eGFR calculated using average adult body mass. Additional eGFR calculator available at: http://www.Smartpay.com/multiple_crcl_2012.htm Performed By: #### B MP #### [facility] [address] [place], [place] [id number] [employer] Supervisor: Con Oseguera MD Anion gap [Moles/Vol] 15 mmol/L Normal 9-17 [facility] Comment on above: Performed By: #### B MP #### [facility] [address] [place] [address] [employer] Supervisor: Con Oseguera MD Calcium [Mass/Vol] 10.0 mg/dL Normal 8.6-10.4 [facility] Comment on above: Performed By: #### B MP #### [facility] [address] [place] [address] [employer] Supervisor: Con Oseguera MD Chloride [Moles/Vol] 98 mmol/L Normal 98-107 [facility] Comment on above: Performed By: #### B MP #### [facility] [address] [place] [address] [employer] Supervisor: Con Oseguera MD CO2 [Moles/Vol] 24 mmol/L Normal 20-31 [facility] Comment on above: Performed By: #### B MP #### [facility] [address] [place] [address] [employer] Supervisor: Con Oseguera MD Creatinine [Mass/Vol] 1.54 mg/dL High 0.70-1.20 [facility] Comment on above: Performed By: #### B MP #### [facility] [address] [place] [address] [employer] Supervisor: Con Oseguera MD GFR, Amer 53 mL/min Low >60 [facility] Comment on above: Performed By: #### B MP #### [facility] [address] [place] [address] [employer] Supervisor: Con Oseguera MD GFR,non Amer 44 mL/min Low >60 [facility] Comment on above: Performed By: #### B MP #### [facility] [address] [place] [address] [employer] Supervisor: Con Oseguera MD Glucose [Mass/Vol] 119 mg/dL High 70-99 [facility] Comment on above: Performed By: #### B MP #### [facility] [address] [place] [address] [employer] Supervisor: Con Oseguera MD Potassium [Moles/Vol] 4.4 mmol/L Normal 3.7-5.3 [facility] Comment on above: Performed By: #### B MP #### [facility] [address] [place] [address] [employer] Supervisor: Con Oseguera MD Sodium [Moles/Vol] 137 mmol/L Normal 135-144 [facility] Comment on above: Performed By: #### B MP #### [facility] [address] [place] [address] [employer] Supervisor: Con Oseguera MD Urea nitrogen [Mass/Vol] 22 mg/dL Normal 8-23 [facility] Comment on above: Performed By: #### B MP #### [facility] [address] [place] [address] [employer] Supervisor: Con Oseguera MD BUN/CRE Ratio NOT REPORTED Normal 9-20 [facility] Comment on above: Performed By: #### B MP #### [facility] [address] [place] [address] [employer] Supervisor: Con Oseguera MD Staging: NOT REPORTED Normal [facility] Comment on above: Performed By: #### B MP #### [facility] [address] [place] [address] [employer] Supervisor: Con Oseguera MD Basic Metabolic Panel w/ Ref milagros to MGon 03-09-2019 Anion gap [Moles/Vol] 15 mmol/L 9 - 17 mmol/L [facility] Bun/Cre Ratio NOT REPORTED [facility] [place], [place] Calcium [Mass/Vol] 10.0 mg/dL 8.6 - 10. 4 mg/dL [place] Chloride [Moles/Vol] 98 mmol/L 98 - 10 7 mmol/L [place] CO2 [Moles/Vol] 24 mmol/L 20 - 31 mmol/L [place] Creatinine [Mass/Vol] 1.54 mg/dL High 0.7 - 1.2 mg/dL [place] GFR 53 mL/min Low >60 [place], [place] GFR Non- 44 mL/min Low >60 [place] GFR/1.73 sq M predicted among non-blacks MDRD (S/P/Bld) [Vol rate/Area] [place] Comment on above: Average GFR for 70 o r more years old: 75 mL/min/1.73sq m Chronic Kidney Disease: <60 mL/min/1.73sq m Kidney failure: <15 mL/min/1.73sq m eGFR calculated using average adult body mass. Additional eGFR calculator available at: http://www.Canary Calendar/multiple_crcl_2012.htm GFR/1.73 sq M predicted among non-blacks MDRD (S/P/Bld) [Vol rate/Area] NOT REPORTED [place], [place] Glucose [Mass/Vol] 119 mg/dL High 70 - 99 mg/dL [place] Interpretation and review of laboratory results Abnormal [place] Potassium [Moles/Vol] 4.4 mmol/L 3.7 - 5.3 mmol/L [place] Sodium [Moles/Vol] 137 mmol/L 135 - 144 mmol/L [place] Urea nitrogen [Mass/Vol] 22 mg/dL 8 - 23 mg/dL [place] Cult,Urine,Cathon 03-09-2019 Cult,Urine,Cath Specimen Description .CATHETERIZED URINE Special Requests NOT REPORTED Culture KLEBSIELLA PNEUMONIAE >[id number] CFU/ML Report Status FINAL 03/09/2019 SUSCEPTIBILITY Organism [...] <=20 SUSCEPTIBLE Piperacillin/Tazobac sanabria <=4 SUSCEPTIBLE Normal [facility] Comment on above: Performed By: #### B MP #### [facility] [address] [place] [address] [employer] Supervisor: Con Oseguera MD POC Glucose Fingerstickon Glucose [Mass/Vol] 199 mg/dL High 75 - 110 mg/dL [place] Interpretation and review of laboratory results Abnormal [place] Glucose [Mass/Vol] 296 mg/dL High 75 - 110 mg/dL [place] Interpretation and review of laboratory results Abnormal [place] Glucose [Mass/Vol] 299 mg/dL High 75 - 110 mg/dL [place] Interpretation and review of laboratory results Abnormal [place] Glucose [Mass/Vol] 124 mg/dL High 75 - 110 mg/dL [place] Interpretation and review of laboratory results Abnormal [place] Urine culture via catheteron 03-09-2019 Culture KLEBSIELLA PNEUMONIAE >[id number] CFU/ML Abnormal [place] Interpretation and review of laboratory results Abnormal [place] Special Requests NOT REPORTED [place] Specimen Description .CATHETERIZED URINE [place] Basic Metab w/rfx MGon 03-08 (cont.) Normal [facility] Comment on above: Result Comment: Aver age GFR for 70 or more years old: 75 mL/min/1.73sq m Chronic Kidney Disease: <60 mL/min/1.73sq m Kidney failure: <15 mL/min/1.73sq m eGFR calculated using average adult body mass. Additional eGFR calculator available at: http://www.Smartpay.[employer]2 [employer] Services/multiple_crcl_2012.htm Performed By: #### B MP #### [facility] [address] [place] [address] [employer] Supervisor: Con Oseguera MD Anion gap [Moles/Vol] 11 mmol/L Normal 9-17 [facility] Comment on above: Performed By: #### B MP #### [facility] [address] [place] [address] [employer] Supervisor: Con Oseguera MD Calcium [Mass/Vol] 9.3 mg/dL Normal 8.6-10.4 [facility] Comment on above: Performed By: #### B MP #### [facility] [place] [address] [employer] Supervisor: Con Oseguera MD Chloride [Moles/Vol] 100 mmol/L Normal 98-107 [facility] Comment on above: Performed By: #### B MP #### [facility] [place] [address] [employer] Supervisor: Con Oseguera MD CO2 [Moles/Vol] 28 mmol/L Normal 20-31 [facility] Comment on above: Performed By: #### B MP #### [facility] [place] [address] [employer] Supervisor: Con Oseguera MD Creatinine [Mass/Vol] 1.57 mg/dL High 0.70-1.20 [facility] Comment on above: Performed By: #### B MP #### [facility] [place] [address] [employer] Supervisor: Con Oseguera MD GFR, Amer 52 mL/min Low >60 [facility] Comment on above: Performed By: #### B MP #### [facility] [address] [place] [address] [employer] Supervisor: Con Oseguera MD GFR,non Amer 43 mL/min Low >60 [facility] Comment on above: Performed By: #### B MP #### [facility] [address] [place] [address] [employer] Supervisor: Con Oseguera MD Glucose [Mass/Vol] 75 mg/dL Normal 70-99 [facility] Comment on above: Performed By: #### B MP #### [facility] [address] [place] [address] [employer] Supervisor: Con Oseguera MD Potassium [Moles/Vol] 4.6 mmol/L Normal 3.7-5.3 [facility] Comment on above: Performed By: #### B MP #### [facility] [address] [place] [address] [employer] Supervisor: Con Oseguera MD Sodium [Moles/Vol] 139 mmol/L Normal 135-144 [facility] Comment on above: Performed By: #### B MP #### [facility] [address] [place] [address] [employer] Supervisor: Con Oseguera MD Urea nitrogen [Mass/Vol] 27 mg/dL High 8-23 [facility] Comment on above: Performed By: #### B MP #### [facility] [address] [place] [address] [employer] Supervisor: Con Oseguera MD BUN/CRE Ratio NOT REPORTED Normal 9-20 [facility] Comment on above: Performed By: #### B MP #### [facility] [address] [place] [address] [employer] Supervisor: Con Oseguera MD Staging: NOT REPORTED Normal [facility] Comment on above: Performed By: #### B MP #### [facility] [address] [place] [address] [employer] Supervisor: Con Oseguera MD Basic Metabolic Panel w/ Ref milagros to MGon 03-08-2019 Anion gap [Moles/Vol] 11 mmol/L 9 - 17 mmol/L [place] Bun/Cre Ratio NOT REPORTED [place], [place] Calcium [Mass/Vol] 9.3 mg/dL 8.6 - 10. 4 mg/dL [place] Chloride [Moles/Vol] 100 mmol/L 98 - 10 7 mmol/L [place] CO2 [Moles/Vol] 28 mmol/L 20 - 31 mmol/L [place] Creatinine [Mass/Vol] 1.57 mg/dL High 0.7 - 1.2 mg/dL [place] GFR 52 mL/min Low >60 [place], [place] GFR Non- 43 mL/min Low >60 [place] GFR/1.73 sq M predicted among non-blacks MDRD (S/P/Bld) [Vol rate/Area] [place] Comment on above: Average GFR for 70 o r more years old: 75 mL/min/1.73sq m Chronic Kidney Disease: <60 mL/min/1.73sq m Kidney failure: <15 mL/min/1.73sq m eGFR calculated using average adult body mass. Additional eGFR calculator available at: http://www.Smartpay.G2 Web Services/multiple_crcl_2012.htm GFR/1.73 sq M predicted among non-blacks MDRD (S/P/Bld) [Vol rate/Area] NOT REPORTED [place], [place] Glucose [Mass/Vol] 75 mg/dL 70 - 99 mg/dL [place] Interpretation and review of laboratory results Abnormal [place] Potassium [Moles/Vol] 4.6 mmol/L 3.7 - 5.3 mmol/L [place] Sodium [Moles/Vol] 139 mmol/L 135 - 144 mmol/L [place] Urea nitrogen [Mass/Vol] 27 mg/dL High 8 - 23 mg/dL [place] EKG 12 Leadon 03-08-2019 Atrial Rate 49 BPM [place] Q-T Interval 406 ms [place], [place] QRS Duration 80 ms [place], [place] QTc Calculation (Bazett) 465 ms [place] R [place] -13 degrees [place] T [place] 40 degrees [place] Ventricular Rate 79 BPM [place], [place] Stan, Mhpn Incoming [place] [facility] [place] 03/08/2019 10:18 AM EDT Atrial fibrillation Abnormal ECG When compared with ECG of 07-MAR-2019 17:56, (unconfirmed) No significant change was found [place] Atrial fibrillation Abnormal ECG When compared with ECG of 07-MAR-2019 17:56, (unconfirmed) No significant change was found [place] Hemoglobin A1Con 03-08-2019 HbA1c (Bld) [Mass fraction] 157 mg/dL Normal [facility] Comment on above: Result Comment: The ADA and AACC recommend providing the estimated average glucose result to permit better patient understanding of their HBA1c result. Performed By: #### B MP #### [facility] [address] [place] [address] [employer] Supervisor: Con Oseguera MD HbA1c (Bld) [Mass fraction] 7.1 % High 4.0-6.0 [facility] Comment on above: Performed By: #### B MP #### [facility] [address] [place], [place] [id number] [employer] Supervisor: Con Oseguera MD Glucose [Mass/Vol] 157 mg/dL [place], [place] Comment on above: The ADA and AACC rec ommend providing the estimated average glucose result to permit better patient understanding of their HBA1c result. HbA1c (Bld) [Mass fraction] 7.1 % High 4 - 6 % [place] Interpretation and review of laboratory results Abnormal [place] POC Glucose Fingerstickon Glucose [Mass/Vol] 220 mg/dL High 75 - 110 mg/dL [place] Interpretation and review of laboratory results Abnormal [place] Glucose [Mass/Vol] 144 mg/dL High 75 - 110 mg/dL [place] Interpretation and review of laboratory results Abnormal [place] Glucose [Mass/Vol] 325 mg/dL High 75 - 110 mg/dL [place] Interpretation and review of laboratory results Abnormal [place] Glucose [Mass/Vol] 138 mg/dL High 75 - 110 mg/dL [place] Interpretation and review of laboratory results Abnormal [place] Glucose [Mass/Vol] 63 mg/dL Low 75 - 110 mg/dL [place] Interpretation and review of laboratory results Abnormal [place] Brain Natri. Peptideon 03-07 Natriuretic peptide B (Bld) [Mass/Vol] Pro-BNP Reference Range: Normal [facility] Comment on above: Result Comment: Rule Out: <300 Miranda Zone: Age <50 300-450 Age 50-75 300-900 Age >75 300-1800 Usually represents mild to moderate HF but other cardiopulmonary causes cannot be ruled out. Rule In: Age <50 >450 Age 50-75 >900 Age >75 >1800 Performed By: #### B MP #### [facility] [address] [facility] [place], [place] [id number] [employer] Supervisor: Con Oseguera MD Natriuretic peptide B (Bld) [Mass/Vol] 946 pg/mL High <300 [facility] Comment on above: Result Comment: Pro- BNP results cannot be compared to BNP results. Performed By: #### B MP #### [facility] [address] [place] [address] [employer] Supervisor: Con Oseguera MD Brain Natriuretic Peptideon 03-07-2019 Interpretation and review of laboratory results Abnormal [place] Natriuretic peptide B (Bld) [Mass/Vol] Pro-BNP Reference Range: [place] Comment on above: Rule Out: <300 Miranda Zone: Age <50 300-450 Age 50-75 300-900 Age >75 300-1800 Usually represents mild to moderate HF but other cardiopulmonary causes cannot be ruled out. Rule In: Age <50 >450 Age 50-75 >900 Age >75 >1800 Natriuretic peptide B (Bld) [Mass/Vol] 946 pg/mL High <300 [place] Comment on above: Pro-BNP results darrius ot be compared to BNP results. CBC Auto Differentialon 02-25 Basophils (Bld) [#/Vol] 0.10 10*3/uL [place] Basophils/100 WBC (Bld) 1 % 0 - 2 % [place] Differential Type NOT REPORTED [place] Eosinophils (Bld) [#/Vol] 0.10 10*3/uL [place] Eosinophils/100 WBC (Bld) 1 % 0 - 4 % [place] Erythrocyte distribution width (RBC) [Ratio] 29.0 % High 11.5 - 14.9 % [place] Hematocrit (Bld) [Volume fraction] 33.5 % Low 41 - 53 % [place] Hemoglobin (Bld) [Mass/Vol] 10.5 g/dL Low 13.5 - 17.5 g/dL [place] Interpretation and review of laboratory results Abnormal [place] Lymphocytes (Bld) [#/Vol] 0.72 10*3/uL [place] Lymphocytes/100 WBC (Bld) 7 % Low 24 - 44 % [place] MCH (RBC) [Entitic mass] 22.4 pg Low 26 - 34 pg [place] MCHC (RBC) [Mass/Vol] 31.2 g/dL 31 - 37 g/dL [place] MCV (RBC) [Entitic vol] 71.7 fL Low 80 - 100 fL [place] Monocytes (Bld) [#/Vol] 0.72 10*3/uL [place] Monocytes/100 WBC (Bld) 7 % 1 - 7 % [place] Morphology Theo (Bld) [Interp] ANISOCYTOSIS PRESENT [place] Morphology Theo (Bld) [Interp] HYPOCHROMIA PRESENT [place], [place] Morphology Theo (Bld) [Interp] MICROCYTOSIS PRESENT [place] Platelet mean volume (Bld) [Entitic vol] 8.6 fL 6 - 12 fL [place] Platelets (Bld) [#/Vol] NOT REPORTED [place] Platelets (Bld) [#/Vol] 273 10*3/uL [place] RBC (Bld) [#/Vol] 4.68 10*6/uL 4.5 - 5.9 m/uL [place] RBC morphology finding Nom (Bld) NOT REPORTED [place] Segmented neutrophils/100 WBC (Bld) 84 % High 36 - 66 % [place] Segs Absolute 8.66 [place] WBC (Bld) [#/Vol] NOT REPORTED per 100 WBC [place] WBC (Bld) [#/Vol] 10.3 10*3/uL [place] WBC Morphology NOT REPORTED [place] CBC with Diffon 03-07-2019 Abs. Basophil 0.10 k/uL Normal 0.0-0.2 [facility] Comment on above: Performed By: #### B MP #### [facility] [address] [place] [address] [employer] Supervisor: Con Oseguera MD Abs.Neutrophil (Seg) 8.66 k/uL Normal 1.3-9.1 [facility] Comment on above: Performed By: #### B MP #### [facility] [address] [place] [address] [employer] Supervisor: Con Oseguera MD Basophils/100 WBC (Bld) 1 % Normal 0-2 [facility] Comment on above: Performed By: #### B MP #### [facility] [address] [place] [address] [employer] Supervisor: Con Oseguera MD Eosinophils (Bld) [#/Vol] 0.10 10*3/uL Normal 0.0-0.4 [facility] Comment on above: Performed By: #### B MP #### [facility] [address] [place] [address] [employer] Supervisor: Con Oseguera MD Eosinophils/100 WBC (Bld) 1 % Normal 0-4 [facility] Comment on above: Performed By: #### B MP #### [facility] [address] [place] [address] [employer] Supervisor: Con Oseguera MD Lymphocytes (Bld) [#/Vol] 0.72 10*3/uL Low 1.0-4.8 [facility] Comment on above: Performed By: #### B MP #### [facility] [address] [place] [address] [employer] Supervisor: Con Oseguera MD Lymphocytes/100 WBC (Bld) 7 % Low 24-44 [facility] Comment on above: Performed By: #### B MP #### [facility] [address] [place] [address] [employer] Supervisor: Con Oseguera MD Monocytes (Bld) [#/Vol] 0.72 10*3/uL Normal 0.1-1.3 [facility] Comment on above: Performed By: #### B MP #### [facility] [address] [place] [address] [employer] Supervisor: Con Oseguera MD Monocytes/100 WBC (Bld) 7 % Normal 1-7 [facility] Comment on above: Performed By: #### B MP #### [facility] [address] [place] [address] [employer] Supervisor: Con Oseguera MD Morphology Theo (Bld) [Interp] ANISOCYTOSIS PRESENT Normal [facility] Comment on above: Result Comment: MICR OCYTOSIS PRESENT HYPOCHROMIA PRESENT Performed By: #### B MP #### [facility] [place] [address] [employer] Supervisor: Con Oseguera MD Neutrophil (Seg) 84 % High 36-66 [facility] Comment on above: Performed By: #### B MP #### [facility] [place] [address] [employer] Supervisor: Con Oseguera MD Erythrocyte distribution width (RBC) [Ratio] 29.0 % High 11.5-14.9 [facility] Comment on above: Performed By: #### B MP #### [facility] [address] [place] [address] [employer] Supervisor: Con Oseguera MD Hematocrit (Bld) [Volume fraction] 33.5 % Low 41-53 [facility] Comment on above: Performed By: #### B MP #### [facility] [address] [place] [address] [employer] Supervisor: Con Oseguera MD Hemoglobin (Bld) [Mass/Vol] 10.5 g/dL Low 13.5-17.5 [facility] Comment on above: Performed By: #### B MP #### [facility] [address] [place] [address] [employer] Supervisor: Con Oseguera MD MCH (RBC) [Entitic mass] 22.4 pg Low 26-34 [facility] Comment on above: Performed By: #### B MP #### [facility] [address] [place] [address] [employer] Supervisor: Con Oseguera MD MCHC (RBC) [Mass/Vol] 31.2 g/dL Normal 31-37 [facility] Comment on above: Performed By: #### B MP #### [facility] [address] [facility] [place] [address] [employer] Supervisor: Con Oseguera MD MCV (RBC) [Entitic vol] 71.7 fL Low 80-100 [facility] Comment on above: Performed By: #### B MP #### [facility] [place] [address] [employer] Supervisor: Con Oseguera MD Platelet mean volume (Bld) [Entitic vol] 8.6 fL Normal 6.0-12.0 [facility] Comment on above: Performed By: #### B MP #### [facility] [address] [place] [address]. [place] [address] [employer] Supervisor: Con Oseguera MD Platelets (Bld) [#/Vol] 273 10*3/uL Normal 150-450 [facility] Comment on above: Performed By: #### B MP #### [facility] [address] [place] [address]. [place] [address] [employer] Supervisor: Con Oseguera MD RBC (Bld) [#/Vol] 4.68 10*6/uL Normal 4.5-5.9 [facility] Comment on above: Performed By: #### B MP #### [facility] [address] [place] [address]. [place] [address] [employer] Supervisor: Con Oseguera MD WBC (Bld) [#/Vol] 10.3 10*3/uL Normal 3.5-11.0 [facility] Comment on above: Performed By: #### B MP #### [facility] [address] [place] [address] [employer] Supervisor: Con Oseguera MD Abs.Imm.Granulocyte NOT REPORTED Normal 0.00-0.30 [facility] Comment on above: Performed By: #### B MP #### [facility] [address] [place] [address] [employer] Supervisor: Con Oseguera MD Auto Diff Performed NOT REPORTED Normal [facility] Comment on above: Performed By: #### B MP #### [facility] [address] [place] [address] [employer] Supervisor: Con Oseguera MD Immature granulocytes (Bld) [#/Vol] NOT REPORTED Normal 0 [facility] Comment on above: Performed By: #### B MP #### [facility] [address] [place] [address] [employer] Supervisor: Con Oseguera MD NRBC Automated NOT REPORTED Normal [facility] Comment on above: Performed By: #### B MP #### [facility] [place] [address] [employer] Supervisor: Con Oseguera MD Platelets (Bld) [#/Vol] NOT REPORTED Normal [facility] Comment on above: Performed By: #### B MP #### [facility] [address] [facility] [address] [employer] Supervisor: Con Oseguera MD RBC morphology finding Nom (Bld) NOT REPORTED Normal [facility] Comment on above: Performed By: #### B MP #### [facility] [address] [facility] [place] [address] [employer] Supervisor: Con Oseguera MD WBC Morphology NOT REPORTED Normal [facility] Comment on above: Performed By: #### B MP #### [facility] [facility] [address] [employer] Supervisor: Con Oseguera MD CT ABDOMEN PELVIS WO [...] Del Angel MD 03/07/19 Final result Normal [facility] EXAMINATION: CT OF THE ABDOMEN AND [...] Degenerative changes of the spine are present. [facility], [place] Bibasilar consolidative changes and right middle lobe pulmonary infiltrates, consistent with pneumonia in the appropriate clinical setting. Mild left pleural effusion. Diverticulosis coli, without evidence of diverticulitis or colitis. Prostatomegaly. [place], [place] Stan, [facility] Incoming Radiant Results From [employer] - 03/07/2019 7:00 PM EDT EXAMINATION: CT [...] without evidence of diverticulitis or colitis. Prostatomegaly. [place] Comp Metabolic Profon 2018 (cont.) Normal [facility] Comment on above: Result Comment: Aver age GFR for 70 or more years old: 75 mL/min/1.73sq m Chronic Kidney Disease: <60 mL/min/1.73sq m Kidney failure: <15 mL/min/1.73sq m eGFR calculated using average adult body mass. Additional eGFR calculator available at: http://www.[employer]/multiple_crcl_2012.htm Performed By: #### B MP #### [facility] [address] [facility] [place] [address] [employer] Supervisor: Con Oseguera MD Albumin [Mass/Vol] 3.8 g/dL Normal 3.5-5.2 [facility] Comment on above: Performed By: #### B MP #### [facility] [place] [address] [employer] Supervisor: Con Oseguera MD Alkaline Phos 166 U/L High 40-129 [facility] Comment on above: Performed By: #### B MP #### [facility] [address] [place] [address]. [place] [address] [employer] Supervisor: Con Oseguera MD ALT [Catalytic activity/Vol] 28 U/L Normal 5-41 [facility] Comment on above: Performed By: #### B MP #### [facility] [address] [place] [address] [employer] Supervisor: Con Oseguera MD Anion gap [Moles/Vol] 12 mmol/L Normal 9-17 [facility] Comment on above: Performed By: #### B MP #### [facility] [address] [place] [address] [employer] Supervisor: Con Oseguera MD AST [Catalytic activity/Vol] 26 U/L Normal <40 [facility] Comment on above: Performed By: #### B MP #### [facility] [place] [address] [employer] Supervisor: Con Oseguera MD Bilirubin Ql (U) 0.20 mg/dL Low 0.3-1.2 [facility] Comment on above: Performed By: #### B MP #### [facility] [address] [place] [address] [employer] Supervisor: Con Oseguera MD Calcium [Mass/Vol] 9.5 mg/dL Normal 8.6-10.4 [facility] Comment on above: Performed By: #### B MP #### [facility] [address] [place] [address] [employer] Supervisor: Con Oseguera MD Chloride [Moles/Vol] 98 mmol/L Normal 98-107 [facility] Comment on above: Performed By: #### B MP #### [facility] [address] [place] [address] [employer] Supervisor: Con Oseguera MD CO2 [Moles/Vol] 28 mmol/L Normal 20-31 [facility] Comment on above: Performed By: #### B MP #### [facility] [address] [place] [address] [employer] Supervisor: Con Oseguera MD Creatinine [Mass/Vol] 1.70 mg/dL High 0.70-1.20 [facility] Comment on above: Performed By: #### B MP #### [facility] [address] [place] [address] [employer] Supervisor: Con Oseguera MD GFR, Amer 47 mL/min Low >60 [facility] Comment on above: Performed By: #### B MP #### [facility] [address] [place] [address] [employer] Supervisor: Con Oseguera MD GFR,non Amer 39 mL/min Low >60 [facility] Comment on above: Performed By: #### B MP #### [facility] [address] [place] [address] [employer] Supervisor: Con Oseguera MD Glucose [Mass/Vol] 63 mg/dL Low 70-99 [facility] Comment on above: Performed By: #### B MP #### [facility] [address] [place] [address] [employer] Supervisor: Con Oseguera MD Potassium [Moles/Vol] 4.6 mmol/L Normal 3.7-5.3 [facility] Comment on above: Performed By: #### B MP #### [facility] [address] [place] [address] [employer] Supervisor: Con Oseguera MD Protein [Mass/Vol] 6.8 g/dL Normal 6.4-8.3 [facility] Comment on above: Performed By: #### B MP #### [facility] [address] [place] [address] [employer] Supervisor: Con Oseguera MD Sodium [Moles/Vol] 138 mmol/L Normal 135-144 [facility] Comment on above: Performed By: #### B MP #### [facility] [address] [place] [address] [employer] Supervisor: Con Oseguera MD Urea nitrogen [Mass/Vol] 30 mg/dL High 8-23 [facility] Comment on above: Performed By: #### B MP #### [facility] [address] [place] [address] [employer] Supervisor: Con Oseguera MD Albumin/Globulin [Mass ratio] NOT REPORTED Normal 1.0-2.5 [facility] Comment on above: Performed By: #### B MP #### [facility] [address] [place] [address] [employer] Supervisor: Con Oseguera MD BUN/CRE Ratio NOT REPORTED Normal 9-20 [facility] Comment on above: Performed By: #### B MP #### [facility] [address] [place] [address] [employer] Supervisor: Con Oseguera MD Staging: NOT REPORTED Normal [facility] Comment on above: Performed By: #### B MP #### [facility] [address] [place] [address] [employer] Supervisor: Con Oseguera MD Comprehensive Metabolic Pane blanca 03-07-2019 Albumin [Mass/Vol] 3.8 g/dL 3.5 - 5.2 g/dL [place] Albumin/Globulin [Mass ratio] NOT REPORTED [place] ALP [Catalytic activity/Vol] 166 U/L High 40 - 129 U/L [place] ALT [Catalytic activity/Vol] 28 U/L 5 - 41 U/L [place] Anion gap [Moles/Vol] 12 mmol/L 9 - 17 mmol/L [place] AST [Catalytic activity/Vol] 26 U/L <40 [place] Bilirubin Ql (U) 0.20 mg/dL Low 0.3 - 1.2 mg/dL [place] Bun/Cre Ratio NOT REPORTED [place], [place] Calcium [Mass/Vol] 9.5 mg/dL 8.6 - 10. 4 mg/dL [place] Chloride [Moles/Vol] 98 mmol/L 98 - 10 7 mmol/L [place] CO2 [Moles/Vol] 28 mmol/L 20 - 31 mmol/L [place] Creatinine [Mass/Vol] 1.7 mg/dL High 0.7 - 1.2 mg/dL [place] GFR 47 mL/min Low >60 [place] GFR Non- 39 mL/min Low >60 [place] GFR/1.73 sq M predicted among non-blacks MDRD (S/P/Bld) [Vol rate/Area] NOT REPORTED [place] GFR/1.73 sq M predicted among non-blacks MDRD (S/P/Bld) [Vol rate/Area] [place] Comment on above: Average GFR for 70 o r more years old: 75 mL/min/1.73sq m Chronic Kidney Disease: <60 mL/min/1.73sq m Kidney failure: <15 mL/min/1.73sq m eGFR calculated using average adult body mass. Additional eGFR calculator available at: http://www.[employer]/multiple_crcl_2012.htm Glucose [Mass/Vol] 63 mg/dL Low 70 - 99 mg/dL [place] Potassium [Moles/Vol] 4.6 mmol/L 3.7 - 5.3 mmol/L [place] Protein [Mass/Vol] 6.8 g/dL 6.4 - 8.3 g/dL [place] Sodium [Moles/Vol] 138 mmol/L 135 - 144 mmol/L [place] Urea nitrogen [Mass/Vol] 30 mg/dL High 8 - 23 mg/dL [place] Lipaseon 03-07-2019 Lipase [Catalytic activity/Vol] 83 U/L High 13-60 [facility] Comment on above: Performed By: #### B MP #### [facility] [address] [place] [address] [employer] Supervisor: Con Oseguera MD Lipase [Catalytic activity/Vol] 83 U/L High 13 - 60 U/L [place] Microscopic Urinalysison Amorphous, UA NOT REPORTED None [place], [place] Bacteria, UA MODERATE Abnormal None [place] Casts UA NOT REPORTED /LPF [place] Crystals UA NOT REPORTED None /HPF [place] Epithelial Cells UA 0 TO 2 /HPF [place] Interpretation and review of laboratory results Abnormal [place] Mucus, UA NOT REPORTED None [place], [place] Other Observations UA NOT REPORTED NOT REQ. [place] RBC (U) [#/Vol] 10 TO 20 /HPF [place] Renal Epithelial, Urine NOT REPORTED 0 /HPF [place] Trichomonas, UA NOT REPORTED None [place] WBC, UA 20 TO 50 /HPF [place] Yeast, UA NOT REPORTED None [place], [place] - [place] Otheron 03-07-2019 Immature granulocytes (Bld) [#/Vol] NOT REPORTED [place] Interpretation and review of laboratory results Abnormal [place] POC Glucose Fingerstickon Glucose [Mass/Vol] 167 mg/dL High 75 - 110 mg/dL [place] Interpretation and review of laboratory results Abnormal [place] Glucose [Mass/Vol] 124 mg/dL High 75 - 110 mg/dL [place] Interpretation and review of laboratory results Abnormal [place] POCT Glucoseon 03-07-2019 Glucose [Mass/Vol] 124 mg/dL [place] Interpretation and review of laboratory results Normal [place], [place] QC OK? y [place] Troponinon 03-07-2019 Troponin I.cardiac [Mass/Vol] 27 ng/L High 0-22 [facility] Comment on above: Result Comment: High Sensitivity Troponin values cannot be compared with other Troponin methodologies. Patients with high levels of Biotin oral intake (i.e >5mg/day) may have falsely decreased Troponin levels. Samples collected within 8 hours of biotin intake may require additional information for diagnosis. Performed By: #### B MP #### [facility] [address] [place] [address] [employer] Supervisor: Con Oseguera MD Troponin I.cardiac [Mass/Vol] 29 ng/L High 0-22 [facility] Comment on above: Result Comment: High Sensitivity Troponin values cannot be compared with other Troponin methodologies. Patients with high levels of Biotin oral intake (i.e >5mg/day) may have falsely decreased Troponin levels. Samples collected within 8 hours of biotin intake may require additional information for diagnosis. Performed By: #### B MP #### [facility] [address] [facility] [place], [place] [id number] [employer] Supervisor: Con Oseguera MD Interpretation and review of laboratory results Abnormal [place] Troponin I.cardiac [Mass/Vol] NOT REPORTED [place] Troponin T.cardiac [Mass/Vol] NOT REPORTED <0.03 ng/mL [place] Troponin, High Sensitivity 27 ng/L High 0 - 22 ng/L [place] Comment on above: High Sensitivity Troponin values cannot be compared with other Troponin methodologies. Patients with high levels of Biotin oral intake (i.e >5mg/day) may have falsely decreased Troponin levels. Samples collected within 8 hours of biotin intake may require additional information for diagnosis. Troponin I.cardiac [Mass/Vol] NOT REPORTED Normal [facility] Comment on above: Performed By: #### B MP #### [facility] [address] [place] [address] [employer] Supervisor: Con Oseguera MD Troponin I.cardiac [Mass/Vol] NOT REPORTED Normal <0.03 [place] Comment on above: Performed By: #### B MP #### [facility] [address] [facility] [place] [address] [employer] Supervisor: Con Oseguera MD Interpretation and review of laboratory results Abnormal [place] Troponin T.cardiac [Mass/Vol] NOT REPORTED <0.03 ng/mL [place] Troponin, High Sensitivity 29 ng/L High 0 - 22 ng/L [place] Comment on above: High Sensitivity Troponin values cannot be compared with other Troponin methodologies. Patients with high levels of Biotin oral intake (i.e >5mg/day) may have falsely decreased Troponin levels. Samples collected within 8 hours of biotin intake may require additional information for diagnosis. UA w/Reflex Cultureon 2018 Acetoacetic Acid,Ur Negative Normal NEG [facility] Comment on above: Performed By: #### B MP #### [facility] [address] [facility] [place] [address] [employer] Supervisor: Con Oseguera MD Bilirubin, SemiQt,Ur Negative Normal NEG [facility] Comment on above: Performed By: #### B MP #### [facility] [address] [facility] [place] [address] [employer] Supervisor: Con Oseguera MD Color (U) YELLOW Normal YEL [facility] Comment on above: Performed By: #### B MP #### [facility] [address] [facility] [place] [address] [employer] Supervisor: Con Oseguera MD Glucose Ql (U) Negative Normal NEG [facility] Comment on above: Performed By: #### B MP #### [facility] [address] [place] [address] [employer] Supervisor: Con Oseguera MD Hemoglobin, Ur MOD Abnormal NEG [facility] Comment on above: Performed By: #### B MP #### [facility] [address] [place] [address] [employer] Supervisor: Con Oseguera MD Leukocyte esterase Test strip Ql (U) LARGE Abnormal NEG [facility] Comment on above: Performed By: #### B MP #### [facility] [address] [place] [address] [employer] Supervisor: Con Oseguera MD Nitrite,Ur Negative Normal NEG [facility] Comment on above: Performed By: #### B MP #### [facility] [address] [facility] [address] [employer] Supervisor: Con Oseguera MD pH (U) 6.5 [pH] Normal 5.0-8.0 [facility] Comment on above: Performed By: #### B MP #### [facility] [address] [facility] [place] [address] [employer] Supervisor: Con Oseguera MD Protein Ql (U) 2+ Abnormal NEG [facility] Comment on above: Performed By: #### B MP #### [facility] [address] [place] [address] [employer] Supervisor: Con Oseguera MD Specific gravity (U) [Rel density] 1.017 Normal 1.000-1.030 [facility] Comment on above: Performed By: #### B MP #### [facility] [address] [place] [address] [employer] Supervisor: Con sOeguera MD Turbidity CLOUDY Abnormal CLEAR [facility] Comment on above: Performed By: #### B MP #### [facility] [address] [place] [address] [employer] Supervisor: Con Oseguera MD Urobilinogen,Ur Normal Normal NORM [facility] Comment on above: Performed By: #### B MP #### [facility] [address] [facility] [place] [address] [employer] Supervisor: Con Oseguera MD Comment NOT REPORTED Normal [facility] Comment on above: Performed By: #### B MP #### [facility] [address] [facility] [place] [address] [employer] Supervisor: Con Oseguera MD Urinalysis Reflex to Culture on 03-07-2019 Bilirubin Urine Negative NEGATIVE [facility] [place] Color, UA YELLOW YELLOW [facility] [place] Glucose, Ur Negative NEGATIVE [facility] [place] Interpretation and review of laboratory results Abnormal [facility]- [place], [place] Ketones Ql (U) Negative NEGATIVE [facility] Leukocyte esterase Test strip Ql (U) LARGE Abnormal NEGATIVE [facility] Nitrite, Urine Negative NEGATIVE [facility] pH, UA 6.5 [facility] Protein (U) [Mass/Vol] 2+ Abnormal NEGATIVE [facility]- [place] Specific [place], UA 1.017 [facility] Turbidity UA CLOUDY Abnormal CLEAR [facility] [place] Urinalysis Comments NOT REPORTED [facility] Urine Hgb MOD Abnormal NEGATIVE [facility] Urobilinogen, Urine Normal Normal [facility]- [place], [place] Urinalysis,Microon 9 ----- Normal [facility] Comment on above: Performed By: #### B MP #### [facility] [address] [place] [address] [employer] Supervisor: Con Oseguera MD Bacteria LM.HPF (Urine sed) [#/Area] MODERATE Abnormal NONE [facility] Comment on above: Performed By: #### B MP #### [facility] [address] [place] [address] [employer] Supervisor: Con Oseguera MD Epithelial cells LM.HPF (Urine sed) [#/Area] 0 TO 2 Normal [facility] Comment on above: Performed By: #### B MP #### [facility] [address] [place] [address] [employer] Supervisor: Con Oseguera MD RBC (U) [#/Vol] 10 TO 20 Normal [facility] Comment on above: Performed By: #### B MP #### [facility] [place] [place] [address] [employer] Supervisor: Con Oseguera MD WBC (U) [#/Vol] 20 TO 50 Normal [facility] Comment on above: Performed By: #### B MP #### [facility] [address] [place] [address] [employer] Supervisor: Con Oseguera MD Amorphous sediment LM Ql (Urine sed) NOT REPORTED Normal [facility] Comment on above: Performed By: #### B MP #### [facility] [place] [address] [employer] Supervisor: Con Oseguera MD Casts LM.LPF (Urine sed) [#/Area] NOT REPORTED Normal [facility] Comment on above: Performed By: #### B MP #### [facility] [facility] [place] [address] [employer] Supervisor: Con Oseguera MD Crystals LM Nom (Urine sed) NOT REPORTED Normal [facility] Comment on above: Performed By: #### B MP #### [facility] [place] [address] [employer] Supervisor: Con Oseguera MD Epithelial, Renal NOT REPORTED Normal 0 [facility] Comment on above: Performed By: #### B MP #### [facility] [place] [address] [employer] Supervisor: Con Oseguera MD Mucus Strands NOT REPORTED Normal NONE [facility] Comment on above: Performed By: #### B MP #### [facility] [address] [place] [address] [employer] Supervisor: Con Oseguera MD Other Observations NOT REPORTED Normal NREQ [facility] Comment on above: Performed By: #### B MP #### [facility] [address] [facility] [place] [address] [employer] Supervisor: Con Oseguera MD Trichomonas NOT REPORTED Normal NONE [facility] Comment on above: Performed By: #### B MP #### [facility] [address] [place] [address] [employer] Supervisor: Con Oseguera MD Yeast LM Ql (Urine sed) NOT REPORTED Normal [facility] Comment on above: Performed By: #### B MP #### [facility] [address] [place] [place] [address] [employer] Supervisor: Con Oseguera MD XR CHEST (2 VW)on [...] Yoni Faye MD 03/07/19 Final result Normal [facility] XR CHEST STANDARD (2 VW)on 0 03-07-2019 [facility], [facility] Incoming Radiant Results From [employer] - 03/07/2019 5:45 PM EDT EXAMINATION: TWO [...] bilaterally. Pneumonia is favored over atypical edema [place], [place] Multifocal airspace disease bilaterally. Pneumonia is favored over atypical edema [place] EXAMINATION: TWO XRAY VIEWS OF THE [...] is noted. Small effusions are suggested bilaterally [place] Magnesiumon 12-13-2018 Magnesium [Mass/Vol] 2.1 mg/dL Normal 1.6-2.6 [facility] Comment on above: Performed By: #### B MP #### [facility] [address] [facility] [place], [place] [phone] [employer] Supervisor: Con Oseguera MD Basic Metabolic Profon 12-11 (cont.) Normal [facility] Comment on above: Result Comment: Aver age GFR for 70 or more years old: 75 mL/min/1.73sq m Chronic Kidney Disease: <60 mL/min/1.73sq m Kidney failure: <15 mL/min/1.73sq m eGFR calculated using average adult body mass. Additional eGFR calculator available at: http://www.[employer]/multiple_crcl_2012.htm Performed By: #### B MP #### [facility] [address] [place] [place] [address] [employer] Supervisor: Con Oseguera MD Anion gap [Moles/Vol] 13 mmol/L Normal 9-17 [facility] Comment on above: Performed By: #### B MP #### [facility] [address] [place] [address] [employer] Supervisor: Con Oseguera MD Calcium [Mass/Vol] 8.6 mg/dL Normal 8.6-10.4 [facility] Comment on above: Performed By: #### B MP #### [facility] [address] [place] [address] [employer] Supervisor: Con Oseguera MD Chloride [Moles/Vol] 100 mmol/L Normal 98-107 [facility] Comment on above: Performed By: #### B MP #### [facility] [place] [address] [employer] Supervisor: Con Oseguera MD CO2 [Moles/Vol] 22 mmol/L Normal 20-31 [facility] Comment on above: Performed By: #### B MP #### [facility] [place] [address] [employer] Supervisor: Con Oseguera MD Creatinine [Mass/Vol] 1.02 mg/dL Normal 0.70-1.20 [facility] Comment on above: Performed By: #### B MP #### [facility] [address] [place] [address] [employer] Supervisor: Con Oseguera MD GFR, Amer >60 Normal >60 [facility] Comment on above: Performed By: #### B MP #### [facility] [address] [place] [address] [employer] Supervisor: Con Oseguera MD GFR,non Amer >60 Normal >60 [facility] Comment on above: Performed By: #### B MP #### [facility] [address] [place] [address] [employer] Supervisor: Con Oseguera MD Glucose [Mass/Vol] 151 mg/dL High 70-99 [facility] Comment on above: Performed By: #### B MP #### [facility] [address] [place] [address] [employer] Supervisor: Con Oseguera MD Potassium [Moles/Vol] 4.0 mmol/L Normal 3.7-5.3 [facility] Comment on above: Performed By: #### B MP #### [facility] [address] [place] [address] [employer] Supervisor: Con Oseguera MD Sodium [Moles/Vol] 135 mmol/L Normal 135-144 [facility] Comment on above: Performed By: #### B MP #### [facility] [address] [place] [address] [employer] Supervisor: Cno Oseguera MD Urea nitrogen [Mass/Vol] 22 mg/dL Normal 8-23 [facility] Comment on above: Performed By: #### B MP #### [facility] [address] [place] [address] [employer] Supervisor: Con Oseguera MD BUN/CRE Ratio NOT REPORTED Normal 9-20 [facility] Comment on above: Performed By: #### B MP #### [facility] [address] [place] [address] [employer] Supervisor: Con Oseguera MD Staging: NOT REPORTED Normal [facility] Comment on above: Performed By: #### B MP #### [facility] [address] [place] [address] [employer] Supervisor: Con Oseguera MD CBC with Diffon 12-11-2018 Abs. Basophil 0.00 k/uL Normal 0.0-0.2 [facility] Comment on above: Performed By: #### B MP #### [facility] [address] [place] [address] [employer] Supervisor: Con Oseguera MD Abs.Neutrophil (Seg) 9.27 k/uL High 1.3-9.1 [facility] Comment on above: Performed By: #### B MP #### [facility] [address] [place] [address] [employer] Supervisor: Con Oseguera MD Basophils/100 WBC (Bld) 0 % Normal 0-2 [facility] Comment on above: Performed By: #### B MP #### [facility] [address] [place] [address] [employer] Supervisor: Con Oseguera MD Eosinophils (Bld) [#/Vol] 0.12 10*3/uL Normal 0.0-0.4 [facility] Comment on above: Performed By: #### B MP #### [facility] [address] [place] [place] [address] [employer] Supervisor: Con Oseguera MD Eosinophils/100 WBC (Bld) 1 % Normal 0-4 [facility] Comment on above: Performed By: #### B MP #### [facility] [facility] [place] [address] [employer] Supervisor: Con Oseguera MD Lymphocytes (Bld) [#/Vol] 1.22 10*3/uL Normal 1.0-4.8 [facility] Comment on above: Performed By: #### B MP #### [facility] [address] [place] [address] [employer] Supervisor: Con Oseguera MD Lymphocytes/100 WBC (Bld) 10 % Low 24-44 [facility] Comment on above: Performed By: #### B MP #### [facility] [address] [place] [place] [address] [employer] Supervisor: Con Oseguera MD Monocytes (Bld) [#/Vol] 1.59 10*3/uL High 0.1-1.3 [facility] Comment on above: Performed By: #### B MP #### [facility] [place] [place] [address] [employer] Supervisor: Con Oseguera MD Monocytes/100 WBC (Bld) 13 % High 1-7 [facility] Comment on above: Performed By: #### B MP #### [facility] [place] [address] [employer] Supervisor: Con Oseguera MD Morphology Theo (Bld) [Interp] ANISOCYTOSIS PRESENT Normal [facility] Comment on above: Result Comment: MICR OCYTOSIS PRESENT HYPOCHROMIA PRESENT 1+ POLYCHROMASIA 1+ ECHINOCYTES 1+ ELLIPTOCYTES Performed By: #### B MP #### [facility] [facility] [place] [address] [employer] Supervisor: Con Oseguera MD Neutrophil (Seg) 76 % High 36-66 [facility] Comment on above: Performed By: #### B MP #### [facility] [place] [address] [employer] Supervisor: Con Oseguera MD Erythrocyte distribution width (RBC) [Ratio] 18.7 % High 11.5-14.9 [facility] Comment on above: Performed By: #### B MP #### [facility] [place] [address] [employer] Supervisor: Con Oseguera MD Hematocrit (Bld) [Volume fraction] 26.2 % Low 41-53 [facility] Comment on above: Performed By: #### B MP #### [facility] [address] [place] [address] [employer] Supervisor: Con Oseguera MD Hemoglobin (Bld) [Mass/Vol] 8.1 g/dL Low 13.5-17.5 [facility] Comment on above: Performed By: #### B MP #### [facility] [facility] [place] [address] [employer] Supervisor: Con Oseguera MD MCH (RBC) [Entitic mass] 20.5 pg Low 26-34 [facility] Comment on above: Performed By: #### B MP #### [facility] [address] [place] [address]. [place] [address] [employer] Supervisor: Con Oseguera MD MCHC (RBC) [Mass/Vol] 30.9 g/dL Low 31-37 [facility] Comment on above: Performed By: #### B MP #### [facility] [place] [place] [address] [employer] Supervisor: Con Oseguera MD MCV (RBC) [Entitic vol] 66.4 fL Low 80-100 [facility] Comment on above: Performed By: #### B MP #### [facility] [address] [place] [address]. [place] [address] [employer] Supervisor: Con Oseguera MD Platelet mean volume (Bld) [Entitic vol] 9.3 fL Normal 6.0-12.0 [facility] Comment on above: Performed By: #### B MP #### [facility] [place] [place] [address] [employer] Supervisor: Con Oseguera MD Platelets (Bld) [#/Vol] 234 10*3/uL Normal 150-450 [facility] Comment on above: Performed By: #### B MP #### [facility] [place] [address] [employer] Supervisor: Con Oseguera MD RBC (Bld) [#/Vol] 3.94 10*6/uL Low 4.5-5.9 [facility] Comment on above: Performed By: #### B MP #### [facility] [address] [place] [address] [employer] Supervisor: Con Oseguera MD WBC (Bld) [#/Vol] 12.2 10*3/uL High 3.5-11.0 [facility] Comment on above: Performed By: #### B MP #### [facility] [facility] [place] [address] [employer] Supervisor: Con Oseguera MD Abs.Imm.Granulocyte NOT REPORTED Normal 0.00-0.30 [facility] Comment on above: Performed By: #### B MP #### [facility] [place] [place] [address] [employer] Supervisor: Con Oseguera MD Auto Diff Performed NOT REPORTED Normal [facility] Comment on above: Performed By: #### B MP #### [facility] [place] [place] [address] [employer] Supervisor: Con Oseguera MD Immature granulocytes (Bld) [#/Vol] NOT REPORTED Normal 0 [facility] Comment on above: Performed By: #### B MP #### [facility] [facility] [place] [address] [employer] Supervisor: Con Oseguera MD NRBC Automated NOT REPORTED Normal [facility] Comment on above: Performed By: #### B MP #### [facility] [place] [address] [employer] Supervisor: Con Oseguera MD Platelets (Bld) [#/Vol] NOT REPORTED Normal [facility] Comment on above: Performed By: #### B MP #### [facility] [address] [facility] [place] [address] [employer] Supervisor: Con Oseguera MD RBC morphology finding Nom (Bld) NOT REPORTED Normal [facility] Comment on above: Performed By: #### B MP #### [facility] [address] [facility] [place] [address] [employer] Supervisor: Con Oseguera MD WBC Morphology NOT REPORTED Normal [facility] Comment on above: Performed By: #### B MP #### [facility] [address] [facility] [place] [address] [employer] Supervisor: Con Oseguera MD Brain Natri. Peptideon 12-10 Natriuretic peptide B (Bld) [Mass/Vol] 1543 pg/mL High <300 [facility] Comment on above: Result Comment: Pro- BNP results cannot be compared to BNP results. Performed By: #### R EJEC, LIP, TROPI, CP, DIGC, BNP ####[facility] [id number] [place] [address] [facility] Director: Con Oseguera MD Natriuretic peptide B (Bld) [Mass/Vol] Pro-BNP Reference Range: Normal [facility] Comment on above: Result Comment: Rule Out: <300 Miranda Zone: Age <50 300-450 Age 50-75 300-900 Age >75 300-1800 Usually represents mild to moderate HF but other cardiopulmonary causes cannot be ruled out. Rule In: Age <50 >450 Age 50-75 >900 Age >75 >1800 Performed By: #### R EJEC, LIP, TROPI, CP, DIGC, BNP ####[facility] [id number] [place] [address] Lab Director: Con Oseguera MD CBC with Diffon 12-10-2018 Abs. Basophil 0.00 k/uL Normal 0.0-0.2 [facility] Comment on above: Performed By: #### P T, CDP ####[facility] [address] [place] [address] Lab Director: Con Oseguera MD Abs.Neutrophil (Seg) 10.73 k/uL High 1.3-9.1 [facility] Comment on above: Performed By: #### P T, CDP ####[facility] [id number], [place] [phone] Director: Con Oseguera MD Basophils/100 WBC (Bld) 0 % Normal 0-2 [facility] Comment on above: Performed By: #### P T, CDP ####[facility] [address], [place] [phone] Director: Con Oseguera MD Eosinophils (Bld) [#/Vol] 0.13 10*3/uL Normal 0.0-0.4 [facility] Comment on above: Performed By: #### P T, CDP ####[facility] [address], [place] [phone] Director: Con Oseguera MD Eosinophils/100 WBC (Bld) 1 % Normal 0-4 [facility] Comment on above: Performed By: #### P T, CDP ####[facility] [address], [place] [address])[phone] Director: Con Oseguera MD Lymphocytes (Bld) [#/Vol] 1.07 10*3/uL Normal 1.0-4.8 [facility] Comment on above: Performed By: #### P T, CDP ####[facility] [address], [place] [phone] Director: Con Oseguera MD Lymphocytes/100 WBC (Bld) 8 % Low 24-44 [facility] Comment on above: Performed By: #### P T, CDP ####[facility] [address] [place] [address] Lab Director: Con Oseguera MD Monocytes (Bld) [#/Vol] 1.47 10*3/uL High 0.1-1.3 [facility] Comment on above: Performed By: #### P T, CDP ####[facility] [address], [place] [phone] Director: Con Oseguera MD Monocytes/100 WBC (Bld) 11 % High 1-7 [facility] Comment on above: Performed By: #### P T, CDP ####[facility] [address] [place] [address] Lab Director: Con Oseguera MD Morphology Theo (Bld) [Interp] ANISOCYTOSIS PRESENT Normal [facility] Comment on above: Result Comment: HYPO CHROMIA PRESENT MICROCYTOSIS PRESENT 1+ ELLIPTOCYTES FEW ECHINOCYTES Performed By: #### P T, CDP ####[facility] [address], [place] [phone] Director: Con Oseguera MD Neutrophil (Seg) 80 % High 36-66 [facility] Comment on above: Performed By: #### P T, CDP ####[facility] [address] [place] [address] Lab Director: Con Oseguera MD Erythrocyte distribution width (RBC) [Ratio] 19.0 % High 11.5-14.9 [facility] Comment on above: Performed By: #### P T, CDP ####[facility] [address], [place] [phone] Director: Con Oseguera MD Hematocrit (Bld) [Volume fraction] 28.3 % Low 41-53 [facility] Comment on above: Performed By: #### P T, CDP ####[facility] [address] [place] [address] Lab Director: Con Oseguera MD Hemoglobin (Bld) [Mass/Vol] 8.7 g/dL Low 13.5-17.5 [facility] Comment on above: Performed By: #### P T, CDP ####[facility] [id number] [facility] [place] [address] Lab Director: Con Oseguera MD MCH (RBC) [Entitic mass] 20.6 pg Low 26-34 [facility] Comment on above: Performed By: #### P T, CDP ####[facility] [id number] [facility], [place] [phone] Director: Con Oseguera MD MCHC (RBC) [Mass/Vol] 30.7 g/dL Low 31-37 [facility] Comment on above: Performed By: #### P T, CDP ####[facility] [id number] [facility] [place] [address] Lab Director: Con Oseguera MD MCV (RBC) [Entitic vol] 67.1 fL Low 80-100 [facility] Comment on above: Performed By: #### P T, CDP ####[facility] [id number] [facility], [place] [phone] Director: Con Osgeuera MD Platelet mean volume (Bld) [Entitic vol] 9.0 fL Normal 6.0-12.0 [facility] Comment on above: Performed By: #### P T, CDP ####[facility] [id number] [facility], [place] [phone] Director: Con Oseguera MD Platelets (Bld) [#/Vol] 249 10*3/uL Normal 150-450 [facility] Comment on above: Performed By: #### P T, CDP ####[facility] [id number] [facility] [place] [address] Lab Director: Con Oseguera MD RBC (Bld) [#/Vol] 4.22 10*6/uL Low 4.5-5.9 [facility] Comment on above: Performed By: #### P T, CDP ####[facility] [address] [place] [address] Lab Director: Con Oseguera MD WBC (Bld) [#/Vol] 13.4 10*3/uL High 3.5-11.0 [facility] Comment on above: Performed By: #### P T, CDP ####[facility] [id number] [facility], [place] [phone] Director: Con Oseguera MD Abs.Imm.Granulocyte NOT REPORTED Normal 0.00-0.30 [facility] Comment on above: Performed By: #### P T, CDP ####[facility] [id number] [facility], [place] [phone] Director: Con Oseguera MD Auto Diff Performed NOT REPORTED Normal [facility] Comment on above: Performed By: #### P T, CDP ####[facility] [id number] [place] [address] Lab Director: Con Oseguera MD Immature granulocytes (Bld) [#/Vol] NOT REPORTED Normal 0 [facility] Comment on above: Performed By: #### P T, CDP ####[facility] [id number] [place] [address] Lab Director: Con Oseguera MD NRBC Automated NOT REPORTED Normal [facility] Comment on above: Performed By: #### P T, CDP ####[facility] [id number] [facility], [place] [phone] Director: Con Oseguera MD Platelets (Bld) [#/Vol] NOT REPORTED Normal [facility] Comment on above: Performed By: #### P T, CDP ####[facility] [address] [place] [address] Lab Director: Con Oseguera MD RBC morphology finding Nom (Bld) NOT REPORTED Normal [facility] Comment on above: Performed By: #### P T, CDP ####[facility] [address] [place] [address] Lab Director: Con Oseguera MD WBC Morphology NOT REPORTED Normal [facility] Comment on above: Performed By: #### P T, CDP ####[facility] [address] [place] [address] lab Director: Con Oseguera MD CT ABDOMEN [...] Sawyer Jr., DO 12/10/18 Final result Normal [facility] Comp Metabolic Profon 2018 (cont.) Normal [facility] Comment on above: Result Comment: Aver age GFR for 70 or more years old: 75 mL/min/1.73sq m Chronic Kidney Disease: <60 mL/min/1.73sq m Kidney failure: <15 mL/min/1.73sq m eGFR calculated using average adult body mass. Additional eGFR calculator available at: http://www.[employer]/multiple_crcl_2012.htm Performed By: #### R EJEC, LIP, TROPI, CP, DIGC, BNP ####[facility] [id number] [facility] [place] [address] Lab Director: Con Oseguera MD Alkaline Phos 125 U/L Normal 40-129 [facility] Comment on above: Result Comment: SPEC IMEN SLIGHTLY HEMOLYZED, RESULTS MAY BE ADVERSELY AFFECTED. Performed By: #### R EJEC, LIP, TROPI, CP, DIGC, BNP ####[facility] [id number] [place] [address] lab Director: Con Oseguera MD ALT [Catalytic activity/Vol] 15 U/L Normal 5-41 [facility] Comment on above: Result Comment: SPEC IMEN SLIGHTLY HEMOLYZED, RESULTS MAY BE ADVERSELY AFFECTED. Performed By: #### R EJEC, LIP, TROPI, CP, DIGC, BNP ####[facility] [id number] [place] [address] Lab Director: Con Oseguera MD Anion gap [Moles/Vol] 17 mmol/L Normal 9-17 [facility] Comment on above: Performed By: #### R EJEC, LIP, TROPI, CP, DIGC, BNP ####[facility] [id number] [facility] [place] [address] Lab Director: Con Oseguera MD AST [Catalytic activity/Vol] 28 U/L Normal <40 [facility] Comment on above: Result Comment: SPEC IMEN SLIGHTLY HEMOLYZED, RESULTS MAY BE ADVERSELY AFFECTED. Performed By: #### R EJEC, LIP, TROPI, CP, DIGC, BNP ####[facility] [id number] [facility] [place] [address] Lab Director: Con Oesguera MD Bilirubin Ql (U) 0.51 mg/dL Normal 0.3-1.2 [facility] Comment on above: Result Comment: SPEC IMEN SLIGHTLY HEMOLYZED, RESULTS MAY BE ADVERSELY AFFECTED. Performed By: #### R EJEC, LIP, TROPI, CP, DIGC, BNP ####[facility] [id number] [facility] [place] [address] Lab Director: Con Oseguera MD Calcium [Mass/Vol] 9.1 mg/dL Normal 8.6-10.4 [facility] Comment on above: Result Comment: SPEC IMEN SLIGHTLY HEMOLYZED, RESULTS MAY BE ADVERSELY AFFECTED. Performed By: #### R EJEC, LIP, TROPI, CP, DIGC, BNP ####[facility] [id number] [place] [address] Lab Director: Con Oseguera MD GFR, Amer >60 Normal >60 [facility] Comment on above: Performed By: #### R EJEC, LIP, TROPI, CP, DIGC, BNP ####[facility] [id number] [place] [address] Lab Director: Con Oseguera MD GFR,non Amer >60 Normal >60 [facility] Comment on above: Performed By: #### R EJEC, LIP, TROPI, CP, DIGC, BNP ####[facility] [id number] [place] [address] Lab Director: Con Oseguera MD Potassium [Moles/Vol] 4.8 mmol/L Normal 3.7-5.3 [facility] Comment on above: Result Comment: SPEC IMEN SLIGHTLY HEMOLYZED, RESULTS MAY BE ADVERSELY AFFECTED. Performed By: #### R EJEC, LIP, TROPI, CP, DIGC, BNP ####[facility] [id number] [place] [address] Lab Director: Con Oseguera MD Protein [Mass/Vol] 6.9 g/dL Normal 6.4-8.3 [facility] Comment on above: Result Comment: SPEC IMEN SLIGHTLY HEMOLYZED, RESULTS MAY BE ADVERSELY AFFECTED. Performed By: #### R EJEC, LIP, TROPI, CP, DIGC, BNP ####[facility] [id number] [place] [address] Lab Director: Con Oseguera MD Sodium [Moles/Vol] 134 mmol/L Low 135-144 [facility] Comment on above: Result Comment: SPEC IMEN SLIGHTLY HEMOLYZED, RESULTS MAY BE ADVERSELY AFFECTED. Performed By: #### R EJEC, LIP, TROPI, CP, DIGC, BNP ####[facility] [id number] [place] [address] Lab Director: Con Oseguera MD Albumin [Mass/Vol] 4.1 g/dL Normal 3.5-5.2 [facility] Comment on above: Performed By: #### R EJEC, LIP, TROPI, CP, DIGC, BNP ####[facility] [id number] [place] [address] lab Director: Con Oseguera MD Chloride [Moles/Vol] 99 mmol/L Normal 98-107 [facility] Comment on above: Performed By: #### R EJEC, LIP, TROPI, CP, DIGC, BNP ####[facility] [id number] [place] [address] lab Director: Con Oseguera MD CO2 [Moles/Vol] 18 mmol/L Low 20-31 [facility] Comment on above: Performed By: #### R EJEC, LIP, TROPI, CP, DIGC, BNP ####[facility] [id number] [place] [address] Lab Director: Con Oseguera MD Creatinine [Mass/Vol] 0.98 mg/dL Normal 0.70-1.20 [facility] Comment on above: Performed By: #### R EJEC, LIP, TROPI, CP, DIGC, BNP ####[facility] [id number] [place] [address] lab Director: Con Oseguera MD Glucose [Mass/Vol] 148 mg/dL High 70-99 [facility] Comment on above: Performed By: #### R EJEC, LIP, TROPI, CP, DIGC, BNP ####[facility] [id number] [place] [address] lab Director: Con Oseguera MD Urea nitrogen [Mass/Vol] 24 mg/dL High 8-23 [facility] Comment on above: Performed By: #### R EJEC, LIP, TROPI, CP, DIGC, BNP ####[facility] [id number] [place] [address] Lab Director: Con Oseguera MD Albumin/Globulin [Mass ratio] NOT REPORTED Normal 1.0-2.5 [facility] Comment on above: Performed By: #### R EJEC, LIP, TROPI, CP, DIGC, BNP ####[facility] [id number] [place] [address] lab Director: Con Oseguera MD BUN/CRE Ratio NOT REPORTED Normal 9-20 [facility] Comment on above: Performed By: #### R EJEC, LIP, TROPI, CP, DIGC, BNP ####[facility] [id number] [place] [address] lab Director: Con Oseguera MD Staging: NOT REPORTED Normal [facility] Comment on above: Performed By: #### R EJEC, LIP, TROPI, CP, DIGC, BNP ####[facility] [id number] [place] [address] lab Director: Con Oseguera MD Digoxinon 12-10-2018 Digoxin [Mass/Vol] ng/mL Low 0.5-2.0 [facility] Comment on above: Result Comment: Digoxin Reference Range: Heart Failure 0.5-0.9 Atrial Fibrillation 0.8-2.0 Performed By: #### R EJEC, LIP, TROPI, CP, DIGC, BNP ####[facility] [id number] [place] [address] Lab Director: Con Oseguera MD Digoxin [Mass/Vol] UNKNOWN Normal [facility] Comment on above: Performed By: #### R EJEC, LIP, TROPI, CP, DIGC, BNP ####[facility] [id number] [place] [address] lab Director: Con Oseguera MD Lipaseon 12-10-2018 Lipase [Catalytic activity/Vol] 48 U/L Normal 13-60 [facility] Comment on above: Result Comment: SPEC IMEN SLIGHTLY HEMOLYZED, RESULTS MAY BE ADVERSELY AFFECTED. Performed By: #### B MP #### [facility] [address] [place] [address] [employer] Supervisor: Con Oseguera MD PTon 12-10-2018 INR Coag (PPP) [Relative time] 1.3 {INR} Normal [facility] Comment on above: Result Comment: Non-therapeutic Range: INR = 0.9-1.2 Therapeutic Range: Moderate Anticoagulant Intensity: INR = 2.0-3.0 High Anticoagulant Intensity: INR = 2.5-3.5 Performed By: #### P T, CDP ####[facility] [id number] [place] [address] Lab Director: Con Oseguera MD PT Coag (PPP) [Time] 16.5 s High 11.8-14.6 [facility] Comment on above: Performed By: #### P T, CDP ####[facility] [id number] [place] [address] Lab Director: Con Oseguera MD Specimen Rejectionon 019 Reason for rejection Unable to perform testing: Specimen clotted. Normal [facility] Comment on above: Performed By: #### B MP #### [facility] [address] [place] [address] [employer] Supervisor: Con Oseguera MD Source of sample .BLOOD Normal [facility] Comment on above: Performed By: #### B MP #### [facility] [address] [place] [address] [employer] Supervisor: Con Oseguera MD Test ordered CDP Normal [facility] Comment on above: Performed By: #### B MP #### [facility] [address] [place] [address] [employer] Supervisor: Con Oseguera MD ----- NOT REPORTED Normal [facility] Comment on above: Performed By: #### B MP #### [facility] [address] [facility] [place] [address] [employer] Supervisor: Con Oseguera MD Troponinon 12-10-2018 Troponin I.cardiac [Mass/Vol] 28 ng/L High 0-22 [facility] Comment on above: Result Comment: High Sensitivity Troponin values cannot be compared with other Troponin methodologies. Patients with high levels of Biotin oral intake (i.e >5mg/day) may have falsely decreased Troponin levels. Samples collected within 8 hours of biotin intake may require additional information for diagnosis. Performed By: #### T ROPI ####[facility] [id number] [place] [address] Lab Director: Con Oseguera MD Troponin I.cardiac [Mass/Vol] NOT REPORTED Normal [facility] Comment on above: Performed By: #### T ROPI ####[facility] [id number] [facility] [place] [address] Lab Director: Con Oseguera MD Troponin I.cardiac [Mass/Vol] 30 ng/L High 0-22 [facility] Comment on above: Result Comment: High [...] R EJEC, LIP, TROPI, CP, DIGC, BNP ####[facility] [id number] [facility] [address] Lab Director: Con Oseguera MD Troponin I.cardiac [Mass/Vol] NOT REPORTED Normal [facility] Comment on above: Performed By: #### R EJEC, LIP, TROPI, CP, DIGC, BNP ####[facility] [id number] [place] [address] Lab Director: Con Oseguera MD Urinalysis, Routineon 2018 Acetoacetic Acid,Ur Negative Normal NEG [facility] Comment on above: Performed By: #### U A ####[facility] [id number] [place] [address] Lab Director: Con Oseguera MD Bilirubin, SemiQt,Ur Negative Normal NEG [facility] Comment on above: Performed By: #### U A ####[facility] [id number] [place] [address] Lab Director: Con Oseguera MD Color (U) YELLOW Normal YEL [facility] Comment on above: Performed By: #### U A ####[facility] [id number] [place] [address] Lab Director: Con Oseguera MD Comment Microscopic exam not performed based on chemical results unless requested in Normal [facility] Comment on above: Result Comment: orig inal order. Performed By: #### U A ####[facility] [address] [place] [address] [phone] Director: Con Oseguera MD Glucose Ql (U) Negative Normal NEG [facility] Comment on above: Performed By: #### U A ####[facility] [id number] [place] [address] Lab Director: Con Oseguera MD Hemoglobin, Ur Negative Normal NEG [facility] Comment on above: Performed By: #### U A ####[facility] [id number] [place] [address] Lab Director: Con Oseguera MD Leukocyte esterase Test strip Ql (U) Negative Normal NEG [facility] Comment on above: Performed By: #### U A ####[facility] [id number] [place] [address] [place] [address] [facility] Director: Con Oseguera MD Nitrite,Ur Negative Normal NEG [facility] Comment on above: Performed By: #### U A ####[facility] [id number] [place] [address] [facility] Director: Con Oseguera MD pH (U) 5.0 [pH] Normal 5.0-8.0 [facility] Comment on above: Performed By: #### U A ####[facility] [id number] [facility] [place] [address] lab Director: Con Oseguera MD Protein Ql (U) Negative Normal NEG [facility] Comment on above: Performed By: #### U A ####[address] [address] [facility] Director: Con Oseguera MD Specific gravity (U) [Rel density] 1.013 Normal 1.000-1.030 [facility] Comment on above: Performed By: #### U A ####[facility] [id number] [facility] [address] lab Director: Con Oseguera MD Turbidity CLEAR Normal CLEAR [facility] Comment on above: Performed By: #### U A ####[facility] [id number] [place] [address].[place] [address] [facility] Director: Con Oseguera MD Urobilinogen,Ur Normal Normal NORM [facility] Comment on above: Performed By: #### U A ####[address] [address] [facility] Director: Con Oseguera MD XR CHEST (2 [...] Sawyer Jr., DO 12/10/18 Final result Normal [facility] Basic Metabolic Profon 11-03 (cont.) Normal [facility] Comment on above: Result Comment: Aver age GFR for 70 or more years old: 75 mL/min/1.73sq m Chronic Kidney Disease: <60 mL/min/1.73sq m Kidney failure: <15 mL/min/1.73sq m eGFR calculated using average adult body mass. Additional eGFR calculator available at: http://www.[employer]/multiple_crcl_2012.htm Performed By: #### B MP #### [facility] [address] [place] [address] [employer] Supervisor: Con Oseguera MD Anion gap [Moles/Vol] 15 mmol/L Normal 9-17 [facility] Comment on above: Performed By: #### B MP #### [facility] [address] [place] [address] [employer] Supervisor: Con Oseguera MD Calcium [Mass/Vol] 8.9 mg/dL Normal 8.6-10.4 [facility] Comment on above: Performed By: #### B MP #### [facility] [address] [place] [address] [employer] Supervisor: Con Oseguera MD Chloride [Moles/Vol] 100 mmol/L Normal 98-107 [facility] Comment on above: Performed By: #### B MP #### [facility] [address] [place] [address] [employer] Supervisor: Con Oseguera MD CO2 [Moles/Vol] 21 mmol/L Normal 20-31 [facility] Comment on above: Performed By: #### B MP #### [facility] [address] [place] [address] [employer] Supervisor: Con Oseguera MD Creatinine [Mass/Vol] 1.17 mg/dL Normal 0.70-1.20 [facility] Comment on above: Performed By: #### B MP #### [facility] [address] [place] [address] [employer] Supervisor: Con Oseguera MD GFR, Amer >60 Normal >60 [facility] Comment on above: Performed By: #### B MP #### [facility] [address] [place] [address] [employer] Supervisor: Con Oseguera MD GFR,non Amer 60 mL/min Low >60 [facility] Comment on above: Performed By: #### B MP #### [facility] [address] [place] [address] [employer] Supervisor: Con Oseguera MD Glucose [Mass/Vol] 231 mg/dL High 70-99 [facility] Comment on above: Performed By: #### B MP #### [facility] [address] [place] [address] [employer] Supervisor: Con Oseguera MD Potassium [Moles/Vol] 4.0 mmol/L Normal 3.7-5.3 [facility] Comment on above: Performed By: #### B MP #### [facility] [address] [place] [address] [employer] Supervisor: Con Oseguera MD Sodium [Moles/Vol] 136 mmol/L Normal 135-144 [facility] Comment on above: Performed By: #### B MP #### [facility] [address] [place] [address] [employer] Supervisor: Con Oseguera MD Urea nitrogen [Mass/Vol] 27 mg/dL High - [facility] Comment on above: Performed By: #### B MP #### [facility] [address] [place] [address] [employer] Supervisor: Con Oseguera MD BUN/CRE Ratio NOT REPORTED Normal - [facility] Comment on above: Performed By: #### B MP #### [facility] [address] [place] [address] [employer] Supervisor: Con Oseguera MD Staging: NOT REPORTED Normal [facility] Comment on above: Performed By: #### B MP #### [facility] [address] [place] [address] [employer] Supervisor: Con Oseguera MD T3, Freeon 11-03-2018 Free T3 [Mass/Vol] 2.64 pg/mL Normal 2.02-4.43 [facility] Comment on above: Performed By: #### B MP #### [facility] [place] [address] [employer] Supervisor: Con Oseguera MD Thyroid Stim. Horm.on 2018 TSH Qn 5.66 m[IU]/L High 0.30-5.00 [facility] Comment on above: Performed By: #### B MP #### [facility] [address] [place] [address] [employer] Supervisor: Con Oseguera MD Thyroxine, Freeon 11-03-2018 Thyroxine, Free 0.92 ng/dL Low 0.93-1.70 [facility] Comment on above: Performed By: #### B MP #### [facility] [address] [place] [address] [employer] Supervisor: Con Oseguera MD Basic Metabolic Profon 10-23 (cont.) Normal [facility] Comment on above: Result Comment: Aver age GFR for 70 or more years old: 75 mL/min/1.73sq m Chronic Kidney Disease: <60 mL/min/1.73sq m Kidney failure: <15 mL/min/1.73sq m eGFR calculated using average adult body mass. Additional eGFR calculator available at: http://www.[employer]/multiple_crcl_2012.htm Performed By: #### B MP #### [facility] [address] [place] [address] [employer] Supervisor: Con Oseguera MD Anion gap [Moles/Vol] 14 mmol/L Normal 9-17 [facility] Comment on above: Performed By: #### B MP #### [facility] [place] [address] [employer] Supervisor: Con Oseguera MD Calcium [Mass/Vol] 9.3 mg/dL Normal 8.6-10.4 [facility] Comment on above: Performed By: #### B MP #### [facility] [place] [address] [employer] Supervisor: Con Oseguera MD Chloride [Moles/Vol] 100 mmol/L Normal 98-107 [facility] Comment on above: Performed By: #### B MP #### [facility] [address] [place] [address] [employer] Supervisor: Con Oseguera MD CO2 [Moles/Vol] 22 mmol/L Normal 20-31 [facility] Comment on above: Performed By: #### B MP #### [facility] [address] [place] [address] [employer] Supervisor: Con Oseguera MD Creatinine [Mass/Vol] 2.03 mg/dL High 0.70-1.20 [facility] Comment on above: Performed By: #### B MP #### [facility] [address] [place] [address] [employer] Supervisor: Con Oseguera MD GFR, Amer 38 mL/min Low >60 [facility] Comment on above: Performed By: #### B MP #### [facility] [address] [place] [address] [employer] Supervisor: Con Oseguera MD GFR,non Amer 32 mL/min Low >60 [facility] Comment on above: Performed By: #### B MP #### [facility] [address] [place] [address] [employer] Supervisor: Con Oseguera MD Glucose [Mass/Vol] 286 mg/dL High 70-99 [facility] Comment on above: Performed By: #### B MP #### [facility] [address] [place] [address] [employer] Supervisor: Con Oseguera MD Potassium [Moles/Vol] 5.2 mmol/L Normal 3.7-5.3 [facility] Comment on above: Performed By: #### B MP #### [facility] [address] [place] [address] [employer] Supervisor: Con Oseguera MD Sodium [Moles/Vol] 136 mmol/L Normal 135-144 [facility] Comment on above: Performed By: #### B MP #### [facility] [place] [address] [employer] Supervisor: Con Oseguera MD Urea nitrogen [Mass/Vol] 51 mg/dL High 8-23 [facility] Comment on above: Performed By: #### B MP #### [facility] [address] [place] [address] [employer] Supervisor: Con Oseguera MD BUN/CRE Ratio NOT REPORTED Normal 9-20 [facility] Comment on above: Performed By: #### B MP #### [facility] [address] [place] [address] [employer] Supervisor: Con Oseguera MD Staging: NOT REPORTED Normal [facility] Comment on above: Performed By: #### B MP #### [facility] [place] [address] [employer] Supervisor: Con Oseguera MD CBC with Diffon 10-23-2018 Abs. Basophil 0.09 k/uL Normal 0.0-0.2 [facility] Comment on above: Performed By: #### B MP #### [facility] [facility] [place] [address] [employer] Supervisor: Con Oseguera MD Abs.Neutrophil (Seg) 6.45 k/uL Normal 1.3-9.1 [facility] Comment on above: Performed By: #### B MP #### [facility] [facility] [place] [address] [employer] Supervisor: Con Oseguera MD Basophils/100 WBC (Bld) 1 % Normal 0-2 [facility] Comment on above: Performed By: #### B MP #### [facility] [place] [address] [employer] Supervisor: Con Oseguera MD Eosinophils (Bld) [#/Vol] 0.17 10*3/uL Normal 0.0-0.4 [facility] Comment on above: Performed By: #### B MP #### [facility] [place] [address] [employer] Supervisor: Con Oseguera MD Eosinophils/100 WBC (Bld) 2 % Normal 0-4 [facility] Comment on above: Performed By: #### B MP #### [facility] [address] [place] [address] [employer] Supervisor: Con Oseguera MD Lymphocytes (Bld) [#/Vol] 1.19 10*3/uL Normal 1.0-4.8 [facility] Comment on above: Performed By: #### B MP #### [facility] [address] [place] [address] [employer] Supervisor: Con Oseguera MD Lymphocytes/100 WBC (Bld) 14 % Low 24-44 [facility] Comment on above: Performed By: #### B MP #### [facility] [address] [place] [address] [employer] Supervisor: Con Oseguera MD Monocytes (Bld) [#/Vol] 0.60 10*3/uL Normal 0.1-1.3 [facility] Comment on above: Performed By: #### B MP #### [facility] [address] [place] [address] [employer] Supervisor: Con Oseguera MD Monocytes/100 WBC (Bld) 7 % Normal 1-7 [facility] Comment on above: Performed By: #### B MP #### [facility] [place] [address] [employer] Supervisor: Con Oseguera MD Morphology Theo (Bld) [Interp] ANISOCYTOSIS PRESENT Normal [facility] [facility] Comment on above: Result Comment: HYPO CHROMIA PRESENT MICROCYTOSIS PRESENT 1+ ELLIPTOCYTES 1+ ECHINOCYTES Performed By: #### B MP #### [facility] [address] [place] [address] [employer] Supervisor: Con Oseguera MD Neutrophil (Seg) 76 % High 36-66 [facility] Comment on above: Performed By: #### B MP #### [facility] [address] [place] [address] [employer] Supervisor: Con Oseguera MD Erythrocyte distribution width (RBC) [Ratio] 21.6 % High 11.5-14.9 [facility] Comment on above: Performed By: #### B MP #### [facility] [place] [address] [employer] Supervisor: Con Oseguera MD Hematocrit (Bld) [Volume fraction] 27.3 % Low 41-53 [facility] Comment on above: Performed By: #### B MP #### [facility] [place] [address] [employer] Supervisor: Con Oseguera MD Hemoglobin (Bld) [Mass/Vol] 8.5 g/dL Low 13.5-17.5 [facility] Comment on above: Performed By: #### B MP #### [facility] [place] [address] [employer] Supervisor: Con Oseguera MD MCH (RBC) [Entitic mass] 21.1 pg Low 26-34 [facility] Comment on above: Performed By: #### B MP #### [facility] [place] [address] [employer] Supervisor: Con Oseguera MD MCHC (RBC) [Mass/Vol] 30.9 g/dL Low 31-37 [facility] Comment on above: Performed By: #### B MP #### [facility] [facility] [address] [employer] Supervisor: Con Oseguera MD MCV (RBC) [Entitic vol] 68.3 fL Low 80-100 [facility] Comment on above: Performed By: #### B MP #### [facility] [place] [address] [employer] Supervisor: Con Oseguera MD Platelet mean volume (Bld) [Entitic vol] 9.5 fL Normal 6.0-12.0 [facility] Comment on above: Performed By: #### B MP #### [facility] [address] [place] [address] [employer] Supervisor: Con Oseguera MD Platelets (Bld) [#/Vol] 300 10*3/uL Normal 150-450 [facility] Comment on above: Performed By: #### B MP #### [facility] [address] [place] [address] [employer] Supervisor: Con Oseguera MD RBC (Bld) [#/Vol] 4.00 10*6/uL Low 4.5-5.9 [facility] Comment on above: Performed By: #### B MP #### [facility] [address] [place] [address] [employer] Supervisor: Con Oseguera MD WBC (Bld) [#/Vol] 8.5 10*3/uL Normal 3.5-11.0 [facility] Comment on above: Performed By: #### B MP #### [facility] [address] [place] [address] [employer] Supervisor: Con Oseguera MD Abs.Imm.Granulocyte NOT REPORTED Normal 0.00-0.30 [facility] Comment on above: Performed By: #### B MP #### [facility] [address] [place] [address] [employer] Supervisor: Con Oseguera MD Auto Diff Performed NOT REPORTED Normal [facility] Comment on above: Performed By: #### B MP #### [facility] [address] [place] [address] [employer] Supervisor: Con Oseguera MD Immature granulocytes (Bld) [#/Vol] NOT REPORTED Normal 0 [facility] Comment on above: Performed By: #### B MP #### [facility] [address] [facility] [place] [address] [employer] Supervisor: Con Oseguera MD NRBC Automated NOT REPORTED Normal [facility] Comment on above: Performed By: #### B MP #### [facility] [address] [facility] [place] [address] [employer] Supervisor: Con Oseguera MD Platelets (Bld) [#/Vol] NOT REPORTED Normal [facility] Comment on above: Performed By: #### B MP #### [facility] [address] [facility] [place] [address] [employer] Supervisor: Con Oseguera MD RBC morphology finding Nom (Bld) NOT REPORTED Normal [facility] Comment on above: Performed By: #### B MP #### [facility] [address] [facility] [place] [address] [employer] Supervisor: Con Oseguera MD WBC Morphology NOT REPORTED Normal [facility] Comment on above: Performed By: #### B MP #### [facility] [address] [facility] [place] [address] [employer] Supervisor: Con Oseguera MD Comp Metabolic Profon 2018 (cont.) Normal [facility] Comment on above: Result Comment: Aver age GFR for 70 or more years old: 75 mL/min/1.73sq m Chronic Kidney Disease: <60 mL/min/1.73sq m Kidney failure: <15 mL/min/1.73sq m eGFR calculated using average adult body mass. Additional eGFR calculator available at: http://www.[employer]/multiple_crcl_2012.htm Performed By: #### C P, MG, CB, CDP #### [facility] [address] [facility] [place] [address] [employer] Supervisor: Con Oseguera MD Albumin [Mass/Vol] 3.9 g/dL Normal 3.5-5.2 [facility] Comment on above: Performed By: #### C P, MG, CB, CDP #### [facility] [address] [place] [address] [employer] Supervisor: Con Oseguera MD Alkaline Phos 90 U/L Normal 40-129 [facility] Comment on above: Performed By: #### C P, MG, CB, CDP #### [facility] [address] [place] [address] [employer] Supervisor: Con Oseguera MD ALT [Catalytic activity/Vol] 18 U/L Normal 5-41 [facility] Comment on above: Performed By: #### C P, MG, CB, CDP #### [facility] [address] [place] [address] [employer] Supervisor: Con Oseguera MD Anion gap [Moles/Vol] 14 mmol/L Normal 9-17 [facility] Comment on above: Performed By: #### C P, MG, CB, CDP #### [facility] [address] [place] [address] [employer] Supervisor: Con Oseguera MD AST [Catalytic activity/Vol] 21 U/L Normal <40 [facility] Comment on above: Performed By: #### C P, MG, CB, CDP #### [facility] [address] [place] [address] [employer] Supervisor: Con Oseguera MD Bilirubin Ql (U) 0.34 mg/dL Normal 0.3-1.2 [facility] Comment on above: Performed By: #### C P, MG, CB, CDP #### [facility] [address] [place] [address] [employer] Supervisor: Con Oseguera MD Calcium [Mass/Vol] 9.3 mg/dL Normal 8.6-10.4 [facility] Comment on above: Performed By: #### C P, MG, CB, CDP #### [facility] [address] [place] [address] [employer] Supervisor: Con Oseguera MD Chloride [Moles/Vol] 100 mmol/L Normal 98-107 [facility] Comment on above: Performed By: #### C P, MG, CB, CDP #### [facility] [address] [place] [address] [employer] Supervisor: Con Oseguera MD CO2 [Moles/Vol] 22 mmol/L Normal 20-31 [facility] Comment on above: Performed By: #### C P, MG, CB, CDP #### [facility] [place] [address] [employer] Supervisor: Con Oseguera MD Creatinine [Mass/Vol] 2.03 mg/dL High 0.70-1.20 [facility] Comment on above: Performed By: #### C P, MG, CB, CDP #### [facility] [address] [place] [address] [employer] Supervisor: Con Oseguera MD GFR, Amer 38 mL/min Low >60 [facility] Comment on above: Performed By: #### C P, MG, CB, CDP #### [facility] [address] [place] [address] [employer] Supervisor: Con Oseguera MD GFR,non Amer 32 mL/min Low >60 [facility] Comment on above: Performed By: #### C P, MG, CB, CDP #### [facility] [address] [place] [address] [employer] Supervisor: Con Oseguera MD Glucose [Mass/Vol] 286 mg/dL High 70-99 [facility] Comment on above: Performed By: #### C P, MG, CB, CDP #### [facility] [address] [place] [address] [employer] Supervisor: Con Oseguera MD Potassium [Moles/Vol] 5.2 mmol/L Normal 3.7-5.3 [facility] Comment on above: Performed By: #### C P, MG, CB, CDP #### [facility] [address] [place] [address] [employer] Supervisor: Con Oseguera MD Protein [Mass/Vol] 6.6 g/dL Normal 6.4-8.3 [facility] Comment on above: Performed By: #### C P, MG, CB, CDP #### [facility] [place] [address] [employer] Supervisor: Con Oseguera MD Sodium [Moles/Vol] 136 mmol/L Normal 135-144 [facility] Comment on above: Performed By: #### C P, MG, CB, CDP #### [facility] [facility] [place] [address] [employer] Supervisor: Con Oseguera MD Urea nitrogen [Mass/Vol] 51 mg/dL High 8-23 [facility] Comment on above: Performed By: #### C P, MG, CB, CDP #### [facility] [place] [address] [employer] Supervisor: Con Oseguera MD Albumin/Globulin [Mass ratio] NOT REPORTED Normal 1.0-2.5 [facility] Comment on above: Performed By: #### C P, MG, CB, CDP #### [facility] [place] [address] [employer] Supervisor: Con Oseguera MD BUN/CRE Ratio NOT REPORTED Normal 9-20 [facility] Comment on above: Performed By: #### C P, MG, CB, CDP #### [facility] [address] [place] [address] [employer] Supervisor: Con Oseguera MD Staging: NOT REPORTED Normal [facility] Comment on above: Performed By: #### C P, MG, CB, CDP #### [facility] [address] [place] [address] [employer] Supervisor: Con Oseguera MD Magnesiumon 10-23-2018 Magnesium [Mass/Vol] 2.3 mg/dL Normal 1.6-2.6 [facility] Comment on above: Performed By: #### B MP #### [facility] [address] [place] [address] [employer] Supervisor: Con Oseguera MD Phosphorus, Inorg.on 019 Phosphorus, Inorg. 4.8 mg/dL High 2.5-4.5 [facility] Comment on above: Performed By: #### B MP #### [facility] [place] [address] [employer] Supervisor: Con Oseguera MD Basic Metabolic Profon 10-12 (cont.) Normal [facility] Comment on above: Result Comment: Aver age GFR for 70 or more years old: 75 mL/min/1.73sq m Chronic Kidney Disease: <60 mL/min/1.73sq m Kidney failure: <15 mL/min/1.73sq m eGFR calculated using average adult body mass. Additional eGFR calculator available at: http://www.Smartpay.com/multiple_crcl_2012.htm Performed By: #### B MP #### [facility] [address] [place] [address] [employer] Supervisor: Con Oseguera MD Anion gap [Moles/Vol] 14 mmol/L Normal 9-17 [facility] Comment on above: Performed By: #### B MP #### [facility] [address] [place] [address] [employer] Supervisor: Con Oseguera MD Calcium [Mass/Vol] 9.6 mg/dL Normal 8.6-10.4 [facility] Comment on above: Performed By: #### B MP #### [facility] [address] [place] [address] [employer] Supervisor: Con Oseguera MD Chloride [Moles/Vol] 103 mmol/L Normal 98-107 [facility] Comment on above: Performed By: #### B MP #### [facility] [address] [place] [address] [employer] Supervisor: Con Oseguera MD CO2 [Moles/Vol] 21 mmol/L Normal 20-31 [facility] Comment on above: Performed By: #### B MP #### [facility] [address] [place] [address] [employer] Supervisor: Con Oseguera MD Creatinine [Mass/Vol] 1.52 mg/dL High 0.70-1.20 [facility] Comment on above: Performed By: #### B MP #### [facility] [address] [place] [address] [employer] Supervisor: Cno Oseguera MD GFR, Amer 54 mL/min Low >60 [facility] Comment on above: Performed By: #### B MP #### [facility] [address] [place] [address] [employer] Supervisor: Con Oseguera MD GFR,non Amer 44 mL/min Low >60 [facility] Comment on above: Performed By: #### B MP #### [facility] [address] [place] [address] [employer] Supervisor: Con Oseguera MD Glucose [Mass/Vol] 219 mg/dL High 70-99 [facility] Comment on above: Performed By: #### B MP #### [facility] [address] [place] [address] [employer] Supervisor: Con Oseguera MD Potassium [Moles/Vol] 4.8 mmol/L Normal 3.7-5.3 [facility] Comment on above: Performed By: #### B MP #### [facility] [address] [place] [address] [employer] Supervisor: Con Oseguera MD Sodium [Moles/Vol] 138 mmol/L Normal 135-144 [facility] Comment on above: Performed By: #### B MP #### [facility] [place] [address] [employer] Supervisor: Con Oseguera MD Urea nitrogen [Mass/Vol] 48 mg/dL High 8-23 [facility] Comment on above: Performed By: #### B MP #### [facility] [place] [address] [employer] Supervisor: Con Oseguera MD BUN/CRE Ratio NOT REPORTED Normal 9-20 [facility] Comment on above: Performed By: #### B MP #### [facility] [place] [address] [employer] Supervisor: Con Oseguera MD Staging: NOT REPORTED Normal [facility] Comment on above: Performed By: #### B MP #### [facility] [place] [address] [employer] Supervisor: Con Oseguera MD Basic Metabolic Profon 09-28 (cont.) Normal [facility] Comment on above: Result Comment: Aver age GFR for 70 or more years old: 75 mL/min/1.73sq m Chronic Kidney Disease: <60 mL/min/1.73sq m Kidney failure: <15 mL/min/1.73sq m eGFR calculated using average adult body mass. Additional eGFR calculator available at: http://www.Smartpay.com/multiple_crcl_2012.htm Performed By: #### B MP #### [facility] [address] [place] [address] [employer] Supervisor: Con Oseguera MD Anion gap [Moles/Vol] 13 mmol/L Normal 9-17 [facility] Comment on above: Performed By: #### B MP #### [facility] [place] [address] [employer] Supervisor: Con Oseguera MD Calcium [Mass/Vol] 9.2 mg/dL Normal 8.6-10.4 [facility] Comment on above: Performed By: #### B MP #### [facility] [address] [place] [address] [employer] Supervisor: Con Oseguera MD Chloride [Moles/Vol] 100 mmol/L Normal 98-107 [facility] Comment on above: Performed By: #### B MP #### [facility] [place] [address] [employer] Supervisor: Con Oseguera MD CO2 [Moles/Vol] 24 mmol/L Normal 20-31 [facility] Comment on above: Performed By: #### B MP #### [facility] [place] [address] [employer] Supervisor: Con Oseguera MD Creatinine [Mass/Vol] 1.46 mg/dL High 0.70-1.20 [facility] Comment on above: Performed By: #### B MP #### [facility] [place] [address] [employer] Supervisor: Con Oseguera MD GFR, Amer 56 mL/min Low >60 [facility] Comment on above: Performed By: #### B MP #### [facility] [address] [place] [address] [employer] Supervisor: Con Oseguera MD GFR,non Amer 46 mL/min Low >60 [facility] Comment on above: Performed By: #### B MP #### [facility] [address] [place] [address] [employer] Supervisor: Con Oseguera MD Glucose [Mass/Vol] 269 mg/dL High 70-99 [facility] Comment on above: Performed By: #### B MP #### [facility] [address] [facility] [address] [employer] Supervisor: Con Oseguera MD Potassium [Moles/Vol] 4.7 mmol/L Normal 3.7-5.3 [facility] Comment on above: Performed By: #### B MP #### [facility] [place] [address] [employer] Supervisor: Con Oseguera MD Sodium [Moles/Vol] 137 mmol/L Normal 135-144 [facility] Comment on above: Performed By: #### B MP #### [facility] [place] [address] [employer] Supervisor: Con Oseguera MD Urea nitrogen [Mass/Vol] 41 mg/dL High 8-23 [facility] Comment on above: Performed By: #### B MP #### [facility] [place] [address] [employer] Supervisor: Con Oseguera MD BUN/CRE Ratio NOT REPORTED Normal 9-20 [facility] Comment on above: Performed By: #### B MP #### [facility] [address] [place] [place] [address] [employer] Supervisor: Con Oseguera MD Staging: NOT REPORTED Normal [facility] Comment on above: Performed By: #### B MP #### [facility] [address] [place] [address] [employer] Supervisor: Con Oseguera MD Basic Metabolic Profon 09-20 (cont.) Normal [facility] Comment on above: Result Comment: Aver age GFR for 70 or more years old: 75 mL/min/1.73sq m Chronic Kidney Disease: <60 mL/min/1.73sq m Kidney failure: <15 mL/min/1.73sq m eGFR calculated using average adult body mass. Additional eGFR calculator available at: http://www.[employer]/multiple_crcl_2012.htm Performed By: #### H H, BMP #### [facility] [facility] [address] [employer] Supervisor: Con Oseguera MD Anion gap [Moles/Vol] 14 mmol/L Normal 9-17 [facility] Comment on above: Performed By: #### H H, BMP #### [facility] [place] [address] [employer] Supervisor: Con Oseguera MD Calcium [Mass/Vol] 9.1 mg/dL Normal 8.6-10.4 [facility] Comment on above: Performed By: #### H H, BMP #### [facility] [address] [place] [address] [employer] Supervisor: Con Oseguera MD Chloride [Moles/Vol] 98 mmol/L Normal 98-107 [facility] Comment on above: Performed By: #### H H, BMP #### [facility] [address] [place] [address] [employer] Supervisor: Con Oseguera MD CO2 [Moles/Vol] 24 mmol/L Normal 20-31 [facility] Comment on above: Performed By: #### H H, BMP #### [facility] [address] [place] [address] [employer] Supervisor: Con Oseguera MD Creatinine [Mass/Vol] 1.48 mg/dL High 0.70-1.20 [facility] Comment on above: Performed By: #### H H, BMP #### [facility] [address] [place] [address] [employer] Supervisor: Con Oseguera MD GFR, Amer 55 mL/min Low >60 [facility] Comment on above: Performed By: #### H H, BMP #### [facility] [address] [place] [address] [employer] Supervisor: Con Oseguera MD GFR,non Amer 46 mL/min Low >60 [facility] Comment on above: Performed By: #### H H, BMP #### [facility] [address] [place] [address] [employer] Supervisor: Con Oseguera MD Glucose [Mass/Vol] 168 mg/dL High 70-99 [facility] Comment on above: Performed By: #### H H, BMP #### [facility] [place] [address] [employer] Supervisor: Con Oseguera MD Potassium [Moles/Vol] 4.6 mmol/L Normal 3.7-5.3 [facility] Comment on above: Performed By: #### H H, BMP #### [facility] [address] [place] [address] [employer] Supervisor: Con Oseguera MD Sodium [Moles/Vol] 136 mmol/L Normal 135-144 [facility] Comment on above: Performed By: #### H H, BMP #### [facility] [address] [place] [address] [employer] Supervisor: Con Oseguera MD Urea nitrogen [Mass/Vol] 34 mg/dL High 8- [facility] Comment on above: Performed By: #### H H, BMP #### [facility] [address] [place] [address] [employer] Supervisor: Con Oseguera MD BUN/CRE Ratio NOT REPORTED Normal - [facility] Comment on above: Performed By: #### H H, BMP #### [facility] [address] [place] [address] [employer] Supervisor: Con Oseguera MD Staging: NOT REPORTED Normal [facility] Comment on above: Performed By: #### H H, BMP #### [facility] [address] [place] [address] [employer] Supervisor: Con Oseguera MD Hgb/Hcton 09-20-2018 Hematocrit (Bld) [Volume fraction] 26.8 % Low 41-53 [facility] Comment on above: Performed By: #### H H, BMP #### [facility] [address] [place] [address] [employer] Supervisor: Con Oseguera MD Hemoglobin (Bld) [Mass/Vol] 8.3 g/dL Low 13.5-17.5 [facility] Comment on above: Performed By: #### H H, BMP #### [facility] [address] [place] [address] [employer] Supervisor: Con Oseguera MD Basic Metabolic Profon 09-07 (cont.) Normal [facility] Comment on above: Result Comment: Aver age GFR for 70 or more years old: 75 mL/min/1.73sq m Chronic Kidney Disease: <60 mL/min/1.73sq m Kidney failure: <15 mL/min/1.73sq m eGFR calculated using average adult body mass. Additional eGFR calculator available at: http://www.[employer]/multiple_crcl_2012.htm Performed By: #### B MP #### [facility] [address] [place] [address] [employer] Supervisor: Con Oseguera MD Anion gap [Moles/Vol] 10 mmol/L Normal 9-17 [facility] Comment on above: Performed By: #### B MP #### [facility] [address] [place] [address] [employer] Supervisor: Con Oseguera MD Calcium [Mass/Vol] 9.1 mg/dL Normal 8.6-10.4 [facility] Comment on above: Performed By: #### B MP #### [facility] [place] [address] [employer] Supervisor: Con Oseguera MD Chloride [Moles/Vol] 103 mmol/L Normal 98-107 [facility] Comment on above: Performed By: #### B MP #### [facility] [place] [address] [employer] Supervisor: Con Oseguera MD CO2 [Moles/Vol] 25 mmol/L Normal 20-31 [facility] Comment on above: Performed By: #### B MP #### [facility] [place] [address] [employer] Supervisor: Con Oseguera MD Creatinine [Mass/Vol] 1.25 mg/dL High 0.70-1.20 [facility] Comment on above: Performed By: #### B MP #### [facility] [place] [address] [employer] Supervisor: Con Oseguera MD GFR, Amer >60 Normal >60 [facility] Comment on above: Performed By: #### B MP #### [facility] [address] [place] [address] [employer] Supervisor: Con Oseguera MD GFR,non Amer 55 mL/min Low >60 [facility] Comment on above: Performed By: #### B MP #### [facility] [address] [place] [address] [employer] Supervisor: Con Oseguera MD Glucose [Mass/Vol] 123 mg/dL High 70-99 [facility] Comment on above: Performed By: #### B MP #### [facility] [address] [place] [address] [employer] Supervisor: Con Oseguera MD Potassium [Moles/Vol] 4.7 mmol/L Normal 3.7-5.3 [facility] Comment on above: Performed By: #### B MP #### [facility] [address] [place] [address] [employer] Supervisor: Con Oseguera MD Sodium [Moles/Vol] 138 mmol/L Normal 135-144 [facility] Comment on above: Performed By: #### B MP #### [facility] [address] [place] [address] [employer] Supervisor: Con Oseguera MD Urea nitrogen [Mass/Vol] 28 mg/dL High 8-23 [facility] Comment on above: Performed By: #### B MP #### [facility] [address] [place] [address] [employer] Supervisor: Con Oseguera MD BUN/CRE Ratio NOT REPORTED Normal 9-20 [facility] Comment on above: Performed By: #### B MP #### [facility] [address] [place] [address] [employer] Supervisor: Con Oseguera MD Staging: NOT REPORTED Normal [facility] Comment on above: Performed By: #### B MP #### [facility] [address] [place] [address] [employer] Supervisor: Con Oseguera MD Basic Metabolic Profon 08-31 (cont.) Normal [facility] Comment on above: Result Comment: Aver age GFR for 70 or more years old: 75 mL/min/1.73sq m Chronic Kidney Disease: <60 mL/min/1.73sq m Kidney failure: <15 mL/min/1.73sq m eGFR calculated using average adult body mass. Additional eGFR calculator available at: http://www.Canary Calendar/multiple_crcl_2011.htm Performed By: #### B MP #### [facility] [address] [facility] [place] [address] [employer] Supervisor: Con Oseguera MD Anion gap [Moles/Vol] 11 mmol/L Normal 9-17 [facility] Comment on above: Performed By: #### B MP #### [facility] [address] [facility] [place] [address] [employer] Supervisor: Con Oseguera MD Calcium [Mass/Vol] 9.4 mg/dL Normal 8.6-10.4 [facility] Comment on above: Performed By: #### B MP #### [facility] [address] [facility] [place] [address] [employer] Supervisor: Con Oseguera MD Chloride [Moles/Vol] 100 mmol/L Normal 98-107 [facility] Comment on above: Performed By: #### B MP #### [facility] [place] [address] [employer] Supervisor: Con Oseguera MD CO2 [Moles/Vol] 24 mmol/L Normal 20-31 [facility] Comment on above: Performed By: #### B MP #### [facility] [address] [place] [address] [employer] Supervisor: Con Oseguera MD Creatinine [Mass/Vol] 1.35 mg/dL High 0.70-1.20 [facility] Comment on above: Performed By: #### B MP #### [facility] [address] [place] [address] [employer] Supervisor: Con Oseguera MD GFR, Amer >60 Normal >60 [facility] Comment on above: Performed By: #### B MP #### [facility] [address] [place] [address] [employer] Supervisor: Con Oseguera MD GFR,non Amer 51 mL/min Low >60 [facility] Comment on above: Performed By: #### B MP #### [facility] [address] [place] [address] [employer] Supervisor: Con Oseguera MD Glucose [Mass/Vol] 133 mg/dL High 70-99 [facility] Comment on above: Performed By: #### B MP #### [facility] [address] [place] [address] [employer] Supervisor: Con Oseguera MD Potassium [Moles/Vol] 4.8 mmol/L Normal 3.7-5.3 [facility] Comment on above: Performed By: #### B MP #### [facility] [address] [place] [address] [employer] Supervisor: Con Oseguera MD Sodium [Moles/Vol] 135 mmol/L Normal 135-144 [facility] Comment on above: Performed By: #### B MP #### [facility] [address] [place] [address] [employer] Supervisor: Con Oseguera MD Urea nitrogen [Mass/Vol] 35 mg/dL High 8-23 [facility] Comment on above: Performed By: #### B MP #### [facility] [address] [place] [address] [employer] Supervisor: Con Oseguera MD BUN/CRE Ratio NOT REPORTED Normal 03-16 [facility] Comment on above: Performed By: #### B MP #### [facility] [address] [place] [address] [employer] Supervisor: Con Oseguera MD Staging: NOT REPORTED Normal [facility] Comment on above: Performed By: #### B MP #### [facility] [address] [place] [address] [employer] Supervisor: Con Oseguera MD XR ABDOMEN (KUB) (SINGLE [...] by: Crow Wright MD Signed by: Crow Wrihgt MD 08/21/18 Final result Normal [facility] Basic Metabolic Profon 08-16 (cont.) Normal [facility] Comment on above: Result Comment: Aver age GFR for 70 or more years old: 75 mL/min/1.73sq m Chronic Kidney Disease: <60 mL/min/1.73sq m Kidney failure: <15 mL/min/1.73sq m eGFR calculated using average adult body mass. Additional eGFR calculator available at: http://www.[employer]/multiple_crcl_2012.htm Performed By: #### B MP #### [facility] [address] [place] [address] [employer] Supervisor: Con Oseguera MD Anion gap [Moles/Vol] 11 mmol/L Normal 9-17 [facility] Comment on above: Performed By: #### B MP #### [facility] [address] [place] [address] [employer] Supervisor: Con Oseguera MD Calcium [Mass/Vol] 9.0 mg/dL Normal 8.6-10.4 [facility] Comment on above: Performed By: #### B MP #### [facility] [place] [address] [employer] Supervisor: Con Oseguera MD Chloride [Moles/Vol] 99 mmol/L Normal 98-107 [facility] Comment on above: Performed By: #### B MP #### [facility] [place] [address] [employer] Supervisor: Con Oseguera MD CO2 [Moles/Vol] 26 mmol/L Normal 20-31 [facility] Comment on above: Performed By: #### B MP #### [facility] [place] [address] [employer] Supervisor: Con Oseguera MD Creatinine [Mass/Vol] 1.46 mg/dL High 0.70-1.20 [facility] Comment on above: Performed By: #### B MP #### [facility] [place] [address] [employer] Supervisor: Con Oseguera MD GFR, Amer 56 mL/min Low >60 [facility] Comment on above: Performed By: #### B MP #### [facility] [address] [place] [address] [employer] Supervisor: Con Oseguera MD GFR,non Amer 46 mL/min Low >60 [facility] Comment on above: Performed By: #### B MP #### [facility] [address] [place] [address] [employer] Supervisor: Con Oseguera MD Glucose [Mass/Vol] 160 mg/dL High 70-99 [facility] Comment on above: Performed By: #### B MP #### [facility] [address] [place] [address] [employer] Supervisor: Con Oseguera MD Potassium [Moles/Vol] 4.4 mmol/L Normal 3.7-5.3 [facility] Comment on above: Performed By: #### B MP #### [facility] [address] [place] [address] [employer] Supervisor: Con Oseguera MD Sodium [Moles/Vol] 136 mmol/L Normal 135-144 [facility] Comment on above: Performed By: #### B MP #### [facility] [address] [place] [address] [employer] Supervisor: Con Osgeuera MD Urea nitrogen [Mass/Vol] 42 mg/dL High 8-23 [facility] Comment on above: Performed By: #### B MP #### [facility] [address] [place] [address] [employer] Supervisor: Con Oseguera MD BUN/CRE Ratio NOT REPORTED Normal 9-20 [facility] Comment on above: Performed By: #### B MP #### [facility] [address] [place] [address] [employer] Supervisor: Con Oseguera MD Staging: NOT REPORTED Normal [facility] Comment on above: Performed By: #### B MP #### [facility] [place] [address] [employer] Supervisor: Con Oseguera MD CBCon 07-11-2018 Erythrocyte distribution width (RBC) [Ratio] 18.8 % High 11.5-14.9 [facility] Comment on above: Performed By: #### C BC #### [facility] [place] [address] [employer] Supervisor: Con Oseguera MD Hematocrit (Bld) [Volume fraction] 23.1 % Low 41-53 [facility] Comment on above: Performed By: #### C BC #### [facility] [address] [place] [address] [employer] Supervisor: Con Oseguera MD Hemoglobin (Bld) [Mass/Vol] 7.0 g/dL Critically low 13.5-17.5 [facility] Comment on above: Performed By: #### C BC #### [facility] [address] [place] [address] [employer] Supervisor: Con Oseguera MD MCH (RBC) [Entitic mass] 21.3 pg Low 26-34 [facility] Comment on above: Performed By: #### C BC #### [facility] [address] [place] [address] [employer] Supervisor: Con Oseguera MD MCHC (RBC) [Mass/Vol] 30.1 g/dL Low 31-37 [facility] Comment on above: Performed By: #### C BC #### [facility] [address] [place] [address] [employer] Supervisor: Con Oseguera MD MCV (RBC) [Entitic vol] 70.8 fL Low 80-100 [facility] Comment on above: Performed By: #### C BC #### [facility] [address] [place] [address] [employer] Supervisor: Con Oseguera MD Platelet mean volume (Bld) [Entitic vol] 8.8 fL Normal 6.0-12.0 [facility] Comment on above: Performed By: #### C BC #### [facility] [address] [facility] [place] [address] [employer] Supervisor: Con Oseguera MD Platelets (Bld) [#/Vol] 484 10*3/uL High 150-450 [facility] Comment on above: Performed By: #### C BC #### [facility] [address] [place] [address] [employer] Supervisor: Con Oseguera MD RBC (Bld) [#/Vol] 3.26 10*6/uL Low 4.5-5.9 [facility] Comment on above: Performed By: #### C BC #### [facility] [address] [facility] [place] [address] [employer] Supervisor: Con Oseguera MD WBC (Bld) [#/Vol] 10.6 10*3/uL Normal 3.5-11.0 [facility] Comment on above: Performed By: #### C BC #### [facility] [address] [facility] [place] [address] [employer] Supervisor: Con Oseguera MD NRBC Automated NOT REPORTED Normal [facility] Comment on above: Performed By: #### C BC #### [facility] [address] [facility] [place] [address] [employer] Supervisor: Con Oseguera MD Vital Signs Date Time Vital Sign Value Performing Clinician Megan chauhan 09-13-2023 09:22-0400 Blood Pressure Location SANDYJESSICA CESAR [facility] 09-13-2023 09:22-0400 Body temperature 98.42 [degF] SANDY ARSENIO [facility] 09-13-2023 09:22-0400 Diastolic blood pressure 52 mm[Hg] SANDY ARSENIO [facility] 09-13-2023 09:22-0400 Heart rate 72 /min SANDY ARSENIO [facility] 09-13-2023 09:22-0400 Respiratory rate 16 /min SANDY ARSENIO [facility] 09-13-2023 09:22-0400 Systolic blood pressure 111 mm[Hg] SANDY ARSENIO [facility] 09-06-2023 10:24-0400 Blood Pressure Location SANDY ARSENIO [facility] 09-06-2023 10:24-0400 Body temperature 98.6 [degF] SANDY ARSENIO [facility] 09-06-2023 10:24-0400 Diastolic blood pressure 78 mm[Hg] SANDY ARSENIO [facility] 09-06-2023 10:24-0400 Heart rate 84 /min SANDY ARSENIO [facility] 09-06-2023 10:24-0400 Systolic blood pressure 124 mm[Hg] SANDY ARSENIO [facility] 03-27-2019 17:01-0400 BMI (Body Mass Index) 27.46 kg/m2 Josh Faith [facility], [place] 03-27-2019 17:01-0400 Body Temperature 97.7 [degF] [place] [facility], [place] 03-27-2019 17:01-0400 Body weight 72.58 kg [facility] , [place] 03-27-2019 17:01-0400 BP Diastolic 58 mm[Hg] [facility] , [place] 03-27-2019 17:01-0400 BP Systolic 142 mm[Hg] [facility] , [place] 03-27-2019 17:01-0400 Height 162.6 cm [facility] , [place] 03-27-2019 17:01-0400 Pulse (Heart Rate) 51 /min [facility], [place] 03-27-2019 17:01-0400 Pulse Oximetry 100 % [facility] , [place] 03-27-2019 17:01-0400 Respiratory Rate 14 /min [facility], [place] 03-16-2019 01:33-0400 BMI (Body Mass Index) 23.68 kg/m2 [facility], [place] 03-16-2019 01:33-0400 Body Temperature 98.01 [degF] Javier [facility], [place] 03-16-2019 01:33-0400 Body weight 74.84 kg [facility] , [place] 03-16-2019 01:33-0400 BP Diastolic 70 mm[Hg] [facility] , [place] 03-16-2019 01:33-0400 BP Systolic 145 mm[Hg] [facility] , [place] 03-16-2019 01:33-0400 Height 177.8 cm [facility] , [place] 03-16-2019 01:33-0400 Pulse (Heart Rate) 100 /min [facility], [place] 03-16-2019 01:33-0400 Pulse Oximetry 97 % [facility] , [place] 03-16-2019 01:33-0400 Respiratory Rate 16 /min [facility], [place] 03-13-2019 15:00-0400 Pulse [facility]ximetry 95 % [facility] [place] 03-13-2019 15:00-0400 Respiratory Rate 16 /[facility] [place] 03-13-2019 12:07-0400 Body Temperature 97.3 [degF] [facility] [place] 03-13-2019 12:07-0400 BP Diastolic 54 mm[facility]Hg] [facility] [place] 03-13-2019 12:07-0400 BP Systolic 119 mm[Hg] [facility] [place] 03-13-2019 12:07-0400 Pulse (Heart Rate) 73 /min [facility] [place] 03-12-2019 06:00-0400 BMI (Body Mass Index) 22.24 kg/m2 [facility] [place] 03-12-2019 06:00-0400 Body weight 70.3 [facility] [place] 03-08-2019 07:02-0400 Height 177.8 cm Wolfgang [facility], [place] Encounters Encounter Date Encounter Type Care Provider Facility Start: 10-10-2023 ambulatory SANDY E ARSENIO Facili ty:[facility] Start: 09-15-2023 ambulatory SANDY E ARSENIO Facili ty:[facility] Start: 09-13-2023 End: 09-14-2023 ambulatory SANDY E ARSENIO Facility:[facility] Start: 09-13-2023 End: 09-13-2023 Patient encounter procedure SANDY Susy ARSENIO [facility] Start: 09-06-2023 End: 09-07-2023 ambulatory SANDY E ARSENIO Facility: [place] Start: 09-06-2023 End: 09-06-2023 Patient encounter procedure SANDY E ARSENIO [facility] Start: 08-01-2023 Clinisync Result Encounter Waldemar Orta MD Work Phone: [facility] External Department Unsolicited Start: 08-01-2023 Clinisync Result Encounter Waldemar Orta MD Work Phone: [facility] External [facility] Unsolicited Start: 06-23-2023 ambulatory SANDY ARSENIO Facility : [place] Start: 03-27-2019 End: 03-27-2019 Emergency department patient visit [facility] Start: 03-27-2019 End: 03-27-2019 Emergency department patient visit Josh Hess Work Phone: [facility] ED Comment on above: Acute kidney injury (HCC) (Primary Dx) Start: 03-16-2019 End: 03-16-2019 Emergency department patient visit JAVIER DEVRIES [facility] Start: 03-16-2019 End: 03-16-2019 Emergency department patient visit Javier Devries Work Phone: [facility] ED Comment on above: Acute urinary retent ion (Primary Dx) Start: 03-07-2019 End: 03-13-2019 Evaluation and management of inpatient [facility] Start: 03-07-2019 End: 03-13-2019 Evaluation and management of inpatient Wolfgang Abhi Ruiz Work Phone: [facility] Med Surg Comment on above: VANESA (acute kidney in jury) (HCC) (Primary Dx); Pneumonia due to organism; Acute cystitis without hematuria Start: 12-10-2018 End: 12-13-2018 Evaluation and management of inpatient [facility] Start: 11-03-2018 End: 11-04-2018 Patient encounter procedure REBECA ORELLANA [facility] Start: 10-23-2018 End: 10-24-2018 Patient encounter procedure LEOBARDO JUAREZ [facility] Start: 10-12-2018 End: 10-13-2018 Patient encounter procedure ELIZABETH K [facility] Start: 09-28-2018 End: 09-29-2018 Patient encounter procedure ELIZABETH Alonso [facility] Start: 09-20-2018 End: 09-21-2018 Patient encounter procedure ELIZABETH Alonso [facility] Start: 09-07-2018 End: 09-08-2018 Patient encounter procedure ELIZABETH Alonso [facility] Start: 08-31-2018 End: 09-01-2018 [facility] Start: 08-21-2018 End: 08-24-2018 Patient encounter procedure SHARIFA N PANGULUR [facility] Start: 08-16-2018 End: 08-17-2018 Patient encounter procedure [facility] Start: 07-11-2018 End: 07-12-2018 Patient encounter procedure SHARIFA N PANGULUR [facility] Procedures Date Procedure Procedure Detail Performing [...] SHARIFA PANGULUR Start: 03-13-2019 NEBULIZER TX INTERMITTENT SHARFIA PANGU LUR Start: 03-13-2019 Glucose blood reagent [...] SHARIFA PANGULUR Start: 03-10-2019 Comprehensive metabolic panel SHAIRFA PANGULUR Start: 03-10-2019 Drug screen quantitative digoxin [...] Start: 03-10-2019 Glucose blood reagent strip Talia Koryee R obinson Work Phone: Start: 03-10-2019 INTAKE [...] SHARIFA PANGULUR Start: 03-09-2019 NEBULIZER TX INTERMITTENT SHRAIFA PANGU LUR Start: 03-09-2019 Glucose blood reagent [...] 03-08-2019 End: 03-08-2019 Glucose blood reagent strip Talai hansen Work Phone: Start: 03-08-2019 BASIC METABOLIC [...] REASON FOR NOT SELECTING BASAL INSULIN SHARIFA MEÍJALUR Start: 03-07-2019 TOBACCO CESSATION EDUCATION SHARIFA CHILDERSLUR [...] 03-07-2019 Glucose blood reagent strip Wolfgang Moe Mercatusangella [employer] Work Phone: Start: 03-07-2019 Culture bacterial quanttative colony count urine Wolfgang Moe [employer] Work Phone: Start: 03-07-2019 Ct abdomen & [...] dev cleared fda spec home use SHARIFA MJEÍALUR Start: 12-12-2018 Glucose blood reagent strip SHARIFA [...] 12-10-2018 REASON FOR NO MECHANICAL VTE PROPHYLAXIS HSARIFA MEJÍALUR Start: 12-10-2018 VITAL SIGNS SHARIFA MEJÍALUR [...] Start: 03-13-2020 Creatinine monitoring Creatinine mon itoring [place], [place] Start: 03-13-2020 Potassium monitoring Potassium monit oring [place], [place] Start: 09-05-2019 A1C test (Diabetic o r Prediabetic) A1C test (Diabetic or Prediabetic) [place], [place] Start: 06-27-2019 DTaP/Tdap/Td vaccine (1 - Tdap) DTaP/Tdap/Td vaccine (1 - Tdap) [place], [place] Comment on above: Postponed from 03/25 (Insurance / Financial) Start: 04-20-2019 End: 04-20-2019 Office Visit 04/20/2019 Office Visit Urology Bryant Eller MD [address] [place] [address] [phone] [facility] [place] Start: 02-25-2019 Influenza vaccination Flu vaccine (# 1) [place], [place] Start: 11-22-2018 Annual Wellness Visi t (AWV) [facility] Start: 11-30-2017 [object Object] [facility] Start: 05-28-2017 Lipid screen [facility] Start: 05-26-2016 Diabetic retinal exam Diabetic retin al exam [facility] Start: 03-22-2016 Shingles Vaccine (2 of 3) Shingles Vaccine (2 of 3) [place], [place] Basic Metabolic Pane l w/ Reflex to MG Basic Metabolic Panel w/ Reflex to MG Lab Routine Daily until discontinued starting 03/08/2019, 6 completed [place] Comment on above: Daily until disconti nued starting 03/08/2019, 6 completed HHN Treatment HHN Treatment Respiratory Care Routine Every 4hr while awake until discontinued starting 03/08/2019 [place] Comment on above: Every 4hr while awak e until discontinued starting 03/08/2019 Initiate Oxygen Ther apy Protocol Initiate Oxygen Therapy Protocol Respiratory Care Routine Daily until discontinued starting 03/07/2019 [place] Comment on above: Daily until disconti nued starting 03/07/2019 POCT glucose [place], [place] Comment on above: 4X Daily (AC & HS) u ntil discontinued starting 03/08/2019 As Needed until disc ontinued starting 03/07/2019 Immunizations Immunization Date Immunization Notes Care Provider Richar crawley 03-10-2020 influenza virus vaccine, unspecified formulation SANDY CESAR [facility] Comment on above: Result Comment: 2023: VIS DATE: 02/08/2019 04-27-2019 influenza, unspecifi ed formulation SANDY CESAR [facility] Comment on above: Result Comment: 2023: EXTERNAL ADMIN: PT RPT 03-10-2018 influenza virus vaccine, unspecified formulation SANDY CESAR [facility] Comment on above: Result Comment: 2023: VIS DATE: 01/31/2015 03-10-2018 influenza, injectabl e, quadrivalent, preservative free [facility] 02-22-2017 influenza virus vaccine, unspecified formulation SANDY CESAR [facility] Comment on above: Result Comment: 2023: VIS DATE: 01/31/2015 02-22-2017 influenza, injectabl e, quadrivalent, contains preservative [facility] 10-01-2016 pneumococcal conjuga te vaccine, 13 valent [facility] 04-01-2016 influenza, injectabl e, quadrivalent, contains preservative [facility] 01-26-2016 zoster vaccine, live [facility] 01-02-2016 zoster vaccine, live [facility] 05-26-2015 influenza virus vaccine, unspecified formulation [facility] 05-27-2014 pneumococcal polysaccharide vaccine, 23 valent [facility] 05-10-2013 influenza virus vaccine, unspecified formulation [facility] 05-11-2012 influenza virus vaccine, unspecified formulation [facility] 06-10-2011 influenza virus vaccine, unspecified formulation [facility] 05-19-2010 influenza virus vaccine, unspecified formulation [facility] 04-17-2004 influenza virus vaccine, unspecified formulation SANDY CESAR [facility] 06-24-2003 pneumococcal polysaccharide vaccine, 23 valent SANDY CESAR [facility] 04-24-2003 pneumococcal polysaccharide vaccine, 23 valent SANDY CESAR [facility] 12-21-2000 hepatitis B vaccine, adult dosage SANDY CESAR [facility] 07-06-2000 hepatitis B vaccine, adult dosage SANDY CESAR [facility] 06-03-2000 hepatitis B vaccine, adult dosage SANDY CESAR [facility] Payers Date Payer Category Payer Unknown BC BCBS [id number] 2022-Present [phone] [address] [place] [address] [id number] 2015 Medicare BCBS MEDICARE AN THEM MEDIBLUE ESSENTIAL/PLUS xxxxxxxxxxxx 2015-Present [address] [address] [place] [address] xxxxxxxxxxxx [id number] 2015 Medicare [id number] 1935 Unknown [id number] 2.16.840.1.196430.3.579.2. 1935 Unknown [id number] 2.16.840.1.077713.3.579.2. 1935 Unknown [id number] 2.16.840.1.104945.3.579.2. 1935 Unknown [id number] 2.16.840.1.836623.3.579.2.176 1935 Unknown [id number] 2.16.840.1.208881.3.579.2.176 1937 Unknown [id number] 2.16.840.1.375013.3.579.2.176 1937 Unknown [id number] 2.16.840.1.604958.3.579.2.176 1937 Unknown [id number] 2.16.840.1.289681.3.579.2.176 1937 Unknown [id number] 2.16.840.1.923182.3.579.2.176 1937 Unknown [id number] 2.16.840.1.445789.3.579.2.176 1937 Unknown [id number] 2.16.840.1.589987.3.579.2.176 1937 Unknown [id number] 2.16.840.1.669931.3.579.2.176 1937 Unknown [id number] 2.16.840.1.394748.3.579.2.176 1937 Unknown [id number] 2.16.840.1.112357.3.579.2.176 1937 Unknown [id number] 2.16.840.1.941208.3.579.2.176 1937 Unknown [id number] 2.16.840.1.321811.3.579.2.176 1937 Unknown [id number] 2.16.840.1.999675.3.579.2.176 1937 Unknown [id number] 2.16.840.1.361371.3.579.2.727 1935 Unknown [id number] 2.16.840.1.413405.3.579.2.727 1935 Unknown [id number] 2.16.840.1.499356.3.579.2.727 Social History Date Type Detail Facility Start: 03-07-2019 End: 09-13-2023 Tobacco smoking status NHIS Former smoker [facility] End: 06-27-1967 History of tobacco use Current smoker [place], [place] Start: 03-07-2019 End: 03-16-2019 Cigarettes smoked current (pack per day) - Reported [place], [place] Start: 03-07-2019 End: 03-16-2019 Alcohol intake No [facility] Start: 01-06-2015 Tobacco Comment quit over 50 years a go [place], [place] Start: 1935 Sex Assigned At Not on file [place] [facility] smoking consumption unknown [facility] Functional Status Date Assessment Result Facility 09-13-2023 Functional Status N/A [facility] 09-06-2023 Functional Status N/A [facility] Discharge instructions 09-13-2023 Note Date & [...] Follow these instructions at home: Medicines Take mfeg-cyk-oaozgvu and prescription medicines only as told by [...] or the blood stops without treatment. Take jdpf-ery-ljwxdhq and prescription medicines only as told by your health care provider. Drink enough fluid to keep your urine pale yellow. This information is not intended to replace advice given to you by your health care provider. Make sure you discuss any questions you have with your health care provider. Document Revised: 02/11/2021 Document Reviewed: 02/11/2021 [employer] Patient Education 2022 [place]. Follow Up Care 09/07/2023 09:39:22 With:4 weeks [place] location for so wick JP Address:Unknown When: Unknown [facility] Discharge instructions 09-06-2023 Note [...] Follow these instructions at home: Medicines Take bwfu-yls-frdhqkq and prescription medicines only as told by [...] is important. Where to find more information [employer] Patients: www.aakp.org National Kidney Foundation: www.kidney.org [employer] Kidney [employer]: www.akfinc.org Life Options: www.lifeoptions.org Kidney [...] provider. Document Revised: 09/17/2020 Document Reviewed: 09/17/2020 [employer] Patient Education 2022 [employer]. Follow Up Care 09/06/2023 08:19:47 With:SANDY CESAR PA-C, URL Address: [address] [facility] [place] [address] When: Unknown Comments:schedule cath change once we have consent [facility] Evaluation + Plan note Note Date & Type Note Facility Evaluation + Plan note No data available for this section [facility] Evaluation + Plan note Note Date & Type Note Facility Evaluation + Plan note Future Appointments Appointment Date:10/10/2023 01:40:00 PM Scheduled Provider:SANDY CESAR PA-C Location:[facility] [place] Appointment Type:URO Office Visit [facility] Progress note Note Date & Type Note Facility Progress note No data available for this section [facility] Discharge Instructions * Discharge Instr - [...] Agent's Name Healthcare Agent's Phone Number 03/07/19 [phone] Yes, patient has an advance directive for healthcare treatment Admitting Physician: Talia Pastor MD PCP: Talia Pastor MD Discharging Nurse: Anca HOFFMANN Discharging Hospital Unit/Room#: 2043/2043-01 Discharging Unit Emergency Contact: Extended Emergency Contact Information Primary Emergency Contact: Alvin Neville Relation: Child Secondary Emergency Contact: Aleksandra Neville [facility] Mobile Relation: None Past Surgical [...] and older Afluria) 03/10/2018 Pneumococcal Conjugate 13-valent (Huavrsz66) 10/01/2016 Pneumococcal Polysaccharide (Splzvoaji41) 05/27/2014 Zoster Live (Zostavax) 01/02/2016, 01/26/2016 Active Problems: Patient Active Problem List Diagnosis Code Benign essential hypertension I10 Renal cyst N28.1 SVT (supraventricular tachycardia) ([facility]) I47.1 Uncontrolled type 2 diabetes mellitus without complication, with long-term current use of insulin ([facility]) E11.65, Z79.4 Atrial fibrillation ([facility]) I48.91 Hx of simple renal cyst Z87.448 Body mass index (BMI) of 23.0-23.9 in adult Z68.23 Hypomagnesemia E83.42 Diverticulosis K57.90 Acute blood loss anemia D62 CHF with cardiomyopathy ([facility]) I50.9, I42.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 Chronic diastolic heart failure, NYHA class 2 ([facility]) I50.32 CKD (chronic kidney disease) stage 3, GFR 30-59 ml/min ([facility]) N18.3 Hypercholesteremia E78.00 Mild pulmonary hypertension [...] Wt 150 lb 9.2 oz (68.3 kg) RqM774% BMI 21.61 kg/m Last documented pain score (0-10 scale): Pain Level: 3 Last Weight: Wt Readings from Last 1 Encounters: 03/09/19 150 lb 9.2 oz (68.3 kg) Mental Status: oriented and alert IV Access: - None Nursing Mobility/ADLs: Walking Assisted Transfer Assisted Bathing Assisted Dressing Assisted Toileting Assisted Feeding Assisted Filling And Stapling Machine Operator Assisted Med Delivery whole Wound Care Documentation [...] only, NOT a DME order): Other Treatments: fdc assessment, medication education and monitoring, resume previous orders Patient's personal belongings (please select all that are sent with patient): None RN SIGNATURE: MANAGEMENT/SOCIAL WORK SECTION Inpatient Status Date: 03/07/2019 Readmission Risk Assessment Score: Readmission Risk Risk of Unplanned Readmission: 19 Discharging to Facility/ Agency Name: [facility] ([facility] called [facility]) Address: [address] [facility] [address] asset coordinator crystal [phone] Fax: Propellant Charge Loader/Talent Coordinator signature: ICIAN SECTION Prognosis: Guarded Condition at Discharge: Stable Rehab Potential (if transferring to Rehab): Guarded Recommended Labs or Other Treatments After Discharge: Physician Certification: I certify the above information and transfer of Juan Ramon Neville is necessary for the continuing treatment of the diagnosis listed and that he requires [facility] Facility for less 30 days. Update Admission [...] medications. --- Having trouble affording medications? Try [facility]! (This is not a hospital endorsed website, merely a recommendation based on my own personal experiences with [employer]) --- Questions? Contact me anytime. Javier Devries MD, JAYSON --- --- * Attachments The following attachments cannot be sent through Care Everywhere. * Urinary Retention (Slovak) documented in this encounter History of Present [...] Donald OTA - 03/12/2019 10:40 AM EDT [facility] OCCUPATIONAL THERAPY MISSED TREATMENT NOTE INPATIENT [...] in the note per my discussion with HOROLOGIST * Talia Pastor MD - 03/11/2019 1:42 [...] solution 2.5 mg 2.5 mg Nebulization Q4H PR Talia Pastor MD 2.5 mg at 03/11/19 [...] in the note per my discussion with HOROLOGIST * Andrew Duncan MD - 03/11/2019 11:25 AM EDT [facility] Physicians Cardiology (PPC) Progress Note 03/11/2019 [...] Subcutaneous Nightly albuterol 2.5 mg Nebulization Q4H PR sodium chloride flush 10 mL Intravenous 2 [...] 03/10/2019 11:46 AM EDT Physical Therapy Facility/Department: [facility] Daily Treatment Note NAME: [...] and corrected by editing. ANDREW DUNCAN MD [facility] * Talia Pastor MD - [...] solution 2.5 mg 2.5 mg Nebulization Q4H PR Talia Pastor MD 2.5 mg at 03/10/19 [...] Problem: Pneumonia Active Problems: SVT (supraventricular tachycardia) ([facility]) Benign essential hypertension Uncontrolled type 2 [...] of care discussed with Dr Bart HUERTA, STUDIO HAND - PT SKILLED REASON FOR VISIT: Pl effusion, dyspnea I examined the patient myself The assessment and Plan in the note per my discussion with HOROLOGIST * Andrew Duncan MD - 03/09/2019 5:32 PM [facility]T [facility] Progress Note 03/09/2019 [...] and corrected by editing. ANDREW DUNCAN MD [facility] * Dayan Ledbetter, PT - 03/09/2019 3:33 PM EDT Physical Therapy REVISED GOALS [facility] Date: 03/09/19 Patient Name: Juan Ramon Neville Room: Account: [id number] : 1935 (83 y.o.) Gender: male 03/09/19 [...] w/ CGA x 1 * Megan Jackson, LOGISTICS LOSS PREVENTION MANAGER - 03/09/2019 12:31 PM EDT Physical Therapy [facility] Physical Therapy Progress Note Date: 03/09/19 Patient Name: Juan Ramon Neville Room: Account: [id number] : 1935 (83 y.o.) Gender: male Discharge [...] states pt had been using O2 at [facility], walking with RW (had Rollator at home for 1 wk before pt developed PNA, admitted to [facility]); CHF is at point where fluid [...] exercises 1: Seated B LE ther ex, AROM/[place] resistance band, 15x each Other exercises 2: [...] Lagunas, OT - 03/09/2019 10:56 AM EDT [facility] Occupational Therapy Evaluation Date: 03/09/19 Patient Name: Juan Ramon Neville Room: Account: [id number] : 1935 (83 y.o.) Gender: male Discharge [...] Assistance: Independent(uses RW) Transfer Assistance: Independent Active Mess Attendant Crew: Yes Mode of Transportation: Car Occupation: Retired Additional Comments: Pt and Pt's daughter report that he has been at [facility] since Mid-December. Pt has been receiving PT/OT [...] Patient Tolerated treatment well Functional Outcome Measures [facility] Daily Activity Inpatient How much [...] much help for eating meals?: A Little [facility] Inpatient Daily Activity Raw Score: 18 [facility] Inpatient ADL T-Scale Score : 38.66 ADL Inpatient CMS 0-100% Score: 46.65 ADL Inpatient [facility] G-Code Modifier : CK Goals Patient [...] Subcutaneous Nightly albuterol 2.5 mg Nebulization Q4H PR sodium chloride flush 10 mL Intravenous 2 [...] ABGs: No results for input(s): PHART, PO2ART, MMF2IMP, BJM4VKO, BEART, F6QUBTCW, EQI6XUL in the last 72 hours. PT/INR: No [...] solution 2.5 mg 2.5 mg Nebulization Q4H PR Talia Pastor MD 2.5 mg at 03/09/19 [...] PM EDT SW spoke to Crystal from [facility]. She will start the pre-cert for pt's return to facility. * Dayan Ledbetter, PT - 03/08/2019 9:39 AM EDT Physical Therapy Facility/Department: [facility] Initial Assessment NAME: Juan [...] walker- up independently) Transfer Assistance: Independent Active Mess Attendant Crew: Yes Mode of Transportation: Car Occupation: Retired [...] bed, Nurse notified(nurse Cavazos) G-Code OutComes Score [facility] Score [facility] Inpatient Mobility Raw Score : 8 (03/08/19849) [facility] Inpatient T-Scale Score : 28.52 (03/08/19849) Mobility Inpatient [facility] 0-100% Score: 86.62 (03/08/19849) Mobility Inpatient [facility] G-Code Modifier : CM (03/08/19849) Goals [...] noted at this time * Michelle Mei [facility] - 03/07/2019 8:49 PM EDT Medication [...] facility list. Thank you, Michelle Mei PharmD, [facility] [phone] documented in this encounter* Michelle Mei RPH - 03/27/2019 6:32 PM EDT Medication History completed: New medications: none Medications discontinued: none Changes to dosing: Fenofibrate changed to nightly Furosemide changed to twice daily Potassium chloride changed to ER tablet formulation Stated allergies: As listed Other pertinent information: Medications confirmed with facility list. Thank you, Michelle Mei PharmD, [facility] [phone] documented in this encounter Assessments Diagnosis Pneumonia- Primary Pneumonia, organism unspecified VANESA (acute kidney injury) ([facility]) Acute kidney failure, unspecified Pneumonia due to organism Pneumonia due to other specified organism Acute cystitis without hematuria Acute cystitis Atrial fibrillation ([facility]) Atrial fibrillation Benign essential hypertension Essential hypertension, benign Chronic diastolic heart failure, NYHA class 2 ([facility]) Chronic diastolic heart failure CKD (chronic kidney disease) stage 3, GFR 30-59 ml/min ([facility]) Chronic kidney disease, Stage III (moderate) CHF with cardiomyopathy ([facility]) Congestive heart failure, unspecified 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 Mild pulmonary hypertension (HCC) Other chronic pulmonary heart diseases SVT (supraventricular tachycardia) ([facility]) Other specified cardiac dysrhythmias Uncontrolled type 2 diabetes mellitus without complication, with long-term current use of insulin ([facility]CC) Urinary retention due to benign prostatic hyperplasia Diagnosis Acute kidney injury (HCC)- Primary Acute kidney failure, unspecified Diagnosis Acute urinary retention- Primary Other specified retention of urine Advance Directives No Advanced Directives Records FoundDocuments on File Type Date Recorded Patient Property Site Manager Expl anation Advance Directives and Livin g Will 03/07/2018 9:31 AM [facility] Advance Directives and Livin g Will 01/09/2015 10:42 AM Power of Supervisor Type Photography Power of Supervisor Type Photography 01/09/2015 10:42 AM Latest Code Status on [...] To Contact Diagnoses Pneumonia Talia Pastor MD [address] [address] [facility] Reason Comments Abnormal Lab Creatinine: 2.83 Reason Comments Urinary Retention (unrecognized sect ion and content) No Status Records FoundNo Status Records Found INFORMATION SOURCE (unrecogn ized section and content) DATE CREATED AUTHOR 03/28/2019 [facility] DATE CREATED AUTHOR AUTHOR'S ORGANIZ ATION 09/15/2023 [facility] Patient Care team informatio n (unrecognized section and content) Personnel Name: WALDEMAR ORTA MD Address: Address: [address] [place] [address] Personnel Name: WALDEMAR ORTA MD Address: Address: [address] [place] [address] FOR RECORDS PERTAINING TO PATIENTS WHO ARE [...] BE BASED ON THE PRIMARY CLINICAL RECORDS. [facility]. provides no warranty or guarantee of the accuracy or completeness of information in this document.
[2023-10-07 09:29] LABS: Alanine Aminotransferase 34 U/L (16-63); Albumin Globulin Ratio 0.8; Albumin Level 2.7 g/dL (3.4-5.0); Alkaline Phosphatase 47 U/L (46-116); Anion Gap 16.8; Aspartate Amino Transferase 43 U/L (15-37); BUN Creatinine Ratio 28.5; Bilirubin Total 0.5 mg/dL (0.2-1.0); Calcium 9.4 mg/dL (8.5-10.1); Carbon Dioxide 23.3 mmol/L (21.0-32.0); Chloride 110 mmol/L (98-107); Estimated GFR (African America 24 (>=60); Estimated GFR (Non-African Ame 20 (>=60); Globulin 3.6 g/dL; Glucose 60 mg/dL (74-106); Potassium 5.1 mmol/L (3.5-5.1); Sodium 145 mmol/L (136-145); Total Protein 6.3 g/dL (6.4-8.2)
== END 2023-10-07 02:58 | disposition home or self-care (01) ==
LOC: LAB 02:57
PROVIDERS: Visit Provider Family Medicine
DX: R41.82 Altered mental status, unspecified (principal); I50.32 Chronic diastolic (congestive) heart failure
CPT/HCPCS: 36415; 80053

== ENCOUNTER 2023-10-10 04:41 | Outpatient (REF) | payer MEDICARE, SELFPAY ==
--- OUTSIDE RECORDS SUMMARY | 2023-10-10 04:47 | XMS_ITS | CCD ---
Author Organization [facility] Care Team Providers Care Enologist Name Role Phone Dawit Talia Stipe Primary [...] Reaction(s) Facility (3 sources) diphenhydrAMINE Drug Allergy [address] [place] [address] (2 sources) diphenhydrAMINE; Translations: [diphenhydramine] Drug Allergy [facility] (1 source) No Known Medication Allergies; Translations: [No Known Medication Allergies] Propensity to adverse reactions (disorder) [facility] Repository Medications Current Medications Medication Drug [...] mg oral capsule (1 source) Antiarrhythmic, Uncompetitive E-vwevxv-O-aspartate Receptor Antagonist, Cytochrome P450 2D6 Inhibitor, Sigma-1 [...] (3 sources) Start: 03-07-2019 15 g, Oral, IN N, Low blood sugar, Starting Tue03/07/19 at [...] (5 sources) Start: 09-13-2023 Potassium Chlo ride (Tfm-Favv-Avy M20) 20 mEq oral tablet, extended release [...] Range Facility Lab Reportson 09-14-2023 Lab Reports [id number] #1.00TIFF Normal [facility] Ambulatory Visit Summaryon 0 09-13-2023 Ambulatory [...] 30 mg Tab) potassium chloride (Potassium Chloride (Lgy-Rvjk-Cqj M20) 20 mEq oral tablet, extended release) [...] 0 Refill(s) Unchanged potassium chloride (Potassium Chloride (Nut-Dtla-Zzf M20) 20 mEq oral tablet, extended release) [...] for choosing us for your care. Normal [facility] Lab Reportson 09-13-2023 Lab Reports [id number] #1.00TIFF Normal [facility] Skilled Nursing Recordson 09-12 Skilled Nursing Records [id number] #1.00TIFF [facility] Patient Educationon 09-13-19 Patient Education Urology Hematuria, [...] these instructions at home: Medicines ? Take iikw-dwa-bcjbteg and prescription medicines only as told by [...] the blood stops without treatment. ? Take bjje-wfu-atzezns and prescription medicines only as told by your health care provider. ? Drink enough fluid to keep your urine pale yellow. This information is not intended to replace advice given to you by your health care provider. Make sure you discuss any questions you have with your health care provider. Document Revised: 02/11/2021 Document Reviewed: 02/11/2021 [employer] Patient Education ? 2022 [employer]. [facility] Transfer Inon 09-13-2023 Transfer In [id number] #1.00TIFF [facility] Urology Office/Clinic Noteon 09-13-2023 Urology Office/Clinic Note Chief Complaint Pt here today for cath change HPI Staff Dementia pt is here today for a catheter change. Resident @ [facility]. *Finasteride 5mg and Flomax 2 caps/day [...] Last documented cath change per Urology in [place] notes was 04/15/23 (16fr coude) Review of [...] records: retention dx'd in ER August 2022. perdoza placed. enlarged prostate noted on multiple CTs. uro discussed void trial/prostate procedure. family declined. has been having q1mo pedroza changes since then. Ordered: Body Mass Index (BMI) documented 3008F Current tobacco non-user 1036F Depression Screening Negative 3352F Discharge medications reconciled with current medications in outpatient record 1111F E&M of Est. Patient Low 20-29 Min 24712 Influenza immunization status assessed 1030F Insertion of temp indwelling bladder cath, fractured cath, altered anatomy, complicated 34187 Medication list documented in medical record 1159F [...] E&M of Est. Patient Low 20-29 Min 95004 Insertion of temp indwelling bladder cath, fractured cath, altered anatomy, complicated 73272 3. Gross hematuria (R31.0: Gross hematuria) with removal of previous pedroza. likely due to encrustation as this pedroza has been in place >3 mos. advised ECF may see hematuria in pedroza for next few days. increase fluids. ok as long as it's draining. Ordered: E&M of Est. Patient Low 20-29 Min 03370 Insertion of temp indwelling bladder cath, fractured cath, altered anatomy, complicated 25341 4. 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 Patient Low 20-29 Min 47896 5. Paraphimosis (N47.2: Paraphimosis) review of external records: did have 1 episode of paraphimosis previously foreskin pulled back for procedure and replaced appropriately after pedroza inserted. Ordered: E&M of Est. Patient Low 20-29 Min 96332 Follow-up With When Contact Information 4 weeks [place] location for pedroza change w LIDA Additional [...] 40 mg (more content not included)... Normal [facility] Comment on above: Result Comment: Elec tronically Signed By: SANDY CESAR PA-C\.br\Date and Time Signed: 09/13/23 10:17 EDT Transfer Inon 09-08-2023 Transfer In [id number] #1.00TIFF Normal [facility] Transfer In [id number] #1.00TIFF Rojelio Ballesteros [facility] Ambulatory Visit Summaryon 0 09-06-2023 Ambulatory Visit [...] SANDY CESAR PA-C, URL When: Where: [address] [facility] [place] [address] Medications What When Instructions Unchanged alprazolam (alprazolam [...] you for choosing us for your care. [facility] Auth for Release of Medical Recordson 09-06-2023 Auth for Release of Medical Records [id number] #1.00TIFF [facility] Insurance Correspondence Off iceon 09-06-2023 Insurance Correspondence Office [id number] #1.00TIFF [facility] Skilled Nursing Recordson 09-05 Skilled Nursing Records [id number] #1.00TIFF [facility] Patient Correspondenceon Patient Correspondence [id number] #1.00TIFF [facility] Patient Educationon 09-06-19 Patient Education Nephrology Chronic [...] these instructions at home: Medicines ? Take hvji-qwh-kxzrgvz and prescription medicines only as told by [...] ask your (more content not included)... 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 [facility]to confirm the plan but went straight to voicemail. did leave message w [place] phone # requesting he call. once we can confirm consent we will need to r/s pt for ov for pedroza change. may be difficult due to encrustation since current pedroza seems to have been in at least a few months. per PCP note - daughter was flushing cath once weekly w 10ml syringes provided by urology office. [facility] staff state they have been flushing it in house. Ordered: E&M of New Patient High 60-74 Min 77490 2. BPH with urinary obstruction (N40.1: Benign prostatic hyperplasia with lower urinary tract symptoms) on finasteride 5mg and flomax 2 caps/day per AUG Ordered: E&M of New Patient High 60-74 Min 40651 3. Frequent UTI (N39.0: Urinary tract infection, site not specified) on Augmentin x7d Apr 2023 (no cx for review) cx 08/24/23 - serratia 100k, e coli 100kon Cipro x7d 08/26-09/02 per ECF staff gets UTIs all the time Ordered: E&M of New Patient High 60-74 Min 42125 4. History of Clostridium difficile infection (Z86.19: Personal history of other infectious and parasitic diseases) October 2022 per former PCP notes. PCP gave 5d oral vanco for c.diff prophylaxis w acute UTI tx in Apr 2023. Ordered: E&M of New Patient High 60-74 Min 07708 5. Dementia (F03.90: Unspecified dementia, unspecified severity, without behavioral disturbance, psychotic disturbance, mood disturbance, and anxiety) per PMH. pt is poor historian, minimal responses. Ordered: E&M of New Patient High 60-74 Min 97467 6. CKD (chronic kidney disease) stage 3, GFR 30-59 ml/min (N18.30: Chronic kidney disease, stage 3 unspecified) CKD stage 3 listed in PMH. CrCl 27 per PCP note 05/17/23. labs 08/05/23 - BUN 40, Welfare Officer 1.91, GFR 34 - CrCl 25 (without adjustment for height - unavailable) wt 146# per ECF vitals Ordered: E&M of New Patient High 60-74 Min 22001 Other obstructive and reflux uropathy (N13.8: Other obstructive and reflux uropathy) Total time spent reviewing previous notes/results/practice manager al documents, preparing the chart, conducting the encounter with the patient and family, ordering tests/medications, and documenting the encounter was 60 minutes. Follow-up With When Contact Information ARSENIO GUIDO, SANDY Jain, URL [address] [place] [address] Additional Instructions: schedule cath change once we [...] Family History Family history is unknown Normal [facility] Comment on above: Result Comment: Elec tronically Signed By: ARSENIO GUIDO, SANDY Jain\.br\Date and Time Signed: 09/06/23 12:18 EDT ALL AMMONIAon 08-01-2023 Ammonia (P) [Moles/Vol] 35 umol/L High 11 - 32 umol/L [facility] Interpretation and review of laboratory results Abnormal [facility] Healthcar e Basic Metabolic Panelon 10-0 Anion gap [Moles/Vol] 13 mmol/L 9 - 17 mmol/L [place] Bun/Cre Ratio NOT REPORTED [place], [place] Calcium [Mass/Vol] 9.3 mg/dL 8.6 - 10. 4 mg/dL [place] Chloride [Moles/Vol] 99 mmol/L 98 - 10 7 mmol/L [place] CO2 [Moles/Vol] 24 mmol/L 20 - 31 mmol/L [place] Creatinine [Mass/Vol] 2.75 mg/dL High 0.7 - 1.2 mg/dL [place] GFR 27 mL/min Low >60 [place] GFR Non- 22 mL/min Low >60 [place] GFR/1.73 sq M predicted among non-blacks MDRD (S/P/Bld) [Vol rate/Area] NOT REPORTED [place] GFR/1.73 sq M predicted among non-blacks MDRD (S/P/Bld) [Vol rate/Area] [place] Comment on above: Average GFR for 70 o r more years old: 75 mL/min/1.73sq m Chronic Kidney Disease: <60 mL/min/1.73sq m Kidney failure: <15 mL/min/1.73sq m eGFR calculated using average adult body mass. Additional eGFR calculator available at: http://www.[employer]/multiple_crcl_2012.htm Glucose [Mass/Vol] 92 mg/dL 70 - 99 mg/dL [place], [place] Interpretation and review of laboratory results Abnormal [place] Potassium [Moles/Vol] 5.2 mmol/L 3.7 - 5.3 mmol/L [place] Sodium [Moles/Vol] 136 mmol/L 135 - 144 mmol/L [place] Urea nitrogen [Mass/Vol] 61 mg/dL High 8 - 23 mg/dL [place] Basic Metabolic Profon 03-27 (cont.) Normal [facility] Comment on above: Result Comment: Aver age GFR for 70 or more years old: 75 mL/min/1.73sq m Chronic Kidney Disease: <60 mL/min/1.73sq m Kidney failure: <15 mL/min/1.73sq m eGFR calculated using average adult body mass. Additional eGFR calculator available at: http://www.[employer]/multiple_crcl_2012.htm Performed By: #### H H, BMP #### [facility] [address] [facility] [place] [address] Neon Tube Bender: Con Oseguera MD Anion gap [Moles/Vol] 13 mmol/L Normal 9-17 [facility] Comment on above: Performed By: #### H H, BMP #### [facility] [address] [facility] [place] [address] Neon Tube Bender: Con Oseguera MD Calcium [Mass/Vol] 9.3 mg/dL Normal 8.6-10.4 [facility] Comment on above: Performed By: #### H H, BMP #### [facility] [address] [place] [address] Neon Tube Bender: Con Oseguera MD Chloride [Moles/Vol] 99 mmol/L Normal 98-107 [facility] Comment on above: Performed By: #### H H, BMP #### [facility] [address] [place] [address] Neon Tube Bender: Con Oseguera MD CO2 [Moles/Vol] 24 mmol/L Normal 20-31 [facility] Comment on above: Performed By: #### H H, BMP #### [facility] [place] [address] Neon Tube Bender: Con Oseguera MD Creatinine [Mass/Vol] 2.75 mg/dL High 0.70-1.20 [facility] Comment on above: Performed By: #### H H, BMP #### [facility] [address] [place] [address] Neon Tube Bender: Con Oseguera MD GFR, Amer 27 mL/min Low >60 [facility] Comment on above: Performed By: #### H H, BMP #### [facility] [place] [address] Neon Tube Bender: Con Oseguera MD GFR,non Amer 22 mL/min Low >60 [facility] Comment on above: Performed By: #### H H, BMP #### [facility] [address] [place] [address] Neon Tube Bender: Con Oseguera MD Glucose [Mass/Vol] 92 mg/dL Normal 70-99 [facility] Comment on above: Performed By: #### H H, BMP #### [facility] [place] [address] Neon Tube Bender: Con Oseguera MD Potassium [Moles/Vol] 5.2 mmol/L Normal 3.7-5.3 [facility] Comment on above: Performed By: #### H H, BMP #### [facility] [address] [place] [address] Neon Tube Bender: Con Oseguera MD Sodium [Moles/Vol] 136 mmol/L Normal 135-144 [facility] Comment on above: Performed By: #### H H, BMP #### [facility] [address] [place] [address] Neon Tube Bender: Con Oseguera MD Urea nitrogen [Mass/Vol] 61 mg/dL High 8-23 [facility] Comment on above: Performed By: #### H H, BMP #### [facility] [address] [place] [address] Neon Tube Bender: Con Oseguera MD BUN/CRE Ratio NOT REPORTED Normal 9-20 [facility] Comment on above: Performed By: #### H H, BMP #### [facility] [address] [place] [address] Neon Tube Bender: Con Oseguera MD Staging: NOT REPORTED Normal [facility] Comment on above: Performed By: #### H H, BMP #### [facility] [address] [place] [address] Neon Tube Bender: Con Oseguera MD CBC Auto Differentialon 10-0 Basophils (Bld) [#/Vol] 0.08 10*3/uL [facility], [place] Basophils/100 WBC (Bld) 1 % 0 - 2 % [facility], [place] Differential Type NOT REPORTED [place] Eosinophils (Bld) [#/Vol] 0.39 10*3/uL [facility], [place] Eosinophils/100 WBC (Bld) 5 % High 0 - 4 % [place] Erythrocyte distribution width (RBC) [Ratio] 28.8 % High 11.5 - 14.9 % [place] Hematocrit (Bld) [Volume fraction] 33.5 % Low 41 - 53 % [place] Hemoglobin (Bld) [Mass/Vol] 10.5 g/dL Low 13.5 - 17.5 g/dL [place] Interpretation and review of laboratory results Abnormal [place] Lymphocytes (Bld) [#/Vol] 2.00 10*3/uL [place] Lymphocytes/100 WBC (Bld) 26 % 24 - 44 % [place] MCH (RBC) [Entitic mass] 23.6 pg Low 26 - 34 pg [place] MCHC (RBC) [Mass/Vol] 31.3 g/dL 31 - 37 g/dL M [place], [place] MCV (RBC) [Entitic vol] 75.4 fL Low 80 - 100 fL [place] Monocytes (Bld) [#/Vol] 0.69 10*3/uL [place] Monocytes/100 WBC (Bld) 9 % High 1 - 7 % [place] Morphology Theo (Bld) [Interp] 1+ ELLIPTOCYTES [place] Morphology Theo (Bld) [Interp] 1+ ECHINOCYTES [place] Morphology Theo (Bld) [Interp] ANISOCYTOSIS PRESENT [place], [place] Platelet mean volume (Bld) [Entitic vol] 8.9 fL 6 - 12 fL [place], [place] Platelets (Bld) [#/Vol] NOT REPORTED [place] Platelets (Bld) [#/Vol] 305 10*3/uL [place] RBC (Bld) [#/Vol] 4.44 10*6/uL Low 4.5 - 5.9 m/uL [place], [place] RBC morphology finding Nom (Bld) NOT REPORTED [place] Segmented neutrophils/100 WBC (Bld) 59 % 36 - 66 % [place] Segs Absolute 4.54 [place] WBC (Bld) [#/Vol] NOT REPORTED per 100 WBC [place] WBC (Bld) [#/Vol] 7.7 10*3/uL [place] WBC Morphology NOT REPORTED [place], [place] CBC with Diffon 03-27-2019 Abs. Basophil 0.08 k/uL Normal 0.0-0.2 [facility] Comment on above: Performed By: #### H H, BMP #### [facility] [address] [facility] [place] [address] Neon Tube Bender: Con Oseguera MD Abs.Neutrophil (Seg) 4.54 k/uL Normal 1.3-9.1 [facility] Comment on above: Performed By: #### H H, BMP #### [facility] [address] [facility] [place] [address] Neon Tube Bender: Con Oseguera MD Basophils/100 WBC (Bld) 1 % Normal 0-2 [facility] Comment on above: Performed By: #### H H, BMP #### [facility] [facility] [place] [address] Neon Tube Bender: Con Oseguera MD Eosinophils (Bld) [#/Vol] 0.39 10*3/uL Normal 0.0-0.4 [facility] Comment on above: Performed By: #### H H, BMP #### [facility] [facility] [place] [address] Neon Tube Bender: Con Oseguera MD Eosinophils/100 WBC (Bld) 5 % High 0-4 [facility] Comment on above: Performed By: #### H H, BMP #### [facility] [facility] [place] [address] Neon Tube Bender: Con Oseguera MD Lymphocytes (Bld) [#/Vol] 2.00 10*3/uL Normal 1.0-4.8 [facility] Comment on above: Performed By: #### H H, BMP #### [facility] [address] [place] [address] Neon Tube Bender: Con Oseguera MD Lymphocytes/100 WBC (Bld) 26 % Normal 24-44 [facility] Comment on above: Performed By: #### H H, BMP #### [facility] [address] [place] [address] Neon Tube Bender: Con Oseguera MD Monocytes (Bld) [#/Vol] 0.69 10*3/uL Normal 0.1-1.3 [facility] Comment on above: Performed By: #### H H, BMP #### [facility] [address] [place] [address] Neon Tube Bender: Con Oseguera MD Monocytes/100 WBC (Bld) 9 % High 1-7 [facility] Comment on above: Performed By: #### H H, BMP #### [facility] [address] [place] [address] Neon Tube Bender: Con Oseguera MD Morphology Theo (Bld) [Interp] ANISOCYTOSIS PRESENT Normal [facility] Comment on above: Result Comment: 1+ ELLIPTOCYTES 1+ ECHINOCYTES Performed By: #### H H, BMP #### [facility] [facility] [place] [address] Neon Tube Bender: Con Oseguera MD Neutrophil (Seg) 59 % Normal 36-66 [facility] Comment on above: Performed By: #### H H, BMP #### [facility] [place] [address] Neon Tube Bender: Con Oseguera MD Erythrocyte distribution width (RBC) [Ratio] 28.8 % High 11.5-14.9 [facility] Comment on above: Performed By: #### H H, BMP #### [facility] [address] [facility] [place] [address] Neon Tube Bender: Con Oseguera MD Hematocrit (Bld) [Volume fraction] 33.5 % Low 41-53 [facility] Comment on above: Performed By: #### H H, BMP #### [facility] [facility] [place] [address] Neon Tube Bender: Con Oseguera MD Hemoglobin (Bld) [Mass/Vol] 10.5 g/dL Low 13.5-17.5 [facility] Comment on above: Performed By: #### H H, BMP #### [facility] [address] [place] [address]. [place] [address] Neon Tube Bender: Con Oseguera MD MCH (RBC) [Entitic mass] 23.6 pg Low 26-34 [facility] Comment on above: Performed By: #### H H, BMP #### [facility] [facility] [place] [address] Neon Tube Bender: Con Oseguera MD MCHC (RBC) [Mass/Vol] 31.3 g/dL Normal 31-37 [facility] Comment on above: Performed By: #### H H, BMP #### [facility] [address] [place] [address]. [place] [address] Neon Tube Bender: Con Oseguera MD MCV (RBC) [Entitic vol] 75.4 fL Low 80-100 [facility] Comment on above: Performed By: #### H H, BMP #### [facility] [facility] [place] [address] Neon Tube Bender: Con Oseguera MD Platelet mean volume (Bld) [Entitic vol] 8.9 fL Normal 6.0-12.0 [facility] Comment on above: Performed By: #### H H, BMP #### [facility] [address] [place], [place] [address]e [place] [address] Neon Tube Bender: Con Oseguera MD Platelets (Bld) [#/Vol] 305 10*3/uL Normal 150-450 [facility] Comment on above: Performed By: #### H H, BMP #### [facility] [address] [place] [address] Neon Tube Bender: Con Oseguera MD RBC (Bld) [#/Vol] 4.44 10*6/uL Low 4.5-5.9 [facility] Comment on above: Performed By: #### H H, BMP #### [facility] [facility] [place] [address] Neon Tube Bender: Con Oseguera MD WBC (Bld) [#/Vol] 7.7 10*3/uL Normal 3.5-11.0 [facility] Comment on above: Performed By: #### H H, BMP #### [facility] [facility] [place] [address] Neon Tube Bender: Con Oseguera MD Abs.Imm.Granulocyte NOT REPORTED Normal 0.00-0.30 [facility] Comment on above: Performed By: #### H H, BMP #### [facility] [facility] [place] [address] Neon Tube Bender: Con Oseguera MD Auto Diff Performed NOT REPORTED Normal [facility] Comment on above: Performed By: #### H H, BMP #### [facility] [place] [address] Neon Tube Bender: Con Oseguera MD Immature granulocytes (Bld) [#/Vol] NOT REPORTED Normal 0 [facility] Comment on above: Performed By: #### H H, BMP #### [facility] [place] [address] Neon Tube Bender: Con Oseguera MD NRBC Automated NOT REPORTED Normal [facility] Comment on above: Performed By: #### H H, BMP #### [facility] [address] [facility] [place] [address] Neon Tube Bender: Con Oseguera MD Platelets (Bld) [#/Vol] NOT REPORTED Normal [facility] Comment on above: Performed By: #### H H, BMP #### [facility] [address] [facility] [address] Neon Tube Bender: Con Oseguera MD RBC morphology finding Nom (Bld) NOT REPORTED Normal [facility] Comment on above: Performed By: #### H H, BMP #### [facility] [address] [facility] [address] Neon Tube Bender: Con Oseguera MD WBC Morphology NOT REPORTED Normal [facility] Comment on above: Performed By: #### H H, BMP #### [facility] [address] [facility] [place] [address] Neon Tube Bender: Con Oseguera MD Otheron 03-27-2019 Immature granulocytes [...] Observations UA NOT REPORTED NOT REQ. M [facility] [place] RBC (U) [#/Vol] 20 TO 50 /HPF [facility] [place] [place] Renal Epithelial, Urine NOT REPORTED 0 /HPF [facility] [place] Trichomonas, UA NOT REPORTED None [facility] [place] WBC, UA 0 TO 2 /HPF [facility] [place] Yeast, UA NOT REPORTED None [facility] [place] - [facility], [place] Otheron 03-16-2019 Casts UA /LPF [facility], [place] UA w/Reflex Cultureon 2018 Acetoacetic Acid,Ur Negative Normal NEG [facility] Comment on above: Performed By: #### H H, BMP #### [facility] [address] [facility] [place] [address] Ne[employer] Tube Bender: Con Oseguera MD Bilirubin, SemiQt,Ur Negative Normal NEG [facility] Comment on above: Performed By: #### H H, BMP #### [facility] [address] [facility] [place] [address] Neon Tube Bender: Con Oseguera MD Color (U) YELLOW Normal YEL [facility] Comment on above: Performed By: #### H H, BMP #### [facility] [address] [place] [address] Neon Tube Bender: Con Oseguera MD Glucose Ql (U) Negative Normal NEG [facility] Comment on above: Performed By: #### H H, BMP #### [facility] [address] [facility] [place] [address] Neon Tube Bender: Con Oseguera MD Hemoglobin, Ur SMALL Abnormal NEG [facility] Comment on above: Performed By: #### H H, BMP #### [facility] [address] [facility] [place] [address] Neon Tube Bender: Con Oseguera MD Leukocyte esterase Test strip Ql (U) Negative Normal NEG [facility] Comment on above: Performed By: #### H H, BMP #### [facility] [address] [place] [address] Neon Tube Bender: Con Oseguera MD Nitrite,Ur Negative Normal NEG [facility] Comment on above: Performed By: #### H H, BMP #### [facility] [address] [place] [address] Neon Tube Bender: Con Oseguera MD pH (U) 6.5 [pH] Normal 5.0-8.0 [facility] Comment on above: Performed By: #### H H, BMP #### [facility] [address] [facility] [place] [address] Neon Tube Bender: Con Oseguera MD Protein Ql (U) Negative Normal NEG [facility] Comment on above: Performed By: #### H H, BMP #### [facility] [place] [address] Neon Tube Bender: Con Oseguera MD Specific gravity (U) [Rel density] 1.008 Normal 1.000-1.030 [facility] Comment on above: Performed By: #### H H, BMP #### [facility] [place] [address] Neon Tube Bender: Con Oseguera MD Turbidity CLEAR Normal CLEAR [facility] Comment on above: Performed By: #### H H, BMP #### [facility] [address] [facility] [place] [address] Neon Tube Bender: Con Oseguera MD Urobilinogen,Ur Normal Normal NORM [facility] Comment on above: Performed By: #### H H, BMP #### [facility] [place] [address] Neon Tube Bender: Con Oseguera MD Comment NOT REPORTED Normal [facility] Comment on above: Performed By: #### H H, BMP #### [facility] [place] [address] Neon Tube Bender: Con Oseguera MD Urinalysis Reflex to Culture on 03-16-2019 Bilirubin Urine Negative NEGATIVE [facility] [place], [place] Color, UA YELLOW YELLOW [facility], [place] Glucose, Ur Negative NEGATIVE [facility], [place] Interpretation and review of laboratory results Abnormal [facility], [place] Ketones Ql (U) Negative NEGATIVE [facility] [place], [place] Leukocyte esterase Test strip Ql (U) Negative NEGATIVE [facility], [place] Nitrite, Urine Negative NEGATIVE [facility], [place] pH, UA 6.5 [facility], [place] Protein (U) [Mass/Vol] Negative NEGATIVE [facility], [place] Specific Doss, UA 1.008 [facility], [place] Turbidity UA CLEAR CLEAR [facility], [place] Urinalysis Comments NOT REPORTED [facility], [place] Urine Hgb SMALL Abnormal NEGATIVE [facility], [place] Urobilinogen, Urine Normal Normal [place], [place] Urinalysis,Microon 9 ----- Normal [facility] Comment on above: Performed By: #### H H, BMP #### [facility] [address] [place] [address] Ne[employer] T[employer] Bender: Con Oseguera MD Epithelial cells LM.HPF (Urine sed) [#/Area] 0 TO 2 Normal [facility] Comment on above: Performed By: #### H H, BMP #### [facility] [address] [place] [address] Neon Tube Bender: oCn Oseguera MD RBC (U) [#/Vol] 20 TO 50 Normal [facility] Comment on above: Performed By: #### H H, BMP #### [facility] [address] [place] [address] Neon Tube Bender: Con Oseguera MD WBC (U) [#/Vol] 0 TO 2 Normal [facility] Comment on above: Performed By: #### H H, BMP #### [facility] [address] [place] [address] Ne[employer] Tube Bender: Con Oseguera MD Amorphous sediment LM Ql (Urine sed) NOT REPORTED Normal NONE [facility] Comment on above: Performed By: #### H H, BMP #### [facility] [address] [place] [address] Neon Tube Bender: Con Oseguera MD Bacteria LM.HPF (Urine sed) [#/Area] NOT REPORTED Normal NONE [facility] Comment on above: Performed By: #### H H, BMP #### [facility] [address] [place] [address] Neon Tube Bender: Con Oseguera MD Casts LM.LPF (Urine sed) [#/Area] NOT REPORTED Normal [facility] Comment on above: Performed By: #### H H, BMP #### [facility] [address] [place] [address] Neon Tube Bender: Con Oseguera MD Crystals LM Nom (Urine sed) NOT REPORTED Normal NONE [facility] Comment on above: Performed By: #### H H, BMP #### [facility] [address] [place] [address] Neon Tube Bender: Con Oseguera MD Epithelial, Renal NOT REPORTED Normal 0 [facility] Comment on above: Performed By: #### H H, BMP #### [facility] [address] [place] [address] Neon Tube Bender: Con Oseguera MD Mucus Strands NOT REPORTED Normal NONE [facility] Comment on above: Performed By: #### H H, BMP #### [facility] [address] [place] [address] Neon Tube Bender: Con Oseguera MD Other Observations NOT REPORTED Normal NREQ [facility] Comment on above: Performed By: #### H H, BMP #### [facility] [address] [place] [address] Neon Tube Bender: Con Oseguera MD Trichomonas NOT REPORTED Normal NONE [facility] Comment on above: Performed By: #### H H, BMP #### [facility] [place] [address] Neon Tube Bender: Con Oseguera MD Yeast LM Ql (Urine sed) NOT REPORTED Normal NONE [facility] Comment on above: Performed By: #### H H, BMP #### [facility] [address] [place] [address] Neon Tube Bender: Con Oseguera MD Basic Metab w/rfx MGon 03-13 (cont.) Normal [facility] Comment on above: Result Comment: Aver age GFR for 70 or more years old: 75 mL/min/1.73sq m Chronic Kidney Disease: <60 mL/min/1.73sq m Kidney failure: <15 mL/min/1.73sq m eGFR calculated using average adult body mass. Additional eGFR calculator available at: http://www.[employer]/multiple_crcl_2012.htm Performed By: #### H H, BMP #### [facility] [address] [place] [address] Neon Tube Bender: Con Oseguera MD Anion gap [Moles/Vol] 12 mmol/L Normal 9-17 [facility] Comment on above: Performed By: #### H H, BMP #### [facility] [address] [place] [address] Neon Tube Bender: Con Oseguera MD Calcium [Mass/Vol] 9.2 mg/dL Normal 8.6-10.4 [facility] Comment on above: Performed By: #### H H, BMP #### [facility] [address] [place] [address] Neon Tube Bender: Con Oseguera MD Chloride [Moles/Vol] 105 mmol/L Normal 98-107 [facility] Comment on above: Performed By: #### H H, BMP #### [facility] [address] [place] [address] Neon Tube Bender: Con Oseguera MD CO2 [Moles/Vol] 26 mmol/L Normal 20-31 [facility] Comment on above: Performed By: #### H H, BMP #### [facility] [address] [place] [address] Neon Tube Bender: Con Oseguera MD Creatinine [Mass/Vol] 1.41 mg/dL High 0.70-1.20 [facility] Comment on above: Performed By: #### H H, BMP #### [facility] [place] [address] Neon Tube Bender: Con Oseguera MD GFR, Amer 58 mL/min Low >60 [facility] Comment on above: Performed By: #### H H, BMP #### [facility] [place] [address] Neon Tube Bender: Con Oseguera MD GFR,non Amer 48 mL/min Low >60 [facility] Comment on above: Performed By: #### H H, BMP #### [facility] [place] [address] Neon Tube Bender: Con Oseguera MD Glucose [Mass/Vol] 90 mg/dL Normal 70-99 [facility] Comment on above: Performed By: #### H H, BMP #### [facility] [place] [address] Neon Tube Bender: Con Oseguera MD Potassium [Moles/Vol] 4.1 mmol/L Normal 3.7-5.3 [facility] Comment on above: Performed By: #### H H, BMP #### [facility] [place] [address] Neon Tube Bender: Con Oseguera MD Sodium [Moles/Vol] 143 mmol/L Normal 135-144 [facility] Comment on above: Performed By: #### H H, BMP #### [facility] [address] [place] [address] Neon Tube Bender: Con Oseguera MD Urea nitrogen [Mass/Vol] 19 mg/dL Normal 8- [facility] Comment on above: Performed By: #### H H, BMP #### [facility] [address] [place] [address] Neon Tube Bender: Con Oseguera MD BUN/CRE Ratio NOT REPORTED Normal - [facility] Comment on above: Performed By: #### H H, BMP #### [facility] [address] [place] [address] Neon Tube Bender: Con Oseguera MD Staging: NOT REPORTED Normal [facility] Comment on above: Performed By: #### H H, BMP #### [facility] [address] [place] [address] Neon Tube Bender: Con Oseguera MD Basic Metabolic Panel w/ Ref milagros to MGon 03-13-2019 Anion gap [Moles/Vol] 12 mmol/L 9 - 17 mmol/L [place], [place] Bun/Cre Ratio NOT REPORTED [facility], [place] Calcium [Mass/Vol] 9.2 mg/dL 8.6 - 10. 4 mg/dL [place], [place] Chloride [Moles/Vol] 105 mmol/L 98 - 10 7 mmol/L [place] CO2 [Moles/Vol] 26 mmol/L 20 - 31 mmol/L [place] Creatinine [Mass/Vol] 1.41 mg/dL High 0.7 - 1.2 mg/dL [place], [place] GFR 58 mL/min Low >60 [place], [place] GFR Non- 48 mL/min Low >60 [place], [place] GFR/1.73 sq M predicted among non-blacks MDRD (S/P/Bld) [Vol rate/Area] [place], [place] Comment on above: Average GFR for 70 o r more years old: 75 mL/min/1.73sq m Chronic Kidney Disease: <60 mL/min/1.73sq m Kidney failure: <15 mL/min/1.73sq m eGFR calculated using average adult body mass. Additional eGFR calculator available at: http://www.[employer]/multiple_crcl_2011.htm GFR/1.73 sq M predicted among non-blacks MDRD (S/P/Bld) [Vol rate/Area] NOT REPORTED [place], [place] Glucose [Mass/Vol] 90 mg/dL 70 - 99 mg/dL [place], [place] Interpretation and review of laboratory results Abnormal [place], [place] Potassium [Moles/Vol] 4.1 mmol/L 3.7 - 5.3 mmol/L [place], [place] Sodium [Moles/Vol] 143 mmol/L 135 - 144 mmol/L [place] Urea nitrogen [Mass/Vol] 19 mg/dL 8 - 23 mg/dL [place], [place] POC Glucose Fingerstickon Glucose [Mass/Vol] 195 mg/dL High 75 - 110 mg/dL [place], [place] Interpretation and review of laboratory results Abnormal [place], [place] Glucose [Mass/Vol] 79 mg/dL 75 - 110 mg/dL [place], [place] Basic Metab w/rfx MGon 03-12 (cont.) Normal [facility] Comment on above: Result Comment: Aver age GFR for 70 or more years old: 75 mL/min/1.73sq m Chronic Kidney Disease: <60 mL/min/1.73sq m Kidney failure: <15 mL/min/1.73sq m eGFR calculated using average adult body mass. Additional eGFR calculator available at: http://www.[employer]/multiple_crcl_2011.htm Performed By: #### H H, BMP #### [facility] [address] [place] [address] Neon Tube Bender: Con Oseguera MD Anion gap [Moles/Vol] 11 mmol/L Normal 9-17 [facility] Comment on above: Performed By: #### H H, BMP #### [facility] [address] [place] [address] Neon Tube Bender: Con Oseguera MD Calcium [Mass/Vol] 9.2 mg/dL Normal 8.6-10.4 [facility] Comment on above: Performed By: #### H H, BMP #### [facility] [address] [place] [address] Neon Tube Bender: Con Oseguera MD Chloride [Moles/Vol] 108 mmol/L High 98-107 [facility] Comment on above: Performed By: #### H H, BMP #### [facility] [address] [place] [address] Neon Tube Bender: Con Oseguera MD CO2 [Moles/Vol] 26 mmol/L Normal 20-31 [facility] Comment on above: Performed By: #### H H, BMP #### [facility] [address] [place] [address] Neon Tube Bender: Con Oseguera MD Creatinine [Mass/Vol] 1.41 mg/dL High 0.70-1.20 [facility] Comment on above: Performed By: #### H H, BMP #### [facility] [address] [place] [address] Neon Tube Bender: Con Oseguera MD GFR, Amer 58 mL/min Low >60 [facility] Comment on above: Performed By: #### H H, BMP #### [facility] [address] [place] [address] Neon Tube Bender: Con Oseguera MD GFR,non Amer 48 mL/min Low >60 [facility] Comment on above: Performed By: #### H H, BMP #### [facility] [address] [place] [address] Neon Tube Bender: Con Oseguera MD Glucose [Mass/Vol] 81 mg/dL Normal 70-99 [facility] Comment on above: Performed By: #### H H, BMP #### [facility] [address] [place] [address] Neon Tube Bender: Con Oseguera MD Potassium [Moles/Vol] 4.1 mmol/L Normal 3.7-5.3 [facility] Comment on above: Performed By: #### H H, BMP #### [facility] [place] [address] Neon Tube Bender: Con Oseguera MD Sodium [Moles/Vol] 145 mmol/L High 135-144 [facility] Comment on above: Performed By: #### H H, BMP #### [facility] [address] [place] [address] Neon Tube Bender: Con Oseguera MD Urea nitrogen [Mass/Vol] 20 mg/dL Normal 8-23 [facility] Comment on above: Performed By: #### H H, BMP #### [facility] [place] [address] Neon Tube Bender: Con Oseguera MD BUN/CRE Ratio NOT REPORTED Normal 9-20 [facility] Comment on above: Performed By: #### H H, BMP #### [facility] [address] [place] [address] Neon Tube Bender: Con Oseguera MD Staging: NOT REPORTED Normal [facility] Comment on above: Performed By: #### H H, BMP #### [facility] [address] [place] [address] Neon Tube Bender: Con Oseguera MD Basic Metabolic Panel w/ Ref milagros to MGon 03-12-2019 Anion gap [Moles/Vol] 11 mmol/L 9 - 17 mmol/L [place] Bun/Cre Ratio NOT REPORTED [place], [place] Calcium [Mass/Vol] 9.2 mg/dL 8.6 - 10. 4 mg/dL [place] Chloride [Moles/Vol] 108 mmol/L High 98 - 10 7 mmol/L [place] CO2 [Moles/Vol] 26 mmol/L 20 - 31 mmol/L [place] Creatinine [Mass/Vol] 1.41 mg/dL High 0.7 - 1.2 mg/dL [place], [place] GFR 58 mL/min Low >60 [place], [place] GFR Non- 48 mL/min Low >60 [place] GFR/1.73 sq M predicted among non-blacks MDRD (S/P/Bld) [Vol rate/Area] NOT REPORTED [place] GFR/1.73 sq M predicted among non-blacks MDRD (S/P/Bld) [Vol rate/Area] [place], [place] Comment on above: Average GFR for 70 o r more years old: 75 mL/min/1.73sq m Chronic Kidney Disease: <60 mL/min/1.73sq m Kidney failure: <15 mL/min/1.73sq m eGFR calculated using average adult body mass. Additional eGFR calculator available at: http://www.[employer]/multiple_crcl_2012.htm Glucose [Mass/Vol] 81 mg/dL 70 - 99 mg/dL [place], [place] Interpretation and review of laboratory results Abnormal [place], [place] Potassium [Moles/Vol] 4.1 mmol/L 3.7 - 5.3 mmol/L [place] Sodium [Moles/Vol] 145 mmol/L High 135 - 144 mmol/L [place] Urea nitrogen [Mass/Vol] 20 mg/dL 8 - 23 mg/dL [place] POC Glucose Fingerstickon Glucose [Mass/Vol] 285 mg/dL High 75 - 110 mg/dL [place], [place] Interpretation and review of laboratory results Abnormal [place], [place] Glucose [Mass/Vol] 286 mg/dL High 75 - 110 mg/dL Me [place], [place] Interpretation and review of laboratory results Abnormal [place], [place] Glucose [Mass/Vol] 264 mg/dL High 75 - 110 mg/dL Me [place], [place] Interpretation and review of laboratory results Abnormal [place], [place] Glucose [Mass/Vol] 72 mg/dL Low 75 - 110 mg/dL Me [place], [place] Interpretation and review of laboratory results Abnormal [place] Basic Metab w/rfx MGon 03-11 (cont.) Normal [facility] Comment on above: Result Comment: Aver age GFR for 70 or more years old: 75 mL/min/1.73sq m Chronic Kidney Disease: <60 mL/min/1.73sq m Kidney failure: <15 mL/min/1.73sq m eGFR calculated using average adult body mass. Additional eGFR calculator available at: http://www.[employer]one.[employer]/multiple_crcl_2012.htm Performed By: #### H H, BMP #### [facility] [address] [facility]. [place], [place] [id number] Neon Tube Bender: Con Oseguera MD Anion gap [Moles/Vol] 10 mmol/L Normal 9-17 [facility] Comment on above: Performed By: #### H H, BMP #### [facility] [address] [facility] [place], [place] [id number] Neon Tube Bender: Con Oseguera MD Calcium [Mass/Vol] 9.3 mg/dL Normal 8.6-10.4 [facility] Comment on above: Performed By: #### H H, BMP #### [facility] [address] [facility] [place] [address] Neon Tube Bender: Con Oseguera MD Chloride [Moles/Vol] 104 mmol/L Normal 98-107 [facility] Comment on above: Performed By: #### H H, BMP #### [facility] [address] [place] [address] Neon Tube Bender: Con Oseguera MD CO2 [Moles/Vol] 26 mmol/L Normal 20-31 [facility] Comment on above: Performed By: #### H H, BMP #### [facility] [place] [address] Neon Tube Bender: Con Oseguera MD Creatinine [Mass/Vol] 1.49 mg/dL High 0.70-1.20 [facility] Comment on above: Performed By: #### H H, BMP #### [facility] [address] [place] [address]. [place] [address] Neon Tube Bender: Con Oseguera MD GFR, Amer 55 mL/min Low >60 [facility] Comment on above: Performed By: #### H H, BMP #### [facility] [place] [address] Neon Tube Bender: Con Oseguera MD GFR,non Amer 45 mL/min Low >60 [facility] Comment on above: Performed By: #### H H, BMP #### [facility] [place] [address] Neon Tube Bender: Con Oseguera MD Glucose [Mass/Vol] 78 mg/dL Normal 70-99 [facility] Comment on above: Performed By: #### H H, BMP #### [facility] [place] [address] Neon Tube Bender: Con Oseguera MD Potassium [Moles/Vol] 4.0 mmol/L Normal 3.7-5.3 [facility] Comment on above: Performed By: #### H H, BMP #### [facility] [address] [facility] [place] [address] Neon Tube Bender: Con Oseguera MD Sodium [Moles/Vol] 140 mmol/L Normal 135-144 [facility] Comment on above: Performed By: #### H H, BMP #### [facility] [address] [facility] [place] [address] Neon Tube Bender: Con Oseguera MD Urea nitrogen [Mass/Vol] 22 mg/dL Normal 8-23 [facility] Comment on above: Performed By: #### H H, BMP #### [facility] [address] [facility] [place] [address] Neon Tube Bender: Con Oseguera MD BUN/CRE Ratio NOT REPORTED Normal 9-20 [facility] Comment on above: Performed By: #### H H, BMP #### [facility] [address] [facility] [place] [address] Neon Tube Bender: Con Oseguera MD Staging: NOT REPORTED Normal [facility] Comment on above: Performed By: #### H H, BMP #### [facility] [address] [facility] [place] [address] Neon Tube Bender: Con Oseguera MD Basic Metabolic Panel w/ Ref milagros to MGon 03-11-2019 Anion gap [Moles/Vol] 10 mmol/L 9 - 17 mmol/L [facility], [place] Bun/Cre Ratio NOT REPORTED [facility], [place] Calcium [Mass/Vol] 9.3 mg/dL 8.6 - 10. 4 mg/dL [facility], [place] Chloride [Moles/Vol] 104 mmol/L 98 - 10 7 mmol/L [facility], [place] CO2 [Moles/Vol] 26 mmol/L 20 - 31 mmol/L [facility], [place] Creatinine [Mass/Vol] 1.49 mg/dL High 0.7 - 1.2 mg/dL [place], [place] GFR 55 mL/min Low >60 [place] GFR Non- 45 mL/min Low >60 [place] GFR/1.73 sq M predicted among non-blacks MDRD (S/P/Bld) [Vol rate/Area] [place], [place] Comment on above: Average GFR for 70 o r more years old: 75 mL/min/1.73sq m Chronic Kidney Disease: <60 mL/min/1.73sq m Kidney failure: <15 mL/min/1.73sq m eGFR calculated using average adult body mass. Additional eGFR calculator available at: http://www.[employer]/multiple_crcl_2011.htm GFR/1.73 sq M predicted among non-blacks MDRD (S/P/Bld) [Vol rate/Area] NOT REPORTED [place], [place] Glucose [Mass/Vol] 78 mg/dL 70 - 99 mg/dL [place] Interpretation and review of laboratory results Abnormal [place] Potassium [Moles/Vol] 4.0 mmol/L 3.7 - 5.3 mmol/L [place] Sodium [Moles/Vol] 140 mmol/L 135 - 144 mmol/L [place] Urea nitrogen [Mass/Vol] 22 mg/dL 8 - 23 mg/dL [place] POC Glucose Fingerstickon Glucose [Mass/Vol] 213 mg/dL High 75 - 110 mg/dL [place] Interpretation and review of laboratory results Abnormal [place] Glucose [Mass/Vol] 139 mg/dL High 75 - 110 mg/dL [place] Interpretation and review of laboratory results Abnormal [place] Glucose [Mass/Vol] 195 mg/dL High 75 - 110 mg/dL [place] Interpretation and review of laboratory results Abnormal [place] Glucose [Mass/Vol] 73 mg/dL Low 75 - 110 mg/dL [place] Interpretation and review of laboratory results Abnormal [place] XR CHEST (2 VW)on 03-11-2019 XR [...] Maxwell Chaudhry MD 03/11/19 Final result Normal [facility] XR CHEST STANDARD (2 VW)on 0 [...] acute osseous abnormality is seen. [facility] [place] 1. Stable bibasilar pulmonary opacities that may reflect atelectasis or pneumonia. 2. Stable small left pleural effusion. [place], [place] Stan, [facility] Incoming Radiant Results From [facility] - 03/11/2019 2:19 PM EDT EXAMINATION: TWO [...] pneumonia. 2. Stable small left pleural effusion. [place] Basic Metab w/rfx MGon 03-10 (cont.) Normal [facility] Comment on above: Result Comment: Aver age GFR for 70 or more years old: 75 mL/min/1.73sq m Chronic Kidney Disease: <60 mL/min/1.73sq m Kidney failure: <15 mL/min/1.73sq m eGFR calculated using average adult body mass. Additional eGFR calculator available at: http://www.[employer]one.[employer]/multiple_crcl_2011.htm Performed By: #### B MP #### [facility] [address] [facility] [place] [address] Neon Tube Bender: Con Oseguera MD Anion gap [Moles/Vol] 12 mmol/L Normal 9-17 [facility] Comment on above: Performed By: #### B MP #### [facility] [place] [address] Neon Tube Bender: Con Oseguera MD Calcium [Mass/Vol] 9.3 mg/dL Normal 8.6-10.4 [facility] Comment on above: Performed By: #### B MP #### [facility] [place] [address] Neon Tube Bender: Con Oseguera MD Chloride [Moles/Vol] 102 mmol/L Normal 98-107 [facility] Comment on above: Performed By: #### B MP #### [facility] [address] [facility] [place] [address] Neon Tube Bender: Con Oseguera MD CO2 [Moles/Vol] 27 mmol/L Normal 20-31 [facility] Comment on above: Performed By: #### B MP #### [facility] [place] [address] Neon Tube Bender: Con Oseguera MD Creatinine [Mass/Vol] 1.69 mg/dL High 0.70-1.20 [facility] Comment on above: Performed By: #### B MP #### [facility] [address] [place] [address] Neon Tube Bender: Con Oseguera MD GFR, Amer 47 mL/min Low >60 [facility] Comment on above: Performed By: #### B MP #### [facility] [address] [place] [address] Neon Tube Bender: Con Oseguera MD GFR,non Amer 39 mL/min Low >60 [facility] Comment on above: Performed By: #### B MP #### [facility] [address] [place] [address] Neon Tube Bender: Con Oseguera MD Glucose [Mass/Vol] 87 mg/dL Normal 70-99 [facility] Comment on above: Performed By: #### B MP #### [facility] [address] [place] [address] Neon Tube Bender: Con Oseguera MD Potassium [Moles/Vol] 4.2 mmol/L Normal 3.7-5.3 [facility] Comment on above: Performed By: #### B MP #### [facility] [address] [place] [address] Neon Tube Bender: Con Oseguera MD Sodium [Moles/Vol] 141 mmol/L Normal 135-144 [facility] Comment on above: Performed By: #### B MP #### [facility] [address] [place] [address] Neon Tube Bender: Con Oseguera MD Urea nitrogen [Mass/Vol] 24 mg/dL High 8-23 [facility] Comment on above: Performed By: #### B MP #### [facility] [address] [place] [address] Neon Tube Bender: Con Oseguera MD BUN/CRE Ratio NOT REPORTED Normal 9-20 [facility] Comment on above: Performed By: #### B MP #### [facility] [address] [place] [address] Neon Tube Bender: Con Oseguera MD Staging: NOT REPORTED Normal [facility] Comment on above: Performed By: #### B MP #### [facility] [address] [place] [address] Neon Tube Bender: Con Oseguera MD Basic Metabolic Panel w/ Ref milagros to MGon 03-10-2019 Anion gap [Moles/Vol] 12 mmol/L 9 - 17 mmol/L [place] Bun/Cre Ratio NOT REPORTED [place], [place] Calcium [Mass/Vol] 9.3 mg/dL 8.6 - 10. 4 mg/dL [place] Chloride [Moles/Vol] 102 mmol/L 98 - 10 7 mmol/L [place] CO2 [Moles/Vol] 27 mmol/L 20 - 31 mmol/L [place] Creatinine [Mass/Vol] 1.69 mg/dL High 0.7 - 1.2 mg/dL [place] GFR 47 mL/min Low >60 [place] GFR Non- 39 mL/min Low >60 [place] GFR/1.73 sq M predicted among non-blacks MDRD (S/P/Bld) [Vol rate/Area] NOT REPORTED [place] GFR/1.73 sq M predicted among non-blacks MDRD (S/P/Bld) [Vol rate/Area] [place] Comment on above: Average GFR for 70 o r more years old: 75 mL/min/1.73sq m Chronic Kidney Disease: <60 mL/min/1.73sq m Kidney failure: <15 mL/min/1.73sq m eGFR calculated using average adult body mass. Additional eGFR calculator available at: http://www.cocone.[employer]/multiple_crcl_2012.htm Glucose [Mass/Vol] 87 mg/dL 70 - 99 mg/dL [place] Interpretation and review of laboratory results Abnormal [place], [place] Potassium [Moles/Vol] 4.2 mmol/L 3.7 - 5.3 mmol/L [place] Sodium [Moles/Vol] 141 mmol/L 135 - 144 mmol/L [place] Urea nitrogen [Mass/Vol] 24 mg/dL High 8 - 23 mg/dL [place] Digoxinon 03-10-2019 Digoxin [Mass/Vol] 0.6 ng/mL Normal 0.5-2.0 [facility] Comment on above: Result Comment: Digoxin Reference Range: Heart Failure 0.5-0.9 Atrial Fibrillation 0.8-2.0 Performed By: #### B MP #### [facility] [address] [facility] [place] [address] Neon Tube Bender: Con Oseguera MD Digoxin [Mass/Vol] 915 ng/mL Normal [facility] Comment on above: Performed By: #### B MP #### [facility] [address] [facility]. [place], [place] [id number] Neon Tube Bender: Con Oseguera MD Digoxin [Mass/Vol] 1794434 ng/mL Normal [facility] Comment on above: Performed By: #### B MP #### [facility] [address] [facility] [place] [address] Neon Tube Bender: Con Oseguera MD Digoxin [Mass/Vol] 125mct Normal [facility] Comment on above: Performed By: #### B MP #### [facility] [address] [facility] [place] [address] Neon Tube Bender: Con Oseguera MD Digoxin Levelon 03-10-2019 Digoxin Date Last Dose [id number] [place] Digoxin Dose Amount 125mct [place] Digoxin Dose Time 915 [place], [place] INR Coag (Bld) [Relative time] 0.6 ng/mL 0.5 - 2 ng/mL [place] Comment on above: Digoxin Reference Range: Heart Failure 0.5-0.9 Atrial Fibrillation 0.8-2.0 Magnesiumon 03-10-2019 Magnesium [Mass/Vol] 2.1 mg/dL Normal 1.6-2.6 [facility] Comment on above: Performed By: #### B MP #### [facility] [address] [facility]. [place], [place] [id number] Neon Tube Bender: Con Oseguera MD Magnesium [Mass/Vol] 2.1 mg/dL 1.6 - 2 .6 mg/dL [place] POC Glucose Fingerstickon Glucose [Mass/Vol] 298 mg/dL High 75 - 110 mg/dL [place] Interpretation and review of laboratory results Abnormal [place] Glucose [Mass/Vol] 88 mg/dL 75 - 110 mg/dL Me [place], [place] Glucose [Mass/Vol] 120 mg/dL High 75 - 110 mg/dL [place] Interpretation and review of laboratory results Abnormal [place] Glucose [Mass/Vol] 87 mg/dL 75 - 110 mg/dL Me [place] Basic Metab w/rfx MGon 03-09 (cont.) Normal [facility] Comment on above: Result Comment: Aver age GFR for 70 or more years old: 75 mL/min/1.73sq m Chronic Kidney Disease: <60 mL/min/1.73sq m Kidney failure: <15 mL/min/1.73sq m eGFR calculated using average adult body mass. Additional eGFR calculator available at: http://www.cocone.com/multiple_crcl_2012.htm Performed By: #### B MP #### [facility] [address] [place], [place] [id number] Neon Tube Bender: Con Oseguera MD Anion gap [Moles/Vol] 15 mmol/L Normal 9-17 [facility] Comment on above: Performed By: #### B MP #### [facility] [address] [place] [address] Neon Tube Bender: Con Oseguera MD Calcium [Mass/Vol] 10.0 mg/dL Normal 8.6-10.4 [facility] Comment on above: Performed By: #### B MP #### [facility] [address] [place] [address] Neon Tube Bender: Con Oseguera MD Chloride [Moles/Vol] 98 mmol/L Normal 98-107 [facility] Comment on above: Performed By: #### B MP #### [facility] [address] [place] [address] Neon Tube Bender: Con Oseguera MD CO2 [Moles/Vol] 24 mmol/L Normal 20-31 [facility] Comment on above: Performed By: #### B MP #### [facility] [address] [place] [address] Neon Tube Bender: Con Oseguera MD Creatinine [Mass/Vol] 1.54 mg/dL High 0.70-1.20 [facility] Comment on above: Performed By: #### B MP #### [facility] [address] [place] [address] Neon Tube Bender: Con Oseguera MD GFR, Amer 53 mL/min Low >60 [facility] Comment on above: Performed By: #### B MP #### [facility] [address] [place] [address] Neon Tube Bender: Con Oseguera MD GFR,non Amer 44 mL/min Low >60 [facility] Comment on above: Performed By: #### B MP #### [facility] [address] [place] [address] Neon Tube Bender: Con Oseguera MD Glucose [Mass/Vol] 119 mg/dL High 70-99 [facility] Comment on above: Performed By: #### B MP #### [facility] [address] [place] [address] Neon Tube Bender: Con Oseguera MD Potassium [Moles/Vol] 4.4 mmol/L Normal 3.7-5.3 [facility] Comment on above: Performed By: #### B MP #### [facility] [address] [place] [address] Neon Tube Bender: Con Oseguera MD Sodium [Moles/Vol] 137 mmol/L Normal 135-144 [facility] Comment on above: Performed By: #### B MP #### [facility] [address] [place] [address] Neon Tube Bender: Con Oseguera MD Urea nitrogen [Mass/Vol] 22 mg/dL Normal 8-23 [facility] Comment on above: Performed By: #### B MP #### [facility] [address] [place] [address] Neon Tube Bender: Con Oseguera MD BUN/CRE Ratio NOT REPORTED Normal 9-20 [facility] Comment on above: Performed By: #### B MP #### [facility] [address] [place] [address] Neon Tube Bender: Con Oseguera MD Staging: NOT REPORTED Normal [facility] Comment on above: Performed By: #### B MP #### [facility] [address] [place] [address] Neon Tube Bender: Con Oseguera MD Basic Metabolic Panel w/ Ref milagros to MGon 03-09-2019 Anion gap [Moles/Vol] 15 mmol/L 9 - 17 mmol/L [facility], [place] Bun/Cre Ratio NOT REPORTED [facility] [place], [place] Calcium [Mass/Vol] 10.0 mg/dL 8.6 - 10. 4 mg/dL [place] Chloride [Moles/Vol] 98 mmol/L 98 - 10 7 mmol/L [place] CO2 [Moles/Vol] 24 mmol/L 20 - 31 mmol/L [place] Creatinine [Mass/Vol] 1.54 mg/dL High 0.7 - 1.2 mg/dL [place] GFR 53 mL/min Low >60 [place] GFR Non- 44 mL/min Low >60 [place] GFR/1.73 sq M predicted among non-blacks MDRD (S/P/Bld) [Vol rate/Area] [place] Comment on above: Average GFR for 70 o r more years old: 75 mL/min/1.73sq m Chronic Kidney Disease: <60 mL/min/1.73sq m Kidney failure: <15 mL/min/1.73sq m eGFR calculated using average adult body mass. Additional eGFR calculator available at: http://www.[employer]/multiple_crcl_2012.htm GFR/1.73 sq M predicted among non-blacks MDRD (S/P/Bld) [Vol rate/Area] NOT REPORTED [place] Glucose [Mass/Vol] 119 mg/dL High 70 - 99 mg/dL [place] Interpretation and review of laboratory results Abnormal [place] Potassium [Moles/Vol] 4.4 mmol/L 3.7 - 5.3 mmol/L [place] Sodium [Moles/Vol] 137 mmol/L 135 - 144 mmol/L [place] Urea nitrogen [Mass/Vol] 22 mg/dL 8 - 23 mg/dL [place] Cult,Urine,Cathon 03-09-2019 Cult,Urine,Cath Specimen Description .CATHETERIZED URINE Special Requests NOT REPORTED Culture KLEBSIELLA PNEUMONIAE >[id number] CFU/ML Report Status FINAL 03/09/2019 SUSCEPTIBILITY Organism [...] <=20 SUSCEPTIBLE Piperacillin/Tazobac sanabria <=4 SUSCEPTIBLE Normal [facility] Comment on above: Performed By: #### B MP #### [facility] [address] [place] [address] Neon Tube Bender: Con Oseguera MD POC Glucose Fingerstickon Glucose [Mass/Vol] 199 mg/dL High 75 - 110 mg/dL [place] Interpretation and review of laboratory results Abnormal [place] Glucose [Mass/Vol] 296 mg/dL High 75 - 110 mg/dL Me [place] Interpretation and review of laboratory results Abnormal [place] Glucose [Mass/Vol] 299 mg/dL High 75 - 110 mg/dL Me [place] Interpretation and review of laboratory results Abnormal [place] Glucose [Mass/Vol] 124 mg/dL High 75 - 110 mg/dL Me [place] Interpretation and review of laboratory results Abnormal [place] Urine culture via catheteron 03-09-2019 Culture KLEBSIELLA PNEUMONIAE >[id number] CFU/ML Abnormal [place] Interpretation and review of laboratory results Abnormal [place] Special Requests NOT REPORTED [place] Specimen Description .CATHETERIZED URINE [place] Basic Metab w/rfx MGon 03-08 (cont.) Normal [facility] Comment on above: Result Comment: Aver age GFR for 70 or more years old: 75 mL/min/1.73sq m Chronic Kidney Disease: <60 mL/min/1.73sq m Kidney failure: <15 mL/min/1.73sq m eGFR calculated using average adult body mass. Additional eGFR calculator available at: http://www.cocone.[employer]/multiple_crcl_2012.htm Performed By: #### B MP #### [facility] [address] [place] [address] Neon Tube Bender: Con Oseguera MD Anion gap [Moles/Vol] 11 mmol/L Normal 9-17 [facility] Comment on above: Performed By: #### B MP #### [facility] [address] [place] [address] Neon Tube Bender: Con Oseguera MD Calcium [Mass/Vol] 9.3 mg/dL Normal 8.6-10.4 [facility] Comment on above: Performed By: #### B MP #### [facility] [place] [address] Neon Tube Bender: Con Oseguera MD Chloride [Moles/Vol] 100 mmol/L Normal 98-107 [facility] Comment on above: Performed By: #### B MP #### [facility] [place] [address] Neon Tube Bender: Con Oseguera MD CO2 [Moles/Vol] 28 mmol/L Normal 20-31 [facility] Comment on above: Performed By: #### B MP #### [facility] [place] [address] Neon Tube Bender: Con Oseguera MD Creatinine [Mass/Vol] 1.57 mg/dL High 0.70-1.20 [facility] Comment on above: Performed By: #### B MP #### [facility] [facility] [place] [address] Neon Tube Bender: Con Oseguera MD GFR, Amer 52 mL/min Low >60 [facility] Comment on above: Performed By: #### B MP #### [facility] [address] [place] [address] Neon Tube Bender: Con Oseguera MD GFR,non Amer 43 mL/min Low >60 [facility] Comment on above: Performed By: #### B MP #### [facility] [address] [place] [address] Neon Tube Bender: Con Oseguera MD Glucose [Mass/Vol] 75 mg/dL Normal 70-99 [facility] Comment on above: Performed By: #### B MP #### [facility] [address] [place] [address] Neon Tube Bender: Con Oseguera MD Potassium [Moles/Vol] 4.6 mmol/L Normal 3.7-5.3 [facility] Comment on above: Performed By: #### B MP #### [facility] [address] [place] [address] Neon Tube Bender: Con Oseguera MD Sodium [Moles/Vol] 139 mmol/L Normal 135-144 [facility] Comment on above: Performed By: #### B MP #### [facility] [address] [place] [address] Neon Tube Bender: Con Oseguera MD Urea nitrogen [Mass/Vol] 27 mg/dL High 8-23 [facility] Comment on above: Performed By: #### B MP #### [facility] [address] [place] [address] Neon Tube Bender: Con Oseguera MD BUN/CRE Ratio NOT REPORTED Normal 9-20 [facility] Comment on above: Performed By: #### B MP #### [facility] [address] [place] [address] Neon Tube Bender: Con Oseguera MD Staging: NOT REPORTED Normal [facility] Comment on above: Performed By: #### B MP #### [facility] [address] [place] [address] Neon Tube Bender: Con Oseguera MD Basic Metabolic Panel w/ Ref milagros to MGon 03-08-2019 Anion gap [Moles/Vol] 11 mmol/L 9 - 17 mmol/L [place] Bun/Cre Ratio NOT REPORTED [place] Calcium [Mass/Vol] 9.3 mg/dL 8.6 - 10. 4 mg/dL [place] Chloride [Moles/Vol] 100 mmol/L 98 - 10 7 mmol/L [place] CO2 [Moles/Vol] 28 mmol/L 20 - 31 mmol/L [place] Creatinine [Mass/Vol] 1.57 mg/dL High 0.7 - 1.2 mg/dL [place] GFR 52 mL/min Low >60 [place] GFR Non- 43 mL/min Low >60 [place] GFR/1.73 sq M predicted among non-blacks MDRD (S/P/Bld) [Vol rate/Area] [place] Comment on above: Average GFR for 70 o r more years old: 75 mL/min/1.73sq m Chronic Kidney Disease: <60 mL/min/1.73sq m Kidney failure: <15 mL/min/1.73sq m eGFR calculated using average adult body mass. Additional eGFR calculator available at: http://www.cocone.[employer]/multiple_crcl_2012.htm GFR/1.73 sq M predicted among non-blacks MDRD (S/P/Bld) [Vol rate/Area] NOT REPORTED [place], [place] Glucose [Mass/Vol] 75 mg/dL 70 - 99 mg/dL [place] Interpretation and review of laboratory results Abnormal [place] Potassium [Moles/Vol] 4.6 mmol/L 3.7 - 5.3 mmol/L [place] Sodium [Moles/Vol] 139 mmol/L 135 - 144 mmol/L [place] Urea nitrogen [Mass/Vol] 27 mg/dL High 8 - 23 mg/dL [place] EKG 12 Leadon 03-08-2019 Atrial Rate 49 BPM [place], [place] Q-T Interval 406 ms [place], [place] QRS Duration 80 ms [place], [place] QTc Calculation (Bazett) 465 ms [place], [place] R [place] -13 degrees [place], [place] T [place] 40 degrees [place] Ventricular Rate 79 BPM [place], [place] Stan, Mhpn [place]coming [place] [facility] [place]08/[place] 10:18 AM EDT Atrial fibrillation Abnormal ECG When compared with ECG of 07-MAR-2019 17:56, (unconfirmed) No significant change was found [place] Atrial fibrillation Abnormal ECG When compared with ECG of 07-MAR-2019 17:56, (unconfirmed) No significant change was found [place] Hemoglobin A1Con 03-08-2019 HbA1c (Bld) [Mass fraction] 157 mg/dL Normal [facility] Comment on above: Result Comment: The ADA and AACC recommend providing the estimated average glucose result to permit better patient understanding of their HBA1c result. Performed By: #### B MP #### [facility] [address] [place] [address] Neon Tube Bender: Con Oseguera MD HbA1c (Bld) [Mass fraction] 7.1 % High 4.0-6.0 [facility] Comment on above: Performed By: #### B MP #### [facility] [address] [place], [place] [id number] Neon Tube Bender: Con Oseguera MD Glucose [Mass/Vol] 157 mg/dL [place] Comment on above: The ADA and AACC rec ommend providing the estimated average glucose result to permit better patient understanding of their HBA1c result. HbA1c (Bld) [Mass fraction] 7.1 % High 4 - 6 % [place] Interpretation and review of laboratory results Abnormal [place] POC Glucose Fingerstickon Glucose [Mass/Vol] 220 mg/dL High 75 - 110 mg/dL Me [place] Interpretation and review of laboratory results Abnormal [place] Glucose [Mass/Vol] 144 mg/dL High 75 - 110 mg/dL Me [place] Interpretation and review of laboratory results Abnormal [place] Glucose [Mass/Vol] 325 mg/dL High 75 - 110 mg/dL Me [place] Interpretation and review of laboratory results Abnormal [place] Glucose [Mass/Vol] 138 mg/dL High 75 - 110 mg/dL Me [place] Interpretation and review of laboratory results Abnormal [place] Glucose [Mass/Vol] 63 mg/dL Low 75 - 110 mg/dL Me [place] Interpretation and review of laboratory results Abnormal [place] Brain Natri. Peptideon 03-07 Natriuretic peptide B (Bld) [Mass/Vol] Pro-BNP Reference Range: Normal [facility] Comment on above: Result Comment: Rule Out: <300 Miranda Zone: Age <50 300-450 Age 50-75 300-900 Age >75 300-1800 Usually represents mild to moderate HF but other cardiopulmonary causes cannot be ruled out. Rule In: Age <50 >450 Age 50-75 >900 Age >75 >1800 Performed By: #### B MP #### [facility] [address] [facility]. [place], [place] [id number] Neon Tube Bender: Con Oseguera MD Natriuretic peptide B (Bld) [Mass/Vol] 946 pg/mL High <300 [facility] Comment on above: Result Comment: Pro- BNP results cannot be compared to BNP results. Performed By: #### B MP #### [facility] [address] [place] [address] Neon Tube Bender: Con Oseguera MD Brain Natriuretic Peptideon 03-07-2019 Interpretation and review of laboratory results Abnormal [place] Natriuretic peptide B (Bld) [Mass/Vol] Pro-BNP Reference Range: [place] Comment on above: Rule Out: <300 Miranda Zone: Age <50 300-450 Age 50-75 300-900 Age >75 300-1800 Usually represents mild to moderate HF but other cardiopulmonary causes cannot be ruled out. Rule In: Age <50 >450 Age 50-75 >900 Age >75 >1800 Natriuretic peptide B (Bld) [Mass/Vol] 946 pg/mL High <300 [place] Comment on above: Pro-BNP results darrius ot be compared to BNP results. CBC Auto Differentialon 02-25 Basophils (Bld) [#/Vol] 0.10 10*3/uL [place] Basophils/100 WBC (Bld) 1 % 0 - 2 % [place] Differential Type NOT REPORTED [place] Eosinophils (Bld) [#/Vol] 0.10 10*3/uL [place] Eosinophils/100 WBC (Bld) 1 % 0 - 4 % [place] Erythrocyte distribution width (RBC) [Ratio] 29.0 % High 11.5 - 14.9 % [place] Hematocrit (Bld) [Volume fraction] 33.5 % Low 41 - 53 % [place] Hemoglobin (Bld) [Mass/Vol] 10.5 g/dL Low 13.5 - 17.5 g/dL [place] Interpretation and review of laboratory results Abnormal [place] Lymphocytes (Bld) [#/Vol] 0.72 10*3/uL Low [place] Lymphocytes/100 WBC (Bld) 7 % Low 24 - 44 % [place] MCH (RBC) [Entitic mass] 22.4 pg Low 26 - 34 pg [place] MCHC (RBC) [Mass/Vol] 31.2 g/dL 31 - 37 g/dL M [place], [place] MCV (RBC) [Entitic vol] 71.7 fL Low 80 - 100 fL [place] Monocytes (Bld) [#/Vol] 0.72 10*3/uL [place] Monocytes/100 WBC (Bld) 7 % 1 - 7 % [place] Morphology Theo (Bld) [Interp] ANISOCYTOSIS PRESENT [place] Morphology Theo (Bld) [Interp] HYPOCHROMIA PRESENT [place], [place] Morphology Theo (Bld) [Interp] MICROCYTOSIS PRESENT [place] Platelet mean volume (Bld) [Entitic vol] 8.6 fL 6 - 12 fL [place], [place] Platelets (Bld) [#/Vol] NOT REPORTED [place] Platelets (Bld) [#/Vol] 273 10*3/uL [place] RBC (Bld) [#/Vol] 4.68 10*6/uL 4.5 - 5.9 m/uL M [place], [place] RBC morphology finding Nom (Bld) NOT REPORTED [place] Segmented neutrophils/100 WBC (Bld) 84 % High 36 - 66 % [place] Segs Absolute 8.66 [place] WBC (Bld) [#/Vol] NOT REPORTED per 100 WBC [place] WBC (Bld) [#/Vol] 10.3 10*3/uL [place] WBC Morphology NOT REPORTED [place] CBC with Diffon 03-07-2019 Abs. Basophil 0.10 k/uL Normal 0.0-0.2 [facility] Comment on above: Performed By: #### B MP #### [facility] [address] [place] [address] Neon Tube Bender: Con Oseguera MD Abs.Neutrophil (Seg) 8.66 k/uL Normal 1.3-9.1 [facility] Comment on above: Performed By: #### B MP #### [facility] [address] [place] [address] Neon Tube Bender: Con Oseguera MD Basophils/100 WBC (Bld) 1 % Normal 0-2 [facility] Comment on above: Performed By: #### B MP #### [facility] [address] [place] [address] Neon Tube Bender: Con Oseguera MD Eosinophils (Bld) [#/Vol] 0.10 10*3/uL Normal 0.0-0.4 [facility] Comment on above: Performed By: #### B MP #### [facility] [address] [place] [address] Neon Tube Bender: Con Oseguera MD Eosinophils/100 WBC (Bld) 1 % Normal 0-4 [facility] Comment on above: Performed By: #### B MP #### [facility] [address] [place] [address] Neon Tube Bender: Con Oseguera MD Lymphocytes (Bld) [#/Vol] 0.72 10*3/uL Low 1.0-4.8 [facility] Comment on above: Performed By: #### B MP #### [facility] [address] [facility] [place] [address] Neon Tube Bender: Con Oseguera MD Lymphocytes/100 WBC (Bld) 7 % Low 24-44 [facility] Comment on above: Performed By: #### B MP #### [facility] [address] [place] [address] Neon Tube Bender: Con Oseguera MD Monocytes (Bld) [#/Vol] 0.72 10*3/uL Normal 0.1-1.3 [facility] Comment on above: Performed By: #### B MP #### [facility] [address] [place] [address] Neon Tube Bender: Con Oseguera MD Monocytes/100 WBC (Bld) 7 % Normal 1-7 [facility] Comment on above: Performed By: #### B MP #### [facility] [address] [place] [address] Neon Tube Bender: Con Oseguera MD Morphology Theo (Bld) [Interp] ANISOCYTOSIS PRESENT Normal [facility] Comment on above: Result Comment: MICR OCYTOSIS PRESENT HYPOCHROMIA PRESENT Performed By: #### B MP #### [facility] [place] [address] Neon Tube Bender: Con Oseguera MD Neutrophil (Seg) 84 % High 36-66 [facility] Comment on above: Performed By: #### B MP #### [facility] [place] [address] Neon Tube Bender: Con Oseguera MD Erythrocyte distribution width (RBC) [Ratio] 29.0 % High 11.5-14.9 [facility] Comment on above: Performed By: #### B MP #### [facility] [address] [place] [address] Neon Tube Bender: Con Oseguera MD Hematocrit (Bld) [Volume fraction] 33.5 % Low 41-53 [facility] Comment on above: Performed By: #### B MP #### [facility] [address] [place] [address] Ne[employer] T[employer] Bender: Con Oseguera MD Hemoglobin (Bld) [Mass/Vol] 10.5 g/dL Low 13.5-17.5 [facility] Comment on above: Performed By: #### B MP #### [facility] [address] [place] [address] Ne[employer] T[employer] Bender: Con Oseguera MD MCH (RBC) [Entitic mass] 22.4 pg Low 26-34 [facility] Comment on above: Performed By: #### B MP #### [facility] [address] [place] [address] Ne[employer] T[employer] Bender: Con Oseguera MD MCHC (RBC) [Mass/Vol] 31.2 g/dL Normal 31-37 [facility] Comment on above: Performed By: #### B MP #### [facility] [address] [facility] [place] [address] Neon Tube Bender: Con Oseguera MD MCV (RBC) [Entitic vol] 71.7 fL Low 80-100 [facility] Comment on above: Performed By: #### B MP #### [facility] [place] [address] Neon Tube Bender: Con Oseguera MD Platelet mean volume (Bld) [Entitic vol] 8.6 fL Normal 6.0-12.0 [facility] Comment on above: Performed By: #### B MP #### [facility] [address] [place] [address]. [place] [address] Neon Tube Bender: Con Oseguera MD Platelets (Bld) [#/Vol] 273 10*3/uL Normal 150-450 [facility] Comment on above: Performed By: #### B MP #### [facility] [address] [place] [address]. [place] [address] Neon Tube Bender: Con Oseguera MD RBC (Bld) [#/Vol] 4.68 10*6/uL Normal 4.5-5.9 [facility] Comment on above: Performed By: #### B MP #### [facility] [address] [place] [address]. [place] [address] Neon Tube Bender: Con Oseguera MD WBC (Bld) [#/Vol] 10.3 10*3/uL Normal 3.5-11.0 [facility] Comment on above: Performed By: #### B MP #### [facility] [address] [place] [address] Neon Tube Bender: Con Oseguera MD Abs.Imm.Granulocyte NOT REPORTED Normal 0.00-0.30 [facility] Comment on above: Performed By: #### B MP #### [facility] [address] [place] [address] Neon Tube Bender: Con Oseguera MD Auto Diff Performed NOT REPORTED Normal [facility] Comment on above: Performed By: #### B MP #### [facility] [address] [place] [address] Neon Tube Bender: Con Oseguera MD Immature granulocytes (Bld) [#/Vol] NOT REPORTED Normal 0 [facility] Comment on above: Performed By: #### B MP #### [facility] [address] [place] [address] Neon Tube Bender: Con Oseguera MD NRBC Automated NOT REPORTED Normal [facility] Comment on above: Performed By: #### B MP #### [facility] [place] [address] Neon Tube Bender: Con Oseguera MD Platelets (Bld) [#/Vol] NOT REPORTED Normal [facility] Comment on above: Performed By: #### B MP #### [facility] [address] [place] [address] Neon Tube Bender: Con Oseguera MD RBC morphology finding Nom (Bld) NOT REPORTED Normal [facility] Comment on above: Performed By: #### B MP #### [facility] [address] [facility] [place] [address] Neon Tube Bender: Con Oseguera MD WBC Morphology NOT REPORTED Normal [facility] Comment on above: Performed By: #### B MP #### [facility] [place] [address] Neon Tube Bender: Con Oseguera MD CT ABDOMEN PELVIS WO [...] Del Angel MD 03/07/19 Final result Normal [facility] EXAMINATION: CT OF THE ABDOMEN AND [...] Degenerative changes of the spine are present. [facility], [place] Bibasilar consolidative changes and right middle lobe pulmonary infiltrates, consistent with pneumonia in the appropriate clinical setting. Mild left pleural effusion. Diverticulosis coli, without evidence of diverticulitis or colitis. Prostatomegaly. [place], [place] Stan, [facility] Incoming Radiant Results From [employer] - 03/07/2019 7:00 PM EDT EXAMINATION: CT [...] without evidence of diverticulitis or colitis. Prostatomegaly. [place], [place] Comp Metabolic Profon 2018 (cont.) Normal [facility] Comment on above: Result Comment: Aver age GFR for 70 or more years old: 75 mL/min/1.73sq m Chronic Kidney Disease: <60 mL/min/1.73sq m Kidney failure: <15 mL/min/1.73sq m eGFR calculated using average adult body mass. Additional eGFR calculator available at: http://www.cocone.[employer]/multiple_crcl_2012.htm Performed By: #### B MP #### [facility] [address] [facility] [place] [address] Neon Tube Bender: Con Oseguera MD Albumin [Mass/Vol] 3.8 g/dL Normal 3.5-5.2 [facility] Comment on above: Performed By: #### B MP #### [facility] [place] [address] Neon Tube Bender: Con Oseguera MD Alkaline Phos 166 U/L High 40-129 [facility] Comment on above: Performed By: #### B MP #### [facility] [address] [place] [address]. [place] [address] Neon Tube Bender: Con Oseguera MD ALT [Catalytic activity/Vol] 28 U/L Normal 5-41 [facility] Comment on above: Performed By: #### B MP #### [facility] [address] [place] [address] Neon Tube Bender: Con Oseguera MD Anion gap [Moles/Vol] 12 mmol/L Normal 9-17 [facility] Comment on above: Performed By: #### B MP #### [facility] [address] [place] [address] Neon Tube Bender: Con Oseguera MD AST [Catalytic activity/Vol] 26 U/L Normal <40 [facility] Comment on above: Performed By: #### B MP #### [facility] [place] [address] Neon Tube Bender: Con Oseguera MD Bilirubin Ql (U) 0.20 mg/dL Low 0.3-1.2 [facility] Comment on above: Performed By: #### B MP #### [facility] [address] [place] [address] Neon Tube Bender: Con Oseguera MD Calcium [Mass/Vol] 9.5 mg/dL Normal 8.6-10.4 [facility] Comment on above: Performed By: #### B MP #### [facility] [address] [place] [address] Neon Tube Bender: Con Oseguera MD Chloride [Moles/Vol] 98 mmol/L Normal 98-107 [facility] Comment on above: Performed By: #### B MP #### [facility] [address] [place] [address] Neon Tube Bender: Con Oseguera MD CO2 [Moles/Vol] 28 mmol/L Normal 20-31 [facility] Comment on above: Performed By: #### B MP #### [facility] [address] [place] [address] Neon Tube Bender: Con Oseguera MD Creatinine [Mass/Vol] 1.70 mg/dL High 0.70-1.20 [facility] Comment on above: Performed By: #### B MP #### [facility] [address] [place] [address] Neon Tube Bender: Con Oseguera MD GFR, Amer 47 mL/min Low >60 [facility] Comment on above: Performed By: #### B MP #### [facility] [address] [place] [address] Neon Tube Bender: Con Oseguera MD GFR,non Amer 39 mL/min Low >60 [facility] Comment on above: Performed By: #### B MP #### [facility] [address] [place] [address] Neon Tube Bender: Con Oseguera MD Glucose [Mass/Vol] 63 mg/dL Low 70-99 [facility] Comment on above: Performed By: #### B MP #### [facility] [address] [place] [address] Neon Tube Bender: Con Oseguera MD Potassium [Moles/Vol] 4.6 mmol/L Normal 3.7-5.3 [facility] Comment on above: Performed By: #### B MP #### [facility] [address] [place] [address] Neon Tube Bender: Con Oseguera MD Protein [Mass/Vol] 6.8 g/dL Normal 6.4-8.3 [facility] Comment on above: Performed By: #### B MP #### [facility] [address] [place] [address] Neon Tube Bender: Con Oseguera MD Sodium [Moles/Vol] 138 mmol/L Normal 135-144 [facility] Comment on above: Performed By: #### B MP #### [facility] [address] [place] [address] Neon Tube Bender: Con Oseguera MD Urea nitrogen [Mass/Vol] 30 mg/dL High 8-23 [facility] Comment on above: Performed By: #### B MP #### [facility] [address] [place] [address] Neon Tube Bender: Con Oseguera MD Albumin/Globulin [Mass ratio] NOT REPORTED Normal 1.0-2.5 [facility] Comment on above: Performed By: #### B MP #### [facility] [address] [place] [address] Neon Tube Bender: Con Oseguera MD BUN/CRE Ratio NOT REPORTED Normal 9-20 [facility] Comment on above: Performed By: #### B MP #### [facility] [address] [place] [address] Neon Tube Bender: Con Oseguera MD Staging: NOT REPORTED Normal [facility] Comment on above: Performed By: #### B MP #### [facility] [address] [place] [address] Neon Tube Bender: Con Oseguera MD Comprehensive Metabolic Pane blanca 03-07-2019 Albumin [Mass/Vol] 3.8 g/dL 3.5 - 5.2 g/dL [place], [place] Albumin/Globulin [Mass ratio] NOT REPORTED [place] ALP [Catalytic activity/Vol] 166 U/L High 40 - 129 U/L [place] ALT [Catalytic activity/Vol] 28 U/L 5 - 41 U/L [place] Anion gap [Moles/Vol] 12 mmol/L 9 - 17 mmol/L [place] AST [Catalytic activity/Vol] 26 U/L <40 [place] Bilirubin Ql (U) 0.20 mg/dL Low 0.3 - 1.2 mg/dL [place] Bun/Cre Ratio NOT REPORTED [place], [place] Calcium [Mass/Vol] 9.5 mg/dL 8.6 - 10. 4 mg/dL [place] Chloride [Moles/Vol] 98 mmol/L 98 - 10 7 mmol/L [place] CO2 [Moles/Vol] 28 mmol/L 20 - 31 mmol/L [place] Creatinine [Mass/Vol] 1.7 mg/dL High 0.7 - 1.2 mg/dL [place] GFR 47 mL/min Low >60 [place], [place] GFR Non- 39 mL/min Low >60 [place] GFR/1.73 sq M predicted among non-blacks MDRD (S/P/Bld) [Vol rate/Area] NOT REPORTED [place] GFR/1.73 sq M predicted among non-blacks MDRD (S/P/Bld) [Vol rate/Area] [place], [place] Comment on above: Average GFR for 70 o r more years old: 75 mL/min/1.73sq m Chronic Kidney Disease: <60 mL/min/1.73sq m Kidney failure: <15 mL/min/1.73sq m eGFR calculated using average adult body mass. Additional eGFR calculator available at: http://www.cocone.[employer] [facility]/multiple_crcl_2012.htm Glucose [Mass/Vol] 63 mg/dL Low 70 - 99 mg/dL [place], [place] Potassium [Moles/Vol] 4.6 mmol/L 3.7 - 5.3 mmol/L [place] Protein [Mass/Vol] 6.8 g/dL 6.4 - 8.3 g/dL [place], [place] Sodium [Moles/Vol] 138 mmol/L 135 - 144 mmol/L [place] Urea nitrogen [Mass/Vol] 30 mg/dL High 8 - 23 mg/dL [place] Lipaseon 03-07-2019 Lipase [Catalytic activity/Vol] 83 U/L High 13-60 [facility] Comment on above: Performed By: #### B MP #### [facility] [address] [place] [address] Neon Tube Bender: Con Oseguera MD Lipase [Catalytic activity/Vol] 83 U/L High 13 - 60 U/L [place] Microscopic Urinalysison Amorphous, UA NOT REPORTED None [place], [place] Bacteria, UA MODERATE Abnormal None [place], [place] Casts UA NOT REPORTED /LPF [place], [place] Crystals UA NOT REPORTED None /HPF [place], [place] Epithelial Cells UA 0 TO 2 /HPF [place] Interpretation and review of laboratory results Abnormal [place] Mucus, UA NOT REPORTED None [place], [place] Other Observations UA NOT REPORTED NOT REQ. M [place], [place] RBC (U) [#/Vol] 10 TO 20 /HPF [place], [place] Renal Epithelial, Urine NOT REPORTED 0 /HPF [place], [place] Trichomonas, UA NOT REPORTED None [place], [place] WBC, UA 20 TO 50 /HPF [place] Yeast, UA NOT REPORTED None [place], [place] - [place] Otheron 03-07-2019 Immature granulocytes (Bld) [#/Vol] NOT REPORTED [place] Interpretation and review of laboratory results Abnormal [place] POC Glucose Fingerstickon Glucose [Mass/Vol] 167 mg/dL High 75 - 110 mg/dL [place] Interpretation and review of laboratory results Abnormal [place] Glucose [Mass/Vol] 124 mg/dL High 75 - 110 mg/dL [place], [place] Interpretation and review of laboratory results Abnormal [place], [place] POCT Glucoseon 03-07-2019 Glucose [Mass/Vol] 124 mg/dL [place] Interpretation and review of laboratory results Normal [place], [place] QC OK? y [place] Troponinon 03-07-2019 Troponin I.cardiac [Mass/Vol] 27 ng/L High 0-22 [facility] Comment on above: Result Comment: High Sensitivity Troponin values cannot be compared with other Troponin methodologies. Patients with high levels of Biotin oral intake (i.e >5mg/day) may have falsely decreased Troponin levels. Samples collected within 8 hours of biotin intake may require additional information for diagnosis. Performed By: #### B MP #### [facility] [address] [place] [address] Neon Tube Bender: Con Oseguera MD Troponin I.cardiac [Mass/Vol] 29 ng/L High 0-22 [facility] Comment on above: Result Comment: High Sensitivity Troponin values cannot be compared with other Troponin methodologies. Patients with high levels of Biotin oral intake (i.e >5mg/day) may have falsely decreased Troponin levels. Samples collected within 8 hours of biotin intake may require additional information for diagnosis. Performed By: #### B MP #### [facility] [address] [facility] [place], [place] [id number] Neon Tube Bender: Con Oseguera MD Interpretation and review of laboratory results Abnormal [place] Troponin I.cardiac [Mass/Vol] NOT REPORTED [place] Troponin T.cardiac [Mass/Vol] NOT REPORTED <0.03 ng/mL [place] Troponin, High Sensitivity 27 ng/L High 0 - 22 ng/L [place] Comment on above: High Sensitivity Troponin values cannot be compared with other Troponin methodologies. Patients with high levels of Biotin oral intake (i.e >5mg/day) may have falsely decreased Troponin levels. Samples collected within 8 hours of biotin intake may require additional information for diagnosis. Troponin I.cardiac [Mass/Vol] NOT REPORTED Normal [facility] Comment on above: Performed By: #### B MP #### [facility] [address] [place] [address] Neon Tube Bender: Con Oseguera MD Troponin I.cardiac [Mass/Vol] NOT REPORTED Normal <0.03 [place] Comment on above: Performed By: #### B MP #### [facility] [address] [facility] [place] [address] Neon Tube Bender: Con Oseguera MD Interpretation and review of laboratory results Abnormal [place] Troponin T.cardiac [Mass/Vol] NOT REPORTED <0.03 ng/mL [place] Troponin, High Sensitivity 29 ng/L High 0 - 22 ng/L [place] Comment on above: High Sensitivity Troponin values cannot be compared with other Troponin methodologies. Patients with high levels of Biotin oral intake (i.e >5mg/day) may have falsely decreased Troponin levels. Samples collected within 8 hours of biotin intake may require additional information for diagnosis. UA w/Reflex Cultureon 2018 Acetoacetic Acid,Ur Negative Normal NEG [facility] Comment on above: Performed By: #### B MP #### [facility] [address] [facility] [place] [address] Neon Tube Bender: Con Oseguera MD Bilirubin, SemiQt,Ur Negative Normal NEG [facility] Comment on above: Performed By: #### B MP #### [facility] [address] [facility] [place] [address] Neon Tube Bender: Con Oseguera MD Color (U) YELLOW Normal YEL [facility] Comment on above: Performed By: #### B MP #### [facility] [address] [facility] [place] [address] Neon Tube Bender: Con Oseguera MD Glucose Ql (U) Negative Normal NEG [facility] Comment on above: Performed By: #### B MP #### [facility] [address] [place] [address] Neon Tube Bender: Con Oseguera MD Hemoglobin, Ur MOD Abnormal NEG [facility] Comment on above: Performed By: #### B MP #### [facility] [address] [place] [address] Neon Tube Bender: Con Oseguera MD Leukocyte esterase Test strip Ql (U) LARGE Abnormal NEG [facility] Comment on above: Performed By: #### B MP #### [facility] [address] [place] [address] Neon Tube Bender: Con Oseguera MD Nitrite,Ur Negative Normal NEG [facility] Comment on above: Performed By: #### B MP #### [facility] [address] [place] [address] Neon Tube Bender: Con Oseguera MD pH (U) 6.5 [pH] Normal 5.0-8.0 [facility] Comment on above: Performed By: #### B MP #### [facility] [address] [facility] [place] [address] Neon Tube Bender: Con Oseguera MD Protein Ql (U) 2+ Abnormal NEG [facility] Comment on above: Performed By: #### B MP #### [facility] [address] [place] [address] Neon Tube Bender: Con Oseguera MD Specific gravity (U) [Rel density] 1.017 Normal 1.000-1.030 [facility] Comment on above: Performed By: #### B MP #### [facility] [address] [place] [address] Neon Tube Bender: Con Oseguera MD Turbidity CLOUDY Abnormal CLEAR [facility] Comment on above: Performed By: #### B MP #### [facility] [address] [place] [address] Neon Tube Bender: Con Oseguera MD Urobilinogen,Ur Normal Normal NORM [facility] Comment on above: Performed By: #### B MP #### [facility] [address] [facility] [place] [address] Neon Tube Bender: Con Oseguera MD Comment NOT REPORTED Normal [facility] Comment on above: Performed By: #### B MP #### [facility] [address] [facility] [place] [address] Neon Tube Bender: Con Oseguera MD Urinalysis Reflex to Culture on 03-07-2019 Bilirubin Urine Negative NEGATIVE [facility] [place] Color, UA YELLOW YELLOW [facility] [place] Glucose, Ur Negative NEGATIVE [facility] [place] Interpretation and review of laboratory results Abnormal [facility] [place] Ketones Ql (U) Negative NEGATIVE [facility] [place] Leukocyte esterase Test strip Ql (U) LARGE Abnormal NEGATIVE [facility] [place] Nitrite, Urine Negative NEGATIVE [facility]- [place] pH, UA 6.[address] [facility]- [place] Protein (U) [Mass/Vol] 2+ Abnormal NEGATIVE [facility] [place] Specific Doss, UA 1.017 [facility] Turbidity UA CLOUDY Abnormal CLEAR [facility] [place] Urinalysis Comments NOT REPORTED [facility] Urine Hgb MOD Abnormal NEGATIVE [facility] [place] Urobilinogen, Urine Normal Normal [facility] Urinalysis,Microon 9 ----- Normal [facility] Comment on above: Performed By: #### B MP #### [facility] [address] [facility] [place] [address] Neon Tube Bender: Con Oseguera MD Bacteria LM.HPF (Urine sed) [#/Area] MODERATE Abnormal NONE [facility] Comment on above: Performed By: #### B MP #### [facility] [address] [facility] [place] [address] Neon Tube Bender: Con Oseguera MD Epithelial cells LM.HPF (Urine sed) [#/Area] 0 TO 2 Normal [facility] Comment on above: Performed By: #### B MP #### [facility] [address] [facility] [place] [address] Neon Tube Bender: Con Oseguera MD RBC (U) [#/Vol] 10 TO 20 Normal [facility] Comment on above: Performed By: #### B MP #### [facility] [place] [address] Neon Tube Bender: Con Oseguera MD WBC (U) [#/Vol] 20 TO 50 Normal [facility] Comment on above: Performed By: #### B MP #### [facility] [address] [place] [address] [employer]: Con Oseguera MD Amorphous sediment LM Ql (Urine sed) NOT REPORTED Normal [facility] Comment on above: Performed By: #### B MP #### [facility] [place] [address] Neon Tube Bender: Con Oseguera MD Casts LM.LPF (Urine sed) [#/Area] NOT REPORTED Normal [facility] Comment on above: Performed By: #### B MP #### [facility] [place] [address] Neon Tube Bender: Con Oseguera MD Crystals LM Nom (Urine sed) NOT REPORTED Normal [facility] Comment on above: Performed By: #### B MP #### [facility] [place] [address] Neon Tube Bender: Con Oseguera MD Epithelial, Renal NOT REPORTED Normal 0 [facility] Comment on above: Performed By: #### B MP #### [facility] [place] [address] Ne[employer] Bender: Con Oseguera MD Mucus Strands NOT REPORTED Normal NONE [facility] Comment on above: Performed By: #### B MP #### [facility] [address] [facility] [place] [address] Ne[employer] T[employer] Bender: Con Oseguera MD Other Observations NOT REPORTED Normal NREQ [facility] Comment on above: Performed By: #### B MP #### [facility] [address] [facility] [place] [address] Ne[employer] Bender: Con Oseguera MD Trichomonas NOT REPORTED Normal NONE [facility] Comment on above: Performed By: #### B MP #### [facility] [address] [facility] [place] [address] Ne[employer] T[employer] Bender: Con Oseguera MD Yeast LM Ql (Urine sed) NOT REPORTED Normal [facility] Comment on above: Performed By: #### B MP #### [facility] [address] [facility] [place] [address] [employer]: Con Oseguera MD XR CHEST (2 VW)on [...] Yoni Faye MD 03/07/19 Final result Normal [facility] XR CHEST STANDARD (2 VW)on 0 03-07-2019 Stan, [facility] Incoming Radiant Results From [employer] - 03/07/2019 5:45 PM EDT EXAMINATION: TWO [...] bilaterally. Pneumonia is favored over atypical edema [place] Multifocal airspace disease bilaterally. Pneumonia is favored over atypical edema [place] EXAMINATION: TWO XRAY VIEWS OF THE [...] is noted. Small effusions are suggested bilaterally [place], [place] Magnesiumon 12-13-2018 Magnesium [Mass/Vol] 2.1 mg/dL Normal 1.6-2.6 [facility] Comment on above: Performed By: #### B MP #### [facility] [address] [facility]. [place], [place] [id number] Neon Tube Bender: Con Oseguera MD Basic Metabolic Profon 12-11 (cont.) Normal [facility] Comment on above: Result Comment: Aver age GFR for 70 or more years old: 75 mL/min/1.73sq m Chronic Kidney Disease: <60 mL/min/1.73sq m Kidney failure: <15 mL/min/1.73sq m eGFR calculated using average adult body mass. Additional eGFR calculator available at: http://www.cocone.[facility]/multiple_crcl_2012.htm Performed By: #### B MP #### [facility] [address] [facility] [place] [address] Neon Tube Bender: Con Oseguera MD Anion gap [Moles/Vol] 13 mmol/L Normal 9-17 [facility] Comment on above: Performed By: #### B MP #### [facility] [address] [place] [address] Neon Tube Bender: Con Oseguera MD Calcium [Mass/Vol] 8.6 mg/dL Normal 8.6-10.4 [facility] Comment on above: Performed By: #### B MP #### [facility] [address] [place] [address] Neon Tube Bender: Con Oseguera MD Chloride [Moles/Vol] 100 mmol/L Normal 98-107 [facility] Comment on above: Performed By: #### B MP #### [facility] [place] [address] Neon Tube Bender: Con Oseguera MD CO2 [Moles/Vol] 22 mmol/L Normal 20-31 [facility] Comment on above: Performed By: #### B MP #### [facility] [place] [address] Neon Tube Bender: Con Oseguera MD Creatinine [Mass/Vol] 1.02 mg/dL Normal 0.70-1.20 [facility] Comment on above: Performed By: #### B MP #### [facility] [address] [place] [address] Neon Tube Bender: Con Oseguera MD GFR, Amer >60 Normal >60 [facility] Comment on above: Performed By: #### B MP #### [facility] [address] [place] [address] Neon Tube Bender: Con Oseguera MD GFR,non Amer >60 Normal >60 [facility] Comment on above: Performed By: #### B MP #### [facility] [address] [place] [address] Neon Tube Bender: Con Oseguera MD Glucose [Mass/Vol] 151 mg/dL High 70-99 [facility] Comment on above: Performed By: #### B MP #### [facility] [address] [place] [address] Neon Tube Bender: Con Oseguera MD Potassium [Moles/Vol] 4.0 mmol/L Normal 3.7-5.3 [facility] Comment on above: Performed By: #### B MP #### [facility] [address] [place] [address] Neon Tube Bender: Con Oseguera MD Sodium [Moles/Vol] 135 mmol/L Normal 135-144 [facility] Comment on above: Performed By: #### B MP #### [facility] [address] [place] [address] Neon Tube Bender: Con Oseguera MD Urea nitrogen [Mass/Vol] 22 mg/dL Normal 8-23 [facility] Comment on above: Performed By: #### B MP #### [facility] [address] [place] [address] Neon Tube Bender: Con Oseguera MD BUN/CRE Ratio NOT REPORTED Normal 9-20 [facility] Comment on above: Performed By: #### B MP #### [facility] [address] [place] [address] Neon Tube Bender: Con Oseguera MD Staging: NOT REPORTED Normal [facility] Comment on above: Performed By: #### B MP #### [facility] [address] [place] [address] Neon Tube Bender: Con Oseguera MD CBC with Diffon 12-11-2018 Abs. Basophil 0.00 k/uL Normal 0.0-0.2 [facility] Comment on above: Performed By: #### B MP #### [facility] [address] [place] [address] Neon Tube Bender: Con Oseguera MD Abs.Neutrophil (Seg) 9.27 k/uL High 1.3-9.1 [facility] Comment on above: Performed By: #### B MP #### [facility] [address] [place] [address] Neon Tube Bender: Con Oseguera MD Basophils/100 WBC (Bld) 0 % Normal 0-2 [facility] Comment on above: Performed By: #### B MP #### [facility] [address] [place] [address] Neon Tube Bender: Con Oseguera MD Eosinophils (Bld) [#/Vol] 0.12 10*3/uL Normal 0.0-0.4 [facility] Comment on above: Performed By: #### B MP #### [facility] [address] [facility] [place] [address] Neon Tube Bender: Con Oseguera MD Eosinophils/100 WBC (Bld) 1 % Normal 0-4 [facility] Comment on above: Performed By: #### B MP #### [facility] [place] [address] Neon Tube Bender: Con Oseguera MD Lymphocytes (Bld) [#/Vol] 1.22 10*3/uL Normal 1.0-4.8 [facility] Comment on above: Performed By: #### B MP #### [facility] [address] [place] [address] Neon Tube Bender: Con Oseguera MD Lymphocytes/100 WBC (Bld) 10 % Low 24-44 [facility] Comment on above: Performed By: #### B MP #### [facility] [address] [facility] [place] [address] Neon Tube Bender: Con Oseguera MD Monocytes (Bld) [#/Vol] 1.59 10*3/uL High 0.1-1.3 [facility] Comment on above: Performed By: #### B MP #### [facility] [facility] [place] [address] Neon Tube Bender: Con Oseguera MD Monocytes/100 WBC (Bld) 13 % High 1-7 [facility] Comment on above: Performed By: #### B MP #### [facility] [place] [address] Neon Tube Bender: Con Oseguera MD Morphology Theo (Bld) [Interp] ANISOCYTOSIS PRESENT Normal [facility] Comment on above: Result Comment: MICR OCYTOSIS PRESENT HYPOCHROMIA PRESENT 1+ POLYCHROMASIA 1+ ECHINOCYTES 1+ ELLIPTOCYTES Performed By: #### B MP #### [facility] [facility] [place] [address] Neon Tube Bender: Con Oseguera MD Neutrophil (Seg) 76 % High 36-66 [facility] Comment on above: Performed By: #### B MP #### [facility] [place] [address] Neon Tube Bender: Con Oseguera MD Erythrocyte distribution width (RBC) [Ratio] 18.7 % High 11.5-14.9 [facility] Comment on above: Performed By: #### B MP #### [facility] [place] [address] Neon Tube Bender: Con Oseguera MD Hematocrit (Bld) [Volume fraction] 26.2 % Low 41-53 [facility] Comment on above: Performed By: #### B MP #### [facility] [address] [place] [address] Neon Tube Bender: Con Oseguera MD Hemoglobin (Bld) [Mass/Vol] 8.1 g/dL Low 13.5-17.5 [facility] Comment on above: Performed By: #### B MP #### [facility] [facility] [place] [address] Neon Tube Bender: Con Oseguera MD MCH (RBC) [Entitic mass] 20.5 pg Low 26-34 [facility] Comment on above: Performed By: #### B MP #### [facility] [address] [place] [address]. [place] [address] Neon Tube Bender: Con Oseguera MD MCHC (RBC) [Mass/Vol] 30.9 g/dL Low 31-37 [facility] Comment on above: Performed By: #### B MP #### [facility] [facility] [place] [address] Neon Tube Bender: Con Oseguera MD MCV (RBC) [Entitic vol] 66.4 fL Low 80-100 [facility] Comment on above: Performed By: #### B MP #### [facility] [address] [place] [address]. [place] [address] Neon Tube Bender: Con Oseguera MD Platelet mean volume (Bld) [Entitic vol] 9.3 fL Normal 6.0-12.0 [facility] Comment on above: Performed By: #### B MP #### [facility] [facility] [place] [address] Neon Tube Bender: Con Oseguera MD Platelets (Bld) [#/Vol] 234 10*3/uL Normal 150-450 [facility] Comment on above: Performed By: #### B MP #### [facility] [facility] [place] [address] Neon Tube Bender: Con Oseguera MD RBC (Bld) [#/Vol] 3.94 10*6/uL Low 4.5-5.9 [facility] Comment on above: Performed By: #### B MP #### [facility] [address] [facility] [place] [address] Neon Tube Bender: Con Oseguera MD WBC (Bld) [#/Vol] 12.2 10*3/uL High 3.5-11.0 [facility] Comment on above: Performed By: #### B MP #### [facility] [facility] [place] [address] Neon Tube Bender: Con Oseguera MD Abs.Imm.Granulocyte NOT REPORTED Normal 0.00-0.30 [facility] Comment on above: Performed By: #### B MP #### [facility] [facility] [place] [address] Neon Tube Bender: Con Oseguera MD Auto Diff Performed NOT REPORTED Normal [facility] Comment on above: Performed By: #### B MP #### [facility] [facility] [place] [address] Neon Tube Bender: Con Oseguera MD Immature granulocytes (Bld) [#/Vol] NOT REPORTED Normal 0 [facility] Comment on above: Performed By: #### B MP #### [facility] [facility] [place] [address] Neon Tube Bender: Con Oseguera MD NRBC Automated NOT REPORTED Normal [facility] Comment on above: Performed By: #### B MP #### [facility] [place] [address] Neon Tube Bender: Con Oseguera MD Platelets (Bld) [#/Vol] NOT REPORTED Normal [facility] Comment on above: Performed By: #### B MP #### [facility] [address] [facility] [place] [address] Neon Tube Bender: Con Oseguera MD RBC morphology finding Nom (Bld) NOT REPORTED Normal [facility] Comment on above: Performed By: #### B MP #### [facility] [address] [facility] [place] [address] Neon Tube Bender: oCn Oseguera MD WBC Morphology NOT REPORTED Normal [facility] Comment on above: Performed By: #### B MP #### [facility] [address] [facility] [place] [address] Neon Tube Bender: Con Oseguera MD Brain Natri. Peptideon 12-10 Natriuretic peptide B (Bld) [Mass/Vol] 1543 pg/mL High <300 [facility] Comment on above: Result Comment: Pro- BNP results cannot be compared to BNP results. Performed By: #### R EJEC, LIP, TROPI, CP, DIGC, BNP ####[facility] [id number] [facility] [place] [address] [facility] Director: Con Oseguera MD Natriuretic peptide B (Bld) [Mass/Vol] Pro-BNP Reference Range: Normal [facility] Comment on above: Result Comment: Rule Out: <300 Miranda Zone: Age <50 300-450 Age 50-75 300-900 Age >75 300-1800 Usually represents mild to moderate HF but other cardiopulmonary causes cannot be ruled out. Rule In: Age <50 >450 Age 50-75 >900 Age >75 >1800 Performed By: #### R EJEC, LIP, TROPI, CP, DIGC, BNP ####[facility] [address] [facility] [place] [address] Lab Director: Con Oseguera MD CBC with Diffon 12-10-2018 Abs. Basophil 0.00 k/uL Normal 0.0-0.2 [facility] Comment on above: Performed By: #### P T, CDP ####[facility] [address] [place] [address] Lab Director: Con Oseguera MD Abs.Neutrophil (Seg) 10.73 k/uL High 1.3-9.1 [facility] Comment on above: Performed By: #### P T, CDP ####[facility] [address], [place] [phone] Director: Con Oseguera MD Basophils/100 WBC (Bld) 0 % Normal 0-2 [facility] Comment on above: Performed By: #### P T, CDP ####[facility] [address], [place] [phone] Director: Con Oseguera MD Eosinophils (Bld) [#/Vol] 0.13 10*3/uL Normal 0.0-0.4 [facility] Comment on above: Performed By: #### P T, CDP ####[facility] [address], [place] [phone] Director: Con Oseguera MD Eosinophils/100 WBC (Bld) 1 % Normal 0-4 [facility] Comment on above: Performed By: #### P T, CDP ####[facility] [address], [place] [address])[phone] Director: Con Oseguera MD Lymphocytes (Bld) [#/Vol] 1.07 10*3/uL Normal 1.0-4.8 [facility] Comment on above: Performed By: #### P T, CDP ####[facility] [address], [place] [phone] Director: Con Oseguera MD Lymphocytes/100 WBC (Bld) 8 % Low 24-44 [facility] Comment on above: Performed By: #### P T, CDP ####[facility] [address] [place] [address] Lab Director: Con Oseguera MD Monocytes (Bld) [#/Vol] 1.47 10*3/uL High 0.1-1.3 [facility] Comment on above: Performed By: #### P T, CDP ####[facility] [address], [place] [phone] Director: Con Oseguera MD Monocytes/100 WBC (Bld) 11 % High 1-7 [facility] Comment on above: Performed By: #### P T, CDP ####[facility] [address] [place] [address] Lab Director: Con Oseguera MD Morphology Theo (Bld) [Interp] ANISOCYTOSIS PRESENT Normal [facility] Comment on above: Result Comment: HYPO CHROMIA PRESENT MICROCYTOSIS PRESENT 1+ ELLIPTOCYTES FEW ECHINOCYTES Performed By: #### P T, CDP ####[facility] [address], [place] [phone] Director: Con Oseguera MD Neutrophil (Seg) 80 % High 36-66 [facility] Comment on above: Performed By: #### P T, CDP ####[facility] [address] [place] [address] Lab Director: Con Oseguera MD Erythrocyte distribution width (RBC) [Ratio] 19.0 % High 11.5-14.9 [facility] Comment on above: Performed By: #### P T, CDP ####[facility] [address], [place] [phone] Director: Con Oseguera MD Hematocrit (Bld) [Volume fraction] 28.3 % Low 41-53 [facility] Comment on above: Performed By: #### P T, CDP ####[facility] [address] [place] [address] Lab Director: Con Oseguera MD Hemoglobin (Bld) [Mass/Vol] 8.7 g/dL Low 13.5-17.5 [facility] Comment on above: Performed By: #### P T, CDP ####[facility] [address] [facility] [place] [address] Lab Director: Con Oseguera MD MCH (RBC) [Entitic mass] 20.6 pg Low 26-34 [facility] Comment on above: Performed By: #### P T, CDP ####[facility] [address] [facility].[place], [place] [phone] Director: Con Oseguera MD MCHC (RBC) [Mass/Vol] 30.7 g/dL Low 31-37 [facility] Comment on above: Performed By: #### P T, CDP ####[facility] [address] [facility] [place] [address] Lab Director: Con Oseguera MD MCV (RBC) [Entitic vol] 67.1 fL Low 80-100 [facility] Comment on above: Performed By: #### P T, CDP ####[facility] [address] [facility].[place], [place] [phone] Director: Con Oseguera MD Platelet mean volume (Bld) [Entitic vol] 9.0 fL Normal 6.0-12.0 [facility] Comment on above: Performed By: #### P T, CDP ####[facility] [address] [facility].[place], [place] [phone] Director: Con Oseguera MD Platelets (Bld) [#/Vol] 249 10*3/uL Normal 150-450 [facility] Comment on above: Performed By: #### P T, CDP ####[facility] [address] [facility] [place] [address] Lab Director: Con Oseguera MD RBC (Bld) [#/Vol] 4.22 10*6/uL Low 4.5-5.9 [facility] Comment on above: Performed By: #### P T, CDP ####[facility] [address] [place] [address] Lab Director: Con Oseguera MD WBC (Bld) [#/Vol] 13.4 10*3/uL High 3.5-11.0 [facility] Comment on above: Performed By: #### P T, CDP ####[facility] [address] [facility].[place], [place] [phone] Director: Con Oseguera MD Abs.Imm.Granulocyte NOT REPORTED Normal 0.00-0.30 [facility] Comment on above: Performed By: #### P T, CDP ####[facility] [address] [facility], [place] [phone] Director: Con Oseguera MD Auto Diff Performed NOT REPORTED Normal [facility] Comment on above: Performed By: #### P T, CDP ####[facility] [address] [facility] [place] [address] Lab Director: Con Oseguera MD Immature granulocytes (Bld) [#/Vol] NOT REPORTED Normal 0 [facility] Comment on above: Performed By: #### P T, CDP ####[facility] [address] [facility] [place] [address] Lab Director: Con Oseguera MD NRBC Automated NOT REPORTED Normal [facility] Comment on above: Performed By: #### P T, CDP ####[facility] [address] [facility].[place], [place] [phone] Director: Con Oseguera MD Platelets (Bld) [#/Vol] NOT REPORTED Normal [facility] Comment on above: Performed By: #### P T, CDP ####[facility] [address] [place] [address] Lab Director: Con Oseguera MD RBC morphology finding Nom (Bld) NOT REPORTED Normal [facility] Comment on above: Performed By: #### P T, CDP ####[facility] [address] [place] [address] Lab Director: Con Oseguera MD WBC Morphology NOT REPORTED Normal [facility] Comment on above: Performed By: #### P T, CDP ####[facility] [address] [place] [address] lab Director: Con Oseguera MD CT ABDOMEN [...] Sawyer Jr., DO 12/10/18 Final result Normal [facility] Comp Metabolic Profon 2018 (cont.) Normal [facility] Comment on above: Result Comment: Aver age GFR for 70 or more years old: 75 mL/min/1.73sq m Chronic Kidney Disease: <60 mL/min/1.73sq m Kidney failure: <15 mL/min/1.73sq m eGFR calculated using average adult body mass. Additional eGFR calculator available at: http://www.cocone.[facility]/multiple_crcl_2012.htm Performed By: #### R EJEC, LIP, TROPI, CP, DIGC, BNP ####[facility] [address] [facility] [place] [address] Lab Director: Con Oseguera MD Alkaline Phos 125 U/L Normal 40-129 [facility] Comment on above: Result Comment: SPEC IMEN SLIGHTLY HEMOLYZED, RESULTS MAY BE ADVERSELY AFFECTED. Performed By: #### R EJEC, LIP, TROPI, CP, DIGC, BNP ####[facility] [address] [facility] [place] [address] lab Director: Con Oseguera MD ALT [Catalytic activity/Vol] 15 U/L Normal 5-41 [facility] Comment on above: Result Comment: SPEC IMEN SLIGHTLY HEMOLYZED, RESULTS MAY BE ADVERSELY AFFECTED. Performed By: #### R EJEC, LIP, TROPI, CP, DIGC, BNP ####[facility] [address] [facility] [place] [address] Lab Director: Con Oseguera MD Anion gap [Moles/Vol] 17 mmol/L Normal 9-17 [facility] Comment on above: Performed By: #### R EJEC, LIP, TROPI, CP, DIGC, BNP ####[facility] [address] [facility] [place] [address] Lab Director: Con Oseguera MD AST [Catalytic activity/Vol] 28 U/L Normal <40 [facility] Comment on above: Result Comment: SPEC IMEN SLIGHTLY HEMOLYZED, RESULTS MAY BE ADVERSELY AFFECTED. Performed By: #### R EJEC, LIP, TROPI, CP, DIGC, BNP ####[facility] [address] [facility] [place] [address] Lab Director: Con Oseguera MD Bilirubin Ql (U) 0.51 mg/dL Normal 0.3-1.2 [facility] Comment on above: Result Comment: SPEC IMEN SLIGHTLY HEMOLYZED, RESULTS MAY BE ADVERSELY AFFECTED. Performed By: #### R EJEC, LIP, TROPI, CP, DIGC, BNP ####[facility] [address] [facility] [place] [address] Lab Director: Con Oseguera MD Calcium [Mass/Vol] 9.1 mg/dL Normal 8.6-10.4 [facility] Comment on above: Result Comment: SPEC IMEN SLIGHTLY HEMOLYZED, RESULTS MAY BE ADVERSELY AFFECTED. Performed By: #### R EJEC, LIP, TROPI, CP, DIGC, BNP ####[facility] [address] [facility] [place] [address] Lab Director: Con Oseguera MD GFR, Amer >60 Normal >60 [facility] Comment on above: Performed By: #### R EJEC, LIP, TROPI, CP, DIGC, BNP ####[facility] [address] [place] [address] Lab Director: Con Oseguera MD GFR,non Amer >60 Normal >60 [facility] Comment on above: Performed By: #### R EJEC, LIP, TROPI, CP, DIGC, BNP ####[facility] [address] [place] [address] Lab Director: Con Oseguera MD Potassium [Moles/Vol] 4.8 mmol/L Normal 3.7-5.3 [facility] Comment on above: Result Comment: SPEC IMEN SLIGHTLY HEMOLYZED, RESULTS MAY BE ADVERSELY AFFECTED. Performed By: #### R EJEC, LIP, TROPI, CP, DIGC, BNP ####[facility] [address] [facility] [place] [address] Lab Director: Con Oseguera MD Protein [Mass/Vol] 6.9 g/dL Normal 6.4-8.3 [facility] Comment on above: Result Comment: SPEC IMEN SLIGHTLY HEMOLYZED, RESULTS MAY BE ADVERSELY AFFECTED. Performed By: #### R EJEC, LIP, TROPI, CP, DIGC, BNP ####[facility] [address] [facility] [place] [address] Lab Director: Con Oseguera MD Sodium [Moles/Vol] 134 mmol/L Low 135-144 [facility] Comment on above: Result Comment: SPEC IMEN SLIGHTLY HEMOLYZED, RESULTS MAY BE ADVERSELY AFFECTED. Performed By: #### R EJEC, LIP, TROPI, CP, DIGC, BNP ####[facility] [address] [place] [address] Lab Director: Con Oseguera MD Albumin [Mass/Vol] 4.1 g/dL Normal 3.5-5.2 [facility] Comment on above: Performed By: #### R EJEC, LIP, TROPI, CP, DIGC, BNP ####[facility] [address] [place] [address] lab Director: Con Oseguera MD Chloride [Moles/Vol] 99 mmol/L Normal 98-107 [facility] Comment on above: Performed By: #### R EJEC, LIP, TROPI, CP, DIGC, BNP ####[facility] [address] [place] [address] lab Director: Con Oseguera MD CO2 [Moles/Vol] 18 mmol/L Low 20-31 [facility] Comment on above: Performed By: #### R EJEC, LIP, TROPI, CP, DIGC, BNP ####[facility] [address] [place] [address] Lab Director: Con Oseguera MD Creatinine [Mass/Vol] 0.98 mg/dL Normal 0.70-1.20 [facility] Comment on above: Performed By: #### R EJEC, LIP, TROPI, CP, DIGC, BNP ####[facility] [address] [place] [address] lab Director: Con Oseguera MD Glucose [Mass/Vol] 148 mg/dL High 70-99 [facility] Comment on above: Performed By: #### R EJEC, LIP, TROPI, CP, DIGC, BNP ####[facility] [address] [place] [address] lab Director: Con Oseguera MD Urea nitrogen [Mass/Vol] 24 mg/dL High 8-23 [facility] Comment on above: Performed By: #### R EJEC, LIP, TROPI, CP, DIGC, BNP ####[facility] [address] [place] [address] Lab Director: Con Oseguera MD Albumin/Globulin [Mass ratio] NOT REPORTED Normal 1.0-2.5 [facility] Comment on above: Performed By: #### R EJEC, LIP, TROPI, CP, DIGC, BNP ####[facility] [address] [place] [address] lab Director: Con Oseguera MD BUN/CRE Ratio NOT REPORTED Normal 9-20 [facility] Comment on above: Performed By: #### R EJEC, LIP, TROPI, CP, DIGC, BNP ####[facility] [address] [facility] [place] [address] lab Director: Con Oseguera MD Staging: NOT REPORTED Normal [facility] Comment on above: Performed By: #### R EJEC, LIP, TROPI, CP, DIGC, BNP ####[facility] [address] [place] [address] lab Director: Con Oseguera MD Digoxinon 12-10-2018 Digoxin [Mass/Vol] ng/mL Low 0.5-2.0 [facility] Comment on above: Result Comment: Digoxin Reference Range: Heart Failure 0.5-0.9 Atrial Fibrillation 0.8-2.0 Performed By: #### R EJEC, LIP, TROPI, CP, DIGC, BNP ####[facility] [id number] [place] [address] Lab Director: Con Oseguera MD Digoxin [Mass/Vol] UNKNOWN Normal [facility] Comment on above: Performed By: #### R EJEC, LIP, TROPI, CP, DIGC, BNP ####[facility] [id number] [place] [address] lab Director: Con Oseguera MD Lipaseon 12-10-2018 Lipase [Catalytic activity/Vol] 48 U/L Normal 13-60 [facility] Comment on above: Result Comment: SPEC IMEN SLIGHTLY HEMOLYZED, RESULTS MAY BE ADVERSELY AFFECTED. Performed By: #### B MP #### [facility] [address] [place] [address] Neon Tube Bender: Con Oseguera MD PTon 12-10-2018 INR Coag (PPP) [Relative time] 1.3 {INR} Normal [facility] Comment on above: Result Comment: Non-therapeutic Range: INR = 0.9-1.2 Therapeutic Range: Moderate Anticoagulant Intensity: INR = 2.0-3.0 High Anticoagulant Intensity: INR = 2.5-3.5 Performed By: #### P T, CDP ####[facility] [id number] [place] [address] Lab Director: Con Oseguera MD PT Coag (PPP) [Time] 16.5 s High 11.8-14.6 [facility] Comment on above: Performed By: #### P T, CDP ####[facility] [id number] [place] [address] Lab Director: Con Oseguera MD Specimen Rejectionon 019 Reason for rejection Unable to perform testing: Specimen clotted. Normal [facility] Comment on above: Performed By: #### B MP #### [facility] [address] [place] [address] Neon Tube Bender: Con Oseguera MD Source of sample .BLOOD Normal [facility] Comment on above: Performed By: #### B MP #### [facility] [address] [place] [address] Neon Tube Bender: Con Oseguera MD Test ordered CDP Normal [facility] Comment on above: Performed By: #### B MP #### [facility] [address] [place] [address] Neon Tube Bender: Con Oseguera MD ----- NOT REPORTED Normal [facility] Comment on above: Performed By: #### B MP #### [facility] [address] [facility] [place] [address] Neon Tube Bender: Con Oseguera MD Troponinon 12-10-2018 Troponin I.cardiac [Mass/Vol] 28 ng/L High 0-22 [facility] Comment on above: Result Comment: High Sensitivity Troponin values cannot be compared with other Troponin methodologies. Patients with high levels of Biotin oral intake (i.e >5mg/day) may have falsely decreased Troponin levels. Samples collected within 8 hours of biotin intake may require additional information for diagnosis. Performed By: #### T ROPI ####[facility] [id number] [facility] [place] [address] Lab Director: Con Oseguera MD Troponin I.cardiac [Mass/Vol] NOT REPORTED Normal [facility] Comment on above: Performed By: #### T ROPI ####[facility] [id number] [facility] [place] [address] Lab Director: Con Oseguera MD Troponin I.cardiac [Mass/Vol] 30 ng/L High 0-22 [facility] Comment on above: Result Comment: High [...] R EJEC, LIP, TROPI, CP, DIGC, BNP ####[facility] [id number] [facility] [place] [address] Lab Director: Con Oseguera MD Troponin I.cardiac [Mass/Vol] NOT REPORTED Normal [facility] Comment on above: Performed By: #### R EJEC, LIP, TROPI, CP, DIGC, BNP ####[facility] [id number] [place] [address] Lab Director: Con Oseguera MD Urinalysis, Routineon 2018 Acetoacetic Acid,Ur Negative Normal NEG [facility] Comment on above: Performed By: #### U A ####[facility] [id number] [place] [address] Lab Director: Con Oseguera MD Bilirubin, SemiQt,Ur Negative Normal NEG [facility] Comment on above: Performed By: #### U A ####[facility] [address] [place] [address] Lab Director: Con Oseguera MD Color (U) YELLOW Normal YEL [facility] Comment on above: Performed By: #### U A ####[facility] [id number] [place] [address] Lab Director: Con Oseguera MD Comment Microscopic exam not performed based on chemical results unless requested in Normal [facility] Comment on above: Result Comment: orig inal order. Performed By: #### U A ####[facility] [address] [place] [address] [id number] Director: Con Oseguera MD Glucose Ql (U) Negative Normal NEG [facility] Comment on above: Performed By: #### U A ####[facility] [id number] [place] [address] Lab Director: Con Oseguera MD Hemoglobin, Ur Negative Normal NEG [facility] Comment on above: Performed By: #### U A ####[facility] [id number] [place] [address] Lab Director: Con Oseguera MD Leukocyte esterase Test strip Ql (U) Negative Normal NEG [facility] Comment on above: Performed By: #### U A ####[facility] [id number] [place] [address] [place] [address] [facility] Director: Con Oseguera MD Nitrite,Ur Negative Normal NEG [facility] Comment on above: Performed By: #### U A ####[facility] [id number] [place] [address] [facility] Director: Con Oseguera MD pH (U) 5.0 [pH] Normal 5.0-8.0 [facility] Comment on above: Performed By: #### U A ####[facility] [id number] [facility] [place] [address] lab Director: Con Oseguera MD Protein Ql (U) Negative Normal NEG [facility] Comment on above: Performed By: #### U A ####[address] [address] [facility] Director: Con Oseguera MD Specific gravity (U) [Rel density] 1.013 Normal 1.000-1.030 [facility] Comment on above: Performed By: #### U A ####[facility] [id number] [facility] [place] [address] lab Director: Con Oseguera MD Turbidity CLEAR Normal CLEAR [facility] Comment on above: Performed By: #### U A ####[facility] [id number] [place] [address].[place] [address] [facility] Director: Con Oseguera MD Urobilinogen,Ur Normal Normal NORM [facility] Comment on above: Performed By: #### U A ####[address] [address] [facility] Director: Con Oseguera MD XR CHEST [...] Sawyer Jr., DO 12/10/18 Final result Normal [facility] Basic Metabolic Profon 11-03 (cont.) Normal [facility] Comment on above: Result Comment: Aver age GFR for 70 or more years old: 75 mL/min/1.73sq m Chronic Kidney Disease: <60 mL/min/1.73sq m Kidney failure: <15 mL/min/1.73sq m eGFR calculated using average adult body mass. Additional eGFR calculator available at: http://www.[employer]/multiple_crcl_2012.htm Performed By: #### B MP #### [facility] [address] [facility] [place] [address] Neon Tube Bender: Con Oseguera MD Anion gap [Moles/Vol] 15 mmol/L Normal 9-17 [facility] Comment on above: Performed By: #### B MP #### [facility] [address] [facility] [place] [address] Neon Tube Bender: Con Oseguera MD Calcium [Mass/Vol] 8.9 mg/dL Normal 8.6-10.4 [facility] Comment on above: Performed By: #### B MP #### [facility] [address] [place] [address] Ne[employer] Tube Bender: Con Oseguera MD Chloride [Moles/Vol] 100 mmol/L Normal 98-107 [facility] Comment on above: Performed By: #### B MP #### [facility] [address] [place] [address] Ne[employer] Tube Bender: Con Oseguera MD CO2 [Moles/Vol] 21 mmol/L Normal 20-31 [facility] Comment on above: Performed By: #### B MP #### [facility] [address] [place] [address] Neon Tube Bender: Con Oseguera MD Creatinine [Mass/Vol] 1.17 mg/dL Normal 0.70-1.20 [facility] Comment on above: Performed By: #### B MP #### [facility] [address] [place] [address] Neon Tube Bender: Con Oseguera MD GFR, Amer >60 Normal >60 [facility] Comment on above: Performed By: #### B MP #### [facility] [address] [place] [address] Neon Tube Bender: Con Oseguera MD GFR,non Amer 60 mL/min Low >60 [facility] Comment on above: Performed By: #### B MP #### [facility] [address] [place] [address] Neon Tube Bender: Con Oseguera MD Glucose [Mass/Vol] 231 mg/dL High 70-99 [facility] Comment on above: Performed By: #### B MP #### [facility] [address] [place] [address] Neon Tube Bender: Con Oseguera MD Potassium [Moles/Vol] 4.0 mmol/L Normal 3.7-5.3 [facility] Comment on above: Performed By: #### B MP #### [facility] [address] [place] [address] Neon Tube Bender: Con Oseguera MD Sodium [Moles/Vol] 136 mmol/L Normal 135-144 [facility] Comment on above: Performed By: #### B MP #### [facility] [address] [place] [address] Neon Tube Bender: Con Oseguera MD Urea nitrogen [Mass/Vol] 27 mg/dL High - [facility] Comment on above: Performed By: #### B MP #### [facility] [address] [place] [address] Neon Tube Bender: Con Oseguera MD BUN/CRE Ratio NOT REPORTED Normal - [facility] Comment on above: Performed By: #### B MP #### [facility] [address] [place] [address] Neon Tube Bender: Con Oseguera MD Staging: NOT REPORTED Normal [facility] Comment on above: Performed By: #### B MP #### [facility] [address] [place] [address] Neon Tube Bender: Con Oseguera MD T3, Freeon 11-03-2018 Free T3 [Mass/Vol] 2.64 pg/mL Normal 2.02-4.43 [facility] Comment on above: Performed By: #### B MP #### [facility] [place] [address] Neon Tube Bender: Con Oseguera MD Thyroid Stim. Horm.on 2018 TSH Qn 5.66 m[IU]/L High 0.30-5.00 [facility] Comment on above: Performed By: #### B MP #### [facility] [address] [place] [address] Neon Tube Bender: Con Oseguera MD Thyroxine, Freeon 11-03-2018 Thyroxine, Free 0.92 ng/dL Low 0.93-1.70 [facility] Comment on above: Performed By: #### B MP #### [facility] [address] [place] [address] Neon Tube Bender: Con Oseguera MD Basic Metabolic Profon 10-23 (cont.) Normal [facility] Comment on above: Result Comment: Aver age GFR for 70 or more years old: 75 mL/min/1.73sq m Chronic Kidney Disease: <60 mL/min/1.73sq m Kidney failure: <15 mL/min/1.73sq m eGFR calculated using average adult body mass. Additional eGFR calculator available at: http://www.[employer]/multiple_crcl_2012.htm Performed By: #### B MP #### [facility] [address] [place] [address] Neon Tube Bender: Con Oseguera MD Anion gap [Moles/Vol] 14 mmol/L Normal 9-17 [facility] Comment on above: Performed By: #### B MP #### [facility] [place] [address] Neon Tube Bender: Con Oseguera MD Calcium [Mass/Vol] 9.3 mg/dL Normal 8.6-10.4 [facility] Comment on above: Performed By: #### B MP #### [facility] [place] [address] Neon Tube Bender: Con Oseguera MD Chloride [Moles/Vol] 100 mmol/L Normal 98-107 [facility] Comment on above: Performed By: #### B MP #### [facility] [address] [place] [address] Neon Tube Bender: Con Oseguera MD CO2 [Moles/Vol] 22 mmol/L Normal 20-31 [facility] Comment on above: Performed By: #### B MP #### [facility] [address] [place] [address] Neon Tube Bender: Con Oseguera MD Creatinine [Mass/Vol] 2.03 mg/dL High 0.70-1.20 [facility] Comment on above: Performed By: #### B MP #### [facility] [address] [place] [address] Neon Tube Bender: Con Oseguera MD GFR, Amer 38 mL/min Low >60 [facility] Comment on above: Performed By: #### B MP #### [facility] [address] [place] [address] Neon Tube Bender: Con Oseguera MD GFR,non Amer 32 mL/min Low >60 [facility] Comment on above: Performed By: #### B MP #### [facility] [address] [place] [address] Neon Tube Bender: Con Oseguera MD Glucose [Mass/Vol] 286 mg/dL High 70-99 [facility] Comment on above: Performed By: #### B MP #### [facility] [address] [place] [address] Neon Tube Bender: Con Oseguera MD Potassium [Moles/Vol] 5.2 mmol/L Normal 3.7-5.3 [facility] Comment on above: Performed By: #### B MP #### [facility] [address] [place] [address] Neon Tube Bender: Con Oseguera MD Sodium [Moles/Vol] 136 mmol/L Normal 135-144 [facility] Comment on above: Performed By: #### B MP #### [facility] [place] [address] Neon Tube Bender: Con Oseguera MD Urea nitrogen [Mass/Vol] 51 mg/dL High 8-23 [facility] Comment on above: Performed By: #### B MP #### [facility] [address] [place] [address] Neon Tube Bender: Con Oseguera MD BUN/CRE Ratio NOT REPORTED Normal 9-20 [facility] Comment on above: Performed By: #### B MP #### [facility] [address] [place] [address] Neon Tube Bender: Con Oseguera MD Staging: NOT REPORTED Normal [facility] Comment on above: Performed By: #### B MP #### [facility] [place] [address] Neon Tube Bender: Con Oseguera MD CBC with Diffon 10-23-2018 Abs. Basophil 0.09 k/uL Normal 0.0-0.2 [facility] Comment on above: Performed By: #### B MP #### [facility] [place] [address] Neon Tube Bender: Con Oseguera MD Abs.Neutrophil (Seg) 6.45 k/uL Normal 1.3-9.1 [facility] Comment on above: Performed By: #### B MP #### [facility] [place] [address] Neon Tube Bender: Con Oseguera MD Basophils/100 WBC (Bld) 1 % Normal 0-2 [facility] Comment on above: Performed By: #### B MP #### [facility] [place] [address] Neon Tube Bender: Con Oseguera MD Eosinophils (Bld) [#/Vol] 0.17 10*3/uL Normal 0.0-0.4 [facility] Comment on above: Performed By: #### B MP #### [facility] [place] [address] Neon Tube Bender: Con Oseguera MD Eosinophils/100 WBC (Bld) 2 % Normal 0-4 [facility] Comment on above: Performed By: #### B MP #### [facility] [address] [place] [address] Neon Tube Bender: Con Oseguera MD Lymphocytes (Bld) [#/Vol] 1.19 10*3/uL Normal 1.0-4.8 [facility] Comment on above: Performed By: #### B MP #### [facility] [address] [place] [address] Neon Tube Bender: Con Oseguera MD Lymphocytes/100 WBC (Bld) 14 % Low 24-44 [facility] Comment on above: Performed By: #### B MP #### [facility] [address] [place] [address] Neon Tube Bender: Con Oseguera MD Monocytes (Bld) [#/Vol] 0.60 10*3/uL Normal 0.1-1.3 [facility] Comment on above: Performed By: #### B MP #### [facility] [address] [place] [address] Neon Tube Bender: Con Oseguera MD Monocytes/100 WBC (Bld) 7 % Normal 1-7 [facility] Comment on above: Performed By: #### B MP #### [facility] [place] [address] Neon Tube Bender: Con Oseguera MD Morphology Theo (Bld) [Interp] ANISOCYTOSIS PRESENT Normal [facility] Comment on above: Result Comment: HYPO CHROMIA PRESENT MICROCYTOSIS PRESENT 1+ ELLIPTOCYTES 1+ ECHINOCYTES Performed By: #### B MP #### [facility] [address] [place] [address] Neon Tube Bender: Con Oseguera MD Neutrophil (Seg) 76 % High 36-66 [facility] Comment on above: Performed By: #### B MP #### [facility] [address] [place] [address] Neon Tube Bender: Con Oseguera MD Erythrocyte distribution width (RBC) [Ratio] 21.6 % High 11.5-14.9 [facility] Comment on above: Performed By: #### B MP #### [facility] [place] [address] Neon Tube Bender: Con Oseguera MD Hematocrit (Bld) [Volume fraction] 27.3 % Low 41-53 [facility] Comment on above: Performed By: #### B MP #### [facility] [place] [address] Neon Tube Bender: Con Oseguera MD Hemoglobin (Bld) [Mass/Vol] 8.5 g/dL Low 13.5-17.5 [facility] Comment on above: Performed By: #### B MP #### [facility] [place] [address] Neon Tube Bender: Con Oseguera MD MCH (RBC) [Entitic mass] 21.1 pg Low 26-34 [facility] Comment on above: Performed By: #### B MP #### [facility] [place] [address] Neon Tube Bender: Con Oseguera MD MCHC (RBC) [Mass/Vol] 30.9 g/dL Low 31-37 [facility] Comment on above: Performed By: #### B MP #### [facility] [place] [address] Neon Tube Bender: Con Oseguera MD MCV (RBC) [Entitic vol] 68.3 fL Low 80-100 [facility] Comment on above: Performed By: #### B MP #### [facility] [place] [address] Neon Tube Bender: Con Oseguera MD Platelet mean volume (Bld) [Entitic vol] 9.5 fL Normal 6.0-12.0 [facility] Comment on above: Performed By: #### B MP #### [facility] [address] [place] [address] Neon Tube Bender: Con Oseguera MD Platelets (Bld) [#/Vol] 300 10*3/uL Normal 150-450 [facility] Comment on above: Performed By: #### B MP #### [facility] [address] [place] [address] Neon Tube Bender: Con Oseguera MD RBC (Bld) [#/Vol] 4.00 10*6/uL Low 4.5-5.9 [facility] Comment on above: Performed By: #### B MP #### [facility] [address] [place] [address] Neon Tube Bender: Con Oseguera MD WBC (Bld) [#/Vol] 8.5 10*3/uL Normal 3.5-11.0 [facility] Comment on above: Performed By: #### B MP #### [facility] [address] [place] [address] Neon Tube Bender: Con Oseguera MD Abs.Imm.Granulocyte NOT REPORTED Normal 0.00-0.30 [facility] Comment on above: Performed By: #### B MP #### [facility] [address] [place] [address] Neon Tube Bender: Con Oseguera MD Auto Diff Performed NOT REPORTED Normal [facility] Comment on above: Performed By: #### B MP #### [facility] [address] [place] [address] Neon Tube Bender: Con Oseguera MD Immature granulocytes (Bld) [#/Vol] NOT REPORTED Normal 0 [facility] Comment on above: Performed By: #### B MP #### [facility] [address] [facility] [place] [address] Neon Tube Bender: Con Oseguera MD NRBC Automated NOT REPORTED Normal [facility] Comment on above: Performed By: #### B MP #### [facility] [address] [facility] [place] [address] Neon Tube Bender: Con Oseguera MD Platelets (Bld) [#/Vol] NOT REPORTED Normal [facility] Comment on above: Performed By: #### B MP #### [facility] [address] [facility] [place] [address] Neon Tube Bender: Con Oseguera MD RBC morphology finding Nom (Bld) NOT REPORTED Normal [facility] Comment on above: Performed By: #### B MP #### [facility] [address] [facility] [place] [address] Neon Tube Bender: Con Oseguera MD WBC Morphology NOT REPORTED Normal [facility] Comment on above: Performed By: #### B MP #### [facility] [address] [facility] [place] [address] Neon Tube Bender: Con Oseguera MD Comp Metabolic Profon 2018 (cont.) Normal [facility] Comment on above: Result Comment: Aver age GFR for 70 or more years old: 75 mL/min/1.73sq m Chronic Kidney Disease: <60 mL/min/1.73sq m Kidney failure: <15 mL/min/1.73sq m eGFR calculated using average adult body mass. Additional eGFR calculator available at: http://www.[employer]/multiple_crcl_2012.htm Performed By: #### C P, MG, CB, CDP #### [facility] [address] [facility] [place] [address] Neon Tube Bender: Con Oseguera MD Albumin [Mass/Vol] 3.9 g/dL Normal 3.5-5.2 [facility] Comment on above: Performed By: #### C P, MG, CB, CDP #### [facility] [address] [place] [address] Neon Tube Bender: Con Oseguera MD Alkaline Phos 90 U/L Normal 40-129 [facility] Comment on above: Performed By: #### C P, MG, CB, CDP #### [facility] [address] [place] [address] Neon Tube Bender: Con Oseguera MD ALT [Catalytic activity/Vol] 18 U/L Normal 5-41 [facility] Comment on above: Performed By: #### C P, MG, CB, CDP #### [facility] [address] [place] [address] Neon Tube Bender: Con Oseguera MD Anion gap [Moles/Vol] 14 mmol/L Normal 9-17 [facility] Comment on above: Performed By: #### C P, MG, CB, CDP #### [facility] [address] [place] [address] Neon Tube Bender: Con Oseguera MD AST [Catalytic activity/Vol] 21 U/L Normal <40 [facility] Comment on above: Performed By: #### C P, MG, CB, CDP #### [facility] [address] [place] [address] Neon Tube Bender: Con Oseguera MD Bilirubin Ql (U) 0.34 mg/dL Normal 0.3-1.2 [facility] Comment on above: Performed By: #### C P, MG, CB, CDP #### [facility] [address] [place] [address] Neon Tube Bender: Con Oseguera MD Calcium [Mass/Vol] 9.3 mg/dL Normal 8.6-10.4 [facility] Comment on above: Performed By: #### C P, MG, CB, CDP #### [facility] [address] [place] [address] Neon Tube Bender: Con Oseguera MD Chloride [Moles/Vol] 100 mmol/L Normal 98-107 [facility] Comment on above: Performed By: #### C P, MG, CB, CDP #### [facility] [address] [place] [address] Neon Tube Bender: Con Oseguera MD CO2 [Moles/Vol] 22 mmol/L Normal 20-31 [facility] Comment on above: Performed By: #### C P, MG, CB, CDP #### [facility] [place] [address] Neon Tube Bender: Con Oseguera MD Creatinine [Mass/Vol] 2.03 mg/dL High 0.70-1.20 [facility] Comment on above: Performed By: #### C P, MG, CB, CDP #### [facility] [address] [place] [address] Neon Tube Bender: Con Oseguera MD GFR, Amer 38 mL/min Low >60 [facility] Comment on above: Performed By: #### C P, MG, CB, CDP #### [facility] [address] [place] [address] Neon Tube Bender: Con Oseguera MD GFR,non Amer 32 mL/min Low >60 [facility] Comment on above: Performed By: #### C P, MG, CB, CDP #### [facility] [address] [place] [address] Neon Tube Bender: Con Oseguera MD Glucose [Mass/Vol] 286 mg/dL High 70-99 [facility] Comment on above: Performed By: #### C P, MG, CB, CDP #### [facility] [address] [place] [address] Neon Tube Bender: Cno Oseguera MD Potassium [Moles/Vol] 5.2 mmol/L Normal 3.7-5.3 [facility] Comment on above: Performed By: #### C P, MG, CB, CDP #### [facility] [address] [place] [address] Neon Tube Bender: Con Oseguera MD Protein [Mass/Vol] 6.6 g/dL Normal 6.4-8.3 [facility] Comment on above: Performed By: #### C P, MG, CB, CDP #### [facility] [place] [address] Neon Tube Bender: Con Oseguera MD Sodium [Moles/Vol] 136 mmol/L Normal 135-144 [facility] Comment on above: Performed By: #### C P, MG, CB, CDP #### [facility] [place] [address] Neon Tube Bender: Con Oseguera MD Urea nitrogen [Mass/Vol] 51 mg/dL High 8-23 [facility] Comment on above: Performed By: #### C P, MG, CB, CDP #### [facility] [place] [address] Neon Tube Bender: Con Oseguera MD Albumin/Globulin [Mass ratio] NOT REPORTED Normal 1.0-2.5 [facility] Comment on above: Performed By: #### C P, MG, CB, CDP #### [facility] [place] [address] Neon Tube Bender: Con Oseguera MD BUN/CRE Ratio NOT REPORTED Normal 9-20 [facility] Comment on above: Performed By: #### C P, MG, CB, CDP #### [facility] [address] [place] [address] Neon Tube Bender: Con Oseguera MD Staging: NOT REPORTED Normal [facility] Comment on above: Performed By: #### C P, MG, CB, CDP #### [facility] [address] [place] [address] Neon Tube Bender: Con Oseguera MD Magnesiumon 10-23-2018 Magnesium [Mass/Vol] 2.3 mg/dL Normal 1.6-2.6 [facility] Comment on above: Performed By: #### B MP #### [facility] [address] [place] [address] Neon Tube Bender: Con Oseguera MD Phosphorus, Inorg.on 019 Phosphorus, Inorg. 4.8 mg/dL High 2.5-4.5 [facility] Comment on above: Performed By: #### B MP #### [facility] [place] [address] Neon Tube Bender: Con Oseguera MD Basic Metabolic Profon 10-12 (cont.) Normal [facility] Comment on above: Result Comment: Aver age GFR for 70 or more years old: 75 mL/min/1.73sq m Chronic Kidney Disease: <60 mL/min/1.73sq m Kidney failure: <15 mL/min/1.73sq m eGFR calculated using average adult body mass. Additional eGFR calculator available at: http://www.cocone.com/multiple_crcl_2012.htm Performed By: #### B MP #### [facility] [address] [place] [address] Neon Tube Bender: Con Oseguera MD Anion gap [Moles/Vol] 14 mmol/L Normal 9-17 [facility] Comment on above: Performed By: #### B MP #### [facility] [address] [place] [address] Neon Tube Bender: Con Oseguera MD Calcium [Mass/Vol] 9.6 mg/dL Normal 8.6-10.4 [facility] Comment on above: Performed By: #### B MP #### [facility] [address] [place] [address] Neon Tube Bender: Con Oseguera MD Chloride [Moles/Vol] 103 mmol/L Normal 98-107 [facility] Comment on above: Performed By: #### B MP #### [facility] [address] [place] [address] Neon Tube Bender: Con Oseguera MD CO2 [Moles/Vol] 21 mmol/L Normal 20-31 [facility] Comment on above: Performed By: #### B MP #### [facility] [address] [place] [address] Neon Tube Bender: Con Oseguera MD Creatinine [Mass/Vol] 1.52 mg/dL High 0.70-1.20 [facility] Comment on above: Performed By: #### B MP #### [facility] [address] [place] [address] Neon Tube Bender: Con Oseguera MD GFR, Amer 54 mL/min Low >60 [facility] Comment on above: Performed By: #### B MP #### [facility] [address] [place] [address] Neon Tube Bender: Con Oseguera MD GFR,non Amer 44 mL/min Low >60 [facility] Comment on above: Performed By: #### B MP #### [facility] [address] [place] [address] Neon Tube Bender: Con Oseguera MD Glucose [Mass/Vol] 219 mg/dL High 70-99 [facility] Comment on above: Performed By: #### B MP #### [facility] [address] [place] [address] Neon Tube Bender: Con Oseguera MD Potassium [Moles/Vol] 4.8 mmol/L Normal 3.7-5.3 [facility] Comment on above: Performed By: #### B MP #### [facility] [address] [place] [address] Neon Tube Bender: Con Oseguera MD Sodium [Moles/Vol] 138 mmol/L Normal 135-144 [facility] Comment on above: Performed By: #### B MP #### [facility] [place] [address] Neon Tube Bender: Con Oseguera MD Urea nitrogen [Mass/Vol] 48 mg/dL High 8-23 [facility] Comment on above: Performed By: #### B MP #### [facility] [place] [address] Neon Tube Bender: Con Oseguera MD BUN/CRE Ratio NOT REPORTED Normal 9-20 [facility] Comment on above: Performed By: #### B MP #### [facility] [place] [address] Neon Tube Bender: Con Oseguera MD Staging: NOT REPORTED Normal [facility] Comment on above: Performed By: #### B MP #### [facility] [place] [address] Neon Tube Bender: Con Oseguera MD Basic Metabolic Profon 09-28 (cont.) Normal [facility] Comment on above: Result Comment: Aver age GFR for 70 or more years old: 75 mL/min/1.73sq m Chronic Kidney Disease: <60 mL/min/1.73sq m Kidney failure: <15 mL/min/1.73sq m eGFR calculated using average adult body mass. Additional eGFR calculator available at: http://www.cocone.com/multiple_crcl_2012.htm Performed By: #### B MP #### [facility] [address] [place] [address] Neon Tube Bender: Con Oseguera MD Anion gap [Moles/Vol] 13 mmol/L Normal 9-17 [facility] Comment on above: Performed By: #### B MP #### [facility] [place] [address] Neon Tube Bender: Con Oseguera MD Calcium [Mass/Vol] 9.2 mg/dL Normal 8.6-10.4 [facility] Comment on above: Performed By: #### B MP #### [facility] [address] [place] [address] Neon Tube Bender: Con Oseguera MD Chloride [Moles/Vol] 100 mmol/L Normal 98-107 [facility] Comment on above: Performed By: #### B MP #### [facility] [place] [address] Neon Tube Bender: Con Oseguera MD CO2 [Moles/Vol] 24 mmol/L Normal 20-31 [facility] Comment on above: Performed By: #### B MP #### [facility] [place] [address] Neon Tube Bender: Con Oseguera MD Creatinine [Mass/Vol] 1.46 mg/dL High 0.70-1.20 [facility] Comment on above: Performed By: #### B MP #### [facility] [place] [address] Neon Tube Bender: Con Oseguera MD GFR, Amer 56 mL/min Low >60 [facility] Comment on above: Performed By: #### B MP #### [facility] [address] [place] [address] Neon Tube Bender: Con Oseguera MD GFR,non Amer 46 mL/min Low >60 [facility] Comment on above: Performed By: #### B MP #### [facility] [address] [place] [address] Neon Tube Bender: Con Oseguera MD Glucose [Mass/Vol] 269 mg/dL High 70-99 [facility] Comment on above: Performed By: #### B MP #### [facility] [place] [address] Neon Tube Bender: Con Oseguera MD Potassium [Moles/Vol] 4.7 mmol/L Normal 3.7-5.3 [facility] Comment on above: Performed By: #### B MP #### [facility] [place] [address] Neon Tube Bender: Con Oseguera MD Sodium [Moles/Vol] 137 mmol/L Normal 135-144 [facility] Comment on above: Performed By: #### B MP #### [facility] [place] [address] Neon Tube Bender: Con Oseguera MD Urea nitrogen [Mass/Vol] 41 mg/dL High 8-23 [facility] Comment on above: Performed By: #### B MP #### [facility] [place] [address] Neon Tube Bender: Con Oseguera MD BUN/CRE Ratio NOT REPORTED Normal 9-20 [facility] Comment on above: Performed By: #### B MP #### [facility] [address] [facility] [place] [address] Neon Tube Bender: Con Oseguera MD Staging: NOT REPORTED Normal [facility] Comment on above: Performed By: #### B MP #### [facility] [address] [place] [address] Neon Tube Bender: Con Oseguera MD Basic Metabolic Profon 09-20 (cont.) Normal [facility] Comment on above: Result Comment: Aver age GFR for 70 or more years old: 75 mL/min/1.73sq m Chronic Kidney Disease: <60 mL/min/1.73sq m Kidney failure: <15 mL/min/1.73sq m eGFR calculated using average adult body mass. Additional eGFR calculator available at: http://www.[employer]/multiple_crcl_2012.htm Performed By: #### H H, BMP #### [facility] [place] [address] Neon Tube Bender: Con Oseguera MD Anion gap [Moles/Vol] 14 mmol/L Normal 9-17 [facility] Comment on above: Performed By: #### H H, BMP #### [facility] [place] [address] Neon Tube Bender: Con Oseguera MD Calcium [Mass/Vol] 9.1 mg/dL Normal 8.6-10.4 [facility] Comment on above: Performed By: #### H H, BMP #### [facility] [address] [place] [address] Neon Tube Bender: Con Oseguera MD Chloride [Moles/Vol] 98 mmol/L Normal 98-107 [facility] Comment on above: Performed By: #### H H, BMP #### [facility] [address] [place] [address] Neon Tube Bender: Con Oseguera MD CO2 [Moles/Vol] 24 mmol/L Normal 20-31 [facility] Comment on above: Performed By: #### H H, BMP #### [facility] [address] [place] [address] Neon Tube Bender: Con Oseguera MD Creatinine [Mass/Vol] 1.48 mg/dL High 0.70-1.20 [facility] Comment on above: Performed By: #### H H, BMP #### [facility] [address] [place] [address] Neon Tube Bender: Con Oseguera MD GFR, Amer 55 mL/min Low >60 [facility] Comment on above: Performed By: #### H H, BMP #### [facility] [address] [place] [address] Neon Tube Bender: Con Oseguera MD GFR,non Amer 46 mL/min Low >60 [facility] Comment on above: Performed By: #### H H, BMP #### [facility] [address] [place] [address] Neon Tube Bender: Con Oseguera MD Glucose [Mass/Vol] 168 mg/dL High 70-99 [facility] Comment on above: Performed By: #### H H, BMP #### [facility] [place] [address] Neon Tube Bender: Con Oseguera MD Potassium [Moles/Vol] 4.6 mmol/L Normal 3.7-5.3 [facility] Comment on above: Performed By: #### H H, BMP #### [facility] [address] [place] [address] Neon Tube Bender: Con Oseguera MD Sodium [Moles/Vol] 136 mmol/L Normal 135-144 [facility] Comment on above: Performed By: #### H H, BMP #### [facility] [address] [place] [address] Neon Tube Bender: Con Oseguera MD Urea nitrogen [Mass/Vol] 34 mg/dL High 8- [facility] Comment on above: Performed By: #### H H, BMP #### [facility] [address] [place] [address] Neon Tube Bender: Con Oseguera MD BUN/CRE Ratio NOT REPORTED Normal - [facility] Comment on above: Performed By: #### H H, BMP #### [facility] [address] [place] [address] Neon Tube Bender: Con Oseguera MD Staging: NOT REPORTED Normal [facility] Comment on above: Performed By: #### H H, BMP #### [facility] [address] [place] [address] Neon Tube Bender: Con Oseguera MD Hgb/Hcton 09-20-2018 Hematocrit (Bld) [Volume fraction] 26.8 % Low 41-53 [facility] Comment on above: Performed By: #### H H, BMP #### [facility] [address] [place] [address] Neon Tube Bender: Con Oseguera MD Hemoglobin (Bld) [Mass/Vol] 8.3 g/dL Low 13.5-17.5 [facility] Comment on above: Performed By: #### H H, BMP #### [facility] [address] [place] [address] Neon Tube Bender: Con Oseguera MD Basic Metabolic Profon 09-07 (cont.) Normal [facility] Comment on above: Result Comment: Aver age GFR for 70 or more years old: 75 mL/min/1.73sq m Chronic Kidney Disease: <60 mL/min/1.73sq m Kidney failure: <15 mL/min/1.73sq m eGFR calculated using average adult body mass. Additional eGFR calculator available at: http://www.cocone.[employer]/multiple_crcl_2012.htm Performed By: #### B MP #### [facility] [address] [place] [address] Neon Tube Bender: Con Oseguear MD Anion gap [Moles/Vol] 10 mmol/L Normal 9-17 [facility] Comment on above: Performed By: #### B MP #### [facility] [address] [place] [address] Neon Tube Bender: Con Oseguera MD Calcium [Mass/Vol] 9.1 mg/dL Normal 8.6-10.4 [facility] Comment on above: Performed By: #### B MP #### [facility] [place] [address] Neon Tube Bender: Con Oseguera MD Chloride [Moles/Vol] 103 mmol/L Normal 98-107 [facility] Comment on above: Performed By: #### B MP #### [facility] [place] [address] Neon Tube Bender: Con Oseguera MD CO2 [Moles/Vol] 25 mmol/L Normal 20-31 [facility] Comment on above: Performed By: #### B MP #### [facility] [place] [address] Neon Tube Bender: Con Oseguera MD Creatinine [Mass/Vol] 1.25 mg/dL High 0.70-1.20 [facility] Comment on above: Performed By: #### B MP #### [facility] [place] [address] Neon Tube Bender: Con Oseguera MD GFR, Amer >60 Normal >60 [facility] Comment on above: Performed By: #### B MP #### [facility] [address] [place] [address] Neon Tube Bender: Con Oseguera MD GFR,non Amer 55 mL/min Low >60 [facility] Comment on above: Performed By: #### B MP #### [facility] [address] [place] [address] Neon Tube Bender: Con Oseguera MD Glucose [Mass/Vol] 123 mg/dL High 70-99 [facility] Comment on above: Performed By: #### B MP #### [facility] [address] [place] [address] Neon Tube Bender: Con Oseguera MD Potassium [Moles/Vol] 4.7 mmol/L Normal 3.7-5.3 [facility] Comment on above: Performed By: #### B MP #### [facility] [address] [place] [address] Neon Tube Bender: Con Oseguera MD Sodium [Moles/Vol] 138 mmol/L Normal 135-144 [facility] Comment on above: Performed By: #### B MP #### [facility] [address] [place] [address] Neon Tube Bender: Con Oseguera MD Urea nitrogen [Mass/Vol] 28 mg/dL High 8-23 [facility] Comment on above: Performed By: #### B MP #### [facility] [address] [place] [address] Neon Tube Bender: Con Oseguera MD BUN/CRE Ratio NOT REPORTED Normal 9-20 [facility] Comment on above: Performed By: #### B MP #### [facility] [address] [place] [address] Neon Tube Bender: Con Oseguera MD Staging: NOT REPORTED Normal [facility] Comment on above: Performed By: #### B MP #### [facility] [address] [place] [address] Neon Tube Bender: Con Oseguera MD Basic Metabolic Profon 08-31 (cont.) Normal [facility] Comment on above: Result Comment: Aver age GFR for 70 or more years old: 75 mL/min/1.73sq m Chronic Kidney Disease: <60 mL/min/1.73sq m Kidney failure: <15 mL/min/1.73sq m eGFR calculated using average adult body mass. Additional eGFR calculator available at: http://www.[employer]/multiple_crcl_2011.htm Performed By: #### B MP #### [facility] [address] [facility] [place] [address] Neon Tube Bender: Con Oseguera MD Anion gap [Moles/Vol] 11 mmol/L Normal 9-17 [facility] Comment on above: Performed By: #### B MP #### [facility] [address] [facility] [place] [address] Neon Tube Bender: Con Oseguera MD Calcium [Mass/Vol] 9.4 mg/dL Normal 8.6-10.4 [facility] Comment on above: Performed By: #### B MP #### [facility] [address] [facility] [place] [address] Neon Tube Bender: Con Oseguera MD Chloride [Moles/Vol] 100 mmol/L Normal 98-107 [facility] Comment on above: Performed By: #### B MP #### [facility] [place] [address] Neon Tube Bender: Con Oseguera MD CO2 [Moles/Vol] 24 mmol/L Normal 20-31 [facility] Comment on above: Performed By: #### B MP #### [facility] [address] [place] [address] Neon Tube Bender: Con Oseguera MD Creatinine [Mass/Vol] 1.35 mg/dL High 0.70-1.20 [facility] Comment on above: Performed By: #### B MP #### [facility] [address] [place] [address] Neon Tube Bender: Con Oseguera MD GFR, Amer >60 Normal >60 [facility] Comment on above: Performed By: #### B MP #### [facility] [address] [place] [address] Neon Tube Bender: Con Oseguera MD GFR,non Amer 51 mL/min Low >60 [facility] Comment on above: Performed By: #### B MP #### [facility] [address] [place] [address] Neon Tube Bender: Con Oseguera MD Glucose [Mass/Vol] 133 mg/dL High 70-99 [facility] Comment on above: Performed By: #### B MP #### [facility] [address] [place] [address] Neon Tube Bender: Con Oseguera MD Potassium [Moles/Vol] 4.8 mmol/L Normal 3.7-5.3 [facility] Comment on above: Performed By: #### B MP #### [facility] [address] [place] [address] Neon Tube Bender: Con Oseguera MD Sodium [Moles/Vol] 135 mmol/L Normal 135-144 [facility] Comment on above: Performed By: #### B MP #### [facility] [address] [place] [address] Neon Tube Bender: Con Oseguera MD Urea nitrogen [Mass/Vol] 35 mg/dL High 8-23 [facility] Comment on above: Performed By: #### B MP #### [facility] [address] [place] [address] Neon Tube Bender: Con Oseguera MD BUN/CRE Ratio NOT REPORTED Normal 03-16 [facility] Comment on above: Performed By: #### B MP #### [facility] [address] [place] [address] Neon Tube Bender: Con Oseguera MD Staging: NOT REPORTED Normal [facility] Comment on above: Performed By: #### B MP #### [facility] [address] [place] [address] Neon Tube Bender: Con Oseguera MD XR ABDOMEN (KUB) (SINGLE [...] Crow Wright MD 08/21/18 Final result Normal [facility] Basic Metabolic Profon 08-16 (cont.) Normal [facility] Comment on above: Result Comment: Aver age GFR for 70 or more years old: 75 mL/min/1.73sq m Chronic Kidney Disease: <60 mL/min/1.73sq m Kidney failure: <15 mL/min/1.73sq m eGFR calculated using average adult body mass. Additional eGFR calculator available at: http://www.cocone.[employer]/multiple_crcl_2012.htm Performed By: #### B MP #### [facility] [address] [place] [address] Neon Tube Bender: Con Oseguera MD Anion gap [Moles/Vol] 11 mmol/L Normal 9-17 [facility] Comment on above: Performed By: #### B MP #### [facility] [address] [place] [address] Neon Tube Bender: Con Oseguera MD Calcium [Mass/Vol] 9.0 mg/dL Normal 8.6-10.4 [facility] Comment on above: Performed By: #### B MP #### [facility] [place] [address] Neon Tube Bender: Con Oseguera MD Chloride [Moles/Vol] 99 mmol/L Normal 98-107 [facility] Comment on above: Performed By: #### B MP #### [facility] [place] [address] Neon Tube Bender: Con Oseguera MD CO2 [Moles/Vol] 26 mmol/L Normal 20-31 [facility] Comment on above: Performed By: #### B MP #### [facility] [place] [address] Neon Tube Bender: Con Oseguera MD Creatinine [Mass/Vol] 1.46 mg/dL High 0.70-1.20 [facility] Comment on above: Performed By: #### B MP #### [facility] [place] [address] Neon Tube Bender: Con Oseguera MD GFR, Amer 56 mL/min Low >60 [facility] Comment on above: Performed By: #### B MP #### [facility] [address] [place] [address] Neon Tube Bender: Con Oseguera MD GFR,non Amer 46 mL/min Low >60 [facility] Comment on above: Performed By: #### B MP #### [facility] [address] [place] [address] Neon Tube Bender: Con Oseguera MD Glucose [Mass/Vol] 160 mg/dL High 70-99 [facility] Comment on above: Performed By: #### B MP #### [facility] [address] [place] [address] Neon Tube Bender: Con Oseguera MD Potassium [Moles/Vol] 4.4 mmol/L Normal 3.7-5.3 [facility] Comment on above: Performed By: #### B MP #### [facility] [address] [place] [address] Neon Tube Bender: Con Oseguera MD Sodium [Moles/Vol] 136 mmol/L Normal 135-144 [facility] Comment on above: Performed By: #### B MP #### [facility] [address] [place] [address] Neon Tube Bender: Con Oseguera MD Urea nitrogen [Mass/Vol] 42 mg/dL High 8-23 [facility] Comment on above: Performed By: #### B MP #### [facility] [address] [place] [address] Neon Tube Bender: Con Oseguera MD BUN/CRE Ratio NOT REPORTED Normal 9-20 [facility] Comment on above: Performed By: #### B MP #### [facility] [address] [place] [address] Neon Tube Bender: Con Oseguera MD Staging: NOT REPORTED Normal [facility] Comment on above: Performed By: #### B MP #### [facility] [place] [address] Ne[employer] Tube Bender: Con Oseguera MD CBCon 07-11-2018 Erythrocyte distribution width (RBC) [Ratio] 18.8 % High 11.5-14.9 [facility] [facility] Comment on above: Performed By: #### C BC #### [facility] [place] [address] Neon Tube Bender: Con Oseguera MD Hematocrit (Bld) [Volume fraction] 23.1 % Low 41-53 [facility] Comment on above: Performed By: #### C BC #### [facility] [address] [place] [address] Neon Tube Bender: Con Oseguera MD Hemoglobin (Bld) [Mass/Vol] 7.0 g/dL Critically low 13.5-17.5 [facility] Comment on above: Performed By: #### C BC #### [facility] [address] [place] [address] Neon Tube Bender: Con Oseguera MD MCH (RBC) [Entitic mass] 21.3 pg Low 26-34 [facility] Comment on above: Performed By: #### C BC #### [facility] [address] [place] [address] Neon Tube Bender: Con Oseguera MD MCHC (RBC) [Mass/Vol] 30.1 g/dL Low 31-37 [facility] Comment on above: Performed By: #### C BC #### [facility] [address] [place] [address] Neon Tube Bender: Con Oseguera MD MCV (RBC) [Entitic vol] 70.8 fL Low 80-100 [facility] Comment on above: Performed By: #### C BC #### [facility] [address] [place] [address] Neon Tube Bender: Con Oseguera MD Platelet mean volume (Bld) [Entitic vol] 8.8 fL Normal 6.0-12.0 [facility] Comment on above: Performed By: #### C BC #### [facility] [address] [facility] [place] [address] Neon Tube Bender: Con Oseguera MD Platelets (Bld) [#/Vol] 484 10*3/uL High 150-450 [facility] Comment on above: Performed By: #### C BC #### [facility] [address] [place] [address] Neon Tube Bender: Con Oseguera MD RBC (Bld) [#/Vol] 3.26 10*6/uL Low 4.5-5.9 [facility] Comment on above: Performed By: #### C BC #### [facility] [address] [facility] [place] [address] Neon Tube Bender: Con Oseguera MD WBC (Bld) [#/Vol] 10.6 10*3/uL Normal 3.5-11.0 [facility] Comment on above: Performed By: #### C BC #### [facility] [address] [facility] [place] [address] Neon Tube Bender: Con Oseguera MD NRBC Automated NOT REPORTED Normal [facility] Comment on above: Performed By: #### C BC #### [facility] [address] [facility] [place] [address] Neon Tube Bender: Con Oseguera MD Vital Signs Date Time Vital Sign Value Performing Clinician Megan chauhan 09-13-2023 09:22-0400 Blood Pressure Location SANDYJESSICA CESAR [facility] 09-13-2023 09:22-0400 Body temperature 98.42 [degF] SANDY ARSENIO [facility] 09-13-2023 09:22-0400 Diastolic blood pressure 52 mm[Hg] SANDY ARSENIO [facility] 09-13-2023 09:22-0400 Heart rate 72 /min SANDY ARSENIO [facility] 09-13-2023 09:22-0400 Respiratory rate 16 /min SANDY ARSENIO [facility] 09-13-2023 09:22-0400 Systolic blood pressure 111 mm[Hg] SANDY ARSENIO [facility] 09-06-2023 10:24-0400 Blood Pressure Location SANDY ARSENIO [facility] 09-06-2023 10:24-0400 Body temperature 98.6 [degF] SANDY ARSENIO [facility] 09-06-2023 10:24-0400 Diastolic blood pressure 78 mm[Hg] SANDY ARSENIO [facility] 09-06-2023 10:24-0400 Heart rate 84 /min SANDY ARSENIO [facility] 09-06-2023 10:24-0400 Systolic blood pressure 124 mm[Hg] SANDY ARSENIO [facility] 03-27-2019 17:01-0400 BMI (Body Mass Index) 27.46 kg/m2 Josh Faith [facility], [place] 03-27-2019 17:01-0400 Body Temperature 97.7 [degF] Josh Accomac [facility], [place] 03-27-2019 17:01-0400 Body weight 72.58 kg [facility] , [place] 03-27-2019 17:01-0400 BP Diastolic 58 mm[Hg] [facility] , [place] 03-27-2019 17:01-0400 BP Systolic 142 mm[Hg] [facility] , [place] 03-27-2019 17:01-0400 Height 162.6 cm [facility] , [place] 03-27-2019 17:01-0400 Pulse (Heart Rate) 51 /min [facility], [place] 03-27-2019 17:01-0400 Pulse Oximetry 100 % [facility] , [place] 03-27-2019 17:01-0400 Respiratory Rate 14 /min [facility], [place] 03-16-2019 01:33-0400 BMI (Body Mass Index) 23.68 kg/m2 [facility], [place] 03-16-2019 01:33-0400 Body Temperature 98.01 [degF] Javier [facility], [place] 03-16-2019 01:33-0400 Body weight 74.84 kg [facility] , [place] 03-16-2019 01:33-0400 BP Diastolic 70 mm[Hg] [facility] , [place] 03-16-2019 01:33-0400 BP Systolic 145 mm[Hg] [facility] , [place] 03-16-2019 01:33-0400 Height 177.8 cm [facility] , [place] 03-16-2019 01:33-0400 Pulse (Heart Rate) 100 /min [facility], [place] 03-16-2019 01:33-0400 Pulse Oximetry 97 % [facility] , [place] 03-16-2019 01:33-0400 Respiratory Rate 16 /min [facility], [place] 03-13-2019 15:00-0400 Pulse Oximetry 95 % [facility] [place] 03-13-2019 15:00-0400 Respiratory Rate 16 /min [facility] [place] 03-13-2019 12:07-0400 Body Temperature 97.3 [degF] [facility] [place] 03-13-2019 12:07-0400 BP Diastolic 54 mm[Hg] [facility] [place] 03-13-2019 12:07-0400 BP Systolic 119 mm[Hg] [facility] [place] 03-13-2019 12:07-0400 Pulse (Heart Rate) 73 /min [facility] [place] 03-12-2019 06:00-0400 BMI (Body Mass Index) 22.24 kg/m2 [facility] [place] 03-12-2019 06:00-0400 Body weight 70.3 kg [facility] [place] 03-08-2019 07:02-0400 Height 177.8 cm Wolfgang [facility], [place] Encounters Encounter Date Encounter Type Care Provider Facility Start: 10-10-2023 ambulatory SANDY E ARSENIO Facili ty:[facility] Start: 09-15-2023 ambulatory SANDY E ARSENIO Facili ty:[facility] Start: 09-13-2023 End: 09-14-2023 ambulatory SANDY E ARSENIO Facility:[facility] Start: 09-13-2023 End: 09-13-2023 Patient encounter procedure SANDY Susy ARSENIO [facility] Start: 09-06-2023 End: 09-07-2023 ambulatory SANDY E ARSENIO Facility: [place] Start: 09-06-2023 End: 09-06-2023 Patient encounter procedure SANDY E ARSENIO [facility] Start: 08-01-2023 Clinisync Result Encounter Waldemar Orta MD Work Phone: [facility] Unsolicited Start: 08-01-2023 Clinisync Result Encounter Waldemar Orta MD Work Phone: [facility] Unsolicited Start: 06-23-2023 ambulatory SANDY ARSENIO Facility : [facility] Start: 03-27-2019 End: 03-27-2019 Emergency department patient visit [facility] Start: 03-27-2019 End: 03-27-2019 Emergency department patient visit Josh Hess Work Phone: [facility] ED Comment on above: Acute kidney injury (HCC) (Primary Dx) Start: 03-16-2019 End: 03-16-2019 Emergency department patient visit JAVIER DEVRIES [facility] Start: 03-16-2019 End: 03-16-2019 Emergency department patient visit Javier Devries Work Phone: [facility] ED Comment on above: Acute urinary retent ion (Primary Dx) Start: 03-07-2019 End: 03-13-2019 Evaluation and management of inpatient [facility] Start: 03-07-2019 End: 03-13-2019 Evaluation and management of inpatient Wolfgang Abhi Ruiz Work Phone: [facility] Med Surg Comment on above: VANESA (acute kidney in jury) (HCC) (Primary Dx); Pneumonia due to organism; Acute cystitis without hematuria Start: 12-10-2018 End: 12-13-2018 Evaluation and management of inpatient [facility] Start: 11-03-2018 End: 11-04-2018 Patient encounter procedure REBECA ORELLANA [facility] Start: 10-23-2018 End: 10-24-2018 Patient encounter procedure LEOBARDO JUAREZ [facility] Start: 10-12-2018 End: 10-13-2018 Patient encounter procedure ELIZABETH K [facility] Start: 09-28-2018 End: 09-29-2018 Patient encounter procedure ELIZABETH Alonso [facility] Start: 09-20-2018 End: 09-21-2018 Patient encounter procedure ELIZABETH Alonso [facility] Start: 09-07-2018 End: 09-08-2018 Patient encounter procedure ELIZABETH Alonso [facility] Start: 08-31-2018 End: 09-01-2018 [facility] Start: 08-21-2018 End: 08-24-2018 Patient encounter procedure SHARIFA N PANGULUR [facility] Start: 08-16-2018 End: 08-17-2018 Patient encounter procedure [facility] Start: 07-11-2018 End: 07-12-2018 Patient encounter procedure SHARIFA N PANGULUR [facility] Procedures Date Procedure Procedure Detail Performing [...] 03-07-2019 Glucose blood reagent strip Wolfgang Moe [employer] Work Phone: Start: 03-07-2019 Culture bacterial quanttative colony count urine Wolfgang Moe [employer] Work Phone: Start: 03-07-2019 Ct abdomen & [...] Start: 12-10-2018 DIET LOW SODIUM 2 GM SAHRIFA MEJÍALUR Start: 12-10-2018 FULL CODE SHARIFA MEJÍALUR [...] Start: 03-13-2020 Creatinine monitoring Creatinine mon itoring [place], [place] Start: 03-13-2020 Potassium monitoring Potassium monit [place]ing [place], [place] Start: 09-05-2019 A1C test (Diabetic o r Prediabetic) A1C test (Diabetic or Prediabetic) [place], [place] Start: 06-27-2019 DTaP/Tdap/Td vaccine (1 - Tdap) DTaP/Tdap/Td vaccine (1 - Tdap) [place] Comment on above: Postponed from 03/25 (Insurance / Financial) Start: 04-20-2019 End: 04-20-2019 Office Visit 04/20/2019 Office Visit Urology Bryant Eller MD [address] [place] [address] [phone] [facility] [place] Start: 02-25-2019 Influenza vaccination Flu vaccine (# 1) [place], [place] Start: 11-22-2018 Annual Wellness Visi t (AWV) [facility] Start: 11-30-2017 [object Object] Diabetic foot [facility] Start: 05-28-2017 Lipid screen [facility] screen [facility] Start: 05-26-2016 Diabetic retinal exam Diabetic retin al exam [facility] Start: 03-22-2016 Shingles Vaccine (2 of 3) Shingles Vaccine (2 of 3) [place], [place] Basic Metabolic Pane l w/ Reflex to MG Basic Metabolic Panel w/ Reflex to MG Lab Routine Daily until discontinued starting 03/08/2019, 6 completed [place], [place] Comment on above: Daily until disconti nued starting 03/08/2019, 6 completed HHN Treatment HHN Treatment Respiratory Care Routine Every 4hr while awake until discontinued starting 03/08/2019 [place] Comment on above: Every 4hr while awak e until discontinued starting 03/08/2019 Initiate Oxygen Ther apy Protocol Initiate Oxygen Therapy Protocol Respiratory Care Routine Daily until discontinued starting 03/07/2019 [place] Comment on above: Daily until disconti nued starting 03/07/2019 POCT glucose [place], [place] Comment on above: 4X Daily (AC & HS) u ntil discontinued starting 03/08/2019 As Needed until disc ontinued starting 03/07/2019 Immunizations Immunization Date Immunization Notes Care Provider Richar crawley 03-10-2020 influenza virus vaccine, unspecified formulation SANDY CESAR [facility] Comment on above: Result Comment: 2023: VIS DATE: 02/08/2019 04-27-2019 influenza, unspecifi ed formulation SANDY CESAR [facility] Comment on above: Result Comment: 2023: EXTERNAL ADMIN: PT RPT 03-10-2018 influenza virus vaccine, unspecified formulation SANDY CESAR [facility] Comment on above: Result Comment: 2023: VIS DATE: 01/31/2015 03-10-2018 influenza, injectabl e, quadrivalent, preservative free [facility], [place] 02-22-2017 influenza virus vaccine, unspecified formulation SANDY CESAR [facility] Comment on above: Result Comment: 2023: VIS DATE: 01/31/2015 02-22-2017 influenza, injectabl e, quadrivalent, contains preservative [facility], [place] 10-01-2016 pneumococcal conjuga te vaccine, [address] [facility], [place] 04-01-2016 influenza, injectabl e, quadrivalent, contains preservative [facility], [place] 01-26-2016 zoster vaccine, live [facility], [place] 01-02-2016 zoster vaccine, live [facility] 05-26-2015 influenza virus vaccine, unspecified formulation [facility], [place] 05-27-2014 pneumococcal polysaccharide vaccine, 23 valent [facility] 05-10-2013 influenza virus vaccine, unspecified formulation [facility] 05-11-2012 influenza virus vaccine, unspecified formulation [facility], [place] 06-10-2011 influenza virus vaccine, unspecified formulation [facility], [place] 05-19-2010 influenza virus vaccine, unspecified formulation [facility], [place] 04-17-2004 influenza virus vaccine, unspecified formulation SANDY CESAR [facility] 06-24-2003 pneumococcal polysaccharide vaccine, 23 valent SANDY CESAR [facility] 04-24-2003 pneumococcal polysaccharide vaccine, 23 valent SANDY CESAR [facility] 12-21-2000 hepatitis B vaccine, adult dosage SANDY CESAR [facility] 07-06-2000 hepatitis B vaccine, adult dosage SANDY CESAR [facility] 06-03-2000 hepatitis B vaccine, adult dosage SANDY CESAR [facility] Payers Date Payer Category Payer Unknown BC BCBS xxxxxx [id number] 2022-Present [phone] [address] [place] [address] [id number] 2015 Medicare BCBS MEDICARE AN THEM MEDIBLUE ESSENTIAL/PLUS xxxxxxxxxxxx 2015-Present [address] [address] [place] [address] xxxxxxxxxxxx [id number] 2015 Medicare [id number] 1937 Unknown [id number] 2.16.840.1.131226.3.579.2. 1937 Unknown [id number] 2.16.840.1.134209.3.579.2. 1937 Unknown [id number] 2.16.840.1.390869.3.579.2. 1937 Unknown [id number] 2.16.840.1.954119.3.579.2.176 1937 Unknown [id number] 2.16.840.1.110763.3.579.2.176 1937 Unknown [id number] 2.16.840.1.126099.3.579.2.176 1937 Unknown [id number] 2.16.840.1.763824.3.579.2.176 1937 Unknown [id number] 2.16.840.1.454864.3.579.2.176 1937 Unknown [id number] 2.16.840.1.186562.3.579.2.176 1937 Unknown [id number] 2.16.840.1.583137.3.579.2.176 1937 Unknown [id number] 2.16.840.1.753144.3.579.2.176 1937 Unknown [id number] 2.16.840.1.433256.3.579.2.176 1937 Unknown [id number] 2.16.840.1.206916.3.579.2.176 1937 Unknown [id number] 2.16.840.1.708538.3.579.2.176 1937 Unknown [id number] 2.16.840.1.443786.3.579.2.176 1937 Unknown [id number] 2.16.840.1.624194.3.579.2.176 1937 Unknown [id number] 2.16.840.1.974953.3.579.2.176 1937 Unknown [id number] 2.16.840.1.270947.3.579.2.727 1937 Unknown [id number] 2.16.840.1.037019.3.579.2.727 1937 Unknown [id number] 2.16.840.1.780254.3.579.2.727 Social History Date Type Detail Facility Start: 03-07-2019 End: 09-13-2023 Tobacco smoking status NHIS Former smoker [facility] End: 06-27-1967 History of tobacco use Current smoker [place], [place] Start: 03-07-2019 End: 03-16-2019 Cigarettes smoked current (pack per day) - Reported [place], [place] Start: 03-07-2019 End: 03-16-2019 Alcohol intake No [facility] Start: 01-06-2015 Tobacco Comment quit over 50 years a go [place], [place] Start: 1935 Sex Assigned At Not on file M [place] [facility] Functional Status Date Assessment Result Facility 09-13-2023 Functional Status N/A [facility] 09-06-2023 Functional Status N/A [facility] Discharge instructions 09-13-2023 Note Date & Type [...] Follow these instructions at home: Medicines Take epos-qia-prnzcul and prescription medicines only as told by [...] or the blood stops without treatment. Take qrpy-grx-vuqkids and prescription medicines only as told by your health care provider. Drink enough fluid to keep your urine pale yellow. This information is not intended to replace advice given to you by your health care provider. Make sure you discuss any questions you have with your health care provider. Document Revised: 02/11/2021 Document Reviewed: 02/11/2021 [employer] Patient Education 2022 [employer]. Follow Up Care 09/07/2023 09:39:22 With:4 weeks [place] location for so wick JP Address:Unknown When: Unknown [facility] Discharge instructions 09-06-2023 Note [...] Follow these instructions at home: Medicines Take sidt-ppc-vrrwuxh and prescription medicines only as told by [...] is important. Where to find more information [place] [employer] Patients: www.aakp.org National Kidney Foundation: www.kidney.org [employer]: www.akfinc.org Life Options: www.lifeoptions.org Kidney [...] provider. Document Revised: 09/17/2020 Document Reviewed: 09/17/2020 [employer] Patient Education 2022 [employer]. Follow Up Care 09/06/2023 08:19:47 With:SANDY CESAR PA-C, URL Address: [address] [facility] [place] [address] When: Unknown Comments:schedule cath change once we have consent [facility] Evaluation + Plan note Note Date & Type Note Facility Evaluation + Plan note No data available for this section [facility] Evaluation + Plan note Note Date & Type Note Facility Evaluation + Plan note Future Appointments Appointment Date:10/10/2023 01:40:00 PM Scheduled Provider:SANDY CESAR PA-C Location[facility] [place] Appointment Type:URO Office Visit [facility] Progress note Note Date & Type Note Facility Progress note No data available for this section [facility] Discharge Instructions * Discharge Instr - [...] Agent's Name Healthcare Agent's Phone Number 03/07/19 [phone] Yes, patient has an advance directive for healthcare treatment Admitting Physician: Talia Pastor MD PCP: Talia Pastor MD Discharging Nurse: Anca RN Discharging Hospital Unit/Room#: 2043/2043-01 Discharging Unit Emergency Contact: Extended Emergency Contact Information Primary Emergency Contact: Alvin Neville Relation: Child Secondary Emergency Contact: Aleksandra Neville [facility] Mobile Relation: None Past Surgical History: [...] and older Afluria) 03/10/2018 Pneumococcal Conjugate 13-valent (Ussnuif27) 10/01/2016 Pneumococcal Polysaccharide (Khqngbxdc11) 05/27/2014 Zoster Live (Zostavax) 01/02/2016, 01/26/2016 Active Problems: Patient Active Problem List Diagnosis Code Benign essential hypertension I10 Renal cyst N28.1 SVT (supraventricular tachycardia) ([facility]) I47.1 Uncontrolled type 2 diabetes mellitus without complication, with long-term current use of insulin ([facility]) E11.65, Z79.4 Atrial fibrillation ([facility]) I48.91 Hx of simple renal cyst Z87.448 Body mass index (BMI) of 23.0-23.9 in adult Z68.23 Hypomagnesemia E83.42 Diverticulosis K57.90 Acute blood loss anemia D62 CHF with cardiomyopathy ([facility]) I50.9, I42.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 Chronic diastolic heart failure, NYHA class 2 ([facility]) I50.32 CKD (chronic kidney disease) stage 3, GFR 30-59 ml/min ([facility]) N18.3 Hypercholesteremia E78.00 Mild pulmonary [...] Wt 150 lb 9.2 oz (68.3 kg) JtS513% BMI 21.61 kg/m Last documented pain score (0-10 scale): Pain Level: 3 Last Weight: Wt Readings from Last 1 Encounters: 03/09/19 150 lb 9.2 oz (68.3 kg) Mental Status: oriented and alert IV Access: - None Nursing Mobility/ADLs: Walking Assisted Transfer Assisted Bathing Assisted Dressing Assisted Toileting Assisted Feeding Assisted Inside Horticultural Specialty Grower Assisted Med Delivery whole Wound Care Documentation [...] [facility] Address: [address] [facility] [address] diabetes education coordinator crystal [phone] Fax: Antique Jewelry Repairer/Cleaning Associate signature: ICIAN SECTION Prognosis: Guarded Condition [...] medications. --- Having trouble affording medications? Try [employer]! (This is not a hospital endorsed website, merely a recommendation based on my own personal experiences with [facility]) --- Questions? Contact me anytime. Javier Devries MD, JAYSON --- --- * Attachments The following attachments cannot be sent through Care Everywhere. * Urinary Retention (German) documented in this encounter History of Present [...] Donald OTA - 03/12/2019 10:40 AM EDT [facility] OCCUPATIONAL THERAPY MISSED TREATMENT NOTE INPATIENT [...] in the note per my discussion with CLIENT EXPERIENCE MANAGER * Talia Pastor MD - 03/11/2019 1:42 [...] Daily Talia Pastor MD 40 mg at 03/11/1936 diltiazem (CARDIZEM CD) extended release capsule 240 [...] Daily Talia Pastor MD 40 mg at 03/11/1938 insulin glargine (LANTUS) injection vial 10 Units [...] solution 2.5 mg 2.5 mg Nebulization Q4H LA Talia Pastor MD 2.5 mg at 03/11/19 1052 sodium chloride flush 0.9 % injection 10 mL 10 mL Intravenous 2 times per day Talia Pastor MD 10 mL at 03/11/19 0942 sodium chloride flush 0.9 % injection 10 mL 10 mL Intravenous PRN Talia Pastor MD magnesium hydroxide (MILK OF MAGNESIA) 400 MG/5ML suspension 30 mL 30 mL Oral Daily PRN Tlaia Pastor MD ondansetron (ZOFRAN) injection 4 mg [...] kidney disease) stage 3, GFR 30-59 ml/min ([facility]) Mild pulmonary hypertension (HCC) Presence of Watchman [...] in the note per my discussion with CLIENT EXPERIENCE MANAGER * Andrew [place] MD - 03/11/2019 11:25 AM EDT [facility] Physicians Cardiology (PPC) Progress Note [...] Subcutaneous Nightly albuterol 2.5 mg Nebulization Q4H LA sodium chloride flush 10 mL Intravenous 2 [...] 03/10/2019 11:46 AM EDT Physical Therapy Facility/Department: [facility] Daily Treatment Note NAME: [...] [place] MD - 03/10/2019 10:48 AM EDT [facility] Cardiology (PPC) Progress Note 03/10/2019 10:48 [...] Problem: Pneumonia Active Problems: SVT (supraventricular tachycardia) ([facility]) Benign essential hypertension Uncontrolled type [...] and corrected by editing. ANDREW DUNCAN MD [facility] * Talia Pastor MD - 03/10/2019 10:31 [...] Talia Pastor MD 0.8 mg at 03/09/19 0915 vitamin E capsule 400 Units 400 Units [...] solution 2.5 mg 2.5 mg Nebulization Q4H LA Talia Pastor MD 2.5 mg at 03/10/19 [...] Problem: Pneumonia Active Problems: SVT (supraventricular tachycardia) ([facility]) Benign essential hypertension Uncontrolled type [...] of care discussed with Dr Bart HUERTA, GRAIN ELEVATOR MOTOR STARTER - ACID SUPERVISOR REASON FOR VISIT: Pl effusion, dyspnea I examined the patient myself The assessment and Plan in the note per my discussion with CLIENT EXPERIENCE MANAGER * Andrew Duncan MD - 03/09/2019 5:32 PM EDT [facility]) Progress Note 03/09/2019 [...] and corrected by editing. ANDREW DUNCAN MD [facility] * Dayan Ledbetter, PT - 03/09/2019 3:33 PM EDT Physical Therapy REVISED GOALS [facility] Date: 03/09/19 Patient Name: Juan Ramon Neville Room: - Account: [id number] : 1935 (83 y.o.) Gender: male 03/09/19 [...] w/ CGA x 1 * Megan Jackson, PRINT DECORATOR - 03/09/2019 12:31 PM EDT Physical Therapy [facility] Physical Therapy Progress Note Date: 03/09/19 Patient Name: Juan Ramon Neville Room: Account: [id number] : 1935 (83 y.o.) Gender: male Discharge [...] states pt had been using O2 at [facility], walking with RW (had Rollator at home for 1 wk before pt developed PNA, admitted to [facility]); CHF is at point where fluid [...] exercises 1: Seated B LE ther ex, AROM/lac courte oreilles resistance band, 15x each Other exercises 2: [...] Lagunas, OT - 03/09/2019 10:56 AM EDT [facility] Occupational Therapy Evaluation Date: 03/09/19 Patient Name: Juan Ramon Neville Room: Account: [id number] : 1935 (83 y.o.) Gender: male Discharge [...] Assistance: Independent(uses RW) Transfer Assistance: Independent Active Smoke Jumper Supervisor: Yes Mode of Transportation: Car Occupation: Retired Additional Comments: Pt and Pt's daughter report that he has been at [facility] since Mid-December. Pt has been [...] Patient Tolerated treatment well Functional Outcome Measures [facility] Daily Activity Inpatient How much help [...] much help for eating meals?: A Little [facility] Inpatient Daily Activity Raw Score: 18 [facility] Inpatient ADL T-Scale Score : 38.66 ADL Inpatient CMS 0-100% Score: 46.65 ADL Inpatient [facility] G-Code Modifier : CK Goals Patient [...] Subcutaneous Nightly albuterol 2.5 mg Nebulization Q4H LA sodium chloride flush 10 mL Intravenous 2 [...] ABGs: No results for input(s): PHART, PO2ART, NAU3ZNE, CPC5ASR, BEART, X2KMJDZD, GHF3HXD in the last 72 hours. PT/INR: No [...] Daily Talia Pastor MD 125 mcg at 03/08/19824 fenofibrate tablet 160 mg 160 mg Oral Daily Talia Pastor MD 160 mg at 03/08/19824 finasteride (PROSCAR) tablet 5 mg 5 mg Oral Daily Talia Pastor MD 5 mg at 03/08/19824 furosemide (LASIX) tablet 40 mg 40 mg Oral Daily Talia Pastor MD 40 mg at 03/08/1925 insulin glargine (LANTUS) injection vial 10 Units [...] solution 2.5 mg 2.5 mg Nebulization Q4H LA Talia Pastor MD 2.5 mg at 03/09/19 [...] PM EDT SW spoke to Crystal from [facility]. She will start the pre-cert for pt's return to facility. * Dayan Ledbetter, PT - 03/08/2019 9:39 AM EDT Physical Therapy Facility/Department: [facility] Initial Assessment NAME: Juan [...] walker- up independently) Transfer Assistance: Independent Active Smoke Jumper Supervisor: Yes Mode of Transportation: Car Occupation: Retired [...] bed, Nurse notified(nurse Cavazos) G-Code OutComes Score [facility] Score [facility] Inpatient Mobility Raw Score : 8 (03/08/19849) [facility] Inpatient T-Scale Score : 28.52 (03/08/19849) Mobility Inpatient CMS 0-100% Score: 86.62 (03/08/19849) Mobility Inpatient [facility] G-Code Modifier : CM (03/08/19849) Goals [...] noted at this time * Michelle Mei [facility] - 03/07/2019 8:49 PM EDT Medication [...] facility list. Thank you, Michelle Mei PharmD, [facility] [phone] documented in this encounter* Michelle Mei RPH - 03/27/2019 6:32 PM EDT Medication History completed: New medications: none Medications discontinued: none Changes to dosing: Fenofibrate changed to nightly Furosemide changed to twice daily Potassium chloride changed to ER tablet formulation Stated allergies: As listed Other pertinent information: Medications confirmed with facility list. Thank you, Michelle Mei PharmD, [facility] [phone] documented in this encounter Assessments Diagnosis Pneumonia- Primary Pneumonia, organism unspecified VANESA (acute kidney injury) ([facility]) Acute kidney failure, unspecified Pneumonia due to organism Pneumonia due to other specified organism Acute cystitis without hematuria Acute cystitis Atrial fibrillation ([facility]) Atrial fibrillation Benign essential hypertension Essential hypertension, benign Chronic diastolic heart failure, NYHA class 2 ([facility]) Chronic diastolic heart failure CKD (chronic kidney disease) stage 3, GFR 30-59 ml/min ([facility]) Chronic kidney disease, Stage III (moderate) CHF with cardiomyopathy (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) Other specified cardiac dysrhythmias Uncontrolled type 2 diabetes mellitus without complication, with long-term current use of insulin (HCC) Urinary retention due to benign prostatic hyperplasia Diagnosis Acute kidney injury (HCC)- Primary Acute kidney failure, unspecified Diagnosis Acute urinary retention- Primary Other specified retention of urine Advance Directives No Advanced Directives Records FoundDocuments on File Type Date Recorded Patient Installation Superintendent Expl anation Advance Directives and Livin g Will 03/07/2018 9:31 AM MBFP Advance Directives and Livin g Will 01/09/2015 10:42 AM Power of Time Piece Repairer Power of Time Piece Repairer 01/09/2015 10:42 AM Latest Code Status on [...] To Contact Diagnoses Pneumonia Talia Pastor MD [address] [id number] [facility] Reason Comments Abnormal Lab Creatinine: 2.83 Reason Comments Urinary Retention (unrecognized sect ion and content) No Status Records FoundNo Status Records Found INFORMATION SOURCE (unrecogn ized section and content) DATE CREATED AUTHOR 03/28/2019 [facility] DATE CREATED AUTHOR AUTHOR'S ORGANIZ ATION 10/09/2023 [facility] Patient Care team informatio n (unrecognized section and content) Personnel Name: WALDEMAR ORTA MD Address: Address: [address] [place] [address] Personnel Name: WALDEMAR ORTA MD Address: Address: [address] [place] [address] FOR RECORDS PERTAINING TO PATIENTS WHO ARE [...] BE BASED ON THE PRIMARY CLINICAL RECORDS. [facility] [employer] [facility]. provides no warranty or guarantee of the accuracy or completeness of information in this document.
[2023-10-10 09:36] LABS: Basophils Percent Auto 0.4 % (0.2-2.0); Eosinophils Absolute Auto 0.6 10^3/uL (0.0-0.7); Eosinophils Percent Auto 6.3 % (0.9-7.0); Hemoglobin 13.6 g/dL (14.0-18.0); Immature Granulocytes Abs Auto 0.06 10^3/uL (0.00-0.03); Immature Granulocytes Pct Auto 0.6 % (0.0-0.5); Lymphocytes Absolute Auto 2.2 10^3/uL (1.2-3.8); Lymphocytes Percent Auto 21.4 % (20.5-60.0); Mean Corpuscular HGB Conc 31.6 g/dL (29.9-35.2); Mean Corpuscular Hemoglobin 31.1 pg (25.9-34.0); Mean Corpuscular Volume 98.2 fL (80.0-94.0); Mean Platelet Volume 12.2 fL (9.5-13.5); Monocytes Absolute Auto 0.8 10^3/uL (0.3-0.8); Monocytes Percent Auto 8.1 % (1.7-12.0); Neutrophils Absolute Auto 6.4 10^3/uL (1.4-6.5); Neutrophils Percent Auto 63.2 % (43.0-75.0); Platelet Count 282 10^3/uL (150-450); Red Blood Count 4.38 10^6/uL (4.70-6.10); Red Cell Distribution Width 16.4 % (11.0-15.0); White Blood Count 10.1 10^3/uL (4.0-11.0)
[2023-10-10 09:39] LABS: Anion Gap 13.6; BUN Creatinine Ratio 20.3; Calcium 9.4 mg/dL (8.5-10.1); Carbon Dioxide 26.4 mmol/L (21.0-32.0); Chloride 105 mmol/L (98-107); Estimated GFR (African America 28 (>=60); Estimated GFR (Non-African Ame 23 (>=60); Sodium 140 mmol/L (136-145)
[2023-10-10 10:14] LABS: Glucose 49 mg/dL (74-106)
== END 2023-10-10 04:42 | disposition home or self-care (01) ==
LOC: LAB 04:41
PROVIDERS: PCP Family Medicine; Visit Provider Nurse Practitioner Family
DX: E11.22 Type 2 diabetes mellitus with diabetic chronic kidney disease (principal); I50.32 Chronic diastolic (congestive) heart failure; E03.9 Hypothyroidism, unspecified; N18.30 Chronic kidney disease, stage 3 unspecified
CPT/HCPCS: 36415; 80048; 83880; 85025